=== PATIENT | male | born 1960 | race Caucasian/White ===

== ENCOUNTER 2020-08-10 20:47 | Inpatient (IN) | payer MEDICAID ==
[~2020-08-10] VITALS: Ht 165.1 cm; Wt 62.6 kg
[2020-08-10 20:00] VITALS: BP 140/88
--- NOTE | 2020-08-10 20:30 | NUR ---
Admitted patient from [facility], with history of Stroke, Anoxic brain encephalopathy, DM, seizure, Atrial Fibrillation, Atherosclerosis of the Aorta, COPD, history of major depression, diverticulosis of the colon, Tobacco use, myoclonus, left ventricular diastolic dysfunction, Lactic acidosis, respiratory failure, currently on tracheostomy on cool aerosol, Gastrostomy placement, on GT feeding of vital 1.2 @ 75ml/hr [id number] infusing well, no nausea or vomiting noted, noted with multiple discolorations of the left and right arms and pitting edema 3+ on both hands, elevated on pillows. Trach is intact and patent, suctioned with yellow thick secretions,no respiratory distress noted. Patient is is non- verbal and non-responsive, noted with a tattoo on his left chest, Noted with left plantar corn- no treatment indicated right now, will monitor. Initiated treatments to sacral area open skin, left forearm scab, and left antecubital open skin, and both heels dryness. Turned and repositioned patient, kept clean and comfortable.
[2020-08-10] MEDS ORDERED: levETIRAcetam 500 MG TABLET PO SCH (22:30)
[2020-08-10] MEDS: DOCUSATE SODIUM 100 MG/10 ML LIQUID UDC GT SCH (22:30)
[2020-08-10] MEDS ORDERED: POLYVINYL ALCOHOL OPHT DROPS 15 ML BOTTLE EACHEYE PRN (22:30)
[2020-08-10] MEDS: COD LIVER OIL/ZINC OXIDE OINT 113 GM TUBE TOP SCH (22:30)
[2020-08-10] MEDS ORDERED: ONDANSETRON 4 MG/2 ML VIAL IV PRN (22:30)
[2020-08-10] MEDS: VITAL AF 1.2 1,000 ML LIQUID GT PRN (23:00)
[2020-08-11] VITALS: BP 131/83
[2020-08-11] MEDS: BLOOD SUGAR DIAGNOSTIC 1 EACH STRIP VI SCH ×5 (00:54→23:29)
[2020-08-11] MEDS: INSULIN REGULAR, HUMAN 300 UNIT/3 ML VIAL SQ PRN ×4 (00:55→18:03)
[2020-08-11] MEDS: COD LIVER OIL/ZINC OXIDE OINT 113 GM TUBE TOP SCH ×5 (02:45→21:00)
[2020-08-11] MEDS: VITAMINS A AND D OINT TP SCH ×3 (02:45→21:00)
[2020-08-11] MEDS: NEOMY/BACITRAC/POLYMI OINT 28.35 GM TUBE TOP SCH ×4 (02:45→09:00)
[2020-08-11] MEDS: ACETAMINOPHEN 650 MG/20.3 ML LIQUID UDC GT PRN (05:00)
[2020-08-11 06:00] VITALS: BP 150/83
--- NOTE | 2020-08-11 07:11 | NUR ---
Left Message to patient's daughter to call back.
[2020-08-11 07:38] VITALS: BP 167/83
[2020-08-11] MEDS: THIAMINE HCL 100 MG TABLET GT SCH (09:00)
[2020-08-11] MEDS: FAMOTIDINE 20 MG TABLET GT SCH ×2 (09:00→21:00)
[2020-08-11] MEDS ORDERED: CHLORHEXIDINE GLUCONATE 15 ML MOUTHWASH MM SCH (09:00)
[2020-08-11] MEDS: CHLORHEXIDINE GLUCONATE 4% TOP SOL 118 ML TP SCH (09:00)
[2020-08-11] MEDS ORDERED: levETIRAcetam 500 MG TABLET GT SCH (09:00)
[2020-08-11] MEDS ORDERED: TUBERCULIN,PURIF.PROT.DERIV. 5 TU/0.1 ML TEST ID SCH (09:00)
[2020-08-11] MEDS ORDERED: MISCELLANEOUS MED XX SCH (09:00)
[2020-08-11] MEDS: LABETALOL HCL 100 MG TABLET GT SCH (09:00)
[2020-08-11] MEDS: DOCUSATE SODIUM 100 MG/10 ML LIQUID UDC GT SCH ×2 (09:00→21:00)
--- NOTE | 2020-08-11 10:59 | NUR ---
WOUND CARE CONSULT: PT PRESENTS WITH CALLUS TO LEFT PLANTAR FOOT AND SACRAL STAGE 2 ULCER WITH SURROUNDING INTACT DEEP TISSUE INJURY, PRESENT ON ADMISSION. RECOMMENDATIONS MADE FOR SKIN PROTECTION AND WOUND CARE. DISCUSSED WITH NURSING STAFF. STAGE 2 ULCER MEASURES 0.5CM X 0.5CM X 0.1CM WITH NO DRAINAGE, NO ODOR AND PERIWOUND INTACT DTI (DARK RED). RECOMMEND USE HYDROGEL AND FOAM DRESSING, OFFLOADING. PT IS ON FIRST STEP [facility] AIRLOSS MATTRESS. IN AGREEMENT WITH PLAN OF CARE.
[2020-08-11 12:00] VITALS: BP 139/79
--- NOTE | 2020-08-11 12:53 | NUR ---
Seen and examined by the wound home day care provider with new orders noted.Pt and Ot evaluation done,new orders noted and carried out.
[2020-08-11] MEDS ORDERED: HYDROGEN PEROXIDE 3% 118 ML BOTTLE TP PRN (13:45)
[2020-08-11 17:28] VITALS: BP 116/76
[2020-08-11 17:38] LABS: ABG BASE EXCESS 3.3 mmol/L; ABG HCO3 27.6 mmol/L; ABG PCO2 41.1 mmHg (35.0-45.0); ABG PH 7.445 (7.350-7.450); ABG PO2 70.7 mmHg (75.0-100.0); ABG SITE RIGHT RADIAL; ABG TOTAL HEMOGLOBIN 14.2 G/dL (13.5-18.0); COHb 1.4 % (0.5-1.5); MetHb 0.2 % (0.0-1.5); O2Hb 92.1 % (94.0-97.0)
[2020-08-11] MEDS ORDERED: IPRATROPIUM BROMIDE 0.5 MG/2.5 ML NEBU NEB PRN (18:30)
[2020-08-11] MEDS ORDERED: ALBUTEROL SULFATE 2.5 MG/3 ML NEBU NEB PRN (18:30)
--- NOTE | 2020-08-11 18:31 | NUR ---
Seen by Dr Peralta,notified about pt condition with new orders noted.evaluate the EKG,ABG and CXR done for tachycardia and sob,no further orders noted.
--- NOTE | 2020-08-11 18:33 | NUR ---
Dr Jimenez Release Coordinator notified regarding the consult for L plantar foot skin changes.He examined the pictures and will evaluate patient after he is out of isolation.
[2020-08-11 20:00] VITALS: BP 109/73
[2020-08-11] MEDS: CHLORHEXIDINE GLUCONATE 15 ML MOUTHWASH MM SCH (21:00)
[2020-08-11] MEDS: ATORVASTATIN 40 MG TABLET GT SCH (21:00)
[2020-08-11] MEDS ORDERED: ATORVASTATIN 40 MG TABLET PO SCH (21:00)
[2020-08-11] MEDS: COD LIVER OIL/ZINC OXIDE OINT 113 GM TUBE TP SCH (21:00)
[2020-08-11] MEDS: MINERAL OIL/PETROLAT OPHT OINT 3.5 GM TUBE EACHEYE SCH (21:00)
[2020-08-11] MEDS: levETIRAcetam 500 MG/5 ML LIQUID UDC GT SCH (21:00)
[2020-08-11] MEDS: HYDROGEN PEROXIDE 3% 118 ML BOTTLE TP SCH (21:50)
[2020-08-11] MEDS: VITAL AF 1.2 1,000 ML LIQUID GT PRN (23:00)
[2020-08-12] VITALS: BP 134/71
[2020-08-12] MEDS: ACETAMINOPHEN 650 MG/20.3 ML LIQUID UDC GT PRN ×2 (02:00→05:00)
[2020-08-12 04:45] VITALS: BP 143/77
[2020-08-12] MEDS: BLOOD SUGAR DIAGNOSTIC 1 EACH STRIP VI SCH ×3 (05:20→17:04)
[2020-08-12 05:22] LABS: BASOPHILS % (AUTO) 0.3 % (0.0-2.0); EOSINOPHILS # (AUTO) 0.1 K/uL (0.0-0.7); EOSINOPHILS % (AUTO) 1.4 % (0.0-7.0); HEMATOCRIT 31.5 % (36.7-47.1); HEMOGLOBIN 10.9 g/dL (12.5-16.3); LYMPHOCYTES # (AUTO) 1.5 K/uL (20.0-40.0); LYMPHOCYTES % (AUTO) 19.8 % (20.5-51.5); MEAN CORPUSCULAR HGB CONC 35 g/dL (32.5-36.3); MEAN CORPUSCULAR VOLUME 89.7 fL (73.0-96.2); MONOCYTES # (AUTO) 0.8 K/uL (2.0-10.0); NEUTROPHILS # (AUTO) 5.2 K/uL (1.8-8.9); NEUTROPHILS % (AUTO) 67.5 % (38.5-71.5); PLATELET COUNT (AUTO) 285 K/uL (152-348); RED BLOOD CELL COUNT(AUTO) 3.51 MIL/uL (4.06-5.63); WHITE BLOOD COUNT (AUTO) 7.7 K/uL (3.6-10.2)
[2020-08-12] MEDS ORDERED: VANCOMYCIN IV 1,000 MG in IV DEXTROSE 5% 250 ML IV ONE (06:00)
--- NOTE | 2020-08-12 06:00 | NUR ---
I called [facility] about the IV antibitic orders to check if meds are covered and If I can get it from the E- kit but the person who answered stated that IV pharmacist are not in yet.
--- NOTE | 2020-08-12 06:00 | NUR ---
Patient noted to be hot to touch, checked temperature and is 102 axillary, rechecked rectally and still 102*F, trach intact and patent, no respiratory distress, suctioned with thick secretions. Cold compress done, Tylenol given as ordered, called Dr. Bauer, awaiting for Doctor to call back. Addendum: 08/12/20 at 0604 by ISRRAEL ESTEVES RN Dr. Bauer called back with new orders to do blood cultures X 2, CXR, Vancomycin 1 gram IVPB X1, then Pharmacy to dose and Zosyn 3. 375 grams IVPB every 8 hours per protocol for fever, noted and carried out. Addendum: 08/12/20 at 0605 by ISRRAEL ESTEVES RN Paged Dr. Bauer RE: To clarify Zosyn order, Patient is allergic to Penicillin and ordered Zosyn.
--- NOTE | 2020-08-12 06:24 | NUR ---
Dr. Bauer called and he discontinued Zosyn and ordered Merrem 500mg IVPB X 1 dose.
[2020-08-12 07:39] VITALS: BP 151/81
[2020-08-12 07:53] LABS: ALANINE AMINOTRANSFERASE 74 U/L (16-63); ALKALINE PHOSPHATASE 157 U/L (50-136); ASPARTATE AMINOTRANSFERASE 45 U/L (15-37); BILIRUBIN,TOTAL 0.2 mg/dL (0.2-1.0); CARBON DIOXIDE 30 mmol/L (21-32); CHLORIDE 96 mmol/L (98-107); CREATININE 0.5 mg/dL (0.6-1.3); GLUCOSE 179 mg/dL (74-106); PHOSPHOROUS 2.8 mg/dL (2.5-4.9); POTASSIUM 3.9 mmol/L (3.5-5.1); TOTAL PROTEIN, SERUM 6.8 g/dL (6.4-8.2); UREA NITROGEN, BLOOD 23 mg/dL (7-18)
--- NOTE | 2020-08-12 08:16 | NUR ---
I spoke with patient's daughter Janis and notified her of patient having fever and new antibiotic order and she agreed with the plan of care,.
[2020-08-12] MEDS: THIAMINE HCL 100 MG TABLET GT SCH (09:00)
[2020-08-12] MEDS ORDERED: MEROPENEM 500 MG in IV NORMAL SALINE 50 ML IV ONE (09:00)
[2020-08-12] MEDS: LABETALOL HCL 100 MG TABLET GT SCH (09:00)
[2020-08-12] MEDS: HYDROGEN PEROXIDE 3% 118 ML BOTTLE TP SCH ×2 (09:14→21:15)
[2020-08-12] MEDS: DOCUSATE SODIUM 100 MG/10 ML LIQUID UDC GT SCH ×2 (09:17→21:00)
[2020-08-12] MEDS: levETIRAcetam 500 MG/5 ML LIQUID UDC GT SCH ×2 (09:17→21:00)
[2020-08-12] MEDS: COD LIVER OIL/ZINC OXIDE OINT 113 GM TUBE TOP SCH ×4 (09:17→21:00)
[2020-08-12] MEDS: CHLORHEXIDINE GLUCONATE 15 ML MOUTHWASH MM SCH ×2 (09:17→21:00)
[2020-08-12] MEDS: FAMOTIDINE 20 MG TABLET GT SCH ×2 (09:17→21:00)
[2020-08-12] MEDS: TERAZOSIN 1 MG CAPSULE GT SCH (09:17)
[2020-08-12] MEDS: PHENOBARBITAL 32.4 MG TABLET GT SCH (09:17)
[2020-08-12] MEDS: NEOMY/BACITRAC/POLYMI OINT 28.35 GM TUBE TOP SCH ×2 (09:21)
[2020-08-12] MEDS: COD LIVER OIL/ZINC OXIDE OINT 113 GM TUBE TP SCH ×2 (09:22→21:00)
[2020-08-12] MEDS: CHLORHEXIDINE GLUCONATE 4% TOP SOL 118 ML TP SCH (09:22)
[2020-08-12] MEDS: VITAMINS A AND D OINT TP SCH ×2 (09:23→21:00)
[2020-08-12] MEDS: ENOXAPARIN SODIUM 40 MG/0.4 ML DISP.SYRIN SQ SCH (10:51)
[2020-08-12] MEDS ORDERED: HYDROGEN PEROXIDE 3% 118 ML BOTTLE TP PRN (12:24)
[2020-08-12] MEDS: VITAL AF 1.2 1,000 ML LIQUID GT PRN (12:39)
[2020-08-12 13:08] VITALS: BP 136/75
--- NOTE | 2020-08-12 13:42 | NUR ---
Weighing Station Operator Assessment: 10:45am: This SW completed patient's initial assessment today. Patient is non-verbal, unresponsive, and therefore patient was not able to gather any information from the patient. SW called patients' daughter Janis, , and completed the assessment with Janis over the telephone. Patient is a 59 year old male, who was living in his home in [place], independent with all ADL's and IADL's, and working prior to his sudden medical decline. Janis reported that patient has a roommate, Carolyn, that lives in his house. Janis stated that patient was a very kind, fun-loving, and positive person. Patient's family includes 2 children (Janis and Daniel), 2 brothers (Jamal and Fernie) and his father and mother. Patient is and his ex- lives in [facility], although she is aware of his current medical condition. Family presents cooperative and supportive. SW discussed the admission paperwork with Janis, and Janis stated that she will go ahead and sign the forms. SW to coordinate getting the forms to Janis to sign. SW also discussed monthly IDT meetings, stating that the first one for the patient will be held on 08/17. Janis expressed desire to participate, and SW to coordinate. Healthcare Directive and Conservatorship discussed, and Janis stated that she thinks that the patient may have assigned Carolyn to be a POA, but she was not sure. This SW to follow up. However, Janis stated that they all makes decision together as a family. Patient's code status discussed, and Janis stated that the family's wishes are for patient to be a Full Code. ZOOM video calls discussed with Janis, and SW to email Janis the guidelines for ZOOM. SW to follow-up with Carolyn for additional information, and to follow up with Janis to coordinate the review and signatures for the admission paperwork.
--- NOTE | 2020-08-12 13:53 | NUR ---
11:46am: SW called patient's roommate Carolyn, . Carolyn was available and receptive to speaking with this SW. Carolyn stated that she, and her 19 year old son, have been living in the patient's home for 4 years. SW inquired about POA assignment, and Carolyn stated that she was recently informed by patient's corporate lawyer that patient had assigned her as POA, however she was not sure of the details. Carolyn also stated that she has known the patient for a very long time and feels like they are all family, and therefore she does not make decision on her own, but instead always involved Janis in all decisions. Carolyn stated that does not have any paperwork from the mica laminating machine feeder, and prefers for all coordination of care to go through Janis and patient's family. Carolyn was very cooperative and supportive. SW to coordinate with patient's family.
[2020-08-12 16:58] VITALS: BP 144/82
[2020-08-12] MEDS: INSULIN REGULAR, HUMAN 300 UNIT/3 ML VIAL SQ PRN (17:08)
[2020-08-12 20:00] VITALS: BP 133/72
[2020-08-12] MEDS: VANCOMYCIN IV 1,000 MG in IV DEXTROSE 5% 250 ML IV SCH (20:00)
[2020-08-12] MEDS: MINERAL OIL/PETROLAT OPHT OINT 3.5 GM TUBE EACHEYE SCH (21:00)
[2020-08-12] MEDS: ATORVASTATIN 40 MG TABLET GT SCH (21:00)
--- NOTE | 2020-08-12 22:00 | NUR ---
Patient is on Vancomycin for fever, no adverse reactions noted. Afebrile, still noted with yellow thick secretions, no signs of any respiratory distress noted, Fluids given as ordered, turned and repositioned, kept clean and comfortable.
[2020-08-13] VITALS: BP 143/76
[2020-08-13] MEDS: BLOOD SUGAR DIAGNOSTIC 1 EACH STRIP VI SCH ×4 (00:42→18:11)
[2020-08-13 04:16] VITALS: BP 150/79
[2020-08-13] MEDS: VITAL AF 1.2 1,000 ML LIQUID GT PRN (04:30)
[2020-08-13] MEDS: INSULIN REGULAR, HUMAN 300 UNIT/3 ML VIAL SQ PRN ×2 (05:41→11:36)
[2020-08-13] MEDS: HYDROGEN PEROXIDE 3% 118 ML BOTTLE TP SCH ×2 (07:33→21:40)
[2020-08-13 07:35] VITALS: BP 153/85
[2020-08-13 07:58] LABS: CARBON DIOXIDE 35 mmol/L (21-32); CHLORIDE 97 mmol/L (98-107); CREATININE 0.4 mg/dL (0.6-1.3); GLUCOSE 202 mg/dL (74-106); POTASSIUM 3.9 mmol/L (3.5-5.1); UREA NITROGEN, BLOOD 16 mg/dL (7-18)
[2020-08-13] MEDS: VANCOMYCIN IV 1,000 MG in IV DEXTROSE 5% 250 ML IV SCH ×2 (08:20→21:00)
[2020-08-13] MEDS: CHLORHEXIDINE GLUCONATE 4% TOP SOL 118 ML TP SCH (09:00)
[2020-08-13] MEDS: COD LIVER OIL/ZINC OXIDE OINT 113 GM TUBE TP SCH ×2 (09:00→21:39)
[2020-08-13] MEDS: VITAMINS A AND D OINT TP SCH ×2 (09:00→21:39)
[2020-08-13] MEDS: DOCUSATE SODIUM 100 MG/10 ML LIQUID UDC GT SCH ×2 (09:08→21:38)
[2020-08-13] MEDS: TERAZOSIN 1 MG CAPSULE GT SCH (09:09)
[2020-08-13] MEDS: FAMOTIDINE 20 MG TABLET GT SCH ×2 (09:10→21:38)
[2020-08-13] MEDS: levETIRAcetam 500 MG/5 ML LIQUID UDC GT SCH ×2 (09:10→21:38)
[2020-08-13] MEDS: THIAMINE HCL 100 MG TABLET GT SCH (09:15)
[2020-08-13] MEDS: LABETALOL HCL 100 MG TABLET GT SCH (09:15)
[2020-08-13] MEDS: CHLORHEXIDINE GLUCONATE 15 ML MOUTHWASH MM SCH ×2 (09:15→21:38)
[2020-08-13] MEDS: ENOXAPARIN SODIUM 40 MG/0.4 ML DISP.SYRIN SQ SCH (09:16)
[2020-08-13] MEDS: COD LIVER OIL/ZINC OXIDE OINT 113 GM TUBE TOP SCH ×4 (09:24→21:39)
[2020-08-13] MEDS: PHENOBARBITAL 32.4 MG TABLET GT SCH (09:26)
[2020-08-13] MEDS: NEOMY/BACITRAC/POLYMI OINT 28.35 GM TUBE TOP SCH ×2 (09:30)
--- NOTE | 2020-08-13 10:42 | NUR ---
DELANEY called patient's granddaughter Janis, . Janis was available and receptive to speaking with this SW. DELANEY inquired about Janis's availability for picking up with admission paperwork for review and signature. Janis stated that she will be available on Thursday 08/16 around 3:30pm to stop by the hospital lobby and machine operator hop picker the paperwork. DELANEY agreed, and stated that papers will be ready for Janis on Sunday afternoon. Addendum: 08/16/20 at 1633 by FEDERICO BALTAZAR Correction: Janis is patient's daughter, not the granddaughter
[2020-08-13 11:44] VITALS: BP 149/82
[2020-08-13] MEDS ORDERED: DEXTROSE 50% 50 ML DISP.SYRIN IV PRN (15:00)
[2020-08-13 17:00] VITALS: BP 150/76
--- NOTE | 2020-08-13 18:54 | NUR ---
Seen by Dr. Peralta, new orders carried out, cxr,cbc, bmp, procalcitonin, start Merrem 1G, Iv q8hrs x7 days.
[2020-08-13 20:00] VITALS: BP 131/73
[2020-08-13] MEDS: MEROPENEM 1 G in IV NORMAL SALINE 100 ML IV SCH (20:08)
[2020-08-13] MEDS: MINERAL OIL/PETROLAT OPHT OINT 3.5 GM TUBE EACHEYE SCH (21:38)
[2020-08-13] MEDS: ATORVASTATIN 40 MG TABLET GT SCH (21:38)
[2020-08-14] MEDS: BLOOD SUGAR DIAGNOSTIC 1 EACH STRIP VI SCH ×5 (00:23→23:48)
[2020-08-14] MEDS: INSULIN REGULAR, HUMAN 300 UNIT/3 ML VIAL SQ PRN ×4 (00:25→17:42)
--- NOTE | 2020-08-14 03:00 | NUR ---
started on merrem iv for fever, no adverse reaction noted,continue on vancomycin iv for fever, no adverse reaction noted, afebrile, no respiratory distress noted.
[2020-08-14] MEDS: MEROPENEM 1 G in IV NORMAL SALINE 100 ML IV SCH ×3 (04:05→21:30)
[2020-08-14 07:32] VITALS: BP 150/84
[2020-08-14] MEDS: VANCOMYCIN IV 1,000 MG in IV DEXTROSE 5% 250 ML IV SCH (08:00)
[2020-08-14] MEDS: CHLORHEXIDINE GLUCONATE 15 ML MOUTHWASH MM SCH ×2 (09:00→21:00)
[2020-08-14] MEDS: HYDROGEN PEROXIDE 3% 118 ML BOTTLE TP SCH ×2 (09:00→21:35)
[2020-08-14] MEDS: CHLORHEXIDINE GLUCONATE 4% TOP SOL 118 ML TP SCH (09:00)
[2020-08-14] MEDS: NEOMY/BACITRAC/POLYMI OINT 28.35 GM TUBE TOP SCH ×2 (09:00)
[2020-08-14] MEDS: COD LIVER OIL/ZINC OXIDE OINT 113 GM TUBE TP SCH ×2 (09:00→21:11)
[2020-08-14] MEDS: VITAMINS A AND D OINT TP SCH ×2 (09:00→21:11)
[2020-08-14] MEDS: DOCUSATE SODIUM 100 MG/10 ML LIQUID UDC GT SCH ×2 (09:05→21:06)
[2020-08-14] MEDS: levETIRAcetam 500 MG/5 ML LIQUID UDC GT SCH ×2 (09:06→21:06)
[2020-08-14] MEDS: TERAZOSIN 1 MG CAPSULE GT SCH (09:16)
[2020-08-14] MEDS: LABETALOL HCL 100 MG TABLET GT SCH (09:17)
[2020-08-14] MEDS: PHENOBARBITAL 32.4 MG TABLET GT SCH (09:17)
[2020-08-14] MEDS: FAMOTIDINE 20 MG TABLET GT SCH ×2 (09:17→21:10)
[2020-08-14] MEDS: THIAMINE HCL 100 MG TABLET GT SCH (09:18)
[2020-08-14] MEDS: ENOXAPARIN SODIUM 40 MG/0.4 ML DISP.SYRIN SQ SCH (09:20)
[2020-08-14] MEDS: COD LIVER OIL/ZINC OXIDE OINT 113 GM TUBE TOP SCH ×4 (09:21→21:11)
[2020-08-14 09:39] LABS: CARBON DIOXIDE 35 mmol/L (21-32); CHLORIDE 98 mmol/L (98-107); CREATININE 0.4 mg/dL (0.6-1.3); GLUCOSE 186 mg/dL (74-106); POTASSIUM 3.8 mmol/L (3.5-5.1); UREA NITROGEN, BLOOD 16 mg/dL (7-18)
[2020-08-14 13:00] VITALS: BP 140/76
--- NOTE | 2020-08-14 15:45 | NUR ---
video chat done with pt's daughter.
--- NOTE | 2020-08-14 16:00 | NUR ---
Spoke to Dr Rios to F/u the neurology consult ,he will came on sunday to evaluate the patient.
--- NOTE | 2020-08-14 18:00 | NUR ---
New orders for insert midline ,Midline inserted on the R upper arm by Wilfredo Champion,procedure tolerated well,midline patent,new orders for flushing and dressing change per protocol.
--- NOTE | 2020-08-14 19:00 | NUR ---
Continue on Ivatb ,merren and vancomycin for elevated temp,no adverse reaction noted.
[2020-08-14 20:00] VITALS: BP 134/68
[2020-08-14] MEDS: VANCOMYCIN IV 1,250 MG in IV DEXTROSE 5% 250 ML IV SCH (20:11)
[2020-08-14] MEDS: MINERAL OIL/PETROLAT OPHT OINT 3.5 GM TUBE EACHEYE SCH (21:06)
[2020-08-14] MEDS: ATORVASTATIN 40 MG TABLET GT SCH (21:10)
[2020-08-14] MEDS: VITAL AF 1.2 1,000 ML LIQUID GT PRN (23:49)
[2020-08-15] MEDS: MEROPENEM 1 G in IV NORMAL SALINE 100 ML IV SCH (04:09)
[2020-08-15] MEDS: BLOOD SUGAR DIAGNOSTIC 1 EACH STRIP VI SCH ×4 (05:29→23:37)
[2020-08-15 05:51] LABS: CARBON DIOXIDE 33 mmol/L (21-32); CHLORIDE 95 mmol/L (98-107); CREATININE 0.5 mg/dL (0.6-1.3); GLUCOSE 174 mg/dL (74-106); POTASSIUM 3.9 mmol/L (3.5-5.1); UREA NITROGEN, BLOOD 14 mg/dL (7-18)
--- NOTE | 2020-08-15 06:06 | NUR ---
right upper arm mid line patent, flushed per protocol, vancomycin 1250mg iv started, no adverse reaction noted.
[2020-08-15] MEDS: VANCOMYCIN IV 1,250 MG in IV DEXTROSE 5% 250 ML IV SCH (08:00)
[2020-08-15 08:14] VITALS: BP 119/88
[2020-08-15] MEDS: DOCUSATE SODIUM 100 MG/10 ML LIQUID UDC GT SCH ×2 (09:03→20:49)
[2020-08-15] MEDS: TERAZOSIN 1 MG CAPSULE GT SCH (09:06)
[2020-08-15] MEDS: THIAMINE HCL 100 MG TABLET GT SCH (09:06)
[2020-08-15] MEDS: PHENOBARBITAL 32.4 MG TABLET GT SCH (09:06)
[2020-08-15] MEDS: FAMOTIDINE 20 MG TABLET GT SCH ×2 (09:06→20:49)
[2020-08-15] MEDS: levETIRAcetam 500 MG/5 ML LIQUID UDC GT SCH ×2 (09:06→20:49)
[2020-08-15] MEDS: LABETALOL HCL 100 MG TABLET GT SCH (09:06)
[2020-08-15] MEDS: CHLORHEXIDINE GLUCONATE 15 ML MOUTHWASH MM SCH ×2 (09:06→20:49)
[2020-08-15] MEDS: NEOMY/BACITRAC/POLYMI OINT 28.35 GM TUBE TOP SCH ×2 (09:07)
[2020-08-15] MEDS: CHLORHEXIDINE GLUCONATE 4% TOP SOL 118 ML TP SCH (09:07)
[2020-08-15] MEDS: COD LIVER OIL/ZINC OXIDE OINT 113 GM TUBE TP SCH ×2 (09:07→20:50)
[2020-08-15] MEDS: VITAMINS A AND D OINT TP SCH ×2 (09:07→20:50)
[2020-08-15] MEDS: COD LIVER OIL/ZINC OXIDE OINT 113 GM TUBE TOP SCH ×4 (09:07→20:50)
[2020-08-15] MEDS: ENOXAPARIN SODIUM 40 MG/0.4 ML DISP.SYRIN SQ SCH (09:07)
[2020-08-15] MEDS: HYDROGEN PEROXIDE 3% 118 ML BOTTLE TP SCH ×2 (10:20→21:26)
[2020-08-15] MEDS: INSULIN REGULAR, HUMAN 300 UNIT/3 ML VIAL SQ PRN ×2 (11:52→17:37)
[2020-08-15] MEDS: VITAL AF 1.2 1,000 ML LIQUID GT PRN (12:35)
--- NOTE | 2020-08-15 17:53 | NUR ---
Vancomycin and Merren discontinue new orders for levaquin carried out for pneumonia.
--- NOTE | 2020-08-15 18:00 | NUR ---
Dr Rios neurologist didn't see the patient today,will f/u tomorrow.
[2020-08-15] MEDS: levoFLOXacin 500 MG TABLET GT SCH (20:00)
[2020-08-15 20:38] VITALS: BP 143/71
[2020-08-15] MEDS: MINERAL OIL/PETROLAT OPHT OINT 3.5 GM TUBE EACHEYE SCH (20:49)
[2020-08-15] MEDS: ATORVASTATIN 40 MG TABLET GT SCH (20:49)
[2020-08-16] MEDS: BLOOD SUGAR DIAGNOSTIC 1 EACH STRIP VI SCH ×3 (05:23→17:19)
[2020-08-16 06:44] LABS: BASOPHILS % (AUTO) 0.8 % (0.0-2.0); EOSINOPHILS # (AUTO) 0.1 K/uL (0.0-0.7); EOSINOPHILS % (AUTO) 3.1 % (0.0-7.0); HEMATOCRIT 32.4 % (36.7-47.1); HEMOGLOBIN 11.2 g/dL (12.5-16.3); LYMPHOCYTES # (AUTO) 1.3 K/uL (20.0-40.0); MEAN CORPUSCULAR HEMOGLOBIN 30.8 uug (23.8-33.4); MEAN CORPUSCULAR HGB CONC 35 g/dL (32.5-36.3); MEAN CORPUSCULAR VOLUME 88.9 fL (73.0-96.2); MONOCYTES # (AUTO) 0.5 K/uL (2.0-10.0); MONOCYTES % (AUTO) 11.6 % (0.0-11.0); NEUTROPHILS # (AUTO) 2.3 K/uL (1.8-8.9); NEUTROPHILS % (AUTO) 54.5 % (38.5-71.5); PLATELET COUNT (AUTO) 260 K/uL (152-348); RED BLOOD CELL COUNT(AUTO) 3.65 MIL/uL (4.06-5.63); WHITE BLOOD COUNT (AUTO) 4.2 K/uL (3.6-10.2)
[2020-08-16 07:07] LABS: CARBON DIOXIDE 34 mmol/L (21-32); CHLORIDE 95 mmol/L (98-107); CREATININE 0.5 mg/dL (0.6-1.3); GLUCOSE 209 mg/dL (74-106); UREA NITROGEN, BLOOD 18 mg/dL (7-18)
[2020-08-16 07:30] VITALS: BP 151/78
[2020-08-16] MEDS: DOCUSATE SODIUM 100 MG/10 ML LIQUID UDC GT SCH ×2 (08:30→21:47)
[2020-08-16] MEDS: levETIRAcetam 500 MG/5 ML LIQUID UDC GT SCH ×2 (08:32→21:47)
[2020-08-16] MEDS: LABETALOL HCL 100 MG TABLET GT SCH (08:32)
[2020-08-16] MEDS: THIAMINE HCL 100 MG TABLET GT SCH (08:32)
[2020-08-16] MEDS: TERAZOSIN 1 MG CAPSULE GT SCH (08:32)
[2020-08-16] MEDS: PHENOBARBITAL 32.4 MG TABLET GT SCH (08:32)
[2020-08-16] MEDS: FAMOTIDINE 20 MG TABLET GT SCH ×2 (08:32→21:47)
[2020-08-16] MEDS: CHLORHEXIDINE GLUCONATE 15 ML MOUTHWASH MM SCH ×2 (08:33→21:47)
[2020-08-16] MEDS: ENOXAPARIN SODIUM 40 MG/0.4 ML DISP.SYRIN SQ SCH (08:34)
[2020-08-16] MEDS: COD LIVER OIL/ZINC OXIDE OINT 113 GM TUBE TP SCH ×2 (08:34→21:48)
[2020-08-16] MEDS: VITAMINS A AND D OINT TP SCH ×2 (08:34→21:48)
[2020-08-16] MEDS: NEOMY/BACITRAC/POLYMI OINT 28.35 GM TUBE TOP SCH ×2 (08:34)
[2020-08-16] MEDS: CHLORHEXIDINE GLUCONATE 4% TOP SOL 118 ML TP SCH (08:34)
[2020-08-16] MEDS: COD LIVER OIL/ZINC OXIDE OINT 113 GM TUBE TOP SCH ×4 (08:34→21:48)
[2020-08-16] MEDS: HYDROGEN PEROXIDE 3% 118 ML BOTTLE TP SCH ×2 (09:00→21:46)
--- NOTE | 2020-08-16 11:00 | NUR ---
Ct scan of the head without contrast done, Dr. Rios notified regarding neurology consult and ct scan result, stated " I will be there later today"
[2020-08-16] MEDS: INSULIN REGULAR, HUMAN 300 UNIT/3 ML VIAL SQ PRN ×2 (11:47→17:20)
--- NOTE | 2020-08-16 12:42 | NUR ---
SEEN BY GLORIA BRAN WITH NO NEW ORDER.
[2020-08-16] MEDS: levoFLOXacin 500 MG TABLET GT SCH (14:54)
--- NOTE | 2020-08-16 15:27 | NUR ---
ZOOM PROVIDED TO FAMILY.
--- NOTE | 2020-08-16 16:29 | NUR ---
Seen by Dr. Rios, new orders carried out, check phenobarbital level now, start phenobarbital 276mg via gt daily, daughter Janis notified of patient's condition.
--- NOTE | 2020-08-16 16:30 | NUR ---
SW called patient's daughter Janis, , to follow-up with her about picking up the admission paperwork for review and signing. Janis was not available, and therefore this SW left Janis a voicemail message. Per previous discussion, Janis had stated that she would come by Thursday 08/16 afternoon to spanish moss picker the papers for review and signature, however Janis had not come by. DELANEY asked Janis to call this SW back to reschedule a day/time that Janis can come by to get the admission paperwork.
--- NOTE | 2020-08-16 16:40 | NUR ---
DELANEY received a call back from patient's daughter Janis, , and asked if she can stop by tomorrow around 2:30pm to garbage pick up man the paperwork. DELANEY expressed agreement. DELANEY will have admission paperwork ready for Janis to garbage pick up man for review and signature.
[2020-08-16] MEDS: VITAL AF 1.2 1,000 ML LIQUID GT PRN (17:20)
--- NOTE | 2020-08-16 19:00 | NUR ---
Clarification of order made: d/c phenobarbital 276mg, continue with previous dose of 97.2mg via gtube daily. Dr. Rios notified of phenobarbital level 28.6
[2020-08-16] MEDS: ATORVASTATIN 40 MG TABLET GT SCH (21:47)
[2020-08-16] MEDS: MINERAL OIL/PETROLAT OPHT OINT 3.5 GM TUBE EACHEYE SCH (21:47)
[2020-08-16 22:52] VITALS: BP 134/72
[2020-08-17] MEDS: BLOOD SUGAR DIAGNOSTIC 1 EACH STRIP VI SCH ×5 (00:08→23:25)
[2020-08-17] MEDS: VITAL AF 1.2 1,000 ML LIQUID GT PRN ×2 (05:13→21:34)
[2020-08-17] MEDS: INSULIN REGULAR, HUMAN 300 UNIT/3 ML VIAL SQ PRN ×3 (06:52→17:07)
[2020-08-17] MEDS: HYDROGEN PEROXIDE 3% 118 ML BOTTLE TP SCH ×2 (07:11→21:26)
[2020-08-17 07:44] VITALS: BP 140/82
[2020-08-17] MEDS: FAMOTIDINE 20 MG TABLET GT SCH ×2 (08:15→20:17)
[2020-08-17] MEDS: levETIRAcetam 500 MG/5 ML LIQUID UDC GT SCH ×2 (08:15→20:17)
[2020-08-17] MEDS: DOCUSATE SODIUM 100 MG/10 ML LIQUID UDC GT SCH ×2 (08:15→20:17)
[2020-08-17] MEDS: THIAMINE HCL 100 MG TABLET GT SCH (08:15)
[2020-08-17] MEDS: TERAZOSIN 1 MG CAPSULE GT SCH (08:15)
[2020-08-17] MEDS: LABETALOL HCL 100 MG TABLET GT SCH (08:15)
[2020-08-17] MEDS: CHLORHEXIDINE GLUCONATE 4% TOP SOL 118 ML TP SCH (09:00)
[2020-08-17] MEDS: PHENOBARBITAL 32.4 MG TABLET GT SCH (09:03)
[2020-08-17] MEDS: CHLORHEXIDINE GLUCONATE 15 ML MOUTHWASH MM SCH ×2 (09:14→20:17)
[2020-08-17] MEDS: VITAMINS A AND D OINT TP SCH ×2 (09:14→20:17)
[2020-08-17] MEDS: COD LIVER OIL/ZINC OXIDE OINT 113 GM TUBE TP SCH ×2 (09:14→20:17)
[2020-08-17] MEDS: COD LIVER OIL/ZINC OXIDE OINT 113 GM TUBE TOP SCH ×4 (09:14→20:17)
[2020-08-17] MEDS: ENOXAPARIN SODIUM 40 MG/0.4 ML DISP.SYRIN SQ SCH (09:17)
--- NOTE | 2020-08-17 14:34 | NUR ---
Patient's daughter Janis arrived at the hospital lobby, and this SW met with her and provided her with the admission paperwork. Janis stated she would review and sign them, and return them to this SW.
[2020-08-17] MEDS: levoFLOXacin 500 MG TABLET GT SCH (14:37)
--- NOTE | 2020-08-17 15:14 | NUR ---
Patient's daughter Janis returned the signed admission paperwork. This paperwork includes: Conditions of Admission, Patient Rights Acknowledgement, Documentation of Preferred Intensity of Care, Voluntary Prior Express Consent Form, Race and Ethnicity Patient Self-Identification, and the [facility] Agreement. Janis was also provided with a copy of the Patient's Bill of Rights.
--- NOTE | 2020-08-17 15:46 | NUR ---
INTERDISCIPLINARY PLAN OF CARE CONFERENCE was held this morning. Patient's daughter Janis participated in the meeting through speaker phone. Dr. Peralta and the Interdisciplinary team reviewed the current plan of care in detail. Patient was recently admitted to the subacute unit on 08/10/2020. RN reported on the patient's medical condition and recent treatments. See RN IDT conference notes. All disciplines reported on their current treatment plan. See all disciplines IDT notes and physician's progress notes for additional details. Janis's questions were addressed by the IDT team, and Janis expressed being in agreement with the current plan of care.
[2020-08-17 20:00] VITALS: BP 165/83
[2020-08-17] MEDS: hydrALAZINE HCL 25 MG TABLET GT PRN (20:16)
[2020-08-17] MEDS: MINERAL OIL/PETROLAT OPHT OINT 3.5 GM TUBE EACHEYE SCH (20:17)
[2020-08-17] MEDS: ATORVASTATIN 40 MG TABLET GT SCH (20:17)
[2020-08-17 21:00] VITALS: BP 148/87
[2020-08-17 21:03] VITALS: BP 165/83
[2020-08-18] MEDS: BLOOD SUGAR DIAGNOSTIC 1 EACH STRIP VI SCH ×4 (05:14→23:59)
[2020-08-18] MEDS: INSULIN REGULAR, HUMAN 300 UNIT/3 ML VIAL SQ PRN ×3 (06:27→17:21)
[2020-08-18 07:51] VITALS: BP 145/97
[2020-08-18 08:00] VITALS: BP 140/78
[2020-08-18] MEDS: DOCUSATE SODIUM 100 MG/10 ML LIQUID UDC GT SCH ×2 (08:59→21:57)
[2020-08-18] MEDS: TERAZOSIN 1 MG CAPSULE GT SCH (09:01)
[2020-08-18] MEDS: FAMOTIDINE 20 MG TABLET GT SCH ×2 (09:01→21:59)
[2020-08-18] MEDS: levETIRAcetam 500 MG/5 ML LIQUID UDC GT SCH ×2 (09:02→21:58)
[2020-08-18] MEDS: PHENOBARBITAL 32.4 MG TABLET GT SCH (09:02)
[2020-08-18] MEDS: THIAMINE HCL 100 MG TABLET GT SCH (09:03)
[2020-08-18] MEDS: CHLORHEXIDINE GLUCONATE 15 ML MOUTHWASH MM SCH ×2 (09:03→21:59)
[2020-08-18] MEDS: COD LIVER OIL/ZINC OXIDE OINT 113 GM TUBE TOP SCH ×4 (09:03→21:59)
[2020-08-18] MEDS: LABETALOL HCL 100 MG TABLET GT SCH (09:03)
[2020-08-18] MEDS: VITAMINS A AND D OINT TP SCH ×2 (09:04→21:59)
[2020-08-18] MEDS: COD LIVER OIL/ZINC OXIDE OINT 113 GM TUBE TP SCH ×2 (09:04→21:59)
[2020-08-18] MEDS: CHLORHEXIDINE GLUCONATE 4% TOP SOL 118 ML TP SCH (09:04)
[2020-08-18] MEDS: ENOXAPARIN SODIUM 40 MG/0.4 ML DISP.SYRIN SQ SCH (09:15)
[2020-08-18] MEDS: HYDROGEN PEROXIDE 3% 118 ML BOTTLE TP SCH ×2 (09:20→21:13)
[2020-08-18] MEDS: VITAL AF 1.2 1,000 ML LIQUID GT PRN (12:03)
[2020-08-18] MEDS: levoFLOXacin 500 MG TABLET GT SCH (14:16)
--- NOTE | 2020-08-18 15:50 | NUR ---
video chat done with pt's daughter.
[2020-08-18 20:05] VITALS: BP 127/75
[2020-08-18] MEDS: MINERAL OIL/PETROLAT OPHT OINT 3.5 GM TUBE EACHEYE SCH (21:56)
[2020-08-18] MEDS: ATORVASTATIN 40 MG TABLET GT SCH (21:58)
[2020-08-19] MEDS: BLOOD SUGAR DIAGNOSTIC 1 EACH STRIP VI SCH ×3 (06:00→17:11)
[2020-08-19] MEDS: INSULIN REGULAR, HUMAN 300 UNIT/3 ML VIAL SQ PRN ×4 (07:04→17:13)
[2020-08-19 08:01] VITALS: BP 135/75
[2020-08-19] MEDS: TERAZOSIN 1 MG CAPSULE GT SCH (09:07)
[2020-08-19] MEDS: levETIRAcetam 500 MG/5 ML LIQUID UDC GT SCH ×2 (09:07→21:00)
[2020-08-19] MEDS: FAMOTIDINE 20 MG TABLET GT SCH ×2 (09:07→21:00)
[2020-08-19] MEDS: DOCUSATE SODIUM 100 MG/10 ML LIQUID UDC GT SCH ×2 (09:07→21:00)
[2020-08-19] MEDS: PHENOBARBITAL 32.4 MG TABLET GT SCH (09:07)
[2020-08-19] MEDS: COD LIVER OIL/ZINC OXIDE OINT 113 GM TUBE TOP SCH ×4 (09:08→21:00)
[2020-08-19] MEDS: ENOXAPARIN SODIUM 40 MG/0.4 ML DISP.SYRIN SQ SCH (09:08)
[2020-08-19] MEDS: LABETALOL HCL 100 MG TABLET GT SCH (09:08)
[2020-08-19] MEDS: CHLORHEXIDINE GLUCONATE 15 ML MOUTHWASH MM SCH ×2 (09:08→21:00)
[2020-08-19] MEDS: COD LIVER OIL/ZINC OXIDE OINT 113 GM TUBE TP SCH ×2 (09:08→21:00)
[2020-08-19] MEDS: VITAMINS A AND D OINT TP SCH ×2 (09:08→21:00)
[2020-08-19] MEDS: CHLORHEXIDINE GLUCONATE 4% TOP SOL 118 ML TP SCH (09:08)
[2020-08-19] MEDS: THIAMINE HCL 100 MG TABLET GT SCH (09:08)
[2020-08-19] MEDS: HYDROGEN PEROXIDE 3% 118 ML BOTTLE TP SCH ×2 (09:29→21:14)
[2020-08-19] MEDS: levoFLOXacin 500 MG TABLET GT SCH (14:01)
[2020-08-19] MEDS: VITAL AF 1.2 1,000 ML LIQUID GT PRN (14:09)
[2020-08-19] MEDS: ATORVASTATIN 40 MG TABLET GT SCH (21:00)
[2020-08-19] MEDS: MINERAL OIL/PETROLAT OPHT OINT 3.5 GM TUBE EACHEYE SCH (21:00)
[2020-08-19 22:12] VITALS: BP 146/70
[2020-08-20] MEDS: BLOOD SUGAR DIAGNOSTIC 1 EACH STRIP VI SCH ×4 (00:16→17:34)
[2020-08-20] MEDS: INSULIN REGULAR, HUMAN 300 UNIT/3 ML VIAL SQ PRN ×4 (00:17→17:35)
[2020-08-20] MEDS: VITAL AF 1.2 1,000 ML LIQUID GT PRN ×2 (03:17→17:34)
[2020-08-20] MEDS: HYDROGEN PEROXIDE 3% 118 ML BOTTLE TP SCH ×2 (07:13→21:00)
[2020-08-20] MEDS: VITAMINS A AND D OINT TP SCH ×2 (08:13→21:51)
[2020-08-20] MEDS: COD LIVER OIL/ZINC OXIDE OINT 113 GM TUBE TP SCH ×2 (08:14→21:51)
[2020-08-20] MEDS: CHLORHEXIDINE GLUCONATE 4% TOP SOL 118 ML TP SCH (08:14)
[2020-08-20] MEDS: COD LIVER OIL/ZINC OXIDE OINT 113 GM TUBE TOP SCH ×4 (08:14→21:51)
[2020-08-20] MEDS: levETIRAcetam 500 MG/5 ML LIQUID UDC GT SCH ×2 (08:32→21:50)
[2020-08-20] MEDS: TERAZOSIN 1 MG CAPSULE GT SCH (08:32)
[2020-08-20] MEDS: PHENOBARBITAL 32.4 MG TABLET GT SCH (08:32)
[2020-08-20] MEDS: DOCUSATE SODIUM 100 MG/10 ML LIQUID UDC GT SCH ×2 (08:32→21:50)
[2020-08-20] MEDS: FAMOTIDINE 20 MG TABLET GT SCH ×2 (08:32→21:50)
[2020-08-20] MEDS: LABETALOL HCL 100 MG TABLET GT SCH (08:33)
[2020-08-20] MEDS: CHLORHEXIDINE GLUCONATE 15 ML MOUTHWASH MM SCH ×2 (08:33→21:51)
[2020-08-20] MEDS: ENOXAPARIN SODIUM 40 MG/0.4 ML DISP.SYRIN SQ SCH (08:33)
[2020-08-20] MEDS: THIAMINE HCL 100 MG TABLET GT SCH (08:33)
[2020-08-20 08:34] VITALS: BP 135/80
[2020-08-20] MEDS: levoFLOXacin 500 MG TABLET GT SCH (14:07)
--- NOTE | 2020-08-20 15:21 | NUR ---
DR. COHN WAS CALLED AND AWARE OF PT'S BLOOD SUGARS AND CURRENT SLIDING SCALE AND THEN WILL BE REASSESSING PT. NEXT VISIT WHEN HE ASSESS PT.
[2020-08-20] MEDS: ATORVASTATIN 40 MG TABLET GT SCH (21:50)
[2020-08-20] MEDS: MINERAL OIL/PETROLAT OPHT OINT 3.5 GM TUBE EACHEYE SCH (21:50)
[2020-08-20 22:10] VITALS: BP 141/75
[2020-08-21] MEDS: INSULIN REGULAR, HUMAN 300 UNIT/3 ML VIAL SQ PRN ×4 (01:15→17:18)
[2020-08-21] MEDS: BLOOD SUGAR DIAGNOSTIC 1 EACH STRIP VI SCH ×4 (05:02→17:18)
[2020-08-21 07:35] VITALS: BP 150/75
[2020-08-21] MEDS: PHENOBARBITAL 32.4 MG TABLET GT SCH (08:03)
[2020-08-21] MEDS: DOCUSATE SODIUM 100 MG/10 ML LIQUID UDC GT SCH ×2 (08:03→21:56)
[2020-08-21] MEDS: TERAZOSIN 1 MG CAPSULE GT SCH (08:03)
[2020-08-21] MEDS: FAMOTIDINE 20 MG TABLET GT SCH ×2 (08:03→21:56)
[2020-08-21] MEDS: levETIRAcetam 500 MG/5 ML LIQUID UDC GT SCH ×2 (08:03→21:56)
[2020-08-21] MEDS: COD LIVER OIL/ZINC OXIDE OINT 113 GM TUBE TOP SCH ×4 (08:04→21:56)
[2020-08-21] MEDS: COD LIVER OIL/ZINC OXIDE OINT 113 GM TUBE TP SCH ×2 (08:04→21:56)
[2020-08-21] MEDS: CHLORHEXIDINE GLUCONATE 15 ML MOUTHWASH MM SCH ×2 (08:04→21:56)
[2020-08-21] MEDS: ENOXAPARIN SODIUM 40 MG/0.4 ML DISP.SYRIN SQ SCH (08:04)
[2020-08-21] MEDS: LABETALOL HCL 100 MG TABLET GT SCH (08:04)
[2020-08-21] MEDS: THIAMINE HCL 100 MG TABLET GT SCH (08:04)
[2020-08-21] MEDS: CHLORHEXIDINE GLUCONATE 4% TOP SOL 118 ML TP SCH (08:05)
[2020-08-21] MEDS: VITAMINS A AND D OINT TP SCH ×2 (08:05→21:56)
[2020-08-21] MEDS: VITAL AF 1.2 1,000 ML LIQUID GT PRN ×2 (08:31→21:59)
[2020-08-21] MEDS: HYDROGEN PEROXIDE 3% 118 ML BOTTLE TP SCH ×2 (09:00→21:33)
--- NOTE | 2020-08-21 10:46 | NUR ---
PT. WAS SEEN AND EXAMINED BY DR. COHN AND WITH NEW ORDERS CARRIED OUT.
--- NOTE | 2020-08-21 13:46 | NUR ---
MESSAGE LEFT TO DR. WEBSTER RE:CONTINUATION OF LEVAQUIN (ALREADY 5 DAYS)
[2020-08-21] MEDS: levoFLOXacin 500 MG TABLET GT SCH (14:00)
--- NOTE | 2020-08-21 17:00 | NUR ---
DR. WEBSTER CALLED BACK AND WITH NEW ORDER TO CONT LEVAQUIN TILL SUNDAY AND HE WILL REASSESS ON THAT DAY ,ALSO HE WAS AWARE OF RESULTS OF SPUTUM C&S.
[2020-08-21] MEDS: ATORVASTATIN 40 MG TABLET GT SCH (21:56)
[2020-08-21] MEDS: MINERAL OIL/PETROLAT OPHT OINT 3.5 GM TUBE EACHEYE SCH (21:56)
[2020-08-21 22:38] VITALS: BP 152/68
[2020-08-22] MEDS: BLOOD SUGAR DIAGNOSTIC 1 EACH STRIP VI SCH ×4 (00:51→17:53)
[2020-08-22] MEDS: INSULIN REGULAR, HUMAN 300 UNIT/3 ML VIAL SQ PRN ×4 (00:54→17:55)
--- NOTE | 2020-08-22 02:00 | NUR ---
Patient remains on Levaquin via gt for Pneumonia, no adverse reactions noted. Noted with thick yellow secretions, suctioned as needed, 02 sat is 97%, kept clean and comfortable, will continue monitor.
[2020-08-22] MEDS: ACETAMINOPHEN 650 MG/20.3 ML LIQUID UDC GT PRN (02:35)
[2020-08-22 07:30] VITALS: BP 162/88
[2020-08-22] MEDS: HYDROGEN PEROXIDE 3% 118 ML BOTTLE TP SCH ×2 (07:59→21:09)
[2020-08-22] MEDS: DOCUSATE SODIUM 100 MG/10 ML LIQUID UDC GT SCH ×2 (09:31→21:20)
[2020-08-22] MEDS: TERAZOSIN 1 MG CAPSULE GT SCH (09:32)
[2020-08-22] MEDS: levETIRAcetam 500 MG/5 ML LIQUID UDC GT SCH ×2 (09:32→21:20)
[2020-08-22] MEDS: FAMOTIDINE 20 MG TABLET GT SCH ×2 (09:32→21:20)
[2020-08-22] MEDS: PHENOBARBITAL 32.4 MG TABLET GT SCH (09:33)
[2020-08-22] MEDS: THIAMINE HCL 100 MG TABLET GT SCH (09:33)
[2020-08-22] MEDS: LABETALOL HCL 100 MG TABLET GT SCH (09:33)
[2020-08-22] MEDS: CHLORHEXIDINE GLUCONATE 15 ML MOUTHWASH MM SCH ×2 (09:33→21:20)
[2020-08-22] MEDS: COD LIVER OIL/ZINC OXIDE OINT 113 GM TUBE TP SCH ×2 (09:34→21:22)
[2020-08-22] MEDS: CHLORHEXIDINE GLUCONATE 4% TOP SOL 118 ML TP SCH (09:34)
[2020-08-22] MEDS: ENOXAPARIN SODIUM 40 MG/0.4 ML DISP.SYRIN SQ SCH (09:34)
[2020-08-22] MEDS: COD LIVER OIL/ZINC OXIDE OINT 113 GM TUBE TOP SCH ×2 (09:34→21:20)
[2020-08-22] MEDS: VITAMINS A AND D OINT TP SCH ×2 (09:35→21:22)
[2020-08-22] MEDS: VITAL AF 1.2 1,000 ML LIQUID GT PRN (12:44)
[2020-08-22] MEDS: levoFLOXacin 500 MG TABLET GT SCH (14:00)
--- NOTE | 2020-08-22 15:31 | NUR ---
NEW ORDER CARRIED OUT FROM DR. WEBSTER FOR COVID 19 TEST PER [facility] REQUIREMENT ,PT'S RESP. DEMOCRAT SARBJIT AWARE AND IN AGREEMENT.
[2020-08-22] MEDS: ATORVASTATIN 40 MG TABLET GT SCH (21:20)
[2020-08-22] MEDS: MINERAL OIL/PETROLAT OPHT OINT 3.5 GM TUBE EACHEYE SCH (21:20)
[2020-08-22 22:45] VITALS: BP 136/70
[2020-08-23] MEDS: BLOOD SUGAR DIAGNOSTIC 1 EACH STRIP VI SCH ×4 (00:46→18:25)
[2020-08-23] MEDS: VITAL AF 1.2 1,000 ML LIQUID GT PRN ×2 (01:15→18:25)
[2020-08-23] MEDS: INSULIN REGULAR, HUMAN 300 UNIT/3 ML VIAL SQ PRN ×2 (01:23→06:39)
[2020-08-23 08:00] VITALS: BP 149/74
[2020-08-23] MEDS: COD LIVER OIL/ZINC OXIDE OINT 113 GM TUBE TP SCH ×2 (09:00→21:01)
[2020-08-23] MEDS: VITAMINS A AND D OINT TP SCH ×2 (09:00→21:01)
[2020-08-23] MEDS: THIAMINE HCL 100 MG TABLET GT SCH (09:00)
[2020-08-23] MEDS: COD LIVER OIL/ZINC OXIDE OINT 113 GM TUBE TOP SCH ×2 (09:00→21:00)
[2020-08-23] MEDS: FAMOTIDINE 20 MG TABLET GT SCH ×2 (09:00→21:00)
[2020-08-23] MEDS: levETIRAcetam 500 MG/5 ML LIQUID UDC GT SCH ×2 (09:00→21:00)
[2020-08-23] MEDS: CHLORHEXIDINE GLUCONATE 15 ML MOUTHWASH MM SCH ×2 (09:00→21:00)
[2020-08-23] MEDS: CHLORHEXIDINE GLUCONATE 4% TOP SOL 118 ML TP SCH (09:00)
[2020-08-23] MEDS: ENOXAPARIN SODIUM 40 MG/0.4 ML DISP.SYRIN SQ SCH (09:00)
[2020-08-23] MEDS: LABETALOL HCL 100 MG TABLET GT SCH (09:00)
[2020-08-23] MEDS: PHENOBARBITAL 32.4 MG TABLET GT SCH (09:00)
[2020-08-23] MEDS: HYDROGEN PEROXIDE 3% 118 ML BOTTLE TP SCH ×2 (09:44→21:52)
[2020-08-23] MEDS: TERAZOSIN 1 MG CAPSULE GT SCH (09:59)
[2020-08-23] MEDS: DOCUSATE SODIUM 100 MG/10 ML LIQUID UDC GT SCH ×2 (09:59→21:00)
[2020-08-23] MEDS: levoFLOXacin 500 MG TABLET GT SCH (13:29)
--- NOTE | 2020-08-23 13:42 | NUR ---
PT'S RESP. CONSTITUTION PARTY SARBJIT AWARE OF PT'S COVID19 RESULT NEGATIVE FROM YESTERDAY.
--- NOTE | 2020-08-23 18:46 | NUR ---
Video chat provided with the pt. and family (daughter). Verbalized no concerns at this time. Will continue to monitor.
[2020-08-23] MEDS: MINERAL OIL/PETROLAT OPHT OINT 3.5 GM TUBE EACHEYE SCH (21:00)
[2020-08-23] MEDS: ATORVASTATIN 40 MG TABLET GT SCH (21:00)
[2020-08-23 22:30] VITALS: BP 149/76
[2020-08-24] MEDS: BLOOD SUGAR DIAGNOSTIC 1 EACH STRIP VI SCH ×4 (00:25→17:54)
[2020-08-24] MEDS: INSULIN REGULAR, HUMAN 300 UNIT/3 ML VIAL SQ PRN ×4 (00:31→17:56)
[2020-08-24 07:39] VITALS: BP 139/77
[2020-08-24] MEDS: DOCUSATE SODIUM 100 MG/10 ML LIQUID UDC GT SCH ×2 (09:09→21:21)
[2020-08-24] MEDS: LABETALOL HCL 100 MG TABLET GT SCH (09:11)
[2020-08-24] MEDS: levETIRAcetam 500 MG/5 ML LIQUID UDC GT SCH ×2 (09:11→21:21)
[2020-08-24] MEDS: TERAZOSIN 1 MG CAPSULE GT SCH (09:11)
[2020-08-24] MEDS: PHENOBARBITAL 32.4 MG TABLET GT SCH (09:11)
[2020-08-24] MEDS: FAMOTIDINE 20 MG TABLET GT SCH ×2 (09:11→21:21)
[2020-08-24] MEDS: THIAMINE HCL 100 MG TABLET GT SCH (09:12)
[2020-08-24] MEDS: COD LIVER OIL/ZINC OXIDE OINT 113 GM TUBE TP SCH ×2 (09:17→21:23)
[2020-08-24] MEDS: CHLORHEXIDINE GLUCONATE 15 ML MOUTHWASH MM SCH ×2 (09:17→21:00)
[2020-08-24] MEDS: COD LIVER OIL/ZINC OXIDE OINT 113 GM TUBE TOP SCH ×2 (09:17→21:23)
[2020-08-24] MEDS: VITAMINS A AND D OINT TP SCH ×2 (09:18→21:23)
[2020-08-24] MEDS: CHLORHEXIDINE GLUCONATE 4% TOP SOL 118 ML TP SCH (09:18)
[2020-08-24] MEDS: ENOXAPARIN SODIUM 40 MG/0.4 ML DISP.SYRIN SQ SCH (09:19)
[2020-08-24] MEDS: HYDROGEN PEROXIDE 3% 118 ML BOTTLE TP SCH ×2 (09:50→21:30)
--- NOTE | 2020-08-24 12:12 | NUR ---
DELANEY spoke with Malorie at Dr. Murray's office, , to schedule an initial eye exam for this patient. Malorie stated that Dr. Murray was out of town this week, but he returns next week and that she will notify him of the need to see patient for his initial eye exam. DELANEY faxed patient's face sheet to Malorie at [phone].
[2020-08-24] MEDS: levoFLOXacin 500 MG TABLET GT SCH (14:54)
[2020-08-24] MEDS: VITAL AF 1.2 1,000 ML LIQUID GT PRN (17:55)
[2020-08-24 20:15] VITALS: BP 131/69
[2020-08-24] MEDS: MINERAL OIL/PETROLAT OPHT OINT 3.5 GM TUBE EACHEYE SCH (21:21)
[2020-08-24] MEDS: ATORVASTATIN 40 MG TABLET GT SCH (21:21)
[2020-08-25] MEDS: BLOOD SUGAR DIAGNOSTIC 1 EACH STRIP VI SCH ×5 (00:30→23:25)
--- NOTE | 2020-08-25 02:26 | NUR ---
Afebrile, trach is intact and patent, suctioned with yellow thick secretions, on aspiration precaution. Still on Levaquin via gt for fever/ Pneumonia, no adverse reactions noted, kept clean and comfortable, will continue monitor.
[2020-08-25] MEDS: INSULIN REGULAR, HUMAN 300 UNIT/3 ML VIAL SQ PRN ×5 (05:44→23:24)
[2020-08-25 07:30] VITALS: BP 160/98
[2020-08-25] MEDS: HYDROGEN PEROXIDE 3% 118 ML BOTTLE TP SCH ×2 (08:13→20:36)
[2020-08-25] MEDS: VITAL AF 1.2 1,000 ML LIQUID GT PRN ×2 (09:31→23:15)
[2020-08-25] MEDS: DOCUSATE SODIUM 100 MG/10 ML LIQUID UDC GT SCH ×2 (09:34→21:40)
[2020-08-25] MEDS: TERAZOSIN 1 MG CAPSULE GT SCH (09:36)
[2020-08-25] MEDS: LABETALOL HCL 100 MG TABLET GT SCH (09:38)
[2020-08-25] MEDS: FAMOTIDINE 20 MG TABLET GT SCH ×2 (09:38→21:42)
[2020-08-25] MEDS: levETIRAcetam 500 MG/5 ML LIQUID UDC GT SCH ×2 (09:38→21:42)
[2020-08-25] MEDS: THIAMINE HCL 100 MG TABLET GT SCH (09:39)
[2020-08-25] MEDS: CHLORHEXIDINE GLUCONATE 15 ML MOUTHWASH MM SCH (09:43)
[2020-08-25] MEDS: ENOXAPARIN SODIUM 40 MG/0.4 ML DISP.SYRIN SQ SCH (09:49)
[2020-08-25] MEDS: COD LIVER OIL/ZINC OXIDE OINT 113 GM TUBE TOP SCH ×2 (09:50→21:42)
[2020-08-25] MEDS: COD LIVER OIL/ZINC OXIDE OINT 113 GM TUBE TP SCH (09:50)
[2020-08-25] MEDS: CHLORHEXIDINE GLUCONATE 4% TOP SOL 118 ML TP SCH (09:51)
[2020-08-25] MEDS: VITAMINS A AND D OINT TP SCH ×2 (09:52→21:42)
[2020-08-25] MEDS: PHENOBARBITAL 32.4 MG TABLET GT SCH (09:59)
[2020-08-25] MEDS: levoFLOXacin 500 MG TABLET GT SCH (14:00)
--- NOTE | 2020-08-25 19:00 | NUR ---
Still on atb therapy levaquin for fever /pneumonia,no adverse reaction noted ,Midline on the R upper arm intact,no s/s of infection noted.Dr Peralta aware pt still has a large amount of thick yellow secretions,no new orders.
[2020-08-25 20:00] VITALS: BP 152/91
[2020-08-25] MEDS: MINERAL OIL/PETROLAT OPHT OINT 3.5 GM TUBE EACHEYE SCH (21:36)
[2020-08-25] MEDS: ATORVASTATIN 40 MG TABLET GT SCH (21:42)
--- NOTE | 2020-08-25 23:11 | NUR ---
Afebrile, trach is intact and patent, suctioned with yellow thick secretions, on aspiration and seizure precautions. Still on Levaquin via gt for fever/ Pneumonia, no adverse reactions noted, kept clean and comfortable, will continue monitor.
[2020-08-26] MEDS: BLOOD SUGAR DIAGNOSTIC 1 EACH STRIP VI SCH ×3 (05:29→17:13)
[2020-08-26] MEDS: INSULIN REGULAR, HUMAN 300 UNIT/3 ML VIAL SQ PRN ×3 (05:30→17:14)
--- NOTE | 2020-08-26 05:38 | NUR ---
Renewed treatment to sacral stage II ulcer X 14 more days.
[2020-08-26 07:35] VITALS: BP 148/82
[2020-08-26] MEDS: HYDROGEN PEROXIDE 3% 118 ML BOTTLE TP SCH ×2 (09:00→21:24)
[2020-08-26] MEDS: FAMOTIDINE 20 MG TABLET GT SCH ×2 (09:09→21:44)
[2020-08-26] MEDS: DOCUSATE SODIUM 100 MG/10 ML LIQUID UDC GT SCH ×2 (09:09→21:44)
[2020-08-26] MEDS: PHENOBARBITAL 32.4 MG TABLET GT SCH (09:09)
[2020-08-26] MEDS: levETIRAcetam 500 MG/5 ML LIQUID UDC GT SCH ×2 (09:09→21:44)
[2020-08-26] MEDS: TERAZOSIN 1 MG CAPSULE GT SCH (09:09)
[2020-08-26] MEDS: THIAMINE HCL 100 MG TABLET GT SCH (09:10)
[2020-08-26] MEDS: LABETALOL HCL 100 MG TABLET GT SCH (09:10)
[2020-08-26] MEDS: COD LIVER OIL/ZINC OXIDE OINT 113 GM TUBE TOP SCH ×4 (09:15→21:44)
[2020-08-26] MEDS: ENOXAPARIN SODIUM 40 MG/0.4 ML DISP.SYRIN SQ SCH (09:15)
[2020-08-26] MEDS: VITAMINS A AND D OINT TP SCH ×2 (09:16→21:45)
[2020-08-26] MEDS: VITAL AF 1.2 1,000 ML LIQUID GT PRN (16:17)
[2020-08-26] MEDS: levoFLOXacin 500 MG TABLET GT SCH (17:44)
--- NOTE | 2020-08-26 17:57 | NUR ---
SEEN AND EXAMINED BY DR. WEBSTER. NOTIFIED DR WEBSTER ABOUT STOP DATE FOR LEVAQUIN, LOW GRADE TEMP AND INCREASED SECRETION. NEW ORDER GIVEN, NOTED AND CARRIED OUT.
[2020-08-26 20:00] VITALS: BP 144/75
[2020-08-26] MEDS: ATORVASTATIN 40 MG TABLET GT SCH (21:44)
[2020-08-26] MEDS: MINERAL OIL/PETROLAT OPHT OINT 3.5 GM TUBE EACHEYE SCH (21:44)
[2020-08-27] MEDS: BLOOD SUGAR DIAGNOSTIC 1 EACH STRIP VI SCH ×5 (00:27→23:10)
[2020-08-27] MEDS: INSULIN REGULAR, HUMAN 300 UNIT/3 ML VIAL SQ PRN ×5 (00:29→23:11)
--- NOTE | 2020-08-27 04:31 | NUR ---
Patient is still on Levaquin 500mg via Gt daily for fever and Pneumonia, no adverse reactions noted, patient istill has low grade temperature and increase thick yellow secretions, suctioned as needed, On aspiration and seizure precautions, fluids given as ordered, kept clean and comfortable.
[2020-08-27] MEDS: VITAL AF 1.2 1,000 ML LIQUID GT PRN ×2 (05:05→18:23)
[2020-08-27 06:18] LABS: BASOPHILS % (AUTO) 0.4 % (0.0-2.0); EOSINOPHILS # (AUTO) 0.1 K/uL (0.0-0.7); EOSINOPHILS % (AUTO) 1.6 % (0.0-7.0); HEMOGLOBIN 12.6 g/dL (12.5-16.3); LYMPHOCYTES # (AUTO) 1.9 K/uL (20.0-40.0); LYMPHOCYTES % (AUTO) 36.1 % (20.5-51.5); MEAN CORPUSCULAR HEMOGLOBIN 30.8 uug (23.8-33.4); MEAN CORPUSCULAR HGB CONC 34 g/dL (32.5-36.3); MEAN CORPUSCULAR VOLUME 90.8 fL (73.0-96.2); MONOCYTES # (AUTO) 0.5 K/uL (2.0-10.0); MONOCYTES % (AUTO) 9.8 % (0.0-11.0); NEUTROPHILS # (AUTO) 2.7 K/uL (1.8-8.9); NEUTROPHILS % (AUTO) 52.1 % (38.5-71.5); PLATELET COUNT (AUTO) 241 K/uL (152-348); RED BLOOD CELL COUNT(AUTO) 4.07 MIL/uL (4.06-5.63); WHITE BLOOD COUNT (AUTO) 5.3 K/uL (3.6-10.2)
[2020-08-27 06:25] LABS: CARBON DIOXIDE 31 mmol/L (21-32); CHLORIDE 94 mmol/L (98-107); CREATININE 0.4 mg/dL (0.6-1.3); GLUCOSE 176 mg/dL (74-106); POTASSIUM 3.8 mmol/L (3.5-5.1); UREA NITROGEN, BLOOD 25 mg/dL (7-18)
[2020-08-27 07:43] VITALS: BP 161/89
[2020-08-27] MEDS: HYDROGEN PEROXIDE 3% 118 ML BOTTLE TP SCH ×2 (08:21→21:00)
[2020-08-27] MEDS: DOCUSATE SODIUM 100 MG/10 ML LIQUID UDC GT SCH ×2 (08:30→20:19)
[2020-08-27] MEDS: TERAZOSIN 1 MG CAPSULE GT SCH (08:30)
[2020-08-27] MEDS: PHENOBARBITAL 32.4 MG TABLET GT SCH (08:32)
[2020-08-27] MEDS: levETIRAcetam 500 MG/5 ML LIQUID UDC GT SCH ×2 (08:32→20:19)
[2020-08-27] MEDS: FAMOTIDINE 20 MG TABLET GT SCH ×2 (08:32→20:19)
[2020-08-27] MEDS: LABETALOL HCL 100 MG TABLET GT SCH (08:33)
[2020-08-27] MEDS: THIAMINE HCL 100 MG TABLET GT SCH ×2 (08:33→20:19)
[2020-08-27] MEDS: COD LIVER OIL/ZINC OXIDE OINT 113 GM TUBE TOP SCH ×4 (08:36→20:19)
[2020-08-27] MEDS: VITAMINS A AND D OINT TP SCH ×2 (08:36→20:19)
--- NOTE | 2020-08-27 11:00 | NUR ---
SEEN AND EXAMINED BY DR WEBSTER. NOTIFIED MD OF RESULTING LABS AND CXR WITH NEW ORDERS, NOTED AND CARRIED OUT.
[2020-08-27] MEDS: ENOXAPARIN SODIUM 40 MG/0.4 ML DISP.SYRIN SQ SCH (11:30)
--- NOTE | 2020-08-27 12:46 | NUR ---
DELANEY called patient's daughter Janis [phone] and informed her that the IDT meetings for August are scheduled for 08/31 at 11am and 09/07 at 11am. DELANEY asked Janis if she would like to participate in the meeting through speaker phone, and Janis expressed wanting to. DELANEY asked Janis to be available between 11am-12pm on both days, in order to received this SW's call, and Janis expressed understanding and agreement.
--- NOTE | 2020-08-27 16:37 | NUR ---
DELANEY mailed a copy of the signed admission paperwork to patient's daughter, Janis. The papers were mailed to the following address: [id number] [place] [address]
[2020-08-27] MEDS: MINERAL OIL/PETROLAT OPHT OINT 3.5 GM TUBE EACHEYE SCH (20:19)
[2020-08-27] MEDS: ATORVASTATIN 40 MG TABLET GT SCH (20:19)
[2020-08-27 20:40] VITALS: BP 143/79
[2020-08-28] MEDS: INSULIN REGULAR, HUMAN 300 UNIT/3 ML VIAL SQ PRN ×4 (05:25→23:14)
[2020-08-28] MEDS: BLOOD SUGAR DIAGNOSTIC 1 EACH STRIP VI SCH ×4 (05:25→23:13)
[2020-08-28 07:47] VITALS: BP 148/77
[2020-08-28] MEDS: DOCUSATE SODIUM 100 MG/10 ML LIQUID UDC GT SCH ×2 (08:30→20:12)
[2020-08-28] MEDS: ENOXAPARIN SODIUM 40 MG/0.4 ML DISP.SYRIN SQ SCH (08:30)
[2020-08-28] MEDS: levETIRAcetam 500 MG/5 ML LIQUID UDC GT SCH ×2 (08:31→20:12)
[2020-08-28] MEDS: TERAZOSIN 1 MG CAPSULE GT SCH (08:31)
[2020-08-28] MEDS: PHENOBARBITAL 32.4 MG TABLET GT SCH (08:31)
[2020-08-28] MEDS: LABETALOL HCL 100 MG TABLET GT SCH (08:31)
[2020-08-28] MEDS: FAMOTIDINE 20 MG TABLET GT SCH ×2 (08:31→20:12)
[2020-08-28] MEDS: VITAMINS A AND D OINT TP SCH ×2 (08:32→20:12)
[2020-08-28] MEDS: COD LIVER OIL/ZINC OXIDE OINT 113 GM TUBE TOP SCH ×4 (08:32→20:12)
[2020-08-28] MEDS: HYDROGEN PEROXIDE 3% 118 ML BOTTLE TP SCH ×2 (09:15→21:31)
[2020-08-28] MEDS: VITAL AF 1.2 1,000 ML LIQUID GT PRN (12:10)
[2020-08-28] MEDS: ATORVASTATIN 40 MG TABLET GT SCH (20:12)
[2020-08-28] MEDS: THIAMINE HCL 100 MG TABLET GT SCH (20:12)
[2020-08-28] MEDS: MINERAL OIL/PETROLAT OPHT OINT 3.5 GM TUBE EACHEYE SCH (20:12)
[2020-08-28 20:57] VITALS: BP 132/74
[2020-08-29] MEDS: VITAL AF 1.2 1,000 ML LIQUID GT PRN ×2 (02:26→17:32)
[2020-08-29] MEDS: BLOOD SUGAR DIAGNOSTIC 1 EACH STRIP VI SCH ×4 (05:59→23:06)
[2020-08-29] MEDS: INSULIN REGULAR, HUMAN 300 UNIT/3 ML VIAL SQ PRN ×4 (06:00→23:07)
[2020-08-29 08:01] VITALS: BP 153/91
[2020-08-29] MEDS: DOCUSATE SODIUM 100 MG/10 ML LIQUID UDC GT SCH ×2 (08:58→20:15)
[2020-08-29] MEDS: TERAZOSIN 1 MG CAPSULE GT SCH (08:59)
[2020-08-29] MEDS: levETIRAcetam 500 MG/5 ML LIQUID UDC GT SCH (09:00)
[2020-08-29] MEDS: FAMOTIDINE 20 MG TABLET GT SCH ×2 (09:01→20:15)
[2020-08-29] MEDS: PHENOBARBITAL 32.4 MG TABLET GT SCH (09:02)
[2020-08-29] MEDS: LABETALOL HCL 100 MG TABLET GT SCH (09:03)
[2020-08-29] MEDS: ENOXAPARIN SODIUM 40 MG/0.4 ML DISP.SYRIN SQ SCH (09:04)
[2020-08-29] MEDS: COD LIVER OIL/ZINC OXIDE OINT 113 GM TUBE TOP SCH ×4 (09:04→20:15)
[2020-08-29] MEDS: VITAMINS A AND D OINT TP SCH ×2 (09:04→20:15)
[2020-08-29] MEDS: HYDROGEN PEROXIDE 3% 118 ML BOTTLE TP SCH ×2 (10:00→21:00)
[2020-08-29 18:42] VITALS: BP 139/82
[2020-08-29 19:42] VITALS: BP 139/82
--- NOTE | 2020-08-29 19:55 | NUR ---
Covid 19 test done today.per [facility] requirement.Responsible constitution party notified.
[2020-08-29] MEDS: levETIRAcetam 500 MG TABLET GT SCH (20:15)
[2020-08-29] MEDS: THIAMINE HCL 100 MG TABLET GT SCH (20:15)
[2020-08-29] MEDS: ATORVASTATIN 40 MG TABLET GT SCH (20:15)
[2020-08-29] MEDS: MINERAL OIL/PETROLAT OPHT OINT 3.5 GM TUBE EACHEYE SCH (20:15)
[2020-08-30] MEDS: BLOOD SUGAR DIAGNOSTIC 1 EACH STRIP VI SCH ×3 (05:52→17:24)
[2020-08-30] MEDS: INSULIN REGULAR, HUMAN 300 UNIT/3 ML VIAL SQ PRN ×3 (05:54→17:25)
[2020-08-30] MEDS: HYDROGEN PEROXIDE 3% 118 ML BOTTLE TP SCH ×2 (07:10→21:09)
[2020-08-30 07:42] VITALS: BP 146/81
[2020-08-30] MEDS: DOCUSATE SODIUM 100 MG/10 ML LIQUID UDC GT SCH ×2 (08:44→20:38)
[2020-08-30] MEDS: FAMOTIDINE 20 MG TABLET GT SCH ×2 (08:45→20:40)
[2020-08-30] MEDS: PHENOBARBITAL 32.4 MG TABLET GT SCH (08:45)
[2020-08-30] MEDS: TERAZOSIN 1 MG CAPSULE GT SCH (08:45)
[2020-08-30] MEDS: levETIRAcetam 500 MG TABLET GT SCH ×2 (08:45→20:39)
[2020-08-30] MEDS: LABETALOL HCL 100 MG TABLET GT SCH (08:46)
[2020-08-30] MEDS: ENOXAPARIN SODIUM 40 MG/0.4 ML DISP.SYRIN SQ SCH (08:47)
[2020-08-30] MEDS: COD LIVER OIL/ZINC OXIDE OINT 113 GM TUBE TOP SCH ×4 (08:48→20:40)
[2020-08-30] MEDS: VITAMINS A AND D OINT TP SCH ×2 (08:48→20:40)
[2020-08-30] MEDS: VITAL AF 1.2 1,000 ML LIQUID GT PRN (11:17)
--- NOTE | 2020-08-30 12:00 | NUR ---
PT. WAS SEEN BY FABY Montoya AND WITH NAMO.
[2020-08-30 20:14] VITALS: BP 127/73
[2020-08-30] MEDS: MINERAL OIL/PETROLAT OPHT OINT 3.5 GM TUBE EACHEYE SCH (20:38)
[2020-08-30] MEDS: ATORVASTATIN 40 MG TABLET GT SCH (20:40)
[2020-08-30] MEDS: THIAMINE HCL 100 MG TABLET GT SCH (20:40)
[2020-08-31] MEDS: VITAL AF 1.2 1,000 ML LIQUID GT PRN (00:59)
[2020-08-31] MEDS: BLOOD SUGAR DIAGNOSTIC 1 EACH STRIP VI SCH ×4 (00:59→18:28)
[2020-08-31] MEDS: INSULIN REGULAR, HUMAN 300 UNIT/3 ML VIAL SQ PRN ×4 (01:00→18:40)
[2020-08-31 07:46] VITALS: BP 145/79
--- NOTE | 2020-08-31 08:45 | NUR ---
SHIFT REPORT Recv'd report from night nurse. Pt. stable with Trach intact and patent. Suctioned clear, frothy, odorless secretions from Trach. G-Tube intact and patent with feeding running at 75mL/hr. Bed low and alarm on, with call chun with in reach.
[2020-08-31] MEDS: ENOXAPARIN SODIUM 40 MG/0.4 ML DISP.SYRIN SQ SCH (09:00)
[2020-08-31] MEDS: DOCUSATE SODIUM 100 MG/10 ML LIQUID UDC GT SCH ×2 (09:00→21:10)
[2020-08-31] MEDS: TERAZOSIN 1 MG CAPSULE GT SCH (09:00)
[2020-08-31] MEDS: LABETALOL HCL 100 MG TABLET GT SCH (09:00)
[2020-08-31] MEDS: COD LIVER OIL/ZINC OXIDE OINT 113 GM TUBE TOP SCH ×4 (09:00→21:16)
[2020-08-31] MEDS: PHENOBARBITAL 32.4 MG TABLET GT SCH (09:00)
[2020-08-31] MEDS: FAMOTIDINE 20 MG TABLET GT SCH ×2 (09:00→21:14)
[2020-08-31] MEDS: VITAMINS A AND D OINT TP SCH ×2 (09:00→21:16)
[2020-08-31] MEDS: levETIRAcetam 500 MG TABLET GT SCH ×2 (09:00→21:11)
[2020-08-31] MEDS: HYDROGEN PEROXIDE 3% 118 ML BOTTLE TP SCH ×2 (09:05→21:00)
--- NOTE | 2020-08-31 16:55 | NUR ---
INTERDISCIPLINARY PLAN OF CARE CONFERENCE was held today. Patient's daughter participated in the meeting through speaker phone. Dr. Peralta and the Interdisciplinary Team reviewed the current plan of care in detail. RN reported on patient's medical condition. See RN IDT conference notes. RD discussed changes in patient's feeding formula. No major changes in medical condition were reported the IDT team. See all disciplines IDT notes and physician's progress notes for additional details. Janis's questions were addressed by the IDT team and by Dr. Peralta, and Janis expressed understanding of the current plan of care.
--- NOTE | 2020-08-31 19:15 | NUR ---
Midline discontinue as ordered,pressure dressing applied,no bleeding noted.
--- NOTE | 2020-08-31 19:25 | NUR ---
END OF SHIFT REPORT Report given to Shira. Endorsed pt. in stable condition. New feeding order for Glucerna 1.2 to run at same rate x22 hours. Accucheck at 1200 169 and admin. 3units HumulinR. Accucheck at 1800 141 and admin. 2units HumulinR. Charge nurse removed Right UA PICC not needed.
[2020-08-31 20:00] VITALS: BP 133/81
[2020-08-31] MEDS: MINERAL OIL/PETROLAT OPHT OINT 3.5 GM TUBE EACHEYE SCH (21:10)
[2020-08-31] MEDS: THIAMINE HCL 100 MG TABLET GT SCH (21:14)
[2020-08-31] MEDS: ATORVASTATIN 40 MG TABLET GT SCH (21:14)
[2020-09-01] MEDS: BLOOD SUGAR DIAGNOSTIC 1 EACH STRIP VI SCH ×4 (00:42→17:00)
[2020-09-01] MEDS: INSULIN REGULAR, HUMAN 300 UNIT/3 ML VIAL SQ PRN ×4 (00:44→17:04)
[2020-09-01 07:47] VITALS: BP 131/73
[2020-09-01] MEDS ORDERED: GLUCERNA 1.2 1000ML LIQUID GT PRN (09:15)
[2020-09-01] MEDS: PHENOBARBITAL 32.4 MG TABLET GT SCH (09:35)
[2020-09-01] MEDS: FAMOTIDINE 20 MG TABLET GT SCH ×2 (09:35→21:33)
[2020-09-01] MEDS: TERAZOSIN 1 MG CAPSULE GT SCH (09:35)
[2020-09-01] MEDS: levETIRAcetam 500 MG TABLET GT SCH ×2 (09:35→21:33)
[2020-09-01] MEDS: DOCUSATE SODIUM 100 MG/10 ML LIQUID UDC GT SCH ×2 (09:35→21:32)
[2020-09-01] MEDS: LABETALOL HCL 100 MG TABLET GT SCH (09:36)
[2020-09-01] MEDS: ENOXAPARIN SODIUM 40 MG/0.4 ML DISP.SYRIN SQ SCH (09:36)
[2020-09-01] MEDS: COD LIVER OIL/ZINC OXIDE OINT 113 GM TUBE TOP SCH ×4 (09:36→21:33)
[2020-09-01] MEDS: VITAMINS A AND D OINT TP SCH ×2 (09:36→21:34)
[2020-09-01] MEDS: HYDROGEN PEROXIDE 3% 118 ML BOTTLE TP SCH ×2 (10:10→21:00)
[2020-09-01] MEDS: MINERAL OIL/PETROLAT OPHT OINT 3.5 GM TUBE EACHEYE SCH (21:31)
[2020-09-01] MEDS: THIAMINE HCL 100 MG TABLET GT SCH (21:33)
[2020-09-01] MEDS: ATORVASTATIN 40 MG TABLET GT SCH (21:33)
[2020-09-01] MEDS: COD LIVER OIL/ZINC OXIDE OINT 113 GM TUBE TP SCH (21:34)
[2020-09-01 22:55] VITALS: BP 127/77
[2020-09-02] MEDS: BLOOD SUGAR DIAGNOSTIC 1 EACH STRIP VI SCH ×4 (00:41→17:16)
[2020-09-02] MEDS: INSULIN REGULAR, HUMAN 300 UNIT/3 ML VIAL SQ PRN ×4 (00:48→17:17)
[2020-09-02] MEDS: GLUCERNA 1.2 1000ML LIQUID GT PRN (00:49)
[2020-09-02 08:03] VITALS: BP 174/64
[2020-09-02] MEDS: HYDROGEN PEROXIDE 3% 118 ML BOTTLE TP SCH ×2 (09:10→21:00)
[2020-09-02] MEDS: DOCUSATE SODIUM 100 MG/10 ML LIQUID UDC GT SCH ×2 (09:33→21:00)
[2020-09-02] MEDS: levETIRAcetam 500 MG TABLET GT SCH ×2 (09:34→21:00)
[2020-09-02] MEDS: PHENOBARBITAL 32.4 MG TABLET GT SCH (09:34)
[2020-09-02] MEDS: LABETALOL HCL 100 MG TABLET GT SCH (09:34)
[2020-09-02] MEDS: ENOXAPARIN SODIUM 40 MG/0.4 ML DISP.SYRIN SQ SCH (09:34)
[2020-09-02] MEDS: TERAZOSIN 1 MG CAPSULE GT SCH (09:34)
[2020-09-02] MEDS: COD LIVER OIL/ZINC OXIDE OINT 113 GM TUBE TOP SCH ×4 (09:34→21:00)
[2020-09-02] MEDS: FAMOTIDINE 20 MG TABLET GT SCH ×2 (09:34→21:00)
[2020-09-02] MEDS: COD LIVER OIL/ZINC OXIDE OINT 113 GM TUBE TP SCH ×2 (09:35→21:00)
[2020-09-02] MEDS: VITAMINS A AND D OINT TP SCH ×2 (09:35→21:00)
--- NOTE | 2020-09-02 17:04 | NUR ---
DELANEY followed up with Malorie at Dr. Murray's office, regarding the optometry exam that was requested on 08/24 (see SS note). Malorie stated that Dr. Murray would be available during the first or second week of September, and that Malorie would call this DELANEY closer to the date to confirm.
--- NOTE | 2020-09-02 17:30 | NUR ---
Video chat provided to pt. and his father with no problem noted, had some problems with machine hand and connection at first, Pt remains comfortable, all needs attended.
[2020-09-02] MEDS: ATORVASTATIN 40 MG TABLET GT SCH (21:00)
[2020-09-02] MEDS: MINERAL OIL/PETROLAT OPHT OINT 3.5 GM TUBE EACHEYE SCH (21:00)
[2020-09-02] MEDS: THIAMINE HCL 100 MG TABLET GT SCH (21:00)
[2020-09-02 22:45] VITALS: BP 140/81
[2020-09-03] MEDS: INSULIN REGULAR, HUMAN 300 UNIT/3 ML VIAL SQ PRN ×5 (01:14→23:35)
[2020-09-03] MEDS: GLUCERNA 1.2 1000ML LIQUID GT PRN ×2 (05:00→17:49)
[2020-09-03] MEDS: BLOOD SUGAR DIAGNOSTIC 1 EACH STRIP VI SCH ×5 (05:41→23:31)
[2020-09-03 07:39] VITALS: BP 148/89
[2020-09-03] MEDS: COD LIVER OIL/ZINC OXIDE OINT 113 GM TUBE TP SCH ×2 (08:02→20:52)
[2020-09-03] MEDS: ENOXAPARIN SODIUM 40 MG/0.4 ML DISP.SYRIN SQ SCH (08:02)
[2020-09-03] MEDS: COD LIVER OIL/ZINC OXIDE OINT 113 GM TUBE TOP SCH ×4 (08:02→20:52)
[2020-09-03] MEDS: VITAMINS A AND D OINT TP SCH ×2 (08:02→20:52)
[2020-09-03] MEDS: FAMOTIDINE 20 MG TABLET GT SCH ×2 (08:03→20:51)
[2020-09-03] MEDS: DOCUSATE SODIUM 100 MG/10 ML LIQUID UDC GT SCH ×2 (08:03→20:51)
[2020-09-03] MEDS: LABETALOL HCL 100 MG TABLET GT SCH (08:03)
[2020-09-03] MEDS: levETIRAcetam 500 MG TABLET GT SCH ×2 (08:03→20:51)
[2020-09-03] MEDS: TERAZOSIN 1 MG CAPSULE GT SCH (08:03)
[2020-09-03] MEDS: PHENOBARBITAL 32.4 MG TABLET GT SCH (08:03)
[2020-09-03] MEDS: HYDROGEN PEROXIDE 3% 118 ML BOTTLE TP SCH ×2 (08:43→21:21)
[2020-09-03] MEDS: MINERAL OIL/PETROLAT OPHT OINT 3.5 GM TUBE EACHEYE SCH (20:51)
[2020-09-03] MEDS: ATORVASTATIN 40 MG TABLET GT SCH (20:51)
[2020-09-03] MEDS: THIAMINE HCL 100 MG TABLET GT SCH (20:51)
[2020-09-03 22:27] VITALS: BP 130/77
[2020-09-04] MEDS: BLOOD SUGAR DIAGNOSTIC 1 EACH STRIP VI SCH ×4 (06:12→23:27)
[2020-09-04] MEDS: INSULIN REGULAR, HUMAN 300 UNIT/3 ML VIAL SQ PRN ×3 (06:14→18:24)
[2020-09-04 07:43] VITALS: BP 143/80
[2020-09-04] MEDS: HYDROGEN PEROXIDE 3% 118 ML BOTTLE TP SCH ×2 (08:05→21:40)
[2020-09-04] MEDS: DOCUSATE SODIUM 100 MG/10 ML LIQUID UDC GT SCH ×2 (08:20→21:05)
[2020-09-04] MEDS: FAMOTIDINE 20 MG TABLET GT SCH ×2 (08:23→21:05)
[2020-09-04] MEDS: TERAZOSIN 1 MG CAPSULE GT SCH (08:23)
[2020-09-04] MEDS: levETIRAcetam 500 MG TABLET GT SCH ×2 (08:23→21:05)
[2020-09-04] MEDS: PHENOBARBITAL 32.4 MG TABLET GT SCH (08:23)
[2020-09-04] MEDS: LABETALOL HCL 100 MG TABLET GT SCH (08:23)
[2020-09-04] MEDS: COD LIVER OIL/ZINC OXIDE OINT 113 GM TUBE TOP SCH ×4 (08:24→21:06)
[2020-09-04] MEDS: COD LIVER OIL/ZINC OXIDE OINT 113 GM TUBE TP SCH ×2 (08:24→21:06)
[2020-09-04] MEDS: VITAMINS A AND D OINT TP SCH ×2 (08:25→21:06)
[2020-09-04] MEDS: ENOXAPARIN SODIUM 40 MG/0.4 ML DISP.SYRIN SQ SCH (08:26)
[2020-09-04] MEDS: MINERAL OIL/PETROLAT OPHT OINT 3.5 GM TUBE EACHEYE SCH (21:05)
[2020-09-04] MEDS: ATORVASTATIN 40 MG TABLET GT SCH (21:05)
[2020-09-04] MEDS: THIAMINE HCL 100 MG TABLET GT SCH (21:05)
[2020-09-04 23:07] VITALS: BP 138/68
[2020-09-05] MEDS: INSULIN REGULAR, HUMAN 300 UNIT/3 ML VIAL SQ PRN ×4 (00:35→18:05)
[2020-09-05] MEDS: BLOOD SUGAR DIAGNOSTIC 1 EACH STRIP VI SCH ×3 (06:22→18:02)
[2020-09-05 07:45] VITALS: BP 144/79
[2020-09-05] MEDS: HYDROGEN PEROXIDE 3% 118 ML BOTTLE TP SCH ×2 (09:00→21:13)
[2020-09-05] MEDS: DOCUSATE SODIUM 100 MG/10 ML LIQUID UDC GT SCH ×2 (09:29→20:50)
[2020-09-05] MEDS: TERAZOSIN 1 MG CAPSULE GT SCH (09:30)
[2020-09-05] MEDS: levETIRAcetam 500 MG TABLET GT SCH ×2 (09:30→20:50)
[2020-09-05] MEDS: FAMOTIDINE 20 MG TABLET GT SCH ×2 (09:31→20:50)
[2020-09-05] MEDS: PHENOBARBITAL 32.4 MG TABLET GT SCH (09:31)
[2020-09-05] MEDS: COD LIVER OIL/ZINC OXIDE OINT 113 GM TUBE TOP SCH ×4 (09:32→20:51)
[2020-09-05] MEDS: LABETALOL HCL 100 MG TABLET GT SCH (09:32)
[2020-09-05] MEDS: VITAMINS A AND D OINT TP SCH ×2 (09:34→20:51)
[2020-09-05] MEDS: COD LIVER OIL/ZINC OXIDE OINT 113 GM TUBE TP SCH ×2 (09:34→20:51)
[2020-09-05] MEDS: ENOXAPARIN SODIUM 40 MG/0.4 ML DISP.SYRIN SQ SCH (09:36)
[2020-09-05 19:58] VITALS: BP 145/84
[2020-09-05] MEDS: THIAMINE HCL 100 MG TABLET GT SCH (20:50)
[2020-09-05] MEDS: ATORVASTATIN 40 MG TABLET GT SCH (20:50)
[2020-09-05] MEDS: MINERAL OIL/PETROLAT OPHT OINT 3.5 GM TUBE EACHEYE SCH (20:50)
[2020-09-06] MEDS: BLOOD SUGAR DIAGNOSTIC 1 EACH STRIP VI SCH ×5 (00:41→23:23)
[2020-09-06] MEDS: INSULIN REGULAR, HUMAN 300 UNIT/3 ML VIAL SQ PRN ×4 (00:44→17:42)
[2020-09-06] MEDS: GLUCERNA 1.2 1000ML LIQUID GT PRN ×2 (03:20→20:59)
--- NOTE | 2020-09-06 07:15 | NUR ---
Will test patient for COVID-19 today.
[2020-09-06] MEDS: HYDROGEN PEROXIDE 3% 118 ML BOTTLE TP SCH ×2 (07:19→21:51)
[2020-09-06 07:34] VITALS: BP 162/81
[2020-09-06] MEDS: DOCUSATE SODIUM 100 MG/10 ML LIQUID UDC GT SCH ×2 (08:57→20:27)
[2020-09-06] MEDS: LABETALOL HCL 100 MG TABLET GT SCH (08:58)
[2020-09-06] MEDS: PHENOBARBITAL 32.4 MG TABLET GT SCH (08:58)
[2020-09-06] MEDS: TERAZOSIN 1 MG CAPSULE GT SCH (08:58)
[2020-09-06] MEDS: ENOXAPARIN SODIUM 40 MG/0.4 ML DISP.SYRIN SQ SCH (08:58)
[2020-09-06] MEDS: FAMOTIDINE 20 MG TABLET GT SCH ×2 (08:58→20:28)
[2020-09-06] MEDS: COD LIVER OIL/ZINC OXIDE OINT 113 GM TUBE TOP SCH ×4 (08:58→20:28)
[2020-09-06] MEDS: levETIRAcetam 500 MG TABLET GT SCH ×2 (08:58→20:27)
[2020-09-06] MEDS: COD LIVER OIL/ZINC OXIDE OINT 113 GM TUBE TP SCH ×2 (08:59→20:28)
[2020-09-06] MEDS: VITAMINS A AND D OINT TP SCH ×2 (08:59→20:28)
--- NOTE | 2020-09-06 12:35 | NUR ---
SEEN BY FABY Montoya AND WITH NNO.
--- NOTE | 2020-09-06 15:00 | NUR ---
Provided video chat to pt. and his family with no problem noted, pt remains comfortable, no signs of pain or discomfort noted.
--- NOTE | 2020-09-06 17:36 | NUR ---
NO COVID 19 TEST REQUIRED BY [facility] TODAY AND RESP. DEMOCRAT SARBJIT AWARE.
[2020-09-06 20:00] VITALS: BP 171/88
[2020-09-06] MEDS: hydrALAZINE HCL 25 MG TABLET GT PRN (20:00)
[2020-09-06] MEDS: ATORVASTATIN 40 MG TABLET GT SCH (20:27)
[2020-09-06] MEDS: MINERAL OIL/PETROLAT OPHT OINT 3.5 GM TUBE EACHEYE SCH (20:27)
[2020-09-06] MEDS: THIAMINE HCL 100 MG TABLET GT SCH (20:28)
[2020-09-06] MEDS: ACETAMINOPHEN 650 MG/20.3 ML LIQUID UDC GT PRN (20:29)
[2020-09-06 21:09] VITALS: BP 142/87
[2020-09-07] MEDS: INSULIN REGULAR, HUMAN 300 UNIT/3 ML VIAL SQ PRN ×4 (00:56→18:10)
[2020-09-07] MEDS: BLOOD SUGAR DIAGNOSTIC 1 EACH STRIP VI SCH ×4 (05:33→23:48)
[2020-09-07 05:48] VITALS: BP 166/79
[2020-09-07] MEDS: hydrALAZINE HCL 25 MG TABLET GT PRN (05:48)
[2020-09-07 06:30] VITALS: BP 148/82
[2020-09-07 07:30] VITALS: BP 143/75
[2020-09-07 08:00] VITALS: BP 143/75
--- NOTE | 2020-09-07 09:13 | NUR ---
This SW informed by nursing that patient's father Arden had requested to speak with patient's physician. DELANEY called patient's daughter Janis, next-of-kin, and asked her if she was fine with Arden participating in the IDT meeting today, along with Janis. Janis expressed agreement. DELANEY then called Arden, , and informed him of the IDT meeting for today. Arden expressed desire to participate in the meeting. DELANEY informed Arden to be available between 11am-12pm to receive this SW's call during the meeting, and Arden expressed agreement.
[2020-09-07] MEDS: HYDROGEN PEROXIDE 3% 118 ML BOTTLE TP SCH ×2 (09:25→21:05)
[2020-09-07] MEDS: levETIRAcetam 500 MG TABLET GT SCH ×2 (09:48→20:03)
[2020-09-07] MEDS: TERAZOSIN 1 MG CAPSULE GT SCH (09:48)
[2020-09-07] MEDS: PHENOBARBITAL 32.4 MG TABLET GT SCH (09:48)
[2020-09-07] MEDS: FAMOTIDINE 20 MG TABLET GT SCH ×2 (09:48→20:03)
[2020-09-07] MEDS: DOCUSATE SODIUM 100 MG/10 ML LIQUID UDC GT SCH ×2 (09:48→20:03)
[2020-09-07] MEDS: COD LIVER OIL/ZINC OXIDE OINT 113 GM TUBE TP SCH ×2 (09:49→20:04)
[2020-09-07] MEDS: ENOXAPARIN SODIUM 40 MG/0.4 ML DISP.SYRIN SQ SCH (09:49)
[2020-09-07] MEDS: LABETALOL HCL 100 MG TABLET GT SCH (09:49)
[2020-09-07] MEDS: VITAMINS A AND D OINT TP SCH ×2 (09:49→20:04)
[2020-09-07] MEDS: COD LIVER OIL/ZINC OXIDE OINT 113 GM TUBE TOP SCH ×4 (09:49→20:04)
[2020-09-07] MEDS: GLUCERNA 1.2 1000ML LIQUID GT PRN (11:53)
--- NOTE | 2020-09-07 14:10 | NUR ---
INTERDISCIPLINARY PLAN OF CARE CONFERENCE was held today. Patient's daughter Janis and patient's father Arden participated in the meeting through speaker phone. Dr. Peralta and the Interdisciplinary team reviewed the current plan of care in detail. RN reported on the patient's medical condition, and status of skin care treatment. No major changes in patient's condition were reported by RN or by the other disciplines. See RN IDT conference notes. See also all other disciplines IDT notes and physician's progress notes for additional details. Arden's and Janis's questions were addressed by Dr. Peralta and the IDT team, and both expressed understanding of the current plan of care.
[2020-09-07 20:02] VITALS: BP 131/77
[2020-09-07] MEDS: MINERAL OIL/PETROLAT OPHT OINT 3.5 GM TUBE EACHEYE SCH (20:03)
[2020-09-07] MEDS: ATORVASTATIN 40 MG TABLET GT SCH (20:03)
[2020-09-07] MEDS: THIAMINE HCL 100 MG TABLET GT SCH (20:03)
[2020-09-08] MEDS: INSULIN REGULAR, HUMAN 300 UNIT/3 ML VIAL SQ PRN ×5 (00:56→23:30)
[2020-09-08] MEDS: GLUCERNA 1.2 1000ML LIQUID GT PRN ×2 (01:14→15:44)
[2020-09-08] MEDS: BLOOD SUGAR DIAGNOSTIC 1 EACH STRIP VI SCH ×4 (05:35→23:28)
[2020-09-08 07:20] VITALS: BP 149/75
[2020-09-08] MEDS: COD LIVER OIL/ZINC OXIDE OINT 113 GM TUBE TOP SCH ×4 (08:50→20:29)
[2020-09-08] MEDS: ENOXAPARIN SODIUM 40 MG/0.4 ML DISP.SYRIN SQ SCH (08:50)
[2020-09-08] MEDS: DOCUSATE SODIUM 100 MG/10 ML LIQUID UDC GT SCH ×2 (08:53→20:25)
[2020-09-08] MEDS: TERAZOSIN 1 MG CAPSULE GT SCH (08:53)
[2020-09-08] MEDS: PHENOBARBITAL 32.4 MG TABLET GT SCH (08:53)
[2020-09-08] MEDS: levETIRAcetam 500 MG TABLET GT SCH ×2 (08:53→20:28)
[2020-09-08] MEDS: FAMOTIDINE 20 MG TABLET GT SCH ×2 (08:53→20:28)
[2020-09-08] MEDS: LABETALOL HCL 100 MG TABLET GT SCH (08:54)
[2020-09-08] MEDS: COD LIVER OIL/ZINC OXIDE OINT 113 GM TUBE TP SCH ×2 (08:54→20:29)
[2020-09-08] MEDS: VITAMINS A AND D OINT TP SCH ×2 (08:54→20:29)
[2020-09-08] MEDS: HYDROGEN PEROXIDE 3% 118 ML BOTTLE TP SCH ×2 (09:00→20:54)
--- NOTE | 2020-09-08 18:42 | NUR ---
Seen and examined By Dr Peralta ,notified pt spike temp 100.4 this morning ,last temp 98.2,new stand by orders carried out,Pt 's father aware.
[2020-09-08 20:02] VITALS: BP 142/73
[2020-09-08] MEDS: MINERAL OIL/PETROLAT OPHT OINT 3.5 GM TUBE EACHEYE SCH (20:24)
[2020-09-08] MEDS: ATORVASTATIN 40 MG TABLET GT SCH (20:28)
[2020-09-08] MEDS: THIAMINE HCL 100 MG TABLET GT SCH (20:29)
[2020-09-09] MEDS: GLUCERNA 1.2 1000ML LIQUID GT PRN ×2 (02:47→17:58)
--- NOTE | 2020-09-09 04:25 | NUR ---
Temperature is 98.0 Fahrenheit, no signs of any distress noted, noted with thick brownish secretions, suctioned frequently as needed, HOB elevated, no seizure episodes noted, kept clean and comfortable, will continue monitor.
[2020-09-09] MEDS: BLOOD SUGAR DIAGNOSTIC 1 EACH STRIP VI SCH ×3 (05:39→17:44)
[2020-09-09] MEDS: INSULIN REGULAR, HUMAN 300 UNIT/3 ML VIAL SQ PRN ×3 (05:42→17:45)
[2020-09-09 07:51] VITALS: BP 96/80
[2020-09-09] MEDS: DOCUSATE SODIUM 100 MG/10 ML LIQUID UDC GT SCH ×2 (08:19→21:20)
[2020-09-09] MEDS: TERAZOSIN 1 MG CAPSULE GT SCH (08:19)
[2020-09-09] MEDS: FAMOTIDINE 20 MG TABLET GT SCH ×2 (08:23→21:23)
[2020-09-09] MEDS: ENOXAPARIN SODIUM 40 MG/0.4 ML DISP.SYRIN SQ SCH (08:23)
[2020-09-09] MEDS: COD LIVER OIL/ZINC OXIDE OINT 113 GM TUBE TOP SCH ×2 (08:23→21:23)
[2020-09-09] MEDS: LABETALOL HCL 100 MG TABLET GT SCH (08:23)
[2020-09-09] MEDS: PHENOBARBITAL 32.4 MG TABLET GT SCH (08:23)
[2020-09-09] MEDS: levETIRAcetam 500 MG TABLET GT SCH ×2 (08:23→21:22)
[2020-09-09] MEDS: COD LIVER OIL/ZINC OXIDE OINT 113 GM TUBE TP SCH ×2 (08:24→21:23)
[2020-09-09] MEDS: VITAMINS A AND D OINT TP SCH ×2 (08:24→21:23)
[2020-09-09] MEDS: HYDROGEN PEROXIDE 3% 118 ML BOTTLE TP SCH ×2 (09:22→21:54)
[2020-09-09 20:00] VITALS: BP 134/77
[2020-09-09] MEDS: MINERAL OIL/PETROLAT OPHT OINT 3.5 GM TUBE EACHEYE SCH (21:20)
[2020-09-09] MEDS: ATORVASTATIN 40 MG TABLET GT SCH (21:22)
[2020-09-09] MEDS: THIAMINE HCL 100 MG TABLET GT SCH (21:23)
[2020-09-10] MEDS: BLOOD SUGAR DIAGNOSTIC 1 EACH STRIP VI SCH ×4 (00:35→17:22)
[2020-09-10] MEDS: INSULIN REGULAR, HUMAN 300 UNIT/3 ML VIAL SQ PRN ×4 (00:40→17:23)
[2020-09-10 07:53] VITALS: BP 150/80
[2020-09-10] MEDS: DOCUSATE SODIUM 100 MG/10 ML LIQUID UDC GT SCH ×2 (08:44→21:11)
[2020-09-10] MEDS: TERAZOSIN 1 MG CAPSULE GT SCH (08:45)
[2020-09-10] MEDS: levETIRAcetam 500 MG TABLET GT SCH ×2 (08:46→21:06)
[2020-09-10] MEDS: FAMOTIDINE 20 MG TABLET GT SCH ×2 (08:46→21:11)
[2020-09-10] MEDS: LABETALOL HCL 100 MG TABLET GT SCH (08:47)
[2020-09-10] MEDS: PHENOBARBITAL 32.4 MG TABLET GT SCH (08:47)
[2020-09-10] MEDS: COD LIVER OIL/ZINC OXIDE OINT 113 GM TUBE TOP SCH ×2 (08:48→21:12)
[2020-09-10] MEDS: COD LIVER OIL/ZINC OXIDE OINT 113 GM TUBE TP SCH ×2 (08:48→21:12)
[2020-09-10] MEDS: ENOXAPARIN SODIUM 40 MG/0.4 ML DISP.SYRIN SQ SCH (08:48)
[2020-09-10] MEDS: VITAMINS A AND D OINT TP SCH ×2 (09:00→21:12)
[2020-09-10] MEDS: GLUCERNA 1.2 1000ML LIQUID GT PRN ×2 (09:01→21:13)
[2020-09-10] MEDS: HYDROGEN PEROXIDE 3% 118 ML BOTTLE TP SCH ×2 (09:04→21:00)
--- NOTE | 2020-09-10 14:00 | NUR ---
Video chat provided with pt's daughter.
[2020-09-10 20:00] VITALS: BP 146/82
[2020-09-10] MEDS: MINERAL OIL/PETROLAT OPHT OINT 3.5 GM TUBE EACHEYE SCH (21:05)
[2020-09-10] MEDS: ATORVASTATIN 40 MG TABLET GT SCH (21:11)
[2020-09-10] MEDS: THIAMINE HCL 100 MG TABLET GT SCH (21:11)
[2020-09-11] MEDS: BLOOD SUGAR DIAGNOSTIC 1 EACH STRIP VI SCH ×5 (00:21→23:23)
[2020-09-11] MEDS: INSULIN REGULAR, HUMAN 300 UNIT/3 ML VIAL SQ PRN ×5 (00:25→23:26)
[2020-09-11 07:30] VITALS: BP 154/85
[2020-09-11] MEDS: DOCUSATE SODIUM 100 MG/10 ML LIQUID UDC GT SCH ×2 (08:44→21:13)
[2020-09-11] MEDS: TERAZOSIN 1 MG CAPSULE GT SCH (08:48)
[2020-09-11] MEDS: levETIRAcetam 500 MG TABLET GT SCH ×2 (08:49→21:14)
[2020-09-11] MEDS: FAMOTIDINE 20 MG TABLET GT SCH ×2 (08:50→21:14)
[2020-09-11] MEDS: PHENOBARBITAL 32.4 MG TABLET GT SCH (08:50)
[2020-09-11] MEDS: LABETALOL HCL 100 MG TABLET GT SCH (08:51)
[2020-09-11] MEDS: COD LIVER OIL/ZINC OXIDE OINT 113 GM TUBE TOP SCH ×2 (08:55→21:14)
[2020-09-11] MEDS: VITAMINS A AND D OINT TP SCH ×2 (08:55→21:15)
[2020-09-11] MEDS: COD LIVER OIL/ZINC OXIDE OINT 113 GM TUBE TP SCH ×2 (08:55→21:15)
[2020-09-11] MEDS: ENOXAPARIN SODIUM 40 MG/0.4 ML DISP.SYRIN SQ SCH (09:00)
[2020-09-11] MEDS: HYDROGEN PEROXIDE 3% 118 ML BOTTLE TP SCH ×2 (09:06→21:19)
[2020-09-11] MEDS: GLUCERNA 1.2 1000ML LIQUID GT PRN (12:48)
[2020-09-11 20:00] VITALS: BP 154/87
[2020-09-11] MEDS: MINERAL OIL/PETROLAT OPHT OINT 3.5 GM TUBE EACHEYE SCH (21:13)
[2020-09-11] MEDS: ATORVASTATIN 40 MG TABLET GT SCH (21:14)
[2020-09-11] MEDS: THIAMINE HCL 100 MG TABLET GT SCH (21:14)
--- NOTE | 2020-09-12 01:26 | NUR ---
Afebrile, trach intact and patent, suctioned with thick yellow secretions, no signs of any distress noted. Temperature is 98.1, fluids given as ordered, kept clean and comfortable, will continue monitor.
[2020-09-12] MEDS: GLUCERNA 1.2 1000ML LIQUID GT PRN ×2 (02:23→17:04)
[2020-09-12] MEDS: ACETAMINOPHEN 650 MG/20.3 ML LIQUID UDC GT PRN (02:25)
[2020-09-12] MEDS: BLOOD SUGAR DIAGNOSTIC 1 EACH STRIP VI SCH ×3 (05:19→17:04)
[2020-09-12] MEDS: INSULIN REGULAR, HUMAN 300 UNIT/3 ML VIAL SQ PRN ×3 (05:27→17:05)
[2020-09-12 07:51] VITALS: BP 159/89
[2020-09-12] MEDS: PHENOBARBITAL 97.2 MG GT SCH ×2 (09:00→09:35)
[2020-09-12] MEDS: TERAZOSIN 1 MG CAPSULE GT SCH (09:20)
[2020-09-12] MEDS: FAMOTIDINE 20 MG TABLET GT SCH ×2 (09:20→21:17)
[2020-09-12] MEDS: levETIRAcetam 500 MG TABLET GT SCH ×2 (09:20→21:17)
[2020-09-12] MEDS: DOCUSATE SODIUM 100 MG/10 ML LIQUID UDC GT SCH ×2 (09:20→21:17)
[2020-09-12] MEDS: COD LIVER OIL/ZINC OXIDE OINT 113 GM TUBE TP SCH ×2 (09:21→21:18)
[2020-09-12] MEDS: LABETALOL HCL 100 MG TABLET GT SCH (09:21)
[2020-09-12] MEDS: ENOXAPARIN SODIUM 40 MG/0.4 ML DISP.SYRIN SQ SCH (09:21)
[2020-09-12] MEDS: HYDROGEN PEROXIDE 3% 118 ML BOTTLE TP SCH ×2 (09:21→21:45)
[2020-09-12] MEDS: COD LIVER OIL/ZINC OXIDE OINT 113 GM TUBE TOP SCH ×2 (09:21→21:18)
[2020-09-12] MEDS: VITAMINS A AND D OINT TP SCH ×2 (09:22→21:18)
--- NOTE | 2020-09-12 17:27 | NUR ---
Dr Rios was aware Pt has a increase of facial twitching,noted more on the L side ,with new orders noted and carried out.
[2020-09-12 18:00] LABS: BASOPHILS % (AUTO) 0.6 % (0.0-2.0); EOSINOPHILS # (AUTO) 0.1 K/uL (0.0-0.7); EOSINOPHILS % (AUTO) 0.9 % (0.0-7.0); HEMATOCRIT 39.5 % (36.7-47.1); HEMOGLOBIN 13.4 g/dL (12.5-16.3); LYMPHOCYTES # (AUTO) 1.2 K/uL (20.0-40.0); LYMPHOCYTES % (AUTO) 21.5 % (20.5-51.5); MEAN CORPUSCULAR HEMOGLOBIN 29.9 uug (23.8-33.4); MEAN CORPUSCULAR HGB CONC 34 g/dL (32.5-36.3); MEAN CORPUSCULAR VOLUME 88.3 fL (73.0-96.2); MONOCYTES # (AUTO) 0.5 K/uL (2.0-10.0); MONOCYTES % (AUTO) 9.5 % (0.0-11.0); NEUTROPHILS # (AUTO) 3.8 K/uL (1.8-8.9); NEUTROPHILS % (AUTO) 67.5 % (38.5-71.5); PLATELET COUNT (AUTO) 310 K/uL (152-348); RED BLOOD CELL COUNT(AUTO) 4.47 MIL/uL (4.06-5.63); WHITE BLOOD COUNT (AUTO) 5.6 K/uL (3.6-10.2)
--- NOTE | 2020-09-12 18:05 | NUR ---
Spoke to Kylie pt's daughter and notified regarding the episodes of increase twitching on the face,and notified her about the new orders ,Pt's father call and notified him about the new orders.
[2020-09-12 18:10] LABS: ALANINE AMINOTRANSFERASE 55 U/L (16-63); ALKALINE PHOSPHATASE 122 U/L (50-136); ASPARTATE AMINOTRANSFERASE 27 U/L (15-37); BILIRUBIN,TOTAL 0.4 mg/dL (0.2-1.0); CARBON DIOXIDE 32 mmol/L (21-32); CHLORIDE 93 mmol/L (98-107); CREATININE 0.5 mg/dL (0.6-1.3); GLUCOSE 176 mg/dL (74-106); MAGNESIUM 2.2 mg/dL (1.8-2.4); PHOSPHOROUS 3.9 mg/dL (2.5-4.9); POTASSIUM 4.4 mmol/L (3.5-5.1); TOTAL PROTEIN, SERUM 6.9 g/dL (6.4-8.2); UREA NITROGEN, BLOOD 15 mg/dL (7-18)
[2020-09-12 20:36] VITALS: BP 137/79
[2020-09-12] MEDS: ATORVASTATIN 40 MG TABLET GT SCH (21:17)
[2020-09-12] MEDS: MINERAL OIL/PETROLAT OPHT OINT 3.5 GM TUBE EACHEYE SCH (21:17)
[2020-09-12] MEDS: THIAMINE HCL 100 MG TABLET GT SCH (21:17)
[2020-09-13] MEDS: BLOOD SUGAR DIAGNOSTIC 1 EACH STRIP VI SCH ×4 (00:41→17:49)
--- NOTE | 2020-09-13 05:50 | NUR ---
no facial twitching noted, afebrile,no respiratory distress noted.
[2020-09-13] MEDS: INSULIN REGULAR, HUMAN 300 UNIT/3 ML VIAL SQ PRN ×4 (06:58→17:50)
[2020-09-13] MEDS: GLUCERNA 1.2 1000ML LIQUID GT PRN ×2 (07:06→21:47)
[2020-09-13 08:00] VITALS: BP 147/80
[2020-09-13] MEDS: HYDROGEN PEROXIDE 3% 118 ML BOTTLE TP SCH ×2 (08:22→19:04)
[2020-09-13] MEDS: TERAZOSIN 1 MG CAPSULE GT SCH (08:23)
[2020-09-13] MEDS: DOCUSATE SODIUM 100 MG/10 ML LIQUID UDC GT SCH ×2 (08:23→20:58)
[2020-09-13] MEDS: COD LIVER OIL/ZINC OXIDE OINT 113 GM TUBE TOP SCH ×2 (08:24→20:58)
[2020-09-13] MEDS: levETIRAcetam 500 MG TABLET GT SCH ×2 (08:24→20:58)
[2020-09-13] MEDS: FAMOTIDINE 20 MG TABLET GT SCH ×2 (08:24→20:58)
[2020-09-13] MEDS: VITAMINS A AND D OINT TP SCH ×2 (08:24→20:59)
[2020-09-13] MEDS: COD LIVER OIL/ZINC OXIDE OINT 113 GM TUBE TP SCH ×2 (08:24→20:58)
[2020-09-13] MEDS: LABETALOL HCL 100 MG TABLET GT SCH (08:24)
[2020-09-13] MEDS: ENOXAPARIN SODIUM 40 MG/0.4 ML DISP.SYRIN SQ SCH (08:33)
[2020-09-13] MEDS: PHENOBARBITAL 97.2 MG GT SCH (08:33)
--- NOTE | 2020-09-13 14:00 | NUR ---
Seen by Dr. Bolivar, notified of patient's condition, phenobarbital level 31.5, no report of facial twitching noted since last night, per Md continue phenobarbital 97.2mg daily.
[2020-09-13 14:33] LABS: PHENOBARBITAL 31.5 ug/mL (15.0-39.0)
--- NOTE | 2020-09-13 18:55 | NUR ---
patient in bed , no s/s of any distress or any facial twitching noted today. will continue monitoring patient.
[2020-09-13] MEDS: ATORVASTATIN 40 MG TABLET GT SCH (20:58)
[2020-09-13] MEDS: THIAMINE HCL 100 MG TABLET GT SCH (20:58)
[2020-09-13] MEDS: MINERAL OIL/PETROLAT OPHT OINT 3.5 GM TUBE EACHEYE SCH (20:58)
[2020-09-14] MEDS: BLOOD SUGAR DIAGNOSTIC 1 EACH STRIP VI SCH ×5 (00:28→23:27)
[2020-09-14] MEDS: INSULIN REGULAR, HUMAN 300 UNIT/3 ML VIAL SQ PRN ×5 (00:45→23:26)
[2020-09-14 07:49] VITALS: BP 153/77
[2020-09-14] MEDS: LABETALOL HCL 100 MG TABLET GT SCH (08:00)
[2020-09-14] MEDS: TERAZOSIN 1 MG CAPSULE GT SCH (08:00)
[2020-09-14] MEDS: FAMOTIDINE 20 MG TABLET GT SCH ×2 (08:15→21:18)
[2020-09-14] MEDS: levETIRAcetam 500 MG TABLET GT SCH ×2 (08:15→21:17)
[2020-09-14] MEDS: COD LIVER OIL/ZINC OXIDE OINT 113 GM TUBE TP SCH ×2 (08:16→21:18)
[2020-09-14] MEDS: COD LIVER OIL/ZINC OXIDE OINT 113 GM TUBE TOP SCH ×2 (08:16→21:18)
[2020-09-14] MEDS: DOCUSATE SODIUM 100 MG/10 ML LIQUID UDC GT SCH ×2 (08:16→21:16)
[2020-09-14] MEDS: PHENOBARBITAL 97.2 MG GT SCH (08:16)
[2020-09-14] MEDS: ENOXAPARIN SODIUM 40 MG/0.4 ML DISP.SYRIN SQ SCH (08:33)
[2020-09-14] MEDS: HYDROGEN PEROXIDE 3% 118 ML BOTTLE TP SCH ×2 (09:42→21:00)
[2020-09-14] MEDS: VITAMINS A AND D OINT TP SCH ×2 (09:58→21:18)
[2020-09-14] MEDS: GLUCERNA 1.2 1000ML LIQUID GT PRN (11:00)
--- NOTE | 2020-09-14 11:00 | NUR ---
video chat done with patient's daughter and friend.
[2020-09-14 20:21] VITALS: BP 140/86
[2020-09-14] MEDS: MINERAL OIL/PETROLAT OPHT OINT 3.5 GM TUBE EACHEYE SCH (21:16)
[2020-09-14] MEDS: ATORVASTATIN 40 MG TABLET GT SCH (21:17)
[2020-09-14] MEDS: THIAMINE HCL 100 MG TABLET GT SCH (21:18)
[2020-09-15] MEDS: GLUCERNA 1.2 1000ML LIQUID GT PRN (00:39)
[2020-09-15] MEDS: BLOOD SUGAR DIAGNOSTIC 1 EACH STRIP VI SCH ×3 (05:31→17:14)
[2020-09-15] MEDS: INSULIN REGULAR, HUMAN 300 UNIT/3 ML VIAL SQ PRN ×3 (05:33→17:16)
[2020-09-15 07:49] VITALS: BP 154/83
[2020-09-15] MEDS: DOCUSATE SODIUM 100 MG/10 ML LIQUID UDC GT SCH ×2 (08:48→21:12)
[2020-09-15] MEDS: PHENOBARBITAL 97.2 MG GT SCH (08:53)
[2020-09-15] MEDS: levETIRAcetam 500 MG TABLET GT SCH ×2 (08:54→21:12)
[2020-09-15] MEDS: TERAZOSIN 1 MG CAPSULE GT SCH (08:54)
[2020-09-15] MEDS: LABETALOL HCL 100 MG TABLET GT SCH (08:55)
[2020-09-15] MEDS: FAMOTIDINE 20 MG TABLET GT SCH ×2 (08:55→21:12)
[2020-09-15] MEDS: COD LIVER OIL/ZINC OXIDE OINT 113 GM TUBE TOP SCH ×2 (08:56→21:12)
[2020-09-15] MEDS: ENOXAPARIN SODIUM 40 MG/0.4 ML DISP.SYRIN SQ SCH (08:57)
[2020-09-15] MEDS: COD LIVER OIL/ZINC OXIDE OINT 113 GM TUBE TP SCH ×2 (08:57→21:12)
[2020-09-15] MEDS: VITAMINS A AND D OINT TP SCH ×2 (09:00→21:13)
[2020-09-15] MEDS: HYDROGEN PEROXIDE 3% 118 ML BOTTLE TP SCH ×2 (09:37→21:22)
--- NOTE | 2020-09-15 19:10 | NUR ---
Seen and examined By Dr Peralta,no new orders noted
[2020-09-15 20:00] VITALS: BP 132/73
[2020-09-15] MEDS: ATORVASTATIN 40 MG TABLET GT SCH (21:12)
[2020-09-15] MEDS: THIAMINE HCL 100 MG TABLET GT SCH (21:12)
[2020-09-15] MEDS: MINERAL OIL/PETROLAT OPHT OINT 3.5 GM TUBE EACHEYE SCH (21:12)
--- NOTE | 2020-09-15 23:13 | NUR ---
Afebrile, trach is intact and patent, no signs of any distress noted. No seizure episodes noted at this time, kept clean and comfortable, will continue monitor.
[2020-09-16] MEDS: BLOOD SUGAR DIAGNOSTIC 1 EACH STRIP VI SCH ×4 (00:08→17:05)
[2020-09-16] MEDS: INSULIN REGULAR, HUMAN 300 UNIT/3 ML VIAL SQ PRN ×4 (00:11→17:08)
[2020-09-16] MEDS: GLUCERNA 1.2 1000ML LIQUID GT PRN (03:37)
[2020-09-16 07:46] VITALS: BP 167/91
[2020-09-16] MEDS: PHENOBARBITAL 97.2 MG GT SCH (08:04)
[2020-09-16] MEDS: DOCUSATE SODIUM 100 MG/10 ML LIQUID UDC GT SCH ×2 (08:04→21:10)
[2020-09-16] MEDS: levETIRAcetam 500 MG TABLET GT SCH ×2 (08:05→21:10)
[2020-09-16] MEDS: FAMOTIDINE 20 MG TABLET GT SCH ×2 (08:05→21:11)
[2020-09-16] MEDS: LABETALOL HCL 100 MG TABLET GT SCH (08:08)
[2020-09-16] MEDS: TERAZOSIN 1 MG CAPSULE GT SCH (08:08)
[2020-09-16] MEDS: VITAMINS A AND D OINT TP SCH ×2 (08:10→21:12)
[2020-09-16] MEDS: COD LIVER OIL/ZINC OXIDE OINT 113 GM TUBE TOP SCH ×2 (08:10→21:12)
[2020-09-16] MEDS: COD LIVER OIL/ZINC OXIDE OINT 113 GM TUBE TP SCH ×2 (08:10→21:12)
[2020-09-16] MEDS: ENOXAPARIN SODIUM 40 MG/0.4 ML DISP.SYRIN SQ SCH (08:15)
[2020-09-16] MEDS: HYDROGEN PEROXIDE 3% 118 ML BOTTLE TP SCH ×2 (09:46→21:30)
--- NOTE | 2020-09-16 14:00 | NUR ---
zoom provided to patient with son and daughter.
[2020-09-16 20:00] VITALS: BP 133/80
[2020-09-16] MEDS: MINERAL OIL/PETROLAT OPHT OINT 3.5 GM TUBE EACHEYE SCH (21:10)
[2020-09-16] MEDS: ATORVASTATIN 40 MG TABLET GT SCH (21:11)
[2020-09-16] MEDS: THIAMINE HCL 100 MG TABLET GT SCH (21:12)
[2020-09-17] MEDS: GLUCERNA 1.2 1000ML LIQUID GT PRN ×2 (00:20→14:08)
[2020-09-17] MEDS: BLOOD SUGAR DIAGNOSTIC 1 EACH STRIP VI SCH ×5 (00:39→23:09)
[2020-09-17] MEDS: INSULIN REGULAR, HUMAN 300 UNIT/3 ML VIAL SQ PRN ×5 (00:41→23:08)
[2020-09-17 07:57] VITALS: BP 147/82
[2020-09-17] MEDS: DOCUSATE SODIUM 100 MG/10 ML LIQUID UDC GT SCH ×2 (08:07→20:11)
[2020-09-17] MEDS: LABETALOL HCL 100 MG TABLET GT SCH (08:07)
[2020-09-17] MEDS: FAMOTIDINE 20 MG TABLET GT SCH ×2 (08:07→20:11)
[2020-09-17] MEDS: PHENOBARBITAL 97.2 MG GT SCH (08:07)
[2020-09-17] MEDS: TERAZOSIN 1 MG CAPSULE GT SCH (08:07)
[2020-09-17] MEDS: levETIRAcetam 500 MG TABLET GT SCH ×2 (08:07→20:11)
[2020-09-17] MEDS: VITAMINS A AND D OINT TP SCH ×2 (08:08→20:11)
[2020-09-17] MEDS: COD LIVER OIL/ZINC OXIDE OINT 113 GM TUBE TP SCH ×2 (08:08→20:11)
[2020-09-17] MEDS: COD LIVER OIL/ZINC OXIDE OINT 113 GM TUBE TOP SCH ×2 (08:08→20:11)
[2020-09-17] MEDS: ENOXAPARIN SODIUM 40 MG/0.4 ML DISP.SYRIN SQ SCH (08:11)
[2020-09-17 08:19] VITALS: BP 141/79
[2020-09-17] MEDS: HYDROGEN PEROXIDE 3% 118 ML BOTTLE TP SCH ×2 (09:00→21:50)
[2020-09-17 19:52] VITALS: BP 148/79
[2020-09-17] MEDS: MINERAL OIL/PETROLAT OPHT OINT 3.5 GM TUBE EACHEYE SCH (20:11)
[2020-09-17] MEDS: ATORVASTATIN 40 MG TABLET GT SCH (20:11)
[2020-09-17] MEDS: THIAMINE HCL 100 MG TABLET GT SCH (20:11)
[2020-09-18] MEDS: GLUCERNA 1.2 1000ML LIQUID GT PRN ×2 (01:27→17:19)
[2020-09-18] MEDS: BLOOD SUGAR DIAGNOSTIC 1 EACH STRIP VI SCH ×4 (05:09→23:22)
[2020-09-18] MEDS: INSULIN REGULAR, HUMAN 300 UNIT/3 ML VIAL SQ PRN ×4 (05:10→23:21)
[2020-09-18 07:51] VITALS: BP 150/88
[2020-09-18] MEDS: DOCUSATE SODIUM 100 MG/10 ML LIQUID UDC GT SCH ×2 (08:54→20:13)
[2020-09-18] MEDS: PHENOBARBITAL 97.2 MG GT SCH (08:55)
[2020-09-18] MEDS: levETIRAcetam 500 MG TABLET GT SCH ×2 (08:56→20:13)
[2020-09-18] MEDS: FAMOTIDINE 20 MG TABLET GT SCH ×2 (08:58→20:13)
[2020-09-18] MEDS: COD LIVER OIL/ZINC OXIDE OINT 113 GM TUBE TP SCH ×2 (08:59→20:13)
[2020-09-18] MEDS: LABETALOL HCL 100 MG TABLET GT SCH (08:59)
[2020-09-18] MEDS: VITAMINS A AND D OINT TP SCH ×2 (08:59→20:13)
[2020-09-18] MEDS: COD LIVER OIL/ZINC OXIDE OINT 113 GM TUBE TOP SCH ×2 (08:59→20:13)
[2020-09-18] MEDS: ENOXAPARIN SODIUM 40 MG/0.4 ML DISP.SYRIN SQ SCH (09:01)
[2020-09-18] MEDS: HYDROGEN PEROXIDE 3% 118 ML BOTTLE TP SCH ×2 (09:05→21:50)
[2020-09-18] MEDS: TERAZOSIN 1 MG CAPSULE GT SCH (09:09)
--- NOTE | 2020-09-18 14:45 | NUR ---
zoom provided for patient with father.
[2020-09-18 19:17] VITALS: BP 145/78
[2020-09-18] MEDS: THIAMINE HCL 100 MG TABLET GT SCH (20:13)
[2020-09-18] MEDS: MINERAL OIL/PETROLAT OPHT OINT 3.5 GM TUBE EACHEYE SCH (20:13)
[2020-09-18] MEDS: ATORVASTATIN 40 MG TABLET GT SCH (20:13)
[2020-09-19] MEDS: LORAZEPAM 1 MG TABLET GT PRN ×2 (04:52→23:10)
[2020-09-19 04:54] VITALS: BP 167/87
--- NOTE | 2020-09-19 04:54 | NUR ---
Patient noted with mouth twitching and continuous jerking of right leg X 2 minutes patient noted with increased salivation, HOB is elevated and head was turned to the side, seizure precaution was observed, Ativan given via gt as ordered. Vital signs as follows: B/P: 167/87 HR: 103 T: 98.4 Fahrenheit RR: 28 02 sat is 100%, suctioned as needed d/t increased salivation and secretions. Kept clean and comfortable, will continue monitor.
[2020-09-19 04:56] VITALS: BP 168/88
--- NOTE | 2020-09-19 04:56 | NUR ---
Hydralazine was given as ordered for SBP more than 160 and above: B/P: 168/88, will continue monitor.
[2020-09-19] MEDS: hydrALAZINE HCL 25 MG TABLET GT PRN (05:10)
[2020-09-19] MEDS: BLOOD SUGAR DIAGNOSTIC 1 EACH STRIP VI SCH ×4 (05:19→23:04)
[2020-09-19] MEDS: INSULIN REGULAR, HUMAN 300 UNIT/3 ML VIAL SQ PRN ×4 (05:20→23:05)
[2020-09-19 05:56] VITALS: BP 149/81
--- NOTE | 2020-09-19 05:56 | NUR ---
Rechecked on patient is sleeping, no twitching or leg jerking noted, no drooling, still on seizure precaution, BP: 149/81 HR: 98 02 Sat: 99% RR: 21, kept clean and comfortable, will continue monitor.
[2020-09-19 06:24] VITALS: BP 127/71
--- NOTE | 2020-09-19 06:25 | NUR ---
Patient's eyes are closed, trach intact and patent, suctioned with large thick yellow secretions, no signs of seizures noted at this time, afebrile, Temp is 97.7 B/P 127/71 HR: 90 RR: 20 02 sat: 99% , no signs of any discomfort, still on seizure precaution, kept clean and comfortable. Addendum: 09/19/20 at 708 by ISRRAEL ESTEVES RN Chucky BARROS environmental coordinator), awaiting to call back. Addendum: 09/19/20 at 726 by ISRRAEL ESTEVES RN Left Message to Janis (Daughter) to call back the facility, awaiting to call back.
--- NOTE | 2020-09-19 07:15 | NUR ---
Called patient's daughter (Janis) And left message to call back facility.
[2020-09-19] MEDS: PHENOBARBITAL 97.2 MG GT SCH (08:39)
[2020-09-19] MEDS: DOCUSATE SODIUM 100 MG/10 ML LIQUID UDC GT SCH ×2 (08:39→20:24)
[2020-09-19] MEDS: TERAZOSIN 1 MG CAPSULE GT SCH (08:40)
[2020-09-19] MEDS: levETIRAcetam 500 MG TABLET GT SCH ×2 (08:40→20:24)
[2020-09-19] MEDS: COD LIVER OIL/ZINC OXIDE OINT 113 GM TUBE TOP SCH ×2 (08:41→20:24)
[2020-09-19] MEDS: LABETALOL HCL 100 MG TABLET GT SCH (08:41)
[2020-09-19] MEDS: FAMOTIDINE 20 MG TABLET GT SCH ×2 (08:41→20:24)
[2020-09-19] MEDS: ENOXAPARIN SODIUM 40 MG/0.4 ML DISP.SYRIN SQ SCH (08:41)
[2020-09-19 08:42] VITALS: BP 158/73
[2020-09-19] MEDS: VITAMINS A AND D OINT TP SCH ×2 (08:42→20:24)
[2020-09-19] MEDS: COD LIVER OIL/ZINC OXIDE OINT 113 GM TUBE TP SCH ×2 (08:42→20:24)
[2020-09-19] MEDS: GLUCERNA 1.2 1000ML LIQUID GT PRN (09:31)
[2020-09-19] MEDS: HYDROGEN PEROXIDE 3% 118 ML BOTTLE TP SCH ×2 (09:55→21:05)
[2020-09-19 19:50] VITALS: BP 147/78
[2020-09-19] MEDS: ATORVASTATIN 40 MG TABLET GT SCH (20:24)
[2020-09-19] MEDS: THIAMINE HCL 100 MG TABLET GT SCH (20:24)
[2020-09-19] MEDS: MINERAL OIL/PETROLAT OPHT OINT 3.5 GM TUBE EACHEYE SCH (20:24)
--- NOTE | 2020-09-19 23:11 | NUR ---
RESIDENT NOTED WITH SLIGHT FACIAL TWITCHING AND CONTINUOUS JERKING OF RIGHT LEG X2 MINUTES. SEIZURE PRECAUTIONS IMPLEMENTED AND ATIVAN 1MG TABLET GIVEN VIA GT PRN ORDERED. WILL CONTINUE TO MONITOR.
--- NOTE | 2020-09-20 00:01 | NUR ---
RESIDENT NPO DUE TO PENDING LAB DRAW IN AM
[2020-09-20] MEDS: INSULIN REGULAR, HUMAN 300 UNIT/3 ML VIAL SQ PRN ×3 (05:09→17:10)
[2020-09-20] MEDS: BLOOD SUGAR DIAGNOSTIC 1 EACH STRIP VI SCH ×3 (05:09→17:10)
[2020-09-20 06:53] LABS: ALANINE AMINOTRANSFERASE 53 U/L (16-63); ALKALINE PHOSPHATASE 112 U/L (50-136); ASPARTATE AMINOTRANSFERASE 26 U/L (15-37); BILIRUBIN,TOTAL 0.4 mg/dL (0.2-1.0); CARBON DIOXIDE 31 mmol/L (21-32); CHLORIDE 93 mmol/L (98-107); CHOLESTEROL 174 mg/dL (<200); CREATININE 0.5 mg/dL (0.6-1.3); GLUCOSE 149 mg/dL (74-106); HDL CHOLESTEROL 44 mg/dL (40-60); POTASSIUM 3.8 mmol/L (3.5-5.1); TOTAL PROTEIN, SERUM 6.8 g/dL (6.4-8.2); TRIGLYCERIDES 141 MG/DL (30-150); UREA NITROGEN, BLOOD 12 mg/dL (7-18)
[2020-09-20 07:08] LABS: BASOPHILS % (AUTO) 0.5 % (0.0-2.0); EOSINOPHILS # (AUTO) 0.1 K/uL (0.0-0.7); EOSINOPHILS % (AUTO) 1.1 % (0.0-7.0); HEMATOCRIT 33.3 % (36.7-47.1); HEMOGLOBIN 11.7 g/dL (12.5-16.3); LYMPHOCYTES # (AUTO) 1.2 K/uL (20.0-40.0); LYMPHOCYTES % (AUTO) 19.5 % (20.5-51.5); MEAN CORPUSCULAR HEMOGLOBIN 30.7 uug (23.8-33.4); MEAN CORPUSCULAR HGB CONC 35 g/dL (32.5-36.3); MEAN CORPUSCULAR VOLUME 87.4 fL (73.0-96.2); MONOCYTES # (AUTO) 0.6 K/uL (2.0-10.0); MONOCYTES % (AUTO) 9.6 % (0.0-11.0); NEUTROPHILS # (AUTO) 4.4 K/uL (1.8-8.9); NEUTROPHILS % (AUTO) 69.3 % (38.5-71.5); PLATELET COUNT (AUTO) 288 K/uL (152-348); RED BLOOD CELL COUNT(AUTO) 3.81 MIL/uL (4.06-5.63); WHITE BLOOD COUNT (AUTO) 6.3 K/uL (3.6-10.2)
[2020-09-20 07:43] VITALS: BP 155/98
[2020-09-20] MEDS: PHENOBARBITAL 97.2 MG GT SCH (08:29)
[2020-09-20] MEDS: DOCUSATE SODIUM 100 MG/10 ML LIQUID UDC GT SCH ×2 (08:29→20:08)
[2020-09-20] MEDS: TERAZOSIN 1 MG CAPSULE GT SCH (08:30)
[2020-09-20] MEDS: FAMOTIDINE 20 MG TABLET GT SCH ×2 (08:31→20:08)
[2020-09-20] MEDS: levETIRAcetam 500 MG TABLET GT SCH ×2 (08:31→20:08)
[2020-09-20] MEDS: LABETALOL HCL 100 MG TABLET GT SCH (08:31)
[2020-09-20] MEDS: COD LIVER OIL/ZINC OXIDE OINT 113 GM TUBE TOP SCH ×2 (08:32→20:08)
[2020-09-20] MEDS: VITAMINS A AND D OINT TP SCH ×2 (08:32→20:09)
[2020-09-20] MEDS: ENOXAPARIN SODIUM 40 MG/0.4 ML DISP.SYRIN SQ SCH (08:32)
[2020-09-20] MEDS: COD LIVER OIL/ZINC OXIDE OINT 113 GM TUBE TP SCH ×2 (08:32→20:08)
[2020-09-20] MEDS: HYDROGEN PEROXIDE 3% 118 ML BOTTLE TP SCH ×2 (09:51→20:09)
[2020-09-20] MEDS: GLUCERNA 1.2 1000ML LIQUID GT PRN (12:19)
[2020-09-20 20:00] VITALS: BP 150/83
[2020-09-20] MEDS: THIAMINE HCL 100 MG TABLET GT SCH (20:08)
[2020-09-20] MEDS: MINERAL OIL/PETROLAT OPHT OINT 3.5 GM TUBE EACHEYE SCH (20:08)
[2020-09-20] MEDS: ATORVASTATIN 40 MG TABLET GT SCH (20:08)
[2020-09-21] MEDS: BLOOD SUGAR DIAGNOSTIC 1 EACH STRIP VI SCH ×4 (01:00→17:00)
[2020-09-21] MEDS: INSULIN REGULAR, HUMAN 300 UNIT/3 ML VIAL SQ PRN ×3 (02:06→17:07)
[2020-09-21] MEDS: HYDROGEN PEROXIDE 3% 118 ML BOTTLE TP SCH ×2 (07:26→21:17)
[2020-09-21 07:41] VITALS: BP 140/80
[2020-09-21] MEDS: DOCUSATE SODIUM 100 MG/10 ML LIQUID UDC GT SCH ×2 (08:43→21:22)
[2020-09-21] MEDS: PHENOBARBITAL 97.2 MG GT SCH (08:49)
[2020-09-21] MEDS: COD LIVER OIL/ZINC OXIDE OINT 113 GM TUBE TOP SCH ×2 (08:51→21:26)
[2020-09-21] MEDS: LABETALOL HCL 100 MG TABLET GT SCH (08:51)
[2020-09-21] MEDS: TERAZOSIN 1 MG CAPSULE GT SCH (08:51)
[2020-09-21] MEDS: levETIRAcetam 500 MG TABLET GT SCH ×2 (08:51→21:24)
[2020-09-21] MEDS: FAMOTIDINE 20 MG TABLET GT SCH ×2 (08:51→21:24)
[2020-09-21] MEDS: VITAMINS A AND D OINT TP SCH ×2 (08:52→21:26)
[2020-09-21] MEDS: COD LIVER OIL/ZINC OXIDE OINT 113 GM TUBE TP SCH ×2 (08:52→21:26)
[2020-09-21] MEDS: ENOXAPARIN SODIUM 40 MG/0.4 ML DISP.SYRIN SQ SCH (08:53)
--- NOTE | 2020-09-21 11:35 | NUR ---
DELANEY followed up with Malorie at Dr. Murray's office, regarding the optometry exam that was requested on 08/24 (see SS note). Malorie stated that Dr. Murray would be returning to the office on 09/23, and she would then coordinate a date with him and call this SW back to confirm date. DELANEY expressed agreement. SW to follow-up with Malorie, if needed.
[2020-09-21] MEDS: GLUCERNA 1.2 1000ML LIQUID GT PRN (16:54)
--- NOTE | 2020-09-21 19:10 | NUR ---
Patient in bed, noted that his legs,hands and facial twitching for 2 about minutes, ativan 1mg gtube given as order for seizures. will continue monitoring patient. Charge nurse was notified.
[2020-09-21] MEDS: LORAZEPAM 1 MG TABLET GT PRN (19:14)
--- NOTE | 2020-09-21 19:25 | NUR ---
Patient is in bed, on seizure precaution, HOB elevated and head is turned to the side. Eyes closed and patient appears to be sleeping, no twitching noted at this time, suctioned with yellow thick secretions, kept clean and comfortable. Lights turned down, provided with a quiet room, will continue monitor.
[2020-09-21 19:53] VITALS: BP 135/81
[2020-09-21] MEDS: ACETAMINOPHEN 650 MG/20.3 ML LIQUID UDC GT PRN (21:00)
[2020-09-21] MEDS: MINERAL OIL/PETROLAT OPHT OINT 3.5 GM TUBE EACHEYE SCH (21:21)
[2020-09-21] MEDS: ATORVASTATIN 40 MG TABLET GT SCH (21:24)
[2020-09-21 21:25] VITALS: BP 168/88
[2020-09-21] MEDS: THIAMINE HCL 100 MG TABLET GT SCH (21:25)
[2020-09-21] MEDS: hydrALAZINE HCL 25 MG TABLET GT PRN (21:26)
--- NOTE | 2020-09-21 21:26 | NUR ---
Rechecked on patient, no twitching or any jerking noted, B/P was 168/88, HR: 105, 02 sat: 100%. Tylenol and hydralazine was given as ordered, kept clean and and comfortable, will continue monitor.
[2020-09-21 22:00] VITALS: BP 145/78
--- NOTE | 2020-09-21 22:30 | NUR ---
Patient's eye are closed and patient appears to be sleeping, no seizure episodes noted, no twitching, jerking or eye rolling noted. On aspiration and seizure precaution, kept clean and comfortable, will continue monitor.
[2020-09-22] VITALS: BP 148/78
[2020-09-22] MEDS: BLOOD SUGAR DIAGNOSTIC 1 EACH STRIP VI SCH ×4 (00:17→17:02)
[2020-09-22] MEDS: INSULIN REGULAR, HUMAN 300 UNIT/3 ML VIAL SQ PRN ×4 (00:22→17:03)
--- NOTE | 2020-09-22 03:35 | NUR ---
Patient is afebrile, no signs of any seizure episodes noted, no signs of any distress noted, kept clean and comfortable, will continue monitor.
[2020-09-22 05:30] VITALS: BP 153/88
--- NOTE | 2020-09-22 05:30 | NUR ---
Patient noted with right leg jerking and some facial twitching for approximately 45 seconds, patient is afebrile, T: 98.7 02 sat: 99% RR:26 MO: 101 Bp: 153/88 Blood Sugar: 151, HOB elevated, on aspiration and seizure precautions, Ativan given via gt as ordered, kept patient clean and comfortable, will continue monitor.
[2020-09-22] MEDS: LORAZEPAM 1 MG TABLET GT PRN (05:35)
[2020-09-22] MEDS: GLUCERNA 1.2 1000ML LIQUID GT PRN ×2 (06:09→21:59)
--- NOTE | 2020-09-22 06:12 | NUR ---
Patient appears calm, no twitching or jerking noted, afebrile, no signs of any seizures at this time, no signs of any respiratory distress at this time, will continue monitor.
[2020-09-22 06:58] VITALS: BP 143/77
[2020-09-22 07:44] VITALS: BP 166/90
[2020-09-22 08:33] VITALS: BP 131/79
[2020-09-22] MEDS: PHENOBARBITAL 97.2 MG GT SCH (08:36)
[2020-09-22] MEDS: DOCUSATE SODIUM 100 MG/10 ML LIQUID UDC GT SCH ×2 (08:36→21:51)
[2020-09-22] MEDS: levETIRAcetam 500 MG TABLET GT SCH ×2 (08:36→21:52)
[2020-09-22] MEDS: LABETALOL HCL 100 MG TABLET GT SCH (08:36)
[2020-09-22] MEDS: FAMOTIDINE 20 MG TABLET GT SCH ×2 (08:36→21:52)
[2020-09-22] MEDS: TERAZOSIN 1 MG CAPSULE GT SCH (08:37)
[2020-09-22] MEDS: ENOXAPARIN SODIUM 40 MG/0.4 ML DISP.SYRIN SQ SCH (08:37)
[2020-09-22] MEDS: COD LIVER OIL/ZINC OXIDE OINT 113 GM TUBE TOP SCH ×2 (08:39→21:53)
[2020-09-22] MEDS: VITAMINS A AND D OINT TP SCH ×2 (08:40→21:54)
[2020-09-22] MEDS: COD LIVER OIL/ZINC OXIDE OINT 113 GM TUBE TP SCH ×2 (08:40→21:54)
[2020-09-22] MEDS: HYDROGEN PEROXIDE 3% 118 ML BOTTLE TP SCH ×2 (09:05→21:00)
--- NOTE | 2020-09-22 18:50 | NUR ---
Pt has alight R leg jerking,on close observation,clarification of orders for Ativan carried out,to be given prn for seizures and increase spasm,will monitor for episodes of seizures and increase spasm every shift.
--- NOTE | 2020-09-22 19:30 | NUR ---
Patient is sleeping, appears comfortable, no signs of jerking or twitching noted. Gt feeding tolerating well, no vomiting, turned and repositioned, kept clean and comfortable.
[2020-09-22 19:59] VITALS: BP 138/68
[2020-09-22] MEDS: MINERAL OIL/PETROLAT OPHT OINT 3.5 GM TUBE EACHEYE SCH (21:51)
[2020-09-22] MEDS: THIAMINE HCL 100 MG TABLET GT SCH (21:52)
[2020-09-22] MEDS: ATORVASTATIN 40 MG TABLET GT SCH (21:52)
[2020-09-23] MEDS: BLOOD SUGAR DIAGNOSTIC 1 EACH STRIP VI SCH ×4 (00:17→17:36)
[2020-09-23] MEDS: INSULIN REGULAR, HUMAN 300 UNIT/3 ML VIAL SQ PRN ×4 (00:17→17:36)
--- NOTE | 2020-09-23 02:59 | NUR ---
Afebrile, no jerking or twitching noted, no signs of any distress noted, kept clean and comfortable.
[2020-09-23 07:32] VITALS: BP 152/88
[2020-09-23] MEDS: DOCUSATE SODIUM 100 MG/10 ML LIQUID UDC GT SCH ×2 (08:57→21:00)
[2020-09-23] MEDS: PHENOBARBITAL 97.2 MG GT SCH (08:58)
[2020-09-23] MEDS: FAMOTIDINE 20 MG TABLET GT SCH ×2 (08:59→21:00)
[2020-09-23] MEDS: TERAZOSIN 1 MG CAPSULE GT SCH (08:59)
[2020-09-23] MEDS: LABETALOL HCL 100 MG TABLET GT SCH (08:59)
[2020-09-23] MEDS: levETIRAcetam 500 MG TABLET GT SCH ×2 (08:59→21:00)
[2020-09-23] MEDS: COD LIVER OIL/ZINC OXIDE OINT 113 GM TUBE TOP SCH ×2 (09:00→21:00)
[2020-09-23] MEDS: VITAMINS A AND D OINT TP SCH ×2 (09:00→21:00)
[2020-09-23] MEDS: COD LIVER OIL/ZINC OXIDE OINT 113 GM TUBE TP SCH ×2 (09:00→21:00)
[2020-09-23] MEDS: ENOXAPARIN SODIUM 40 MG/0.4 ML DISP.SYRIN SQ SCH (09:04)
[2020-09-23] MEDS: HYDROGEN PEROXIDE 3% 118 ML BOTTLE TP SCH ×2 (09:05→21:39)
--- NOTE | 2020-09-23 13:51 | NUR ---
DELANEY called patient's daughter Janis, , and informed her that the next IDT meeting for the patient is scheduled for Friday 09/28. DELANEY asked Janis if she wanted to participate on speaker phone, and Janis expressed agreement. DELANEY asked Janis to be available between 11am-12pm on 09/28 to received the IDT team's phone call. Janis also asked to include patient's father, and therefore DELANEY will also contact patient's father Arden. Janis informed this DELANEY that she needed help with making some changes to patient's medi-abena. DELANEY stated that DELANEY will have the patient cosmetic account coordinator Tiana contact Janis, and Janis expressed agreement.
--- NOTE | 2020-09-23 13:58 | NUR ---
DELANEY notified Tiana Lion, [facility] patient director of accounts receivable, , of family's needs, and asked Tiana to please contact patient's daughter Janis to provide assistance with Medi-abena questions.
--- NOTE | 2020-09-23 14:01 | NUR ---
DELANEY left a voicemail message for patient's father Arden, , letting him know that the next IDT meeting for the patient is scheduled for Sunday, 09/28 at 11am. DELANEY asked Arden to let this SW know if Arden would like to participate in the meeting through speaker phone.
[2020-09-23] MEDS: GLUCERNA 1.2 1000ML LIQUID GT PRN (14:05)
--- NOTE | 2020-09-23 14:55 | NUR ---
DELANEY received a call back from patient's father Arden [phone] in response to the voicemail message this SW had left him earlier. Arden stated that he would like to participate in the IDT meeting on 09/28. DELANEY asked Adren to be available between 11am-12pm on 09/28 to receive the team's phone call. Arden expressed agreement.
[2020-09-23 20:21] VITALS: BP 135/73
[2020-09-23] MEDS: MINERAL OIL/PETROLAT OPHT OINT 3.5 GM TUBE EACHEYE SCH (21:00)
[2020-09-23] MEDS: THIAMINE HCL 100 MG TABLET GT SCH (21:00)
[2020-09-23] MEDS: ATORVASTATIN 40 MG TABLET GT SCH (21:00)
[2020-09-24] MEDS: BLOOD SUGAR DIAGNOSTIC 1 EACH STRIP VI SCH ×5 (00:18→23:56)
[2020-09-24] MEDS: INSULIN REGULAR, HUMAN 300 UNIT/3 ML VIAL SQ PRN ×4 (00:19→17:24)
[2020-09-24] MEDS: GLUCERNA 1.2 1000ML LIQUID GT PRN ×2 (03:45→18:11)
--- NOTE | 2020-09-24 06:31 | NUR ---
Patient is afebrile, no signs of seizures noted, no twitching or jerking noted, patient's eyes are closed. On seizure and aspiration precaution, no signs of any distress noted. Kept patient and comfortable, will continue monitor.
[2020-09-24 07:29] VITALS: BP 177/90
[2020-09-24] MEDS: DOCUSATE SODIUM 100 MG/10 ML LIQUID UDC GT SCH ×2 (08:08→21:26)
[2020-09-24] MEDS: PHENOBARBITAL 97.2 MG GT SCH (08:09)
[2020-09-24] MEDS: TERAZOSIN 1 MG CAPSULE GT SCH (08:09)
[2020-09-24] MEDS: levETIRAcetam 500 MG TABLET GT SCH ×2 (08:10→21:27)
[2020-09-24] MEDS: FAMOTIDINE 20 MG TABLET GT SCH ×2 (08:10→21:29)
[2020-09-24] MEDS: LABETALOL HCL 100 MG TABLET GT SCH (08:10)
[2020-09-24] MEDS: ENOXAPARIN SODIUM 40 MG/0.4 ML DISP.SYRIN SQ SCH (08:11)
[2020-09-24] MEDS: COD LIVER OIL/ZINC OXIDE OINT 113 GM TUBE TP SCH ×2 (08:11→21:30)
[2020-09-24] MEDS: COD LIVER OIL/ZINC OXIDE OINT 113 GM TUBE TOP SCH ×2 (08:11→21:31)
[2020-09-24] MEDS: LORAZEPAM 1 MG TABLET GT PRN ×2 (08:14→21:31)
[2020-09-24] MEDS: HYDROGEN PEROXIDE 3% 118 ML BOTTLE TP SCH ×2 (09:41→21:46)
[2020-09-24] MEDS: VITAMINS A AND D OINT TP SCH ×2 (09:45→21:31)
--- NOTE | 2020-09-24 13:52 | NUR ---
SW received a message from Malorie at Dr. Murray's office stating that Dr. Murray will be in on 09/29 to see the patient for her initial eye exam.
[2020-09-24 19:40] VITALS: BP 147/87
[2020-09-24] MEDS: MINERAL OIL/PETROLAT OPHT OINT 3.5 GM TUBE EACHEYE SCH (21:24)
[2020-09-24] MEDS: ATORVASTATIN 40 MG TABLET GT SCH (21:28)
[2020-09-24] MEDS: THIAMINE HCL 100 MG TABLET GT SCH (21:30)
--- NOTE | 2020-09-24 21:30 | NUR ---
Noted patient with twitching on right leg, patient is afebrile, on aspiration and seizure, HOB elevated, head is turned to the side, Ativan was given by the nurse as ordered, no adverse reactions noted. Kept patient clean and comfortable.
--- NOTE | 2020-09-24 22:30 | NUR ---
No twitching or jerking noted, afebrile, no eye rolling noted, eyes are closed and appears to be sleeping, no signs of any distress noted. kept kept patient clean and comfortable, will continue monitor.
[2020-09-25] MEDS: INSULIN REGULAR, HUMAN 300 UNIT/3 ML VIAL SQ PRN ×5 (00:24→23:11)
--- NOTE | 2020-09-25 03:30 | NUR ---
Collected urine and sent to the Lab for urinalysis, urine osmolality and Sodium Random; urine as ordered by Dr. Gutierrez.
[2020-09-25 04:29] LABS: *BILIRUBIN,URIN NEGATIVE (NEGATIVE); *BLOOD, URINE NEGATIVE (NEGATIVE); *CLARITY,URINE CLEAR (CLEAR); *COLOR,URINE YELLOW (YELLOW); *KETONES,URINE NEGATIVE (NEGATIVE); *UROBILINOGEN,URINE 0.2 E.U./dl (NORMAL); LEUKOCYTE ESTERASE ,URINE NEGATIVE (NEGATIVE); NITRITE, URINE NEGATIVE (NEGATIVE); UGLUCOSE NEGATIVE (NEGATIVE)
[2020-09-25] MEDS: BLOOD SUGAR DIAGNOSTIC 1 EACH STRIP VI SCH ×4 (05:04→23:06)
[2020-09-25] MEDS: GLUCERNA 1.2 1000ML LIQUID GT PRN ×2 (06:45→17:27)
--- NOTE | 2020-09-25 06:48 | NUR ---
Patient's eyes are open, afebrile, no signs of any distress noted, no twitching or jerking, no signs of any seizure at this time, kept patient clean and comfortable, will continue monitor patient.
[2020-09-25 07:52] VITALS: BP 150/80
[2020-09-25] MEDS: DOCUSATE SODIUM 100 MG/10 ML LIQUID UDC GT SCH ×2 (09:37→21:32)
[2020-09-25] MEDS: PHENOBARBITAL 97.2 MG GT SCH (09:37)
[2020-09-25] MEDS: TERAZOSIN 1 MG CAPSULE GT SCH (09:38)
[2020-09-25] MEDS: levETIRAcetam 500 MG TABLET GT SCH ×2 (09:40→21:33)
[2020-09-25] MEDS: FAMOTIDINE 20 MG TABLET GT SCH ×2 (09:40→21:33)
[2020-09-25] MEDS: ENOXAPARIN SODIUM 40 MG/0.4 ML DISP.SYRIN SQ SCH (09:41)
[2020-09-25] MEDS: COD LIVER OIL/ZINC OXIDE OINT 113 GM TUBE TOP SCH ×2 (09:41→21:34)
[2020-09-25] MEDS: COD LIVER OIL/ZINC OXIDE OINT 113 GM TUBE TP SCH ×2 (09:41→21:34)
[2020-09-25] MEDS: LABETALOL HCL 100 MG TABLET GT SCH (09:41)
[2020-09-25] MEDS: VITAMINS A AND D OINT TP SCH ×2 (09:41→21:34)
[2020-09-25] MEDS: LORAZEPAM 1 MG TABLET GT PRN (09:42)
[2020-09-25] MEDS: HYDROGEN PEROXIDE 3% 118 ML BOTTLE TP SCH ×2 (10:10→21:00)
--- NOTE | 2020-09-25 15:54 | NUR ---
New orders noted from Dr Bauer carried out.
[2020-09-25 19:38] VITALS: BP 126/69
[2020-09-25] MEDS: MINERAL OIL/PETROLAT OPHT OINT 3.5 GM TUBE EACHEYE SCH (21:31)
[2020-09-25] MEDS: ATORVASTATIN 40 MG TABLET GT SCH (21:33)
[2020-09-25] MEDS: THIAMINE HCL 100 MG TABLET GT SCH (21:34)
[2020-09-26] MEDS: BLOOD SUGAR DIAGNOSTIC 1 EACH STRIP VI SCH ×4 (06:21→23:42)
[2020-09-26] MEDS: INSULIN REGULAR, HUMAN 300 UNIT/3 ML VIAL SQ PRN ×4 (06:21→23:44)
[2020-09-26] MEDS: HYDROGEN PEROXIDE 3% 118 ML BOTTLE TP SCH ×2 (07:43→21:32)
[2020-09-26 07:52] VITALS: BP 158/81
[2020-09-26] MEDS: DOCUSATE SODIUM 100 MG/10 ML LIQUID UDC GT SCH ×2 (08:37→21:04)
[2020-09-26] MEDS: PHENOBARBITAL 97.2 MG GT SCH (08:37)
[2020-09-26] MEDS: LABETALOL HCL 100 MG TABLET GT SCH (08:38)
[2020-09-26] MEDS: FAMOTIDINE 20 MG TABLET GT SCH ×2 (08:38→21:06)
[2020-09-26] MEDS: TERAZOSIN 1 MG CAPSULE GT SCH (08:38)
[2020-09-26] MEDS: levETIRAcetam 500 MG TABLET GT SCH ×2 (08:38→21:04)
[2020-09-26] MEDS: COD LIVER OIL/ZINC OXIDE OINT 113 GM TUBE TOP SCH ×2 (08:39→21:06)
[2020-09-26] MEDS: VITAMINS A AND D OINT TP SCH ×2 (08:39→21:06)
[2020-09-26] MEDS: COD LIVER OIL/ZINC OXIDE OINT 113 GM TUBE TP SCH ×2 (08:39→21:06)
[2020-09-26] MEDS: ENOXAPARIN SODIUM 40 MG/0.4 ML DISP.SYRIN SQ SCH (08:41)
[2020-09-26] MEDS: GLUCERNA 1.2 1000ML LIQUID GT PRN (12:56)
--- NOTE | 2020-09-26 16:00 | NUR ---
Seen and examined by Refugio Kat Np (for Dr Valles) with new orders noted.
[2020-09-26 19:30] VITALS: BP 143/79
[2020-09-26] MEDS ORDERED: METOPROLOL TARTRATE 25 MG TABLET GT SCH (21:00)
[2020-09-26] MEDS: MINERAL OIL/PETROLAT OPHT OINT 3.5 GM TUBE EACHEYE SCH (21:04)
[2020-09-26] MEDS: ATORVASTATIN 40 MG TABLET GT SCH (21:05)
[2020-09-26] MEDS: THIAMINE HCL 100 MG TABLET GT SCH (21:06)
[2020-09-27] MEDS: GLUCERNA 1.2 1000ML LIQUID GT PRN ×2 (00:42→14:52)
[2020-09-27] MEDS: BLOOD SUGAR DIAGNOSTIC 1 EACH STRIP VI SCH ×4 (05:25→23:22)
[2020-09-27] MEDS: INSULIN REGULAR, HUMAN 300 UNIT/3 ML VIAL SQ PRN ×4 (05:26→23:24)
[2020-09-27 07:26] LABS: CARBON DIOXIDE 33 mmol/L (21-32); CHLORIDE 94 mmol/L (98-107); CREATININE 0.5 mg/dL (0.6-1.3); GLUCOSE 181 mg/dL (74-106); MAGNESIUM 2.1 mg/dL (1.8-2.4); POTASSIUM 4.4 mmol/L (3.5-5.1); UREA NITROGEN, BLOOD 16 mg/dL (7-18); URIC ACID 2.5 mg/dL (3.5-7.2)
[2020-09-27 07:43] VITALS: BP 146/81
[2020-09-27] MEDS: PHENOBARBITAL 97.2 MG GT SCH (08:16)
[2020-09-27] MEDS: DOCUSATE SODIUM 100 MG/10 ML LIQUID UDC GT SCH ×2 (08:16→20:48)
[2020-09-27] MEDS: TERAZOSIN 1 MG CAPSULE GT SCH (08:17)
[2020-09-27] MEDS: levETIRAcetam 500 MG TABLET GT SCH ×2 (08:17→20:48)
[2020-09-27] MEDS: FAMOTIDINE 20 MG TABLET GT SCH ×2 (08:17→20:49)
[2020-09-27] MEDS: LABETALOL HCL 100 MG TABLET GT SCH (08:19)
[2020-09-27] MEDS: ENOXAPARIN SODIUM 40 MG/0.4 ML DISP.SYRIN SQ SCH (08:20)
[2020-09-27] MEDS: VITAMINS A AND D OINT TP SCH ×2 (08:20→20:49)
[2020-09-27] MEDS: COD LIVER OIL/ZINC OXIDE OINT 113 GM TUBE TP SCH ×2 (08:20→20:49)
[2020-09-27] MEDS: COD LIVER OIL/ZINC OXIDE OINT 113 GM TUBE TOP SCH ×2 (08:20→20:49)
[2020-09-27 08:42] LABS: THYROID STIMULATING HORMONE 1.652 mIU/mL (0.358-3.740)
[2020-09-27] MEDS ORDERED: METOPROLOL TARTRATE 25 MG TABLET GT SCH (09:00)
[2020-09-27] MEDS: HYDROGEN PEROXIDE 3% 118 ML BOTTLE TP SCH ×2 (09:25→19:47)
--- NOTE | 2020-09-27 11:25 | NUR ---
Patient on labetalol and metoprolol, per [place] [facility] recommended to d/c one of these medications and increase the dose on the other one, Dr. Bauer notified of pharmacy recommendation, new orders given to d/c labetalol and increase metoprolol 25mg via gtube q12hrs.
--- NOTE | 2020-09-27 16:37 | NUR ---
Left for daughter Janis regarding covid19 test to be done today.
[2020-09-27 20:21] VITALS: BP 133/76
[2020-09-27] MEDS: MINERAL OIL/PETROLAT OPHT OINT 3.5 GM TUBE EACHEYE SCH (20:48)
[2020-09-27] MEDS: ATORVASTATIN 40 MG TABLET GT SCH (20:48)
[2020-09-27] MEDS: METOPROLOL TARTRATE 25 MG TABLET GT SCH (20:49)
[2020-09-27] MEDS: THIAMINE HCL 100 MG TABLET GT SCH (20:49)
[2020-09-28 01:06] LABS: HEPATITIS A AB, TOTAL Positive (Negative)
[2020-09-28] MEDS: GLUCERNA 1.2 1000ML LIQUID GT PRN ×2 (03:25→15:40)
[2020-09-28] MEDS: BLOOD SUGAR DIAGNOSTIC 1 EACH STRIP VI SCH ×4 (05:40→23:51)
[2020-09-28] MEDS: INSULIN REGULAR, HUMAN 300 UNIT/3 ML VIAL SQ PRN ×3 (06:25→17:55)
[2020-09-28 07:35] VITALS: BP 140/81
[2020-09-28] MEDS: DOCUSATE SODIUM 100 MG/10 ML LIQUID UDC GT SCH ×2 (08:10→21:21)
[2020-09-28] MEDS: PHENOBARBITAL 97.2 MG GT SCH (08:10)
[2020-09-28] MEDS: TERAZOSIN 1 MG CAPSULE GT SCH (08:11)
[2020-09-28] MEDS: METOPROLOL TARTRATE 25 MG TABLET GT SCH ×2 (08:11→21:27)
[2020-09-28] MEDS: FAMOTIDINE 20 MG TABLET GT SCH ×2 (08:11→21:27)
[2020-09-28] MEDS: levETIRAcetam 500 MG TABLET GT SCH ×2 (08:11→21:21)
[2020-09-28] MEDS: VITAMINS A AND D OINT TP SCH ×2 (08:12→21:27)
[2020-09-28] MEDS: ENOXAPARIN SODIUM 40 MG/0.4 ML DISP.SYRIN SQ SCH (08:12)
[2020-09-28] MEDS: COD LIVER OIL/ZINC OXIDE OINT 113 GM TUBE TOP SCH ×2 (08:12→21:27)
[2020-09-28] MEDS: COD LIVER OIL/ZINC OXIDE OINT 113 GM TUBE TP SCH ×2 (08:12→21:27)
[2020-09-28] MEDS: HYDROGEN PEROXIDE 3% 118 ML BOTTLE TP SCH ×2 (08:51→21:58)
--- NOTE | 2020-09-28 15:40 | NUR ---
INTERDISCIPLINARY PLAN OF CARE CONFERENCE was held today. Patient's father Arden and patient's daughter Janis participated in the IDT meeting through speaker phone. Dr. Peralta and the Interdisciplinary Team reviewed the current plan of care in detail. Nursing reported on patient's medical condition, and changes in some medications. See nursing IDT conference notes. See also all other disciplines IDT notes and physician's progress notes for additional details. Patient's father's and patient's daughter's questions were addressed by Dr. Peralta and by the IDT team, and they both expressed understanding and agreement with the current plan of care.
--- NOTE | 2020-09-28 16:01 | NUR ---
Video call provided with the pt. and family. Family has no complaint or whatsoever at this time. Pt. stable at this. Will continue to monitor.
[2020-09-28 20:07] VITALS: BP 123/80
[2020-09-28] MEDS: ATORVASTATIN 40 MG TABLET GT SCH (21:21)
[2020-09-28] MEDS: MINERAL OIL/PETROLAT OPHT OINT 3.5 GM TUBE EACHEYE SCH (21:21)
[2020-09-28] MEDS: THIAMINE HCL 100 MG TABLET GT SCH (21:27)
[2020-09-29] MEDS: INSULIN REGULAR, HUMAN 300 UNIT/3 ML VIAL SQ PRN ×4 (00:08→18:29)
[2020-09-29] MEDS: BLOOD SUGAR DIAGNOSTIC 1 EACH STRIP VI SCH ×3 (05:22→18:24)
[2020-09-29] MEDS: HYDROGEN PEROXIDE 3% 118 ML BOTTLE TP SCH ×2 (07:43→21:39)
[2020-09-29 07:45] VITALS: BP 150/80
[2020-09-29] MEDS: DOCUSATE SODIUM 100 MG/10 ML LIQUID UDC GT SCH ×2 (09:41→20:44)
[2020-09-29] MEDS: ENOXAPARIN SODIUM 40 MG/0.4 ML DISP.SYRIN SQ SCH (09:44)
[2020-09-29] MEDS: METOPROLOL TARTRATE 25 MG TABLET GT SCH ×2 (09:45→20:44)
[2020-09-29] MEDS: FAMOTIDINE 20 MG TABLET GT SCH ×2 (09:45→20:45)
[2020-09-29] MEDS: COD LIVER OIL/ZINC OXIDE OINT 113 GM TUBE TP SCH ×2 (09:45→20:45)
[2020-09-29] MEDS: levETIRAcetam 500 MG TABLET GT SCH ×2 (09:45→20:44)
[2020-09-29] MEDS: TERAZOSIN 1 MG CAPSULE GT SCH (09:45)
[2020-09-29] MEDS: COD LIVER OIL/ZINC OXIDE OINT 113 GM TUBE TOP SCH ×2 (09:45→20:45)
[2020-09-29] MEDS: VITAMINS A AND D OINT TP SCH ×2 (09:45→20:45)
[2020-09-29] MEDS: PHENOBARBITAL 97.2 MG GT SCH (09:58)
--- NOTE | 2020-09-29 10:55 | NUR ---
Patient's optometry appointment with Dr. Murray has been rescheduled for 10/06/2020.
--- NOTE | 2020-09-29 15:54 | NUR ---
Dr Rios notified pt has a increase of spasm and twitching with new orders noted and carried out.
--- NOTE | 2020-09-29 18:53 | NUR ---
pT'S DAUGHTER NOTIFIED REGARDING THE COVID 19 RESULT WAS NEGATIVE AND AWARE OF THE NEW ORDERS.
--- NOTE | 2020-09-29 19:00 | NUR ---
Seen and examined by Dr Peralta ,no new orders noted.
[2020-09-29 20:09] VITALS: BP 150/81
[2020-09-29] MEDS: ATORVASTATIN 40 MG TABLET GT SCH (20:44)
[2020-09-29] MEDS: MINERAL OIL/PETROLAT OPHT OINT 3.5 GM TUBE EACHEYE SCH (20:44)
[2020-09-29] MEDS: THIAMINE HCL 100 MG TABLET GT SCH (20:45)
[2020-09-30] MEDS: BLOOD SUGAR DIAGNOSTIC 1 EACH STRIP VI SCH ×4 (00:06→18:27)
[2020-09-30] MEDS: GLUCERNA 1.2 1000ML LIQUID GT PRN (05:46)
[2020-09-30] MEDS: INSULIN REGULAR, HUMAN 300 UNIT/3 ML VIAL SQ PRN ×3 (06:00→18:29)
[2020-09-30 07:30] VITALS: BP 157/84
[2020-09-30] MEDS: PHENOBARBITAL 97.2 MG GT SCH (09:38)
[2020-09-30] MEDS: DOCUSATE SODIUM 100 MG/10 ML LIQUID UDC GT SCH ×2 (09:38→21:40)
[2020-09-30] MEDS: TERAZOSIN 1 MG CAPSULE GT SCH (09:39)
[2020-09-30] MEDS: levETIRAcetam 500 MG TABLET GT SCH ×2 (09:39→21:40)
[2020-09-30] MEDS: COD LIVER OIL/ZINC OXIDE OINT 113 GM TUBE TP SCH ×2 (09:41→21:41)
[2020-09-30] MEDS: FAMOTIDINE 20 MG TABLET GT SCH ×2 (09:41→21:41)
[2020-09-30] MEDS: COD LIVER OIL/ZINC OXIDE OINT 113 GM TUBE TOP SCH ×2 (09:41→21:41)
[2020-09-30] MEDS: METOPROLOL TARTRATE 25 MG TABLET GT SCH ×2 (09:41→21:41)
[2020-09-30] MEDS: VITAMINS A AND D OINT TP SCH ×2 (09:41→21:41)
[2020-09-30] MEDS: ENOXAPARIN SODIUM 40 MG/0.4 ML DISP.SYRIN SQ SCH (09:43)
[2020-09-30] MEDS: HYDROGEN PEROXIDE 3% 118 ML BOTTLE TP SCH ×2 (09:45→20:46)
--- NOTE | 2020-09-30 11:36 | NUR ---
FOR EEG R.Donovan Duran CONTACTED DIRECTOR OF RESOURCE DEVELOPMENT ALREADY TODAY AND AWAITING FOR THE SERVICE.
--- NOTE | 2020-09-30 17:34 | NUR ---
EEG DONE AT THIS TIME.
[2020-09-30 20:00] VITALS: BP 143/74
[2020-09-30] MEDS: MINERAL OIL/PETROLAT OPHT OINT 3.5 GM TUBE EACHEYE SCH (21:40)
[2020-09-30] MEDS: ATORVASTATIN 40 MG TABLET GT SCH (21:40)
[2020-09-30] MEDS: THIAMINE HCL 100 MG TABLET GT SCH (21:41)
[2020-10-01] MEDS: BLOOD SUGAR DIAGNOSTIC 1 EACH STRIP VI SCH ×4 (00:22→18:00)
[2020-10-01] MEDS: INSULIN REGULAR, HUMAN 300 UNIT/3 ML VIAL SQ PRN ×4 (00:24→19:07)
[2020-10-01] MEDS: GLUCERNA 1.2 1000ML LIQUID GT PRN ×2 (03:02→21:03)
[2020-10-01] MEDS: LORAZEPAM 1 MG TABLET GT PRN (03:19)
--- NOTE | 2020-10-01 03:25 | NUR ---
pt right leg jerking and facial twitching about 45 seconds, ativan 1mg via g tube given for increased spasms,will monitor closely, afebrile. Addendum: 10/01/20 at 0331 by EARLE SELBY RN pt's
[2020-10-01 08:00] VITALS: BP 155/83
[2020-10-01] MEDS: DOCUSATE SODIUM 100 MG/10 ML LIQUID UDC GT SCH ×2 (08:15→20:59)
[2020-10-01] MEDS: levETIRAcetam 500 MG TABLET GT SCH ×2 (08:16→20:59)
[2020-10-01] MEDS: PHENOBARBITAL 97.2 MG GT SCH (08:16)
[2020-10-01] MEDS: TERAZOSIN 1 MG CAPSULE GT SCH (08:16)
[2020-10-01] MEDS: FAMOTIDINE 20 MG TABLET GT SCH ×2 (08:17→20:59)
[2020-10-01] MEDS: METOPROLOL TARTRATE 25 MG TABLET GT SCH ×2 (08:17→20:59)
[2020-10-01] MEDS: ENOXAPARIN SODIUM 40 MG/0.4 ML DISP.SYRIN SQ SCH (08:18)
[2020-10-01] MEDS: VITAMINS A AND D OINT TP SCH ×2 (08:18→21:00)
[2020-10-01] MEDS: COD LIVER OIL/ZINC OXIDE OINT 113 GM TUBE TP SCH (08:18)
[2020-10-01] MEDS: COD LIVER OIL/ZINC OXIDE OINT 113 GM TUBE TOP SCH ×2 (08:18→21:00)
[2020-10-01] MEDS: HYDROGEN PEROXIDE 3% 118 ML BOTTLE TP SCH ×2 (09:00→21:59)
[2020-10-01 20:23] VITALS: BP 145/82
[2020-10-01] MEDS: ATORVASTATIN 40 MG TABLET GT SCH (20:59)
[2020-10-01] MEDS: MINERAL OIL/PETROLAT OPHT OINT 3.5 GM TUBE EACHEYE SCH (20:59)
[2020-10-01] MEDS: THIAMINE HCL 100 MG TABLET GT SCH (21:00)
[2020-10-02] MEDS: BLOOD SUGAR DIAGNOSTIC 1 EACH STRIP VI SCH ×4 (00:20→18:04)
[2020-10-02] MEDS: INSULIN REGULAR, HUMAN 300 UNIT/3 ML VIAL SQ PRN ×4 (00:25→18:05)
--- NOTE | 2020-10-02 02:15 | NUR ---
For COVID-19 testing as per [facility] requirement.
[2020-10-02 07:40] VITALS: BP 144/76
[2020-10-02] MEDS: HYDROGEN PEROXIDE 3% 118 ML BOTTLE TP SCH ×2 (09:00→21:00)
--- NOTE | 2020-10-02 09:00 | NUR ---
PT'S RESP. LIBERTARIAN SARBJIT AWARE OF COVID 19 TEST FOR TODAY.
[2020-10-02] MEDS: levETIRAcetam 500 MG TABLET GT SCH ×2 (09:17→21:19)
[2020-10-02] MEDS: DOCUSATE SODIUM 100 MG/10 ML LIQUID UDC GT SCH ×2 (09:17→21:17)
[2020-10-02] MEDS: FAMOTIDINE 20 MG TABLET GT SCH ×2 (09:18→21:20)
[2020-10-02] MEDS: METOPROLOL TARTRATE 25 MG TABLET GT SCH ×2 (09:18→21:20)
[2020-10-02] MEDS: ENOXAPARIN SODIUM 40 MG/0.4 ML DISP.SYRIN SQ SCH (09:19)
[2020-10-02] MEDS: COD LIVER OIL/ZINC OXIDE OINT 113 GM TUBE TOP SCH ×2 (09:19→21:20)
[2020-10-02] MEDS: VITAMINS A AND D OINT TP SCH ×2 (09:19→21:20)
[2020-10-02] MEDS: PHENOBARBITAL 97.2 MG GT SCH (09:22)
[2020-10-02] MEDS: TERAZOSIN 1 MG CAPSULE GT SCH (09:22)
[2020-10-02] MEDS: GLUCERNA 1.2 1000ML LIQUID GT PRN (12:10)
[2020-10-02] MEDS: LORAZEPAM 1 MG TABLET GT PRN (18:08)
[2020-10-02 20:31] VITALS: BP 139/81
[2020-10-02] MEDS: MINERAL OIL/PETROLAT OPHT OINT 3.5 GM TUBE EACHEYE SCH (21:17)
[2020-10-02] MEDS: ATORVASTATIN 40 MG TABLET GT SCH (21:19)
[2020-10-02] MEDS: THIAMINE HCL 100 MG TABLET GT SCH (21:20)
[2020-10-03] MEDS: BLOOD SUGAR DIAGNOSTIC 1 EACH STRIP VI SCH ×4 (00:11→17:59)
[2020-10-03] MEDS: INSULIN REGULAR, HUMAN 300 UNIT/3 ML VIAL SQ PRN ×4 (00:18→18:03)
[2020-10-03] MEDS: GLUCERNA 1.2 1000ML LIQUID GT PRN (01:31)
[2020-10-03 07:32] VITALS: BP 153/75
[2020-10-03] MEDS: HYDROGEN PEROXIDE 3% 118 ML BOTTLE TP SCH ×2 (08:17→21:42)
[2020-10-03] MEDS: PHENOBARBITAL 97.2 MG GT SCH (08:51)
[2020-10-03] MEDS: TERAZOSIN 1 MG CAPSULE GT SCH (08:51)
[2020-10-03] MEDS: DOCUSATE SODIUM 100 MG/10 ML LIQUID UDC GT SCH ×2 (08:51→21:07)
[2020-10-03] MEDS: METOPROLOL TARTRATE 25 MG TABLET GT SCH ×2 (08:52→21:08)
[2020-10-03] MEDS: levETIRAcetam 500 MG TABLET GT SCH ×2 (08:52→21:07)
[2020-10-03] MEDS: FAMOTIDINE 20 MG TABLET GT SCH ×2 (08:52→21:08)
[2020-10-03] MEDS: COD LIVER OIL/ZINC OXIDE OINT 113 GM TUBE TOP SCH ×2 (08:53→21:08)
[2020-10-03] MEDS: VITAMINS A AND D OINT TP SCH ×2 (08:53→21:08)
[2020-10-03] MEDS: ENOXAPARIN SODIUM 40 MG/0.4 ML DISP.SYRIN SQ SCH (08:56)
[2020-10-03 20:02] VITALS: BP 148/83
[2020-10-03] MEDS: MINERAL OIL/PETROLAT OPHT OINT 3.5 GM TUBE EACHEYE SCH (21:07)
[2020-10-03] MEDS: ATORVASTATIN 40 MG TABLET GT SCH (21:07)
[2020-10-03] MEDS: THIAMINE HCL 100 MG TABLET GT SCH (21:08)
[2020-10-04] MEDS: BLOOD SUGAR DIAGNOSTIC 1 EACH STRIP VI SCH ×4 (00:39→18:05)
[2020-10-04] MEDS: INSULIN REGULAR, HUMAN 300 UNIT/3 ML VIAL SQ PRN ×3 (00:49→18:06)
[2020-10-04] MEDS: GLUCERNA 1.2 1000ML LIQUID GT PRN ×2 (05:39→18:11)
[2020-10-04 07:48] VITALS: BP 184/88
[2020-10-04] MEDS: HYDROGEN PEROXIDE 3% 118 ML BOTTLE TP SCH ×2 (08:37→21:55)
[2020-10-04] MEDS: DOCUSATE SODIUM 100 MG/10 ML LIQUID UDC GT SCH ×2 (09:06→21:30)
[2020-10-04] MEDS: PHENOBARBITAL 97.2 MG GT SCH (09:06)
[2020-10-04] MEDS: TERAZOSIN 1 MG CAPSULE GT SCH (09:07)
[2020-10-04] MEDS: levETIRAcetam 500 MG TABLET GT SCH ×2 (09:07→21:30)
[2020-10-04] MEDS: VITAMINS A AND D OINT TP SCH ×2 (09:08→21:31)
[2020-10-04] MEDS: COD LIVER OIL/ZINC OXIDE OINT 113 GM TUBE TOP SCH ×2 (09:08→21:31)
[2020-10-04] MEDS: METOPROLOL TARTRATE 25 MG TABLET GT SCH ×2 (09:08→21:31)
[2020-10-04] MEDS: ENOXAPARIN SODIUM 40 MG/0.4 ML DISP.SYRIN SQ SCH (09:08)
[2020-10-04] MEDS: FAMOTIDINE 20 MG TABLET GT SCH ×2 (09:08→21:31)
--- NOTE | 2020-10-04 12:05 | NUR ---
PT. WAS SEEN AND EXAMINED BY FABY Montoya AND AWARE OF PT'S STRONG ODOR INCREASED TRACHEAL SECRETIONS AND WITH NEW ORDERS CARRIED OUT.
--- NOTE | 2020-10-04 15:20 | NUR ---
[phone]. Melo wanted to do an annual check-in on patient's conservatorship, and schedule a ZOOM video session with the patient. DELANEY scheduled the ZOOM session for 10/05/20 at 10:30am. Addendum: 10/04/20 at 1521 by FEDERICO BALTAZAR INCORRECT ENTRY: disregard this note
[2020-10-04 20:06] VITALS: BP 157/84
[2020-10-04] MEDS: ATORVASTATIN 40 MG TABLET GT SCH (21:30)
[2020-10-04] MEDS: MINERAL OIL/PETROLAT OPHT OINT 3.5 GM TUBE EACHEYE SCH (21:30)
[2020-10-04] MEDS: THIAMINE HCL 100 MG TABLET GT SCH (21:31)
[2020-10-05] MEDS: BLOOD SUGAR DIAGNOSTIC 1 EACH STRIP VI SCH ×5 (00:25→23:42)
[2020-10-05] MEDS: INSULIN REGULAR, HUMAN 300 UNIT/3 ML VIAL SQ PRN ×3 (06:42→17:26)
[2020-10-05] MEDS: GLUCERNA 1.2 1000ML LIQUID GT PRN ×2 (06:49→18:48)
[2020-10-05 07:30] VITALS: BP 164/90
[2020-10-05] MEDS: PHENOBARBITAL 97.2 MG GT SCH (08:41)
[2020-10-05] MEDS: DOCUSATE SODIUM 100 MG/10 ML LIQUID UDC GT SCH ×2 (08:41→21:16)
[2020-10-05] MEDS: METOPROLOL TARTRATE 25 MG TABLET GT SCH ×2 (08:42→21:18)
[2020-10-05] MEDS: ENOXAPARIN SODIUM 40 MG/0.4 ML DISP.SYRIN SQ SCH (08:42)
[2020-10-05] MEDS: COD LIVER OIL/ZINC OXIDE OINT 113 GM TUBE TOP SCH ×2 (08:42→21:19)
[2020-10-05] MEDS: levETIRAcetam 500 MG TABLET GT SCH ×2 (08:42→21:17)
[2020-10-05] MEDS: TERAZOSIN 1 MG CAPSULE GT SCH (08:42)
[2020-10-05] MEDS: FAMOTIDINE 20 MG TABLET GT SCH ×2 (08:42→21:19)
[2020-10-05] MEDS: VITAMINS A AND D OINT TP SCH ×2 (08:43→21:19)
[2020-10-05] MEDS: HYDROGEN PEROXIDE 3% 118 ML BOTTLE TP SCH ×2 (09:00→21:07)
[2020-10-05 13:21] LABS: BASOPHILS % (AUTO) 0.7 % (0.0-2.0); EOSINOPHILS % (AUTO) 0.7 % (0.0-7.0); HEMATOCRIT 34.7 % (36.7-47.1); HEMOGLOBIN 11.9 g/dL (12.5-16.3); LYMPHOCYTES # (AUTO) 1.3 K/uL (20.0-40.0); LYMPHOCYTES % (AUTO) 27.4 % (20.5-51.5); MEAN CORPUSCULAR HEMOGLOBIN 30.2 uug (23.8-33.4); MEAN CORPUSCULAR HGB CONC 34 g/dL (32.5-36.3); MEAN CORPUSCULAR VOLUME 88.2 fL (73.0-96.2); MONOCYTES # (AUTO) 0.5 K/uL (2.0-10.0); MONOCYTES % (AUTO) 9.3 % (0.0-11.0); NEUTROPHILS % (AUTO) 61.9 % (38.5-71.5); PLATELET COUNT (AUTO) 242 K/uL (152-348); RED BLOOD CELL COUNT(AUTO) 3.93 MIL/uL (4.06-5.63); WHITE BLOOD COUNT (AUTO) 4.9 K/uL (3.6-10.2)
[2020-10-05 13:31] LABS: ALANINE AMINOTRANSFERASE 30 U/L (16-63); ALKALINE PHOSPHATASE 97 U/L (50-136); ASPARTATE AMINOTRANSFERASE 16 U/L (15-37); BILIRUBIN,TOTAL 0.3 mg/dL (0.2-1.0); CARBON DIOXIDE 29 mmol/L (21-32); CHLORIDE 97 mmol/L (98-107); CREATININE 0.4 mg/dL (0.6-1.3); GLUCOSE 179 mg/dL (74-106); POTASSIUM 4.2 mmol/L (3.5-5.1); TOTAL PROTEIN, SERUM 6.7 g/dL (6.4-8.2); UREA NITROGEN, BLOOD 14 mg/dL (7-18)
--- NOTE | 2020-10-05 14:32 | NUR ---
Seen and examined by Cari Price,no new orders.
[2020-10-05 19:56] VITALS: BP 142/81
[2020-10-05] MEDS: MINERAL OIL/PETROLAT OPHT OINT 3.5 GM TUBE EACHEYE SCH (21:16)
[2020-10-05] MEDS: ATORVASTATIN 40 MG TABLET GT SCH (21:17)
[2020-10-05] MEDS: THIAMINE HCL 100 MG TABLET GT SCH (21:19)
[2020-10-06] MEDS: BLOOD SUGAR DIAGNOSTIC 1 EACH STRIP VI SCH ×3 (05:47→17:03)
[2020-10-06] MEDS: INSULIN REGULAR, HUMAN 300 UNIT/3 ML VIAL SQ PRN ×3 (05:48→17:08)
[2020-10-06 07:33] VITALS: BP 167/86
[2020-10-06] MEDS: DOCUSATE SODIUM 100 MG/10 ML LIQUID UDC GT SCH ×2 (08:39→21:37)
[2020-10-06] MEDS: PHENOBARBITAL 97.2 MG GT SCH (08:39)
[2020-10-06] MEDS: levETIRAcetam 500 MG TABLET GT SCH ×2 (08:41→21:37)
[2020-10-06] MEDS: TERAZOSIN 1 MG CAPSULE GT SCH (08:41)
[2020-10-06] MEDS: METOPROLOL TARTRATE 25 MG TABLET GT SCH ×2 (08:42→21:39)
[2020-10-06] MEDS: FAMOTIDINE 20 MG TABLET GT SCH ×2 (08:42→21:39)
[2020-10-06] MEDS: COD LIVER OIL/ZINC OXIDE OINT 113 GM TUBE TOP SCH ×2 (08:43→21:40)
[2020-10-06] MEDS: ENOXAPARIN SODIUM 40 MG/0.4 ML DISP.SYRIN SQ SCH (08:51)
[2020-10-06] MEDS: VITAMINS A AND D OINT TP SCH ×2 (09:00→21:40)
[2020-10-06] MEDS: HYDROGEN PEROXIDE 3% 118 ML BOTTLE TP SCH ×2 (09:50→21:55)
[2020-10-06] MEDS: GLUCERNA 1.2 1000ML LIQUID GT PRN (11:58)
[2020-10-06] MEDS: MINERAL OIL/PETROLAT OPHT OINT 3.5 GM TUBE EACHEYE SCH (21:37)
[2020-10-06] MEDS: ATORVASTATIN 40 MG TABLET GT SCH (21:38)
[2020-10-06] MEDS: THIAMINE HCL 100 MG TABLET GT SCH (21:39)
[2020-10-06 22:49] VITALS: BP 135/75
[2020-10-07] MEDS: BLOOD SUGAR DIAGNOSTIC 1 EACH STRIP VI SCH ×4 (00:12→17:26)
[2020-10-07] MEDS: INSULIN REGULAR, HUMAN 300 UNIT/3 ML VIAL SQ PRN ×4 (00:13→17:28)
[2020-10-07] MEDS: GLUCERNA 1.2 1000ML LIQUID GT PRN ×2 (02:49→17:26)
[2020-10-07 07:24] VITALS: BP 155/86
[2020-10-07] MEDS: HYDROGEN PEROXIDE 3% 118 ML BOTTLE TP SCH ×2 (07:59→21:00)
[2020-10-07] MEDS: DOCUSATE SODIUM 100 MG/10 ML LIQUID UDC GT SCH ×2 (08:46→21:21)
[2020-10-07] MEDS: PHENOBARBITAL 97.2 MG GT SCH (08:47)
[2020-10-07] MEDS: TERAZOSIN 1 MG CAPSULE GT SCH (08:47)
[2020-10-07] MEDS: METOPROLOL TARTRATE 25 MG TABLET GT SCH ×2 (08:48→21:24)
[2020-10-07] MEDS: levETIRAcetam 500 MG TABLET GT SCH ×2 (08:48→21:21)
[2020-10-07] MEDS: VITAMINS A AND D OINT TP SCH ×2 (08:49→21:25)
[2020-10-07] MEDS: FAMOTIDINE 20 MG TABLET GT SCH ×2 (08:49→21:24)
[2020-10-07] MEDS: COD LIVER OIL/ZINC OXIDE OINT 113 GM TUBE TOP SCH ×2 (08:49→21:25)
[2020-10-07] MEDS: ENOXAPARIN SODIUM 40 MG/0.4 ML DISP.SYRIN SQ SCH (08:52)
--- NOTE | 2020-10-07 15:37 | NUR ---
Video chat done with pt's father, Arden.
[2020-10-07 19:41] VITALS: BP 143/74
[2020-10-07] MEDS: MINERAL OIL/PETROLAT OPHT OINT 3.5 GM TUBE EACHEYE SCH (21:20)
[2020-10-07] MEDS: ATORVASTATIN 40 MG TABLET GT SCH (21:24)
[2020-10-07] MEDS: THIAMINE HCL 100 MG TABLET GT SCH (21:25)
[2020-10-08] MEDS: BLOOD SUGAR DIAGNOSTIC 1 EACH STRIP VI SCH ×4 (00:41→17:49)
[2020-10-08] MEDS: INSULIN REGULAR, HUMAN 300 UNIT/3 ML VIAL SQ PRN ×4 (00:43→17:54)
[2020-10-08] MEDS: HYDROGEN PEROXIDE 3% 118 ML BOTTLE TP SCH ×2 (07:21→21:32)
[2020-10-08 07:30] VITALS: BP 150/95
[2020-10-08] MEDS: PHENOBARBITAL 97.2 MG GT SCH (08:10)
[2020-10-08] MEDS: TERAZOSIN 1 MG CAPSULE GT SCH (08:10)
[2020-10-08] MEDS: DOCUSATE SODIUM 100 MG/10 ML LIQUID UDC GT SCH ×2 (08:10→20:03)
[2020-10-08] MEDS: levETIRAcetam 500 MG TABLET GT SCH ×2 (08:10→20:03)
[2020-10-08] MEDS: COD LIVER OIL/ZINC OXIDE OINT 113 GM TUBE TOP SCH ×2 (08:11→20:03)
[2020-10-08] MEDS: VITAMINS A AND D OINT TP SCH ×2 (08:11→20:05)
[2020-10-08] MEDS: METOPROLOL TARTRATE 25 MG TABLET GT SCH ×2 (08:11→20:03)
[2020-10-08] MEDS: FAMOTIDINE 20 MG TABLET GT SCH ×2 (08:11→20:03)
[2020-10-08] MEDS: ENOXAPARIN SODIUM 40 MG/0.4 ML DISP.SYRIN SQ SCH (08:50)
[2020-10-08] MEDS: GLUCERNA 1.2 1000ML LIQUID GT PRN (08:51)
[2020-10-08] MEDS: ATORVASTATIN 40 MG TABLET GT SCH (20:03)
[2020-10-08] MEDS: THIAMINE HCL 100 MG TABLET GT SCH (20:03)
[2020-10-08] MEDS: MINERAL OIL/PETROLAT OPHT OINT 3.5 GM TUBE EACHEYE SCH (20:03)
[2020-10-08 22:18] VITALS: BP 140/76
[2020-10-09] MEDS: BLOOD SUGAR DIAGNOSTIC 1 EACH STRIP VI SCH ×5 (00:54→23:48)
[2020-10-09] MEDS: INSULIN REGULAR, HUMAN 300 UNIT/3 ML VIAL SQ PRN ×5 (00:55→23:55)
[2020-10-09] MEDS: GLUCERNA 1.2 1000ML LIQUID GT PRN ×2 (05:21→17:05)
[2020-10-09 07:40] VITALS: BP 140/68
[2020-10-09] MEDS: HYDROGEN PEROXIDE 3% 118 ML BOTTLE TP SCH ×2 (07:53→21:00)
[2020-10-09] MEDS: DOCUSATE SODIUM 100 MG/10 ML LIQUID UDC GT SCH ×2 (09:17→20:35)
[2020-10-09] MEDS: PHENOBARBITAL 97.2 MG GT SCH (09:18)
[2020-10-09] MEDS: TERAZOSIN 1 MG CAPSULE GT SCH (09:18)
[2020-10-09] MEDS: levETIRAcetam 500 MG TABLET GT SCH ×2 (09:18→20:35)
[2020-10-09] MEDS: COD LIVER OIL/ZINC OXIDE OINT 113 GM TUBE TOP SCH ×2 (09:20→20:36)
[2020-10-09] MEDS: FAMOTIDINE 20 MG TABLET GT SCH ×2 (09:20→20:36)
[2020-10-09] MEDS: VITAMINS A AND D OINT TP SCH ×2 (09:20→20:36)
[2020-10-09] MEDS: METOPROLOL TARTRATE 25 MG TABLET GT SCH ×2 (09:20→20:36)
[2020-10-09] MEDS: ENOXAPARIN SODIUM 40 MG/0.4 ML DISP.SYRIN SQ SCH (09:23)
[2020-10-09] MEDS: MINERAL OIL/PETROLAT OPHT OINT 3.5 GM TUBE EACHEYE SCH (20:35)
[2020-10-09] MEDS: ATORVASTATIN 40 MG TABLET GT SCH (20:35)
[2020-10-09] MEDS: THIAMINE HCL 100 MG TABLET GT SCH (20:36)
[2020-10-09 22:12] VITALS: BP 138/77
[2020-10-10] MEDS: BLOOD SUGAR DIAGNOSTIC 1 EACH STRIP VI SCH ×3 (05:06→17:25)
[2020-10-10 07:27] VITALS: BP_SYST 148
[2020-10-10] MEDS: HYDROGEN PEROXIDE 3% 118 ML BOTTLE TP SCH ×2 (07:33→19:45)
[2020-10-10] MEDS: PHENOBARBITAL 97.2 MG GT SCH (08:46)
[2020-10-10] MEDS: DOCUSATE SODIUM 100 MG/10 ML LIQUID UDC GT SCH ×2 (08:46→20:17)
[2020-10-10] MEDS: levETIRAcetam 500 MG TABLET GT SCH ×2 (08:47→20:17)
[2020-10-10] MEDS: FAMOTIDINE 20 MG TABLET GT SCH ×2 (08:47→20:18)
[2020-10-10] MEDS: METOPROLOL TARTRATE 25 MG TABLET GT SCH ×2 (08:47→21:00)
[2020-10-10] MEDS: TERAZOSIN 1 MG CAPSULE GT SCH (08:47)
[2020-10-10] MEDS: ENOXAPARIN SODIUM 40 MG/0.4 ML DISP.SYRIN SQ SCH (08:48)
[2020-10-10] MEDS: GLUCERNA 1.2 1000ML LIQUID GT PRN (08:48)
[2020-10-10] MEDS: VITAMINS A AND D OINT TP SCH ×2 (08:48→20:20)
[2020-10-10] MEDS: COD LIVER OIL/ZINC OXIDE OINT 113 GM TUBE TOP SCH ×2 (08:48→20:20)
[2020-10-10] MEDS: INSULIN REGULAR, HUMAN 300 UNIT/3 ML VIAL SQ PRN ×2 (11:17→17:25)
--- NOTE | 2020-10-10 18:25 | NUR ---
Pt has increase secretions new orders noted from Dr Cotton to collect for sputum culture.
--- NOTE | 2020-10-10 20:00 | NUR ---
Patient is afebrile, trach intact and patent, no respiratory distress noted, still with thick yellow secretions, collected sputum for C &S, sent to the lab, kept patient clean and comfortable, will continue monitor.
[2020-10-10] MEDS: ATORVASTATIN 40 MG TABLET GT SCH (20:17)
[2020-10-10] MEDS: MINERAL OIL/PETROLAT OPHT OINT 3.5 GM TUBE EACHEYE SCH (20:17)
[2020-10-10] MEDS: THIAMINE HCL 100 MG TABLET GT SCH (20:18)
[2020-10-10 23:35] VITALS: BP 140/73
[2020-10-11] MEDS: GLUCERNA 1.2 1000ML LIQUID GT PRN (01:44)
[2020-10-11] MEDS: INSULIN REGULAR, HUMAN 300 UNIT/3 ML VIAL SQ PRN ×4 (01:46→17:24)
[2020-10-11] MEDS: BLOOD SUGAR DIAGNOSTIC 1 EACH STRIP VI SCH ×4 (05:26→17:23)
[2020-10-11 07:42] VITALS: BP_SYST 159; BP_SYST 170; BP_DIAS 79
[2020-10-11] MEDS: HYDROGEN PEROXIDE 3% 118 ML BOTTLE TP SCH ×2 (09:16→21:22)
[2020-10-11] MEDS: PHENOBARBITAL 97.2 MG GT SCH (09:25)
[2020-10-11] MEDS: DOCUSATE SODIUM 100 MG/10 ML LIQUID UDC GT SCH ×2 (09:25→20:34)
[2020-10-11] MEDS: ENOXAPARIN SODIUM 40 MG/0.4 ML DISP.SYRIN SQ SCH (09:26)
[2020-10-11] MEDS: COD LIVER OIL/ZINC OXIDE OINT 113 GM TUBE TOP SCH ×2 (09:26→20:35)
[2020-10-11] MEDS: levETIRAcetam 500 MG TABLET GT SCH ×2 (09:26→20:35)
[2020-10-11] MEDS: METOPROLOL TARTRATE 25 MG TABLET GT SCH ×2 (09:26→20:35)
[2020-10-11] MEDS: FAMOTIDINE 20 MG TABLET GT SCH ×2 (09:26→20:35)
[2020-10-11] MEDS: VITAMINS A AND D OINT TP SCH ×2 (09:26→20:36)
[2020-10-11] MEDS: TERAZOSIN 1 MG CAPSULE GT SCH (09:26)
--- NOTE | 2020-10-11 10:33 | NUR ---
Daughter Janis notified latest result of covid19 is negative.
[2020-10-11 19:56] VITALS: BP 145/80
[2020-10-11] MEDS: MINERAL OIL/PETROLAT OPHT OINT 3.5 GM TUBE EACHEYE SCH (20:34)
[2020-10-11] MEDS: ATORVASTATIN 40 MG TABLET GT SCH (20:35)
[2020-10-11] MEDS: THIAMINE HCL 100 MG TABLET GT SCH (20:35)
[2020-10-12] MEDS: INSULIN REGULAR, HUMAN 300 UNIT/3 ML VIAL SQ PRN ×5 (01:28→23:16)
[2020-10-12] MEDS: GLUCERNA 1.2 1000ML LIQUID GT PRN ×2 (05:43→23:00)
[2020-10-12] MEDS: BLOOD SUGAR DIAGNOSTIC 1 EACH STRIP VI SCH ×5 (05:43→23:15)
[2020-10-12 07:49] LABS: ALANINE AMINOTRANSFERASE 34 U/L (16-63); ALKALINE PHOSPHATASE 103 U/L (50-136); ASPARTATE AMINOTRANSFERASE 20 U/L (15-37); BILIRUBIN,TOTAL 0.3 mg/dL (0.2-1.0); CARBON DIOXIDE 31 mmol/L (21-32); CHLORIDE 97 mmol/L (98-107); CREATININE 0.5 mg/dL (0.6-1.3); GLUCOSE 160 mg/dL (74-106); POTASSIUM 4.3 mmol/L (3.5-5.1); TOTAL PROTEIN, SERUM 7.3 g/dL (6.4-8.2); UREA NITROGEN, BLOOD 15 mg/dL (7-18)
[2020-10-12 07:52] VITALS: BP 152/86
[2020-10-12] MEDS: HYDROGEN PEROXIDE 3% 118 ML BOTTLE TP SCH ×2 (07:58→21:00)
[2020-10-12 08:10] LABS: BASOPHILS % (AUTO) 0.3 % (0.0-2.0); EOSINOPHILS % (AUTO) 0.9 % (0.0-7.0); HEMATOCRIT 38.6 % (36.7-47.1); HEMOGLOBIN 13.3 g/dL (12.5-16.3); LYMPHOCYTES # (AUTO) 1.1 K/uL (20.0-40.0); LYMPHOCYTES % (AUTO) 23.6 % (20.5-51.5); MEAN CORPUSCULAR HEMOGLOBIN 30.7 uug (23.8-33.4); MEAN CORPUSCULAR HGB CONC 35 g/dL (32.5-36.3); MONOCYTES # (AUTO) 0.5 K/uL (2.0-10.0); MONOCYTES % (AUTO) 9.7 % (0.0-11.0); NEUTROPHILS # (AUTO) 3.1 K/uL (1.8-8.9); NEUTROPHILS % (AUTO) 65.5 % (38.5-71.5); PLATELET COUNT (AUTO) 215 K/uL (152-348); RED BLOOD CELL COUNT(AUTO) 4.34 MIL/uL (4.06-5.63); WHITE BLOOD COUNT (AUTO) 4.7 K/uL (3.6-10.2)
[2020-10-12] MEDS: PHENOBARBITAL 97.2 MG GT SCH (09:26)
[2020-10-12] MEDS: FAMOTIDINE 20 MG TABLET GT SCH ×2 (09:26→21:19)
[2020-10-12] MEDS: COD LIVER OIL/ZINC OXIDE OINT 113 GM TUBE TOP SCH ×2 (09:26→21:20)
[2020-10-12] MEDS: TERAZOSIN 1 MG CAPSULE GT SCH (09:26)
[2020-10-12] MEDS: ENOXAPARIN SODIUM 40 MG/0.4 ML DISP.SYRIN SQ SCH (09:26)
[2020-10-12] MEDS: DOCUSATE SODIUM 100 MG/10 ML LIQUID UDC GT SCH ×2 (09:26→21:12)
[2020-10-12] MEDS: METOPROLOL TARTRATE 25 MG TABLET GT SCH ×2 (09:26→21:18)
[2020-10-12] MEDS: levETIRAcetam 500 MG TABLET GT SCH ×2 (09:26→21:13)
[2020-10-12] MEDS: VITAMINS A AND D OINT TP SCH ×2 (09:27→21:20)
--- NOTE | 2020-10-12 13:00 | NUR ---
Seen and examined by Cari Price,no new orders noted.
--- NOTE | 2020-10-12 13:12 | NUR ---
Seen and examined by Dr Peralta with new orders noted and carried out.
--- NOTE | 2020-10-12 16:40 | NUR ---
INTERDISCIPLINARY PLAN OF CARE CONFERENCE was held today. Patient's family was not available to participate in the IDT meeting today. Dr. Peralta and the Interdisciplinary Team reviewed the current plan of care in detail. Nursing reported on patient's medical condition, and findings of recent labs. See nursing IDT conference notes. Dietary discussed adjustments in feeding. See all disciplines IDT notes and physician's progress notes for additional details.
[2020-10-12 20:01] VITALS: BP 167/81
[2020-10-12] MEDS: MINERAL OIL/PETROLAT OPHT OINT 3.5 GM TUBE EACHEYE SCH (21:11)
[2020-10-12] MEDS: ATORVASTATIN 40 MG TABLET GT SCH (21:14)
[2020-10-12] MEDS: THIAMINE HCL 100 MG TABLET GT SCH (21:19)
[2020-10-12 21:20] VITALS: BP 145/82
[2020-10-13] MEDS: BLOOD SUGAR DIAGNOSTIC 1 EACH STRIP VI SCH ×4 (05:48→23:53)
[2020-10-13] MEDS: INSULIN REGULAR, HUMAN 300 UNIT/3 ML VIAL SQ PRN ×4 (05:49→23:54)
[2020-10-13 07:40] VITALS: BP 137/88
[2020-10-13] MEDS: PHENOBARBITAL 97.2 MG GT SCH (09:00)
[2020-10-13] MEDS: METOPROLOL TARTRATE 25 MG TABLET GT SCH ×2 (09:00→21:07)
[2020-10-13] MEDS: FAMOTIDINE 20 MG TABLET GT SCH ×2 (09:00→21:07)
[2020-10-13] MEDS: TERAZOSIN 1 MG CAPSULE GT SCH (09:00)
[2020-10-13] MEDS: COD LIVER OIL/ZINC OXIDE OINT 113 GM TUBE TOP SCH ×2 (09:00→21:08)
[2020-10-13] MEDS: ENOXAPARIN SODIUM 40 MG/0.4 ML DISP.SYRIN SQ SCH (09:00)
[2020-10-13] MEDS: levETIRAcetam 500 MG TABLET GT SCH ×2 (09:00→21:05)
[2020-10-13] MEDS: DOCUSATE SODIUM 100 MG/10 ML LIQUID UDC GT SCH ×2 (09:00→21:01)
[2020-10-13] MEDS: VITAMINS A AND D OINT TP SCH ×2 (10:00→21:08)
[2020-10-13] MEDS: HYDROGEN PEROXIDE 3% 118 ML BOTTLE TP SCH ×2 (10:10→21:40)
[2020-10-13 20:00] VITALS: BP 136/82
[2020-10-13] MEDS: MINERAL OIL/PETROLAT OPHT OINT 3.5 GM TUBE EACHEYE SCH (21:01)
[2020-10-13] MEDS: ATORVASTATIN 40 MG TABLET GT SCH (21:06)
[2020-10-13] MEDS: THIAMINE HCL 100 MG TABLET GT SCH (21:07)
[2020-10-14] MEDS: GLUCERNA 1.2 1000ML LIQUID GT PRN ×2 (02:00→15:18)
[2020-10-14] MEDS: BLOOD SUGAR DIAGNOSTIC 1 EACH STRIP VI SCH ×3 (05:46→17:51)
[2020-10-14] MEDS: INSULIN REGULAR, HUMAN 300 UNIT/3 ML VIAL SQ PRN ×3 (05:47→17:53)
[2020-10-14 07:54] VITALS: BP 150/80
[2020-10-14] MEDS: DOCUSATE SODIUM 100 MG/10 ML LIQUID UDC GT SCH ×2 (09:11→21:00)
[2020-10-14] MEDS: PHENOBARBITAL 97.2 MG GT SCH (09:11)
[2020-10-14] MEDS: TERAZOSIN 1 MG CAPSULE GT SCH (09:12)
[2020-10-14] MEDS: levETIRAcetam 500 MG TABLET GT SCH ×2 (09:14→21:00)
[2020-10-14] MEDS: FAMOTIDINE 20 MG TABLET GT SCH ×2 (09:15→21:00)
[2020-10-14] MEDS: METOPROLOL TARTRATE 25 MG TABLET GT SCH ×2 (09:15→21:00)
[2020-10-14] MEDS: ENOXAPARIN SODIUM 40 MG/0.4 ML DISP.SYRIN SQ SCH (09:16)
[2020-10-14] MEDS: COD LIVER OIL/ZINC OXIDE OINT 113 GM TUBE TOP SCH ×2 (09:16→21:00)
[2020-10-14] MEDS: VITAMINS A AND D OINT TP SCH ×2 (09:16→21:00)
[2020-10-14] MEDS: HYDROGEN PEROXIDE 3% 118 ML BOTTLE TP SCH ×2 (10:20→21:08)
--- NOTE | 2020-10-14 13:20 | NUR ---
Spoke with Pt's daughter Janis Molina. Verbal consent given by Janis Molina for patient to receive COVID 19 Vaccine.
[2020-10-14] MEDS: CEFTRIAXONE 1 G in IV DEXTROSE 5% 50 ML IV SCH (20:00)
[2020-10-14 20:17] VITALS: BP 143/83
[2020-10-14] MEDS: THIAMINE HCL 100 MG TABLET GT SCH (21:00)
[2020-10-14] MEDS: MINERAL OIL/PETROLAT OPHT OINT 3.5 GM TUBE EACHEYE SCH (21:00)
[2020-10-14] MEDS: ATORVASTATIN 40 MG TABLET GT SCH (21:00)
[2020-10-14] MEDS ORDERED: CEFTRIAXONE /D5W 50ML IVPB **ER PYXIS IV ONE (21:15)
[2020-10-15] MEDS: BLOOD SUGAR DIAGNOSTIC 1 EACH STRIP VI SCH ×5 (00:46→18:12)
[2020-10-15] MEDS: INSULIN REGULAR, HUMAN 300 UNIT/3 ML VIAL SQ PRN ×4 (00:49→18:13)
--- NOTE | 2020-10-15 03:09 | NUR ---
started on ceftriaxone 1 gm iv daily for pneumonia, no adverse reaction noted, a febrile.
[2020-10-15] MEDS: GLUCERNA 1.2 1000ML LIQUID GT PRN (06:00)
[2020-10-15 08:30] VITALS: BP 150/80
[2020-10-15] MEDS: VITAMINS A AND D OINT TP SCH ×2 (09:00→21:03)
[2020-10-15] MEDS: COD LIVER OIL/ZINC OXIDE OINT 113 GM TUBE TP SCH ×2 (09:00→21:03)
[2020-10-15] MEDS: HYDROGEN PEROXIDE 3% 118 ML BOTTLE TP SCH ×2 (09:03→21:00)
[2020-10-15] MEDS: PHENOBARBITAL 97.2 MG GT SCH (09:56)
[2020-10-15] MEDS: TERAZOSIN 1 MG CAPSULE GT SCH (09:56)
[2020-10-15] MEDS: DOCUSATE SODIUM 100 MG/10 ML LIQUID UDC GT SCH ×2 (09:56→21:02)
[2020-10-15] MEDS: levETIRAcetam 500 MG TABLET GT SCH ×2 (09:57→21:02)
[2020-10-15] MEDS: METOPROLOL TARTRATE 25 MG TABLET GT SCH ×2 (09:58→21:03)
[2020-10-15] MEDS: FAMOTIDINE 20 MG TABLET GT SCH ×2 (09:58→21:03)
[2020-10-15] MEDS: ENOXAPARIN SODIUM 40 MG/0.4 ML DISP.SYRIN SQ SCH (09:59)
[2020-10-15] MEDS: COD LIVER OIL/ZINC OXIDE OINT 113 GM TUBE TOP SCH ×2 (10:00→21:03)
[2020-10-15] MEDS: LORAZEPAM 1 MG TABLET GT PRN ×2 (12:57→18:35)
[2020-10-15 19:46] VITALS: BP 128/78
[2020-10-15] MEDS: CEFTRIAXONE 1 G in IV DEXTROSE 5% 50 ML IV SCH (20:00)
[2020-10-15] MEDS: MINERAL OIL/PETROLAT OPHT OINT 3.5 GM TUBE EACHEYE SCH (21:02)
[2020-10-15] MEDS: ATORVASTATIN 40 MG TABLET GT SCH (21:02)
[2020-10-15] MEDS: THIAMINE HCL 100 MG TABLET GT SCH (21:03)
[2020-10-15] MEDS ORDERED: CEFTRIAXONE /D5W 50ML IVPB **ER PYXIS IV ONE (21:56)
[2020-10-16] MEDS: BLOOD SUGAR DIAGNOSTIC 1 EACH STRIP VI SCH ×5 (00:30→23:29)
[2020-10-16] MEDS: GLUCERNA 1.2 1000ML LIQUID GT PRN ×2 (00:31→17:12)
[2020-10-16] MEDS: INSULIN REGULAR, HUMAN 300 UNIT/3 ML VIAL SQ PRN ×4 (00:38→23:29)
[2020-10-16] MEDS: HYDROGEN PEROXIDE 3% 118 ML BOTTLE TP SCH ×2 (07:45→21:15)
[2020-10-16 07:54] VITALS: BP 152/88
[2020-10-16 09:00] VITALS: BP 123/84
[2020-10-16] MEDS: DOCUSATE SODIUM 100 MG/10 ML LIQUID UDC GT SCH ×2 (09:14→20:25)
[2020-10-16] MEDS: PHENOBARBITAL 97.2 MG GT SCH (09:14)
[2020-10-16] MEDS: FAMOTIDINE 20 MG TABLET GT SCH ×2 (09:15→20:25)
[2020-10-16] MEDS: COD LIVER OIL/ZINC OXIDE OINT 113 GM TUBE TOP SCH ×2 (09:15→20:25)
[2020-10-16] MEDS: METOPROLOL TARTRATE 25 MG TABLET GT SCH ×2 (09:15→20:25)
[2020-10-16] MEDS: COD LIVER OIL/ZINC OXIDE OINT 113 GM TUBE TP SCH ×2 (09:15→20:25)
[2020-10-16] MEDS: levETIRAcetam 500 MG TABLET GT SCH ×2 (09:15→20:25)
[2020-10-16] MEDS: TERAZOSIN 1 MG CAPSULE GT SCH (09:15)
[2020-10-16] MEDS: VITAMINS A AND D OINT TP SCH ×2 (09:15→20:25)
[2020-10-16] MEDS: ENOXAPARIN SODIUM 40 MG/0.4 ML DISP.SYRIN SQ SCH (09:18)
--- NOTE | 2020-10-16 18:04 | NUR ---
Patient continues on Ceftriaone 1gm IV daily for PNA. No ASE noted. Remains afebrile. No SOB noted. No pain/discomfort noted. All need anticipated and met. Will continue to monitor.
[2020-10-16 20:00] VITALS: BP 142/79
[2020-10-16] MEDS: CEFTRIAXONE 1 G in IV DEXTROSE 5% 50 ML IV SCH (20:00)
[2020-10-16] MEDS: MINERAL OIL/PETROLAT OPHT OINT 3.5 GM TUBE EACHEYE SCH (20:25)
[2020-10-16] MEDS: ATORVASTATIN 40 MG TABLET GT SCH (20:25)
[2020-10-16] MEDS: THIAMINE HCL 100 MG TABLET GT SCH (20:25)
--- NOTE | 2020-10-17 02:40 | NUR ---
Afebrile, still on Rocephin IV for Pneumonia, no adverse reactions noted. trach is intact and patent, suctioned with thick yellow secretions, no respiratory distress noted, turned and repositioned, kept clean and comfortable.
[2020-10-17] MEDS: BLOOD SUGAR DIAGNOSTIC 1 EACH STRIP VI SCH ×4 (05:50→23:17)
[2020-10-17] MEDS: INSULIN REGULAR, HUMAN 300 UNIT/3 ML VIAL SQ PRN ×4 (05:50→23:17)
[2020-10-17 07:57] VITALS: BP 137/86
[2020-10-17] MEDS: PHENOBARBITAL 97.2 MG GT SCH (08:23)
[2020-10-17] MEDS: DOCUSATE SODIUM 100 MG/10 ML LIQUID UDC GT SCH ×2 (08:23→20:30)
[2020-10-17] MEDS: TERAZOSIN 1 MG CAPSULE GT SCH (08:23)
[2020-10-17] MEDS: levETIRAcetam 500 MG TABLET GT SCH ×2 (08:23→20:30)
[2020-10-17] MEDS: FAMOTIDINE 20 MG TABLET GT SCH ×2 (08:24→20:30)
[2020-10-17] MEDS: COD LIVER OIL/ZINC OXIDE OINT 113 GM TUBE TOP SCH ×2 (08:24→20:30)
[2020-10-17] MEDS: METOPROLOL TARTRATE 25 MG TABLET GT SCH ×2 (08:24→20:30)
[2020-10-17] MEDS: VITAMINS A AND D OINT TP SCH ×2 (08:24→20:30)
[2020-10-17] MEDS: COD LIVER OIL/ZINC OXIDE OINT 113 GM TUBE TP SCH ×2 (08:24→20:30)
[2020-10-17] MEDS: ENOXAPARIN SODIUM 40 MG/0.4 ML DISP.SYRIN SQ SCH (08:25)
[2020-10-17] MEDS: HYDROGEN PEROXIDE 3% 118 ML BOTTLE TP SCH ×2 (09:25→20:50)
[2020-10-17] MEDS: GLUCERNA 1.2 1000ML LIQUID GT PRN (11:02)
--- NOTE | 2020-10-17 12:28 | NUR ---
SARBJIT WAS CALLED RE:NEGATIVE TEST FOR COVID19 TEST.
--- NOTE | 2020-10-17 12:30 | NUR ---
MESSAGE LEFT FOR SARBJIT RE; NEGATIVE COVID 19 TEST.
--- NOTE | 2020-10-17 18:08 | NUR ---
Patient continues on Ceftriaxone 1gm IV daily for PNA. No ASE noted. Remains afebrile. No SOB noted. No pain/discomfort noted. All need anticipated and met. Kept dry and clean throughout the shift. Will continue to monitor.
[2020-10-17] MEDS: CEFTRIAXONE 1 G in IV DEXTROSE 5% 50 ML IV SCH (20:23)
[2020-10-17] MEDS: MINERAL OIL/PETROLAT OPHT OINT 3.5 GM TUBE EACHEYE SCH (20:30)
[2020-10-17] MEDS: THIAMINE HCL 100 MG TABLET GT SCH (20:30)
[2020-10-17] MEDS: ATORVASTATIN 40 MG TABLET GT SCH (20:30)
[2020-10-17 20:49] VITALS: BP 130/70
[2020-10-18] MEDS: GLUCERNA 1.2 1000ML LIQUID GT PRN ×2 (02:08→23:19)
[2020-10-18] MEDS: BLOOD SUGAR DIAGNOSTIC 1 EACH STRIP VI SCH ×4 (05:37→23:19)
[2020-10-18] MEDS: INSULIN REGULAR, HUMAN 300 UNIT/3 ML VIAL SQ PRN ×4 (05:38→23:43)
[2020-10-18 07:53] VITALS: BP 156/86
[2020-10-18] MEDS: PHENOBARBITAL 97.2 MG GT SCH (08:50)
[2020-10-18] MEDS: TERAZOSIN 1 MG CAPSULE GT SCH (08:50)
[2020-10-18] MEDS: DOCUSATE SODIUM 100 MG/10 ML LIQUID UDC GT SCH ×2 (08:50→21:09)
[2020-10-18] MEDS: levETIRAcetam 500 MG TABLET GT SCH ×2 (08:51→21:14)
[2020-10-18] MEDS: FAMOTIDINE 20 MG TABLET GT SCH ×2 (08:53→21:10)
[2020-10-18] MEDS: METOPROLOL TARTRATE 25 MG TABLET GT SCH ×2 (08:53→21:10)
[2020-10-18] MEDS: COD LIVER OIL/ZINC OXIDE OINT 113 GM TUBE TP SCH ×2 (08:53→21:10)
[2020-10-18] MEDS: COD LIVER OIL/ZINC OXIDE OINT 113 GM TUBE TOP SCH ×2 (08:54→21:10)
[2020-10-18] MEDS: ENOXAPARIN SODIUM 40 MG/0.4 ML DISP.SYRIN SQ SCH (08:55)
[2020-10-18] MEDS: HYDROGEN PEROXIDE 3% 118 ML BOTTLE TP SCH ×2 (09:00→21:54)
[2020-10-18] MEDS: VITAMINS A AND D OINT TP SCH ×2 (09:00→21:10)
[2020-10-18 12:43] LABS: BASOPHILS % (AUTO) 0.6 % (0.0-2.0); EOSINOPHILS % (AUTO) 0.5 % (0.0-7.0); HEMOGLOBIN 13.8 g/dL (12.5-16.3); LYMPHOCYTES # (AUTO) 0.9 K/uL (20.0-40.0); LYMPHOCYTES % (AUTO) 18.8 % (20.5-51.5); MEAN CORPUSCULAR HEMOGLOBIN 30.2 uug (23.8-33.4); MEAN CORPUSCULAR HGB CONC 35 g/dL (32.5-36.3); MEAN CORPUSCULAR VOLUME 87.3 fL (73.0-96.2); MONOCYTES # (AUTO) 0.4 K/uL (2.0-10.0); MONOCYTES % (AUTO) 8.2 % (0.0-11.0); NEUTROPHILS # (AUTO) 3.4 K/uL (1.8-8.9); NEUTROPHILS % (AUTO) 71.9 % (38.5-71.5); PLATELET COUNT (AUTO) 259 K/uL (152-348); RED BLOOD CELL COUNT(AUTO) 4.58 MIL/uL (4.06-5.63); WHITE BLOOD COUNT (AUTO) 4.7 K/uL (3.6-10.2)
--- NOTE | 2020-10-18 12:59 | NUR ---
SEEN BY FABY Montoya AND WITH NNO.
[2020-10-18 13:05] LABS: ALANINE AMINOTRANSFERASE 26 U/L (16-63); ALKALINE PHOSPHATASE 105 U/L (50-136); ASPARTATE AMINOTRANSFERASE 17 U/L (15-37); BILIRUBIN,TOTAL 0.4 mg/dL (0.2-1.0); CARBON DIOXIDE 30 mmol/L (21-32); CHLORIDE 97 mmol/L (98-107); CREATININE 0.5 mg/dL (0.6-1.3); GLUCOSE 193 mg/dL (74-106); POTASSIUM 3.9 mmol/L (3.5-5.1); TOTAL PROTEIN, SERUM 7.8 g/dL (6.4-8.2); UREA NITROGEN, BLOOD 13 mg/dL (7-18)
--- NOTE | 2020-10-18 14:00 | NUR ---
DR DAV Beltran WAS CALLED AND MESSAGE LEFT RE: PT'S FATHER WANTS A NEUROLOGY CONSULTATION TO EVAL FOR PROGNOSIS.
--- NOTE | 2020-10-18 16:45 | NUR ---
Video chat was done with pt's daughter.
[2020-10-18] MEDS: CEFTRIAXONE 1 G in IV DEXTROSE 5% 50 ML IV SCH (20:11)
[2020-10-18 20:56] VITALS: BP 158/89
[2020-10-18] MEDS: ATORVASTATIN 40 MG TABLET GT SCH (21:09)
[2020-10-18] MEDS: MINERAL OIL/PETROLAT OPHT OINT 3.5 GM TUBE EACHEYE SCH (21:09)
[2020-10-18] MEDS: THIAMINE HCL 100 MG TABLET GT SCH (21:10)
[2020-10-19] MEDS: GLUCERNA 1.2 1000ML LIQUID GT PRN (05:27)
[2020-10-19] MEDS: BLOOD SUGAR DIAGNOSTIC 1 EACH STRIP VI SCH ×3 (05:27→18:14)
[2020-10-19] MEDS: INSULIN REGULAR, HUMAN 300 UNIT/3 ML VIAL SQ PRN ×3 (06:04→18:15)
[2020-10-19] MEDS: HYDROGEN PEROXIDE 3% 118 ML BOTTLE TP SCH ×2 (07:34→21:55)
[2020-10-19 07:58] VITALS: BP 148/77
[2020-10-19] MEDS: PHENOBARBITAL 97.2 MG GT SCH (08:46)
[2020-10-19] MEDS: DOCUSATE SODIUM 100 MG/10 ML LIQUID UDC GT SCH ×2 (08:46→21:00)
[2020-10-19] MEDS: COD LIVER OIL/ZINC OXIDE OINT 113 GM TUBE TP SCH ×2 (08:47→21:04)
[2020-10-19] MEDS: COD LIVER OIL/ZINC OXIDE OINT 113 GM TUBE TOP SCH ×2 (08:47→21:04)
[2020-10-19] MEDS: levETIRAcetam 500 MG TABLET GT SCH ×2 (08:47→21:00)
[2020-10-19] MEDS: FAMOTIDINE 20 MG TABLET GT SCH ×2 (08:47→21:03)
[2020-10-19] MEDS: TERAZOSIN 1 MG CAPSULE GT SCH (08:47)
[2020-10-19] MEDS: VITAMINS A AND D OINT TP SCH ×2 (08:47→21:04)
[2020-10-19] MEDS: METOPROLOL TARTRATE 25 MG TABLET GT SCH ×2 (08:47→21:02)
[2020-10-19] MEDS: ENOXAPARIN SODIUM 40 MG/0.4 ML DISP.SYRIN SQ SCH (09:42)
--- NOTE | 2020-10-19 18:00 | NUR ---
Continue on ivatb,no adverse reaction noted,iv site on the L hand intact.
[2020-10-19 19:50] VITALS: BP 144/81
[2020-10-19] MEDS: CEFTRIAXONE 1 G in IV DEXTROSE 5% 50 ML IV SCH (20:00)
[2020-10-19] MEDS: MINERAL OIL/PETROLAT OPHT OINT 3.5 GM TUBE EACHEYE SCH (21:00)
[2020-10-19] MEDS: ATORVASTATIN 40 MG TABLET GT SCH (21:01)
[2020-10-19] MEDS: THIAMINE HCL 100 MG TABLET GT SCH (21:03)
--- NOTE | 2020-10-19 22:07 | NUR ---
Patient's father was asking why was he not informed about patient getting IV therapy. I explained to him that staff must have called patient's daughter ( Janis). Patient's father stated that he wants a follow- up for his son with Neurologist (Dr. Rios) and he stated that he left a message to Dr. Rios a message to call him back. Addendum: 10/19/20 at 2221 by ISRRAEL ESTEVES RN Patient is on Rocephin IV for Pneumonia, no adverse reactions noted, afebrile, still with thick yellow secretions, suctioned as needed, no respiratory distress noted. No signs of any pain or discomfort, kept clean and comfortable.
[2020-10-20] MEDS: BLOOD SUGAR DIAGNOSTIC 1 EACH STRIP VI SCH ×4 (00:37→17:58)
[2020-10-20] MEDS: INSULIN REGULAR, HUMAN 300 UNIT/3 ML VIAL SQ PRN ×4 (00:41→18:01)
[2020-10-20] MEDS: GLUCERNA 1.2 1000ML LIQUID GT PRN ×2 (04:33→23:00)
[2020-10-20 07:56] VITALS: BP 147/86
[2020-10-20] MEDS: ENOXAPARIN SODIUM 40 MG/0.4 ML DISP.SYRIN SQ SCH (09:40)
[2020-10-20] MEDS: FAMOTIDINE 20 MG TABLET GT SCH ×2 (09:41→21:46)
[2020-10-20] MEDS: METOPROLOL TARTRATE 25 MG TABLET GT SCH ×2 (09:41→21:45)
[2020-10-20] MEDS: DOCUSATE SODIUM 100 MG/10 ML LIQUID UDC GT SCH ×2 (09:42→21:43)
[2020-10-20] MEDS: COD LIVER OIL/ZINC OXIDE OINT 113 GM TUBE TP SCH ×2 (09:42→21:46)
[2020-10-20] MEDS: COD LIVER OIL/ZINC OXIDE OINT 113 GM TUBE TOP SCH ×2 (09:42→21:46)
[2020-10-20] MEDS: VITAMINS A AND D OINT TP SCH ×2 (09:42→21:47)
[2020-10-20] MEDS: levETIRAcetam 500 MG TABLET GT SCH ×2 (09:42→21:44)
[2020-10-20] MEDS: PHENOBARBITAL 97.2 MG GT SCH (09:42)
[2020-10-20] MEDS: TERAZOSIN 1 MG CAPSULE GT SCH (09:42)
[2020-10-20] MEDS: HYDROGEN PEROXIDE 3% 118 ML BOTTLE TP SCH ×2 (10:10→21:55)
--- NOTE | 2020-10-20 18:00 | NUR ---
Covid vaccine not given,pt continue on ivatb.
[2020-10-20 20:15] VITALS: BP 138/78
[2020-10-20] MEDS: CEFTRIAXONE 1 G in IV DEXTROSE 5% 50 ML IV SCH (21:00)
[2020-10-20] MEDS: MINERAL OIL/PETROLAT OPHT OINT 3.5 GM TUBE EACHEYE SCH (21:43)
[2020-10-20] MEDS: ATORVASTATIN 40 MG TABLET GT SCH (21:44)
[2020-10-20] MEDS: THIAMINE HCL 100 MG TABLET GT SCH (21:46)
[2020-10-21] MEDS: INSULIN REGULAR, HUMAN 300 UNIT/3 ML VIAL SQ PRN ×5 (04:37→17:39)
[2020-10-21] MEDS: BLOOD SUGAR DIAGNOSTIC 1 EACH STRIP VI SCH ×4 (06:11→17:25)
[2020-10-21 07:55] VITALS: BP 138/81
[2020-10-21] MEDS: PHENOBARBITAL 97.2 MG GT SCH (08:17)
[2020-10-21] MEDS: DOCUSATE SODIUM 100 MG/10 ML LIQUID UDC GT SCH ×2 (08:17→21:42)
[2020-10-21] MEDS: FAMOTIDINE 20 MG TABLET GT SCH ×2 (08:18→21:43)
[2020-10-21] MEDS: METOPROLOL TARTRATE 25 MG TABLET GT SCH ×2 (08:18→21:43)
[2020-10-21] MEDS: TERAZOSIN 1 MG CAPSULE GT SCH (08:18)
[2020-10-21] MEDS: levETIRAcetam 500 MG TABLET GT SCH ×2 (08:18→21:42)
[2020-10-21] MEDS: VITAMINS A AND D OINT TP SCH ×2 (08:19→21:44)
[2020-10-21] MEDS: COD LIVER OIL/ZINC OXIDE OINT 113 GM TUBE TP SCH ×2 (08:19→21:44)
[2020-10-21] MEDS: COD LIVER OIL/ZINC OXIDE OINT 113 GM TUBE TOP SCH ×2 (08:19→21:43)
[2020-10-21] MEDS: ENOXAPARIN SODIUM 40 MG/0.4 ML DISP.SYRIN SQ SCH (08:19)
[2020-10-21] MEDS: HYDROGEN PEROXIDE 3% 118 ML BOTTLE TP SCH ×2 (09:00→18:45)
[2020-10-21] MEDS: GLUCERNA 1.2 1000ML LIQUID GT PRN (16:40)
[2020-10-21 19:56] VITALS: BP 139/83
[2020-10-21] MEDS: MINERAL OIL/PETROLAT OPHT OINT 3.5 GM TUBE EACHEYE SCH (21:26)
[2020-10-21] MEDS: ATORVASTATIN 40 MG TABLET GT SCH (21:42)
[2020-10-21] MEDS: THIAMINE HCL 100 MG TABLET GT SCH (21:43)
[2020-10-22] MEDS: BLOOD SUGAR DIAGNOSTIC 1 EACH STRIP VI SCH ×4 (00:57→18:23)
[2020-10-22] MEDS: INSULIN REGULAR, HUMAN 300 UNIT/3 ML VIAL SQ PRN ×3 (01:01→18:25)
[2020-10-22] MEDS: HYDROGEN PEROXIDE 3% 118 ML BOTTLE TP SCH ×2 (07:46→21:52)
[2020-10-22 07:52] VITALS: BP 166/92
[2020-10-22] MEDS: PHENOBARBITAL 97.2 MG GT SCH (08:52)
[2020-10-22] MEDS: DOCUSATE SODIUM 100 MG/10 ML LIQUID UDC GT SCH ×2 (08:52→21:30)
[2020-10-22] MEDS: METOPROLOL TARTRATE 25 MG TABLET GT SCH ×2 (08:53→21:31)
[2020-10-22] MEDS: TERAZOSIN 1 MG CAPSULE GT SCH (08:53)
[2020-10-22] MEDS: levETIRAcetam 500 MG TABLET GT SCH ×2 (08:53→21:30)
[2020-10-22] MEDS: FAMOTIDINE 20 MG TABLET GT SCH ×2 (08:54→21:31)
[2020-10-22] MEDS: ENOXAPARIN SODIUM 40 MG/0.4 ML DISP.SYRIN SQ SCH (08:57)
[2020-10-22] MEDS: COD LIVER OIL/ZINC OXIDE OINT 113 GM TUBE TOP SCH ×2 (09:03→21:32)
[2020-10-22] MEDS: COD LIVER OIL/ZINC OXIDE OINT 113 GM TUBE TP SCH ×2 (09:03→21:32)
[2020-10-22] MEDS: VITAMINS A AND D OINT TP SCH ×2 (09:03→21:32)
--- NOTE | 2020-10-22 19:00 | NUR ---
Seen by Dr. Peralta with no new orders.
[2020-10-22] MEDS: LORAZEPAM 1 MG TABLET GT PRN (19:29)
[2020-10-22 20:33] VITALS: BP 136/85
[2020-10-22] MEDS: MINERAL OIL/PETROLAT OPHT OINT 3.5 GM TUBE EACHEYE SCH (21:30)
[2020-10-22] MEDS: ATORVASTATIN 40 MG TABLET GT SCH (21:30)
[2020-10-22] MEDS: THIAMINE HCL 100 MG TABLET GT SCH (21:32)
[2020-10-23] MEDS: BLOOD SUGAR DIAGNOSTIC 1 EACH STRIP VI SCH ×4 (00:44→17:27)
[2020-10-23] MEDS: INSULIN REGULAR, HUMAN 300 UNIT/3 ML VIAL SQ PRN ×4 (00:49→17:28)
[2020-10-23] MEDS: GLUCERNA 1.2 1000ML LIQUID GT PRN ×2 (01:10→17:40)
[2020-10-23 07:48] VITALS: BP 140/70
[2020-10-23] MEDS: levETIRAcetam 500 MG/5 ML LIQUID UDC GT SCH ×2 (08:43→21:00)
[2020-10-23] MEDS: PHENOBARBITAL 97.2 MG GT SCH (08:43)
[2020-10-23] MEDS: DOCUSATE SODIUM 100 MG/10 ML LIQUID UDC GT SCH ×2 (08:43→21:00)
[2020-10-23] MEDS: TERAZOSIN 1 MG CAPSULE GT SCH (08:43)
[2020-10-23] MEDS: METOPROLOL TARTRATE 25 MG TABLET GT SCH ×2 (08:44→21:00)
[2020-10-23] MEDS: FAMOTIDINE 20 MG TABLET GT SCH ×2 (08:48→21:00)
[2020-10-23] MEDS: ENOXAPARIN SODIUM 40 MG/0.4 ML DISP.SYRIN SQ SCH (08:48)
[2020-10-23] MEDS: COD LIVER OIL/ZINC OXIDE OINT 113 GM TUBE TOP SCH ×2 (08:51→21:00)
[2020-10-23] MEDS: COD LIVER OIL/ZINC OXIDE OINT 113 GM TUBE TP SCH ×2 (08:51→21:00)
[2020-10-23] MEDS: VITAMINS A AND D OINT TP SCH ×2 (08:51→21:00)
[2020-10-23] MEDS: HYDROGEN PEROXIDE 3% 118 ML BOTTLE TP SCH ×2 (09:00→21:00)
--- NOTE | 2020-10-23 18:42 | NUR ---
no rashes or adverse reaction from moderna covid vaccine observed. Addendum: 10/23/20 at 1843 by ARELY YAÑEZ LVN wrong entry disregard
[2020-10-23 20:06] VITALS: BP 142/95
[2020-10-23] MEDS: MINERAL OIL/PETROLAT OPHT OINT 3.5 GM TUBE EACHEYE SCH (21:00)
[2020-10-23] MEDS: ATORVASTATIN 40 MG TABLET GT SCH (21:00)
[2020-10-23] MEDS: THIAMINE HCL 100 MG TABLET GT SCH (21:00)
[2020-10-23] MEDS: LORAZEPAM 1 MG TABLET GT PRN (22:27)
[2020-10-24] MEDS: BLOOD SUGAR DIAGNOSTIC 1 EACH STRIP VI SCH ×4 (00:35→17:17)
[2020-10-24] MEDS: INSULIN REGULAR, HUMAN 300 UNIT/3 ML VIAL SQ PRN ×4 (00:37→17:18)
[2020-10-24 08:22] VITALS: BP 169/96
[2020-10-24] MEDS: PHENOBARBITAL 97.2 MG GT SCH (09:38)
[2020-10-24] MEDS: DOCUSATE SODIUM 100 MG/10 ML LIQUID UDC GT SCH ×2 (09:38→21:50)
[2020-10-24] MEDS: METOPROLOL TARTRATE 25 MG TABLET GT SCH ×2 (09:39→21:52)
[2020-10-24] MEDS: levETIRAcetam 500 MG/5 ML LIQUID UDC GT SCH ×2 (09:39→21:51)
[2020-10-24] MEDS: TERAZOSIN 1 MG CAPSULE GT SCH (09:39)
[2020-10-24] MEDS: FAMOTIDINE 20 MG TABLET GT SCH ×2 (09:39→21:52)
[2020-10-24] MEDS: ENOXAPARIN SODIUM 40 MG/0.4 ML DISP.SYRIN SQ SCH (09:40)
[2020-10-24] MEDS: VITAMINS A AND D OINT TP SCH ×2 (09:41→21:52)
[2020-10-24] MEDS: COD LIVER OIL/ZINC OXIDE OINT 113 GM TUBE TOP SCH ×2 (09:41→21:52)
[2020-10-24] MEDS: COD LIVER OIL/ZINC OXIDE OINT 113 GM TUBE TP SCH ×2 (09:41→21:52)
[2020-10-24] MEDS: GLUCERNA 1.2 1000ML LIQUID GT PRN (09:50)
[2020-10-24] MEDS: HYDROGEN PEROXIDE 3% 118 ML BOTTLE TP SCH ×2 (10:10→21:50)
[2020-10-24] MEDS: MINERAL OIL/PETROLAT OPHT OINT 3.5 GM TUBE EACHEYE SCH (21:50)
[2020-10-24] MEDS: ATORVASTATIN 40 MG TABLET GT SCH (21:51)
[2020-10-24] MEDS: THIAMINE HCL 100 MG TABLET GT SCH (21:52)
[2020-10-24 22:00] VITALS: BP 150/84
[2020-10-25] MEDS: INSULIN REGULAR, HUMAN 300 UNIT/3 ML VIAL SQ PRN
[2020-10-25] MEDS: BLOOD SUGAR DIAGNOSTIC 1 EACH STRIP VI SCH ×2 (00:09)
[2020-10-25] MEDS: GLUCERNA 1.2 1000ML LIQUID GT PRN (01:44)
[2020-10-25 07:00] VITALS: BP 147/97
== END 2020-10-21 23:59 | disposition still patient (30) | DRG 133 ==
LOC: SA 20:47
PROVIDERS: ADMIT Family Medicine; ATTEND Family Medicine
DX: J96.21 Acute and chronic respiratory failure with hypoxia (principal); G93.49 Other encephalopathy; G40.909 Epilepsy, unspecified, not intractable, without status epilepticus; D68.59 Other primary thrombophilia; E11.65 Type 2 diabetes mellitus with hyperglycemia; E43 Unspecified severe protein-calorie malnutrition; E78.5 Hyperlipidemia, unspecified; E87.1 Hypo-osmolality and hyponatremia; F17.210 Nicotine dependence, cigarettes, uncomplicated; G93.1 Anoxic brain damage, not elsewhere classified; G93.41 Metabolic encephalopathy; I69.298 Other sequelae of other nontraumatic intracranial hemorrhage; I11.0 Hypertensive heart disease with heart failure; I48.0 Paroxysmal atrial fibrillation; I48.92 Unspecified atrial flutter; I50.9 Heart failure, unspecified; I67.2 Cerebral atherosclerosis; I70.0 Atherosclerosis of aorta; J44.9 Chronic obstructive pulmonary disease, unspecified; R13.10 Dysphagia, unspecified; Z87.01 Personal history of pneumonia (recurrent); Z88.5 Allergy status to narcotic agent; Z93.0 Tracheostomy status
CPT/HCPCS: 36415; 36600; 70450; 71045; 80184; 83735; 84100; 84300; 84443; 84550; 85025; 86580; 86704; 86708; 87040; 87070; 87077; 87806; 93005; 94640; 95819; C1758; J0696; J1650; J1815; J2185; J3370; J3490; J7060; U0003

== ENCOUNTER 2020-10-22 | Inpatient (IN) | payer MEDICAID ==
[~2020-10-22] VITALS: Ht 165.1 cm; Wt 61.2 kg
[2020-10-24] MEDS ORDERED: GLUCERNA 1.2 1000ML LIQUID GT PRN (05:30)
[2020-10-25 08:00] VITALS: BP 147/97
[2020-10-25] MEDS ORDERED: ACETAMINOPHEN 650 MG/20.3 ML LIQUID UDC GT PRN (10:45)
[2020-10-25] MEDS ORDERED: TUBERCULIN,PURIF.PROT.DERIV. 5 TU/0.1 ML TEST ID SCH (10:45)
[2020-10-25] MEDS ORDERED: DEXTROSE 50% 50 ML DISP.SYRIN IV PRN (10:45)
[2020-10-25] MEDS ORDERED: ALBUTEROL SULFATE 2.5 MG/3 ML NEBU NEB PRN (10:45)
[2020-10-25] MEDS ORDERED: POLYVINYL ALCOHOL OPHT DROPS 15 ML BOTTLE EACHEYE PRN (10:45)
[2020-10-25] MEDS: BLOOD SUGAR DIAGNOSTIC 1 EACH STRIP VI SCH ×2 (12:00→17:45)
[2020-10-25 12:08] VITALS: BP 149/71
[2020-10-25] MEDS: INSULIN REGULAR, HUMAN 300 UNIT/3 ML VIAL SQ PRN ×2 (13:29→17:45)
--- NOTE | 2020-10-25 15:45 | NUR ---
ZOOM PROVIDED TO FAMILY.
[2020-10-25] MEDS: GLUCERNA 1.2 1000ML LIQUID GT PRN (17:45)
[2020-10-25 20:21] VITALS: BP 145/82
[2020-10-25] MEDS: HYDROGEN PEROXIDE 3% 118 ML BOTTLE TP SCH (21:00)
[2020-10-25] MEDS: MINERAL OIL/PETROLAT OPHT OINT 3.5 GM TUBE EACHEYE SCH (21:36)
[2020-10-25] MEDS: THIAMINE HCL 100 MG TABLET GT SCH (21:37)
[2020-10-25] MEDS: levETIRAcetam 500 MG/5 ML LIQUID UDC GT SCH (21:37)
[2020-10-25] MEDS: DOCUSATE SODIUM 100 MG/10 ML LIQUID UDC GT SCH (21:37)
[2020-10-25] MEDS: METOPROLOL TARTRATE 25 MG TABLET GT SCH (21:37)
[2020-10-25] MEDS: ATORVASTATIN 40 MG TABLET GT SCH (21:37)
[2020-10-25] MEDS: COD LIVER OIL/ZINC OXIDE OINT 113 GM TUBE TOP SCH (21:37)
[2020-10-25] MEDS: FAMOTIDINE 20 MG TABLET GT SCH (21:37)
[2020-10-25] MEDS: VITAMINS A AND D OINT TP SCH (21:38)
[2020-10-25] MEDS: COD LIVER OIL/ZINC OXIDE OINT 113 GM TUBE TP SCH (21:38)
[2020-10-26] MEDS: BLOOD SUGAR DIAGNOSTIC 1 EACH STRIP VI SCH ×5 (00:44→23:50)
[2020-10-26] MEDS: INSULIN REGULAR, HUMAN 300 UNIT/3 ML VIAL SQ PRN ×5 (06:06→23:51)
[2020-10-26 07:44] VITALS: BP 177/88
[2020-10-26] MEDS: DOCUSATE SODIUM 100 MG/10 ML LIQUID UDC GT SCH ×2 (08:14→21:47)
[2020-10-26] MEDS: TERAZOSIN 1 MG CAPSULE GT SCH (08:15)
[2020-10-26] MEDS: FAMOTIDINE 20 MG TABLET GT SCH ×2 (08:15→21:49)
[2020-10-26] MEDS: levETIRAcetam 500 MG/5 ML LIQUID UDC GT SCH ×2 (08:15→21:49)
[2020-10-26] MEDS: METOPROLOL TARTRATE 25 MG TABLET GT SCH ×2 (08:15→21:49)
[2020-10-26] MEDS: PHENOBARBITAL 97.2 MG GT SCH (08:15)
[2020-10-26] MEDS: COD LIVER OIL/ZINC OXIDE OINT 113 GM TUBE TOP SCH ×2 (08:16→21:50)
[2020-10-26] MEDS: ENOXAPARIN SODIUM 40 MG/0.4 ML DISP.SYRIN SQ SCH (08:16)
[2020-10-26] MEDS: VITAMINS A AND D OINT TP SCH ×2 (08:16→21:50)
[2020-10-26] MEDS: COD LIVER OIL/ZINC OXIDE OINT 113 GM TUBE TP SCH ×2 (08:16→21:50)
[2020-10-26] MEDS: HYDROGEN PEROXIDE 3% 118 ML BOTTLE TP SCH ×2 (09:00→21:43)
[2020-10-26] MEDS: GLUCERNA 1.2 1000ML LIQUID GT PRN (09:42)
[2020-10-26 09:46] VITALS: BP 115/62
--- NOTE | 2020-10-26 11:40 | NUR ---
WOUND CARE CONSULT: PT SEEN FOR DEEP TISSUE INJURY IN EVOLUTION TO SACRAL AREA, PRESENT ON ADMISSION. WOUND MEASURES 2CM X 1CM X UTD AND IS RED AND PURPLE IN COLOR, SCANT PINK DRAINAGE NOTED, NO ODOR. RECOMMEND OIL EMULSION DRESSING, COVER WITH FOAM DRESSING AND OFFLOAD AREA. DISCUSSED WITH NURSING STAFF. MD IN AGREEMENT WITH PLAN OF CARE.
[2020-10-26 12:00] VITALS: BP 135/78
[2020-10-26] MEDS: hydrALAZINE HCL 25 MG TABLET GT PRN (18:16)
[2020-10-26 20:40] VITALS: BP 147/80
[2020-10-26] MEDS: MINERAL OIL/PETROLAT OPHT OINT 3.5 GM TUBE EACHEYE SCH (21:47)
[2020-10-26] MEDS: ATORVASTATIN 40 MG TABLET GT SCH (21:49)
[2020-10-26] MEDS: THIAMINE HCL 100 MG TABLET GT SCH (21:49)
[2020-10-27] VITALS: BP 158/85
[2020-10-27] MEDS: GLUCERNA 1.2 1000ML LIQUID GT PRN (02:36)
[2020-10-27] MEDS: BLOOD SUGAR DIAGNOSTIC 1 EACH STRIP VI SCH ×3 (05:53→17:53)
[2020-10-27] MEDS: INSULIN REGULAR, HUMAN 300 UNIT/3 ML VIAL SQ PRN ×3 (05:54→17:56)
[2020-10-27 06:13] VITALS: BP 167/89
[2020-10-27] MEDS: hydrALAZINE HCL 25 MG TABLET GT PRN (06:13)
[2020-10-27 07:45] VITALS: BP 155/86
[2020-10-27] MEDS: DOCUSATE SODIUM 100 MG/10 ML LIQUID UDC GT SCH ×2 (08:39→20:34)
[2020-10-27] MEDS: PHENOBARBITAL 97.2 MG GT SCH (08:39)
[2020-10-27] MEDS: levETIRAcetam 500 MG/5 ML LIQUID UDC GT SCH ×2 (08:40→20:34)
[2020-10-27] MEDS: TERAZOSIN 1 MG CAPSULE GT SCH (08:40)
[2020-10-27] MEDS: FAMOTIDINE 20 MG TABLET GT SCH ×2 (08:41→20:36)
[2020-10-27] MEDS: COD LIVER OIL/ZINC OXIDE OINT 113 GM TUBE TOP SCH ×2 (08:41→20:37)
[2020-10-27] MEDS: METOPROLOL TARTRATE 25 MG TABLET GT SCH ×2 (08:41→20:36)
[2020-10-27] MEDS: COD LIVER OIL/ZINC OXIDE OINT 113 GM TUBE TP SCH ×2 (08:42→20:37)
[2020-10-27] MEDS: ENOXAPARIN SODIUM 40 MG/0.4 ML DISP.SYRIN SQ SCH (08:42)
[2020-10-27] MEDS: HYDROGEN PEROXIDE 3% 118 ML BOTTLE TP SCH ×2 (09:00→21:42)
[2020-10-27] MEDS: VITAMINS A AND D OINT TP SCH ×2 (09:00→20:37)
[2020-10-27 20:09] VITALS: BP 152/84
[2020-10-27] MEDS: MINERAL OIL/PETROLAT OPHT OINT 3.5 GM TUBE EACHEYE SCH (20:34)
[2020-10-27] MEDS: ATORVASTATIN 40 MG TABLET GT SCH (20:35)
[2020-10-27] MEDS: THIAMINE HCL 100 MG TABLET GT SCH (20:37)
[2020-10-28] MEDS: INSULIN REGULAR, HUMAN 300 UNIT/3 ML VIAL SQ PRN ×4 (00:01→17:17)
[2020-10-28] MEDS: BLOOD SUGAR DIAGNOSTIC 1 EACH STRIP VI SCH ×4 (05:56→17:16)
[2020-10-28 07:46] VITALS: BP 147/83
[2020-10-28] MEDS: HYDROGEN PEROXIDE 3% 118 ML BOTTLE TP SCH ×2 (09:00→21:40)
[2020-10-28] MEDS: DOCUSATE SODIUM 100 MG/10 ML LIQUID UDC GT SCH ×2 (09:09→21:45)
[2020-10-28] MEDS: TERAZOSIN 1 MG CAPSULE GT SCH (09:10)
[2020-10-28] MEDS: PHENOBARBITAL 97.2 MG GT SCH (09:10)
[2020-10-28] MEDS: levETIRAcetam 500 MG/5 ML LIQUID UDC GT SCH ×2 (09:12→21:45)
[2020-10-28] MEDS: METOPROLOL TARTRATE 25 MG TABLET GT SCH ×2 (09:12→21:45)
[2020-10-28] MEDS: FAMOTIDINE 20 MG TABLET GT SCH ×2 (09:12→21:45)
[2020-10-28] MEDS: COD LIVER OIL/ZINC OXIDE OINT 113 GM TUBE TP SCH ×2 (09:13→21:45)
[2020-10-28] MEDS: COD LIVER OIL/ZINC OXIDE OINT 113 GM TUBE TOP SCH ×2 (09:13→21:45)
[2020-10-28] MEDS: VITAMINS A AND D OINT TP SCH ×2 (09:13→21:45)
[2020-10-28] MEDS: ENOXAPARIN SODIUM 40 MG/0.4 ML DISP.SYRIN SQ SCH (09:13)
--- NOTE | 2020-10-28 11:56 | NUR ---
DELANEY called patient's daughter Janis [phone] and left her a voicemail message informing her that the next IDT meeting for the patient is scheduled for 11/02/2020 at 11am. DELANEY asked Janis to call this SW back and let her know if Janis would like to participate in the meeting by speaker phone. DELANEY also informed Janis in the same voicemail message that patient's annual admission paperwork needs to be signed, and asked Janis to let this DELANEY know how Janis would like to coordinate this process. DELANEY waiting to hear back from Janis, and will follow up with Janis if DELANEY does not receive a call back.
[2020-10-28 12:00] VITALS: BP 138/77
[2020-10-28 18:06] VITALS: BP 130/74
[2020-10-28 19:25] VITALS: BP 138/81
[2020-10-28] MEDS: ATORVASTATIN 40 MG TABLET GT SCH (21:45)
[2020-10-28] MEDS: THIAMINE HCL 100 MG TABLET GT SCH (21:45)
[2020-10-28] MEDS: MINERAL OIL/PETROLAT OPHT OINT 3.5 GM TUBE EACHEYE SCH (21:45)
[2020-10-28] MEDS: GLUCERNA 1.2 1000ML LIQUID GT PRN (22:33)
[2020-10-29] MEDS: BLOOD SUGAR DIAGNOSTIC 1 EACH STRIP VI SCH ×5 (00:50→23:23)
[2020-10-29] MEDS: INSULIN REGULAR, HUMAN 300 UNIT/3 ML VIAL SQ PRN ×5 (00:51→23:23)
[2020-10-29 07:35] VITALS: BP 140/81
[2020-10-29] MEDS: DOCUSATE SODIUM 100 MG/10 ML LIQUID UDC GT SCH ×2 (08:25→20:20)
[2020-10-29] MEDS: levETIRAcetam 500 MG/5 ML LIQUID UDC GT SCH ×2 (08:26→20:20)
[2020-10-29] MEDS: TERAZOSIN 1 MG CAPSULE GT SCH (08:26)
[2020-10-29] MEDS: PHENOBARBITAL 97.2 MG GT SCH (08:26)
[2020-10-29] MEDS: METOPROLOL TARTRATE 25 MG TABLET GT SCH ×2 (08:27→20:20)
[2020-10-29] MEDS: FAMOTIDINE 20 MG TABLET GT SCH ×2 (08:27→20:20)
[2020-10-29] MEDS: COD LIVER OIL/ZINC OXIDE OINT 113 GM TUBE TOP SCH ×2 (08:28→20:20)
[2020-10-29] MEDS: ENOXAPARIN SODIUM 40 MG/0.4 ML DISP.SYRIN SQ SCH (08:28)
[2020-10-29] MEDS: COD LIVER OIL/ZINC OXIDE OINT 113 GM TUBE TP SCH ×2 (08:28→20:20)
[2020-10-29] MEDS: VITAMINS A AND D OINT TP SCH ×2 (08:28→20:20)
[2020-10-29] MEDS: HYDROGEN PEROXIDE 3% 118 ML BOTTLE TP SCH ×2 (09:30→21:52)
[2020-10-29 19:57] VITALS: BP 147/84
[2020-10-29] MEDS: ATORVASTATIN 40 MG TABLET GT SCH (20:20)
[2020-10-29] MEDS: MINERAL OIL/PETROLAT OPHT OINT 3.5 GM TUBE EACHEYE SCH (20:20)
[2020-10-29] MEDS: THIAMINE HCL 100 MG TABLET GT SCH (20:20)
[2020-10-29] MEDS: GLUCERNA 1.2 1000ML LIQUID GT PRN (20:30)
--- NOTE | 2020-10-29 20:30 | NUR ---
Morris from Lab called re: Patient Covid-19 result was negative.
[2020-10-30] MEDS: BLOOD SUGAR DIAGNOSTIC 1 EACH STRIP VI SCH ×4 (05:46→23:30)
[2020-10-30] MEDS: INSULIN REGULAR, HUMAN 300 UNIT/3 ML VIAL SQ PRN ×4 (05:47→23:30)
[2020-10-30 07:58] VITALS: BP 152/80
--- NOTE | 2020-10-30 08:50 | NUR ---
SARBJIT WAS NOTIFIED WITH A MESSAGE THAT PT. WAS NEGATIVE FOR COVID 19 TEST FROM 10/27/20.
[2020-10-30] MEDS: PHENOBARBITAL 97.2 MG GT SCH (09:03)
[2020-10-30] MEDS: DOCUSATE SODIUM 100 MG/10 ML LIQUID UDC GT SCH ×2 (09:03→20:23)
[2020-10-30] MEDS: TERAZOSIN 1 MG CAPSULE GT SCH (09:04)
[2020-10-30] MEDS: levETIRAcetam 500 MG/5 ML LIQUID UDC GT SCH ×2 (09:05→20:23)
[2020-10-30] MEDS: COD LIVER OIL/ZINC OXIDE OINT 113 GM TUBE TP SCH ×2 (09:07→20:23)
[2020-10-30] MEDS: COD LIVER OIL/ZINC OXIDE OINT 113 GM TUBE TOP SCH ×2 (09:07→20:23)
[2020-10-30] MEDS: FAMOTIDINE 20 MG TABLET GT SCH ×2 (09:07→20:23)
[2020-10-30] MEDS: METOPROLOL TARTRATE 25 MG TABLET GT SCH ×2 (09:07→20:23)
[2020-10-30] MEDS: VITAMINS A AND D OINT TP SCH ×2 (09:08→20:23)
[2020-10-30] MEDS: ENOXAPARIN SODIUM 40 MG/0.4 ML DISP.SYRIN SQ SCH (09:10)
[2020-10-30] MEDS: HYDROGEN PEROXIDE 3% 118 ML BOTTLE TP SCH ×2 (09:20→21:41)
--- NOTE | 2020-10-30 09:30 | NUR ---
GASTRIC TUBE NOTED OUT WITH BALLOON INFLATED WITH ONLY 3ML OF FLUID(CAPACITY IS 5 TO 7 ML) AND PLACED BACK AND CHECKED BY [address] COLLINS AWARE AND WITH NEW ORDER CARRIED OUT FOR KUB WITH GASTROGRAFIN TO CHECK PLACEMENT AND IF IN PLACE TO CONTINUE TUBE FEEDING.
--- NOTE | 2020-10-30 11:55 | NUR ---
KUB SHOWING RIGHT PLACEMENT OF GT AND TUBE FEEDING STARTED ORDERED.
--- NOTE | 2020-10-30 15:17 | NUR ---
PT. WAS SEEN AND EXAMINED BY DR. PLATT AND WITH NNO.
[2020-10-30] MEDS: ATORVASTATIN 40 MG TABLET GT SCH (20:23)
[2020-10-30] MEDS: MINERAL OIL/PETROLAT OPHT OINT 3.5 GM TUBE EACHEYE SCH (20:23)
[2020-10-30] MEDS: THIAMINE HCL 100 MG TABLET GT SCH (20:23)
--- NOTE | 2020-10-30 22:11 | NUR ---
Patient is afebrile, gt is intact and patent, tolerating gt feeding well, no vomiting noted. On aspiration and seizure precaution. turned and repositioned, kept clean and comfortable, will continue monitor.
[2020-10-30 22:17] VITALS: BP 121/82
[2020-10-31] MEDS: BLOOD SUGAR DIAGNOSTIC 1 EACH STRIP VI SCH ×4 (05:27→23:12)
[2020-10-31] MEDS: INSULIN REGULAR, HUMAN 300 UNIT/3 ML VIAL SQ PRN ×4 (05:28→23:12)
[2020-10-31 07:42] VITALS: BP 138/87
[2020-10-31] MEDS ORDERED: DIATR MEGLU/DIATRIZOATE SODIUM 30 ML BOTTLE PO ONE (07:48)
[2020-10-31] MEDS: DOCUSATE SODIUM 100 MG/10 ML LIQUID UDC GT SCH ×2 (08:18→20:18)
[2020-10-31] MEDS: PHENOBARBITAL 97.2 MG GT SCH (08:18)
[2020-10-31] MEDS: TERAZOSIN 1 MG CAPSULE GT SCH (08:18)
[2020-10-31] MEDS: levETIRAcetam 500 MG/5 ML LIQUID UDC GT SCH ×2 (08:18→20:18)
[2020-10-31] MEDS: FAMOTIDINE 20 MG TABLET GT SCH ×2 (08:19→20:19)
[2020-10-31] MEDS: COD LIVER OIL/ZINC OXIDE OINT 113 GM TUBE TOP SCH ×2 (08:20→20:19)
[2020-10-31] MEDS: METOPROLOL TARTRATE 25 MG TABLET GT SCH ×2 (08:20→20:19)
[2020-10-31] MEDS: VITAMINS A AND D OINT TP SCH ×2 (08:20→20:19)
[2020-10-31] MEDS: COD LIVER OIL/ZINC OXIDE OINT 113 GM TUBE TP SCH ×2 (08:20→20:19)
[2020-10-31] MEDS: HYDROGEN PEROXIDE 3% 118 ML BOTTLE TP SCH ×2 (08:21→21:57)
[2020-10-31] MEDS: ENOXAPARIN SODIUM 40 MG/0.4 ML DISP.SYRIN SQ SCH (08:23)
[2020-10-31 19:57] VITALS: BP 136/74
[2020-10-31] MEDS: MINERAL OIL/PETROLAT OPHT OINT 3.5 GM TUBE EACHEYE SCH (20:18)
[2020-10-31] MEDS: ATORVASTATIN 40 MG TABLET GT SCH (20:18)
[2020-10-31] MEDS: THIAMINE HCL 100 MG TABLET GT SCH (20:19)
[2020-11-01] MEDS: GLUCERNA 1.2 1000ML LIQUID GT PRN ×2 (05:08→22:00)
[2020-11-01] MEDS: INSULIN REGULAR, HUMAN 300 UNIT/3 ML VIAL SQ PRN ×3 (05:24→17:44)
[2020-11-01] MEDS: BLOOD SUGAR DIAGNOSTIC 1 EACH STRIP VI SCH ×3 (05:24→17:41)
[2020-11-01 07:39] VITALS: BP 177/94
[2020-11-01] MEDS: DOCUSATE SODIUM 100 MG/10 ML LIQUID UDC GT SCH ×2 (08:52→21:54)
[2020-11-01] MEDS: PHENOBARBITAL 97.2 MG GT SCH (08:55)
[2020-11-01] MEDS: TERAZOSIN 1 MG CAPSULE GT SCH (08:55)
[2020-11-01] MEDS: METOPROLOL TARTRATE 25 MG TABLET GT SCH ×2 (08:56→21:56)
[2020-11-01] MEDS: FAMOTIDINE 20 MG TABLET GT SCH ×2 (08:56→21:56)
[2020-11-01] MEDS: levETIRAcetam 500 MG/5 ML LIQUID UDC GT SCH ×2 (08:56→21:54)
[2020-11-01] MEDS: COD LIVER OIL/ZINC OXIDE OINT 113 GM TUBE TP SCH ×2 (08:57→21:57)
[2020-11-01] MEDS: COD LIVER OIL/ZINC OXIDE OINT 113 GM TUBE TOP SCH ×2 (08:57→21:56)
[2020-11-01] MEDS: VITAMINS A AND D OINT TP SCH ×2 (08:57→21:57)
[2020-11-01] MEDS: ENOXAPARIN SODIUM 40 MG/0.4 ML DISP.SYRIN SQ SCH (08:57)
[2020-11-01] MEDS: HYDROGEN PEROXIDE 3% 118 ML BOTTLE TP SCH ×2 (09:22→21:56)
[2020-11-01 20:40] VITALS: BP 135/74
[2020-11-01] MEDS: ATORVASTATIN 40 MG TABLET GT SCH (21:00)
[2020-11-01] MEDS: MINERAL OIL/PETROLAT OPHT OINT 3.5 GM TUBE EACHEYE SCH (21:54)
[2020-11-01] MEDS: THIAMINE HCL 100 MG TABLET GT SCH (21:56)
[2020-11-01] MEDS: ACETAMINOPHEN 650 MG/20.3 ML LIQUID UDC GT PRN (22:00)
[2020-11-02] VITALS (7 sets, daily range): BP systolic 138–183; BP diastolic 76–90
[2020-11-02] MEDS: INSULIN REGULAR, HUMAN 300 UNIT/3 ML VIAL SQ PRN ×5 (00:23→23:05)
[2020-11-02] MEDS: BLOOD SUGAR DIAGNOSTIC 1 EACH STRIP VI SCH ×5 (05:48→23:04)
--- NOTE | 2020-11-02 07:33 | NUR ---
NEW ORDER CARRIED OUT FROM FABY Montoya FOR WOUND CARE CONSULT TO EVAL SACRAL WOUND WITH YELLOW SLOUGH.
[2020-11-02] MEDS: PHENOBARBITAL 97.2 MG GT SCH (08:33)
[2020-11-02] MEDS: TERAZOSIN 1 MG CAPSULE GT SCH (08:36)
[2020-11-02] MEDS: levETIRAcetam 500 MG/5 ML LIQUID UDC GT SCH ×2 (08:36→21:42)
[2020-11-02] MEDS: METOPROLOL TARTRATE 25 MG TABLET GT SCH ×2 (08:37→21:43)
[2020-11-02] MEDS: FAMOTIDINE 20 MG TABLET GT SCH ×2 (08:38→21:43)
[2020-11-02] MEDS: ENOXAPARIN SODIUM 40 MG/0.4 ML DISP.SYRIN SQ SCH (08:39)
[2020-11-02] MEDS: VITAMINS A AND D OINT TP SCH ×2 (08:40→21:43)
[2020-11-02] MEDS: COD LIVER OIL/ZINC OXIDE OINT 113 GM TUBE TOP SCH ×2 (08:40→21:43)
[2020-11-02] MEDS: DOCUSATE SODIUM 100 MG/10 ML LIQUID UDC GT SCH ×2 (09:00→21:41)
[2020-11-02] MEDS: HYDROGEN PEROXIDE 3% 118 ML BOTTLE TP SCH ×2 (09:00→21:00)
[2020-11-02] MEDS: COD LIVER OIL/ZINC OXIDE OINT 113 GM TUBE TP SCH (10:00)
--- NOTE | 2020-11-02 16:43 | NUR ---
INTERDISCIPLINARY PLAN OF CARE CONFERENCE was held today. Patient's family was not available to participate in the meeting today. Dr. Peralta and the Interdisciplinary Team reviewed the current plan of care in detail. RN reported on patient's medical condition, recent BS findings, and wound treatment plan. See RN IDT conference notes. No major changes in medical condition were reported by nursing or by the other disciplines. See all other disciplines IDT notes and physician's progress notes for additional details.
[2020-11-02] MEDS: GLUCERNA 1.2 1000ML LIQUID GT PRN (17:07)
[2020-11-02] MEDS: MINERAL OIL/PETROLAT OPHT OINT 3.5 GM TUBE EACHEYE SCH (21:41)
[2020-11-02] MEDS: ATORVASTATIN 40 MG TABLET GT SCH (21:42)
[2020-11-02] MEDS: THIAMINE HCL 100 MG TABLET GT SCH (21:43)
[2020-11-03] VITALS: BP 149/85
[2020-11-03] MEDS: BLOOD SUGAR DIAGNOSTIC 1 EACH STRIP VI SCH ×4 (05:49→23:29)
[2020-11-03] MEDS: INSULIN REGULAR, HUMAN 300 UNIT/3 ML VIAL SQ PRN ×4 (05:51→23:30)
[2020-11-03 05:55] VITALS: BP 150/86
[2020-11-03 07:37] VITALS: BP 154/80
[2020-11-03] MEDS: PHENOBARBITAL 97.2 MG GT SCH (08:31)
[2020-11-03] MEDS: METOPROLOL TARTRATE 25 MG TABLET GT SCH ×2 (08:31→21:00)
[2020-11-03] MEDS: DOCUSATE SODIUM 100 MG/10 ML LIQUID UDC GT SCH ×2 (08:37→21:00)
[2020-11-03] MEDS: levETIRAcetam 500 MG/5 ML LIQUID UDC GT SCH ×2 (08:38→21:00)
[2020-11-03] MEDS: TERAZOSIN 1 MG CAPSULE GT SCH (08:38)
[2020-11-03] MEDS: FAMOTIDINE 20 MG TABLET GT SCH ×2 (08:40→21:00)
[2020-11-03] MEDS: COD LIVER OIL/ZINC OXIDE OINT 113 GM TUBE TOP SCH ×2 (08:40→21:00)
[2020-11-03] MEDS: VITAMINS A AND D OINT TP SCH ×2 (08:40→21:00)
[2020-11-03] MEDS: ENOXAPARIN SODIUM 40 MG/0.4 ML DISP.SYRIN SQ SCH (08:44)
[2020-11-03] MEDS: HYDROGEN PEROXIDE 3% 118 ML BOTTLE TP SCH ×2 (09:09→21:50)
[2020-11-03] MEDS: GLUCERNA 1.2 1000ML LIQUID GT PRN (11:19)
--- NOTE | 2020-11-03 11:34 | NUR ---
WOUND CARE CONSULT: PT SEEN FOR RE-EVALUATION OF SACRAL DEEP TISSUE INJURY IN EVOLUTION, PRESENT ON ADMISSION. SACRAL WOUND MEASURES 2CM X 2CM X 0.1CM AND IS PINK AND DARK RED IN COLOR, SCANT SEROUS DRAINAGE AND NO ODOR. RECOMMEND CONTINUE PRESENT TREATMENT (OIL EMULSION DRESSING AND COVER WITH FOAM DRESSING) AND KEEP SKIN CLEAN AND DRY. DISCUSSED WITH NURSING STAFF. MD IN AGREEMENT WITH PLAN OF CARE.
[2020-11-03 12:00] VITALS: BP 138/85
[2020-11-03 18:00] VITALS: BP 148/85
--- NOTE | 2020-11-03 19:00 | NUR ---
Covid test done today,spoke to pt's daughter ,she request to call then only for results.
[2020-11-03 20:24] VITALS: BP 136/80
[2020-11-03] MEDS: ATORVASTATIN 40 MG TABLET GT SCH (21:00)
[2020-11-03] MEDS: THIAMINE HCL 100 MG TABLET GT SCH (21:00)
[2020-11-03] MEDS: MINERAL OIL/PETROLAT OPHT OINT 3.5 GM TUBE EACHEYE SCH (21:00)
[2020-11-04] VITALS: BP 145/82
[2020-11-04] MEDS: GLUCERNA 1.2 1000ML LIQUID GT PRN ×2 (02:30→18:04)
[2020-11-04] MEDS: BLOOD SUGAR DIAGNOSTIC 1 EACH STRIP VI SCH ×3 (05:24→17:20)
[2020-11-04] MEDS: INSULIN REGULAR, HUMAN 300 UNIT/3 ML VIAL SQ PRN ×2 (05:25→12:32)
[2020-11-04 05:37] VITALS: BP 142/86
[2020-11-04 07:33] VITALS: BP 160/89
[2020-11-04] MEDS: DOCUSATE SODIUM 100 MG/10 ML LIQUID UDC GT SCH ×2 (08:17→21:23)
[2020-11-04] MEDS: PHENOBARBITAL 97.2 MG GT SCH (08:17)
[2020-11-04] MEDS: TERAZOSIN 1 MG CAPSULE GT SCH (08:18)
[2020-11-04] MEDS: levETIRAcetam 500 MG/5 ML LIQUID UDC GT SCH ×2 (08:18→21:23)
[2020-11-04] MEDS: FAMOTIDINE 20 MG TABLET GT SCH ×2 (08:20→21:24)
[2020-11-04] MEDS: VITAMINS A AND D OINT TP SCH ×2 (08:20→21:25)
[2020-11-04] MEDS: COD LIVER OIL/ZINC OXIDE OINT 113 GM TUBE TOP SCH ×2 (08:20→21:25)
[2020-11-04] MEDS: METOPROLOL TARTRATE 25 MG TABLET GT SCH ×2 (08:20→21:24)
[2020-11-04] MEDS: ENOXAPARIN SODIUM 40 MG/0.4 ML DISP.SYRIN SQ SCH (08:21)
[2020-11-04] MEDS: HYDROGEN PEROXIDE 3% 118 ML BOTTLE TP SCH ×2 (09:00→21:45)
[2020-11-04 18:00] VITALS: BP 154/81
[2020-11-04 20:00] VITALS: BP 151/83
[2020-11-04] MEDS: MINERAL OIL/PETROLAT OPHT OINT 3.5 GM TUBE EACHEYE SCH (21:23)
[2020-11-04] MEDS: THIAMINE HCL 100 MG TABLET GT SCH (21:24)
[2020-11-04] MEDS: ATORVASTATIN 40 MG TABLET GT SCH (21:24)
[2020-11-05] VITALS: BP 149/82
[2020-11-05] MEDS: BLOOD SUGAR DIAGNOSTIC 1 EACH STRIP VI SCH ×4 (00:17→17:54)
[2020-11-05] MEDS: INSULIN REGULAR, HUMAN 300 UNIT/3 ML VIAL SQ PRN ×3 (00:22→17:55)
[2020-11-05 06:17] VITALS: BP 146/85
[2020-11-05 07:35] VITALS: BP 153/87
[2020-11-05] MEDS: PHENOBARBITAL 97.2 MG GT SCH (08:27)
[2020-11-05] MEDS: DOCUSATE SODIUM 100 MG/10 ML LIQUID UDC GT SCH ×2 (08:27→21:16)
[2020-11-05] MEDS: FAMOTIDINE 20 MG TABLET GT SCH ×2 (08:29→21:16)
[2020-11-05] MEDS: levETIRAcetam 500 MG/5 ML LIQUID UDC GT SCH ×2 (08:29→21:16)
[2020-11-05] MEDS: TERAZOSIN 1 MG CAPSULE GT SCH (08:29)
[2020-11-05] MEDS: METOPROLOL TARTRATE 25 MG TABLET GT SCH ×2 (08:29→21:16)
[2020-11-05] MEDS: ENOXAPARIN SODIUM 40 MG/0.4 ML DISP.SYRIN SQ SCH (08:30)
[2020-11-05] MEDS: COD LIVER OIL/ZINC OXIDE OINT 113 GM TUBE TOP SCH ×2 (08:30→21:16)
[2020-11-05] MEDS: VITAMINS A AND D OINT TP SCH ×2 (08:30→21:16)
[2020-11-05] MEDS: HYDROGEN PEROXIDE 3% 118 ML BOTTLE TP SCH ×2 (09:05→21:00)
[2020-11-05 20:00] VITALS: BP 148/76
[2020-11-05] MEDS: THIAMINE HCL 100 MG TABLET GT SCH (21:16)
[2020-11-05] MEDS: ATORVASTATIN 40 MG TABLET GT SCH (21:16)
[2020-11-05] MEDS: MINERAL OIL/PETROLAT OPHT OINT 3.5 GM TUBE EACHEYE SCH (21:16)
[2020-11-06] MEDS: BLOOD SUGAR DIAGNOSTIC 1 EACH STRIP VI SCH ×5 (00:57→23:26)
[2020-11-06] MEDS: INSULIN REGULAR, HUMAN 300 UNIT/3 ML VIAL SQ PRN ×5 (01:19→23:26)
[2020-11-06 07:48] VITALS: BP 166/75
[2020-11-06] MEDS: DOCUSATE SODIUM 100 MG/10 ML LIQUID UDC GT SCH ×2 (08:46→21:24)
[2020-11-06] MEDS: TERAZOSIN 1 MG CAPSULE GT SCH (08:46)
[2020-11-06] MEDS: levETIRAcetam 500 MG/5 ML LIQUID UDC GT SCH ×2 (08:46→21:24)
[2020-11-06] MEDS: PHENOBARBITAL 97.2 MG GT SCH (08:46)
[2020-11-06] MEDS: METOPROLOL TARTRATE 25 MG TABLET GT SCH ×2 (08:47→21:24)
[2020-11-06] MEDS: FAMOTIDINE 20 MG TABLET GT SCH ×2 (08:47→21:24)
[2020-11-06] MEDS: ENOXAPARIN SODIUM 40 MG/0.4 ML DISP.SYRIN SQ SCH (08:48)
[2020-11-06] MEDS: ACETAMINOPHEN 650 MG/20.3 ML LIQUID UDC GT PRN (08:48)
[2020-11-06] MEDS: COD LIVER OIL/ZINC OXIDE OINT 113 GM TUBE TOP SCH ×2 (08:48→21:24)
[2020-11-06] MEDS: VITAMINS A AND D OINT TP SCH ×2 (08:48→21:24)
[2020-11-06] MEDS: HYDROGEN PEROXIDE 3% 118 ML BOTTLE TP SCH ×2 (09:00→21:00)
[2020-11-06] MEDS: GLUCERNA 1.2 1000ML LIQUID GT PRN (10:00)
[2020-11-06] MEDS: MINERAL OIL/PETROLAT OPHT OINT 3.5 GM TUBE EACHEYE SCH (21:24)
[2020-11-06] MEDS: THIAMINE HCL 100 MG TABLET GT SCH (21:24)
[2020-11-06] MEDS: ATORVASTATIN 40 MG TABLET GT SCH (21:24)
[2020-11-06 22:14] VITALS: BP 142/82
[2020-11-07] MEDS: GLUCERNA 1.2 1000ML LIQUID GT PRN (01:18)
[2020-11-07] MEDS: INSULIN REGULAR, HUMAN 300 UNIT/3 ML VIAL SQ PRN ×3 (05:28→17:12)
[2020-11-07] MEDS: BLOOD SUGAR DIAGNOSTIC 1 EACH STRIP VI SCH ×3 (05:28→17:11)
[2020-11-07 07:50] VITALS: BP 142/86
[2020-11-07] MEDS: HYDROGEN PEROXIDE 3% 118 ML BOTTLE TP SCH ×2 (08:50→21:41)
[2020-11-07] MEDS: DOCUSATE SODIUM 100 MG/10 ML LIQUID UDC GT SCH ×2 (09:12→21:17)
[2020-11-07] MEDS: PHENOBARBITAL 97.2 MG GT SCH (09:12)
[2020-11-07] MEDS: levETIRAcetam 500 MG/5 ML LIQUID UDC GT SCH ×2 (09:13→21:17)
[2020-11-07] MEDS: TERAZOSIN 1 MG CAPSULE GT SCH (09:13)
[2020-11-07] MEDS: ENOXAPARIN SODIUM 40 MG/0.4 ML DISP.SYRIN SQ SCH (09:14)
[2020-11-07] MEDS: VITAMINS A AND D OINT TP SCH ×2 (09:14→21:18)
[2020-11-07] MEDS: FAMOTIDINE 20 MG TABLET GT SCH ×2 (09:14→21:18)
[2020-11-07] MEDS: COD LIVER OIL/ZINC OXIDE OINT 113 GM TUBE TOP SCH ×2 (09:14→21:18)
[2020-11-07] MEDS: METOPROLOL TARTRATE 25 MG TABLET GT SCH ×2 (09:14→21:16)
[2020-11-07] MEDS: MINERAL OIL/PETROLAT OPHT OINT 3.5 GM TUBE EACHEYE SCH (21:17)
[2020-11-07] MEDS: ATORVASTATIN 40 MG TABLET GT SCH (21:18)
[2020-11-07] MEDS: THIAMINE HCL 100 MG TABLET GT SCH (21:18)
[2020-11-07 22:26] VITALS: BP 146/80
[2020-11-08] MEDS: BLOOD SUGAR DIAGNOSTIC 1 EACH STRIP VI SCH ×4 (00:14→17:22)
[2020-11-08] MEDS: INSULIN REGULAR, HUMAN 300 UNIT/3 ML VIAL SQ PRN ×4 (00:56→17:23)
[2020-11-08] MEDS: HYDROGEN PEROXIDE 3% 118 ML BOTTLE TP SCH ×2 (09:08→21:00)
[2020-11-08] MEDS: DOCUSATE SODIUM 100 MG/10 ML LIQUID UDC GT SCH ×2 (09:09→20:01)
[2020-11-08] MEDS: PHENOBARBITAL 97.2 MG GT SCH (09:09)
[2020-11-08] MEDS: TERAZOSIN 1 MG CAPSULE GT SCH (09:10)
[2020-11-08] MEDS: FAMOTIDINE 20 MG TABLET GT SCH ×2 (09:10→20:02)
[2020-11-08] MEDS: levETIRAcetam 500 MG/5 ML LIQUID UDC GT SCH ×2 (09:10→20:02)
[2020-11-08] MEDS: METOPROLOL TARTRATE 25 MG TABLET GT SCH ×2 (09:10→20:02)
[2020-11-08] MEDS: COD LIVER OIL/ZINC OXIDE OINT 113 GM TUBE TOP SCH ×2 (09:11→20:02)
[2020-11-08] MEDS: VITAMINS A AND D OINT TP SCH ×2 (09:11→20:02)
[2020-11-08] MEDS: ENOXAPARIN SODIUM 40 MG/0.4 ML DISP.SYRIN SQ SCH (09:27)
[2020-11-08 12:00] VITALS: BP 148/71
[2020-11-08] MEDS: GLUCERNA 1.2 1000ML LIQUID GT PRN (12:42)
--- NOTE | 2020-11-08 13:21 | NUR ---
SEEN AND EXAMINED BY FABY Montoya AND WITH NAMO.
[2020-11-08 18:07] VITALS: BP 145/72
[2020-11-08] MEDS: MINERAL OIL/PETROLAT OPHT OINT 3.5 GM TUBE EACHEYE SCH (20:01)
[2020-11-08] MEDS: THIAMINE HCL 100 MG TABLET GT SCH (20:02)
[2020-11-08] MEDS: ATORVASTATIN 40 MG TABLET GT SCH (20:02)
[2020-11-08 20:03] VITALS: BP 141/82
[2020-11-09] MEDS: INSULIN REGULAR, HUMAN 300 UNIT/3 ML VIAL SQ PRN ×4 (00:40→17:25)
[2020-11-09] MEDS: BLOOD SUGAR DIAGNOSTIC 1 EACH STRIP VI SCH ×5 (00:44→23:25)
[2020-11-09] MEDS: GLUCERNA 1.2 1000ML LIQUID GT PRN (03:05)
[2020-11-09 07:17] VITALS: BP 146/77
[2020-11-09] MEDS: HYDROGEN PEROXIDE 3% 118 ML BOTTLE TP SCH ×2 (09:05→21:50)
[2020-11-09] MEDS: DOCUSATE SODIUM 100 MG/10 ML LIQUID UDC GT SCH ×2 (09:27→21:17)
[2020-11-09] MEDS: levETIRAcetam 500 MG/5 ML LIQUID UDC GT SCH ×2 (09:27→21:17)
[2020-11-09] MEDS: TERAZOSIN 1 MG CAPSULE GT SCH (09:27)
[2020-11-09] MEDS: METOPROLOL TARTRATE 25 MG TABLET GT SCH ×2 (09:27→21:18)
[2020-11-09] MEDS: PHENOBARBITAL 97.2 MG GT SCH (09:27)
[2020-11-09] MEDS: FAMOTIDINE 20 MG TABLET GT SCH ×2 (09:28→21:18)
[2020-11-09] MEDS: ENOXAPARIN SODIUM 40 MG/0.4 ML DISP.SYRIN SQ SCH (09:28)
[2020-11-09] MEDS: COD LIVER OIL/ZINC OXIDE OINT 113 GM TUBE TOP SCH ×2 (09:28→21:18)
[2020-11-09] MEDS: VITAMINS A AND D OINT TP SCH ×2 (09:28→21:18)
--- NOTE | 2020-11-09 13:50 | NUR ---
DELANEY called patient's daughter Janis [phone]. Janis was not available, and this SW left a voicemail message letting Janis know that the next IDT meeting is scheduled for 11/16/2020 at 11am. DELANEY included in the voicemail a request for Janis to call this SW back and let this SW know if Janis would like to participate in the meeting by speaker phone. DELANEY also informed Janis in this same voicemail that patient's annual admission paperwork needed to be reviewed and signed, and asked Janis to call this SW back to coordinate a way to get the paperwork to Janis. EDLANEY called patient's father Arden [phone] and informed him that the next IDT meeting for the patient is scheduled for 11/16/2020 at 11am. DELANEY asked Arden if he would like to participate in the meeting by speaker phone, and Arden expressed agreement. DELANEY asked Arden to be available on 11/16 between 11am-12pm in order to receive the IDT team's call, and Arden expressed agreement and understanding.
--- NOTE | 2020-11-09 14:19 | NUR ---
DELANEY received a call back from patient's daughter Janis [phone] in response to the voicemail message this SW had left Janis earlier today. Janis stated that she would like to be on speaker phone during the IDT meeting on 11/16, and DELANEY asked for Janis to be available between 11am-12pm to receive the team's calls. Janis expressed agreement. Janis also stated that she can stop by the hospital lobby tomorrow afternoon, 11/10, to review/complete and sign the annual admission paperwork for the patient. DELANEY expressed agreement. DELANEY to prepare paperwork for Janis for tomorrow.
[2020-11-09 20:00] VITALS: BP 139/80
[2020-11-09] MEDS: ATORVASTATIN 40 MG TABLET GT SCH (21:17)
[2020-11-09] MEDS: MINERAL OIL/PETROLAT OPHT OINT 3.5 GM TUBE EACHEYE SCH (21:17)
[2020-11-09] MEDS: THIAMINE HCL 100 MG TABLET GT SCH (21:18)
[2020-11-10 00:10] VITALS: BP 161/82
[2020-11-10] MEDS: hydrALAZINE HCL 25 MG TABLET GT PRN (00:10)
[2020-11-10] MEDS: INSULIN REGULAR, HUMAN 300 UNIT/3 ML VIAL SQ PRN ×5 (00:37→23:08)
[2020-11-10 01:10] VITALS: BP 141/78
[2020-11-10] MEDS: BLOOD SUGAR DIAGNOSTIC 1 EACH STRIP VI SCH ×4 (05:16→23:07)
[2020-11-10 07:08] LABS: HEMATOCRIT 37.6 % (36.7-47.1); MEAN CORPUSCULAR HEMOGLOBIN 29.9 uug (23.8-33.4); MEAN CORPUSCULAR VOLUME 88.3 fL (73.0-96.2); PLATELET COUNT (AUTO) 249 K/uL (152-348)
[2020-11-10 07:19] VITALS: BP 158/76
[2020-11-10 07:26] LABS: ALANINE AMINOTRANSFERASE 31 U/L (16-63); ALKALINE PHOSPHATASE 100 U/L (50-136); ASPARTATE AMINOTRANSFERASE 18 U/L (15-37); BILIRUBIN,TOTAL 0.3 mg/dL (0.2-1.0); CARBON DIOXIDE 30 mmol/L (21-32); CHLORIDE 96 mmol/L (98-107); CREATININE 0.5 mg/dL (0.6-1.3); GLUCOSE 164 mg/dL (74-106); POTASSIUM 4.4 mmol/L (3.5-5.1); TOTAL PROTEIN, SERUM 7.1 g/dL (6.4-8.2); UREA NITROGEN, BLOOD 17 mg/dL (7-18)
[2020-11-10] MEDS: DOCUSATE SODIUM 100 MG/10 ML LIQUID UDC GT SCH ×2 (08:12→21:02)
[2020-11-10] MEDS: PHENOBARBITAL 97.2 MG GT SCH (08:12)
[2020-11-10] MEDS: ENOXAPARIN SODIUM 40 MG/0.4 ML DISP.SYRIN SQ SCH (08:14)
[2020-11-10] MEDS: COD LIVER OIL/ZINC OXIDE OINT 113 GM TUBE TOP SCH ×2 (08:14→21:05)
[2020-11-10] MEDS: METOPROLOL TARTRATE 25 MG TABLET GT SCH ×2 (08:14→21:04)
[2020-11-10] MEDS: levETIRAcetam 500 MG/5 ML LIQUID UDC GT SCH ×2 (08:14→21:03)
[2020-11-10] MEDS: TERAZOSIN 1 MG CAPSULE GT SCH (08:14)
[2020-11-10] MEDS: FAMOTIDINE 20 MG TABLET GT SCH ×2 (08:14→21:04)
[2020-11-10] MEDS: VITAMINS A AND D OINT TP SCH ×2 (08:14→21:05)
--- NOTE | 2020-11-10 12:30 | NUR ---
Provided video chat for pt and his daughter with no problem, pt. remains comfortable, all needs attended and anticipated.
--- NOTE | 2020-11-10 16:17 | NUR ---
This SW met with patient's daughter Janis today, and reviewed the annual admission paperwork. Janis signed all the annual admission paperwork, which includes Conditions of Admission, Patient Rights Acknowledgement, Documentation of Preferred Intensity of Care, Voluntary Prior Express Consent Form, Race and Ethnicity Patient Self-Identification, and the [facility] Agreement. For previous assessment/quarterly information, see patient's previous chart #[id number].
--- NOTE | 2020-11-10 19:44 | NUR ---
Covid 19 test done today.Family request to call for results only.
[2020-11-10 19:53] VITALS: BP 134/82
[2020-11-10] MEDS: HYDROGEN PEROXIDE 3% 118 ML BOTTLE TP SCH (21:00)
[2020-11-10] MEDS: MINERAL OIL/PETROLAT OPHT OINT 3.5 GM TUBE EACHEYE SCH (21:02)
[2020-11-10] MEDS: ATORVASTATIN 40 MG TABLET GT SCH (21:04)
[2020-11-10] MEDS: THIAMINE HCL 100 MG TABLET GT SCH (21:07)
[2020-11-11] MEDS: INSULIN REGULAR, HUMAN 300 UNIT/3 ML VIAL SQ PRN ×4 (06:40→23:09)
[2020-11-11] MEDS: BLOOD SUGAR DIAGNOSTIC 1 EACH STRIP VI SCH ×4 (06:40→23:08)
[2020-11-11 07:53] VITALS: BP 168/82
[2020-11-11] MEDS: HYDROGEN PEROXIDE 3% 118 ML BOTTLE TP SCH ×2 (09:00→21:00)
[2020-11-11] MEDS: TERAZOSIN 1 MG CAPSULE GT SCH (09:47)
[2020-11-11] MEDS: levETIRAcetam 500 MG/5 ML LIQUID UDC GT SCH ×2 (09:47→21:37)
[2020-11-11] MEDS: PHENOBARBITAL 97.2 MG GT SCH (09:47)
[2020-11-11] MEDS: FAMOTIDINE 20 MG TABLET GT SCH ×2 (09:47→21:38)
[2020-11-11] MEDS: METOPROLOL TARTRATE 25 MG TABLET GT SCH ×2 (09:47→21:38)
[2020-11-11] MEDS: DOCUSATE SODIUM 100 MG/10 ML LIQUID UDC GT SCH ×2 (09:47→21:37)
[2020-11-11] MEDS: ENOXAPARIN SODIUM 40 MG/0.4 ML DISP.SYRIN SQ SCH (09:48)
[2020-11-11] MEDS: VITAMINS A AND D OINT TP SCH ×2 (09:48→21:38)
[2020-11-11] MEDS: COD LIVER OIL/ZINC OXIDE OINT 113 GM TUBE TOP SCH ×2 (09:48→21:38)
--- NOTE | 2020-11-11 12:00 | NUR ---
SEEN BY FABY Montoya AND WITH NNO.
[2020-11-11 19:56] VITALS: BP 137/79
[2020-11-11] MEDS: MINERAL OIL/PETROLAT OPHT OINT 3.5 GM TUBE EACHEYE SCH (21:37)
[2020-11-11] MEDS: ATORVASTATIN 40 MG TABLET GT SCH (21:37)
[2020-11-11] MEDS: THIAMINE HCL 100 MG TABLET GT SCH (21:38)
[2020-11-12] MEDS: BLOOD SUGAR DIAGNOSTIC 1 EACH STRIP VI SCH ×3 (05:20→18:09)
[2020-11-12] MEDS: INSULIN REGULAR, HUMAN 300 UNIT/3 ML VIAL SQ PRN ×3 (05:22→18:10)
[2020-11-12 07:43] VITALS: BP 151/89
[2020-11-12] MEDS: PHENOBARBITAL 97.2 MG GT SCH (08:43)
[2020-11-12] MEDS: DOCUSATE SODIUM 100 MG/10 ML LIQUID UDC GT SCH ×2 (08:43→20:45)
[2020-11-12] MEDS: levETIRAcetam 500 MG/5 ML LIQUID UDC GT SCH ×2 (08:44→20:45)
[2020-11-12] MEDS: TERAZOSIN 1 MG CAPSULE GT SCH (08:44)
[2020-11-12] MEDS: FAMOTIDINE 20 MG TABLET GT SCH ×2 (08:45→20:45)
[2020-11-12] MEDS: COD LIVER OIL/ZINC OXIDE OINT 113 GM TUBE TOP SCH ×2 (08:45→20:46)
[2020-11-12] MEDS: METOPROLOL TARTRATE 25 MG TABLET GT SCH ×2 (08:45→20:45)
[2020-11-12] MEDS: ENOXAPARIN SODIUM 40 MG/0.4 ML DISP.SYRIN SQ SCH (08:47)
[2020-11-12] MEDS: VITAMINS A AND D OINT TP SCH ×2 (09:00→20:46)
[2020-11-12] MEDS: HYDROGEN PEROXIDE 3% 118 ML BOTTLE TP SCH ×2 (09:20→21:59)
[2020-11-12] MEDS: GLUCERNA 1.2 1000ML LIQUID GT PRN (09:46)
[2020-11-12 19:43] VITALS: BP 137/78
[2020-11-12] MEDS: ATORVASTATIN 40 MG TABLET GT SCH (20:45)
[2020-11-12] MEDS: MINERAL OIL/PETROLAT OPHT OINT 3.5 GM TUBE EACHEYE SCH (20:45)
[2020-11-12] MEDS: THIAMINE HCL 100 MG TABLET GT SCH (20:45)
[2020-11-13] MEDS: BLOOD SUGAR DIAGNOSTIC 1 EACH STRIP VI SCH ×4 (00:45→17:04)
[2020-11-13] MEDS: INSULIN REGULAR, HUMAN 300 UNIT/3 ML VIAL SQ PRN ×4 (00:49→17:05)
[2020-11-13] MEDS: GLUCERNA 1.2 1000ML LIQUID GT PRN ×2 (01:14→17:05)
[2020-11-13 07:46] VITALS: BP 136/82
[2020-11-13] MEDS: DOCUSATE SODIUM 100 MG/10 ML LIQUID UDC GT SCH ×2 (08:35→20:10)
[2020-11-13] MEDS: PHENOBARBITAL 97.2 MG GT SCH (08:35)
[2020-11-13] MEDS: levETIRAcetam 500 MG/5 ML LIQUID UDC GT SCH ×2 (08:36→20:10)
[2020-11-13] MEDS: METOPROLOL TARTRATE 25 MG TABLET GT SCH ×2 (08:36→20:10)
[2020-11-13] MEDS: TERAZOSIN 1 MG CAPSULE GT SCH (08:36)
[2020-11-13] MEDS: FAMOTIDINE 20 MG TABLET GT SCH ×2 (08:37→20:10)
[2020-11-13] MEDS: ENOXAPARIN SODIUM 40 MG/0.4 ML DISP.SYRIN SQ SCH (08:38)
[2020-11-13] MEDS: COD LIVER OIL/ZINC OXIDE OINT 113 GM TUBE TOP SCH ×2 (08:38→20:10)
[2020-11-13] MEDS: VITAMINS A AND D OINT TP SCH ×2 (08:38→20:10)
[2020-11-13 19:56] VITALS: BP 148/79
[2020-11-13] MEDS: THIAMINE HCL 100 MG TABLET GT SCH (20:10)
[2020-11-13] MEDS: ATORVASTATIN 40 MG TABLET GT SCH (20:10)
[2020-11-13] MEDS: MINERAL OIL/PETROLAT OPHT OINT 3.5 GM TUBE EACHEYE SCH (20:10)
[2020-11-13] MEDS: HYDROGEN PEROXIDE 3% 118 ML BOTTLE TP SCH (21:00)
[2020-11-14] MEDS: BLOOD SUGAR DIAGNOSTIC 1 EACH STRIP VI SCH ×4 (00:24→18:09)
[2020-11-14] MEDS: INSULIN REGULAR, HUMAN 300 UNIT/3 ML VIAL SQ PRN ×4 (00:27→18:10)
[2020-11-14 07:41] VITALS: BP 156/86
[2020-11-14] MEDS: METOPROLOL TARTRATE 25 MG TABLET GT SCH ×2 (09:40→21:31)
[2020-11-14] MEDS: COD LIVER OIL/ZINC OXIDE OINT 113 GM TUBE TOP SCH ×2 (09:40→21:31)
[2020-11-14] MEDS: DOCUSATE SODIUM 100 MG/10 ML LIQUID UDC GT SCH ×2 (09:40→21:31)
[2020-11-14] MEDS: levETIRAcetam 500 MG/5 ML LIQUID UDC GT SCH ×2 (09:40→21:31)
[2020-11-14] MEDS: PHENOBARBITAL 97.2 MG GT SCH (09:40)
[2020-11-14] MEDS: TERAZOSIN 1 MG CAPSULE GT SCH (09:40)
[2020-11-14] MEDS: FAMOTIDINE 20 MG TABLET GT SCH ×2 (09:40→21:31)
[2020-11-14] MEDS: ENOXAPARIN SODIUM 40 MG/0.4 ML DISP.SYRIN SQ SCH (09:41)
[2020-11-14] MEDS: VITAMINS A AND D OINT TP SCH ×2 (09:41→21:32)
[2020-11-14] MEDS: HYDROGEN PEROXIDE 3% 118 ML BOTTLE TP SCH ×2 (09:41→21:00)
[2020-11-14] MEDS: GLUCERNA 1.2 1000ML LIQUID GT PRN (13:05)
--- NOTE | 2020-11-14 14:50 | NUR ---
NEW ORDER WAS CARRIED OUT FOR CONDOM CATHETER FROM DR. ASHTON FOR WOUND MANAGEMENT.
[2020-11-14 20:14] VITALS: BP 145/83
[2020-11-14] MEDS: THIAMINE HCL 100 MG TABLET GT SCH (21:31)
[2020-11-14] MEDS: ATORVASTATIN 40 MG TABLET GT SCH (21:31)
[2020-11-14] MEDS: MINERAL OIL/PETROLAT OPHT OINT 3.5 GM TUBE EACHEYE SCH (21:31)
[2020-11-15] MEDS: BLOOD SUGAR DIAGNOSTIC 1 EACH STRIP VI SCH ×4 (00:43→17:41)
[2020-11-15] MEDS: INSULIN REGULAR, HUMAN 300 UNIT/3 ML VIAL SQ PRN ×4 (01:06→17:42)
[2020-11-15] MEDS: GLUCERNA 1.2 1000ML LIQUID GT PRN (05:43)
[2020-11-15 07:28] VITALS: BP 172/79
[2020-11-15] MEDS: FAMOTIDINE 20 MG TABLET GT SCH ×2 (09:00→21:51)
[2020-11-15] MEDS: ENOXAPARIN SODIUM 40 MG/0.4 ML DISP.SYRIN SQ SCH (09:00)
[2020-11-15] MEDS: levETIRAcetam 500 MG/5 ML LIQUID UDC GT SCH ×2 (09:00→21:51)
[2020-11-15] MEDS: TERAZOSIN 1 MG CAPSULE GT SCH (09:00)
[2020-11-15] MEDS: COD LIVER OIL/ZINC OXIDE OINT 113 GM TUBE TOP SCH ×2 (09:00→21:51)
[2020-11-15] MEDS: DOCUSATE SODIUM 100 MG/10 ML LIQUID UDC GT SCH ×2 (09:00→21:51)
[2020-11-15] MEDS: PHENOBARBITAL 97.2 MG GT SCH (09:00)
[2020-11-15] MEDS: VITAMINS A AND D OINT TP SCH ×2 (09:00→21:52)
[2020-11-15] MEDS: METOPROLOL TARTRATE 25 MG TABLET GT SCH ×2 (09:00→21:51)
[2020-11-15] MEDS: HYDROGEN PEROXIDE 3% 118 ML BOTTLE TP SCH ×2 (09:19→21:51)
[2020-11-15 20:07] VITALS: BP 152/90
[2020-11-15] MEDS: THIAMINE HCL 100 MG TABLET GT SCH (21:51)
[2020-11-15] MEDS: MINERAL OIL/PETROLAT OPHT OINT 3.5 GM TUBE EACHEYE SCH (21:51)
[2020-11-15] MEDS: ATORVASTATIN 40 MG TABLET GT SCH (21:51)
[2020-11-16] VITALS: BP 140/82
[2020-11-16] MEDS: GLUCERNA 1.2 1000ML LIQUID GT PRN ×2 (01:37→17:42)
[2020-11-16] MEDS: BLOOD SUGAR DIAGNOSTIC 1 EACH STRIP VI SCH ×5 (05:24→23:24)
[2020-11-16] MEDS: INSULIN REGULAR, HUMAN 300 UNIT/3 ML VIAL SQ PRN ×5 (06:20→23:25)
[2020-11-16 07:22] VITALS: BP 156/90
--- NOTE | 2020-11-16 08:00 | NUR ---
GT NOTED OUT WITH RUPTURED BALLOON AND UNABLE TO PLACE BACK SAME SIZE FR #12 AND WITH NEW ORDER NOW FROM DR. RINCON FOR PLACEMENT OF GT FR. # 16 AND KUB PLACEMENT WITH GASTROGRAFIN AND ORDER CARRIED OUT AND GT #[address] CHECKED WITH 2 NURSES .OBSERVED TOO GASTRIC CONTENT DRAINING TOO FROM GT.
--- NOTE | 2020-11-16 08:36 | NUR ---
Found Gt out ,reinserted a new Gt #16.check for placement ,gastric residual obtained,Kub with gastrographin ordered.
[2020-11-16] MEDS ORDERED: DIATR MEGLU/DIATRIZOATE SODIUM 30 ML BOTTLE PO ONE (08:59)
[2020-11-16] MEDS: METOPROLOL TARTRATE 25 MG TABLET GT SCH ×2 (09:00→21:41)
[2020-11-16] MEDS: COD LIVER OIL/ZINC OXIDE OINT 113 GM TUBE TOP SCH ×2 (09:00→21:41)
[2020-11-16] MEDS: ENOXAPARIN SODIUM 40 MG/0.4 ML DISP.SYRIN SQ SCH (09:00)
[2020-11-16] MEDS: DOCUSATE SODIUM 100 MG/10 ML LIQUID UDC GT SCH ×2 (09:00→21:41)
[2020-11-16] MEDS: VITAMINS A AND D OINT TP SCH ×2 (09:00→21:41)
[2020-11-16] MEDS: PHENOBARBITAL 97.2 MG GT SCH (09:00)
[2020-11-16] MEDS: TERAZOSIN 1 MG CAPSULE GT SCH (09:00)
[2020-11-16] MEDS: FAMOTIDINE 20 MG TABLET GT SCH ×2 (09:00→21:41)
[2020-11-16] MEDS: levETIRAcetam 500 MG/5 ML LIQUID UDC GT SCH ×2 (09:00→21:41)
[2020-11-16] MEDS: HYDROGEN PEROXIDE 3% 118 ML BOTTLE TP SCH ×2 (09:45→21:00)
--- NOTE | 2020-11-16 12:18 | NUR ---
video call provided with pt. and family. No complaint at this time. Pt.tolerating the feeding at this time. Pt. comfortable and no sob at this time. Will continue to monitor.
--- NOTE | 2020-11-16 14:04 | NUR ---
INTERDISCIPLINARY PLAN OF CARE CONFERENCE was held today. Patient's daughter Janis and patient's father Arden participated in the meeting today by speaker phone. Dr. Peralta and the Interdisciplinary Team reviewed the current plan of care in detail. RN reported on patient's medical condition, and findings of recent labs and chest x-ray. See RN IDT conference notes. No major changes in medical condition were reported by nursing or by the other disciplines. See all other disciplines IDT notes and physician's progress notes for additional details. Patient's father and patient's daughter both stated not having any questions at this time, and being content with the current plan of care.
[2020-11-16 19:56] VITALS: BP 146/87
[2020-11-16] MEDS: MINERAL OIL/PETROLAT OPHT OINT 3.5 GM TUBE EACHEYE SCH (21:41)
[2020-11-16] MEDS: THIAMINE HCL 100 MG TABLET GT SCH (21:41)
[2020-11-16] MEDS: ATORVASTATIN 40 MG TABLET GT SCH (21:41)
--- NOTE | 2020-11-17 03:00 | NUR ---
For Covid -19 test today per [facility] requirement. Addendum: 11/17/20 at 0643 by ISRRAEL ESTEVES RN Patient is afebrile, gt is intact and patent, tolerating feeding well, no signs of any distress, kept clean and comfortable.
[2020-11-17] MEDS: BLOOD SUGAR DIAGNOSTIC 1 EACH STRIP VI SCH ×3 (05:43→17:15)
[2020-11-17] MEDS: INSULIN REGULAR, HUMAN 300 UNIT/3 ML VIAL SQ PRN ×3 (05:45→17:16)
[2020-11-17 07:30] VITALS: BP 147/87
[2020-11-17] MEDS: HYDROGEN PEROXIDE 3% 118 ML BOTTLE TP SCH ×2 (09:00→21:00)
[2020-11-17] MEDS: levETIRAcetam 500 MG/5 ML LIQUID UDC GT SCH ×2 (09:16→21:00)
[2020-11-17] MEDS: DOCUSATE SODIUM 100 MG/10 ML LIQUID UDC GT SCH ×2 (09:16→21:00)
[2020-11-17] MEDS: TERAZOSIN 1 MG CAPSULE GT SCH (09:16)
[2020-11-17] MEDS: PHENOBARBITAL 97.2 MG GT SCH (09:16)
[2020-11-17] MEDS: FAMOTIDINE 20 MG TABLET GT SCH ×2 (09:18→21:00)
[2020-11-17] MEDS: METOPROLOL TARTRATE 25 MG TABLET GT SCH ×2 (09:18→21:00)
[2020-11-17] MEDS: ENOXAPARIN SODIUM 40 MG/0.4 ML DISP.SYRIN SQ SCH (09:19)
[2020-11-17] MEDS: COD LIVER OIL/ZINC OXIDE OINT 113 GM TUBE TOP SCH ×2 (09:20→21:00)
[2020-11-17] MEDS: VITAMINS A AND D OINT TP SCH ×2 (09:20→21:00)
[2020-11-17] MEDS ORDERED: COVID-19 VACC,MRNA(MODERNA)/PF 100 MCG/0.5 ML VIAL IM SCH (10:00)
[2020-11-17 12:00] VITALS: BP 141/79
[2020-11-17] MEDS: GLUCERNA 1.2 1000ML LIQUID GT PRN (12:17)
[2020-11-17 18:00] VITALS: BP 146/84
--- NOTE | 2020-11-17 18:11 | NUR ---
1st DOSE OF COVID VACCINE WAS ADMINISTERED TODAY AND COVID TEST WAS ALSO DONE TODAY, NO ADVERSE REACTION NOTED AT THIS TIME, PATIENT'S FATHER CHERIE RESPONSIBLE DEMOCRAT AWARE.
[2020-11-17 20:07] VITALS: BP 145/83
[2020-11-17] MEDS: THIAMINE HCL 100 MG TABLET GT SCH (21:00)
[2020-11-17] MEDS: MINERAL OIL/PETROLAT OPHT OINT 3.5 GM TUBE EACHEYE SCH (21:00)
[2020-11-17] MEDS: ATORVASTATIN 40 MG TABLET GT SCH (21:00)
--- NOTE | 2020-11-17 23:27 | NUR ---
Patient is afebrile, no adverse reactions from COVID-19 vaccine ( MODERNA), no signs of any distress noted, kept clean and comfortable, will continue monitor.
[2020-11-18] MEDS: BLOOD SUGAR DIAGNOSTIC 1 EACH STRIP VI SCH ×4 (00:54→17:47)
[2020-11-18] MEDS: INSULIN REGULAR, HUMAN 300 UNIT/3 ML VIAL SQ PRN ×4 (00:55→17:49)
--- NOTE | 2020-11-18 02:55 | NUR ---
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
[2020-11-18 07:29] VITALS: BP 167/92
[2020-11-18] MEDS: DOCUSATE SODIUM 100 MG/10 ML LIQUID UDC GT SCH ×2 (08:47→21:48)
[2020-11-18] MEDS: PHENOBARBITAL 97.2 MG GT SCH (08:47)
[2020-11-18] MEDS: levETIRAcetam 500 MG/5 ML LIQUID UDC GT SCH ×2 (08:48→21:49)
[2020-11-18] MEDS: FAMOTIDINE 20 MG TABLET GT SCH ×2 (08:48→21:50)
[2020-11-18] MEDS: TERAZOSIN 1 MG CAPSULE GT SCH (08:48)
[2020-11-18] MEDS: COD LIVER OIL/ZINC OXIDE OINT 113 GM TUBE TOP SCH ×2 (08:48→21:50)
[2020-11-18] MEDS: METOPROLOL TARTRATE 25 MG TABLET GT SCH ×2 (08:48→21:50)
[2020-11-18] MEDS: VITAMINS A AND D OINT TP SCH ×2 (08:49→21:50)
[2020-11-18] MEDS: ENOXAPARIN SODIUM 40 MG/0.4 ML DISP.SYRIN SQ SCH (08:49)
[2020-11-18 09:00] VITALS: BP 144/88
[2020-11-18] MEDS: HYDROGEN PEROXIDE 3% 118 ML BOTTLE TP SCH ×2 (09:21→21:39)
[2020-11-18 12:00] VITALS: BP 151/85
[2020-11-18 18:00] VITALS: BP 152/81
--- NOTE | 2020-11-18 18:23 | NUR ---
S/P FIRST DOSE OF COVID-19 VACCINATION. NO ADVERSE REACTION NOTED WILL CONTINUE TO MONITOR.
[2020-11-18 19:53] VITALS: BP 136/86
[2020-11-18] MEDS: MINERAL OIL/PETROLAT OPHT OINT 3.5 GM TUBE EACHEYE SCH (21:48)
[2020-11-18] MEDS: ATORVASTATIN 40 MG TABLET GT SCH (21:49)
[2020-11-18] MEDS: THIAMINE HCL 100 MG TABLET GT SCH (21:50)
[2020-11-19] MEDS: BLOOD SUGAR DIAGNOSTIC 1 EACH STRIP VI SCH ×5 (00:53→23:27)
[2020-11-19] MEDS: INSULIN REGULAR, HUMAN 300 UNIT/3 ML VIAL SQ PRN ×5 (00:54→23:26)
[2020-11-19] MEDS: GLUCERNA 1.2 1000ML LIQUID GT PRN ×2 (03:45→22:41)
--- NOTE | 2020-11-19 07:07 | NUR ---
S/P FIRST DOSE OF COVID-19 VACCINATION. NO ADVERSE REACTION NOTED WILL CONTINUE TO MONITOR.
[2020-11-19] MEDS: HYDROGEN PEROXIDE 3% 118 ML BOTTLE TP SCH ×2 (07:31→21:49)
[2020-11-19 07:45] VITALS: BP 168/97
[2020-11-19] MEDS: DOCUSATE SODIUM 100 MG/10 ML LIQUID UDC GT SCH ×2 (08:48→20:10)
[2020-11-19] MEDS: levETIRAcetam 500 MG/5 ML LIQUID UDC GT SCH ×2 (08:48→20:10)
[2020-11-19] MEDS: PHENOBARBITAL 97.2 MG GT SCH (08:48)
[2020-11-19] MEDS: TERAZOSIN 1 MG CAPSULE GT SCH (08:48)
[2020-11-19] MEDS: COD LIVER OIL/ZINC OXIDE OINT 113 GM TUBE TOP SCH ×2 (08:49→20:11)
[2020-11-19] MEDS: VITAMINS A AND D OINT TP SCH ×2 (08:49→20:11)
[2020-11-19] MEDS: FAMOTIDINE 20 MG TABLET GT SCH ×2 (08:49→20:11)
[2020-11-19] MEDS: ENOXAPARIN SODIUM 40 MG/0.4 ML DISP.SYRIN SQ SCH (08:49)
[2020-11-19] MEDS: METOPROLOL TARTRATE 25 MG TABLET GT SCH ×2 (08:49→20:11)
[2020-11-19 12:00] VITALS: BP 152/86
[2020-11-19 18:00] VITALS: BP 149/87
[2020-11-19] MEDS: ATORVASTATIN 40 MG TABLET GT SCH (20:10)
[2020-11-19] MEDS: MINERAL OIL/PETROLAT OPHT OINT 3.5 GM TUBE EACHEYE SCH (20:10)
[2020-11-19] MEDS: THIAMINE HCL 100 MG TABLET GT SCH (20:11)
[2020-11-19] MEDS: ACETAMINOPHEN 650 MG/20.3 ML LIQUID UDC GT PRN (20:12)
[2020-11-19 20:15] VITALS: BP 151/80
[2020-11-20 00:01] VITALS: BP 156/61
--- NOTE | 2020-11-20 04:32 | NUR ---
1st Dose of COVID Vaccine ( MODERNA) given on 11/17/20, 98.1, no signs of any distress, will continue monitor.
[2020-11-20] MEDS: INSULIN REGULAR, HUMAN 300 UNIT/3 ML VIAL SQ PRN ×4 (05:42→23:16)
[2020-11-20] MEDS: BLOOD SUGAR DIAGNOSTIC 1 EACH STRIP VI SCH ×4 (05:42→23:17)
[2020-11-20 06:07] VITALS: BP 152/84
[2020-11-20 07:44] VITALS: BP 156/82
[2020-11-20] MEDS: ENOXAPARIN SODIUM 40 MG/0.4 ML DISP.SYRIN SQ SCH (08:50)
[2020-11-20] MEDS: TERAZOSIN 1 MG CAPSULE GT SCH (08:54)
[2020-11-20] MEDS: PHENOBARBITAL 97.2 MG GT SCH (08:54)
[2020-11-20] MEDS: DOCUSATE SODIUM 100 MG/10 ML LIQUID UDC GT SCH ×2 (08:54→20:15)
[2020-11-20] MEDS: METOPROLOL TARTRATE 25 MG TABLET GT SCH ×2 (09:00→20:16)
[2020-11-20] MEDS: VITAMINS A AND D OINT TP SCH ×2 (09:00→20:15)
[2020-11-20] MEDS: FAMOTIDINE 20 MG TABLET GT SCH ×2 (09:00→20:15)
[2020-11-20] MEDS: levETIRAcetam 500 MG/5 ML LIQUID UDC GT SCH ×2 (09:00→20:15)
[2020-11-20] MEDS: COD LIVER OIL/ZINC OXIDE OINT 113 GM TUBE TOP SCH ×2 (09:00→20:15)
[2020-11-20 12:00] VITALS: BP 149/80
--- NOTE | 2020-11-20 12:25 | NUR ---
SEEN BY DR. WEBSTER, NO NEW ORDERS.
[2020-11-20 18:02] VITALS: BP 155/84
[2020-11-20 20:03] VITALS: BP 150/88
[2020-11-20] MEDS: ACETAMINOPHEN 650 MG/20.3 ML LIQUID UDC GT PRN (20:15)
[2020-11-20] MEDS: THIAMINE HCL 100 MG TABLET GT SCH (20:15)
[2020-11-20] MEDS: MINERAL OIL/PETROLAT OPHT OINT 3.5 GM TUBE EACHEYE SCH (20:15)
[2020-11-20] MEDS: ATORVASTATIN 40 MG TABLET GT SCH (20:15)
[2020-11-20] MEDS: HYDROGEN PEROXIDE 3% 118 ML BOTTLE TP SCH (21:00)
[2020-11-21 00:37] VITALS: BP 142/86
[2020-11-21] MEDS: BLOOD SUGAR DIAGNOSTIC 1 EACH STRIP VI SCH ×4 (05:03→23:15)
[2020-11-21] MEDS: INSULIN REGULAR, HUMAN 300 UNIT/3 ML VIAL SQ PRN ×4 (05:03→23:15)
[2020-11-21 06:11] VITALS: BP 152/83
[2020-11-21 07:36] VITALS: BP 166/91
--- NOTE | 2020-11-21 08:45 | NUR ---
Dr Rios call with new orders for EEG today ,he will come in Am .
[2020-11-21] MEDS: PHENOBARBITAL 97.2 MG GT SCH (09:23)
[2020-11-21] MEDS: DOCUSATE SODIUM 100 MG/10 ML LIQUID UDC GT SCH ×2 (09:23→20:36)
[2020-11-21] MEDS: levETIRAcetam 500 MG/5 ML LIQUID UDC GT SCH ×2 (09:24→20:36)
[2020-11-21] MEDS: METOPROLOL TARTRATE 25 MG TABLET GT SCH ×2 (09:24→20:36)
[2020-11-21] MEDS: ENOXAPARIN SODIUM 40 MG/0.4 ML DISP.SYRIN SQ SCH (09:24)
[2020-11-21] MEDS: COD LIVER OIL/ZINC OXIDE OINT 113 GM TUBE TOP SCH ×2 (09:24→20:36)
[2020-11-21] MEDS: TERAZOSIN 1 MG CAPSULE GT SCH (09:24)
[2020-11-21] MEDS: FAMOTIDINE 20 MG TABLET GT SCH ×2 (09:24→20:36)
[2020-11-21] MEDS: VITAMINS A AND D OINT TP SCH ×2 (09:24→20:36)
[2020-11-21] MEDS: HYDROGEN PEROXIDE 3% 118 ML BOTTLE TP SCH ×2 (09:24→21:37)
[2020-11-21] MEDS: GLUCERNA 1.2 1000ML LIQUID GT PRN (12:08)
[2020-11-21] MEDS: hydrALAZINE HCL 25 MG TABLET GT PRN (18:27)
[2020-11-21 20:30] VITALS: BP 137/81
[2020-11-21] MEDS: ATORVASTATIN 40 MG TABLET GT SCH (20:36)
[2020-11-21] MEDS: MINERAL OIL/PETROLAT OPHT OINT 3.5 GM TUBE EACHEYE SCH (20:36)
[2020-11-21] MEDS: THIAMINE HCL 100 MG TABLET GT SCH (20:36)
[2020-11-22 00:36] VITALS: BP 148/80
[2020-11-22] MEDS: GLUCERNA 1.2 1000ML LIQUID GT PRN (02:53)
[2020-11-22] MEDS: BLOOD SUGAR DIAGNOSTIC 1 EACH STRIP VI SCH ×3 (05:24→17:25)
[2020-11-22] MEDS: INSULIN REGULAR, HUMAN 300 UNIT/3 ML VIAL SQ PRN ×3 (05:25→17:26)
[2020-11-22 07:35] VITALS: BP 162/91
[2020-11-22] MEDS: PHENOBARBITAL 97.2 MG GT SCH (08:28)
[2020-11-22] MEDS: ENOXAPARIN SODIUM 40 MG/0.4 ML DISP.SYRIN SQ SCH (08:28)
[2020-11-22] MEDS: levETIRAcetam 500 MG/5 ML LIQUID UDC GT SCH ×2 (08:28→20:38)
[2020-11-22] MEDS: FAMOTIDINE 20 MG TABLET GT SCH ×2 (08:28→20:40)
[2020-11-22] MEDS: COD LIVER OIL/ZINC OXIDE OINT 113 GM TUBE TOP SCH ×2 (08:28→20:40)
[2020-11-22] MEDS: VITAMINS A AND D OINT TP SCH ×2 (08:28→20:40)
[2020-11-22] MEDS: DOCUSATE SODIUM 100 MG/10 ML LIQUID UDC GT SCH ×2 (08:28→20:37)
[2020-11-22] MEDS: METOPROLOL TARTRATE 25 MG TABLET GT SCH ×2 (08:28→20:40)
[2020-11-22] MEDS: TERAZOSIN 1 MG CAPSULE GT SCH (08:28)
[2020-11-22] MEDS: HYDROGEN PEROXIDE 3% 118 ML BOTTLE TP SCH ×2 (09:33→20:40)
--- NOTE | 2020-11-22 15:09 | NUR ---
Seen by Dr. Rios, new order given to check phenobarbital level in am, was informed pt's father wants to talk to him, stated "I'll call him".
[2020-11-22 20:12] VITALS: BP 164/89
[2020-11-22] MEDS: MINERAL OIL/PETROLAT OPHT OINT 3.5 GM TUBE EACHEYE SCH (20:37)
[2020-11-22] MEDS: ATORVASTATIN 40 MG TABLET GT SCH (20:39)
[2020-11-22] MEDS: THIAMINE HCL 100 MG TABLET GT SCH (20:40)
[2020-11-22] MEDS: ACETAMINOPHEN 650 MG/20.3 ML LIQUID UDC GT PRN (20:41)
[2020-11-22 22:00] VITALS: BP 148/82
[2020-11-23] VITALS: BP 132/78
[2020-11-23] MEDS: BLOOD SUGAR DIAGNOSTIC 1 EACH STRIP VI SCH ×4 (00:52→17:09)
[2020-11-23] MEDS: LORAZEPAM 1 MG TABLET GT PRN (00:53)
[2020-11-23] MEDS: INSULIN REGULAR, HUMAN 300 UNIT/3 ML VIAL SQ PRN ×4 (00:53→17:10)
--- NOTE | 2020-11-23 00:53 | NUR ---
Ativan given via gt for muscle spasms, no adverse reactions noted, on aspiration and seizure precaution, kept clean and comfortable.
[2020-11-23] MEDS: GLUCERNA 1.2 1000ML LIQUID GT PRN ×2 (01:12→18:28)
[2020-11-23 05:00] VITALS: BP 148/86
[2020-11-23 08:30] VITALS: BP 156/85
--- NOTE | 2020-11-23 08:30 | NUR ---
Seen and examined By Dr Rios ,notified regarding phenob level,new orders noted and carried out.
[2020-11-23] MEDS: HYDROGEN PEROXIDE 3% 118 ML BOTTLE TP SCH ×2 (09:00→21:00)
[2020-11-23] MEDS: TERAZOSIN 1 MG CAPSULE GT SCH (09:04)
[2020-11-23] MEDS: DOCUSATE SODIUM 100 MG/10 ML LIQUID UDC GT SCH ×2 (09:04→21:37)
[2020-11-23] MEDS: levETIRAcetam 500 MG/5 ML LIQUID UDC GT SCH ×2 (09:04→21:38)
[2020-11-23] MEDS: PHENOBARBITAL 97.2 MG GT SCH ×2 (09:04→21:37)
[2020-11-23] MEDS: FAMOTIDINE 20 MG TABLET GT SCH ×2 (09:05→21:39)
[2020-11-23] MEDS: METOPROLOL TARTRATE 25 MG TABLET GT SCH ×2 (09:05→21:39)
[2020-11-23] MEDS: COD LIVER OIL/ZINC OXIDE OINT 113 GM TUBE TOP SCH ×2 (09:06→21:39)
[2020-11-23] MEDS: ENOXAPARIN SODIUM 40 MG/0.4 ML DISP.SYRIN SQ SCH (09:07)
[2020-11-23] MEDS: VITAMINS A AND D OINT TP SCH ×2 (09:11→21:39)
[2020-11-23] MEDS ORDERED: PHENOBARBITAL 97.2 MG GT ONE (09:45)
--- NOTE | 2020-11-23 13:07 | NUR ---
Seen By Cari Price,with no new orders noted.
[2020-11-23 19:56] VITALS: BP 156/88
[2020-11-23] MEDS: MINERAL OIL/PETROLAT OPHT OINT 3.5 GM TUBE EACHEYE SCH (21:37)
[2020-11-23] MEDS: ATORVASTATIN 40 MG TABLET GT SCH (21:38)
[2020-11-23] MEDS: THIAMINE HCL 100 MG TABLET GT SCH (21:39)
[2020-11-24] MEDS: BLOOD SUGAR DIAGNOSTIC 1 EACH STRIP VI SCH ×5 (00:47→23:23)
[2020-11-24] MEDS: INSULIN REGULAR, HUMAN 300 UNIT/3 ML VIAL SQ PRN ×3 (01:37→23:24)
[2020-11-24 07:37] VITALS: BP 140/87
[2020-11-24] MEDS: PHENOBARBITAL 97.2 MG GT SCH ×2 (09:00→21:57)
[2020-11-24] MEDS: DOCUSATE SODIUM 100 MG/10 ML LIQUID UDC GT SCH ×2 (09:00→21:46)
[2020-11-24] MEDS: TERAZOSIN 1 MG CAPSULE GT SCH (09:01)
[2020-11-24] MEDS: METOPROLOL TARTRATE 25 MG TABLET GT SCH ×2 (09:02→21:49)
[2020-11-24] MEDS: levETIRAcetam 500 MG/5 ML LIQUID UDC GT SCH ×2 (09:04→21:47)
[2020-11-24] MEDS: FAMOTIDINE 20 MG TABLET GT SCH ×2 (09:05→21:49)
[2020-11-24] MEDS: COD LIVER OIL/ZINC OXIDE OINT 113 GM TUBE TOP SCH ×2 (09:05→21:49)
[2020-11-24] MEDS: VITAMINS A AND D OINT TP SCH ×2 (09:05→21:49)
[2020-11-24] MEDS: HYDROGEN PEROXIDE 3% 118 ML BOTTLE TP SCH ×2 (09:05→21:28)
[2020-11-24] MEDS: ENOXAPARIN SODIUM 40 MG/0.4 ML DISP.SYRIN SQ SCH (09:13)
--- NOTE | 2020-11-24 19:30 | NUR ---
Covid 19 test today,Pt's daughter shana notified.
[2020-11-24 20:00] VITALS: BP 135/87
[2020-11-24] MEDS: MINERAL OIL/PETROLAT OPHT OINT 3.5 GM TUBE EACHEYE SCH (21:46)
[2020-11-24] MEDS: ATORVASTATIN 40 MG TABLET GT SCH (21:48)
[2020-11-24] MEDS: THIAMINE HCL 100 MG TABLET GT SCH (21:49)
[2020-11-25] MEDS: BLOOD SUGAR DIAGNOSTIC 1 EACH STRIP VI SCH ×3 (06:24→17:13)
[2020-11-25] MEDS: INSULIN REGULAR, HUMAN 300 UNIT/3 ML VIAL SQ PRN ×3 (06:25→17:14)
[2020-11-25 08:13] VITALS: BP 158/85
[2020-11-25] MEDS: TERAZOSIN 1 MG CAPSULE GT SCH (08:15)
[2020-11-25] MEDS: PHENOBARBITAL 97.2 MG GT SCH ×2 (08:15→21:00)
[2020-11-25] MEDS: DOCUSATE SODIUM 100 MG/10 ML LIQUID UDC GT SCH ×2 (08:15→21:00)
[2020-11-25] MEDS: METOPROLOL TARTRATE 25 MG TABLET GT SCH ×2 (08:15→21:00)
[2020-11-25] MEDS: levETIRAcetam 500 MG/5 ML LIQUID UDC GT SCH ×2 (08:15→21:00)
[2020-11-25] MEDS: FAMOTIDINE 20 MG TABLET GT SCH ×2 (08:16→21:00)
[2020-11-25] MEDS: ENOXAPARIN SODIUM 40 MG/0.4 ML DISP.SYRIN SQ SCH (08:17)
[2020-11-25] MEDS: VITAMINS A AND D OINT TP SCH ×2 (08:17→21:00)
[2020-11-25] MEDS: COD LIVER OIL/ZINC OXIDE OINT 113 GM TUBE TOP SCH ×2 (08:17→21:00)
[2020-11-25] MEDS: HYDROGEN PEROXIDE 3% 118 ML BOTTLE TP SCH ×2 (09:45→21:07)
[2020-11-25] MEDS: GLUCERNA 1.2 1000ML LIQUID GT PRN (10:30)
[2020-11-25 12:00] VITALS: BP 149/79
--- NOTE | 2020-11-25 16:03 | NUR ---
SEEN BY FABY Montoya AND WITH NNO.
[2020-11-25 18:00] VITALS: BP 151/87
[2020-11-25 19:13] VITALS: BP 151/87
[2020-11-25] MEDS: THIAMINE HCL 100 MG TABLET GT SCH (21:00)
[2020-11-25] MEDS: MINERAL OIL/PETROLAT OPHT OINT 3.5 GM TUBE EACHEYE SCH (21:00)
[2020-11-25] MEDS: ATORVASTATIN 40 MG TABLET GT SCH (21:00)
[2020-11-26] MEDS: BLOOD SUGAR DIAGNOSTIC 1 EACH STRIP VI SCH ×4 (00:40→17:42)
[2020-11-26] MEDS: INSULIN REGULAR, HUMAN 300 UNIT/3 ML VIAL SQ PRN ×4 (00:45→17:42)
[2020-11-26] MEDS: GLUCERNA 1.2 1000ML LIQUID GT PRN (06:08)
[2020-11-26 06:28] VITALS: BP 157/87
[2020-11-26 07:56] VITALS: BP 160/90
[2020-11-26 08:30] VITALS: BP 155/77
[2020-11-26] MEDS: DOCUSATE SODIUM 100 MG/10 ML LIQUID UDC GT SCH ×2 (08:39→20:41)
[2020-11-26] MEDS: PHENOBARBITAL 97.2 MG GT SCH ×2 (08:39→20:46)
[2020-11-26] MEDS: METOPROLOL TARTRATE 25 MG TABLET GT SCH ×2 (08:42→20:43)
[2020-11-26] MEDS: FAMOTIDINE 20 MG TABLET GT SCH ×2 (08:42→20:43)
[2020-11-26] MEDS: levETIRAcetam 500 MG/5 ML LIQUID UDC GT SCH ×2 (08:42→20:41)
[2020-11-26] MEDS: TERAZOSIN 1 MG CAPSULE GT SCH (08:42)
[2020-11-26] MEDS: COD LIVER OIL/ZINC OXIDE OINT 113 GM TUBE TOP SCH ×2 (08:43→20:43)
[2020-11-26] MEDS: VITAMINS A AND D OINT TP SCH ×2 (08:43→20:43)
[2020-11-26] MEDS: ENOXAPARIN SODIUM 40 MG/0.4 ML DISP.SYRIN SQ SCH (08:43)
[2020-11-26] MEDS: HYDROGEN PEROXIDE 3% 118 ML BOTTLE TP SCH ×2 (09:00→21:32)
[2020-11-26 12:00] VITALS: BP 151/82
--- NOTE | 2020-11-26 16:16 | NUR ---
PT'S RESP. [employer] WAS NOTIFIED RE: COVID 19 TEST NEGATIVE FROM 11/24/20.
[2020-11-26 18:00] VITALS: BP 157/83
[2020-11-26 19:12] VITALS: BP 144/84
[2020-11-26] MEDS: MINERAL OIL/PETROLAT OPHT OINT 3.5 GM TUBE EACHEYE SCH (20:41)
[2020-11-26] MEDS: ATORVASTATIN 40 MG TABLET GT SCH (20:42)
[2020-11-26] MEDS: THIAMINE HCL 100 MG TABLET GT SCH (20:43)
[2020-11-27] MEDS: GLUCERNA 1.2 1000ML LIQUID GT PRN (00:56)
[2020-11-27] MEDS: BLOOD SUGAR DIAGNOSTIC 1 EACH STRIP VI SCH ×4 (00:56→17:02)
[2020-11-27] MEDS: INSULIN REGULAR, HUMAN 300 UNIT/3 ML VIAL SQ PRN ×4 (00:57→17:03)
[2020-11-27 07:48] VITALS: BP 154/85
[2020-11-27] MEDS: HYDROGEN PEROXIDE 3% 118 ML BOTTLE TP SCH ×2 (07:56→21:17)
[2020-11-27] MEDS: DOCUSATE SODIUM 100 MG/10 ML LIQUID UDC GT SCH ×2 (08:20→20:26)
[2020-11-27] MEDS: PHENOBARBITAL 97.2 MG GT SCH ×2 (08:20→20:26)
[2020-11-27] MEDS: levETIRAcetam 500 MG/5 ML LIQUID UDC GT SCH ×2 (08:28→20:26)
[2020-11-27] MEDS: TERAZOSIN 1 MG CAPSULE GT SCH (08:28)
[2020-11-27] MEDS: FAMOTIDINE 20 MG TABLET GT SCH ×2 (08:29→20:27)
[2020-11-27] MEDS: METOPROLOL TARTRATE 25 MG TABLET GT SCH ×2 (08:29→20:27)
[2020-11-27] MEDS: COD LIVER OIL/ZINC OXIDE OINT 113 GM TUBE TOP SCH ×2 (08:30→20:27)
[2020-11-27] MEDS: ENOXAPARIN SODIUM 40 MG/0.4 ML DISP.SYRIN SQ SCH (08:30)
[2020-11-27] MEDS: VITAMINS A AND D OINT TP SCH ×2 (08:30→20:28)
[2020-11-27 20:08] VITALS: BP 153/81
[2020-11-27] MEDS: MINERAL OIL/PETROLAT OPHT OINT 3.5 GM TUBE EACHEYE SCH (20:26)
[2020-11-27] MEDS: ATORVASTATIN 40 MG TABLET GT SCH (20:27)
[2020-11-27] MEDS: THIAMINE HCL 100 MG TABLET GT SCH (20:27)
[2020-11-28] MEDS: GLUCERNA 1.2 1000ML LIQUID GT PRN (00:19)
[2020-11-28] MEDS: BLOOD SUGAR DIAGNOSTIC 1 EACH STRIP VI SCH ×4 (00:19→17:18)
[2020-11-28] MEDS: INSULIN REGULAR, HUMAN 300 UNIT/3 ML VIAL SQ PRN ×4 (00:20→17:19)
[2020-11-28 07:28] VITALS: BP 151/89
[2020-11-28] MEDS: DOCUSATE SODIUM 100 MG/10 ML LIQUID UDC GT SCH ×2 (08:47→21:27)
[2020-11-28] MEDS: METOPROLOL TARTRATE 25 MG TABLET GT SCH ×2 (08:48→21:28)
[2020-11-28] MEDS: TERAZOSIN 1 MG CAPSULE GT SCH (08:48)
[2020-11-28] MEDS: FAMOTIDINE 20 MG TABLET GT SCH ×2 (08:48→21:28)
[2020-11-28] MEDS: levETIRAcetam 500 MG/5 ML LIQUID UDC GT SCH ×2 (08:48→21:28)
[2020-11-28] MEDS: PHENOBARBITAL 97.2 MG GT SCH ×2 (08:48→21:27)
[2020-11-28] MEDS: VITAMINS A AND D OINT TP SCH ×2 (08:50→21:28)
[2020-11-28] MEDS: ENOXAPARIN SODIUM 40 MG/0.4 ML DISP.SYRIN SQ SCH (08:50)
[2020-11-28] MEDS: COD LIVER OIL/ZINC OXIDE OINT 113 GM TUBE TOP SCH ×2 (08:50→21:28)
[2020-11-28] MEDS: HYDROGEN PEROXIDE 3% 118 ML BOTTLE TP SCH ×2 (09:51→21:56)
--- NOTE | 2020-11-28 13:00 | NUR ---
zoom provided to parents.
[2020-11-28 18:38] VITALS: BP 135/81
[2020-11-28 19:56] VITALS: BP 145/76
[2020-11-28] MEDS: MINERAL OIL/PETROLAT OPHT OINT 3.5 GM TUBE EACHEYE SCH (21:27)
[2020-11-28] MEDS: THIAMINE HCL 100 MG TABLET GT SCH (21:28)
[2020-11-28] MEDS: ATORVASTATIN 40 MG TABLET GT SCH (21:28)
[2020-11-29] MEDS: BLOOD SUGAR DIAGNOSTIC 1 EACH STRIP VI SCH ×4 (00:16→17:18)
[2020-11-29] MEDS: GLUCERNA 1.2 1000ML LIQUID GT PRN ×2 (00:38→17:28)
[2020-11-29] MEDS: INSULIN REGULAR, HUMAN 300 UNIT/3 ML VIAL SQ PRN ×4 (01:13→17:19)
[2020-11-29 07:30] VITALS: BP 144/78
[2020-11-29] MEDS: HYDROGEN PEROXIDE 3% 118 ML BOTTLE TP SCH ×2 (07:52→21:23)
[2020-11-29] MEDS: DOCUSATE SODIUM 100 MG/10 ML LIQUID UDC GT SCH ×2 (08:47→21:57)
[2020-11-29] MEDS: PHENOBARBITAL 97.2 MG GT SCH ×2 (08:48→21:57)
[2020-11-29] MEDS: TERAZOSIN 1 MG CAPSULE GT SCH (08:49)
[2020-11-29] MEDS: levETIRAcetam 500 MG/5 ML LIQUID UDC GT SCH ×2 (08:49→21:57)
[2020-11-29] MEDS: FAMOTIDINE 20 MG TABLET GT SCH ×2 (08:49→21:57)
[2020-11-29] MEDS: METOPROLOL TARTRATE 25 MG TABLET GT SCH ×2 (08:49→21:57)
[2020-11-29] MEDS: COD LIVER OIL/ZINC OXIDE OINT 113 GM TUBE TOP SCH ×2 (08:50→21:58)
[2020-11-29] MEDS: VITAMINS A AND D OINT TP SCH ×2 (08:50→21:58)
[2020-11-29] MEDS: ENOXAPARIN SODIUM 40 MG/0.4 ML DISP.SYRIN SQ SCH (08:50)
[2020-11-29 12:00] VITALS: BP 146/73
--- NOTE | 2020-11-29 13:00 | NUR ---
SEEN BY FABY Montoya AND WITH NNO.
[2020-11-29 19:46] VITALS: BP 146/90
[2020-11-29] MEDS: ATORVASTATIN 40 MG TABLET GT SCH (21:57)
[2020-11-29] MEDS: MINERAL OIL/PETROLAT OPHT OINT 3.5 GM TUBE EACHEYE SCH (21:57)
[2020-11-29] MEDS: THIAMINE HCL 100 MG TABLET GT SCH (21:57)
[2020-11-30] MEDS: BLOOD SUGAR DIAGNOSTIC 1 EACH STRIP VI SCH ×5 (00:54→23:33)
[2020-11-30 07:17] VITALS: BP 150/87
[2020-11-30] MEDS: PHENOBARBITAL 97.2 MG GT SCH ×2 (09:04→21:00)
[2020-11-30] MEDS: levETIRAcetam 500 MG/5 ML LIQUID UDC GT SCH ×2 (09:05→21:00)
[2020-11-30] MEDS: TERAZOSIN 1 MG CAPSULE GT SCH (09:05)
[2020-11-30] MEDS: METOPROLOL TARTRATE 25 MG TABLET GT SCH ×2 (09:06→21:00)
[2020-11-30] MEDS: FAMOTIDINE 20 MG TABLET GT SCH ×2 (09:06→21:00)
[2020-11-30] MEDS: COD LIVER OIL/ZINC OXIDE OINT 113 GM TUBE TOP SCH ×2 (09:06→21:00)
[2020-11-30] MEDS: ENOXAPARIN SODIUM 40 MG/0.4 ML DISP.SYRIN SQ SCH (09:07)
[2020-11-30] MEDS: VITAMINS A AND D OINT TP SCH ×2 (09:07→21:00)
[2020-11-30] MEDS: DOCUSATE SODIUM 100 MG/10 ML LIQUID UDC GT SCH ×2 (09:08→21:00)
[2020-11-30] MEDS: HYDROGEN PEROXIDE 3% 118 ML BOTTLE TP SCH ×2 (09:32→20:18)
[2020-11-30] MEDS: GLUCERNA 1.2 1000ML LIQUID GT PRN (11:41)
[2020-11-30] MEDS: INSULIN REGULAR, HUMAN 300 UNIT/3 ML VIAL SQ PRN ×3 (11:42→23:34)
[2020-11-30 12:00] VITALS: BP 148/84
--- NOTE | 2020-11-30 15:37 | NUR ---
video chat provided to pt's daughter.
--- NOTE | 2020-11-30 17:41 | NUR ---
Covid 19 test today,Kylie linder's daughter notified.
[2020-11-30 18:04] VITALS: BP 142/88
[2020-11-30 20:47] VITALS: BP 156/83
[2020-11-30] MEDS: THIAMINE HCL 100 MG TABLET GT SCH (21:00)
[2020-11-30] MEDS: MINERAL OIL/PETROLAT OPHT OINT 3.5 GM TUBE EACHEYE SCH (21:00)
[2020-11-30] MEDS: ATORVASTATIN 40 MG TABLET GT SCH (21:00)
[2020-12-01] MEDS: BLOOD SUGAR DIAGNOSTIC 1 EACH STRIP VI SCH ×3 (05:14→17:13)
[2020-12-01] MEDS: GLUCERNA 1.2 1000ML LIQUID GT PRN (05:15)
[2020-12-01] MEDS: INSULIN REGULAR, HUMAN 300 UNIT/3 ML VIAL SQ PRN ×3 (05:18→17:14)
[2020-12-01 06:40] VITALS: BP 145/78
[2020-12-01 07:28] VITALS: BP 158/87
[2020-12-01] MEDS: levETIRAcetam 500 MG/5 ML LIQUID UDC GT SCH ×2 (08:48→21:43)
[2020-12-01] MEDS: TERAZOSIN 1 MG CAPSULE GT SCH (08:48)
[2020-12-01] MEDS: DOCUSATE SODIUM 100 MG/10 ML LIQUID UDC GT SCH ×2 (08:48→21:42)
[2020-12-01] MEDS: METOPROLOL TARTRATE 25 MG TABLET GT SCH ×2 (08:49→21:44)
[2020-12-01] MEDS: FAMOTIDINE 20 MG TABLET GT SCH ×2 (08:49→21:45)
[2020-12-01] MEDS: ENOXAPARIN SODIUM 40 MG/0.4 ML DISP.SYRIN SQ SCH (08:50)
[2020-12-01] MEDS: VITAMINS A AND D OINT TP SCH ×2 (08:50→21:46)
[2020-12-01] MEDS: COD LIVER OIL/ZINC OXIDE OINT 113 GM TUBE TOP SCH ×2 (08:50→21:46)
[2020-12-01] MEDS: PHENOBARBITAL 97.2 MG GT SCH ×2 (08:58→21:42)
[2020-12-01] MEDS: HYDROGEN PEROXIDE 3% 118 ML BOTTLE TP SCH ×2 (09:00→21:00)
[2020-12-01 12:00] VITALS: BP 136/77
--- NOTE | 2020-12-01 12:51 | NUR ---
new orders noted for wound care consult and surgical consult for sacral wound Dti in evolution ,carried out,[facility] HOT [employer]OT notified.
[2020-12-01] MEDS ORDERED: CHLORHEXIDINE GLUCONATE 4% TP ONE (13:45)
--- NOTE | 2020-12-01 14:51 | NUR ---
Consent obtained from Kylie pt's daughter for sacral Dti in evolution serial debridement,[facility] Clinical Cytogeneticist Scientist did the debridement of the sacral wound,DTI in evolution,procedure tolerated well,no bleeding noted.no new tx orders noted.
[2020-12-01 18:12] VITALS: BP 142/84
[2020-12-01 20:37] VITALS: BP 142/82
[2020-12-01] MEDS ORDERED: PHENOBARBITAL 32.4 MG TABLET PO ONE ×2 (21:00)
[2020-12-01] MEDS: MINERAL OIL/PETROLAT OPHT OINT 3.5 GM TUBE EACHEYE SCH (21:42)
[2020-12-01] MEDS: ATORVASTATIN 40 MG TABLET GT SCH (21:43)
[2020-12-01] MEDS: THIAMINE HCL 100 MG TABLET GT SCH (21:45)
[2020-12-02] MEDS: GLUCERNA 1.2 1000ML LIQUID GT PRN (00:45)
--- NOTE | 2020-12-02 03:46 | NUR ---
Andrew from Lab called RE: Patient's negative Covid-19 result that is negative.
[2020-12-02] MEDS: BLOOD SUGAR DIAGNOSTIC 1 EACH STRIP VI SCH ×5 (06:26→23:21)
[2020-12-02] MEDS: INSULIN REGULAR, HUMAN 300 UNIT/3 ML VIAL SQ PRN ×5 (06:27→23:29)
[2020-12-02 06:28] VITALS: BP 140/85
[2020-12-02] MEDS: HYDROGEN PEROXIDE 3% 118 ML BOTTLE TP SCH ×2 (07:21→20:47)
[2020-12-02 07:34] VITALS: BP 153/84
[2020-12-02] MEDS: DOCUSATE SODIUM 100 MG/10 ML LIQUID UDC GT SCH ×2 (08:23→21:55)
[2020-12-02] MEDS: PHENOBARBITAL 97.2 MG GT SCH ×2 (08:24→21:55)
[2020-12-02] MEDS: TERAZOSIN 1 MG CAPSULE GT SCH (08:25)
[2020-12-02] MEDS: levETIRAcetam 500 MG/5 ML LIQUID UDC GT SCH ×2 (08:25→21:55)
[2020-12-02] MEDS: FAMOTIDINE 20 MG TABLET GT SCH ×2 (08:26→21:56)
[2020-12-02] MEDS: METOPROLOL TARTRATE 25 MG TABLET GT SCH ×2 (08:26→21:56)
[2020-12-02] MEDS: VITAMINS A AND D OINT TP SCH ×2 (08:27→21:57)
[2020-12-02] MEDS: ENOXAPARIN SODIUM 40 MG/0.4 ML DISP.SYRIN SQ SCH (08:27)
[2020-12-02] MEDS: COD LIVER OIL/ZINC OXIDE OINT 113 GM TUBE TOP SCH ×2 (08:27→21:57)
[2020-12-02 12:00] VITALS: BP 148/85
[2020-12-02 18:00] VITALS: BP 141/83
[2020-12-02 20:24] VITALS: BP 139/80
[2020-12-02] MEDS: MINERAL OIL/PETROLAT OPHT OINT 3.5 GM TUBE EACHEYE SCH (21:54)
[2020-12-02] MEDS: ATORVASTATIN 40 MG TABLET GT SCH (21:56)
[2020-12-02] MEDS: THIAMINE HCL 100 MG TABLET GT SCH (21:56)
[2020-12-03] MEDS: INSULIN REGULAR, HUMAN 300 UNIT/3 ML VIAL SQ PRN ×3 (06:15→18:00)
[2020-12-03] MEDS: BLOOD SUGAR DIAGNOSTIC 1 EACH STRIP VI SCH ×4 (06:15→23:45)
[2020-12-03] MEDS: HYDROGEN PEROXIDE 3% 118 ML BOTTLE TP SCH ×2 (07:31→21:00)
[2020-12-03 07:34] VITALS: BP 120/90
[2020-12-03] MEDS: DOCUSATE SODIUM 100 MG/10 ML LIQUID UDC GT SCH ×2 (08:21→20:40)
[2020-12-03] MEDS: PHENOBARBITAL 97.2 MG GT SCH ×2 (08:21→20:40)
[2020-12-03] MEDS: TERAZOSIN 1 MG CAPSULE GT SCH (08:22)
[2020-12-03] MEDS: METOPROLOL TARTRATE 25 MG TABLET GT SCH ×2 (08:22→20:42)
[2020-12-03] MEDS: levETIRAcetam 500 MG/5 ML LIQUID UDC GT SCH ×2 (08:22→20:40)
[2020-12-03] MEDS: FAMOTIDINE 20 MG TABLET GT SCH ×2 (08:22→20:42)
[2020-12-03] MEDS: VITAMINS A AND D OINT TP SCH ×2 (08:23→20:42)
[2020-12-03] MEDS: COD LIVER OIL/ZINC OXIDE OINT 113 GM TUBE TOP SCH ×2 (08:23→20:42)
[2020-12-03] MEDS: ENOXAPARIN SODIUM 40 MG/0.4 ML DISP.SYRIN SQ SCH (08:23)
[2020-12-03 12:00] VITALS: BP 145/82
[2020-12-03 18:00] VITALS: BP 139/78
[2020-12-03 20:03] VITALS: BP 145/84
[2020-12-03] MEDS: MINERAL OIL/PETROLAT OPHT OINT 3.5 GM TUBE EACHEYE SCH (20:39)
[2020-12-03] MEDS: ATORVASTATIN 40 MG TABLET GT SCH (20:41)
[2020-12-03] MEDS: THIAMINE HCL 100 MG TABLET GT SCH (20:42)
[2020-12-04] MEDS: INSULIN REGULAR, HUMAN 300 UNIT/3 ML VIAL SQ PRN ×4 (00:30→18:10)
[2020-12-04] MEDS: BLOOD SUGAR DIAGNOSTIC 1 EACH STRIP VI SCH ×3 (05:38→18:08)
[2020-12-04] MEDS: GLUCERNA 1.2 1000ML LIQUID GT PRN (05:38)
[2020-12-04 08:04] VITALS: BP 157/55
[2020-12-04] MEDS: HYDROGEN PEROXIDE 3% 118 ML BOTTLE TP SCH ×2 (09:00→21:19)
[2020-12-04] MEDS: DOCUSATE SODIUM 100 MG/10 ML LIQUID UDC GT SCH ×2 (09:07→20:38)
[2020-12-04] MEDS: levETIRAcetam 500 MG/5 ML LIQUID UDC GT SCH ×2 (09:07→20:39)
[2020-12-04] MEDS: PHENOBARBITAL 97.2 MG GT SCH ×2 (09:07→20:39)
[2020-12-04] MEDS: TERAZOSIN 1 MG CAPSULE GT SCH (09:07)
[2020-12-04] MEDS: VITAMINS A AND D OINT TP SCH ×2 (09:08→20:46)
[2020-12-04] MEDS: FAMOTIDINE 20 MG TABLET GT SCH ×2 (09:08→20:46)
[2020-12-04] MEDS: METOPROLOL TARTRATE 25 MG TABLET GT SCH ×2 (09:08→20:46)
[2020-12-04] MEDS: COD LIVER OIL/ZINC OXIDE OINT 113 GM TUBE TOP SCH ×2 (09:08→20:46)
[2020-12-04] MEDS: ENOXAPARIN SODIUM 40 MG/0.4 ML DISP.SYRIN SQ SCH (09:10)
[2020-12-04 20:36] VITALS: BP 147/86
[2020-12-04] MEDS: MINERAL OIL/PETROLAT OPHT OINT 3.5 GM TUBE EACHEYE SCH (20:38)
[2020-12-04] MEDS: ATORVASTATIN 40 MG TABLET GT SCH (20:40)
[2020-12-04] MEDS: THIAMINE HCL 100 MG TABLET GT SCH (20:46)
[2020-12-05] MEDS: BLOOD SUGAR DIAGNOSTIC 1 EACH STRIP VI SCH ×4 (00:14→17:07)
[2020-12-05] MEDS: GLUCERNA 1.2 1000ML LIQUID GT PRN ×2 (00:14→16:01)
[2020-12-05] MEDS: INSULIN REGULAR, HUMAN 300 UNIT/3 ML VIAL SQ PRN ×4 (02:08→17:08)
[2020-12-05 07:53] VITALS: BP 169/95
[2020-12-05] MEDS: HYDROGEN PEROXIDE 3% 118 ML BOTTLE TP SCH ×2 (07:58→20:58)
[2020-12-05] MEDS: PHENOBARBITAL 97.2 MG GT SCH ×2 (08:20→21:37)
[2020-12-05] MEDS: DOCUSATE SODIUM 100 MG/10 ML LIQUID UDC GT SCH ×2 (08:20→21:29)
[2020-12-05] MEDS: TERAZOSIN 1 MG CAPSULE GT SCH (08:21)
[2020-12-05] MEDS: levETIRAcetam 500 MG/5 ML LIQUID UDC GT SCH ×2 (08:21→21:29)
[2020-12-05] MEDS: METOPROLOL TARTRATE 25 MG TABLET GT SCH ×2 (08:21→21:31)
[2020-12-05] MEDS: FAMOTIDINE 20 MG TABLET GT SCH ×2 (08:22→21:31)
[2020-12-05] MEDS: COD LIVER OIL/ZINC OXIDE OINT 113 GM TUBE TOP SCH ×2 (08:22→21:30)
[2020-12-05] MEDS: ENOXAPARIN SODIUM 40 MG/0.4 ML DISP.SYRIN SQ SCH (08:22)
[2020-12-05] MEDS: VITAMINS A AND D OINT TP SCH ×2 (08:22→21:30)
--- NOTE | 2020-12-05 14:00 | NUR ---
For Covid-19 test today per [facility] requirement,family notified.
[2020-12-05 18:10] VITALS: BP 148/67
[2020-12-05] MEDS: MINERAL OIL/PETROLAT OPHT OINT 3.5 GM TUBE EACHEYE SCH (21:29)
[2020-12-05] MEDS: ATORVASTATIN 40 MG TABLET GT SCH (21:30)
[2020-12-05] MEDS: THIAMINE HCL 100 MG TABLET GT SCH (21:37)
[2020-12-05 23:15] VITALS: BP 124/83
[2020-12-06] MEDS: BLOOD SUGAR DIAGNOSTIC 1 EACH STRIP VI SCH ×4 (00:14→17:53)
[2020-12-06] MEDS: INSULIN REGULAR, HUMAN 300 UNIT/3 ML VIAL SQ PRN ×3 (01:14→17:53)
[2020-12-06 07:19] VITALS: BP 159/90
[2020-12-06] MEDS: DOCUSATE SODIUM 100 MG/10 ML LIQUID UDC GT SCH ×2 (08:22→21:13)
[2020-12-06] MEDS: PHENOBARBITAL 97.2 MG GT SCH ×2 (08:22→21:13)
[2020-12-06] MEDS: TERAZOSIN 1 MG CAPSULE GT SCH (08:23)
[2020-12-06] MEDS: levETIRAcetam 500 MG/5 ML LIQUID UDC GT SCH ×2 (08:24→21:13)
[2020-12-06] MEDS: METOPROLOL TARTRATE 25 MG TABLET GT SCH ×2 (08:24→21:14)
[2020-12-06] MEDS: FAMOTIDINE 20 MG TABLET GT SCH ×2 (08:24→21:14)
[2020-12-06] MEDS: ENOXAPARIN SODIUM 40 MG/0.4 ML DISP.SYRIN SQ SCH (08:24)
[2020-12-06] MEDS: VITAMINS A AND D OINT TP SCH ×2 (08:25→21:17)
[2020-12-06] MEDS: COD LIVER OIL/ZINC OXIDE OINT 113 GM TUBE TOP SCH ×2 (08:25→21:17)
[2020-12-06] MEDS: HYDROGEN PEROXIDE 3% 118 ML BOTTLE TP SCH ×2 (09:20→21:10)
[2020-12-06 20:10] VITALS: BP 146/76
[2020-12-06] MEDS: MINERAL OIL/PETROLAT OPHT OINT 3.5 GM TUBE EACHEYE SCH (21:12)
[2020-12-06] MEDS: ATORVASTATIN 40 MG TABLET GT SCH (21:13)
[2020-12-06] MEDS: THIAMINE HCL 100 MG TABLET GT SCH (21:14)
[2020-12-06] MEDS: GLUCERNA 1.2 1000ML LIQUID GT PRN (23:17)
[2020-12-07] MEDS: INSULIN REGULAR, HUMAN 300 UNIT/3 ML VIAL SQ PRN ×5 (00:30→17:08)
[2020-12-07] MEDS: BLOOD SUGAR DIAGNOSTIC 1 EACH STRIP VI SCH ×4 (00:49→17:07)
[2020-12-07 07:28] VITALS: BP 161/92
--- NOTE | 2020-12-07 08:39 | NUR ---
Seen by Dr Rios with new orders noted and carried out.
[2020-12-07] MEDS: COD LIVER OIL/ZINC OXIDE OINT 113 GM TUBE TOP SCH ×2 (09:00→20:46)
[2020-12-07] MEDS: ENOXAPARIN SODIUM 40 MG/0.4 ML DISP.SYRIN SQ SCH (09:00)
[2020-12-07] MEDS: VITAMINS A AND D OINT TP SCH ×2 (09:00→20:46)
[2020-12-07] MEDS: HYDROGEN PEROXIDE 3% 118 ML BOTTLE TP SCH ×2 (09:14→21:03)
[2020-12-07] MEDS: TERAZOSIN 1 MG CAPSULE GT SCH (09:57)
[2020-12-07] MEDS: DOCUSATE SODIUM 100 MG/10 ML LIQUID UDC GT SCH ×2 (09:57→20:44)
[2020-12-07] MEDS: PHENOBARBITAL 97.2 MG GT SCH ×2 (09:57→20:44)
[2020-12-07] MEDS: levETIRAcetam 500 MG/5 ML LIQUID UDC GT SCH ×2 (09:58→20:44)
[2020-12-07] MEDS: FAMOTIDINE 20 MG TABLET GT SCH ×2 (09:58→20:45)
[2020-12-07] MEDS: METOPROLOL TARTRATE 25 MG TABLET GT SCH ×2 (09:58→20:45)
[2020-12-07 10:51] LABS: HEMATOCRIT 36.4 % (36.7-47.1); MEAN CORPUSCULAR HEMOGLOBIN 29.8 uug (23.8-33.4); MEAN CORPUSCULAR VOLUME 88.6 fL (73.0-96.2); PLATELET COUNT (AUTO) 229 K/uL (152-348)
[2020-12-07 10:57] LABS: ALANINE AMINOTRANSFERASE 34 U/L (16-63); ALKALINE PHOSPHATASE 114 U/L (50-136); ASPARTATE AMINOTRANSFERASE 18 U/L (15-37); BILIRUBIN,DIRECT 0.1 mg/dL (0.0-0.2); BILIRUBIN,TOTAL 0.2 mg/dL (0.2-1.0); CARBON DIOXIDE 32 mmol/L (21-32); CHLORIDE 98 mmol/L (98-107); CREATININE 0.5 mg/dL (0.6-1.3); GLUCOSE 167 mg/dL (74-106); MAGNESIUM 2.1 mg/dL (1.8-2.4); PHENOBARBITAL 21.3 ug/mL (15.0-39.0); PHOSPHOROUS 4.3 mg/dL (2.5-4.9); POTASSIUM 4.3 mmol/L (3.5-5.1); TOTAL PROTEIN, SERUM 7.1 g/dL (6.4-8.2); UREA NITROGEN, BLOOD 15 mg/dL (7-18)
[2020-12-07 12:00] VITALS: BP 148/81
[2020-12-07] MEDS: GLUCERNA 1.2 1000ML LIQUID GT PRN (13:04)
[2020-12-07 18:00] VITALS: BP 154/82
[2020-12-07 18:18] VITALS: BP 154/82
[2020-12-07] MEDS: MINERAL OIL/PETROLAT OPHT OINT 3.5 GM TUBE EACHEYE SCH (20:43)
[2020-12-07] MEDS: ATORVASTATIN 40 MG TABLET GT SCH (20:44)
[2020-12-07] MEDS: THIAMINE HCL 100 MG TABLET GT SCH (20:45)
[2020-12-07 20:56] VITALS: BP 158/86
[2020-12-08] MEDS: BLOOD SUGAR DIAGNOSTIC 1 EACH STRIP VI SCH ×5 (00:20→23:17)
[2020-12-08] MEDS: INSULIN REGULAR, HUMAN 300 UNIT/3 ML VIAL SQ PRN ×4 (05:59→23:18)
[2020-12-08] MEDS: GLUCERNA 1.2 1000ML LIQUID GT PRN (07:07)
[2020-12-08 07:25] VITALS: BP 161/79
[2020-12-08] MEDS: DOCUSATE SODIUM 100 MG/10 ML LIQUID UDC GT SCH ×2 (08:37→21:31)
[2020-12-08] MEDS: PHENOBARBITAL 97.2 MG GT SCH ×2 (08:38→21:40)
[2020-12-08] MEDS: TERAZOSIN 1 MG CAPSULE GT SCH (08:42)
[2020-12-08] MEDS: levETIRAcetam 500 MG/5 ML LIQUID UDC GT SCH ×2 (08:43→21:31)
[2020-12-08] MEDS: METOPROLOL TARTRATE 25 MG TABLET GT SCH ×2 (08:43→21:32)
[2020-12-08] MEDS: FAMOTIDINE 20 MG TABLET GT SCH ×2 (08:43→21:32)
[2020-12-08] MEDS: COD LIVER OIL/ZINC OXIDE OINT 113 GM TUBE TOP SCH ×2 (08:44→21:33)
[2020-12-08] MEDS: VITAMINS A AND D OINT TP SCH ×2 (09:00→21:33)
[2020-12-08] MEDS: HYDROGEN PEROXIDE 3% 118 ML BOTTLE TP SCH ×2 (09:00→21:04)
[2020-12-08] MEDS: ENOXAPARIN SODIUM 40 MG/0.4 ML DISP.SYRIN SQ SCH (09:07)
[2020-12-08 12:00] VITALS: BP 150/68
[2020-12-08] MEDS: ACETAMINOPHEN 650 MG/20.3 ML LIQUID UDC GT PRN ×2 (14:15→21:40)
[2020-12-08 18:27] VITALS: BP 148/85
--- NOTE | 2020-12-08 19:40 | NUR ---
Dr villalobos with new orders noted to start on baclofen 10 mg twice a day for increase spasticity.
[2020-12-08 20:00] VITALS: BP 142/93
--- NOTE | 2020-12-08 20:07 | NUR ---
Kylie linder's daughter notified regarding the new orders for baclofen 10 mg ,for muscle relaxer ,spasticity
[2020-12-08] MEDS ORDERED: BACLOFEN 10 MG TABLET GT SCH (21:00)
[2020-12-08] MEDS: MINERAL OIL/PETROLAT OPHT OINT 3.5 GM TUBE EACHEYE SCH (21:30)
[2020-12-08] MEDS: ATORVASTATIN 40 MG TABLET GT SCH (21:31)
[2020-12-08] MEDS: THIAMINE HCL 100 MG TABLET GT SCH (21:32)
[2020-12-09] MEDS: BLOOD SUGAR DIAGNOSTIC 1 EACH STRIP VI SCH ×3 (05:40→17:44)
[2020-12-09] MEDS: INSULIN REGULAR, HUMAN 300 UNIT/3 ML VIAL SQ PRN ×3 (05:41→17:45)
[2020-12-09 07:53] VITALS: BP 120/79
[2020-12-09] MEDS: DOCUSATE SODIUM 100 MG/10 ML LIQUID UDC GT SCH ×2 (08:29→21:00)
[2020-12-09] MEDS: BACLOFEN 10 MG TABLET GT SCH ×2 (08:35→21:00)
[2020-12-09] MEDS: TERAZOSIN 1 MG CAPSULE GT SCH (08:35)
[2020-12-09] MEDS: levETIRAcetam 500 MG/5 ML LIQUID UDC GT SCH ×2 (08:35→21:00)
[2020-12-09] MEDS: FAMOTIDINE 20 MG TABLET GT SCH ×2 (08:36→21:00)
[2020-12-09] MEDS: COD LIVER OIL/ZINC OXIDE OINT 113 GM TUBE TOP SCH ×2 (08:36→21:00)
[2020-12-09] MEDS: VITAMINS A AND D OINT TP SCH ×2 (08:36→21:00)
[2020-12-09] MEDS: METOPROLOL TARTRATE 25 MG TABLET GT SCH ×2 (08:36→21:00)
[2020-12-09] MEDS: ENOXAPARIN SODIUM 40 MG/0.4 ML DISP.SYRIN SQ SCH (08:38)
[2020-12-09] MEDS: PHENOBARBITAL 97.2 MG GT SCH ×2 (08:43→21:00)
[2020-12-09] MEDS: HYDROGEN PEROXIDE 3% 118 ML BOTTLE TP SCH ×2 (09:22→20:25)
--- NOTE | 2020-12-09 14:42 | NUR ---
SW notified patient's daughter Janis, via email, that the next IDT meeting for the patient has been scheduled for 12/14/2020 at 11am. DELANEY asked Janis to let this SW know if Janis would like to participate in the meeting by speaker phone.
[2020-12-09 20:16] VITALS: BP 128/78
[2020-12-09] MEDS: ATORVASTATIN 40 MG TABLET GT SCH (21:00)
[2020-12-09] MEDS: MINERAL OIL/PETROLAT OPHT OINT 3.5 GM TUBE EACHEYE SCH (21:00)
[2020-12-09] MEDS: THIAMINE HCL 100 MG TABLET GT SCH (21:00)
--- NOTE | 2020-12-09 21:56 | NUR ---
Patient's Father called and is requesting for the nurse to ask Dr. Rios (Neuro) to, " order a medication to stimulate my son's brain."
[2020-12-10] VITALS (9 sets, daily range): BP systolic 138–157; BP diastolic 61–87
[2020-12-10] MEDS: BLOOD SUGAR DIAGNOSTIC 1 EACH STRIP VI SCH ×5 (00:27→23:08)
[2020-12-10] MEDS: INSULIN REGULAR, HUMAN 300 UNIT/3 ML VIAL SQ PRN ×5 (00:30→23:11)
[2020-12-10] MEDS: levETIRAcetam 500 MG/5 ML LIQUID UDC GT SCH ×2 (08:34→21:40)
[2020-12-10] MEDS: BACLOFEN 10 MG TABLET GT SCH ×2 (08:34→21:44)
[2020-12-10] MEDS: FAMOTIDINE 20 MG TABLET GT SCH ×2 (08:34→21:45)
[2020-12-10] MEDS: METOPROLOL TARTRATE 25 MG TABLET GT SCH ×2 (08:34→21:45)
[2020-12-10] MEDS: DOCUSATE SODIUM 100 MG/10 ML LIQUID UDC GT SCH ×2 (08:34→21:40)
[2020-12-10] MEDS: PHENOBARBITAL 97.2 MG GT SCH ×2 (08:34→21:40)
[2020-12-10] MEDS: TERAZOSIN 1 MG CAPSULE GT SCH (08:34)
[2020-12-10] MEDS: VITAMINS A AND D OINT TP SCH ×2 (08:35→21:45)
[2020-12-10] MEDS: ENOXAPARIN SODIUM 40 MG/0.4 ML DISP.SYRIN SQ SCH (08:35)
[2020-12-10] MEDS: COD LIVER OIL/ZINC OXIDE OINT 113 GM TUBE TOP SCH ×2 (08:35→21:45)
[2020-12-10] MEDS: HYDROGEN PEROXIDE 3% 118 ML BOTTLE TP SCH ×2 (09:03→21:03)
[2020-12-10] MEDS: GLUCERNA 1.2 1000ML LIQUID GT PRN (09:38)
--- NOTE | 2020-12-10 10:20 | NUR ---
DR. LANCE WAS CALLED AND MESSAGE LEFT TO CALL BACK RE: PT'S FATHER REQUEST FOR A POSSIBILITY FOR DR. PRINGLE TO CONSIDER ORDERING A MEDICATION THAT STIMULATES PT'S BRAIN TO WAKE UP.
[2020-12-10] MEDS: ACETAMINOPHEN 650 MG/20.3 ML LIQUID UDC GT PRN (11:42)
--- NOTE | 2020-12-10 14:22 | NUR ---
FABY Montoya WAS NOTIFIED OF PT'S RR 28 TO 32X' WITH O2 SAT 97 AT 23% FIO2 AND NOTED AFEBRILE ,NOT CONSTIPATED NOT RETAINING URINE AND ALREADY PAIN MEDICATED WITH TYLENOL NOT MAKING ANY DEFERENCE AND WITH NEW ORDERS CARRIED OUT.
--- NOTE | 2020-12-10 14:40 | NUR ---
MESSAGE LEFT TO RESP. REPUBLICAN SARBJIT.
--- NOTE | 2020-12-10 15:56 | NUR ---
DELANEY received an email response back from Janis stating that she is available to participate in the IDT meeting on 12/14. DELANEY emailed Janis back, asking her to be available between 11am-12pm on 12/14 to receive the team's call during the meeting.
[2020-12-10 16:01] LABS: HEMATOCRIT 38.8 % (36.7-47.1); MEAN CORPUSCULAR HEMOGLOBIN 29.5 uug (23.8-33.4); MEAN CORPUSCULAR VOLUME 87.3 fL (73.0-96.2); PLATELET COUNT (AUTO) 248 K/uL (152-348)
[2020-12-10 16:10] LABS: ALANINE AMINOTRANSFERASE 31 U/L (16-63); ALKALINE PHOSPHATASE 119 U/L (50-136); ASPARTATE AMINOTRANSFERASE 17 U/L (15-37); BILIRUBIN,TOTAL 0.2 mg/dL (0.2-1.0); CARBON DIOXIDE 31 mmol/L (21-32); CHLORIDE 96 mmol/L (98-107); CREATININE 0.5 mg/dL (0.6-1.3); GLUCOSE 149 mg/dL (74-106); POTASSIUM 4.4 mmol/L (3.5-5.1); TOTAL PROTEIN, SERUM 7.3 g/dL (6.4-8.2); UREA NITROGEN, BLOOD 15 mg/dL (7-18)
--- NOTE | 2020-12-10 16:12 | NUR ---
FABY MontoyaWAS PAGED RE: CXR AND LAB RESULTS.HR. NOW 104X' AND RR 28X'.
--- NOTE | 2020-12-10 16:30 | NUR ---
FABY Montoya CALLED BACK AND AWARE OF RESULTS OF CXR AND LAB AND WITH NNO AND ASKED NURSE TO F/U WITH PRIMARY MD TO F/U TO ADJUST PAIN MEDICATION.PT. TURNED GENTLY ONLY SIDE TO SIDE CONDITION PERMITS AND MESSAGE LEFT TO REG. REGISTERED PUBLIC HEALTH NURSE TO ASSESS PT. FOR WOUND NUTRITIONAL NEEDS.
--- NOTE | 2020-12-10 16:54 | NUR ---
DR. CARINA RINCON WAS CALLED D/T DR. DEMARCO IS NOT THE PT'S DROzzie AND DR.SAM ELIZALDE SUPERVISOR COOK ROOM WAS PAGED.
[2020-12-10] MEDS: MINERAL OIL/PETROLAT OPHT OINT 3.5 GM TUBE EACHEYE SCH (21:40)
[2020-12-10] MEDS: ATORVASTATIN 40 MG TABLET GT SCH (21:44)
[2020-12-10] MEDS: THIAMINE HCL 100 MG TABLET GT SCH (21:45)
[2020-12-11] VITALS: BP 151/85
[2020-12-11] MEDS: GLUCERNA 1.2 1000ML LIQUID GT PRN (04:16)
[2020-12-11] MEDS: ACETAMINOPHEN 650 MG/20.3 ML LIQUID UDC GT PRN ×2 (04:37→21:30)
[2020-12-11] MEDS: BLOOD SUGAR DIAGNOSTIC 1 EACH STRIP VI SCH ×3 (05:25→17:30)
[2020-12-11] MEDS: INSULIN REGULAR, HUMAN 300 UNIT/3 ML VIAL SQ PRN ×3 (05:26→17:32)
[2020-12-11 05:34] VITALS: BP 158/82
[2020-12-11 07:49] VITALS: BP 160/87
[2020-12-11] MEDS: DOCUSATE SODIUM 100 MG/10 ML LIQUID UDC GT SCH ×2 (09:10→21:25)
[2020-12-11] MEDS: PHENOBARBITAL 97.2 MG GT SCH ×2 (09:10→21:25)
[2020-12-11] MEDS: FAMOTIDINE 20 MG TABLET GT SCH ×2 (09:12→21:25)
[2020-12-11] MEDS: BACLOFEN 10 MG TABLET GT SCH ×2 (09:12→21:25)
[2020-12-11] MEDS: TERAZOSIN 1 MG CAPSULE GT SCH (09:16)
[2020-12-11] MEDS: METOPROLOL TARTRATE 25 MG TABLET GT SCH ×2 (09:16→21:25)
[2020-12-11] MEDS: levETIRAcetam 500 MG/5 ML LIQUID UDC GT SCH ×2 (09:17→21:25)
[2020-12-11] MEDS: COD LIVER OIL/ZINC OXIDE OINT 113 GM TUBE TOP SCH ×2 (09:18→21:26)
[2020-12-11] MEDS: VITAMINS A AND D OINT TP SCH ×2 (09:18→21:30)
[2020-12-11] MEDS: ENOXAPARIN SODIUM 40 MG/0.4 ML DISP.SYRIN SQ SCH (09:18)
[2020-12-11] MEDS: HYDROGEN PEROXIDE 3% 118 ML BOTTLE TP SCH ×2 (09:35→21:00)
[2020-12-11 20:28] VITALS: BP 114/75
[2020-12-11 20:35] VITALS: BP 141/86
[2020-12-11] MEDS: MINERAL OIL/PETROLAT OPHT OINT 3.5 GM TUBE EACHEYE SCH (21:25)
[2020-12-11] MEDS: ATORVASTATIN 40 MG TABLET GT SCH (21:25)
[2020-12-11] MEDS: THIAMINE HCL 100 MG TABLET GT SCH (21:26)
[2020-12-12] VITALS: BP 155/77
[2020-12-12] MEDS: BLOOD SUGAR DIAGNOSTIC 1 EACH STRIP VI SCH ×4 (00:42→17:08)
[2020-12-12] MEDS: INSULIN REGULAR, HUMAN 300 UNIT/3 ML VIAL SQ PRN ×4 (00:47→17:14)
[2020-12-12] MEDS: GLUCERNA 1.2 1000ML LIQUID GT PRN (04:16)
[2020-12-12 05:34] VITALS: BP 140/83
[2020-12-12] MEDS: HYDROGEN PEROXIDE 3% 118 ML BOTTLE TP SCH ×2 (08:42→21:48)
[2020-12-12] MEDS: PHENOBARBITAL 97.2 MG GT SCH ×2 (09:08→21:44)
[2020-12-12] MEDS: DOCUSATE SODIUM 100 MG/10 ML LIQUID UDC GT SCH ×2 (09:08→21:38)
[2020-12-12] MEDS: VITAMINS A AND D OINT TP SCH ×2 (09:09→21:39)
[2020-12-12] MEDS: TERAZOSIN 1 MG CAPSULE GT SCH (09:09)
[2020-12-12] MEDS: BACLOFEN 10 MG TABLET GT SCH ×2 (09:09→21:38)
[2020-12-12] MEDS: levETIRAcetam 500 MG/5 ML LIQUID UDC GT SCH ×2 (09:09→21:38)
[2020-12-12] MEDS: COD LIVER OIL/ZINC OXIDE OINT 113 GM TUBE TOP SCH ×2 (09:09→21:39)
[2020-12-12] MEDS: METOPROLOL TARTRATE 25 MG TABLET GT SCH ×2 (09:09→21:38)
[2020-12-12] MEDS: FAMOTIDINE 20 MG TABLET GT SCH ×2 (09:09→21:38)
[2020-12-12] MEDS: ENOXAPARIN SODIUM 40 MG/0.4 ML DISP.SYRIN SQ SCH (09:15)
--- NOTE | 2020-12-12 12:19 | NUR ---
PT. WAS SEEN AND EXAMINED BY RIGOBERTO CANTU (SURGERY FOR DR. DAV IVY) AND WITH NEW ORDERS FOR WOUND HEALING .
[2020-12-12 20:57] VITALS: BP 140/90
[2020-12-12] MEDS: MINERAL OIL/PETROLAT OPHT OINT 3.5 GM TUBE EACHEYE SCH (21:38)
[2020-12-12] MEDS: ATORVASTATIN 40 MG TABLET GT SCH (21:38)
[2020-12-12] MEDS: THIAMINE HCL 100 MG TABLET GT SCH (21:38)
[2020-12-13] VITALS: BP 136/85
[2020-12-13] MEDS: INSULIN REGULAR, HUMAN 300 UNIT/3 ML VIAL SQ PRN ×4 (00:30→16:58)
[2020-12-13] MEDS: BLOOD SUGAR DIAGNOSTIC 1 EACH STRIP VI SCH ×4 (00:48→16:55)
[2020-12-13] MEDS: GLUCERNA 1.2 1000ML LIQUID GT PRN ×2 (01:06→15:13)
[2020-12-13 05:00] VITALS: BP 132/80
[2020-12-13 07:44] VITALS: BP 153/84
[2020-12-13] MEDS: DOCUSATE SODIUM 100 MG/10 ML LIQUID UDC GT SCH ×2 (08:33→21:23)
[2020-12-13] MEDS: TERAZOSIN 1 MG CAPSULE GT SCH (08:34)
[2020-12-13] MEDS: levETIRAcetam 500 MG/5 ML LIQUID UDC GT SCH ×2 (08:35→21:26)
[2020-12-13] MEDS: BACLOFEN 10 MG TABLET GT SCH ×2 (08:37→21:26)
[2020-12-13] MEDS: FAMOTIDINE 20 MG TABLET GT SCH ×2 (08:38→21:26)
[2020-12-13] MEDS: METOPROLOL TARTRATE 25 MG TABLET GT SCH ×2 (08:38→21:26)
[2020-12-13] MEDS: ZINC SULFATE 220 MG CAPSULE PO SCH (08:39)
[2020-12-13] MEDS: ASCORBIC ACID 500 MG TABLET GT SCH (08:39)
[2020-12-13] MEDS: ENOXAPARIN SODIUM 40 MG/0.4 ML DISP.SYRIN SQ SCH (08:40)
[2020-12-13] MEDS: VITAMINS A AND D OINT TP SCH ×2 (08:41→21:27)
[2020-12-13] MEDS: COD LIVER OIL/ZINC OXIDE OINT 113 GM TUBE TOP SCH ×2 (08:41→21:27)
[2020-12-13] MEDS: HYDROGEN PEROXIDE 3% 118 ML BOTTLE TP SCH ×2 (08:49→21:15)
[2020-12-13] MEDS: PHENOBARBITAL 97.2 MG GT SCH ×2 (09:02→21:23)
--- NOTE | 2020-12-13 13:00 | NUR ---
SEEN BY FABY MontoyaAND WITH NNO AND AWARE OF TACHYCARDIA AND RR ELEVATED ,AND WILL F/U WITH PRIMARY MD .
--- NOTE | 2020-12-13 13:30 | NUR ---
NEW ORDER FROM FABY MOREIRA P.Polo CARRIED OUT RECOMMENDED BY REG. DOCTOR NATUROPATHIC BHARATI FOR QUINTIN ONE PACKET BID X 14 DAYS FOR WOUND HEALING.
[2020-12-13] MEDS ORDERED: COVID-19 VACC,MRNA(MODERNA)/PF 100 MCG/0.5 ML VIAL IM ONE (14:00)
--- NOTE | 2020-12-13 14:26 | NUR ---
DR. CARMEL SIMON(PHOTOVOLTAIC TECHNICIAN FOR DR. LIM) WAS NOTIFIED RE:TACHYCARDIA (SEE RECORDS) AND AWARE OF MEDICATIONS AND STATED THAT HE WILL CHECK ON HIM TO REASSESS CONDITION.
--- NOTE | 2020-12-13 14:30 | NUR ---
DR. PRINGLE (NEUROLOGIST ) WAS CALLED RE: REQUEST FROM PT'S FATHER FOR MEDICATION TO STIMULATE BRAIN AND HE STATED THAT HE WILL CALL BACK WITH AN ANSWER D/T PT'S TACHYCARDIA AND RISK FOR SEIZURE IS IN THE WAY IN ORDER FOR HIM TO PROCEED TO START PT. ON BRAIN STIMULATION MEDICATION .DR. PRINGLE AWARE THAT PT. WILL BE ASSESSED BY DR. CARMEL SIMON RE:TACHYCARDIA.
--- NOTE | 2020-12-13 15:30 | NUR ---
PT. REMAINS AFEBRILE AND WITH NO A/R TO MODERNA VACCINE #2 ADMINISTERED BY HEALTH NURSE (SEE RECORD) ADMINISTERED ON RT ARM.
[2020-12-13] MEDS: ACETAMINOPHEN 650 MG/20.3 ML LIQUID UDC GT PRN (16:55)
[2020-12-13 20:20] VITALS: BP 139/83
[2020-12-13] MEDS: MINERAL OIL/PETROLAT OPHT OINT 3.5 GM TUBE EACHEYE SCH (21:23)
[2020-12-13] MEDS: ARGININE/GLUTAMINE/CALCIUM BMB 1 EACH POWD.PACK GT SCH (21:26)
[2020-12-13] MEDS: THIAMINE HCL 100 MG TABLET GT SCH (21:26)
[2020-12-13] MEDS: ATORVASTATIN 40 MG TABLET GT SCH (21:26)
[2020-12-14] VITALS: BP 142/72
[2020-12-14] MEDS: BLOOD SUGAR DIAGNOSTIC 1 EACH STRIP VI SCH ×5 (00:05→23:18)
[2020-12-14] MEDS: INSULIN REGULAR, HUMAN 300 UNIT/3 ML VIAL SQ PRN ×5 (00:07→23:19)
[2020-12-14 06:00] VITALS: BP 134/79
[2020-12-14 06:50] LABS: HEMATOCRIT 37.9 % (36.7-47.1); MEAN CORPUSCULAR HEMOGLOBIN 29.6 uug (23.8-33.4); MEAN CORPUSCULAR VOLUME 88.7 fL (73.0-96.2); PLATELET COUNT (AUTO) 251 K/uL (152-348)
[2020-12-14 07:08] LABS: ALANINE AMINOTRANSFERASE 25 U/L (16-63); ALKALINE PHOSPHATASE 116 U/L (50-136); ASPARTATE AMINOTRANSFERASE 13 U/L (15-37); BILIRUBIN,TOTAL 0.2 mg/dL (0.2-1.0); CARBON DIOXIDE 29 mmol/L (21-32); CHLORIDE 99 mmol/L (98-107); CREATININE 0.4 mg/dL (0.6-1.3); GLUCOSE 160 mg/dL (74-106); POTASSIUM 4.2 mmol/L (3.5-5.1); UREA NITROGEN, BLOOD 20 mg/dL (7-18)
[2020-12-14 07:45] VITALS: BP 159/93
[2020-12-14] MEDS: HYDROGEN PEROXIDE 3% 118 ML BOTTLE TP SCH ×2 (09:00→20:06)
[2020-12-14] MEDS: DOCUSATE SODIUM 100 MG/10 ML LIQUID UDC GT SCH ×2 (09:25→21:54)
[2020-12-14] MEDS: PHENOBARBITAL 97.2 MG GT SCH ×2 (09:25→21:54)
[2020-12-14] MEDS: TERAZOSIN 1 MG CAPSULE GT SCH (09:25)
[2020-12-14] MEDS: BACLOFEN 10 MG TABLET GT SCH ×2 (09:25→21:55)
[2020-12-14] MEDS: ARGININE/GLUTAMINE/CALCIUM BMB 1 EACH POWD.PACK GT SCH ×2 (09:25→21:54)
[2020-12-14] MEDS: levETIRAcetam 500 MG/5 ML LIQUID UDC GT SCH ×2 (09:25→21:54)
[2020-12-14] MEDS: ASCORBIC ACID 500 MG TABLET GT SCH (09:26)
[2020-12-14] MEDS: COD LIVER OIL/ZINC OXIDE OINT 113 GM TUBE TOP SCH ×2 (09:26→21:57)
[2020-12-14] MEDS: ZINC SULFATE 220 MG CAPSULE PO SCH (09:26)
[2020-12-14] MEDS: ENOXAPARIN SODIUM 40 MG/0.4 ML DISP.SYRIN SQ SCH (09:26)
[2020-12-14] MEDS: VITAMINS A AND D OINT TP SCH ×2 (09:26→21:57)
[2020-12-14] MEDS: FAMOTIDINE 20 MG TABLET GT SCH ×2 (09:26→21:56)
[2020-12-14] MEDS: METOPROLOL TARTRATE 25 MG TABLET GT SCH ×2 (09:26→21:56)
--- NOTE | 2020-12-14 15:09 | NUR ---
INTERDISCIPLINARY PLAN OF CARE CONFERENCE was held today. Patient's daughter Janis participated in the meeting today by speaker phone. Dr. Peralta and the Interdisciplinary Team reviewed the current plan of care in detail. RN reported on patient's medical condition, neurology treatment plan, and ongoing wound treatment. See RN IDT conference notes. No major changes in medical condition were reported by nursing or by any of the other disciplines. See all other disciplines IDT notes and physician's progress notes for additional details. Janis stated not having any questions at this time, and being content with the current plan of care.
--- NOTE | 2020-12-14 19:00 | NUR ---
Pt afebrile,no adverse reaction noted from the Moderna vaccine.on close observation.
[2020-12-14 20:09] VITALS: BP 144/81
[2020-12-14] MEDS: MINERAL OIL/PETROLAT OPHT OINT 3.5 GM TUBE EACHEYE SCH (21:53)
[2020-12-14] MEDS: ATORVASTATIN 40 MG TABLET GT SCH (21:55)
[2020-12-14] MEDS: THIAMINE HCL 100 MG TABLET GT SCH (21:56)
--- NOTE | 2020-12-14 22:52 | NUR ---
S/p Moderna Vaccine #2 given to patient,patient is afebrile, no adverse reactions noted, no redness or swelling from injection site.
--- NOTE | 2020-12-15 03:00 | NUR ---
Patient will have Covid-19 test today per [facility] requirement.
[2020-12-15] MEDS: GLUCERNA 1.2 1000ML LIQUID GT PRN (04:35)
[2020-12-15] MEDS: INSULIN REGULAR, HUMAN 300 UNIT/3 ML VIAL SQ PRN ×3 (05:39→23:07)
[2020-12-15] MEDS: BLOOD SUGAR DIAGNOSTIC 1 EACH STRIP VI SCH ×4 (05:39→23:07)
[2020-12-15 05:40] VITALS: BP 138/80
[2020-12-15 07:48] VITALS: BP 159/67
[2020-12-15] MEDS: PHENOBARBITAL 97.2 MG GT SCH ×2 (08:21→21:46)
[2020-12-15] MEDS: DOCUSATE SODIUM 100 MG/10 ML LIQUID UDC GT SCH ×2 (08:21→21:46)
[2020-12-15] MEDS: TERAZOSIN 1 MG CAPSULE GT SCH (08:22)
[2020-12-15] MEDS: ENOXAPARIN SODIUM 40 MG/0.4 ML DISP.SYRIN SQ SCH (08:26)
[2020-12-15] MEDS: HYDROGEN PEROXIDE 3% 118 ML BOTTLE TP SCH ×2 (08:26→21:07)
[2020-12-15] MEDS: COD LIVER OIL/ZINC OXIDE OINT 113 GM TUBE TOP SCH ×2 (08:28→21:47)
[2020-12-15] MEDS: BACLOFEN 10 MG TABLET GT SCH ×2 (08:32→21:46)
[2020-12-15] MEDS: ARGININE/GLUTAMINE/CALCIUM BMB 1 EACH POWD.PACK GT SCH ×2 (08:32→21:46)
[2020-12-15] MEDS: ZINC SULFATE 220 MG CAPSULE PO SCH (08:32)
[2020-12-15] MEDS: VITAMINS A AND D OINT TP SCH ×2 (08:32→21:47)
[2020-12-15] MEDS: ASCORBIC ACID 500 MG TABLET GT SCH (08:32)
[2020-12-15] MEDS: FAMOTIDINE 20 MG TABLET GT SCH ×2 (08:32→21:47)
[2020-12-15] MEDS: levETIRAcetam 500 MG/5 ML LIQUID UDC GT SCH ×2 (08:32→21:46)
[2020-12-15] MEDS: METOPROLOL TARTRATE 25 MG TABLET GT SCH ×2 (08:32→21:47)
[2020-12-15 12:00] VITALS: BP 145/78
--- NOTE | 2020-12-15 17:58 | NUR ---
Covid 19 test done today,Pt's daughter request to be only call for results.
[2020-12-15 18:00] VITALS: BP 144/77
--- NOTE | 2020-12-15 18:51 | NUR ---
No adverse reaction from the Moderna vaccine,on close observation.
[2020-12-15 20:16] VITALS: BP 141/86
[2020-12-15] MEDS: ATORVASTATIN 40 MG TABLET GT SCH (21:46)
[2020-12-15] MEDS: MINERAL OIL/PETROLAT OPHT OINT 3.5 GM TUBE EACHEYE SCH (21:46)
[2020-12-15] MEDS: THIAMINE HCL 100 MG TABLET GT SCH (21:47)
--- NOTE | 2020-12-15 22:32 | NUR ---
Patient is afebrile, RR: 22, trach is intact and patent, no respiratory distress noted. No adverse reactions for Moderna Vaccine # 2, no swelling or redness on the injection site, turned and repositioned, kept clean and comfortable, will continue monitor.
--- NOTE | 2020-12-15 22:46 | NUR ---
Afebrile, no adverse reactions from Moderna Vaccine #2, no redness or swelling on the injection site, will continue monitor.
[2020-12-16] MEDS: GLUCERNA 1.2 1000ML LIQUID GT PRN (01:00)
--- NOTE | 2020-12-16 04:38 | NUR ---
Renewed treatment to sacral in evolution X 30 days then re-eval.
[2020-12-16] MEDS: BLOOD SUGAR DIAGNOSTIC 1 EACH STRIP VI SCH ×3 (05:44→17:16)
[2020-12-16] MEDS: INSULIN REGULAR, HUMAN 300 UNIT/3 ML VIAL SQ PRN ×2 (05:46→12:15)
[2020-12-16 05:54] VITALS: BP 142/84
[2020-12-16 07:49] VITALS: BP 140/78
[2020-12-16] MEDS: DOCUSATE SODIUM 100 MG/10 ML LIQUID UDC GT SCH ×2 (08:31→21:37)
[2020-12-16] MEDS: PHENOBARBITAL 97.2 MG GT SCH ×2 (08:31→21:40)
[2020-12-16] MEDS: TERAZOSIN 1 MG CAPSULE GT SCH (08:33)
[2020-12-16] MEDS: ARGININE/GLUTAMINE/CALCIUM BMB 1 EACH POWD.PACK GT SCH ×2 (08:33→21:40)
[2020-12-16] MEDS: levETIRAcetam 500 MG/5 ML LIQUID UDC GT SCH ×2 (08:34→21:46)
[2020-12-16] MEDS: BACLOFEN 10 MG TABLET GT SCH ×2 (08:34→21:47)
[2020-12-16] MEDS: ZINC SULFATE 220 MG CAPSULE PO SCH (08:34)
[2020-12-16] MEDS: FAMOTIDINE 20 MG TABLET GT SCH ×2 (08:34→21:48)
[2020-12-16] MEDS: METOPROLOL TARTRATE 25 MG TABLET GT SCH ×2 (08:34→21:48)
[2020-12-16] MEDS: ASCORBIC ACID 500 MG TABLET GT SCH (08:34)
[2020-12-16] MEDS: ENOXAPARIN SODIUM 40 MG/0.4 ML DISP.SYRIN SQ SCH (08:35)
[2020-12-16] MEDS: VITAMINS A AND D OINT TP SCH ×2 (08:35→21:48)
[2020-12-16] MEDS: COD LIVER OIL/ZINC OXIDE OINT 113 GM TUBE TOP SCH ×2 (08:35→21:48)
[2020-12-16] MEDS: HYDROGEN PEROXIDE 3% 118 ML BOTTLE TP SCH ×2 (09:56→20:59)
[2020-12-16 12:00] VITALS: BP 138/76
[2020-12-16 18:00] VITALS: BP 147/81
--- NOTE | 2020-12-16 19:03 | NUR ---
S/P COVID-19 vaccination with Moderna Covid-19 vaccine. No adverse effects noted at this time. Will continue to monitor.
[2020-12-16 20:22] VITALS: BP 138/84
--- NOTE | 2020-12-16 21:15 | NUR ---
Patient is afebrile, no signs of adverse reactions for Moderna Covid 19 vaccine #2, No redness or swelling noted on the injection site, no signs of any distress noted, kept patient clean and comfortable.
[2020-12-16] MEDS: MINERAL OIL/PETROLAT OPHT OINT 3.5 GM TUBE EACHEYE SCH (21:37)
[2020-12-16] MEDS: ATORVASTATIN 40 MG TABLET GT SCH (21:47)
[2020-12-16] MEDS: THIAMINE HCL 100 MG TABLET GT SCH (21:48)
[2020-12-17] MEDS: BLOOD SUGAR DIAGNOSTIC 1 EACH STRIP VI SCH ×5 (00:24→23:13)
[2020-12-17] MEDS: INSULIN REGULAR, HUMAN 300 UNIT/3 ML VIAL SQ PRN ×4 (05:43→23:13)
[2020-12-17 06:12] VITALS: BP 142/86
[2020-12-17 07:45] VITALS: BP 150/90
[2020-12-17] MEDS: ENOXAPARIN SODIUM 40 MG/0.4 ML DISP.SYRIN SQ SCH (08:41)
[2020-12-17] MEDS: ZINC SULFATE 220 MG CAPSULE PO SCH (08:42)
[2020-12-17] MEDS: DOCUSATE SODIUM 100 MG/10 ML LIQUID UDC GT SCH ×2 (08:42→20:20)
[2020-12-17] MEDS: PHENOBARBITAL 97.2 MG GT SCH ×2 (08:42→20:21)
[2020-12-17] MEDS: BACLOFEN 10 MG TABLET GT SCH ×2 (08:43→20:21)
[2020-12-17] MEDS: levETIRAcetam 500 MG/5 ML LIQUID UDC GT SCH ×2 (08:43→20:21)
[2020-12-17] MEDS: TERAZOSIN 1 MG CAPSULE GT SCH (08:43)
[2020-12-17] MEDS: ASCORBIC ACID 500 MG TABLET GT SCH (08:43)
[2020-12-17] MEDS: FAMOTIDINE 20 MG TABLET GT SCH ×2 (08:43→20:21)
[2020-12-17] MEDS: METOPROLOL TARTRATE 25 MG TABLET GT SCH ×2 (08:43→20:21)
[2020-12-17] MEDS: ARGININE/GLUTAMINE/CALCIUM BMB 1 EACH POWD.PACK GT SCH ×2 (08:43→20:21)
[2020-12-17] MEDS: COD LIVER OIL/ZINC OXIDE OINT 113 GM TUBE TOP SCH ×2 (08:44→20:21)
[2020-12-17] MEDS: VITAMINS A AND D OINT TP SCH ×2 (08:45→20:21)
[2020-12-17] MEDS: HYDROGEN PEROXIDE 3% 118 ML BOTTLE TP SCH ×2 (09:50→19:38)
[2020-12-17] MEDS: MINERAL OIL/PETROLAT OPHT OINT 3.5 GM TUBE EACHEYE SCH (20:20)
[2020-12-17] MEDS: ATORVASTATIN 40 MG TABLET GT SCH (20:21)
[2020-12-17] MEDS: THIAMINE HCL 100 MG TABLET GT SCH (20:21)
[2020-12-17 22:08] VITALS: BP 131/85
[2020-12-18 00:13] VITALS: BP 129/81
[2020-12-18] MEDS: GLUCERNA 1.2 1000ML LIQUID GT PRN ×2 (01:13→17:34)
[2020-12-18] MEDS: BLOOD SUGAR DIAGNOSTIC 1 EACH STRIP VI SCH ×4 (05:20→23:09)
[2020-12-18] MEDS: INSULIN REGULAR, HUMAN 300 UNIT/3 ML VIAL SQ PRN ×3 (05:23→23:10)
[2020-12-18 06:01] VITALS: BP 138/85
[2020-12-18 07:50] VITALS: BP 172/97
[2020-12-18] MEDS: DOCUSATE SODIUM 100 MG/10 ML LIQUID UDC GT SCH ×2 (08:47→21:13)
[2020-12-18] MEDS: ZINC SULFATE 220 MG CAPSULE PO SCH (08:47)
[2020-12-18] MEDS: ARGININE/GLUTAMINE/CALCIUM BMB 1 EACH POWD.PACK GT SCH ×2 (08:47→21:13)
[2020-12-18] MEDS: FAMOTIDINE 20 MG TABLET GT SCH ×2 (08:47→21:13)
[2020-12-18] MEDS: ASCORBIC ACID 500 MG TABLET GT SCH (08:47)
[2020-12-18] MEDS: levETIRAcetam 500 MG/5 ML LIQUID UDC GT SCH ×2 (08:47→21:13)
[2020-12-18] MEDS: PHENOBARBITAL 97.2 MG GT SCH ×2 (08:47→21:13)
[2020-12-18] MEDS: BACLOFEN 10 MG TABLET GT SCH ×2 (08:47→21:13)
[2020-12-18] MEDS: METOPROLOL TARTRATE 25 MG TABLET GT SCH ×2 (08:48→21:13)
[2020-12-18] MEDS: TERAZOSIN 1 MG CAPSULE GT SCH (08:48)
[2020-12-18] MEDS: COD LIVER OIL/ZINC OXIDE OINT 113 GM TUBE TOP SCH ×2 (08:48→21:13)
[2020-12-18] MEDS: ENOXAPARIN SODIUM 40 MG/0.4 ML DISP.SYRIN SQ SCH (08:54)
[2020-12-18] MEDS: VITAMINS A AND D OINT TP SCH ×2 (08:55→21:13)
[2020-12-18] MEDS: HYDROGEN PEROXIDE 3% 118 ML BOTTLE TP SCH ×2 (09:00→20:15)
[2020-12-18] MEDS: ACETAMINOPHEN 650 MG/20.3 ML LIQUID UDC GT PRN (11:37)
[2020-12-18 17:17] VITALS: BP 140/76
[2020-12-18] MEDS: MINERAL OIL/PETROLAT OPHT OINT 3.5 GM TUBE EACHEYE SCH (21:13)
[2020-12-18] MEDS: THIAMINE HCL 100 MG TABLET GT SCH (21:13)
[2020-12-18] MEDS: ATORVASTATIN 40 MG TABLET GT SCH (21:13)
[2020-12-18 22:00] VITALS: BP 136/78
[2020-12-19 00:04] VITALS: BP 138/87
[2020-12-19] MEDS: BLOOD SUGAR DIAGNOSTIC 1 EACH STRIP VI SCH ×4 (05:05→23:14)
[2020-12-19] MEDS: INSULIN REGULAR, HUMAN 300 UNIT/3 ML VIAL SQ PRN ×4 (05:05→23:16)
[2020-12-19] MEDS: GLUCERNA 1.2 1000ML LIQUID GT PRN ×2 (05:41→22:45)
[2020-12-19 06:09] VITALS: BP 148/88
[2020-12-19 08:01] VITALS: BP 148/91
[2020-12-19] MEDS: DOCUSATE SODIUM 100 MG/10 ML LIQUID UDC GT SCH ×2 (08:55→20:18)
[2020-12-19] MEDS: ARGININE/GLUTAMINE/CALCIUM BMB 1 EACH POWD.PACK GT SCH ×2 (08:56→20:18)
[2020-12-19] MEDS: PHENOBARBITAL 97.2 MG GT SCH ×2 (08:56→20:18)
[2020-12-19] MEDS: levETIRAcetam 500 MG/5 ML LIQUID UDC GT SCH ×2 (08:56→20:18)
[2020-12-19] MEDS: TERAZOSIN 1 MG CAPSULE GT SCH (08:56)
[2020-12-19] MEDS: FAMOTIDINE 20 MG TABLET GT SCH ×2 (08:57→20:18)
[2020-12-19] MEDS: ZINC SULFATE 220 MG CAPSULE PO SCH (08:57)
[2020-12-19] MEDS: BACLOFEN 10 MG TABLET GT SCH ×2 (08:57→20:18)
[2020-12-19] MEDS: ASCORBIC ACID 500 MG TABLET GT SCH (08:57)
[2020-12-19] MEDS: METOPROLOL TARTRATE 25 MG TABLET GT SCH ×2 (08:57→20:18)
[2020-12-19] MEDS: ENOXAPARIN SODIUM 40 MG/0.4 ML DISP.SYRIN SQ SCH (08:58)
[2020-12-19] MEDS: VITAMINS A AND D OINT TP SCH ×2 (08:59→20:18)
[2020-12-19] MEDS: COD LIVER OIL/ZINC OXIDE OINT 113 GM TUBE TOP SCH ×2 (08:59→20:18)
[2020-12-19] MEDS: HYDROGEN PEROXIDE 3% 118 ML BOTTLE TP SCH ×2 (09:05→21:00)
[2020-12-19 18:01] VITALS: BP 152/73
[2020-12-19] MEDS: MINERAL OIL/PETROLAT OPHT OINT 3.5 GM TUBE EACHEYE SCH (20:18)
[2020-12-19] MEDS: THIAMINE HCL 100 MG TABLET GT SCH (20:18)
[2020-12-19] MEDS: ATORVASTATIN 40 MG TABLET GT SCH (20:18)
[2020-12-19 23:09] VITALS: BP 148/80
[2020-12-20 00:33] VITALS: BP 132/80
[2020-12-20] MEDS: BLOOD SUGAR DIAGNOSTIC 1 EACH STRIP VI SCH ×3 (05:34→17:12)
[2020-12-20] MEDS: INSULIN REGULAR, HUMAN 300 UNIT/3 ML VIAL SQ PRN ×3 (05:35→17:12)
[2020-12-20 07:31] VITALS: BP 154/89
[2020-12-20] MEDS: HYDROGEN PEROXIDE 3% 118 ML BOTTLE TP SCH ×2 (08:45→21:29)
[2020-12-20] MEDS: DOCUSATE SODIUM 100 MG/10 ML LIQUID UDC GT SCH ×2 (08:55→20:46)
[2020-12-20] MEDS: PHENOBARBITAL 97.2 MG GT SCH ×2 (08:56→20:46)
[2020-12-20] MEDS: METOPROLOL TARTRATE 25 MG TABLET GT SCH ×2 (08:57→20:47)
[2020-12-20] MEDS: BACLOFEN 10 MG TABLET GT SCH ×2 (08:57→20:47)
[2020-12-20] MEDS: levETIRAcetam 500 MG/5 ML LIQUID UDC GT SCH ×2 (08:57→20:47)
[2020-12-20] MEDS: ARGININE/GLUTAMINE/CALCIUM BMB 1 EACH POWD.PACK GT SCH ×2 (08:57→20:46)
[2020-12-20] MEDS: TERAZOSIN 1 MG CAPSULE GT SCH (08:57)
[2020-12-20] MEDS: FAMOTIDINE 20 MG TABLET GT SCH ×2 (08:57→20:47)
[2020-12-20] MEDS: ASCORBIC ACID 500 MG TABLET GT SCH (08:57)
[2020-12-20] MEDS: ZINC SULFATE 220 MG CAPSULE PO SCH (08:58)
[2020-12-20] MEDS: COD LIVER OIL/ZINC OXIDE OINT 113 GM TUBE TOP SCH ×2 (08:59→20:48)
[2020-12-20] MEDS: ENOXAPARIN SODIUM 40 MG/0.4 ML DISP.SYRIN SQ SCH (08:59)
[2020-12-20] MEDS: VITAMINS A AND D OINT TP SCH ×2 (08:59→20:48)
[2020-12-20] MEDS: GLUCERNA 1.2 1000ML LIQUID GT PRN (12:46)
--- NOTE | 2020-12-20 17:10 | NUR ---
SEEN BY FABY Montoya AND O.
[2020-12-20 18:01] VITALS: BP 148/71
[2020-12-20] MEDS: ACETAMINOPHEN 650 MG/20.3 ML LIQUID UDC GT PRN ×2 (20:00→23:00)
[2020-12-20] MEDS: MINERAL OIL/PETROLAT OPHT OINT 3.5 GM TUBE EACHEYE SCH (20:46)
[2020-12-20] MEDS: ATORVASTATIN 40 MG TABLET GT SCH (20:47)
[2020-12-20] MEDS: THIAMINE HCL 100 MG TABLET GT SCH (20:47)
[2020-12-20 23:07] VITALS: BP_SYST 120; BP_SYST 155; BP_DIAS 70; BP_DIAS 82
[2020-12-21] VITALS: BP 140/72
[2020-12-21] MEDS: BLOOD SUGAR DIAGNOSTIC 1 EACH STRIP VI SCH ×4 (00:18→17:28)
[2020-12-21] MEDS: INSULIN REGULAR, HUMAN 300 UNIT/3 ML VIAL SQ PRN ×4 (00:19→17:33)
[2020-12-21] MEDS: ACETAMINOPHEN 650 MG/20.3 ML LIQUID UDC GT PRN (00:24)
[2020-12-21] MEDS: GLUCERNA 1.2 1000ML LIQUID GT PRN (03:53)
[2020-12-21 06:09] VITALS: BP 149/79
[2020-12-21 07:27] VITALS: BP 163/88
[2020-12-21] MEDS: DOCUSATE SODIUM 100 MG/10 ML LIQUID UDC GT SCH ×2 (08:32→21:36)
[2020-12-21] MEDS: PHENOBARBITAL 97.2 MG GT SCH ×2 (08:33→21:36)
[2020-12-21] MEDS: FAMOTIDINE 20 MG TABLET GT SCH ×2 (08:35→21:47)
[2020-12-21] MEDS: levETIRAcetam 500 MG/5 ML LIQUID UDC GT SCH ×2 (08:35→21:44)
[2020-12-21] MEDS: METOPROLOL TARTRATE 25 MG TABLET GT SCH ×2 (08:35→21:47)
[2020-12-21] MEDS: BACLOFEN 10 MG TABLET GT SCH ×2 (08:35→21:46)
[2020-12-21] MEDS: TERAZOSIN 1 MG CAPSULE GT SCH (08:35)
[2020-12-21] MEDS: ASCORBIC ACID 500 MG TABLET GT SCH (08:35)
[2020-12-21] MEDS: ARGININE/GLUTAMINE/CALCIUM BMB 1 EACH POWD.PACK GT SCH ×2 (08:35→21:44)
[2020-12-21] MEDS: COD LIVER OIL/ZINC OXIDE OINT 113 GM TUBE TOP SCH ×2 (08:36→21:49)
[2020-12-21] MEDS: ZINC SULFATE 220 MG CAPSULE PO SCH (08:36)
[2020-12-21] MEDS: VITAMINS A AND D OINT TP SCH ×2 (08:36→21:49)
[2020-12-21] MEDS: ENOXAPARIN SODIUM 40 MG/0.4 ML DISP.SYRIN SQ SCH (08:40)
[2020-12-21] MEDS: HYDROGEN PEROXIDE 3% 118 ML BOTTLE TP SCH ×2 (09:14→21:19)
--- NOTE | 2020-12-21 12:40 | NUR ---
Covid 19 test done today.pt's family request to be call only for results.
--- NOTE | 2020-12-21 17:07 | NUR ---
Seen and examined by Dr Langley with new orders noted.
--- NOTE | 2020-12-21 17:12 | NUR ---
Seen and examined by Dr Rios ,with new orders noted.
--- NOTE | 2020-12-21 17:25 | NUR ---
Spoke to Arden,pt's father ,notified him regarding Dr Rios new orders for Amantadine.
[2020-12-21 20:53] VITALS: BP 167/83
[2020-12-21] MEDS ORDERED: AMANTADINE HCL 100 MG CAPSULE GT SCH (21:00)
[2020-12-21] MEDS: MINERAL OIL/PETROLAT OPHT OINT 3.5 GM TUBE EACHEYE SCH (21:36)
[2020-12-21] MEDS: ATORVASTATIN 40 MG TABLET GT SCH (21:46)
[2020-12-21] MEDS: AMANTADINE HCL 100 MG CAPSULE GT SCH (21:48)
[2020-12-21] MEDS: THIAMINE HCL 100 MG TABLET GT SCH (21:49)
[2020-12-22] MEDS: BLOOD SUGAR DIAGNOSTIC 1 EACH STRIP VI SCH ×5 (00:18→23:22)
[2020-12-22] MEDS: INSULIN REGULAR, HUMAN 300 UNIT/3 ML VIAL SQ PRN ×4 (00:19→23:23)
[2020-12-22] MEDS: GLUCERNA 1.2 1000ML LIQUID GT PRN (01:23)
[2020-12-22 07:25] VITALS: BP 145/95
[2020-12-22] MEDS: HYDROGEN PEROXIDE 3% 118 ML BOTTLE TP SCH ×2 (08:30→20:57)
[2020-12-22] MEDS: DOCUSATE SODIUM 100 MG/10 ML LIQUID UDC GT SCH ×2 (08:39→21:00)
[2020-12-22] MEDS: levETIRAcetam 500 MG/5 ML LIQUID UDC GT SCH ×2 (08:39→21:00)
[2020-12-22] MEDS: ARGININE/GLUTAMINE/CALCIUM BMB 1 EACH POWD.PACK GT SCH ×2 (08:39→21:00)
[2020-12-22] MEDS: PHENOBARBITAL 97.2 MG GT SCH ×2 (08:39→21:00)
[2020-12-22] MEDS: BACLOFEN 10 MG TABLET GT SCH ×2 (08:39→21:01)
[2020-12-22] MEDS: TERAZOSIN 1 MG CAPSULE GT SCH (08:40)
[2020-12-22] MEDS: ASCORBIC ACID 500 MG TABLET GT SCH (08:40)
[2020-12-22] MEDS: ZINC SULFATE 220 MG CAPSULE PO SCH (08:40)
[2020-12-22] MEDS: FAMOTIDINE 20 MG TABLET GT SCH ×2 (08:40→21:04)
[2020-12-22] MEDS: METOPROLOL TARTRATE 25 MG TABLET GT SCH ×2 (08:40→21:03)
[2020-12-22] MEDS: AMANTADINE HCL 100 MG CAPSULE GT SCH ×2 (08:40→21:05)
[2020-12-22] MEDS: ENOXAPARIN SODIUM 40 MG/0.4 ML DISP.SYRIN SQ SCH (08:41)
[2020-12-22] MEDS: COD LIVER OIL/ZINC OXIDE OINT 113 GM TUBE TOP SCH ×2 (08:41→21:05)
[2020-12-22] MEDS: VITAMINS A AND D OINT TP SCH ×2 (08:42→21:07)
--- NOTE | 2020-12-22 11:08 | NUR ---
Seen By Temitope AJ ,sacral wound evaluated,no improving ,new tx orders carried out.
[2020-12-22] MEDS ORDERED: SODIUM HYPOCHLORITE 0.25% (HALF STRENGTH) 480 ML BOTTLE TP PRN (12:45)
[2020-12-22] MEDS ORDERED: THERAHONEY GEL 1.5 OZ TUBE TOP PRN (12:45)
[2020-12-22 20:00] VITALS: BP 165/91
[2020-12-22] MEDS: MINERAL OIL/PETROLAT OPHT OINT 3.5 GM TUBE EACHEYE SCH (21:00)
[2020-12-22] MEDS: ATORVASTATIN 40 MG TABLET GT SCH (21:01)
[2020-12-22] MEDS: THIAMINE HCL 100 MG TABLET GT SCH (21:05)
[2020-12-22] MEDS: THERAHONEY GEL 1.5 OZ TUBE TOP SCH (21:05)
[2020-12-22] MEDS: SODIUM HYPOCHLORITE 0.25% (HALF STRENGTH) 480 ML BOTTLE TP SCH (21:06)
--- NOTE | 2020-12-22 21:45 | NUR ---
covid result-negative, called maria t, daughter and left a message.
[2020-12-23] MEDS: INSULIN REGULAR, HUMAN 300 UNIT/3 ML VIAL SQ PRN ×4 (05:19→23:53)
[2020-12-23] MEDS: BLOOD SUGAR DIAGNOSTIC 1 EACH STRIP VI SCH ×4 (05:20→23:52)
[2020-12-23 07:52] VITALS: BP 162/89
[2020-12-23] MEDS: AMANTADINE 50MG/5ML GT SCH ×2 (08:27→21:35)
[2020-12-23] MEDS: ENOXAPARIN SODIUM 40 MG/0.4 ML DISP.SYRIN SQ SCH (08:54)
[2020-12-23] MEDS: ZINC SULFATE 220 MG CAPSULE PO SCH (08:55)
[2020-12-23] MEDS: PHENOBARBITAL 97.2 MG GT SCH ×2 (08:55→21:31)
[2020-12-23] MEDS: DOCUSATE SODIUM 100 MG/10 ML LIQUID UDC GT SCH ×2 (08:55→21:31)
[2020-12-23] MEDS: TERAZOSIN 1 MG CAPSULE GT SCH (08:56)
[2020-12-23] MEDS: ARGININE/GLUTAMINE/CALCIUM BMB 1 EACH POWD.PACK GT SCH ×2 (08:56→21:31)
[2020-12-23] MEDS: levETIRAcetam 500 MG/5 ML LIQUID UDC GT SCH ×2 (08:57→21:31)
[2020-12-23] MEDS: BACLOFEN 10 MG TABLET GT SCH ×2 (08:57→21:32)
[2020-12-23] MEDS: METOPROLOL TARTRATE 25 MG TABLET GT SCH ×2 (08:57→21:35)
[2020-12-23] MEDS: FAMOTIDINE 20 MG TABLET GT SCH ×2 (08:57→21:35)
[2020-12-23] MEDS: AMANTADINE HCL 100 MG CAPSULE GT SCH (08:58)
[2020-12-23] MEDS: ASCORBIC ACID 500 MG TABLET GT SCH (08:58)
[2020-12-23] MEDS: VITAMINS A AND D OINT TP SCH ×2 (08:59→21:36)
[2020-12-23] MEDS: COD LIVER OIL/ZINC OXIDE OINT 113 GM TUBE TOP SCH ×2 (08:59→21:36)
[2020-12-23] MEDS: THERAHONEY GEL 1.5 OZ TUBE TOP SCH ×2 (08:59→21:36)
[2020-12-23] MEDS: SODIUM HYPOCHLORITE 0.25% (HALF STRENGTH) 480 ML BOTTLE TP SCH ×2 (08:59→21:36)
[2020-12-23 12:00] VITALS: BP 139/81
[2020-12-23] MEDS: HYDROGEN PEROXIDE 3% 118 ML BOTTLE TP SCH ×2 (12:25→20:57)
[2020-12-23 18:00] VITALS: BP 148/77
--- NOTE | 2020-12-23 19:08 | NUR ---
SEEN BY DR. WEBSTER AND WITH NNO. NOTES FROM DR. PRINGLE SEEN AND WITH NNO.
[2020-12-23 20:00] VITALS: BP 147/89
[2020-12-23] MEDS: MINERAL OIL/PETROLAT OPHT OINT 3.5 GM TUBE EACHEYE SCH (21:30)
[2020-12-23] MEDS: ATORVASTATIN 40 MG TABLET GT SCH (21:32)
[2020-12-23] MEDS: THIAMINE HCL 100 MG TABLET GT SCH (21:35)
[2020-12-24] VITALS: BP 148/90
[2020-12-24] MEDS: GLUCERNA 1.2 1000ML LIQUID GT PRN ×2 (04:33→23:24)
[2020-12-24] MEDS: INSULIN REGULAR, HUMAN 300 UNIT/3 ML VIAL SQ PRN ×3 (05:51→17:08)
[2020-12-24] MEDS: BLOOD SUGAR DIAGNOSTIC 1 EACH STRIP VI SCH ×3 (05:51→17:07)
[2020-12-24 07:45] VITALS: BP 163/92
[2020-12-24 08:08] VITALS: BP 163/92
[2020-12-24] MEDS: DOCUSATE SODIUM 100 MG/10 ML LIQUID UDC GT SCH ×2 (09:08→21:33)
[2020-12-24] MEDS: levETIRAcetam 500 MG/5 ML LIQUID UDC GT SCH ×2 (09:08→21:33)
[2020-12-24] MEDS: PHENOBARBITAL 97.2 MG GT SCH ×2 (09:08→21:33)
[2020-12-24] MEDS: ARGININE/GLUTAMINE/CALCIUM BMB 1 EACH POWD.PACK GT SCH ×2 (09:08→21:33)
[2020-12-24] MEDS: TERAZOSIN 1 MG CAPSULE GT SCH (09:08)
[2020-12-24] MEDS: FAMOTIDINE 20 MG TABLET GT SCH ×2 (09:10→21:34)
[2020-12-24] MEDS: AMANTADINE 50MG/5ML GT SCH (09:10)
[2020-12-24] MEDS: BACLOFEN 10 MG TABLET GT SCH ×2 (09:10→21:34)
[2020-12-24] MEDS: METOPROLOL TARTRATE 25 MG TABLET GT SCH ×2 (09:10→21:34)
[2020-12-24] MEDS: COD LIVER OIL/ZINC OXIDE OINT 113 GM TUBE TOP SCH ×2 (09:11→21:34)
[2020-12-24] MEDS: ENOXAPARIN SODIUM 40 MG/0.4 ML DISP.SYRIN SQ SCH (09:11)
[2020-12-24] MEDS: ZINC SULFATE 220 MG CAPSULE PO SCH (09:11)
[2020-12-24] MEDS: ASCORBIC ACID 500 MG TABLET GT SCH (09:11)
[2020-12-24] MEDS: SODIUM HYPOCHLORITE 0.25% (HALF STRENGTH) 480 ML BOTTLE TP SCH ×2 (09:12→21:36)
[2020-12-24] MEDS: VITAMINS A AND D OINT TP SCH ×2 (09:12→21:36)
[2020-12-24] MEDS: THERAHONEY GEL 1.5 OZ TUBE TOP SCH ×2 (09:12→21:35)
[2020-12-24] MEDS: ACETAMINOPHEN 650 MG/20.3 ML LIQUID UDC GT PRN (09:12)
[2020-12-24] MEDS: HYDROGEN PEROXIDE 3% 118 ML BOTTLE TP SCH ×2 (09:25→21:22)
[2020-12-24 13:00] VITALS: BP 153/87
[2020-12-24 18:03] VITALS: BP 158/85
[2020-12-24] MEDS: MINERAL OIL/PETROLAT OPHT OINT 3.5 GM TUBE EACHEYE SCH (21:33)
[2020-12-24] MEDS: AMANTADINE HCL 50 MG/5 ML GT SCH (21:34)
[2020-12-24] MEDS: THIAMINE HCL 100 MG TABLET GT SCH (21:34)
[2020-12-24] MEDS: ATORVASTATIN 40 MG TABLET GT SCH (21:34)
[2020-12-24 22:22] VITALS: BP 140/80
[2020-12-25] VITALS: BP 136/79
[2020-12-25] MEDS: BLOOD SUGAR DIAGNOSTIC 1 EACH STRIP VI SCH ×5 (00:30→18:23)
[2020-12-25] MEDS: INSULIN REGULAR, HUMAN 300 UNIT/3 ML VIAL SQ PRN ×2 (01:20→12:10)
[2020-12-25] MEDS: HYDROGEN PEROXIDE 3% 118 ML BOTTLE TP SCH ×2 (08:42→19:14)
[2020-12-25] MEDS: ARGININE/GLUTAMINE/CALCIUM BMB 1 EACH POWD.PACK GT SCH ×2 (08:42→20:41)
[2020-12-25] MEDS: BACLOFEN 10 MG TABLET GT SCH ×2 (08:42→20:41)
[2020-12-25] MEDS: levETIRAcetam 500 MG/5 ML LIQUID UDC GT SCH ×2 (08:42→20:41)
[2020-12-25] MEDS: TERAZOSIN 1 MG CAPSULE GT SCH (08:42)
[2020-12-25] MEDS: DOCUSATE SODIUM 100 MG/10 ML LIQUID UDC GT SCH ×2 (08:42→20:41)
[2020-12-25] MEDS: PHENOBARBITAL 97.2 MG GT SCH ×2 (08:42→20:40)
[2020-12-25] MEDS: ZINC SULFATE 220 MG CAPSULE PO SCH (08:43)
[2020-12-25] MEDS: METOPROLOL TARTRATE 25 MG TABLET GT SCH ×2 (08:43→20:41)
[2020-12-25] MEDS: AMANTADINE HCL 50 MG/5 ML GT SCH ×2 (08:43→20:41)
[2020-12-25] MEDS: ASCORBIC ACID 500 MG TABLET GT SCH (08:43)
[2020-12-25] MEDS: FAMOTIDINE 20 MG TABLET GT SCH ×2 (08:43→20:41)
[2020-12-25] MEDS: THERAHONEY GEL 1.5 OZ TUBE TOP SCH ×2 (08:45→20:42)
[2020-12-25] MEDS: ENOXAPARIN SODIUM 40 MG/0.4 ML DISP.SYRIN SQ SCH (08:45)
[2020-12-25] MEDS: SODIUM HYPOCHLORITE 0.25% (HALF STRENGTH) 480 ML BOTTLE TP SCH ×2 (08:45→20:42)
[2020-12-25] MEDS: VITAMINS A AND D OINT TP SCH ×2 (08:45→20:42)
[2020-12-25] MEDS: COD LIVER OIL/ZINC OXIDE OINT 113 GM TUBE TOP SCH ×2 (08:45→20:42)
[2020-12-25] MEDS: ACETAMINOPHEN 650 MG/20.3 ML LIQUID UDC GT PRN (08:47)
[2020-12-25] MEDS: GLUCERNA 1.2 1000ML LIQUID GT PRN (12:07)
[2020-12-25] MEDS: ATORVASTATIN 40 MG TABLET GT SCH (20:41)
[2020-12-25] MEDS: MINERAL OIL/PETROLAT OPHT OINT 3.5 GM TUBE EACHEYE SCH (20:41)
[2020-12-25] MEDS: THIAMINE HCL 100 MG TABLET GT SCH (20:42)
[2020-12-25 22:39] VITALS: BP 148/83
[2020-12-26] MEDS: BLOOD SUGAR DIAGNOSTIC 1 EACH STRIP VI SCH ×5 (00:38→23:41)
[2020-12-26] MEDS: INSULIN REGULAR, HUMAN 300 UNIT/3 ML VIAL SQ PRN ×3 (00:39→17:03)
[2020-12-26] MEDS: GLUCERNA 1.2 1000ML LIQUID GT PRN ×2 (05:37→17:40)
[2020-12-26 07:24] VITALS: BP 159/89
[2020-12-26] MEDS: PHENOBARBITAL 97.2 MG GT SCH ×2 (08:36→21:19)
[2020-12-26] MEDS: DOCUSATE SODIUM 100 MG/10 ML LIQUID UDC GT SCH ×2 (08:36→21:18)
[2020-12-26] MEDS: ARGININE/GLUTAMINE/CALCIUM BMB 1 EACH POWD.PACK GT SCH ×2 (08:37→21:20)
[2020-12-26] MEDS: BACLOFEN 10 MG TABLET GT SCH ×2 (08:37→21:21)
[2020-12-26] MEDS: levETIRAcetam 500 MG/5 ML LIQUID UDC GT SCH ×2 (08:37→21:20)
[2020-12-26] MEDS: TERAZOSIN 1 MG CAPSULE GT SCH (08:37)
[2020-12-26] MEDS: METOPROLOL TARTRATE 25 MG TABLET GT SCH ×2 (08:38→21:21)
[2020-12-26] MEDS: FAMOTIDINE 20 MG TABLET GT SCH ×2 (08:38→21:21)
[2020-12-26] MEDS: AMANTADINE HCL 50 MG/5 ML GT SCH ×2 (08:38→21:22)
[2020-12-26] MEDS: ASCORBIC ACID 500 MG TABLET GT SCH (08:39)
[2020-12-26] MEDS: ZINC SULFATE 220 MG CAPSULE PO SCH (08:39)
[2020-12-26] MEDS: VITAMINS A AND D OINT TP SCH ×2 (08:41→21:24)
[2020-12-26] MEDS: THERAHONEY GEL 1.5 OZ TUBE TOP SCH ×2 (08:41→21:23)
[2020-12-26] MEDS: COD LIVER OIL/ZINC OXIDE OINT 113 GM TUBE TOP SCH ×2 (08:41→21:23)
[2020-12-26] MEDS: SODIUM HYPOCHLORITE 0.25% (HALF STRENGTH) 480 ML BOTTLE TP SCH ×2 (08:41→21:24)
[2020-12-26] MEDS: ENOXAPARIN SODIUM 40 MG/0.4 ML DISP.SYRIN SQ SCH (08:42)
[2020-12-26] MEDS: HYDROGEN PEROXIDE 3% 118 ML BOTTLE TP SCH ×2 (09:16→21:04)
--- NOTE | 2020-12-26 12:02 | NUR ---
PT. WAS SEEN AND EXAMINED BY DR. COLLINS AND AWARE OF TACHYCARDIA AND TACHYPNEA (SEE RECODS) AND EDEMA ON HANDS AND HE SAID THAT HE WILL EVALUATE PT. ABOUT IT.
[2020-12-26] MEDS: MINERAL OIL/PETROLAT OPHT OINT 3.5 GM TUBE EACHEYE SCH (21:18)
[2020-12-26] MEDS: ATORVASTATIN 40 MG TABLET GT SCH (21:21)
[2020-12-26] MEDS: THIAMINE HCL 100 MG TABLET GT SCH (21:22)
[2020-12-26 22:53] VITALS: BP 151/82
[2020-12-27] MEDS: INSULIN REGULAR, HUMAN 300 UNIT/3 ML VIAL SQ PRN ×3 (00:58→11:56)
[2020-12-27] MEDS: BLOOD SUGAR DIAGNOSTIC 1 EACH STRIP VI SCH ×3 (05:33→18:01)
[2020-12-27] MEDS: hydrALAZINE HCL 25 MG TABLET GT PRN (05:35)
[2020-12-27 07:17] VITALS: BP 155/90
[2020-12-27] MEDS: HYDROGEN PEROXIDE 3% 118 ML BOTTLE TP SCH ×2 (08:40→21:13)
[2020-12-27] MEDS: PHENOBARBITAL 97.2 MG GT SCH ×2 (08:54→20:25)
[2020-12-27] MEDS: levETIRAcetam 500 MG/5 ML LIQUID UDC GT SCH ×2 (08:54→20:25)
[2020-12-27] MEDS: BACLOFEN 10 MG TABLET GT SCH ×2 (08:54→20:25)
[2020-12-27] MEDS: DOCUSATE SODIUM 100 MG/10 ML LIQUID UDC GT SCH ×2 (08:54→20:25)
[2020-12-27] MEDS: TERAZOSIN 1 MG CAPSULE GT SCH (08:54)
[2020-12-27] MEDS: ARGININE/GLUTAMINE/CALCIUM BMB 1 EACH POWD.PACK GT SCH (08:54)
[2020-12-27] MEDS: COD LIVER OIL/ZINC OXIDE OINT 113 GM TUBE TOP SCH ×2 (08:55→20:26)
[2020-12-27] MEDS: METOPROLOL TARTRATE 25 MG TABLET GT SCH ×2 (08:55→20:25)
[2020-12-27] MEDS: VITAMINS A AND D OINT TP SCH ×2 (08:55→20:26)
[2020-12-27] MEDS: FAMOTIDINE 20 MG TABLET GT SCH ×2 (08:55→20:25)
[2020-12-27] MEDS: SODIUM HYPOCHLORITE 0.25% (HALF STRENGTH) 480 ML BOTTLE TP SCH ×2 (08:55→20:26)
[2020-12-27] MEDS: AMANTADINE HCL 50 MG/5 ML GT SCH ×2 (08:55→20:26)
[2020-12-27] MEDS: THERAHONEY GEL 1.5 OZ TUBE TOP SCH ×2 (08:55→20:26)
[2020-12-27] MEDS: ENOXAPARIN SODIUM 40 MG/0.4 ML DISP.SYRIN SQ SCH (08:56)
[2020-12-27] MEDS: ASCORBIC ACID 500 MG TABLET GT SCH (09:51)
[2020-12-27] MEDS: GLUCERNA 1.2 1000ML LIQUID GT PRN ×2 (11:55→18:01)
[2020-12-27] MEDS: MINERAL OIL/PETROLAT OPHT OINT 3.5 GM TUBE EACHEYE SCH (20:25)
[2020-12-27] MEDS: ATORVASTATIN 40 MG TABLET GT SCH (20:25)
[2020-12-27] MEDS: THIAMINE HCL 100 MG TABLET GT SCH (20:26)
[2020-12-27 20:34] VITALS: BP 153/87
[2020-12-28] MEDS: BLOOD SUGAR DIAGNOSTIC 1 EACH STRIP VI SCH ×4 (00:38→18:54)
[2020-12-28] MEDS: INSULIN REGULAR, HUMAN 300 UNIT/3 ML VIAL SQ PRN ×4 (00:42→18:56)
[2020-12-28] MEDS: GLUCERNA 1.2 1000ML LIQUID GT PRN (01:35)
[2020-12-28 07:17] LABS: HEMATOCRIT 36.9 % (36.7-47.1); MEAN CORPUSCULAR HEMOGLOBIN 30.1 uug (23.8-33.4); MEAN CORPUSCULAR VOLUME 88.9 fL (73.0-96.2); PLATELET COUNT (AUTO) 236 K/uL (152-348)
[2020-12-28 07:23] VITALS: BP 162/87
[2020-12-28 07:29] LABS: ALANINE AMINOTRANSFERASE 33 U/L (16-63); ALKALINE PHOSPHATASE 139 U/L (50-136); ASPARTATE AMINOTRANSFERASE 17 U/L (15-37); BILIRUBIN,TOTAL 0.2 mg/dL (0.2-1.0); CARBON DIOXIDE 31 mmol/L (21-32); CHLORIDE 97 mmol/L (98-107); CREATININE 0.4 mg/dL (0.6-1.3); GLUCOSE 129 mg/dL (74-106); POTASSIUM 4.1 mmol/L (3.5-5.1); TOTAL PROTEIN, SERUM 7.5 g/dL (6.4-8.2); UREA NITROGEN, BLOOD 15 mg/dL (7-18)
[2020-12-28] MEDS: DOCUSATE SODIUM 100 MG/10 ML LIQUID UDC GT SCH ×2 (08:29→21:37)
[2020-12-28] MEDS: PHENOBARBITAL 97.2 MG GT SCH ×2 (08:29→21:37)
[2020-12-28] MEDS: BACLOFEN 10 MG TABLET GT SCH ×2 (08:30→21:42)
[2020-12-28] MEDS: FAMOTIDINE 20 MG TABLET GT SCH ×2 (08:30→21:45)
[2020-12-28] MEDS: METOPROLOL TARTRATE 25 MG TABLET GT SCH ×2 (08:30→21:45)
[2020-12-28] MEDS: levETIRAcetam 500 MG/5 ML LIQUID UDC GT SCH ×2 (08:30→21:41)
[2020-12-28] MEDS: COD LIVER OIL/ZINC OXIDE OINT 113 GM TUBE TOP SCH ×2 (08:30→21:47)
[2020-12-28] MEDS: AMANTADINE HCL 50 MG/5 ML GT SCH ×2 (08:30→21:46)
[2020-12-28] MEDS: ASCORBIC ACID 500 MG TABLET GT SCH (08:30)
[2020-12-28] MEDS: THERAHONEY GEL 1.5 OZ TUBE TOP SCH ×2 (08:30→21:47)
[2020-12-28] MEDS: TERAZOSIN 1 MG CAPSULE GT SCH (08:30)
[2020-12-28] MEDS: SODIUM HYPOCHLORITE 0.25% (HALF STRENGTH) 480 ML BOTTLE TP SCH ×2 (08:31→21:47)
[2020-12-28] MEDS: VITAMINS A AND D OINT TP SCH ×2 (08:31→21:47)
[2020-12-28] MEDS: ENOXAPARIN SODIUM 40 MG/0.4 ML DISP.SYRIN SQ SCH (08:33)
[2020-12-28] MEDS: HYDROGEN PEROXIDE 3% 118 ML BOTTLE TP SCH ×2 (09:51→20:15)
--- NOTE | 2020-12-28 12:00 | NUR ---
SEEN BY FABY Montoya AND WITH NNO.
[2020-12-28 20:00] VITALS: BP 148/95
[2020-12-28] MEDS: MINERAL OIL/PETROLAT OPHT OINT 3.5 GM TUBE EACHEYE SCH (21:37)
[2020-12-28] MEDS: ATORVASTATIN 40 MG TABLET GT SCH (21:42)
[2020-12-28] MEDS: THIAMINE HCL 100 MG TABLET GT SCH (21:46)
[2020-12-29] MEDS: BLOOD SUGAR DIAGNOSTIC 1 EACH STRIP VI SCH ×4 (00:13→17:12)
[2020-12-29] MEDS: INSULIN REGULAR, HUMAN 300 UNIT/3 ML VIAL SQ PRN ×4 (00:17→17:14)
--- NOTE | 2020-12-29 03:54 | NUR ---
Andrew from the Lab called RE: patient's covid 19 test resulted and was negative.
[2020-12-29 08:02] VITALS: BP 150/90
[2020-12-29] MEDS: COD LIVER OIL/ZINC OXIDE OINT 113 GM TUBE TOP SCH ×2 (09:00→21:46)
[2020-12-29] MEDS: VITAMINS A AND D OINT TP SCH ×2 (09:00→21:47)
[2020-12-29] MEDS: DOCUSATE SODIUM 100 MG/10 ML LIQUID UDC GT SCH ×2 (09:02→21:36)
[2020-12-29] MEDS: PHENOBARBITAL 97.2 MG GT SCH ×2 (09:03→21:36)
[2020-12-29] MEDS: BACLOFEN 10 MG TABLET GT SCH ×2 (09:03→21:43)
[2020-12-29] MEDS: TERAZOSIN 1 MG CAPSULE GT SCH (09:03)
[2020-12-29] MEDS: levETIRAcetam 500 MG/5 ML LIQUID UDC GT SCH ×2 (09:03→21:43)
[2020-12-29] MEDS: ASCORBIC ACID 500 MG TABLET GT SCH (09:04)
[2020-12-29] MEDS: FAMOTIDINE 20 MG TABLET GT SCH ×2 (09:04→21:43)
[2020-12-29] MEDS: AMANTADINE HCL 50 MG/5 ML GT SCH ×2 (09:04→21:46)
[2020-12-29] MEDS: METOPROLOL TARTRATE 25 MG TABLET GT SCH ×2 (09:04→21:48)
[2020-12-29] MEDS: ENOXAPARIN SODIUM 40 MG/0.4 ML DISP.SYRIN SQ SCH (09:13)
[2020-12-29] MEDS: HYDROGEN PEROXIDE 3% 118 ML BOTTLE TP SCH ×2 (09:16→20:51)
[2020-12-29] MEDS: ACETAMINOPHEN 650 MG/20.3 ML LIQUID UDC GT PRN (09:30)
[2020-12-29] MEDS: THERAHONEY GEL 1.5 OZ TUBE TOP SCH ×2 (10:00→21:47)
[2020-12-29] MEDS: SODIUM HYPOCHLORITE 0.25% (HALF STRENGTH) 480 ML BOTTLE TP SCH ×2 (10:00→21:47)
[2020-12-29 12:00] VITALS: BP 150/84
[2020-12-29] MEDS: GLUCERNA 1.2 1000ML LIQUID GT PRN (15:00)
[2020-12-29 18:00] VITALS: BP 154/82
--- NOTE | 2020-12-29 18:00 | NUR ---
Seen and examined by Dr Peralta,no new orders noted.
--- NOTE | 2020-12-29 19:08 | NUR ---
patient's covid 19 test negative,left message to Pt's daughter Kylie.
[2020-12-29 20:00] VITALS: BP 144/87
[2020-12-29] MEDS: MINERAL OIL/PETROLAT OPHT OINT 3.5 GM TUBE EACHEYE SCH (21:36)
[2020-12-29] MEDS: ATORVASTATIN 40 MG TABLET GT SCH (21:43)
[2020-12-29] MEDS: THIAMINE HCL 100 MG TABLET GT SCH (21:46)
[2020-12-30] MEDS: INSULIN REGULAR, HUMAN 300 UNIT/3 ML VIAL SQ PRN ×3 (01:17→11:05)
[2020-12-30] MEDS: BLOOD SUGAR DIAGNOSTIC 1 EACH STRIP VI SCH ×4 (05:28→17:15)
[2020-12-30 06:00] VITALS: BP 154/83
[2020-12-30 07:42] VITALS: BP 145/80
[2020-12-30] MEDS: DOCUSATE SODIUM 100 MG/10 ML LIQUID UDC GT SCH ×2 (08:35→21:54)
[2020-12-30] MEDS: METOPROLOL TARTRATE 25 MG TABLET GT SCH ×2 (08:35→21:57)
[2020-12-30] MEDS: TERAZOSIN 1 MG CAPSULE GT SCH (08:35)
[2020-12-30] MEDS: ASCORBIC ACID 500 MG TABLET GT SCH (08:35)
[2020-12-30] MEDS: FAMOTIDINE 20 MG TABLET GT SCH ×2 (08:35→21:57)
[2020-12-30] MEDS: BACLOFEN 10 MG TABLET GT SCH ×2 (08:35→21:57)
[2020-12-30] MEDS: levETIRAcetam 500 MG/5 ML LIQUID UDC GT SCH ×2 (08:35→21:57)
[2020-12-30] MEDS: PHENOBARBITAL 97.2 MG GT SCH ×2 (08:35→21:54)
[2020-12-30] MEDS: AMANTADINE HCL 50 MG/5 ML GT SCH ×2 (08:35→21:57)
[2020-12-30] MEDS: COD LIVER OIL/ZINC OXIDE OINT 113 GM TUBE TOP SCH ×2 (08:36→21:58)
[2020-12-30] MEDS: ENOXAPARIN SODIUM 40 MG/0.4 ML DISP.SYRIN SQ SCH (08:36)
[2020-12-30] MEDS: THERAHONEY GEL 1.5 OZ TUBE TOP SCH ×2 (08:36→21:58)
[2020-12-30] MEDS: VITAMINS A AND D OINT TP SCH ×2 (08:37→21:58)
[2020-12-30] MEDS: SODIUM HYPOCHLORITE 0.25% (HALF STRENGTH) 480 ML BOTTLE TP SCH ×2 (08:37→21:58)
[2020-12-30] MEDS: HYDROGEN PEROXIDE 3% 118 ML BOTTLE TP SCH ×2 (10:50→21:13)
[2020-12-30 12:00] VITALS: BP 143/81
[2020-12-30 18:00] VITALS: BP 148/85
[2020-12-30 20:57] VITALS: BP_SYST 138; BP_SYST 181; BP_DIAS 84; BP_DIAS 85
[2020-12-30] MEDS: MINERAL OIL/PETROLAT OPHT OINT 3.5 GM TUBE EACHEYE SCH (21:54)
[2020-12-30] MEDS: THIAMINE HCL 100 MG TABLET GT SCH (21:57)
[2020-12-30] MEDS: ATORVASTATIN 40 MG TABLET GT SCH (21:57)
[2020-12-30] MEDS: ACETAMINOPHEN 650 MG/20.3 ML LIQUID UDC GT PRN (22:17)
[2020-12-31] VITALS: BP 134/82
[2020-12-31] MEDS: BLOOD SUGAR DIAGNOSTIC 1 EACH STRIP VI SCH ×4 (00:33→17:14)
[2020-12-31] MEDS: INSULIN REGULAR, HUMAN 300 UNIT/3 ML VIAL SQ PRN ×3 (00:37→12:11)
[2020-12-31] MEDS: GLUCERNA 1.2 1000ML LIQUID GT PRN ×2 (00:53→14:45)
[2020-12-31 06:00] VITALS: BP 142/76
[2020-12-31 07:56] VITALS: BP 158/90
[2020-12-31] MEDS: THERAHONEY GEL 1.5 OZ TUBE TOP SCH ×2 (08:14→21:39)
[2020-12-31] MEDS: AMANTADINE HCL 50 MG/5 ML GT SCH ×2 (08:14→21:39)
[2020-12-31] MEDS: TERAZOSIN 1 MG CAPSULE GT SCH (08:14)
[2020-12-31] MEDS: COD LIVER OIL/ZINC OXIDE OINT 113 GM TUBE TOP SCH ×2 (08:14→21:39)
[2020-12-31] MEDS: levETIRAcetam 500 MG/5 ML LIQUID UDC GT SCH ×2 (08:14→21:39)
[2020-12-31] MEDS: METOPROLOL TARTRATE 25 MG TABLET GT SCH ×2 (08:14→21:39)
[2020-12-31] MEDS: BACLOFEN 10 MG TABLET GT SCH ×2 (08:14→21:39)
[2020-12-31] MEDS: ASCORBIC ACID 500 MG TABLET GT SCH (08:14)
[2020-12-31] MEDS: FAMOTIDINE 20 MG TABLET GT SCH ×2 (08:14→21:39)
[2020-12-31] MEDS: DOCUSATE SODIUM 100 MG/10 ML LIQUID UDC GT SCH ×2 (08:14→21:39)
[2020-12-31] MEDS: PHENOBARBITAL 97.2 MG GT SCH ×2 (08:14→21:39)
[2020-12-31] MEDS: VITAMINS A AND D OINT TP SCH ×2 (08:15→21:40)
[2020-12-31] MEDS: SODIUM HYPOCHLORITE 0.25% (HALF STRENGTH) 480 ML BOTTLE TP SCH ×2 (08:15→21:40)
[2020-12-31] MEDS: ENOXAPARIN SODIUM 40 MG/0.4 ML DISP.SYRIN SQ SCH (08:15)
[2020-12-31] MEDS: HYDROGEN PEROXIDE 3% 118 ML BOTTLE TP SCH ×2 (09:24→21:04)
[2020-12-31 12:00] VITALS: BP 138/88
[2020-12-31 20:06] VITALS: BP 139/80
[2020-12-31] MEDS: MINERAL OIL/PETROLAT OPHT OINT 3.5 GM TUBE EACHEYE SCH (21:39)
[2020-12-31] MEDS: ATORVASTATIN 40 MG TABLET GT SCH (21:39)
[2020-12-31] MEDS: THIAMINE HCL 100 MG TABLET GT SCH (21:39)
[2021-01-01] VITALS: BP 147/87
[2021-01-01] MEDS: BLOOD SUGAR DIAGNOSTIC 1 EACH STRIP VI SCH ×4 (00:19→17:47)
[2021-01-01] MEDS: INSULIN REGULAR, HUMAN 300 UNIT/3 ML VIAL SQ PRN ×4 (00:22→17:48)
[2021-01-01 07:47] VITALS: BP 154/88
[2021-01-01 07:52] VITALS: BP 154/88
[2021-01-01] MEDS: DOCUSATE SODIUM 100 MG/10 ML LIQUID UDC GT SCH ×2 (08:24→21:32)
[2021-01-01] MEDS: TERAZOSIN 1 MG CAPSULE GT SCH (08:26)
[2021-01-01] MEDS: BACLOFEN 10 MG TABLET GT SCH ×2 (08:26→21:33)
[2021-01-01] MEDS: PHENOBARBITAL 97.2 MG GT SCH ×2 (08:26→21:32)
[2021-01-01] MEDS: levETIRAcetam 500 MG/5 ML LIQUID UDC GT SCH ×2 (08:26→21:33)
[2021-01-01] MEDS: AMANTADINE HCL 50 MG/5 ML GT SCH ×2 (08:27→21:33)
[2021-01-01] MEDS: FAMOTIDINE 20 MG TABLET GT SCH ×2 (08:27→21:33)
[2021-01-01] MEDS: METOPROLOL TARTRATE 25 MG TABLET GT SCH ×2 (08:27→21:33)
[2021-01-01] MEDS: ASCORBIC ACID 500 MG TABLET GT SCH (08:28)
[2021-01-01] MEDS: VITAMINS A AND D OINT TP SCH ×2 (08:28→21:34)
[2021-01-01] MEDS: COD LIVER OIL/ZINC OXIDE OINT 113 GM TUBE TOP SCH ×2 (08:28→21:33)
[2021-01-01] MEDS: ENOXAPARIN SODIUM 40 MG/0.4 ML DISP.SYRIN SQ SCH (08:28)
[2021-01-01] MEDS: SODIUM HYPOCHLORITE 0.25% (HALF STRENGTH) 480 ML BOTTLE TP SCH ×2 (08:28→21:33)
[2021-01-01] MEDS: THERAHONEY GEL 1.5 OZ TUBE TOP SCH ×2 (08:28→21:33)
[2021-01-01] MEDS: ACETAMINOPHEN 650 MG/20.3 ML LIQUID UDC GT PRN (08:29)
[2021-01-01] MEDS: GLUCERNA 1.2 1000ML LIQUID GT PRN (08:29)
[2021-01-01] MEDS: HYDROGEN PEROXIDE 3% 118 ML BOTTLE TP SCH ×2 (08:37→20:08)
[2021-01-01 12:30] VITALS: BP 136/89
[2021-01-01 18:00] VITALS: BP 140/76
[2021-01-01 20:27] VITALS: BP 148/90
[2021-01-01] MEDS: ACETAMINOPHEN 650 MG/20.3 ML LIQUID UDC GT SCH (20:30)
[2021-01-01] MEDS: MINERAL OIL/PETROLAT OPHT OINT 3.5 GM TUBE EACHEYE SCH (21:32)
[2021-01-01] MEDS: ATORVASTATIN 40 MG TABLET GT SCH (21:33)
[2021-01-01] MEDS: THIAMINE HCL 100 MG TABLET GT SCH (21:33)
[2021-01-02 00:10] VITALS: BP 137/80
[2021-01-02] MEDS: BLOOD SUGAR DIAGNOSTIC 1 EACH STRIP VI SCH ×5 (00:15→23:35)
[2021-01-02] MEDS: INSULIN REGULAR, HUMAN 300 UNIT/3 ML VIAL SQ PRN ×4 (00:19→23:38)
[2021-01-02] MEDS: GLUCERNA 1.2 1000ML LIQUID GT PRN (00:21)
[2021-01-02 06:31] VITALS: BP 145/75
[2021-01-02 07:54] VITALS: BP 149/83
[2021-01-02] MEDS: HYDROGEN PEROXIDE 3% 118 ML BOTTLE TP SCH ×2 (09:00→20:38)
[2021-01-02] MEDS: DOCUSATE SODIUM 100 MG/10 ML LIQUID UDC GT SCH ×2 (09:13→21:40)
[2021-01-02] MEDS: ACETAMINOPHEN 650 MG/20.3 ML LIQUID UDC GT SCH ×2 (09:13→20:30)
[2021-01-02] MEDS: PHENOBARBITAL 97.2 MG GT SCH ×2 (09:14→21:50)
[2021-01-02] MEDS: TERAZOSIN 1 MG CAPSULE GT SCH (09:14)
[2021-01-02] MEDS: levETIRAcetam 500 MG/5 ML LIQUID UDC GT SCH ×2 (09:15→21:41)
[2021-01-02] MEDS: BACLOFEN 10 MG TABLET GT SCH ×2 (09:16→21:36)
[2021-01-02] MEDS: METOPROLOL TARTRATE 25 MG TABLET GT SCH ×2 (09:17→21:36)
[2021-01-02] MEDS: AMANTADINE HCL 50 MG/5 ML GT SCH ×2 (09:18→21:46)
[2021-01-02] MEDS: FAMOTIDINE 20 MG TABLET GT SCH ×2 (09:18→21:37)
[2021-01-02] MEDS: ASCORBIC ACID 500 MG TABLET GT SCH (09:18)
[2021-01-02] MEDS: ENOXAPARIN SODIUM 40 MG/0.4 ML DISP.SYRIN SQ SCH (09:19)
[2021-01-02] MEDS: COD LIVER OIL/ZINC OXIDE OINT 113 GM TUBE TOP SCH ×2 (09:19→21:37)
[2021-01-02] MEDS: SODIUM HYPOCHLORITE 0.25% (HALF STRENGTH) 480 ML BOTTLE TP SCH ×2 (09:20→21:37)
[2021-01-02] MEDS: THERAHONEY GEL 1.5 OZ TUBE TOP SCH ×2 (09:20→21:37)
[2021-01-02] MEDS: VITAMINS A AND D OINT TP SCH ×2 (09:20→21:37)
[2021-01-02 12:05] VITALS: BP 142/83
[2021-01-02 18:11] VITALS: BP 144/83
--- NOTE | 2021-01-02 19:52 | NUR ---
Per PT's daughter Kylie,is ok to give the pneumococcal vaccine.Kylie stated is ok for her grandfather to take decisions,and get information from the patient.
[2021-01-02 20:49] VITALS: BP 140/85
[2021-01-02] MEDS: ATORVASTATIN 40 MG TABLET GT SCH (21:36)
[2021-01-02] MEDS: THIAMINE HCL 100 MG TABLET GT SCH (21:38)
[2021-01-02] MEDS: MINERAL OIL/PETROLAT OPHT OINT 3.5 GM TUBE EACHEYE SCH (21:41)
[2021-01-03] MEDS: BLOOD SUGAR DIAGNOSTIC 1 EACH STRIP VI SCH ×3 (05:20→18:14)
[2021-01-03 05:33] VITALS: BP 136/78
[2021-01-03 07:54] VITALS: BP 158/89
[2021-01-03] MEDS: DOCUSATE SODIUM 100 MG/10 ML LIQUID UDC GT SCH ×2 (08:18→21:28)
[2021-01-03] MEDS: ACETAMINOPHEN 650 MG/20.3 ML LIQUID UDC GT SCH ×2 (08:18→21:27)
[2021-01-03] MEDS: PHENOBARBITAL 97.2 MG GT SCH ×2 (08:18→21:29)
[2021-01-03] MEDS: SODIUM HYPOCHLORITE 0.25% (HALF STRENGTH) 480 ML BOTTLE TP SCH ×2 (08:19→21:39)
[2021-01-03] MEDS: THERAHONEY GEL 1.5 OZ TUBE TOP SCH ×2 (08:19→21:39)
[2021-01-03] MEDS: ASCORBIC ACID 500 MG TABLET GT SCH (08:19)
[2021-01-03] MEDS: levETIRAcetam 500 MG/5 ML LIQUID UDC GT SCH ×2 (08:19→21:29)
[2021-01-03] MEDS: AMANTADINE HCL 50 MG/5 ML GT SCH ×2 (08:19→21:38)
[2021-01-03] MEDS: COD LIVER OIL/ZINC OXIDE OINT 113 GM TUBE TOP SCH ×2 (08:19→21:39)
[2021-01-03] MEDS: TERAZOSIN 1 MG CAPSULE GT SCH (08:19)
[2021-01-03] MEDS: BACLOFEN 10 MG TABLET GT SCH ×2 (08:19→21:30)
[2021-01-03] MEDS: VITAMINS A AND D OINT TP SCH ×2 (08:19→21:39)
[2021-01-03] MEDS: FAMOTIDINE 20 MG TABLET GT SCH ×2 (08:19→21:36)
[2021-01-03] MEDS: METOPROLOL TARTRATE 25 MG TABLET GT SCH ×2 (08:19→21:33)
[2021-01-03] MEDS: ENOXAPARIN SODIUM 40 MG/0.4 ML DISP.SYRIN SQ SCH (08:19)
[2021-01-03] MEDS: HYDROGEN PEROXIDE 3% 118 ML BOTTLE TP SCH ×2 (09:03→21:27)
[2021-01-03 12:00] VITALS: BP 138/72
[2021-01-03] MEDS: INSULIN REGULAR, HUMAN 300 UNIT/3 ML VIAL SQ PRN ×2 (13:12→18:15)
--- NOTE | 2021-01-03 13:14 | NUR ---
Seen by Cari CASTRO, reported occasional episodes of tachypnea and tachycardia, new orders given to change albuterol to Xopenex.
[2021-01-03] MEDS ORDERED: LEVALBUTEROL HCL 1.25 MG/0.5 ML NEB NEB PRN (14:00)
[2021-01-03 19:20] VITALS: BP 178/100
[2021-01-03] MEDS: hydrALAZINE HCL 25 MG TABLET GT PRN (19:26)
[2021-01-03] MEDS: IPRATROPIUM BROMIDE 0.5 MG/2.5 ML NEBU NEB SCH (19:33)
[2021-01-03] MEDS: LEVALBUTEROL HCL 1.25 MG/0.5 ML NEB NEB SCH (19:33)
[2021-01-03 21:00] VITALS: BP 157/87
[2021-01-03] MEDS: MINERAL OIL/PETROLAT OPHT OINT 3.5 GM TUBE EACHEYE SCH (21:28)
[2021-01-03] MEDS: ATORVASTATIN 40 MG TABLET GT SCH (21:32)
[2021-01-03] MEDS: THIAMINE HCL 100 MG TABLET GT SCH (21:38)
[2021-01-04] MEDS: BLOOD SUGAR DIAGNOSTIC 1 EACH STRIP VI SCH ×4 (00:34→17:07)
[2021-01-04] MEDS: INSULIN REGULAR, HUMAN 300 UNIT/3 ML VIAL SQ PRN ×3 (00:35→17:13)
[2021-01-04 00:48] VITALS: BP 139/80
[2021-01-04] MEDS: LEVALBUTEROL HCL 1.25 MG/0.5 ML NEB NEB SCH ×4 (01:00→19:03)
[2021-01-04] MEDS: IPRATROPIUM BROMIDE 0.5 MG/2.5 ML NEBU NEB SCH ×4 (01:00→19:03)
[2021-01-04 05:30] VITALS: BP 152/93
[2021-01-04] MEDS: GLUCERNA 1.2 1000ML LIQUID GT PRN ×2 (05:32→21:45)
[2021-01-04 07:20] VITALS: BP 142/91
[2021-01-04] MEDS: ACETAMINOPHEN 650 MG/20.3 ML LIQUID UDC GT SCH ×2 (08:33→20:30)
[2021-01-04] MEDS: DOCUSATE SODIUM 100 MG/10 ML LIQUID UDC GT SCH ×2 (08:36→21:33)
[2021-01-04] MEDS: PHENOBARBITAL 97.2 MG GT SCH ×2 (08:37→21:33)
[2021-01-04] MEDS: TERAZOSIN 1 MG CAPSULE GT SCH (08:40)
[2021-01-04] MEDS: BACLOFEN 10 MG TABLET GT SCH ×2 (08:41→21:34)
[2021-01-04] MEDS: levETIRAcetam 500 MG/5 ML LIQUID UDC GT SCH ×2 (08:41→21:33)
[2021-01-04] MEDS: FAMOTIDINE 20 MG TABLET GT SCH ×2 (08:42→21:36)
[2021-01-04] MEDS: METOPROLOL TARTRATE 25 MG TABLET GT SCH ×2 (08:42→21:36)
[2021-01-04] MEDS: COD LIVER OIL/ZINC OXIDE OINT 113 GM TUBE TOP SCH ×2 (08:43→21:38)
[2021-01-04] MEDS: THERAHONEY GEL 1.5 OZ TUBE TOP SCH (08:43)
[2021-01-04] MEDS: VITAMINS A AND D OINT TP SCH ×2 (08:43→21:39)
[2021-01-04] MEDS: ASCORBIC ACID 500 MG TABLET GT SCH (08:43)
[2021-01-04] MEDS: SODIUM HYPOCHLORITE 0.25% (HALF STRENGTH) 480 ML BOTTLE TP SCH ×2 (08:43→21:41)
[2021-01-04] MEDS: ENOXAPARIN SODIUM 40 MG/0.4 ML DISP.SYRIN SQ SCH (08:49)
[2021-01-04] MEDS: AMANTADINE HCL 50 MG/5 ML GT SCH ×2 (08:50→21:37)
[2021-01-04] MEDS: HYDROGEN PEROXIDE 3% 118 ML BOTTLE TP SCH ×2 (09:00→20:36)
[2021-01-04] MEDS: hydrALAZINE HCL 25 MG TABLET GT PRN (13:28)
--- NOTE | 2021-01-04 17:01 | NUR ---
Email sent to the responsible constitution party regarding Covid 19 texting done today
[2021-01-04 17:28] VITALS: BP 156/98
--- NOTE | 2021-01-04 18:30 | NUR ---
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
[2021-01-04 19:57] VITALS: BP 141/77
[2021-01-04] MEDS: MINERAL OIL/PETROLAT OPHT OINT 3.5 GM TUBE EACHEYE SCH (21:33)
[2021-01-04] MEDS: ATORVASTATIN 40 MG TABLET GT SCH (21:35)
[2021-01-04] MEDS: THIAMINE HCL 100 MG TABLET GT SCH (21:38)
[2021-01-05] MEDS: BLOOD SUGAR DIAGNOSTIC 1 EACH STRIP VI SCH ×4 (00:20→17:00)
[2021-01-05] MEDS: LEVALBUTEROL HCL 1.25 MG/0.5 ML NEB NEB SCH ×4 (01:00→20:00)
[2021-01-05] MEDS: IPRATROPIUM BROMIDE 0.5 MG/2.5 ML NEBU NEB SCH ×4 (01:00→20:00)
[2021-01-05 01:27] VITALS: BP 137/81
[2021-01-05 06:23] VITALS: BP 150/81
[2021-01-05 07:29] VITALS: BP 164/97
[2021-01-05] MEDS: VITAMINS A AND D OINT TP SCH ×2 (09:00→21:40)
[2021-01-05] MEDS: HYDROGEN PEROXIDE 3% 118 ML BOTTLE TP SCH ×2 (09:25→21:01)
[2021-01-05] MEDS: ACETAMINOPHEN 650 MG/20.3 ML LIQUID UDC GT SCH ×2 (09:30→20:30)
[2021-01-05] MEDS: DOCUSATE SODIUM 100 MG/10 ML LIQUID UDC GT SCH ×2 (09:31→21:38)
[2021-01-05] MEDS: PHENOBARBITAL 97.2 MG GT SCH ×2 (09:32→21:38)
[2021-01-05] MEDS: TERAZOSIN 1 MG CAPSULE GT SCH (09:32)
[2021-01-05] MEDS: METOPROLOL TARTRATE 25 MG TABLET GT SCH ×2 (09:33→21:38)
[2021-01-05] MEDS: levETIRAcetam 500 MG/5 ML LIQUID UDC GT SCH ×2 (09:33→21:38)
[2021-01-05] MEDS: BACLOFEN 10 MG TABLET GT SCH ×2 (09:33→21:38)
[2021-01-05] MEDS: ASCORBIC ACID 500 MG TABLET GT SCH (09:34)
[2021-01-05] MEDS: FAMOTIDINE 20 MG TABLET GT SCH ×2 (09:34→21:38)
[2021-01-05] MEDS: COD LIVER OIL/ZINC OXIDE OINT 113 GM TUBE TOP SCH ×2 (09:34→21:40)
[2021-01-05] MEDS: AMANTADINE HCL 50 MG/5 ML GT SCH ×2 (09:34→21:39)
[2021-01-05] MEDS: ENOXAPARIN SODIUM 40 MG/0.4 ML DISP.SYRIN SQ SCH (09:42)
[2021-01-05] MEDS: SODIUM HYPOCHLORITE 0.25% (HALF STRENGTH) 480 ML BOTTLE TP SCH ×2 (09:55→21:40)
[2021-01-05 12:00] VITALS: BP 154/75
[2021-01-05] MEDS: INSULIN REGULAR, HUMAN 300 UNIT/3 ML VIAL SQ PRN ×2 (12:09→17:01)
--- NOTE | 2021-01-05 16:00 | NUR ---
Pt seen by JEAN MARIE Linn for sacral debridement.
[2021-01-05 17:02] VITALS: BP 142/80
[2021-01-05 20:00] VITALS: BP 157/92
[2021-01-05] MEDS: ATORVASTATIN 40 MG TABLET GT SCH (21:38)
[2021-01-05] MEDS: MINERAL OIL/PETROLAT OPHT OINT 3.5 GM TUBE EACHEYE SCH (21:38)
[2021-01-05] MEDS: THIAMINE HCL 100 MG TABLET GT SCH (21:40)
[2021-01-06] VITALS (8 sets, daily range): BP systolic 145–169; BP diastolic 78–87
[2021-01-06] MEDS: hydrALAZINE HCL 25 MG TABLET GT PRN
[2021-01-06] MEDS: INSULIN REGULAR, HUMAN 300 UNIT/3 ML VIAL SQ PRN ×3 (00:38→17:33)
[2021-01-06] MEDS: BLOOD SUGAR DIAGNOSTIC 1 EACH STRIP VI SCH ×4 (00:38→17:31)
[2021-01-06] MEDS: LEVALBUTEROL HCL 1.25 MG/0.5 ML NEB NEB SCH ×4 (02:04→19:00)
[2021-01-06] MEDS: IPRATROPIUM BROMIDE 0.5 MG/2.5 ML NEBU NEB SCH ×4 (02:18→19:00)
--- NOTE | 2021-01-06 05:27 | NUR ---
sacral wound DTI in evolution, no bleeding noted.
[2021-01-06] MEDS: GLUCERNA 1.2 1000ML LIQUID GT PRN (06:01)
[2021-01-06] MEDS: HYDROGEN PEROXIDE 3% 118 ML BOTTLE TP SCH ×2 (08:06→20:59)
[2021-01-06] MEDS: ACETAMINOPHEN 650 MG/20.3 ML LIQUID UDC GT SCH (08:30)
[2021-01-06] MEDS: VITAMINS A AND D OINT TP SCH ×2 (09:00→21:38)
[2021-01-06] MEDS: SODIUM HYPOCHLORITE 0.25% (HALF STRENGTH) 480 ML BOTTLE TP SCH ×2 (09:00→21:38)
[2021-01-06] MEDS: DOCUSATE SODIUM 100 MG/10 ML LIQUID UDC GT SCH ×2 (09:35→21:35)
[2021-01-06] MEDS: PHENOBARBITAL 97.2 MG GT SCH ×2 (09:35→21:35)
[2021-01-06] MEDS: TERAZOSIN 1 MG CAPSULE GT SCH (09:36)
[2021-01-06] MEDS: levETIRAcetam 500 MG/5 ML LIQUID UDC GT SCH ×2 (09:36→21:35)
[2021-01-06] MEDS: BACLOFEN 10 MG TABLET GT SCH ×2 (09:37→21:36)
[2021-01-06] MEDS: FAMOTIDINE 20 MG TABLET GT SCH ×2 (09:37→21:36)
[2021-01-06] MEDS: METOPROLOL TARTRATE 25 MG TABLET GT SCH ×2 (09:37→21:36)
[2021-01-06] MEDS: AMANTADINE HCL 50 MG/5 ML GT SCH ×2 (09:38→21:38)
[2021-01-06] MEDS: ASCORBIC ACID 500 MG TABLET GT SCH (09:39)
[2021-01-06] MEDS: COD LIVER OIL/ZINC OXIDE OINT 113 GM TUBE TOP SCH ×2 (09:40→21:38)
[2021-01-06] MEDS: ENOXAPARIN SODIUM 40 MG/0.4 ML DISP.SYRIN SQ SCH (09:41)
--- NOTE | 2021-01-06 15:03 | NUR ---
SW informed patient's daughter Janis, via email, that the next IDT meeting for the patient has been scheduled for 01/11/2021 at 11am. DELANEY asked for Janis to let this SW know if Janis would like to participate in the meeting by speaker phone.
--- NOTE | 2021-01-06 17:59 | NUR ---
NEW ORDER FOR PNEUMOVACCINE FROM DR. WEBSTER WAS NOTIFIED TO PT'S RESP. GREEN PARTY SARBJIT AND SHE WAS IN AGREEMENT AND ORDER TO BE CARRIED OUT.
[2021-01-06] MEDS: ACETAMINOPHEN 650 MG/20 ML UDC- SA PATIENTS-PAIN ONLY GT SCH (20:30)
[2021-01-06] MEDS: MINERAL OIL/PETROLAT OPHT OINT 3.5 GM TUBE EACHEYE SCH (21:34)
[2021-01-06] MEDS: ATORVASTATIN 40 MG TABLET GT SCH (21:36)
[2021-01-06] MEDS: THIAMINE HCL 100 MG TABLET GT SCH (21:38)
[2021-01-07] VITALS: BP 143/82
[2021-01-07] MEDS: INSULIN REGULAR, HUMAN 300 UNIT/3 ML VIAL SQ PRN ×4 (00:41→23:04)
[2021-01-07] MEDS: IPRATROPIUM BROMIDE 0.5 MG/2.5 ML NEBU NEB SCH ×4 (01:04→19:02)
[2021-01-07] MEDS: LEVALBUTEROL HCL 1.25 MG/0.5 ML NEB NEB SCH ×4 (01:04→19:02)
[2021-01-07] MEDS: GLUCERNA 1.2 1000ML LIQUID GT PRN ×2 (03:41→21:33)
[2021-01-07] MEDS: LORAZEPAM 1 MG TABLET GT PRN (04:00)
[2021-01-07] MEDS: BLOOD SUGAR DIAGNOSTIC 1 EACH STRIP VI SCH ×5 (05:39→23:00)
[2021-01-07 08:10] VITALS: BP 167/80
[2021-01-07] MEDS: HYDROGEN PEROXIDE 3% 118 ML BOTTLE TP SCH ×2 (09:00→21:06)
[2021-01-07] MEDS: DOCUSATE SODIUM 100 MG/10 ML LIQUID UDC GT SCH ×2 (09:21→20:41)
[2021-01-07] MEDS: ACETAMINOPHEN 650 MG/20 ML UDC- SA PATIENTS-PAIN ONLY GT SCH ×2 (09:21→20:41)
[2021-01-07] MEDS: PHENOBARBITAL 97.2 MG GT SCH ×2 (09:21→20:41)
[2021-01-07] MEDS: levETIRAcetam 500 MG/5 ML LIQUID UDC GT SCH ×2 (09:22→20:41)
[2021-01-07] MEDS: FAMOTIDINE 20 MG TABLET GT SCH ×2 (09:22→20:42)
[2021-01-07] MEDS: BACLOFEN 10 MG TABLET GT SCH ×2 (09:22→20:41)
[2021-01-07] MEDS: METOPROLOL TARTRATE 25 MG TABLET GT SCH ×2 (09:22→20:42)
[2021-01-07] MEDS: AMANTADINE HCL 50 MG/5 ML GT SCH ×2 (09:22→20:42)
[2021-01-07] MEDS: TERAZOSIN 1 MG CAPSULE GT SCH (09:22)
[2021-01-07] MEDS: ENOXAPARIN SODIUM 40 MG/0.4 ML DISP.SYRIN SQ SCH (09:23)
[2021-01-07] MEDS: COD LIVER OIL/ZINC OXIDE OINT 113 GM TUBE TOP SCH ×2 (09:23→21:27)
[2021-01-07] MEDS: ASCORBIC ACID 500 MG TABLET GT SCH (09:23)
[2021-01-07] MEDS: SODIUM HYPOCHLORITE 0.25% (HALF STRENGTH) 480 ML BOTTLE TP SCH ×2 (09:24→21:28)
[2021-01-07] MEDS: VITAMINS A AND D OINT TP SCH ×2 (09:24→21:28)
--- NOTE | 2021-01-07 11:08 | NUR ---
SW received an email response back from patient's daughter Janis, stating that she and her grandfather (patient's father) would both like to participate in the IDT meeting on 01/11, via speaker phone. SW to call Janis and patient's father during the meeting.
[2021-01-07 12:39] VITALS: BP 112/63
--- NOTE | 2021-01-07 15:39 | NUR ---
DELANEY called patient's daughter Janis [phone], and informed her of the updated visitation guidelines for the subacute unit, based on [facility] and [facility] directives. DELANEY emailed patient's daughter Janis the guidelines and criteria for visitations. Janis stated that she will share the email with her brother (Daniel, patient's son) and her grandfather (Arden, patient's father)
--- NOTE | 2021-01-07 19:56 | NUR ---
COVID 19 TEST NEGATIVE FROM 01/04/21 NEGATIVE AND MESSAGE LEFT TO PT'S RESP. SHARMAINE SCHAFFER.
[2021-01-07] MEDS: ATORVASTATIN 40 MG TABLET GT SCH (20:41)
[2021-01-07] MEDS: MINERAL OIL/PETROLAT OPHT OINT 3.5 GM TUBE EACHEYE SCH (20:41)
[2021-01-07] MEDS: THIAMINE HCL 100 MG TABLET GT SCH (20:42)
[2021-01-07 22:48] VITALS: BP 150/82
[2021-01-08 00:01] VITALS: BP 132/76
[2021-01-08] MEDS: IPRATROPIUM BROMIDE 0.5 MG/2.5 ML NEBU NEB SCH ×4 (01:12→19:30)
[2021-01-08] MEDS: LEVALBUTEROL HCL 1.25 MG/0.5 ML NEB NEB SCH ×4 (01:12→19:30)
[2021-01-08] MEDS: BLOOD SUGAR DIAGNOSTIC 1 EACH STRIP VI SCH ×4 (05:33→23:16)
[2021-01-08] MEDS: INSULIN REGULAR, HUMAN 300 UNIT/3 ML VIAL SQ PRN ×3 (05:33→23:17)
[2021-01-08] MEDS: hydrALAZINE HCL 25 MG TABLET GT PRN ×2 (05:34→18:14)
[2021-01-08 06:11] VITALS: BP 162/87
[2021-01-08 07:48] VITALS: BP 166/100
[2021-01-08] MEDS: HYDROGEN PEROXIDE 3% 118 ML BOTTLE TP SCH ×2 (08:16→21:53)
[2021-01-08] MEDS: PHENOBARBITAL 97.2 MG GT SCH ×2 (08:41→21:28)
[2021-01-08] MEDS: DOCUSATE SODIUM 100 MG/10 ML LIQUID UDC GT SCH ×2 (08:41→21:28)
[2021-01-08] MEDS: ACETAMINOPHEN 650 MG/20 ML UDC- SA PATIENTS-PAIN ONLY GT SCH ×2 (08:41→20:01)
[2021-01-08] MEDS: TERAZOSIN 1 MG CAPSULE GT SCH (08:42)
[2021-01-08] MEDS: METOPROLOL TARTRATE 25 MG TABLET GT SCH ×2 (08:43→21:28)
[2021-01-08] MEDS: BACLOFEN 10 MG TABLET GT SCH ×2 (08:43→21:28)
[2021-01-08] MEDS: levETIRAcetam 500 MG/5 ML LIQUID UDC GT SCH ×2 (08:43→21:28)
[2021-01-08] MEDS: AMANTADINE HCL 50 MG/5 ML GT SCH ×2 (08:44→21:28)
[2021-01-08] MEDS: ASCORBIC ACID 500 MG TABLET GT SCH (08:44)
[2021-01-08] MEDS: FAMOTIDINE 20 MG TABLET GT SCH ×2 (08:44→21:28)
[2021-01-08] MEDS: ENOXAPARIN SODIUM 40 MG/0.4 ML DISP.SYRIN SQ SCH (08:45)
[2021-01-08] MEDS: SODIUM HYPOCHLORITE 0.25% (HALF STRENGTH) 480 ML BOTTLE TP SCH ×2 (08:46→21:28)
[2021-01-08] MEDS: COD LIVER OIL/ZINC OXIDE OINT 113 GM TUBE TOP SCH ×2 (08:46→21:28)
[2021-01-08] MEDS: VITAMINS A AND D OINT TP SCH ×2 (08:46→21:28)
[2021-01-08 12:10] VITALS: BP 110/74
[2021-01-08] MEDS: GLUCERNA 1.2 1000ML LIQUID GT PRN (12:16)
[2021-01-08] MEDS: MINERAL OIL/PETROLAT OPHT OINT 3.5 GM TUBE EACHEYE SCH (21:28)
[2021-01-08] MEDS: THIAMINE HCL 100 MG TABLET GT SCH (21:28)
[2021-01-08] MEDS: ATORVASTATIN 40 MG TABLET GT SCH (21:28)
[2021-01-08 23:02] VITALS: BP 165/89
[2021-01-09 00:01] VITALS: BP 122/70
[2021-01-09] MEDS: GLUCERNA 1.2 1000ML LIQUID GT PRN ×2 (01:42→21:43)
[2021-01-09] MEDS: IPRATROPIUM BROMIDE 0.5 MG/2.5 ML NEBU NEB SCH ×4 (02:08→19:04)
[2021-01-09] MEDS: LEVALBUTEROL HCL 1.25 MG/0.5 ML NEB NEB SCH ×4 (02:09→19:04)
[2021-01-09] MEDS: INSULIN REGULAR, HUMAN 300 UNIT/3 ML VIAL SQ PRN ×4 (05:27→23:11)
[2021-01-09] MEDS: BLOOD SUGAR DIAGNOSTIC 1 EACH STRIP VI SCH ×4 (05:27→23:11)
[2021-01-09 06:06] VITALS: BP 155/88
[2021-01-09 07:30] VITALS: BP 176/90
[2021-01-09] MEDS: HYDROGEN PEROXIDE 3% 118 ML BOTTLE TP SCH ×2 (08:25→21:43)
[2021-01-09] MEDS: DOCUSATE SODIUM 100 MG/10 ML LIQUID UDC GT SCH ×2 (08:29→20:41)
[2021-01-09] MEDS: PHENOBARBITAL 97.2 MG GT SCH ×2 (08:29→20:41)
[2021-01-09] MEDS: ACETAMINOPHEN 650 MG/20 ML UDC- SA PATIENTS-PAIN ONLY GT SCH ×2 (08:29→20:41)
[2021-01-09] MEDS: TERAZOSIN 1 MG CAPSULE GT SCH (08:31)
[2021-01-09] MEDS: BACLOFEN 10 MG TABLET GT SCH ×2 (08:31→20:41)
[2021-01-09] MEDS: levETIRAcetam 500 MG/5 ML LIQUID UDC GT SCH ×2 (08:31→20:41)
[2021-01-09] MEDS: COD LIVER OIL/ZINC OXIDE OINT 113 GM TUBE TOP SCH ×2 (08:32→21:27)
[2021-01-09] MEDS: SODIUM HYPOCHLORITE 0.25% (HALF STRENGTH) 480 ML BOTTLE TP SCH ×2 (08:32→21:27)
[2021-01-09] MEDS: ENOXAPARIN SODIUM 40 MG/0.4 ML DISP.SYRIN SQ SCH (08:32)
[2021-01-09] MEDS: AMANTADINE HCL 50 MG/5 ML GT SCH ×2 (08:32→20:41)
[2021-01-09] MEDS: FAMOTIDINE 20 MG TABLET GT SCH ×2 (08:32→20:41)
[2021-01-09] MEDS: METOPROLOL TARTRATE 25 MG TABLET GT SCH ×2 (08:32→20:41)
[2021-01-09] MEDS: ASCORBIC ACID 500 MG TABLET GT SCH (08:32)
[2021-01-09] MEDS: VITAMINS A AND D OINT TP SCH ×2 (08:33→21:27)
[2021-01-09 12:00] VITALS: BP 154/79
[2021-01-09 18:08] VITALS: BP 158/81
[2021-01-09] MEDS: ATORVASTATIN 40 MG TABLET GT SCH (20:41)
[2021-01-09] MEDS: MINERAL OIL/PETROLAT OPHT OINT 3.5 GM TUBE EACHEYE SCH (20:41)
[2021-01-09] MEDS: THIAMINE HCL 100 MG TABLET GT SCH (20:42)
[2021-01-09] MEDS: hydrALAZINE HCL 25 MG TABLET GT PRN (20:42)
[2021-01-09 23:25] VITALS: BP 170/100
[2021-01-10 00:35] VITALS: BP 136/77
[2021-01-10] MEDS: IPRATROPIUM BROMIDE 0.5 MG/2.5 ML NEBU NEB SCH ×4 (01:43→18:37)
[2021-01-10] MEDS: LEVALBUTEROL HCL 1.25 MG/0.5 ML NEB NEB SCH ×4 (01:43→18:37)
[2021-01-10] MEDS: BLOOD SUGAR DIAGNOSTIC 1 EACH STRIP VI SCH ×3 (05:32→17:32)
[2021-01-10] MEDS: INSULIN REGULAR, HUMAN 300 UNIT/3 ML VIAL SQ PRN ×3 (05:33→17:32)
[2021-01-10 06:09] VITALS: BP 152/97
[2021-01-10 07:23] VITALS: BP 155/91
[2021-01-10] MEDS: HYDROGEN PEROXIDE 3% 118 ML BOTTLE TP SCH ×2 (07:40→21:00)
[2021-01-10] MEDS: DOCUSATE SODIUM 100 MG/10 ML LIQUID UDC GT SCH (08:17)
[2021-01-10] MEDS: ACETAMINOPHEN 650 MG/20 ML UDC- SA PATIENTS-PAIN ONLY GT SCH ×2 (08:17→20:49)
[2021-01-10] MEDS: PHENOBARBITAL 97.2 MG GT SCH ×2 (08:17→20:49)
[2021-01-10] MEDS: levETIRAcetam 500 MG/5 ML LIQUID UDC GT SCH ×2 (08:18→20:50)
[2021-01-10] MEDS: TERAZOSIN 1 MG CAPSULE GT SCH (08:18)
[2021-01-10] MEDS: METOPROLOL TARTRATE 25 MG TABLET GT SCH ×2 (08:19→20:51)
[2021-01-10] MEDS: FAMOTIDINE 20 MG TABLET GT SCH ×2 (08:19→20:51)
[2021-01-10] MEDS: BACLOFEN 10 MG TABLET GT SCH ×2 (08:19→20:50)
[2021-01-10] MEDS: AMANTADINE HCL 50 MG/5 ML GT SCH ×2 (08:19→20:51)
[2021-01-10] MEDS: ENOXAPARIN SODIUM 40 MG/0.4 ML DISP.SYRIN SQ SCH (08:20)
[2021-01-10] MEDS: ASCORBIC ACID 500 MG TABLET GT SCH (08:20)
[2021-01-10] MEDS: SODIUM HYPOCHLORITE 0.25% (HALF STRENGTH) 480 ML BOTTLE TP SCH ×2 (08:21→20:52)
[2021-01-10] MEDS: VITAMINS A AND D OINT TP SCH ×2 (08:21→20:52)
[2021-01-10] MEDS: COD LIVER OIL/ZINC OXIDE OINT 113 GM TUBE TOP SCH ×2 (08:21→20:51)
--- NOTE | 2021-01-10 11:22 | NUR ---
NEW ORDER WAS CARRIED OUT FROM DR. WEBSTER FOR COVID 19 TEST AND PT'S RESP. LIBERTARIAN WAS NOTIFIED WITH A CALL AND E JENN AND IN AGREEMENT.
[2021-01-10] MEDS ORDERED: DOCUSATE SODIUM 100 MG/10 ML LIQUID UDC GT PRN (12:45)
[2021-01-10] MEDS ORDERED: PNEUMOCOCCAL 23-VAL P-SAC VAC 0.5 ML VIAL IM ONE (15:00)
[2021-01-10 16:00] VITALS: BP 130/90
--- NOTE | 2021-01-10 16:00 | NUR ---
V/S BEFORE PNEUMOCOCCAL VACCINE FOLLOW:97.5 f,hr 109x'RR 28X'.O2 SAT 100%,B/P 130/90.
--- NOTE | 2021-01-10 16:10 | NUR ---
Spoke with Margarito at [email or web address]. Patient's insurance approved auth for Xopenex. Will be delivered [employer].
--- NOTE | 2021-01-10 17:00 | NUR ---
NO A/R TO PNEUMOCOCCAL VACCINE(SEE RECORD).
[2021-01-10] MEDS: GLUCERNA 1.2 1000ML LIQUID GT PRN (17:32)
[2021-01-10] MEDS: MINERAL OIL/PETROLAT OPHT OINT 3.5 GM TUBE EACHEYE SCH (20:49)
[2021-01-10] MEDS: ATORVASTATIN 40 MG TABLET GT SCH (20:50)
[2021-01-10] MEDS: THIAMINE HCL 100 MG TABLET GT SCH (20:51)
[2021-01-10 20:59] VITALS: BP 146/86
[2021-01-11] MEDS: INSULIN REGULAR, HUMAN 300 UNIT/3 ML VIAL SQ PRN ×2 (01:09→11:45)
[2021-01-11] MEDS: LEVALBUTEROL HCL 1.25 MG/0.5 ML NEB NEB SCH ×4 (01:24→19:51)
[2021-01-11] MEDS: IPRATROPIUM BROMIDE 0.5 MG/2.5 ML NEBU NEB SCH ×4 (01:24→19:51)
[2021-01-11] MEDS: BLOOD SUGAR DIAGNOSTIC 1 EACH STRIP VI SCH ×4 (05:24→17:32)
--- NOTE | 2021-01-11 05:37 | NUR ---
pneumococcal vaccine given, afebrile, no adverse reaction noted.
[2021-01-11 07:26] VITALS: BP 130/101
[2021-01-11 08:45] VITALS: BP 154/88
[2021-01-11] MEDS: VITAMINS A AND D OINT TP SCH ×2 (09:00→21:38)
[2021-01-11] MEDS: HYDROGEN PEROXIDE 3% 118 ML BOTTLE TP SCH ×2 (09:07→20:21)
[2021-01-11] MEDS: ACETAMINOPHEN 650 MG/20 ML UDC- SA PATIENTS-PAIN ONLY GT SCH ×2 (09:13→20:30)
[2021-01-11] MEDS: PHENOBARBITAL 97.2 MG GT SCH ×2 (09:13→21:35)
[2021-01-11] MEDS: levETIRAcetam 500 MG/5 ML LIQUID UDC GT SCH ×2 (09:16→21:35)
[2021-01-11] MEDS: BACLOFEN 10 MG TABLET GT SCH ×2 (09:17→21:35)
[2021-01-11] MEDS: TERAZOSIN 1 MG CAPSULE GT SCH (09:17)
[2021-01-11] MEDS: METOPROLOL TARTRATE 25 MG TABLET GT SCH ×2 (09:17→21:37)
[2021-01-11] MEDS: AMANTADINE HCL 50 MG/5 ML GT SCH ×2 (09:18→21:38)
[2021-01-11] MEDS: FAMOTIDINE 20 MG TABLET GT SCH ×2 (09:18→21:37)
[2021-01-11] MEDS: ENOXAPARIN SODIUM 40 MG/0.4 ML DISP.SYRIN SQ SCH (09:19)
[2021-01-11] MEDS: COD LIVER OIL/ZINC OXIDE OINT 113 GM TUBE TOP SCH ×2 (09:19→21:38)
[2021-01-11] MEDS: ASCORBIC ACID 500 MG TABLET GT SCH (09:19)
[2021-01-11] MEDS: SODIUM HYPOCHLORITE 0.25% (HALF STRENGTH) 480 ML BOTTLE TP SCH ×2 (10:00→21:38)
[2021-01-11] MEDS: GLUCERNA 1.2 1000ML LIQUID GT PRN (11:42)
[2021-01-11 12:00] VITALS: BP 136/75
--- NOTE | 2021-01-11 12:00 | NUR ---
PT. WAS SEEN BY FABY Montoya AND WITH NAMO.
--- NOTE | 2021-01-11 14:04 | NUR ---
PT. WAS SEEN BY FABY Montoya AND WITH NAMO.
--- NOTE | 2021-01-11 15:16 | NUR ---
INTERDISCIPLINARY PLAN OF CARE CONFERENCE was held today. Patient's daughter Janis and patient's father Arden participated in the meeting today, on speaker phone. Dr. Peralta and the Interdisciplinary Team reviewed the current plan of care in detail. RN reported on patient's medical condition, ongoing wound treatment, vitals, and changes in some medications. See RN IDT conference notes. Pharmacy also discussed changes in medication. No major changes in medical condition were reported by nursing or by any of the other disciplines. See all other disciplines IDT notes and physician's progress notes for additional details. Family's questions were addressed by the IDT team, and family expressed understanding.
[2021-01-11 17:58] VITALS: BP 152/80
[2021-01-11 20:00] VITALS: BP 147/87
[2021-01-11] MEDS: MINERAL OIL/PETROLAT OPHT OINT 3.5 GM TUBE EACHEYE SCH (21:35)
[2021-01-11] MEDS: ATORVASTATIN 40 MG TABLET GT SCH (21:36)
--- NOTE | 2021-01-11 21:37 | NUR ---
Patient is afebrile, s/p Pneumococcal Vaccine 23 given, no adverse reactions noted, no redness or swelling noted on injection site. Will continue monitor.
[2021-01-11] MEDS: THIAMINE HCL 100 MG TABLET GT SCH (21:38)
[2021-01-12] MEDS: INSULIN REGULAR, HUMAN 300 UNIT/3 ML VIAL SQ PRN ×3 (00:25→12:16)
[2021-01-12] MEDS: BLOOD SUGAR DIAGNOSTIC 1 EACH STRIP VI SCH ×4 (00:25→17:26)
[2021-01-12] MEDS: IPRATROPIUM BROMIDE 0.5 MG/2.5 ML NEBU NEB SCH ×4 (00:56→20:10)
[2021-01-12] MEDS: LEVALBUTEROL HCL 1.25 MG/0.5 ML NEB NEB SCH ×4 (00:56→20:10)
[2021-01-12 07:51] VITALS: BP 148/91
[2021-01-12] MEDS: HYDROGEN PEROXIDE 3% 118 ML BOTTLE TP SCH ×2 (08:08→21:12)
[2021-01-12] MEDS: VITAMINS A AND D OINT TP SCH ×2 (09:00→21:48)
[2021-01-12] MEDS: ACETAMINOPHEN 650 MG/20 ML UDC- SA PATIENTS-PAIN ONLY GT SCH ×2 (09:04→20:30)
[2021-01-12] MEDS: levETIRAcetam 500 MG/5 ML LIQUID UDC GT SCH ×2 (09:07→21:42)
[2021-01-12] MEDS: PHENOBARBITAL 97.2 MG GT SCH ×2 (09:07→21:41)
[2021-01-12] MEDS: TERAZOSIN 1 MG CAPSULE GT SCH (09:07)
[2021-01-12] MEDS: BACLOFEN 10 MG TABLET GT SCH ×2 (09:08→21:43)
[2021-01-12] MEDS: ASCORBIC ACID 500 MG TABLET GT SCH (09:09)
[2021-01-12] MEDS: METOPROLOL TARTRATE 25 MG TABLET GT SCH ×2 (09:09→21:45)
[2021-01-12] MEDS: FAMOTIDINE 20 MG TABLET GT SCH ×2 (09:09→21:45)
[2021-01-12] MEDS: AMANTADINE HCL 50 MG/5 ML GT SCH ×2 (09:11→21:45)
[2021-01-12] MEDS: ENOXAPARIN SODIUM 40 MG/0.4 ML DISP.SYRIN SQ SCH (09:12)
[2021-01-12] MEDS: COD LIVER OIL/ZINC OXIDE OINT 113 GM TUBE TOP SCH ×2 (09:17→21:47)
[2021-01-12] MEDS: SODIUM HYPOCHLORITE 0.25% (HALF STRENGTH) 480 ML BOTTLE TP SCH ×2 (10:00→21:48)
[2021-01-12 12:17] VITALS: BP 133/76
--- NOTE | 2021-01-12 15:17 | NUR ---
COVID-19 TEST FROM 01/10/2021 RESULTED NEGATIVE. RESPONSIBLE GREEN PARTY, SARBJIT WATSON NOTIFIED
[2021-01-12 18:13] VITALS: BP 151/82
[2021-01-12 20:00] VITALS: BP 148/84
[2021-01-12] MEDS: MINERAL OIL/PETROLAT OPHT OINT 3.5 GM TUBE EACHEYE SCH (21:41)
[2021-01-12] MEDS: ATORVASTATIN 40 MG TABLET GT SCH (21:43)
[2021-01-12] MEDS: THIAMINE HCL 100 MG TABLET GT SCH (21:47)
--- NOTE | 2021-01-12 21:47 | NUR ---
On monitoring for adverse side effects of Pneumovax 23 which was given on the Right deltoid, no adverse reactions noted, Afebrile, no redness or swelling noted on injection site. Will continue monitor.
[2021-01-13] MEDS: BLOOD SUGAR DIAGNOSTIC 1 EACH STRIP VI SCH ×4 (00:35→17:30)
[2021-01-13] MEDS: INSULIN REGULAR, HUMAN 300 UNIT/3 ML VIAL SQ PRN ×4 (00:37→17:30)
[2021-01-13] MEDS: IPRATROPIUM BROMIDE 0.5 MG/2.5 ML NEBU NEB SCH ×4 (02:00→19:40)
[2021-01-13] MEDS: LEVALBUTEROL HCL 1.25 MG/0.5 ML NEB NEB SCH ×4 (02:00→19:40)
[2021-01-13] MEDS: GLUCERNA 1.2 1000ML LIQUID GT PRN (04:35)
[2021-01-13 07:52] VITALS: BP 170/93
[2021-01-13] MEDS: ACETAMINOPHEN 650 MG/20 ML UDC- SA PATIENTS-PAIN ONLY GT SCH ×2 (08:32→20:30)
[2021-01-13] MEDS: FAMOTIDINE 20 MG TABLET GT SCH ×2 (08:32→21:38)
[2021-01-13] MEDS: METOPROLOL TARTRATE 25 MG TABLET GT SCH ×2 (08:32→21:38)
[2021-01-13] MEDS: PHENOBARBITAL 97.2 MG GT SCH ×2 (08:32→21:38)
[2021-01-13] MEDS: ASCORBIC ACID 500 MG TABLET GT SCH (08:32)
[2021-01-13] MEDS: BACLOFEN 10 MG TABLET GT SCH ×2 (08:32→21:38)
[2021-01-13] MEDS: AMANTADINE HCL 50 MG/5 ML GT SCH ×2 (08:32→21:39)
[2021-01-13] MEDS: levETIRAcetam 500 MG/5 ML LIQUID UDC GT SCH ×2 (08:32→21:38)
[2021-01-13] MEDS: TERAZOSIN 1 MG CAPSULE GT SCH (08:32)
[2021-01-13] MEDS: SODIUM HYPOCHLORITE 0.25% (HALF STRENGTH) 480 ML BOTTLE TP SCH ×2 (08:33→21:39)
[2021-01-13] MEDS: ENOXAPARIN SODIUM 40 MG/0.4 ML DISP.SYRIN SQ SCH (08:33)
[2021-01-13] MEDS: COD LIVER OIL/ZINC OXIDE OINT 113 GM TUBE TOP SCH ×2 (08:33→21:39)
[2021-01-13] MEDS: VITAMINS A AND D OINT TP SCH ×2 (08:33→21:39)
[2021-01-13] MEDS: HYDROGEN PEROXIDE 3% 118 ML BOTTLE TP SCH ×2 (08:47→21:07)
[2021-01-13 20:00] VITALS: BP 150/84
[2021-01-13] MEDS: MINERAL OIL/PETROLAT OPHT OINT 3.5 GM TUBE EACHEYE SCH (21:38)
[2021-01-13] MEDS: ATORVASTATIN 40 MG TABLET GT SCH (21:38)
[2021-01-13] MEDS: THIAMINE HCL 100 MG TABLET GT SCH (21:39)
--- NOTE | 2021-01-13 22:00 | NUR ---
Clarification done on Colace order to give 100mg= 10ml via gt Q12 H PRN for constipation.
[2021-01-13] MEDS ORDERED: DOCUSATE SODIUM 100 MG/10 ML LIQUID UDC GT PRN (22:30)
[2021-01-14] VITALS: BP 140/84
[2021-01-14] MEDS: BLOOD SUGAR DIAGNOSTIC 1 EACH STRIP VI SCH ×4 (00:07→17:56)
[2021-01-14] MEDS: INSULIN REGULAR, HUMAN 300 UNIT/3 ML VIAL SQ PRN ×4 (00:08→17:56)
[2021-01-14] MEDS: GLUCERNA 1.2 1000ML LIQUID GT PRN ×2 (00:22→17:56)
[2021-01-14] MEDS: LEVALBUTEROL HCL 1.25 MG/0.5 ML NEB NEB SCH ×4 (01:12→19:05)
[2021-01-14] MEDS: IPRATROPIUM BROMIDE 0.5 MG/2.5 ML NEBU NEB SCH ×4 (01:12→19:05)
[2021-01-14 07:48] VITALS: BP 143/78
[2021-01-14] MEDS: ACETAMINOPHEN 650 MG/20 ML UDC- SA PATIENTS-PAIN ONLY GT SCH ×2 (09:26→21:26)
[2021-01-14] MEDS: PHENOBARBITAL 97.2 MG GT SCH ×2 (09:27→21:26)
[2021-01-14] MEDS: levETIRAcetam 500 MG/5 ML LIQUID UDC GT SCH ×2 (09:28→21:26)
[2021-01-14] MEDS: BACLOFEN 10 MG TABLET GT SCH ×2 (09:29→21:26)
[2021-01-14] MEDS: METOPROLOL TARTRATE 25 MG TABLET GT SCH ×2 (09:30→21:48)
[2021-01-14] MEDS: TERAZOSIN 1 MG CAPSULE GT SCH (09:30)
[2021-01-14] MEDS: ASCORBIC ACID 500 MG TABLET GT SCH (09:31)
[2021-01-14] MEDS: FAMOTIDINE 20 MG TABLET GT SCH ×2 (09:31→21:27)
[2021-01-14] MEDS: AMANTADINE HCL 50 MG/5 ML GT SCH ×2 (09:31→21:27)
[2021-01-14] MEDS: ENOXAPARIN SODIUM 40 MG/0.4 ML DISP.SYRIN SQ SCH (09:32)
[2021-01-14] MEDS: VITAMINS A AND D OINT TP SCH ×2 (09:32→21:28)
[2021-01-14] MEDS: COD LIVER OIL/ZINC OXIDE OINT 113 GM TUBE TOP SCH ×2 (09:32→21:27)
[2021-01-14] MEDS: SODIUM HYPOCHLORITE 0.25% (HALF STRENGTH) 480 ML BOTTLE TP SCH ×2 (09:32→21:28)
[2021-01-14] MEDS: HYDROGEN PEROXIDE 3% 118 ML BOTTLE TP SCH ×2 (09:39→21:07)
[2021-01-14 12:00] VITALS: BP 138/89
[2021-01-14 12:14] VITALS: BP 138/86
[2021-01-14] MEDS: ATORVASTATIN 40 MG TABLET GT SCH (21:26)
[2021-01-14] MEDS: MINERAL OIL/PETROLAT OPHT OINT 3.5 GM TUBE EACHEYE SCH (21:26)
[2021-01-14] MEDS: THIAMINE HCL 100 MG TABLET GT SCH (21:27)
[2021-01-14] MEDS: hydrALAZINE HCL 25 MG TABLET GT PRN (21:48)
[2021-01-14 23:02] VITALS: BP 171/93
[2021-01-14 23:30] VITALS: BP 145/77
[2021-01-15] MEDS: INSULIN REGULAR, HUMAN 300 UNIT/3 ML VIAL SQ PRN ×4 (00:30→23:42)
[2021-01-15] MEDS: BLOOD SUGAR DIAGNOSTIC 1 EACH STRIP VI SCH ×5 (00:38→23:38)
[2021-01-15] MEDS: IPRATROPIUM BROMIDE 0.5 MG/2.5 ML NEBU NEB SCH ×4 (01:22→19:11)
[2021-01-15] MEDS: LEVALBUTEROL HCL 1.25 MG/0.5 ML NEB NEB SCH ×4 (01:23→19:11)
[2021-01-15 06:00] VITALS: BP 140/78
[2021-01-15 08:00] VITALS: BP 151/91
[2021-01-15] MEDS: HYDROGEN PEROXIDE 3% 118 ML BOTTLE TP SCH ×2 (08:10→21:03)
[2021-01-15] MEDS: ACETAMINOPHEN 650 MG/20 ML UDC- SA PATIENTS-PAIN ONLY GT SCH ×2 (09:07→20:30)
[2021-01-15] MEDS: PHENOBARBITAL 97.2 MG GT SCH ×2 (09:07→21:00)
[2021-01-15] MEDS: levETIRAcetam 500 MG/5 ML LIQUID UDC GT SCH ×2 (09:13→21:00)
[2021-01-15] MEDS: BACLOFEN 10 MG TABLET GT SCH ×2 (09:13→21:00)
[2021-01-15] MEDS: FAMOTIDINE 20 MG TABLET GT SCH ×2 (09:13→21:00)
[2021-01-15] MEDS: ASCORBIC ACID 500 MG TABLET GT SCH (09:13)
[2021-01-15] MEDS: TERAZOSIN 1 MG CAPSULE GT SCH (09:13)
[2021-01-15] MEDS: AMANTADINE HCL 50 MG/5 ML GT SCH ×2 (09:13→21:00)
[2021-01-15] MEDS: METOPROLOL TARTRATE 25 MG TABLET GT SCH ×2 (09:13→21:00)
[2021-01-15] MEDS: ENOXAPARIN SODIUM 40 MG/0.4 ML DISP.SYRIN SQ SCH (09:14)
[2021-01-15] MEDS: VITAMINS A AND D OINT TP SCH ×2 (09:15→21:00)
[2021-01-15] MEDS: SODIUM HYPOCHLORITE 0.25% (HALF STRENGTH) 480 ML BOTTLE TP SCH ×2 (09:15→21:00)
[2021-01-15] MEDS: COD LIVER OIL/ZINC OXIDE OINT 113 GM TUBE TOP SCH ×2 (09:15→21:00)
[2021-01-15 12:00] VITALS: BP 147/83
[2021-01-15] MEDS: GLUCERNA 1.2 1000ML LIQUID GT PRN (13:02)
[2021-01-15 18:00] VITALS: BP 144/85
[2021-01-15] MEDS: ATORVASTATIN 40 MG TABLET GT SCH (21:00)
[2021-01-15] MEDS: THIAMINE HCL 100 MG TABLET GT SCH (21:00)
[2021-01-15] MEDS: MINERAL OIL/PETROLAT OPHT OINT 3.5 GM TUBE EACHEYE SCH (21:00)
[2021-01-15 22:22] VITALS: BP 163/88
[2021-01-16] MEDS: IPRATROPIUM BROMIDE 0.5 MG/2.5 ML NEBU NEB SCH ×4 (01:00→19:04)
[2021-01-16] MEDS: LEVALBUTEROL HCL 1.25 MG/0.5 ML NEB NEB SCH ×4 (01:00→19:04)
[2021-01-16] MEDS: BLOOD SUGAR DIAGNOSTIC 1 EACH STRIP VI SCH ×4 (05:35→23:37)
[2021-01-16] MEDS: INSULIN REGULAR, HUMAN 300 UNIT/3 ML VIAL SQ PRN ×4 (05:37→23:47)
[2021-01-16 07:43] VITALS: BP 111/81
[2021-01-16] MEDS: PHENOBARBITAL 97.2 MG GT SCH ×2 (08:54→21:12)
[2021-01-16] MEDS: TERAZOSIN 1 MG CAPSULE GT SCH (08:54)
[2021-01-16] MEDS: levETIRAcetam 500 MG/5 ML LIQUID UDC GT SCH ×2 (08:54→21:12)
[2021-01-16] MEDS: ACETAMINOPHEN 650 MG/20 ML UDC- SA PATIENTS-PAIN ONLY GT SCH ×2 (08:54→21:10)
[2021-01-16] MEDS: ASCORBIC ACID 500 MG TABLET GT SCH ×2 (08:55→21:14)
[2021-01-16] MEDS: AMANTADINE HCL 50 MG/5 ML GT SCH ×2 (08:55→21:13)
[2021-01-16] MEDS: SODIUM HYPOCHLORITE 0.25% (HALF STRENGTH) 480 ML BOTTLE TP SCH ×2 (08:55→21:14)
[2021-01-16] MEDS: FAMOTIDINE 20 MG TABLET GT SCH ×2 (08:55→21:13)
[2021-01-16] MEDS: COD LIVER OIL/ZINC OXIDE OINT 113 GM TUBE TOP SCH ×2 (08:55→21:14)
[2021-01-16] MEDS: METOPROLOL TARTRATE 25 MG TABLET GT SCH ×2 (08:55→21:13)
[2021-01-16] MEDS: BACLOFEN 10 MG TABLET GT SCH ×2 (08:55→21:12)
[2021-01-16] MEDS: VITAMINS A AND D OINT TP SCH ×2 (08:56→21:14)
[2021-01-16] MEDS: ENOXAPARIN SODIUM 40 MG/0.4 ML DISP.SYRIN SQ SCH (08:57)
[2021-01-16] MEDS: HYDROGEN PEROXIDE 3% 118 ML BOTTLE TP SCH ×2 (12:10→20:58)
[2021-01-16 18:42] VITALS: BP 138/78
[2021-01-16] MEDS: MINERAL OIL/PETROLAT OPHT OINT 3.5 GM TUBE EACHEYE SCH (21:11)
[2021-01-16] MEDS: hydrALAZINE HCL 25 MG TABLET GT SCH (21:11)
[2021-01-16] MEDS: ATORVASTATIN 40 MG TABLET GT SCH (21:12)
[2021-01-16] MEDS: THIAMINE HCL 100 MG TABLET GT SCH (21:13)
[2021-01-16 23:27] VITALS: BP 158/98
[2021-01-17] MEDS: LEVALBUTEROL HCL 1.25 MG/0.5 ML NEB NEB SCH ×4 (00:40→19:20)
[2021-01-17] MEDS: IPRATROPIUM BROMIDE 0.5 MG/2.5 ML NEBU NEB SCH ×4 (00:40→19:20)
[2021-01-17] MEDS: BLOOD SUGAR DIAGNOSTIC 1 EACH STRIP VI SCH ×3 (05:23→17:34)
[2021-01-17] MEDS: HYDROGEN PEROXIDE 3% 118 ML BOTTLE TP SCH ×2 (08:11→19:53)
[2021-01-17 08:24] VITALS: BP 151/77
[2021-01-17] MEDS: PHENOBARBITAL 97.2 MG GT SCH ×2 (09:08→20:24)
[2021-01-17] MEDS: ACETAMINOPHEN 650 MG/20 ML UDC- SA PATIENTS-PAIN ONLY GT SCH ×2 (09:08→20:23)
[2021-01-17] MEDS: BACLOFEN 10 MG TABLET GT SCH ×2 (09:09→20:24)
[2021-01-17] MEDS: levETIRAcetam 500 MG/5 ML LIQUID UDC GT SCH ×2 (09:09→20:24)
[2021-01-17] MEDS: AMANTADINE HCL 50 MG/5 ML GT SCH ×2 (09:10→20:24)
[2021-01-17] MEDS: FAMOTIDINE 20 MG TABLET GT SCH ×2 (09:10→20:24)
[2021-01-17] MEDS: ENOXAPARIN SODIUM 40 MG/0.4 ML DISP.SYRIN SQ SCH (09:11)
[2021-01-17] MEDS: COD LIVER OIL/ZINC OXIDE OINT 113 GM TUBE TOP SCH ×2 (09:11→20:25)
[2021-01-17] MEDS: VITAMINS A AND D OINT TP SCH ×2 (09:11→20:25)
[2021-01-17] MEDS: SODIUM HYPOCHLORITE 0.25% (HALF STRENGTH) 480 ML BOTTLE TP SCH ×2 (09:11→21:22)
[2021-01-17] MEDS: TERAZOSIN 1 MG CAPSULE GT SCH (09:16)
[2021-01-17] MEDS: METOPROLOL TARTRATE 25 MG TABLET GT SCH ×2 (09:16→20:24)
[2021-01-17 12:00] VITALS: BP 148/79
[2021-01-17] MEDS: INSULIN REGULAR, HUMAN 300 UNIT/3 ML VIAL SQ PRN ×2 (12:00→17:34)
[2021-01-17] MEDS: GLUCERNA 1.2 1000ML LIQUID GT PRN ×2 (17:34)
[2021-01-17 20:20] VITALS: BP 158/86
[2021-01-17] MEDS: THIAMINE HCL 100 MG TABLET GT SCH (20:24)
[2021-01-17] MEDS: MINERAL OIL/PETROLAT OPHT OINT 3.5 GM TUBE EACHEYE SCH (20:24)
[2021-01-17] MEDS: hydrALAZINE HCL 25 MG TABLET GT SCH (20:24)
[2021-01-17] MEDS: ATORVASTATIN 40 MG TABLET GT SCH (20:24)
[2021-01-17] MEDS: ASCORBIC ACID 500 MG TABLET GT SCH (20:25)
[2021-01-17 21:56] VITALS: BP 139/81
[2021-01-18] MEDS: IPRATROPIUM BROMIDE 0.5 MG/2.5 ML NEBU NEB SCH ×4 (00:40→18:57)
[2021-01-18] MEDS: LEVALBUTEROL HCL 1.25 MG/0.5 ML NEB NEB SCH ×4 (00:40→18:57)
[2021-01-18] MEDS: BLOOD SUGAR DIAGNOSTIC 1 EACH STRIP VI SCH ×5 (00:42→23:28)
[2021-01-18] MEDS: INSULIN REGULAR, HUMAN 300 UNIT/3 ML VIAL SQ PRN ×4 (00:46→17:10)
[2021-01-18 07:25] VITALS: BP 164/98
[2021-01-18] MEDS: ACETAMINOPHEN 650 MG/20 ML UDC- SA PATIENTS-PAIN ONLY GT SCH ×2 (08:54→20:23)
[2021-01-18] MEDS: PHENOBARBITAL 97.2 MG GT SCH ×2 (08:55→20:23)
[2021-01-18] MEDS: levETIRAcetam 500 MG/5 ML LIQUID UDC GT SCH ×2 (08:55→20:24)
[2021-01-18] MEDS: BACLOFEN 10 MG TABLET GT SCH ×2 (08:55→20:24)
[2021-01-18] MEDS: TERAZOSIN 1 MG CAPSULE GT SCH (08:55)
[2021-01-18] MEDS: METOPROLOL TARTRATE 25 MG TABLET GT SCH ×2 (08:56→20:24)
[2021-01-18] MEDS: AMANTADINE HCL 50 MG/5 ML GT SCH ×2 (08:56→20:24)
[2021-01-18] MEDS: SODIUM HYPOCHLORITE 0.25% (HALF STRENGTH) 480 ML BOTTLE TP SCH ×2 (08:56→20:25)
[2021-01-18] MEDS: FAMOTIDINE 20 MG TABLET GT SCH ×2 (08:56→20:24)
[2021-01-18] MEDS: COD LIVER OIL/ZINC OXIDE OINT 113 GM TUBE TOP SCH ×2 (08:56→20:24)
[2021-01-18] MEDS: VITAMINS A AND D OINT TP SCH ×2 (08:56→20:25)
[2021-01-18] MEDS: ENOXAPARIN SODIUM 40 MG/0.4 ML DISP.SYRIN SQ SCH (09:02)
[2021-01-18] MEDS: HYDROGEN PEROXIDE 3% 118 ML BOTTLE TP SCH ×2 (09:03→20:53)
--- NOTE | 2021-01-18 15:41 | NUR ---
Video call provided with pt. and family. No complaint at this time.
[2021-01-18 18:32] VITALS: BP 142/89
[2021-01-18 20:00] VITALS: BP 153/70
[2021-01-18] MEDS: hydrALAZINE HCL 25 MG TABLET GT SCH (20:23)
[2021-01-18] MEDS: MINERAL OIL/PETROLAT OPHT OINT 3.5 GM TUBE EACHEYE SCH (20:23)
[2021-01-18] MEDS: THIAMINE HCL 100 MG TABLET GT SCH (20:24)
[2021-01-18] MEDS: ATORVASTATIN 40 MG TABLET GT SCH (20:24)
[2021-01-18] MEDS: ASCORBIC ACID 500 MG TABLET GT SCH (20:24)
[2021-01-19] MEDS: INSULIN REGULAR, HUMAN 300 UNIT/3 ML VIAL SQ PRN ×4 (00:03→23:15)
[2021-01-19] MEDS: LEVALBUTEROL HCL 1.25 MG/0.5 ML NEB NEB SCH ×4 (00:54→19:55)
[2021-01-19] MEDS: IPRATROPIUM BROMIDE 0.5 MG/2.5 ML NEBU NEB SCH ×4 (00:54→19:55)
[2021-01-19] MEDS: BLOOD SUGAR DIAGNOSTIC 1 EACH STRIP VI SCH ×4 (05:10→23:14)
[2021-01-19 07:31] VITALS: BP 156/94
[2021-01-19] MEDS: PHENOBARBITAL 97.2 MG GT SCH ×2 (08:59→21:45)
[2021-01-19] MEDS: ACETAMINOPHEN 650 MG/20 ML UDC- SA PATIENTS-PAIN ONLY GT SCH ×2 (08:59→20:30)
[2021-01-19] MEDS: levETIRAcetam 500 MG/5 ML LIQUID UDC GT SCH ×2 (09:00→21:48)
[2021-01-19] MEDS: VITAMINS A AND D OINT TP SCH ×2 (09:00→21:50)
[2021-01-19] MEDS: TERAZOSIN 1 MG CAPSULE GT SCH (09:00)
[2021-01-19] MEDS: FAMOTIDINE 20 MG TABLET GT SCH ×2 (09:01→21:49)
[2021-01-19] MEDS: BACLOFEN 10 MG TABLET GT SCH ×2 (09:01→21:48)
[2021-01-19] MEDS: AMANTADINE HCL 50 MG/5 ML GT SCH ×2 (09:01→21:49)
[2021-01-19] MEDS: METOPROLOL TARTRATE 25 MG TABLET GT SCH ×2 (09:01→21:49)
[2021-01-19] MEDS: COD LIVER OIL/ZINC OXIDE OINT 113 GM TUBE TOP SCH ×2 (09:03→21:50)
[2021-01-19] MEDS: ENOXAPARIN SODIUM 40 MG/0.4 ML DISP.SYRIN SQ SCH (09:03)
[2021-01-19] MEDS: HYDROGEN PEROXIDE 3% 118 ML BOTTLE TP SCH ×2 (09:39→21:56)
[2021-01-19] MEDS: SODIUM HYPOCHLORITE 0.25% (HALF STRENGTH) 480 ML BOTTLE TP SCH ×2 (09:50→21:50)
[2021-01-19] MEDS: hydrALAZINE HCL 25 MG TABLET GT PRN ×2 (11:41→18:34)
[2021-01-19 12:00] VITALS: BP 160/87
[2021-01-19] MEDS: ACETAMINOPHEN 650 MG/20 ML UDC- SA PATIENTS-PAIN ONLY GT PRN (18:37)
[2021-01-19 18:56] VITALS: BP 158/95
[2021-01-19 20:00] VITALS: BP 155/89
[2021-01-19] MEDS: MINERAL OIL/PETROLAT OPHT OINT 3.5 GM TUBE EACHEYE SCH (21:45)
[2021-01-19] MEDS: hydrALAZINE HCL 25 MG TABLET GT SCH (21:45)
[2021-01-19] MEDS: ATORVASTATIN 40 MG TABLET GT SCH (21:48)
[2021-01-19] MEDS: ASCORBIC ACID 500 MG TABLET GT SCH (21:50)
[2021-01-19] MEDS: THIAMINE HCL 100 MG TABLET GT SCH (21:50)
[2021-01-19] MEDS: LORAZEPAM 1 MG TABLET GT PRN (23:15)
[2021-01-20] VITALS (7 sets, daily range): BP systolic 131–170; BP diastolic 71–96
[2021-01-20] MEDS: GLUCERNA 1.2 1000ML LIQUID GT PRN ×2 (01:00→17:37)
[2021-01-20] MEDS: LEVALBUTEROL HCL 1.25 MG/0.5 ML NEB NEB SCH ×4 (02:17→19:06)
[2021-01-20] MEDS: IPRATROPIUM BROMIDE 0.5 MG/2.5 ML NEBU NEB SCH ×4 (02:17→19:06)
[2021-01-20] MEDS: BLOOD SUGAR DIAGNOSTIC 1 EACH STRIP VI SCH ×3 (06:28→17:45)
[2021-01-20] MEDS: INSULIN REGULAR, HUMAN 300 UNIT/3 ML VIAL SQ PRN ×3 (06:28→17:50)
[2021-01-20] MEDS: HYDROGEN PEROXIDE 3% 118 ML BOTTLE TP SCH ×2 (08:20→21:49)
[2021-01-20] MEDS: TERAZOSIN 1 MG CAPSULE GT SCH (08:41)
[2021-01-20] MEDS: ACETAMINOPHEN 650 MG/20 ML UDC- SA PATIENTS-PAIN ONLY GT SCH ×2 (08:41→20:30)
[2021-01-20] MEDS: BACLOFEN 10 MG TABLET GT SCH ×2 (08:42→21:42)
[2021-01-20] MEDS: levETIRAcetam 500 MG/5 ML LIQUID UDC GT SCH ×2 (08:42→21:42)
[2021-01-20] MEDS: AMANTADINE HCL 50 MG/5 ML GT SCH ×2 (08:43→21:43)
[2021-01-20] MEDS: FAMOTIDINE 20 MG TABLET GT SCH ×2 (08:43→21:43)
[2021-01-20] MEDS: METOPROLOL TARTRATE 25 MG TABLET GT SCH ×2 (08:43→21:43)
[2021-01-20] MEDS: PHENOBARBITAL 97.2 MG GT SCH ×2 (09:02→21:42)
[2021-01-20] MEDS: SODIUM HYPOCHLORITE 0.25% (HALF STRENGTH) 480 ML BOTTLE TP SCH ×2 (09:04→21:43)
[2021-01-20] MEDS: ENOXAPARIN SODIUM 40 MG/0.4 ML DISP.SYRIN SQ SCH (09:04)
[2021-01-20] MEDS: COD LIVER OIL/ZINC OXIDE OINT 113 GM TUBE TOP SCH ×2 (09:04→21:43)
[2021-01-20] MEDS: VITAMINS A AND D OINT TP SCH ×2 (09:06→21:43)
--- NOTE | 2021-01-20 15:00 | NUR ---
PT. HAD HIS FATHER VISITING AT THIS TIME FOLLOWING UNIT PRECAUTIONS MEASURES FOR COVID 19 .
--- NOTE | 2021-01-20 16:00 | NUR ---
SEEN AND EXAMINED BY DR. WEBSTER AND WITH NEW ORDER CARRIED OUT FOR QUINTIN RECOMMENDED BY REG. GRADUATE STUDENT INSTRUCTOR FOR WOUND HEALING.
--- NOTE | 2021-01-20 16:35 | NUR ---
PER REG. BLOOD OR BLOOD BANK TECHNICIAN RECOMMENDATION PT. WITH NEW ORDER FOR QUINTIN FOR WOUND HEALING CARRIED OUT.
--- NOTE | 2021-01-20 17:14 | NUR ---
COVID-19 TEST FROM 01/17/2021 RESULTED NEGATIVE. RESPONSIBLE CONSTITUTION PARTY, SARBJIT WATSON NOTIFIED
[2021-01-20] MEDS: MINERAL OIL/PETROLAT OPHT OINT 3.5 GM TUBE EACHEYE SCH (21:41)
[2021-01-20] MEDS: ATORVASTATIN 40 MG TABLET GT SCH (21:42)
[2021-01-20] MEDS: hydrALAZINE HCL 25 MG TABLET GT SCH (21:42)
[2021-01-20] MEDS: THIAMINE HCL 100 MG TABLET GT SCH (21:43)
[2021-01-20] MEDS: ASCORBIC ACID 500 MG TABLET GT SCH (21:43)
[2021-01-21] MEDS: BLOOD SUGAR DIAGNOSTIC 1 EACH STRIP VI SCH ×5 (00:27→23:03)
[2021-01-21] MEDS: INSULIN REGULAR, HUMAN 300 UNIT/3 ML VIAL SQ PRN ×5 (00:32→23:04)
[2021-01-21 00:35] VITALS: BP 130/80
[2021-01-21] MEDS: LEVALBUTEROL HCL 1.25 MG/0.5 ML NEB NEB SCH ×4 (00:55→18:55)
[2021-01-21] MEDS: IPRATROPIUM BROMIDE 0.5 MG/2.5 ML NEBU NEB SCH ×4 (00:55→18:55)
[2021-01-21 06:49] VITALS: BP 150/84
[2021-01-21 07:54] VITALS: BP 148/94
[2021-01-21] MEDS: ACETAMINOPHEN 650 MG/20 ML UDC- SA PATIENTS-PAIN ONLY GT SCH ×2 (08:48→21:16)
[2021-01-21] MEDS: PHENOBARBITAL 97.2 MG GT SCH ×2 (08:48→21:17)
[2021-01-21] MEDS: levETIRAcetam 500 MG/5 ML LIQUID UDC GT SCH ×2 (08:49→21:17)
[2021-01-21] MEDS: ARGININE/GLUTAMINE/CALCIUM BMB 1 EACH POWD.PACK GT SCH ×2 (08:49→17:33)
[2021-01-21] MEDS: TERAZOSIN 1 MG CAPSULE GT SCH (08:49)
[2021-01-21] MEDS: BACLOFEN 10 MG TABLET GT SCH ×2 (08:50→21:17)
[2021-01-21] MEDS: METOPROLOL TARTRATE 25 MG TABLET GT SCH ×2 (08:50→21:17)
[2021-01-21] MEDS: FAMOTIDINE 20 MG TABLET GT SCH ×2 (08:51→21:17)
[2021-01-21] MEDS: AMANTADINE HCL 50 MG/5 ML GT SCH ×2 (08:51→21:18)
[2021-01-21] MEDS: ENOXAPARIN SODIUM 40 MG/0.4 ML DISP.SYRIN SQ SCH (08:52)
[2021-01-21] MEDS: COD LIVER OIL/ZINC OXIDE OINT 113 GM TUBE TOP SCH ×2 (08:52→21:18)
[2021-01-21] MEDS: VITAMINS A AND D OINT TP SCH ×2 (09:00→21:18)
[2021-01-21] MEDS: HYDROGEN PEROXIDE 3% 118 ML BOTTLE TP SCH ×2 (09:18→21:03)
[2021-01-21] MEDS: SODIUM HYPOCHLORITE 0.25% (HALF STRENGTH) 480 ML BOTTLE TP SCH ×2 (09:55→21:18)
[2021-01-21] MEDS: GLUCERNA 1.2 1000ML LIQUID GT PRN (12:08)
[2021-01-21 12:33] VITALS: BP 118/78
--- NOTE | 2021-01-21 16:28 | NUR ---
PT. WAS SEEN AND EXAMINED BY RIGOBERTO CANTU AND WITH NEW ORDERS CARRIED OUT FOR Sunday01/24/21 DEBRIDEMENT.
[2021-01-21] MEDS: MINERAL OIL/PETROLAT OPHT OINT 3.5 GM TUBE EACHEYE SCH (21:16)
[2021-01-21] MEDS: ATORVASTATIN 40 MG TABLET GT SCH (21:17)
[2021-01-21] MEDS: hydrALAZINE HCL 25 MG TABLET GT SCH (21:17)
[2021-01-21] MEDS: THIAMINE HCL 100 MG TABLET GT SCH (21:18)
[2021-01-21] MEDS: ASCORBIC ACID 500 MG TABLET GT SCH (21:18)
[2021-01-21 22:35] VITALS: BP 143/92
[2021-01-21 22:54] VITALS: BP 131/83
[2021-01-22] MEDS: IPRATROPIUM BROMIDE 0.5 MG/2.5 ML NEBU NEB SCH ×4 (01:12→19:49)
[2021-01-22] MEDS: LEVALBUTEROL HCL 1.25 MG/0.5 ML NEB NEB SCH ×4 (01:12→19:49)
[2021-01-22] MEDS: GLUCERNA 1.2 1000ML LIQUID GT PRN (03:32)
[2021-01-22] MEDS: BLOOD SUGAR DIAGNOSTIC 1 EACH STRIP VI SCH ×3 (05:03→17:42)
[2021-01-22] MEDS: INSULIN REGULAR, HUMAN 300 UNIT/3 ML VIAL SQ PRN ×3 (05:05→17:44)
[2021-01-22 05:33] VITALS: BP 140/77
[2021-01-22 07:47] VITALS: BP 157/83
[2021-01-22] MEDS: ACETAMINOPHEN 650 MG/20 ML UDC- SA PATIENTS-PAIN ONLY GT SCH ×2 (08:27→20:49)
[2021-01-22] MEDS: PHENOBARBITAL 97.2 MG GT SCH (08:28)
[2021-01-22] MEDS: TERAZOSIN 1 MG CAPSULE GT SCH (08:29)
[2021-01-22] MEDS: ARGININE/GLUTAMINE/CALCIUM BMB 1 EACH POWD.PACK GT SCH ×2 (08:29→17:31)
[2021-01-22] MEDS: levETIRAcetam 500 MG/5 ML LIQUID UDC GT SCH ×2 (08:30→20:51)
[2021-01-22] MEDS: FAMOTIDINE 20 MG TABLET GT SCH ×2 (08:30→20:51)
[2021-01-22] MEDS: METOPROLOL TARTRATE 25 MG TABLET GT SCH ×2 (08:30→20:51)
[2021-01-22] MEDS: BACLOFEN 10 MG TABLET GT SCH ×2 (08:30→20:51)
[2021-01-22] MEDS: AMANTADINE HCL 50 MG/5 ML GT SCH ×2 (08:31→20:52)
[2021-01-22] MEDS: COD LIVER OIL/ZINC OXIDE OINT 113 GM TUBE TOP SCH ×2 (08:31→20:53)
[2021-01-22] MEDS: VITAMINS A AND D OINT TP SCH ×2 (08:32→20:53)
[2021-01-22] MEDS: SODIUM HYPOCHLORITE 0.25% (HALF STRENGTH) 480 ML BOTTLE TP SCH ×2 (08:32→20:53)
[2021-01-22] MEDS: ENOXAPARIN SODIUM 40 MG/0.4 ML DISP.SYRIN SQ SCH (08:35)
[2021-01-22] MEDS: HYDROGEN PEROXIDE 3% 118 ML BOTTLE TP SCH ×2 (09:54→21:58)
[2021-01-22 12:00] VITALS: BP 142/86
[2021-01-22 18:00] VITALS: BP 151/79
[2021-01-22 20:00] VITALS: BP 146/88
[2021-01-22] MEDS: MINERAL OIL/PETROLAT OPHT OINT 3.5 GM TUBE EACHEYE SCH (20:49)
[2021-01-22] MEDS: ATORVASTATIN 40 MG TABLET GT SCH (20:51)
[2021-01-22] MEDS: hydrALAZINE HCL 25 MG TABLET GT SCH (20:51)
[2021-01-22] MEDS: PHENOBARBITAL 97.2 MG TABLET GT SCH (20:51)
[2021-01-22] MEDS: THIAMINE HCL 100 MG TABLET GT SCH (20:52)
[2021-01-22] MEDS: ASCORBIC ACID 500 MG TABLET GT SCH (20:52)
[2021-01-23] VITALS (7 sets, daily range): BP systolic 132–158; BP diastolic 75–94
[2021-01-23] MEDS: BLOOD SUGAR DIAGNOSTIC 1 EACH STRIP VI SCH ×4 (00:12→17:17)
[2021-01-23] MEDS: INSULIN REGULAR, HUMAN 300 UNIT/3 ML VIAL SQ PRN ×4 (00:17→17:18)
[2021-01-23] MEDS: IPRATROPIUM BROMIDE 0.5 MG/2.5 ML NEBU NEB SCH ×4 (01:45→19:46)
[2021-01-23] MEDS: LEVALBUTEROL HCL 1.25 MG/0.5 ML NEB NEB SCH ×4 (01:45→19:46)
[2021-01-23] MEDS: HYDROGEN PEROXIDE 3% 118 ML BOTTLE TP SCH ×2 (07:33→21:00)
[2021-01-23] MEDS: ACETAMINOPHEN 650 MG/20 ML UDC- SA PATIENTS-PAIN ONLY GT SCH ×2 (09:02→20:30)
[2021-01-23] MEDS: ARGININE/GLUTAMINE/CALCIUM BMB 1 EACH POWD.PACK GT SCH ×2 (09:03→17:14)
[2021-01-23] MEDS: TERAZOSIN 1 MG CAPSULE GT SCH (09:03)
[2021-01-23] MEDS: BACLOFEN 10 MG TABLET GT SCH ×2 (09:04→21:00)
[2021-01-23] MEDS: levETIRAcetam 500 MG/5 ML LIQUID UDC GT SCH ×2 (09:04→21:00)
[2021-01-23] MEDS: AMANTADINE HCL 50 MG/5 ML GT SCH ×2 (09:05→21:00)
[2021-01-23] MEDS: PHENOBARBITAL 97.2 MG TABLET GT SCH ×2 (09:05→21:00)
[2021-01-23] MEDS: ENOXAPARIN SODIUM 40 MG/0.4 ML DISP.SYRIN SQ SCH (09:05)
[2021-01-23] MEDS: METOPROLOL TARTRATE 25 MG TABLET GT SCH ×2 (09:05→21:00)
[2021-01-23] MEDS: FAMOTIDINE 20 MG TABLET GT SCH ×2 (09:05→21:00)
[2021-01-23] MEDS: COD LIVER OIL/ZINC OXIDE OINT 113 GM TUBE TOP SCH ×2 (09:06→21:00)
[2021-01-23] MEDS: SODIUM HYPOCHLORITE 0.25% (HALF STRENGTH) 480 ML BOTTLE TP SCH ×2 (09:06→21:00)
[2021-01-23] MEDS: VITAMINS A AND D OINT TP SCH ×2 (09:06→21:00)
--- NOTE | 2021-01-23 12:03 | NUR ---
CONSENT OBTAINED BY PHONE FROM PT'S RESP. LIBERTARIAN SARBJIT FOR SACRAL WOUND DEBRIDEMENT TOMORROW BY RIGOBERTO VAZQUEZ AND WITH ORDER CLARIFIED FROM HER AND CARRIED OUT,
--- NOTE | 2021-01-23 12:05 | NUR ---
CONSENT GIVEN TO 2 NURSES BY PHONE FROM SARBJIT FOR SACRAL DEBRIDEMENT TOMORROW TO BE DONE BY GEORGE FRANKLIN. MSN
[2021-01-23] MEDS: GLUCERNA 1.2 1000ML LIQUID GT PRN (13:41)
[2021-01-23] MEDS: hydrALAZINE HCL 25 MG TABLET GT PRN (13:41)
--- NOTE | 2021-01-23 16:16 | NUR ---
SARBJIT BANDA CONSTITUTION PARTY WAS CALLED RE :COVID 19 TEST BUT NOT PICKING UP PHONE AND NOT ACCEPTING VOICE MAILS.
--- NOTE | 2021-01-23 17:00 | NUR ---
PER PT'S RESP LIBERTARIAN SARBJIT ONLY CALL HER FOR COVID 19 TEST RESULTS.
[2021-01-23] MEDS: ATORVASTATIN 40 MG TABLET GT SCH (21:00)
[2021-01-23] MEDS: ASCORBIC ACID 500 MG TABLET GT SCH (21:00)
[2021-01-23] MEDS: THIAMINE HCL 100 MG TABLET GT SCH (21:00)
[2021-01-23] MEDS: MINERAL OIL/PETROLAT OPHT OINT 3.5 GM TUBE EACHEYE SCH (21:59)
[2021-01-23] MEDS: hydrALAZINE HCL 25 MG TABLET GT SCH (22:01)
[2021-01-24] VITALS: BP 135/72
[2021-01-24] MEDS: INSULIN REGULAR, HUMAN 300 UNIT/3 ML VIAL SQ PRN ×4 (00:30→17:37)
[2021-01-24] MEDS: BLOOD SUGAR DIAGNOSTIC 1 EACH STRIP VI SCH ×4 (00:46→17:42)
[2021-01-24] MEDS: LEVALBUTEROL HCL 1.25 MG/0.5 ML NEB NEB SCH ×4 (02:10→18:52)
[2021-01-24] MEDS: IPRATROPIUM BROMIDE 0.5 MG/2.5 ML NEBU NEB SCH ×4 (02:10→18:52)
[2021-01-24] MEDS: LORAZEPAM 1 MG TABLET GT PRN (05:00)
[2021-01-24 07:20] VITALS: BP 153/88
[2021-01-24] MEDS: ACETAMINOPHEN 650 MG/20 ML UDC- SA PATIENTS-PAIN ONLY GT SCH ×2 (08:51→20:30)
[2021-01-24] MEDS: TERAZOSIN 1 MG CAPSULE GT SCH (08:52)
[2021-01-24] MEDS: ARGININE/GLUTAMINE/CALCIUM BMB 1 EACH POWD.PACK GT SCH ×2 (08:52→17:42)
[2021-01-24] MEDS: BACLOFEN 10 MG TABLET GT SCH ×2 (08:53→21:41)
[2021-01-24] MEDS: levETIRAcetam 500 MG/5 ML LIQUID UDC GT SCH ×2 (08:53→21:41)
[2021-01-24] MEDS: FAMOTIDINE 20 MG TABLET GT SCH ×2 (08:54→21:42)
[2021-01-24] MEDS: METOPROLOL TARTRATE 25 MG TABLET GT SCH ×2 (08:54→21:42)
[2021-01-24] MEDS: SODIUM HYPOCHLORITE 0.25% (HALF STRENGTH) 480 ML BOTTLE TP SCH ×2 (08:57→21:45)
[2021-01-24] MEDS: COD LIVER OIL/ZINC OXIDE OINT 113 GM TUBE TOP SCH ×2 (08:57→21:45)
[2021-01-24] MEDS: AMANTADINE HCL 50 MG/5 ML GT SCH ×2 (08:57→21:45)
[2021-01-24] MEDS: VITAMINS A AND D OINT TP SCH ×2 (08:58→21:45)
[2021-01-24] MEDS ORDERED: SODIUM HYPOCHLORITE 0.125% (QUARTER STRENGTH) 473 ML BOTTLE TP PRN (09:00)
[2021-01-24] MEDS ORDERED: LIDOCAINE 1%-EPI 1:100,000 20 ML VIAL IJ PRN (09:00)
[2021-01-24] MEDS ORDERED: SILVER NITRATE APPLICATOR STICK EACH TP PRN (09:00)
[2021-01-24] MEDS: PHENOBARBITAL 97.2 MG TABLET GT SCH ×2 (09:05→21:42)
[2021-01-24] MEDS: ENOXAPARIN SODIUM 40 MG/0.4 ML DISP.SYRIN SQ SCH (09:08)
[2021-01-24] MEDS: HYDROGEN PEROXIDE 3% 118 ML BOTTLE TP SCH ×2 (09:50→21:00)
--- NOTE | 2021-01-24 14:27 | NUR ---
COVID 19 TEST DONE AND PT. WAS SEEN BY FABY Montoya AND WITH NNO.
[2021-01-24 20:16] VITALS: BP 157/85
[2021-01-24] MEDS: MINERAL OIL/PETROLAT OPHT OINT 3.5 GM TUBE EACHEYE SCH (21:40)
[2021-01-24] MEDS: ATORVASTATIN 40 MG TABLET GT SCH (21:41)
[2021-01-24] MEDS: hydrALAZINE HCL 25 MG TABLET GT SCH (21:41)
[2021-01-24] MEDS: ASCORBIC ACID 500 MG TABLET GT SCH (21:45)
[2021-01-24] MEDS: THIAMINE HCL 100 MG TABLET GT SCH (21:45)
[2021-01-25] VITALS: BP 143/85
[2021-01-25] MEDS: LEVALBUTEROL HCL 1.25 MG/0.5 ML NEB NEB SCH ×4 (00:53→19:25)
[2021-01-25] MEDS: IPRATROPIUM BROMIDE 0.5 MG/2.5 ML NEBU NEB SCH ×4 (00:53→19:25)
[2021-01-25] MEDS: BLOOD SUGAR DIAGNOSTIC 1 EACH STRIP VI SCH ×4 (00:57→17:16)
[2021-01-25] MEDS: GLUCERNA 1.2 1000ML LIQUID GT PRN ×2 (01:40→17:20)
[2021-01-25] MEDS: INSULIN REGULAR, HUMAN 300 UNIT/3 ML VIAL SQ PRN ×2 (01:44→11:40)
[2021-01-25 06:00] VITALS: BP 136/89
[2021-01-25 07:18] VITALS: BP 146/90
[2021-01-25] MEDS: ENOXAPARIN SODIUM 40 MG/0.4 ML DISP.SYRIN SQ SCH (08:04)
[2021-01-25] MEDS: ACETAMINOPHEN 650 MG/20 ML UDC- SA PATIENTS-PAIN ONLY GT SCH ×2 (08:05→20:30)
[2021-01-25] MEDS: TERAZOSIN 1 MG CAPSULE GT SCH (08:05)
[2021-01-25] MEDS: PHENOBARBITAL 97.2 MG TABLET GT SCH ×2 (08:05→21:40)
[2021-01-25] MEDS: VITAMINS A AND D OINT TP SCH ×2 (08:06→21:42)
[2021-01-25] MEDS: COD LIVER OIL/ZINC OXIDE OINT 113 GM TUBE TOP SCH ×2 (08:06→21:42)
[2021-01-25] MEDS: FAMOTIDINE 20 MG TABLET GT SCH ×2 (08:06→21:38)
[2021-01-25] MEDS: ARGININE/GLUTAMINE/CALCIUM BMB 1 EACH POWD.PACK GT SCH ×2 (08:06→17:14)
[2021-01-25] MEDS: levETIRAcetam 500 MG/5 ML LIQUID UDC GT SCH ×2 (08:06→21:35)
[2021-01-25] MEDS: METOPROLOL TARTRATE 25 MG TABLET GT SCH ×2 (08:06→21:38)
[2021-01-25] MEDS: AMANTADINE HCL 50 MG/5 ML GT SCH ×2 (08:06→21:40)
[2021-01-25] MEDS: BACLOFEN 10 MG TABLET GT SCH ×2 (08:06→21:35)
[2021-01-25] MEDS: SODIUM HYPOCHLORITE 0.25% (HALF STRENGTH) 480 ML BOTTLE TP SCH (08:45)
[2021-01-25] MEDS: HYDROGEN PEROXIDE 3% 118 ML BOTTLE TP SCH ×2 (09:40→20:14)
[2021-01-25 12:00] VITALS: BP 123/72
[2021-01-25 20:00] VITALS: BP 153/86
[2021-01-25] MEDS: MINERAL OIL/PETROLAT OPHT OINT 3.5 GM TUBE EACHEYE SCH (21:33)
[2021-01-25] MEDS: hydrALAZINE HCL 25 MG TABLET GT SCH (21:35)
[2021-01-25] MEDS: ATORVASTATIN 40 MG TABLET GT SCH (21:38)
[2021-01-25] MEDS: THIAMINE HCL 100 MG TABLET GT SCH (21:40)
[2021-01-25] MEDS: ASCORBIC ACID 500 MG TABLET GT SCH (21:42)
[2021-01-25 22:00] VITALS: BP 129/74
[2021-01-26 00:14] VITALS: BP 129/74
[2021-01-26] MEDS: INSULIN REGULAR, HUMAN 300 UNIT/3 ML VIAL SQ PRN ×3 (00:21→17:11)
[2021-01-26] MEDS: BLOOD SUGAR DIAGNOSTIC 1 EACH STRIP VI SCH ×4 (00:21→17:10)
[2021-01-26] MEDS: IPRATROPIUM BROMIDE 0.5 MG/2.5 ML NEBU NEB SCH ×4 (00:51→18:59)
[2021-01-26] MEDS: LEVALBUTEROL HCL 1.25 MG/0.5 ML NEB NEB SCH ×4 (00:51→18:59)
[2021-01-26 06:08] VITALS: BP 150/86
[2021-01-26] MEDS: HYDROGEN PEROXIDE 3% 118 ML BOTTLE TP SCH ×2 (07:32→21:08)
[2021-01-26 07:48] VITALS: BP 151/82
[2021-01-26] MEDS: TERAZOSIN 1 MG CAPSULE GT SCH (08:15)
[2021-01-26] MEDS: ARGININE/GLUTAMINE/CALCIUM BMB 1 EACH POWD.PACK GT SCH ×2 (08:16→17:04)
[2021-01-26] MEDS: levETIRAcetam 500 MG/5 ML LIQUID UDC GT SCH ×2 (08:17→21:52)
[2021-01-26] MEDS: BACLOFEN 10 MG TABLET GT SCH ×2 (08:17→21:53)
[2021-01-26] MEDS: METOPROLOL TARTRATE 25 MG TABLET GT SCH ×2 (08:18→21:53)
[2021-01-26] MEDS: PHENOBARBITAL 97.2 MG TABLET GT SCH ×2 (08:18→21:53)
[2021-01-26] MEDS: FAMOTIDINE 20 MG TABLET GT SCH ×2 (08:18→21:53)
[2021-01-26] MEDS: AMANTADINE HCL 50 MG/5 ML GT SCH ×2 (08:18→21:53)
[2021-01-26] MEDS: ENOXAPARIN SODIUM 40 MG/0.4 ML DISP.SYRIN SQ SCH (08:23)
[2021-01-26] MEDS: COD LIVER OIL/ZINC OXIDE OINT 113 GM TUBE TOP SCH ×2 (08:27→21:54)
[2021-01-26] MEDS: ACETAMINOPHEN 650 MG/20 ML UDC- SA PATIENTS-PAIN ONLY GT SCH ×2 (08:27→20:30)
[2021-01-26] MEDS: VITAMINS A AND D OINT TP SCH ×2 (09:00→21:55)
[2021-01-26] MEDS: GLUCERNA 1.2 1000ML LIQUID GT PRN (11:18)
[2021-01-26 11:34] VITALS: BP 149/90
--- NOTE | 2021-01-26 16:00 | NUR ---
Video chat done with pt's . Addendum: 01/26/21 at 1850 by TATYANA CHOWDARY LVN ERROR, WRONG DOCUMENTATION.
[2021-01-26 20:00] VITALS: BP 146/84
[2021-01-26] MEDS: MINERAL OIL/PETROLAT OPHT OINT 3.5 GM TUBE EACHEYE SCH (21:50)
[2021-01-26] MEDS: hydrALAZINE HCL 25 MG TABLET GT SCH (21:52)
[2021-01-26] MEDS: ATORVASTATIN 40 MG TABLET GT SCH (21:53)
[2021-01-26] MEDS: ASCORBIC ACID 500 MG TABLET GT SCH (21:54)
[2021-01-26] MEDS: THIAMINE HCL 100 MG TABLET GT SCH (21:54)
[2021-01-27] VITALS (7 sets, daily range): BP systolic 132–144; BP diastolic 76–89
[2021-01-27] MEDS: BLOOD SUGAR DIAGNOSTIC 1 EACH STRIP VI SCH ×4 (00:20→17:37)
[2021-01-27] MEDS: INSULIN REGULAR, HUMAN 300 UNIT/3 ML VIAL SQ PRN ×4 (00:21→17:38)
[2021-01-27] MEDS: IPRATROPIUM BROMIDE 0.5 MG/2.5 ML NEBU NEB SCH ×4 (01:00→19:16)
[2021-01-27] MEDS: LEVALBUTEROL HCL 1.25 MG/0.5 ML NEB NEB SCH ×4 (01:00→19:16)
[2021-01-27] MEDS: GLUCERNA 1.2 1000ML LIQUID GT PRN ×2 (04:48→23:15)
--- NOTE | 2021-01-27 05:46 | NUR ---
Renewed treatment to sacral wound X 30 days then re-eval.
[2021-01-27] MEDS: THERAHONEY GEL 1.5 OZ TUBE TOP SCH ×3 (05:49→21:00)
[2021-01-27] MEDS: COD LIVER OIL/ZINC OXIDE OINT 113 GM TUBE TOP SCH ×5 (05:49→21:00)
[2021-01-27] MEDS: SODIUM HYPOCHLORITE 0.125% (QUARTER STRENGTH) 473 ML BOTTLE TP SCH ×3 (05:50→21:00)
[2021-01-27] MEDS: HYDROGEN PEROXIDE 3% 118 ML BOTTLE TP SCH ×2 (07:32→21:25)
[2021-01-27] MEDS: TERAZOSIN 1 MG CAPSULE GT SCH (08:09)
[2021-01-27] MEDS: ACETAMINOPHEN 650 MG/20 ML UDC- SA PATIENTS-PAIN ONLY GT SCH ×2 (08:09→20:30)
[2021-01-27] MEDS: ARGININE/GLUTAMINE/CALCIUM BMB 1 EACH POWD.PACK GT SCH ×2 (08:10→17:34)
[2021-01-27] MEDS: levETIRAcetam 500 MG/5 ML LIQUID UDC GT SCH ×2 (08:11→21:48)
[2021-01-27] MEDS: BACLOFEN 10 MG TABLET GT SCH ×2 (08:11→21:48)
[2021-01-27] MEDS: FAMOTIDINE 20 MG TABLET GT SCH ×2 (08:12→21:00)
[2021-01-27] MEDS: AMANTADINE HCL 50 MG/5 ML GT SCH ×2 (08:12→21:00)
[2021-01-27] MEDS: PHENOBARBITAL 97.2 MG TABLET GT SCH ×2 (08:12→21:00)
[2021-01-27] MEDS: METOPROLOL TARTRATE 25 MG TABLET GT SCH ×2 (08:12→22:02)
[2021-01-27] MEDS: ENOXAPARIN SODIUM 40 MG/0.4 ML DISP.SYRIN SQ SCH (08:15)
[2021-01-27] MEDS: VITAMINS A AND D OINT TP SCH ×2 (09:00→21:00)
--- NOTE | 2021-01-27 20:20 | NUR ---
COVID-19 TEST FROM 01/24/2021 RESULTED NEGATIVE. RESPONSIBLE GREEN PARTY, SARBJIT WATSON NOTIFIED
[2021-01-27] MEDS: THIAMINE HCL 100 MG TABLET GT SCH (21:00)
[2021-01-27] MEDS: ASCORBIC ACID 500 MG TABLET GT SCH (21:00)
[2021-01-27] MEDS: MINERAL OIL/PETROLAT OPHT OINT 3.5 GM TUBE EACHEYE SCH (21:47)
[2021-01-27] MEDS: hydrALAZINE HCL 25 MG TABLET GT SCH (21:48)
[2021-01-27] MEDS: ATORVASTATIN 40 MG TABLET GT SCH (21:49)
[2021-01-28] MEDS: BLOOD SUGAR DIAGNOSTIC 1 EACH STRIP VI SCH ×5 (00:48→23:14)
[2021-01-28] MEDS: INSULIN REGULAR, HUMAN 300 UNIT/3 ML VIAL SQ PRN ×5 (00:53→23:15)
[2021-01-28 01:13] VITALS: BP 142/89
[2021-01-28] MEDS: IPRATROPIUM BROMIDE 0.5 MG/2.5 ML NEBU NEB SCH ×4 (01:14→19:21)
[2021-01-28] MEDS: LEVALBUTEROL HCL 1.25 MG/0.5 ML NEB NEB SCH ×4 (01:14→19:21)
[2021-01-28 06:11] VITALS: BP 146/80
[2021-01-28 07:44] VITALS: BP 143/84
[2021-01-28] MEDS: BACLOFEN 10 MG TABLET GT SCH ×2 (08:30→20:25)
[2021-01-28] MEDS: ARGININE/GLUTAMINE/CALCIUM BMB 1 EACH POWD.PACK GT SCH ×2 (08:30→17:01)
[2021-01-28] MEDS: TERAZOSIN 1 MG CAPSULE GT SCH (08:30)
[2021-01-28] MEDS: levETIRAcetam 500 MG/5 ML LIQUID UDC GT SCH ×2 (08:30→20:25)
[2021-01-28] MEDS: ACETAMINOPHEN 650 MG/20 ML UDC- SA PATIENTS-PAIN ONLY GT SCH ×2 (08:30→20:25)
[2021-01-28] MEDS: METOPROLOL TARTRATE 25 MG TABLET GT SCH ×2 (08:31→20:25)
[2021-01-28] MEDS: PHENOBARBITAL 97.2 MG TABLET GT SCH ×2 (08:31→20:25)
[2021-01-28] MEDS: AMANTADINE HCL 50 MG/5 ML GT SCH ×2 (08:31→20:25)
[2021-01-28] MEDS: FAMOTIDINE 20 MG TABLET GT SCH ×2 (08:31→20:25)
[2021-01-28] MEDS: THERAHONEY GEL 1.5 OZ TUBE TOP SCH ×2 (08:32→21:12)
[2021-01-28] MEDS: ENOXAPARIN SODIUM 40 MG/0.4 ML DISP.SYRIN SQ SCH (08:32)
[2021-01-28] MEDS: SODIUM HYPOCHLORITE 0.125% (QUARTER STRENGTH) 473 ML BOTTLE TP SCH ×2 (08:32→21:12)
[2021-01-28] MEDS: VITAMINS A AND D OINT TP SCH ×2 (08:32→21:12)
[2021-01-28] MEDS: COD LIVER OIL/ZINC OXIDE OINT 113 GM TUBE TOP SCH ×4 (08:32→21:12)
[2021-01-28] MEDS: HYDROGEN PEROXIDE 3% 118 ML BOTTLE TP SCH ×2 (09:00→21:55)
[2021-01-28 12:00] VITALS: BP 151/84
[2021-01-28] MEDS: GLUCERNA 1.2 1000ML LIQUID GT PRN (13:55)
--- NOTE | 2021-01-28 17:00 | NUR ---
visited by daughter.
[2021-01-28] MEDS: ATORVASTATIN 40 MG TABLET GT SCH (20:25)
[2021-01-28] MEDS: THIAMINE HCL 100 MG TABLET GT SCH (20:25)
[2021-01-28] MEDS: hydrALAZINE HCL 25 MG TABLET GT SCH (20:25)
[2021-01-28] MEDS: ASCORBIC ACID 500 MG TABLET GT SCH (20:25)
[2021-01-28] MEDS: MINERAL OIL/PETROLAT OPHT OINT 3.5 GM TUBE EACHEYE SCH (20:25)
[2021-01-28 20:42] VITALS: BP 139/78
[2021-01-29] VITALS (7 sets, daily range): BP systolic 118–161; BP diastolic 74–97
[2021-01-29] MEDS: LEVALBUTEROL HCL 1.25 MG/0.5 ML NEB NEB SCH ×4 (00:48→19:14)
[2021-01-29] MEDS: IPRATROPIUM BROMIDE 0.5 MG/2.5 ML NEBU NEB SCH ×4 (00:48→19:14)
[2021-01-29] MEDS: GLUCERNA 1.2 1000ML LIQUID GT PRN ×2 (02:23→18:55)
[2021-01-29] MEDS: BLOOD SUGAR DIAGNOSTIC 1 EACH STRIP VI SCH ×4 (05:30→23:02)
[2021-01-29] MEDS: INSULIN REGULAR, HUMAN 300 UNIT/3 ML VIAL SQ PRN ×4 (05:31→23:05)
[2021-01-29] MEDS: hydrALAZINE HCL 25 MG TABLET GT PRN (06:12)
[2021-01-29] MEDS: HYDROGEN PEROXIDE 3% 118 ML BOTTLE TP SCH ×2 (07:51→21:32)
[2021-01-29] MEDS: ACETAMINOPHEN 650 MG/20 ML UDC- SA PATIENTS-PAIN ONLY GT SCH ×2 (08:52→20:30)
[2021-01-29] MEDS: levETIRAcetam 500 MG/5 ML LIQUID UDC GT SCH ×2 (08:53→20:31)
[2021-01-29] MEDS: BACLOFEN 10 MG TABLET GT SCH ×2 (08:53→20:31)
[2021-01-29] MEDS: ARGININE/GLUTAMINE/CALCIUM BMB 1 EACH POWD.PACK GT SCH ×2 (08:53→17:09)
[2021-01-29] MEDS: TERAZOSIN 1 MG CAPSULE GT SCH (08:53)
[2021-01-29] MEDS: FAMOTIDINE 20 MG TABLET GT SCH ×2 (08:54→20:31)
[2021-01-29] MEDS: AMANTADINE HCL 50 MG/5 ML GT SCH ×2 (08:54→20:31)
[2021-01-29] MEDS: METOPROLOL TARTRATE 25 MG TABLET GT SCH ×2 (08:54→20:31)
[2021-01-29] MEDS: HEPARIN SODIUM,PORCINE 5,000 UNITS/ML VIAL SQ SCH ×2 (08:55→21:31)
[2021-01-29] MEDS: COD LIVER OIL/ZINC OXIDE OINT 113 GM TUBE TOP SCH ×4 (08:55→21:33)
[2021-01-29] MEDS: VITAMINS A AND D OINT TP SCH ×2 (08:56→21:33)
[2021-01-29] MEDS: PHENOBARBITAL 97.2 MG TABLET GT SCH ×2 (09:01→20:31)
[2021-01-29] MEDS: THERAHONEY GEL 1.5 OZ TUBE TOP SCH ×2 (09:30→21:33)
[2021-01-29] MEDS: SODIUM HYPOCHLORITE 0.125% (QUARTER STRENGTH) 473 ML BOTTLE TP SCH ×2 (09:31→21:33)
[2021-01-29] MEDS: ACETAMINOPHEN 650 MG/20 ML UDC- SA PATIENTS-PAIN ONLY GT PRN (17:10)
[2021-01-29] MEDS: MINERAL OIL/PETROLAT OPHT OINT 3.5 GM TUBE EACHEYE SCH (20:30)
[2021-01-29] MEDS: hydrALAZINE HCL 25 MG TABLET GT SCH (20:31)
[2021-01-29] MEDS: ATORVASTATIN 40 MG TABLET GT SCH (20:31)
[2021-01-29] MEDS: ASCORBIC ACID 500 MG TABLET GT SCH (20:31)
[2021-01-29] MEDS: THIAMINE HCL 100 MG TABLET GT SCH (20:31)
[2021-01-30 00:36] VITALS: BP 136/88
[2021-01-30] MEDS: IPRATROPIUM BROMIDE 0.5 MG/2.5 ML NEBU NEB SCH ×4 (00:59→19:20)
[2021-01-30] MEDS: LEVALBUTEROL HCL 1.25 MG/0.5 ML NEB NEB SCH ×4 (00:59→19:20)
[2021-01-30] MEDS: BLOOD SUGAR DIAGNOSTIC 1 EACH STRIP VI SCH ×4 (05:49→23:19)
[2021-01-30] MEDS: INSULIN REGULAR, HUMAN 300 UNIT/3 ML VIAL SQ PRN ×4 (05:50→23:23)
[2021-01-30 06:09] VITALS: BP 150/84
[2021-01-30 07:54] VITALS: BP 147/90
[2021-01-30] MEDS: ACETAMINOPHEN 650 MG/20 ML UDC- SA PATIENTS-PAIN ONLY GT SCH ×2 (08:58→20:27)
[2021-01-30] MEDS: ARGININE/GLUTAMINE/CALCIUM BMB 1 EACH POWD.PACK GT SCH ×2 (08:59→17:12)
[2021-01-30] MEDS: TERAZOSIN 1 MG CAPSULE GT SCH (08:59)
[2021-01-30] MEDS: HYDROGEN PEROXIDE 3% 118 ML BOTTLE TP SCH ×2 (09:00→20:49)
[2021-01-30] MEDS: levETIRAcetam 500 MG/5 ML LIQUID UDC GT SCH ×2 (09:00→20:27)
[2021-01-30] MEDS: BACLOFEN 10 MG TABLET GT SCH ×2 (09:01→20:28)
[2021-01-30] MEDS: FAMOTIDINE 20 MG TABLET GT SCH ×2 (09:02→20:28)
[2021-01-30] MEDS: METOPROLOL TARTRATE 25 MG TABLET GT SCH ×2 (09:04→20:28)
[2021-01-30] MEDS: AMANTADINE HCL 50 MG/5 ML GT SCH ×2 (09:04→20:28)
[2021-01-30] MEDS: COD LIVER OIL/ZINC OXIDE OINT 113 GM TUBE TOP SCH ×4 (09:04→21:31)
[2021-01-30] MEDS: PHENOBARBITAL 97.2 MG TABLET GT SCH ×2 (09:05→20:28)
[2021-01-30] MEDS: HEPARIN SODIUM,PORCINE 5,000 UNITS/ML VIAL SQ SCH ×2 (09:05→21:32)
[2021-01-30] MEDS: SODIUM HYPOCHLORITE 0.125% (QUARTER STRENGTH) 473 ML BOTTLE TP SCH ×2 (09:05→21:31)
[2021-01-30] MEDS: VITAMINS A AND D OINT TP SCH ×2 (09:05→21:31)
[2021-01-30] MEDS: THERAHONEY GEL 1.5 OZ TUBE TOP SCH ×2 (09:05→21:31)
[2021-01-30 12:15] VITALS: BP 127/82
[2021-01-30] MEDS: GLUCERNA 1.2 1000ML LIQUID GT PRN (12:59)
[2021-01-30 17:18] VITALS: BP 155/91
[2021-01-30 20:00] VITALS: BP 145/84
[2021-01-30] MEDS: hydrALAZINE HCL 25 MG TABLET GT SCH (20:27)
[2021-01-30] MEDS: MINERAL OIL/PETROLAT OPHT OINT 3.5 GM TUBE EACHEYE SCH (20:27)
[2021-01-30] MEDS: ATORVASTATIN 40 MG TABLET GT SCH (20:28)
[2021-01-30] MEDS: THIAMINE HCL 100 MG TABLET GT SCH (20:28)
[2021-01-30] MEDS: ASCORBIC ACID 500 MG TABLET GT SCH (20:28)
[2021-01-31 00:01] VITALS: BP 144/91
[2021-01-31] MEDS: LEVALBUTEROL HCL 1.25 MG/0.5 ML NEB NEB SCH ×4 (01:00→18:55)
[2021-01-31] MEDS: IPRATROPIUM BROMIDE 0.5 MG/2.5 ML NEBU NEB SCH ×4 (01:00→18:55)
[2021-01-31] MEDS: GLUCERNA 1.2 1000ML LIQUID GT PRN (05:02)
[2021-01-31] MEDS: BLOOD SUGAR DIAGNOSTIC 1 EACH STRIP VI SCH ×3 (05:02→17:23)
[2021-01-31] MEDS: INSULIN REGULAR, HUMAN 300 UNIT/3 ML VIAL SQ PRN ×2 (05:05→12:53)
[2021-01-31 07:18] VITALS: BP 143/76
[2021-01-31] MEDS: HYDROGEN PEROXIDE 3% 118 ML BOTTLE TP SCH ×2 (08:57→20:06)
[2021-01-31] MEDS: ACETAMINOPHEN 650 MG/20 ML UDC- SA PATIENTS-PAIN ONLY GT SCH ×2 (09:24→20:30)
[2021-01-31] MEDS: TERAZOSIN 1 MG CAPSULE GT SCH (09:25)
[2021-01-31] MEDS: ARGININE/GLUTAMINE/CALCIUM BMB 1 EACH POWD.PACK GT SCH ×2 (09:25→17:23)
[2021-01-31] MEDS: levETIRAcetam 500 MG/5 ML LIQUID UDC GT SCH ×2 (09:26→21:17)
[2021-01-31] MEDS: METOPROLOL TARTRATE 25 MG TABLET GT SCH ×2 (09:27→21:18)
[2021-01-31] MEDS: FAMOTIDINE 20 MG TABLET GT SCH ×2 (09:27→21:18)
[2021-01-31] MEDS: BACLOFEN 10 MG TABLET GT SCH ×2 (09:27→21:17)
[2021-01-31] MEDS: PHENOBARBITAL 97.2 MG TABLET GT SCH ×2 (09:28→21:18)
[2021-01-31] MEDS: AMANTADINE HCL 50 MG/5 ML GT SCH ×2 (09:28→21:18)
[2021-01-31] MEDS: COD LIVER OIL/ZINC OXIDE OINT 113 GM TUBE TOP SCH ×4 (09:31→21:19)
[2021-01-31] MEDS: HEPARIN SODIUM,PORCINE 5,000 UNITS/ML VIAL SQ SCH ×2 (09:31→21:58)
[2021-01-31] MEDS: THERAHONEY GEL 1.5 OZ TUBE TOP SCH ×2 (09:32→21:19)
[2021-01-31] MEDS: VITAMINS A AND D OINT TP SCH ×2 (09:32→21:19)
[2021-01-31] MEDS: SODIUM HYPOCHLORITE 0.125% (QUARTER STRENGTH) 473 ML BOTTLE TP SCH ×2 (09:32→21:19)
[2021-01-31 20:15] VITALS: BP 142/72
[2021-01-31] MEDS: MINERAL OIL/PETROLAT OPHT OINT 3.5 GM TUBE EACHEYE SCH (21:16)
[2021-01-31] MEDS: ATORVASTATIN 40 MG TABLET GT SCH (21:17)
[2021-01-31] MEDS: hydrALAZINE HCL 25 MG TABLET GT SCH (21:17)
[2021-01-31] MEDS: THIAMINE HCL 100 MG TABLET GT SCH (21:18)
[2021-01-31] MEDS: ASCORBIC ACID 500 MG TABLET GT SCH (21:19)
[2021-02-01] MEDS: BLOOD SUGAR DIAGNOSTIC 1 EACH STRIP VI SCH ×5 (00:51→23:23)
[2021-02-01] MEDS: INSULIN REGULAR, HUMAN 300 UNIT/3 ML VIAL SQ PRN ×3 (00:56→11:57)
[2021-02-01] MEDS: LEVALBUTEROL HCL 1.25 MG/0.5 ML NEB NEB SCH ×4 (01:07→19:49)
[2021-02-01] MEDS: IPRATROPIUM BROMIDE 0.5 MG/2.5 ML NEBU NEB SCH ×4 (01:07→19:48)
[2021-02-01] MEDS: GLUCERNA 1.2 1000ML LIQUID GT PRN (05:30)
[2021-02-01 07:16] VITALS: BP 170/85
[2021-02-01] MEDS: TERAZOSIN 1 MG CAPSULE GT SCH (09:03)
[2021-02-01] MEDS: ARGININE/GLUTAMINE/CALCIUM BMB 1 EACH POWD.PACK GT SCH ×2 (09:04→17:35)
[2021-02-01] MEDS: levETIRAcetam 500 MG/5 ML LIQUID UDC GT SCH ×2 (09:13→20:06)
[2021-02-01] MEDS: ACETAMINOPHEN 650 MG/20 ML UDC- SA PATIENTS-PAIN ONLY GT SCH ×2 (09:13→20:05)
[2021-02-01] MEDS: BACLOFEN 10 MG TABLET GT SCH ×2 (09:15→20:06)
[2021-02-01] MEDS: FAMOTIDINE 20 MG TABLET GT SCH ×2 (09:16→20:06)
[2021-02-01] MEDS: COD LIVER OIL/ZINC OXIDE OINT 113 GM TUBE TOP SCH ×4 (09:16→21:27)
[2021-02-01] MEDS: PHENOBARBITAL 97.2 MG TABLET GT SCH ×2 (09:16→20:06)
[2021-02-01] MEDS: AMANTADINE HCL 50 MG/5 ML GT SCH ×2 (09:16→20:06)
[2021-02-01] MEDS: THERAHONEY GEL 1.5 OZ TUBE TOP SCH ×2 (09:16→21:27)
[2021-02-01] MEDS: SODIUM HYPOCHLORITE 0.125% (QUARTER STRENGTH) 473 ML BOTTLE TP SCH ×2 (09:17→21:28)
[2021-02-01] MEDS: VITAMINS A AND D OINT TP SCH ×2 (09:17→20:07)
[2021-02-01 09:35] VITALS: BP 139/82
[2021-02-01] MEDS: METOPROLOL TARTRATE 25 MG TABLET GT SCH ×2 (09:36→20:06)
[2021-02-01] MEDS: HYDROGEN PEROXIDE 3% 118 ML BOTTLE TP SCH ×2 (09:38→21:07)
[2021-02-01] MEDS: HEPARIN SODIUM,PORCINE 5,000 UNITS/ML VIAL SQ SCH ×2 (09:54→20:10)
[2021-02-01] MEDS: MINERAL OIL/PETROLAT OPHT OINT 3.5 GM TUBE EACHEYE SCH (20:05)
[2021-02-01] MEDS: hydrALAZINE HCL 25 MG TABLET GT SCH (20:06)
[2021-02-01] MEDS: ATORVASTATIN 40 MG TABLET GT SCH (20:06)
[2021-02-01] MEDS: THIAMINE HCL 100 MG TABLET GT SCH (20:06)
[2021-02-01] MEDS: ASCORBIC ACID 500 MG TABLET GT SCH (20:06)
[2021-02-01 20:15] VITALS: BP 155/86
[2021-02-02] MEDS: IPRATROPIUM BROMIDE 0.5 MG/2.5 ML NEBU NEB SCH ×4 (00:53→19:09)
[2021-02-02] MEDS: LEVALBUTEROL HCL 1.25 MG/0.5 ML NEB NEB SCH ×4 (00:54→19:09)
[2021-02-02] MEDS: INSULIN REGULAR, HUMAN 300 UNIT/3 ML VIAL SQ PRN ×4 (01:00→23:00)
[2021-02-02] MEDS: GLUCERNA 1.2 1000ML LIQUID GT PRN (02:55)
[2021-02-02] MEDS: BLOOD SUGAR DIAGNOSTIC 1 EACH STRIP VI SCH ×4 (05:25→23:00)
[2021-02-02 07:59] VITALS: BP 142/80
[2021-02-02] MEDS: ACETAMINOPHEN 650 MG/20 ML UDC- SA PATIENTS-PAIN ONLY GT SCH ×2 (08:39→21:26)
[2021-02-02] MEDS: TERAZOSIN 1 MG CAPSULE GT SCH (08:41)
[2021-02-02] MEDS: levETIRAcetam 500 MG/5 ML LIQUID UDC GT SCH ×2 (08:41→21:38)
[2021-02-02] MEDS: ARGININE/GLUTAMINE/CALCIUM BMB 1 EACH POWD.PACK GT SCH ×2 (08:41→17:36)
[2021-02-02] MEDS: FAMOTIDINE 20 MG TABLET GT SCH ×2 (08:42→21:30)
[2021-02-02] MEDS: PHENOBARBITAL 97.2 MG TABLET GT SCH ×2 (08:42→21:37)
[2021-02-02] MEDS: METOPROLOL TARTRATE 25 MG TABLET GT SCH ×2 (08:42→21:30)
[2021-02-02] MEDS: BACLOFEN 10 MG TABLET GT SCH ×2 (08:42→21:28)
[2021-02-02] MEDS: AMANTADINE HCL 50 MG/5 ML GT SCH ×2 (08:43→21:38)
[2021-02-02] MEDS: COD LIVER OIL/ZINC OXIDE OINT 113 GM TUBE TOP SCH ×4 (08:44→21:31)
[2021-02-02] MEDS: HEPARIN SODIUM,PORCINE 5,000 UNITS/ML VIAL SQ SCH ×2 (08:49→21:34)
[2021-02-02] MEDS: VITAMINS A AND D OINT TP SCH ×2 (09:00→21:31)
[2021-02-02] MEDS: THERAHONEY GEL 1.5 OZ TUBE TOP SCH ×2 (09:00→21:31)
[2021-02-02] MEDS: HYDROGEN PEROXIDE 3% 118 ML BOTTLE TP SCH ×2 (09:00→20:06)
[2021-02-02] MEDS: SODIUM HYPOCHLORITE 0.125% (QUARTER STRENGTH) 473 ML BOTTLE TP SCH ×2 (09:55→21:31)
[2021-02-02 12:00] VITALS: BP 132/71
--- NOTE | 2021-02-02 16:55 | NUR ---
An email was send to primary family contact due to for potential exposure covid-19 and re-testing for covid-19 exam.
[2021-02-02 18:35] VITALS: BP 145/83
[2021-02-02 20:00] VITALS: BP 159/90
[2021-02-02] MEDS: MINERAL OIL/PETROLAT OPHT OINT 3.5 GM TUBE EACHEYE SCH (21:26)
[2021-02-02] MEDS: ATORVASTATIN 40 MG TABLET GT SCH (21:28)
[2021-02-02] MEDS: hydrALAZINE HCL 25 MG TABLET GT SCH (21:28)
[2021-02-02] MEDS: ASCORBIC ACID 500 MG TABLET GT SCH (21:30)
[2021-02-02] MEDS: THIAMINE HCL 100 MG TABLET GT SCH (21:33)
[2021-02-03] MEDS: IPRATROPIUM BROMIDE 0.5 MG/2.5 ML NEBU NEB SCH ×4 (00:59→19:24)
[2021-02-03] MEDS: LEVALBUTEROL HCL 1.25 MG/0.5 ML NEB NEB SCH ×4 (00:59→19:24)
[2021-02-03 05:02] VITALS: BP 153/90
[2021-02-03] MEDS: BLOOD SUGAR DIAGNOSTIC 1 EACH STRIP VI SCH ×3 (05:28→17:15)
[2021-02-03] MEDS: INSULIN REGULAR, HUMAN 300 UNIT/3 ML VIAL SQ PRN ×3 (05:29→17:16)
[2021-02-03] MEDS: ACETAMINOPHEN 650 MG/20 ML UDC- SA PATIENTS-PAIN ONLY GT SCH ×2 (08:30→20:59)
[2021-02-03 08:45] VITALS: BP 130/70
[2021-02-03] MEDS: THERAHONEY GEL 1.5 OZ TUBE TOP SCH (09:00)
[2021-02-03] MEDS: SODIUM HYPOCHLORITE 0.125% (QUARTER STRENGTH) 473 ML BOTTLE TP SCH ×2 (09:00→21:29)
[2021-02-03] MEDS: VITAMINS A AND D OINT TP SCH ×2 (09:00→21:29)
[2021-02-03] MEDS: TERAZOSIN 1 MG CAPSULE GT SCH (09:42)
[2021-02-03] MEDS: ARGININE/GLUTAMINE/CALCIUM BMB 1 EACH POWD.PACK GT SCH ×2 (09:42→17:15)
[2021-02-03] MEDS: BACLOFEN 10 MG TABLET GT SCH ×2 (09:43→21:00)
[2021-02-03] MEDS: levETIRAcetam 500 MG/5 ML LIQUID UDC GT SCH ×2 (09:43→21:00)
[2021-02-03] MEDS: METOPROLOL TARTRATE 25 MG TABLET GT SCH ×2 (09:45→21:00)
[2021-02-03] MEDS: PHENOBARBITAL 97.2 MG TABLET GT SCH ×2 (09:45→21:00)
[2021-02-03] MEDS: FAMOTIDINE 20 MG TABLET GT SCH ×2 (09:45→21:00)
[2021-02-03] MEDS: COD LIVER OIL/ZINC OXIDE OINT 113 GM TUBE TOP SCH ×3 (09:46→21:29)
[2021-02-03] MEDS: AMANTADINE HCL 50 MG/5 ML GT SCH ×2 (09:46→21:00)
[2021-02-03] MEDS: GLUCERNA 1.2 1000ML LIQUID GT PRN (09:46)
[2021-02-03] MEDS: HEPARIN SODIUM,PORCINE 5,000 UNITS/ML VIAL SQ SCH ×2 (09:46→21:29)
[2021-02-03] MEDS: HYDROGEN PEROXIDE 3% 118 ML BOTTLE TP SCH ×2 (10:10→20:48)
[2021-02-03 11:47] VITALS: BP 173/93
[2021-02-03] MEDS: hydrALAZINE HCL 25 MG TABLET GT PRN (11:47)
[2021-02-03 12:17] VITALS: BP 150/82
--- NOTE | 2021-02-03 12:35 | NUR ---
PT. WAS EXAMINED BY RIGOBERTO VAZQUEZ N.P FOR DR. DAV RIOS (SX) AND DID DEBRIDEMENT ON SACRAL AREA ,PT. WAS MEDICATED PREVIOUSLY FOR PAIN AND LOCALLY BY HER AND PROCEDURE WELL TOLERATED WITH MINIMAL LOCAL BLEEDING ,SEE NOTES ,PICTURE WAS TAKEN TOO(SEE RECORD).
[2021-02-03 20:00] VITALS: BP 147/84
[2021-02-03] MEDS: MINERAL OIL/PETROLAT OPHT OINT 3.5 GM TUBE EACHEYE SCH (20:59)
[2021-02-03] MEDS: NYSTATIN CREAM 30 GM TUBE TP SCH (21:00)
[2021-02-03] MEDS: ATORVASTATIN 40 MG TABLET GT SCH (21:00)
[2021-02-03] MEDS: THIAMINE HCL 100 MG TABLET GT SCH (21:00)
[2021-02-03] MEDS: TRIAMCINOLONE ACET 0.1% CREAM 15 GM TUBE TP SCH (21:00)
[2021-02-03] MEDS: hydrALAZINE HCL 25 MG TABLET GT SCH (21:00)
[2021-02-03] MEDS: ASCORBIC ACID 500 MG TABLET GT SCH (21:00)
[2021-02-04] MEDS: BLOOD SUGAR DIAGNOSTIC 1 EACH STRIP VI SCH ×4 (00:11→17:17)
[2021-02-04] MEDS: INSULIN REGULAR, HUMAN 300 UNIT/3 ML VIAL SQ PRN ×4 (00:16→17:17)
[2021-02-04 00:32] VITALS: BP 141/83
[2021-02-04] MEDS: LEVALBUTEROL HCL 1.25 MG/0.5 ML NEB NEB SCH ×4 (00:56→19:59)
[2021-02-04] MEDS: IPRATROPIUM BROMIDE 0.5 MG/2.5 ML NEBU NEB SCH ×4 (00:56→19:59)
[2021-02-04] MEDS: GLUCERNA 1.2 1000ML LIQUID GT PRN ×2 (03:53→21:46)
[2021-02-04 06:18] VITALS: BP 141/78
[2021-02-04 07:43] VITALS: BP 158/88
[2021-02-04] MEDS: ACETAMINOPHEN 650 MG/20 ML UDC- SA PATIENTS-PAIN ONLY GT SCH ×2 (08:54→20:34)
[2021-02-04] MEDS: TERAZOSIN 1 MG CAPSULE GT SCH (08:55)
[2021-02-04] MEDS: ARGININE/GLUTAMINE/CALCIUM BMB 1 EACH POWD.PACK GT SCH ×2 (08:55→17:17)
[2021-02-04] MEDS: levETIRAcetam 500 MG/5 ML LIQUID UDC GT SCH ×2 (08:55→20:34)
[2021-02-04] MEDS: BACLOFEN 10 MG TABLET GT SCH ×2 (08:56→20:34)
[2021-02-04] MEDS: FAMOTIDINE 20 MG TABLET GT SCH ×2 (08:57→20:35)
[2021-02-04] MEDS: PHENOBARBITAL 97.2 MG TABLET GT SCH ×2 (08:57→20:35)
[2021-02-04] MEDS: AMANTADINE HCL 50 MG/5 ML GT SCH ×2 (08:57→20:35)
[2021-02-04] MEDS: METOPROLOL TARTRATE 25 MG TABLET GT SCH ×2 (08:57→20:35)
[2021-02-04] MEDS: SODIUM HYPOCHLORITE 0.125% (QUARTER STRENGTH) 473 ML BOTTLE TP SCH ×2 (08:58→21:00)
[2021-02-04] MEDS: HEPARIN SODIUM,PORCINE 5,000 UNITS/ML VIAL SQ SCH ×2 (08:58→20:39)
[2021-02-04] MEDS: COD LIVER OIL/ZINC OXIDE OINT 113 GM TUBE TOP SCH ×2 (08:58→20:35)
[2021-02-04] MEDS: NYSTATIN CREAM 30 GM TUBE TP SCH ×2 (08:59→21:00)
[2021-02-04] MEDS: TRIAMCINOLONE ACET 0.1% CREAM 15 GM TUBE TP SCH ×2 (08:59→21:00)
[2021-02-04] MEDS: VITAMINS A AND D OINT TP SCH ×2 (08:59→21:00)
[2021-02-04] MEDS: HYDROGEN PEROXIDE 3% 118 ML BOTTLE TP SCH ×2 (09:26→21:43)
--- NOTE | 2021-02-04 10:17 | NUR ---
PT'S RESP. DEMOCRAT WAS CALLED AND MESSAGE LEFT RE:PT. WAS NEGATIVE FOR COVID 19 TEST FROM 02/02/21 .
[2021-02-04] MEDS ORDERED: TRIAMCINOLONE ACET 0.1% OINT 15 GM TUBE TP SCH (15:09)
[2021-02-04 18:29] VITALS: BP 148/81
--- NOTE | 2021-02-04 20:30 | NUR ---
Awake, temp was 100.2, removed blanket and applied cooling measures, Tylenol was given as ordered for pain d/t grimacing, fluids given as ordered, turned and repositioned, with ongoing treatment to sacral wound, kept clean and comfortable, will continue monitor.
[2021-02-04 20:33] VITALS: BP 142/85
[2021-02-04] MEDS: ATORVASTATIN 40 MG TABLET GT SCH (20:34)
[2021-02-04] MEDS: hydrALAZINE HCL 25 MG TABLET GT SCH (20:34)
[2021-02-04] MEDS: MINERAL OIL/PETROLAT OPHT OINT 3.5 GM TUBE EACHEYE SCH (20:34)
[2021-02-04] MEDS: ASCORBIC ACID 500 MG TABLET GT SCH (20:35)
[2021-02-04] MEDS: THIAMINE HCL 100 MG TABLET GT SCH (20:35)
--- NOTE | 2021-02-04 21:30 | NUR ---
Temperature is 99.2, HR: 95, no signs of any distress noted, will continue monitor.
--- NOTE | 2021-02-04 22:30 | NUR ---
Temperature is 98.8. patient is sleeping comfortably, no signs of any distress noted, kept clean and comfortable, will continue monitor.
[2021-02-05] VITALS (7 sets, daily range): BP systolic 136–174; BP diastolic 70–87
[2021-02-05] MEDS: BLOOD SUGAR DIAGNOSTIC 1 EACH STRIP VI SCH ×5 (00:12→23:16)
[2021-02-05] MEDS: INSULIN REGULAR, HUMAN 300 UNIT/3 ML VIAL SQ PRN ×5 (00:15→23:17)
[2021-02-05] MEDS: IPRATROPIUM BROMIDE 0.5 MG/2.5 ML NEBU NEB SCH ×4 (00:32→19:19)
[2021-02-05] MEDS: LEVALBUTEROL HCL 1.25 MG/0.5 ML NEB NEB SCH ×4 (00:32→19:19)
--- NOTE | 2021-02-05 08:50 | NUR ---
DR. RINCON WAS CALLED AND MESSAGE LEFT RE: RE ASSESS PAIN MEDICATION D/T S/P SACRAL WOUND DEBRIDEMENT.
[2021-02-05] MEDS: HYDROGEN PEROXIDE 3% 118 ML BOTTLE TP SCH ×2 (08:59→21:49)
[2021-02-05] MEDS: ACETAMINOPHEN 650 MG/20 ML UDC- SA PATIENTS-PAIN ONLY GT SCH ×2 (09:30→20:31)
[2021-02-05] MEDS: BACLOFEN 10 MG TABLET GT SCH ×2 (09:41→20:32)
[2021-02-05] MEDS: levETIRAcetam 500 MG/5 ML LIQUID UDC GT SCH ×2 (09:41→20:32)
[2021-02-05] MEDS: ARGININE/GLUTAMINE/CALCIUM BMB 1 EACH POWD.PACK GT SCH ×2 (09:41→17:52)
[2021-02-05] MEDS: AMANTADINE HCL 50 MG/5 ML GT SCH ×2 (09:42→20:32)
[2021-02-05] MEDS: TERAZOSIN 1 MG CAPSULE GT SCH (09:42)
[2021-02-05] MEDS: FAMOTIDINE 20 MG TABLET GT SCH ×2 (09:42→20:32)
[2021-02-05] MEDS: PHENOBARBITAL 97.2 MG TABLET GT SCH ×2 (09:42→20:32)
[2021-02-05] MEDS: METOPROLOL TARTRATE 25 MG TABLET GT SCH ×2 (09:42→20:32)
[2021-02-05] MEDS: HEPARIN SODIUM,PORCINE 5,000 UNITS/ML VIAL SQ SCH ×2 (09:43→20:34)
[2021-02-05] MEDS: COD LIVER OIL/ZINC OXIDE OINT 113 GM TUBE TOP SCH ×2 (09:46→20:32)
[2021-02-05] MEDS: VITAMINS A AND D OINT TP SCH ×2 (09:47→20:33)
[2021-02-05] MEDS: TRIAMCINOLONE ACET 0.1% CREAM 15 GM TUBE TP SCH ×2 (09:47→20:32)
[2021-02-05] MEDS: SODIUM HYPOCHLORITE 0.125% (QUARTER STRENGTH) 473 ML BOTTLE TP SCH ×2 (09:47→20:32)
[2021-02-05] MEDS: NYSTATIN CREAM 30 GM TUBE TP SCH ×2 (09:47→20:33)
--- NOTE | 2021-02-05 10:21 | NUR ---
NEW ORDER CARRIED OUT FROM DR. LOYA D/T SACRAL WOUND PAIN. Addendum: 02/05/21 at 1654 by RATNA FOUNTAIN RN DR. LOYA ASKED CH. NURSE TO CONTINUE CARRYING OUT NORCO ORDER FOR PAINAND [facility] AWARE ([facility] CONCERNED D/T MORPHINE ALLERGY RECORD) AND ALSO VERIFIED WITH PT'S FAMILY (PT'S SON SARBJIT AVELAR AND PT'S FATHER CHERIE) ALL OF THEM WERE IN AGREEMENT THAT HE HAD NO ALLERGY TO MORPHINE AND ALSO IN AGREEMENT TO CONTINUE WITH NORCO ORDER.
[2021-02-05] MEDS: ACETAMINOPHEN 650 MG/20 ML UDC- SA PATIENTS-PAIN ONLY GT PRN (16:37)
[2021-02-05] MEDS: hydrALAZINE HCL 25 MG TABLET GT PRN (16:59)
--- NOTE | 2021-02-05 18:00 | NUR ---
CH. NURSE CALLED SARBJIT AND SHE EXPLAINED THE FEARS OF MR. CHERIE WATSON AND HIS WISHES AND SHE STATED THAT SHE WILL TALK TO HIM AND WILL CALL NURSE BACK .NURSE EXPLAINED TO HER THAT PT.S PAIN IS MANIFESTED BY FACIAL GRIMACING AND INCREASING HEART RATE AND BLOOD PRESSURE AND RESPIRATION RATE ABOVE THE BASE LINE AND THAT THOSE SYMPTOMS USUALLY ARE IMPROVED WITH REPOSITIONING AND TYLENOL ADMINISTRATION BUT PT HAD A SACRAL WOUND DEBRIDEMENT A COUPLE DAYS AGO AND PT. WAS OBSERVED THAT HE IS STILL NOT COMFORTABLE.
--- NOTE | 2021-02-05 18:00 | NUR ---
PT'S FATHER CHERIE WATSON CALLED CH. NURSE AND HE TOLD HER THAT HE CHANGED HIS MIND ,HE SAID THAT HE DOES NOT WANT NORCO BECAUSE HE PREFERS HIM TO GET MOTRIN DUE TO HE STATED THAT HE JUST READ THE SIDE EFFECTS OF NORCO AND THAT HE IS AFRAID OF IT,CH. NURSE TOLD HIM THAT SHE IS GOING TO TALK TO DTR. PT'S RESP. CONSTITUTION PARTY SARBJIT ABOUT IT.
[2021-02-05] MEDS: GLUCERNA 1.2 1000ML LIQUID GT PRN (18:26)
--- NOTE | 2021-02-05 19:03 | NUR ---
AWAITING FOR PT'S RESP. ALLIANCE PARTY SARBJIT TO CALL BACK FOR OK FOR THE USE OF NORCO AND ENDORSED TO NOC SHIFT TO WAIT FOR HER CALLING BACK TO OK. NORCO ADMINISTRATION SHE SAID SHE IS OK WITH IT BUT SHE NEEDS TO TALK TO PT'S FATHER MR CHERIE WATSON.
--- NOTE | 2021-02-05 19:30 | NUR ---
Patient's Father (Arden Molina) called and was asking how was the patient. I informed him that when we made rounds the morning Nurse informed me that, " the patient looks more relax than earlier." Mr. Molina asked if We gave [place] and I told him that I am still waiting for Janis (RP) to call me back if it is ok to give the [place] to the patient. Mr. Molina got upset and stated, "Even if she says okay to give NORCO I still said no! I am his Father and If you give it to Wilfredo (patient) and something happens to him, I will get you!" I informed him that, " I do not appreciate you threatening me and you should understand that, all we are doing here is to help your son feel better, Please talk to Janis and whatever your decision please let us know."
--- NOTE | 2021-02-05 20:13 | NUR ---
Vital Signs: BP: 137/79 HR: 124 RR: 22 02 sat: 97% T: 96.8, patient noted with facial grimacing, turned and repositioned, no signs of any respiratory distress noted, patient has Tylenol order @ 2029, kept patient clean and comfortable, will continue monitor.
--- NOTE | 2021-02-05 20:30 | NUR ---
Janis (patient's daughter) called and still deciding about the [place]. I advised her to talk to her Grand Father (Arden Molina) about [place] and to let me know whatever decision they will come up together.
[2021-02-05] MEDS: MINERAL OIL/PETROLAT OPHT OINT 3.5 GM TUBE EACHEYE SCH (20:31)
[2021-02-05] MEDS: THIAMINE HCL 100 MG TABLET GT SCH (20:32)
[2021-02-05] MEDS: ASCORBIC ACID 500 MG TABLET GT SCH (20:32)
[2021-02-05] MEDS: ATORVASTATIN 40 MG TABLET GT SCH (20:32)
[2021-02-05] MEDS: hydrALAZINE HCL 25 MG TABLET GT SCH (20:32)
[2021-02-06] VITALS (7 sets, daily range): BP systolic 137–162; BP diastolic 77–91
[2021-02-06] MEDS: LEVALBUTEROL HCL 1.25 MG/0.5 ML NEB NEB SCH ×4 (01:24→20:00)
[2021-02-06] MEDS: IPRATROPIUM BROMIDE 0.5 MG/2.5 ML NEBU NEB SCH ×4 (01:24→20:00)
[2021-02-06] MEDS: BLOOD SUGAR DIAGNOSTIC 1 EACH STRIP VI SCH ×3 (05:29→17:58)
[2021-02-06] MEDS: INSULIN REGULAR, HUMAN 300 UNIT/3 ML VIAL SQ PRN ×3 (05:36→17:59)
--- NOTE | 2021-02-06 06:51 | NUR ---
Patient is sleeping comfortably, no signs of any distress, HR is 92, Temperature is 98.5, kept clean and comfortable.
[2021-02-06] MEDS: TERAZOSIN 1 MG CAPSULE GT SCH (08:55)
[2021-02-06] MEDS: ACETAMINOPHEN 650 MG/20 ML UDC- SA PATIENTS-PAIN ONLY GT SCH ×2 (08:55→20:30)
[2021-02-06] MEDS: METOPROLOL TARTRATE 25 MG TABLET GT SCH ×2 (08:56→21:37)
[2021-02-06] MEDS: BACLOFEN 10 MG TABLET GT SCH ×2 (08:56→21:36)
[2021-02-06] MEDS: ARGININE/GLUTAMINE/CALCIUM BMB 1 EACH POWD.PACK GT SCH ×2 (08:56→17:50)
[2021-02-06] MEDS: levETIRAcetam 500 MG/5 ML LIQUID UDC GT SCH ×2 (08:56→21:36)
[2021-02-06] MEDS: FAMOTIDINE 20 MG TABLET GT SCH ×2 (08:56→21:37)
[2021-02-06] MEDS: AMANTADINE HCL 50 MG/5 ML GT SCH ×2 (08:56→21:37)
[2021-02-06] MEDS: PHENOBARBITAL 97.2 MG TABLET GT SCH ×2 (08:56→21:37)
[2021-02-06] MEDS: TRIAMCINOLONE ACET 0.1% CREAM 15 GM TUBE TP SCH ×2 (08:57→21:00)
[2021-02-06] MEDS: COD LIVER OIL/ZINC OXIDE OINT 113 GM TUBE TOP SCH ×2 (08:57→21:37)
[2021-02-06] MEDS: NYSTATIN CREAM 30 GM TUBE TP SCH ×2 (08:57→21:00)
[2021-02-06] MEDS: VITAMINS A AND D OINT TP SCH ×2 (08:57→21:00)
[2021-02-06] MEDS: SODIUM HYPOCHLORITE 0.125% (QUARTER STRENGTH) 473 ML BOTTLE TP SCH ×2 (08:57→21:00)
[2021-02-06] MEDS: HYDROGEN PEROXIDE 3% 118 ML BOTTLE TP SCH ×2 (09:00→20:00)
[2021-02-06] MEDS: HEPARIN SODIUM,PORCINE 5,000 UNITS/ML VIAL SQ SCH ×2 (09:00→21:38)
[2021-02-06] MEDS: ACETAMINOPHEN 650 MG/20 ML UDC- SA PATIENTS-PAIN ONLY GT PRN (12:03)
[2021-02-06] MEDS: GLUCERNA 1.2 1000ML LIQUID GT PRN (12:50)
--- NOTE | 2021-02-06 13:03 | NUR ---
PT. WAS SEEN AND EXAMINED BY DR. LOYA AND AWARE OF PT'S TACHYCARDIA AND TACHYPNEA EPISODES 9SEE RECORDS) AND AWARE THAT FAMILY WANTS TO SPEAK TO MD IN ORDER TO OK AD. OF NORCO FOR SEVERE PAIN AND DR. MCMANUS STATED THAT WILL SPEAK TO RESP. LIBERTARIAN ONLY NOT ALL THE FAMILY AND AWARE THAT PT'S FATHER WANTS SPEAK TO HIM.
--- NOTE | 2021-02-06 16:00 | NUR ---
PT'S DTROzzie SCHAFFER WAS CALLED TO VERIFY IF DR. LOYA SPOKE TO HER ABOUT NORCO MEDICATION AND SHE STATED NOT YET AND ALSO SHE WAS AWARE OF COVID 19 TEST ORDER CARRIED OUT PER [facility] REQUIREMENT.
[2021-02-06] MEDS: hydrALAZINE HCL 25 MG TABLET GT PRN (17:51)
--- NOTE | 2021-02-06 18:31 | NUR ---
WOUND CARE DONE VERY GENTLY AND SLOWLY AND PT. WAS MEDICATED FOR PAIN WITH TYLENOL ORDERED AND PT'S FATHER AWARE.
[2021-02-06] MEDS: MINERAL OIL/PETROLAT OPHT OINT 3.5 GM TUBE EACHEYE SCH (21:35)
[2021-02-06] MEDS: hydrALAZINE HCL 25 MG TABLET GT SCH (21:36)
[2021-02-06] MEDS: ATORVASTATIN 40 MG TABLET GT SCH (21:36)
[2021-02-06] MEDS: THIAMINE HCL 100 MG TABLET GT SCH (21:37)
[2021-02-06] MEDS: ASCORBIC ACID 500 MG TABLET GT SCH (21:37)
[2021-02-07] VITALS: BP 122/72
[2021-02-07] MEDS: INSULIN REGULAR, HUMAN 300 UNIT/3 ML VIAL SQ PRN ×4 (00:30→18:01)
[2021-02-07] MEDS: BLOOD SUGAR DIAGNOSTIC 1 EACH STRIP VI SCH ×4 (00:41→17:59)
[2021-02-07] MEDS: IPRATROPIUM BROMIDE 0.5 MG/2.5 ML NEBU NEB SCH ×4 (02:20→19:14)
[2021-02-07] MEDS: LEVALBUTEROL HCL 1.25 MG/0.5 ML NEB NEB SCH ×4 (02:20→19:14)
[2021-02-07 06:51] VITALS: BP 139/82
[2021-02-07 07:25] VITALS: BP 156/90
[2021-02-07] MEDS: ACETAMINOPHEN 650 MG/20 ML UDC- SA PATIENTS-PAIN ONLY GT SCH ×2 (08:30→21:11)
[2021-02-07] MEDS: ARGININE/GLUTAMINE/CALCIUM BMB 1 EACH POWD.PACK GT SCH ×2 (09:40→17:58)
[2021-02-07] MEDS: BACLOFEN 10 MG TABLET GT SCH ×2 (09:40→21:11)
[2021-02-07] MEDS: levETIRAcetam 500 MG/5 ML LIQUID UDC GT SCH ×2 (09:40→21:11)
[2021-02-07] MEDS: TERAZOSIN 1 MG CAPSULE GT SCH (09:40)
[2021-02-07] MEDS: COD LIVER OIL/ZINC OXIDE OINT 113 GM TUBE TOP SCH ×2 (09:41→21:13)
[2021-02-07] MEDS: SODIUM HYPOCHLORITE 0.125% (QUARTER STRENGTH) 473 ML BOTTLE TP SCH ×2 (09:41→21:00)
[2021-02-07] MEDS: FAMOTIDINE 20 MG TABLET GT SCH ×2 (09:41→21:12)
[2021-02-07] MEDS: VITAMINS A AND D OINT TP SCH ×2 (09:41→21:34)
[2021-02-07] MEDS: PHENOBARBITAL 97.2 MG TABLET GT SCH ×2 (09:41→21:12)
[2021-02-07] MEDS: AMANTADINE HCL 50 MG/5 ML GT SCH ×2 (09:41→21:12)
[2021-02-07] MEDS: NYSTATIN CREAM 30 GM TUBE TP SCH ×2 (09:41→21:00)
[2021-02-07] MEDS: METOPROLOL TARTRATE 25 MG TABLET GT SCH ×2 (09:41→21:12)
[2021-02-07] MEDS: TRIAMCINOLONE ACET 0.1% CREAM 15 GM TUBE TP SCH ×2 (09:41→21:00)
[2021-02-07] MEDS: HEPARIN SODIUM,PORCINE 5,000 UNITS/ML VIAL SQ SCH ×2 (09:42→21:13)
[2021-02-07] MEDS: HYDROGEN PEROXIDE 3% 118 ML BOTTLE TP SCH ×2 (09:59→19:14)
[2021-02-07 11:26] VITALS: BP 119/77
[2021-02-07 18:10] VITALS: BP 139/89
[2021-02-07 20:14] VITALS: BP 150/84
[2021-02-07] MEDS: ATORVASTATIN 40 MG TABLET GT SCH (21:11)
[2021-02-07] MEDS: MINERAL OIL/PETROLAT OPHT OINT 3.5 GM TUBE EACHEYE SCH (21:11)
[2021-02-07] MEDS: hydrALAZINE HCL 25 MG TABLET GT SCH (21:11)
[2021-02-07] MEDS: THIAMINE HCL 100 MG TABLET GT SCH (21:12)
[2021-02-07] MEDS: ASCORBIC ACID 500 MG TABLET GT SCH (21:12)
[2021-02-08] VITALS: BP 142/79
[2021-02-08] MEDS: INSULIN REGULAR, HUMAN 300 UNIT/3 ML VIAL SQ PRN ×5 (00:30→23:13)
[2021-02-08] MEDS: BLOOD SUGAR DIAGNOSTIC 1 EACH STRIP VI SCH ×5 (00:34→23:12)
[2021-02-08] MEDS: LEVALBUTEROL HCL 1.25 MG/0.5 ML NEB NEB SCH ×4 (00:49→19:18)
[2021-02-08] MEDS: IPRATROPIUM BROMIDE 0.5 MG/2.5 ML NEBU NEB SCH ×4 (00:49→19:18)
[2021-02-08] MEDS: GLUCERNA 1.2 1000ML LIQUID GT PRN ×2 (05:27→23:12)
[2021-02-08 06:00] VITALS: BP 138/82
[2021-02-08 07:30] VITALS: BP 142/80
[2021-02-08] MEDS: HYDROGEN PEROXIDE 3% 118 ML BOTTLE TP SCH ×2 (09:00→20:36)
[2021-02-08] MEDS: HEPARIN SODIUM,PORCINE 5,000 UNITS/ML VIAL SQ SCH ×2 (09:11→20:25)
[2021-02-08] MEDS: BACLOFEN 10 MG TABLET GT SCH ×2 (09:12→20:24)
[2021-02-08] MEDS: ACETAMINOPHEN 650 MG/20 ML UDC- SA PATIENTS-PAIN ONLY GT SCH ×2 (09:12→20:23)
[2021-02-08] MEDS: levETIRAcetam 500 MG/5 ML LIQUID UDC GT SCH ×2 (09:12→20:24)
[2021-02-08] MEDS: ARGININE/GLUTAMINE/CALCIUM BMB 1 EACH POWD.PACK GT SCH ×2 (09:12→17:00)
[2021-02-08] MEDS: TERAZOSIN 1 MG CAPSULE GT SCH (09:12)
[2021-02-08] MEDS: SODIUM HYPOCHLORITE 0.125% (QUARTER STRENGTH) 473 ML BOTTLE TP SCH ×2 (09:13→20:26)
[2021-02-08] MEDS: METOPROLOL TARTRATE 25 MG TABLET GT SCH ×2 (09:13→20:24)
[2021-02-08] MEDS: COD LIVER OIL/ZINC OXIDE OINT 113 GM TUBE TOP SCH ×2 (09:13→20:25)
[2021-02-08] MEDS: FAMOTIDINE 20 MG TABLET GT SCH ×2 (09:13→20:24)
[2021-02-08] MEDS: TRIAMCINOLONE ACET 0.1% CREAM 15 GM TUBE TP SCH ×2 (09:13→20:26)
[2021-02-08] MEDS: NYSTATIN CREAM 30 GM TUBE TP SCH ×2 (09:13→20:26)
[2021-02-08] MEDS: AMANTADINE HCL 50 MG/5 ML GT SCH ×2 (09:13→20:25)
[2021-02-08] MEDS: PHENOBARBITAL 97.2 MG TABLET GT SCH ×2 (09:13→20:24)
[2021-02-08] MEDS: VITAMINS A AND D OINT TP SCH ×2 (09:13→20:26)
--- NOTE | 2021-02-08 14:34 | NUR ---
PT'S RESP. GREEN PARTY SARBJIT CALLED AT THIS TIME AND SHE OK TO NURSE TO ADM. CARRI SHE STATED THAT SHE TRUSTED THE WHO ORDERED , AND THAT AFTER ALL SHE IS THE RESP. GREEN PARTY NOT Ozzie CHERIE WATSON AND THAT JUST PLS GIVE IT NEEDED BECAUSE SHE DOES NOT WANT HER FATHER TO BE IN DISTRESS WITH PAIN.
[2021-02-08 17:43] VITALS: BP 139/89
[2021-02-08 17:51] VITALS: BP 148/91
[2021-02-08] MEDS ORDERED: TRIAMCINOLONE ACET 0.1% CREAM 15 GM TUBE TP PRN (18:45)
[2021-02-08] MEDS ORDERED: NYSTATIN CREAM 30 GM TUBE TP PRN (18:45)
[2021-02-08 19:55] VITALS: BP 159/91
[2021-02-08] MEDS: MINERAL OIL/PETROLAT OPHT OINT 3.5 GM TUBE EACHEYE SCH (20:23)
[2021-02-08] MEDS: ATORVASTATIN 40 MG TABLET GT SCH (20:24)
[2021-02-08] MEDS: hydrALAZINE HCL 25 MG TABLET GT SCH (20:24)
[2021-02-08] MEDS: ASCORBIC ACID 500 MG TABLET GT SCH (20:25)
[2021-02-08] MEDS: THIAMINE HCL 100 MG TABLET GT SCH (20:25)
[2021-02-09] VITALS: BP 133/78
[2021-02-09] MEDS: IPRATROPIUM BROMIDE 0.5 MG/2.5 ML NEBU NEB SCH ×4 (01:00→19:16)
[2021-02-09] MEDS: LEVALBUTEROL HCL 1.25 MG/0.5 ML NEB NEB SCH ×4 (01:00→19:16)
[2021-02-09] MEDS: BLOOD SUGAR DIAGNOSTIC 1 EACH STRIP VI SCH ×3 (05:27→17:49)
[2021-02-09] MEDS: INSULIN REGULAR, HUMAN 300 UNIT/3 ML VIAL SQ PRN ×3 (05:28→17:50)
[2021-02-09 05:37] VITALS: BP 138/84
[2021-02-09 07:36] VITALS: BP 158/87
[2021-02-09] MEDS: HEPARIN SODIUM,PORCINE 5,000 UNITS/ML VIAL SQ SCH ×2 (08:50→20:50)
[2021-02-09] MEDS: TRIAMCINOLONE ACET 0.1% CREAM 15 GM TUBE TP SCH ×2 (08:51→20:52)
[2021-02-09] MEDS: SODIUM HYPOCHLORITE 0.125% (QUARTER STRENGTH) 473 ML BOTTLE TP SCH ×2 (08:51→20:52)
[2021-02-09] MEDS: COD LIVER OIL/ZINC OXIDE OINT 113 GM TUBE TOP SCH ×2 (08:51→20:52)
[2021-02-09] MEDS: VITAMINS A AND D OINT TP SCH ×2 (08:51→20:52)
[2021-02-09] MEDS: NYSTATIN CREAM 30 GM TUBE TP SCH ×2 (08:51→20:52)
[2021-02-09] MEDS: PHENOBARBITAL 97.2 MG TABLET GT SCH ×2 (08:52→20:47)
[2021-02-09] MEDS: TERAZOSIN 1 MG CAPSULE GT SCH (08:53)
[2021-02-09] MEDS: ARGININE/GLUTAMINE/CALCIUM BMB 1 EACH POWD.PACK GT SCH ×2 (08:55→17:49)
[2021-02-09] MEDS: BACLOFEN 10 MG TABLET GT SCH ×2 (08:55→20:47)
[2021-02-09] MEDS: levETIRAcetam 500 MG/5 ML LIQUID UDC GT SCH ×2 (08:55→20:46)
[2021-02-09] MEDS: FAMOTIDINE 20 MG TABLET GT SCH ×2 (08:56→20:47)
[2021-02-09] MEDS: METOPROLOL TARTRATE 25 MG TABLET GT SCH ×2 (08:56→20:47)
[2021-02-09] MEDS: AMANTADINE HCL 50 MG/5 ML GT SCH ×2 (08:56→20:48)
[2021-02-09] MEDS: ACETAMINOPHEN 650 MG/20 ML UDC- SA PATIENTS-PAIN ONLY GT SCH ×2 (08:57→20:44)
[2021-02-09] MEDS: HYDROGEN PEROXIDE 3% 118 ML BOTTLE TP SCH ×2 (09:00→19:17)
[2021-02-09 12:00] VITALS: BP 141/87
--- NOTE | 2021-02-09 16:34 | NUR ---
SW notified patient's daughter Janis, via email, that the next IDT meeting for the patient is scheduled for 02/15/2021 at 11am. DELANEY invited her to participate in the meeting through speakerphone, and asked her to let this SW know if she would be available to participate.
[2021-02-09 18:00] VITALS: BP 143/81
[2021-02-09 20:05] VITALS: BP 144/76
[2021-02-09] MEDS: MINERAL OIL/PETROLAT OPHT OINT 3.5 GM TUBE EACHEYE SCH (20:44)
[2021-02-09] MEDS: hydrALAZINE HCL 25 MG TABLET GT SCH (20:45)
[2021-02-09] MEDS: ATORVASTATIN 40 MG TABLET GT SCH (20:47)
[2021-02-09] MEDS: ASCORBIC ACID 500 MG TABLET GT SCH (20:48)
[2021-02-09] MEDS: THIAMINE HCL 100 MG TABLET GT SCH (20:48)
[2021-02-10] VITALS (7 sets, daily range): BP systolic 136–152; BP diastolic 67–86
[2021-02-10] MEDS: IPRATROPIUM BROMIDE 0.5 MG/2.5 ML NEBU NEB SCH ×4 (00:44→18:55)
[2021-02-10] MEDS: LEVALBUTEROL HCL 1.25 MG/0.5 ML NEB NEB SCH ×4 (00:44→18:55)
[2021-02-10] MEDS: BLOOD SUGAR DIAGNOSTIC 1 EACH STRIP VI SCH ×5 (00:57→23:06)
[2021-02-10] MEDS: INSULIN REGULAR, HUMAN 300 UNIT/3 ML VIAL SQ PRN ×5 (00:58→23:09)
[2021-02-10] MEDS: LORAZEPAM 1 MG TABLET GT PRN (06:42)
[2021-02-10] MEDS: ACETAMINOPHEN 650 MG/20 ML UDC- SA PATIENTS-PAIN ONLY GT SCH ×2 (08:57→20:04)
[2021-02-10] MEDS: ARGININE/GLUTAMINE/CALCIUM BMB 1 EACH POWD.PACK GT SCH ×2 (09:02→17:37)
[2021-02-10] MEDS: levETIRAcetam 500 MG/5 ML LIQUID UDC GT SCH ×2 (09:02→20:04)
[2021-02-10] MEDS: METOPROLOL TARTRATE 25 MG TABLET GT SCH ×2 (09:02→20:04)
[2021-02-10] MEDS: BACLOFEN 10 MG TABLET GT SCH ×2 (09:02→20:04)
[2021-02-10] MEDS: TERAZOSIN 1 MG CAPSULE GT SCH (09:02)
[2021-02-10] MEDS: AMANTADINE HCL 50 MG/5 ML GT SCH ×2 (09:03→20:05)
[2021-02-10] MEDS: PHENOBARBITAL 97.2 MG TABLET GT SCH ×2 (09:03→20:05)
[2021-02-10] MEDS: FAMOTIDINE 20 MG TABLET GT SCH ×2 (09:03→20:05)
[2021-02-10] MEDS: HEPARIN SODIUM,PORCINE 5,000 UNITS/ML VIAL SQ SCH ×2 (09:03→20:05)
[2021-02-10] MEDS: NYSTATIN CREAM 30 GM TUBE TP SCH ×2 (09:09→20:06)
[2021-02-10] MEDS: TRIAMCINOLONE ACET 0.1% CREAM 15 GM TUBE TP SCH ×2 (09:09→20:06)
[2021-02-10] MEDS: COD LIVER OIL/ZINC OXIDE OINT 113 GM TUBE TOP SCH ×2 (09:09→20:05)
[2021-02-10] MEDS: VITAMINS A AND D OINT TP SCH ×2 (09:09→20:06)
[2021-02-10] MEDS: SODIUM HYPOCHLORITE 0.125% (QUARTER STRENGTH) 473 ML BOTTLE TP SCH ×2 (09:09→20:05)
[2021-02-10] MEDS: HYDROGEN PEROXIDE 3% 118 ML BOTTLE TP SCH ×2 (09:27→21:22)
--- NOTE | 2021-02-10 11:49 | NUR ---
DELANEY received an email from patient's daughter Janis stating that she and her grandfather Mr. Her, would like to participate in the IDT meeting on 02/15. DELANEY to call Janis and Arden during the meeting.
[2021-02-10] MEDS: hydrALAZINE HCL 25 MG TABLET GT SCH (20:04)
[2021-02-10] MEDS: MINERAL OIL/PETROLAT OPHT OINT 3.5 GM TUBE EACHEYE SCH (20:04)
[2021-02-10] MEDS: ATORVASTATIN 40 MG TABLET GT SCH (20:04)
[2021-02-10] MEDS: THIAMINE HCL 100 MG TABLET GT SCH (20:05)
[2021-02-10] MEDS: ASCORBIC ACID 500 MG TABLET GT SCH (20:05)
[2021-02-11] MEDS: IPRATROPIUM BROMIDE 0.5 MG/2.5 ML NEBU NEB SCH ×4 (00:51→20:14)
[2021-02-11] MEDS: LEVALBUTEROL HCL 1.25 MG/0.5 ML NEB NEB SCH ×4 (00:51→20:14)
[2021-02-11] MEDS: HYDROCODONE/APAP 5-325MG TABLET GT PRN (04:34)
[2021-02-11] MEDS: BLOOD SUGAR DIAGNOSTIC 1 EACH STRIP VI SCH ×3 (06:01→17:38)
[2021-02-11] MEDS: GLUCERNA 1.2 1000ML LIQUID GT PRN ×2 (06:02→18:23)
[2021-02-11] MEDS: INSULIN REGULAR, HUMAN 300 UNIT/3 ML VIAL SQ PRN ×3 (06:06→17:40)
[2021-02-11 06:18] VITALS: BP 146/90
[2021-02-11 07:48] VITALS: BP 159/51
[2021-02-11] MEDS: levETIRAcetam 500 MG/5 ML LIQUID UDC GT SCH ×2 (08:44→20:53)
[2021-02-11] MEDS: BACLOFEN 10 MG TABLET GT SCH ×2 (08:44→20:53)
[2021-02-11] MEDS: TERAZOSIN 1 MG CAPSULE GT SCH (08:44)
[2021-02-11] MEDS: ARGININE/GLUTAMINE/CALCIUM BMB 1 EACH POWD.PACK GT SCH ×2 (08:44→17:38)
[2021-02-11] MEDS: ACETAMINOPHEN 650 MG/20 ML UDC- SA PATIENTS-PAIN ONLY GT SCH ×2 (08:44→20:52)
[2021-02-11] MEDS: METOPROLOL TARTRATE 25 MG TABLET GT SCH ×2 (08:45→20:53)
[2021-02-11] MEDS: AMANTADINE HCL 50 MG/5 ML GT SCH ×2 (08:45→20:54)
[2021-02-11] MEDS: FAMOTIDINE 20 MG TABLET GT SCH ×2 (08:45→20:53)
[2021-02-11] MEDS: PHENOBARBITAL 97.2 MG TABLET GT SCH ×2 (08:45→20:54)
[2021-02-11] MEDS: HEPARIN SODIUM,PORCINE 5,000 UNITS/ML VIAL SQ SCH ×2 (08:46→21:00)
[2021-02-11] MEDS: COD LIVER OIL/ZINC OXIDE OINT 113 GM TUBE TOP SCH ×2 (08:46→20:54)
[2021-02-11] MEDS: TRIAMCINOLONE ACET 0.1% CREAM 15 GM TUBE TP SCH ×2 (08:47→21:00)
[2021-02-11] MEDS: SODIUM HYPOCHLORITE 0.125% (QUARTER STRENGTH) 473 ML BOTTLE TP SCH ×2 (08:47→21:00)
[2021-02-11] MEDS: NYSTATIN CREAM 30 GM TUBE TP SCH ×2 (08:47→21:00)
[2021-02-11] MEDS: VITAMINS A AND D OINT TP SCH ×2 (08:47→20:54)
[2021-02-11] MEDS: HYDROGEN PEROXIDE 3% 118 ML BOTTLE TP SCH ×2 (09:00→21:27)
[2021-02-11 12:00] VITALS: BP 151/88
[2021-02-11 18:00] VITALS: BP 149/85
[2021-02-11 20:29] VITALS: BP 144/82
[2021-02-11] MEDS: MINERAL OIL/PETROLAT OPHT OINT 3.5 GM TUBE EACHEYE SCH (20:52)
[2021-02-11] MEDS: ATORVASTATIN 40 MG TABLET GT SCH (20:53)
[2021-02-11] MEDS: hydrALAZINE HCL 25 MG TABLET GT SCH (20:53)
[2021-02-11] MEDS: ASCORBIC ACID 500 MG TABLET GT SCH (20:54)
[2021-02-11] MEDS: THIAMINE HCL 100 MG TABLET GT SCH (20:54)
[2021-02-12 00:30] VITALS: BP 144/84
[2021-02-12] MEDS: BLOOD SUGAR DIAGNOSTIC 1 EACH STRIP VI SCH ×5 (00:49→23:24)
[2021-02-12] MEDS: INSULIN REGULAR, HUMAN 300 UNIT/3 ML VIAL SQ PRN ×5 (01:14→23:25)
[2021-02-12] MEDS: IPRATROPIUM BROMIDE 0.5 MG/2.5 ML NEBU NEB SCH ×4 (01:23→19:05)
[2021-02-12] MEDS: LEVALBUTEROL HCL 1.25 MG/0.5 ML NEB NEB SCH ×4 (01:23→19:05)
[2021-02-12 06:00] VITALS: BP 139/82
[2021-02-12 07:41] VITALS: BP 112/76
[2021-02-12] MEDS: HYDROGEN PEROXIDE 3% 118 ML BOTTLE TP SCH ×2 (07:50→21:36)
[2021-02-12] MEDS: ACETAMINOPHEN 650 MG/20 ML UDC- SA PATIENTS-PAIN ONLY GT SCH ×2 (08:24→20:31)
[2021-02-12] MEDS: TERAZOSIN 1 MG CAPSULE GT SCH (08:26)
[2021-02-12] MEDS: ARGININE/GLUTAMINE/CALCIUM BMB 1 EACH POWD.PACK GT SCH ×3 (08:27→18:10)
[2021-02-12] MEDS: BACLOFEN 10 MG TABLET GT SCH ×2 (08:27→20:33)
[2021-02-12] MEDS: levETIRAcetam 500 MG/5 ML LIQUID UDC GT SCH ×2 (08:27→20:33)
[2021-02-12] MEDS: METOPROLOL TARTRATE 25 MG TABLET GT SCH ×2 (08:28→20:34)
[2021-02-12] MEDS: PHENOBARBITAL 97.2 MG TABLET GT SCH ×2 (08:28→20:34)
[2021-02-12] MEDS: FAMOTIDINE 20 MG TABLET GT SCH ×2 (08:28→20:34)
[2021-02-12] MEDS: AMANTADINE HCL 50 MG/5 ML GT SCH ×2 (08:29→20:35)
[2021-02-12] MEDS: COD LIVER OIL/ZINC OXIDE OINT 113 GM TUBE TOP SCH ×2 (08:32→20:38)
[2021-02-12] MEDS: HEPARIN SODIUM,PORCINE 5,000 UNITS/ML VIAL SQ SCH ×2 (08:32→20:38)
[2021-02-12] MEDS: SODIUM HYPOCHLORITE 0.125% (QUARTER STRENGTH) 473 ML BOTTLE TP SCH ×2 (08:32→20:38)
[2021-02-12] MEDS: NYSTATIN CREAM 30 GM TUBE TP SCH ×2 (08:33→20:39)
[2021-02-12] MEDS: VITAMINS A AND D OINT TP SCH ×2 (08:33→20:39)
[2021-02-12] MEDS: TRIAMCINOLONE ACET 0.1% CREAM 15 GM TUBE TP SCH ×2 (08:33→20:39)
[2021-02-12 12:00] VITALS: BP 128/78
[2021-02-12] MEDS: GLUCERNA 1.2 1000ML LIQUID GT PRN (12:03)
[2021-02-12] MEDS ORDERED: SODIUM HYPOCHLORITE 0.125% (QUARTER STRENGTH) 473 ML BOTTLE TP PRN (14:30)
[2021-02-12 18:22] VITALS: BP 134/70
[2021-02-12] MEDS: HYDROCODONE/APAP 5-325MG TABLET GT PRN (18:35)
[2021-02-12 20:03] VITALS: BP 120/67
[2021-02-12] MEDS: MINERAL OIL/PETROLAT OPHT OINT 3.5 GM TUBE EACHEYE SCH (20:32)
[2021-02-12] MEDS: hydrALAZINE HCL 25 MG TABLET GT SCH (20:32)
[2021-02-12] MEDS: ATORVASTATIN 40 MG TABLET GT SCH (20:33)
[2021-02-12] MEDS: THIAMINE HCL 100 MG TABLET GT SCH (20:35)
[2021-02-12] MEDS: ASCORBIC ACID 500 MG TABLET GT SCH (20:35)
[2021-02-12] MEDS: LORAZEPAM 1 MG TABLET GT PRN (21:30)
[2021-02-13] VITALS: BP 140/79
[2021-02-13] MEDS: LEVALBUTEROL HCL 1.25 MG/0.5 ML NEB NEB SCH ×4 (01:05→20:20)
[2021-02-13] MEDS: IPRATROPIUM BROMIDE 0.5 MG/2.5 ML NEBU NEB SCH ×4 (01:05→20:20)
[2021-02-13] MEDS: GLUCERNA 1.2 1000ML LIQUID GT PRN (04:03)
[2021-02-13] MEDS: BLOOD SUGAR DIAGNOSTIC 1 EACH STRIP VI SCH ×3 (05:23→17:10)
[2021-02-13] MEDS: ARGININE/GLUTAMINE/CALCIUM BMB 1 EACH POWD.PACK GT SCH ×2 (05:23→17:01)
[2021-02-13] MEDS: INSULIN REGULAR, HUMAN 300 UNIT/3 ML VIAL SQ PRN ×3 (05:24→17:11)
[2021-02-13 06:00] VITALS: BP 134/68
[2021-02-13 07:33] VITALS: BP 139/75
[2021-02-13] MEDS: ACETAMINOPHEN 650 MG/20 ML UDC- SA PATIENTS-PAIN ONLY GT SCH ×2 (08:16→21:24)
[2021-02-13] MEDS: METOPROLOL TARTRATE 25 MG TABLET GT SCH ×2 (08:19→21:26)
[2021-02-13] MEDS: FAMOTIDINE 20 MG TABLET GT SCH ×2 (08:19→21:28)
[2021-02-13] MEDS: BACLOFEN 10 MG TABLET GT SCH ×2 (08:19→21:25)
[2021-02-13] MEDS: PHENOBARBITAL 97.2 MG TABLET GT SCH ×2 (08:19→21:28)
[2021-02-13] MEDS: AMANTADINE HCL 50 MG/5 ML GT SCH ×2 (08:19→21:28)
[2021-02-13] MEDS: levETIRAcetam 500 MG/5 ML LIQUID UDC GT SCH ×2 (08:19→21:25)
[2021-02-13] MEDS: TERAZOSIN 1 MG CAPSULE GT SCH (08:19)
[2021-02-13] MEDS: NYSTATIN CREAM 30 GM TUBE TP SCH ×2 (08:22→21:29)
[2021-02-13] MEDS: COD LIVER OIL/ZINC OXIDE OINT 113 GM TUBE TOP SCH ×2 (08:22→21:28)
[2021-02-13] MEDS: VITAMINS A AND D OINT TP SCH ×2 (08:22→21:29)
[2021-02-13] MEDS: TRIAMCINOLONE ACET 0.1% CREAM 15 GM TUBE TP SCH ×2 (08:22→21:28)
[2021-02-13] MEDS: HEPARIN SODIUM,PORCINE 5,000 UNITS/ML VIAL SQ SCH ×2 (08:22→21:49)
[2021-02-13] MEDS: SODIUM HYPOCHLORITE 0.125% (QUARTER STRENGTH) 473 ML BOTTLE TP SCH ×2 (08:22→21:28)
[2021-02-13] MEDS: HYDROGEN PEROXIDE 3% 118 ML BOTTLE TP SCH ×2 (09:00→21:40)
[2021-02-13 11:34] VITALS: BP 127/79
[2021-02-13] MEDS: HYDROCODONE/APAP 5-325MG TABLET GT PRN ×2 (17:15→23:56)
[2021-02-13 17:25] VITALS: BP 156/92
--- NOTE | 2021-02-13 17:47 | NUR ---
Covid 19 test done.
[2021-02-13 20:39] VITALS: BP 130/75
[2021-02-13] MEDS: MINERAL OIL/PETROLAT OPHT OINT 3.5 GM TUBE EACHEYE SCH (21:24)
[2021-02-13] MEDS: ATORVASTATIN 40 MG TABLET GT SCH (21:25)
[2021-02-13] MEDS: hydrALAZINE HCL 25 MG TABLET GT SCH (21:27)
[2021-02-13] MEDS: THIAMINE HCL 100 MG TABLET GT SCH (21:28)
[2021-02-13] MEDS: ASCORBIC ACID 500 MG TABLET GT SCH (21:28)
[2021-02-14] MEDS: BLOOD SUGAR DIAGNOSTIC 1 EACH STRIP VI SCH ×5 (00:01→23:25)
[2021-02-14] MEDS: INSULIN REGULAR, HUMAN 300 UNIT/3 ML VIAL SQ PRN ×3 (00:15→18:06)
[2021-02-14] MEDS: GLUCERNA 1.2 1000ML LIQUID GT PRN ×2 (01:44→17:18)
[2021-02-14] MEDS: LEVALBUTEROL HCL 1.25 MG/0.5 ML NEB NEB SCH ×4 (01:50→19:01)
[2021-02-14] MEDS: IPRATROPIUM BROMIDE 0.5 MG/2.5 ML NEBU NEB SCH ×4 (01:50→19:01)
[2021-02-14] MEDS: ARGININE/GLUTAMINE/CALCIUM BMB 1 EACH POWD.PACK GT SCH ×2 (05:11→18:04)
[2021-02-14 07:29] VITALS: BP 140/76
[2021-02-14] MEDS: levETIRAcetam 500 MG/5 ML LIQUID UDC GT SCH ×2 (08:21→20:07)
[2021-02-14] MEDS: TERAZOSIN 1 MG CAPSULE GT SCH (08:21)
[2021-02-14] MEDS: BACLOFEN 10 MG TABLET GT SCH ×2 (08:21→20:07)
[2021-02-14] MEDS: ACETAMINOPHEN 650 MG/20 ML UDC- SA PATIENTS-PAIN ONLY GT SCH ×2 (08:21→20:07)
[2021-02-14] MEDS: HEPARIN SODIUM,PORCINE 5,000 UNITS/ML VIAL SQ SCH ×2 (08:21→21:24)
[2021-02-14] MEDS: FAMOTIDINE 20 MG TABLET GT SCH ×2 (08:22→20:07)
[2021-02-14] MEDS: HYDROGEN PEROXIDE 3% 118 ML BOTTLE TP SCH ×2 (08:22→21:45)
[2021-02-14] MEDS: SODIUM HYPOCHLORITE 0.125% (QUARTER STRENGTH) 473 ML BOTTLE TP SCH ×2 (08:22→21:26)
[2021-02-14] MEDS: METOPROLOL TARTRATE 25 MG TABLET GT SCH ×2 (08:22→20:13)
[2021-02-14] MEDS: PHENOBARBITAL 97.2 MG TABLET GT SCH ×2 (08:22→20:10)
[2021-02-14] MEDS: TRIAMCINOLONE ACET 0.1% CREAM 15 GM TUBE TP SCH ×2 (08:22→21:26)
[2021-02-14] MEDS: COD LIVER OIL/ZINC OXIDE OINT 113 GM TUBE TOP SCH ×2 (08:22→20:12)
[2021-02-14] MEDS: AMANTADINE HCL 50 MG/5 ML GT SCH ×2 (08:22→20:10)
[2021-02-14] MEDS: NYSTATIN CREAM 30 GM TUBE TP SCH ×2 (08:23→21:26)
[2021-02-14] MEDS: VITAMINS A AND D OINT TP SCH ×2 (08:23→21:26)
[2021-02-14] MEDS: HYDROCODONE/APAP 5-325MG TABLET GT PRN ×2 (11:41→23:26)
[2021-02-14] MEDS: MINERAL OIL/PETROLAT OPHT OINT 3.5 GM TUBE EACHEYE SCH (20:07)
[2021-02-14] MEDS: ATORVASTATIN 40 MG TABLET GT SCH (20:07)
[2021-02-14] MEDS: ASCORBIC ACID 500 MG TABLET GT SCH (20:10)
[2021-02-14] MEDS: THIAMINE HCL 100 MG TABLET GT SCH (20:10)
[2021-02-14] MEDS: hydrALAZINE HCL 25 MG TABLET GT SCH (20:12)
[2021-02-14 20:18] VITALS: BP 144/76
[2021-02-15] MEDS: INSULIN REGULAR, HUMAN 300 UNIT/3 ML VIAL SQ PRN ×5 (00:45→23:50)
[2021-02-15] MEDS: IPRATROPIUM BROMIDE 0.5 MG/2.5 ML NEBU NEB SCH ×4 (01:00→19:04)
[2021-02-15] MEDS: LEVALBUTEROL HCL 1.25 MG/0.5 ML NEB NEB SCH ×4 (01:00→19:05)
[2021-02-15] MEDS: BLOOD SUGAR DIAGNOSTIC 1 EACH STRIP VI SCH ×4 (05:29→23:24)
[2021-02-15] MEDS: ARGININE/GLUTAMINE/CALCIUM BMB 1 EACH POWD.PACK GT SCH ×2 (05:29→17:50)
[2021-02-15] MEDS: HYDROCODONE/APAP 5-325MG TABLET GT PRN ×2 (05:33→18:32)
[2021-02-15 07:20] VITALS: BP 127/66
[2021-02-15] MEDS: HYDROGEN PEROXIDE 3% 118 ML BOTTLE TP SCH ×2 (09:18→20:52)
[2021-02-15] MEDS: ACETAMINOPHEN 650 MG/20 ML UDC- SA PATIENTS-PAIN ONLY GT SCH ×2 (09:21→20:05)
[2021-02-15] MEDS: TERAZOSIN 1 MG CAPSULE GT SCH (09:22)
[2021-02-15] MEDS: levETIRAcetam 500 MG/5 ML LIQUID UDC GT SCH ×2 (09:23→20:10)
[2021-02-15] MEDS: BACLOFEN 10 MG TABLET GT SCH ×2 (09:23→20:10)
[2021-02-15] MEDS: METOPROLOL TARTRATE 25 MG TABLET GT SCH ×2 (09:24→20:10)
[2021-02-15] MEDS: FAMOTIDINE 20 MG TABLET GT SCH ×2 (09:24→20:10)
[2021-02-15] MEDS: AMANTADINE HCL 50 MG/5 ML GT SCH ×2 (09:26→20:11)
[2021-02-15] MEDS: PHENOBARBITAL 97.2 MG TABLET GT SCH ×2 (09:30→20:10)
[2021-02-15] MEDS: HEPARIN SODIUM,PORCINE 5,000 UNITS/ML VIAL SQ SCH ×2 (09:31→20:09)
[2021-02-15] MEDS: SODIUM HYPOCHLORITE 0.125% (QUARTER STRENGTH) 473 ML BOTTLE TP SCH ×2 (09:32→21:25)
[2021-02-15] MEDS: COD LIVER OIL/ZINC OXIDE OINT 113 GM TUBE TOP SCH ×2 (09:32→20:11)
[2021-02-15] MEDS: NYSTATIN CREAM 30 GM TUBE TP SCH ×2 (09:33→21:26)
[2021-02-15] MEDS: VITAMINS A AND D OINT TP SCH ×2 (09:33→20:11)
[2021-02-15] MEDS: TRIAMCINOLONE ACET 0.1% CREAM 15 GM TUBE TP SCH ×2 (09:33→21:26)
--- NOTE | 2021-02-15 12:00 | NUR ---
Pt daughter Janis notified,Covid 19 test result negative.
[2021-02-15] MEDS: GLUCERNA 1.2 1000ML LIQUID GT PRN (12:26)
--- NOTE | 2021-02-15 15:12 | NUR ---
INTERDISCIPLINARY PLAN OF CARE CONFERENCE was held today. Patient's daughter Janis participated in the meeting today. Patient's father was also called for the meeting, but he was not available to participate. Dr. Peralta and the Interdisciplinary Team reviewed the current plan of care in detail. RN reported on patient's medical condition, vitals, medications, and ongoing skin treatment. See RN IDT conference notes. No major changes in condition were reported by RT and RD. Pharmacy discussed changes in medications. See all disciplines IDT notes and physician's progress notes for additional details. Janis's questions were addressed by the IDT team, and Janis expressed not having any concerns at this time.
--- NOTE | 2021-02-15 15:30 | NUR ---
Voided, incontinent with diaper saturated. Bladder scan done with 118 residual urine
--- NOTE | 2021-02-15 16:29 | NUR ---
SW emailed patient's daughter Janis the updated guidelines and criteria for visitations, based on [facility] and [facility] directives.
[2021-02-15 18:29] VITALS: BP 139/83
[2021-02-15 20:00] VITALS: BP 138/81
[2021-02-15] MEDS: MINERAL OIL/PETROLAT OPHT OINT 3.5 GM TUBE EACHEYE SCH (20:08)
[2021-02-15] MEDS: ATORVASTATIN 40 MG TABLET GT SCH (20:10)
[2021-02-15] MEDS: hydrALAZINE HCL 25 MG TABLET GT SCH (20:10)
[2021-02-15] MEDS: THIAMINE HCL 100 MG TABLET GT SCH (20:11)
[2021-02-15] MEDS: ASCORBIC ACID 500 MG TABLET GT SCH (20:11)
[2021-02-16] MEDS: LEVALBUTEROL HCL 1.25 MG/0.5 ML NEB NEB SCH ×4 (00:47→19:33)
[2021-02-16] MEDS: IPRATROPIUM BROMIDE 0.5 MG/2.5 ML NEBU NEB SCH ×4 (00:47→19:33)
[2021-02-16] MEDS: HYDROCODONE/APAP 5-325MG TABLET GT PRN (03:10)
[2021-02-16 05:00] VITALS: BP 165/84
[2021-02-16] MEDS: BLOOD SUGAR DIAGNOSTIC 1 EACH STRIP VI SCH ×3 (05:09→17:40)
[2021-02-16] MEDS: ARGININE/GLUTAMINE/CALCIUM BMB 1 EACH POWD.PACK GT SCH ×2 (05:09→17:40)
[2021-02-16] MEDS: hydrALAZINE HCL 25 MG TABLET GT PRN (05:10)
[2021-02-16 06:00] VITALS: BP 150/82
[2021-02-16] MEDS: GLUCERNA 1.2 1000ML LIQUID GT PRN (06:11)
[2021-02-16 07:35] VITALS: BP 123/71
[2021-02-16] MEDS: HYDROGEN PEROXIDE 3% 118 ML BOTTLE TP SCH ×2 (09:00→21:19)
[2021-02-16] MEDS: VITAMINS A AND D OINT TP SCH ×2 (09:00→21:47)
[2021-02-16] MEDS: ACETAMINOPHEN 650 MG/20 ML UDC- SA PATIENTS-PAIN ONLY GT SCH ×2 (09:18→20:30)
[2021-02-16] MEDS: TERAZOSIN 1 MG CAPSULE GT SCH (09:19)
[2021-02-16] MEDS: BACLOFEN 10 MG TABLET GT SCH ×2 (09:20→21:43)
[2021-02-16] MEDS: levETIRAcetam 500 MG/5 ML LIQUID UDC GT SCH ×2 (09:20→21:43)
[2021-02-16] MEDS: PHENOBARBITAL 97.2 MG TABLET GT SCH ×2 (09:21→21:49)
[2021-02-16] MEDS: FAMOTIDINE 20 MG TABLET GT SCH ×2 (09:21→21:44)
[2021-02-16] MEDS: METOPROLOL TARTRATE 25 MG TABLET GT SCH ×2 (09:21→21:44)
[2021-02-16] MEDS: AMANTADINE HCL 50 MG/5 ML GT SCH ×2 (09:22→21:45)
[2021-02-16] MEDS: COD LIVER OIL/ZINC OXIDE OINT 113 GM TUBE TOP SCH ×2 (09:22→21:47)
[2021-02-16] MEDS: HEPARIN SODIUM,PORCINE 5,000 UNITS/ML VIAL SQ SCH ×2 (09:23→21:47)
[2021-02-16] MEDS: NYSTATIN CREAM 30 GM TUBE TP SCH ×2 (09:55→21:47)
[2021-02-16] MEDS: TRIAMCINOLONE ACET 0.1% CREAM 15 GM TUBE TP SCH ×2 (09:55→21:47)
[2021-02-16] MEDS: SODIUM HYPOCHLORITE 0.125% (QUARTER STRENGTH) 473 ML BOTTLE TP SCH ×2 (09:55→21:47)
[2021-02-16 12:00] VITALS: BP 146/84
[2021-02-16] MEDS: INSULIN REGULAR, HUMAN 300 UNIT/3 ML VIAL SQ PRN ×2 (12:00→17:41)
[2021-02-16 17:06] LABS: HEMATOCRIT 33.5 % (36.7-47.1); MEAN CORPUSCULAR HEMOGLOBIN 29.5 uug (23.8-33.4); PLATELET COUNT (AUTO) 335 K/uL (152-348)
[2021-02-16 17:12] LABS: *BILIRUBIN,URIN NEGATIVE (NEGATIVE); *BLOOD, URINE NEGATIVE (NEGATIVE); *CLARITY,URINE CLOUDY (CLEAR); *COLOR,URINE YELLOW (YELLOW); *KETONES,URINE NEGATIVE (NEGATIVE); *UROBILINOGEN,URINE 0.2 E.U./dl (NORMAL); LEUKOCYTE ESTERASE ,URINE NEGATIVE (NEGATIVE); NITRITE, URINE NEGATIVE (NEGATIVE); UGLUCOSE NEGATIVE (NEGATIVE)
[2021-02-16 17:17] LABS: ALANINE AMINOTRANSFERASE 47 U/L (16-63); ALKALINE PHOSPHATASE 121 U/L (50-136); ASPARTATE AMINOTRANSFERASE 22 U/L (15-37); BILIRUBIN,TOTAL 0.2 mg/dL (0.2-1.0); CARBON DIOXIDE 32 mmol/L (21-32); CHLORIDE 94 mmol/L (98-107); CREATININE 0.5 mg/dL (0.6-1.3); GLUCOSE 175 mg/dL (74-106); POTASSIUM 4.5 mmol/L (3.5-5.1); UREA NITROGEN, BLOOD 18 mg/dL (7-18)
[2021-02-16 17:42] VITALS: BP 147/76
[2021-02-16] MEDS: ACETAMINOPHEN 650 MG/20 ML UDC- SA PATIENTS-FEVER ONLY GT PRN (17:55)
--- NOTE | 2021-02-16 18:23 | NUR ---
Dr Lowery notified,pt spike temp 100.4,on cooling measures,and have a urinary retention of 700 cc,f/c inserted,procedure tolerated well.
--- NOTE | 2021-02-16 19:30 | NUR ---
New orders noted ,start on iv fluids Ns at 100 cc/hr,F/c draining well,Pt's daughter Janis notified abot the patient condition,Continue tx on sacral wound no improvement noted.Temp 99.4.
[2021-02-16 20:00] VITALS: BP 147/84
[2021-02-16] MEDS: MINERAL OIL/PETROLAT OPHT OINT 3.5 GM TUBE EACHEYE SCH (21:42)
[2021-02-16] MEDS: ATORVASTATIN 40 MG TABLET GT SCH (21:43)
[2021-02-16] MEDS: hydrALAZINE HCL 25 MG TABLET GT SCH (21:43)
[2021-02-16] MEDS: ASCORBIC ACID 500 MG TABLET GT SCH (21:45)
[2021-02-16] MEDS: THIAMINE HCL 100 MG TABLET GT SCH (21:45)
[2021-02-16 22:07] LABS: BACTERIA,URINE NONE SEEN /HPF (NONE SEEN); RBC,URINE 0-3 /HPF (0-3); SQUAMOUS EPITHELIAL CELL,UR NONE SEEN /HPF (NONE SEEN); WBC,URINE NONE SEEN /HPF (0-3)
[2021-02-16 22:08] LABS: URINE AMORPHOUS PHOSPHATES MANY /HPF
[2021-02-17] MEDS: BLOOD SUGAR DIAGNOSTIC 1 EACH STRIP VI SCH ×4 (00:16→17:20)
[2021-02-17] MEDS: INSULIN REGULAR, HUMAN 300 UNIT/3 ML VIAL SQ PRN ×4 (00:19→17:21)
[2021-02-17] MEDS: GLUCERNA 1.2 1000ML LIQUID GT PRN ×3 (01:12→17:20)
[2021-02-17] MEDS: IPRATROPIUM BROMIDE 0.5 MG/2.5 ML NEBU NEB SCH ×4 (01:40→19:50)
[2021-02-17] MEDS: LEVALBUTEROL HCL 1.25 MG/0.5 ML NEB NEB SCH ×4 (01:40→19:50)
[2021-02-17] MEDS: IV NS 1000 ML 1,000 ML IV PRN ×2 (05:29→16:27)
--- NOTE | 2021-02-17 05:31 | NUR ---
iv n.s. 100ml/hr infusing well, thomas cath patent and draining clear yellow urine, repositioned, made pt comfortable.
[2021-02-17] MEDS: ARGININE/GLUTAMINE/CALCIUM BMB 1 EACH POWD.PACK GT SCH ×2 (05:33→17:17)
[2021-02-17 07:59] VITALS: BP 186/94
[2021-02-17] MEDS: ACETAMINOPHEN 650 MG/20 ML UDC- SA PATIENTS-PAIN ONLY GT SCH ×2 (08:20→20:10)
[2021-02-17] MEDS: TERAZOSIN 1 MG CAPSULE GT SCH (08:21)
[2021-02-17] MEDS: BACLOFEN 10 MG TABLET GT SCH ×2 (08:23→20:11)
[2021-02-17] MEDS: levETIRAcetam 500 MG/5 ML LIQUID UDC GT SCH ×2 (08:23→20:11)
[2021-02-17] MEDS: METOPROLOL TARTRATE 25 MG TABLET GT SCH ×2 (08:24→20:11)
[2021-02-17] MEDS: FAMOTIDINE 20 MG TABLET GT SCH ×2 (08:24→20:11)
[2021-02-17] MEDS: PHENOBARBITAL 97.2 MG TABLET GT SCH ×2 (08:24→20:11)
[2021-02-17] MEDS: AMANTADINE HCL 50 MG/5 ML GT SCH ×2 (08:28→20:11)
[2021-02-17] MEDS: HEPARIN SODIUM,PORCINE 5,000 UNITS/ML VIAL SQ SCH ×2 (08:29→20:13)
[2021-02-17] MEDS: COD LIVER OIL/ZINC OXIDE OINT 113 GM TUBE TOP SCH ×2 (08:29→20:11)
[2021-02-17] MEDS: SODIUM HYPOCHLORITE 0.125% (QUARTER STRENGTH) 473 ML BOTTLE TP SCH ×2 (08:31→20:11)
[2021-02-17] MEDS: VITAMINS A AND D OINT TP SCH ×2 (08:31→20:12)
[2021-02-17] MEDS: TRIAMCINOLONE ACET 0.1% CREAM 15 GM TUBE TP SCH ×2 (08:31→20:11)
[2021-02-17] MEDS: NYSTATIN CREAM 30 GM TUBE TP SCH ×2 (08:31→20:12)
[2021-02-17] MEDS: HYDROGEN PEROXIDE 3% 118 ML BOTTLE TP SCH ×2 (09:00→21:36)
[2021-02-17 10:00] VITALS: BP 136/70
--- NOTE | 2021-02-17 10:00 | NUR ---
SEEN BY RIGOBERTO VAZQUEZ N.P. AND WITH NNO.
[2021-02-17 12:00] VITALS: BP 133/72
[2021-02-17 18:30] VITALS: BP 142/74
[2021-02-17 20:00] VITALS: BP 143/83
[2021-02-17] MEDS: MINERAL OIL/PETROLAT OPHT OINT 3.5 GM TUBE EACHEYE SCH (20:10)
[2021-02-17] MEDS: ASCORBIC ACID 500 MG TABLET GT SCH (20:11)
[2021-02-17] MEDS: hydrALAZINE HCL 25 MG TABLET GT SCH (20:11)
[2021-02-17] MEDS: ATORVASTATIN 40 MG TABLET GT SCH (20:11)
[2021-02-17] MEDS: THIAMINE HCL 100 MG TABLET GT SCH (20:11)
[2021-02-17 20:30] VITALS: BP 145/84
--- NOTE | 2021-02-17 20:30 | NUR ---
Patient's temperature is 101.0, HR: 117 RR: 28 02sat: 100% B/P: 145/84, noted with facial grimacing, cooling measures done, also on Nurse will give routine Tylenol order as ordered, Trach is intact, suctioned with yellow secretions, Gt feeding is tolerating well, fluids given as ordered, Patiño catheter is draining well with clear yellow urine, good diane care rendered, with ongoing treatment to sacral wound, kept clean and comfortable, will closely monitor. Addendum: 02/17/21 at 2139 by ISRRAEL ESTEVES RN Paged Dr. Cotton with new orders for ID consult with JEAN MARIE Mckeon and to do CXR, noted and carried out. Called Janis (PAUL) and was notified of patient's change in conditions and new orders from the Doctor and she agreed with the plan of care.
--- NOTE | 2021-02-17 21:54 | NUR ---
Arden Molina (Patient's Dad) called and was notified of patient fever and new orders from the Doctor.
[2021-02-17] MEDS: HYDROCODONE/APAP 5-325MG TABLET GT PRN (22:04)
--- NOTE | 2021-02-17 22:16 | NUR ---
Patient is still on IV hydration NS0.9% @ 100ml/hr, infusing well, Temperature at his time is 98.9, no signs of any distress at this time, kept clean and comfortable, will closely monitor.
[2021-02-18] MEDS: BLOOD SUGAR DIAGNOSTIC 1 EACH STRIP VI SCH ×5 (00:43→23:32)
[2021-02-18] MEDS: INSULIN REGULAR, HUMAN 300 UNIT/3 ML VIAL SQ PRN ×5 (00:45→23:35)
[2021-02-18] MEDS: LORAZEPAM 1 MG TABLET GT PRN (01:02)
[2021-02-18] MEDS: LEVALBUTEROL HCL 1.25 MG/0.5 ML NEB NEB SCH ×4 (01:22→19:25)
[2021-02-18] MEDS: IPRATROPIUM BROMIDE 0.5 MG/2.5 ML NEBU NEB SCH ×4 (01:22→19:25)
[2021-02-18 01:23] VITALS: BP 137/79
[2021-02-18] MEDS: IV NS 1000 ML 1,000 ML IV PRN (02:30)
[2021-02-18] MEDS: ARGININE/GLUTAMINE/CALCIUM BMB 1 EACH POWD.PACK GT SCH ×2 (05:02→18:04)
[2021-02-18] MEDS: hydrALAZINE HCL 25 MG TABLET GT PRN ×2 (05:34→18:15)
[2021-02-18 06:44] VITALS: BP 142/82
[2021-02-18 07:57] VITALS: BP 160/82
[2021-02-18] MEDS: GLUCERNA 1.2 1000ML LIQUID GT PRN (08:30)
[2021-02-18] MEDS: ACETAMINOPHEN 650 MG/20 ML UDC- SA PATIENTS-PAIN ONLY GT SCH ×2 (08:35→21:14)
[2021-02-18] MEDS: TERAZOSIN 1 MG CAPSULE GT SCH (08:36)
[2021-02-18] MEDS: BACLOFEN 10 MG TABLET GT SCH ×2 (08:36→21:14)
[2021-02-18] MEDS: levETIRAcetam 500 MG/5 ML LIQUID UDC GT SCH ×2 (08:36→21:14)
[2021-02-18] MEDS: FAMOTIDINE 20 MG TABLET GT SCH ×2 (08:37→21:14)
[2021-02-18] MEDS: AMANTADINE HCL 50 MG/5 ML GT SCH ×2 (08:37→21:14)
[2021-02-18] MEDS: PHENOBARBITAL 97.2 MG TABLET GT SCH ×2 (08:37→21:14)
[2021-02-18] MEDS: METOPROLOL TARTRATE 25 MG TABLET GT SCH ×2 (08:37→21:14)
[2021-02-18] MEDS: TRIAMCINOLONE ACET 0.1% CREAM 15 GM TUBE TP SCH ×2 (08:39→21:17)
[2021-02-18] MEDS: HEPARIN SODIUM,PORCINE 5,000 UNITS/ML VIAL SQ SCH ×2 (08:39→21:00)
[2021-02-18] MEDS: SODIUM HYPOCHLORITE 0.125% (QUARTER STRENGTH) 473 ML BOTTLE TP SCH ×2 (08:39→21:17)
[2021-02-18] MEDS: NYSTATIN CREAM 30 GM TUBE TP SCH ×2 (08:39→21:17)
[2021-02-18] MEDS: VITAMINS A AND D OINT TP SCH ×2 (08:39→21:17)
[2021-02-18] MEDS: COD LIVER OIL/ZINC OXIDE OINT 113 GM TUBE TOP SCH ×2 (08:39→21:17)
[2021-02-18] MEDS: HYDROGEN PEROXIDE 3% 118 ML BOTTLE TP SCH ×2 (09:32→19:26)
--- NOTE | 2021-02-18 09:54 | NUR ---
DR. GORE WAS CALLED AND AWARE OF LATEST LAB RESULTS AND CXR AND CULTURES AND WITH NEW ORDERS:CONTINUE WITH IV HYDRATION ORDERED, ESR, AND SACROCOCCYX X RAY AND ALSO HE WAS AWARE OF PERSISTENT TACHYCARDIA AND WITH NO CHANGES ON MEDICATION AT THIS TIME.
--- NOTE | 2021-02-18 10:40 | NUR ---
NEW ORDERS WAS CARRIED OUT FROM THIEN Mota
--- NOTE | 2021-02-18 11:26 | NUR ---
PT. WAS SEEN AND EXAMINED BY DR. WEBSTER AND AWARE OF LATEST ORDERS AND WITH NNO CARRIED OUT.
[2021-02-18 12:00] VITALS: BP 131/73
[2021-02-18] MEDS: HYDROCODONE/APAP 5-325MG TABLET GT PRN ×2 (12:00→18:10)
[2021-02-18 13:10] LABS: HEMATOCRIT 31.8 % (36.7-47.1); MEAN CORPUSCULAR HEMOGLOBIN 29.3 uug (23.8-33.4); MEAN CORPUSCULAR VOLUME 87.4 fL (73.0-96.2); PLATELET COUNT (AUTO) 294 K/uL (152-348)
--- NOTE | 2021-02-18 13:11 | NUR ---
SACRAL WOUND SPECIMEN FOR C&S COLLECTED AND SENT TO LAB.
[2021-02-18] MEDS ORDERED: [UNRECOGNIZED DRUG - REMARK] XX PRN (13:15)
[2021-02-18] MEDS: CEFEPIME HCL 2 G in IV DEXTROSE 5% 100 ML IV SCH (13:42)
[2021-02-18 13:43] LABS: ASPARTATE AMINOTRANSFERASE 20 U/L (15-37)
[2021-02-18 13:54] LABS: ALANINE AMINOTRANSFERASE 36 U/L (16-63); ALKALINE PHOSPHATASE 111 U/L (50-136); BILIRUBIN,TOTAL 0.1 mg/dL (0.2-1.0); CARBON DIOXIDE 26 mmol/L (21-32); CHLORIDE 97 mmol/L (98-107); CREATININE 0.5 mg/dL (0.6-1.3); GLUCOSE 216 mg/dL (74-106); POTASSIUM 4.2 mmol/L (3.5-5.1); TOTAL PROTEIN, SERUM 6.9 g/dL (6.4-8.2); UREA NITROGEN, BLOOD 15 mg/dL (7-18)
[2021-02-18] MEDS: VANCOMYCIN IV 1,000 MG in IV DEXTROSE 5% 250 ML IV SCH (14:50)
--- NOTE | 2021-02-18 14:50 | NUR ---
NO A/R TP CEFEPIME IV.LEFT HAND IV PERIPHERAL LINE REMAINS INTACT AND PATENT.
--- NOTE | 2021-02-18 15:14 | NUR ---
DR. COLLINS AWARE OF ABNORMAL LAB RESULTS ,XR AND LATEST ORDERS FROM ID AND IN AGREEMENT AND NNO.
--- NOTE | 2021-02-18 15:15 | NUR ---
PT'S DTRSARBJIT WAS NOTIFIED RE:LATEST CONDITION AND ORDERS AND IN AGREEMT .
--- NOTE | 2021-02-18 15:52 | NUR ---
NO A/R TO VANCOMYCIN IV.
[2021-02-18 18:42] VITALS: BP 163/96
--- NOTE | 2021-02-18 18:57 | NUR ---
DR. COLLINS WAS CALLED AND WITH NEW ORDERS CARRIED OUT TO DECREASE IVF WITH NSS DOWN TO 60ML/HR D/T PT.S HANDS WITH INCREASED EDEMA.
[2021-02-18] MEDS ORDERED: IV NS 1000 ML 1,000 ML IV PRN (19:30)
[2021-02-18 20:00] VITALS: BP 146/77
[2021-02-18] MEDS: hydrALAZINE HCL 25 MG TABLET GT SCH (21:14)
[2021-02-18] MEDS: THIAMINE HCL 100 MG TABLET GT SCH (21:14)
[2021-02-18] MEDS: MINERAL OIL/PETROLAT OPHT OINT 3.5 GM TUBE EACHEYE SCH (21:14)
[2021-02-18] MEDS: ASCORBIC ACID 500 MG TABLET GT SCH (21:14)
[2021-02-18] MEDS: ATORVASTATIN 40 MG TABLET GT SCH (21:14)
[2021-02-19 01:19] VITALS: BP 111/55
[2021-02-19] MEDS: LEVALBUTEROL HCL 1.25 MG/0.5 ML NEB NEB SCH ×4 (01:22→19:11)
[2021-02-19] MEDS: IPRATROPIUM BROMIDE 0.5 MG/2.5 ML NEBU NEB SCH ×4 (01:22→19:11)
[2021-02-19] MEDS: CEFEPIME HCL 2 G in IV DEXTROSE 5% 100 ML IV SCH ×2 (01:30→13:59)
[2021-02-19] MEDS: GLUCERNA 1.2 1000ML LIQUID GT PRN ×2 (01:58→18:19)
[2021-02-19] MEDS: VANCOMYCIN IV 1,000 MG in IV DEXTROSE 5% 250 ML IV SCH ×2 (02:00→14:33)
[2021-02-19] MEDS: HYDROCODONE/APAP 5-325MG TABLET GT PRN ×3 (05:40→17:30)
[2021-02-19] MEDS: BLOOD SUGAR DIAGNOSTIC 1 EACH STRIP VI SCH ×3 (05:42→18:11)
[2021-02-19] MEDS: ARGININE/GLUTAMINE/CALCIUM BMB 1 EACH POWD.PACK GT SCH ×2 (05:42→18:03)
[2021-02-19] MEDS: INSULIN REGULAR, HUMAN 300 UNIT/3 ML VIAL SQ PRN ×3 (05:44→18:21)
[2021-02-19 07:54] VITALS: BP 107/68
[2021-02-19] MEDS: HYDROGEN PEROXIDE 3% 118 ML BOTTLE TP SCH ×2 (09:24→21:18)
[2021-02-19] MEDS: ACETAMINOPHEN 650 MG/20 ML UDC- SA PATIENTS-PAIN ONLY GT SCH ×2 (09:30→21:19)
[2021-02-19] MEDS: TERAZOSIN 1 MG CAPSULE GT SCH (09:41)
[2021-02-19] MEDS: BACLOFEN 10 MG TABLET GT SCH ×2 (09:41→21:23)
[2021-02-19] MEDS: levETIRAcetam 500 MG/5 ML LIQUID UDC GT SCH ×2 (09:41→21:23)
[2021-02-19] MEDS: METOPROLOL TARTRATE 25 MG TABLET GT SCH ×2 (09:46→21:24)
[2021-02-19] MEDS: PHENOBARBITAL 97.2 MG TABLET GT SCH ×2 (09:47→21:24)
[2021-02-19] MEDS: FAMOTIDINE 20 MG TABLET GT SCH ×2 (09:47→21:24)
[2021-02-19] MEDS: HEPARIN SODIUM,PORCINE 5,000 UNITS/ML VIAL SQ SCH ×2 (09:58→21:00)
[2021-02-19] MEDS: COD LIVER OIL/ZINC OXIDE OINT 113 GM TUBE TOP SCH ×2 (09:58→21:24)
[2021-02-19] MEDS: TRIAMCINOLONE ACET 0.1% CREAM 15 GM TUBE TP SCH ×2 (09:58→21:25)
[2021-02-19] MEDS: SODIUM HYPOCHLORITE 0.125% (QUARTER STRENGTH) 473 ML BOTTLE TP SCH ×2 (09:58→21:25)
[2021-02-19] MEDS: AMANTADINE HCL 50 MG/5 ML GT SCH ×2 (09:58→21:24)
[2021-02-19] MEDS: NYSTATIN CREAM 30 GM TUBE TP SCH ×2 (09:58→21:25)
[2021-02-19] MEDS: VITAMINS A AND D OINT TP SCH ×2 (09:59→21:25)
[2021-02-19] MEDS: LORAZEPAM 1 MG TABLET GT PRN (10:03)
[2021-02-19 13:15] VITALS: BP 104/60
--- NOTE | 2021-02-19 13:21 | NUR ---
[facility] 1 am. if vancomycin trough 20 or higher do not administer vancomycin
[2021-02-19 20:12] VITALS: BP 108/58
[2021-02-19] MEDS: MINERAL OIL/PETROLAT OPHT OINT 3.5 GM TUBE EACHEYE SCH (21:19)
[2021-02-19] MEDS: hydrALAZINE HCL 25 MG TABLET GT SCH (21:23)
[2021-02-19] MEDS: ATORVASTATIN 40 MG TABLET GT SCH (21:24)
[2021-02-19] MEDS: THIAMINE HCL 100 MG TABLET GT SCH (21:24)
[2021-02-19] MEDS: ASCORBIC ACID 500 MG TABLET GT SCH (21:24)
[2021-02-20] MEDS: LEVALBUTEROL HCL 1.25 MG/0.5 ML NEB NEB SCH ×4 (00:32→19:18)
[2021-02-20] MEDS: IPRATROPIUM BROMIDE 0.5 MG/2.5 ML NEBU NEB SCH ×4 (00:32→19:18)
[2021-02-20] MEDS: BLOOD SUGAR DIAGNOSTIC 1 EACH STRIP VI SCH ×4 (00:39→17:48)
[2021-02-20 00:46] VITALS: BP 123/73
[2021-02-20] MEDS: INSULIN REGULAR, HUMAN 300 UNIT/3 ML VIAL SQ PRN ×3 (00:49→17:49)
[2021-02-20] MEDS: CEFEPIME HCL 2 G in IV DEXTROSE 5% 100 ML IV SCH ×2 (01:30→13:23)
[2021-02-20 01:41] LABS: CREATININE 0.5 mg/dL (0.6-1.3); UREA NITROGEN, BLOOD 19 mg/dL (7-18); VANCOMYCIN,TROUGH 11.4 ug/mL (12.0-20.0)
[2021-02-20] MEDS: VANCOMYCIN IV 1,000 MG in IV DEXTROSE 5% 250 ML IV SCH (02:33)
--- NOTE | 2021-02-20 02:33 | NUR ---
Vancomycin Trough result is 11.4, administered Vancomycin as ordered, no adverse reactions noted.
--- NOTE | 2021-02-20 02:34 | NUR ---
Patient is on Vancomycin and cefepime IV for Fever, no adverse reactions noted, afebrile, suctioned with yellow secretions, no adverse reactions noted, with ongoing treatment to sacral wound as ordered, Patiño catheter is draining well with yellow urine, good diane care rendered, turned and repositioned, kept clean and comfortable. Addendum: 02/20/21 at 0250 by ISRRAEL ESTEVES RN Still on NS 0.9% @ 60ml/hr infusing well on Left hand, no signs of infection at this time, will continue monitor.
[2021-02-20] MEDS: HYDROCODONE/APAP 5-325MG TABLET GT PRN ×2 (04:44→12:31)
[2021-02-20] MEDS: GLUCERNA 1.2 1000ML LIQUID GT PRN ×2 (05:05→12:31)
[2021-02-20] MEDS: ARGININE/GLUTAMINE/CALCIUM BMB 1 EACH POWD.PACK GT SCH ×2 (05:06→17:48)
[2021-02-20 06:19] VITALS: BP 110/77
[2021-02-20 07:22] VITALS: BP 147/83
[2021-02-20] MEDS: HYDROGEN PEROXIDE 3% 118 ML BOTTLE TP SCH ×2 (08:58→21:38)
[2021-02-20] MEDS: IV NS 1000 ML 1,000 ML IV SCH (09:02)
--- NOTE | 2021-02-20 09:21 | NUR ---
PERIPHERAL IV SITE CHANGED TO RT. HAND AT FIRST ATTEMPT AND WITH GOOD BLOOD RETURN.
[2021-02-20] MEDS: BACLOFEN 10 MG TABLET GT SCH ×2 (09:24→21:11)
[2021-02-20] MEDS: TERAZOSIN 1 MG CAPSULE GT SCH (09:24)
[2021-02-20] MEDS: ACETAMINOPHEN 650 MG/20 ML UDC- SA PATIENTS-PAIN ONLY GT SCH ×2 (09:24→21:01)
[2021-02-20] MEDS: levETIRAcetam 500 MG/5 ML LIQUID UDC GT SCH ×2 (09:24→21:11)
[2021-02-20] MEDS: METOPROLOL TARTRATE 25 MG TABLET GT SCH ×2 (09:25→21:12)
[2021-02-20] MEDS: SODIUM HYPOCHLORITE 0.125% (QUARTER STRENGTH) 473 ML BOTTLE TP SCH ×2 (09:25→21:00)
[2021-02-20] MEDS: NYSTATIN CREAM 30 GM TUBE TP SCH ×2 (09:25→21:00)
[2021-02-20] MEDS: PHENOBARBITAL 97.2 MG TABLET GT SCH ×2 (09:25→21:12)
[2021-02-20] MEDS: COD LIVER OIL/ZINC OXIDE OINT 113 GM TUBE TOP SCH ×2 (09:25→21:12)
[2021-02-20] MEDS: VITAMINS A AND D OINT TP SCH ×2 (09:25→21:12)
[2021-02-20] MEDS: TRIAMCINOLONE ACET 0.1% CREAM 15 GM TUBE TP SCH ×2 (09:25→21:00)
[2021-02-20] MEDS: AMANTADINE HCL 50 MG/5 ML GT SCH ×2 (09:25→21:12)
[2021-02-20] MEDS: HEPARIN SODIUM,PORCINE 5,000 UNITS/ML VIAL SQ SCH ×2 (09:25→21:27)
[2021-02-20] MEDS: FAMOTIDINE 20 MG TABLET GT SCH ×2 (09:25→21:12)
--- NOTE | 2021-02-20 17:00 | NUR ---
PT' S DTR. SARBJIT VISITING AT THIS TIME AND AWARE OF COVID 19 TEST DONE TODAY PER [facility] REQUIREMENT.
[2021-02-20 18:54] VITALS: BP 157/89
[2021-02-20 20:03] VITALS: BP 156/88
[2021-02-20] MEDS: MINERAL OIL/PETROLAT OPHT OINT 3.5 GM TUBE EACHEYE SCH (21:09)
[2021-02-20] MEDS: hydrALAZINE HCL 25 MG TABLET GT SCH (21:11)
[2021-02-20] MEDS: ATORVASTATIN 40 MG TABLET GT SCH (21:11)
[2021-02-20] MEDS: THIAMINE HCL 100 MG TABLET GT SCH (21:12)
[2021-02-20] MEDS: ASCORBIC ACID 500 MG TABLET GT SCH (21:12)
--- NOTE | 2021-02-20 22:20 | NUR ---
Still on NS 0.9% @ 60ml/hr is infusing well on Right Forearm, no infiltration noted. Patient is still on Vancomycin and cefepime IV for Fever, no adverse reactions noted, afebrile, suctioned with yellow secretions, with ongoing treatment to sacral wound as ordered, Patiño catheter is draining well with yellow urine, good diane care rendered, turned and repositioned, kept clean and comfortable.
[2021-02-21] VITALS: BP 138/79
[2021-02-21] MEDS: IPRATROPIUM BROMIDE 0.5 MG/2.5 ML NEBU NEB SCH ×4 (00:56→18:55)
[2021-02-21] MEDS: LEVALBUTEROL HCL 1.25 MG/0.5 ML NEB NEB SCH ×4 (00:56→18:55)
[2021-02-21] MEDS: CEFEPIME HCL 2 G in IV DEXTROSE 5% 100 ML IV SCH ×2 (01:40→13:58)
[2021-02-21] MEDS: IV NS 1000 ML 1,000 ML IV SCH ×2 (01:41→19:30)
[2021-02-21] MEDS: INSULIN REGULAR, HUMAN 300 UNIT/3 ML VIAL SQ PRN ×5 (01:43→18:34)
[2021-02-21] MEDS: VANCOMYCIN IV 1,000 MG in IV DEXTROSE 5% 250 ML IV SCH ×2 (02:04→14:06)
[2021-02-21] MEDS: BLOOD SUGAR DIAGNOSTIC 1 EACH STRIP VI SCH ×4 (05:56→18:33)
[2021-02-21] MEDS: ARGININE/GLUTAMINE/CALCIUM BMB 1 EACH POWD.PACK GT SCH ×2 (05:56→18:21)
[2021-02-21 06:00] VITALS: BP 150/87
[2021-02-21] MEDS: GLUCERNA 1.2 1000ML LIQUID GT PRN (06:30)
[2021-02-21 07:07] LABS: CARBON DIOXIDE 32 mmol/L (21-32); CHLORIDE 95 mmol/L (98-107); CREATININE 0.6 mg/dL (0.6-1.3); GLUCOSE 174 mg/dL (74-106); POTASSIUM 4.1 mmol/L (3.5-5.1); UREA NITROGEN, BLOOD 16 mg/dL (7-18)
[2021-02-21 07:26] VITALS: BP 133/79
[2021-02-21] MEDS: ACETAMINOPHEN 650 MG/20 ML UDC- SA PATIENTS-PAIN ONLY GT SCH ×2 (08:30→21:08)
[2021-02-21] MEDS: levETIRAcetam 500 MG/5 ML LIQUID UDC GT SCH ×2 (09:37→21:08)
[2021-02-21] MEDS: BACLOFEN 10 MG TABLET GT SCH ×2 (09:37→21:08)
[2021-02-21] MEDS: TERAZOSIN 1 MG CAPSULE GT SCH (09:37)
[2021-02-21] MEDS: VITAMINS A AND D OINT TP SCH ×2 (09:38→21:21)
[2021-02-21] MEDS: FAMOTIDINE 20 MG TABLET GT SCH ×2 (09:38→21:09)
[2021-02-21] MEDS: COD LIVER OIL/ZINC OXIDE OINT 113 GM TUBE TOP SCH ×2 (09:38→21:09)
[2021-02-21] MEDS: TRIAMCINOLONE ACET 0.1% CREAM 15 GM TUBE TP SCH ×2 (09:38→21:21)
[2021-02-21] MEDS: METOPROLOL TARTRATE 25 MG TABLET GT SCH ×2 (09:38→21:09)
[2021-02-21] MEDS: AMANTADINE HCL 50 MG/5 ML GT SCH ×2 (09:38→21:09)
[2021-02-21] MEDS: NYSTATIN CREAM 30 GM TUBE TP SCH ×2 (09:38→21:21)
[2021-02-21] MEDS: PHENOBARBITAL 97.2 MG TABLET GT SCH ×2 (09:38→21:09)
[2021-02-21] MEDS: SODIUM HYPOCHLORITE 0.125% (QUARTER STRENGTH) 473 ML BOTTLE TP SCH ×2 (09:39→21:00)
[2021-02-21] MEDS: HEPARIN SODIUM,PORCINE 5,000 UNITS/ML VIAL SQ SCH ×2 (09:39→20:38)
[2021-02-21] MEDS: HYDROGEN PEROXIDE 3% 118 ML BOTTLE TP SCH ×2 (09:42→21:04)
--- NOTE | 2021-02-21 10:27 | NUR ---
SEEN NOTES FROM THIEN IRAHETA (Robin) AND WITH NAMO.
[2021-02-21] MEDS: HYDROCODONE/APAP 5-325MG TABLET GT PRN (10:32)
[2021-02-21 12:00] VITALS: BP 142/68
--- NOTE | 2021-02-21 14:08 | NUR ---
SEEN BY FABY CASTRO AND WITH NNO.
--- NOTE | 2021-02-21 14:37 | NUR ---
SEEN BY DR. MORTENSEN AND WITH NNO.
[2021-02-21 18:00] VITALS: BP 136/71
--- NOTE | 2021-02-21 18:18 | NUR ---
PT. WITH RECTAL TEMP 102.2F.AND THIEN IRAHETA WAS NOTIFIED AND WITH NEW ORDERS CARRIED OUT.
--- NOTE | 2021-02-21 19:05 | NUR ---
DR. COLLINS WAS AWARE OF FEVER AND NNO ,IN AGREEMENT WITH ORDERS FROM THIEN (I.D).
--- NOTE | 2021-02-21 19:27 | NUR ---
NOC.SHIFT NURSE WAS ENDORSED TO COLLECT URINE FOR UA C&S.
--- NOTE | 2021-02-21 19:28 | NUR ---
BLOOD CX WAS DRAWN BY MEDIA PROMOTER.
[2021-02-21 20:07] VITALS: BP 140/82
--- NOTE | 2021-02-21 20:33 | NUR ---
PT.WAS NEGATIVE FOR COVID 19 TEST AND PT'S DTR. WAS NOTIFIED AND ALSO AWARE OF FEVER EPISODE TODAY AND LATEST ORDERS AND IN AGREEMENT.
[2021-02-21] MEDS: ATORVASTATIN 40 MG TABLET GT SCH (21:08)
[2021-02-21] MEDS: hydrALAZINE HCL 25 MG TABLET GT SCH (21:08)
[2021-02-21] MEDS: MINERAL OIL/PETROLAT OPHT OINT 3.5 GM TUBE EACHEYE SCH (21:08)
[2021-02-21] MEDS: ASCORBIC ACID 500 MG TABLET GT SCH (21:09)
[2021-02-21] MEDS: THIAMINE HCL 100 MG TABLET GT SCH (21:09)
[2021-02-21 23:10] LABS: *BILIRUBIN,URIN NEGATIVE (NEGATIVE); *CLARITY,URINE CLEAR (CLEAR); *COLOR,URINE YELLOW (YELLOW); *KETONES,URINE NEGATIVE (NEGATIVE); *UROBILINOGEN,URINE 0.2 E.U./dl (NORMAL); LEUKOCYTE ESTERASE ,URINE NEGATIVE (NEGATIVE); NITRITE, URINE NEGATIVE (NEGATIVE); UGLUCOSE NEGATIVE (NEGATIVE)
[2021-02-21 23:20] LABS: *BLOOD, URINE TRACE (NEGATIVE)
[2021-02-21 23:21] LABS: BACTERIA,URINE NONE SEEN /HPF (NONE SEEN); SQUAMOUS EPITHELIAL CELL,UR NONE SEEN /HPF (NONE SEEN); WBC,URINE 0-3 /HPF (0-3)
[2021-02-22] VITALS (7 sets, daily range): BP systolic 135–154; BP diastolic 75–95
[2021-02-22] MEDS: INSULIN REGULAR, HUMAN 300 UNIT/3 ML VIAL SQ PRN ×5 (00:30→23:48)
[2021-02-22] MEDS: LEVALBUTEROL HCL 1.25 MG/0.5 ML NEB NEB SCH ×4 (00:46→18:30)
[2021-02-22] MEDS: IPRATROPIUM BROMIDE 0.5 MG/2.5 ML NEBU NEB SCH ×4 (00:46→18:30)
[2021-02-22] MEDS: CEFEPIME HCL 2 G in IV DEXTROSE 5% 100 ML IV SCH ×2 (01:20→13:30)
[2021-02-22] MEDS: VANCOMYCIN IV 1,000 MG in IV DEXTROSE 5% 250 ML IV SCH ×2 (01:53→15:00)
--- NOTE | 2021-02-22 05:34 | NUR ---
iv n.s. @60ml/hr, vancomycin iv and cefepime iv for fever, no adverse reaction noted, afebrile, no respiratory distress noted.
[2021-02-22] MEDS: BLOOD SUGAR DIAGNOSTIC 1 EACH STRIP VI SCH ×5 (05:54→23:47)
[2021-02-22] MEDS: ARGININE/GLUTAMINE/CALCIUM BMB 1 EACH POWD.PACK GT SCH ×2 (05:54→18:33)
[2021-02-22] MEDS: GLUCERNA 1.2 1000ML LIQUID GT PRN ×2 (06:16→18:33)
[2021-02-22 07:36] LABS: CREATININE 0.4 mg/dL (0.6-1.3); UREA NITROGEN, BLOOD 18 mg/dL (7-18)
[2021-02-22 07:36] LABS: CARBON DIOXIDE 30 mmol/L (21-32); CHLORIDE 97 mmol/L (98-107); CREATININE 0.4 mg/dL (0.6-1.3); GLUCOSE 151 mg/dL (74-106); POTASSIUM 4.2 mmol/L (3.5-5.1); UREA NITROGEN, BLOOD 18 mg/dL (7-18)
[2021-02-22] MEDS: ACETAMINOPHEN 650 MG/20 ML UDC- SA PATIENTS-PAIN ONLY GT SCH ×2 (08:07→20:30)
[2021-02-22] MEDS: levETIRAcetam 500 MG/5 ML LIQUID UDC GT SCH ×2 (08:08→21:38)
[2021-02-22] MEDS: TERAZOSIN 1 MG CAPSULE GT SCH (08:08)
[2021-02-22] MEDS: BACLOFEN 10 MG TABLET GT SCH ×2 (08:08→21:38)
[2021-02-22] MEDS: COD LIVER OIL/ZINC OXIDE OINT 113 GM TUBE TOP SCH ×2 (08:09→21:42)
[2021-02-22] MEDS: PHENOBARBITAL 97.2 MG TABLET GT SCH ×2 (08:09→21:39)
[2021-02-22] MEDS: NYSTATIN CREAM 30 GM TUBE TP SCH ×2 (08:09→21:42)
[2021-02-22] MEDS: VITAMINS A AND D OINT TP SCH ×2 (08:09→21:42)
[2021-02-22] MEDS: SODIUM HYPOCHLORITE 0.125% (QUARTER STRENGTH) 473 ML BOTTLE TP SCH ×2 (08:09→21:42)
[2021-02-22] MEDS: TRIAMCINOLONE ACET 0.1% CREAM 15 GM TUBE TP SCH ×2 (08:09→21:42)
[2021-02-22] MEDS: FAMOTIDINE 20 MG TABLET GT SCH ×2 (08:09→21:39)
[2021-02-22] MEDS: METOPROLOL TARTRATE 25 MG TABLET GT SCH ×2 (08:09→21:39)
[2021-02-22] MEDS: AMANTADINE HCL 50 MG/5 ML GT SCH ×2 (08:09→21:40)
[2021-02-22] MEDS: HEPARIN SODIUM,PORCINE 5,000 UNITS/ML VIAL SQ SCH ×2 (08:56→21:42)
[2021-02-22] MEDS: HYDROGEN PEROXIDE 3% 118 ML BOTTLE TP SCH ×2 (09:16→21:04)
[2021-02-22] MEDS: IV NS 1000 ML 1,000 ML IV SCH (11:00)
--- NOTE | 2021-02-22 18:35 | NUR ---
Afebrile,no respiratory distress noted continue on Iv fluids Ns at 60 cc/hr,on ivatb vancomycin and Cefepine Ivpb ,no adverse reaction noted,iv HL intact,no s/s of infiltration noted.
[2021-02-22] MEDS: MINERAL OIL/PETROLAT OPHT OINT 3.5 GM TUBE EACHEYE SCH (21:35)
[2021-02-22] MEDS: hydrALAZINE HCL 25 MG TABLET GT SCH (21:36)
[2021-02-22] MEDS: ATORVASTATIN 40 MG TABLET GT SCH (21:38)
[2021-02-22] MEDS: THIAMINE HCL 100 MG TABLET GT SCH (21:40)
[2021-02-22] MEDS: ASCORBIC ACID 500 MG TABLET GT SCH (21:41)
--- NOTE | 2021-02-22 21:49 | NUR ---
Afebrile, still on NS @ 60ml/hr, infusing well on Right hand, no infiltration on IV site noted. Still on Vancomycin and Cefepime IV for Fever/Pseudomonas in the Sputum, and MRSA in the sacral wound. Fluids given as ordered, Patiño catheter draining well with yellow urine, good diane care rendered, with ongoing treatment to sacral wound as ordered, turned and repositioned patient, kept patient clean and comfortable.
[2021-02-23] MEDS: LEVALBUTEROL HCL 1.25 MG/0.5 ML NEB NEB SCH ×4 (01:24→20:06)
[2021-02-23] MEDS: IPRATROPIUM BROMIDE 0.5 MG/2.5 ML NEBU NEB SCH ×4 (01:24→20:06)
[2021-02-23] MEDS: VANCOMYCIN IV 1,000 MG in IV DEXTROSE 5% 250 ML IV SCH ×2 (02:14→14:06)
[2021-02-23] MEDS: CEFEPIME HCL 2 G in IV DEXTROSE 5% 100 ML IV SCH ×2 (02:14→14:06)
[2021-02-23] MEDS: IV NS 1000 ML 1,000 ML IV SCH ×2 (03:40→20:20)
[2021-02-23] MEDS: HYDROCODONE/APAP 5-325MG TABLET GT PRN (05:00)
[2021-02-23] MEDS: ARGININE/GLUTAMINE/CALCIUM BMB 1 EACH POWD.PACK GT SCH ×2 (05:56→17:27)
[2021-02-23] MEDS: BLOOD SUGAR DIAGNOSTIC 1 EACH STRIP VI SCH ×3 (05:56→17:28)
[2021-02-23] MEDS: INSULIN REGULAR, HUMAN 300 UNIT/3 ML VIAL SQ PRN ×3 (05:58→17:29)
[2021-02-23 06:03] VITALS: BP 129/80
[2021-02-23 06:58] LABS: CARBON DIOXIDE 28 mmol/L (21-32); CHLORIDE 96 mmol/L (98-107); CREATININE 0.4 mg/dL (0.6-1.3); GLUCOSE 182 mg/dL (74-106); POTASSIUM 4.1 mmol/L (3.5-5.1); UREA NITROGEN, BLOOD 17 mg/dL (7-18)
[2021-02-23 07:26] VITALS: BP 160/80
[2021-02-23] MEDS: ACETAMINOPHEN 650 MG/20 ML UDC- SA PATIENTS-PAIN ONLY GT SCH ×2 (08:56→19:57)
[2021-02-23] MEDS: levETIRAcetam 500 MG/5 ML LIQUID UDC GT SCH ×2 (08:57→21:00)
[2021-02-23] MEDS: TERAZOSIN 1 MG CAPSULE GT SCH (08:57)
[2021-02-23] MEDS: METOPROLOL TARTRATE 25 MG TABLET GT SCH ×2 (08:58→21:00)
[2021-02-23] MEDS: FAMOTIDINE 20 MG TABLET GT SCH ×2 (08:58→21:00)
[2021-02-23] MEDS: AMANTADINE HCL 50 MG/5 ML GT SCH ×2 (08:58→21:00)
[2021-02-23] MEDS: PHENOBARBITAL 97.2 MG TABLET GT SCH ×2 (08:58→21:00)
[2021-02-23] MEDS: BACLOFEN 10 MG TABLET GT SCH ×2 (08:58→21:00)
[2021-02-23] MEDS: COD LIVER OIL/ZINC OXIDE OINT 113 GM TUBE TOP SCH ×2 (08:59→21:00)
[2021-02-23] MEDS: SODIUM HYPOCHLORITE 0.125% (QUARTER STRENGTH) 473 ML BOTTLE TP SCH ×2 (09:00→21:00)
[2021-02-23] MEDS: HEPARIN SODIUM,PORCINE 5,000 UNITS/ML VIAL SQ SCH ×2 (09:01→21:00)
[2021-02-23] MEDS: HYDROGEN PEROXIDE 3% 118 ML BOTTLE TP SCH ×2 (09:07→20:06)
[2021-02-23] MEDS: TRIAMCINOLONE ACET 0.1% CREAM 15 GM TUBE TP SCH ×2 (09:50→21:00)
[2021-02-23] MEDS: VITAMINS A AND D OINT TP SCH ×2 (09:55→21:00)
[2021-02-23] MEDS: NYSTATIN CREAM 30 GM TUBE TP SCH ×2 (09:55→21:00)
[2021-02-23 12:00] VITALS: BP 138/76
[2021-02-23] MEDS: GLUCERNA 1.2 1000ML LIQUID GT PRN (12:31)
[2021-02-23 18:22] VITALS: BP 146/85
[2021-02-23 20:06] VITALS: BP 133/78
[2021-02-23] MEDS: hydrALAZINE HCL 25 MG TABLET GT SCH (21:00)
[2021-02-23] MEDS: ASCORBIC ACID 500 MG TABLET GT SCH (21:00)
[2021-02-23] MEDS: MINERAL OIL/PETROLAT OPHT OINT 3.5 GM TUBE EACHEYE SCH (21:00)
[2021-02-23] MEDS: ATORVASTATIN 40 MG TABLET GT SCH (21:00)
[2021-02-23] MEDS: THIAMINE HCL 100 MG TABLET GT SCH (21:00)
[2021-02-23] MEDS ORDERED: levoFLOXacin 750 MG TABLET PO SCH (23:00)
[2021-02-24] VITALS (7 sets, daily range): BP systolic 129–168; BP diastolic 74–99
[2021-02-24] MEDS: BLOOD SUGAR DIAGNOSTIC 1 EACH STRIP VI SCH ×5 (00:24→23:17)
[2021-02-24] MEDS: INSULIN REGULAR, HUMAN 300 UNIT/3 ML VIAL SQ PRN ×5 (00:25→23:22)
--- NOTE | 2021-02-24 01:15 | NUR ---
Received electronic orders to D/C Cefepime 1gm IV and new orders for [id number] GT Q24hrs for ( DX: cellulitis )by RENOVATION PLANT SUPERVISOR Joyce Newell. Duration of treatment is yet to be further verified in the morning. Per wound culture report: 3 organism identified:organism1: Pseudomonas aeruginosa, organism 2: enterococcus species moderate growth, not VRE, Organism 3: Staph aureus-MRSA slight growth. Sensitivity reveals Cefepime as intermediate while Levo as being sensitive, thus this reflects the order. Orders verified by pharmacy and initial dose administered. Reports by previous shift of pt with spiking temp. Currently at T 98.5 Contact isolation for MRSA wound still in place. Also on VAncomycin for MRSA of wound. Continue to monitor.
[2021-02-24] MEDS: IPRATROPIUM BROMIDE 0.5 MG/2.5 ML NEBU NEB SCH ×4 (01:25→19:30)
[2021-02-24] MEDS: LEVALBUTEROL HCL 1.25 MG/0.5 ML NEB NEB SCH ×4 (01:25→19:30)
[2021-02-24] MEDS: GLUCERNA 1.2 1000ML LIQUID GT PRN ×2 (02:02→17:28)
[2021-02-24] MEDS: VANCOMYCIN IV 1,000 MG in IV DEXTROSE 5% 250 ML IV SCH ×2 (02:02→14:54)
[2021-02-24] MEDS: ARGININE/GLUTAMINE/CALCIUM BMB 1 EACH POWD.PACK GT SCH ×2 (05:35→17:27)
[2021-02-24] MEDS: ACETAMINOPHEN 650 MG/20 ML UDC- SA PATIENTS-PAIN ONLY GT SCH ×2 (08:48→20:17)
[2021-02-24] MEDS: PHENOBARBITAL 97.2 MG TABLET GT SCH ×2 (08:49→20:19)
[2021-02-24] MEDS: AMANTADINE HCL 50 MG/5 ML GT SCH ×2 (08:49→20:19)
[2021-02-24] MEDS: BACLOFEN 10 MG TABLET GT SCH ×2 (08:49→20:18)
[2021-02-24] MEDS: FAMOTIDINE 20 MG TABLET GT SCH ×2 (08:49→20:19)
[2021-02-24] MEDS: COD LIVER OIL/ZINC OXIDE OINT 113 GM TUBE TOP SCH ×2 (08:50→20:20)
[2021-02-24] MEDS: HEPARIN SODIUM,PORCINE 5,000 UNITS/ML VIAL SQ SCH ×2 (08:53→20:20)
[2021-02-24] MEDS: levETIRAcetam 500 MG/5 ML LIQUID UDC GT SCH ×2 (08:57→20:18)
[2021-02-24] MEDS: TERAZOSIN 1 MG CAPSULE GT SCH (08:57)
[2021-02-24] MEDS: METOPROLOL TARTRATE 25 MG TABLET GT SCH ×2 (08:57→20:19)
[2021-02-24] MEDS: VITAMINS A AND D OINT TP SCH ×2 (09:00→20:20)
[2021-02-24] MEDS: HYDROGEN PEROXIDE 3% 118 ML BOTTLE TP SCH ×2 (09:00→20:45)
[2021-02-24] MEDS: NYSTATIN CREAM 30 GM TUBE TP SCH ×2 (09:55→20:20)
[2021-02-24] MEDS: SODIUM HYPOCHLORITE 0.125% (QUARTER STRENGTH) 473 ML BOTTLE TP SCH ×2 (09:55→20:20)
[2021-02-24] MEDS: TRIAMCINOLONE ACET 0.1% CREAM 15 GM TUBE TP SCH ×2 (09:55→20:20)
[2021-02-24] MEDS: IV NS 1000 ML 1,000 ML IV SCH (13:00)
[2021-02-24 14:50] LABS: CARBON DIOXIDE 28 mmol/L (21-32); CHLORIDE 93 mmol/L (98-107); CREATININE 0.5 mg/dL (0.6-1.3); GLUCOSE 197 mg/dL (74-106); POTASSIUM 4.2 mmol/L (3.5-5.1); UREA NITROGEN, BLOOD 14 mg/dL (7-18)
[2021-02-24] MEDS: MINERAL OIL/PETROLAT OPHT OINT 3.5 GM TUBE EACHEYE SCH (20:18)
[2021-02-24] MEDS: ATORVASTATIN 40 MG TABLET GT SCH (20:18)
[2021-02-24] MEDS: hydrALAZINE HCL 25 MG TABLET GT SCH (20:18)
[2021-02-24] MEDS: THIAMINE HCL 100 MG TABLET GT SCH (20:19)
[2021-02-24] MEDS: ASCORBIC ACID 500 MG TABLET GT SCH (20:20)
--- NOTE | 2021-02-24 21:55 | NUR ---
Afebrile, remains on IV hydration of NS @ 60ml/hr, infusing well on Right Hand, no infiltration noted, on Levaquin via gt for cellulitis, no adverse reactions noted, on Vancomycin for fever/ pseudomonas in the sputum and MRSA in the sacral wound, no adverse reactions noted, with ongoing treatment to sacral wound as ordered, on contact isolation precaution for MRSA of sacral wound, Patiño catheter is draining with clear yellow urine, turned and repositioned, kept clean and comfortable.
[2021-02-24] MEDS: levoFLOXacin 750 MG TABLET GT SCH (23:22)
[2021-02-25] VITALS: BP 127/65
[2021-02-25] MEDS: LEVALBUTEROL HCL 1.25 MG/0.5 ML NEB NEB SCH ×4 (01:35→18:51)
[2021-02-25] MEDS: IPRATROPIUM BROMIDE 0.5 MG/2.5 ML NEBU NEB SCH ×4 (01:35→18:51)
[2021-02-25] MEDS: VANCOMYCIN IV 1,000 MG in IV DEXTROSE 5% 250 ML IV SCH ×2 (02:31→14:57)
[2021-02-25] MEDS: IV NS 1000 ML 1,000 ML IV SCH ×2 (05:56→21:36)
[2021-02-25] MEDS: BLOOD SUGAR DIAGNOSTIC 1 EACH STRIP VI SCH ×4 (05:57→23:12)
[2021-02-25] MEDS: ARGININE/GLUTAMINE/CALCIUM BMB 1 EACH POWD.PACK GT SCH ×2 (05:57→17:15)
[2021-02-25] MEDS: INSULIN REGULAR, HUMAN 300 UNIT/3 ML VIAL SQ PRN ×4 (05:58→23:15)
[2021-02-25 06:09] VITALS: BP 133/80
[2021-02-25 08:02] LABS: CARBON DIOXIDE 28 mmol/L (21-32); CHLORIDE 93 mmol/L (98-107); CREATININE 0.5 mg/dL (0.6-1.3); GLUCOSE 184 mg/dL (74-106); UREA NITROGEN, BLOOD 18 mg/dL (7-18)
[2021-02-25 08:13] VITALS: BP 152/89
[2021-02-25] MEDS: ACETAMINOPHEN 650 MG/20 ML UDC- SA PATIENTS-PAIN ONLY GT SCH ×2 (08:59→20:00)
[2021-02-25] MEDS: VITAMINS A AND D OINT TP SCH ×2 (09:00→21:01)
[2021-02-25] MEDS: HYDROGEN PEROXIDE 3% 118 ML BOTTLE TP SCH ×2 (09:00→20:50)
[2021-02-25] MEDS: levETIRAcetam 500 MG/5 ML LIQUID UDC GT SCH ×2 (09:02→21:01)
[2021-02-25] MEDS: BACLOFEN 10 MG TABLET GT SCH ×2 (09:02→21:01)
[2021-02-25] MEDS: TERAZOSIN 1 MG CAPSULE GT SCH (09:02)
[2021-02-25] MEDS: AMANTADINE HCL 50 MG/5 ML GT SCH ×2 (09:03→21:01)
[2021-02-25] MEDS: COD LIVER OIL/ZINC OXIDE OINT 113 GM TUBE TOP SCH ×2 (09:03→21:01)
[2021-02-25] MEDS: FAMOTIDINE 20 MG TABLET GT SCH ×2 (09:03→21:01)
[2021-02-25] MEDS: METOPROLOL TARTRATE 25 MG TABLET GT SCH ×2 (09:03→21:31)
[2021-02-25] MEDS: PHENOBARBITAL 97.2 MG TABLET GT SCH ×2 (09:03→21:01)
[2021-02-25] MEDS: HEPARIN SODIUM,PORCINE 5,000 UNITS/ML VIAL SQ SCH ×2 (09:05→21:33)
[2021-02-25] MEDS: TRIAMCINOLONE ACET 0.1% CREAM 15 GM TUBE TP SCH ×2 (09:52→21:01)
[2021-02-25] MEDS: SODIUM HYPOCHLORITE 0.125% (QUARTER STRENGTH) 473 ML BOTTLE TP SCH ×2 (09:55→21:01)
[2021-02-25] MEDS: NYSTATIN CREAM 30 GM TUBE TP SCH ×2 (09:55→21:01)
[2021-02-25 12:00] VITALS: BP 138/80
[2021-02-25] MEDS: GLUCERNA 1.2 1000ML LIQUID GT PRN (14:27)
[2021-02-25 18:29] VITALS: BP 143/82
[2021-02-25 20:00] VITALS: BP 158/73
[2021-02-25] MEDS: THIAMINE HCL 100 MG TABLET GT SCH (21:01)
[2021-02-25] MEDS: ATORVASTATIN 40 MG TABLET GT SCH (21:01)
[2021-02-25] MEDS: ASCORBIC ACID 500 MG TABLET GT SCH (21:01)
[2021-02-25] MEDS: MINERAL OIL/PETROLAT OPHT OINT 3.5 GM TUBE EACHEYE SCH (21:01)
[2021-02-25] MEDS: hydrALAZINE HCL 25 MG TABLET GT SCH (21:31)
[2021-02-25] MEDS: levoFLOXacin 750 MG TABLET GT SCH (23:12)
[2021-02-26 00:01] VITALS: BP 138/62
[2021-02-26] MEDS: IPRATROPIUM BROMIDE 0.5 MG/2.5 ML NEBU NEB SCH ×4 (00:21→19:22)
[2021-02-26] MEDS: LEVALBUTEROL HCL 1.25 MG/0.5 ML NEB NEB SCH ×4 (00:21→19:22)
[2021-02-26] MEDS: VANCOMYCIN IV 1,000 MG in IV DEXTROSE 5% 250 ML IV SCH ×2 (01:55→14:27)
[2021-02-26 02:22] VITALS: BP 137/78
[2021-02-26] MEDS: BLOOD SUGAR DIAGNOSTIC 1 EACH STRIP VI SCH ×4 (05:53→23:07)
[2021-02-26] MEDS: ARGININE/GLUTAMINE/CALCIUM BMB 1 EACH POWD.PACK GT SCH ×2 (05:53→18:05)
[2021-02-26] MEDS: INSULIN REGULAR, HUMAN 300 UNIT/3 ML VIAL SQ PRN ×4 (05:54→23:08)
[2021-02-26 07:38] VITALS: BP 144/73
[2021-02-26] MEDS: HYDROCODONE/APAP 5-325MG TABLET GT PRN (08:00)
[2021-02-26] MEDS: ACETAMINOPHEN 650 MG/20 ML UDC- SA PATIENTS-PAIN ONLY GT SCH ×2 (08:26→20:23)
[2021-02-26] MEDS: TERAZOSIN 1 MG CAPSULE GT SCH (08:28)
[2021-02-26] MEDS: BACLOFEN 10 MG TABLET GT SCH ×2 (08:29→20:23)
[2021-02-26] MEDS: PHENOBARBITAL 97.2 MG TABLET GT SCH ×2 (08:29→20:23)
[2021-02-26] MEDS: METOPROLOL TARTRATE 25 MG TABLET GT SCH ×2 (08:29→20:23)
[2021-02-26] MEDS: AMANTADINE HCL 50 MG/5 ML GT SCH ×2 (08:29→20:23)
[2021-02-26] MEDS: levETIRAcetam 500 MG/5 ML LIQUID UDC GT SCH ×2 (08:29→20:23)
[2021-02-26] MEDS: FAMOTIDINE 20 MG TABLET GT SCH ×2 (08:29→20:23)
[2021-02-26] MEDS: SODIUM HYPOCHLORITE 0.125% (QUARTER STRENGTH) 473 ML BOTTLE TP SCH ×2 (08:32→21:21)
[2021-02-26] MEDS: COD LIVER OIL/ZINC OXIDE OINT 113 GM TUBE TOP SCH ×2 (08:32→21:21)
[2021-02-26] MEDS: HEPARIN SODIUM,PORCINE 5,000 UNITS/ML VIAL SQ SCH ×2 (08:32→21:36)
[2021-02-26] MEDS: NYSTATIN CREAM 30 GM TUBE TP SCH ×2 (08:33→21:21)
[2021-02-26] MEDS: VITAMINS A AND D OINT TP SCH ×2 (08:33→21:21)
[2021-02-26] MEDS: TRIAMCINOLONE ACET 0.1% CREAM 15 GM TUBE TP SCH ×2 (08:33→21:21)
[2021-02-26] MEDS: HYDROGEN PEROXIDE 3% 118 ML BOTTLE TP SCH ×2 (09:46→19:22)
[2021-02-26 12:00] VITALS: BP 139/77
[2021-02-26 13:24] LABS: CARBON DIOXIDE 31 mmol/L (21-32); CHLORIDE 95 mmol/L (98-107); CREATININE 0.6 mg/dL (0.6-1.3); GLUCOSE 223 mg/dL (74-106); POTASSIUM 4.2 mmol/L (3.5-5.1); UREA NITROGEN, BLOOD 14 mg/dL (7-18)
[2021-02-26] MEDS: IV NS 1000 ML 1,000 ML IV SCH (14:27)
[2021-02-26 18:00] VITALS: BP 141/82
--- NOTE | 2021-02-26 18:12 | NUR ---
Continue on Ivatb for wound Mrsa ,Vancomycin ivatb,no adverse reaction noted,Iv changed to the L antecubital,procedure tolerated well.
[2021-02-26 20:06] VITALS: BP 130/85
[2021-02-26] MEDS: ATORVASTATIN 40 MG TABLET GT SCH (20:23)
[2021-02-26] MEDS: MINERAL OIL/PETROLAT OPHT OINT 3.5 GM TUBE EACHEYE SCH (20:23)
[2021-02-26] MEDS: THIAMINE HCL 100 MG TABLET GT SCH (20:23)
[2021-02-26] MEDS: hydrALAZINE HCL 25 MG TABLET GT SCH (20:23)
[2021-02-26] MEDS: ASCORBIC ACID 500 MG TABLET GT SCH (20:23)
[2021-02-26] MEDS: levoFLOXacin 750 MG TABLET GT SCH (23:07)
[2021-02-27] VITALS (7 sets, daily range): BP systolic 113–156; BP diastolic 60–90
[2021-02-27] MEDS: LEVALBUTEROL HCL 1.25 MG/0.5 ML NEB NEB SCH ×4 (00:35→19:24)
[2021-02-27] MEDS: IPRATROPIUM BROMIDE 0.5 MG/2.5 ML NEBU NEB SCH ×4 (00:35→19:24)
[2021-02-27] MEDS: GLUCERNA 1.2 1000ML LIQUID GT PRN ×2 (01:31→17:46)
[2021-02-27] MEDS: VANCOMYCIN IV 1,000 MG in IV DEXTROSE 5% 250 ML IV SCH ×2 (01:54→14:00)
[2021-02-27] MEDS: HYDROCODONE/APAP 5-325MG TABLET GT PRN ×3 (04:29→18:41)
[2021-02-27] MEDS: INSULIN REGULAR, HUMAN 300 UNIT/3 ML VIAL SQ PRN ×4 (05:12→23:26)
[2021-02-27] MEDS: ARGININE/GLUTAMINE/CALCIUM BMB 1 EACH POWD.PACK GT SCH ×2 (05:17→17:46)
[2021-02-27] MEDS: BLOOD SUGAR DIAGNOSTIC 1 EACH STRIP VI SCH ×4 (05:17→23:25)
[2021-02-27] MEDS: HYDROGEN PEROXIDE 3% 118 ML BOTTLE TP SCH ×2 (09:00→19:24)
[2021-02-27] MEDS: ACETAMINOPHEN 650 MG/20 ML UDC- SA PATIENTS-PAIN ONLY GT SCH ×2 (09:32→20:26)
[2021-02-27] MEDS: levETIRAcetam 500 MG/5 ML LIQUID UDC GT SCH ×2 (09:33→20:27)
[2021-02-27] MEDS: TERAZOSIN 1 MG CAPSULE GT SCH (09:33)
[2021-02-27] MEDS: BACLOFEN 10 MG TABLET GT SCH ×2 (09:33→20:27)
[2021-02-27] MEDS: FAMOTIDINE 20 MG TABLET GT SCH ×2 (09:34→20:29)
[2021-02-27] MEDS: AMANTADINE HCL 50 MG/5 ML GT SCH ×2 (09:34→20:29)
[2021-02-27] MEDS: PHENOBARBITAL 97.2 MG TABLET GT SCH ×2 (09:34→20:29)
[2021-02-27] MEDS: METOPROLOL TARTRATE 25 MG TABLET GT SCH ×2 (09:34→20:29)
[2021-02-27] MEDS: COD LIVER OIL/ZINC OXIDE OINT 113 GM TUBE TOP SCH ×2 (09:35→21:32)
[2021-02-27] MEDS: HEPARIN SODIUM,PORCINE 5,000 UNITS/ML VIAL SQ SCH ×2 (09:35→21:32)
[2021-02-27] MEDS: VITAMINS A AND D OINT TP SCH ×2 (09:36→21:32)
[2021-02-27] MEDS: LORAZEPAM 1 MG TABLET GT PRN (09:36)
[2021-02-27] MEDS: SODIUM HYPOCHLORITE 0.125% (QUARTER STRENGTH) 473 ML BOTTLE TP SCH ×2 (09:36→21:32)
[2021-02-27] MEDS: TRIAMCINOLONE ACET 0.1% CREAM 15 GM TUBE TP SCH ×2 (09:36→21:32)
[2021-02-27] MEDS: NYSTATIN CREAM 30 GM TUBE TP SCH ×2 (09:36→21:32)
--- NOTE | 2021-02-27 13:16 | NUR ---
New orders to Dc iv fluids ,Continue on ivatb Vancomycin Ivatb,no adverse reaction noted,Iv site intact on the L antecubital.
[2021-02-27 17:19] LABS: CARBON DIOXIDE 30 mmol/L (21-32); CHLORIDE 95 mmol/L (98-107); CREATININE 0.4 mg/dL (0.6-1.3); GLUCOSE 195 mg/dL (74-106); POTASSIUM 4.2 mmol/L (3.5-5.1); UREA NITROGEN, BLOOD 14 mg/dL (7-18)
--- NOTE | 2021-02-27 19:29 | NUR ---
Covid 19 test done today,Pt's daughter notified.
[2021-02-27] MEDS: MINERAL OIL/PETROLAT OPHT OINT 3.5 GM TUBE EACHEYE SCH (20:26)
[2021-02-27] MEDS: ATORVASTATIN 40 MG TABLET GT SCH (20:27)
[2021-02-27] MEDS: hydrALAZINE HCL 25 MG TABLET GT SCH (20:27)
[2021-02-27] MEDS: ASCORBIC ACID 500 MG TABLET GT SCH (20:29)
[2021-02-27] MEDS: THIAMINE HCL 100 MG TABLET GT SCH (20:29)
--- NOTE | 2021-02-27 22:39 | NUR ---
Nurses reported that patient has vomited X 2 with yellowish feeding like consistency approximately 300ml, held feeding at this time, HOB elevated, on aspiration and seizure precaution. , Kept patient clean and comfortable, paged Shari Sanders NP cfo controller at this time.
--- NOTE | 2021-02-27 22:52 | NUR ---
Shari Sanders NP called back with new orders to Hold GT feeding TYE ibrahim in Am, and Zofran 4mg via gt every 8 hours as needed for nausea /vomiting, noted and carried out.
[2021-02-27] MEDS: levoFLOXacin 750 MG TABLET GT SCH (23:16)
[2021-02-27] MEDS: ONDANSETRON HCL 4 MG TABLET GT PRN (23:40)
[2021-02-27] MEDS ORDERED: ONDANSETRON HCL 4 MG TABLET ONE (23:41)
[2021-02-28 00:01] VITALS: BP 142/90
[2021-02-28] MEDS: LEVALBUTEROL HCL 1.25 MG/0.5 ML NEB NEB SCH ×4 (00:46→19:01)
[2021-02-28] MEDS: IPRATROPIUM BROMIDE 0.5 MG/2.5 ML NEBU NEB SCH ×4 (00:46→19:01)
[2021-02-28] MEDS: VANCOMYCIN IV 1,000 MG in IV DEXTROSE 5% 250 ML IV SCH ×2 (02:55→13:14)
[2021-02-28] MEDS: ARGININE/GLUTAMINE/CALCIUM BMB 1 EACH POWD.PACK GT SCH ×2 (05:58→18:06)
[2021-02-28] MEDS: BLOOD SUGAR DIAGNOSTIC 1 EACH STRIP VI SCH ×3 (05:58→18:06)
[2021-02-28] MEDS: INSULIN REGULAR, HUMAN 300 UNIT/3 ML VIAL SQ PRN ×3 (06:00→18:06)
[2021-02-28 06:08] VITALS: BP 138/85
--- NOTE | 2021-02-28 06:33 | NUR ---
Patient is sleeping , no vomiting noted at this time, afebrile, no signs of any distress at this time, turned and repositioned, kept clean and comfortable.
--- NOTE | 2021-02-28 06:51 | NUR ---
Called Janis ROBLERO) and left message to call back.
[2021-02-28 07:09] LABS: CARBON DIOXIDE 31 mmol/L (21-32); CHLORIDE 94 mmol/L (98-107); CREATININE 0.4 mg/dL (0.6-1.3); GLUCOSE 168 mg/dL (74-106); POTASSIUM 4.3 mmol/L (3.5-5.1); UREA NITROGEN, BLOOD 15 mg/dL (7-18)
[2021-02-28 07:23] VITALS: BP 164/82
[2021-02-28] MEDS: AMANTADINE HCL 50 MG/5 ML GT SCH ×2 (09:07→21:25)
[2021-02-28] MEDS: TERAZOSIN 1 MG CAPSULE GT SCH (09:07)
[2021-02-28] MEDS: ACETAMINOPHEN 650 MG/20 ML UDC- SA PATIENTS-PAIN ONLY GT SCH ×2 (09:07→21:09)
[2021-02-28] MEDS: HEPARIN SODIUM,PORCINE 5,000 UNITS/ML VIAL SQ SCH ×2 (09:07→21:46)
[2021-02-28] MEDS: PHENOBARBITAL 97.2 MG TABLET GT SCH ×2 (09:07→21:25)
[2021-02-28] MEDS: METOPROLOL TARTRATE 25 MG TABLET GT SCH ×2 (09:07→21:24)
[2021-02-28] MEDS: FAMOTIDINE 20 MG TABLET GT SCH ×2 (09:07→21:24)
[2021-02-28] MEDS: levETIRAcetam 500 MG/5 ML LIQUID UDC GT SCH ×2 (09:07→21:24)
[2021-02-28] MEDS: BACLOFEN 10 MG TABLET GT SCH ×2 (09:07→21:24)
[2021-02-28] MEDS: VITAMINS A AND D OINT TP SCH ×2 (09:08→21:26)
[2021-02-28] MEDS: TRIAMCINOLONE ACET 0.1% CREAM 15 GM TUBE TP SCH ×2 (09:08→21:26)
[2021-02-28] MEDS: SODIUM HYPOCHLORITE 0.125% (QUARTER STRENGTH) 473 ML BOTTLE TP SCH ×2 (09:08→21:26)
[2021-02-28] MEDS: NYSTATIN CREAM 30 GM TUBE TP SCH ×2 (09:08→21:26)
[2021-02-28] MEDS: COD LIVER OIL/ZINC OXIDE OINT 113 GM TUBE TOP SCH ×2 (09:08→21:26)
[2021-02-28] MEDS: HYDROGEN PEROXIDE 3% 118 ML BOTTLE TP SCH ×2 (09:11→21:20)
[2021-02-28] MEDS: HYDROCODONE/APAP 5-325MG TABLET GT PRN (09:14)
[2021-02-28 12:00] VITALS: BP 151/6
[2021-02-28 18:00] VITALS: BP 145/77
--- NOTE | 2021-02-28 20:15 | NUR ---
Rabia per patient's daughter Janis's permission Zoomed with patient.
[2021-02-28 20:57] VITALS: BP 140/90
[2021-02-28] MEDS: MINERAL OIL/PETROLAT OPHT OINT 3.5 GM TUBE EACHEYE SCH (21:09)
[2021-02-28] MEDS: hydrALAZINE HCL 25 MG TABLET GT SCH (21:24)
[2021-02-28] MEDS: ATORVASTATIN 40 MG TABLET GT SCH (21:24)
[2021-02-28] MEDS: THIAMINE HCL 100 MG TABLET GT SCH (21:25)
[2021-02-28] MEDS: ASCORBIC ACID 500 MG TABLET GT SCH (21:26)
--- NOTE | 2021-02-28 22:25 | NUR ---
Patient is afebrile, no vomiting noted at this time, 02 sat is 98%, Gt feeding tolerating well, no residual noted. On Levaquin via GT for Cellulitis,Still on Vancomycin IV for MRSA in the wound, on contact isolation for MRSA of sacral wound. On aspiration and seizure precaution, HOB elevated, abdomen is soft to the touch, Patiño catheter is draining well with yellow urine, good diane care rendered, turned and repositioned, wound care done as ordered, kept clean and comfortable.
[2021-02-28] MEDS: levoFLOXacin 750 MG TABLET GT SCH (23:09)
[2021-03-01] MEDS: BLOOD SUGAR DIAGNOSTIC 1 EACH STRIP VI SCH ×5 (00:19→23:50)
[2021-03-01] MEDS: INSULIN REGULAR, HUMAN 300 UNIT/3 ML VIAL SQ PRN ×5 (00:25→23:51)
[2021-03-01] MEDS: LEVALBUTEROL HCL 1.25 MG/0.5 ML NEB NEB SCH ×4 (00:31→19:02)
[2021-03-01] MEDS: IPRATROPIUM BROMIDE 0.5 MG/2.5 ML NEBU NEB SCH ×4 (00:31→19:02)
[2021-03-01] MEDS: VANCOMYCIN IV 1,000 MG in IV DEXTROSE 5% 250 ML IV SCH ×2 (02:47→15:00)
[2021-03-01] MEDS: GLUCERNA 1.2 1000ML LIQUID GT PRN (05:00)
[2021-03-01] MEDS: ARGININE/GLUTAMINE/CALCIUM BMB 1 EACH POWD.PACK GT SCH ×2 (05:05→17:49)
[2021-03-01 06:00] VITALS: BP 112/72
[2021-03-01 07:30] VITALS: BP 131/79
[2021-03-01 07:34] LABS: CARBON DIOXIDE 31 mmol/L (21-32); CHLORIDE 94 mmol/L (98-107); CREATININE 0.5 mg/dL (0.6-1.3); GLUCOSE 139 mg/dL (74-106); UREA NITROGEN, BLOOD 20 mg/dL (7-18)
[2021-03-01] MEDS: HYDROCODONE/APAP 5-325MG TABLET GT PRN ×2 (08:00→18:22)
[2021-03-01] MEDS: ACETAMINOPHEN 650 MG/20 ML UDC- SA PATIENTS-PAIN ONLY GT SCH ×2 (08:09→20:49)
[2021-03-01] MEDS: TERAZOSIN 1 MG CAPSULE GT SCH (08:13)
[2021-03-01] MEDS: BACLOFEN 10 MG TABLET GT SCH ×2 (08:19→20:50)
[2021-03-01] MEDS: METOPROLOL TARTRATE 25 MG TABLET GT SCH ×2 (08:19→20:51)
[2021-03-01] MEDS: COD LIVER OIL/ZINC OXIDE OINT 113 GM TUBE TOP SCH ×2 (08:19→20:53)
[2021-03-01] MEDS: HEPARIN SODIUM,PORCINE 5,000 UNITS/ML VIAL SQ SCH ×2 (08:19→20:53)
[2021-03-01] MEDS: AMANTADINE HCL 50 MG/5 ML GT SCH ×2 (08:19→20:52)
[2021-03-01] MEDS: levETIRAcetam 500 MG/5 ML LIQUID UDC GT SCH ×2 (08:19→20:50)
[2021-03-01] MEDS: PHENOBARBITAL 97.2 MG TABLET GT SCH ×2 (08:19→20:52)
[2021-03-01] MEDS: FAMOTIDINE 20 MG TABLET GT SCH ×2 (08:19→20:52)
[2021-03-01] MEDS: VITAMINS A AND D OINT TP SCH ×2 (08:20→20:54)
[2021-03-01] MEDS: TRIAMCINOLONE ACET 0.1% CREAM 15 GM TUBE TP SCH ×2 (08:20→20:53)
[2021-03-01] MEDS: NYSTATIN CREAM 30 GM TUBE TP SCH ×2 (08:20→20:54)
[2021-03-01] MEDS: SODIUM HYPOCHLORITE 0.125% (QUARTER STRENGTH) 473 ML BOTTLE TP SCH ×2 (08:20→20:54)
[2021-03-01] MEDS: HYDROGEN PEROXIDE 3% 118 ML BOTTLE TP SCH ×2 (09:14→19:02)
--- NOTE | 2021-03-01 15:37 | NUR ---
Continue on Vancomycin Ivatb , for wound Mrsa with no adverse reaction noted.Iv site intact,no s/s of infiltration noted.
[2021-03-01 18:00] VITALS: BP 125/82
--- NOTE | 2021-03-01 18:37 | NUR ---
Noted pt has respiratory distress using accesory muscles, with a RR of 40 and a Hr of 169,o2 sat 100 % on 28 % p mist,temp 98.2,b/p 130/76.spoke with Dr Fuentes with new orders noted.
--- NOTE | 2021-03-01 18:44 | NUR ---
Pt continue with labored breathing,temperature recheck 101.4 axillary,cooling measures started.
--- NOTE | 2021-03-01 19:48 | NUR ---
Mike 6TH GRADE TEACHER was notified with orders to notified the embedded systems software engineer.with the XR results.
[2021-03-01 20:00] VITALS: BP 125/62
--- NOTE | 2021-03-01 20:35 | NUR ---
dr nieves ordered give 1 liter n.s. bolus dx hydration, get blood culture,repeat urine culture.
[2021-03-01] MEDS ORDERED: IV NS 1000 ML 1,000 ML IV ONE (20:45)
[2021-03-01] MEDS: MINERAL OIL/PETROLAT OPHT OINT 3.5 GM TUBE EACHEYE SCH (20:50)
[2021-03-01] MEDS: ATORVASTATIN 40 MG TABLET GT SCH (20:50)
[2021-03-01] MEDS: hydrALAZINE HCL 25 MG TABLET GT SCH (20:51)
[2021-03-01] MEDS: THIAMINE HCL 100 MG TABLET GT SCH (20:52)
[2021-03-01] MEDS: ASCORBIC ACID 500 MG TABLET GT SCH (20:52)
[2021-03-01 22:15] VITALS: BP 135/79
[2021-03-01] MEDS: levoFLOXacin 750 MG TABLET GT SCH (23:00)
[2021-03-02] VITALS (7 sets, daily range): BP systolic 133–165; BP diastolic 69–94
--- NOTE | 2021-03-02 | NUR ---
2000-101.7,146,24,125/62,98%,2200-99.0,93,24,135/79,98%, 2400-99.0,92,22,133/78,98%, blood culture done, urine culture send, 1 liter n.s. bolus given, suctioned with moderate amount of sputum, thomas catheter patent, draining clear yellow urine, no nausea or vomiting noted, pt checked frequently.
[2021-03-02] MEDS: IPRATROPIUM BROMIDE 0.5 MG/2.5 ML NEBU NEB SCH ×4 (00:35→19:39)
[2021-03-02] MEDS: LEVALBUTEROL HCL 1.25 MG/0.5 ML NEB NEB SCH ×4 (00:35→19:39)
[2021-03-02] MEDS: GLUCERNA 1.2 1000ML LIQUID GT PRN ×2 (00:47→23:24)
[2021-03-02] MEDS: VANCOMYCIN IV 1,000 MG in IV DEXTROSE 5% 250 ML IV SCH ×2 (01:53→14:52)
--- NOTE | 2021-03-02 02:39 | NUR ---
continue on vancomycin 1000mg iv for mrsa in wound, contact isolation carried out, continue on levaquin 750mg via gt for wound infection, no adverse reaction noted.
[2021-03-02] MEDS: HYDROCODONE/APAP 5-325MG TABLET GT PRN ×3 (03:00→20:00)
[2021-03-02] MEDS: ARGININE/GLUTAMINE/CALCIUM BMB 1 EACH POWD.PACK GT SCH ×2 (06:02→17:36)
[2021-03-02 06:03] LABS: CARBON DIOXIDE 30 mmol/L (21-32); CHLORIDE 96 mmol/L (98-107); CREATININE 0.6 mg/dL (0.6-1.3); GLUCOSE 129 mg/dL (74-106); POTASSIUM 4.2 mmol/L (3.5-5.1); UREA NITROGEN, BLOOD 14 mg/dL (7-18)
[2021-03-02] MEDS: BLOOD SUGAR DIAGNOSTIC 1 EACH STRIP VI SCH ×3 (06:03→17:36)
[2021-03-02] MEDS: HEPARIN SODIUM,PORCINE 5,000 UNITS/ML VIAL SQ SCH ×2 (08:26→20:58)
[2021-03-02] MEDS: ACETAMINOPHEN 650 MG/20 ML UDC- SA PATIENTS-PAIN ONLY GT SCH ×2 (08:28→20:30)
[2021-03-02] MEDS: AMANTADINE HCL 50 MG/5 ML GT SCH ×2 (08:29→20:57)
[2021-03-02] MEDS: BACLOFEN 10 MG TABLET GT SCH ×2 (08:29→20:57)
[2021-03-02] MEDS: FAMOTIDINE 20 MG TABLET GT SCH ×2 (08:29→20:57)
[2021-03-02] MEDS: TRIAMCINOLONE ACET 0.1% CREAM 15 GM TUBE TP SCH ×2 (08:29→20:58)
[2021-03-02] MEDS: METOPROLOL TARTRATE 25 MG TABLET GT SCH ×2 (08:29→20:57)
[2021-03-02] MEDS: PHENOBARBITAL 97.2 MG TABLET GT SCH ×2 (08:29→20:57)
[2021-03-02] MEDS: SODIUM HYPOCHLORITE 0.125% (QUARTER STRENGTH) 473 ML BOTTLE TP SCH ×2 (08:29→20:58)
[2021-03-02] MEDS: COD LIVER OIL/ZINC OXIDE OINT 113 GM TUBE TOP SCH ×2 (08:29→20:58)
[2021-03-02] MEDS: levETIRAcetam 500 MG/5 ML LIQUID UDC GT SCH ×2 (08:29→20:57)
[2021-03-02] MEDS: TERAZOSIN 1 MG CAPSULE GT SCH (08:29)
[2021-03-02] MEDS: VITAMINS A AND D OINT TP SCH ×2 (08:30→20:59)
[2021-03-02] MEDS: NYSTATIN CREAM 30 GM TUBE TP SCH ×2 (08:30→20:59)
[2021-03-02] MEDS: HYDROGEN PEROXIDE 3% 118 ML BOTTLE TP SCH ×2 (09:18→21:22)
[2021-03-02] MEDS: INSULIN REGULAR, HUMAN 300 UNIT/3 ML VIAL SQ PRN ×3 (12:11→23:34)
--- NOTE | 2021-03-02 17:30 | NUR ---
Seen and examined by Dr Peralta,notified regarding pt condition and cxr result with no new orders noted.Pt daughter Kylie notified,Covid 19 test result negative.
--- NOTE | 2021-03-02 19:55 | NUR ---
1930 pm pt has a RR of 24,Hr 132,temp 101.7 axillary ,Mike was notified ,she will come later and evaluated the patient,blood culture ,urine culture was repeated yesterday,Cxr was done yesterday.
--- NOTE | 2021-03-02 20:01 | NUR ---
Pt continue on vancomycin 1 GM IVPB every 12 hours for wound Mrsa ,no adverse reaction noted ,HL on the R hand intact.on Levaquin 750 mg via Gt every 24 hs ,no adverse reaction noted.
[2021-03-02] MEDS: MINERAL OIL/PETROLAT OPHT OINT 3.5 GM TUBE EACHEYE SCH (20:56)
[2021-03-02] MEDS: hydrALAZINE HCL 25 MG TABLET GT SCH (20:57)
[2021-03-02] MEDS: ASCORBIC ACID 500 MG TABLET GT SCH (20:57)
[2021-03-02] MEDS: THIAMINE HCL 100 MG TABLET GT SCH (20:57)
[2021-03-02] MEDS: ATORVASTATIN 40 MG TABLET GT SCH (20:57)
[2021-03-02] MEDS: levoFLOXacin 750 MG TABLET GT SCH (23:00)
[2021-03-03] VITALS: BP 127/76
[2021-03-03] MEDS: LEVALBUTEROL HCL 1.25 MG/0.5 ML NEB NEB SCH ×4 (01:24→19:57)
[2021-03-03] MEDS: IPRATROPIUM BROMIDE 0.5 MG/2.5 ML NEBU NEB SCH ×4 (01:24→19:57)
[2021-03-03] MEDS: VANCOMYCIN IV 1,000 MG in IV DEXTROSE 5% 250 ML IV SCH (01:27)
--- NOTE | 2021-03-03 03:57 | NUR ---
Upon report per morning shift, patient with spiking temps. Vitals recorded at 20:00- T 100.3, MA 125, RR32, Sats 98%, BP 147/82. Nera HOST notified, orders for CBC with diff, CMP, Procalcitonin in am. Meds administered as ordered and kept on cooling measures. VS monitored subsequently. 22:00 T 99.0, RR 25, MA 103. 00:00 T 98.6, BP 127/76, MA 109, RR 23, sats 100%. 02:00 T 98.6, PR112, RR25. Infused IV Vancomycin 1g via heplock on RFA g 22, without adverse reaction noted. IV site patent without signs of infiltration. Contact isolation observed for MRSA wound. 03/01- urine culture-preliminary resulted, 03/01 - blood culture preliminary, resulted- NO Growth after 24 hours. Continue to monitor.
[2021-03-03 04:00] VITALS: BP 137/82
[2021-03-03] MEDS: HYDROCODONE/APAP 5-325MG TABLET GT PRN ×2 (04:00→20:00)
[2021-03-03 05:42] LABS: HEMATOCRIT 32.3 % (36.7-47.1); MEAN CORPUSCULAR HEMOGLOBIN 28.5 uug (23.8-33.4); MEAN CORPUSCULAR VOLUME 86.1 fL (73.0-96.2); PLATELET COUNT (AUTO) 335 K/uL (152-348)
[2021-03-03] MEDS: ARGININE/GLUTAMINE/CALCIUM BMB 1 EACH POWD.PACK GT SCH ×2 (05:51→17:21)
[2021-03-03] MEDS: BLOOD SUGAR DIAGNOSTIC 1 EACH STRIP VI SCH ×4 (05:52→17:22)
[2021-03-03 05:53] LABS: ALANINE AMINOTRANSFERASE 50 U/L (16-63); ALKALINE PHOSPHATASE 114 U/L (50-136); ASPARTATE AMINOTRANSFERASE 18 U/L (15-37); BILIRUBIN,TOTAL 0.2 mg/dL (0.2-1.0); CARBON DIOXIDE 29 mmol/L (21-32); CHLORIDE 94 mmol/L (98-107); CREATININE 0.5 mg/dL (0.6-1.3); GLUCOSE 160 mg/dL (74-106); POTASSIUM 4.3 mmol/L (3.5-5.1); TOTAL PROTEIN, SERUM 7.1 g/dL (6.4-8.2); UREA NITROGEN, BLOOD 18 mg/dL (7-18)
[2021-03-03] MEDS: INSULIN REGULAR, HUMAN 300 UNIT/3 ML VIAL SQ PRN ×3 (05:53→17:24)
[2021-03-03 08:06] VITALS: BP 128/81
[2021-03-03] MEDS: ACETAMINOPHEN 650 MG/20 ML UDC- SA PATIENTS-PAIN ONLY GT SCH ×2 (09:19→20:53)
[2021-03-03] MEDS: TERAZOSIN 1 MG CAPSULE GT SCH (09:20)
[2021-03-03] MEDS: levETIRAcetam 500 MG/5 ML LIQUID UDC GT SCH ×2 (09:20→20:55)
[2021-03-03] MEDS: BACLOFEN 10 MG TABLET GT SCH ×2 (09:20→20:55)
[2021-03-03] MEDS: PHENOBARBITAL 97.2 MG TABLET GT SCH ×2 (09:21→20:56)
[2021-03-03] MEDS: SODIUM HYPOCHLORITE 0.125% (QUARTER STRENGTH) 473 ML BOTTLE TP SCH ×2 (09:21→20:57)
[2021-03-03] MEDS: METOPROLOL TARTRATE 25 MG TABLET GT SCH ×2 (09:21→21:16)
[2021-03-03] MEDS: AMANTADINE HCL 50 MG/5 ML GT SCH ×2 (09:21→20:56)
[2021-03-03] MEDS: COD LIVER OIL/ZINC OXIDE OINT 113 GM TUBE TOP SCH ×2 (09:21→20:57)
[2021-03-03] MEDS: NYSTATIN CREAM 30 GM TUBE TP SCH ×2 (09:21→20:57)
[2021-03-03] MEDS: TRIAMCINOLONE ACET 0.1% CREAM 15 GM TUBE TP SCH ×2 (09:21→20:57)
[2021-03-03] MEDS: FAMOTIDINE 20 MG TABLET GT SCH ×2 (09:21→20:55)
[2021-03-03] MEDS: VITAMINS A AND D OINT TP SCH ×2 (09:21→20:57)
[2021-03-03] MEDS: HEPARIN SODIUM,PORCINE 5,000 UNITS/ML VIAL SQ SCH ×2 (09:23→21:16)
[2021-03-03] MEDS: HYDROGEN PEROXIDE 3% 118 ML BOTTLE TP SCH ×2 (09:23→21:19)
[2021-03-03] MEDS: VANCOMYCIN IV 1,250 MG in IV DEXTROSE 5% 250 ML IV SCH (14:14)
[2021-03-03 20:00] VITALS: BP 155/83
[2021-03-03] MEDS: MINERAL OIL/PETROLAT OPHT OINT 3.5 GM TUBE EACHEYE SCH (20:53)
[2021-03-03] MEDS: ATORVASTATIN 40 MG TABLET GT SCH (20:55)
[2021-03-03] MEDS: THIAMINE HCL 100 MG TABLET GT SCH (20:56)
[2021-03-03] MEDS: ASCORBIC ACID 500 MG TABLET GT SCH (20:56)
[2021-03-03] MEDS: hydrALAZINE HCL 25 MG TABLET GT SCH (21:15)
[2021-03-03 22:00] VITALS: BP 112/65
[2021-03-03] MEDS: levoFLOXacin 750 MG TABLET GT SCH (23:00)
[2021-03-04] VITALS (7 sets, daily range): BP systolic 115–164; BP diastolic 65–96
[2021-03-04] MEDS: BLOOD SUGAR DIAGNOSTIC 1 EACH STRIP VI SCH ×4 (00:22→17:13)
[2021-03-04] MEDS: INSULIN REGULAR, HUMAN 300 UNIT/3 ML VIAL SQ PRN ×4 (00:23→17:14)
[2021-03-04] MEDS: LEVALBUTEROL HCL 1.25 MG/0.5 ML NEB NEB SCH ×4 (01:24→18:50)
[2021-03-04] MEDS: IPRATROPIUM BROMIDE 0.5 MG/2.5 ML NEBU NEB SCH ×4 (01:24→18:50)
[2021-03-04] MEDS: VANCOMYCIN IV 1,250 MG in IV DEXTROSE 5% 250 ML IV SCH ×2 (01:46→14:12)
--- NOTE | 2021-03-04 01:50 | NUR ---
2000-100.1,hr 133,35,100%,155/83, 2200-99.0,hr106,28,97%,112/65, 2400- 99.6,hr 105,33,98%,115/65, repositioned, made pt comfortable,slept on and off, continue on vancomycin 1250mg iv q 12hrs for mrsa of wound, carried contact isolation, pt checked frequently.
[2021-03-04] MEDS: HYDROCODONE/APAP 5-325MG TABLET GT PRN ×2 (03:00→09:00)
[2021-03-04] MEDS: ARGININE/GLUTAMINE/CALCIUM BMB 1 EACH POWD.PACK GT SCH ×2 (06:08→17:13)
[2021-03-04 06:24] LABS: CARBON DIOXIDE 31 mmol/L (21-32); CHLORIDE 94 mmol/L (98-107); CREATININE 0.5 mg/dL (0.6-1.3); GLUCOSE 161 mg/dL (74-106); POTASSIUM 4.3 mmol/L (3.5-5.1); UREA NITROGEN, BLOOD 19 mg/dL (7-18)
[2021-03-04] MEDS: ACETAMINOPHEN 650 MG/20 ML UDC- SA PATIENTS-PAIN ONLY GT SCH ×2 (08:53→20:30)
[2021-03-04] MEDS: TERAZOSIN 1 MG CAPSULE GT SCH (08:54)
[2021-03-04] MEDS: levETIRAcetam 500 MG/5 ML LIQUID UDC GT SCH ×2 (08:54→21:38)
[2021-03-04] MEDS: BACLOFEN 10 MG TABLET GT SCH ×2 (08:55→21:38)
[2021-03-04] MEDS: FAMOTIDINE 20 MG TABLET GT SCH ×2 (08:55→21:38)
[2021-03-04] MEDS: PHENOBARBITAL 97.2 MG TABLET GT SCH ×2 (08:55→21:39)
[2021-03-04] MEDS: AMANTADINE HCL 50 MG/5 ML GT SCH ×2 (08:55→21:39)
[2021-03-04] MEDS: COD LIVER OIL/ZINC OXIDE OINT 113 GM TUBE TOP SCH ×2 (08:56→21:39)
[2021-03-04] MEDS: NYSTATIN CREAM 30 GM TUBE TP SCH ×2 (08:56→21:39)
[2021-03-04] MEDS: SODIUM HYPOCHLORITE 0.125% (QUARTER STRENGTH) 473 ML BOTTLE TP SCH ×2 (08:56→21:39)
[2021-03-04] MEDS: TRIAMCINOLONE ACET 0.1% CREAM 15 GM TUBE TP SCH ×2 (08:56→21:39)
[2021-03-04] MEDS: HEPARIN SODIUM,PORCINE 5,000 UNITS/ML VIAL SQ SCH ×2 (08:56→21:00)
[2021-03-04] MEDS: VITAMINS A AND D OINT TP SCH ×2 (08:57→21:39)
[2021-03-04] MEDS: METOPROLOL TARTRATE 25 MG TABLET GT SCH ×2 (09:00→21:38)
--- NOTE | 2021-03-04 10:06 | NUR ---
SEEN BY DR. WEBSTER AND WITH NNO.
[2021-03-04] MEDS: HYDROGEN PEROXIDE 3% 118 ML BOTTLE TP SCH ×2 (10:10→21:23)
[2021-03-04] MEDS: GLUCERNA 1.2 1000ML LIQUID GT PRN (14:43)
[2021-03-04] MEDS: MINERAL OIL/PETROLAT OPHT OINT 3.5 GM TUBE EACHEYE SCH (21:37)
[2021-03-04] MEDS: ATORVASTATIN 40 MG TABLET GT SCH (21:38)
[2021-03-04] MEDS: hydrALAZINE HCL 25 MG TABLET GT SCH (21:38)
[2021-03-04] MEDS: THIAMINE HCL 100 MG TABLET GT SCH (21:39)
[2021-03-04] MEDS: ASCORBIC ACID 500 MG TABLET GT SCH (21:39)
[2021-03-04] MEDS: levoFLOXacin 750 MG TABLET GT SCH (23:00)
[2021-03-05] VITALS: BP_SYST 140; BP_SYST 142; BP_DIAS 84; BP_DIAS 85
[2021-03-05] MEDS: BLOOD SUGAR DIAGNOSTIC 1 EACH STRIP VI SCH ×4 (00:17→18:17)
[2021-03-05] MEDS: INSULIN REGULAR, HUMAN 300 UNIT/3 ML VIAL SQ PRN ×4 (00:33→18:23)
[2021-03-05] MEDS: IPRATROPIUM BROMIDE 0.5 MG/2.5 ML NEBU NEB SCH ×4 (01:13→20:00)
[2021-03-05] MEDS: LEVALBUTEROL HCL 1.25 MG/0.5 ML NEB NEB SCH ×4 (01:13→20:00)
[2021-03-05] MEDS: VANCOMYCIN IV 1,250 MG in IV DEXTROSE 5% 250 ML IV SCH (01:44)
--- NOTE | 2021-03-05 02:00 | NUR ---
vancomycin trough-15.5, continue vancomycin 1250mg iv for mrsa @ wound, no adverse reaction noted, 2000-99.2,hr130, 2200-100.1,hr131,2400-99.4,hr 94,28,142/84,98%,thomas catheter patent, draining yellow urine.
[2021-03-05] MEDS: ARGININE/GLUTAMINE/CALCIUM BMB 1 EACH POWD.PACK GT SCH ×2 (05:41→18:17)
[2021-03-05 06:00] VITALS: BP_SYST 141; BP_SYST 146; BP_DIAS 80; BP_DIAS 82
[2021-03-05] MEDS: GLUCERNA 1.2 1000ML LIQUID GT PRN ×2 (07:05→18:21)
[2021-03-05 07:07] LABS: CARBON DIOXIDE 30 mmol/L (21-32); CHLORIDE 94 mmol/L (98-107); CREATININE 0.5 mg/dL (0.6-1.3); GLUCOSE 175 mg/dL (74-106); POTASSIUM 3.8 mmol/L (3.5-5.1); UREA NITROGEN, BLOOD 17 mg/dL (7-18)
[2021-03-05 07:48] VITALS: BP 131/81
[2021-03-05] MEDS: ACETAMINOPHEN 650 MG/20 ML UDC- SA PATIENTS-PAIN ONLY GT SCH ×2 (09:30→10:30)
[2021-03-05] MEDS: METOPROLOL TARTRATE 25 MG TABLET GT SCH ×2 (09:31→21:27)
[2021-03-05] MEDS: TERAZOSIN 1 MG CAPSULE GT SCH (09:31)
[2021-03-05] MEDS: BACLOFEN 10 MG TABLET GT SCH ×2 (09:31→21:27)
[2021-03-05] MEDS: FAMOTIDINE 20 MG TABLET GT SCH ×2 (09:32→21:27)
[2021-03-05] MEDS: PHENOBARBITAL 97.2 MG TABLET GT SCH ×2 (09:32→21:28)
[2021-03-05] MEDS: AMANTADINE HCL 50 MG/5 ML GT SCH ×2 (09:33→21:28)
[2021-03-05] MEDS: COD LIVER OIL/ZINC OXIDE OINT 113 GM TUBE TOP SCH ×2 (09:33→21:28)
[2021-03-05] MEDS: VITAMINS A AND D OINT TP SCH ×2 (09:36→21:28)
[2021-03-05] MEDS: TRIAMCINOLONE ACET 0.1% CREAM 15 GM TUBE TP SCH (09:36)
[2021-03-05] MEDS: SODIUM HYPOCHLORITE 0.125% (QUARTER STRENGTH) 473 ML BOTTLE TP SCH (09:36)
[2021-03-05] MEDS: NYSTATIN CREAM 30 GM TUBE TP SCH (09:36)
[2021-03-05] MEDS: HYDROGEN PEROXIDE 3% 118 ML BOTTLE TP SCH ×2 (09:36→21:25)
[2021-03-05] MEDS: levETIRAcetam 500 MG/5 ML LIQUID UDC GT SCH ×2 (09:42→21:27)
[2021-03-05] MEDS: HEPARIN SODIUM,PORCINE 5,000 UNITS/ML VIAL SQ SCH ×2 (09:46→21:00)
--- NOTE | 2021-03-05 11:54 | NUR ---
THIEN IRAHETA(I.D) CALLED BACK AND WITH NEW ORDER FOR VANCOMYCIN I.V FOR ATOTAL OF 14 DAYS AND ORDER CARRIED OUT.
--- NOTE | 2021-03-05 18:30 | NUR ---
THIEN IRAHETA (I.D) WAS CALLED AND MESSAGE LEFT RE: TEMP. 100.7F.AXILLAR ENDORSED TO NOC SHIFT TO MONITOR AND F/U.
--- NOTE | 2021-03-05 18:30 | NUR ---
Patient in bed warm to touch, Temp is 100.7 PRN tylenol given and cooling measures provided. Charge nurse made aware. Kept skin clean and dry. Turning and repositioning rendered.
[2021-03-05] MEDS: ACETAMINOPHEN 650 MG/20 ML UDC- SA PATIENTS-FEVER ONLY GT PRN (18:40)
--- NOTE | 2021-03-05 20:00 | NUR ---
T:is 99.9, cooling measures administered, fluids given as ordered, gt feeding tolerating well, no vomiting noted, HOB elevated, on aspiration and seizure precaution. Remains on Levaquin via gt for Cellulitis, no adverse reactions noted. with ongoing treatment to sacral wound as ordered, turned and repositioned, kept clean and comfortable.
[2021-03-05 20:22] VITALS: BP 140/75
[2021-03-05] MEDS: HYDROCODONE/APAP 5-325MG TABLET GT PRN (21:00)
[2021-03-05] MEDS: MINERAL OIL/PETROLAT OPHT OINT 3.5 GM TUBE EACHEYE SCH (21:27)
[2021-03-05] MEDS: hydrALAZINE HCL 25 MG TABLET GT SCH (21:27)
[2021-03-05] MEDS: ATORVASTATIN 40 MG TABLET GT SCH (21:27)
[2021-03-05] MEDS: THIAMINE HCL 100 MG TABLET GT SCH (21:28)
[2021-03-05] MEDS: ASCORBIC ACID 500 MG TABLET GT SCH (21:28)
[2021-03-05 22:00] VITALS: BP 124/75
--- NOTE | 2021-03-05 22:00 | NUR ---
T: 98.5 Afebrile, no signs of any distress noted, turned and repositioned, kept clean and comfortable.
[2021-03-05] MEDS: levoFLOXacin 750 MG TABLET GT SCH (22:30)
[2021-03-06] MEDS: BLOOD SUGAR DIAGNOSTIC 1 EACH STRIP VI SCH ×4 (00:12→18:03)
[2021-03-06] MEDS: INSULIN REGULAR, HUMAN 300 UNIT/3 ML VIAL SQ PRN ×4 (00:14→18:04)
[2021-03-06 00:48] VITALS: BP 115/63
[2021-03-06] MEDS: IPRATROPIUM BROMIDE 0.5 MG/2.5 ML NEBU NEB SCH ×4 (01:39→19:26)
[2021-03-06] MEDS: LEVALBUTEROL HCL 1.25 MG/0.5 ML NEB NEB SCH ×4 (01:39→19:26)
[2021-03-06 03:45] VITALS: BP 121/68
[2021-03-06] MEDS: ARGININE/GLUTAMINE/CALCIUM BMB 1 EACH POWD.PACK GT SCH ×2 (05:41→18:03)
[2021-03-06 07:28] VITALS: BP 140/79
[2021-03-06] MEDS: HYDROGEN PEROXIDE 3% 118 ML BOTTLE TP SCH ×2 (08:46→21:00)
[2021-03-06] MEDS: ACETAMINOPHEN 650 MG/20 ML UDC- SA PATIENTS-PAIN ONLY GT SCH ×2 (09:07→20:40)
[2021-03-06] MEDS: levETIRAcetam 500 MG/5 ML LIQUID UDC GT SCH ×2 (09:07→20:41)
[2021-03-06] MEDS: TERAZOSIN 1 MG CAPSULE GT SCH (09:07)
[2021-03-06] MEDS: BACLOFEN 10 MG TABLET GT SCH ×2 (09:07→20:42)
[2021-03-06] MEDS: METOPROLOL TARTRATE 25 MG TABLET GT SCH ×2 (09:08→20:42)
[2021-03-06] MEDS: PHENOBARBITAL 97.2 MG TABLET GT SCH ×2 (09:09→20:42)
[2021-03-06] MEDS: VITAMINS A AND D OINT TP SCH ×2 (09:09→20:43)
[2021-03-06] MEDS: FAMOTIDINE 20 MG TABLET GT SCH ×2 (09:09→20:42)
[2021-03-06] MEDS: COD LIVER OIL/ZINC OXIDE OINT 113 GM TUBE TOP SCH ×2 (09:09→20:43)
[2021-03-06] MEDS: AMANTADINE HCL 50 MG/5 ML GT SCH ×2 (09:09→20:44)
[2021-03-06] MEDS: HEPARIN SODIUM,PORCINE 5,000 UNITS/ML VIAL SQ SCH ×2 (09:13→20:54)
--- NOTE | 2021-03-06 12:00 | NUR ---
PT. HAD COVID 19 TEST TODAY AND PT'S DTR. ONLY WANTS TO BE NOTIED WITH RESULTS.
[2021-03-06 14:45] VITALS: BP 147/75
[2021-03-06] MEDS: GLUCERNA 1.2 1000ML LIQUID GT PRN (18:03)
[2021-03-06 18:38] VITALS: BP 144/79
[2021-03-06] MEDS: MINERAL OIL/PETROLAT OPHT OINT 3.5 GM TUBE EACHEYE SCH (20:40)
[2021-03-06] MEDS: hydrALAZINE HCL 25 MG TABLET GT SCH (20:41)
[2021-03-06] MEDS: ATORVASTATIN 40 MG TABLET GT SCH (20:42)
[2021-03-06] MEDS: THIAMINE HCL 100 MG TABLET GT SCH (20:43)
[2021-03-06] MEDS: ASCORBIC ACID 500 MG TABLET GT SCH (20:43)
[2021-03-06 20:56] VITALS: BP 129/80
[2021-03-06] MEDS: levoFLOXacin 750 MG TABLET GT SCH (23:33)
[2021-03-07] MEDS: BLOOD SUGAR DIAGNOSTIC 1 EACH STRIP VI SCH ×5 (00:28→23:34)
[2021-03-07] MEDS: INSULIN REGULAR, HUMAN 300 UNIT/3 ML VIAL SQ PRN ×3 (01:00→23:35)
--- NOTE | 2021-03-07 02:15 | NUR ---
Renewed treatment to sacral wound X 30 days.
[2021-03-07] MEDS: IPRATROPIUM BROMIDE 0.5 MG/2.5 ML NEBU NEB SCH ×4 (02:21→19:06)
[2021-03-07] MEDS: LEVALBUTEROL HCL 1.25 MG/0.5 ML NEB NEB SCH ×4 (02:21→19:06)
[2021-03-07] MEDS ORDERED: SODIUM HYPOCHLORITE 0.125% (QUARTER STRENGTH) 473 ML BOTTLE TP PRN (02:30)
[2021-03-07] MEDS ORDERED: NYSTATIN CREAM 30 GM TUBE TOP PRN (02:30)
[2021-03-07] MEDS ORDERED: TRIAMCINOLONE ACET 0.1% CREAM 15 GM TUBE TOP PRN (02:30)
[2021-03-07] MEDS: NYSTATIN CREAM 30 GM TUBE TOP SCH ×3 (02:49→21:39)
[2021-03-07] MEDS: TRIAMCINOLONE ACET 0.1% CREAM 15 GM TUBE TOP SCH ×3 (02:49→21:39)
[2021-03-07] MEDS: SODIUM HYPOCHLORITE 0.125% (QUARTER STRENGTH) 473 ML BOTTLE TP SCH ×3 (02:49→21:39)
[2021-03-07] MEDS: ARGININE/GLUTAMINE/CALCIUM BMB 1 EACH POWD.PACK GT SCH ×2 (06:28→17:07)
[2021-03-07 07:27] VITALS: BP 161/100
[2021-03-07] MEDS: ACETAMINOPHEN 650 MG/20 ML UDC- SA PATIENTS-PAIN ONLY GT SCH ×2 (09:23→20:42)
[2021-03-07] MEDS: BACLOFEN 10 MG TABLET GT SCH ×2 (09:24→20:42)
[2021-03-07] MEDS: levETIRAcetam 500 MG/5 ML LIQUID UDC GT SCH ×2 (09:24→20:42)
[2021-03-07] MEDS: FAMOTIDINE 20 MG TABLET GT SCH ×2 (09:24→20:42)
[2021-03-07] MEDS: TERAZOSIN 1 MG CAPSULE GT SCH (09:24)
[2021-03-07] MEDS: METOPROLOL TARTRATE 25 MG TABLET GT SCH ×2 (09:24→20:47)
[2021-03-07] MEDS: PHENOBARBITAL 97.2 MG TABLET GT SCH ×2 (09:24→20:42)
[2021-03-07] MEDS: AMANTADINE HCL 50 MG/5 ML GT SCH ×2 (09:24→20:42)
[2021-03-07] MEDS: VITAMINS A AND D OINT TP SCH ×2 (09:25→20:47)
[2021-03-07] MEDS: COD LIVER OIL/ZINC OXIDE OINT 113 GM TUBE TOP SCH ×2 (09:25→20:42)
[2021-03-07] MEDS: HEPARIN SODIUM,PORCINE 5,000 UNITS/ML VIAL SQ SCH ×2 (09:26→21:27)
[2021-03-07] MEDS: HYDROGEN PEROXIDE 3% 118 ML BOTTLE TP SCH ×2 (09:40→19:06)
[2021-03-07] MEDS: HYDROCODONE/APAP 5-325MG TABLET GT PRN ×2 (12:30→23:00)
[2021-03-07] MEDS: GLUCERNA 1.2 1000ML LIQUID GT PRN (17:08)
[2021-03-07 18:25] VITALS: BP 145/79
[2021-03-07] MEDS: THIAMINE HCL 100 MG TABLET GT SCH (20:42)
[2021-03-07] MEDS: ASCORBIC ACID 500 MG TABLET GT SCH (20:42)
[2021-03-07] MEDS: ATORVASTATIN 40 MG TABLET GT SCH (20:42)
[2021-03-07] MEDS: hydrALAZINE HCL 25 MG TABLET GT SCH (20:47)
[2021-03-07] MEDS: MINERAL OIL/PETROLAT OPHT OINT 3.5 GM TUBE EACHEYE SCH (20:48)
[2021-03-07 20:54] VITALS: BP 140/80
[2021-03-07] MEDS: levoFLOXacin 750 MG TABLET GT SCH (23:25)
[2021-03-08] MEDS: IPRATROPIUM BROMIDE 0.5 MG/2.5 ML NEBU NEB SCH ×4 (00:35→19:20)
[2021-03-08] MEDS: LEVALBUTEROL HCL 1.25 MG/0.5 ML NEB NEB SCH ×4 (00:35→19:20)
[2021-03-08 02:45] VITALS: BP 122/79
[2021-03-08] MEDS: GLUCERNA 1.2 1000ML LIQUID GT PRN (05:00)
[2021-03-08] MEDS: BLOOD SUGAR DIAGNOSTIC 1 EACH STRIP VI SCH ×3 (05:01→17:24)
[2021-03-08] MEDS: ARGININE/GLUTAMINE/CALCIUM BMB 1 EACH POWD.PACK GT SCH ×2 (05:57→17:24)
[2021-03-08] MEDS: INSULIN REGULAR, HUMAN 300 UNIT/3 ML VIAL SQ PRN ×3 (05:59→17:25)
[2021-03-08] MEDS: HYDROCODONE/APAP 5-325MG TABLET GT PRN (06:36)
[2021-03-08 07:32] VITALS: BP 129/69
[2021-03-08] MEDS: HYDROGEN PEROXIDE 3% 118 ML BOTTLE TP SCH ×2 (09:00→21:00)
[2021-03-08] MEDS: ACETAMINOPHEN 650 MG/20 ML UDC- SA PATIENTS-PAIN ONLY GT SCH ×2 (09:11→20:30)
[2021-03-08] MEDS: FAMOTIDINE 20 MG TABLET GT SCH ×2 (09:12→21:00)
[2021-03-08] MEDS: levETIRAcetam 500 MG/5 ML LIQUID UDC GT SCH ×2 (09:12→21:00)
[2021-03-08] MEDS: METOPROLOL TARTRATE 25 MG TABLET GT SCH ×2 (09:12→21:00)
[2021-03-08] MEDS: COD LIVER OIL/ZINC OXIDE OINT 113 GM TUBE TOP SCH ×2 (09:12→21:00)
[2021-03-08] MEDS: AMANTADINE HCL 50 MG/5 ML GT SCH ×2 (09:12→21:00)
[2021-03-08] MEDS: PHENOBARBITAL 97.2 MG TABLET GT SCH ×2 (09:12→21:00)
[2021-03-08] MEDS: BACLOFEN 10 MG TABLET GT SCH ×2 (09:12→21:00)
[2021-03-08] MEDS: TERAZOSIN 1 MG CAPSULE GT SCH (09:12)
[2021-03-08] MEDS: SODIUM HYPOCHLORITE 0.125% (QUARTER STRENGTH) 473 ML BOTTLE TP SCH ×2 (09:13→21:00)
[2021-03-08] MEDS: TRIAMCINOLONE ACET 0.1% CREAM 15 GM TUBE TOP SCH ×2 (09:13→21:00)
[2021-03-08] MEDS: NYSTATIN CREAM 30 GM TUBE TOP SCH ×2 (09:13→21:00)
[2021-03-08] MEDS: VITAMINS A AND D OINT TP SCH ×2 (09:14→21:00)
[2021-03-08] MEDS: HEPARIN SODIUM,PORCINE 5,000 UNITS/ML VIAL SQ SCH ×2 (09:15→21:00)
--- NOTE | 2021-03-08 12:02 | NUR ---
PT.WAS NEGATIVE FOR COVID 19 TEST AND PT'S DTR. SARBJIT WAS CALLED AND UNABLE TO LEAVE A MESSAGE D/T VOICEMAIL IS FULL.
[2021-03-08 13:56] VITALS: BP 136/70
[2021-03-08 18:07] VITALS: BP 128/64
[2021-03-08 20:55] VITALS: BP 127/72
[2021-03-08] MEDS: MINERAL OIL/PETROLAT OPHT OINT 3.5 GM TUBE EACHEYE SCH (21:00)
[2021-03-08] MEDS: ATORVASTATIN 40 MG TABLET GT SCH (21:00)
[2021-03-08] MEDS: hydrALAZINE HCL 25 MG TABLET GT SCH (21:00)
[2021-03-08] MEDS: THIAMINE HCL 100 MG TABLET GT SCH (21:00)
[2021-03-08] MEDS: ASCORBIC ACID 500 MG TABLET GT SCH (21:00)
--- NOTE | 2021-03-08 22:05 | NUR ---
Afebrile, today is the last dose of Levaquin via GT for cellulitis, no adverse reactions noted, with ongoing treatment to sacral wound. On contact isolation precaution for MRSA of the sacral wound, turned and repositioned patient, kept patient comfortable, will continue monitor.
[2021-03-08] MEDS: levoFLOXacin 750 MG TABLET GT SCH (22:35)
[2021-03-09] MEDS: BLOOD SUGAR DIAGNOSTIC 1 EACH STRIP VI SCH ×5 (00:41→17:39)
[2021-03-09] MEDS: INSULIN REGULAR, HUMAN 300 UNIT/3 ML VIAL SQ PRN ×4 (00:54→17:40)
[2021-03-09] MEDS: GLUCERNA 1.2 1000ML LIQUID GT PRN ×2 (01:31→01:34)
[2021-03-09] MEDS: LEVALBUTEROL HCL 1.25 MG/0.5 ML NEB NEB SCH ×4 (01:45→19:02)
[2021-03-09] MEDS: IPRATROPIUM BROMIDE 0.5 MG/2.5 ML NEBU NEB SCH ×4 (01:45→19:02)
[2021-03-09] MEDS: ARGININE/GLUTAMINE/CALCIUM BMB 1 EACH POWD.PACK GT SCH ×2 (05:42→17:39)
[2021-03-09 06:00] VITALS: BP 138/86
[2021-03-09 07:52] VITALS: BP 130/70
[2021-03-09] MEDS: ACETAMINOPHEN 650 MG/20 ML UDC- SA PATIENTS-PAIN ONLY GT SCH ×2 (08:39→20:30)
[2021-03-09] MEDS: levETIRAcetam 500 MG/5 ML LIQUID UDC GT SCH ×2 (08:39→21:54)
[2021-03-09] MEDS: TERAZOSIN 1 MG CAPSULE GT SCH (08:39)
[2021-03-09] MEDS: FAMOTIDINE 20 MG TABLET GT SCH ×2 (08:41→21:55)
[2021-03-09] MEDS: BACLOFEN 10 MG TABLET GT SCH ×2 (08:41→21:54)
[2021-03-09] MEDS: METOPROLOL TARTRATE 25 MG TABLET GT SCH ×2 (08:41→21:55)
[2021-03-09] MEDS: AMANTADINE HCL 50 MG/5 ML GT SCH ×2 (08:42→21:56)
[2021-03-09] MEDS: HEPARIN SODIUM,PORCINE 5,000 UNITS/ML VIAL SQ SCH ×2 (08:45→22:00)
[2021-03-09] MEDS: PHENOBARBITAL 97.2 MG TABLET GT SCH ×2 (08:45→21:00)
[2021-03-09] MEDS: HYDROGEN PEROXIDE 3% 118 ML BOTTLE TP SCH ×2 (09:00→19:02)
[2021-03-09] MEDS: SODIUM HYPOCHLORITE 0.125% (QUARTER STRENGTH) 473 ML BOTTLE TP SCH ×2 (10:00→21:57)
[2021-03-09] MEDS: TRIAMCINOLONE ACET 0.1% CREAM 15 GM TUBE TOP SCH (10:00)
[2021-03-09] MEDS: COD LIVER OIL/ZINC OXIDE OINT 113 GM TUBE TOP SCH ×2 (10:00→21:57)
[2021-03-09] MEDS: VITAMINS A AND D OINT TP SCH ×2 (10:00→21:58)
[2021-03-09] MEDS: NYSTATIN CREAM 30 GM TUBE TOP SCH (10:00)
[2021-03-09] MEDS: HYDROCODONE/APAP 5-325MG TABLET GT PRN ×2 (11:24→22:04)
[2021-03-09 12:00] VITALS: BP 126/70
--- NOTE | 2021-03-09 14:56 | NUR ---
Seen and examined By Temitope AJ sacral debribdement done,new tx ordered and carried out.
[2021-03-09] MEDS ORDERED: SODIUM HYPOCHLORITE 0.125% (QUARTER STRENGTH) 473 ML BOTTLE TP PRN (17:00)
[2021-03-09] MEDS ORDERED: NYSTATIN CREAM 30 GM TUBE TP PRN (17:00)
[2021-03-09 17:54] VITALS: BP 138/74
[2021-03-09 20:42] VITALS: BP 156/78
[2021-03-09] MEDS: hydrALAZINE HCL 25 MG TABLET GT SCH (21:53)
[2021-03-09] MEDS: MINERAL OIL/PETROLAT OPHT OINT 3.5 GM TUBE EACHEYE SCH (21:53)
[2021-03-09] MEDS: ATORVASTATIN 40 MG TABLET GT SCH (21:55)
[2021-03-09] MEDS: THIAMINE HCL 100 MG TABLET GT SCH (21:57)
[2021-03-09] MEDS: ASCORBIC ACID 500 MG TABLET GT SCH (21:57)
[2021-03-09] MEDS: NYSTATIN CREAM 30 GM TUBE TP SCH (21:58)
[2021-03-09] MEDS: LORAZEPAM 1 MG TABLET GT PRN (22:56)
[2021-03-10] VITALS: BP 146/86
[2021-03-10] MEDS: BLOOD SUGAR DIAGNOSTIC 1 EACH STRIP VI SCH ×4 (00:34→17:32)
[2021-03-10] MEDS: IPRATROPIUM BROMIDE 0.5 MG/2.5 ML NEBU NEB SCH ×4 (00:36→19:26)
[2021-03-10] MEDS: LEVALBUTEROL HCL 1.25 MG/0.5 ML NEB NEB SCH ×4 (00:36→19:26)
[2021-03-10] MEDS: INSULIN REGULAR, HUMAN 300 UNIT/3 ML VIAL SQ PRN ×4 (00:38→17:34)
[2021-03-10] MEDS: GLUCERNA 1.2 1000ML LIQUID GT PRN ×2 (00:58→19:00)
[2021-03-10] MEDS: ARGININE/GLUTAMINE/CALCIUM BMB 1 EACH POWD.PACK GT SCH ×2 (05:15→17:32)
[2021-03-10 07:24] VITALS: BP 142/77
[2021-03-10] MEDS: HYDROGEN PEROXIDE 3% 118 ML BOTTLE TP SCH ×2 (09:00→21:28)
[2021-03-10] MEDS: HEPARIN SODIUM,PORCINE 5,000 UNITS/ML VIAL SQ SCH ×2 (09:11→21:00)
[2021-03-10] MEDS: COD LIVER OIL/ZINC OXIDE OINT 113 GM TUBE TOP SCH ×2 (09:11→21:52)
[2021-03-10] MEDS: levETIRAcetam 500 MG/5 ML LIQUID UDC GT SCH ×2 (09:27→21:51)
[2021-03-10] MEDS: ACETAMINOPHEN 650 MG/20 ML UDC- SA PATIENTS-PAIN ONLY GT SCH ×2 (09:27→20:30)
[2021-03-10] MEDS: TERAZOSIN 1 MG CAPSULE GT SCH (09:27)
[2021-03-10] MEDS: BACLOFEN 10 MG TABLET GT SCH ×2 (09:27→21:51)
[2021-03-10] MEDS: METOPROLOL TARTRATE 25 MG TABLET GT SCH ×2 (09:28→21:52)
[2021-03-10] MEDS: PHENOBARBITAL 97.2 MG TABLET GT SCH ×2 (09:28→21:52)
[2021-03-10] MEDS: AMANTADINE HCL 50 MG/5 ML GT SCH ×2 (09:28→21:52)
[2021-03-10] MEDS: FAMOTIDINE 20 MG TABLET GT SCH ×2 (09:28→21:52)
[2021-03-10] MEDS: SODIUM HYPOCHLORITE 0.125% (QUARTER STRENGTH) 473 ML BOTTLE TP SCH ×2 (09:28→21:52)
[2021-03-10] MEDS: VITAMINS A AND D OINT TP SCH ×2 (09:29→21:52)
[2021-03-10] MEDS: NYSTATIN CREAM 30 GM TUBE TP SCH ×2 (09:29→21:52)
--- NOTE | 2021-03-10 11:01 | NUR ---
This TERRITORY BUSINESS MANAGER notified patient's daughter Janis, by email, that the next IDT meeting for the patient is scheduled for 03/15 at 11am. This TERRITORY BUSINESS MANAGER asked Janis to let this TERRITORY BUSINESS MANAGER know if she would be available to participate in the meeting by speaker phone.
[2021-03-10 12:12] VITALS: BP 135/76
[2021-03-10 20:30] VITALS: BP 125/58
[2021-03-10] MEDS: hydrALAZINE HCL 25 MG TABLET GT SCH (21:51)
[2021-03-10] MEDS: MINERAL OIL/PETROLAT OPHT OINT 3.5 GM TUBE EACHEYE SCH (21:51)
[2021-03-10] MEDS: ATORVASTATIN 40 MG TABLET GT SCH (21:51)
[2021-03-10] MEDS: ASCORBIC ACID 500 MG TABLET GT SCH (21:52)
[2021-03-10] MEDS: THIAMINE HCL 100 MG TABLET GT SCH (21:52)
[2021-03-11] VITALS: BP 144/83
[2021-03-11] MEDS: BLOOD SUGAR DIAGNOSTIC 1 EACH STRIP VI SCH ×4 (00:05→17:26)
[2021-03-11] MEDS: INSULIN REGULAR, HUMAN 300 UNIT/3 ML VIAL SQ PRN ×3 (00:08→12:58)
[2021-03-11] MEDS: IPRATROPIUM BROMIDE 0.5 MG/2.5 ML NEBU NEB SCH ×4 (01:10→19:30)
[2021-03-11] MEDS: LEVALBUTEROL HCL 1.25 MG/0.5 ML NEB NEB SCH ×4 (01:10→19:30)
[2021-03-11] MEDS: ARGININE/GLUTAMINE/CALCIUM BMB 1 EACH POWD.PACK GT SCH ×2 (05:26→17:12)
[2021-03-11 06:28] VITALS: BP 149/79
[2021-03-11 07:41] VITALS: BP 136/77
[2021-03-11] MEDS: HYDROGEN PEROXIDE 3% 118 ML BOTTLE TP SCH ×2 (08:04→21:25)
[2021-03-11] MEDS: ACETAMINOPHEN 650 MG/20 ML UDC- SA PATIENTS-PAIN ONLY GT SCH ×2 (09:09→21:23)
[2021-03-11] MEDS: levETIRAcetam 500 MG/5 ML LIQUID UDC GT SCH ×2 (09:10→21:24)
[2021-03-11] MEDS: TERAZOSIN 1 MG CAPSULE GT SCH (09:10)
[2021-03-11] MEDS: BACLOFEN 10 MG TABLET GT SCH ×2 (09:11→21:24)
[2021-03-11] MEDS: PHENOBARBITAL 97.2 MG TABLET GT SCH ×2 (09:12→21:24)
[2021-03-11] MEDS: FAMOTIDINE 20 MG TABLET GT SCH ×2 (09:12→21:24)
[2021-03-11] MEDS: METOPROLOL TARTRATE 25 MG TABLET GT SCH ×2 (09:12→21:24)
[2021-03-11] MEDS: AMANTADINE HCL 50 MG/5 ML GT SCH ×2 (09:12→21:25)
[2021-03-11] MEDS: HEPARIN SODIUM,PORCINE 5,000 UNITS/ML VIAL SQ SCH ×2 (09:14→21:55)
[2021-03-11] MEDS: VITAMINS A AND D OINT TP SCH ×2 (09:14→21:27)
[2021-03-11] MEDS: SODIUM HYPOCHLORITE 0.125% (QUARTER STRENGTH) 473 ML BOTTLE TP SCH ×2 (09:14→21:27)
[2021-03-11] MEDS: COD LIVER OIL/ZINC OXIDE OINT 113 GM TUBE TOP SCH ×2 (09:14→21:27)
[2021-03-11] MEDS: NYSTATIN CREAM 30 GM TUBE TP SCH ×2 (09:14→21:27)
[2021-03-11] MEDS: LORAZEPAM 1 MG TABLET GT PRN (09:17)
[2021-03-11 12:33] VITALS: BP 132/72
[2021-03-11] MEDS: HYDROCODONE/APAP 5-325MG TABLET GT PRN (12:59)
[2021-03-11] MEDS: GLUCERNA 1.2 1000ML LIQUID GT PRN (13:05)
[2021-03-11 20:29] VITALS: BP 148/84
[2021-03-11] MEDS: MINERAL OIL/PETROLAT OPHT OINT 3.5 GM TUBE EACHEYE SCH (21:23)
[2021-03-11] MEDS: hydrALAZINE HCL 25 MG TABLET GT SCH (21:23)
[2021-03-11] MEDS: ATORVASTATIN 40 MG TABLET GT SCH (21:24)
[2021-03-11] MEDS: ASCORBIC ACID 500 MG TABLET GT SCH (21:25)
[2021-03-11] MEDS: THIAMINE HCL 100 MG TABLET GT SCH (21:25)
[2021-03-12] VITALS (7 sets, daily range): BP systolic 113–144; BP diastolic 62–81
[2021-03-12] MEDS: BLOOD SUGAR DIAGNOSTIC 1 EACH STRIP VI SCH ×5 (00:40→23:11)
[2021-03-12] MEDS: INSULIN REGULAR, HUMAN 300 UNIT/3 ML VIAL SQ PRN ×4 (00:46→23:11)
[2021-03-12] MEDS: LEVALBUTEROL HCL 1.25 MG/0.5 ML NEB NEB SCH ×4 (01:38→20:55)
[2021-03-12] MEDS: IPRATROPIUM BROMIDE 0.5 MG/2.5 ML NEBU NEB SCH ×4 (01:38→20:55)
[2021-03-12] MEDS: ARGININE/GLUTAMINE/CALCIUM BMB 1 EACH POWD.PACK GT SCH ×2 (05:19→17:58)
[2021-03-12] MEDS: GLUCERNA 1.2 1000ML LIQUID GT PRN ×2 (05:20→23:02)
[2021-03-12] MEDS: HYDROCODONE/APAP 5-325MG TABLET GT PRN ×2 (07:00→16:24)
[2021-03-12] MEDS: ACETAMINOPHEN 650 MG/20 ML UDC- SA PATIENTS-PAIN ONLY GT SCH ×2 (08:00→20:57)
[2021-03-12] MEDS: HYDROGEN PEROXIDE 3% 118 ML BOTTLE TP SCH ×2 (09:00→21:00)
[2021-03-12] MEDS: levETIRAcetam 500 MG/5 ML LIQUID UDC GT SCH ×2 (09:08→20:58)
[2021-03-12] MEDS: TERAZOSIN 1 MG CAPSULE GT SCH (09:08)
[2021-03-12] MEDS: BACLOFEN 10 MG TABLET GT SCH ×2 (09:09→20:58)
[2021-03-12] MEDS: FAMOTIDINE 20 MG TABLET GT SCH ×2 (09:10→20:59)
[2021-03-12] MEDS: AMANTADINE HCL 50 MG/5 ML GT SCH ×2 (09:10→20:59)
[2021-03-12] MEDS: METOPROLOL TARTRATE 25 MG TABLET GT SCH ×2 (09:10→20:59)
[2021-03-12] MEDS: PHENOBARBITAL 97.2 MG TABLET GT SCH ×2 (09:10→20:59)
[2021-03-12] MEDS: COD LIVER OIL/ZINC OXIDE OINT 113 GM TUBE TOP SCH ×2 (09:12→20:59)
[2021-03-12] MEDS: SODIUM HYPOCHLORITE 0.125% (QUARTER STRENGTH) 473 ML BOTTLE TP SCH ×2 (09:12→20:59)
[2021-03-12] MEDS: HEPARIN SODIUM,PORCINE 5,000 UNITS/ML VIAL SQ SCH ×2 (09:12→20:53)
[2021-03-12] MEDS: NYSTATIN CREAM 30 GM TUBE TP SCH ×2 (09:13→20:59)
[2021-03-12] MEDS: VITAMINS A AND D OINT TP SCH ×2 (09:13→20:59)
[2021-03-12] MEDS: LORAZEPAM 1 MG TABLET GT PRN (12:51)
[2021-03-12] MEDS: MINERAL OIL/PETROLAT OPHT OINT 3.5 GM TUBE EACHEYE SCH (20:57)
[2021-03-12] MEDS: ATORVASTATIN 40 MG TABLET GT SCH (20:58)
[2021-03-12] MEDS: hydrALAZINE HCL 25 MG TABLET GT SCH (20:58)
[2021-03-12] MEDS: THIAMINE HCL 100 MG TABLET GT SCH (20:59)
[2021-03-12] MEDS: ASCORBIC ACID 500 MG TABLET GT SCH (20:59)
[2021-03-13] MEDS: IPRATROPIUM BROMIDE 0.5 MG/2.5 ML NEBU NEB SCH ×4 (01:03→19:15)
[2021-03-13] MEDS: LEVALBUTEROL HCL 1.25 MG/0.5 ML NEB NEB SCH ×4 (01:03→19:15)
[2021-03-13] MEDS: HYDROCODONE/APAP 5-325MG TABLET GT PRN ×3 (04:55→17:33)
[2021-03-13] MEDS: ARGININE/GLUTAMINE/CALCIUM BMB 1 EACH POWD.PACK GT SCH ×2 (06:01→17:17)
[2021-03-13] MEDS: BLOOD SUGAR DIAGNOSTIC 1 EACH STRIP VI SCH ×3 (06:01→17:17)
[2021-03-13] MEDS: INSULIN REGULAR, HUMAN 300 UNIT/3 ML VIAL SQ PRN ×2 (06:01→12:29)
[2021-03-13 07:46] VITALS: BP 132/75
[2021-03-13] MEDS: ACETAMINOPHEN 650 MG/20 ML UDC- SA PATIENTS-PAIN ONLY GT SCH ×2 (08:55→21:06)
[2021-03-13] MEDS: levETIRAcetam 500 MG/5 ML LIQUID UDC GT SCH ×2 (08:56→21:07)
[2021-03-13] MEDS: TERAZOSIN 1 MG CAPSULE GT SCH (08:56)
[2021-03-13] MEDS: BACLOFEN 10 MG TABLET GT SCH ×2 (08:56→21:07)
[2021-03-13] MEDS: AMANTADINE HCL 50 MG/5 ML GT SCH ×2 (08:57→21:07)
[2021-03-13] MEDS: FAMOTIDINE 20 MG TABLET GT SCH ×2 (08:57→21:07)
[2021-03-13] MEDS: PHENOBARBITAL 97.2 MG TABLET GT SCH ×2 (08:57→21:07)
[2021-03-13] MEDS: METOPROLOL TARTRATE 25 MG TABLET GT SCH ×2 (08:57→21:07)
[2021-03-13] MEDS: NYSTATIN CREAM 30 GM TUBE TP SCH ×2 (08:59→21:00)
[2021-03-13] MEDS: HEPARIN SODIUM,PORCINE 5,000 UNITS/ML VIAL SQ SCH ×2 (08:59→20:31)
[2021-03-13] MEDS: SODIUM HYPOCHLORITE 0.125% (QUARTER STRENGTH) 473 ML BOTTLE TP SCH ×2 (08:59→21:00)
[2021-03-13] MEDS: VITAMINS A AND D OINT TP SCH ×2 (08:59→21:07)
[2021-03-13] MEDS: COD LIVER OIL/ZINC OXIDE OINT 113 GM TUBE TOP SCH ×2 (08:59→21:07)
[2021-03-13] MEDS: HYDROGEN PEROXIDE 3% 118 ML BOTTLE TP SCH ×2 (09:08→21:05)
[2021-03-13] MEDS: LORAZEPAM 1 MG TABLET GT PRN (12:00)
[2021-03-13 12:30] VITALS: BP 131/75
[2021-03-13] MEDS: GLUCERNA 1.2 1000ML LIQUID GT PRN (17:17)
[2021-03-13 18:00] VITALS: BP 139/79
--- NOTE | 2021-03-13 19:53 | NUR ---
Covid 19 test done today,Pt's daughter Kylie notified.
[2021-03-13 20:00] VITALS: BP 137/69
[2021-03-13] MEDS: MINERAL OIL/PETROLAT OPHT OINT 3.5 GM TUBE EACHEYE SCH (21:06)
[2021-03-13] MEDS: hydrALAZINE HCL 25 MG TABLET GT SCH (21:06)
[2021-03-13] MEDS: ASCORBIC ACID 500 MG TABLET GT SCH (21:07)
[2021-03-13] MEDS: ATORVASTATIN 40 MG TABLET GT SCH (21:07)
[2021-03-13] MEDS: THIAMINE HCL 100 MG TABLET GT SCH (21:07)
[2021-03-14] VITALS: BP 132/83
[2021-03-14] MEDS: LEVALBUTEROL HCL 1.25 MG/0.5 ML NEB NEB SCH ×4 (00:27→18:56)
[2021-03-14] MEDS: IPRATROPIUM BROMIDE 0.5 MG/2.5 ML NEBU NEB SCH ×4 (00:27→18:56)
[2021-03-14] MEDS: INSULIN REGULAR, HUMAN 300 UNIT/3 ML VIAL SQ PRN ×4 (01:15→18:06)
[2021-03-14 02:00] VITALS: BP 132/83
[2021-03-14] MEDS: BLOOD SUGAR DIAGNOSTIC 1 EACH STRIP VI SCH ×4 (05:31→18:03)
[2021-03-14] MEDS: ARGININE/GLUTAMINE/CALCIUM BMB 1 EACH POWD.PACK GT SCH ×2 (05:31→18:03)
[2021-03-14 06:00] VITALS: BP 140/68
[2021-03-14 07:00] VITALS: BP 140/68
[2021-03-14 07:25] VITALS: BP 134/78
[2021-03-14] MEDS: HYDROGEN PEROXIDE 3% 118 ML BOTTLE TP SCH ×2 (08:00→18:56)
[2021-03-14] MEDS: TERAZOSIN 1 MG CAPSULE GT SCH (08:41)
[2021-03-14] MEDS: BACLOFEN 10 MG TABLET GT SCH ×2 (08:41→21:17)
[2021-03-14] MEDS: ACETAMINOPHEN 650 MG/20 ML UDC- SA PATIENTS-PAIN ONLY GT SCH ×2 (08:41→20:40)
[2021-03-14] MEDS: levETIRAcetam 500 MG/5 ML LIQUID UDC GT SCH ×2 (08:41→21:17)
[2021-03-14] MEDS: FAMOTIDINE 20 MG TABLET GT SCH ×2 (08:43→21:18)
[2021-03-14] MEDS: METOPROLOL TARTRATE 25 MG TABLET GT SCH ×2 (08:43→21:18)
[2021-03-14] MEDS: PHENOBARBITAL 97.2 MG TABLET GT SCH ×2 (08:44→21:18)
[2021-03-14] MEDS: AMANTADINE HCL 50 MG/5 ML GT SCH ×2 (08:45→21:18)
[2021-03-14] MEDS: SODIUM HYPOCHLORITE 0.125% (QUARTER STRENGTH) 473 ML BOTTLE TP SCH ×2 (08:47→21:00)
[2021-03-14] MEDS: COD LIVER OIL/ZINC OXIDE OINT 113 GM TUBE TOP SCH ×2 (08:47→21:18)
[2021-03-14] MEDS: NYSTATIN CREAM 30 GM TUBE TP SCH ×2 (08:47→21:00)
[2021-03-14] MEDS: VITAMINS A AND D OINT TP SCH ×2 (08:47→21:18)
[2021-03-14] MEDS: HEPARIN SODIUM,PORCINE 5,000 UNITS/ML VIAL SQ SCH ×2 (08:47→21:00)
[2021-03-14] MEDS: GLUCERNA 1.2 1000ML LIQUID GT PRN (11:27)
[2021-03-14] MEDS: LORAZEPAM 1 MG TABLET GT PRN (17:51)
--- NOTE | 2021-03-14 18:00 | NUR ---
noted with increased spasm during shift. Patient was given Ativan as ordered.
[2021-03-14 20:40] VITALS: BP 144/77
[2021-03-14] MEDS: MINERAL OIL/PETROLAT OPHT OINT 3.5 GM TUBE EACHEYE SCH (21:16)
[2021-03-14] MEDS: ATORVASTATIN 40 MG TABLET GT SCH (21:17)
[2021-03-14] MEDS: hydrALAZINE HCL 25 MG TABLET GT SCH (21:17)
[2021-03-14] MEDS: ASCORBIC ACID 500 MG TABLET GT SCH (21:18)
[2021-03-14] MEDS: THIAMINE HCL 100 MG TABLET GT SCH (21:18)
[2021-03-15] VITALS: BP 142/78
[2021-03-15] MEDS: HYDROCODONE/APAP 5-325MG TABLET GT PRN
[2021-03-15] MEDS: IPRATROPIUM BROMIDE 0.5 MG/2.5 ML NEBU NEB SCH ×4 (00:35→18:59)
[2021-03-15] MEDS: LEVALBUTEROL HCL 1.25 MG/0.5 ML NEB NEB SCH ×4 (00:35→18:59)
[2021-03-15] MEDS: BLOOD SUGAR DIAGNOSTIC 1 EACH STRIP VI SCH ×4 (00:45→17:10)
[2021-03-15] MEDS: INSULIN REGULAR, HUMAN 300 UNIT/3 ML VIAL SQ PRN ×4 (00:49→17:11)
[2021-03-15 02:26] VITALS: BP 142/78
[2021-03-15] MEDS: ARGININE/GLUTAMINE/CALCIUM BMB 1 EACH POWD.PACK GT SCH ×2 (05:45→17:13)
[2021-03-15 06:00] VITALS: BP 139/78
[2021-03-15] MEDS: GLUCERNA 1.2 1000ML LIQUID GT PRN (06:50)
[2021-03-15 07:28] VITALS: BP 138/96
[2021-03-15] MEDS: levETIRAcetam 500 MG/5 ML LIQUID UDC GT SCH ×2 (08:40→21:27)
[2021-03-15] MEDS: ACETAMINOPHEN 650 MG/20 ML UDC- SA PATIENTS-PAIN ONLY GT SCH ×2 (08:40→21:25)
[2021-03-15] MEDS: TERAZOSIN 1 MG CAPSULE GT SCH (08:40)
[2021-03-15] MEDS: PHENOBARBITAL 97.2 MG TABLET GT SCH ×2 (08:41→21:29)
[2021-03-15] MEDS: METOPROLOL TARTRATE 25 MG TABLET GT SCH ×2 (08:41→21:28)
[2021-03-15] MEDS: FAMOTIDINE 20 MG TABLET GT SCH ×2 (08:41→21:29)
[2021-03-15] MEDS: AMANTADINE HCL 50 MG/5 ML GT SCH ×2 (08:41→21:29)
[2021-03-15] MEDS: BACLOFEN 10 MG TABLET GT SCH ×2 (08:41→21:27)
[2021-03-15] MEDS: SODIUM HYPOCHLORITE 0.125% (QUARTER STRENGTH) 473 ML BOTTLE TP SCH ×2 (08:43→21:32)
[2021-03-15] MEDS: HEPARIN SODIUM,PORCINE 5,000 UNITS/ML VIAL SQ SCH ×2 (08:43→21:30)
[2021-03-15] MEDS: NYSTATIN CREAM 30 GM TUBE TP SCH ×2 (08:43→21:32)
[2021-03-15] MEDS: VITAMINS A AND D OINT TP SCH ×2 (08:43→21:32)
[2021-03-15] MEDS: COD LIVER OIL/ZINC OXIDE OINT 113 GM TUBE TOP SCH ×2 (08:43→21:31)
[2021-03-15] MEDS: HYDROGEN PEROXIDE 3% 118 ML BOTTLE TP SCH ×2 (09:45→20:00)
--- NOTE | 2021-03-15 14:12 | NUR ---
INTERDISCIPLINARY PLAN OF CARE CONFERENCE was held today. Patient's daughter Janis was not available to attend the meeting today. Dr. Peralta and the Interdisciplinary Team reviewed the current plan of care in detail. RN reported on patient's medical condition, ongoing fluctuations in HR and respiration, and ongoing wound treatment. See RN IDT conference notes. No major changes in condition were reported by any of the other disciplines. See all disciplines IDT notes and physician's progress notes for additional details.
[2021-03-15 20:00] VITALS: BP 135/75
[2021-03-15] MEDS: MINERAL OIL/PETROLAT OPHT OINT 3.5 GM TUBE EACHEYE SCH (21:26)
[2021-03-15] MEDS: hydrALAZINE HCL 25 MG TABLET GT SCH (21:26)
[2021-03-15] MEDS: ATORVASTATIN 40 MG TABLET GT SCH (21:28)
[2021-03-15] MEDS: THIAMINE HCL 100 MG TABLET GT SCH (21:29)
[2021-03-15] MEDS: ASCORBIC ACID 500 MG TABLET GT SCH (21:30)
[2021-03-16] VITALS: BP 125/63
[2021-03-16] MEDS: BLOOD SUGAR DIAGNOSTIC 1 EACH STRIP VI SCH ×4 (00:34→17:47)
[2021-03-16] MEDS: LEVALBUTEROL HCL 1.25 MG/0.5 ML NEB NEB SCH ×4 (00:35→19:30)
[2021-03-16] MEDS: INSULIN REGULAR, HUMAN 300 UNIT/3 ML VIAL SQ PRN ×4 (00:35→17:57)
[2021-03-16] MEDS: IPRATROPIUM BROMIDE 0.5 MG/2.5 ML NEBU NEB SCH ×4 (00:35→19:30)
[2021-03-16] MEDS: ARGININE/GLUTAMINE/CALCIUM BMB 1 EACH POWD.PACK GT SCH ×2 (06:10→17:47)
[2021-03-16 06:12] VITALS: BP 137/71
[2021-03-16 07:38] VITALS: BP 136/90
[2021-03-16] MEDS: levETIRAcetam 500 MG/5 ML LIQUID UDC GT SCH ×2 (08:15→21:00)
[2021-03-16] MEDS: ACETAMINOPHEN 650 MG/20 ML UDC- SA PATIENTS-PAIN ONLY GT SCH ×2 (08:15→20:30)
[2021-03-16] MEDS: TERAZOSIN 1 MG CAPSULE GT SCH (08:15)
[2021-03-16] MEDS: BACLOFEN 10 MG TABLET GT SCH ×2 (08:17→21:00)
[2021-03-16] MEDS: METOPROLOL TARTRATE 25 MG TABLET GT SCH ×2 (08:18→21:00)
[2021-03-16] MEDS: AMANTADINE HCL 50 MG/5 ML GT SCH ×2 (08:21→21:00)
[2021-03-16] MEDS: FAMOTIDINE 20 MG TABLET GT SCH ×2 (08:21→21:00)
[2021-03-16] MEDS: SODIUM HYPOCHLORITE 0.125% (QUARTER STRENGTH) 473 ML BOTTLE TP SCH ×2 (08:22→21:00)
[2021-03-16] MEDS: COD LIVER OIL/ZINC OXIDE OINT 113 GM TUBE TOP SCH ×2 (08:22→21:00)
[2021-03-16] MEDS: VITAMINS A AND D OINT TP SCH ×2 (08:22→21:00)
[2021-03-16] MEDS: NYSTATIN CREAM 30 GM TUBE TP SCH ×2 (08:24→21:00)
[2021-03-16] MEDS: HEPARIN SODIUM,PORCINE 5,000 UNITS/ML VIAL SQ SCH ×2 (08:26→21:00)
[2021-03-16] MEDS: PHENOBARBITAL 97.2 MG TABLET GT SCH ×2 (08:36→21:00)
[2021-03-16] MEDS: HYDROGEN PEROXIDE 3% 118 ML BOTTLE TP SCH ×2 (10:10→21:30)
--- NOTE | 2021-03-16 16:44 | NUR ---
SW emailed patient's daughter Janis the updated guidelines and criteria for visitations.
--- NOTE | 2021-03-16 19:09 | NUR ---
Pt daughter Kylie notified,Covid 19 test result negative.Seen by Dr Peralta,no new orders.
[2021-03-16 20:00] VITALS: BP 136/73
[2021-03-16] MEDS: MINERAL OIL/PETROLAT OPHT OINT 3.5 GM TUBE EACHEYE SCH (21:00)
[2021-03-16] MEDS: ASCORBIC ACID 500 MG TABLET GT SCH (21:00)
[2021-03-16] MEDS: ATORVASTATIN 40 MG TABLET GT SCH (21:00)
[2021-03-16] MEDS: hydrALAZINE HCL 25 MG TABLET GT SCH (21:00)
[2021-03-16] MEDS: THIAMINE HCL 100 MG TABLET GT SCH (21:00)
[2021-03-17] MEDS: LEVALBUTEROL HCL 1.25 MG/0.5 ML NEB NEB SCH ×4 (00:18→19:20)
[2021-03-17] MEDS: IPRATROPIUM BROMIDE 0.5 MG/2.5 ML NEBU NEB SCH ×4 (00:18→19:20)
[2021-03-17] MEDS: BLOOD SUGAR DIAGNOSTIC 1 EACH STRIP VI SCH ×4 (00:49→17:39)
[2021-03-17] MEDS: INSULIN REGULAR, HUMAN 300 UNIT/3 ML VIAL SQ PRN ×4 (00:53→17:44)
[2021-03-17 01:08] VITALS: BP 112/73
[2021-03-17] MEDS: ARGININE/GLUTAMINE/CALCIUM BMB 1 EACH POWD.PACK GT SCH ×2 (06:14→17:33)
[2021-03-17 06:15] VITALS: BP 136/72
[2021-03-17 07:57] VITALS: BP 150/81
[2021-03-17] MEDS: ACETAMINOPHEN 650 MG/20 ML UDC- SA PATIENTS-PAIN ONLY GT SCH ×2 (08:14→21:26)
[2021-03-17] MEDS: TERAZOSIN 1 MG CAPSULE GT SCH (08:16)
[2021-03-17] MEDS: levETIRAcetam 500 MG/5 ML LIQUID UDC GT SCH ×2 (08:21→21:27)
[2021-03-17] MEDS: BACLOFEN 10 MG TABLET GT SCH ×2 (08:23→21:28)
[2021-03-17] MEDS: PHENOBARBITAL 97.2 MG TABLET GT SCH ×2 (08:24→21:31)
[2021-03-17] MEDS: COD LIVER OIL/ZINC OXIDE OINT 113 GM TUBE TOP SCH ×2 (08:24→21:33)
[2021-03-17] MEDS: FAMOTIDINE 20 MG TABLET GT SCH ×2 (08:24→21:29)
[2021-03-17] MEDS: AMANTADINE HCL 50 MG/5 ML GT SCH ×2 (08:24→21:31)
[2021-03-17] MEDS: METOPROLOL TARTRATE 25 MG TABLET GT SCH ×2 (08:24→21:29)
[2021-03-17] MEDS: SODIUM HYPOCHLORITE 0.125% (QUARTER STRENGTH) 473 ML BOTTLE TP SCH ×2 (08:25→21:33)
[2021-03-17] MEDS: NYSTATIN CREAM 30 GM TUBE TP SCH ×2 (08:26→21:33)
[2021-03-17] MEDS: VITAMINS A AND D OINT TP SCH ×2 (08:26→21:33)
[2021-03-17] MEDS: HEPARIN SODIUM,PORCINE 5,000 UNITS/ML VIAL SQ SCH ×2 (08:27→21:33)
[2021-03-17] MEDS: HYDROGEN PEROXIDE 3% 118 ML BOTTLE TP SCH ×2 (09:00→21:00)
[2021-03-17] MEDS: HYDROCODONE/APAP 5-325MG TABLET GT PRN (17:35)
--- NOTE | 2021-03-17 19:06 | NUR ---
SEEN BY DR. WEBSTER AND WITH NNO.
[2021-03-17 20:00] VITALS: BP 134/79
[2021-03-17] MEDS: MINERAL OIL/PETROLAT OPHT OINT 3.5 GM TUBE EACHEYE SCH (21:27)
[2021-03-17] MEDS: hydrALAZINE HCL 25 MG TABLET GT SCH (21:27)
[2021-03-17] MEDS: ATORVASTATIN 40 MG TABLET GT SCH (21:28)
[2021-03-17] MEDS: ASCORBIC ACID 500 MG TABLET GT SCH (21:32)
[2021-03-17] MEDS: THIAMINE HCL 100 MG TABLET GT SCH (21:32)
[2021-03-18] MEDS: IPRATROPIUM BROMIDE 0.5 MG/2.5 ML NEBU NEB SCH ×4 (00:11→19:30)
[2021-03-18] MEDS: LEVALBUTEROL HCL 1.25 MG/0.5 ML NEB NEB SCH ×4 (00:12→19:30)
[2021-03-18] MEDS: BLOOD SUGAR DIAGNOSTIC 1 EACH STRIP VI SCH ×5 (00:24→23:16)
[2021-03-18] MEDS: INSULIN REGULAR, HUMAN 300 UNIT/3 ML VIAL SQ PRN ×5 (00:24→23:17)
[2021-03-18 00:25] VITALS: BP 124/62
[2021-03-18] MEDS: ARGININE/GLUTAMINE/CALCIUM BMB 1 EACH POWD.PACK GT SCH ×2 (06:07→17:03)
[2021-03-18] MEDS: GLUCERNA 1.2 1000ML LIQUID GT PRN ×2 (06:08→23:08)
[2021-03-18 06:19] VITALS: BP 135/65
[2021-03-18 08:24] VITALS: BP 147/86
[2021-03-18] MEDS: ACETAMINOPHEN 650 MG/20 ML UDC- SA PATIENTS-PAIN ONLY GT SCH ×2 (08:48→20:31)
[2021-03-18] MEDS: levETIRAcetam 500 MG/5 ML LIQUID UDC GT SCH ×2 (08:49→20:31)
[2021-03-18] MEDS: TERAZOSIN 1 MG CAPSULE GT SCH (08:49)
[2021-03-18] MEDS: BACLOFEN 10 MG TABLET GT SCH ×2 (08:50→20:31)
[2021-03-18] MEDS: FAMOTIDINE 20 MG TABLET GT SCH ×2 (08:50→20:31)
[2021-03-18] MEDS: AMANTADINE HCL 50 MG/5 ML GT SCH ×2 (08:50→20:31)
[2021-03-18] MEDS: PHENOBARBITAL 97.2 MG TABLET GT SCH ×2 (08:50→20:31)
[2021-03-18] MEDS: METOPROLOL TARTRATE 25 MG TABLET GT SCH ×2 (08:50→20:31)
[2021-03-18] MEDS: HEPARIN SODIUM,PORCINE 5,000 UNITS/ML VIAL SQ SCH ×2 (08:51→21:09)
[2021-03-18] MEDS: VITAMINS A AND D OINT TP SCH ×2 (08:53→21:08)
[2021-03-18] MEDS: SODIUM HYPOCHLORITE 0.125% (QUARTER STRENGTH) 473 ML BOTTLE TP SCH ×2 (08:53→21:08)
[2021-03-18] MEDS: NYSTATIN CREAM 30 GM TUBE TP SCH ×2 (08:53→21:08)
[2021-03-18] MEDS: COD LIVER OIL/ZINC OXIDE OINT 113 GM TUBE TOP SCH ×2 (08:53→21:08)
[2021-03-18] MEDS: HYDROGEN PEROXIDE 3% 118 ML BOTTLE TP SCH ×2 (09:30→20:30)
[2021-03-18 12:00] VITALS: BP 142/78
[2021-03-18 18:13] VITALS: BP 148/76
[2021-03-18] MEDS: ATORVASTATIN 40 MG TABLET GT SCH (20:31)
[2021-03-18] MEDS: MINERAL OIL/PETROLAT OPHT OINT 3.5 GM TUBE EACHEYE SCH (20:31)
[2021-03-18] MEDS: hydrALAZINE HCL 25 MG TABLET GT SCH (20:31)
[2021-03-18] MEDS: ASCORBIC ACID 500 MG TABLET GT SCH (20:32)
[2021-03-18] MEDS: THIAMINE HCL 100 MG TABLET GT SCH (20:32)
[2021-03-18 22:18] VITALS: BP 145/87
[2021-03-19 00:17] VITALS: BP 139/81
[2021-03-19] MEDS: LEVALBUTEROL HCL 1.25 MG/0.5 ML NEB NEB SCH ×4 (01:24→19:18)
[2021-03-19] MEDS: IPRATROPIUM BROMIDE 0.5 MG/2.5 ML NEBU NEB SCH ×4 (01:24→19:18)
[2021-03-19] MEDS: ARGININE/GLUTAMINE/CALCIUM BMB 1 EACH POWD.PACK GT SCH ×2 (05:35→18:13)
[2021-03-19] MEDS: BLOOD SUGAR DIAGNOSTIC 1 EACH STRIP VI SCH ×4 (05:35→23:30)
[2021-03-19] MEDS: INSULIN REGULAR, HUMAN 300 UNIT/3 ML VIAL SQ PRN ×4 (05:36→23:31)
[2021-03-19 06:11] VITALS: BP 145/86
[2021-03-19 07:46] VITALS: BP 140/80
[2021-03-19] MEDS: ACETAMINOPHEN 650 MG/20 ML UDC- SA PATIENTS-PAIN ONLY GT SCH ×2 (09:20→20:42)
[2021-03-19] MEDS: TERAZOSIN 1 MG CAPSULE GT SCH (09:22)
[2021-03-19] MEDS: METOPROLOL TARTRATE 25 MG TABLET GT SCH ×2 (09:23→20:42)
[2021-03-19] MEDS: BACLOFEN 10 MG TABLET GT SCH ×2 (09:23→20:42)
[2021-03-19] MEDS: FAMOTIDINE 20 MG TABLET GT SCH ×2 (09:24→20:42)
[2021-03-19] MEDS: PHENOBARBITAL 97.2 MG TABLET GT SCH ×2 (09:24→20:42)
[2021-03-19] MEDS: levETIRAcetam 500 MG/5 ML LIQUID UDC GT SCH ×2 (09:25→20:42)
[2021-03-19] MEDS: SODIUM HYPOCHLORITE 0.125% (QUARTER STRENGTH) 473 ML BOTTLE TP SCH ×2 (09:26→21:22)
[2021-03-19] MEDS: COD LIVER OIL/ZINC OXIDE OINT 113 GM TUBE TOP SCH ×2 (09:26→20:42)
[2021-03-19] MEDS: NYSTATIN CREAM 30 GM TUBE TP SCH ×2 (09:26→21:22)
[2021-03-19] MEDS: AMANTADINE HCL 50 MG/5 ML GT SCH ×2 (09:26→20:42)
[2021-03-19] MEDS: VITAMINS A AND D OINT TP SCH ×2 (09:27→21:22)
[2021-03-19] MEDS: HYDROGEN PEROXIDE 3% 118 ML BOTTLE TP SCH ×2 (09:27→19:18)
[2021-03-19] MEDS: HEPARIN SODIUM,PORCINE 5,000 UNITS/ML VIAL SQ SCH ×2 (09:30→21:21)
[2021-03-19 11:59] VITALS: BP 122/71
[2021-03-19] MEDS: GLUCERNA 1.2 1000ML LIQUID GT PRN (16:30)
[2021-03-19 18:30] VITALS: BP 134/77
[2021-03-19 20:22] VITALS: BP 122/81
[2021-03-19] MEDS: ATORVASTATIN 40 MG TABLET GT SCH (20:42)
[2021-03-19] MEDS: ASCORBIC ACID 500 MG TABLET GT SCH (20:42)
[2021-03-19] MEDS: THIAMINE HCL 100 MG TABLET GT SCH (20:42)
[2021-03-19] MEDS: hydrALAZINE HCL 25 MG TABLET GT SCH (20:42)
[2021-03-19] MEDS: MINERAL OIL/PETROLAT OPHT OINT 3.5 GM TUBE EACHEYE SCH (20:42)
[2021-03-20 00:14] VITALS: BP 130/72
[2021-03-20] MEDS: LEVALBUTEROL HCL 1.25 MG/0.5 ML NEB NEB SCH ×4 (02:02→19:32)
[2021-03-20] MEDS: IPRATROPIUM BROMIDE 0.5 MG/2.5 ML NEBU NEB SCH ×4 (02:02→19:32)
--- NOTE | 2021-03-20 03:47 | NUR ---
For Covid 19 test today per [facility] requirement.
[2021-03-20] MEDS: ARGININE/GLUTAMINE/CALCIUM BMB 1 EACH POWD.PACK GT SCH ×2 (05:54→17:29)
[2021-03-20] MEDS: INSULIN REGULAR, HUMAN 300 UNIT/3 ML VIAL SQ PRN ×4 (05:55→23:24)
[2021-03-20] MEDS: BLOOD SUGAR DIAGNOSTIC 1 EACH STRIP VI SCH ×4 (05:55→23:22)
[2021-03-20 08:00] VITALS: BP 151/76
[2021-03-20] MEDS: ACETAMINOPHEN 650 MG/20 ML UDC- SA PATIENTS-PAIN ONLY GT SCH ×2 (08:16→20:51)
[2021-03-20] MEDS: TERAZOSIN 1 MG CAPSULE GT SCH (08:17)
[2021-03-20] MEDS: levETIRAcetam 500 MG/5 ML LIQUID UDC GT SCH ×2 (08:17→20:52)
[2021-03-20] MEDS: METOPROLOL TARTRATE 25 MG TABLET GT SCH ×2 (08:18→20:52)
[2021-03-20] MEDS: BACLOFEN 10 MG TABLET GT SCH ×2 (08:18→20:52)
[2021-03-20] MEDS: PHENOBARBITAL 97.2 MG TABLET GT SCH ×2 (08:18→20:52)
[2021-03-20] MEDS: FAMOTIDINE 20 MG TABLET GT SCH ×2 (08:18→20:52)
[2021-03-20] MEDS: COD LIVER OIL/ZINC OXIDE OINT 113 GM TUBE TOP SCH ×2 (08:19→20:52)
[2021-03-20] MEDS: HEPARIN SODIUM,PORCINE 5,000 UNITS/ML VIAL SQ SCH ×2 (08:19→21:38)
[2021-03-20] MEDS: SODIUM HYPOCHLORITE 0.125% (QUARTER STRENGTH) 473 ML BOTTLE TP SCH ×2 (08:19→21:38)
[2021-03-20] MEDS: AMANTADINE HCL 50 MG/5 ML GT SCH ×2 (08:19→20:52)
[2021-03-20] MEDS: VITAMINS A AND D OINT TP SCH ×2 (08:20→21:38)
[2021-03-20] MEDS: NYSTATIN CREAM 30 GM TUBE TP SCH ×2 (08:20→21:38)
[2021-03-20] MEDS: HYDROGEN PEROXIDE 3% 118 ML BOTTLE TP SCH ×2 (08:48→21:44)
[2021-03-20 12:00] VITALS: BP 142/72
[2021-03-20] MEDS: GLUCERNA 1.2 1000ML LIQUID GT PRN (17:29)
--- NOTE | 2021-03-20 18:24 | NUR ---
PT.HAD COVID 19 TEST PER [facility] REQUIREMENT AND PT'S DTR. SARBJIT ONLY WANTS TO BE CALLED WITH RESULTS ONLY.
[2021-03-20 20:09] VITALS: BP 144/83
[2021-03-20] MEDS: ASCORBIC ACID 500 MG TABLET GT SCH (20:52)
[2021-03-20] MEDS: THIAMINE HCL 100 MG TABLET GT SCH (20:52)
[2021-03-20] MEDS: MINERAL OIL/PETROLAT OPHT OINT 3.5 GM TUBE EACHEYE SCH (20:52)
[2021-03-20] MEDS: ATORVASTATIN 40 MG TABLET GT SCH (20:52)
[2021-03-20] MEDS: hydrALAZINE HCL 25 MG TABLET GT SCH (20:52)
[2021-03-21 00:01] VITALS: BP 146/78
[2021-03-21] MEDS: LEVALBUTEROL HCL 1.25 MG/0.5 ML NEB NEB SCH ×4 (01:02→19:01)
[2021-03-21] MEDS: IPRATROPIUM BROMIDE 0.5 MG/2.5 ML NEBU NEB SCH ×4 (01:02→19:01)
[2021-03-21] MEDS: ARGININE/GLUTAMINE/CALCIUM BMB 1 EACH POWD.PACK GT SCH ×2 (05:11→17:53)
[2021-03-21] MEDS: BLOOD SUGAR DIAGNOSTIC 1 EACH STRIP VI SCH ×4 (05:11→23:37)
[2021-03-21] MEDS: INSULIN REGULAR, HUMAN 300 UNIT/3 ML VIAL SQ PRN ×4 (05:12→23:39)
[2021-03-21 06:15] VITALS: BP 149/83
[2021-03-21 08:00] VITALS: BP 144/88
[2021-03-21] MEDS: HYDROGEN PEROXIDE 3% 118 ML BOTTLE TP SCH ×2 (08:06→20:17)
[2021-03-21] MEDS: ACETAMINOPHEN 650 MG/20 ML UDC- SA PATIENTS-PAIN ONLY GT SCH ×2 (08:43→20:54)
[2021-03-21] MEDS: TERAZOSIN 1 MG CAPSULE GT SCH (08:45)
[2021-03-21] MEDS: levETIRAcetam 500 MG/5 ML LIQUID UDC GT SCH ×2 (08:45→20:55)
[2021-03-21] MEDS: BACLOFEN 10 MG TABLET GT SCH ×2 (08:45→20:55)
[2021-03-21] MEDS: FAMOTIDINE 20 MG TABLET GT SCH ×2 (08:46→20:56)
[2021-03-21] MEDS: AMANTADINE HCL 50 MG/5 ML GT SCH ×2 (08:46→20:56)
[2021-03-21] MEDS: METOPROLOL TARTRATE 25 MG TABLET GT SCH ×2 (08:46→20:56)
[2021-03-21] MEDS: PHENOBARBITAL 97.2 MG TABLET GT SCH ×2 (08:46→20:56)
[2021-03-21] MEDS: COD LIVER OIL/ZINC OXIDE OINT 113 GM TUBE TOP SCH ×2 (08:47→20:56)
[2021-03-21] MEDS: HEPARIN SODIUM,PORCINE 5,000 UNITS/ML VIAL SQ SCH ×2 (08:47→20:58)
[2021-03-21] MEDS: SODIUM HYPOCHLORITE 0.125% (QUARTER STRENGTH) 473 ML BOTTLE TP SCH ×2 (08:47→20:56)
[2021-03-21] MEDS: NYSTATIN CREAM 30 GM TUBE TP SCH ×2 (08:48→20:57)
[2021-03-21] MEDS: VITAMINS A AND D OINT TP SCH ×2 (08:48→20:57)
[2021-03-21 12:30] VITALS: BP 134/82
[2021-03-21] MEDS: HYDROCODONE/APAP 5-325MG TABLET GT PRN ×2 (12:35→20:57)
[2021-03-21] MEDS: GLUCERNA 1.2 1000ML LIQUID GT PRN (12:35)
[2021-03-21] MEDS: LORAZEPAM 1 MG TABLET GT PRN (17:58)
[2021-03-21 18:20] VITALS: BP 139/86
[2021-03-21 20:40] VITALS: BP 131/76
[2021-03-21] MEDS: ATORVASTATIN 40 MG TABLET GT SCH (20:55)
[2021-03-21] MEDS: hydrALAZINE HCL 25 MG TABLET GT SCH (20:55)
[2021-03-21] MEDS: MINERAL OIL/PETROLAT OPHT OINT 3.5 GM TUBE EACHEYE SCH (20:55)
[2021-03-21] MEDS: THIAMINE HCL 100 MG TABLET GT SCH (20:56)
[2021-03-21] MEDS: ASCORBIC ACID 500 MG TABLET GT SCH (20:56)
[2021-03-22] MEDS: IPRATROPIUM BROMIDE 0.5 MG/2.5 ML NEBU NEB SCH ×4 (00:57→20:11)
[2021-03-22] MEDS: LEVALBUTEROL HCL 1.25 MG/0.5 ML NEB NEB SCH ×4 (00:57→20:11)
[2021-03-22] MEDS: INSULIN REGULAR, HUMAN 300 UNIT/3 ML VIAL SQ PRN ×4 (05:29→23:53)
[2021-03-22] MEDS: BLOOD SUGAR DIAGNOSTIC 1 EACH STRIP VI SCH ×4 (05:30→23:25)
[2021-03-22] MEDS: ARGININE/GLUTAMINE/CALCIUM BMB 1 EACH POWD.PACK GT SCH ×2 (05:30→17:39)
[2021-03-22 05:37] LABS: HEMATOCRIT 33.5 % (36.7-47.1); MEAN CORPUSCULAR HEMOGLOBIN 27.9 uug (23.8-33.4); PLATELET COUNT (AUTO) 344 K/uL (152-348)
[2021-03-22 05:45] LABS: ALANINE AMINOTRANSFERASE 59 U/L (16-63); ALKALINE PHOSPHATASE 147 U/L (50-136); ASPARTATE AMINOTRANSFERASE 26 U/L (15-37); BILIRUBIN,TOTAL 0.2 mg/dL (0.2-1.0); CARBON DIOXIDE 30 mmol/L (21-32); CHLORIDE 95 mmol/L (98-107); CREATININE 0.4 mg/dL (0.6-1.3); GLUCOSE 154 mg/dL (74-106); POTASSIUM 4.5 mmol/L (3.5-5.1); TOTAL PROTEIN, SERUM 7.6 g/dL (6.4-8.2); UREA NITROGEN, BLOOD 15 mg/dL (7-18)
[2021-03-22 07:16] VITALS: BP 151/88
[2021-03-22] MEDS: TERAZOSIN 1 MG CAPSULE GT SCH (08:12)
[2021-03-22] MEDS: METOPROLOL TARTRATE 25 MG TABLET GT SCH ×2 (08:13→21:36)
[2021-03-22] MEDS: PHENOBARBITAL 97.2 MG TABLET GT SCH ×2 (08:13→21:48)
[2021-03-22] MEDS: ACETAMINOPHEN 650 MG/20 ML UDC- SA PATIENTS-PAIN ONLY GT SCH ×3 (08:13→21:30)
[2021-03-22] MEDS: levETIRAcetam 500 MG/5 ML LIQUID UDC GT SCH ×2 (08:14→21:36)
[2021-03-22] MEDS: FAMOTIDINE 20 MG TABLET GT SCH ×2 (08:15→21:37)
[2021-03-22] MEDS: BACLOFEN 10 MG TABLET GT SCH ×2 (08:15→21:36)
[2021-03-22] MEDS: AMANTADINE HCL 50 MG/5 ML GT SCH ×2 (08:16→21:48)
[2021-03-22] MEDS: HEPARIN SODIUM,PORCINE 5,000 UNITS/ML VIAL SQ SCH ×2 (08:18→21:48)
[2021-03-22] MEDS: VITAMINS A AND D OINT TP SCH ×2 (09:04→21:39)
[2021-03-22] MEDS: SODIUM HYPOCHLORITE 0.125% (QUARTER STRENGTH) 473 ML BOTTLE TP SCH ×2 (09:04→21:39)
[2021-03-22] MEDS: COD LIVER OIL/ZINC OXIDE OINT 113 GM TUBE TOP SCH ×2 (09:04→21:39)
[2021-03-22] MEDS: NYSTATIN CREAM 30 GM TUBE TP SCH ×2 (09:04→21:39)
[2021-03-22] MEDS: HYDROGEN PEROXIDE 3% 118 ML BOTTLE TP SCH ×2 (09:48→21:00)
[2021-03-22 12:00] VITALS: BP 128/80
--- NOTE | 2021-03-22 15:00 | NUR ---
SEEN BY FABY Montoya AND WITH NNO.
[2021-03-22 18:00] VITALS: BP 140/79
[2021-03-22 20:00] VITALS: BP 141/79
[2021-03-22] MEDS: hydrALAZINE HCL 25 MG TABLET GT SCH (21:36)
[2021-03-22] MEDS: MINERAL OIL/PETROLAT OPHT OINT 3.5 GM TUBE EACHEYE SCH (21:36)
[2021-03-22] MEDS: ATORVASTATIN 40 MG TABLET GT SCH (21:36)
[2021-03-22] MEDS: ASCORBIC ACID 500 MG TABLET GT SCH (21:39)
[2021-03-22] MEDS: THIAMINE HCL 100 MG TABLET GT SCH (21:39)
[2021-03-23] MEDS: GLUCERNA 1.2 1000ML LIQUID GT PRN ×2 (02:09→23:08)
[2021-03-23] MEDS: IPRATROPIUM BROMIDE 0.5 MG/2.5 ML NEBU NEB SCH ×4 (02:16→19:30)
[2021-03-23] MEDS: LEVALBUTEROL HCL 1.25 MG/0.5 ML NEB NEB SCH ×4 (02:16→19:30)
[2021-03-23] MEDS: BLOOD SUGAR DIAGNOSTIC 1 EACH STRIP VI SCH ×4 (05:40→23:05)
[2021-03-23] MEDS: ARGININE/GLUTAMINE/CALCIUM BMB 1 EACH POWD.PACK GT SCH ×2 (05:40→17:03)
[2021-03-23] MEDS: INSULIN REGULAR, HUMAN 300 UNIT/3 ML VIAL SQ PRN ×4 (05:42→23:08)
[2021-03-23 07:34] VITALS: BP 124/81
[2021-03-23] MEDS: HYDROGEN PEROXIDE 3% 118 ML BOTTLE TP SCH ×2 (08:25→21:04)
[2021-03-23] MEDS: PHENOBARBITAL 97.2 MG TABLET GT SCH ×2 (08:32→21:00)
[2021-03-23] MEDS: TERAZOSIN 1 MG CAPSULE GT SCH (08:41)
[2021-03-23] MEDS: BACLOFEN 10 MG TABLET GT SCH ×2 (08:42→21:00)
[2021-03-23] MEDS: levETIRAcetam 500 MG/5 ML LIQUID UDC GT SCH ×2 (08:42→21:00)
[2021-03-23] MEDS: FAMOTIDINE 20 MG TABLET GT SCH ×2 (08:42→21:00)
[2021-03-23] MEDS: METOPROLOL TARTRATE 25 MG TABLET GT SCH ×2 (08:42→21:00)
[2021-03-23] MEDS: AMANTADINE HCL 50 MG/5 ML GT SCH ×2 (08:43→21:00)
[2021-03-23] MEDS: HEPARIN SODIUM,PORCINE 5,000 UNITS/ML VIAL SQ SCH ×2 (08:45→21:00)
[2021-03-23] MEDS: ACETAMINOPHEN 650 MG/20 ML UDC- SA PATIENTS-PAIN ONLY GT PRN (08:47)
[2021-03-23] MEDS: COD LIVER OIL/ZINC OXIDE OINT 113 GM TUBE TOP SCH ×2 (10:00→21:00)
[2021-03-23] MEDS: SODIUM HYPOCHLORITE 0.125% (QUARTER STRENGTH) 473 ML BOTTLE TP SCH ×2 (10:00→21:00)
[2021-03-23] MEDS: NYSTATIN CREAM 30 GM TUBE TP SCH ×2 (10:00→21:00)
[2021-03-23] MEDS: VITAMINS A AND D OINT TP SCH ×2 (10:00→21:00)
[2021-03-23] MEDS: HYDROCODONE/APAP 5-325MG TABLET GT PRN (11:46)
[2021-03-23 12:30] VITALS: BP 137/84
[2021-03-23 18:02] VITALS: BP 145/80
--- NOTE | 2021-03-23 19:30 | NUR ---
Pt daughter Kylie notified,Covid 19 test result negative.Seen by Dr Peralta,no new orders.
[2021-03-23 20:00] VITALS: BP 137/88
[2021-03-23] MEDS: ACETAMINOPHEN 650 MG/20 ML UDC- SA PATIENTS-PAIN ONLY GT SCH (20:30)
[2021-03-23] MEDS: hydrALAZINE HCL 25 MG TABLET GT SCH (21:00)
[2021-03-23] MEDS: ASCORBIC ACID 500 MG TABLET GT SCH (21:00)
[2021-03-23] MEDS: MINERAL OIL/PETROLAT OPHT OINT 3.5 GM TUBE EACHEYE SCH (21:00)
[2021-03-23] MEDS: THIAMINE HCL 100 MG TABLET GT SCH (21:00)
[2021-03-23] MEDS: ATORVASTATIN 40 MG TABLET GT SCH (21:00)
[2021-03-24] MEDS: IPRATROPIUM BROMIDE 0.5 MG/2.5 ML NEBU NEB SCH ×4 (01:29→19:21)
[2021-03-24] MEDS: LEVALBUTEROL HCL 1.25 MG/0.5 ML NEB NEB SCH ×4 (01:29→19:21)
[2021-03-24] MEDS: BLOOD SUGAR DIAGNOSTIC 1 EACH STRIP VI SCH ×3 (06:05→17:35)
[2021-03-24] MEDS: ARGININE/GLUTAMINE/CALCIUM BMB 1 EACH POWD.PACK GT SCH ×2 (06:05→17:35)
[2021-03-24] MEDS: INSULIN REGULAR, HUMAN 300 UNIT/3 ML VIAL SQ PRN ×3 (06:07→17:36)
[2021-03-24 07:21] VITALS: BP 129/69
[2021-03-24] MEDS: ACETAMINOPHEN 650 MG/20 ML UDC- SA PATIENTS-PAIN ONLY GT SCH ×2 (08:18→20:30)
[2021-03-24] MEDS: TERAZOSIN 1 MG CAPSULE GT SCH (08:19)
[2021-03-24] MEDS: levETIRAcetam 500 MG/5 ML LIQUID UDC GT SCH ×2 (08:20→21:48)
[2021-03-24] MEDS: BACLOFEN 10 MG TABLET GT SCH ×2 (08:20→21:48)
[2021-03-24] MEDS: AMANTADINE HCL 50 MG/5 ML GT SCH ×2 (08:21→21:48)
[2021-03-24] MEDS: FAMOTIDINE 20 MG TABLET GT SCH ×2 (08:21→21:48)
[2021-03-24] MEDS: PHENOBARBITAL 97.2 MG TABLET GT SCH ×2 (08:21→21:48)
[2021-03-24] MEDS: METOPROLOL TARTRATE 25 MG TABLET GT SCH ×2 (08:21→21:48)
[2021-03-24] MEDS: COD LIVER OIL/ZINC OXIDE OINT 113 GM TUBE TOP SCH ×2 (08:22→21:49)
[2021-03-24] MEDS: HEPARIN SODIUM,PORCINE 5,000 UNITS/ML VIAL SQ SCH ×2 (08:23→21:00)
[2021-03-24] MEDS: NYSTATIN CREAM 30 GM TUBE TP SCH ×2 (09:00→21:52)
[2021-03-24] MEDS: VITAMINS A AND D OINT TP SCH ×2 (09:00→21:52)
[2021-03-24] MEDS: HYDROGEN PEROXIDE 3% 118 ML BOTTLE TP SCH ×2 (09:28→21:00)
[2021-03-24] MEDS: SODIUM HYPOCHLORITE 0.125% (QUARTER STRENGTH) 473 ML BOTTLE TP SCH ×2 (09:55→21:52)
[2021-03-24 12:38] VITALS: BP 131/76
[2021-03-24] MEDS: GLUCERNA 1.2 1000ML LIQUID GT PRN (17:35)
[2021-03-24 18:43] VITALS: BP 132/82
[2021-03-24 20:00] VITALS: BP 138/77
[2021-03-24] MEDS: hydrALAZINE HCL 25 MG TABLET GT SCH (21:47)
[2021-03-24] MEDS: MINERAL OIL/PETROLAT OPHT OINT 3.5 GM TUBE EACHEYE SCH (21:47)
[2021-03-24] MEDS: ATORVASTATIN 40 MG TABLET GT SCH (21:48)
[2021-03-24] MEDS: ASCORBIC ACID 500 MG TABLET GT SCH (21:49)
[2021-03-24] MEDS: THIAMINE HCL 100 MG TABLET GT SCH (21:49)
[2021-03-25] MEDS: BLOOD SUGAR DIAGNOSTIC 1 EACH STRIP VI SCH ×5 (00:15→23:59)
[2021-03-25] MEDS: INSULIN REGULAR, HUMAN 300 UNIT/3 ML VIAL SQ PRN ×4 (00:23→17:09)
[2021-03-25 00:29] VITALS: BP 128/66
[2021-03-25] MEDS: LEVALBUTEROL HCL 1.25 MG/0.5 ML NEB NEB SCH ×4 (01:36→19:23)
[2021-03-25] MEDS: IPRATROPIUM BROMIDE 0.5 MG/2.5 ML NEBU NEB SCH ×4 (01:36→19:23)
[2021-03-25] MEDS: ARGININE/GLUTAMINE/CALCIUM BMB 1 EACH POWD.PACK GT SCH ×2 (05:47→17:08)
[2021-03-25 07:46] VITALS: BP 139/86
[2021-03-25] MEDS: HYDROGEN PEROXIDE 3% 118 ML BOTTLE TP SCH ×2 (08:38→19:24)
[2021-03-25] MEDS: ACETAMINOPHEN 650 MG/20 ML UDC- SA PATIENTS-PAIN ONLY GT SCH ×2 (08:51→19:56)
[2021-03-25] MEDS: TERAZOSIN 1 MG CAPSULE GT SCH (08:53)
[2021-03-25] MEDS: levETIRAcetam 500 MG/5 ML LIQUID UDC GT SCH ×2 (08:54→20:35)
[2021-03-25] MEDS: BACLOFEN 10 MG TABLET GT SCH ×2 (08:54→20:35)
[2021-03-25] MEDS: METOPROLOL TARTRATE 25 MG TABLET GT SCH ×2 (08:55→20:35)
[2021-03-25] MEDS: FAMOTIDINE 20 MG TABLET GT SCH ×2 (08:55→20:35)
[2021-03-25] MEDS: AMANTADINE HCL 50 MG/5 ML GT SCH ×2 (08:55→20:35)
[2021-03-25] MEDS: PHENOBARBITAL 97.2 MG TABLET GT SCH ×2 (08:55→20:35)
[2021-03-25] MEDS: HEPARIN SODIUM,PORCINE 5,000 UNITS/ML VIAL SQ SCH ×2 (08:57→21:15)
[2021-03-25] MEDS: COD LIVER OIL/ZINC OXIDE OINT 113 GM TUBE TOP SCH ×2 (08:57→20:36)
[2021-03-25] MEDS: VITAMINS A AND D OINT TP SCH ×2 (09:00→20:36)
[2021-03-25] MEDS: NYSTATIN CREAM 30 GM TUBE TP SCH ×2 (09:55→20:36)
[2021-03-25] MEDS: SODIUM HYPOCHLORITE 0.125% (QUARTER STRENGTH) 473 ML BOTTLE TP SCH ×2 (09:55→20:36)
[2021-03-25 12:30] VITALS: BP 117/63
[2021-03-25] MEDS: GLUCERNA 1.2 1000ML LIQUID GT PRN (12:43)
[2021-03-25 18:25] VITALS: BP 140/65
[2021-03-25] MEDS: MINERAL OIL/PETROLAT OPHT OINT 3.5 GM TUBE EACHEYE SCH (20:34)
[2021-03-25] MEDS: ASCORBIC ACID 500 MG TABLET GT SCH (20:35)
[2021-03-25] MEDS: THIAMINE HCL 100 MG TABLET GT SCH (20:35)
[2021-03-25] MEDS: ATORVASTATIN 40 MG TABLET GT SCH (20:35)
[2021-03-25] MEDS: hydrALAZINE HCL 25 MG TABLET GT SCH (20:35)
[2021-03-25 22:19] VITALS: BP 130/76
[2021-03-25] MEDS: LORAZEPAM 1 MG TABLET GT PRN (23:00)
[2021-03-26] MEDS: INSULIN REGULAR, HUMAN 300 UNIT/3 ML VIAL SQ PRN ×5 (00:10→23:52)
[2021-03-26 00:16] VITALS: BP 130/87
[2021-03-26] MEDS: LEVALBUTEROL HCL 1.25 MG/0.5 ML NEB NEB SCH ×4 (01:57→19:20)
[2021-03-26] MEDS: IPRATROPIUM BROMIDE 0.5 MG/2.5 ML NEBU NEB SCH ×4 (01:57→19:20)
[2021-03-26] MEDS: HYDROCODONE/APAP 5-325MG TABLET GT PRN (04:12)
[2021-03-26] MEDS: BLOOD SUGAR DIAGNOSTIC 1 EACH STRIP VI SCH ×4 (05:33→23:43)
[2021-03-26] MEDS: ARGININE/GLUTAMINE/CALCIUM BMB 1 EACH POWD.PACK GT SCH ×2 (05:33→18:11)
[2021-03-26 06:06] VITALS: BP 132/68
[2021-03-26 07:54] VITALS: BP 155/88
[2021-03-26] MEDS: TERAZOSIN 1 MG CAPSULE GT SCH (08:35)
[2021-03-26] MEDS: levETIRAcetam 500 MG/5 ML LIQUID UDC GT SCH ×2 (08:35→21:01)
[2021-03-26] MEDS: ACETAMINOPHEN 650 MG/20 ML UDC- SA PATIENTS-PAIN ONLY GT SCH ×2 (08:35→21:00)
[2021-03-26] MEDS: PHENOBARBITAL 97.2 MG TABLET GT SCH ×2 (08:36→21:02)
[2021-03-26] MEDS: METOPROLOL TARTRATE 25 MG TABLET GT SCH ×2 (08:36→21:01)
[2021-03-26] MEDS: BACLOFEN 10 MG TABLET GT SCH ×2 (08:36→21:01)
[2021-03-26] MEDS: FAMOTIDINE 20 MG TABLET GT SCH ×2 (08:36→21:02)
[2021-03-26] MEDS: AMANTADINE HCL 50 MG/5 ML GT SCH ×2 (08:37→21:02)
[2021-03-26] MEDS: COD LIVER OIL/ZINC OXIDE OINT 113 GM TUBE TOP SCH ×2 (08:45→21:02)
[2021-03-26] MEDS: HEPARIN SODIUM,PORCINE 5,000 UNITS/ML VIAL SQ SCH ×2 (08:45→20:55)
[2021-03-26] MEDS: SODIUM HYPOCHLORITE 0.125% (QUARTER STRENGTH) 473 ML BOTTLE TP SCH ×2 (08:45→21:02)
[2021-03-26] MEDS: NYSTATIN CREAM 30 GM TUBE TP SCH ×2 (08:46→21:02)
[2021-03-26] MEDS: VITAMINS A AND D OINT TP SCH ×2 (08:46→21:02)
[2021-03-26] MEDS: HYDROGEN PEROXIDE 3% 118 ML BOTTLE TP SCH ×2 (09:00→20:08)
[2021-03-26] MEDS: GLUCERNA 1.2 1000ML LIQUID GT PRN (09:33)
[2021-03-26 12:18] VITALS: BP 146/72
[2021-03-26] MEDS: MINERAL OIL/PETROLAT OPHT OINT 3.5 GM TUBE EACHEYE SCH (21:00)
[2021-03-26] MEDS: ATORVASTATIN 40 MG TABLET GT SCH (21:01)
[2021-03-26] MEDS: hydrALAZINE HCL 25 MG TABLET GT SCH (21:01)
[2021-03-26] MEDS: ASCORBIC ACID 500 MG TABLET GT SCH (21:02)
[2021-03-26] MEDS: THIAMINE HCL 100 MG TABLET GT SCH (21:02)
[2021-03-26 22:21] VITALS: BP 130/70
[2021-03-26 23:53] VITALS: BP 126/77
[2021-03-27] MEDS: IPRATROPIUM BROMIDE 0.5 MG/2.5 ML NEBU NEB SCH ×4 (01:07→19:31)
[2021-03-27] MEDS: LEVALBUTEROL HCL 1.25 MG/0.5 ML NEB NEB SCH ×4 (01:07→19:31)
[2021-03-27] MEDS: GLUCERNA 1.2 1000ML LIQUID GT PRN (02:26)
[2021-03-27 04:17] VITALS: BP 126/77
[2021-03-27] MEDS: BLOOD SUGAR DIAGNOSTIC 1 EACH STRIP VI SCH ×3 (05:36→17:58)
[2021-03-27] MEDS: ARGININE/GLUTAMINE/CALCIUM BMB 1 EACH POWD.PACK GT SCH ×2 (05:36→17:58)
[2021-03-27] MEDS: INSULIN REGULAR, HUMAN 300 UNIT/3 ML VIAL SQ PRN ×3 (05:41→17:59)
[2021-03-27 07:49] VITALS: BP 128/82
[2021-03-27] MEDS: TERAZOSIN 1 MG CAPSULE GT SCH (08:33)
[2021-03-27] MEDS: levETIRAcetam 500 MG/5 ML LIQUID UDC GT SCH ×2 (08:33→21:16)
[2021-03-27] MEDS: BACLOFEN 10 MG TABLET GT SCH ×2 (08:34→21:16)
[2021-03-27] MEDS: PHENOBARBITAL 97.2 MG TABLET GT SCH ×2 (08:35→21:17)
[2021-03-27] MEDS: AMANTADINE HCL 50 MG/5 ML GT SCH ×2 (08:35→21:17)
[2021-03-27] MEDS: FAMOTIDINE 20 MG TABLET GT SCH ×2 (08:35→21:16)
[2021-03-27] MEDS: METOPROLOL TARTRATE 25 MG TABLET GT SCH ×2 (08:35→21:16)
[2021-03-27] MEDS: COD LIVER OIL/ZINC OXIDE OINT 113 GM TUBE TOP SCH ×2 (08:42→21:17)
[2021-03-27] MEDS: NYSTATIN CREAM 30 GM TUBE TP SCH ×2 (08:42→21:17)
[2021-03-27] MEDS: SODIUM HYPOCHLORITE 0.125% (QUARTER STRENGTH) 473 ML BOTTLE TP SCH ×2 (08:42→21:00)
[2021-03-27] MEDS: VITAMINS A AND D OINT TP SCH ×2 (08:42→21:17)
[2021-03-27] MEDS: HEPARIN SODIUM,PORCINE 5,000 UNITS/ML VIAL SQ SCH ×2 (08:44→21:00)
[2021-03-27] MEDS: ACETAMINOPHEN 650 MG/20 ML UDC- SA PATIENTS-PAIN ONLY GT SCH ×2 (08:46→21:15)
[2021-03-27] MEDS: HYDROGEN PEROXIDE 3% 118 ML BOTTLE TP SCH ×2 (09:41→21:19)
[2021-03-27 12:09] VITALS: BP 131/73
[2021-03-27] MEDS: MINERAL OIL/PETROLAT OPHT OINT 3.5 GM TUBE EACHEYE SCH (21:15)
[2021-03-27] MEDS: hydrALAZINE HCL 25 MG TABLET GT SCH (21:16)
[2021-03-27] MEDS: ATORVASTATIN 40 MG TABLET GT SCH (21:16)
[2021-03-27] MEDS: ASCORBIC ACID 500 MG TABLET GT SCH (21:17)
[2021-03-27] MEDS: THIAMINE HCL 100 MG TABLET GT SCH (21:17)
[2021-03-27 23:06] VITALS: BP 114/78
[2021-03-28] VITALS: BP 126/82
[2021-03-28] MEDS: INSULIN REGULAR, HUMAN 300 UNIT/3 ML VIAL SQ PRN ×4 (00:30→18:21)
[2021-03-28] MEDS: BLOOD SUGAR DIAGNOSTIC 1 EACH STRIP VI SCH ×4 (00:55→18:20)
[2021-03-28] MEDS: IPRATROPIUM BROMIDE 0.5 MG/2.5 ML NEBU NEB SCH ×4 (01:00→19:59)
[2021-03-28] MEDS: LEVALBUTEROL HCL 1.25 MG/0.5 ML NEB NEB SCH ×4 (01:00→19:59)
[2021-03-28] MEDS: GLUCERNA 1.2 1000ML LIQUID GT PRN (02:09)
[2021-03-28] MEDS: HYDROCODONE/APAP 5-325MG TABLET GT PRN (05:00)
[2021-03-28] MEDS: ARGININE/GLUTAMINE/CALCIUM BMB 1 EACH POWD.PACK GT SCH ×2 (05:19→17:16)
[2021-03-28 06:00] VITALS: BP 132/85
[2021-03-28 07:30] VITALS: BP 130/53
[2021-03-28] MEDS: HYDROGEN PEROXIDE 3% 118 ML BOTTLE TP SCH ×2 (08:24→20:45)
[2021-03-28] MEDS: TERAZOSIN 1 MG CAPSULE GT SCH (09:03)
[2021-03-28] MEDS: levETIRAcetam 500 MG/5 ML LIQUID UDC GT SCH ×2 (09:03→21:31)
[2021-03-28] MEDS: BACLOFEN 10 MG TABLET GT SCH ×2 (09:03→21:31)
[2021-03-28] MEDS: ACETAMINOPHEN 650 MG/20 ML UDC- SA PATIENTS-PAIN ONLY GT SCH ×2 (09:03→20:30)
[2021-03-28] MEDS: PHENOBARBITAL 97.2 MG TABLET GT SCH ×2 (09:04→21:32)
[2021-03-28] MEDS: AMANTADINE HCL 50 MG/5 ML GT SCH ×2 (09:04→21:32)
[2021-03-28] MEDS: METOPROLOL TARTRATE 25 MG TABLET GT SCH ×2 (09:04→21:32)
[2021-03-28] MEDS: FAMOTIDINE 20 MG TABLET GT SCH ×2 (09:04→21:32)
[2021-03-28] MEDS: NYSTATIN CREAM 30 GM TUBE TP SCH ×2 (09:04→21:00)
[2021-03-28] MEDS: VITAMINS A AND D OINT TP SCH ×2 (09:04→21:00)
[2021-03-28] MEDS: COD LIVER OIL/ZINC OXIDE OINT 113 GM TUBE TOP SCH ×2 (09:04→21:32)
[2021-03-28] MEDS: SODIUM HYPOCHLORITE 0.125% (QUARTER STRENGTH) 473 ML BOTTLE TP SCH ×2 (09:04→21:00)
[2021-03-28] MEDS: HEPARIN SODIUM,PORCINE 5,000 UNITS/ML VIAL SQ SCH ×2 (09:04→21:00)
[2021-03-28 20:27] VITALS: BP 146/78
[2021-03-28] MEDS: ATORVASTATIN 40 MG TABLET GT SCH (21:31)
[2021-03-28] MEDS: MINERAL OIL/PETROLAT OPHT OINT 3.5 GM TUBE EACHEYE SCH (21:31)
[2021-03-28] MEDS: hydrALAZINE HCL 25 MG TABLET GT SCH (21:31)
[2021-03-28] MEDS: ASCORBIC ACID 500 MG TABLET GT SCH (21:32)
[2021-03-28] MEDS: THIAMINE HCL 100 MG TABLET GT SCH (21:32)
[2021-03-29] VITALS: BP 135/74
[2021-03-29] MEDS: BLOOD SUGAR DIAGNOSTIC 1 EACH STRIP VI SCH ×5 (00:43→23:25)
[2021-03-29] MEDS: LEVALBUTEROL HCL 1.25 MG/0.5 ML NEB NEB SCH ×4 (01:57→18:53)
[2021-03-29] MEDS: IPRATROPIUM BROMIDE 0.5 MG/2.5 ML NEBU NEB SCH ×4 (01:57→18:53)
[2021-03-29] MEDS: INSULIN REGULAR, HUMAN 300 UNIT/3 ML VIAL SQ PRN ×4 (02:05→23:30)
[2021-03-29 06:00] VITALS: BP 138/76
[2021-03-29] MEDS: ARGININE/GLUTAMINE/CALCIUM BMB 1 EACH POWD.PACK GT SCH ×2 (06:30→17:07)
[2021-03-29 07:23] VITALS: BP 140/94
[2021-03-29] MEDS: HYDROCODONE/APAP 5-325MG TABLET GT PRN (08:00)
[2021-03-29] MEDS: ACETAMINOPHEN 650 MG/20 ML UDC- SA PATIENTS-PAIN ONLY GT SCH ×2 (08:17→20:55)
[2021-03-29] MEDS: BACLOFEN 10 MG TABLET GT SCH ×2 (08:18→20:56)
[2021-03-29] MEDS: METOPROLOL TARTRATE 25 MG TABLET GT SCH ×2 (08:18→20:57)
[2021-03-29] MEDS: AMANTADINE HCL 50 MG/5 ML GT SCH ×2 (08:18→20:57)
[2021-03-29] MEDS: PHENOBARBITAL 97.2 MG TABLET GT SCH ×2 (08:18→20:57)
[2021-03-29] MEDS: COD LIVER OIL/ZINC OXIDE OINT 113 GM TUBE TOP SCH ×2 (08:18→20:58)
[2021-03-29] MEDS: VITAMINS A AND D OINT TP SCH ×2 (08:18→20:58)
[2021-03-29] MEDS: levETIRAcetam 500 MG/5 ML LIQUID UDC GT SCH ×2 (08:18→20:56)
[2021-03-29] MEDS: TERAZOSIN 1 MG CAPSULE GT SCH (08:18)
[2021-03-29] MEDS: FAMOTIDINE 20 MG TABLET GT SCH ×2 (08:18→20:57)
[2021-03-29] MEDS: NYSTATIN CREAM 30 GM TUBE TP SCH ×2 (08:18→20:58)
[2021-03-29] MEDS: SODIUM HYPOCHLORITE 0.125% (QUARTER STRENGTH) 473 ML BOTTLE TP SCH ×2 (08:18→20:58)
[2021-03-29] MEDS: HEPARIN SODIUM,PORCINE 5,000 UNITS/ML VIAL SQ SCH ×2 (08:19→21:00)
[2021-03-29] MEDS: HYDROGEN PEROXIDE 3% 118 ML BOTTLE TP SCH ×2 (08:48→20:23)
[2021-03-29 14:41] LABS: HEMATOCRIT 33.1 % (36.7-47.1); MEAN CORPUSCULAR HEMOGLOBIN 28.1 uug (23.8-33.4); MEAN CORPUSCULAR VOLUME 86.5 fL (73.0-96.2); PLATELET COUNT (AUTO) 301 K/uL (152-348)
[2021-03-29 14:44] LABS: CARBON DIOXIDE 30 mmol/L (21-32); CHLORIDE 97 mmol/L (98-107); CREATININE 0.4 mg/dL (0.6-1.3); GLUCOSE 189 mg/dL (74-106); POTASSIUM 4.3 mmol/L (3.5-5.1); UREA NITROGEN, BLOOD 18 mg/dL (7-18)
[2021-03-29 20:26] VITALS: BP 133/83
[2021-03-29] MEDS: MINERAL OIL/PETROLAT OPHT OINT 3.5 GM TUBE EACHEYE SCH (20:55)
[2021-03-29] MEDS: hydrALAZINE HCL 25 MG TABLET GT SCH (20:56)
[2021-03-29] MEDS: ATORVASTATIN 40 MG TABLET GT SCH (20:56)
[2021-03-29] MEDS: THIAMINE HCL 100 MG TABLET GT SCH (20:57)
[2021-03-29] MEDS: ASCORBIC ACID 500 MG TABLET GT SCH (20:58)
[2021-03-30] MEDS: IPRATROPIUM BROMIDE 0.5 MG/2.5 ML NEBU NEB SCH ×4 (00:58→20:13)
[2021-03-30] MEDS: LEVALBUTEROL HCL 1.25 MG/0.5 ML NEB NEB SCH ×4 (00:58→20:13)
[2021-03-30] MEDS: BLOOD SUGAR DIAGNOSTIC 1 EACH STRIP VI SCH ×3 (05:38→17:57)
[2021-03-30] MEDS: ARGININE/GLUTAMINE/CALCIUM BMB 1 EACH POWD.PACK GT SCH ×2 (05:38→17:57)
[2021-03-30] MEDS: GLUCERNA 1.2 1000ML LIQUID GT PRN (06:22)
[2021-03-30] MEDS: INSULIN REGULAR, HUMAN 300 UNIT/3 ML VIAL SQ PRN ×2 (06:23→11:53)
[2021-03-30 07:55] VITALS: BP 156/88
[2021-03-30] MEDS: METOPROLOL TARTRATE 25 MG TABLET GT SCH ×2 (08:27→21:34)
[2021-03-30] MEDS: VITAMINS A AND D OINT TP SCH ×2 (08:33→21:36)
[2021-03-30] MEDS: AMANTADINE HCL 50 MG/5 ML GT SCH ×2 (08:33→21:34)
[2021-03-30] MEDS: ACETAMINOPHEN 650 MG/20 ML UDC- SA PATIENTS-PAIN ONLY GT SCH ×2 (08:33→20:42)
[2021-03-30] MEDS: SODIUM HYPOCHLORITE 0.125% (QUARTER STRENGTH) 473 ML BOTTLE TP SCH ×2 (08:33→21:36)
[2021-03-30] MEDS: levETIRAcetam 500 MG/5 ML LIQUID UDC GT SCH ×2 (08:33→21:33)
[2021-03-30] MEDS: BACLOFEN 10 MG TABLET GT SCH ×2 (08:33→21:33)
[2021-03-30] MEDS: PHENOBARBITAL 97.2 MG TABLET GT SCH ×2 (08:33→21:34)
[2021-03-30] MEDS: FAMOTIDINE 20 MG TABLET GT SCH ×2 (08:33→21:34)
[2021-03-30] MEDS: TERAZOSIN 1 MG CAPSULE GT SCH (08:33)
[2021-03-30] MEDS: COD LIVER OIL/ZINC OXIDE OINT 113 GM TUBE TOP SCH ×2 (08:33→21:36)
[2021-03-30] MEDS: NYSTATIN CREAM 30 GM TUBE TP SCH ×2 (08:33→21:36)
[2021-03-30] MEDS: HYDROGEN PEROXIDE 3% 118 ML BOTTLE TP SCH ×2 (08:47→21:07)
[2021-03-30] MEDS: HEPARIN SODIUM,PORCINE 5,000 UNITS/ML VIAL SQ SCH ×2 (09:01→21:00)
[2021-03-30 20:08] VITALS: BP 125/70
[2021-03-30] MEDS: MINERAL OIL/PETROLAT OPHT OINT 3.5 GM TUBE EACHEYE SCH (20:43)
[2021-03-30] MEDS: hydrALAZINE HCL 25 MG TABLET GT SCH (21:32)
[2021-03-30] MEDS: ATORVASTATIN 40 MG TABLET GT SCH (21:33)
[2021-03-30] MEDS: THIAMINE HCL 100 MG TABLET GT SCH (21:34)
[2021-03-30] MEDS: ASCORBIC ACID 500 MG TABLET GT SCH (21:34)
[2021-03-30] MEDS: HYDROCODONE/APAP 5-325MG TABLET GT PRN (22:00)
[2021-03-31] VITALS: BP 123/72
[2021-03-31] MEDS: LEVALBUTEROL HCL 1.25 MG/0.5 ML NEB NEB SCH ×4 (01:49→19:40)
[2021-03-31] MEDS: IPRATROPIUM BROMIDE 0.5 MG/2.5 ML NEBU NEB SCH ×4 (01:49→19:40)
[2021-03-31] MEDS: ARGININE/GLUTAMINE/CALCIUM BMB 1 EACH POWD.PACK GT SCH ×2 (05:45→17:03)
[2021-03-31] MEDS: BLOOD SUGAR DIAGNOSTIC 1 EACH STRIP VI SCH ×4 (05:45→17:04)
[2021-03-31] MEDS: INSULIN REGULAR, HUMAN 300 UNIT/3 ML VIAL SQ PRN ×4 (05:46→17:07)
[2021-03-31 06:07] VITALS: BP 148/82
[2021-03-31] MEDS: GLUCERNA 1.2 1000ML LIQUID GT PRN (06:08)
[2021-03-31 07:56] VITALS: BP 130/75
[2021-03-31] MEDS: HYDROGEN PEROXIDE 3% 118 ML BOTTLE TP SCH ×2 (08:07→21:07)
[2021-03-31] MEDS: ACETAMINOPHEN 650 MG/20 ML UDC- SA PATIENTS-PAIN ONLY GT SCH ×2 (08:46→20:30)
[2021-03-31] MEDS: BACLOFEN 10 MG TABLET GT SCH ×2 (08:47→21:00)
[2021-03-31] MEDS: PHENOBARBITAL 97.2 MG TABLET GT SCH ×2 (08:47→21:00)
[2021-03-31] MEDS: FAMOTIDINE 20 MG TABLET GT SCH ×2 (08:47→21:00)
[2021-03-31] MEDS: AMANTADINE HCL 50 MG/5 ML GT SCH ×2 (08:47→21:00)
[2021-03-31] MEDS: levETIRAcetam 500 MG/5 ML LIQUID UDC GT SCH ×2 (08:47→21:00)
[2021-03-31] MEDS: TERAZOSIN 1 MG CAPSULE GT SCH (08:47)
[2021-03-31] MEDS: METOPROLOL TARTRATE 25 MG TABLET GT SCH ×2 (08:47→21:00)
[2021-03-31] MEDS: HEPARIN SODIUM,PORCINE 5,000 UNITS/ML VIAL SQ SCH ×2 (08:48→21:00)
[2021-03-31] MEDS: VITAMINS A AND D OINT TP SCH ×2 (08:48→21:00)
[2021-03-31] MEDS: COD LIVER OIL/ZINC OXIDE OINT 113 GM TUBE TOP SCH ×2 (08:48→21:00)
[2021-03-31] MEDS: NYSTATIN CREAM 30 GM TUBE TP SCH ×2 (08:48→21:00)
[2021-03-31] MEDS: SODIUM HYPOCHLORITE 0.125% (QUARTER STRENGTH) 473 ML BOTTLE TP SCH ×2 (08:48→21:00)
[2021-03-31 18:30] VITALS: BP 142/76
[2021-03-31 20:07] VITALS: BP 136/75
[2021-03-31] MEDS: ASCORBIC ACID 500 MG TABLET GT SCH (21:00)
[2021-03-31] MEDS: ATORVASTATIN 40 MG TABLET GT SCH (21:00)
[2021-03-31] MEDS: THIAMINE HCL 100 MG TABLET GT SCH (21:00)
[2021-03-31] MEDS: hydrALAZINE HCL 25 MG TABLET GT SCH (21:00)
[2021-03-31] MEDS: HYDROGEN PEROXIDE 3% 118 ML BOTTLE TP PRN (21:04)
[2021-03-31] MEDS: MINERAL OIL/PETROLAT OPHT OINT 3.5 GM TUBE EACHEYE SCH (21:59)
[2021-04-01] MEDS: BLOOD SUGAR DIAGNOSTIC 1 EACH STRIP VI SCH ×5 (00:10→23:05)
[2021-04-01] MEDS: INSULIN REGULAR, HUMAN 300 UNIT/3 ML VIAL SQ PRN ×5 (00:39→23:05)
[2021-04-01] MEDS: IPRATROPIUM BROMIDE 0.5 MG/2.5 ML NEBU NEB SCH ×4 (01:57→19:13)
[2021-04-01] MEDS: LEVALBUTEROL HCL 1.25 MG/0.5 ML NEB NEB SCH ×4 (01:57→19:13)
[2021-04-01] MEDS: GLUCERNA 1.2 1000ML LIQUID GT PRN ×2 (02:00→23:06)
[2021-04-01] MEDS: ARGININE/GLUTAMINE/CALCIUM BMB 1 EACH POWD.PACK GT SCH ×2 (05:39→17:08)
[2021-04-01 06:19] VITALS: BP 142/85
[2021-04-01 07:50] VITALS: BP 134/86
[2021-04-01] MEDS: HYDROGEN PEROXIDE 3% 118 ML BOTTLE TP SCH ×2 (08:26→20:37)
[2021-04-01] MEDS: ACETAMINOPHEN 650 MG/20 ML UDC- SA PATIENTS-PAIN ONLY GT SCH ×2 (09:06→20:53)
[2021-04-01] MEDS: TERAZOSIN 1 MG CAPSULE GT SCH (09:07)
[2021-04-01] MEDS: levETIRAcetam 500 MG/5 ML LIQUID UDC GT SCH ×2 (09:07→20:54)
[2021-04-01] MEDS: BACLOFEN 10 MG TABLET GT SCH ×2 (09:07→20:54)
[2021-04-01] MEDS: METOPROLOL TARTRATE 25 MG TABLET GT SCH ×2 (09:08→20:54)
[2021-04-01] MEDS: AMANTADINE HCL 50 MG/5 ML GT SCH ×2 (09:08→20:54)
[2021-04-01] MEDS: PHENOBARBITAL 97.2 MG TABLET GT SCH ×2 (09:08→20:54)
[2021-04-01] MEDS: FAMOTIDINE 20 MG TABLET GT SCH ×2 (09:08→20:54)
[2021-04-01] MEDS: HEPARIN SODIUM,PORCINE 5,000 UNITS/ML VIAL SQ SCH ×2 (09:10→21:18)
[2021-04-01] MEDS: SODIUM HYPOCHLORITE 0.125% (QUARTER STRENGTH) 473 ML BOTTLE TP SCH ×2 (09:10→21:19)
[2021-04-01] MEDS: NYSTATIN CREAM 30 GM TUBE TP SCH ×2 (09:10→21:19)
[2021-04-01] MEDS: COD LIVER OIL/ZINC OXIDE OINT 113 GM TUBE TOP SCH ×2 (09:10→21:19)
[2021-04-01] MEDS: VITAMINS A AND D OINT TP SCH ×2 (09:10→21:19)
[2021-04-01 12:50] VITALS: BP 146/83
[2021-04-01] MEDS: HYDROCODONE/APAP 5-325MG TABLET GT PRN (12:54)
[2021-04-01 18:16] VITALS: BP 150/82
[2021-04-01 20:44] VITALS: BP 149/85
[2021-04-01] MEDS: MINERAL OIL/PETROLAT OPHT OINT 3.5 GM TUBE EACHEYE SCH (20:53)
[2021-04-01] MEDS: ATORVASTATIN 40 MG TABLET GT SCH (20:54)
[2021-04-01] MEDS: hydrALAZINE HCL 25 MG TABLET GT SCH (20:54)
[2021-04-01] MEDS: THIAMINE HCL 100 MG TABLET GT SCH (20:54)
[2021-04-01] MEDS: ASCORBIC ACID 500 MG TABLET GT SCH (20:54)
[2021-04-02 00:14] VITALS: BP 139/72
[2021-04-02] MEDS: LEVALBUTEROL HCL 1.25 MG/0.5 ML NEB NEB SCH ×4 (01:08→18:50)
[2021-04-02] MEDS: IPRATROPIUM BROMIDE 0.5 MG/2.5 ML NEBU NEB SCH ×4 (01:08→18:50)
--- NOTE | 2021-04-02 03:20 | NUR ---
Clarification of [place] 5-325mg order to give 1 tablet every 6 hours as needed for Moderate to severe pain ([phone]).
[2021-04-02] MEDS: HYDROCODONE/APAP 5-325MG TABLET GT PRN ×3 (03:28→18:55)
[2021-04-02] MEDS: ARGININE/GLUTAMINE/CALCIUM BMB 1 EACH POWD.PACK GT SCH ×2 (05:44→18:07)
[2021-04-02] MEDS: BLOOD SUGAR DIAGNOSTIC 1 EACH STRIP VI SCH ×3 (05:44→18:15)
[2021-04-02] MEDS: INSULIN REGULAR, HUMAN 300 UNIT/3 ML VIAL SQ PRN ×2 (05:46→12:54)
[2021-04-02 06:04] VITALS: BP 140/81
[2021-04-02 07:48] VITALS: BP 142/77
[2021-04-02] MEDS: HYDROGEN PEROXIDE 3% 118 ML BOTTLE TP SCH ×2 (09:00→20:55)
[2021-04-02] MEDS: ACETAMINOPHEN 650 MG/20 ML UDC- SA PATIENTS-PAIN ONLY GT SCH ×2 (09:30→21:27)
[2021-04-02] MEDS: BACLOFEN 10 MG TABLET GT SCH ×2 (09:32→21:28)
[2021-04-02] MEDS: TERAZOSIN 1 MG CAPSULE GT SCH (09:32)
[2021-04-02] MEDS: levETIRAcetam 500 MG/5 ML LIQUID UDC GT SCH ×2 (09:32→21:28)
[2021-04-02] MEDS: PHENOBARBITAL 97.2 MG TABLET GT SCH ×2 (09:33→21:28)
[2021-04-02] MEDS: METOPROLOL TARTRATE 25 MG TABLET GT SCH ×2 (09:33→21:28)
[2021-04-02] MEDS: FAMOTIDINE 20 MG TABLET GT SCH ×2 (09:33→21:28)
[2021-04-02] MEDS: AMANTADINE HCL 50 MG/5 ML GT SCH ×2 (09:33→21:28)
[2021-04-02] MEDS: SODIUM HYPOCHLORITE 0.125% (QUARTER STRENGTH) 473 ML BOTTLE TP SCH ×2 (09:34→21:00)
[2021-04-02] MEDS: NYSTATIN CREAM 30 GM TUBE TP SCH ×2 (09:34→21:00)
[2021-04-02] MEDS: COD LIVER OIL/ZINC OXIDE OINT 113 GM TUBE TOP SCH ×2 (09:34→21:00)
[2021-04-02] MEDS: HEPARIN SODIUM,PORCINE 5,000 UNITS/ML VIAL SQ SCH ×2 (09:34→21:29)
[2021-04-02] MEDS: VITAMINS A AND D OINT TP SCH ×2 (09:35→21:00)
[2021-04-02 12:30] VITALS: BP 152/81
[2021-04-02 18:30] VITALS: BP 153/88
[2021-04-02 20:39] VITALS: BP 130/77
[2021-04-02] MEDS: MINERAL OIL/PETROLAT OPHT OINT 3.5 GM TUBE EACHEYE SCH (21:27)
[2021-04-02] MEDS: ASCORBIC ACID 500 MG TABLET GT SCH (21:28)
[2021-04-02] MEDS: THIAMINE HCL 100 MG TABLET GT SCH (21:28)
[2021-04-02] MEDS: hydrALAZINE HCL 25 MG TABLET GT SCH (21:28)
[2021-04-02] MEDS: ATORVASTATIN 40 MG TABLET GT SCH (21:28)
[2021-04-03] MEDS: BLOOD SUGAR DIAGNOSTIC 1 EACH STRIP VI SCH ×4 (00:42→17:45)
[2021-04-03] MEDS: INSULIN REGULAR, HUMAN 300 UNIT/3 ML VIAL SQ PRN ×4 (00:47→17:47)
[2021-04-03 00:50] VITALS: BP 147/83
[2021-04-03] MEDS: IPRATROPIUM BROMIDE 0.5 MG/2.5 ML NEBU NEB SCH ×4 (00:50→20:00)
[2021-04-03] MEDS: LEVALBUTEROL HCL 1.25 MG/0.5 ML NEB NEB SCH ×4 (00:50→20:00)
[2021-04-03] MEDS: HYDROCODONE/APAP 5-325MG TABLET GT PRN (05:59)
[2021-04-03] MEDS: hydrALAZINE HCL 25 MG TABLET GT PRN (06:00)
[2021-04-03] MEDS: ARGININE/GLUTAMINE/CALCIUM BMB 1 EACH POWD.PACK GT SCH ×2 (06:00→17:45)
[2021-04-03 06:11] VITALS: BP 160/96
--- NOTE | 2021-04-03 07:01 | NUR ---
For Covid 19 test today per [facility] requirement.
[2021-04-03 07:47] VITALS: BP 127/74
[2021-04-03] MEDS: HYDROGEN PEROXIDE 3% 118 ML BOTTLE TP SCH ×2 (08:47→21:59)
[2021-04-03] MEDS: ACETAMINOPHEN 650 MG/20 ML UDC- SA PATIENTS-PAIN ONLY GT SCH ×2 (08:55→21:23)
[2021-04-03] MEDS: TERAZOSIN 1 MG CAPSULE GT SCH (08:56)
[2021-04-03] MEDS: BACLOFEN 10 MG TABLET GT SCH ×2 (08:57→21:24)
[2021-04-03] MEDS: levETIRAcetam 500 MG/5 ML LIQUID UDC GT SCH ×2 (08:57→21:24)
[2021-04-03] MEDS: PHENOBARBITAL 97.2 MG TABLET GT SCH ×2 (08:58→21:24)
[2021-04-03] MEDS: AMANTADINE HCL 50 MG/5 ML GT SCH ×2 (08:58→21:24)
[2021-04-03] MEDS: FAMOTIDINE 20 MG TABLET GT SCH ×2 (08:58→21:24)
[2021-04-03] MEDS: METOPROLOL TARTRATE 25 MG TABLET GT SCH ×2 (08:58→21:24)
[2021-04-03] MEDS: HEPARIN SODIUM,PORCINE 5,000 UNITS/ML VIAL SQ SCH ×2 (09:00→21:00)
[2021-04-03] MEDS: COD LIVER OIL/ZINC OXIDE OINT 113 GM TUBE TOP SCH ×2 (09:00→21:24)
[2021-04-03] MEDS: SODIUM HYPOCHLORITE 0.125% (QUARTER STRENGTH) 473 ML BOTTLE TP SCH ×2 (09:00→21:00)
[2021-04-03] MEDS: NYSTATIN CREAM 30 GM TUBE TP SCH ×2 (09:01→21:00)
[2021-04-03] MEDS: VITAMINS A AND D OINT TP SCH ×2 (09:01→21:00)
[2021-04-03] MEDS: GLUCERNA 1.2 1000ML LIQUID GT PRN (14:32)
[2021-04-03 18:11] VITALS: BP 131/85
[2021-04-03 20:45] VITALS: BP 130/73
[2021-04-03] MEDS: MINERAL OIL/PETROLAT OPHT OINT 3.5 GM TUBE EACHEYE SCH (21:23)
[2021-04-03] MEDS: hydrALAZINE HCL 25 MG TABLET GT SCH (21:23)
[2021-04-03] MEDS: THIAMINE HCL 100 MG TABLET GT SCH (21:24)
[2021-04-03] MEDS: ASCORBIC ACID 500 MG TABLET GT SCH (21:24)
[2021-04-03] MEDS: ATORVASTATIN 40 MG TABLET GT SCH (21:24)
[2021-04-04] VITALS: BP 136/70
[2021-04-04] MEDS: BLOOD SUGAR DIAGNOSTIC 1 EACH STRIP VI SCH ×4 (00:58→17:59)
[2021-04-04] MEDS: INSULIN REGULAR, HUMAN 300 UNIT/3 ML VIAL SQ PRN ×3 (01:00→18:00)
[2021-04-04] MEDS: IPRATROPIUM BROMIDE 0.5 MG/2.5 ML NEBU NEB SCH ×4 (02:23→19:20)
[2021-04-04] MEDS: LEVALBUTEROL HCL 1.25 MG/0.5 ML NEB NEB SCH ×4 (02:23→19:20)
[2021-04-04] MEDS: ARGININE/GLUTAMINE/CALCIUM BMB 1 EACH POWD.PACK GT SCH ×2 (05:35→17:59)
[2021-04-04 06:00] VITALS: BP 147/80
[2021-04-04 07:20] VITALS: BP 150/86
[2021-04-04] MEDS: ACETAMINOPHEN 650 MG/20 ML UDC- SA PATIENTS-PAIN ONLY GT SCH ×2 (08:57→20:30)
[2021-04-04] MEDS: TERAZOSIN 1 MG CAPSULE GT SCH (08:58)
[2021-04-04] MEDS: levETIRAcetam 500 MG/5 ML LIQUID UDC GT SCH ×2 (08:58→21:00)
[2021-04-04] MEDS: FAMOTIDINE 20 MG TABLET GT SCH ×2 (08:59→21:00)
[2021-04-04] MEDS: PHENOBARBITAL 97.2 MG TABLET GT SCH ×2 (08:59→21:00)
[2021-04-04] MEDS: METOPROLOL TARTRATE 25 MG TABLET GT SCH ×2 (08:59→21:00)
[2021-04-04] MEDS: BACLOFEN 10 MG TABLET GT SCH ×2 (08:59→21:00)
[2021-04-04] MEDS: AMANTADINE HCL 50 MG/5 ML GT SCH ×2 (08:59→21:00)
[2021-04-04] MEDS: HEPARIN SODIUM,PORCINE 5,000 UNITS/ML VIAL SQ SCH ×2 (09:00→21:00)
[2021-04-04] MEDS: HYDROGEN PEROXIDE 3% 118 ML BOTTLE TP SCH ×2 (09:00→21:42)
[2021-04-04] MEDS: VITAMINS A AND D OINT TP SCH ×2 (09:02→21:00)
[2021-04-04] MEDS: COD LIVER OIL/ZINC OXIDE OINT 113 GM TUBE TOP SCH ×2 (09:02→21:00)
[2021-04-04] MEDS: SODIUM HYPOCHLORITE 0.125% (QUARTER STRENGTH) 473 ML BOTTLE TP SCH ×2 (09:02→21:00)
[2021-04-04] MEDS: NYSTATIN CREAM 30 GM TUBE TP SCH ×2 (09:02→21:00)
[2021-04-04] MEDS: HYDROCODONE/APAP 5-325MG TABLET GT PRN (11:01)
[2021-04-04 12:00] VITALS: BP 151/75
[2021-04-04] MEDS: GLUCERNA 1.2 1000ML LIQUID GT PRN (12:23)
[2021-04-04 18:08] VITALS: BP 149/84
[2021-04-04 20:56] VITALS: BP 139/85
[2021-04-04] MEDS: MINERAL OIL/PETROLAT OPHT OINT 3.5 GM TUBE EACHEYE SCH (21:00)
[2021-04-04] MEDS: THIAMINE HCL 100 MG TABLET GT SCH (21:00)
[2021-04-04] MEDS: ATORVASTATIN 40 MG TABLET GT SCH (21:00)
[2021-04-04] MEDS: ASCORBIC ACID 500 MG TABLET GT SCH (21:00)
[2021-04-04] MEDS: hydrALAZINE HCL 25 MG TABLET GT SCH (21:00)
[2021-04-05] VITALS: BP 142/78
[2021-04-05] MEDS: LEVALBUTEROL HCL 1.25 MG/0.5 ML NEB NEB SCH ×4 (01:30→19:53)
[2021-04-05] MEDS: IPRATROPIUM BROMIDE 0.5 MG/2.5 ML NEBU NEB SCH ×4 (01:30→19:53)
[2021-04-05] MEDS: INSULIN REGULAR, HUMAN 300 UNIT/3 ML VIAL SQ PRN ×4 (02:26→18:11)
[2021-04-05] MEDS: GLUCERNA 1.2 1000ML LIQUID GT PRN ×2 (02:28→23:00)
[2021-04-05 06:00] VITALS: BP 136/79
[2021-04-05] MEDS: BLOOD SUGAR DIAGNOSTIC 1 EACH STRIP VI SCH ×4 (06:00→18:10)
[2021-04-05] MEDS: ARGININE/GLUTAMINE/CALCIUM BMB 1 EACH POWD.PACK GT SCH ×2 (06:00→18:10)
[2021-04-05 07:24] VITALS: BP 131/81
[2021-04-05] MEDS: HEPARIN SODIUM,PORCINE 5,000 UNITS/ML VIAL SQ SCH ×2 (09:00→21:53)
[2021-04-05] MEDS: TERAZOSIN 1 MG CAPSULE GT SCH (09:01)
[2021-04-05] MEDS: ACETAMINOPHEN 650 MG/20 ML UDC- SA PATIENTS-PAIN ONLY GT SCH ×2 (09:01→20:30)
[2021-04-05] MEDS: levETIRAcetam 500 MG/5 ML LIQUID UDC GT SCH ×2 (09:01→21:51)
[2021-04-05] MEDS: BACLOFEN 10 MG TABLET GT SCH ×2 (09:01→21:51)
[2021-04-05] MEDS: VITAMINS A AND D OINT TP SCH ×2 (09:02→21:53)
[2021-04-05] MEDS: PHENOBARBITAL 97.2 MG TABLET GT SCH ×2 (09:02→21:52)
[2021-04-05] MEDS: METOPROLOL TARTRATE 25 MG TABLET GT SCH ×2 (09:02→21:52)
[2021-04-05] MEDS: FAMOTIDINE 20 MG TABLET GT SCH ×2 (09:02→21:52)
[2021-04-05] MEDS: NYSTATIN CREAM 30 GM TUBE TP SCH ×2 (09:02→21:53)
[2021-04-05] MEDS: AMANTADINE HCL 50 MG/5 ML GT SCH ×2 (09:02→21:52)
[2021-04-05] MEDS: COD LIVER OIL/ZINC OXIDE OINT 113 GM TUBE TOP SCH ×2 (09:02→21:53)
[2021-04-05] MEDS: SODIUM HYPOCHLORITE 0.125% (QUARTER STRENGTH) 473 ML BOTTLE TP SCH ×2 (09:02→21:53)
[2021-04-05] MEDS: HYDROGEN PEROXIDE 3% 118 ML BOTTLE TP SCH ×2 (09:29→21:23)
[2021-04-05 16:16] VITALS: BP 139/80
[2021-04-05 18:37] VITALS: BP 142/84
[2021-04-05 20:36] VITALS: BP 134/80
[2021-04-05] MEDS: hydrALAZINE HCL 25 MG TABLET GT SCH (21:51)
[2021-04-05] MEDS: MINERAL OIL/PETROLAT OPHT OINT 3.5 GM TUBE EACHEYE SCH (21:51)
[2021-04-05] MEDS: THIAMINE HCL 100 MG TABLET GT SCH (21:52)
[2021-04-05] MEDS: ATORVASTATIN 40 MG TABLET GT SCH (21:52)
[2021-04-05] MEDS: ASCORBIC ACID 500 MG TABLET GT SCH (21:52)
[2021-04-06] MEDS: BLOOD SUGAR DIAGNOSTIC 1 EACH STRIP VI SCH ×5 (00:36→23:16)
[2021-04-06] MEDS: INSULIN REGULAR, HUMAN 300 UNIT/3 ML VIAL SQ PRN ×5 (00:37→23:17)
[2021-04-06 00:40] VITALS: BP 136/72
[2021-04-06] MEDS: LEVALBUTEROL HCL 1.25 MG/0.5 ML NEB NEB SCH ×4 (01:00→19:51)
[2021-04-06] MEDS: IPRATROPIUM BROMIDE 0.5 MG/2.5 ML NEBU NEB SCH ×4 (01:00→19:51)
[2021-04-06] MEDS: ARGININE/GLUTAMINE/CALCIUM BMB 1 EACH POWD.PACK GT SCH ×2 (05:50→17:37)
[2021-04-06 06:22] VITALS: BP 137/74
[2021-04-06 07:52] VITALS: BP 141/86
[2021-04-06] MEDS: HEPARIN SODIUM,PORCINE 5,000 UNITS/ML VIAL SQ SCH ×2 (09:02→21:56)
[2021-04-06] MEDS: levETIRAcetam 500 MG/5 ML LIQUID UDC GT SCH ×2 (09:08→21:53)
[2021-04-06] MEDS: ACETAMINOPHEN 650 MG/20 ML UDC- SA PATIENTS-PAIN ONLY GT SCH ×2 (09:08→20:48)
[2021-04-06] MEDS: TERAZOSIN 1 MG CAPSULE GT SCH (09:08)
[2021-04-06] MEDS: AMANTADINE HCL 50 MG/5 ML GT SCH ×2 (09:09→21:56)
[2021-04-06] MEDS: METOPROLOL TARTRATE 25 MG TABLET GT SCH ×2 (09:09→21:54)
[2021-04-06] MEDS: PHENOBARBITAL 97.2 MG TABLET GT SCH ×2 (09:09→21:54)
[2021-04-06] MEDS: FAMOTIDINE 20 MG TABLET GT SCH ×2 (09:09→21:54)
[2021-04-06] MEDS: BACLOFEN 10 MG TABLET GT SCH ×2 (09:09→21:53)
[2021-04-06] MEDS: COD LIVER OIL/ZINC OXIDE OINT 113 GM TUBE TOP SCH ×2 (09:10→21:55)
[2021-04-06] MEDS: VITAMINS A AND D OINT TP SCH ×2 (09:10→21:56)
[2021-04-06] MEDS: NYSTATIN CREAM 30 GM TUBE TP SCH ×2 (09:10→21:56)
[2021-04-06] MEDS: SODIUM HYPOCHLORITE 0.125% (QUARTER STRENGTH) 473 ML BOTTLE TP SCH ×2 (09:10→21:56)
[2021-04-06] MEDS: HYDROGEN PEROXIDE 3% 118 ML BOTTLE TP SCH ×2 (09:30→21:12)
[2021-04-06 12:00] VITALS: BP 137/81
[2021-04-06 18:00] VITALS: BP 141/77
[2021-04-06 20:00] VITALS: BP 136/88
[2021-04-06] MEDS: MINERAL OIL/PETROLAT OPHT OINT 3.5 GM TUBE EACHEYE SCH (21:49)
[2021-04-06] MEDS: hydrALAZINE HCL 25 MG TABLET GT SCH (21:50)
[2021-04-06] MEDS: ATORVASTATIN 40 MG TABLET GT SCH (21:53)
[2021-04-06] MEDS: THIAMINE HCL 100 MG TABLET GT SCH (21:54)
[2021-04-06] MEDS: ASCORBIC ACID 500 MG TABLET GT SCH (21:55)
[2021-04-07] MEDS: IPRATROPIUM BROMIDE 0.5 MG/2.5 ML NEBU NEB SCH ×4 (01:13→18:25)
[2021-04-07] MEDS: LEVALBUTEROL HCL 1.25 MG/0.5 ML NEB NEB SCH ×4 (01:13→18:25)
[2021-04-07] MEDS: BLOOD SUGAR DIAGNOSTIC 1 EACH STRIP VI SCH ×4 (06:24→23:48)
[2021-04-07] MEDS: ARGININE/GLUTAMINE/CALCIUM BMB 1 EACH POWD.PACK GT SCH ×2 (06:24→17:51)
[2021-04-07] MEDS: INSULIN REGULAR, HUMAN 300 UNIT/3 ML VIAL SQ PRN ×3 (06:25→17:53)
[2021-04-07] MEDS: HYDROGEN PEROXIDE 3% 118 ML BOTTLE TP SCH ×2 (07:52→21:12)
[2021-04-07 07:55] VITALS: BP 129/81
[2021-04-07] MEDS: ACETAMINOPHEN 650 MG/20 ML UDC- SA PATIENTS-PAIN ONLY GT SCH ×2 (08:25→20:30)
[2021-04-07] MEDS: levETIRAcetam 500 MG/5 ML LIQUID UDC GT SCH ×2 (08:26→20:31)
[2021-04-07] MEDS: TERAZOSIN 1 MG CAPSULE GT SCH (08:26)
[2021-04-07] MEDS: BACLOFEN 10 MG TABLET GT SCH ×2 (08:27→20:31)
[2021-04-07] MEDS: METOPROLOL TARTRATE 25 MG TABLET GT SCH ×2 (08:28→20:32)
[2021-04-07] MEDS: PHENOBARBITAL 97.2 MG TABLET GT SCH ×2 (08:29→20:32)
[2021-04-07] MEDS: FAMOTIDINE 20 MG TABLET GT SCH ×2 (08:29→20:32)
[2021-04-07] MEDS: AMANTADINE HCL 50 MG/5 ML GT SCH ×2 (08:33→20:32)
[2021-04-07] MEDS: SODIUM HYPOCHLORITE 0.125% (QUARTER STRENGTH) 473 ML BOTTLE TP SCH ×2 (08:34→20:32)
[2021-04-07] MEDS: VITAMINS A AND D OINT TP SCH ×2 (08:34→20:33)
[2021-04-07] MEDS: NYSTATIN CREAM 30 GM TUBE TP SCH ×2 (08:34→20:33)
[2021-04-07] MEDS: COD LIVER OIL/ZINC OXIDE OINT 113 GM TUBE TOP SCH ×2 (08:34→20:32)
[2021-04-07] MEDS: HEPARIN SODIUM,PORCINE 5,000 UNITS/ML VIAL SQ SCH ×2 (08:37→20:32)
[2021-04-07 12:00] VITALS: BP 142/83
--- NOTE | 2021-04-07 13:59 | NUR ---
This POULTRY KILLER notified patient's daughter Janis, via email, that the next IDT meeting for the patient is scheduled for 04/12/2021 at 11am. This POULTRY KILLER asked Janis to let this POULTRY KILLER know if she was available to participate in the meeting by speaker phone.
[2021-04-07 18:00] VITALS: BP 135/77
[2021-04-07] MEDS: GLUCERNA 1.2 1000ML LIQUID GT PRN (19:01)
[2021-04-07 20:00] VITALS: BP 125/73
[2021-04-07] MEDS: MINERAL OIL/PETROLAT OPHT OINT 3.5 GM TUBE EACHEYE SCH (20:30)
[2021-04-07] MEDS: ATORVASTATIN 40 MG TABLET GT SCH (20:31)
[2021-04-07] MEDS: hydrALAZINE HCL 25 MG TABLET GT SCH (20:31)
[2021-04-07] MEDS: THIAMINE HCL 100 MG TABLET GT SCH (20:32)
[2021-04-07] MEDS: ASCORBIC ACID 500 MG TABLET GT SCH (20:32)
[2021-04-08 00:02] VITALS: BP 155/81
[2021-04-08] MEDS: IPRATROPIUM BROMIDE 0.5 MG/2.5 ML NEBU NEB SCH ×4 (01:20→19:20)
[2021-04-08] MEDS: LEVALBUTEROL HCL 1.25 MG/0.5 ML NEB NEB SCH ×4 (01:20→19:20)
[2021-04-08] MEDS: BLOOD SUGAR DIAGNOSTIC 1 EACH STRIP VI SCH ×3 (05:56→17:20)
[2021-04-08] MEDS: ARGININE/GLUTAMINE/CALCIUM BMB 1 EACH POWD.PACK GT SCH ×2 (05:56→17:20)
[2021-04-08] MEDS: INSULIN REGULAR, HUMAN 300 UNIT/3 ML VIAL SQ PRN ×4 (05:58→17:22)
[2021-04-08] MEDS: HYDROCODONE/APAP 5-325MG TABLET GT PRN ×2 (06:25→13:30)
[2021-04-08] MEDS: HYDROGEN PEROXIDE 3% 118 ML BOTTLE TP SCH ×2 (07:32→21:24)
[2021-04-08 07:58] VITALS: BP 120/75
[2021-04-08] MEDS: ACETAMINOPHEN 650 MG/20 ML UDC- SA PATIENTS-PAIN ONLY GT SCH ×2 (08:48→20:30)
[2021-04-08] MEDS: TERAZOSIN 1 MG CAPSULE GT SCH (08:49)
[2021-04-08] MEDS: FAMOTIDINE 20 MG TABLET GT SCH ×2 (08:49→21:39)
[2021-04-08] MEDS: METOPROLOL TARTRATE 25 MG TABLET GT SCH ×2 (08:49→21:39)
[2021-04-08] MEDS: levETIRAcetam 500 MG/5 ML LIQUID UDC GT SCH ×2 (08:49→21:38)
[2021-04-08] MEDS: BACLOFEN 10 MG TABLET GT SCH ×2 (08:49→21:38)
[2021-04-08] MEDS: PHENOBARBITAL 97.2 MG TABLET GT SCH ×2 (08:49→21:39)
[2021-04-08] MEDS: AMANTADINE HCL 50 MG/5 ML GT SCH ×2 (08:49→21:39)
[2021-04-08] MEDS: VITAMINS A AND D OINT TP SCH ×2 (08:51→21:40)
[2021-04-08] MEDS: NYSTATIN CREAM 30 GM TUBE TP SCH (08:51)
[2021-04-08] MEDS: COD LIVER OIL/ZINC OXIDE OINT 113 GM TUBE TOP SCH ×2 (08:51→21:39)
[2021-04-08] MEDS: HEPARIN SODIUM,PORCINE 5,000 UNITS/ML VIAL SQ SCH ×2 (08:51→21:50)
[2021-04-08] MEDS: SODIUM HYPOCHLORITE 0.125% (QUARTER STRENGTH) 473 ML BOTTLE TP SCH (08:51)
[2021-04-08] MEDS: GLUCERNA 1.2 1000ML LIQUID GT PRN (14:28)
--- NOTE | 2021-04-08 16:33 | NUR ---
This REFUSE COLLECTOR received an email from patient's daughter Janis, stating that she and her grandfather would be available to participate in the IDT meeting on 04/12. This REFUSE COLLECTOR to contact them by phone during the meeting.
[2021-04-08] MEDS: MINERAL OIL/PETROLAT OPHT OINT 3.5 GM TUBE EACHEYE SCH (21:34)
[2021-04-08] MEDS: ATORVASTATIN 40 MG TABLET GT SCH (21:38)
[2021-04-08] MEDS: hydrALAZINE HCL 25 MG TABLET GT SCH (21:38)
[2021-04-08] MEDS: THIAMINE HCL 100 MG TABLET GT SCH (21:39)
[2021-04-08] MEDS: ASCORBIC ACID 500 MG TABLET GT SCH (21:39)
[2021-04-08 21:47] VITALS: BP 108/78
[2021-04-08 21:54] VITALS: BP 146/83
[2021-04-09] VITALS: BP 134/78
[2021-04-09] MEDS: BLOOD SUGAR DIAGNOSTIC 1 EACH STRIP VI SCH ×4 (00:55→17:25)
[2021-04-09] MEDS: INSULIN REGULAR, HUMAN 300 UNIT/3 ML VIAL SQ PRN ×4 (01:05→17:28)
[2021-04-09] MEDS: LEVALBUTEROL HCL 1.25 MG/0.5 ML NEB NEB SCH ×4 (01:58→19:32)
[2021-04-09] MEDS: IPRATROPIUM BROMIDE 0.5 MG/2.5 ML NEBU NEB SCH ×4 (01:58→19:32)
[2021-04-09] MEDS: ARGININE/GLUTAMINE/CALCIUM BMB 1 EACH POWD.PACK GT SCH ×2 (05:35→17:25)
[2021-04-09] MEDS: GLUCERNA 1.2 1000ML LIQUID GT PRN (05:36)
[2021-04-09 05:54] VITALS: BP 132/79
[2021-04-09 07:37] VITALS: BP 141/79
[2021-04-09] MEDS: HYDROGEN PEROXIDE 3% 118 ML BOTTLE TP SCH ×2 (08:05→21:00)
[2021-04-09] MEDS: ACETAMINOPHEN 650 MG/20 ML UDC- SA PATIENTS-PAIN ONLY GT SCH ×2 (08:40→20:30)
[2021-04-09] MEDS: levETIRAcetam 500 MG/5 ML LIQUID UDC GT SCH ×2 (08:40→21:47)
[2021-04-09] MEDS: TERAZOSIN 1 MG CAPSULE GT SCH (08:40)
[2021-04-09] MEDS: AMANTADINE HCL 50 MG/5 ML GT SCH ×2 (08:41→21:48)
[2021-04-09] MEDS: BACLOFEN 10 MG TABLET GT SCH ×2 (08:41→21:47)
[2021-04-09] MEDS: PHENOBARBITAL 97.2 MG TABLET GT SCH ×2 (08:41→21:48)
[2021-04-09] MEDS: METOPROLOL TARTRATE 25 MG TABLET GT SCH ×2 (08:41→21:48)
[2021-04-09] MEDS: FAMOTIDINE 20 MG TABLET GT SCH ×2 (08:41→21:48)
[2021-04-09] MEDS: VITAMINS A AND D OINT TP SCH ×2 (08:42→21:48)
[2021-04-09] MEDS: HEPARIN SODIUM,PORCINE 5,000 UNITS/ML VIAL SQ SCH ×2 (08:42→21:00)
[2021-04-09] MEDS: COD LIVER OIL/ZINC OXIDE OINT 113 GM TUBE TOP SCH ×2 (08:42→21:48)
[2021-04-09] MEDS: HYDROCODONE/APAP 5-325MG TABLET GT PRN ×2 (12:30→19:05)
[2021-04-09] MEDS: ATORVASTATIN 40 MG TABLET GT SCH (21:47)
[2021-04-09] MEDS: MINERAL OIL/PETROLAT OPHT OINT 3.5 GM TUBE EACHEYE SCH (21:47)
[2021-04-09] MEDS: hydrALAZINE HCL 25 MG TABLET GT SCH (21:47)
[2021-04-09] MEDS: ASCORBIC ACID 500 MG TABLET GT SCH (21:48)
[2021-04-09] MEDS: THIAMINE HCL 100 MG TABLET GT SCH (21:48)
[2021-04-09 23:06] VITALS: BP 155/86
[2021-04-10] MEDS: BLOOD SUGAR DIAGNOSTIC 1 EACH STRIP VI SCH ×4 (00:23→17:55)
[2021-04-10] MEDS: INSULIN REGULAR, HUMAN 300 UNIT/3 ML VIAL SQ PRN ×4 (00:32→17:56)
[2021-04-10] MEDS: GLUCERNA 1.2 1000ML LIQUID GT PRN ×2 (00:37→17:56)
[2021-04-10 00:38] VITALS: BP 140/82
[2021-04-10] MEDS: LEVALBUTEROL HCL 1.25 MG/0.5 ML NEB NEB SCH ×4 (01:20→20:23)
[2021-04-10] MEDS: IPRATROPIUM BROMIDE 0.5 MG/2.5 ML NEBU NEB SCH ×4 (01:20→20:23)
[2021-04-10] MEDS: ARGININE/GLUTAMINE/CALCIUM BMB 1 EACH POWD.PACK GT SCH ×2 (05:30→17:44)
[2021-04-10 07:49] VITALS: BP 135/82
[2021-04-10] MEDS: HYDROGEN PEROXIDE 3% 118 ML BOTTLE TP SCH ×2 (09:00→20:23)
[2021-04-10] MEDS: BACLOFEN 10 MG TABLET GT SCH ×2 (09:28→21:01)
[2021-04-10] MEDS: levETIRAcetam 500 MG/5 ML LIQUID UDC GT SCH ×2 (09:28→21:01)
[2021-04-10] MEDS: TERAZOSIN 1 MG CAPSULE GT SCH (09:28)
[2021-04-10] MEDS: ACETAMINOPHEN 650 MG/20 ML UDC- SA PATIENTS-PAIN ONLY GT SCH ×2 (09:28→21:00)
[2021-04-10] MEDS: AMANTADINE HCL 50 MG/5 ML GT SCH ×2 (09:29→21:05)
[2021-04-10] MEDS: FAMOTIDINE 20 MG TABLET GT SCH ×2 (09:29→21:02)
[2021-04-10] MEDS: METOPROLOL TARTRATE 25 MG TABLET GT SCH ×2 (09:29→21:02)
[2021-04-10] MEDS: PHENOBARBITAL 97.2 MG TABLET GT SCH ×2 (09:29→21:02)
[2021-04-10] MEDS: HEPARIN SODIUM,PORCINE 5,000 UNITS/ML VIAL SQ SCH ×2 (09:29→21:00)
[2021-04-10] MEDS: COD LIVER OIL/ZINC OXIDE OINT 113 GM TUBE TOP SCH ×2 (09:30→21:06)
[2021-04-10] MEDS: VITAMINS A AND D OINT TP SCH ×2 (09:30→21:06)
[2021-04-10] MEDS: MINERAL OIL/PETROLAT OPHT OINT 3.5 GM TUBE EACHEYE SCH (21:00)
[2021-04-10] MEDS: ATORVASTATIN 40 MG TABLET GT SCH (21:01)
[2021-04-10] MEDS: hydrALAZINE HCL 25 MG TABLET GT SCH (21:01)
[2021-04-10] MEDS: THIAMINE HCL 100 MG TABLET GT SCH (21:05)
[2021-04-10] MEDS: ASCORBIC ACID 500 MG TABLET GT SCH (21:05)
[2021-04-10 22:37] VITALS: BP 150/76
[2021-04-11] VITALS: BP 131/93
[2021-04-11] MEDS: BLOOD SUGAR DIAGNOSTIC 1 EACH STRIP VI SCH ×4 (00:40→17:34)
[2021-04-11] MEDS: IPRATROPIUM BROMIDE 0.5 MG/2.5 ML NEBU NEB SCH ×4 (00:54→19:29)
[2021-04-11] MEDS: LEVALBUTEROL HCL 1.25 MG/0.5 ML NEB NEB SCH ×4 (00:54→19:29)
[2021-04-11] MEDS: INSULIN REGULAR, HUMAN 300 UNIT/3 ML VIAL SQ PRN ×3 (01:57→12:26)
[2021-04-11] MEDS: ARGININE/GLUTAMINE/CALCIUM BMB 1 EACH POWD.PACK GT SCH ×2 (05:11→17:34)
[2021-04-11 06:00] VITALS: BP 144/84
[2021-04-11 07:25] VITALS: BP 123/81
[2021-04-11] MEDS: HYDROGEN PEROXIDE 3% 118 ML BOTTLE TP SCH ×2 (08:12→21:58)
[2021-04-11] MEDS: BACLOFEN 10 MG TABLET GT SCH ×2 (08:39→21:00)
[2021-04-11] MEDS: PHENOBARBITAL 97.2 MG TABLET GT SCH ×2 (08:39→21:00)
[2021-04-11] MEDS: TERAZOSIN 1 MG CAPSULE GT SCH (08:39)
[2021-04-11] MEDS: ACETAMINOPHEN 650 MG/20 ML UDC- SA PATIENTS-PAIN ONLY GT SCH ×2 (08:39→20:30)
[2021-04-11] MEDS: METOPROLOL TARTRATE 25 MG TABLET GT SCH ×2 (08:39→21:00)
[2021-04-11] MEDS: AMANTADINE HCL 50 MG/5 ML GT SCH ×2 (08:39→21:00)
[2021-04-11] MEDS: levETIRAcetam 500 MG/5 ML LIQUID UDC GT SCH ×2 (08:39→21:00)
[2021-04-11] MEDS: FAMOTIDINE 20 MG TABLET GT SCH ×2 (08:39→21:00)
[2021-04-11] MEDS: COD LIVER OIL/ZINC OXIDE OINT 113 GM TUBE TOP SCH ×2 (08:40→21:00)
[2021-04-11] MEDS: VITAMINS A AND D OINT TP SCH ×2 (08:41→21:00)
[2021-04-11] MEDS: HEPARIN SODIUM,PORCINE 5,000 UNITS/ML VIAL SQ SCH ×2 (08:44→21:00)
[2021-04-11 20:30] VITALS: BP 130/82
[2021-04-11] MEDS: ATORVASTATIN 40 MG TABLET GT SCH (21:00)
[2021-04-11] MEDS: THIAMINE HCL 100 MG TABLET GT SCH (21:00)
[2021-04-11] MEDS: ASCORBIC ACID 500 MG TABLET GT SCH (21:00)
[2021-04-11] MEDS: MINERAL OIL/PETROLAT OPHT OINT 3.5 GM TUBE EACHEYE SCH (21:00)
[2021-04-11] MEDS: hydrALAZINE HCL 25 MG TABLET GT SCH (21:00)
[2021-04-12] VITALS: BP 142/82
[2021-04-12] MEDS: LEVALBUTEROL HCL 1.25 MG/0.5 ML NEB NEB SCH ×4 (01:00→18:55)
[2021-04-12] MEDS: IPRATROPIUM BROMIDE 0.5 MG/2.5 ML NEBU NEB SCH ×4 (01:00→18:54)
[2021-04-12] MEDS: INSULIN REGULAR, HUMAN 300 UNIT/3 ML VIAL SQ PRN ×5 (01:05→23:26)
[2021-04-12] MEDS: ARGININE/GLUTAMINE/CALCIUM BMB 1 EACH POWD.PACK GT SCH ×2 (05:36→17:06)
[2021-04-12 06:00] VITALS: BP 126/95
[2021-04-12] MEDS: BLOOD SUGAR DIAGNOSTIC 1 EACH STRIP VI SCH ×5 (06:55→23:25)
[2021-04-12] MEDS: GLUCERNA 1.2 1000ML LIQUID GT PRN (06:58)
[2021-04-12 08:00] VITALS: BP 146/86
[2021-04-12] MEDS: HYDROGEN PEROXIDE 3% 118 ML BOTTLE TP SCH ×2 (09:00→21:38)
[2021-04-12] MEDS: ACETAMINOPHEN 650 MG/20 ML UDC- SA PATIENTS-PAIN ONLY GT SCH ×2 (09:12→20:30)
[2021-04-12] MEDS: HEPARIN SODIUM,PORCINE 5,000 UNITS/ML VIAL SQ SCH ×2 (09:13→21:28)
[2021-04-12] MEDS: BACLOFEN 10 MG TABLET GT SCH ×2 (09:13→21:25)
[2021-04-12] MEDS: levETIRAcetam 500 MG/5 ML LIQUID UDC GT SCH ×2 (09:13→21:25)
[2021-04-12] MEDS: METOPROLOL TARTRATE 25 MG TABLET GT SCH ×2 (09:13→21:26)
[2021-04-12] MEDS: COD LIVER OIL/ZINC OXIDE OINT 113 GM TUBE TOP SCH ×2 (09:13→21:28)
[2021-04-12] MEDS: FAMOTIDINE 20 MG TABLET GT SCH ×2 (09:13→21:26)
[2021-04-12] MEDS: TERAZOSIN 1 MG CAPSULE GT SCH (09:13)
[2021-04-12] MEDS: AMANTADINE HCL 50 MG/5 ML GT SCH ×2 (09:13→21:26)
[2021-04-12] MEDS: PHENOBARBITAL 97.2 MG TABLET GT SCH ×2 (09:13→21:26)
[2021-04-12] MEDS: VITAMINS A AND D OINT TP SCH ×2 (09:14→21:28)
--- NOTE | 2021-04-12 14:02 | NUR ---
INTERDISCIPLINARY PLAN OF CARE CONFERENCE was held today. Patient's daughter Janis participated in the meeting today, by speaker phone. This BIOMASS PLANT MANAGER attempted to contact patient's father too during the meeting, however his phone went directly to voicemail during both attempts to contact, and therefore he was not available to participate today. Dr. Peralta and the Interdisciplinary Team reviewed the current plan of care in detail. RN reported on patient's medical condition and ongoing would care. See RN IDT conference notes. Pharmacy reviewed patient's medications. No major changes in condition were reported by nursing or by any of the other disciplines. See all disciplines IDT notes and physician's progress notes for additional details. Janis stated not having any questions or concerns at this time.
[2021-04-12] MEDS: HYDROCODONE/APAP 5-325MG TABLET GT PRN (17:34)
[2021-04-12 20:51] VITALS: BP 142/78
[2021-04-12] MEDS: MINERAL OIL/PETROLAT OPHT OINT 3.5 GM TUBE EACHEYE SCH (21:23)
[2021-04-12] MEDS: hydrALAZINE HCL 25 MG TABLET GT SCH (21:24)
[2021-04-12] MEDS: ATORVASTATIN 40 MG TABLET GT SCH (21:25)
[2021-04-12] MEDS: THIAMINE HCL 100 MG TABLET GT SCH (21:26)
[2021-04-12] MEDS: ASCORBIC ACID 500 MG TABLET GT SCH (21:26)
[2021-04-13] MEDS: GLUCERNA 1.2 1000ML LIQUID GT PRN ×2 (00:30→21:26)
[2021-04-13] MEDS: LEVALBUTEROL HCL 1.25 MG/0.5 ML NEB NEB SCH ×4 (01:06→19:17)
[2021-04-13] MEDS: IPRATROPIUM BROMIDE 0.5 MG/2.5 ML NEBU NEB SCH ×4 (01:06→19:17)
[2021-04-13 04:00] VITALS: BP 139/76
[2021-04-13] MEDS: HYDROCODONE/APAP 5-325MG TABLET GT PRN (04:00)
[2021-04-13] MEDS: BLOOD SUGAR DIAGNOSTIC 1 EACH STRIP VI SCH ×4 (06:06→23:30)
[2021-04-13] MEDS: ARGININE/GLUTAMINE/CALCIUM BMB 1 EACH POWD.PACK GT SCH ×2 (06:06→18:12)
[2021-04-13] MEDS: INSULIN REGULAR, HUMAN 300 UNIT/3 ML VIAL SQ PRN ×4 (06:08→23:33)
[2021-04-13] MEDS: HYDROGEN PEROXIDE 3% 118 ML BOTTLE TP SCH ×2 (08:15→20:24)
[2021-04-13] MEDS: ACETAMINOPHEN 650 MG/20 ML UDC- SA PATIENTS-PAIN ONLY GT SCH ×2 (09:19→20:30)
[2021-04-13] MEDS: levETIRAcetam 500 MG/5 ML LIQUID UDC GT SCH ×2 (09:20→21:21)
[2021-04-13] MEDS: TERAZOSIN 1 MG CAPSULE GT SCH (09:20)
[2021-04-13] MEDS: BACLOFEN 10 MG TABLET GT SCH ×2 (09:20→21:21)
[2021-04-13] MEDS: AMANTADINE HCL 50 MG/5 ML GT SCH ×2 (09:21→21:22)
[2021-04-13] MEDS: COD LIVER OIL/ZINC OXIDE OINT 113 GM TUBE TOP SCH ×2 (09:21→21:23)
[2021-04-13] MEDS: FAMOTIDINE 20 MG TABLET GT SCH ×2 (09:21→21:22)
[2021-04-13] MEDS: METOPROLOL TARTRATE 25 MG TABLET GT SCH ×2 (09:21→21:22)
[2021-04-13] MEDS: VITAMINS A AND D OINT TP SCH ×2 (09:21→21:24)
[2021-04-13] MEDS: PHENOBARBITAL 97.2 MG TABLET GT SCH ×2 (09:21→21:22)
[2021-04-13] MEDS: HEPARIN SODIUM,PORCINE 5,000 UNITS/ML VIAL SQ SCH ×2 (09:24→21:23)
[2021-04-13 11:30] VITALS: BP 135/79
--- NOTE | 2021-04-13 14:00 | NUR ---
Covid 19 test negative,pt's daughter Kylie notified.
[2021-04-13 20:06] VITALS: BP 136/79
[2021-04-13] MEDS: hydrALAZINE HCL 25 MG TABLET GT SCH (21:20)
[2021-04-13] MEDS: MINERAL OIL/PETROLAT OPHT OINT 3.5 GM TUBE EACHEYE SCH (21:20)
[2021-04-13] MEDS: ATORVASTATIN 40 MG TABLET GT SCH (21:21)
[2021-04-13] MEDS: ASCORBIC ACID 500 MG TABLET GT SCH (21:23)
[2021-04-13] MEDS: THIAMINE HCL 100 MG TABLET GT SCH (21:23)
[2021-04-14] MEDS: LEVALBUTEROL HCL 1.25 MG/0.5 ML NEB NEB SCH ×4 (00:50→19:22)
[2021-04-14] MEDS: IPRATROPIUM BROMIDE 0.5 MG/2.5 ML NEBU NEB SCH ×4 (00:50→19:22)
[2021-04-14] MEDS: ARGININE/GLUTAMINE/CALCIUM BMB 1 EACH POWD.PACK GT SCH ×2 (05:56→17:42)
[2021-04-14] MEDS: BLOOD SUGAR DIAGNOSTIC 1 EACH STRIP VI SCH ×3 (05:56→17:45)
[2021-04-14] MEDS: INSULIN REGULAR, HUMAN 300 UNIT/3 ML VIAL SQ PRN ×3 (05:58→17:48)
[2021-04-14] MEDS: HYDROCODONE/APAP 5-325MG TABLET GT PRN (07:30)
[2021-04-14 07:36] VITALS: BP 151/82
[2021-04-14] MEDS: HYDROGEN PEROXIDE 3% 118 ML BOTTLE TP SCH ×2 (08:22→20:08)
[2021-04-14] MEDS: ACETAMINOPHEN 650 MG/20 ML UDC- SA PATIENTS-PAIN ONLY GT SCH ×2 (08:55→20:30)
[2021-04-14] MEDS: TERAZOSIN 1 MG CAPSULE GT SCH (08:56)
[2021-04-14] MEDS: levETIRAcetam 500 MG/5 ML LIQUID UDC GT SCH ×2 (08:56→21:25)
[2021-04-14] MEDS: AMANTADINE HCL 50 MG/5 ML GT SCH ×2 (08:57→21:26)
[2021-04-14] MEDS: FAMOTIDINE 20 MG TABLET GT SCH ×2 (08:57→21:26)
[2021-04-14] MEDS: PHENOBARBITAL 97.2 MG TABLET GT SCH ×2 (08:57→21:26)
[2021-04-14] MEDS: BACLOFEN 10 MG TABLET GT SCH ×2 (08:57→21:25)
[2021-04-14] MEDS: METOPROLOL TARTRATE 25 MG TABLET GT SCH ×2 (08:57→21:26)
[2021-04-14] MEDS: HEPARIN SODIUM,PORCINE 5,000 UNITS/ML VIAL SQ SCH ×2 (09:00→21:26)
[2021-04-14] MEDS: COD LIVER OIL/ZINC OXIDE OINT 113 GM TUBE TOP SCH ×2 (09:04→21:26)
[2021-04-14] MEDS: VITAMINS A AND D OINT TP SCH ×2 (09:04→21:27)
[2021-04-14 12:00] VITALS: BP 138/79
[2021-04-14 18:00] VITALS: BP 143/82
[2021-04-14 20:00] VITALS: BP 115/79
[2021-04-14] MEDS: hydrALAZINE HCL 25 MG TABLET GT SCH (21:25)
[2021-04-14] MEDS: ATORVASTATIN 40 MG TABLET GT SCH (21:25)
[2021-04-14] MEDS: MINERAL OIL/PETROLAT OPHT OINT 3.5 GM TUBE EACHEYE SCH (21:25)
[2021-04-14] MEDS: ASCORBIC ACID 500 MG TABLET GT SCH (21:26)
[2021-04-14] MEDS: THIAMINE HCL 100 MG TABLET GT SCH (21:26)
[2021-04-15] MEDS: BLOOD SUGAR DIAGNOSTIC 1 EACH STRIP VI SCH ×5 (00:12→23:14)
[2021-04-15] MEDS: INSULIN REGULAR, HUMAN 300 UNIT/3 ML VIAL SQ PRN ×5 (00:13→23:15)
[2021-04-15] MEDS: LEVALBUTEROL HCL 1.25 MG/0.5 ML NEB NEB SCH ×4 (00:44→19:35)
[2021-04-15] MEDS: IPRATROPIUM BROMIDE 0.5 MG/2.5 ML NEBU NEB SCH ×4 (00:44→19:35)
[2021-04-15] MEDS: ARGININE/GLUTAMINE/CALCIUM BMB 1 EACH POWD.PACK GT SCH ×2 (06:19→17:43)
[2021-04-15 08:05] VITALS: BP 135/69
[2021-04-15] MEDS: TERAZOSIN 1 MG CAPSULE GT SCH (08:56)
[2021-04-15] MEDS: ACETAMINOPHEN 650 MG/20 ML UDC- SA PATIENTS-PAIN ONLY GT SCH ×2 (08:56→20:30)
[2021-04-15] MEDS: levETIRAcetam 500 MG/5 ML LIQUID UDC GT SCH ×2 (08:57→20:53)
[2021-04-15] MEDS: FAMOTIDINE 20 MG TABLET GT SCH ×2 (08:58→20:53)
[2021-04-15] MEDS: BACLOFEN 10 MG TABLET GT SCH ×2 (08:58→20:53)
[2021-04-15] MEDS: METOPROLOL TARTRATE 25 MG TABLET GT SCH ×2 (08:58→20:53)
[2021-04-15] MEDS: AMANTADINE HCL 50 MG/5 ML GT SCH ×2 (08:59→20:53)
[2021-04-15] MEDS: PHENOBARBITAL 97.2 MG TABLET GT SCH ×2 (08:59→20:53)
[2021-04-15] MEDS: VITAMINS A AND D OINT TP SCH ×2 (09:00→21:28)
[2021-04-15] MEDS: COD LIVER OIL/ZINC OXIDE OINT 113 GM TUBE TOP SCH ×2 (09:00→21:27)
[2021-04-15] MEDS: HEPARIN SODIUM,PORCINE 5,000 UNITS/ML VIAL SQ SCH ×2 (09:00→20:54)
[2021-04-15] MEDS: HYDROGEN PEROXIDE 3% 118 ML BOTTLE TP SCH ×2 (09:41→19:35)
[2021-04-15] MEDS: GLUCERNA 1.2 1000ML LIQUID GT PRN (11:39)
[2021-04-15 18:00] VITALS: BP 144/76
[2021-04-15 20:00] VITALS: BP 121/71
[2021-04-15] MEDS ORDERED: NYSTATIN CREAM 30 GM TUBE TP PRN (20:15)
[2021-04-15] MEDS ORDERED: TRIAMCINOLONE ACET 0.1% CREAM 15 GM TUBE TP PRN (20:15)
[2021-04-15] MEDS ORDERED: SODIUM HYPOCHLORITE 0.125% (QUARTER STRENGTH) 473 ML BOTTLE TP PRN (20:15)
[2021-04-15] MEDS: MINERAL OIL/PETROLAT OPHT OINT 3.5 GM TUBE EACHEYE SCH (20:52)
[2021-04-15] MEDS: ASCORBIC ACID 500 MG TABLET GT SCH (20:53)
[2021-04-15] MEDS: THIAMINE HCL 100 MG TABLET GT SCH (20:53)
[2021-04-15] MEDS: hydrALAZINE HCL 25 MG TABLET GT SCH (20:53)
[2021-04-15] MEDS: ATORVASTATIN 40 MG TABLET GT SCH (20:53)
[2021-04-15] MEDS: TRIAMCINOLONE ACET 0.1% CREAM 15 GM TUBE TP SCH (21:27)
[2021-04-15] MEDS: SODIUM HYPOCHLORITE 0.125% (QUARTER STRENGTH) 473 ML BOTTLE TP SCH (21:27)
[2021-04-15] MEDS: NYSTATIN CREAM 30 GM TUBE TP SCH (21:28)
[2021-04-16 00:01] VITALS: BP 141/85
[2021-04-16] MEDS: LEVALBUTEROL HCL 1.25 MG/0.5 ML NEB NEB SCH ×4 (01:21→19:00)
[2021-04-16] MEDS: IPRATROPIUM BROMIDE 0.5 MG/2.5 ML NEBU NEB SCH ×4 (01:21→19:00)
[2021-04-16] MEDS: GLUCERNA 1.2 1000ML LIQUID GT PRN ×2 (02:33→23:03)
--- NOTE | 2021-04-16 05:15 | NUR ---
Noted patient's Patiño catheter drainage bag was cloudy with sediments, flushed Patiño catheter as ordered, changed Patiño catheter bag as ordered, kept patient clean and comfortable, will continue monitor.
[2021-04-16] MEDS: BLOOD SUGAR DIAGNOSTIC 1 EACH STRIP VI SCH ×4 (05:40→23:17)
[2021-04-16] MEDS: INSULIN REGULAR, HUMAN 300 UNIT/3 ML VIAL SQ PRN ×4 (05:40→23:17)
[2021-04-16] MEDS: ARGININE/GLUTAMINE/CALCIUM BMB 1 EACH POWD.PACK GT SCH ×2 (05:40→17:35)
[2021-04-16] MEDS: HYDROCODONE/APAP 5-325MG TABLET GT PRN (05:45)
[2021-04-16 06:06] VITALS: BP 148/90
[2021-04-16 07:57] VITALS: BP 137/78
[2021-04-16] MEDS: ACETAMINOPHEN 650 MG/20 ML UDC- SA PATIENTS-PAIN ONLY GT SCH ×2 (08:21→20:28)
[2021-04-16] MEDS: TERAZOSIN 1 MG CAPSULE GT SCH (08:22)
[2021-04-16] MEDS: levETIRAcetam 500 MG/5 ML LIQUID UDC GT SCH ×2 (08:22→20:28)
[2021-04-16] MEDS: METOPROLOL TARTRATE 25 MG TABLET GT SCH ×2 (08:23→20:28)
[2021-04-16] MEDS: FAMOTIDINE 20 MG TABLET GT SCH ×2 (08:23→20:28)
[2021-04-16] MEDS: BACLOFEN 10 MG TABLET GT SCH ×2 (08:23→20:28)
[2021-04-16] MEDS: PHENOBARBITAL 97.2 MG TABLET GT SCH ×2 (08:24→20:28)
[2021-04-16] MEDS: AMANTADINE HCL 50 MG/5 ML GT SCH ×2 (08:25→20:28)
[2021-04-16] MEDS: HEPARIN SODIUM,PORCINE 5,000 UNITS/ML VIAL SQ SCH ×2 (08:26→21:19)
[2021-04-16] MEDS: COD LIVER OIL/ZINC OXIDE OINT 113 GM TUBE TOP SCH ×2 (08:31→21:18)
[2021-04-16] MEDS: VITAMINS A AND D OINT TP SCH ×2 (08:32→21:18)
[2021-04-16] MEDS: HYDROGEN PEROXIDE 3% 118 ML BOTTLE TP SCH ×2 (08:52→21:17)
[2021-04-16] MEDS: TRIAMCINOLONE ACET 0.1% CREAM 15 GM TUBE TP SCH ×2 (09:00→21:18)
[2021-04-16] MEDS: NYSTATIN CREAM 30 GM TUBE TP SCH ×2 (09:00→21:18)
[2021-04-16] MEDS: SODIUM HYPOCHLORITE 0.125% (QUARTER STRENGTH) 473 ML BOTTLE TP SCH ×2 (09:00→21:18)
[2021-04-16 12:03] VITALS: BP 128/80
[2021-04-16 18:13] VITALS: BP 135/76
[2021-04-16 19:58] VITALS: BP 141/60
[2021-04-16] MEDS: ATORVASTATIN 40 MG TABLET GT SCH (20:28)
[2021-04-16] MEDS: hydrALAZINE HCL 25 MG TABLET GT SCH (20:28)
[2021-04-16] MEDS: ASCORBIC ACID 500 MG TABLET GT SCH (20:28)
[2021-04-16] MEDS: MINERAL OIL/PETROLAT OPHT OINT 3.5 GM TUBE EACHEYE SCH (20:28)
[2021-04-16] MEDS: THIAMINE HCL 100 MG TABLET GT SCH (20:28)
[2021-04-17 00:12] VITALS: BP 152/81
[2021-04-17] MEDS: LEVALBUTEROL HCL 1.25 MG/0.5 ML NEB NEB SCH ×4 (00:43→19:50)
[2021-04-17] MEDS: IPRATROPIUM BROMIDE 0.5 MG/2.5 ML NEBU NEB SCH ×4 (00:43→19:50)
[2021-04-17] MEDS: INSULIN REGULAR, HUMAN 300 UNIT/3 ML VIAL SQ PRN ×4 (05:56→23:25)
[2021-04-17] MEDS: BLOOD SUGAR DIAGNOSTIC 1 EACH STRIP VI SCH ×4 (05:56→23:24)
[2021-04-17] MEDS: ARGININE/GLUTAMINE/CALCIUM BMB 1 EACH POWD.PACK GT SCH ×2 (05:56→18:17)
[2021-04-17 06:22] VITALS: BP 155/90
[2021-04-17 07:43] VITALS: BP 138/94
[2021-04-17] MEDS: HYDROGEN PEROXIDE 3% 118 ML BOTTLE TP SCH ×2 (08:10→21:37)
[2021-04-17] MEDS: ACETAMINOPHEN 650 MG/20 ML UDC- SA PATIENTS-PAIN ONLY GT SCH ×2 (08:30→20:17)
[2021-04-17] MEDS: SODIUM HYPOCHLORITE 0.125% (QUARTER STRENGTH) 473 ML BOTTLE TP SCH ×2 (09:33→21:24)
[2021-04-17] MEDS: TRIAMCINOLONE ACET 0.1% CREAM 15 GM TUBE TP SCH ×2 (09:33→21:24)
[2021-04-17] MEDS: COD LIVER OIL/ZINC OXIDE OINT 113 GM TUBE TOP SCH ×2 (09:33→21:23)
[2021-04-17] MEDS: AMANTADINE HCL 50 MG/5 ML GT SCH ×2 (09:33→20:18)
[2021-04-17] MEDS: FAMOTIDINE 20 MG TABLET GT SCH ×2 (09:33→20:17)
[2021-04-17] MEDS: TERAZOSIN 1 MG CAPSULE GT SCH (09:33)
[2021-04-17] MEDS: METOPROLOL TARTRATE 25 MG TABLET GT SCH ×2 (09:33→20:17)
[2021-04-17] MEDS: BACLOFEN 10 MG TABLET GT SCH ×2 (09:33→20:17)
[2021-04-17] MEDS: NYSTATIN CREAM 30 GM TUBE TP SCH ×2 (09:33→21:24)
[2021-04-17] MEDS: levETIRAcetam 500 MG/5 ML LIQUID UDC GT SCH ×2 (09:33→20:17)
[2021-04-17] MEDS: VITAMINS A AND D OINT TP SCH ×2 (09:34→21:24)
[2021-04-17] MEDS: HEPARIN SODIUM,PORCINE 5,000 UNITS/ML VIAL SQ SCH ×2 (09:36→20:47)
[2021-04-17] MEDS: PHENOBARBITAL 97.2 MG TABLET GT SCH ×2 (09:37→20:17)
[2021-04-17] MEDS: hydrALAZINE HCL 25 MG TABLET GT SCH (20:17)
[2021-04-17] MEDS: MINERAL OIL/PETROLAT OPHT OINT 3.5 GM TUBE EACHEYE SCH (20:17)
[2021-04-17] MEDS: ATORVASTATIN 40 MG TABLET GT SCH (20:17)
[2021-04-17] MEDS: ASCORBIC ACID 500 MG TABLET GT SCH (20:18)
[2021-04-17] MEDS: THIAMINE HCL 100 MG TABLET GT SCH (20:18)
[2021-04-17 20:57] VITALS: BP 140/90
[2021-04-17] MEDS: HYDROCODONE/APAP 5-325MG TABLET GT PRN (23:28)
[2021-04-18 00:01] VITALS: BP 138/72
[2021-04-18] MEDS: IPRATROPIUM BROMIDE 0.5 MG/2.5 ML NEBU NEB SCH ×4 (02:21→18:59)
[2021-04-18] MEDS: LEVALBUTEROL HCL 1.25 MG/0.5 ML NEB NEB SCH ×4 (02:21→18:59)
[2021-04-18] MEDS: BLOOD SUGAR DIAGNOSTIC 1 EACH STRIP VI SCH ×3 (05:42→17:15)
[2021-04-18] MEDS: ARGININE/GLUTAMINE/CALCIUM BMB 1 EACH POWD.PACK GT SCH ×2 (05:42→17:16)
[2021-04-18] MEDS: INSULIN REGULAR, HUMAN 300 UNIT/3 ML VIAL SQ PRN ×3 (05:42→17:16)
[2021-04-18 06:26] VITALS: BP 148/85
[2021-04-18 07:45] VITALS: BP 147/87
[2021-04-18 08:00] VITALS: BP 147/87
[2021-04-18] MEDS: METOPROLOL TARTRATE 25 MG TABLET GT SCH ×2 (08:21→21:32)
[2021-04-18] MEDS: PHENOBARBITAL 97.2 MG TABLET GT SCH ×2 (08:34→21:32)
[2021-04-18] MEDS: TERAZOSIN 1 MG CAPSULE GT SCH (08:34)
[2021-04-18] MEDS: BACLOFEN 10 MG TABLET GT SCH ×2 (08:34→21:30)
[2021-04-18] MEDS: FAMOTIDINE 20 MG TABLET GT SCH ×2 (08:34→21:32)
[2021-04-18] MEDS: ACETAMINOPHEN 650 MG/20 ML UDC- SA PATIENTS-PAIN ONLY GT SCH ×2 (08:34→21:28)
[2021-04-18] MEDS: AMANTADINE HCL 50 MG/5 ML GT SCH ×2 (08:34→21:33)
[2021-04-18] MEDS: levETIRAcetam 500 MG/5 ML LIQUID UDC GT SCH ×2 (08:34→21:30)
[2021-04-18] MEDS: NYSTATIN CREAM 30 GM TUBE TP SCH ×2 (08:35→21:35)
[2021-04-18] MEDS: COD LIVER OIL/ZINC OXIDE OINT 113 GM TUBE TOP SCH ×2 (08:35→21:35)
[2021-04-18] MEDS: VITAMINS A AND D OINT TP SCH ×2 (08:35→21:35)
[2021-04-18] MEDS: SODIUM HYPOCHLORITE 0.125% (QUARTER STRENGTH) 473 ML BOTTLE TP SCH ×2 (08:35→21:35)
[2021-04-18] MEDS: TRIAMCINOLONE ACET 0.1% CREAM 15 GM TUBE TP SCH ×2 (08:35→21:35)
[2021-04-18] MEDS: HEPARIN SODIUM,PORCINE 5,000 UNITS/ML VIAL SQ SCH ×2 (08:35→21:35)
[2021-04-18] MEDS: HYDROGEN PEROXIDE 3% 118 ML BOTTLE TP SCH ×2 (09:14→21:00)
[2021-04-18 12:01] VITALS: BP 125/72
[2021-04-18] MEDS: HYDROCODONE/APAP 5-325MG TABLET GT PRN (17:16)
[2021-04-18 20:39] VITALS: BP 140/62
[2021-04-18] MEDS: hydrALAZINE HCL 25 MG TABLET GT SCH (21:29)
[2021-04-18] MEDS: MINERAL OIL/PETROLAT OPHT OINT 3.5 GM TUBE EACHEYE SCH (21:29)
[2021-04-18] MEDS: ATORVASTATIN 40 MG TABLET GT SCH (21:31)
[2021-04-18] MEDS: ASCORBIC ACID 500 MG TABLET GT SCH (21:34)
[2021-04-18] MEDS: THIAMINE HCL 100 MG TABLET GT SCH (21:34)
[2021-04-19] VITALS: BP 141/75
[2021-04-19] MEDS: BLOOD SUGAR DIAGNOSTIC 1 EACH STRIP VI SCH ×5 (00:25→23:29)
[2021-04-19] MEDS: INSULIN REGULAR, HUMAN 300 UNIT/3 ML VIAL SQ PRN ×4 (00:26→23:29)
[2021-04-19] MEDS: IPRATROPIUM BROMIDE 0.5 MG/2.5 ML NEBU NEB SCH ×4 (01:15→19:35)
[2021-04-19] MEDS: LEVALBUTEROL HCL 1.25 MG/0.5 ML NEB NEB SCH ×4 (01:15→19:35)
[2021-04-19] MEDS: HYDROCODONE/APAP 5-325MG TABLET GT PRN ×3 (04:07→18:04)
[2021-04-19] MEDS: ARGININE/GLUTAMINE/CALCIUM BMB 1 EACH POWD.PACK GT SCH ×2 (06:20→17:30)
[2021-04-19 06:22] VITALS: BP 139/76
[2021-04-19 07:29] VITALS: BP 147/90
[2021-04-19] MEDS: TERAZOSIN 1 MG CAPSULE GT SCH (08:49)
[2021-04-19] MEDS: ACETAMINOPHEN 650 MG/20 ML UDC- SA PATIENTS-PAIN ONLY GT SCH ×2 (08:49→21:02)
[2021-04-19] MEDS: levETIRAcetam 500 MG/5 ML LIQUID UDC GT SCH ×2 (08:49→21:04)
[2021-04-19] MEDS: PHENOBARBITAL 97.2 MG TABLET GT SCH ×2 (08:50→21:05)
[2021-04-19] MEDS: FAMOTIDINE 20 MG TABLET GT SCH ×2 (08:50→21:05)
[2021-04-19] MEDS: BACLOFEN 10 MG TABLET GT SCH ×2 (08:50→21:04)
[2021-04-19] MEDS: HEPARIN SODIUM,PORCINE 5,000 UNITS/ML VIAL SQ SCH ×2 (08:50→21:06)
[2021-04-19] MEDS: METOPROLOL TARTRATE 25 MG TABLET GT SCH ×2 (08:50→21:04)
[2021-04-19] MEDS: AMANTADINE HCL 50 MG/5 ML GT SCH ×2 (08:50→21:05)
[2021-04-19] MEDS: COD LIVER OIL/ZINC OXIDE OINT 113 GM TUBE TOP SCH ×2 (08:50→21:06)
[2021-04-19] MEDS: NYSTATIN CREAM 30 GM TUBE TP SCH ×2 (08:51→21:07)
[2021-04-19] MEDS: VITAMINS A AND D OINT TP SCH ×2 (08:51→21:07)
[2021-04-19] MEDS: SODIUM HYPOCHLORITE 0.125% (QUARTER STRENGTH) 473 ML BOTTLE TP SCH ×2 (08:51→21:06)
[2021-04-19] MEDS: TRIAMCINOLONE ACET 0.1% CREAM 15 GM TUBE TP SCH ×2 (08:51→21:07)
[2021-04-19] MEDS: HYDROGEN PEROXIDE 3% 118 ML BOTTLE TP SCH ×2 (10:00→21:00)
[2021-04-19] MEDS: GLUCERNA 1.2 1000ML LIQUID GT PRN (12:06)
[2021-04-19 20:21] VITALS: BP 135/80
[2021-04-19] MEDS: HYDROGEN PEROXIDE 3% 118 ML BOTTLE TP PRN (20:53)
[2021-04-19] MEDS: MINERAL OIL/PETROLAT OPHT OINT 3.5 GM TUBE EACHEYE SCH (21:02)
[2021-04-19] MEDS: hydrALAZINE HCL 25 MG TABLET GT SCH (21:03)
[2021-04-19] MEDS: ATORVASTATIN 40 MG TABLET GT SCH (21:04)
[2021-04-19] MEDS: THIAMINE HCL 100 MG TABLET GT SCH (21:05)
[2021-04-19] MEDS: ASCORBIC ACID 500 MG TABLET GT SCH (21:05)
[2021-04-20] VITALS: BP 138/75
[2021-04-20] MEDS: IPRATROPIUM BROMIDE 0.5 MG/2.5 ML NEBU NEB SCH ×4 (01:02→18:54)
[2021-04-20] MEDS: LEVALBUTEROL HCL 1.25 MG/0.5 ML NEB NEB SCH ×4 (01:02→18:54)
[2021-04-20] MEDS: ARGININE/GLUTAMINE/CALCIUM BMB 1 EACH POWD.PACK GT SCH ×2 (05:53→18:26)
[2021-04-20] MEDS: BLOOD SUGAR DIAGNOSTIC 1 EACH STRIP VI SCH ×4 (05:54→23:25)
[2021-04-20] MEDS: INSULIN REGULAR, HUMAN 300 UNIT/3 ML VIAL SQ PRN ×4 (05:54→23:27)
[2021-04-20 06:15] VITALS: BP 140/78
[2021-04-20] MEDS: ACETAMINOPHEN 650 MG/20 ML UDC- SA PATIENTS-PAIN ONLY GT SCH ×2 (08:30→20:30)
[2021-04-20 08:37] VITALS: BP 159/89
[2021-04-20] MEDS: HYDROGEN PEROXIDE 3% 118 ML BOTTLE TP SCH ×2 (08:59→21:30)
[2021-04-20] MEDS: VITAMINS A AND D OINT TP SCH ×2 (09:00→21:49)
[2021-04-20] MEDS: HEPARIN SODIUM,PORCINE 5,000 UNITS/ML VIAL SQ SCH ×2 (09:00→21:43)
[2021-04-20] MEDS: AMANTADINE HCL 50 MG/5 ML GT SCH ×2 (09:00→21:40)
[2021-04-20] MEDS: FAMOTIDINE 20 MG TABLET GT SCH ×2 (09:00→21:40)
[2021-04-20] MEDS: levETIRAcetam 500 MG/5 ML LIQUID UDC GT SCH ×2 (09:00→21:38)
[2021-04-20] MEDS: BACLOFEN 10 MG TABLET GT SCH ×2 (09:00→21:39)
[2021-04-20] MEDS: PHENOBARBITAL 97.2 MG TABLET GT SCH ×2 (09:00→21:40)
[2021-04-20] MEDS: COD LIVER OIL/ZINC OXIDE OINT 113 GM TUBE TOP SCH ×2 (09:00→21:48)
[2021-04-20] MEDS: TERAZOSIN 1 MG CAPSULE GT SCH (09:00)
[2021-04-20] MEDS: SODIUM HYPOCHLORITE 0.125% (QUARTER STRENGTH) 473 ML BOTTLE TP SCH ×2 (09:00→21:49)
[2021-04-20] MEDS: NYSTATIN CREAM 30 GM TUBE TP SCH ×2 (09:00→21:49)
[2021-04-20] MEDS: TRIAMCINOLONE ACET 0.1% CREAM 15 GM TUBE TP SCH ×2 (09:00→21:49)
[2021-04-20] MEDS: METOPROLOL TARTRATE 25 MG TABLET GT SCH ×2 (09:00→21:40)
--- NOTE | 2021-04-20 17:00 | NUR ---
Covid 19 test negative,pt's daughter Kylie notified.
[2021-04-20 20:05] VITALS: BP 143/78
[2021-04-20] MEDS: MINERAL OIL/PETROLAT OPHT OINT 3.5 GM TUBE EACHEYE SCH (21:38)
[2021-04-20] MEDS: hydrALAZINE HCL 25 MG TABLET GT SCH (21:38)
[2021-04-20] MEDS: ATORVASTATIN 40 MG TABLET GT SCH (21:39)
[2021-04-20] MEDS: ASCORBIC ACID 500 MG TABLET GT SCH (21:42)
[2021-04-20] MEDS: THIAMINE HCL 100 MG TABLET GT SCH (21:42)
[2021-04-20 23:31] VITALS: BP 125/67
[2021-04-21] MEDS: IPRATROPIUM BROMIDE 0.5 MG/2.5 ML NEBU NEB SCH ×4 (01:11→19:38)
[2021-04-21] MEDS: LEVALBUTEROL HCL 1.25 MG/0.5 ML NEB NEB SCH ×4 (01:11→19:38)
[2021-04-21] MEDS: ARGININE/GLUTAMINE/CALCIUM BMB 1 EACH POWD.PACK GT SCH ×2 (05:53→17:38)
[2021-04-21] MEDS: BLOOD SUGAR DIAGNOSTIC 1 EACH STRIP VI SCH ×3 (05:53→17:38)
[2021-04-21] MEDS: INSULIN REGULAR, HUMAN 300 UNIT/3 ML VIAL SQ PRN ×3 (05:57→17:40)
[2021-04-21 06:23] VITALS: BP 138/75
[2021-04-21 07:49] VITALS: BP 159/87
[2021-04-21] MEDS: HYDROGEN PEROXIDE 3% 118 ML BOTTLE TP SCH ×2 (07:53→19:38)
[2021-04-21] MEDS: TERAZOSIN 1 MG CAPSULE GT SCH (08:25)
[2021-04-21] MEDS: levETIRAcetam 500 MG/5 ML LIQUID UDC GT SCH ×2 (08:25→21:44)
[2021-04-21] MEDS: BACLOFEN 10 MG TABLET GT SCH ×2 (08:25→21:44)
[2021-04-21] MEDS: METOPROLOL TARTRATE 25 MG TABLET GT SCH ×2 (08:26→21:45)
[2021-04-21] MEDS: PHENOBARBITAL 97.2 MG TABLET GT SCH ×2 (08:26→21:45)
[2021-04-21] MEDS: FAMOTIDINE 20 MG TABLET GT SCH ×2 (08:26→21:45)
[2021-04-21] MEDS: COD LIVER OIL/ZINC OXIDE OINT 113 GM TUBE TOP SCH ×2 (08:27→21:48)
[2021-04-21] MEDS: AMANTADINE HCL 50 MG/5 ML GT SCH ×2 (08:27→21:45)
[2021-04-21] MEDS: HEPARIN SODIUM,PORCINE 5,000 UNITS/ML VIAL SQ SCH ×2 (08:27→21:46)
[2021-04-21] MEDS: ACETAMINOPHEN 650 MG/20 ML UDC- SA PATIENTS-PAIN ONLY GT SCH ×2 (08:36→20:30)
[2021-04-21] MEDS: VITAMINS A AND D OINT TP SCH ×2 (09:00→21:49)
[2021-04-21] MEDS: TRIAMCINOLONE ACET 0.1% CREAM 15 GM TUBE TP SCH ×2 (09:44→21:49)
[2021-04-21] MEDS: SODIUM HYPOCHLORITE 0.125% (QUARTER STRENGTH) 473 ML BOTTLE TP SCH ×2 (09:45→21:48)
[2021-04-21] MEDS: NYSTATIN CREAM 30 GM TUBE TP SCH ×2 (09:45→21:49)
[2021-04-21 12:16] VITALS: BP 143/80
[2021-04-21 18:25] VITALS: BP 140/80
[2021-04-21 20:00] VITALS: BP 130/71
[2021-04-21] MEDS: MINERAL OIL/PETROLAT OPHT OINT 3.5 GM TUBE EACHEYE SCH (21:42)
[2021-04-21] MEDS: hydrALAZINE HCL 25 MG TABLET GT SCH (21:43)
[2021-04-21] MEDS: ATORVASTATIN 40 MG TABLET GT SCH (21:45)
[2021-04-21] MEDS: THIAMINE HCL 100 MG TABLET GT SCH (21:46)
[2021-04-21] MEDS: ASCORBIC ACID 500 MG TABLET GT SCH (21:46)
[2021-04-22] MEDS: BLOOD SUGAR DIAGNOSTIC 1 EACH STRIP VI SCH ×5 (00:14→23:43)
[2021-04-22 00:15] VITALS: BP 140/81
[2021-04-22] MEDS: INSULIN REGULAR, HUMAN 300 UNIT/3 ML VIAL SQ PRN ×5 (00:15→23:46)
[2021-04-22] MEDS: GLUCERNA 1.2 1000ML LIQUID GT PRN ×2 (00:30→18:08)
[2021-04-22] MEDS: IPRATROPIUM BROMIDE 0.5 MG/2.5 ML NEBU NEB SCH ×4 (01:48→19:28)
[2021-04-22] MEDS: LEVALBUTEROL HCL 1.25 MG/0.5 ML NEB NEB SCH ×4 (01:48→19:28)
[2021-04-22] MEDS: ARGININE/GLUTAMINE/CALCIUM BMB 1 EACH POWD.PACK GT SCH ×2 (06:00→18:07)
[2021-04-22 06:15] VITALS: BP 131/79
[2021-04-22 07:39] VITALS: BP 126/82
[2021-04-22] MEDS: TERAZOSIN 1 MG CAPSULE GT SCH (08:46)
[2021-04-22] MEDS: ACETAMINOPHEN 650 MG/20 ML UDC- SA PATIENTS-PAIN ONLY GT SCH ×2 (08:46→20:30)
[2021-04-22] MEDS: levETIRAcetam 500 MG/5 ML LIQUID UDC GT SCH ×2 (08:47→21:00)
[2021-04-22] MEDS: BACLOFEN 10 MG TABLET GT SCH ×2 (08:47→21:00)
[2021-04-22] MEDS: FAMOTIDINE 20 MG TABLET GT SCH ×2 (08:48→21:00)
[2021-04-22] MEDS: METOPROLOL TARTRATE 25 MG TABLET GT SCH ×2 (08:48→21:00)
[2021-04-22] MEDS: AMANTADINE HCL 50 MG/5 ML GT SCH ×2 (08:48→21:00)
[2021-04-22] MEDS: PHENOBARBITAL 97.2 MG TABLET GT SCH ×2 (08:48→21:00)
[2021-04-22] MEDS: COD LIVER OIL/ZINC OXIDE OINT 113 GM TUBE TOP SCH ×2 (08:49→21:00)
[2021-04-22] MEDS: HEPARIN SODIUM,PORCINE 5,000 UNITS/ML VIAL SQ SCH ×2 (08:49→21:00)
[2021-04-22] MEDS: HYDROGEN PEROXIDE 3% 118 ML BOTTLE TP SCH ×2 (09:00→19:28)
[2021-04-22] MEDS: NYSTATIN CREAM 30 GM TUBE TP SCH ×2 (09:00→21:00)
[2021-04-22] MEDS: VITAMINS A AND D OINT TP SCH ×2 (09:00→21:00)
[2021-04-22] MEDS: TRIAMCINOLONE ACET 0.1% CREAM 15 GM TUBE TP SCH ×2 (09:55→21:00)
[2021-04-22] MEDS: SODIUM HYPOCHLORITE 0.125% (QUARTER STRENGTH) 473 ML BOTTLE TP SCH ×2 (09:55→21:00)
[2021-04-22 12:01] VITALS: BP 125/85
[2021-04-22 18:00] VITALS: BP 142/85
[2021-04-22 20:00] VITALS: BP 136/75
[2021-04-22] MEDS: THIAMINE HCL 100 MG TABLET GT SCH (21:00)
[2021-04-22] MEDS: ASCORBIC ACID 500 MG TABLET GT SCH (21:00)
[2021-04-22] MEDS: hydrALAZINE HCL 25 MG TABLET GT SCH (21:00)
[2021-04-22] MEDS: ATORVASTATIN 40 MG TABLET GT SCH (21:00)
[2021-04-22] MEDS: MINERAL OIL/PETROLAT OPHT OINT 3.5 GM TUBE EACHEYE SCH (21:00)
[2021-04-23] MEDS: IPRATROPIUM BROMIDE 0.5 MG/2.5 ML NEBU NEB SCH ×4 (02:40→20:46)
[2021-04-23] MEDS: LEVALBUTEROL HCL 1.25 MG/0.5 ML NEB NEB SCH ×4 (02:41→20:47)
[2021-04-23] MEDS: ARGININE/GLUTAMINE/CALCIUM BMB 1 EACH POWD.PACK GT SCH ×2 (05:12→17:34)
[2021-04-23] MEDS: BLOOD SUGAR DIAGNOSTIC 1 EACH STRIP VI SCH ×3 (05:12→17:34)
[2021-04-23] MEDS: INSULIN REGULAR, HUMAN 300 UNIT/3 ML VIAL SQ PRN ×3 (05:26→17:35)
[2021-04-23 06:06] VITALS: BP 143/71
[2021-04-23 07:52] VITALS: BP 148/86
[2021-04-23] MEDS: ACETAMINOPHEN 650 MG/20 ML UDC- SA PATIENTS-PAIN ONLY GT SCH ×2 (08:50→20:30)
[2021-04-23] MEDS: levETIRAcetam 500 MG/5 ML LIQUID UDC GT SCH ×2 (08:51→21:41)
[2021-04-23] MEDS: BACLOFEN 10 MG TABLET GT SCH ×2 (08:51→21:41)
[2021-04-23] MEDS: TERAZOSIN 1 MG CAPSULE GT SCH (08:51)
[2021-04-23] MEDS: PHENOBARBITAL 97.2 MG TABLET GT SCH ×2 (08:52→21:42)
[2021-04-23] MEDS: METOPROLOL TARTRATE 25 MG TABLET GT SCH ×2 (08:52→21:42)
[2021-04-23] MEDS: AMANTADINE HCL 50 MG/5 ML GT SCH ×2 (08:52→21:45)
[2021-04-23] MEDS: FAMOTIDINE 20 MG TABLET GT SCH ×2 (08:52→21:42)
[2021-04-23] MEDS: HEPARIN SODIUM,PORCINE 5,000 UNITS/ML VIAL SQ SCH ×2 (08:53→21:00)
[2021-04-23] MEDS: COD LIVER OIL/ZINC OXIDE OINT 113 GM TUBE TOP SCH ×2 (08:53→21:45)
[2021-04-23] MEDS: VITAMINS A AND D OINT TP SCH ×2 (09:00→21:47)
[2021-04-23] MEDS: HYDROGEN PEROXIDE 3% 118 ML BOTTLE TP SCH ×2 (09:15→21:49)
[2021-04-23] MEDS: TRIAMCINOLONE ACET 0.1% CREAM 15 GM TUBE TP SCH ×2 (09:55→21:47)
[2021-04-23] MEDS: NYSTATIN CREAM 30 GM TUBE TP SCH ×2 (09:55→21:47)
[2021-04-23] MEDS: SODIUM HYPOCHLORITE 0.125% (QUARTER STRENGTH) 473 ML BOTTLE TP SCH ×2 (09:55→21:47)
[2021-04-23 12:30] VITALS: BP 128/68
[2021-04-23 18:30] VITALS: BP 135/82
[2021-04-23 20:15] VITALS: BP 130/73
[2021-04-23] MEDS: MINERAL OIL/PETROLAT OPHT OINT 3.5 GM TUBE EACHEYE SCH (21:39)
[2021-04-23] MEDS: hydrALAZINE HCL 25 MG TABLET GT SCH (21:40)
[2021-04-23] MEDS: ATORVASTATIN 40 MG TABLET GT SCH (21:42)
[2021-04-23] MEDS: ASCORBIC ACID 500 MG TABLET GT SCH (21:45)
[2021-04-23] MEDS: THIAMINE HCL 100 MG TABLET GT SCH (21:45)
[2021-04-24] MEDS: BLOOD SUGAR DIAGNOSTIC 1 EACH STRIP VI SCH ×4 (00:40→17:20)
[2021-04-24] MEDS: INSULIN REGULAR, HUMAN 300 UNIT/3 ML VIAL SQ PRN ×4 (00:45→17:21)
[2021-04-24 00:48] VITALS: BP 118/69
[2021-04-24] MEDS: IPRATROPIUM BROMIDE 0.5 MG/2.5 ML NEBU NEB SCH ×4 (01:18→21:17)
[2021-04-24] MEDS: LEVALBUTEROL HCL 1.25 MG/0.5 ML NEB NEB SCH ×4 (01:19→21:18)
[2021-04-24] MEDS: ARGININE/GLUTAMINE/CALCIUM BMB 1 EACH POWD.PACK GT SCH ×2 (05:15→17:19)
[2021-04-24 06:40] VITALS: BP 126/77
[2021-04-24] MEDS: GLUCERNA 1.2 1000ML LIQUID GT PRN (07:01)
[2021-04-24 08:00] VITALS: BP 166/92
[2021-04-24] MEDS: FAMOTIDINE 20 MG TABLET GT SCH ×2 (08:44→21:26)
[2021-04-24] MEDS: TERAZOSIN 1 MG CAPSULE GT SCH (08:44)
[2021-04-24] MEDS: BACLOFEN 10 MG TABLET GT SCH ×2 (08:44→21:26)
[2021-04-24] MEDS: ACETAMINOPHEN 650 MG/20 ML UDC- SA PATIENTS-PAIN ONLY GT SCH ×2 (08:44→21:25)
[2021-04-24] MEDS: METOPROLOL TARTRATE 25 MG TABLET GT SCH ×2 (08:44→21:26)
[2021-04-24] MEDS: levETIRAcetam 500 MG/5 ML LIQUID UDC GT SCH ×2 (08:44→21:26)
[2021-04-24] MEDS: AMANTADINE HCL 50 MG/5 ML GT SCH ×2 (08:44→21:27)
[2021-04-24] MEDS: PHENOBARBITAL 97.2 MG TABLET GT SCH ×2 (08:44→21:26)
[2021-04-24] MEDS: COD LIVER OIL/ZINC OXIDE OINT 113 GM TUBE TOP SCH ×2 (08:45→21:28)
[2021-04-24] MEDS: HEPARIN SODIUM,PORCINE 5,000 UNITS/ML VIAL SQ SCH ×2 (08:45→21:00)
[2021-04-24] MEDS: TRIAMCINOLONE ACET 0.1% CREAM 15 GM TUBE TP SCH ×2 (08:46→21:29)
[2021-04-24] MEDS: NYSTATIN CREAM 30 GM TUBE TP SCH ×2 (08:46→21:29)
[2021-04-24] MEDS: SODIUM HYPOCHLORITE 0.125% (QUARTER STRENGTH) 473 ML BOTTLE TP SCH ×2 (08:46→21:29)
[2021-04-24] MEDS: VITAMINS A AND D OINT TP SCH ×2 (08:46→21:30)
[2021-04-24] MEDS: HYDROGEN PEROXIDE 3% 118 ML BOTTLE TP SCH ×2 (09:12→21:14)
[2021-04-24 12:06] VITALS: BP 124/70
[2021-04-24 17:56] VITALS: BP 150/87
--- NOTE | 2021-04-24 18:27 | NUR ---
PT. HAD COVID 19 TEST DONE TODAY PER [facility] REQUIREMENT.PT'S DAUGHTER CRISTIANO NOTIFIED.
[2021-04-24 20:11] VITALS: BP 152/81
[2021-04-24] MEDS: MINERAL OIL/PETROLAT OPHT OINT 3.5 GM TUBE EACHEYE SCH (21:25)
[2021-04-24] MEDS: hydrALAZINE HCL 25 MG TABLET GT SCH (21:26)
[2021-04-24] MEDS: ATORVASTATIN 40 MG TABLET GT SCH (21:26)
[2021-04-24] MEDS: ASCORBIC ACID 500 MG TABLET GT SCH (21:27)
[2021-04-24] MEDS: THIAMINE HCL 100 MG TABLET GT SCH (21:27)
[2021-04-25] MEDS: BLOOD SUGAR DIAGNOSTIC 1 EACH STRIP VI SCH ×4 (00:49→17:28)
[2021-04-25] MEDS: INSULIN REGULAR, HUMAN 300 UNIT/3 ML VIAL SQ PRN ×4 (00:51→17:30)
[2021-04-25] MEDS: IPRATROPIUM BROMIDE 0.5 MG/2.5 ML NEBU NEB SCH ×4 (01:49→18:58)
[2021-04-25] MEDS: LEVALBUTEROL HCL 1.25 MG/0.5 ML NEB NEB SCH ×4 (01:51→18:58)
[2021-04-25] MEDS: GLUCERNA 1.2 1000ML LIQUID GT PRN ×2 (02:02→23:12)
[2021-04-25] MEDS: ARGININE/GLUTAMINE/CALCIUM BMB 1 EACH POWD.PACK GT SCH ×2 (05:20→17:28)
[2021-04-25 07:31] VITALS: BP 148/85
[2021-04-25] MEDS: HYDROGEN PEROXIDE 3% 118 ML BOTTLE TP SCH ×2 (09:21→21:51)
[2021-04-25] MEDS: PHENOBARBITAL 97.2 MG TABLET GT SCH ×2 (09:30→21:22)
[2021-04-25] MEDS: ACETAMINOPHEN 650 MG/20 ML UDC- SA PATIENTS-PAIN ONLY GT SCH ×2 (09:30→21:20)
[2021-04-25] MEDS: BACLOFEN 10 MG TABLET GT SCH ×2 (09:31→21:21)
[2021-04-25] MEDS: levETIRAcetam 500 MG/5 ML LIQUID UDC GT SCH ×2 (09:31→21:21)
[2021-04-25] MEDS: FAMOTIDINE 20 MG TABLET GT SCH ×2 (09:32→21:22)
[2021-04-25] MEDS: AMANTADINE HCL 50 MG/5 ML GT SCH ×2 (09:35→21:22)
[2021-04-25] MEDS: HEPARIN SODIUM,PORCINE 5,000 UNITS/ML VIAL SQ SCH ×2 (09:36→21:00)
[2021-04-25] MEDS: VITAMINS A AND D OINT TP SCH ×2 (09:37→21:23)
[2021-04-25] MEDS: COD LIVER OIL/ZINC OXIDE OINT 113 GM TUBE TOP SCH ×2 (09:37→21:22)
[2021-04-25] MEDS: METOPROLOL TARTRATE 25 MG TABLET GT SCH ×2 (09:39→21:22)
[2021-04-25] MEDS: TERAZOSIN 1 MG CAPSULE GT SCH (09:40)
[2021-04-25] MEDS: TRIAMCINOLONE ACET 0.1% CREAM 15 GM TUBE TP SCH ×2 (10:00→21:23)
[2021-04-25] MEDS: SODIUM HYPOCHLORITE 0.125% (QUARTER STRENGTH) 473 ML BOTTLE TP SCH ×2 (10:00→21:22)
[2021-04-25] MEDS: NYSTATIN CREAM 30 GM TUBE TP SCH ×2 (10:00→21:23)
[2021-04-25 12:21] VITALS: BP 143/73
--- NOTE | 2021-04-25 13:30 | NUR ---
SEEN BY GLORIA MOREIRA WITH NO NEW ORDER.
[2021-04-25 18:00] VITALS: BP 138/80
--- NOTE | 2021-04-25 18:26 | NUR ---
SEEN BY DR DAILEY,ENDOSCOPIC TECHNICIAN. WITH NO NEW ORDER.
[2021-04-25 20:17] VITALS: BP 143/78
[2021-04-25] MEDS: MINERAL OIL/PETROLAT OPHT OINT 3.5 GM TUBE EACHEYE SCH (21:20)
[2021-04-25] MEDS: hydrALAZINE HCL 25 MG TABLET GT SCH (21:21)
[2021-04-25] MEDS: ATORVASTATIN 40 MG TABLET GT SCH (21:21)
[2021-04-25] MEDS: ASCORBIC ACID 500 MG TABLET GT SCH (21:22)
[2021-04-25] MEDS: THIAMINE HCL 100 MG TABLET GT SCH (21:22)
[2021-04-26] VITALS: BP 140/85
[2021-04-26] MEDS: BLOOD SUGAR DIAGNOSTIC 1 EACH STRIP VI SCH ×4 (00:36→17:17)
[2021-04-26] MEDS: LEVALBUTEROL HCL 1.25 MG/0.5 ML NEB NEB SCH ×4 (00:40→18:42)
[2021-04-26] MEDS: IPRATROPIUM BROMIDE 0.5 MG/2.5 ML NEBU NEB SCH ×4 (00:40→18:42)
[2021-04-26] MEDS: INSULIN REGULAR, HUMAN 300 UNIT/3 ML VIAL SQ PRN ×3 (01:01→11:17)
[2021-04-26] MEDS: ARGININE/GLUTAMINE/CALCIUM BMB 1 EACH POWD.PACK GT SCH ×2 (05:14→17:16)
[2021-04-26] MEDS: HYDROCODONE/APAP 5-325MG TABLET GT PRN (05:15)
[2021-04-26 06:00] VITALS: BP 145/97
[2021-04-26 07:27] VITALS: BP 154/92
[2021-04-26] MEDS: PHENOBARBITAL 97.2 MG TABLET GT SCH ×2 (08:09→21:02)
[2021-04-26] MEDS: ACETAMINOPHEN 650 MG/20 ML UDC- SA PATIENTS-PAIN ONLY GT SCH ×2 (08:10→20:30)
[2021-04-26] MEDS: TERAZOSIN 1 MG CAPSULE GT SCH (08:10)
[2021-04-26] MEDS: METOPROLOL TARTRATE 25 MG TABLET GT SCH ×2 (08:11→21:01)
[2021-04-26] MEDS: levETIRAcetam 500 MG/5 ML LIQUID UDC GT SCH ×2 (08:11→21:01)
[2021-04-26] MEDS: FAMOTIDINE 20 MG TABLET GT SCH ×2 (08:11→21:02)
[2021-04-26] MEDS: AMANTADINE HCL 50 MG/5 ML GT SCH ×2 (08:12→21:02)
[2021-04-26] MEDS: BACLOFEN 10 MG TABLET GT SCH ×2 (08:12→21:01)
[2021-04-26] MEDS: HEPARIN SODIUM,PORCINE 5,000 UNITS/ML VIAL SQ SCH ×2 (08:13→21:03)
[2021-04-26] MEDS: HYDROGEN PEROXIDE 3% 118 ML BOTTLE TP SCH ×2 (09:00→18:42)
[2021-04-26] MEDS: COD LIVER OIL/ZINC OXIDE OINT 113 GM TUBE TOP SCH ×2 (09:01→21:04)
[2021-04-26] MEDS: VITAMINS A AND D OINT TP SCH ×2 (09:02→21:04)
[2021-04-26] MEDS: NYSTATIN CREAM 30 GM TUBE TP SCH ×2 (09:02→21:04)
[2021-04-26] MEDS: TRIAMCINOLONE ACET 0.1% CREAM 15 GM TUBE TP SCH ×2 (09:02→21:04)
[2021-04-26] MEDS: SODIUM HYPOCHLORITE 0.125% (QUARTER STRENGTH) 473 ML BOTTLE TP SCH ×2 (09:02→21:04)
[2021-04-26 12:07] VITALS: BP 122/72
[2021-04-26] MEDS: GLUCERNA 1.2 1000ML LIQUID GT PRN (16:44)
[2021-04-26 18:06] VITALS: BP 148/82
[2021-04-26 20:05] VITALS: BP 131/77
[2021-04-26] MEDS: MINERAL OIL/PETROLAT OPHT OINT 3.5 GM TUBE EACHEYE SCH (21:00)
[2021-04-26] MEDS: ATORVASTATIN 40 MG TABLET GT SCH (21:01)
[2021-04-26] MEDS: hydrALAZINE HCL 25 MG TABLET GT SCH (21:01)
[2021-04-26] MEDS: THIAMINE HCL 100 MG TABLET GT SCH (21:02)
[2021-04-26] MEDS: ASCORBIC ACID 500 MG TABLET GT SCH (21:03)
[2021-04-27] MEDS: BLOOD SUGAR DIAGNOSTIC 1 EACH STRIP VI SCH ×4 (00:26→17:19)
[2021-04-27] MEDS: INSULIN REGULAR, HUMAN 300 UNIT/3 ML VIAL SQ PRN ×4 (00:27→17:20)
[2021-04-27] MEDS: IPRATROPIUM BROMIDE 0.5 MG/2.5 ML NEBU NEB SCH ×4 (00:30→19:37)
[2021-04-27] MEDS: LEVALBUTEROL HCL 1.25 MG/0.5 ML NEB NEB SCH ×4 (00:30→19:37)
[2021-04-27] MEDS: ARGININE/GLUTAMINE/CALCIUM BMB 1 EACH POWD.PACK GT SCH ×2 (05:35→17:18)
[2021-04-27 07:28] VITALS: BP 134/83
[2021-04-27] MEDS: PHENOBARBITAL 97.2 MG TABLET GT SCH ×2 (08:00→21:25)
[2021-04-27] MEDS: TERAZOSIN 1 MG CAPSULE GT SCH (08:00)
[2021-04-27] MEDS: METOPROLOL TARTRATE 25 MG TABLET GT SCH ×2 (08:00→21:25)
[2021-04-27] MEDS: levETIRAcetam 500 MG/5 ML LIQUID UDC GT SCH ×2 (08:13→21:23)
[2021-04-27] MEDS: BACLOFEN 10 MG TABLET GT SCH ×2 (08:14→21:25)
[2021-04-27] MEDS: FAMOTIDINE 20 MG TABLET GT SCH ×2 (08:14→21:25)
[2021-04-27] MEDS: AMANTADINE HCL 50 MG/5 ML GT SCH ×2 (08:14→21:25)
[2021-04-27] MEDS: HEPARIN SODIUM,PORCINE 5,000 UNITS/ML VIAL SQ SCH ×2 (08:15→21:27)
[2021-04-27] MEDS: HYDROGEN PEROXIDE 3% 118 ML BOTTLE TP SCH ×2 (08:26→21:39)
[2021-04-27] MEDS: COD LIVER OIL/ZINC OXIDE OINT 113 GM TUBE TOP SCH ×2 (09:00→21:27)
[2021-04-27] MEDS: VITAMINS A AND D OINT TP SCH ×2 (09:00→21:28)
[2021-04-27] MEDS: ACETAMINOPHEN 650 MG/20 ML UDC- SA PATIENTS-PAIN ONLY GT SCH ×2 (09:07→20:30)
[2021-04-27] MEDS: NYSTATIN CREAM 30 GM TUBE TP SCH ×2 (09:45→21:28)
[2021-04-27] MEDS: SODIUM HYPOCHLORITE 0.125% (QUARTER STRENGTH) 473 ML BOTTLE TP SCH ×2 (09:45→21:27)
[2021-04-27] MEDS: TRIAMCINOLONE ACET 0.1% CREAM 15 GM TUBE TP SCH ×2 (09:45→21:28)
--- NOTE | 2021-04-27 10:00 | NUR ---
Covid 19 test negative,Pt's father notified.
[2021-04-27] MEDS: GLUCERNA 1.2 1000ML LIQUID GT PRN (11:04)
[2021-04-27 12:00] VITALS: BP 121/76
[2021-04-27 18:00] VITALS: BP 115/82
--- NOTE | 2021-04-27 18:23 | NUR ---
Seen and examined by Dr Peralta,no new orders noted.
[2021-04-27 20:12] VITALS: BP 142/80
[2021-04-27] MEDS: MINERAL OIL/PETROLAT OPHT OINT 3.5 GM TUBE EACHEYE SCH (21:23)
[2021-04-27] MEDS: hydrALAZINE HCL 25 MG TABLET GT SCH (21:23)
[2021-04-27] MEDS: ATORVASTATIN 40 MG TABLET GT SCH (21:25)
[2021-04-27] MEDS: ASCORBIC ACID 500 MG TABLET GT SCH (21:26)
[2021-04-27] MEDS: THIAMINE HCL 100 MG TABLET GT SCH (21:26)
[2021-04-28] MEDS: BLOOD SUGAR DIAGNOSTIC 1 EACH STRIP VI SCH ×4 (00:15→17:29)
[2021-04-28] MEDS: INSULIN REGULAR, HUMAN 300 UNIT/3 ML VIAL SQ PRN ×4 (00:17→17:31)
[2021-04-28] MEDS: LEVALBUTEROL HCL 1.25 MG/0.5 ML NEB NEB SCH ×4 (01:35→20:25)
[2021-04-28] MEDS: IPRATROPIUM BROMIDE 0.5 MG/2.5 ML NEBU NEB SCH ×4 (01:35→20:25)
[2021-04-28] MEDS: GLUCERNA 1.2 1000ML LIQUID GT PRN (03:48)
[2021-04-28] MEDS: ARGININE/GLUTAMINE/CALCIUM BMB 1 EACH POWD.PACK GT SCH ×2 (05:35→17:29)
[2021-04-28 07:45] VITALS: BP 153/78
[2021-04-28] MEDS: HYDROGEN PEROXIDE 3% 118 ML BOTTLE TP SCH ×2 (08:15→21:31)
[2021-04-28] MEDS: ACETAMINOPHEN 650 MG/20 ML UDC- SA PATIENTS-PAIN ONLY GT SCH ×2 (09:28→20:52)
[2021-04-28] MEDS: METOPROLOL TARTRATE 25 MG TABLET GT SCH ×2 (09:28→21:00)
[2021-04-28] MEDS: levETIRAcetam 500 MG/5 ML LIQUID UDC GT SCH ×2 (09:28→20:59)
[2021-04-28] MEDS: BACLOFEN 10 MG TABLET GT SCH ×2 (09:28→20:59)
[2021-04-28] MEDS: TERAZOSIN 1 MG CAPSULE GT SCH (09:28)
[2021-04-28] MEDS: COD LIVER OIL/ZINC OXIDE OINT 113 GM TUBE TOP SCH ×2 (09:29→21:03)
[2021-04-28] MEDS: FAMOTIDINE 20 MG TABLET GT SCH ×2 (09:29→21:00)
[2021-04-28] MEDS: VITAMINS A AND D OINT TP SCH ×2 (09:29→21:03)
[2021-04-28] MEDS: HEPARIN SODIUM,PORCINE 5,000 UNITS/ML VIAL SQ SCH ×2 (09:29→21:02)
[2021-04-28] MEDS: PHENOBARBITAL 97.2 MG TABLET GT SCH ×2 (09:29→21:00)
[2021-04-28] MEDS: AMANTADINE HCL 50 MG/5 ML GT SCH ×2 (09:29→21:00)
[2021-04-28] MEDS: NYSTATIN CREAM 30 GM TUBE TP SCH ×2 (09:29→21:03)
[2021-04-28] MEDS: SODIUM HYPOCHLORITE 0.125% (QUARTER STRENGTH) 473 ML BOTTLE TP SCH ×2 (09:29→21:03)
[2021-04-28] MEDS: TRIAMCINOLONE ACET 0.1% CREAM 15 GM TUBE TP SCH ×2 (09:29→21:03)
--- NOTE | 2021-04-28 16:52 | NUR ---
SW emailed patient's daughter Janis the updated guidelines and criteria for visitations.
[2021-04-28 19:58] VITALS: BP 146/82
[2021-04-28] MEDS: MINERAL OIL/PETROLAT OPHT OINT 3.5 GM TUBE EACHEYE SCH (20:58)
[2021-04-28] MEDS: hydrALAZINE HCL 25 MG TABLET GT SCH (20:59)
[2021-04-28] MEDS: ATORVASTATIN 40 MG TABLET GT SCH (21:00)
[2021-04-28] MEDS: THIAMINE HCL 100 MG TABLET GT SCH (21:01)
[2021-04-28] MEDS: ASCORBIC ACID 500 MG TABLET GT SCH (21:02)
[2021-04-29] MEDS: BLOOD SUGAR DIAGNOSTIC 1 EACH STRIP VI SCH ×5 (00:11→23:18)
[2021-04-29] MEDS: INSULIN REGULAR, HUMAN 300 UNIT/3 ML VIAL SQ PRN ×5 (00:12→23:19)
[2021-04-29] MEDS: GLUCERNA 1.2 1000ML LIQUID GT PRN ×2 (00:26→22:35)
[2021-04-29] MEDS: IPRATROPIUM BROMIDE 0.5 MG/2.5 ML NEBU NEB SCH ×8 (01:16→19:32)
[2021-04-29] MEDS: LEVALBUTEROL HCL 1.25 MG/0.5 ML NEB NEB SCH ×6 (01:16→19:32)
[2021-04-29] MEDS: ARGININE/GLUTAMINE/CALCIUM BMB 1 EACH POWD.PACK GT SCH ×2 (05:39→17:49)
[2021-04-29] MEDS: HYDROCODONE/APAP 5-325MG TABLET GT PRN (07:51)
[2021-04-29 08:00] VITALS: BP 116/76
[2021-04-29] MEDS: ACETAMINOPHEN 650 MG/20 ML UDC- SA PATIENTS-PAIN ONLY GT SCH ×2 (08:10→20:28)
[2021-04-29] MEDS: METOPROLOL TARTRATE 25 MG TABLET GT SCH ×2 (08:11→20:28)
[2021-04-29] MEDS: FAMOTIDINE 20 MG TABLET GT SCH ×2 (08:11→20:28)
[2021-04-29] MEDS: PHENOBARBITAL 97.2 MG TABLET GT SCH ×2 (08:11→20:28)
[2021-04-29] MEDS: BACLOFEN 10 MG TABLET GT SCH ×2 (08:11→20:28)
[2021-04-29] MEDS: levETIRAcetam 500 MG/5 ML LIQUID UDC GT SCH ×2 (08:11→20:28)
[2021-04-29] MEDS: AMANTADINE HCL 50 MG/5 ML GT SCH ×2 (08:11→20:28)
[2021-04-29] MEDS: TERAZOSIN 1 MG CAPSULE GT SCH (08:11)
[2021-04-29] MEDS: SODIUM HYPOCHLORITE 0.125% (QUARTER STRENGTH) 473 ML BOTTLE TP SCH ×2 (08:14→21:19)
[2021-04-29] MEDS: HEPARIN SODIUM,PORCINE 5,000 UNITS/ML VIAL SQ SCH ×2 (08:14→20:47)
[2021-04-29] MEDS: COD LIVER OIL/ZINC OXIDE OINT 113 GM TUBE TOP SCH ×2 (08:14→21:19)
[2021-04-29] MEDS: VITAMINS A AND D OINT TP SCH ×2 (08:15→21:19)
[2021-04-29] MEDS: NYSTATIN CREAM 30 GM TUBE TP SCH ×2 (08:15→21:19)
[2021-04-29] MEDS: TRIAMCINOLONE ACET 0.1% CREAM 15 GM TUBE TP SCH ×2 (08:15→21:19)
[2021-04-29] MEDS: HYDROGEN PEROXIDE 3% 118 ML BOTTLE TP SCH ×2 (09:00→19:32)
--- NOTE | 2021-04-29 10:08 | NUR ---
DR. RINCON WAS CALLED AND DR. JEANNE DUTTON CALLED BELLHOP CAPTAIN AND HE WILL CALL BACK TO F/U TACHYCARDIA [id number]'.
--- NOTE | 2021-04-29 10:15 | NUR ---
JEANNE DUTTON CALLED [facility] AND WITH NEW ORDERS CARRIED OUT.
[2021-04-29 10:45] VITALS: BP 105/64
--- NOTE | 2021-04-29 10:47 | NUR ---
NOTED WITH TEMP OF 101.2. TYLENOL WAS GIVEN AT 0810 FOR WOUND CARE. COOLING MEASURE APPLIED. WILL KEEP COMFORTABLE. BATH GIVEN TO PT.
[2021-04-29] MEDS ORDERED: METOPROLOL TARTRATE 25 MG TABLET GT ONE (11:00)
--- NOTE | 2021-04-29 11:02 | NUR ---
JEANNE DUTTON NOTIFIED TEMP 102.2F RECTAL TEMP.AND WITH NEW ORDERS CARRIED OUT.RESP. REPUBLICAN WAS NOTIFIED AND IN AGREEMENT WITH ORDERS.
[2021-04-29 11:25] LABS: *BILIRUBIN,URIN NEGATIVE (NEGATIVE); *BLOOD, URINE 2+ (NEGATIVE); *CLARITY,URINE CLOUDY (CLEAR); *COLOR,URINE YELLOW (YELLOW); *KETONES,URINE TRACE (NEGATIVE); *UROBILINOGEN,URINE 0.2 E.U./dl (NORMAL); LEUKOCYTE ESTERASE ,URINE 1+ (NEGATIVE); NITRITE, URINE NEGATIVE (NEGATIVE); UGLUCOSE NEGATIVE (NEGATIVE)
[2021-04-29 11:53] LABS: HEMATOCRIT 33.4 % (36.7-47.1); MEAN CORPUSCULAR HEMOGLOBIN 27.6 uug (23.8-33.4); MEAN CORPUSCULAR VOLUME 85.2 fL (73.0-96.2); PLATELET COUNT (AUTO) 377 K/uL (152-348)
[2021-04-29 12:01] LABS: ALANINE AMINOTRANSFERASE 37 U/L (16-63); ALKALINE PHOSPHATASE 166 U/L (50-136); ASPARTATE AMINOTRANSFERASE 17 U/L (15-37); BILIRUBIN,TOTAL 0.2 mg/dL (0.2-1.0); CARBON DIOXIDE 29 mmol/L (21-32); CHLORIDE 98 mmol/L (98-107); CREATININE 0.4 mg/dL (0.6-1.3); GLUCOSE 207 mg/dL (74-106); POTASSIUM 4.3 mmol/L (3.5-5.1); TOTAL PROTEIN, SERUM 7.3 g/dL (6.4-8.2); UREA NITROGEN, BLOOD 30 mg/dL (7-18)
--- NOTE | 2021-04-29 12:38 | NUR ---
TX NO GIVEN. PT'S HEART RATE IS IN THE 170'S.
[2021-04-29 13:11] LABS: BACTERIA,URINE MANY /HPF (NONE SEEN); RBC,URINE TNTC /HPF (0-3); SQUAMOUS EPITHELIAL CELL,UR NONE SEEN /HPF (NONE SEEN); WBC,URINE TNTC /HPF (0-3)
[2021-04-29 13:12] LABS: MUCUS,URINE FEW /LPF (0-FEW); URINE AMORPHOUS URATE MODERATE /HPF
--- NOTE | 2021-04-29 17:00 | NUR ---
NEW ORDERS CARRIED OUT FROM JEANNE DUTTON FOR IV ATB FOR FEVER AND UTI
--- NOTE | 2021-04-29 19:14 | NUR ---
PT'S DTR. SARBJIT WAS NOTIFIED ABOUT NEW ORDERS AND TX AND IN AGREEMENT.
[2021-04-29 19:54] VITALS: BP 107/70
[2021-04-29] MEDS: hydrALAZINE HCL 25 MG TABLET GT SCH (20:28)
[2021-04-29] MEDS: ASCORBIC ACID 500 MG TABLET GT SCH (20:28)
[2021-04-29] MEDS: ATORVASTATIN 40 MG TABLET GT SCH (20:28)
[2021-04-29] MEDS: MINERAL OIL/PETROLAT OPHT OINT 3.5 GM TUBE EACHEYE SCH (20:28)
[2021-04-29] MEDS: THIAMINE HCL 100 MG TABLET GT SCH (20:28)
--- NOTE | 2021-04-29 22:00 | NUR ---
MERIPENEM 1 GM IVPB Q8 HRS WAS STARTED AT 2200 NO A/R NOTED.IV SITE ON (L) HAND.CONTINUE MONITOR FOR FEVER.
[2021-04-29] MEDS: MEROPENEM 1 G in IV NORMAL SALINE 100 ML IV SCH (22:05)
[2021-04-30] MEDS: LEVALBUTEROL HCL 1.25 MG/0.5 ML NEB NEB SCH ×4 (00:30→18:43)
[2021-04-30] MEDS: IPRATROPIUM BROMIDE 0.5 MG/2.5 ML NEBU NEB SCH ×4 (00:30→18:43)
[2021-04-30 00:52] VITALS: BP 148/86
[2021-04-30] MEDS: ARGININE/GLUTAMINE/CALCIUM BMB 1 EACH POWD.PACK GT SCH ×2 (05:46→18:16)
[2021-04-30] MEDS: BLOOD SUGAR DIAGNOSTIC 1 EACH STRIP VI SCH ×4 (05:47→23:22)
[2021-04-30] MEDS: INSULIN REGULAR, HUMAN 300 UNIT/3 ML VIAL SQ PRN ×4 (05:48→23:23)
[2021-04-30] MEDS: MEROPENEM 1 G in IV NORMAL SALINE 100 ML IV SCH ×3 (05:52→21:38)
[2021-04-30 06:16] VITALS: BP 155/90
[2021-04-30 07:54] VITALS: BP 112/62
[2021-04-30] MEDS: HYDROGEN PEROXIDE 3% 118 ML BOTTLE TP SCH ×2 (09:00→18:43)
[2021-04-30] MEDS: levETIRAcetam 500 MG/5 ML LIQUID UDC GT SCH ×2 (09:21→20:24)
[2021-04-30] MEDS: METOPROLOL TARTRATE 25 MG TABLET GT SCH ×2 (09:21→20:24)
[2021-04-30] MEDS: TERAZOSIN 1 MG CAPSULE GT SCH (09:21)
[2021-04-30] MEDS: BACLOFEN 10 MG TABLET GT SCH ×2 (09:21→20:24)
[2021-04-30] MEDS: ACETAMINOPHEN 650 MG/20 ML UDC- SA PATIENTS-PAIN ONLY GT SCH ×2 (09:21→20:24)
[2021-04-30] MEDS: PHENOBARBITAL 97.2 MG TABLET GT SCH ×2 (09:22→20:24)
[2021-04-30] MEDS: AMANTADINE HCL 50 MG/5 ML GT SCH ×2 (09:22→20:24)
[2021-04-30] MEDS: FAMOTIDINE 20 MG TABLET GT SCH ×2 (09:22→20:24)
[2021-04-30] MEDS: SODIUM HYPOCHLORITE 0.125% (QUARTER STRENGTH) 473 ML BOTTLE TP SCH ×2 (09:23→21:03)
[2021-04-30] MEDS: COD LIVER OIL/ZINC OXIDE OINT 113 GM TUBE TOP SCH ×2 (09:23→21:03)
[2021-04-30] MEDS: NYSTATIN CREAM 30 GM TUBE TP SCH ×2 (09:23→21:03)
[2021-04-30] MEDS: VITAMINS A AND D OINT TP SCH ×2 (09:23→21:03)
[2021-04-30] MEDS: TRIAMCINOLONE ACET 0.1% CREAM 15 GM TUBE TP SCH ×2 (09:23→21:03)
[2021-04-30] MEDS: HEPARIN SODIUM,PORCINE 5,000 UNITS/ML VIAL SQ SCH ×2 (09:23→21:03)
[2021-04-30 12:15] VITALS: BP 109/71
[2021-04-30] MEDS: GLUCERNA 1.2 1000ML LIQUID GT PRN (16:10)
[2021-04-30 19:54] VITALS: BP 132/81
[2021-04-30] MEDS: THIAMINE HCL 100 MG TABLET GT SCH (20:24)
[2021-04-30] MEDS: MINERAL OIL/PETROLAT OPHT OINT 3.5 GM TUBE EACHEYE SCH (20:24)
[2021-04-30] MEDS: ATORVASTATIN 40 MG TABLET GT SCH (20:24)
[2021-04-30] MEDS: ASCORBIC ACID 500 MG TABLET GT SCH (20:24)
[2021-04-30] MEDS: hydrALAZINE HCL 25 MG TABLET GT SCH (20:24)
[2021-05-01 00:35] VITALS: BP 154/86
[2021-05-01] MEDS: LEVALBUTEROL HCL 1.25 MG/0.5 ML NEB NEB SCH ×4 (00:35→19:58)
[2021-05-01] MEDS: IPRATROPIUM BROMIDE 0.5 MG/2.5 ML NEBU NEB SCH ×4 (00:35→19:58)
[2021-05-01] MEDS: GLUCERNA 1.2 1000ML LIQUID GT PRN ×2 (02:31→18:40)
[2021-05-01] MEDS: HYDROCODONE/APAP 5-325MG TABLET GT PRN ×2 (02:39→11:27)
[2021-05-01] MEDS: BLOOD SUGAR DIAGNOSTIC 1 EACH STRIP VI SCH ×3 (05:20→18:39)
[2021-05-01] MEDS: ARGININE/GLUTAMINE/CALCIUM BMB 1 EACH POWD.PACK GT SCH ×2 (05:20→18:39)
[2021-05-01] MEDS: INSULIN REGULAR, HUMAN 300 UNIT/3 ML VIAL SQ PRN ×3 (05:21→18:41)
[2021-05-01 06:06] VITALS: BP 142/80
[2021-05-01] MEDS: MEROPENEM 1 G in IV NORMAL SALINE 100 ML IV SCH ×3 (06:38→22:13)
[2021-05-01 07:36] VITALS: BP 157/91
[2021-05-01] MEDS: ACETAMINOPHEN 650 MG/20 ML UDC- SA PATIENTS-PAIN ONLY GT SCH ×2 (08:30→20:23)
[2021-05-01] MEDS: HYDROGEN PEROXIDE 3% 118 ML BOTTLE TP SCH ×2 (08:51→21:14)
[2021-05-01] MEDS: FAMOTIDINE 20 MG TABLET GT SCH ×2 (09:44→20:24)
[2021-05-01] MEDS: PHENOBARBITAL 97.2 MG TABLET GT SCH ×2 (09:44→20:24)
[2021-05-01] MEDS: METOPROLOL TARTRATE 25 MG TABLET GT SCH ×2 (09:44→20:24)
[2021-05-01] MEDS: BACLOFEN 10 MG TABLET GT SCH ×2 (09:44→20:24)
[2021-05-01] MEDS: TERAZOSIN 1 MG CAPSULE GT SCH (09:44)
[2021-05-01] MEDS: levETIRAcetam 500 MG/5 ML LIQUID UDC GT SCH ×2 (09:44→20:23)
[2021-05-01] MEDS: HEPARIN SODIUM,PORCINE 5,000 UNITS/ML VIAL SQ SCH ×2 (09:45→21:00)
[2021-05-01] MEDS: SODIUM HYPOCHLORITE 0.125% (QUARTER STRENGTH) 473 ML BOTTLE TP SCH ×2 (09:45→21:04)
[2021-05-01] MEDS: AMANTADINE HCL 50 MG/5 ML GT SCH ×2 (09:45→20:24)
[2021-05-01] MEDS: COD LIVER OIL/ZINC OXIDE OINT 113 GM TUBE TOP SCH ×2 (09:45→21:04)
[2021-05-01] MEDS: NYSTATIN CREAM 30 GM TUBE TP SCH ×2 (09:46→21:04)
[2021-05-01] MEDS: VITAMINS A AND D OINT TP SCH ×2 (09:46→21:04)
[2021-05-01] MEDS: TRIAMCINOLONE ACET 0.1% CREAM 15 GM TUBE TP SCH ×2 (09:46→21:04)
[2021-05-01 18:56] VITALS: BP 155/88
[2021-05-01 20:19] VITALS: BP 131/79
[2021-05-01] MEDS: MINERAL OIL/PETROLAT OPHT OINT 3.5 GM TUBE EACHEYE SCH (20:23)
[2021-05-01] MEDS: hydrALAZINE HCL 25 MG TABLET GT SCH (20:23)
[2021-05-01] MEDS: ATORVASTATIN 40 MG TABLET GT SCH (20:24)
[2021-05-01] MEDS: ASCORBIC ACID 500 MG TABLET GT SCH (20:24)
[2021-05-01] MEDS: THIAMINE HCL 100 MG TABLET GT SCH (20:24)
--- NOTE | 2021-05-01 22:54 | NUR ---
Patient is on Merrem IV for fever, no adverse reactions noted, afebrile, Fluids given as ordered, Gt feeding tolerating well, no vomiting noted, Patiño catheter is draining well with yellow urine, with ongoing treatment to sacral pressure sore, on contact isolation for MRSA of sacral wound, no signs of pain or discomfort, will continue monitor.
[2021-05-02] MEDS: BLOOD SUGAR DIAGNOSTIC 1 EACH STRIP VI SCH ×5 (00:04→23:08)
[2021-05-02] MEDS: INSULIN REGULAR, HUMAN 300 UNIT/3 ML VIAL SQ PRN ×5 (00:05→23:08)
[2021-05-02 00:19] VITALS: BP 138/72
[2021-05-02] MEDS: IPRATROPIUM BROMIDE 0.5 MG/2.5 ML NEBU NEB SCH ×4 (02:21→19:13)
[2021-05-02] MEDS: LEVALBUTEROL HCL 1.25 MG/0.5 ML NEB NEB SCH ×4 (02:21→19:13)
[2021-05-02] MEDS: HYDROCODONE/APAP 5-325MG TABLET GT PRN (03:20)
[2021-05-02] MEDS: ARGININE/GLUTAMINE/CALCIUM BMB 1 EACH POWD.PACK GT SCH ×2 (05:51→18:02)
[2021-05-02] MEDS: MEROPENEM 1 G in IV NORMAL SALINE 100 ML IV SCH ×3 (06:16→21:59)
[2021-05-02 06:28] VITALS: BP 149/80
[2021-05-02 07:35] VITALS: BP 139/76
[2021-05-02] MEDS: HYDROGEN PEROXIDE 3% 118 ML BOTTLE TP SCH ×2 (08:30→21:15)
[2021-05-02] MEDS: TERAZOSIN 1 MG CAPSULE GT SCH (09:26)
[2021-05-02] MEDS: ACETAMINOPHEN 650 MG/20 ML UDC- SA PATIENTS-PAIN ONLY GT SCH ×2 (09:26→20:27)
[2021-05-02] MEDS: levETIRAcetam 500 MG/5 ML LIQUID UDC GT SCH ×2 (09:26→20:27)
[2021-05-02] MEDS: PHENOBARBITAL 97.2 MG TABLET GT SCH ×2 (09:27→20:28)
[2021-05-02] MEDS: METOPROLOL TARTRATE 25 MG TABLET GT SCH ×2 (09:27→20:28)
[2021-05-02] MEDS: HEPARIN SODIUM,PORCINE 5,000 UNITS/ML VIAL SQ SCH ×2 (09:27→21:06)
[2021-05-02] MEDS: AMANTADINE HCL 50 MG/5 ML GT SCH ×2 (09:27→20:28)
[2021-05-02] MEDS: FAMOTIDINE 20 MG TABLET GT SCH ×2 (09:27→20:28)
[2021-05-02] MEDS: BACLOFEN 10 MG TABLET GT SCH ×2 (09:27→20:27)
[2021-05-02] MEDS: TRIAMCINOLONE ACET 0.1% CREAM 15 GM TUBE TP SCH ×2 (09:28→21:04)
[2021-05-02] MEDS: VITAMINS A AND D OINT TP SCH ×2 (09:28→21:05)
[2021-05-02] MEDS: COD LIVER OIL/ZINC OXIDE OINT 113 GM TUBE TOP SCH ×2 (09:28→21:04)
[2021-05-02] MEDS: SODIUM HYPOCHLORITE 0.125% (QUARTER STRENGTH) 473 ML BOTTLE TP SCH ×2 (09:28→21:04)
[2021-05-02] MEDS: NYSTATIN CREAM 30 GM TUBE TP SCH ×2 (09:28→21:04)
[2021-05-02 12:00] VITALS: BP 140/80
[2021-05-02] MEDS: GLUCERNA 1.2 1000ML LIQUID GT PRN (18:02)
[2021-05-02 18:17] VITALS: BP 148/78
[2021-05-02 20:02] VITALS: BP 153/90
[2021-05-02] MEDS: MINERAL OIL/PETROLAT OPHT OINT 3.5 GM TUBE EACHEYE SCH (20:27)
[2021-05-02] MEDS: hydrALAZINE HCL 25 MG TABLET GT SCH (20:27)
[2021-05-02] MEDS: ATORVASTATIN 40 MG TABLET GT SCH (20:27)
[2021-05-02] MEDS: THIAMINE HCL 100 MG TABLET GT SCH (20:28)
[2021-05-02] MEDS: ASCORBIC ACID 500 MG TABLET GT SCH (20:28)
--- NOTE | 2021-05-02 23:00 | NUR ---
Afebrile, still on Merrem IV for fever/UTI, no adverse reactions noted. Patiño catheter is draining well with yellow urine, with ongoing treatment to sacral pressure sore, on contact isolation for MRSA of sacral wound, no signs of pain or discomfort, will continue monitor.
[2021-05-03 00:08] VITALS: BP 134/76
[2021-05-03] MEDS: LEVALBUTEROL HCL 1.25 MG/0.5 ML NEB NEB SCH ×4 (01:05→21:39)
[2021-05-03] MEDS: IPRATROPIUM BROMIDE 0.5 MG/2.5 ML NEBU NEB SCH ×4 (01:05→21:38)
[2021-05-03] MEDS: HYDROCODONE/APAP 5-325MG TABLET GT PRN ×2 (04:00→12:21)
[2021-05-03] MEDS: ARGININE/GLUTAMINE/CALCIUM BMB 1 EACH POWD.PACK GT SCH ×2 (05:33→18:43)
[2021-05-03] MEDS: BLOOD SUGAR DIAGNOSTIC 1 EACH STRIP VI SCH ×3 (05:33→18:43)
[2021-05-03] MEDS: INSULIN REGULAR, HUMAN 300 UNIT/3 ML VIAL SQ PRN ×3 (05:34→18:44)
[2021-05-03] MEDS: MEROPENEM 1 G in IV NORMAL SALINE 100 ML IV SCH ×3 (05:56→22:09)
[2021-05-03 06:23] VITALS: BP 155/90
[2021-05-03 07:35] VITALS: BP 147/85
[2021-05-03] MEDS: ACETAMINOPHEN 650 MG/20 ML UDC- SA PATIENTS-PAIN ONLY GT SCH ×2 (08:30→20:30)
[2021-05-03] MEDS: AMANTADINE HCL 50 MG/5 ML GT SCH ×2 (09:00→21:19)
[2021-05-03] MEDS: COD LIVER OIL/ZINC OXIDE OINT 113 GM TUBE TOP SCH ×2 (09:00→21:21)
[2021-05-03] MEDS: VITAMINS A AND D OINT TP SCH ×2 (09:00→21:22)
[2021-05-03] MEDS: BACLOFEN 10 MG TABLET GT SCH ×2 (09:00→21:19)
[2021-05-03] MEDS: TERAZOSIN 1 MG CAPSULE GT SCH (09:00)
[2021-05-03] MEDS: METOPROLOL TARTRATE 25 MG TABLET GT SCH ×2 (09:00→21:19)
[2021-05-03] MEDS: TRIAMCINOLONE ACET 0.1% CREAM 15 GM TUBE TP SCH ×2 (09:00→21:21)
[2021-05-03] MEDS: NYSTATIN CREAM 30 GM TUBE TP SCH ×2 (09:00→21:21)
[2021-05-03] MEDS: HEPARIN SODIUM,PORCINE 5,000 UNITS/ML VIAL SQ SCH ×2 (09:00→21:39)
[2021-05-03] MEDS: levETIRAcetam 500 MG/5 ML LIQUID UDC GT SCH ×2 (09:00→21:16)
[2021-05-03] MEDS: PHENOBARBITAL 97.2 MG TABLET GT SCH ×2 (09:00→21:19)
[2021-05-03] MEDS: SODIUM HYPOCHLORITE 0.125% (QUARTER STRENGTH) 473 ML BOTTLE TP SCH ×2 (09:00→21:21)
[2021-05-03] MEDS: FAMOTIDINE 20 MG TABLET GT SCH ×2 (09:00→21:19)
[2021-05-03] MEDS: HYDROGEN PEROXIDE 3% 118 ML BOTTLE TP SCH ×2 (09:03→21:37)
[2021-05-03] MEDS: GLUCERNA 1.2 1000ML LIQUID GT PRN (11:45)
[2021-05-03 12:11] VITALS: BP 142/82
[2021-05-03 18:51] VITALS: BP 148/78
--- NOTE | 2021-05-03 18:54 | NUR ---
Afebrile,continue on ivatb for uti.no adverse reaction noted,HL intact.
[2021-05-03 20:13] VITALS: BP 134/61
[2021-05-03] MEDS: MINERAL OIL/PETROLAT OPHT OINT 3.5 GM TUBE EACHEYE SCH (21:15)
[2021-05-03] MEDS: hydrALAZINE HCL 25 MG TABLET GT SCH (21:16)
[2021-05-03] MEDS: ATORVASTATIN 40 MG TABLET GT SCH (21:19)
[2021-05-03] MEDS: THIAMINE HCL 100 MG TABLET GT SCH (21:20)
[2021-05-03] MEDS: ASCORBIC ACID 500 MG TABLET GT SCH (21:20)
--- NOTE | 2021-05-03 23:01 | NUR ---
Still on Merrem IV for fever/UTI, no adverse reactions noted, afebrile, no respiratory distress noted, Fluids given as ordered, Patiño catheter is draining well with yellow urine, good diane care rendered, on contact isolation precaution for MRSA of the sacral wound, turned and repositioned, kept patient clean and comfortable.
[2021-05-04] MEDS: BLOOD SUGAR DIAGNOSTIC 1 EACH STRIP VI SCH ×4 (00:17→17:38)
[2021-05-04] MEDS: INSULIN REGULAR, HUMAN 300 UNIT/3 ML VIAL SQ PRN ×4 (00:22→17:39)
[2021-05-04] MEDS: IPRATROPIUM BROMIDE 0.5 MG/2.5 ML NEBU NEB SCH ×4 (01:49→19:19)
[2021-05-04] MEDS: LEVALBUTEROL HCL 1.25 MG/0.5 ML NEB NEB SCH ×4 (01:50→19:19)
[2021-05-04] MEDS: ARGININE/GLUTAMINE/CALCIUM BMB 1 EACH POWD.PACK GT SCH ×2 (05:47→17:38)
[2021-05-04] MEDS: MEROPENEM 1 G in IV NORMAL SALINE 100 ML IV SCH ×3 (06:00→22:35)
[2021-05-04 07:50] VITALS: BP 137/72
[2021-05-04] MEDS: BACLOFEN 10 MG TABLET GT SCH ×2 (08:59→21:04)
[2021-05-04] MEDS: levETIRAcetam 500 MG/5 ML LIQUID UDC GT SCH ×2 (08:59→21:04)
[2021-05-04] MEDS: ACETAMINOPHEN 650 MG/20 ML UDC- SA PATIENTS-PAIN ONLY GT SCH ×2 (08:59→20:30)
[2021-05-04] MEDS: TERAZOSIN 1 MG CAPSULE GT SCH (08:59)
[2021-05-04] MEDS: FAMOTIDINE 20 MG TABLET GT SCH ×2 (09:00→21:04)
[2021-05-04] MEDS: PHENOBARBITAL 97.2 MG TABLET GT SCH ×2 (09:00→21:04)
[2021-05-04] MEDS: HYDROGEN PEROXIDE 3% 118 ML BOTTLE TP SCH ×2 (09:00→21:17)
[2021-05-04] MEDS: AMANTADINE HCL 50 MG/5 ML GT SCH ×2 (09:00→21:04)
[2021-05-04] MEDS: METOPROLOL TARTRATE 25 MG TABLET GT SCH ×2 (09:00→21:04)
[2021-05-04] MEDS: COD LIVER OIL/ZINC OXIDE OINT 113 GM TUBE TOP SCH ×2 (09:02→21:06)
[2021-05-04] MEDS: HEPARIN SODIUM,PORCINE 5,000 UNITS/ML VIAL SQ SCH ×2 (09:02→21:06)
[2021-05-04] MEDS: VITAMINS A AND D OINT TP SCH ×2 (09:03→21:06)
[2021-05-04] MEDS: TRIAMCINOLONE ACET 0.1% CREAM 15 GM TUBE TP SCH ×2 (09:03→21:06)
[2021-05-04] MEDS: NYSTATIN CREAM 30 GM TUBE TP SCH ×2 (09:03→21:06)
[2021-05-04] MEDS: SODIUM HYPOCHLORITE 0.125% (QUARTER STRENGTH) 473 ML BOTTLE TP SCH ×2 (09:03→21:06)
[2021-05-04 12:00] VITALS: BP 133/79
[2021-05-04 18:10] VITALS: BP 149/87
[2021-05-04 19:55] VITALS: BP 146/81
[2021-05-04] MEDS: MINERAL OIL/PETROLAT OPHT OINT 3.5 GM TUBE EACHEYE SCH (21:02)
[2021-05-04] MEDS: hydrALAZINE HCL 25 MG TABLET GT SCH (21:03)
[2021-05-04] MEDS: THIAMINE HCL 100 MG TABLET GT SCH (21:04)
[2021-05-04] MEDS: ATORVASTATIN 40 MG TABLET GT SCH (21:04)
[2021-05-04] MEDS: ASCORBIC ACID 500 MG TABLET GT SCH (21:05)
[2021-05-04] MEDS: HYDROCODONE/APAP 5-325MG TABLET GT PRN (23:00)
--- NOTE | 2021-05-04 23:00 | NUR ---
Last dose or Merrem IV given for fever/UTI, no adverse reactions noted, afebrile, no respiratory distress noted, Patiño catheter is draining well with yellow urine, good diane care rendered, kept patient clean and comfortable.
[2021-05-05] MEDS: BLOOD SUGAR DIAGNOSTIC 1 EACH STRIP VI SCH ×4 (00:29→17:27)
[2021-05-05] MEDS: INSULIN REGULAR, HUMAN 300 UNIT/3 ML VIAL SQ PRN ×4 (00:30→17:28)
[2021-05-05] MEDS: LEVALBUTEROL HCL 1.25 MG/0.5 ML NEB NEB SCH ×4 (01:17→19:04)
[2021-05-05] MEDS: IPRATROPIUM BROMIDE 0.5 MG/2.5 ML NEBU NEB SCH ×4 (01:17→19:04)
[2021-05-05] MEDS: GLUCERNA 1.2 1000ML LIQUID GT PRN ×2 (01:20→23:17)
[2021-05-05] MEDS: ARGININE/GLUTAMINE/CALCIUM BMB 1 EACH POWD.PACK GT SCH ×2 (05:36→17:27)
[2021-05-05 06:06] VITALS: BP 140/78
[2021-05-05] MEDS: HYDROGEN PEROXIDE 3% 118 ML BOTTLE TP SCH ×2 (07:31→21:05)
[2021-05-05 07:37] VITALS: BP 141/80
[2021-05-05] MEDS: ACETAMINOPHEN 650 MG/20 ML UDC- SA PATIENTS-PAIN ONLY GT SCH ×2 (08:57→20:30)
[2021-05-05] MEDS: TERAZOSIN 1 MG CAPSULE GT SCH (08:58)
[2021-05-05] MEDS: levETIRAcetam 500 MG/5 ML LIQUID UDC GT SCH ×2 (08:58→20:49)
[2021-05-05] MEDS: BACLOFEN 10 MG TABLET GT SCH ×2 (08:58→20:50)
[2021-05-05] MEDS: FAMOTIDINE 20 MG TABLET GT SCH ×2 (08:59→20:50)
[2021-05-05] MEDS: AMANTADINE HCL 50 MG/5 ML GT SCH ×2 (08:59→20:50)
[2021-05-05] MEDS: METOPROLOL TARTRATE 25 MG TABLET GT SCH ×2 (08:59→20:50)
[2021-05-05] MEDS: PHENOBARBITAL 97.2 MG TABLET GT SCH ×2 (08:59→20:50)
[2021-05-05] MEDS: HEPARIN SODIUM,PORCINE 5,000 UNITS/ML VIAL SQ SCH ×2 (09:00→20:53)
[2021-05-05] MEDS: COD LIVER OIL/ZINC OXIDE OINT 113 GM TUBE TOP SCH ×2 (09:03→20:53)
[2021-05-05] MEDS: TRIAMCINOLONE ACET 0.1% CREAM 15 GM TUBE TP SCH ×2 (09:04→20:53)
[2021-05-05] MEDS: NYSTATIN CREAM 30 GM TUBE TP SCH ×2 (09:04→20:54)
[2021-05-05] MEDS: SODIUM HYPOCHLORITE 0.125% (QUARTER STRENGTH) 473 ML BOTTLE TP SCH ×2 (09:04→20:53)
[2021-05-05] MEDS: VITAMINS A AND D OINT TP SCH ×2 (09:04→20:54)
[2021-05-05 12:00] VITALS: BP 135/85
--- NOTE | 2021-05-05 16:25 | NUR ---
SW emailed patient's daughter Janis the updated guidelines and criteria for visitations.
--- NOTE | 2021-05-05 16:41 | NUR ---
This SPLICER MACHINE OPERATOR notified patient's daughter Janis via email that the next IDT meeting for the patient is scheduled for 05/10 at 11am. This SPLICER MACHINE OPERATOR invited Janis to participate by speaker phone, and asked her to notify this SPLICER MACHINE OPERATOR if she would be available to participate.
[2021-05-05 18:06] VITALS: BP 137/78
[2021-05-05 20:12] VITALS: BP 128/69
[2021-05-05] MEDS: MINERAL OIL/PETROLAT OPHT OINT 3.5 GM TUBE EACHEYE SCH (20:47)
[2021-05-05] MEDS: hydrALAZINE HCL 25 MG TABLET GT SCH (20:48)
[2021-05-05] MEDS: ATORVASTATIN 40 MG TABLET GT SCH (20:50)
[2021-05-05] MEDS: ASCORBIC ACID 500 MG TABLET GT SCH (20:52)
[2021-05-05] MEDS: THIAMINE HCL 100 MG TABLET GT SCH (20:52)
[2021-05-06] MEDS: BLOOD SUGAR DIAGNOSTIC 1 EACH STRIP VI SCH ×4 (00:45→17:31)
[2021-05-06] MEDS: INSULIN REGULAR, HUMAN 300 UNIT/3 ML VIAL SQ PRN ×4 (00:46→17:33)
[2021-05-06 00:53] VITALS: BP 139/69
[2021-05-06] MEDS: IPRATROPIUM BROMIDE 0.5 MG/2.5 ML NEBU NEB SCH ×4 (00:59→21:27)
[2021-05-06] MEDS: LEVALBUTEROL HCL 1.25 MG/0.5 ML NEB NEB SCH ×4 (00:59→21:27)
[2021-05-06] MEDS: ARGININE/GLUTAMINE/CALCIUM BMB 1 EACH POWD.PACK GT SCH ×2 (05:21→17:31)
[2021-05-06 06:32] VITALS: BP 135/72
[2021-05-06 07:51] VITALS: BP 146/73
[2021-05-06] MEDS: BACLOFEN 10 MG TABLET GT SCH ×2 (08:38→20:56)
[2021-05-06] MEDS: TERAZOSIN 1 MG CAPSULE GT SCH (08:38)
[2021-05-06] MEDS: levETIRAcetam 500 MG/5 ML LIQUID UDC GT SCH ×2 (08:38→20:55)
[2021-05-06] MEDS: ACETAMINOPHEN 650 MG/20 ML UDC- SA PATIENTS-PAIN ONLY GT SCH ×2 (08:38→20:30)
[2021-05-06] MEDS: METOPROLOL TARTRATE 25 MG TABLET GT SCH ×2 (08:39→20:56)
[2021-05-06] MEDS: AMANTADINE HCL 50 MG/5 ML GT SCH ×2 (08:39→20:56)
[2021-05-06] MEDS: FAMOTIDINE 20 MG TABLET GT SCH ×2 (08:39→20:56)
[2021-05-06] MEDS: PHENOBARBITAL 97.2 MG TABLET GT SCH ×2 (08:39→20:56)
[2021-05-06] MEDS: NYSTATIN CREAM 30 GM TUBE TP SCH ×2 (08:40→20:57)
[2021-05-06] MEDS: SODIUM HYPOCHLORITE 0.125% (QUARTER STRENGTH) 473 ML BOTTLE TP SCH ×2 (08:40→20:57)
[2021-05-06] MEDS: COD LIVER OIL/ZINC OXIDE OINT 113 GM TUBE TOP SCH ×2 (08:40→20:57)
[2021-05-06] MEDS: TRIAMCINOLONE ACET 0.1% CREAM 15 GM TUBE TP SCH ×2 (08:40→20:57)
[2021-05-06] MEDS: HEPARIN SODIUM,PORCINE 5,000 UNITS/ML VIAL SQ SCH ×2 (08:40→21:02)
[2021-05-06] MEDS: VITAMINS A AND D OINT TP SCH ×2 (08:47→20:58)
[2021-05-06] MEDS: HYDROGEN PEROXIDE 3% 118 ML BOTTLE TP SCH ×2 (09:39→21:26)
[2021-05-06 12:00] VITALS: BP 126/71
[2021-05-06 18:00] VITALS: BP 133/87
[2021-05-06] MEDS: GLUCERNA 1.2 1000ML LIQUID GT PRN (18:54)
[2021-05-06 19:44] VITALS: BP 132/82
[2021-05-06] MEDS: hydrALAZINE HCL 25 MG TABLET GT SCH (20:54)
[2021-05-06] MEDS: MINERAL OIL/PETROLAT OPHT OINT 3.5 GM TUBE EACHEYE SCH (20:54)
[2021-05-06] MEDS: ATORVASTATIN 40 MG TABLET GT SCH (20:56)
[2021-05-06] MEDS: THIAMINE HCL 100 MG TABLET GT SCH (20:57)
[2021-05-06] MEDS: ASCORBIC ACID 500 MG TABLET GT SCH (20:57)
[2021-05-07] VITALS: BP 142/82
[2021-05-07] MEDS: BLOOD SUGAR DIAGNOSTIC 1 EACH STRIP VI SCH ×4 (00:44→17:41)
[2021-05-07] MEDS: INSULIN REGULAR, HUMAN 300 UNIT/3 ML VIAL SQ PRN ×4 (00:45→17:47)
[2021-05-07] MEDS: IPRATROPIUM BROMIDE 0.5 MG/2.5 ML NEBU NEB SCH ×4 (01:49→21:52)
[2021-05-07] MEDS: LEVALBUTEROL HCL 1.25 MG/0.5 ML NEB NEB SCH ×4 (01:50→21:52)
[2021-05-07] MEDS: ARGININE/GLUTAMINE/CALCIUM BMB 1 EACH POWD.PACK GT SCH ×2 (05:59→17:39)
[2021-05-07 06:00] VITALS: BP 139/81
[2021-05-07 07:30] VITALS: BP 149/78
[2021-05-07] MEDS: HYDROGEN PEROXIDE 3% 118 ML BOTTLE TP SCH ×2 (08:20→21:53)
[2021-05-07] MEDS: ACETAMINOPHEN 650 MG/20 ML UDC- SA PATIENTS-PAIN ONLY GT SCH ×2 (08:53→19:52)
[2021-05-07] MEDS: BACLOFEN 10 MG TABLET GT SCH ×2 (08:57→21:25)
[2021-05-07] MEDS: levETIRAcetam 500 MG/5 ML LIQUID UDC GT SCH ×2 (08:57→21:25)
[2021-05-07] MEDS: TERAZOSIN 1 MG CAPSULE GT SCH (08:57)
[2021-05-07] MEDS: FAMOTIDINE 20 MG TABLET GT SCH ×2 (08:57→21:25)
[2021-05-07] MEDS: METOPROLOL TARTRATE 25 MG TABLET GT SCH ×2 (08:57→21:27)
[2021-05-07] MEDS: TRIAMCINOLONE ACET 0.1% CREAM 15 GM TUBE TP SCH ×2 (08:58→21:26)
[2021-05-07] MEDS: PHENOBARBITAL 97.2 MG TABLET GT SCH ×2 (08:58→21:25)
[2021-05-07] MEDS: NYSTATIN CREAM 30 GM TUBE TP SCH ×2 (08:58→21:26)
[2021-05-07] MEDS: HEPARIN SODIUM,PORCINE 5,000 UNITS/ML VIAL SQ SCH ×2 (08:58→21:32)
[2021-05-07] MEDS: AMANTADINE HCL 50 MG/5 ML GT SCH ×2 (08:58→21:25)
[2021-05-07] MEDS: COD LIVER OIL/ZINC OXIDE OINT 113 GM TUBE TOP SCH ×2 (08:58→21:25)
[2021-05-07] MEDS: SODIUM HYPOCHLORITE 0.125% (QUARTER STRENGTH) 473 ML BOTTLE TP SCH ×2 (08:58→21:26)
[2021-05-07] MEDS: VITAMINS A AND D OINT TP SCH ×2 (08:59→21:26)
[2021-05-07] MEDS: HYDROCODONE/APAP 5-325MG TABLET GT PRN (10:00)
[2021-05-07 12:07] VITALS: BP 129/77
[2021-05-07 17:51] VITALS: BP 141/87
[2021-05-07 20:21] VITALS: BP 139/84
[2021-05-07] MEDS: MINERAL OIL/PETROLAT OPHT OINT 3.5 GM TUBE EACHEYE SCH (21:24)
[2021-05-07] MEDS: ASCORBIC ACID 500 MG TABLET GT SCH (21:25)
[2021-05-07] MEDS: THIAMINE HCL 100 MG TABLET GT SCH (21:25)
[2021-05-07] MEDS: ATORVASTATIN 40 MG TABLET GT SCH (21:25)
[2021-05-07] MEDS: hydrALAZINE HCL 25 MG TABLET GT SCH (21:25)
[2021-05-08] VITALS (7 sets, daily range): BP systolic 133–155; BP diastolic 68–91
[2021-05-08] MEDS: BLOOD SUGAR DIAGNOSTIC 1 EACH STRIP VI SCH ×5 (00:05→23:36)
[2021-05-08] MEDS: INSULIN REGULAR, HUMAN 300 UNIT/3 ML VIAL SQ PRN ×5 (00:05→23:37)
[2021-05-08] MEDS: IPRATROPIUM BROMIDE 0.5 MG/2.5 ML NEBU NEB SCH ×4 (01:45→21:08)
[2021-05-08] MEDS: LEVALBUTEROL HCL 1.25 MG/0.5 ML NEB NEB SCH ×4 (01:46→21:08)
[2021-05-08] MEDS: ARGININE/GLUTAMINE/CALCIUM BMB 1 EACH POWD.PACK GT SCH ×2 (05:58→17:19)
[2021-05-08] MEDS: HYDROCODONE/APAP 5-325MG TABLET GT PRN (06:32)
[2021-05-08] MEDS: ACETAMINOPHEN 650 MG/20 ML UDC- SA PATIENTS-PAIN ONLY GT SCH ×2 (08:12→21:26)
[2021-05-08] MEDS: levETIRAcetam 500 MG/5 ML LIQUID UDC GT SCH ×2 (08:13→21:28)
[2021-05-08] MEDS: TERAZOSIN 1 MG CAPSULE GT SCH (08:13)
[2021-05-08] MEDS: BACLOFEN 10 MG TABLET GT SCH ×2 (08:14→21:28)
[2021-05-08] MEDS: PHENOBARBITAL 97.2 MG TABLET GT SCH ×2 (08:15→21:29)
[2021-05-08] MEDS: FAMOTIDINE 20 MG TABLET GT SCH ×2 (08:15→21:29)
[2021-05-08] MEDS: AMANTADINE HCL 50 MG/5 ML GT SCH ×2 (08:15→21:30)
[2021-05-08] MEDS: METOPROLOL TARTRATE 25 MG TABLET GT SCH ×2 (08:15→21:29)
[2021-05-08] MEDS: COD LIVER OIL/ZINC OXIDE OINT 113 GM TUBE TOP SCH ×2 (08:16→21:32)
[2021-05-08] MEDS: HEPARIN SODIUM,PORCINE 5,000 UNITS/ML VIAL SQ SCH ×2 (08:16→21:32)
[2021-05-08] MEDS: TRIAMCINOLONE ACET 0.1% CREAM 15 GM TUBE TP SCH ×2 (08:17→21:32)
[2021-05-08] MEDS: VITAMINS A AND D OINT TP SCH ×2 (08:17→21:33)
[2021-05-08] MEDS: NYSTATIN CREAM 30 GM TUBE TP SCH ×2 (08:17→21:32)
[2021-05-08] MEDS: SODIUM HYPOCHLORITE 0.125% (QUARTER STRENGTH) 473 ML BOTTLE TP SCH ×2 (08:17→21:32)
[2021-05-08] MEDS: HYDROGEN PEROXIDE 3% 118 ML BOTTLE TP SCH ×2 (10:30→21:09)
[2021-05-08] MEDS: GLUCERNA 1.2 1000ML LIQUID GT PRN (11:14)
[2021-05-08] MEDS: LORAZEPAM 1 MG TABLET GT PRN (20:00)
[2021-05-08] MEDS: MINERAL OIL/PETROLAT OPHT OINT 3.5 GM TUBE EACHEYE SCH (21:27)
[2021-05-08] MEDS: hydrALAZINE HCL 25 MG TABLET GT SCH (21:27)
[2021-05-08] MEDS: ATORVASTATIN 40 MG TABLET GT SCH (21:28)
[2021-05-08] MEDS: THIAMINE HCL 100 MG TABLET GT SCH (21:30)
[2021-05-08] MEDS: ASCORBIC ACID 500 MG TABLET GT SCH (21:30)
[2021-05-09] MEDS: LEVALBUTEROL HCL 1.25 MG/0.5 ML NEB NEB SCH ×4 (01:53→20:00)
[2021-05-09] MEDS: IPRATROPIUM BROMIDE 0.5 MG/2.5 ML NEBU NEB SCH ×4 (01:53→20:00)
[2021-05-09] MEDS: GLUCERNA 1.2 1000ML LIQUID GT PRN ×2 (04:00→23:00)
[2021-05-09] MEDS: ARGININE/GLUTAMINE/CALCIUM BMB 1 EACH POWD.PACK GT SCH ×2 (05:31→17:05)
[2021-05-09] MEDS: BLOOD SUGAR DIAGNOSTIC 1 EACH STRIP VI SCH ×4 (05:32→23:11)
[2021-05-09] MEDS: INSULIN REGULAR, HUMAN 300 UNIT/3 ML VIAL SQ PRN ×4 (05:33→23:12)
[2021-05-09 06:03] VITALS: BP 145/83
[2021-05-09 07:32] VITALS: BP 144/86
[2021-05-09] MEDS: ACETAMINOPHEN 650 MG/20 ML UDC- SA PATIENTS-PAIN ONLY GT SCH ×2 (08:30→20:30)
[2021-05-09] MEDS: HYDROGEN PEROXIDE 3% 118 ML BOTTLE TP SCH ×2 (09:00→20:26)
[2021-05-09] MEDS: METOPROLOL TARTRATE 25 MG TABLET GT SCH ×2 (09:57→21:33)
[2021-05-09] MEDS: TERAZOSIN 1 MG CAPSULE GT SCH (09:57)
[2021-05-09] MEDS: HEPARIN SODIUM,PORCINE 5,000 UNITS/ML VIAL SQ SCH ×2 (09:57→21:36)
[2021-05-09] MEDS: BACLOFEN 10 MG TABLET GT SCH ×2 (09:57→21:33)
[2021-05-09] MEDS: levETIRAcetam 500 MG/5 ML LIQUID UDC GT SCH ×2 (09:57→21:33)
[2021-05-09] MEDS: AMANTADINE HCL 50 MG/5 ML GT SCH ×2 (09:57→21:33)
[2021-05-09] MEDS: PHENOBARBITAL 97.2 MG TABLET GT SCH ×2 (09:57→21:33)
[2021-05-09] MEDS: FAMOTIDINE 20 MG TABLET GT SCH ×2 (09:57→21:33)
[2021-05-09] MEDS: NYSTATIN CREAM 30 GM TUBE TP SCH ×2 (09:58→21:36)
[2021-05-09] MEDS: TRIAMCINOLONE ACET 0.1% CREAM 15 GM TUBE TP SCH ×2 (09:58→21:36)
[2021-05-09] MEDS: COD LIVER OIL/ZINC OXIDE OINT 113 GM TUBE TOP SCH ×2 (09:58→21:36)
[2021-05-09] MEDS: VITAMINS A AND D OINT TP SCH ×2 (09:58→21:36)
[2021-05-09] MEDS: SODIUM HYPOCHLORITE 0.125% (QUARTER STRENGTH) 473 ML BOTTLE TP SCH ×2 (09:58→21:36)
--- NOTE | 2021-05-09 10:21 | NUR ---
This CAN SEALER received an email from patient's daughter Janis in response to the email this CAN SEALER sent Janis on 05/05/21 regarding the IDT meeting for 05/10/21. Janis stated she would be available to participate by speaker phone. This CAN SEALER to call Janis during the meeting.
[2021-05-09 20:24] VITALS: BP 145/85
[2021-05-09] MEDS: MINERAL OIL/PETROLAT OPHT OINT 3.5 GM TUBE EACHEYE SCH (21:31)
[2021-05-09] MEDS: hydrALAZINE HCL 25 MG TABLET GT SCH (21:31)
[2021-05-09] MEDS: ATORVASTATIN 40 MG TABLET GT SCH (21:33)
[2021-05-09] MEDS: THIAMINE HCL 100 MG TABLET GT SCH (21:34)
[2021-05-09] MEDS: ASCORBIC ACID 500 MG TABLET GT SCH (21:34)
[2021-05-09] MEDS: HYDROCODONE/APAP 5-325MG TABLET GT PRN (22:00)
[2021-05-10] VITALS: BP 152/86
[2021-05-10] MEDS: LEVALBUTEROL HCL 1.25 MG/0.5 ML NEB NEB SCH ×4 (01:27→19:04)
[2021-05-10] MEDS: IPRATROPIUM BROMIDE 0.5 MG/2.5 ML NEBU NEB SCH ×4 (01:27→19:04)
[2021-05-10] MEDS: BLOOD SUGAR DIAGNOSTIC 1 EACH STRIP VI SCH ×4 (05:10→23:16)
[2021-05-10] MEDS: ARGININE/GLUTAMINE/CALCIUM BMB 1 EACH POWD.PACK GT SCH ×2 (05:10→17:10)
[2021-05-10] MEDS: INSULIN REGULAR, HUMAN 300 UNIT/3 ML VIAL SQ PRN ×4 (05:13→23:17)
[2021-05-10 06:00] VITALS: BP 152/91
[2021-05-10 07:33] VITALS: BP 143/68
[2021-05-10] MEDS: ACETAMINOPHEN 650 MG/20 ML UDC- SA PATIENTS-PAIN ONLY GT SCH ×2 (08:30→20:30)
[2021-05-10] MEDS: HYDROGEN PEROXIDE 3% 118 ML BOTTLE TP SCH ×2 (09:00→21:40)
[2021-05-10] MEDS: METOPROLOL TARTRATE 25 MG TABLET GT SCH ×2 (09:47→21:56)
[2021-05-10] MEDS: AMANTADINE HCL 50 MG/5 ML GT SCH ×2 (09:47→21:56)
[2021-05-10] MEDS: FAMOTIDINE 20 MG TABLET GT SCH ×2 (09:47→21:56)
[2021-05-10] MEDS: levETIRAcetam 500 MG/5 ML LIQUID UDC GT SCH ×2 (09:47→21:55)
[2021-05-10] MEDS: BACLOFEN 10 MG TABLET GT SCH ×2 (09:47→21:55)
[2021-05-10] MEDS: TERAZOSIN 1 MG CAPSULE GT SCH (09:47)
[2021-05-10] MEDS: HEPARIN SODIUM,PORCINE 5,000 UNITS/ML VIAL SQ SCH ×2 (09:47→21:58)
[2021-05-10] MEDS: PHENOBARBITAL 97.2 MG TABLET GT SCH ×2 (09:47→21:56)
[2021-05-10] MEDS: SODIUM HYPOCHLORITE 0.125% (QUARTER STRENGTH) 473 ML BOTTLE TP SCH ×2 (09:48→21:58)
[2021-05-10] MEDS: VITAMINS A AND D OINT TP SCH ×2 (09:48→21:58)
[2021-05-10] MEDS: NYSTATIN CREAM 30 GM TUBE TP SCH ×2 (09:48→21:58)
[2021-05-10] MEDS: TRIAMCINOLONE ACET 0.1% CREAM 15 GM TUBE TP SCH ×2 (09:48→21:58)
[2021-05-10] MEDS: COD LIVER OIL/ZINC OXIDE OINT 113 GM TUBE TOP SCH ×2 (09:48→21:58)
--- NOTE | 2021-05-10 16:55 | NUR ---
INTERDISCIPLINARY PLAN OF CARE CONFERENCE was held today. Patient's daughter Janis participated in the meeting today by speaker phone. Dr. Peralta and the Interdisciplinary Team reviewed the current plan of care in detail. RN reported on patient's medical condition and recently completed antibiotic treatment. See RN IDT conference notes. Pharmacy reviewed patient's current medications. No major changes in condition were reported by nursing or by any of the other disciplines. See all disciplines IDT notes and physician's progress notes for additional details. Janis stated not having any questions/concerns at this time, and reported being content with the current plan of care.
[2021-05-10 20:24] VITALS: BP 133/78
[2021-05-10] MEDS: MINERAL OIL/PETROLAT OPHT OINT 3.5 GM TUBE EACHEYE SCH (21:53)
[2021-05-10] MEDS: ATORVASTATIN 40 MG TABLET GT SCH (21:55)
[2021-05-10] MEDS: hydrALAZINE HCL 25 MG TABLET GT SCH (21:55)
[2021-05-10] MEDS: ASCORBIC ACID 500 MG TABLET GT SCH (21:56)
[2021-05-10] MEDS: THIAMINE HCL 100 MG TABLET GT SCH (21:56)
[2021-05-10 23:58] VITALS: BP 146/85
[2021-05-11] MEDS: IPRATROPIUM BROMIDE 0.5 MG/2.5 ML NEBU NEB SCH ×4 (00:30→21:23)
[2021-05-11] MEDS: LEVALBUTEROL HCL 1.25 MG/0.5 ML NEB NEB SCH ×4 (00:30→21:23)
[2021-05-11] MEDS: ARGININE/GLUTAMINE/CALCIUM BMB 1 EACH POWD.PACK GT SCH ×2 (05:28→17:32)
[2021-05-11] MEDS: BLOOD SUGAR DIAGNOSTIC 1 EACH STRIP VI SCH ×3 (05:28→17:32)
[2021-05-11] MEDS: INSULIN REGULAR, HUMAN 300 UNIT/3 ML VIAL SQ PRN ×3 (05:29→17:34)
[2021-05-11 06:00] VITALS: BP 144/82
[2021-05-11 07:32] VITALS: BP 149/82
[2021-05-11] MEDS: levETIRAcetam 500 MG/5 ML LIQUID UDC GT SCH ×2 (08:12→20:40)
[2021-05-11] MEDS: TERAZOSIN 1 MG CAPSULE GT SCH (08:12)
[2021-05-11] MEDS: BACLOFEN 10 MG TABLET GT SCH ×2 (08:12→20:41)
[2021-05-11] MEDS: COD LIVER OIL/ZINC OXIDE OINT 113 GM TUBE TOP SCH ×2 (08:13→20:46)
[2021-05-11] MEDS: NYSTATIN CREAM 30 GM TUBE TP SCH ×2 (08:13→20:47)
[2021-05-11] MEDS: TRIAMCINOLONE ACET 0.1% CREAM 15 GM TUBE TP SCH ×2 (08:13→20:47)
[2021-05-11] MEDS: FAMOTIDINE 20 MG TABLET GT SCH ×2 (08:13→20:43)
[2021-05-11] MEDS: METOPROLOL TARTRATE 25 MG TABLET GT SCH ×2 (08:13→20:43)
[2021-05-11] MEDS: AMANTADINE HCL 50 MG/5 ML GT SCH ×2 (08:13→20:43)
[2021-05-11] MEDS: PHENOBARBITAL 97.2 MG TABLET GT SCH ×2 (08:13→20:43)
[2021-05-11] MEDS: ACETAMINOPHEN 650 MG/20 ML UDC- SA PATIENTS-PAIN ONLY GT SCH ×2 (08:14→20:36)
[2021-05-11] MEDS: SODIUM HYPOCHLORITE 0.125% (QUARTER STRENGTH) 473 ML BOTTLE TP SCH ×2 (08:14→20:46)
[2021-05-11] MEDS: VITAMINS A AND D OINT TP SCH ×2 (08:14→20:47)
[2021-05-11] MEDS: HEPARIN SODIUM,PORCINE 5,000 UNITS/ML VIAL SQ SCH ×2 (08:17→20:45)
[2021-05-11] MEDS: HYDROGEN PEROXIDE 3% 118 ML BOTTLE TP SCH ×2 (08:39→21:22)
[2021-05-11 12:00] VITALS: BP 139/76
[2021-05-11] MEDS: GLUCERNA 1.2 1000ML LIQUID GT PRN (13:43)
[2021-05-11 18:00] VITALS: BP 135/82
[2021-05-11 20:07] VITALS: BP 138/80
[2021-05-11] MEDS: MINERAL OIL/PETROLAT OPHT OINT 3.5 GM TUBE EACHEYE SCH (20:39)
[2021-05-11] MEDS: hydrALAZINE HCL 25 MG TABLET GT SCH (20:40)
[2021-05-11] MEDS: ATORVASTATIN 40 MG TABLET GT SCH (20:42)
[2021-05-11] MEDS: ASCORBIC ACID 500 MG TABLET GT SCH (20:44)
[2021-05-11] MEDS: THIAMINE HCL 100 MG TABLET GT SCH (20:44)
[2021-05-12] MEDS: INSULIN REGULAR, HUMAN 300 UNIT/3 ML VIAL SQ PRN ×4 (00:15→17:20)
[2021-05-12] MEDS: IPRATROPIUM BROMIDE 0.5 MG/2.5 ML NEBU NEB SCH ×4 (01:39→19:14)
[2021-05-12] MEDS: LEVALBUTEROL HCL 1.25 MG/0.5 ML NEB NEB SCH ×4 (01:39→19:14)
[2021-05-12 01:42] VITALS: BP 142/86
[2021-05-12] MEDS: ARGININE/GLUTAMINE/CALCIUM BMB 1 EACH POWD.PACK GT SCH ×2 (05:27→17:15)
[2021-05-12] MEDS: BLOOD SUGAR DIAGNOSTIC 1 EACH STRIP VI SCH ×4 (05:31→17:18)
[2021-05-12 06:09] VITALS: BP 129/77
[2021-05-12 07:57] VITALS: BP 133/78
[2021-05-12] MEDS: ACETAMINOPHEN 650 MG/20 ML UDC- SA PATIENTS-PAIN ONLY GT SCH ×2 (08:30→20:30)
[2021-05-12] MEDS: FAMOTIDINE 20 MG TABLET GT SCH ×2 (08:31→20:31)
[2021-05-12] MEDS: BACLOFEN 10 MG TABLET GT SCH ×2 (08:31→20:31)
[2021-05-12] MEDS: TERAZOSIN 1 MG CAPSULE GT SCH (08:31)
[2021-05-12] MEDS: levETIRAcetam 500 MG/5 ML LIQUID UDC GT SCH ×2 (08:31→20:31)
[2021-05-12] MEDS: AMANTADINE HCL 50 MG/5 ML GT SCH ×2 (08:31→20:31)
[2021-05-12] MEDS: METOPROLOL TARTRATE 25 MG TABLET GT SCH ×2 (08:31→20:31)
[2021-05-12] MEDS: PHENOBARBITAL 97.2 MG TABLET GT SCH ×2 (08:31→20:31)
[2021-05-12] MEDS: HEPARIN SODIUM,PORCINE 5,000 UNITS/ML VIAL SQ SCH ×2 (08:32→20:32)
[2021-05-12] MEDS: COD LIVER OIL/ZINC OXIDE OINT 113 GM TUBE TOP SCH ×2 (08:36→20:34)
[2021-05-12] MEDS: TRIAMCINOLONE ACET 0.1% CREAM 15 GM TUBE TP SCH ×2 (08:36→20:34)
[2021-05-12] MEDS: VITAMINS A AND D OINT TP SCH ×2 (08:36→20:34)
[2021-05-12] MEDS: SODIUM HYPOCHLORITE 0.125% (QUARTER STRENGTH) 473 ML BOTTLE TP SCH ×2 (08:36→20:34)
[2021-05-12] MEDS: NYSTATIN CREAM 30 GM TUBE TP SCH ×2 (08:36→20:34)
[2021-05-12] MEDS: HYDROGEN PEROXIDE 3% 118 ML BOTTLE TP SCH ×2 (09:35→20:23)
[2021-05-12 12:00] VITALS: BP 132/74
[2021-05-12] MEDS: GLUCERNA 1.2 1000ML LIQUID GT PRN (12:10)
[2021-05-12 18:31] VITALS: BP 138/77
[2021-05-12 20:04] VITALS: BP 141/83
[2021-05-12] MEDS: MINERAL OIL/PETROLAT OPHT OINT 3.5 GM TUBE EACHEYE SCH (20:30)
[2021-05-12] MEDS: hydrALAZINE HCL 25 MG TABLET GT SCH (20:30)
[2021-05-12] MEDS: ATORVASTATIN 40 MG TABLET GT SCH (20:31)
[2021-05-12] MEDS: ASCORBIC ACID 500 MG TABLET GT SCH (20:32)
[2021-05-12] MEDS: THIAMINE HCL 100 MG TABLET GT SCH (20:32)
[2021-05-13] MEDS: BLOOD SUGAR DIAGNOSTIC 1 EACH STRIP VI SCH ×4 (00:28→17:32)
[2021-05-13] MEDS: INSULIN REGULAR, HUMAN 300 UNIT/3 ML VIAL SQ PRN ×4 (00:29→17:33)
[2021-05-13 00:30] VITALS: BP 134/77
[2021-05-13] MEDS: IPRATROPIUM BROMIDE 0.5 MG/2.5 ML NEBU NEB SCH ×4 (01:04→18:54)
[2021-05-13] MEDS: LEVALBUTEROL HCL 1.25 MG/0.5 ML NEB NEB SCH ×4 (01:04→18:54)
[2021-05-13] MEDS: ARGININE/GLUTAMINE/CALCIUM BMB 1 EACH POWD.PACK GT SCH ×2 (05:44→17:32)
[2021-05-13] MEDS: GLUCERNA 1.2 1000ML LIQUID GT PRN (05:45)
[2021-05-13 06:14] VITALS: BP 139/82
[2021-05-13 07:46] VITALS: BP 146/80
[2021-05-13] MEDS: ACETAMINOPHEN 650 MG/20 ML UDC- SA PATIENTS-PAIN ONLY GT SCH ×2 (08:56→21:11)
[2021-05-13] MEDS: METOPROLOL TARTRATE 25 MG TABLET GT SCH ×2 (08:57→21:12)
[2021-05-13] MEDS: TERAZOSIN 1 MG CAPSULE GT SCH (08:57)
[2021-05-13] MEDS: PHENOBARBITAL 97.2 MG TABLET GT SCH ×2 (08:57→21:12)
[2021-05-13] MEDS: BACLOFEN 10 MG TABLET GT SCH ×2 (08:57→21:12)
[2021-05-13] MEDS: AMANTADINE HCL 50 MG/5 ML GT SCH ×2 (08:57→21:12)
[2021-05-13] MEDS: FAMOTIDINE 20 MG TABLET GT SCH ×2 (08:57→21:12)
[2021-05-13] MEDS: levETIRAcetam 500 MG/5 ML LIQUID UDC GT SCH ×2 (08:57→21:12)
[2021-05-13] MEDS: HEPARIN SODIUM,PORCINE 5,000 UNITS/ML VIAL SQ SCH ×2 (08:58→21:00)
[2021-05-13] MEDS: COD LIVER OIL/ZINC OXIDE OINT 113 GM TUBE TOP SCH ×2 (09:03→21:12)
[2021-05-13] MEDS: SODIUM HYPOCHLORITE 0.125% (QUARTER STRENGTH) 473 ML BOTTLE TP SCH ×2 (09:03→21:00)
[2021-05-13] MEDS: NYSTATIN CREAM 30 GM TUBE TP SCH ×2 (09:04→21:13)
[2021-05-13] MEDS: VITAMINS A AND D OINT TP SCH ×2 (09:04→21:13)
[2021-05-13] MEDS: TRIAMCINOLONE ACET 0.1% CREAM 15 GM TUBE TP SCH ×2 (09:04→21:13)
[2021-05-13] MEDS: HYDROGEN PEROXIDE 3% 118 ML BOTTLE TP SCH ×2 (09:32→21:51)
[2021-05-13 12:00] VITALS: BP 136/78
[2021-05-13 18:00] VITALS: BP 141/83
[2021-05-13 20:28] VITALS: BP 127/88
[2021-05-13] MEDS: hydrALAZINE HCL 25 MG TABLET GT SCH (21:11)
[2021-05-13] MEDS: MINERAL OIL/PETROLAT OPHT OINT 3.5 GM TUBE EACHEYE SCH (21:11)
[2021-05-13] MEDS: ASCORBIC ACID 500 MG TABLET GT SCH (21:12)
[2021-05-13] MEDS: THIAMINE HCL 100 MG TABLET GT SCH (21:12)
[2021-05-13] MEDS: ATORVASTATIN 40 MG TABLET GT SCH (21:12)
[2021-05-14] MEDS: INSULIN REGULAR, HUMAN 300 UNIT/3 ML VIAL SQ PRN ×3 (00:35→17:11)
[2021-05-14] MEDS: LEVALBUTEROL HCL 1.25 MG/0.5 ML NEB NEB SCH ×4 (01:30→18:58)
[2021-05-14] MEDS: IPRATROPIUM BROMIDE 0.5 MG/2.5 ML NEBU NEB SCH ×4 (01:30→18:58)
[2021-05-14] MEDS: GLUCERNA 1.2 1000ML LIQUID GT PRN (01:50)
[2021-05-14] MEDS: ARGININE/GLUTAMINE/CALCIUM BMB 1 EACH POWD.PACK GT SCH ×2 (05:09→17:10)
[2021-05-14] MEDS: BLOOD SUGAR DIAGNOSTIC 1 EACH STRIP VI SCH ×4 (05:10→17:08)
[2021-05-14] MEDS: HYDROCODONE/APAP 5-325MG TABLET GT PRN (05:26)
[2021-05-14 08:05] VITALS: BP 143/83
[2021-05-14] MEDS: ACETAMINOPHEN 650 MG/20 ML UDC- SA PATIENTS-PAIN ONLY GT SCH ×2 (08:30→20:08)
[2021-05-14] MEDS: VITAMINS A AND D OINT TP SCH ×2 (09:00→21:04)
[2021-05-14] MEDS: HYDROGEN PEROXIDE 3% 118 ML BOTTLE TP SCH ×2 (09:00→21:17)
[2021-05-14] MEDS: NYSTATIN CREAM 30 GM TUBE TP SCH ×2 (09:00→21:04)
[2021-05-14] MEDS: TERAZOSIN 1 MG CAPSULE GT SCH (09:36)
[2021-05-14] MEDS: levETIRAcetam 500 MG/5 ML LIQUID UDC GT SCH ×2 (09:37→20:10)
[2021-05-14] MEDS: BACLOFEN 10 MG TABLET GT SCH ×2 (09:38→20:11)
[2021-05-14] MEDS: FAMOTIDINE 20 MG TABLET GT SCH ×2 (09:41→20:12)
[2021-05-14] MEDS: PHENOBARBITAL 97.2 MG TABLET GT SCH ×2 (09:41→20:18)
[2021-05-14] MEDS: METOPROLOL TARTRATE 25 MG TABLET GT SCH ×2 (09:41→20:12)
[2021-05-14] MEDS: COD LIVER OIL/ZINC OXIDE OINT 113 GM TUBE TOP SCH ×2 (09:41→21:02)
[2021-05-14] MEDS: AMANTADINE HCL 50 MG/5 ML GT SCH ×2 (09:41→20:13)
[2021-05-14] MEDS: HEPARIN SODIUM,PORCINE 5,000 UNITS/ML VIAL SQ SCH ×2 (09:42→20:17)
[2021-05-14] MEDS: TRIAMCINOLONE ACET 0.1% CREAM 15 GM TUBE TP SCH ×2 (09:45→21:04)
[2021-05-14] MEDS: SODIUM HYPOCHLORITE 0.125% (QUARTER STRENGTH) 473 ML BOTTLE TP SCH ×2 (09:45→21:04)
[2021-05-14 12:00] VITALS: BP 151/72
[2021-05-14 18:35] VITALS: BP 141/80
[2021-05-14 19:45] VITALS: BP 140/81
[2021-05-14] MEDS: MINERAL OIL/PETROLAT OPHT OINT 3.5 GM TUBE EACHEYE SCH (20:08)
[2021-05-14] MEDS: hydrALAZINE HCL 25 MG TABLET GT SCH (20:09)
[2021-05-14] MEDS: ATORVASTATIN 40 MG TABLET GT SCH (20:11)
[2021-05-14] MEDS: ASCORBIC ACID 500 MG TABLET GT SCH (20:14)
[2021-05-14] MEDS: THIAMINE HCL 100 MG TABLET GT SCH (20:14)
[2021-05-15] MEDS: LEVALBUTEROL HCL 1.25 MG/0.5 ML NEB NEB SCH ×4 (00:48→20:15)
[2021-05-15] MEDS: IPRATROPIUM BROMIDE 0.5 MG/2.5 ML NEBU NEB SCH ×4 (00:48→20:15)
[2021-05-15] MEDS: INSULIN REGULAR, HUMAN 300 UNIT/3 ML VIAL SQ PRN ×4 (01:39→17:47)
[2021-05-15] MEDS: ARGININE/GLUTAMINE/CALCIUM BMB 1 EACH POWD.PACK GT SCH ×2 (05:40→17:45)
[2021-05-15] MEDS: BLOOD SUGAR DIAGNOSTIC 1 EACH STRIP VI SCH ×4 (05:41→17:46)
[2021-05-15 07:24] VITALS: BP 148/85
[2021-05-15] MEDS: HYDROGEN PEROXIDE 3% 118 ML BOTTLE TP SCH ×2 (08:27→20:47)
[2021-05-15] MEDS: BACLOFEN 10 MG TABLET GT SCH ×2 (08:48→21:14)
[2021-05-15] MEDS: ACETAMINOPHEN 650 MG/20 ML UDC- SA PATIENTS-PAIN ONLY GT SCH ×2 (08:48→21:13)
[2021-05-15] MEDS: TERAZOSIN 1 MG CAPSULE GT SCH (08:48)
[2021-05-15] MEDS: levETIRAcetam 500 MG/5 ML LIQUID UDC GT SCH ×2 (08:48→21:14)
[2021-05-15] MEDS: AMANTADINE HCL 50 MG/5 ML GT SCH ×2 (08:49→21:14)
[2021-05-15] MEDS: SODIUM HYPOCHLORITE 0.125% (QUARTER STRENGTH) 473 ML BOTTLE TP SCH (08:49)
[2021-05-15] MEDS: NYSTATIN CREAM 30 GM TUBE TP SCH (08:49)
[2021-05-15] MEDS: METOPROLOL TARTRATE 25 MG TABLET GT SCH ×2 (08:49→21:14)
[2021-05-15] MEDS: COD LIVER OIL/ZINC OXIDE OINT 113 GM TUBE TOP SCH ×2 (08:49→21:15)
[2021-05-15] MEDS: PHENOBARBITAL 97.2 MG TABLET GT SCH ×2 (08:49→21:14)
[2021-05-15] MEDS: VITAMINS A AND D OINT TP SCH ×2 (08:49→21:15)
[2021-05-15] MEDS: TRIAMCINOLONE ACET 0.1% CREAM 15 GM TUBE TP SCH (08:49)
[2021-05-15] MEDS: FAMOTIDINE 20 MG TABLET GT SCH ×2 (08:49→21:14)
[2021-05-15] MEDS: HEPARIN SODIUM,PORCINE 5,000 UNITS/ML VIAL SQ SCH ×2 (08:50→21:00)
[2021-05-15 12:00] VITALS: BP 149/89
[2021-05-15] MEDS: GLUCERNA 1.2 1000ML LIQUID GT PRN ×2 (14:20→17:46)
--- NOTE | 2021-05-15 17:48 | NUR ---
SEEN BY DR. WEBSTER AND WITH NNO.
[2021-05-15 17:51] VITALS: BP 155/85
[2021-05-15 20:00] VITALS: BP 141/85
[2021-05-15] MEDS: MINERAL OIL/PETROLAT OPHT OINT 3.5 GM TUBE EACHEYE SCH (21:13)
[2021-05-15] MEDS: ATORVASTATIN 40 MG TABLET GT SCH (21:14)
[2021-05-15] MEDS: THIAMINE HCL 100 MG TABLET GT SCH (21:14)
[2021-05-15] MEDS: ASCORBIC ACID 500 MG TABLET GT SCH (21:14)
[2021-05-15] MEDS: hydrALAZINE HCL 25 MG TABLET GT SCH (21:14)
[2021-05-16] VITALS (7 sets, daily range): BP systolic 122–155; BP diastolic 65–85
[2021-05-16] MEDS: INSULIN REGULAR, HUMAN 300 UNIT/3 ML VIAL SQ PRN ×4 (00:30→23:05)
[2021-05-16] MEDS: LEVALBUTEROL HCL 1.25 MG/0.5 ML NEB NEB SCH ×4 (02:01→18:54)
[2021-05-16] MEDS: IPRATROPIUM BROMIDE 0.5 MG/2.5 ML NEBU NEB SCH ×4 (02:01→18:54)
[2021-05-16] MEDS: ARGININE/GLUTAMINE/CALCIUM BMB 1 EACH POWD.PACK GT SCH ×2 (05:07→17:49)
[2021-05-16] MEDS: BLOOD SUGAR DIAGNOSTIC 1 EACH STRIP VI SCH ×5 (05:07→23:04)
[2021-05-16] MEDS: HYDROCODONE/APAP 5-325MG TABLET GT PRN (05:08)
[2021-05-16] MEDS: GLUCERNA 1.2 1000ML LIQUID GT PRN ×2 (05:08→22:52)
[2021-05-16] MEDS: ACETAMINOPHEN 650 MG/20 ML UDC- SA PATIENTS-PAIN ONLY GT SCH ×2 (08:30→21:26)
[2021-05-16] MEDS: levETIRAcetam 500 MG/5 ML LIQUID UDC GT SCH ×2 (09:00→21:27)
[2021-05-16] MEDS: FAMOTIDINE 20 MG TABLET GT SCH ×2 (09:00→21:27)
[2021-05-16] MEDS: TERAZOSIN 1 MG CAPSULE GT SCH (09:00)
[2021-05-16] MEDS: VITAMINS A AND D OINT TP SCH ×2 (09:00→21:28)
[2021-05-16] MEDS: COD LIVER OIL/ZINC OXIDE OINT 113 GM TUBE TOP SCH ×2 (09:00→21:28)
[2021-05-16] MEDS: BACLOFEN 10 MG TABLET GT SCH ×2 (09:00→21:27)
[2021-05-16] MEDS: HEPARIN SODIUM,PORCINE 5,000 UNITS/ML VIAL SQ SCH ×2 (09:00→21:00)
[2021-05-16] MEDS: AMANTADINE HCL 50 MG/5 ML GT SCH ×2 (09:00→21:27)
[2021-05-16] MEDS: METOPROLOL TARTRATE 25 MG TABLET GT SCH ×2 (09:00→21:27)
[2021-05-16] MEDS: PHENOBARBITAL 97.2 MG TABLET GT SCH ×2 (09:00→21:27)
[2021-05-16] MEDS: HYDROGEN PEROXIDE 3% 118 ML BOTTLE TP SCH ×2 (09:41→21:45)
[2021-05-16] MEDS: MINERAL OIL/PETROLAT OPHT OINT 3.5 GM TUBE EACHEYE SCH (21:26)
[2021-05-16] MEDS: hydrALAZINE HCL 25 MG TABLET GT SCH (21:26)
[2021-05-16] MEDS: ATORVASTATIN 40 MG TABLET GT SCH (21:27)
[2021-05-16] MEDS: THIAMINE HCL 100 MG TABLET GT SCH (21:28)
[2021-05-16] MEDS: ASCORBIC ACID 500 MG TABLET GT SCH (21:28)
[2021-05-17] MEDS: LEVALBUTEROL HCL 1.25 MG/0.5 ML NEB NEB SCH ×4 (00:50→19:18)
[2021-05-17] MEDS: IPRATROPIUM BROMIDE 0.5 MG/2.5 ML NEBU NEB SCH ×4 (00:50→19:18)
[2021-05-17 04:32] VITALS: BP 145/82
[2021-05-17] MEDS: ARGININE/GLUTAMINE/CALCIUM BMB 1 EACH POWD.PACK GT SCH ×2 (05:31→17:32)
[2021-05-17] MEDS: BLOOD SUGAR DIAGNOSTIC 1 EACH STRIP VI SCH ×4 (06:00→23:40)
[2021-05-17] MEDS: INSULIN REGULAR, HUMAN 300 UNIT/3 ML VIAL SQ PRN ×4 (06:05→23:46)
[2021-05-17] MEDS ORDERED: NYSTATIN CREAM 30 GM TUBE TP PRN (07:00)
[2021-05-17] MEDS ORDERED: SODIUM HYPOCHLORITE 0.125% (QUARTER STRENGTH) 473 ML BOTTLE TP PRN (07:00)
[2021-05-17] MEDS ORDERED: TRIAMCINOLONE ACET 0.1% CREAM 15 GM TUBE TP PRN (07:00)
[2021-05-17 07:48] VITALS: BP 153/75
[2021-05-17] MEDS: ACETAMINOPHEN 650 MG/20 ML UDC- SA PATIENTS-PAIN ONLY GT SCH ×2 (08:30→19:57)
[2021-05-17] MEDS: COD LIVER OIL/ZINC OXIDE OINT 113 GM TUBE TOP SCH ×2 (09:00→20:10)
[2021-05-17] MEDS: HEPARIN SODIUM,PORCINE 5,000 UNITS/ML VIAL SQ SCH ×2 (09:00→21:13)
[2021-05-17] MEDS: METOPROLOL TARTRATE 25 MG TABLET GT SCH ×2 (09:00→20:03)
[2021-05-17] MEDS: PHENOBARBITAL 97.2 MG TABLET GT SCH ×2 (09:00→20:03)
[2021-05-17] MEDS: VITAMINS A AND D OINT TP SCH ×2 (09:00→20:11)
[2021-05-17] MEDS: NYSTATIN CREAM 30 GM TUBE TP SCH ×2 (09:00→20:11)
[2021-05-17] MEDS: TERAZOSIN 1 MG CAPSULE GT SCH (09:00)
[2021-05-17] MEDS: FAMOTIDINE 20 MG TABLET GT SCH ×2 (09:00→20:03)
[2021-05-17] MEDS: HYDROGEN PEROXIDE 3% 118 ML BOTTLE TP SCH ×2 (09:00→21:13)
[2021-05-17] MEDS: AMANTADINE HCL 50 MG/5 ML GT SCH ×2 (09:00→20:03)
[2021-05-17] MEDS: TRIAMCINOLONE ACET 0.1% CREAM 15 GM TUBE TP SCH ×2 (09:00→20:11)
[2021-05-17] MEDS: SODIUM HYPOCHLORITE 0.125% (QUARTER STRENGTH) 473 ML BOTTLE TP SCH ×2 (09:00→20:11)
[2021-05-17] MEDS: BACLOFEN 10 MG TABLET GT SCH ×2 (09:00→20:03)
[2021-05-17] MEDS: levETIRAcetam 500 MG/5 ML LIQUID UDC GT SCH ×2 (09:00→20:03)
[2021-05-17 12:00] VITALS: BP 155/85
[2021-05-17] MEDS: HYDROCODONE/APAP 5-325MG TABLET GT PRN (17:31)
[2021-05-17 18:00] VITALS: BP 157/77
[2021-05-17] MEDS: MINERAL OIL/PETROLAT OPHT OINT 3.5 GM TUBE EACHEYE SCH (20:02)
[2021-05-17] MEDS: THIAMINE HCL 100 MG TABLET GT SCH (20:03)
[2021-05-17] MEDS: ASCORBIC ACID 500 MG TABLET GT SCH (20:03)
[2021-05-17] MEDS: hydrALAZINE HCL 25 MG TABLET GT SCH (20:03)
[2021-05-17] MEDS: ATORVASTATIN 40 MG TABLET GT SCH (20:03)
[2021-05-17 20:14] VITALS: BP 143/77
[2021-05-17] MEDS: GLUCERNA 1.2 1000ML LIQUID GT PRN (22:35)
[2021-05-18 00:34] VITALS: BP 151/82
[2021-05-18] MEDS: IPRATROPIUM BROMIDE 0.5 MG/2.5 ML NEBU NEB SCH ×4 (01:20→18:56)
[2021-05-18] MEDS: LEVALBUTEROL HCL 1.25 MG/0.5 ML NEB NEB SCH ×4 (01:20→18:56)
[2021-05-18] MEDS: LORAZEPAM 1 MG TABLET GT PRN (04:27)
[2021-05-18] MEDS: ARGININE/GLUTAMINE/CALCIUM BMB 1 EACH POWD.PACK GT SCH ×2 (05:07→18:23)
[2021-05-18] MEDS: BLOOD SUGAR DIAGNOSTIC 1 EACH STRIP VI SCH ×3 (05:07→18:28)
[2021-05-18 06:11] VITALS: BP 122/69
[2021-05-18] MEDS: INSULIN REGULAR, HUMAN 300 UNIT/3 ML VIAL SQ PRN ×3 (06:13→18:30)
[2021-05-18] MEDS: HYDROGEN PEROXIDE 3% 118 ML BOTTLE TP SCH ×2 (07:45→20:48)
[2021-05-18] MEDS: ACETAMINOPHEN 650 MG/20 ML UDC- SA PATIENTS-PAIN ONLY GT SCH ×2 (08:26→20:36)
[2021-05-18] MEDS: TERAZOSIN 1 MG CAPSULE GT SCH (08:26)
[2021-05-18] MEDS: BACLOFEN 10 MG TABLET GT SCH ×2 (08:26→20:48)
[2021-05-18] MEDS: levETIRAcetam 500 MG/5 ML LIQUID UDC GT SCH ×2 (08:26→20:48)
[2021-05-18] MEDS: PHENOBARBITAL 97.2 MG TABLET GT SCH ×2 (08:27→20:49)
[2021-05-18] MEDS: METOPROLOL TARTRATE 25 MG TABLET GT SCH ×2 (08:27→20:49)
[2021-05-18] MEDS: AMANTADINE HCL 50 MG/5 ML GT SCH ×2 (08:27→20:49)
[2021-05-18] MEDS: FAMOTIDINE 20 MG TABLET GT SCH ×2 (08:27→20:49)
[2021-05-18] MEDS: HEPARIN SODIUM,PORCINE 5,000 UNITS/ML VIAL SQ SCH ×2 (08:28→20:52)
[2021-05-18] MEDS: COD LIVER OIL/ZINC OXIDE OINT 113 GM TUBE TOP SCH ×2 (08:29→20:51)
[2021-05-18] MEDS: SODIUM HYPOCHLORITE 0.125% (QUARTER STRENGTH) 473 ML BOTTLE TP SCH ×2 (08:30→20:51)
[2021-05-18] MEDS: VITAMINS A AND D OINT TP SCH ×2 (08:31→20:51)
[2021-05-18] MEDS: TRIAMCINOLONE ACET 0.1% CREAM 15 GM TUBE TP SCH ×2 (08:31→20:51)
[2021-05-18] MEDS: NYSTATIN CREAM 30 GM TUBE TP SCH ×2 (08:31→20:51)
[2021-05-18 14:45] VITALS: BP 133/76
[2021-05-18] MEDS: GLUCERNA 1.2 1000ML LIQUID GT PRN (18:23)
[2021-05-18 20:19] VITALS: BP 145/76
[2021-05-18] MEDS: MINERAL OIL/PETROLAT OPHT OINT 3.5 GM TUBE EACHEYE SCH (20:47)
[2021-05-18] MEDS: hydrALAZINE HCL 25 MG TABLET GT SCH (20:47)
[2021-05-18] MEDS: ATORVASTATIN 40 MG TABLET GT SCH (20:48)
[2021-05-18] MEDS: ASCORBIC ACID 500 MG TABLET GT SCH (20:50)
[2021-05-18] MEDS: THIAMINE HCL 100 MG TABLET GT SCH (20:50)
[2021-05-19] MEDS: BLOOD SUGAR DIAGNOSTIC 1 EACH STRIP VI SCH ×5 (00:48→23:08)
[2021-05-19] MEDS: INSULIN REGULAR, HUMAN 300 UNIT/3 ML VIAL SQ PRN ×5 (00:49→23:09)
[2021-05-19] MEDS: LEVALBUTEROL HCL 1.25 MG/0.5 ML NEB NEB SCH ×4 (01:30→19:16)
[2021-05-19] MEDS: IPRATROPIUM BROMIDE 0.5 MG/2.5 ML NEBU NEB SCH ×4 (01:30→19:16)
[2021-05-19] MEDS: ARGININE/GLUTAMINE/CALCIUM BMB 1 EACH POWD.PACK GT SCH ×2 (06:28→17:11)
[2021-05-19 07:48] VITALS: BP 150/90
[2021-05-19] MEDS: METOPROLOL TARTRATE 25 MG TABLET GT SCH ×2 (09:08→21:00)
[2021-05-19] MEDS: BACLOFEN 10 MG TABLET GT SCH ×2 (09:08→21:00)
[2021-05-19] MEDS: ACETAMINOPHEN 650 MG/20 ML UDC- SA PATIENTS-PAIN ONLY GT SCH ×2 (09:08→20:52)
[2021-05-19] MEDS: AMANTADINE HCL 50 MG/5 ML GT SCH ×2 (09:08→21:02)
[2021-05-19] MEDS: levETIRAcetam 500 MG/5 ML LIQUID UDC GT SCH ×2 (09:08→20:59)
[2021-05-19] MEDS: COD LIVER OIL/ZINC OXIDE OINT 113 GM TUBE TOP SCH ×2 (09:08→21:03)
[2021-05-19] MEDS: HEPARIN SODIUM,PORCINE 5,000 UNITS/ML VIAL SQ SCH ×2 (09:08→21:04)
[2021-05-19] MEDS: FAMOTIDINE 20 MG TABLET GT SCH ×2 (09:08→21:00)
[2021-05-19] MEDS: PHENOBARBITAL 97.2 MG TABLET GT SCH ×2 (09:08→21:00)
[2021-05-19] MEDS: TERAZOSIN 1 MG CAPSULE GT SCH (09:08)
[2021-05-19] MEDS: NYSTATIN CREAM 30 GM TUBE TP SCH ×2 (09:09→21:04)
[2021-05-19] MEDS: SODIUM HYPOCHLORITE 0.125% (QUARTER STRENGTH) 473 ML BOTTLE TP SCH ×2 (09:09→21:03)
[2021-05-19] MEDS: VITAMINS A AND D OINT TP SCH ×2 (09:09→21:04)
[2021-05-19] MEDS: TRIAMCINOLONE ACET 0.1% CREAM 15 GM TUBE TP SCH ×2 (09:09→21:04)
[2021-05-19] MEDS: HYDROGEN PEROXIDE 3% 118 ML BOTTLE TP SCH ×2 (09:40→21:53)
[2021-05-19 20:09] VITALS: BP 134/81
[2021-05-19] MEDS: MINERAL OIL/PETROLAT OPHT OINT 3.5 GM TUBE EACHEYE SCH (20:52)
[2021-05-19] MEDS: hydrALAZINE HCL 25 MG TABLET GT SCH (20:54)
[2021-05-19] MEDS: ATORVASTATIN 40 MG TABLET GT SCH (21:00)
[2021-05-19] MEDS: ASCORBIC ACID 500 MG TABLET GT SCH (21:02)
[2021-05-19] MEDS: THIAMINE HCL 100 MG TABLET GT SCH (21:02)
[2021-05-20] MEDS: LEVALBUTEROL HCL 1.25 MG/0.5 ML NEB NEB SCH ×4 (00:41→19:29)
[2021-05-20] MEDS: IPRATROPIUM BROMIDE 0.5 MG/2.5 ML NEBU NEB SCH ×4 (00:41→19:29)
[2021-05-20] MEDS: HYDROCODONE/APAP 5-325MG TABLET GT PRN (04:15)
[2021-05-20] MEDS: ARGININE/GLUTAMINE/CALCIUM BMB 1 EACH POWD.PACK GT SCH ×2 (05:59→17:10)
[2021-05-20] MEDS: BLOOD SUGAR DIAGNOSTIC 1 EACH STRIP VI SCH ×3 (05:59→17:10)
[2021-05-20] MEDS: INSULIN REGULAR, HUMAN 300 UNIT/3 ML VIAL SQ PRN ×3 (06:00→17:11)
[2021-05-20 07:40] VITALS: BP 157/84
[2021-05-20] MEDS: TERAZOSIN 1 MG CAPSULE GT SCH (08:56)
[2021-05-20] MEDS: levETIRAcetam 500 MG/5 ML LIQUID UDC GT SCH ×2 (08:56→21:26)
[2021-05-20] MEDS: BACLOFEN 10 MG TABLET GT SCH ×2 (08:56→21:26)
[2021-05-20] MEDS: ACETAMINOPHEN 650 MG/20 ML UDC- SA PATIENTS-PAIN ONLY GT SCH ×2 (08:56→21:25)
[2021-05-20] MEDS: METOPROLOL TARTRATE 25 MG TABLET GT SCH ×2 (08:57→21:27)
[2021-05-20] MEDS: PHENOBARBITAL 97.2 MG TABLET GT SCH ×2 (08:57→21:27)
[2021-05-20] MEDS: FAMOTIDINE 20 MG TABLET GT SCH ×2 (08:57→21:27)
[2021-05-20] MEDS: AMANTADINE HCL 50 MG/5 ML GT SCH ×2 (08:57→21:27)
[2021-05-20] MEDS: NYSTATIN CREAM 30 GM TUBE TP SCH ×2 (09:00→21:33)
[2021-05-20] MEDS: TRIAMCINOLONE ACET 0.1% CREAM 15 GM TUBE TP SCH ×2 (09:00→21:33)
[2021-05-20] MEDS: COD LIVER OIL/ZINC OXIDE OINT 113 GM TUBE TOP SCH ×2 (09:00→21:27)
[2021-05-20] MEDS: SODIUM HYPOCHLORITE 0.125% (QUARTER STRENGTH) 473 ML BOTTLE TP SCH ×2 (09:00→21:00)
[2021-05-20] MEDS: HEPARIN SODIUM,PORCINE 5,000 UNITS/ML VIAL SQ SCH ×2 (09:00→21:00)
[2021-05-20] MEDS: VITAMINS A AND D OINT TP SCH ×2 (09:00→21:33)
[2021-05-20] MEDS: HYDROGEN PEROXIDE 3% 118 ML BOTTLE TP SCH ×2 (09:43→19:11)
[2021-05-20] MEDS: GLUCERNA 1.2 1000ML LIQUID GT PRN ×2 (09:43→23:00)
[2021-05-20 12:00] VITALS: BP 151/82
[2021-05-20 18:00] VITALS: BP 154/81
[2021-05-20 20:19] VITALS: BP 144/73
--- NOTE | 2021-05-20 21:00 | NUR ---
PER TAR CHASER REPORTED FOUND PT HAS BLISTER ON (L)UPPER ARM NO S/S OF PAIN KEEP CLEAN AND DRY CONTINUE MONITOR FOR CLOSE BLISTER.
[2021-05-20] MEDS: MINERAL OIL/PETROLAT OPHT OINT 3.5 GM TUBE EACHEYE SCH (21:25)
[2021-05-20] MEDS: hydrALAZINE HCL 25 MG TABLET GT SCH (21:26)
[2021-05-20] MEDS: ATORVASTATIN 40 MG TABLET GT SCH (21:26)
[2021-05-20] MEDS: THIAMINE HCL 100 MG TABLET GT SCH (21:27)
[2021-05-20] MEDS: ASCORBIC ACID 500 MG TABLET GT SCH (21:27)
[2021-05-21] MEDS: BLOOD SUGAR DIAGNOSTIC 1 EACH STRIP VI SCH ×5 (00:46→23:41)
[2021-05-21] MEDS: INSULIN REGULAR, HUMAN 300 UNIT/3 ML VIAL SQ PRN ×3 (01:02→23:44)
[2021-05-21] MEDS: LEVALBUTEROL HCL 1.25 MG/0.5 ML NEB NEB SCH ×4 (01:27→19:19)
[2021-05-21] MEDS: IPRATROPIUM BROMIDE 0.5 MG/2.5 ML NEBU NEB SCH ×4 (01:27→19:19)
[2021-05-21] MEDS: HYDROCODONE/APAP 5-325MG TABLET GT PRN ×2 (05:02→13:00)
[2021-05-21] MEDS: ARGININE/GLUTAMINE/CALCIUM BMB 1 EACH POWD.PACK GT SCH ×2 (05:04→18:27)
[2021-05-21 08:07] VITALS: BP 154/95
[2021-05-21] MEDS: FAMOTIDINE 20 MG TABLET GT SCH ×2 (09:02→20:58)
[2021-05-21] MEDS: METOPROLOL TARTRATE 25 MG TABLET GT SCH ×2 (09:02→20:58)
[2021-05-21] MEDS: levETIRAcetam 500 MG/5 ML LIQUID UDC GT SCH ×2 (09:02→20:58)
[2021-05-21] MEDS: AMANTADINE HCL 50 MG/5 ML GT SCH ×2 (09:02→20:59)
[2021-05-21] MEDS: BACLOFEN 10 MG TABLET GT SCH ×2 (09:02→20:58)
[2021-05-21] MEDS: PHENOBARBITAL 97.2 MG TABLET GT SCH ×2 (09:02→20:59)
[2021-05-21] MEDS: ACETAMINOPHEN 650 MG/20 ML UDC- SA PATIENTS-PAIN ONLY GT SCH ×2 (09:02→20:57)
[2021-05-21] MEDS: TERAZOSIN 1 MG CAPSULE GT SCH (09:02)
[2021-05-21] MEDS: SODIUM HYPOCHLORITE 0.125% (QUARTER STRENGTH) 473 ML BOTTLE TP SCH ×2 (09:03→21:01)
[2021-05-21] MEDS: NYSTATIN CREAM 30 GM TUBE TP SCH ×2 (09:03→21:02)
[2021-05-21] MEDS: COD LIVER OIL/ZINC OXIDE OINT 113 GM TUBE TOP SCH ×2 (09:03→21:01)
[2021-05-21] MEDS: HEPARIN SODIUM,PORCINE 5,000 UNITS/ML VIAL SQ SCH ×2 (09:03→21:03)
[2021-05-21] MEDS: TRIAMCINOLONE ACET 0.1% CREAM 15 GM TUBE TP SCH ×2 (09:03→21:01)
[2021-05-21] MEDS: VITAMINS A AND D OINT TP SCH ×2 (09:03→21:02)
[2021-05-21] MEDS: HYDROGEN PEROXIDE 3% 118 ML BOTTLE TP SCH ×2 (09:28→21:38)
[2021-05-21 13:00] VITALS: BP 139/98
[2021-05-21 18:32] VITALS: BP 155/95
[2021-05-21 20:08] VITALS: BP 131/79
[2021-05-21] MEDS: MINERAL OIL/PETROLAT OPHT OINT 3.5 GM TUBE EACHEYE SCH (20:57)
[2021-05-21] MEDS: hydrALAZINE HCL 25 MG TABLET GT SCH (20:58)
[2021-05-21] MEDS: ATORVASTATIN 40 MG TABLET GT SCH (20:58)
[2021-05-21] MEDS: ASCORBIC ACID 500 MG TABLET GT SCH (20:59)
[2021-05-21] MEDS: THIAMINE HCL 100 MG TABLET GT SCH (20:59)
[2021-05-22] MEDS: IPRATROPIUM BROMIDE 0.5 MG/2.5 ML NEBU NEB SCH ×4 (01:41→19:24)
[2021-05-22] MEDS: LEVALBUTEROL HCL 1.25 MG/0.5 ML NEB NEB SCH ×4 (01:41→19:24)
[2021-05-22] MEDS: ARGININE/GLUTAMINE/CALCIUM BMB 1 EACH POWD.PACK GT SCH ×2 (05:18→17:43)
[2021-05-22] MEDS: BLOOD SUGAR DIAGNOSTIC 1 EACH STRIP VI SCH ×3 (05:19→17:43)
[2021-05-22 07:48] VITALS: BP 143/76
[2021-05-22] MEDS: ACETAMINOPHEN 650 MG/20 ML UDC- SA PATIENTS-PAIN ONLY GT SCH ×2 (08:30→20:41)
[2021-05-22] MEDS: HYDROGEN PEROXIDE 3% 118 ML BOTTLE TP SCH ×2 (09:31→21:00)
[2021-05-22] MEDS: TERAZOSIN 1 MG CAPSULE GT SCH (09:55)
[2021-05-22] MEDS: levETIRAcetam 500 MG/5 ML LIQUID UDC GT SCH ×2 (09:56→20:42)
[2021-05-22] MEDS: TRIAMCINOLONE ACET 0.1% CREAM 15 GM TUBE TP SCH ×2 (09:56→20:46)
[2021-05-22] MEDS: NYSTATIN CREAM 30 GM TUBE TP SCH ×2 (09:56→20:46)
[2021-05-22] MEDS: COD LIVER OIL/ZINC OXIDE OINT 113 GM TUBE TOP SCH ×2 (09:56→20:45)
[2021-05-22] MEDS: SODIUM HYPOCHLORITE 0.125% (QUARTER STRENGTH) 473 ML BOTTLE TP SCH ×2 (09:56→20:45)
[2021-05-22] MEDS: PHENOBARBITAL 97.2 MG TABLET GT SCH ×2 (09:56→20:43)
[2021-05-22] MEDS: BACLOFEN 10 MG TABLET GT SCH ×2 (09:56→20:43)
[2021-05-22] MEDS: AMANTADINE HCL 50 MG/5 ML GT SCH ×2 (09:56→20:45)
[2021-05-22] MEDS: VITAMINS A AND D OINT TP SCH ×2 (09:56→20:46)
[2021-05-22] MEDS: FAMOTIDINE 20 MG TABLET GT SCH ×2 (09:56→20:43)
[2021-05-22] MEDS: HEPARIN SODIUM,PORCINE 5,000 UNITS/ML VIAL SQ SCH ×2 (09:57→21:30)
[2021-05-22] MEDS: METOPROLOL TARTRATE 25 MG TABLET GT SCH ×2 (09:58→20:44)
[2021-05-22] MEDS: INSULIN REGULAR, HUMAN 300 UNIT/3 ML VIAL SQ PRN ×2 (12:54→17:44)
[2021-05-22 15:14] VITALS: BP 145/75
[2021-05-22 18:15] VITALS: BP 149/79
[2021-05-22] MEDS: MINERAL OIL/PETROLAT OPHT OINT 3.5 GM TUBE EACHEYE SCH (20:41)
[2021-05-22] MEDS: hydrALAZINE HCL 25 MG TABLET GT SCH (20:42)
[2021-05-22] MEDS: ATORVASTATIN 40 MG TABLET GT SCH (20:43)
[2021-05-22] MEDS: THIAMINE HCL 100 MG TABLET GT SCH (20:45)
[2021-05-22] MEDS: ASCORBIC ACID 500 MG TABLET GT SCH (20:45)
--- NOTE | 2021-05-22 21:18 | NUR ---
For Covid 19 test today per [facility] requirement.Pt's daughter Kylie notified.
[2021-05-22 23:14] VITALS: BP 136/76
[2021-05-23] MEDS: INSULIN REGULAR, HUMAN 300 UNIT/3 ML VIAL SQ PRN ×5 (00:50→23:58)
[2021-05-23] MEDS: LEVALBUTEROL HCL 1.25 MG/0.5 ML NEB NEB SCH ×4 (01:31→18:58)
[2021-05-23] MEDS: IPRATROPIUM BROMIDE 0.5 MG/2.5 ML NEBU NEB SCH ×4 (01:31→18:58)
[2021-05-23] MEDS: ARGININE/GLUTAMINE/CALCIUM BMB 1 EACH POWD.PACK GT SCH ×2 (05:13→17:37)
[2021-05-23] MEDS: BLOOD SUGAR DIAGNOSTIC 1 EACH STRIP VI SCH ×5 (05:13→23:57)
[2021-05-23 07:25] VITALS: BP 142/85
[2021-05-23] MEDS: HYDROGEN PEROXIDE 3% 118 ML BOTTLE TP SCH ×2 (08:04→21:15)
[2021-05-23] MEDS: BACLOFEN 10 MG TABLET GT SCH ×2 (08:31→21:09)
[2021-05-23] MEDS: levETIRAcetam 500 MG/5 ML LIQUID UDC GT SCH ×2 (08:31→21:09)
[2021-05-23] MEDS: TERAZOSIN 1 MG CAPSULE GT SCH (08:31)
[2021-05-23] MEDS: ACETAMINOPHEN 650 MG/20 ML UDC- SA PATIENTS-PAIN ONLY GT SCH ×2 (08:31→21:07)
[2021-05-23] MEDS: AMANTADINE HCL 50 MG/5 ML GT SCH ×2 (08:32→21:10)
[2021-05-23] MEDS: SODIUM HYPOCHLORITE 0.125% (QUARTER STRENGTH) 473 ML BOTTLE TP SCH ×2 (08:32→21:13)
[2021-05-23] MEDS: METOPROLOL TARTRATE 25 MG TABLET GT SCH ×2 (08:32→21:10)
[2021-05-23] MEDS: PHENOBARBITAL 97.2 MG TABLET GT SCH ×2 (08:32→21:10)
[2021-05-23] MEDS: COD LIVER OIL/ZINC OXIDE OINT 113 GM TUBE TOP SCH ×2 (08:32→21:13)
[2021-05-23] MEDS: HEPARIN SODIUM,PORCINE 5,000 UNITS/ML VIAL SQ SCH ×2 (08:32→21:12)
[2021-05-23] MEDS: FAMOTIDINE 20 MG TABLET GT SCH ×2 (08:32→21:10)
[2021-05-23] MEDS: VITAMINS A AND D OINT TP SCH ×2 (08:33→21:14)
[2021-05-23] MEDS: TRIAMCINOLONE ACET 0.1% CREAM 15 GM TUBE TP SCH ×2 (08:33→21:13)
[2021-05-23] MEDS: HYDROCODONE/APAP 5-325MG TABLET GT PRN (08:33)
[2021-05-23] MEDS: NYSTATIN CREAM 30 GM TUBE TP SCH ×2 (08:33→21:14)
[2021-05-23] MEDS: LORAZEPAM 1 MG TABLET GT PRN (09:57)
[2021-05-23 12:00] VITALS: BP 145/75
[2021-05-23] MEDS: GLUCERNA 1.2 1000ML LIQUID GT PRN (14:23)
[2021-05-23 18:16] VITALS: BP 146/76
[2021-05-23 20:12] VITALS: BP 128/85
[2021-05-23] MEDS: hydrALAZINE HCL 25 MG TABLET GT SCH (21:08)
[2021-05-23] MEDS: MINERAL OIL/PETROLAT OPHT OINT 3.5 GM TUBE EACHEYE SCH (21:08)
[2021-05-23] MEDS: ATORVASTATIN 40 MG TABLET GT SCH (21:09)
[2021-05-23] MEDS: ASCORBIC ACID 500 MG TABLET GT SCH (21:11)
[2021-05-23] MEDS: THIAMINE HCL 100 MG TABLET GT SCH (21:11)
[2021-05-24] VITALS: BP 135/78
[2021-05-24] MEDS: LEVALBUTEROL HCL 1.25 MG/0.5 ML NEB NEB SCH ×4 (00:42→19:03)
[2021-05-24] MEDS: IPRATROPIUM BROMIDE 0.5 MG/2.5 ML NEBU NEB SCH ×4 (00:42→19:03)
[2021-05-24] MEDS: HYDROCODONE/APAP 5-325MG TABLET GT PRN (05:00)
[2021-05-24] MEDS: ARGININE/GLUTAMINE/CALCIUM BMB 1 EACH POWD.PACK GT SCH ×2 (05:38→17:22)
[2021-05-24] MEDS: BLOOD SUGAR DIAGNOSTIC 1 EACH STRIP VI SCH ×3 (05:38→17:22)
[2021-05-24 06:26] VITALS: BP 142/62
[2021-05-24] MEDS: GLUCERNA 1.2 1000ML LIQUID GT PRN (06:30)
[2021-05-24 07:56] LABS: ALANINE AMINOTRANSFERASE 28 U/L (16-63); ALKALINE PHOSPHATASE 180 U/L (50-136); ASPARTATE AMINOTRANSFERASE 28 U/L (15-37); BILIRUBIN,TOTAL 0.2 mg/dL (0.2-1.0); CARBON DIOXIDE 27 mmol/L (21-32); CHLORIDE 98 mmol/L (98-107); CREATININE 0.3 mg/dL (0.6-1.3); GLUCOSE 122 mg/dL (74-106); POTASSIUM 4.8 mmol/L (3.5-5.1); TOTAL PROTEIN, SERUM 7.6 g/dL (6.4-8.2); UREA NITROGEN, BLOOD 19 mg/dL (7-18)
[2021-05-24] MEDS: TERAZOSIN 1 MG CAPSULE GT SCH (08:16)
[2021-05-24] MEDS: ACETAMINOPHEN 650 MG/20 ML UDC- SA PATIENTS-PAIN ONLY GT SCH ×2 (08:16→20:00)
[2021-05-24] MEDS: levETIRAcetam 500 MG/5 ML LIQUID UDC GT SCH ×2 (08:16→20:02)
[2021-05-24] MEDS: BACLOFEN 10 MG TABLET GT SCH ×2 (08:16→20:04)
[2021-05-24] MEDS: COD LIVER OIL/ZINC OXIDE OINT 113 GM TUBE TOP SCH ×2 (08:17→20:14)
[2021-05-24] MEDS: PHENOBARBITAL 97.2 MG TABLET GT SCH ×2 (08:17→20:05)
[2021-05-24] MEDS: SODIUM HYPOCHLORITE 0.125% (QUARTER STRENGTH) 473 ML BOTTLE TP SCH ×2 (08:17→20:14)
[2021-05-24] MEDS: METOPROLOL TARTRATE 25 MG TABLET GT SCH ×2 (08:17→20:05)
[2021-05-24] MEDS: AMANTADINE HCL 50 MG/5 ML GT SCH ×2 (08:17→20:05)
[2021-05-24] MEDS: HEPARIN SODIUM,PORCINE 5,000 UNITS/ML VIAL SQ SCH ×2 (08:17→21:58)
[2021-05-24] MEDS: FAMOTIDINE 20 MG TABLET GT SCH ×2 (08:17→20:05)
[2021-05-24] MEDS: TRIAMCINOLONE ACET 0.1% CREAM 15 GM TUBE TP SCH ×2 (08:18→20:14)
[2021-05-24] MEDS: VITAMINS A AND D OINT TP SCH ×2 (08:18→20:14)
[2021-05-24] MEDS: NYSTATIN CREAM 30 GM TUBE TP SCH ×2 (08:18→20:14)
[2021-05-24] MEDS: HYDROGEN PEROXIDE 3% 118 ML BOTTLE TP SCH ×2 (09:00→21:29)
[2021-05-24 10:08] LABS: HEMATOCRIT 32.9 % (36.7-47.1); MEAN CORPUSCULAR HEMOGLOBIN 28.2 uug (23.8-33.4); MEAN CORPUSCULAR VOLUME 86.2 fL (73.0-96.2); PLATELET COUNT (AUTO) 232 K/uL (152-348)
[2021-05-24] MEDS: INSULIN REGULAR, HUMAN 300 UNIT/3 ML VIAL SQ PRN ×2 (12:24→17:23)
[2021-05-24] MEDS: hydrALAZINE HCL 25 MG TABLET GT SCH (20:02)
[2021-05-24] MEDS: MINERAL OIL/PETROLAT OPHT OINT 3.5 GM TUBE EACHEYE SCH (20:02)
[2021-05-24] MEDS: ATORVASTATIN 40 MG TABLET GT SCH (20:04)
[2021-05-24] MEDS: THIAMINE HCL 100 MG TABLET GT SCH (20:06)
[2021-05-24] MEDS: ASCORBIC ACID 500 MG TABLET GT SCH (20:12)
[2021-05-24 20:19] VITALS: BP 140/85
[2021-05-25] VITALS: BP 139/65
[2021-05-25] MEDS: GLUCERNA 1.2 1000ML LIQUID GT PRN ×2 (00:02→21:45)
[2021-05-25] MEDS: BLOOD SUGAR DIAGNOSTIC 1 EACH STRIP VI SCH ×5 (00:08→23:03)
[2021-05-25] MEDS: INSULIN REGULAR, HUMAN 300 UNIT/3 ML VIAL SQ PRN ×5 (00:15→23:04)
[2021-05-25] MEDS: IPRATROPIUM BROMIDE 0.5 MG/2.5 ML NEBU NEB SCH ×4 (01:00→19:00)
[2021-05-25] MEDS: LEVALBUTEROL HCL 1.25 MG/0.5 ML NEB NEB SCH ×4 (01:00→19:00)
[2021-05-25] MEDS: ARGININE/GLUTAMINE/CALCIUM BMB 1 EACH POWD.PACK GT SCH ×2 (05:42→17:40)
[2021-05-25 05:57] VITALS: BP 121/79
[2021-05-25 07:39] VITALS: BP 150/83
[2021-05-25] MEDS: ACETAMINOPHEN 650 MG/20 ML UDC- SA PATIENTS-PAIN ONLY GT SCH ×2 (09:15→20:30)
[2021-05-25] MEDS: levETIRAcetam 500 MG/5 ML LIQUID UDC GT SCH ×2 (09:15→21:35)
[2021-05-25] MEDS: TERAZOSIN 1 MG CAPSULE GT SCH (09:16)
[2021-05-25] MEDS: BACLOFEN 10 MG TABLET GT SCH ×2 (09:16→21:36)
[2021-05-25] MEDS: PHENOBARBITAL 97.2 MG TABLET GT SCH ×2 (09:17→21:38)
[2021-05-25] MEDS: FAMOTIDINE 20 MG TABLET GT SCH ×2 (09:17→21:38)
[2021-05-25] MEDS: AMANTADINE HCL 50 MG/5 ML GT SCH ×2 (09:17→21:38)
[2021-05-25] MEDS: SODIUM HYPOCHLORITE 0.125% (QUARTER STRENGTH) 473 ML BOTTLE TP SCH ×2 (09:18→21:42)
[2021-05-25] MEDS: COD LIVER OIL/ZINC OXIDE OINT 113 GM TUBE TOP SCH ×2 (09:18→21:42)
[2021-05-25] MEDS: TRIAMCINOLONE ACET 0.1% CREAM 15 GM TUBE TP SCH ×2 (09:18→21:42)
[2021-05-25] MEDS: VITAMINS A AND D OINT TP SCH ×2 (09:19→21:42)
[2021-05-25] MEDS: NYSTATIN CREAM 30 GM TUBE TP SCH ×2 (09:19→21:42)
[2021-05-25] MEDS: METOPROLOL TARTRATE 25 MG TABLET GT SCH ×2 (09:22→21:38)
[2021-05-25] MEDS: HEPARIN SODIUM,PORCINE 5,000 UNITS/ML VIAL SQ SCH ×2 (09:22→21:42)
[2021-05-25] MEDS: HYDROGEN PEROXIDE 3% 118 ML BOTTLE TP SCH ×2 (09:32→21:11)
--- NOTE | 2021-05-25 18:00 | NUR ---
Seen and examined By Dr Peralta,no new orders noted.Visited by Pt's father Clarence.
[2021-05-25 20:00] VITALS: BP 135/80
[2021-05-25] MEDS: MINERAL OIL/PETROLAT OPHT OINT 3.5 GM TUBE EACHEYE SCH (21:35)
[2021-05-25] MEDS: hydrALAZINE HCL 25 MG TABLET GT SCH (21:35)
[2021-05-25] MEDS: ATORVASTATIN 40 MG TABLET GT SCH (21:38)
[2021-05-25] MEDS: THIAMINE HCL 100 MG TABLET GT SCH (21:39)
[2021-05-25] MEDS: ASCORBIC ACID 500 MG TABLET GT SCH (21:39)
[2021-05-26] VITALS: BP 128/76
[2021-05-26] MEDS: LEVALBUTEROL HCL 1.25 MG/0.5 ML NEB NEB SCH ×4 (01:00→19:10)
[2021-05-26] MEDS: IPRATROPIUM BROMIDE 0.5 MG/2.5 ML NEBU NEB SCH ×4 (01:00→19:10)
[2021-05-26] MEDS: ARGININE/GLUTAMINE/CALCIUM BMB 1 EACH POWD.PACK GT SCH ×2 (05:43→18:10)
[2021-05-26] MEDS: BLOOD SUGAR DIAGNOSTIC 1 EACH STRIP VI SCH ×3 (05:44→18:10)
[2021-05-26] MEDS: INSULIN REGULAR, HUMAN 300 UNIT/3 ML VIAL SQ PRN ×3 (05:45→18:13)
[2021-05-26 06:23] VITALS: BP 132/82
[2021-05-26 07:44] VITALS: BP 139/77
[2021-05-26] MEDS: HYDROGEN PEROXIDE 3% 118 ML BOTTLE TP SCH ×2 (08:38→21:29)
[2021-05-26] MEDS: ACETAMINOPHEN 650 MG/20 ML UDC- SA PATIENTS-PAIN ONLY GT SCH ×2 (09:02→21:00)
[2021-05-26] MEDS: BACLOFEN 10 MG TABLET GT SCH ×2 (09:02→21:02)
[2021-05-26] MEDS: TERAZOSIN 1 MG CAPSULE GT SCH (09:02)
[2021-05-26] MEDS: levETIRAcetam 500 MG/5 ML LIQUID UDC GT SCH ×2 (09:02→21:01)
[2021-05-26] MEDS: METOPROLOL TARTRATE 25 MG TABLET GT SCH ×2 (09:03→21:03)
[2021-05-26] MEDS: AMANTADINE HCL 50 MG/5 ML GT SCH ×2 (09:03→21:04)
[2021-05-26] MEDS: PHENOBARBITAL 97.2 MG TABLET GT SCH ×2 (09:03→21:04)
[2021-05-26] MEDS: FAMOTIDINE 20 MG TABLET GT SCH ×2 (09:03→21:04)
[2021-05-26] MEDS: HEPARIN SODIUM,PORCINE 5,000 UNITS/ML VIAL SQ SCH ×2 (09:04→21:06)
[2021-05-26] MEDS: SODIUM HYPOCHLORITE 0.125% (QUARTER STRENGTH) 473 ML BOTTLE TP SCH ×2 (09:05→21:07)
[2021-05-26] MEDS: VITAMINS A AND D OINT TP SCH ×2 (09:05→21:08)
[2021-05-26] MEDS: TRIAMCINOLONE ACET 0.1% CREAM 15 GM TUBE TP SCH ×2 (09:05→21:08)
[2021-05-26] MEDS: COD LIVER OIL/ZINC OXIDE OINT 113 GM TUBE TOP SCH ×2 (09:05→21:07)
[2021-05-26] MEDS: NYSTATIN CREAM 30 GM TUBE TP SCH ×2 (09:05→21:08)
[2021-05-26 20:12] VITALS: BP 131/73
[2021-05-26] MEDS: MINERAL OIL/PETROLAT OPHT OINT 3.5 GM TUBE EACHEYE SCH (21:01)
[2021-05-26] MEDS: hydrALAZINE HCL 25 MG TABLET GT SCH (21:01)
[2021-05-26] MEDS: ATORVASTATIN 40 MG TABLET GT SCH (21:02)
[2021-05-26] MEDS: THIAMINE HCL 100 MG TABLET GT SCH (21:05)
[2021-05-26] MEDS: ASCORBIC ACID 500 MG TABLET GT SCH (21:06)
[2021-05-27] VITALS: BP 130/75
[2021-05-27] MEDS: BLOOD SUGAR DIAGNOSTIC 1 EACH STRIP VI SCH ×4 (00:26→17:00)
[2021-05-27] MEDS: INSULIN REGULAR, HUMAN 300 UNIT/3 ML VIAL SQ PRN ×4 (00:27→17:01)
[2021-05-27] MEDS: IPRATROPIUM BROMIDE 0.5 MG/2.5 ML NEBU NEB SCH ×4 (01:33→19:56)
[2021-05-27] MEDS: LEVALBUTEROL HCL 1.25 MG/0.5 ML NEB NEB SCH ×4 (01:33→19:56)
[2021-05-27] MEDS: ARGININE/GLUTAMINE/CALCIUM BMB 1 EACH POWD.PACK GT SCH ×2 (05:48→17:00)
[2021-05-27 06:00] VITALS: BP 133/78
[2021-05-27 07:50] VITALS: BP 149/88
[2021-05-27] MEDS: HYDROGEN PEROXIDE 3% 118 ML BOTTLE TP SCH ×2 (08:48→21:50)
[2021-05-27] MEDS: TERAZOSIN 1 MG CAPSULE GT SCH (08:49)
[2021-05-27] MEDS: ACETAMINOPHEN 650 MG/20 ML UDC- SA PATIENTS-PAIN ONLY GT SCH ×2 (08:49→21:03)
[2021-05-27] MEDS: levETIRAcetam 500 MG/5 ML LIQUID UDC GT SCH ×2 (08:49→21:04)
[2021-05-27] MEDS: BACLOFEN 10 MG TABLET GT SCH ×2 (08:50→21:04)
[2021-05-27] MEDS: FAMOTIDINE 20 MG TABLET GT SCH ×2 (08:50→21:05)
[2021-05-27] MEDS: METOPROLOL TARTRATE 25 MG TABLET GT SCH ×2 (08:50→21:05)
[2021-05-27] MEDS: PHENOBARBITAL 97.2 MG TABLET GT SCH ×2 (08:51→21:05)
[2021-05-27] MEDS: AMANTADINE HCL 50 MG/5 ML GT SCH ×2 (08:51→21:05)
[2021-05-27] MEDS: HEPARIN SODIUM,PORCINE 5,000 UNITS/ML VIAL SQ SCH ×2 (08:53→21:00)
[2021-05-27] MEDS: NYSTATIN CREAM 30 GM TUBE TP SCH ×2 (09:02→21:00)
[2021-05-27] MEDS: COD LIVER OIL/ZINC OXIDE OINT 113 GM TUBE TOP SCH ×2 (09:02→21:05)
[2021-05-27] MEDS: SODIUM HYPOCHLORITE 0.125% (QUARTER STRENGTH) 473 ML BOTTLE TP SCH ×2 (09:02→21:00)
[2021-05-27] MEDS: TRIAMCINOLONE ACET 0.1% CREAM 15 GM TUBE TP SCH ×2 (09:02→21:00)
[2021-05-27] MEDS: VITAMINS A AND D OINT TP SCH ×2 (09:02→21:00)
[2021-05-27 12:35] VITALS: BP 136/81
[2021-05-27] MEDS: GLUCERNA 1.2 1000ML LIQUID GT PRN (17:02)
[2021-05-27] MEDS: MINERAL OIL/PETROLAT OPHT OINT 3.5 GM TUBE EACHEYE SCH (21:04)
[2021-05-27] MEDS: hydrALAZINE HCL 25 MG TABLET GT SCH (21:04)
[2021-05-27] MEDS: ATORVASTATIN 40 MG TABLET GT SCH (21:04)
[2021-05-27] MEDS: THIAMINE HCL 100 MG TABLET GT SCH (21:05)
[2021-05-27] MEDS: ASCORBIC ACID 500 MG TABLET GT SCH (21:05)
[2021-05-27 21:42] VITALS: BP 135/74
[2021-05-28] VITALS: BP 140/79
[2021-05-28] MEDS: IPRATROPIUM BROMIDE 0.5 MG/2.5 ML NEBU NEB SCH ×4 (02:12→19:17)
[2021-05-28] MEDS: LEVALBUTEROL HCL 1.25 MG/0.5 ML NEB NEB SCH ×4 (02:12→19:17)
[2021-05-28 06:00] VITALS: BP 132/80
[2021-05-28] MEDS: ARGININE/GLUTAMINE/CALCIUM BMB 1 EACH POWD.PACK GT SCH ×2 (06:23→18:00)
[2021-05-28] MEDS: BLOOD SUGAR DIAGNOSTIC 1 EACH STRIP VI SCH ×4 (06:24→18:00)
[2021-05-28] MEDS: PHENOBARBITAL 97.2 MG TABLET GT SCH ×2 (08:07→21:35)
[2021-05-28] MEDS: TERAZOSIN 1 MG CAPSULE GT SCH (08:07)
[2021-05-28] MEDS: ACETAMINOPHEN 650 MG/20 ML UDC- SA PATIENTS-PAIN ONLY GT SCH ×2 (08:07→20:30)
[2021-05-28] MEDS: SODIUM HYPOCHLORITE 0.125% (QUARTER STRENGTH) 473 ML BOTTLE TP SCH ×2 (08:07→21:36)
[2021-05-28] MEDS: FAMOTIDINE 20 MG TABLET GT SCH ×2 (08:07→21:35)
[2021-05-28] MEDS: BACLOFEN 10 MG TABLET GT SCH ×2 (08:07→21:34)
[2021-05-28] MEDS: COD LIVER OIL/ZINC OXIDE OINT 113 GM TUBE TOP SCH ×2 (08:07→21:35)
[2021-05-28] MEDS: levETIRAcetam 500 MG/5 ML LIQUID UDC GT SCH ×2 (08:07→21:34)
[2021-05-28] MEDS: AMANTADINE HCL 50 MG/5 ML GT SCH ×2 (08:07→21:35)
[2021-05-28] MEDS: METOPROLOL TARTRATE 25 MG TABLET GT SCH ×2 (08:07→21:35)
[2021-05-28] MEDS: TRIAMCINOLONE ACET 0.1% CREAM 15 GM TUBE TP SCH ×2 (08:08→21:36)
[2021-05-28] MEDS: VITAMINS A AND D OINT TP SCH ×2 (08:08→21:37)
[2021-05-28] MEDS: NYSTATIN CREAM 30 GM TUBE TP SCH ×2 (08:08→21:36)
[2021-05-28] MEDS: HEPARIN SODIUM,PORCINE 5,000 UNITS/ML VIAL SQ SCH ×2 (08:11→21:43)
[2021-05-28 08:14] VITALS: BP 145/80
[2021-05-28] MEDS: HYDROGEN PEROXIDE 3% 118 ML BOTTLE TP SCH ×2 (09:05→21:38)
[2021-05-28] MEDS: INSULIN REGULAR, HUMAN 300 UNIT/3 ML VIAL SQ PRN ×3 (12:41→18:01)
[2021-05-28] MEDS: ATORVASTATIN 40 MG TABLET GT SCH (21:34)
[2021-05-28] MEDS: hydrALAZINE HCL 25 MG TABLET GT SCH (21:34)
[2021-05-28] MEDS: MINERAL OIL/PETROLAT OPHT OINT 3.5 GM TUBE EACHEYE SCH (21:34)
[2021-05-28] MEDS: THIAMINE HCL 100 MG TABLET GT SCH (21:35)
[2021-05-28] MEDS: ASCORBIC ACID 500 MG TABLET GT SCH (21:35)
[2021-05-28 22:22] VITALS: BP 143/83
[2021-05-29] MEDS: BLOOD SUGAR DIAGNOSTIC 1 EACH STRIP VI SCH ×4 (00:18→17:08)
[2021-05-29] MEDS: INSULIN REGULAR, HUMAN 300 UNIT/3 ML VIAL SQ PRN ×3 (00:25→11:42)
[2021-05-29] MEDS: IPRATROPIUM BROMIDE 0.5 MG/2.5 ML NEBU NEB SCH ×4 (00:49→18:57)
[2021-05-29] MEDS: LEVALBUTEROL HCL 1.25 MG/0.5 ML NEB NEB SCH ×4 (00:49→18:57)
[2021-05-29] MEDS: ARGININE/GLUTAMINE/CALCIUM BMB 1 EACH POWD.PACK GT SCH ×2 (06:03→17:08)
[2021-05-29] MEDS: HYDROGEN PEROXIDE 3% 118 ML BOTTLE TP SCH ×2 (07:30→21:02)
[2021-05-29 07:40] VITALS: BP 161/96
[2021-05-29] MEDS: ACETAMINOPHEN 650 MG/20 ML UDC- SA PATIENTS-PAIN ONLY GT SCH ×2 (09:20→21:01)
[2021-05-29] MEDS: TERAZOSIN 1 MG CAPSULE GT SCH (09:23)
[2021-05-29] MEDS: levETIRAcetam 500 MG/5 ML LIQUID UDC GT SCH ×2 (09:24→21:01)
[2021-05-29] MEDS: BACLOFEN 10 MG TABLET GT SCH ×2 (09:25→21:02)
[2021-05-29] MEDS: PHENOBARBITAL 97.2 MG TABLET GT SCH ×2 (09:26→21:03)
[2021-05-29] MEDS: FAMOTIDINE 20 MG TABLET GT SCH ×2 (09:26→21:03)
[2021-05-29] MEDS: METOPROLOL TARTRATE 25 MG TABLET GT SCH ×2 (09:26→21:03)
[2021-05-29] MEDS: AMANTADINE HCL 50 MG/5 ML GT SCH ×2 (09:29→21:05)
[2021-05-29] MEDS: COD LIVER OIL/ZINC OXIDE OINT 113 GM TUBE TOP SCH ×2 (09:29→21:06)
[2021-05-29] MEDS: TRIAMCINOLONE ACET 0.1% CREAM 15 GM TUBE TP SCH ×2 (09:30→21:07)
[2021-05-29] MEDS: SODIUM HYPOCHLORITE 0.125% (QUARTER STRENGTH) 473 ML BOTTLE TP SCH ×2 (09:30→21:07)
[2021-05-29] MEDS: NYSTATIN CREAM 30 GM TUBE TP SCH ×2 (09:30→21:07)
[2021-05-29] MEDS: VITAMINS A AND D OINT TP SCH ×2 (09:30→21:07)
[2021-05-29] MEDS: HEPARIN SODIUM,PORCINE 5,000 UNITS/ML VIAL SQ SCH ×2 (09:32→20:50)
[2021-05-29] MEDS: GLUCERNA 1.2 1000ML LIQUID GT PRN (13:47)
[2021-05-29 21:00] VITALS: BP 142/83
[2021-05-29] MEDS: MINERAL OIL/PETROLAT OPHT OINT 3.5 GM TUBE EACHEYE SCH (21:01)
[2021-05-29] MEDS: hydrALAZINE HCL 25 MG TABLET GT SCH (21:01)
[2021-05-29] MEDS: ATORVASTATIN 40 MG TABLET GT SCH (21:02)
[2021-05-29] MEDS: THIAMINE HCL 100 MG TABLET GT SCH (21:05)
[2021-05-29] MEDS: ASCORBIC ACID 500 MG TABLET GT SCH (21:06)
[2021-05-30] MEDS: BLOOD SUGAR DIAGNOSTIC 1 EACH STRIP VI SCH ×4 (00:40→17:30)
[2021-05-30] MEDS: LEVALBUTEROL HCL 1.25 MG/0.5 ML NEB NEB SCH ×4 (01:08→19:20)
[2021-05-30] MEDS: IPRATROPIUM BROMIDE 0.5 MG/2.5 ML NEBU NEB SCH ×4 (01:08→19:20)
[2021-05-30] MEDS: INSULIN REGULAR, HUMAN 300 UNIT/3 ML VIAL SQ PRN ×2 (01:30→12:07)
[2021-05-30] MEDS: ARGININE/GLUTAMINE/CALCIUM BMB 1 EACH POWD.PACK GT SCH ×2 (05:13→17:30)
[2021-05-30 07:29] VITALS: BP 148/88
[2021-05-30] MEDS: ACETAMINOPHEN 650 MG/20 ML UDC- SA PATIENTS-PAIN ONLY GT SCH ×2 (08:57→21:30)
[2021-05-30] MEDS: TERAZOSIN 1 MG CAPSULE GT SCH (08:57)
[2021-05-30] MEDS: METOPROLOL TARTRATE 25 MG TABLET GT SCH ×2 (08:58→20:25)
[2021-05-30] MEDS: BACLOFEN 10 MG TABLET GT SCH ×2 (08:58→20:22)
[2021-05-30] MEDS: FAMOTIDINE 20 MG TABLET GT SCH ×2 (08:58→20:25)
[2021-05-30] MEDS: AMANTADINE HCL 50 MG/5 ML GT SCH ×2 (08:58→20:25)
[2021-05-30] MEDS: PHENOBARBITAL 97.2 MG TABLET GT SCH ×2 (08:58→20:25)
[2021-05-30] MEDS: levETIRAcetam 500 MG/5 ML LIQUID UDC GT SCH ×2 (08:58→20:22)
[2021-05-30] MEDS: HEPARIN SODIUM,PORCINE 5,000 UNITS/ML VIAL SQ SCH ×2 (08:59→20:09)
[2021-05-30] MEDS: COD LIVER OIL/ZINC OXIDE OINT 113 GM TUBE TOP SCH ×2 (08:59→20:25)
[2021-05-30] MEDS: TRIAMCINOLONE ACET 0.1% CREAM 15 GM TUBE TP SCH ×2 (09:00→20:26)
[2021-05-30] MEDS: SODIUM HYPOCHLORITE 0.125% (QUARTER STRENGTH) 473 ML BOTTLE TP SCH ×2 (09:00→20:26)
[2021-05-30] MEDS: NYSTATIN CREAM 30 GM TUBE TP SCH ×2 (09:01→20:26)
[2021-05-30] MEDS: VITAMINS A AND D OINT TP SCH ×2 (09:01→20:26)
[2021-05-30] MEDS: HYDROGEN PEROXIDE 3% 118 ML BOTTLE TP SCH ×2 (09:45→21:55)
[2021-05-30] MEDS: GLUCERNA 1.2 1000ML LIQUID GT PRN (09:59)
[2021-05-30] MEDS: LORAZEPAM 1 MG TABLET GT PRN (12:05)
[2021-05-30] MEDS: HYDROCODONE/APAP 5-325MG TABLET GT PRN (17:31)
[2021-05-30 20:00] VITALS: BP 138/73
[2021-05-30] MEDS: hydrALAZINE HCL 25 MG TABLET GT SCH (20:22)
[2021-05-30] MEDS: ATORVASTATIN 40 MG TABLET GT SCH (20:22)
[2021-05-30] MEDS: MINERAL OIL/PETROLAT OPHT OINT 3.5 GM TUBE EACHEYE SCH (20:22)
[2021-05-30] MEDS: THIAMINE HCL 100 MG TABLET GT SCH (20:25)
[2021-05-30] MEDS: ASCORBIC ACID 500 MG TABLET GT SCH (20:25)
[2021-05-31] MEDS: BLOOD SUGAR DIAGNOSTIC 1 EACH STRIP VI SCH ×4 (00:34→17:11)
[2021-05-31] MEDS: LEVALBUTEROL HCL 1.25 MG/0.5 ML NEB NEB SCH ×4 (00:40→19:38)
[2021-05-31] MEDS: IPRATROPIUM BROMIDE 0.5 MG/2.5 ML NEBU NEB SCH ×4 (00:40→19:38)
[2021-05-31] MEDS: INSULIN REGULAR, HUMAN 300 UNIT/3 ML VIAL SQ PRN ×4 (00:43→17:26)
[2021-05-31] MEDS: ARGININE/GLUTAMINE/CALCIUM BMB 1 EACH POWD.PACK GT SCH ×2 (05:44→17:11)
[2021-05-31] MEDS: GLUCERNA 1.2 1000ML LIQUID GT PRN (05:50)
[2021-05-31 07:23] VITALS: BP 130/63
[2021-05-31] MEDS: HYDROGEN PEROXIDE 3% 118 ML BOTTLE TP SCH ×2 (09:00→19:38)
[2021-05-31] MEDS: ACETAMINOPHEN 650 MG/20 ML UDC- SA PATIENTS-PAIN ONLY GT SCH ×2 (09:07→20:30)
[2021-05-31] MEDS: TERAZOSIN 1 MG CAPSULE GT SCH (09:08)
[2021-05-31] MEDS: levETIRAcetam 500 MG/5 ML LIQUID UDC GT SCH ×2 (09:08→20:27)
[2021-05-31] MEDS: BACLOFEN 10 MG TABLET GT SCH ×2 (09:09→20:27)
[2021-05-31] MEDS: METOPROLOL TARTRATE 25 MG TABLET GT SCH ×2 (09:09→20:28)
[2021-05-31] MEDS: PHENOBARBITAL 97.2 MG TABLET GT SCH ×2 (09:10→20:28)
[2021-05-31] MEDS: FAMOTIDINE 20 MG TABLET GT SCH ×2 (09:10→20:28)
[2021-05-31] MEDS: AMANTADINE HCL 50 MG/5 ML GT SCH ×2 (09:10→20:28)
[2021-05-31] MEDS: HEPARIN SODIUM,PORCINE 5,000 UNITS/ML VIAL SQ SCH ×2 (09:11→20:45)
[2021-05-31] MEDS: VITAMINS A AND D OINT TP SCH ×2 (09:12→20:29)
[2021-05-31] MEDS: SODIUM HYPOCHLORITE 0.125% (QUARTER STRENGTH) 473 ML BOTTLE TP SCH ×2 (09:55→20:29)
[2021-05-31] MEDS: TRIAMCINOLONE ACET 0.1% CREAM 15 GM TUBE TP SCH ×2 (09:55→20:29)
[2021-05-31] MEDS: COD LIVER OIL/ZINC OXIDE OINT 113 GM TUBE TOP SCH ×2 (09:55→20:29)
[2021-05-31] MEDS: NYSTATIN CREAM 30 GM TUBE TP SCH ×2 (09:55→20:29)
[2021-05-31 12:00] VITALS: BP 139/85
[2021-05-31] MEDS: HYDROCODONE/APAP 5-325MG TABLET GT PRN ×2 (14:25→23:50)
--- NOTE | 2021-05-31 14:43 | NUR ---
Seen and examined by Cari Gil with no new orders.
[2021-05-31 18:08] VITALS: BP 141/80
[2021-05-31 20:00] VITALS: BP 142/83
[2021-05-31] MEDS: MINERAL OIL/PETROLAT OPHT OINT 3.5 GM TUBE EACHEYE SCH (20:26)
[2021-05-31] MEDS: hydrALAZINE HCL 25 MG TABLET GT SCH (20:27)
[2021-05-31] MEDS: ATORVASTATIN 40 MG TABLET GT SCH (20:28)
[2021-05-31] MEDS: THIAMINE HCL 100 MG TABLET GT SCH (20:29)
[2021-05-31] MEDS: ASCORBIC ACID 500 MG TABLET GT SCH (20:29)
[2021-06-01] MEDS: LEVALBUTEROL HCL 1.25 MG/0.5 ML NEB NEB SCH ×4 (00:41→19:24)
[2021-06-01] MEDS: IPRATROPIUM BROMIDE 0.5 MG/2.5 ML NEBU NEB SCH ×4 (00:41→19:24)
[2021-06-01] MEDS: BLOOD SUGAR DIAGNOSTIC 1 EACH STRIP VI SCH ×5 (00:50→23:37)
[2021-06-01] MEDS: GLUCERNA 1.2 1000ML LIQUID GT PRN ×2 (01:10→18:05)
[2021-06-01] MEDS: INSULIN REGULAR, HUMAN 300 UNIT/3 ML VIAL SQ PRN ×5 (01:39→23:38)
[2021-06-01] MEDS: ARGININE/GLUTAMINE/CALCIUM BMB 1 EACH POWD.PACK GT SCH ×2 (06:09→17:18)
[2021-06-01] MEDS: HYDROGEN PEROXIDE 3% 118 ML BOTTLE TP SCH ×2 (07:25→19:24)
[2021-06-01 07:51] VITALS: BP 132/73
[2021-06-01] MEDS: PHENOBARBITAL 97.2 MG TABLET GT SCH ×2 (09:01→20:43)
[2021-06-01] MEDS: ACETAMINOPHEN 650 MG/20 ML UDC- SA PATIENTS-PAIN ONLY GT SCH ×2 (09:02→20:30)
[2021-06-01] MEDS: BACLOFEN 10 MG TABLET GT SCH ×2 (09:02→20:43)
[2021-06-01] MEDS: TERAZOSIN 1 MG CAPSULE GT SCH (09:03)
[2021-06-01] MEDS: levETIRAcetam 500 MG/5 ML LIQUID UDC GT SCH ×2 (09:03→20:43)
[2021-06-01] MEDS: METOPROLOL TARTRATE 25 MG TABLET GT SCH ×2 (09:04→20:43)
[2021-06-01] MEDS: AMANTADINE HCL 50 MG/5 ML GT SCH ×2 (09:04→20:43)
[2021-06-01] MEDS: FAMOTIDINE 20 MG TABLET GT SCH ×2 (09:04→20:43)
[2021-06-01] MEDS: HEPARIN SODIUM,PORCINE 5,000 UNITS/ML VIAL SQ SCH ×2 (09:05→20:45)
[2021-06-01] MEDS: SODIUM HYPOCHLORITE 0.125% (QUARTER STRENGTH) 473 ML BOTTLE TP SCH ×2 (09:55→20:46)
[2021-06-01] MEDS: NYSTATIN CREAM 30 GM TUBE TP SCH ×2 (09:55→20:46)
[2021-06-01] MEDS: TRIAMCINOLONE ACET 0.1% CREAM 15 GM TUBE TP SCH ×2 (09:55→20:46)
[2021-06-01] MEDS: COD LIVER OIL/ZINC OXIDE OINT 113 GM TUBE TOP SCH ×2 (09:55→20:45)
[2021-06-01] MEDS: VITAMINS A AND D OINT TP SCH ×2 (09:55→20:46)
[2021-06-01 12:00] VITALS: BP 138/85
[2021-06-01] MEDS: HYDROCODONE/APAP 5-325MG TABLET GT PRN (13:18)
[2021-06-01 18:00] VITALS: BP 130/74
[2021-06-01 20:00] VITALS: BP 131/90
[2021-06-01] MEDS: LORAZEPAM 1 MG TABLET GT PRN (20:30)
[2021-06-01] MEDS: MINERAL OIL/PETROLAT OPHT OINT 3.5 GM TUBE EACHEYE SCH (20:40)
[2021-06-01] MEDS: hydrALAZINE HCL 25 MG TABLET GT SCH (20:41)
[2021-06-01] MEDS: ATORVASTATIN 40 MG TABLET GT SCH (20:43)
[2021-06-01] MEDS: THIAMINE HCL 100 MG TABLET GT SCH (20:44)
[2021-06-01] MEDS: ASCORBIC ACID 500 MG TABLET GT SCH (20:44)
[2021-06-01 21:48] VITALS: BP 115/67
--- NOTE | 2021-06-01 22:00 | NUR ---
Thomas catheter was plugged, unable to flush. Thomas catheter was stuck this Nurse was able to replaced Thomas catheter but noted with some bleeding, flushed thomas catheter with NS, kept patient clean and comfortable, will continue monitor.
[2021-06-02] VITALS: BP 128/78
[2021-06-02] MEDS: LEVALBUTEROL HCL 1.25 MG/0.5 ML NEB NEB SCH ×4 (00:49→18:50)
[2021-06-02] MEDS: IPRATROPIUM BROMIDE 0.5 MG/2.5 ML NEBU NEB SCH ×4 (00:49→18:50)
[2021-06-02] MEDS: BLOOD SUGAR DIAGNOSTIC 1 EACH STRIP VI SCH ×4 (05:16→23:52)
[2021-06-02] MEDS: ARGININE/GLUTAMINE/CALCIUM BMB 1 EACH POWD.PACK GT SCH ×2 (05:16→17:33)
[2021-06-02] MEDS: INSULIN REGULAR, HUMAN 300 UNIT/3 ML VIAL SQ PRN ×2 (05:17→12:05)
--- NOTE | 2021-06-02 05:58 | NUR ---
Patient is afebrile, thomas catheter is now with clear yellow urine, good diane care rendered, will continue monitor.
[2021-06-02 06:02] VITALS: BP 147/74
[2021-06-02] MEDS: ACETAMINOPHEN 650 MG/20 ML UDC- SA PATIENTS-PAIN ONLY GT SCH ×2 (08:43→20:42)
[2021-06-02] MEDS: levETIRAcetam 500 MG/5 ML LIQUID UDC GT SCH ×2 (08:45→20:43)
[2021-06-02] MEDS: TERAZOSIN 1 MG CAPSULE GT SCH (08:45)
[2021-06-02] MEDS: BACLOFEN 10 MG TABLET GT SCH ×2 (08:46→20:43)
[2021-06-02] MEDS: FAMOTIDINE 20 MG TABLET GT SCH ×2 (08:47→20:43)
[2021-06-02] MEDS: METOPROLOL TARTRATE 25 MG TABLET GT SCH ×2 (08:47→20:43)
[2021-06-02] MEDS: AMANTADINE HCL 50 MG/5 ML GT SCH ×2 (08:47→20:43)
[2021-06-02] MEDS: PHENOBARBITAL 97.2 MG TABLET GT SCH ×2 (08:47→20:43)
[2021-06-02] MEDS: COD LIVER OIL/ZINC OXIDE OINT 113 GM TUBE TOP SCH ×2 (08:49→20:43)
[2021-06-02] MEDS: HEPARIN SODIUM,PORCINE 5,000 UNITS/ML VIAL SQ SCH ×2 (08:49→21:53)
[2021-06-02] MEDS: TRIAMCINOLONE ACET 0.1% CREAM 15 GM TUBE TP SCH ×2 (09:00→20:44)
[2021-06-02] MEDS: VITAMINS A AND D OINT TP SCH ×2 (09:00→20:44)
[2021-06-02] MEDS: NYSTATIN CREAM 30 GM TUBE TP SCH ×2 (09:00→20:44)
[2021-06-02] MEDS: HYDROGEN PEROXIDE 3% 118 ML BOTTLE TP SCH ×2 (09:03→21:24)
[2021-06-02] MEDS: SODIUM HYPOCHLORITE 0.125% (QUARTER STRENGTH) 473 ML BOTTLE TP SCH ×2 (09:45→20:43)
[2021-06-02 12:00] VITALS: BP_SYST 138; BP_SYST 140; BP_DIAS 56; BP_DIAS 88
[2021-06-02 17:49] VITALS: BP 144/88
[2021-06-02 20:00] VITALS: BP 148/87
[2021-06-02] MEDS: MINERAL OIL/PETROLAT OPHT OINT 3.5 GM TUBE EACHEYE SCH (20:42)
[2021-06-02] MEDS: hydrALAZINE HCL 25 MG TABLET GT SCH (20:43)
[2021-06-02] MEDS: ATORVASTATIN 40 MG TABLET GT SCH (20:43)
[2021-06-02] MEDS: ASCORBIC ACID 500 MG TABLET GT SCH (20:43)
[2021-06-02] MEDS: THIAMINE HCL 100 MG TABLET GT SCH (20:43)
[2021-06-02 23:56] VITALS: BP 137/80
[2021-06-03] MEDS: IPRATROPIUM BROMIDE 0.5 MG/2.5 ML NEBU NEB SCH ×4 (01:09→19:13)
[2021-06-03] MEDS: LEVALBUTEROL HCL 1.25 MG/0.5 ML NEB NEB SCH ×4 (01:09→19:13)
[2021-06-03] MEDS: INSULIN REGULAR, HUMAN 300 UNIT/3 ML VIAL SQ PRN ×3 (01:32→23:20)
[2021-06-03 04:55] VITALS: BP 130/77
[2021-06-03] MEDS: BLOOD SUGAR DIAGNOSTIC 1 EACH STRIP VI SCH ×4 (05:24→23:14)
[2021-06-03] MEDS: ARGININE/GLUTAMINE/CALCIUM BMB 1 EACH POWD.PACK GT SCH ×2 (05:24→17:05)
[2021-06-03 07:59] VITALS: BP 157/78
[2021-06-03] MEDS: ACETAMINOPHEN 650 MG/20 ML UDC- SA PATIENTS-PAIN ONLY GT SCH ×2 (08:40→20:47)
[2021-06-03] MEDS: TERAZOSIN 1 MG CAPSULE GT SCH (08:41)
[2021-06-03] MEDS: levETIRAcetam 500 MG/5 ML LIQUID UDC GT SCH ×2 (08:42→20:47)
[2021-06-03] MEDS: BACLOFEN 10 MG TABLET GT SCH ×2 (08:42→20:47)
[2021-06-03] MEDS: AMANTADINE HCL 50 MG/5 ML GT SCH ×2 (08:43→20:48)
[2021-06-03] MEDS: FAMOTIDINE 20 MG TABLET GT SCH ×2 (08:43→20:48)
[2021-06-03] MEDS: PHENOBARBITAL 97.2 MG TABLET GT SCH ×2 (08:43→20:48)
[2021-06-03] MEDS: COD LIVER OIL/ZINC OXIDE OINT 113 GM TUBE TOP SCH ×2 (08:43→21:04)
[2021-06-03] MEDS: METOPROLOL TARTRATE 25 MG TABLET GT SCH ×2 (08:43→20:48)
[2021-06-03] MEDS: HEPARIN SODIUM,PORCINE 5,000 UNITS/ML VIAL SQ SCH ×2 (08:44→21:04)
[2021-06-03] MEDS: VITAMINS A AND D OINT TP SCH ×2 (09:00→21:05)
[2021-06-03] MEDS: HYDROGEN PEROXIDE 3% 118 ML BOTTLE TP SCH ×2 (09:25→21:59)
[2021-06-03] MEDS: SODIUM HYPOCHLORITE 0.125% (QUARTER STRENGTH) 473 ML BOTTLE TP SCH ×2 (09:40→21:04)
[2021-06-03] MEDS: TRIAMCINOLONE ACET 0.1% CREAM 15 GM TUBE TP SCH ×2 (09:45→21:04)
[2021-06-03] MEDS: NYSTATIN CREAM 30 GM TUBE TP SCH ×2 (09:45→21:05)
[2021-06-03 12:00] VITALS: BP 148/65
[2021-06-03] MEDS: GLUCERNA 1.2 1000ML LIQUID GT PRN (12:19)
[2021-06-03 18:49] VITALS: BP 144/75
[2021-06-03 20:21] VITALS: BP 153/84
[2021-06-03] MEDS: hydrALAZINE HCL 25 MG TABLET GT SCH (20:47)
[2021-06-03] MEDS: ATORVASTATIN 40 MG TABLET GT SCH (20:47)
[2021-06-03] MEDS: MINERAL OIL/PETROLAT OPHT OINT 3.5 GM TUBE EACHEYE SCH (20:47)
[2021-06-03] MEDS: THIAMINE HCL 100 MG TABLET GT SCH (20:48)
[2021-06-03] MEDS: ASCORBIC ACID 500 MG TABLET GT SCH (20:49)
[2021-06-04] VITALS: BP 126/76
[2021-06-04] MEDS: IPRATROPIUM BROMIDE 0.5 MG/2.5 ML NEBU NEB SCH ×4 (00:48→19:15)
[2021-06-04] MEDS: LEVALBUTEROL HCL 1.25 MG/0.5 ML NEB NEB SCH ×4 (00:48→19:15)
[2021-06-04] MEDS: BLOOD SUGAR DIAGNOSTIC 1 EACH STRIP VI SCH ×3 (05:00→17:04)
[2021-06-04] MEDS: ARGININE/GLUTAMINE/CALCIUM BMB 1 EACH POWD.PACK GT SCH ×2 (05:00→17:04)
[2021-06-04] MEDS: INSULIN REGULAR, HUMAN 300 UNIT/3 ML VIAL SQ PRN ×2 (05:01→11:46)
[2021-06-04 05:08] VITALS: BP 136/77
[2021-06-04] MEDS: GLUCERNA 1.2 1000ML LIQUID GT PRN (05:49)
[2021-06-04 07:36] VITALS: BP 152/93
[2021-06-04] MEDS: VITAMINS A AND D OINT TP SCH ×2 (09:00→21:35)
[2021-06-04] MEDS: HYDROGEN PEROXIDE 3% 118 ML BOTTLE TP SCH ×2 (09:00→21:34)
[2021-06-04] MEDS: TRIAMCINOLONE ACET 0.1% CREAM 15 GM TUBE TP SCH ×2 (09:00→21:35)
[2021-06-04] MEDS: ACETAMINOPHEN 650 MG/20 ML UDC- SA PATIENTS-PAIN ONLY GT SCH ×2 (09:02→20:30)
[2021-06-04] MEDS: TERAZOSIN 1 MG CAPSULE GT SCH (09:02)
[2021-06-04] MEDS: BACLOFEN 10 MG TABLET GT SCH ×2 (09:03→21:34)
[2021-06-04] MEDS: levETIRAcetam 500 MG/5 ML LIQUID UDC GT SCH ×2 (09:03→21:34)
[2021-06-04] MEDS: METOPROLOL TARTRATE 25 MG TABLET GT SCH ×2 (09:04→21:34)
[2021-06-04] MEDS: FAMOTIDINE 20 MG TABLET GT SCH ×2 (09:04→21:34)
[2021-06-04] MEDS: COD LIVER OIL/ZINC OXIDE OINT 113 GM TUBE TOP SCH ×2 (09:05→21:35)
[2021-06-04] MEDS: AMANTADINE HCL 50 MG/5 ML GT SCH ×2 (09:05→21:34)
[2021-06-04] MEDS: PHENOBARBITAL 97.2 MG TABLET GT SCH ×2 (09:05→21:34)
[2021-06-04] MEDS: HEPARIN SODIUM,PORCINE 5,000 UNITS/ML VIAL SQ SCH ×2 (09:07→21:53)
[2021-06-04] MEDS: NYSTATIN CREAM 30 GM TUBE TP SCH ×2 (10:02→21:35)
[2021-06-04] MEDS: SODIUM HYPOCHLORITE 0.125% (QUARTER STRENGTH) 473 ML BOTTLE TP SCH ×2 (10:02→21:35)
[2021-06-04 12:00] VITALS: BP 144/84
[2021-06-04 18:18] VITALS: BP 146/74
--- NOTE | 2021-06-04 19:26 | NUR ---
pt has episodes of bronchospasm and a episode of small vomiting when coughing. Addendum: 06/08/21 at 1927 by MERON BARRETO RN no further vomiting noted.
[2021-06-04] MEDS: MINERAL OIL/PETROLAT OPHT OINT 3.5 GM TUBE EACHEYE SCH (21:33)
[2021-06-04] MEDS: ATORVASTATIN 40 MG TABLET GT SCH (21:34)
[2021-06-04] MEDS: ASCORBIC ACID 500 MG TABLET GT SCH (21:34)
[2021-06-04] MEDS: THIAMINE HCL 100 MG TABLET GT SCH (21:34)
[2021-06-04] MEDS: hydrALAZINE HCL 25 MG TABLET GT SCH (21:34)
[2021-06-04 23:11] VITALS: BP 145/83
[2021-06-05] MEDS: LEVALBUTEROL HCL 1.25 MG/0.5 ML NEB NEB SCH ×4 (00:52→19:12)
[2021-06-05] MEDS: IPRATROPIUM BROMIDE 0.5 MG/2.5 ML NEBU NEB SCH ×4 (00:52→19:12)
[2021-06-05] MEDS: INSULIN REGULAR, HUMAN 300 UNIT/3 ML VIAL SQ PRN ×3 (01:17→11:56)
[2021-06-05] MEDS: GLUCERNA 1.2 1000ML LIQUID GT PRN (01:18)
[2021-06-05 01:28] VITALS: BP 115/75
[2021-06-05] MEDS: ARGININE/GLUTAMINE/CALCIUM BMB 1 EACH POWD.PACK GT SCH ×2 (05:09→17:43)
[2021-06-05] MEDS: BLOOD SUGAR DIAGNOSTIC 1 EACH STRIP VI SCH ×4 (05:09→17:45)
[2021-06-05] MEDS: ACETAMINOPHEN 650 MG/20 ML UDC- SA PATIENTS-PAIN ONLY GT SCH ×2 (08:23→21:07)
[2021-06-05] MEDS: levETIRAcetam 500 MG/5 ML LIQUID UDC GT SCH ×2 (08:24→21:08)
[2021-06-05] MEDS: TERAZOSIN 1 MG CAPSULE GT SCH (08:24)
[2021-06-05] MEDS: BACLOFEN 10 MG TABLET GT SCH ×2 (08:24→21:08)
[2021-06-05] MEDS: PHENOBARBITAL 97.2 MG TABLET GT SCH ×2 (08:25→21:09)
[2021-06-05] MEDS: FAMOTIDINE 20 MG TABLET GT SCH ×2 (08:25→21:09)
[2021-06-05] MEDS: METOPROLOL TARTRATE 25 MG TABLET GT SCH ×2 (08:25→21:09)
[2021-06-05] MEDS: AMANTADINE HCL 50 MG/5 ML GT SCH ×2 (08:26→21:09)
[2021-06-05] MEDS: HEPARIN SODIUM,PORCINE 5,000 UNITS/ML VIAL SQ SCH ×2 (08:28→21:00)
[2021-06-05] MEDS: NYSTATIN CREAM 30 GM TUBE TP SCH ×2 (08:34→21:00)
[2021-06-05] MEDS: TRIAMCINOLONE ACET 0.1% CREAM 15 GM TUBE TP SCH ×2 (08:34→21:00)
[2021-06-05] MEDS: VITAMINS A AND D OINT TP SCH ×2 (08:34→21:09)
[2021-06-05] MEDS: COD LIVER OIL/ZINC OXIDE OINT 113 GM TUBE TOP SCH ×2 (08:34→21:09)
[2021-06-05] MEDS: SODIUM HYPOCHLORITE 0.125% (QUARTER STRENGTH) 473 ML BOTTLE TP SCH ×2 (08:34→21:00)
[2021-06-05 09:08] VITALS: BP 124/76
[2021-06-05] MEDS: HYDROGEN PEROXIDE 3% 118 ML BOTTLE TP SCH ×2 (09:35→21:38)
[2021-06-05 12:18] VITALS: BP 131/70
[2021-06-05 18:11] VITALS: BP 134/68
[2021-06-05] MEDS: HYDROCODONE/APAP 5-325MG TABLET GT PRN (18:52)
[2021-06-05] MEDS: LORAZEPAM 1 MG TABLET GT PRN (19:30)
[2021-06-05 20:42] VITALS: BP 123/72
[2021-06-05] MEDS: hydrALAZINE HCL 25 MG TABLET GT SCH (21:08)
[2021-06-05] MEDS: MINERAL OIL/PETROLAT OPHT OINT 3.5 GM TUBE EACHEYE SCH (21:08)
[2021-06-05] MEDS: ATORVASTATIN 40 MG TABLET GT SCH (21:08)
[2021-06-05] MEDS: ASCORBIC ACID 500 MG TABLET GT SCH (21:09)
[2021-06-05] MEDS: THIAMINE HCL 100 MG TABLET GT SCH (21:09)
[2021-06-06] VITALS: BP 140/80
[2021-06-06] MEDS: BLOOD SUGAR DIAGNOSTIC 1 EACH STRIP VI SCH ×4 (00:17→17:54)
[2021-06-06] MEDS: LEVALBUTEROL HCL 1.25 MG/0.5 ML NEB NEB SCH ×4 (00:39→19:12)
[2021-06-06] MEDS: IPRATROPIUM BROMIDE 0.5 MG/2.5 ML NEBU NEB SCH ×4 (00:39→19:12)
[2021-06-06] MEDS: INSULIN REGULAR, HUMAN 300 UNIT/3 ML VIAL SQ PRN ×4 (00:56→17:55)
[2021-06-06] MEDS: LORAZEPAM 1 MG TABLET GT PRN ×2 (03:02→18:33)
[2021-06-06] MEDS: GLUCERNA 1.2 1000ML LIQUID GT PRN (03:03)
[2021-06-06] MEDS: ARGININE/GLUTAMINE/CALCIUM BMB 1 EACH POWD.PACK GT SCH ×2 (05:21→17:51)
[2021-06-06 06:00] VITALS: BP 147/81
[2021-06-06 07:31] VITALS: BP 152/78
[2021-06-06] MEDS: ACETAMINOPHEN 650 MG/20 ML UDC- SA PATIENTS-PAIN ONLY GT SCH ×2 (08:07→20:35)
[2021-06-06] MEDS: TERAZOSIN 1 MG CAPSULE GT SCH (08:07)
[2021-06-06] MEDS: PHENOBARBITAL 97.2 MG TABLET GT SCH ×2 (08:07→20:36)
[2021-06-06] MEDS: BACLOFEN 10 MG TABLET GT SCH ×2 (08:07→20:35)
[2021-06-06] MEDS: METOPROLOL TARTRATE 25 MG TABLET GT SCH ×2 (08:07→20:36)
[2021-06-06] MEDS: FAMOTIDINE 20 MG TABLET GT SCH ×2 (08:07→20:36)
[2021-06-06] MEDS: AMANTADINE HCL 50 MG/5 ML GT SCH ×2 (08:07→20:36)
[2021-06-06] MEDS: levETIRAcetam 500 MG/5 ML LIQUID UDC GT SCH ×2 (08:07→20:35)
[2021-06-06] MEDS: COD LIVER OIL/ZINC OXIDE OINT 113 GM TUBE TOP SCH ×2 (08:08→20:36)
[2021-06-06] MEDS: HEPARIN SODIUM,PORCINE 5,000 UNITS/ML VIAL SQ SCH ×2 (08:08→21:00)
[2021-06-06] MEDS: SODIUM HYPOCHLORITE 0.125% (QUARTER STRENGTH) 473 ML BOTTLE TP SCH ×2 (08:08→21:00)
[2021-06-06] MEDS: NYSTATIN CREAM 30 GM TUBE TP SCH ×2 (08:08→21:00)
[2021-06-06] MEDS: VITAMINS A AND D OINT TP SCH ×2 (08:08→20:36)
[2021-06-06] MEDS: TRIAMCINOLONE ACET 0.1% CREAM 15 GM TUBE TP SCH ×2 (08:08→21:00)
[2021-06-06] MEDS: HYDROGEN PEROXIDE 3% 118 ML BOTTLE TP SCH ×2 (08:58→21:48)
[2021-06-06 12:10] VITALS: BP 138/79
[2021-06-06 13:52] LABS: HEMATOCRIT 35.3 % (36.7-47.1); MEAN CORPUSCULAR HEMOGLOBIN 28.2 uug (23.8-33.4); MEAN CORPUSCULAR VOLUME 87.4 fL (73.0-96.2); PLATELET COUNT (AUTO) 341 K/uL (152-348)
[2021-06-06 14:04] LABS: CARBON DIOXIDE 31 mmol/L (21-32); CHLORIDE 100 mmol/L (98-107); CREATININE 0.5 mg/dL (0.6-1.3); GLUCOSE 191 mg/dL (74-106); POTASSIUM 4.4 mmol/L (3.5-5.1); UREA NITROGEN, BLOOD 28 mg/dL (7-18)
[2021-06-06 18:20] VITALS: BP 138/89
[2021-06-06] MEDS: HYDROCODONE/APAP 5-325MG TABLET GT PRN (18:34)
[2021-06-06] MEDS: ATORVASTATIN 40 MG TABLET GT SCH (20:35)
[2021-06-06] MEDS: MINERAL OIL/PETROLAT OPHT OINT 3.5 GM TUBE EACHEYE SCH (20:35)
[2021-06-06] MEDS: hydrALAZINE HCL 25 MG TABLET GT SCH (20:35)
[2021-06-06] MEDS: THIAMINE HCL 100 MG TABLET GT SCH (20:36)
[2021-06-06] MEDS: ASCORBIC ACID 500 MG TABLET GT SCH (20:36)
[2021-06-06 20:44] VITALS: BP 140/81
[2021-06-07] MEDS: BLOOD SUGAR DIAGNOSTIC 1 EACH STRIP VI SCH ×4 (00:45→17:09)
[2021-06-07] MEDS: INSULIN REGULAR, HUMAN 300 UNIT/3 ML VIAL SQ PRN ×4 (00:47→17:13)
[2021-06-07] MEDS: LEVALBUTEROL HCL 1.25 MG/0.5 ML NEB NEB SCH ×4 (01:02→18:51)
[2021-06-07] MEDS: IPRATROPIUM BROMIDE 0.5 MG/2.5 ML NEBU NEB SCH ×4 (01:02→18:51)
[2021-06-07] MEDS: LORAZEPAM 1 MG TABLET GT PRN ×3 (05:30→17:30)
[2021-06-07] MEDS: ARGININE/GLUTAMINE/CALCIUM BMB 1 EACH POWD.PACK GT SCH ×2 (06:20→17:09)
[2021-06-07] MEDS: GLUCERNA 1.2 1000ML LIQUID GT PRN (06:25)
[2021-06-07 08:00] VITALS: BP 143/78
[2021-06-07] MEDS: ACETAMINOPHEN 650 MG/20 ML UDC- SA PATIENTS-PAIN ONLY GT SCH ×2 (08:04→20:54)
[2021-06-07] MEDS: METOPROLOL TARTRATE 25 MG TABLET GT SCH ×2 (08:05→20:55)
[2021-06-07] MEDS: BACLOFEN 10 MG TABLET GT SCH ×2 (08:05→20:55)
[2021-06-07] MEDS: levETIRAcetam 500 MG/5 ML LIQUID UDC GT SCH ×2 (08:05→20:55)
[2021-06-07] MEDS: TERAZOSIN 1 MG CAPSULE GT SCH (08:05)
[2021-06-07] MEDS: HEPARIN SODIUM,PORCINE 5,000 UNITS/ML VIAL SQ SCH ×2 (08:06→20:56)
[2021-06-07] MEDS: PHENOBARBITAL 97.2 MG TABLET GT SCH ×2 (08:06→20:55)
[2021-06-07] MEDS: FAMOTIDINE 20 MG TABLET GT SCH ×2 (08:06→20:55)
[2021-06-07] MEDS: AMANTADINE HCL 50 MG/5 ML GT SCH ×2 (08:06→20:55)
[2021-06-07] MEDS: TRIAMCINOLONE ACET 0.1% CREAM 15 GM TUBE TP SCH ×2 (08:07→20:56)
[2021-06-07] MEDS: VITAMINS A AND D OINT TP SCH ×2 (08:07→20:56)
[2021-06-07] MEDS: COD LIVER OIL/ZINC OXIDE OINT 113 GM TUBE TOP SCH ×2 (08:07→20:56)
[2021-06-07] MEDS: SODIUM HYPOCHLORITE 0.125% (QUARTER STRENGTH) 473 ML BOTTLE TP SCH ×2 (08:07→20:56)
[2021-06-07] MEDS: NYSTATIN CREAM 30 GM TUBE TP SCH ×2 (08:07→20:56)
[2021-06-07] MEDS: HYDROGEN PEROXIDE 3% 118 ML BOTTLE TP SCH ×2 (09:14→21:11)
--- NOTE | 2021-06-07 10:00 | NUR ---
Seen and examined by Cari Gil with no new orders.
[2021-06-07] MEDS: HYDROCODONE/APAP 5-325MG TABLET GT PRN ×2 (11:00→17:30)
[2021-06-07 11:15] VITALS: BP 136/88
--- NOTE | 2021-06-07 17:01 | NUR ---
This ASP DEVELOPER notified patient's daughter Janis by email that the next IDT meeting for the patient is scheduled for 06/14/2021 at 11am. This ASP DEVELOPER asked Janis to let this ASP DEVELOPER know if Janis would be available to participate in the meeting.
[2021-06-07 17:27] VITALS: BP 137/82
[2021-06-07 20:38] VITALS: BP 147/82
[2021-06-07] MEDS: hydrALAZINE HCL 25 MG TABLET GT SCH (20:54)
[2021-06-07] MEDS: MINERAL OIL/PETROLAT OPHT OINT 3.5 GM TUBE EACHEYE SCH (20:54)
[2021-06-07] MEDS: THIAMINE HCL 100 MG TABLET GT SCH (20:55)
[2021-06-07] MEDS: ASCORBIC ACID 500 MG TABLET GT SCH (20:55)
[2021-06-07] MEDS: ATORVASTATIN 40 MG TABLET GT SCH (20:55)
[2021-06-08] MEDS: BLOOD SUGAR DIAGNOSTIC 1 EACH STRIP VI SCH ×4 (00:19→18:11)
[2021-06-08] MEDS: INSULIN REGULAR, HUMAN 300 UNIT/3 ML VIAL SQ PRN ×4 (00:20→18:13)
[2021-06-08] MEDS: LEVALBUTEROL HCL 1.25 MG/0.5 ML NEB NEB SCH ×4 (00:32→19:40)
[2021-06-08] MEDS: IPRATROPIUM BROMIDE 0.5 MG/2.5 ML NEBU NEB SCH ×4 (00:32→19:40)
[2021-06-08] MEDS: GLUCERNA 1.2 1000ML LIQUID GT PRN (00:45)
[2021-06-08] MEDS: LORAZEPAM 1 MG TABLET GT PRN ×3 (05:00→20:00)
[2021-06-08] MEDS: ARGININE/GLUTAMINE/CALCIUM BMB 1 EACH POWD.PACK GT SCH ×2 (05:23→18:09)
[2021-06-08] MEDS: HYDROCODONE/APAP 5-325MG TABLET GT PRN ×4 (06:00→22:30)
[2021-06-08 07:24] VITALS: BP 152/90
[2021-06-08] MEDS: TERAZOSIN 1 MG CAPSULE GT SCH (08:21)
[2021-06-08] MEDS: ACETAMINOPHEN 650 MG/20 ML UDC- SA PATIENTS-PAIN ONLY GT SCH ×2 (08:21→20:30)
[2021-06-08] MEDS: levETIRAcetam 500 MG/5 ML LIQUID UDC GT SCH ×2 (08:21→20:38)
[2021-06-08] MEDS: BACLOFEN 10 MG TABLET GT SCH ×2 (08:23→20:38)
[2021-06-08] MEDS: METOPROLOL TARTRATE 25 MG TABLET GT SCH ×2 (08:23→20:39)
[2021-06-08] MEDS: FAMOTIDINE 20 MG TABLET GT SCH ×2 (08:23→20:39)
[2021-06-08] MEDS: AMANTADINE HCL 50 MG/5 ML GT SCH ×2 (08:24→20:39)
[2021-06-08] MEDS: SODIUM HYPOCHLORITE 0.125% (QUARTER STRENGTH) 473 ML BOTTLE TP SCH ×2 (08:24→20:42)
[2021-06-08] MEDS: PHENOBARBITAL 97.2 MG TABLET GT SCH ×2 (08:24→20:39)
[2021-06-08] MEDS: TRIAMCINOLONE ACET 0.1% CREAM 15 GM TUBE TP SCH ×2 (08:24→20:42)
[2021-06-08] MEDS: COD LIVER OIL/ZINC OXIDE OINT 113 GM TUBE TOP SCH ×2 (08:24→20:42)
[2021-06-08] MEDS: VITAMINS A AND D OINT TP SCH ×2 (08:25→20:42)
[2021-06-08] MEDS: NYSTATIN CREAM 30 GM TUBE TP SCH ×2 (08:25→20:42)
[2021-06-08] MEDS: HEPARIN SODIUM,PORCINE 5,000 UNITS/ML VIAL SQ SCH ×2 (08:26→20:42)
[2021-06-08] MEDS: HYDROGEN PEROXIDE 3% 118 ML BOTTLE TP SCH ×2 (08:55→21:00)
--- NOTE | 2021-06-08 18:30 | NUR ---
Covid 19 test result negative,Pt's responsible democrat notified
--- NOTE | 2021-06-08 19:13 | NUR ---
Seen and examined By Dr Peralta ,notified Pt has episodes of bronchospasm ,episodes of small amount of vomiting,new orders noted.
[2021-06-08 20:00] VITALS: BP 111/75
[2021-06-08] MEDS: MINERAL OIL/PETROLAT OPHT OINT 3.5 GM TUBE EACHEYE SCH (20:36)
[2021-06-08] MEDS: hydrALAZINE HCL 25 MG TABLET GT SCH (20:38)
[2021-06-08] MEDS: ATORVASTATIN 40 MG TABLET GT SCH (20:38)
[2021-06-08] MEDS: THIAMINE HCL 100 MG TABLET GT SCH (20:39)
[2021-06-08] MEDS: ASCORBIC ACID 500 MG TABLET GT SCH (20:39)
[2021-06-09] MEDS: BLOOD SUGAR DIAGNOSTIC 1 EACH STRIP VI SCH ×4 (00:11→18:36)
[2021-06-09] MEDS: INSULIN REGULAR, HUMAN 300 UNIT/3 ML VIAL SQ PRN ×3 (00:13→18:39)
[2021-06-09] MEDS: GLUCERNA 1.2 1000ML LIQUID GT PRN (00:22)
[2021-06-09] MEDS: LEVALBUTEROL HCL 1.25 MG/0.5 ML NEB NEB SCH ×4 (00:40→18:58)
[2021-06-09] MEDS: IPRATROPIUM BROMIDE 0.5 MG/2.5 ML NEBU NEB SCH ×4 (00:40→18:58)
[2021-06-09] MEDS: HYDROCODONE/APAP 5-325MG TABLET GT PRN ×2 (05:00→19:03)
[2021-06-09] MEDS: LORAZEPAM 1 MG TABLET GT PRN ×2 (05:00→17:30)
[2021-06-09] MEDS: ARGININE/GLUTAMINE/CALCIUM BMB 1 EACH POWD.PACK GT SCH ×2 (05:46→17:29)
[2021-06-09 06:14] LABS: ABG BASE EXCESS 7.3 mmol/L; ABG PCO2 45.5 mmHg (35.0-45.0); ABG PH 7.465 (7.350-7.450); ABG PO2 77.9 mmHg (75.0-100.0); ABG SITE RIGHT RADIAL; ABG TOTAL HEMOGLOBIN 11.9 G/dL (13.5-18.0); COHb 1.6 % (0.5-1.5); MetHb 0.2 % (0.0-1.5); O2Hb 93.8 % (94.0-97.0)
[2021-06-09 06:32] LABS: HEMATOCRIT 30.2 % (36.7-47.1); MEAN CORPUSCULAR HEMOGLOBIN 28.3 uug (23.8-33.4); MEAN CORPUSCULAR VOLUME 85.9 fL (73.0-96.2); PLATELET COUNT (AUTO) 283 K/uL (152-348)
--- NOTE | 2021-06-09 06:53 | NUR ---
Patient noted with bronchospasm- breathing treatment provided. Also with some period of aspiration. Feeding held during bronchospasm. Afebrile. Sats 97%. Pending labs in am for CBC and procalcitonin and CXR and ABG. Continue to monitor.
[2021-06-09] MEDS: HYDROGEN PEROXIDE 3% 118 ML BOTTLE TP SCH ×2 (07:45→20:04)
[2021-06-09 08:02] VITALS: BP 141/74
[2021-06-09] MEDS: TERAZOSIN 1 MG CAPSULE GT SCH (08:39)
[2021-06-09] MEDS: ACETAMINOPHEN 650 MG/20 ML UDC- SA PATIENTS-PAIN ONLY GT SCH ×2 (08:39→20:30)
[2021-06-09] MEDS: BACLOFEN 10 MG TABLET GT SCH ×2 (08:39→21:04)
[2021-06-09] MEDS: METOPROLOL TARTRATE 25 MG TABLET GT SCH ×2 (08:39→21:00)
[2021-06-09] MEDS: levETIRAcetam 500 MG/5 ML LIQUID UDC GT SCH ×2 (08:39→21:04)
[2021-06-09] MEDS: FAMOTIDINE 20 MG TABLET GT SCH ×2 (08:39→21:04)
[2021-06-09] MEDS: PHENOBARBITAL 97.2 MG TABLET GT SCH ×2 (08:40→21:04)
[2021-06-09] MEDS: COD LIVER OIL/ZINC OXIDE OINT 113 GM TUBE TOP SCH ×2 (08:40→21:05)
[2021-06-09] MEDS: SODIUM HYPOCHLORITE 0.125% (QUARTER STRENGTH) 473 ML BOTTLE TP SCH ×2 (08:40→21:05)
[2021-06-09] MEDS: TRIAMCINOLONE ACET 0.1% CREAM 15 GM TUBE TP SCH ×2 (08:40→21:05)
[2021-06-09] MEDS: VITAMINS A AND D OINT TP SCH ×2 (08:40→21:05)
[2021-06-09] MEDS: AMANTADINE HCL 50 MG/5 ML GT SCH ×2 (08:40→21:04)
[2021-06-09] MEDS: NYSTATIN CREAM 30 GM TUBE TP SCH ×2 (08:40→21:05)
[2021-06-09] MEDS: HEPARIN SODIUM,PORCINE 5,000 UNITS/ML VIAL SQ SCH ×2 (08:45→21:05)
--- NOTE | 2021-06-09 10:10 | NUR ---
WAS PAGED TO F/U ABNORMAL LAB RESULTS AND CXR AND ABG.
[2021-06-09 10:21] VITALS: BP 105/66
--- NOTE | 2021-06-09 14:05 | NUR ---
DR. BARR WAS PAGED AGAIN TO F/U ABNORMAL BAB RESULTS,CXR AND ABG.
--- NOTE | 2021-06-09 14:09 | NUR ---
FABY Montoya FOR DR. BARR CALLED BACK AND STATED THAT SHE WILL DISCUSS ABNORMAL LAB RESULTS WITH DR. WEBSTER AND SHE WILL CALL BACK.
--- NOTE | 2021-06-09 15:30 | NUR ---
FABY Montoya CALLED BACK AFTER DISCUSSING PT'S CONDITION WITH DR. WEBSTER AND WITH NEW ORDERS CARRIED OUT PERIPHERAL LINE # 22 STARTED ON LEFT HAND AT FIRST ATTEMPT WITH GOOD BLOOD RETURN .PT'S DTROzzie SCHAFFER WAS CALLED AND AWARE OF TX AND IN AGREEMENT.
--- NOTE | 2021-06-09 17:25 | NUR ---
SPUTUM SAMPLE FOR C&S COLLECTED.
--- NOTE | 2021-06-09 17:27 | NUR ---
RT AWARE TO ASSESS FOR NEED OF BREATHING TX D/T ON AND OFF EPISODE OF BRONCHOSPASM.CLOSED MONITORING.
[2021-06-09] MEDS: MEROPENEM 1 G in IV NORMAL SALINE 100 ML IV SCH (18:09)
--- NOTE | 2021-06-09 19:06 | NUR ---
NO A/R TO IV MEROPENEM.
[2021-06-09 20:00] VITALS: BP 115/62
[2021-06-09] MEDS: hydrALAZINE HCL 25 MG TABLET GT SCH (21:00)
[2021-06-09] MEDS: ATORVASTATIN 40 MG TABLET GT SCH (21:04)
[2021-06-09] MEDS: THIAMINE HCL 100 MG TABLET GT SCH (21:04)
[2021-06-09] MEDS: MINERAL OIL/PETROLAT OPHT OINT 3.5 GM TUBE EACHEYE SCH (21:04)
[2021-06-09] MEDS: ASCORBIC ACID 500 MG TABLET GT SCH (21:04)
--- NOTE | 2021-06-09 23:11 | NUR ---
Patient is on Merrem IV for Pneumonia, no adverse reactions noted. Fluids given as ordered, HOB elevated, on aspiration precaution. suctioned with moderate yellow secretions, suctioned as needed, kept clean and comfortable. Addendum: 06/09/21 at 2317 by ISRRAEL ESTEVES RN Noted with episodes of bronchospasms, breathing treatment given as ordered, medication given as ordered, will continue monitoring.
[2021-06-10] MEDS: BLOOD SUGAR DIAGNOSTIC 1 EACH STRIP VI SCH ×5 (00:10→23:45)
[2021-06-10] MEDS: INSULIN REGULAR, HUMAN 300 UNIT/3 ML VIAL SQ PRN ×5 (00:12→23:47)
[2021-06-10] MEDS: IPRATROPIUM BROMIDE 0.5 MG/2.5 ML NEBU NEB SCH ×4 (00:31→18:55)
[2021-06-10] MEDS: LEVALBUTEROL HCL 1.25 MG/0.5 ML NEB NEB SCH ×4 (00:31→18:55)
[2021-06-10] MEDS: GLUCERNA 1.2 1000ML LIQUID GT PRN ×2 (01:38→18:16)
[2021-06-10] MEDS: MEROPENEM 1 G in IV NORMAL SALINE 100 ML IV SCH ×3 (02:00→18:37)
[2021-06-10] MEDS: HYDROCODONE/APAP 5-325MG TABLET GT PRN (03:00)
[2021-06-10] MEDS: ARGININE/GLUTAMINE/CALCIUM BMB 1 EACH POWD.PACK GT SCH ×2 (05:26→18:07)
[2021-06-10 07:50] VITALS: BP 132/78
[2021-06-10] MEDS: BACLOFEN 10 MG TABLET GT SCH ×2 (09:17→20:28)
[2021-06-10] MEDS: ACETAMINOPHEN 650 MG/20 ML UDC- SA PATIENTS-PAIN ONLY GT SCH ×2 (09:17→20:41)
[2021-06-10] MEDS: AMANTADINE HCL 50 MG/5 ML GT SCH ×2 (09:17→20:29)
[2021-06-10] MEDS: levETIRAcetam 500 MG/5 ML LIQUID UDC GT SCH ×2 (09:17→20:27)
[2021-06-10] MEDS: METOPROLOL TARTRATE 25 MG TABLET GT SCH ×2 (09:17→20:28)
[2021-06-10] MEDS: TERAZOSIN 1 MG CAPSULE GT SCH (09:17)
[2021-06-10] MEDS: FAMOTIDINE 20 MG TABLET GT SCH ×2 (09:17→20:28)
[2021-06-10] MEDS: PHENOBARBITAL 97.2 MG TABLET GT SCH ×2 (09:17→20:28)
[2021-06-10] MEDS: HEPARIN SODIUM,PORCINE 5,000 UNITS/ML VIAL SQ SCH ×2 (09:18→20:33)
[2021-06-10] MEDS: SODIUM HYPOCHLORITE 0.125% (QUARTER STRENGTH) 473 ML BOTTLE TP SCH ×2 (09:18→20:33)
[2021-06-10] MEDS: COD LIVER OIL/ZINC OXIDE OINT 113 GM TUBE TOP SCH ×2 (09:18→20:33)
[2021-06-10] MEDS: VITAMINS A AND D OINT TP SCH ×2 (09:18→20:34)
[2021-06-10] MEDS: TRIAMCINOLONE ACET 0.1% CREAM 15 GM TUBE TP SCH ×2 (09:18→20:33)
[2021-06-10] MEDS: NYSTATIN CREAM 30 GM TUBE TP SCH ×2 (09:18→20:34)
[2021-06-10] MEDS: HYDROGEN PEROXIDE 3% 118 ML BOTTLE TP SCH ×2 (09:57→20:58)
[2021-06-10 20:14] VITALS: BP 134/75
[2021-06-10] MEDS: MINERAL OIL/PETROLAT OPHT OINT 3.5 GM TUBE EACHEYE SCH (20:26)
[2021-06-10] MEDS: hydrALAZINE HCL 25 MG TABLET GT SCH (20:27)
[2021-06-10] MEDS: ATORVASTATIN 40 MG TABLET GT SCH (20:28)
[2021-06-10] MEDS: THIAMINE HCL 100 MG TABLET GT SCH (20:29)
[2021-06-10] MEDS: ASCORBIC ACID 500 MG TABLET GT SCH (20:29)
[2021-06-11] MEDS: IPRATROPIUM BROMIDE 0.5 MG/2.5 ML NEBU NEB SCH ×4 (01:02→18:56)
[2021-06-11] MEDS: LEVALBUTEROL HCL 1.25 MG/0.5 ML NEB NEB SCH ×4 (01:02→18:56)
[2021-06-11] MEDS: MEROPENEM 1 G in IV NORMAL SALINE 100 ML IV SCH ×3 (02:00→09:33)
[2021-06-11] MEDS: LORAZEPAM 1 MG TABLET GT PRN (04:10)
[2021-06-11] MEDS: ARGININE/GLUTAMINE/CALCIUM BMB 1 EACH POWD.PACK GT SCH ×2 (05:00→17:10)
[2021-06-11] MEDS: HYDROCODONE/APAP 5-325MG TABLET GT PRN ×2 (05:01→11:41)
[2021-06-11] MEDS: BLOOD SUGAR DIAGNOSTIC 1 EACH STRIP VI SCH ×3 (05:01→17:10)
[2021-06-11] MEDS: INSULIN REGULAR, HUMAN 300 UNIT/3 ML VIAL SQ PRN ×2 (05:02→12:07)
[2021-06-11] MEDS: HYDROGEN PEROXIDE 3% 118 ML BOTTLE TP SCH ×2 (07:30→21:07)
[2021-06-11 08:28] VITALS: BP 127/73
[2021-06-11] MEDS: ACETAMINOPHEN 650 MG/20 ML UDC- SA PATIENTS-PAIN ONLY GT SCH ×2 (09:18→20:25)
[2021-06-11] MEDS: TERAZOSIN 1 MG CAPSULE GT SCH (09:19)
[2021-06-11] MEDS: levETIRAcetam 500 MG/5 ML LIQUID UDC GT SCH ×2 (09:19→20:26)
[2021-06-11] MEDS: BACLOFEN 10 MG TABLET GT SCH ×2 (09:19→20:27)
[2021-06-11] MEDS: METOPROLOL TARTRATE 25 MG TABLET GT SCH ×2 (09:20→20:28)
[2021-06-11] MEDS: COD LIVER OIL/ZINC OXIDE OINT 113 GM TUBE TOP SCH ×2 (09:20→20:29)
[2021-06-11] MEDS: NYSTATIN CREAM 30 GM TUBE TP SCH ×2 (09:20→20:33)
[2021-06-11] MEDS: PHENOBARBITAL 97.2 MG TABLET GT SCH ×2 (09:20→20:28)
[2021-06-11] MEDS: TRIAMCINOLONE ACET 0.1% CREAM 15 GM TUBE TP SCH ×2 (09:20→20:33)
[2021-06-11] MEDS: FAMOTIDINE 20 MG TABLET GT SCH ×2 (09:20→20:28)
[2021-06-11] MEDS: VITAMINS A AND D OINT TP SCH ×2 (09:20→20:33)
[2021-06-11] MEDS: SODIUM HYPOCHLORITE 0.125% (QUARTER STRENGTH) 473 ML BOTTLE TP SCH ×2 (09:20→20:30)
[2021-06-11] MEDS: AMANTADINE HCL 50 MG/5 ML GT SCH ×2 (09:20→20:29)
[2021-06-11] MEDS: HEPARIN SODIUM,PORCINE 5,000 UNITS/ML VIAL SQ SCH ×2 (09:21→21:52)
[2021-06-11 12:11] VITALS: BP 129/70
[2021-06-11] MEDS: LEVALBUTEROL HCL 1.25 MG/0.5 ML NEB NEB PRN (17:58)
[2021-06-11] MEDS: IPRATROPIUM BROMIDE 0.5 MG/2.5 ML NEBU NEB PRN (17:58)
--- NOTE | 2021-06-11 18:00 | NUR ---
MERREM IVPB 1G WAS GIVEN AT THIS TIME OVER 3 HRS ORDERED AND WITHOUT A/R.
[2021-06-11 18:18] VITALS: BP 132/76
[2021-06-11 19:58] VITALS: BP 137/78
[2021-06-11] MEDS: MINERAL OIL/PETROLAT OPHT OINT 3.5 GM TUBE EACHEYE SCH (20:25)
[2021-06-11] MEDS: hydrALAZINE HCL 25 MG TABLET GT SCH (20:26)
[2021-06-11] MEDS: ATORVASTATIN 40 MG TABLET GT SCH (20:27)
[2021-06-11] MEDS: THIAMINE HCL 100 MG TABLET GT SCH (20:29)
[2021-06-11] MEDS: ASCORBIC ACID 500 MG TABLET GT SCH (20:29)
[2021-06-11] MEDS: GLUCERNA 1.2 1000ML LIQUID GT PRN (21:53)
--- NOTE | 2021-06-11 22:05 | NUR ---
Patient is still on Merrem IV for Pneumonia, no adverse reactions noted, Afebrile. Patient is sleeping at this time no bronchospasms noted at this time , HOB elevated, On aspiration precaution, suctioned with yellow secretions, no distress noted, kept patient clean and comfortable, will continue monitor.
[2021-06-12] MEDS: BLOOD SUGAR DIAGNOSTIC 1 EACH STRIP VI SCH ×4 (00:41→17:52)
[2021-06-12] MEDS: LEVALBUTEROL HCL 1.25 MG/0.5 ML NEB NEB SCH ×4 (01:01→19:17)
[2021-06-12] MEDS: IPRATROPIUM BROMIDE 0.5 MG/2.5 ML NEBU NEB SCH ×4 (01:01→19:17)
[2021-06-12] MEDS: MEROPENEM 1 G in IV NORMAL SALINE 100 ML IV SCH ×3 (02:00→17:14)
[2021-06-12] MEDS: HYDROCODONE/APAP 5-325MG TABLET GT PRN (04:56)
[2021-06-12] MEDS: ARGININE/GLUTAMINE/CALCIUM BMB 1 EACH POWD.PACK GT SCH ×2 (05:12→17:52)
[2021-06-12] MEDS: INSULIN REGULAR, HUMAN 300 UNIT/3 ML VIAL SQ PRN ×3 (05:14→17:53)
[2021-06-12] MEDS: LORAZEPAM 1 MG TABLET GT PRN ×3 (05:47→20:45)
[2021-06-12 07:29] VITALS: BP 157/87
[2021-06-12] MEDS: ACETAMINOPHEN 650 MG/20 ML UDC- SA PATIENTS-PAIN ONLY GT SCH ×2 (08:09→20:43)
[2021-06-12] MEDS: BACLOFEN 10 MG TABLET GT SCH ×2 (08:10→20:43)
[2021-06-12] MEDS: TERAZOSIN 1 MG CAPSULE GT SCH (08:10)
[2021-06-12] MEDS: levETIRAcetam 500 MG/5 ML LIQUID UDC GT SCH ×2 (08:10→20:43)
[2021-06-12] MEDS: FAMOTIDINE 20 MG TABLET GT SCH ×2 (08:11→20:43)
[2021-06-12] MEDS: AMANTADINE HCL 50 MG/5 ML GT SCH ×2 (08:11→20:43)
[2021-06-12] MEDS: PHENOBARBITAL 97.2 MG TABLET GT SCH ×2 (08:11→20:43)
[2021-06-12] MEDS: METOPROLOL TARTRATE 25 MG TABLET GT SCH ×2 (08:11→21:00)
[2021-06-12] MEDS: HEPARIN SODIUM,PORCINE 5,000 UNITS/ML VIAL SQ SCH ×2 (08:18→21:30)
[2021-06-12] MEDS: VITAMINS A AND D OINT TP SCH ×2 (08:20→20:44)
[2021-06-12] MEDS: COD LIVER OIL/ZINC OXIDE OINT 113 GM TUBE TOP SCH ×2 (08:20→20:43)
[2021-06-12] MEDS: NYSTATIN CREAM 30 GM TUBE TP SCH ×2 (08:20→20:44)
[2021-06-12] MEDS: TRIAMCINOLONE ACET 0.1% CREAM 15 GM TUBE TP SCH ×2 (08:20→20:43)
[2021-06-12] MEDS: SODIUM HYPOCHLORITE 0.125% (QUARTER STRENGTH) 473 ML BOTTLE TP SCH ×2 (08:20→20:43)
[2021-06-12] MEDS: HYDROGEN PEROXIDE 3% 118 ML BOTTLE TP SCH ×2 (09:32→21:28)
[2021-06-12] MEDS: IPRATROPIUM BROMIDE 0.5 MG/2.5 ML NEBU NEB PRN (11:30)
[2021-06-12] MEDS: LEVALBUTEROL HCL 1.25 MG/0.5 ML NEB NEB PRN (11:30)
[2021-06-12 12:10] VITALS: BP 145/78
[2021-06-12] MEDS: GLUCERNA 1.2 1000ML LIQUID GT PRN (15:19)
--- NOTE | 2021-06-12 16:05 | NUR ---
SPUTUM C&S FINAL RESULT SHOWING PSEUDOMONAS AND SENSITIVE TO MEROPENEM AND PT. CURRENTLY ON IT.
--- NOTE | 2021-06-12 16:06 | NUR ---
PT. HAD PERIPHERAL LINE CHANGED TO LEFT F/A # 22 AT 2ND ATTEMPT D/T POOR VENOUS ACCESS AND WITH GOOD BLOOD RETURN.
[2021-06-12 18:22] VITALS: BP 147/89
[2021-06-12 20:00] VITALS: BP 125/74
[2021-06-12] MEDS: ASCORBIC ACID 500 MG TABLET GT SCH (20:43)
[2021-06-12] MEDS: MINERAL OIL/PETROLAT OPHT OINT 3.5 GM TUBE EACHEYE SCH (20:43)
[2021-06-12] MEDS: ATORVASTATIN 40 MG TABLET GT SCH (20:43)
[2021-06-12] MEDS: THIAMINE HCL 100 MG TABLET GT SCH (20:43)
[2021-06-12] MEDS: hydrALAZINE HCL 25 MG TABLET GT SCH (21:00)
[2021-06-13] MEDS: IPRATROPIUM BROMIDE 0.5 MG/2.5 ML NEBU NEB SCH ×4 (01:41→19:53)
[2021-06-13] MEDS: LEVALBUTEROL HCL 1.25 MG/0.5 ML NEB NEB SCH ×4 (01:41→19:53)
[2021-06-13] MEDS: MEROPENEM 1 G in IV NORMAL SALINE 100 ML IV SCH ×2 (01:55→09:47)
[2021-06-13] MEDS: INSULIN REGULAR, HUMAN 300 UNIT/3 ML VIAL SQ PRN ×2 (02:06→12:15)
--- NOTE | 2021-06-13 02:30 | NUR ---
Patient is still on Merrem IV for Pneumonia, IV site on left forearm patent, no infiltration noted, no adverse reaction noted, remain afebrile, patient is sleeping,at this time, kept head of bed elevated on aspiration precaution,no distress noted, kept patient clean and comfortable. Will continue monitoring.
[2021-06-13] MEDS: HYDROCODONE/APAP 5-325MG TABLET GT PRN ×2 (04:24→12:16)
[2021-06-13] MEDS: ARGININE/GLUTAMINE/CALCIUM BMB 1 EACH POWD.PACK GT SCH ×2 (05:11→17:07)
[2021-06-13] MEDS: BLOOD SUGAR DIAGNOSTIC 1 EACH STRIP VI SCH ×4 (05:12→17:08)
[2021-06-13] MEDS: LORAZEPAM 1 MG TABLET GT PRN (06:19)
[2021-06-13 07:26] VITALS: BP 130/76
[2021-06-13] MEDS: HYDROGEN PEROXIDE 3% 118 ML BOTTLE TP SCH ×2 (08:56→21:00)
[2021-06-13] MEDS: ACETAMINOPHEN 650 MG/20 ML UDC- SA PATIENTS-PAIN ONLY GT SCH ×2 (09:30→20:20)
[2021-06-13] MEDS: levETIRAcetam 500 MG/5 ML LIQUID UDC GT SCH ×2 (09:40→20:23)
[2021-06-13] MEDS: BACLOFEN 10 MG TABLET GT SCH ×2 (09:40→20:23)
[2021-06-13] MEDS: TERAZOSIN 1 MG CAPSULE GT SCH (09:40)
[2021-06-13] MEDS: FAMOTIDINE 20 MG TABLET GT SCH ×2 (09:41→20:24)
[2021-06-13] MEDS: NYSTATIN CREAM 30 GM TUBE TP SCH ×2 (09:41→20:25)
[2021-06-13] MEDS: METOPROLOL TARTRATE 25 MG TABLET GT SCH ×2 (09:41→20:24)
[2021-06-13] MEDS: HEPARIN SODIUM,PORCINE 5,000 UNITS/ML VIAL SQ SCH ×2 (09:41→20:28)
[2021-06-13] MEDS: PHENOBARBITAL 97.2 MG TABLET GT SCH ×2 (09:41→20:24)
[2021-06-13] MEDS: TRIAMCINOLONE ACET 0.1% CREAM 15 GM TUBE TP SCH ×2 (09:41→20:25)
[2021-06-13] MEDS: SODIUM HYPOCHLORITE 0.125% (QUARTER STRENGTH) 473 ML BOTTLE TP SCH ×2 (09:41→20:25)
[2021-06-13] MEDS: AMANTADINE HCL 50 MG/5 ML GT SCH ×2 (09:41→20:24)
[2021-06-13] MEDS: COD LIVER OIL/ZINC OXIDE OINT 113 GM TUBE TOP SCH ×2 (09:41→20:25)
[2021-06-13] MEDS: VITAMINS A AND D OINT TP SCH ×2 (09:42→20:25)
[2021-06-13 12:30] VITALS: BP 138/79
--- NOTE | 2021-06-13 15:41 | NUR ---
NEW ORDER CARRIED OUT FROM FABY MOREIRA [facility] REQUESTED SINCE SPUTUM C&S SHOWS PSEUDOMONAS THAT ARE PANSENSITIVE MEROPENEM NEEDS TO DE -ESCALATE TO PREVENT RESISTANCE.PHARMACY WILL DOSE AND FABY MOREIRA AWARE THAT BUN IS 28 AND CREATININE 0.5.
[2021-06-13] MEDS: GLUCERNA 1.2 1000ML LIQUID GT PRN (17:08)
[2021-06-13 19:45] VITALS: BP 139/84
[2021-06-13] MEDS: MINERAL OIL/PETROLAT OPHT OINT 3.5 GM TUBE EACHEYE SCH (20:22)
[2021-06-13] MEDS: ATORVASTATIN 40 MG TABLET GT SCH (20:23)
[2021-06-13] MEDS: hydrALAZINE HCL 25 MG TABLET GT SCH (20:23)
[2021-06-13] MEDS: ASCORBIC ACID 500 MG TABLET GT SCH (20:24)
[2021-06-13] MEDS: THIAMINE HCL 100 MG TABLET GT SCH (20:24)
[2021-06-13] MEDS ORDERED: TOBRAMYCIN SULFATE 80 MG/2 ML VIAL ONE (20:46)
--- NOTE | 2021-06-13 22:00 | NUR ---
BUN, CR in am as ordered noted. Patient is stared on tobramycin 160 mg IV q8hrs for pseudomonas in sputum X7 days. IV site on LFA patent no infiltration noted no adverse reaction noted, remain afebrile. Kept head of bed elevated for aspiration precaution, no distress noted. kept patient clean and comfortable. Will continue monitoring.
[2021-06-13] MEDS: TOBRAMYCIN SULFATE 160 MG in IV DEXTROSE 5% 100 ML IV SCH (22:27)
[2021-06-14] MEDS: BLOOD SUGAR DIAGNOSTIC 1 EACH STRIP VI SCH ×5 (00:03→23:27)
[2021-06-14] MEDS: INSULIN REGULAR, HUMAN 300 UNIT/3 ML VIAL SQ PRN ×3 (00:12→23:28)
[2021-06-14] MEDS: LEVALBUTEROL HCL 1.25 MG/0.5 ML NEB NEB SCH ×4 (00:58→18:43)
[2021-06-14] MEDS: IPRATROPIUM BROMIDE 0.5 MG/2.5 ML NEBU NEB SCH ×4 (00:58→18:43)
[2021-06-14] MEDS: HYDROCODONE/APAP 5-325MG TABLET GT PRN ×2 (04:11→18:10)
[2021-06-14] MEDS: ARGININE/GLUTAMINE/CALCIUM BMB 1 EACH POWD.PACK GT SCH ×2 (05:16→17:01)
[2021-06-14] MEDS: LORAZEPAM 1 MG TABLET GT PRN ×2 (05:39→17:55)
[2021-06-14] MEDS: TOBRAMYCIN SULFATE 160 MG in IV DEXTROSE 5% 100 ML IV SCH ×2 (05:58→14:08)
[2021-06-14 07:01] LABS: CREATININE 0.4 mg/dL (0.6-1.3); PHENOBARBITAL 23.8 ug/mL (15.0-39.0); UREA NITROGEN, BLOOD 29 mg/dL (7-18)
[2021-06-14 07:22] VITALS: BP 144/90
[2021-06-14] MEDS: HYDROGEN PEROXIDE 3% 118 ML BOTTLE TP SCH ×2 (08:59→20:25)
[2021-06-14] MEDS: ACETAMINOPHEN 650 MG/20 ML UDC- SA PATIENTS-PAIN ONLY GT SCH ×2 (09:00→20:50)
[2021-06-14] MEDS: PHENOBARBITAL 97.2 MG TABLET GT SCH ×2 (09:02→20:53)
[2021-06-14] MEDS: TERAZOSIN 1 MG CAPSULE GT SCH (09:03)
[2021-06-14] MEDS: levETIRAcetam 500 MG/5 ML LIQUID UDC GT SCH ×2 (09:03→20:51)
[2021-06-14] MEDS: AMANTADINE HCL 50 MG/5 ML GT SCH ×2 (09:04→20:53)
[2021-06-14] MEDS: BACLOFEN 10 MG TABLET GT SCH ×2 (09:04→20:52)
[2021-06-14] MEDS: METOPROLOL TARTRATE 25 MG TABLET GT SCH ×2 (09:04→20:52)
[2021-06-14] MEDS: FAMOTIDINE 20 MG TABLET GT SCH ×2 (09:04→20:53)
[2021-06-14] MEDS: HEPARIN SODIUM,PORCINE 5,000 UNITS/ML VIAL SQ SCH ×2 (09:06→20:54)
[2021-06-14] MEDS: VITAMINS A AND D OINT TP SCH ×2 (09:06→20:55)
[2021-06-14] MEDS: COD LIVER OIL/ZINC OXIDE OINT 113 GM TUBE TOP SCH ×2 (09:06→20:54)
[2021-06-14] MEDS: TRIAMCINOLONE ACET 0.1% CREAM 15 GM TUBE TP SCH ×2 (09:55→20:55)
[2021-06-14] MEDS: NYSTATIN CREAM 30 GM TUBE TP SCH ×2 (09:55→20:55)
[2021-06-14] MEDS: SODIUM HYPOCHLORITE 0.125% (QUARTER STRENGTH) 473 ML BOTTLE TP SCH ×2 (09:55→20:55)
[2021-06-14 12:00] VITALS: BP 120/72
[2021-06-14] MEDS: GLUCERNA 1.2 1000ML LIQUID GT PRN (14:10)
--- NOTE | 2021-06-14 15:30 | NUR ---
New orders to decrease Tobramycin to 120 mg Iv every 8 hours at 2200,daily BMP ,and tobramycin peak and trough tonight.
--- NOTE | 2021-06-14 15:47 | NUR ---
INTERDISCIPLINARY PLAN OF CARE CONFERENCE was held today. Patient's daughter Janis was not available to participate in the meeting today. Dr. Peralta and the Interdisciplinary Team reviewed the current plan of care in detail. RN reported on patient's medical condition and current antibiotic treatment. See RN IDT conference notes. Pharmacy discussed current antibiotic treatment. RT and RD reported no major changes for the patient. See all other disciplines IDT notes and physician's progress notes for additional details.
[2021-06-14 18:00] VITALS: BP 131/62
--- NOTE | 2021-06-14 18:10 | NUR ---
Patient with an episode of spasms, Ativan 1 mg given as ordered, [place] 1 tab given for pain. patient reposition and made comfortable.
[2021-06-14 20:07] VITALS: BP 127/81
[2021-06-14] MEDS: MINERAL OIL/PETROLAT OPHT OINT 3.5 GM TUBE EACHEYE SCH (20:51)
[2021-06-14] MEDS: hydrALAZINE HCL 25 MG TABLET GT SCH (20:51)
[2021-06-14] MEDS: ATORVASTATIN 40 MG TABLET GT SCH (20:52)
[2021-06-14] MEDS: THIAMINE HCL 100 MG TABLET GT SCH (20:53)
[2021-06-14] MEDS: ASCORBIC ACID 500 MG TABLET GT SCH (20:54)
[2021-06-14] MEDS: TOBRAMYCIN SULFATE IV SCH (22:00)
[2021-06-14] MEDS: DEXTROSE 5% IV SCH (22:00)
--- NOTE | 2021-06-14 22:00 | NUR ---
Held Tobramycin dose due to elevated trough result: 2.6, Patient is afebrile, no respiratory distress noted. Currently on Tobramycin for Pneumonia, no adverse reactions noted, kept patient clean and comfortable
[2021-06-14 23:28] VITALS: BP 125/71
[2021-06-15] MEDS: IPRATROPIUM BROMIDE 0.5 MG/2.5 ML NEBU NEB SCH ×4 (00:54→18:55)
[2021-06-15] MEDS: LEVALBUTEROL HCL 1.25 MG/0.5 ML NEB NEB SCH ×4 (00:54→18:55)
[2021-06-15] MEDS: HYDROCODONE/APAP 5-325MG TABLET GT PRN ×2 (05:30→18:00)
[2021-06-15] MEDS: BLOOD SUGAR DIAGNOSTIC 1 EACH STRIP VI SCH ×3 (05:47→18:10)
[2021-06-15] MEDS: ARGININE/GLUTAMINE/CALCIUM BMB 1 EACH POWD.PACK GT SCH ×2 (05:47→18:09)
[2021-06-15] MEDS: TOBRAMYCIN SULFATE IV SCH (06:00)
[2021-06-15] MEDS: DEXTROSE 5% IV SCH (06:00)
[2021-06-15] MEDS: LORAZEPAM 1 MG TABLET GT PRN (06:00)
[2021-06-15 06:06] VITALS: BP 134/89
--- NOTE | 2021-06-15 06:50 | NUR ---
This Nurse Spoke with Sharmaine (Pharmacist) and notified her of Tobramycin Trough: 2.6 which is higher than Normal and was advised not to give 0600 dose at this time and wait for new dosing.
[2021-06-15 07:19] LABS: CARBON DIOXIDE 32 mmol/L (21-32); CHLORIDE 101 mmol/L (98-107); CREATININE 0.4 mg/dL (0.6-1.3); GLUCOSE 128 mg/dL (74-106); POTASSIUM 4.9 mmol/L (3.5-5.1); UREA NITROGEN, BLOOD 36 mg/dL (7-18)
[2021-06-15 07:30] VITALS: BP 141/85
[2021-06-15] MEDS: TERAZOSIN 1 MG CAPSULE GT SCH (08:02)
[2021-06-15] MEDS: levETIRAcetam 500 MG/5 ML LIQUID UDC GT SCH ×2 (08:03→21:10)
[2021-06-15] MEDS: BACLOFEN 10 MG TABLET GT SCH ×2 (08:03→21:11)
[2021-06-15] MEDS: METOPROLOL TARTRATE 25 MG TABLET GT SCH ×2 (08:03→21:11)
[2021-06-15] MEDS: FAMOTIDINE 20 MG TABLET GT SCH ×2 (08:04→21:11)
[2021-06-15] MEDS: AMANTADINE HCL 50 MG/5 ML GT SCH ×2 (08:04→21:11)
[2021-06-15] MEDS: PHENOBARBITAL 97.2 MG TABLET GT SCH ×2 (08:04→21:11)
[2021-06-15] MEDS: HEPARIN SODIUM,PORCINE 5,000 UNITS/ML VIAL SQ SCH ×2 (08:05→21:14)
[2021-06-15] MEDS: COD LIVER OIL/ZINC OXIDE OINT 113 GM TUBE TOP SCH ×2 (08:06→21:19)
[2021-06-15] MEDS: ACETAMINOPHEN 650 MG/20 ML UDC- SA PATIENTS-PAIN ONLY GT SCH ×2 (09:00→21:10)
[2021-06-15] MEDS ORDERED: DEXTROSE 5% IV SCH ×2 (09:00→11:00)
[2021-06-15] MEDS ORDERED: TOBRAMYCIN SULFATE IV SCH ×2 (09:00→11:00)
[2021-06-15] MEDS: HYDROGEN PEROXIDE 3% 118 ML BOTTLE TP SCH ×2 (09:04→21:04)
[2021-06-15] MEDS: NYSTATIN CREAM 30 GM TUBE TP SCH ×2 (09:55→21:19)
[2021-06-15] MEDS: SODIUM HYPOCHLORITE 0.125% (QUARTER STRENGTH) 473 ML BOTTLE TP SCH ×2 (09:55→21:19)
[2021-06-15] MEDS: VITAMINS A AND D OINT TP SCH ×2 (09:55→21:19)
[2021-06-15] MEDS: TRIAMCINOLONE ACET 0.1% CREAM 15 GM TUBE TP SCH ×2 (09:55→21:19)
[2021-06-15] MEDS: GLUCERNA 1.2 1000ML LIQUID GT PRN (11:52)
[2021-06-15] MEDS: INSULIN REGULAR, HUMAN 300 UNIT/3 ML VIAL SQ PRN (11:53)
[2021-06-15 12:00] VITALS: BP 139/78
[2021-06-15 18:00] VITALS: BP 142/83
[2021-06-15] MEDS: TOBRAMYCIN SULFATE 80 MG/2 ML VIAL NEB SCH (19:15)
[2021-06-15 20:06] VITALS: BP 135/79
[2021-06-15] MEDS: hydrALAZINE HCL 25 MG TABLET GT SCH (21:10)
[2021-06-15] MEDS: MINERAL OIL/PETROLAT OPHT OINT 3.5 GM TUBE EACHEYE SCH (21:10)
[2021-06-15] MEDS: ATORVASTATIN 40 MG TABLET GT SCH (21:11)
[2021-06-15] MEDS: THIAMINE HCL 100 MG TABLET GT SCH (21:12)
[2021-06-15] MEDS: ASCORBIC ACID 500 MG TABLET GT SCH (21:13)
--- NOTE | 2021-06-15 22:00 | NUR ---
On Tobramycin via HHN for Pseudomonas Pneumonia, no adverse reactions noted, afebrile, No signs of any distress noted, kept clean and comfortable.
[2021-06-16] VITALS: BP 126/75
[2021-06-16] MEDS: LEVALBUTEROL HCL 1.25 MG/0.5 ML NEB NEB SCH ×4 (00:50→19:21)
[2021-06-16] MEDS: IPRATROPIUM BROMIDE 0.5 MG/2.5 ML NEBU NEB SCH ×4 (00:50→19:21)
[2021-06-16] MEDS: HYDROCODONE/APAP 5-325MG TABLET GT PRN (04:00)
[2021-06-16 05:47] VITALS: BP 131/78
[2021-06-16] MEDS: GLUCERNA 1.2 1000ML LIQUID GT PRN (05:48)
[2021-06-16] MEDS: BLOOD SUGAR DIAGNOSTIC 1 EACH STRIP VI SCH ×5 (05:48→23:16)
[2021-06-16] MEDS: ARGININE/GLUTAMINE/CALCIUM BMB 1 EACH POWD.PACK GT SCH ×2 (05:48→17:29)
[2021-06-16 07:43] VITALS: BP 130/101
[2021-06-16] MEDS: TOBRAMYCIN SULFATE 80 MG/2 ML VIAL NEB SCH ×2 (07:50→19:30)
[2021-06-16] MEDS: ACETAMINOPHEN 650 MG/20 ML UDC- SA PATIENTS-PAIN ONLY GT SCH ×2 (08:00→21:00)
[2021-06-16] MEDS: PHENOBARBITAL 97.2 MG TABLET GT SCH ×2 (08:01→21:03)
[2021-06-16] MEDS: BACLOFEN 10 MG TABLET GT SCH ×2 (08:02→21:01)
[2021-06-16] MEDS: FAMOTIDINE 20 MG TABLET GT SCH ×2 (08:03→21:03)
[2021-06-16] MEDS: AMANTADINE HCL 50 MG/5 ML GT SCH ×2 (08:04→21:03)
[2021-06-16] MEDS: levETIRAcetam 500 MG/5 ML LIQUID UDC GT SCH ×2 (08:05→21:00)
[2021-06-16] MEDS: LORAZEPAM 1 MG TABLET GT PRN (08:16)
[2021-06-16] MEDS: HEPARIN SODIUM,PORCINE 5,000 UNITS/ML VIAL SQ SCH ×2 (08:18→21:05)
[2021-06-16] MEDS: HYDROGEN PEROXIDE 3% 118 ML BOTTLE TP SCH ×2 (09:17→21:18)
[2021-06-16] MEDS: VITAMINS A AND D OINT TP SCH ×2 (09:50→21:06)
[2021-06-16] MEDS: METOPROLOL TARTRATE 25 MG TABLET GT SCH ×2 (09:50→21:02)
[2021-06-16] MEDS: TERAZOSIN 1 MG CAPSULE GT SCH (09:50)
[2021-06-16] MEDS: COD LIVER OIL/ZINC OXIDE OINT 113 GM TUBE TOP SCH ×2 (09:50→21:06)
[2021-06-16] MEDS: INSULIN REGULAR, HUMAN 300 UNIT/3 ML VIAL SQ PRN ×4 (12:08→23:19)
[2021-06-16 20:10] VITALS: BP 135/74
[2021-06-16] MEDS: MINERAL OIL/PETROLAT OPHT OINT 3.5 GM TUBE EACHEYE SCH (21:00)
[2021-06-16] MEDS: hydrALAZINE HCL 25 MG TABLET GT SCH (21:00)
[2021-06-16] MEDS: ATORVASTATIN 40 MG TABLET GT SCH (21:02)
[2021-06-16] MEDS: THIAMINE HCL 100 MG TABLET GT SCH (21:03)
[2021-06-16] MEDS: ASCORBIC ACID 500 MG TABLET GT SCH (21:04)
[2021-06-17] VITALS: BP 128/76
[2021-06-17] MEDS: GLUCERNA 1.2 1000ML LIQUID GT PRN ×2 (01:00→17:19)
[2021-06-17] MEDS: IPRATROPIUM BROMIDE 0.5 MG/2.5 ML NEBU NEB SCH ×4 (01:27→19:43)
[2021-06-17] MEDS: LEVALBUTEROL HCL 1.25 MG/0.5 ML NEB NEB SCH ×4 (01:27→19:43)
[2021-06-17] MEDS: HYDROCODONE/APAP 5-325MG TABLET GT PRN (04:30)
[2021-06-17] MEDS: BLOOD SUGAR DIAGNOSTIC 1 EACH STRIP VI SCH ×3 (05:22→17:19)
[2021-06-17] MEDS: ARGININE/GLUTAMINE/CALCIUM BMB 1 EACH POWD.PACK GT SCH ×2 (05:22→17:19)
[2021-06-17] MEDS: INSULIN REGULAR, HUMAN 300 UNIT/3 ML VIAL SQ PRN ×3 (05:23→17:20)
[2021-06-17 05:36] VITALS: BP 136/89
[2021-06-17] MEDS: TOBRAMYCIN SULFATE 80 MG/2 ML VIAL NEB SCH ×2 (07:30→19:43)
[2021-06-17 07:35] VITALS: BP 141/85
[2021-06-17] MEDS: METOPROLOL TARTRATE 25 MG TABLET GT SCH ×2 (08:25→21:03)
[2021-06-17] MEDS: ACETAMINOPHEN 650 MG/20 ML UDC- SA PATIENTS-PAIN ONLY GT SCH ×2 (08:25→21:00)
[2021-06-17] MEDS: levETIRAcetam 500 MG/5 ML LIQUID UDC GT SCH ×2 (08:25→21:02)
[2021-06-17] MEDS: TERAZOSIN 1 MG CAPSULE GT SCH (08:25)
[2021-06-17] MEDS: BACLOFEN 10 MG TABLET GT SCH ×2 (08:26→21:02)
[2021-06-17] MEDS: PHENOBARBITAL 97.2 MG TABLET GT SCH ×2 (08:26→21:03)
[2021-06-17] MEDS: AMANTADINE HCL 50 MG/5 ML GT SCH ×2 (08:26→21:03)
[2021-06-17] MEDS: FAMOTIDINE 20 MG TABLET GT SCH ×2 (08:26→21:03)
[2021-06-17] MEDS: VITAMINS A AND D OINT TP SCH ×2 (08:29→21:03)
[2021-06-17] MEDS: HEPARIN SODIUM,PORCINE 5,000 UNITS/ML VIAL SQ SCH ×2 (08:29→21:00)
[2021-06-17] MEDS: COD LIVER OIL/ZINC OXIDE OINT 113 GM TUBE TOP SCH ×2 (08:29→21:03)
[2021-06-17] MEDS: HYDROGEN PEROXIDE 3% 118 ML BOTTLE TP SCH ×2 (09:06→21:31)
[2021-06-17 12:00] VITALS: BP 138/81
[2021-06-17 18:09] VITALS: BP 146/75
[2021-06-17 20:25] VITALS: BP 134/74
[2021-06-17] MEDS: MINERAL OIL/PETROLAT OPHT OINT 3.5 GM TUBE EACHEYE SCH (21:01)
[2021-06-17] MEDS: hydrALAZINE HCL 25 MG TABLET GT SCH (21:02)
[2021-06-17] MEDS: ATORVASTATIN 40 MG TABLET GT SCH (21:02)
[2021-06-17] MEDS: ASCORBIC ACID 500 MG TABLET GT SCH (21:03)
[2021-06-17] MEDS: THIAMINE HCL 100 MG TABLET GT SCH (21:03)
[2021-06-18] VITALS: BP 135/80
[2021-06-18] MEDS: INSULIN REGULAR, HUMAN 300 UNIT/3 ML VIAL SQ PRN ×3 (00:30→17:11)
[2021-06-18] MEDS: BLOOD SUGAR DIAGNOSTIC 1 EACH STRIP VI SCH ×4 (00:43→17:10)
[2021-06-18] MEDS: LEVALBUTEROL HCL 1.25 MG/0.5 ML NEB NEB SCH ×4 (01:05→19:54)
[2021-06-18] MEDS: IPRATROPIUM BROMIDE 0.5 MG/2.5 ML NEBU NEB SCH ×4 (01:05→19:54)
[2021-06-18] MEDS: ARGININE/GLUTAMINE/CALCIUM BMB 1 EACH POWD.PACK GT SCH ×2 (05:57→17:10)
[2021-06-18 06:00] VITALS: BP 128/49
[2021-06-18] MEDS: LORAZEPAM 1 MG TABLET GT PRN (07:36)
[2021-06-18] MEDS: HYDROCODONE/APAP 5-325MG TABLET GT PRN (07:36)
[2021-06-18] MEDS: TOBRAMYCIN SULFATE 80 MG/2 ML VIAL NEB SCH ×2 (07:42→19:54)
[2021-06-18] MEDS: ACETAMINOPHEN 650 MG/20 ML UDC- SA PATIENTS-PAIN ONLY GT SCH ×2 (08:10→20:30)
[2021-06-18] MEDS: levETIRAcetam 500 MG/5 ML LIQUID UDC GT SCH ×2 (08:11→21:13)
[2021-06-18] MEDS: BACLOFEN 10 MG TABLET GT SCH ×2 (08:11→21:14)
[2021-06-18] MEDS: TERAZOSIN 1 MG CAPSULE GT SCH (08:11)
[2021-06-18 08:12] VITALS: BP 112/61
[2021-06-18] MEDS: PHENOBARBITAL 97.2 MG TABLET GT SCH ×2 (08:12→21:14)
[2021-06-18] MEDS: AMANTADINE HCL 50 MG/5 ML GT SCH ×2 (08:12→21:15)
[2021-06-18] MEDS: FAMOTIDINE 20 MG TABLET GT SCH ×2 (08:12→21:14)
[2021-06-18] MEDS: METOPROLOL TARTRATE 25 MG TABLET GT SCH ×2 (08:12→21:14)
[2021-06-18] MEDS: HEPARIN SODIUM,PORCINE 5,000 UNITS/ML VIAL SQ SCH ×2 (08:17→21:23)
[2021-06-18] MEDS: COD LIVER OIL/ZINC OXIDE OINT 113 GM TUBE TOP SCH ×2 (08:17→21:17)
[2021-06-18] MEDS: VITAMINS A AND D OINT TP SCH ×2 (08:17→21:17)
[2021-06-18] MEDS: HYDROGEN PEROXIDE 3% 118 ML BOTTLE TP SCH ×2 (09:30→21:14)
[2021-06-18 11:56] VITALS: BP 139/91
[2021-06-18 17:15] VITALS: BP 136/82
[2021-06-18 19:58] VITALS: BP 135/72
[2021-06-18] MEDS: MINERAL OIL/PETROLAT OPHT OINT 3.5 GM TUBE EACHEYE SCH (21:12)
[2021-06-18] MEDS: hydrALAZINE HCL 25 MG TABLET GT SCH (21:13)
[2021-06-18] MEDS: ATORVASTATIN 40 MG TABLET GT SCH (21:14)
[2021-06-18] MEDS: THIAMINE HCL 100 MG TABLET GT SCH (21:16)
[2021-06-18] MEDS: ASCORBIC ACID 500 MG TABLET GT SCH (21:16)
[2021-06-18] MEDS: GLUCERNA 1.2 1000ML LIQUID GT PRN (21:24)
[2021-06-19] VITALS (7 sets, daily range): BP systolic 133–151; BP diastolic 76–119
[2021-06-19] MEDS: BLOOD SUGAR DIAGNOSTIC 1 EACH STRIP VI SCH ×4 (00:11→17:43)
[2021-06-19] MEDS: INSULIN REGULAR, HUMAN 300 UNIT/3 ML VIAL SQ PRN ×4 (00:17→17:44)
[2021-06-19] MEDS: LEVALBUTEROL HCL 1.25 MG/0.5 ML NEB NEB SCH ×4 (02:01→19:00)
[2021-06-19] MEDS: IPRATROPIUM BROMIDE 0.5 MG/2.5 ML NEBU NEB SCH ×4 (02:01→19:00)
[2021-06-19] MEDS: ARGININE/GLUTAMINE/CALCIUM BMB 1 EACH POWD.PACK GT SCH ×2 (06:14→17:41)
[2021-06-19] MEDS: TOBRAMYCIN SULFATE 80 MG/2 ML VIAL NEB SCH ×3 (07:30→19:00)
[2021-06-19] MEDS ORDERED: TRIAMCINOLONE ACET 0.1% CREAM 15 GM TUBE TP PRN (07:45)
[2021-06-19] MEDS ORDERED: NYSTATIN CREAM 30 GM TUBE TP PRN (07:45)
[2021-06-19] MEDS ORDERED: SODIUM HYPOCHLORITE 0.125% (QUARTER STRENGTH) 473 ML BOTTLE TP PRN (07:45)
[2021-06-19] MEDS: LORAZEPAM 1 MG TABLET GT PRN (08:10)
[2021-06-19] MEDS: TERAZOSIN 1 MG CAPSULE GT SCH (08:24)
[2021-06-19] MEDS: BACLOFEN 10 MG TABLET GT SCH ×2 (08:24→20:42)
[2021-06-19] MEDS: ACETAMINOPHEN 650 MG/20 ML UDC- SA PATIENTS-PAIN ONLY GT SCH ×2 (08:24→20:33)
[2021-06-19] MEDS: levETIRAcetam 500 MG/5 ML LIQUID UDC GT SCH ×2 (08:24→20:42)
[2021-06-19] MEDS: FAMOTIDINE 20 MG TABLET GT SCH ×2 (08:26→20:42)
[2021-06-19] MEDS: PHENOBARBITAL 97.2 MG TABLET GT SCH ×2 (08:26→20:42)
[2021-06-19] MEDS: METOPROLOL TARTRATE 25 MG TABLET GT SCH ×2 (08:26→20:42)
[2021-06-19] MEDS: AMANTADINE HCL 50 MG/5 ML GT SCH ×2 (08:27→20:42)
[2021-06-19] MEDS: COD LIVER OIL/ZINC OXIDE OINT 113 GM TUBE TOP SCH ×2 (08:28→20:44)
[2021-06-19] MEDS: SODIUM HYPOCHLORITE 0.125% (QUARTER STRENGTH) 473 ML BOTTLE TP SCH ×2 (08:28→20:45)
[2021-06-19] MEDS: NYSTATIN CREAM 30 GM TUBE TP SCH ×2 (08:29→20:45)
[2021-06-19] MEDS: TRIAMCINOLONE ACET 0.1% CREAM 15 GM TUBE TP SCH ×2 (08:29→20:45)
[2021-06-19] MEDS: HYDROGEN PEROXIDE 3% 118 ML BOTTLE TP SCH ×2 (08:29→20:58)
[2021-06-19] MEDS: VITAMINS A AND D OINT TP SCH ×2 (08:30→20:45)
[2021-06-19] MEDS: HEPARIN SODIUM,PORCINE 5,000 UNITS/ML VIAL SQ SCH ×2 (08:32→20:58)
[2021-06-19] MEDS: MINERAL OIL/PETROLAT OPHT OINT 3.5 GM TUBE EACHEYE SCH (20:39)
[2021-06-19] MEDS: hydrALAZINE HCL 25 MG TABLET GT SCH (20:41)
[2021-06-19] MEDS: ATORVASTATIN 40 MG TABLET GT SCH (20:42)
[2021-06-19] MEDS: THIAMINE HCL 100 MG TABLET GT SCH (20:44)
[2021-06-19] MEDS: ASCORBIC ACID 500 MG TABLET GT SCH (20:44)
[2021-06-19] MEDS: HYDROCODONE/APAP 5-325MG TABLET GT PRN (23:16)
[2021-06-20] MEDS: BLOOD SUGAR DIAGNOSTIC 1 EACH STRIP VI SCH ×4 (00:14→17:04)
[2021-06-20] MEDS: INSULIN REGULAR, HUMAN 300 UNIT/3 ML VIAL SQ PRN ×3 (00:19→12:48)
[2021-06-20] MEDS: IPRATROPIUM BROMIDE 0.5 MG/2.5 ML NEBU NEB SCH ×4 (00:50→18:42)
[2021-06-20] MEDS: LEVALBUTEROL HCL 1.25 MG/0.5 ML NEB NEB SCH ×4 (00:50→18:42)
[2021-06-20] MEDS: ARGININE/GLUTAMINE/CALCIUM BMB 1 EACH POWD.PACK GT SCH ×2 (05:07→17:04)
[2021-06-20] MEDS: HYDROCODONE/APAP 5-325MG TABLET GT PRN (05:30)
[2021-06-20] MEDS: TOBRAMYCIN SULFATE 80 MG/2 ML VIAL NEB SCH ×2 (07:30→18:46)
[2021-06-20 07:32] VITALS: BP 112/94
[2021-06-20] MEDS: HYDROGEN PEROXIDE 3% 118 ML BOTTLE TP SCH ×2 (08:06→18:42)
[2021-06-20] MEDS: ACETAMINOPHEN 650 MG/20 ML UDC- SA PATIENTS-PAIN ONLY GT SCH ×2 (08:30→20:30)
[2021-06-20] MEDS: TERAZOSIN 1 MG CAPSULE GT SCH (09:41)
[2021-06-20] MEDS: METOPROLOL TARTRATE 25 MG TABLET GT SCH ×2 (09:41→20:32)
[2021-06-20] MEDS: levETIRAcetam 500 MG/5 ML LIQUID UDC GT SCH ×2 (09:41→20:32)
[2021-06-20] MEDS: BACLOFEN 10 MG TABLET GT SCH ×2 (09:41→20:32)
[2021-06-20] MEDS: NYSTATIN CREAM 30 GM TUBE TP SCH ×2 (09:42→20:34)
[2021-06-20] MEDS: AMANTADINE HCL 50 MG/5 ML GT SCH ×2 (09:42→20:32)
[2021-06-20] MEDS: TRIAMCINOLONE ACET 0.1% CREAM 15 GM TUBE TP SCH ×2 (09:42→20:34)
[2021-06-20] MEDS: VITAMINS A AND D OINT TP SCH ×2 (09:42→20:34)
[2021-06-20] MEDS: COD LIVER OIL/ZINC OXIDE OINT 113 GM TUBE TOP SCH ×2 (09:42→20:33)
[2021-06-20] MEDS: PHENOBARBITAL 97.2 MG TABLET GT SCH ×2 (09:42→20:32)
[2021-06-20] MEDS: SODIUM HYPOCHLORITE 0.125% (QUARTER STRENGTH) 473 ML BOTTLE TP SCH ×2 (09:42→20:33)
[2021-06-20] MEDS: HEPARIN SODIUM,PORCINE 5,000 UNITS/ML VIAL SQ SCH ×2 (09:42→20:56)
[2021-06-20] MEDS: FAMOTIDINE 20 MG TABLET GT SCH ×2 (09:42→20:32)
--- NOTE | 2021-06-20 12:00 | NUR ---
SEEN AND EXAMINED BY FABY Montoya AND WITH NAMO.
[2021-06-20] MEDS: MINERAL OIL/PETROLAT OPHT OINT 3.5 GM TUBE EACHEYE SCH (20:30)
[2021-06-20] MEDS: ATORVASTATIN 40 MG TABLET GT SCH (20:32)
[2021-06-20] MEDS: hydrALAZINE HCL 25 MG TABLET GT SCH (20:32)
[2021-06-20] MEDS: THIAMINE HCL 100 MG TABLET GT SCH (20:32)
[2021-06-20] MEDS: ASCORBIC ACID 500 MG TABLET GT SCH (20:33)
[2021-06-20 20:45] VITALS: BP 113/53
[2021-06-21] MEDS: HYDROCODONE/APAP 5-325MG TABLET GT PRN
[2021-06-21] MEDS: BLOOD SUGAR DIAGNOSTIC 1 EACH STRIP VI SCH ×5 (00:12→23:50)
[2021-06-21] MEDS: IPRATROPIUM BROMIDE 0.5 MG/2.5 ML NEBU NEB SCH ×4 (00:30→19:11)
[2021-06-21] MEDS: LEVALBUTEROL HCL 1.25 MG/0.5 ML NEB NEB SCH ×4 (00:30→19:11)
[2021-06-21] MEDS: GLUCERNA 1.2 1000ML LIQUID GT PRN (04:40)
[2021-06-21] MEDS: ARGININE/GLUTAMINE/CALCIUM BMB 1 EACH POWD.PACK GT SCH ×2 (05:06→17:08)
[2021-06-21] MEDS: INSULIN REGULAR, HUMAN 300 UNIT/3 ML VIAL SQ PRN ×3 (05:14→17:09)
[2021-06-21 07:22] VITALS: BP 138/74
[2021-06-21] MEDS: HEPARIN SODIUM,PORCINE 5,000 UNITS/ML VIAL SQ SCH ×2 (08:54→20:29)
[2021-06-21] MEDS: FAMOTIDINE 20 MG TABLET GT SCH ×2 (08:55→20:26)
[2021-06-21] MEDS: AMANTADINE HCL 50 MG/5 ML GT SCH ×2 (08:55→20:26)
[2021-06-21] MEDS: SODIUM HYPOCHLORITE 0.125% (QUARTER STRENGTH) 473 ML BOTTLE TP SCH ×2 (08:55→21:41)
[2021-06-21] MEDS: TERAZOSIN 1 MG CAPSULE GT SCH (08:55)
[2021-06-21] MEDS: BACLOFEN 10 MG TABLET GT SCH ×2 (08:55→20:26)
[2021-06-21] MEDS: PHENOBARBITAL 97.2 MG TABLET GT SCH ×2 (08:55→20:26)
[2021-06-21] MEDS: levETIRAcetam 500 MG/5 ML LIQUID UDC GT SCH ×2 (08:55→20:26)
[2021-06-21] MEDS: COD LIVER OIL/ZINC OXIDE OINT 113 GM TUBE TOP SCH ×2 (08:55→20:27)
[2021-06-21] MEDS: ACETAMINOPHEN 650 MG/20 ML UDC- SA PATIENTS-PAIN ONLY GT SCH ×2 (08:55→20:26)
[2021-06-21] MEDS: METOPROLOL TARTRATE 25 MG TABLET GT SCH ×2 (08:55→20:32)
[2021-06-21] MEDS: NYSTATIN CREAM 30 GM TUBE TP SCH ×2 (08:56→21:41)
[2021-06-21] MEDS: TRIAMCINOLONE ACET 0.1% CREAM 15 GM TUBE TP SCH ×2 (08:56→21:41)
[2021-06-21] MEDS: VITAMINS A AND D OINT TP SCH ×2 (08:56→20:27)
[2021-06-21] MEDS: HYDROGEN PEROXIDE 3% 118 ML BOTTLE TP SCH ×2 (09:55→19:11)
[2021-06-21] MEDS: ONDANSETRON HCL 4 MG TABLET GT PRN (11:40)
[2021-06-21] MEDS: LORAZEPAM 1 MG TABLET GT PRN ×2 (13:24→20:00)
[2021-06-21] MEDS: THIAMINE HCL 100 MG TABLET GT SCH (20:26)
[2021-06-21] MEDS: MINERAL OIL/PETROLAT OPHT OINT 3.5 GM TUBE EACHEYE SCH (20:26)
[2021-06-21] MEDS: ATORVASTATIN 40 MG TABLET GT SCH (20:26)
[2021-06-21] MEDS: ASCORBIC ACID 500 MG TABLET GT SCH (20:26)
[2021-06-21] MEDS: hydrALAZINE HCL 25 MG TABLET GT SCH (20:33)
[2021-06-21 20:44] VITALS: BP 129/75
[2021-06-22] MEDS: IPRATROPIUM BROMIDE 0.5 MG/2.5 ML NEBU NEB SCH ×4 (00:30→19:40)
[2021-06-22] MEDS: LEVALBUTEROL HCL 1.25 MG/0.5 ML NEB NEB SCH ×4 (00:30→19:40)
[2021-06-22] MEDS: INSULIN REGULAR, HUMAN 300 UNIT/3 ML VIAL SQ PRN ×4 (00:38→23:49)
[2021-06-22] MEDS: GLUCERNA 1.2 1000ML LIQUID GT PRN (03:17)
[2021-06-22] MEDS: BLOOD SUGAR DIAGNOSTIC 1 EACH STRIP VI SCH ×4 (05:07→23:48)
[2021-06-22] MEDS: ARGININE/GLUTAMINE/CALCIUM BMB 1 EACH POWD.PACK GT SCH ×2 (05:07→18:15)
[2021-06-22 07:38] VITALS: BP 115/82
[2021-06-22] MEDS: ACETAMINOPHEN 650 MG/20 ML UDC- SA PATIENTS-PAIN ONLY GT SCH ×2 (08:30→20:43)
[2021-06-22] MEDS: NYSTATIN CREAM 30 GM TUBE TP SCH ×2 (09:00→21:48)
[2021-06-22] MEDS: HEPARIN SODIUM,PORCINE 5,000 UNITS/ML VIAL SQ SCH ×2 (09:00→21:04)
[2021-06-22] MEDS: VITAMINS A AND D OINT TP SCH ×2 (09:00→21:48)
[2021-06-22] MEDS: TRIAMCINOLONE ACET 0.1% CREAM 15 GM TUBE TP SCH ×2 (09:00→21:48)
[2021-06-22] MEDS: HYDROGEN PEROXIDE 3% 118 ML BOTTLE TP SCH ×2 (09:24→21:37)
[2021-06-22] MEDS: levETIRAcetam 500 MG/5 ML LIQUID UDC GT SCH ×2 (09:55→20:44)
[2021-06-22] MEDS: TERAZOSIN 1 MG CAPSULE GT SCH (09:55)
[2021-06-22] MEDS: BACLOFEN 10 MG TABLET GT SCH ×2 (09:56→20:44)
[2021-06-22] MEDS: FAMOTIDINE 20 MG TABLET GT SCH ×2 (09:57→20:45)
[2021-06-22] MEDS: METOPROLOL TARTRATE 25 MG TABLET GT SCH ×2 (09:57→20:44)
[2021-06-22] MEDS: PHENOBARBITAL 97.2 MG TABLET GT SCH ×2 (09:57→20:45)
[2021-06-22] MEDS: COD LIVER OIL/ZINC OXIDE OINT 113 GM TUBE TOP SCH ×2 (09:59→21:47)
[2021-06-22] MEDS: AMANTADINE HCL 50 MG/5 ML GT SCH ×2 (09:59→20:45)
[2021-06-22] MEDS: SODIUM HYPOCHLORITE 0.125% (QUARTER STRENGTH) 473 ML BOTTLE TP SCH ×2 (10:00→21:48)
[2021-06-22 20:00] VITALS: BP 129/79
[2021-06-22] MEDS: MINERAL OIL/PETROLAT OPHT OINT 3.5 GM TUBE EACHEYE SCH (20:43)
[2021-06-22] MEDS: ATORVASTATIN 40 MG TABLET GT SCH (20:44)
[2021-06-22] MEDS: hydrALAZINE HCL 25 MG TABLET GT SCH (20:44)
[2021-06-22] MEDS: ASCORBIC ACID 500 MG TABLET GT SCH (20:45)
[2021-06-22] MEDS: THIAMINE HCL 100 MG TABLET GT SCH (20:45)
[2021-06-22] MEDS: LORAZEPAM 1 MG TABLET GT PRN (22:20)
[2021-06-22] MEDS: HYDROCODONE/APAP 5-325MG TABLET GT PRN (23:31)
[2021-06-23] MEDS: IPRATROPIUM BROMIDE 0.5 MG/2.5 ML NEBU NEB SCH ×4 (01:00→19:30)
[2021-06-23] MEDS: LEVALBUTEROL HCL 1.25 MG/0.5 ML NEB NEB SCH ×4 (01:00→19:30)
[2021-06-23] MEDS: ARGININE/GLUTAMINE/CALCIUM BMB 1 EACH POWD.PACK GT SCH ×2 (05:10→17:57)
[2021-06-23] MEDS: BLOOD SUGAR DIAGNOSTIC 1 EACH STRIP VI SCH ×4 (05:47→23:03)
[2021-06-23] MEDS: GLUCERNA 1.2 1000ML LIQUID GT PRN (06:10)
[2021-06-23] MEDS: ACETAMINOPHEN 650 MG/20 ML UDC- SA PATIENTS-PAIN ONLY GT SCH ×2 (08:55→20:14)
[2021-06-23] MEDS: levETIRAcetam 500 MG/5 ML LIQUID UDC GT SCH ×2 (09:02→20:39)
[2021-06-23] MEDS: SODIUM HYPOCHLORITE 0.125% (QUARTER STRENGTH) 473 ML BOTTLE TP SCH ×2 (09:02→20:40)
[2021-06-23] MEDS: FAMOTIDINE 20 MG TABLET GT SCH ×2 (09:02→20:40)
[2021-06-23] MEDS: METOPROLOL TARTRATE 25 MG TABLET GT SCH ×2 (09:02→20:40)
[2021-06-23] MEDS: TERAZOSIN 1 MG CAPSULE GT SCH (09:02)
[2021-06-23] MEDS: AMANTADINE HCL 50 MG/5 ML GT SCH ×2 (09:02→20:40)
[2021-06-23] MEDS: COD LIVER OIL/ZINC OXIDE OINT 113 GM TUBE TOP SCH ×2 (09:02→20:40)
[2021-06-23] MEDS: BACLOFEN 10 MG TABLET GT SCH ×2 (09:02→20:39)
[2021-06-23] MEDS: PHENOBARBITAL 97.2 MG TABLET GT SCH ×2 (09:02→20:40)
[2021-06-23] MEDS: NYSTATIN CREAM 30 GM TUBE TP SCH ×2 (09:03→20:40)
[2021-06-23] MEDS: VITAMINS A AND D OINT TP SCH ×2 (09:03→20:40)
[2021-06-23] MEDS: TRIAMCINOLONE ACET 0.1% CREAM 15 GM TUBE TP SCH ×2 (09:03→20:40)
[2021-06-23] MEDS: HYDROGEN PEROXIDE 3% 118 ML BOTTLE TP SCH ×2 (09:06→21:11)
[2021-06-23] MEDS: HEPARIN SODIUM,PORCINE 5,000 UNITS/ML VIAL SQ SCH ×2 (09:09→20:20)
[2021-06-23] MEDS: INSULIN REGULAR, HUMAN 300 UNIT/3 ML VIAL SQ PRN ×3 (12:36→23:11)
[2021-06-23] MEDS: LORAZEPAM 1 MG TABLET GT PRN (20:14)
[2021-06-23 20:39] VITALS: BP 131/79
[2021-06-23] MEDS: hydrALAZINE HCL 25 MG TABLET GT SCH (20:39)
[2021-06-23] MEDS: MINERAL OIL/PETROLAT OPHT OINT 3.5 GM TUBE EACHEYE SCH (20:39)
[2021-06-23] MEDS: ATORVASTATIN 40 MG TABLET GT SCH (20:39)
[2021-06-23] MEDS: ASCORBIC ACID 500 MG TABLET GT SCH (20:40)
[2021-06-23] MEDS: THIAMINE HCL 100 MG TABLET GT SCH (20:40)
[2021-06-23 23:16] VITALS: BP 138/84
[2021-06-24] MEDS: LEVALBUTEROL HCL 1.25 MG/0.5 ML NEB NEB SCH ×4 (01:06→19:01)
[2021-06-24] MEDS: IPRATROPIUM BROMIDE 0.5 MG/2.5 ML NEBU NEB SCH ×4 (01:06→19:01)
[2021-06-24] MEDS: GLUCERNA 1.2 1000ML LIQUID GT PRN ×2 (01:45→18:13)
[2021-06-24] MEDS: LORAZEPAM 1 MG TABLET GT PRN ×3 (04:00→18:45)
[2021-06-24] MEDS: HYDROCODONE/APAP 5-325MG TABLET GT PRN ×2 (04:55→18:13)
[2021-06-24] MEDS: ARGININE/GLUTAMINE/CALCIUM BMB 1 EACH POWD.PACK GT SCH ×2 (05:49→18:12)
[2021-06-24] MEDS: BLOOD SUGAR DIAGNOSTIC 1 EACH STRIP VI SCH ×4 (05:49→23:16)
[2021-06-24] MEDS: INSULIN REGULAR, HUMAN 300 UNIT/3 ML VIAL SQ PRN ×3 (05:50→23:23)
[2021-06-24 06:53] VITALS: BP 140/89
[2021-06-24] MEDS: HYDROGEN PEROXIDE 3% 118 ML BOTTLE TP SCH ×2 (07:30→21:04)
[2021-06-24 07:38] VITALS: BP 145/70
[2021-06-24] MEDS: TERAZOSIN 1 MG CAPSULE GT SCH (08:57)
[2021-06-24] MEDS: ACETAMINOPHEN 650 MG/20 ML UDC- SA PATIENTS-PAIN ONLY GT SCH ×2 (08:57→20:41)
[2021-06-24] MEDS: levETIRAcetam 500 MG/5 ML LIQUID UDC GT SCH ×2 (08:59→20:43)
[2021-06-24] MEDS: FAMOTIDINE 20 MG TABLET GT SCH ×2 (08:59→20:43)
[2021-06-24] MEDS: BACLOFEN 10 MG TABLET GT SCH ×2 (08:59→20:43)
[2021-06-24] MEDS: METOPROLOL TARTRATE 25 MG TABLET GT SCH ×2 (08:59→20:43)
[2021-06-24] MEDS: PHENOBARBITAL 97.2 MG TABLET GT SCH ×2 (08:59→20:43)
[2021-06-24] MEDS: AMANTADINE HCL 50 MG/5 ML GT SCH ×2 (09:00→20:43)
[2021-06-24] MEDS: COD LIVER OIL/ZINC OXIDE OINT 113 GM TUBE TOP SCH ×2 (09:01→20:43)
[2021-06-24] MEDS: HEPARIN SODIUM,PORCINE 5,000 UNITS/ML VIAL SQ SCH ×2 (09:01→21:08)
[2021-06-24] MEDS: TRIAMCINOLONE ACET 0.1% CREAM 15 GM TUBE TP SCH ×2 (09:02→20:43)
[2021-06-24] MEDS: NYSTATIN CREAM 30 GM TUBE TP SCH ×2 (09:02→20:44)
[2021-06-24] MEDS: VITAMINS A AND D OINT TP SCH ×2 (09:02→20:44)
[2021-06-24] MEDS: SODIUM HYPOCHLORITE 0.125% (QUARTER STRENGTH) 473 ML BOTTLE TP SCH ×2 (09:02→20:43)
[2021-06-24 10:00] VITALS: BP 117/69
--- NOTE | 2021-06-24 18:03 | NUR ---
SEEN BY DR. WEBSTER AND WITH NNO.
[2021-06-24 18:24] VITALS: BP 135/89
[2021-06-24 20:38] VITALS: BP 149/87
[2021-06-24] MEDS: MINERAL OIL/PETROLAT OPHT OINT 3.5 GM TUBE EACHEYE SCH (20:41)
[2021-06-24] MEDS: ATORVASTATIN 40 MG TABLET GT SCH (20:43)
[2021-06-24] MEDS: THIAMINE HCL 100 MG TABLET GT SCH (20:43)
[2021-06-24] MEDS: hydrALAZINE HCL 25 MG TABLET GT SCH (20:43)
[2021-06-24] MEDS: ASCORBIC ACID 500 MG TABLET GT SCH (20:43)
[2021-06-24 23:24] VITALS: BP 137/80
[2021-06-25] MEDS: IPRATROPIUM BROMIDE 0.5 MG/2.5 ML NEBU NEB SCH ×4 (00:50→18:44)
[2021-06-25] MEDS: LEVALBUTEROL HCL 1.25 MG/0.5 ML NEB NEB SCH ×4 (00:50→18:44)
[2021-06-25] MEDS: LORAZEPAM 1 MG TABLET GT PRN ×4 (03:04→22:38)
[2021-06-25] MEDS: HYDROCODONE/APAP 5-325MG TABLET GT PRN ×2 (04:45→16:58)
[2021-06-25] MEDS: BLOOD SUGAR DIAGNOSTIC 1 EACH STRIP VI SCH ×3 (05:14→17:06)
[2021-06-25] MEDS: ARGININE/GLUTAMINE/CALCIUM BMB 1 EACH POWD.PACK GT SCH ×2 (05:14→17:05)
[2021-06-25] MEDS: INSULIN REGULAR, HUMAN 300 UNIT/3 ML VIAL SQ PRN ×3 (05:18→17:06)
[2021-06-25] MEDS: LEVALBUTEROL HCL 1.25 MG/0.5 ML NEB NEB PRN (05:40)
[2021-06-25] MEDS: IPRATROPIUM BROMIDE 0.5 MG/2.5 ML NEBU NEB PRN (05:40)
[2021-06-25 06:06] VITALS: BP 129/78
[2021-06-25 07:44] VITALS: BP 145/89
[2021-06-25] MEDS: ACETAMINOPHEN 650 MG/20 ML UDC- SA PATIENTS-PAIN ONLY GT SCH ×2 (08:58→21:13)
[2021-06-25] MEDS: BACLOFEN 10 MG TABLET GT SCH ×2 (08:59→21:14)
[2021-06-25] MEDS: levETIRAcetam 500 MG/5 ML LIQUID UDC GT SCH ×2 (08:59→21:14)
[2021-06-25] MEDS: TERAZOSIN 1 MG CAPSULE GT SCH (08:59)
[2021-06-25] MEDS: METOPROLOL TARTRATE 25 MG TABLET GT SCH ×2 (08:59→21:14)
[2021-06-25] MEDS: FAMOTIDINE 20 MG TABLET GT SCH ×2 (08:59→21:14)
[2021-06-25] MEDS: PHENOBARBITAL 97.2 MG TABLET GT SCH ×2 (09:00→21:14)
[2021-06-25] MEDS: HEPARIN SODIUM,PORCINE 5,000 UNITS/ML VIAL SQ SCH ×2 (09:00→21:48)
[2021-06-25] MEDS: AMANTADINE HCL 50 MG/5 ML GT SCH ×2 (09:00→21:14)
[2021-06-25] MEDS: COD LIVER OIL/ZINC OXIDE OINT 113 GM TUBE TOP SCH ×2 (09:01→21:15)
[2021-06-25] MEDS: NYSTATIN CREAM 30 GM TUBE TP SCH ×2 (09:01→21:15)
[2021-06-25] MEDS: SODIUM HYPOCHLORITE 0.125% (QUARTER STRENGTH) 473 ML BOTTLE TP SCH ×2 (09:01→21:15)
[2021-06-25] MEDS: TRIAMCINOLONE ACET 0.1% CREAM 15 GM TUBE TP SCH ×2 (09:01→21:15)
[2021-06-25] MEDS: VITAMINS A AND D OINT TP SCH ×2 (09:01→21:15)
--- NOTE | 2021-06-25 13:29 | NUR ---
NEW ORDER CARRIED OUT FROM DR. CERDA FOR COUGH MEDICINE D/T EXCESS COUGH LEADS TO BRONCHOSPASM AND ALSO ORDER FOR UA AND C&S D/T DARK BLOOD CLOT SEEN IN URINE.DR. CERDA ASK NURSE TO DO F/C IRRIGATION ALREADY ORDERED.
[2021-06-25 13:30] VITALS: BP 124/78
[2021-06-25] MEDS: HYDROGEN PEROXIDE 3% 118 ML BOTTLE TP SCH ×2 (13:50→18:45)
[2021-06-25] MEDS: GUAIFENESIN SUGAR FREE 100 MG/5 ML UDC GT PRN ×2 (14:24→18:40)
--- NOTE | 2021-06-25 14:30 | NUR ---
DR. WEBSTER CALLED D/T PT. NOTED WITH RESPIRATORY DISTRESS M/B TACHYPNEA 40X'(PT. ON FIO2 40% AND O2 SAT 96% AND NO CYANOSIS),SKIN MOIST AND SWEATY AND USING HIS ANCILLARY THORAX AND ABDOMINAL MUSCLES TO BREATH .RT KUSHAL AND VERÓNICA WERE CALLED AND THEY DID DEEP TRACHEAL SUCTION AND BREATHING TX GIVEN AND ADJUSTED TRACH PULLING IT A LITTLE BIT OUT USING DOUBLE TRACH DRESSING AND AFTER ABOUT 15 MIN PT. RESPIRATORY DISTRESS IMPROVED .DR. WEBSTER AWARE AND WITH NNO AT THIS TIME .
[2021-06-25] MEDS: GLUCERNA 1.2 1000ML LIQUID GT PRN (17:06)
--- NOTE | 2021-06-25 17:53 | NUR ---
URINE COLLECTED FOR UA AND C&S.
[2021-06-25 18:21] LABS: *BILIRUBIN,URIN NEGATIVE (NEGATIVE); *BLOOD, URINE 1+ (NEGATIVE); *CLARITY,URINE SLIGHTLY CLOUDY (CLEAR); *COLOR,URINE YELLOW (YELLOW); *KETONES,URINE NEGATIVE (NEGATIVE); *UROBILINOGEN,URINE 0.2 E.U./dl (NORMAL); LEUKOCYTE ESTERASE ,URINE 1+ (NEGATIVE); NITRITE, URINE POSITIVE (NEGATIVE); PH,URINE 5.5 (5.0-8.0); UGLUCOSE NEGATIVE (NEGATIVE)
[2021-06-25 18:25] LABS: BACTERIA,URINE FEW /HPF (NONE SEEN); SQUAMOUS EPITHELIAL CELL,UR FEW /HPF (NONE SEEN); URINE AMORPHOUS URATE FEW /HPF; WBC,URINE TNTC /HPF (0-3)
[2021-06-25 18:55] VITALS: BP 140/89
[2021-06-25 20:00] VITALS: BP 142/85
[2021-06-25] MEDS: MINERAL OIL/PETROLAT OPHT OINT 3.5 GM TUBE EACHEYE SCH (21:13)
[2021-06-25] MEDS: ATORVASTATIN 40 MG TABLET GT SCH (21:14)
[2021-06-25] MEDS: THIAMINE HCL 100 MG TABLET GT SCH (21:14)
[2021-06-25] MEDS: ASCORBIC ACID 500 MG TABLET GT SCH (21:14)
[2021-06-25] MEDS: hydrALAZINE HCL 25 MG TABLET GT SCH (21:14)
[2021-06-26 00:45] VITALS: BP 134/76
[2021-06-26] MEDS: BLOOD SUGAR DIAGNOSTIC 1 EACH STRIP VI SCH ×4 (00:51→17:27)
[2021-06-26] MEDS: LEVALBUTEROL HCL 1.25 MG/0.5 ML NEB NEB SCH ×4 (00:58→19:16)
[2021-06-26] MEDS: INSULIN REGULAR, HUMAN 300 UNIT/3 ML VIAL SQ PRN ×4 (00:58→17:28)
[2021-06-26] MEDS: IPRATROPIUM BROMIDE 0.5 MG/2.5 ML NEBU NEB SCH ×4 (00:58→19:16)
[2021-06-26] MEDS: GUAIFENESIN SUGAR FREE 100 MG/5 ML UDC GT PRN (01:38)
[2021-06-26] MEDS: LORAZEPAM 1 MG TABLET GT PRN (04:34)
[2021-06-26] MEDS: HYDROCODONE/APAP 5-325MG TABLET GT PRN (05:04)
[2021-06-26 05:10] VITALS: BP 133/71
[2021-06-26] MEDS: ARGININE/GLUTAMINE/CALCIUM BMB 1 EACH POWD.PACK GT SCH ×2 (05:12→17:27)
[2021-06-26] MEDS: LEVALBUTEROL HCL 1.25 MG/0.5 ML NEB NEB PRN (06:34)
[2021-06-26] MEDS: IPRATROPIUM BROMIDE 0.5 MG/2.5 ML NEBU NEB PRN (06:34)
[2021-06-26 07:52] VITALS: BP 139/80
[2021-06-26] MEDS: HYDROGEN PEROXIDE 3% 118 ML BOTTLE TP SCH ×2 (08:10→19:16)
[2021-06-26] MEDS: ACETAMINOPHEN 650 MG/20 ML UDC- SA PATIENTS-PAIN ONLY GT SCH ×2 (09:17→20:30)
[2021-06-26] MEDS: METOPROLOL TARTRATE 25 MG TABLET GT SCH ×2 (09:18→21:44)
[2021-06-26] MEDS: levETIRAcetam 500 MG/5 ML LIQUID UDC GT SCH ×2 (09:18→21:44)
[2021-06-26] MEDS: TERAZOSIN 1 MG CAPSULE GT SCH (09:18)
[2021-06-26] MEDS: FAMOTIDINE 20 MG TABLET GT SCH ×2 (09:18→21:44)
[2021-06-26] MEDS: AMANTADINE HCL 50 MG/5 ML GT SCH ×2 (09:18→21:44)
[2021-06-26] MEDS: PHENOBARBITAL 97.2 MG TABLET GT SCH ×2 (09:18→21:44)
[2021-06-26] MEDS: BACLOFEN 10 MG TABLET GT SCH ×2 (09:18→21:44)
[2021-06-26] MEDS: TRIAMCINOLONE ACET 0.1% CREAM 15 GM TUBE TP SCH ×2 (09:19→21:45)
[2021-06-26] MEDS: SODIUM HYPOCHLORITE 0.125% (QUARTER STRENGTH) 473 ML BOTTLE TP SCH ×2 (09:19→21:45)
[2021-06-26] MEDS: NYSTATIN CREAM 30 GM TUBE TP SCH ×2 (09:19→21:49)
[2021-06-26] MEDS: VITAMINS A AND D OINT TP SCH ×2 (09:19→21:49)
[2021-06-26] MEDS: COD LIVER OIL/ZINC OXIDE OINT 113 GM TUBE TOP SCH ×2 (09:19→21:45)
[2021-06-26] MEDS: HEPARIN SODIUM,PORCINE 5,000 UNITS/ML VIAL SQ SCH ×2 (09:19→21:00)
--- NOTE | 2021-06-26 09:49 | NUR ---
NEW ORDER WAS CARRIED OUT FROM DR. CERDA .
--- NOTE | 2021-06-26 11:04 | NUR ---
BENJIE VILLAREAL FROM [facility] IV NOT COVERED ,[facility] PHARMACIST AWARE TO SEND.
[2021-06-26] MEDS: CEFTRIAXONE 1 G in IV DEXTROSE 5% 50 ML IV SCH (12:43)
[2021-06-26 20:00] VITALS: BP 130/72
[2021-06-26] MEDS: MINERAL OIL/PETROLAT OPHT OINT 3.5 GM TUBE EACHEYE SCH (21:43)
[2021-06-26] MEDS: THIAMINE HCL 100 MG TABLET GT SCH (21:44)
[2021-06-26] MEDS: ATORVASTATIN 40 MG TABLET GT SCH (21:44)
[2021-06-26] MEDS: hydrALAZINE HCL 25 MG TABLET GT SCH (21:44)
[2021-06-26] MEDS: ASCORBIC ACID 500 MG TABLET GT SCH (21:45)
[2021-06-27] VITALS: BP_SYST 111; BP_SYST 125; BP_SYST 138; BP_DIAS 70; BP_DIAS 77; BP_DIAS 79
[2021-06-27] MEDS: HYDROGEN PEROXIDE 3% 118 ML BOTTLE TP PRN (00:36)
[2021-06-27] MEDS: LEVALBUTEROL HCL 1.25 MG/0.5 ML NEB NEB SCH ×4 (00:40→20:00)
[2021-06-27] MEDS: IPRATROPIUM BROMIDE 0.5 MG/2.5 ML NEBU NEB SCH ×4 (00:40→20:00)
[2021-06-27] MEDS: INSULIN REGULAR, HUMAN 300 UNIT/3 ML VIAL SQ PRN ×3 (02:50→17:06)
[2021-06-27 05:00] VITALS: BP 132/74
[2021-06-27] MEDS: ARGININE/GLUTAMINE/CALCIUM BMB 1 EACH POWD.PACK GT SCH ×2 (05:39→17:05)
[2021-06-27] MEDS: BLOOD SUGAR DIAGNOSTIC 1 EACH STRIP VI SCH ×4 (05:40→17:05)
[2021-06-27 07:34] VITALS: BP 145/77
[2021-06-27] MEDS: ACETAMINOPHEN 650 MG/20 ML UDC- SA PATIENTS-PAIN ONLY GT SCH ×2 (08:30→21:18)
[2021-06-27] MEDS: AMANTADINE HCL 50 MG/5 ML GT SCH ×2 (09:31→21:19)
[2021-06-27] MEDS: FAMOTIDINE 20 MG TABLET GT SCH ×2 (09:31→21:19)
[2021-06-27] MEDS: levETIRAcetam 500 MG/5 ML LIQUID UDC GT SCH ×2 (09:31→21:18)
[2021-06-27] MEDS: PHENOBARBITAL 97.2 MG TABLET GT SCH ×2 (09:31→21:19)
[2021-06-27] MEDS: METOPROLOL TARTRATE 25 MG TABLET GT SCH ×2 (09:31→21:19)
[2021-06-27] MEDS: BACLOFEN 10 MG TABLET GT SCH ×2 (09:31→21:18)
[2021-06-27] MEDS: TERAZOSIN 1 MG CAPSULE GT SCH (09:31)
[2021-06-27] MEDS: COD LIVER OIL/ZINC OXIDE OINT 113 GM TUBE TOP SCH ×2 (09:32→21:19)
[2021-06-27] MEDS: VITAMINS A AND D OINT TP SCH ×2 (09:32→21:20)
[2021-06-27] MEDS: NYSTATIN CREAM 30 GM TUBE TP SCH ×2 (09:32→21:20)
[2021-06-27] MEDS: SODIUM HYPOCHLORITE 0.125% (QUARTER STRENGTH) 473 ML BOTTLE TP SCH ×2 (09:32→21:19)
[2021-06-27] MEDS: TRIAMCINOLONE ACET 0.1% CREAM 15 GM TUBE TP SCH ×2 (09:32→21:19)
[2021-06-27] MEDS: HEPARIN SODIUM,PORCINE 5,000 UNITS/ML VIAL SQ SCH ×2 (09:32→21:00)
--- NOTE | 2021-06-27 09:40 | NUR ---
PT'S DTR. SARBJIT NOTIFIED ABOUT IV ATB AND IN AGREEMENT.
[2021-06-27] MEDS: HYDROGEN PEROXIDE 3% 118 ML BOTTLE TP SCH ×2 (09:42→21:13)
[2021-06-27] MEDS: CEFTRIAXONE 1 G in IV DEXTROSE 5% 50 ML IV SCH (11:52)
[2021-06-27 20:11] VITALS: BP 140/80
[2021-06-27] MEDS: ATORVASTATIN 40 MG TABLET GT SCH (21:18)
[2021-06-27] MEDS: hydrALAZINE HCL 25 MG TABLET GT SCH (21:18)
[2021-06-27] MEDS: MINERAL OIL/PETROLAT OPHT OINT 3.5 GM TUBE EACHEYE SCH (21:18)
[2021-06-27] MEDS: THIAMINE HCL 100 MG TABLET GT SCH (21:19)
[2021-06-27] MEDS: ASCORBIC ACID 500 MG TABLET GT SCH (21:19)
[2021-06-28] VITALS: BP 125/74
[2021-06-28] MEDS: BLOOD SUGAR DIAGNOSTIC 1 EACH STRIP VI SCH ×4 (00:50→18:52)
[2021-06-28] MEDS: IPRATROPIUM BROMIDE 0.5 MG/2.5 ML NEBU NEB SCH ×3 (01:43→19:21)
[2021-06-28] MEDS: LEVALBUTEROL HCL 1.25 MG/0.5 ML NEB NEB SCH ×3 (01:43→19:21)
[2021-06-28 05:00] VITALS: BP 135/68
[2021-06-28] MEDS: HYDROCODONE/APAP 5-325MG TABLET GT PRN ×2 (05:24→10:42)
[2021-06-28] MEDS: LORAZEPAM 1 MG TABLET GT PRN ×2 (05:24→09:25)
[2021-06-28] MEDS: ARGININE/GLUTAMINE/CALCIUM BMB 1 EACH POWD.PACK GT SCH (06:15)
--- NOTE | 2021-06-28 07:00 | NUR ---
Rcvd resident asleep, no labored breathing, no coughing noted.
[2021-06-28 07:25] VITALS: BP 139/82
--- NOTE | 2021-06-28 07:45 | NUR ---
Resident noted coughing with secretions and with labored breathing. Suctioned resident.
--- NOTE | 2021-06-28 07:55 | NUR ---
Resident still noted with labored breathing, continuous coughing with secretion. O2 sat 97%. Suctioned resident. Charge nurse made aware. RT made aware. Robitussin given as ordered. Will cont to monitor.
--- NOTE | 2021-06-28 08:00 | NUR ---
Reported by primary nurse,pt has labored breathing ,continous coughing ,Robitussin was given as ordered,respiratory therapist called at bedside,breathing tx given as ordered.pt is afebrile ,on close observation.
[2021-06-28] MEDS: TERAZOSIN 1 MG CAPSULE GT SCH (08:54)
[2021-06-28] MEDS: levETIRAcetam 500 MG/5 ML LIQUID UDC GT SCH ×2 (08:56→21:12)
[2021-06-28] MEDS: GUAIFENESIN SUGAR FREE 100 MG/5 ML UDC GT PRN (08:56)
[2021-06-28] MEDS: BACLOFEN 10 MG TABLET GT SCH ×2 (08:57→21:13)
[2021-06-28] MEDS: FAMOTIDINE 20 MG TABLET GT SCH ×2 (08:57→21:13)
[2021-06-28] MEDS: METOPROLOL TARTRATE 25 MG TABLET GT SCH ×2 (08:57→21:13)
[2021-06-28] MEDS: PHENOBARBITAL 97.2 MG TABLET GT SCH ×2 (08:58→21:13)
[2021-06-28] MEDS: AMANTADINE HCL 50 MG/5 ML GT SCH ×2 (08:59→21:13)
--- NOTE | 2021-06-28 09:00 | NUR ---
All due meds given as ordered. Resident still noted coughing and with labored breathing. O2 sat 97%. Suctioned as needed. Cont to monitor.
[2021-06-28] MEDS: HEPARIN SODIUM,PORCINE 5,000 UNITS/ML VIAL SQ SCH ×2 (09:01→21:15)
[2021-06-28] MEDS: COD LIVER OIL/ZINC OXIDE OINT 113 GM TUBE TOP SCH ×2 (09:11→21:16)
[2021-06-28] MEDS: VITAMINS A AND D OINT TP SCH ×2 (09:12→21:17)
[2021-06-28] MEDS: SODIUM HYPOCHLORITE 0.125% (QUARTER STRENGTH) 473 ML BOTTLE TP SCH ×2 (09:12→21:16)
[2021-06-28] MEDS: TRIAMCINOLONE ACET 0.1% CREAM 15 GM TUBE TP SCH ×2 (09:12→21:16)
[2021-06-28] MEDS: NYSTATIN CREAM 30 GM TUBE TP SCH ×2 (09:12→21:17)
[2021-06-28] MEDS: ACETAMINOPHEN 650 MG/20 ML UDC- SA PATIENTS-PAIN ONLY GT SCH ×2 (09:13→20:30)
[2021-06-28] MEDS: HYDROGEN PEROXIDE 3% 118 ML BOTTLE TP SCH ×2 (09:17→19:21)
[2021-06-28] MEDS: ONDANSETRON HCL 4 MG TABLET GT PRN (11:15)
--- NOTE | 2021-06-28 11:15 | NUR ---
Resident with episode x1 vomiting with moderate amnt of emesis. PRN Zofran given as ordered. VS: B/P 195/163, HR 122, RESP 40, O2 SAT 96%, TEMP 97.5F. PRN HYDRALAZINE GIVEN. Cont to monitor.
[2021-06-28] MEDS: hydrALAZINE HCL 25 MG TABLET GT PRN (11:30)
--- NOTE | 2021-06-28 11:30 | NUR ---
Seen and examined By Cari Strickland with new orders noted,Pt continue has labored breathing ,Per Rt and Cari strickland,this is secondary to pain pt received Ativan ,Tylenol before wound tx and [place],and no changes noted.Dr Bauer notified with orders to transfer to patient to Er for evaluation,orders carried out.
--- NOTE | 2021-06-28 12:00 | NUR ---
Pt was transfer to Er report given to Jaylyn Champion.
--- NOTE | 2021-06-28 12:02 | NUR ---
RR 40,HR 122,Bp 195/163,temp 97.5,O2 sat 96 to 97%,Pt's daughter Kylie notified,she will notified Arden her grandfather.
[2021-06-28] MEDS ORDERED: DEXT15DR6 EACHEYE (13:04)
[2021-06-28] MEDS ORDERED: LEVE1000 GT (13:04)
[2021-06-28] MEDS ORDERED: ACET-73 GT (13:04)
[2021-06-28] MEDS ORDERED: ALBU2.5V13 NEB (13:04)
[2021-06-28] MEDS ORDERED: TERA2CAP4 GT (13:04)
[2021-06-28] MEDS ORDERED: THIA100T74 GT (13:04)
[2021-06-28] MEDS ORDERED: NUT.237L30 GT (13:04)
[2021-06-28] MEDS ORDERED: HYDR237S13 TP (13:04)
[2021-06-28] MEDS ORDERED: DOCU100C36 GT (13:04)
[2021-06-28] MEDS ORDERED: FAMO-132 GT (13:04)
[2021-06-28] MEDS ORDERED: DEXT50DI8 IV (13:04)
[2021-06-28] MEDS ORDERED: METO25TA6 GT (13:04)
[2021-06-28] MEDS ORDERED: ATOR80TA GT (13:04)
[2021-06-28] MEDS ORDERED: VITA113O5 TP (13:04)
[2021-06-28] MEDS ORDERED: INSU100V28 SQ (13:04)
[2021-06-28] MEDS ORDERED: ZINC57OI3 TP (13:04)
[2021-06-28] MEDS ORDERED: HYDR-894 GT ×2 (13:04→13:19)
[2021-06-28] MEDS ORDERED: IPRA0.2S48 NEB ×2 (13:04→13:19)
[2021-06-28] MEDS ORDERED: ENOX40DI SQ (13:04)
[2021-06-28] MEDS ORDERED: LORA-259 GT (13:04)
[2021-06-28] MEDS ORDERED: CEFT1VIA15 IV (13:19)
[2021-06-28] MEDS ORDERED: HYDR-3972 GT (13:19)
[2021-06-28] MEDS ORDERED: ASCO500T10 GT (13:19)
[2021-06-28] MEDS ORDERED: AMAN100T GT (13:19)
[2021-06-28] MEDS ORDERED: GUAI200T5 GT (13:19)
[2021-06-28] MEDS ORDERED: ARGI1PAC GT (13:19)
[2021-06-28] MEDS ORDERED: HEPA500034 SQ (13:19)
[2021-06-28] MEDS ORDERED: BACL10TA GT (13:19)
[2021-06-28] MEDS ORDERED: LEVA1.257 IH (13:49)
[2021-06-28] MEDS ORDERED: PHEN-563 GT (13:49)
[2021-06-28] MEDS ORDERED: ONDA4TAB11 GT (13:49)
[2021-06-28] MEDS ORDERED: TRIA15CR2 TP (13:49)
[2021-06-28] MEDS ORDERED: PHEN97.22 GT (13:49)
[2021-06-28] MEDS ORDERED: ACET-2154 GT (13:49)
[2021-06-28] MEDS ORDERED: SODI473S8 TP (13:49)
[2021-06-28] MEDS ORDERED: NYST15CR2 TP (13:52)
--- NOTE | 2021-06-28 17:30 | NUR ---
Pt back from Er ,in stable condition,B/P 117/73,HR 98,RR24,T 97.3,F102 100%,with admiting diagnosis UTI,report received from Nahed Champion.Left message to Dr Chowdhury to verified the orders.
--- NOTE | 2021-06-28 18:49 | NUR ---
Dr Chowdhury call back with new orders noted.
--- NOTE | 2021-06-28 20:00 | NUR ---
new orders from Mike Manriquez Np carried out.
[2021-06-28 20:13] VITALS: BP 143/75
[2021-06-28] MEDS ORDERED: MEROPENEM 0.5 G in IV NORMAL SALINE 50 ML IV ONE ×2 (21:00→22:00)
[2021-06-28] MEDS: MINERAL OIL/PETROLAT OPHT OINT 3.5 GM TUBE EACHEYE SCH (21:12)
[2021-06-28] MEDS: hydrALAZINE HCL 25 MG TABLET GT SCH (21:12)
[2021-06-28] MEDS: THIAMINE HCL 100 MG TABLET GT SCH (21:13)
[2021-06-28] MEDS: ATORVASTATIN 40 MG TABLET GT SCH (21:13)
[2021-06-28] MEDS: ASCORBIC ACID 500 MG TABLET GT SCH (21:14)
[2021-06-28] MEDS: VANCOMYCIN IV 750 MG in IV DEXTROSE 5% 250 ML IV SCH (21:54)
[2021-06-28] MEDS ORDERED: VANCOMYCIN IV 1,000 MG in IV DEXTROSE 5% 250 ML IV SCH (22:00)
[2021-06-29] MEDS: BLOOD SUGAR DIAGNOSTIC 1 EACH STRIP VI SCH ×2 (00:15→05:31)
[2021-06-29] MEDS: INSULIN REGULAR, HUMAN 300 UNIT/3 ML VIAL SQ PRN (00:16)
[2021-06-29] MEDS: LEVALBUTEROL HCL 1.25 MG/0.5 ML NEB NEB SCH ×2 (00:40→07:26)
[2021-06-29] MEDS: IPRATROPIUM BROMIDE 0.5 MG/2.5 ML NEBU NEB SCH ×2 (00:40→07:26)
[2021-06-29] MEDS: GLUCERNA 1.2 1000ML LIQUID GT PRN (03:44)
[2021-06-29 04:00] VITALS: BP 152/72
[2021-06-29] MEDS ORDERED: MEROPENEM 0.5 G in IV NORMAL SALINE 50 ML IV SCH ×2 (05:00→06:00)
[2021-06-29] MEDS: LORAZEPAM 1 MG TABLET GT PRN (05:00)
[2021-06-29] MEDS: HYDROCODONE/APAP 5-325MG TABLET GT PRN (05:00)
[2021-06-29] MEDS: VANCOMYCIN IV 750 MG in IV DEXTROSE 5% 250 ML IV SCH (05:18)
[2021-06-29] MEDS: ARGININE/GLUTAMINE/CALCIUM BMB 1 EACH POWD.PACK GT SCH (05:30)
--- NOTE | 2021-06-29 06:44 | NUR ---
pt in bed awake responsive episode of cough and congestion suction prn.on atb ivpb for uti and mrsa urine continue on contract isolation precaution for mrsa urine with good hand washing.pt on folly catheter and has episode of hematuria.pain medication was given for tx time keep clean and good diane area .
--- NOTE | 2021-06-29 07:30 | NUR ---
Received pt in bed ,with respiratory distress,RR36,HR 136,T 100.6 ,o2 sat 92,unable to check the blood pressure, has coffee ground vomiting.suction done.with moderated amount secretions ,coffee ground vomiting coming out to the trach too,call respiratory therapist.
--- NOTE | 2021-06-29 07:43 | NUR ---
pt with episodes of coughing,noted gasping for air,o2 sat 85 to 87 %,rapid respond team was callled.
[2021-06-29 08:13] LABS: HEMATOCRIT 35.4 % (36.7-47.1); MEAN CORPUSCULAR HEMOGLOBIN 28.9 uug (23.8-33.4); MEAN CORPUSCULAR VOLUME 88.7 fL (73.0-96.2); PLATELET COUNT (AUTO) 270 K/uL (152-348)
--- NOTE | 2021-06-29 08:15 | NUR ---
Dr bowman with new orders to transfer Pt to Er for evaluation,report given to Nahed Champion and Joseph Champion,Kylie Pt's daughter aware of the transfer,she will notify his grandfather
[2021-06-29 08:23] LABS: CARBON DIOXIDE 28 mmol/L (21-32); CHLORIDE 103 mmol/L (98-107); CREATININE 0.4 mg/dL (0.6-1.3); GLUCOSE 134 mg/dL (74-106); POTASSIUM 4.7 mmol/L (3.5-5.1); UREA NITROGEN, BLOOD 26 mg/dL (7-18)
[2021-06-29 08:29] LABS: ALANINE AMINOTRANSFERASE 18 U/L (16-63); ALKALINE PHOSPHATASE 177 U/L (50-136); ASPARTATE AMINOTRANSFERASE 20 U/L (15-37); BILIRUBIN,TOTAL 0.3 mg/dL (0.2-1.0); TOTAL PROTEIN, SERUM 7.3 g/dL (6.4-8.2)
[2021-06-29] MEDS: ACETAMINOPHEN 650 MG/20 ML UDC- SA PATIENTS-PAIN ONLY GT SCH (08:30)
[2021-06-29] MEDS: TRIAMCINOLONE ACET 0.1% CREAM 15 GM TUBE TP SCH (09:00)
[2021-06-29] MEDS: TERAZOSIN 1 MG CAPSULE GT SCH (09:00)
[2021-06-29] MEDS: AMANTADINE HCL 50 MG/5 ML GT SCH (09:00)
[2021-06-29] MEDS: COD LIVER OIL/ZINC OXIDE OINT 113 GM TUBE TOP SCH (09:00)
[2021-06-29] MEDS: SODIUM HYPOCHLORITE 0.125% (QUARTER STRENGTH) 473 ML BOTTLE TP SCH (09:00)
[2021-06-29] MEDS: HEPARIN SODIUM,PORCINE 5,000 UNITS/ML VIAL SQ SCH (09:00)
[2021-06-29] MEDS: METOPROLOL TARTRATE 25 MG TABLET GT SCH (09:00)
[2021-06-29] MEDS: PHENOBARBITAL 97.2 MG TABLET GT SCH (09:00)
[2021-06-29] MEDS: NYSTATIN CREAM 30 GM TUBE TP SCH (09:00)
[2021-06-29] MEDS: VITAMINS A AND D OINT TP SCH (09:00)
[2021-06-29] MEDS: levETIRAcetam 500 MG/5 ML LIQUID UDC GT SCH (09:00)
[2021-06-29] MEDS: BACLOFEN 10 MG TABLET GT SCH (09:00)
[2021-06-29] MEDS: FAMOTIDINE 20 MG TABLET GT SCH (09:00)
[2021-06-29] MEDS ORDERED: LEVA1.2528 IH (09:43)
[2021-06-29] MEDS ORDERED: MERREM IV (09:51)
[2021-06-29] MEDS ORDERED: DEXT15DR6 EACHEYE (09:55)
[2021-06-29] MEDS ORDERED: REFRESH EACHEYE (09:55)
[2021-06-29] MEDS ORDERED: VANC750F2 IV (09:55)
[2021-06-29] MEDS ORDERED: NYST15CR TP (09:55)
[2021-06-29] MEDS ORDERED: NYSTATIN CREAM 30 GM TUBE TP PRN (14:45)
[2021-06-29] MEDS ORDERED: TRIAMCINOLONE ACET 0.1% CREAM 15 GM TUBE TP PRN (14:45)
[2021-06-29] MEDS ORDERED: SODIUM HYPOCHLORITE 0.125% (QUARTER STRENGTH) 473 ML BOTTLE TP PRN (14:45)
[2021-06-29] MEDS ORDERED: VANCOMYCIN IV 750 MG in IV DEXTROSE 5% 250 ML IV SCH (16:00)
--- NOTE | 2021-06-29 16:39 | NUR ---
This PLUMBING AND HEATING CONTRACTOR emailed patient's daughter Janis the updated guidelines and criteria for visitations.
[2021-06-29] MEDS ORDERED: SODIUM HYPOCHLORITE 0.125% (QUARTER STRENGTH) 473 ML BOTTLE TP SCH (21:00)
[2021-06-29] MEDS ORDERED: TRIAMCINOLONE ACET 0.1% CREAM 15 GM TUBE TP SCH (21:00)
[2021-06-29] MEDS ORDERED: NYSTATIN CREAM 30 GM TUBE TP SCH (21:00)
[2021-07-06] MEDS ORDERED: CEFE1FRO IV (16:05)
[2021-08-11] MEDS ORDERED: TUBERCULIN,PURIF.PROT.DERIV. 5 TU/0.1 ML TEST ID SCH (09:00)
== END 2021-06-29 08:30 | disposition short-term general hospital (02) | DRG 951 ==
LOC: SA → UNDOLOA 06-29 08:30 → UNDODISIN 07-06 → UNDOLOA 07-06
PROVIDERS: ADMIT Internal Medicine; ATTEND Internal Medicine
DX: J96.21 Acute and chronic respiratory failure with hypoxia (principal); E43 Unspecified severe protein-calorie malnutrition; G93.1 Anoxic brain damage, not elsewhere classified; J15.1 Pneumonia due to Pseudomonas; L89.154 Pressure ulcer of sacral region, stage 4; Z93.0 Tracheostomy status; D68.59 Other primary thrombophilia; I48.0 Paroxysmal atrial fibrillation; I48.92 Unspecified atrial flutter; E87.1 Hypo-osmolality and hyponatremia; G40.909 Epilepsy, unspecified, not intractable, without status epilepticus; D64.9 Anemia, unspecified; E78.5 Hyperlipidemia, unspecified; E11.9 Type 2 diabetes mellitus without complications; I10 Essential (primary) hypertension; I70.0 Atherosclerosis of aorta; Z20.822 Contact with and (suspected) exposure to COVID-19; N39.0 Urinary tract infection, site not specified; J98.01 Acute bronchospasm; R13.10 Dysphagia, unspecified; Z93.1 Gastrostomy status; I69.198 Other sequelae of nontraumatic intracerebral hemorrhage; J44.0 Chronic obstructive pulmonary disease with (acute) lower respiratory infection; Z88.0 Allergy status to penicillin; Z87.891 Personal history of nicotine dependence
CPT/HCPCS: 36415; 36600; 71045; 72220; 74018; 80184; 80200; 83605; 83735; 84100; 84520; 85025; 85651; 86140; 86580; 87040; 87070; 87077; 87086; 90732; 93005; 94640; 94664; 95819; A4663; A6209; C1758; J0692; J0696; J1644; J1650; J1815; J2185; J3260; J3370; J3490; J3590; J7030; J7060; Q0162; Q9963; U0003

== ENCOUNTER 2021-06-28 11:59 | Emergency (ER) | payer MEDICAID ==
[~2021-06-28] VITALS: Ht 165.1 cm; Wt 61.2 kg
--- NOTE | 2021-06-28 12:00 | NUR ---
Pt brought down to emergency room for respiratory distress. Pt trach changed per Dr Galvez verbal order. Pt placed on Canales vent with settings of SIMV 14, VT 500, FIO2 50% PEEP+5. Pt tolerating vent settings well. Will continue to monitor.
[2021-06-28] MEDS ORDERED: ACETAMINOPHEN ES 500 MG TABLET GT ONE (12:30)
[2021-06-28] MEDS ORDERED: IV NORMAL SALINE 1000 ML BAG IV ONE (12:30)
--- NOTE | 2021-06-28 12:33 | NUR ---
Patient brought from sub acute unit for bradycardia and hypetension, vitals on arrival noted at 119 heart rate and 139/86, patient respirations noted at 44 a minute, appears cold and clammy, rectal temp noted at 101.3, Ice packs applied and tylenol given
[2021-06-28] MEDS ORDERED: VANCOMYCIN IV 1,000 MG in IV DEXTROSE 5% 250 ML IV ONE (12:45)
[2021-06-28] MEDS ORDERED: DOXYCYCLINE HYCLATE IV 200 MG in IV DEXTROSE 5% 250 ML IV ONE (12:45)
[2021-06-28] MEDS ORDERED: CEFEPIME HCL 2 G in IV DEXTROSE 5% 100 ML IV ONE (12:45)
[2021-06-28] MEDS ORDERED: VANCOMYCIN IV 200 ML ONE (12:57)
[2021-06-28] MEDS ORDERED: ACETAMINOPHEN ES 500 MG TABLET ONE (12:57)
[2021-06-28] MEDS ORDERED: CEFEPIME HCL 1 G VIAL ONE (12:57)
[2021-06-28 13:00] LABS: ABG BASE EXCESS 2.3 mmol/L; ABG HCO3 26.2 mmol/L; ABG PCO2 38.2 mmHg (35.0-45.0); ABG PH 7.454 (7.350-7.450); ABG PO2 218.6 mmHg (75.0-100.0); ABG SITE RIGHT RADIAL; ABG TOTAL HEMOGLOBIN 11.4 G/dL (13.5-18.0); MetHb 0.4 % (0.0-1.5); O2Hb 98.3 % (94.0-97.0); VENT MODE VENT - SIMV; VT, ABG 500 mL
[2021-06-28 13:02] LABS: *BILIRUBIN,URIN NEGATIVE (NEGATIVE); *BLOOD, URINE 3+ (NEGATIVE); *CLARITY,URINE CLOUDY (CLEAR); *COLOR,URINE YELLOW (YELLOW); *KETONES,URINE TRACE (NEGATIVE); *UROBILINOGEN,URINE 0.2 E.U./dl (NORMAL); LEUKOCYTE ESTERASE ,URINE 1+ (NEGATIVE); NITRITE, URINE NEGATIVE (NEGATIVE); UGLUCOSE NEGATIVE (NEGATIVE)
[2021-06-28] MEDS ORDERED: ZINC57OI3 TP (13:04)
[2021-06-28] MEDS ORDERED: THIA100T74 GT (13:04)
[2021-06-28] MEDS ORDERED: HYDR237S13 TP (13:04)
[2021-06-28] MEDS ORDERED: TERA2CAP4 GT (13:04)
[2021-06-28] MEDS ORDERED: LEVE1000 GT (13:04)
[2021-06-28] MEDS ORDERED: FAMO-132 GT (13:04)
[2021-06-28] MEDS ORDERED: INSU100V28 SQ (13:04)
[2021-06-28] MEDS ORDERED: ALBU2.5V13 NEB (13:04)
[2021-06-28] MEDS ORDERED: DEXT50DI8 IV (13:04)
[2021-06-28] MEDS ORDERED: ENOX40DI SQ (13:04)
[2021-06-28] MEDS ORDERED: ACET-73 GT (13:04)
[2021-06-28] MEDS ORDERED: ATOR80TA GT (13:04)
[2021-06-28] MEDS ORDERED: LORA-259 GT (13:04)
[2021-06-28] MEDS ORDERED: HYDR-894 GT ×2 (13:04→13:19)
[2021-06-28] MEDS ORDERED: DEXT15DR6 EACHEYE (13:04)
[2021-06-28] MEDS ORDERED: IPRA0.2S48 NEB ×2 (13:04→13:19)
[2021-06-28] MEDS ORDERED: NUT.237L30 GT (13:04)
[2021-06-28] MEDS ORDERED: DOCU100C36 GT (13:04)
[2021-06-28] MEDS ORDERED: VITA113O5 TP (13:04)
[2021-06-28] MEDS ORDERED: METO25TA6 GT (13:04)
[2021-06-28 13:07] LABS: HEMATOCRIT 35.3 % (36.7-47.1); MEAN CORPUSCULAR HEMOGLOBIN 28.9 uug (23.8-33.4); MEAN CORPUSCULAR VOLUME 88.7 fL (73.0-96.2); PLATELET COUNT (AUTO) 270 K/uL (152-348)
[2021-06-28] MEDS ORDERED: CEFT1VIA15 IV (13:19)
[2021-06-28] MEDS ORDERED: GUAI200T5 GT (13:19)
[2021-06-28] MEDS ORDERED: ARGI1PAC GT (13:19)
[2021-06-28] MEDS ORDERED: BACL10TA GT (13:19)
[2021-06-28] MEDS ORDERED: HYDR-3972 GT (13:19)
[2021-06-28] MEDS ORDERED: AMAN100T GT (13:19)
[2021-06-28] MEDS ORDERED: ASCO500T10 GT (13:19)
[2021-06-28] MEDS ORDERED: HEPA500034 SQ (13:19)
[2021-06-28 13:20] LABS: CARBON DIOXIDE 32 mmol/L (21-32); CHLORIDE 102 mmol/L (98-107); CREATININE 0.6 mg/dL (0.6-1.3); GLUCOSE 161 mg/dL (74-106); POTASSIUM 4.8 mmol/L (3.5-5.1); UREA NITROGEN, BLOOD 36 mg/dL (7-18)
[2021-06-28 13:37] LABS: ALANINE AMINOTRANSFERASE 25 U/L (16-63); ALKALINE PHOSPHATASE 180 U/L (50-136); ASPARTATE AMINOTRANSFERASE 17 U/L (15-37); BILIRUBIN,DIRECT 0.1 mg/dL (0.0-0.2); BILIRUBIN,TOTAL 0.3 mg/dL (0.2-1.0); TOTAL PROTEIN, SERUM 7.7 g/dL (6.4-8.2)
[2021-06-28] MEDS ORDERED: ONDA4TAB11 GT (13:49)
[2021-06-28] MEDS ORDERED: LEVA1.257 IH (13:49)
[2021-06-28] MEDS ORDERED: PHEN97.22 GT (13:49)
[2021-06-28] MEDS ORDERED: TRIA15CR2 TP (13:49)
[2021-06-28] MEDS ORDERED: SODI473S8 TP (13:49)
[2021-06-28] MEDS ORDERED: ACET-2154 GT (13:49)
[2021-06-28] MEDS ORDERED: PHEN-563 GT (13:49)
[2021-06-28] MEDS ORDERED: NYST15CR2 TP (13:52)
[2021-06-28] MEDS ORDERED: IBUPROFEN 100 MG/5 ML LIQUID UDC- SA PATIENTS-PAIN ONLY GT STA (14:15)
--- NOTE | 2021-06-28 14:20 | NUR ---
[facility] called for panel call, awaiting returned call
[2021-06-28] MEDS ORDERED: IV NS 1000 ML 1,000 ML IV ONE (14:30)
[2021-06-28] MEDS ORDERED: IBUPROFEN 100 MG/5 ML LIQUID UDC ONE (14:30)
--- NOTE | 2021-06-28 14:45 | NUR ---
Pt placed on T-tube per Dr Galvez. Pt placed on 28% Cool Aerosol via T-piece. Will continue to monitor.
[2021-06-28 14:50] LABS: BACTERIA,URINE MODERATE /HPF (NONE SEEN); RBC,URINE TNTC /HPF (0-3); SQUAMOUS EPITHELIAL CELL,UR FEW /HPF (NONE SEEN); URINE AMORPHOUS URATE MODERATE /HPF; WBC,URINE 80-100 /HPF (0-3)
--- NOTE | 2021-06-28 15:00 | NUR ---
Patient transferred from vent to T-piece and tolerating well, no signs of acute distress, patient suctioned at this time
[2021-06-28 15:26] LABS: THYROID STIMULATING HORMONE 1.886 mIU/mL (0.358-3.740)
--- NOTE | 2021-06-28 15:35 | NUR ---
Pt SpO2-93% , Turned up FIO2 on Cool Aerosol to 40% ...Dr Galvez aware.
[2021-06-28 16:12] LABS: MAGNESIUM 2.3 mg/dL (1.8-2.4); PHOSPHOROUS 4.8 mg/dL (2.5-4.9)
--- NOTE | 2021-06-28 17:00 | NUR ---
Report given to Alysia TAPIA of subacute, MD Chowdhury made aware
[2021-06-28] MEDS ORDERED: LORAZEPAM 2 MG/1 ML VIAL IV ONE (17:15)
--- NOTE | 2021-06-28 17:20 | NUR ---
Rectal temperature rechecked and noted at 97.1
[2021-06-28 17:23] VITALS: BP 158/78
--- NOTE | 2021-06-28 17:25 | NUR ---
Pt returned to sub acute and placed on 40% C/A via T-piece.
[2021-06-29] MEDS ORDERED: LEVA1.2528 IH (09:43)
[2021-06-29] MEDS ORDERED: MERREM IV (09:51)
[2021-06-29] MEDS ORDERED: NYST15CR TP (09:55)
[2021-06-29] MEDS ORDERED: REFRESH EACHEYE (09:55)
[2021-06-29] MEDS ORDERED: VANC750F2 IV (09:55)
[2021-06-29] MEDS ORDERED: DEXT15DR6 EACHEYE (09:55)
[2021-07-06] MEDS ORDERED: CEFE1FRO IV (16:05)
== END 2021-06-28 17:20 ==
LOC: ER 11:59
DX: A41.9 Sepsis, unspecified organism (principal); J18.9 Pneumonia, unspecified organism; R65.21 Severe sepsis with septic shock; J96.20 Acute and chronic respiratory failure, unspecified whether with hypoxia or hypercapnia; G93.1 Anoxic brain damage, not elsewhere classified; G40.909 Epilepsy, unspecified, not intractable, without status epilepticus; E11.9 Type 2 diabetes mellitus without complications; Z79.4 Long term (current) use of insulin; Z20.822 Contact with and (suspected) exposure to COVID-19; E78.5 Hyperlipidemia, unspecified; Z93.0 Tracheostomy status; Z88.5 Allergy status to narcotic agent; Z93.1 Gastrostomy status; R00.0 Tachycardia, unspecified; I45.10 Unspecified right bundle-branch block; L89.154 Pressure ulcer of sacral region, stage 4; L08.9 Local infection of the skin and subcutaneous tissue, unspecified
CPT/HCPCS: 36415; 36600; 71045; 80048; 80076; 81001; 82550; 83605; 83690; 83735; 83880; 84100; 84145; 84443; 84484; 85025; 85730; 87040 ×2; 87070 ×2; 87086; 87400; 87426; 93005; 96361; 96365; 96366; 96375; 99291; 99292; J0692; J3370; J3490; J7060 ×2; 70030-TC; 87077; A4217; A9150; J7030

== ENCOUNTER 2021-06-29 08:19 | Inpatient (IN) | payer MEDICAID ==
[~2021-06-29] VITALS: Ht 172.7 cm; Wt 49.4 kg
[2021-06-29] VITALS (14 sets, daily range): BP systolic 107–178; BP diastolic 68–99
[~2021-06-29 08:19] MED LIST: ACET-2154 GT; ACET-73 GT; ALBU2.5V13 NEB; AMAN100T GT; ARGI1PAC GT; ASCO500T10 GT; ATOR80TA GT; BACL10TA GT; CEFT1VIA15 IV; DEXT15DR6 EACHEYE; DEXT50DI8 IV; DOCU100C36 GT; ENOX40DI SQ; FAMO-132 GT; GUAI200T5 GT; HEPA500034 SQ; HYDR-3972 GT; HYDR-894 GT; HYDR237S13 TP; INSU100V28 SQ; IPRA0.2S48 NEB; LEVA1.257 IH; LEVE1000 GT; LORA-259 GT; METO25TA6 GT; NUT.237L30 GT; NYST15CR2 TP; ONDA4TAB11 GT; PHEN-563 GT; PHEN97.22 GT; SODI473S8 TP; TERA2CAP4 GT; THIA100T74 GT; TRIA15CR2 TP; VITA113O5 TP; ZINC57OI3 TP
--- NOTE | 2021-06-29 08:35 | NUR ---
"Rapid response" called for pt while in on sub-acute floor -- vomited coffee grounds emisis and desaturated to 85-87%. Pt stablized and brought to ER per protocol. Monitor, O2 to trach.
[2021-06-29] MEDS ORDERED: PANTOPRAZOLE SODIUM IV 40 MG in IV DEXTROSE 5% 100 ML IV ONE (08:45)
--- NOTE | 2021-06-29 08:56 | NUR ---
I CALLED [facility] TO HAVE THEM READ CHEST X-RAY. E.R. CALLED CONCERNED THAT IT'S BEEN AN HOUR AND STUDY HAS NOT BEEN READ . I ALSO LEFT A MESSAGE ON NOTES ON [employer] FOR [facility] TO CALL E.R. DOCTOR RIGHT AWAY WITH RESULTS. I WILL FOLLOW UP
--- NOTE | 2021-06-29 09:12 | NUR ---
Repory given to Sebastián of CCU, Patient room number to be CCU bed 1
[2021-06-29] MEDS ORDERED: PANTOPRAZOLE SODIUM 40 MG VIAL ONE (09:15)
--- NOTE | 2021-06-29 09:20 | NUR ---
Trach suctioned twice.
--- NOTE | 2021-06-29 09:27 | NUR ---
Report received from CATH LAB TECHNOLOGISTWILLIE Dockery.
[2021-06-29] MEDS ORDERED: LEVA1.2528 IH (09:43)
[2021-06-29] MEDS ORDERED: MERREM IV (09:51)
[2021-06-29] MEDS ORDERED: VANC750F2 IV (09:55)
[2021-06-29] MEDS ORDERED: DEXT15DR6 EACHEYE (09:55)
[2021-06-29] MEDS ORDERED: NYST15CR TP (09:55)
[2021-06-29] MEDS ORDERED: REFRESH EACHEYE (09:55)
--- NOTE | 2021-06-29 10:15 | NUR ---
PT RECEIVED WITH SHILEY 6 XLT DISTAL TRACH. PT HAS A T-PIECE AND IS ON 2LPM BUBBLE HUMIDIFIER. WILL CONTINUE TO MONITOR
--- NOTE | 2021-06-29 10:44 | NUR ---
Received patient from ER via hospital bed accompanied by AIRCRAFT ELECTRONICS TECHNICAL OFFICER and RT. Sinus tach on monitor 110-120s. Trach to oxygen 2L O2 via t-piece, trach Shiley 6 XL. Afebrile - T 98.7F. Gtube patent and clamped. Patiño catheter patent and draining via gravity. Sacral wound noted, photo taken and in chart. Noted upper right arm redness, photo taken and in chart. IV on left wrist, flushing and patent. Safety precautions in place. Aspiration precaution observed.
[2021-06-29] MEDS ORDERED: IPRATROPIUM BROMIDE 0.5 MG/2.5 ML NEBU NEB PRN (14:00)
[2021-06-29] MEDS ORDERED: DOCUSATE SODIUM 100 MG CAPSULE PO SCH (14:00)
[2021-06-29] MEDS ORDERED: ONDANSETRON ODT 4 MG TAB.RAPDIS GT PRN (14:00)
[2021-06-29] MEDS ORDERED: INSULIN REGULAR, HUMAN 300 UNIT/3 ML VIAL SQ SCH (14:00)
[2021-06-29] MEDS ORDERED: GUAIFENESIN 200 MG GT SCH (14:00)
[2021-06-29] MEDS ORDERED: ACETAMINOPHEN ES 500 MG TABLET GT PRN (14:00)
[2021-06-29] MEDS ORDERED: DEXTROSE 50% 50 ML DISP.SYRIN IV PRN (14:30)
[2021-06-29] MEDS: BACLOFEN 10 MG TABLET GT SCH ×2 (14:32→20:54)
[2021-06-29] MEDS: METOPROLOL TARTRATE 25 MG TABLET GT SCH ×2 (14:32→20:58)
[2021-06-29] MEDS ORDERED: NYSTATIN CREAM 30 GM TUBE TP PRN ×2 (14:45)
[2021-06-29] MEDS ORDERED: TRIAMCINOLONE ACET 0.1% CREAM 15 GM TUBE TP PRN (14:45)
[2021-06-29] MEDS: GUAIFENESIN SUGAR FREE 100 MG/5 ML UDC GT PRN (14:49)
[2021-06-29] MEDS: MEROPENEM 0.5 G in IV NORMAL SALINE 50 ML IV SCH ×2 (14:54→21:54)
[2021-06-29] MEDS: VANCOMYCIN IV 750 MG in IV DEXTROSE 5% 250 ML IV SCH (15:51)
--- NOTE | 2021-06-29 16:49 | NUR ---
Received okay from to restart tube feeding. HOB elevated at all time. Aspiration precautions in place.
[2021-06-29] MEDS: GLUCERNA 1.2 1000ML LIQUID GT PRN (16:50)
[2021-06-29] MEDS: BLOOD SUGAR DIAGNOSTIC 1 EACH STRIP VI SCH ×2 (17:20→23:38)
[2021-06-29] MEDS: ARGININE/GLUTAMINE/CALCIUM BMB 1 EACH POWD.PACK GT SCH (17:20)
[2021-06-29] MEDS: INSULIN REGULAR, HUMAN 300 UNIT/3 ML VIAL SQ PRN ×2 (17:33→23:39)
[2021-06-29] MEDS ORDERED: GLUTAMINE GT SCH (18:00)
[2021-06-29] MEDS ORDERED: ARGININE GT SCH (18:00)
[2021-06-29] MEDS: LEVALBUTEROL HCL 1.25 MG/0.5 ML NEB IH SCH (19:30)
--- NOTE | 2021-06-29 19:30 | NUR ---
Report received. Patient from our subacute admitted to CCU today DX: sepsis and respiratory failure. With trache Shiley #6XLT, O2 2 L by T piece. O2 saturations above 96%. Coughing. Suctioned for moderate to large amounts of whitish thick secretions. Eyes open all the times and looking up. Extremities with very slight withdrawal to pain. Assessment done. Turned and repositioned. With moderate soft brown BM. Cleaned; skin care provided. traffic monitor specialist: ST, low 100's. Addendum: 06/30/21 at 0532 by BO HILARIO RN Amended: Links added.
[2021-06-29] MEDS: IPRATROPIUM BROMIDE 0.5 MG/2.5 ML NEBU NEB SCH (19:36)
[2021-06-29] MEDS ORDERED: ACETAMINOPHEN 325 MG TABLET GT SCH (20:30)
--- NOTE | 2021-06-29 20:45 | NUR ---
Patient's father Arden called; updated of patient's condition.
[2021-06-29] MEDS: ACETAMINOPHEN 650 MG/20.3 ML LIQUID UDC GT SCH (20:53)
[2021-06-29] MEDS: FAMOTIDINE 20 MG TABLET GT SCH (20:54)
[2021-06-29] MEDS: hydrALAZINE HCL 25 MG TABLET GT SCH (20:54)
[2021-06-29] MEDS: ASCORBIC ACID 500 MG TABLET GT SCH (20:54)
[2021-06-29] MEDS: DOCUSATE SODIUM 100 MG/10 ML LIQUID UDC GT SCH (20:54)
[2021-06-29] MEDS: THIAMINE HCL 100 MG TABLET GT SCH (20:59)
[2021-06-29] MEDS: PHENOBARBITAL 32.4 MG TABLET GT SCH (20:59)
[2021-06-29] MEDS ORDERED: NYSTATIN CREAM 30 GM TUBE TP SCH ×2 (21:00)
[2021-06-29] MEDS ORDERED: SWABABLE VALVE TRANSFER SET EA MC SCH (21:00)
[2021-06-29] MEDS ORDERED: SODIUM HYPOCHLORITE 0.125% (QUARTER STRENGTH) 473 ML BOTTLE TP SCH (21:00)
[2021-06-29] MEDS: AMANTADINE HCL 50 MG/5 ML GT SCH (21:00)
[2021-06-29] MEDS ORDERED: PHENOBARBITAL GT SCH (21:00)
[2021-06-29] MEDS: levETIRAcetam 500 MG/5 ML LIQUID UDC GT SCH (21:03)
[2021-06-29] MEDS: SODIUM HYPOCHLORITE 0.125% (QUARTER STRENGTH) 473 ML BOTTLE TP SCH (21:05)
[2021-06-29] MEDS: TRIAMCINOLONE ACET 0.1% CREAM 15 GM TUBE TP SCH (21:56)
[2021-06-29] MEDS: NYSTATIN CREAM 30 GM TUBE TP SCH (21:56)
[2021-06-29] MEDS: HYDROGEN PEROXIDE 3% 118 ML BOTTLE TP SCH (21:57)
[2021-06-29] MEDS ORDERED: MEROPENEM 0.5 G in IV NORMAL SALINE 50 ML IV SCH (22:00)
--- NOTE | 2021-06-29 22:30 | NUR ---
factory maintenance technician had difficulty drawing blood for blood cultures. Order for midline received from Jaden Drew NP. Nursing supervisor plate forming notified. PICC line RN JORDEN moreau.
[2021-06-30] VITALS (27 sets, daily range): BP systolic 99–160; BP diastolic 59–94
[2021-06-30] MEDS: VANCOMYCIN IV 750 MG in IV DEXTROSE 5% 250 ML IV SCH ×4 (00:22→23:27)
[2021-06-30] MEDS ORDERED: NOREPINEPHRINE BITARTRATE 4 MG/4 ML VIAL IV ONE (00:58)
[2021-06-30] MEDS: IPRATROPIUM BROMIDE 0.5 MG/2.5 ML NEBU NEB SCH ×4 (01:04→19:49)
[2021-06-30] MEDS: LEVALBUTEROL HCL 1.25 MG/0.5 ML NEB IH SCH ×4 (01:30→19:50)
--- NOTE | 2021-06-30 01:30 | NUR ---
Midline gauge #18 inserted to ELIZABETH by Wilfredo. Blood cultures x 2 obtained.
[2021-06-30 05:08] LABS: HEMATOCRIT 32.8 % (36.7-47.1); MEAN CORPUSCULAR HEMOGLOBIN 28.9 uug (23.8-33.4); PLATELET COUNT (AUTO) 245 K/uL (152-348)
[2021-06-30 05:25] LABS: IRON, SERUM 34 ug/dL (50-175)
[2021-06-30 05:33] LABS: THYROID STIMULATING HORMONE 0.917 mIU/mL (0.358-3.740)
[2021-06-30 05:36] LABS: ALANINE AMINOTRANSFERASE 18 U/L (16-63); ALKALINE PHOSPHATASE 176 U/L (50-136); ASPARTATE AMINOTRANSFERASE 19 U/L (15-37); BILIRUBIN,TOTAL 0.3 mg/dL (0.2-1.0); CARBON DIOXIDE 31 mmol/L (21-32); CHLORIDE 102 mmol/L (98-107); CHOLESTEROL 147 mg/dL (<200); CREATININE 0.4 mg/dL (0.6-1.3); GLUCOSE 124 mg/dL (74-106); HDL CHOLESTEROL 46 mg/dL (40-60); MAGNESIUM 2.1 mg/dL (1.8-2.4); PHOSPHOROUS 3.5 mg/dL (2.5-4.9); POTASSIUM 3.8 mmol/L (3.5-5.1); TOTAL PROTEIN, SERUM 7.2 g/dL (6.4-8.2); TRIGLYCERIDES 284 MG/DL (30-150); UREA NITROGEN, BLOOD 19 mg/dL (7-18)
[2021-06-30] MEDS: BLOOD SUGAR DIAGNOSTIC 1 EACH STRIP VI SCH ×4 (06:12→23:25)
[2021-06-30] MEDS: MEROPENEM 0.5 G in IV NORMAL SALINE 50 ML IV SCH ×3 (06:12→22:02)
[2021-06-30] MEDS: ARGININE/GLUTAMINE/CALCIUM BMB 1 EACH POWD.PACK GT SCH ×2 (06:13→17:56)
--- NOTE | 2021-06-30 06:28 | NUR ---
Condition unchanged. Requires frequent trache suctioning. With moderate whitish secretions. Good cough reflex. teletypesetter monitor: SR rate 90's. Tolerating GT feeds at 40 ml/H; goal 65 ml/H. Urine output= 1100 ml x 12H. Still with marked edema of both arms; elevated on pillows. Midline gauge #18 inserted to ELIZABETH during the shift.
[2021-06-30] MEDS: hydrALAZINE HCL 25 MG TABLET GT PRN (06:37)
[2021-06-30] MEDS: DOCUSATE SODIUM 100 MG/10 ML LIQUID UDC GT SCH ×2 (08:02→20:53)
[2021-06-30] MEDS: ACETAMINOPHEN 650 MG/20.3 ML LIQUID UDC GT SCH ×2 (08:02→20:53)
[2021-06-30] MEDS: levETIRAcetam 500 MG/5 ML LIQUID UDC GT SCH ×2 (08:02→21:00)
[2021-06-30] MEDS: TERAZOSIN 1 MG CAPSULE GT SCH (08:02)
[2021-06-30] MEDS: METOPROLOL TARTRATE 25 MG TABLET GT SCH ×2 (08:03→22:02)
[2021-06-30] MEDS: FAMOTIDINE 20 MG TABLET GT SCH ×2 (08:03→20:53)
[2021-06-30] MEDS: BACLOFEN 10 MG TABLET GT SCH ×2 (08:03→20:53)
[2021-06-30] MEDS: PHENOBARBITAL 32.4 MG TABLET GT SCH ×2 (08:03→20:57)
[2021-06-30] MEDS: AMANTADINE HCL 50 MG/5 ML GT SCH ×2 (08:04→20:57)
[2021-06-30] MEDS: TRIAMCINOLONE ACET 0.1% CREAM 15 GM TUBE TP SCH ×2 (08:06→21:03)
[2021-06-30] MEDS: NYSTATIN CREAM 30 GM TUBE TP SCH ×2 (08:06→21:03)
[2021-06-30] MEDS: SODIUM HYPOCHLORITE 0.125% (QUARTER STRENGTH) 473 ML BOTTLE TP SCH ×2 (08:06→21:01)
[2021-06-30] MEDS: HYDROGEN PEROXIDE 3% 118 ML BOTTLE TP SCH ×2 (08:06→21:02)
[2021-06-30] MEDS ORDERED: Medication Not On Formulary EA (Phenobarbital 97.2 MG) GT SCH (09:00)
--- NOTE | 2021-06-30 09:17 | NUR ---
Patient's father, Arden, called to check on patient condition. Given updates and any overnight changes.
--- NOTE | 2021-06-30 11:07 | NUR ---
Seen by Dr. Peralta, pulmonology. New orders received and implemented.
[2021-06-30] MEDS: INSULIN REGULAR, HUMAN 300 UNIT/3 ML VIAL SQ PRN ×3 (11:21→23:30)
--- NOTE | 2021-06-30 18:43 | NUR ---
Patient remains hemodynamically stable. Requires frequent trach suctioning with thick, yellow secretions from trach. NSR-ST up to 110s throughout shift. Patiño patent and draining via gravity. Total urine output for entire shift - 750 ml. Gtube feeding running at 60 ml/hr - goal rate: 65 ml/hr x 22 hr. Minimal residual aspirated. HOB elevated at all times. Patient turned and repositioned q2h. Sacral wound dressing changed. Aspiration precaution observed. Safety precautions in place. Will endorse to oncoming shift.
--- NOTE | 2021-06-30 19:05 | NUR ---
Received patient in bed in semi-núñez's position. Patient is obtunded, no meaningful responses, spontaneous eye opening. Patient is on trach to oxygen, Shiley 6XL to T-Piece on 2L supplemental o2, SAT 99-100%. patient has copious secretions which he is able to cough up well. No SOB or digns of distress. ELIZABETH midline present and patent. Patient is ST/SR on the monitor, BP stable. Patiño present draining clear yellow urine. Sacral wound present covered with dressing.
--- NOTE | 2021-06-30 20:37 | NUR ---
RECEIVED PATIENT TRACHED WITH SHILEY 6 XLT DISTAL TRACH. PATIENT IS ON A T-PIECE AND IS ON 2LPM BUBBLE HUMIDIFIER. NO SOB NOTED AT THIS TIME. WILL CONTINUE TO MONITOR.
[2021-06-30] MEDS: ASCORBIC ACID 500 MG TABLET GT SCH (20:53)
[2021-06-30] MEDS: THIAMINE HCL 100 MG TABLET GT SCH (20:53)
[2021-06-30] MEDS: HEPARIN SODIUM,PORCINE 5,000 UNITS/ML VIAL SQ SCH (20:55)
[2021-06-30] MEDS: hydrALAZINE HCL 25 MG TABLET GT SCH (21:00)
[2021-06-30] MEDS: COD LIVER OIL/ZINC OXIDE OINT 113 GM TUBE TOP SCH (21:02)
[2021-07-01] VITALS (24 sets, daily range): BP systolic 108–145; BP diastolic 59–92
[2021-07-01] MEDS: IPRATROPIUM BROMIDE 0.5 MG/2.5 ML NEBU NEB SCH ×4 (00:58→20:24)
[2021-07-01] MEDS: LEVALBUTEROL HCL 1.25 MG/0.5 ML NEB IH SCH ×4 (00:58→19:30)
[2021-07-01] MEDS: GLUCERNA 1.2 1000ML LIQUID GT PRN (02:02)
[2021-07-01 05:08] LABS: MEAN CORPUSCULAR HEMOGLOBIN 28.7 uug (23.8-33.4); MEAN CORPUSCULAR VOLUME 87.6 fL (73.0-96.2); PLATELET COUNT (AUTO) 242 K/uL (152-348)
[2021-07-01 05:33] LABS: CARBON DIOXIDE 31 mmol/L (21-32); CHLORIDE 100 mmol/L (98-107); CREATININE 0.4 mg/dL (0.6-1.3); GLUCOSE 116 mg/dL (74-106); MAGNESIUM 2.2 mg/dL (1.8-2.4); PHOSPHOROUS 3.3 mg/dL (2.5-4.9); POTASSIUM 4.2 mmol/L (3.5-5.1); UREA NITROGEN, BLOOD 19 mg/dL (7-18)
[2021-07-01] MEDS: MEROPENEM 0.5 G in IV NORMAL SALINE 50 ML IV SCH ×3 (05:41→21:31)
[2021-07-01] MEDS: ARGININE/GLUTAMINE/CALCIUM BMB 1 EACH POWD.PACK GT SCH ×2 (05:41→17:51)
[2021-07-01] MEDS: BLOOD SUGAR DIAGNOSTIC 1 EACH STRIP VI SCH ×4 (05:49→23:41)
[2021-07-01] MEDS: ACETAMINOPHEN 650 MG/20.3 ML LIQUID UDC GT SCH ×2 (07:52→20:25)
[2021-07-01] MEDS: METOPROLOL TARTRATE 25 MG TABLET GT SCH ×2 (07:53→20:25)
[2021-07-01] MEDS: PHENOBARBITAL 32.4 MG TABLET GT SCH ×2 (07:53→20:26)
[2021-07-01] MEDS: BACLOFEN 10 MG TABLET GT SCH ×2 (07:53→20:25)
[2021-07-01] MEDS: DOCUSATE SODIUM 100 MG/10 ML LIQUID UDC GT SCH ×2 (07:53→20:26)
[2021-07-01] MEDS: FAMOTIDINE 20 MG TABLET GT SCH ×2 (07:53→20:25)
[2021-07-01] MEDS: levETIRAcetam 500 MG/5 ML LIQUID UDC GT SCH ×2 (07:54→20:27)
[2021-07-01] MEDS: AMANTADINE HCL 50 MG/5 ML GT SCH ×2 (07:54→20:27)
[2021-07-01] MEDS: VANCOMYCIN IV 750 MG in IV DEXTROSE 5% 250 ML IV SCH ×3 (07:56→23:48)
[2021-07-01] MEDS: NYSTATIN CREAM 30 GM TUBE TP SCH ×2 (07:56→20:29)
[2021-07-01] MEDS: TRIAMCINOLONE ACET 0.1% CREAM 15 GM TUBE TP SCH ×2 (07:56→20:30)
[2021-07-01] MEDS: TERAZOSIN 1 MG CAPSULE GT SCH (07:58)
[2021-07-01] MEDS: SODIUM HYPOCHLORITE 0.125% (QUARTER STRENGTH) 473 ML BOTTLE TP SCH ×3 (07:58→20:32)
[2021-07-01] MEDS: HEPARIN SODIUM,PORCINE 5,000 UNITS/ML VIAL SQ SCH ×2 (08:01→20:44)
[2021-07-01] MEDS: HYDROGEN PEROXIDE 3% 118 ML BOTTLE TP SCH ×2 (08:29→20:52)
[2021-07-01] MEDS: COD LIVER OIL/ZINC OXIDE OINT 113 GM TUBE TOP SCH ×2 (08:29→20:53)
[2021-07-01 09:11] LABS: ABG BASE EXCESS 8.3 mmol/L; ABG HCO3 32.6 mmol/L; ABG PCO2 44.2 mmHg (35.0-45.0); ABG PH 7.486 (7.350-7.450); ABG PO2 104.4 mmHg (75.0-100.0); ABG SITE RIGHT RADIAL; COHb 0.4 % (0.5-1.5); MetHb 0.2 % (0.0-1.5); O2Hb 97.7 % (94.0-97.0)
[2021-07-01] MEDS: INSULIN REGULAR, HUMAN 300 UNIT/3 ML VIAL SQ PRN ×3 (12:36→23:41)
[2021-07-01 12:51] LABS: *OCCULT BLOOD STOOL NEGATIVE (NEGATIVE)
[2021-07-01] MEDS: GUAIFENESIN SUGAR FREE 100 MG/5 ML UDC GT PRN (13:12)
--- NOTE | 2021-07-01 14:00 | NUR ---
WOUND CARE CONSULT: PT PRESENTS WITH STAGE 4 SACRAL ULCER, PRESENT ON ADMISSION. RECOMMENDATIONS MADE FOR WOUND CARE AND SKIN PROTECTION. DISCUSSED WITH NURSING STAFF AND LIZA MAYORGA N.P. CURRENTLY ON CASE. PT IS ON FIRST STEP BONNIE HOANG MD IN AGREEMENT WITH PLAN OF CARE. Addendum: 07/01/21 at 1401 by CANDY PATRICIO RN Amended: Links added.
--- NOTE | 2021-07-01 18:41 | NUR ---
No acute changes. Remains in same neurological state. Sinus Tachy/Sinus rhythm - metoprolol seems to work as intended, maybe an increased dose could be beneficial. BPs stable w/o pressor support. afebrile. On T-piece - 2L ---Large amounts of thick secretions - orally, ett tube, and around stoma. GI/: Bm x 1 - 1150 clear yellow urine output. tolerating feedings adequately. NO COFFEE GROUND EMESIS.
--- NOTE | 2021-07-01 19:20 | NUR ---
Report received. Patient awake, agitated, coughing, tachycardic and tachypneic. Suctioned via trache for moderate pale yellowish whitish secretions. Turned and repositioned. Skin care provided. HOB elevated above 30 degrees at all times. Medicated with Ativan via patent GT. Assessment completed. Addendum: 07/01/21 at 2200 by BO HILARIO RN Amended: Links added. Addendum: 07/01/21 at 2201 by OB HILARIO RN Amended: Links added.
[2021-07-01] MEDS: LORAZEPAM 1 MG TABLET GT PRN (19:22)
[2021-07-01] MEDS: THIAMINE HCL 100 MG TABLET GT SCH (20:25)
[2021-07-01] MEDS: hydrALAZINE HCL 25 MG TABLET GT SCH (20:25)
[2021-07-01] MEDS: ASCORBIC ACID 500 MG TABLET GT SCH (20:26)
[2021-07-02] VITALS (24 sets, daily range): BP systolic 109–173; BP diastolic 55–96
[2021-07-02] MEDS: IPRATROPIUM BROMIDE 0.5 MG/2.5 ML NEBU NEB SCH ×4 (01:14→20:19)
[2021-07-02] MEDS: LEVALBUTEROL HCL 1.25 MG/0.5 ML NEB IH SCH ×4 (01:15→19:30)
[2021-07-02] MEDS: GLUCERNA 1.2 1000ML LIQUID GT PRN (04:13)
[2021-07-02 04:57] LABS: HEMATOCRIT 34.9 % (36.7-47.1); MEAN CORPUSCULAR HEMOGLOBIN 28.6 uug (23.8-33.4); MEAN CORPUSCULAR VOLUME 88.5 fL (73.0-96.2); PLATELET COUNT (AUTO) 197 K/uL (152-348)
[2021-07-02] MEDS: GUAIFENESIN SUGAR FREE 100 MG/5 ML UDC GT PRN (05:05)
[2021-07-02] MEDS: LORAZEPAM 1 MG TABLET GT PRN (05:05)
[2021-07-02] MEDS: MEROPENEM 0.5 G in IV NORMAL SALINE 50 ML IV SCH ×3 (05:10→21:21)
[2021-07-02] MEDS: ARGININE/GLUTAMINE/CALCIUM BMB 1 EACH POWD.PACK GT SCH ×2 (05:10→17:08)
[2021-07-02] MEDS: BLOOD SUGAR DIAGNOSTIC 1 EACH STRIP VI SCH ×4 (05:10→23:55)
[2021-07-02 05:11] LABS: CARBON DIOXIDE 29 mmol/L (21-32); CHLORIDE 101 mmol/L (98-107); CREATININE 0.4 mg/dL (0.6-1.3); GLUCOSE 110 mg/dL (74-106); MAGNESIUM 2.5 mg/dL (1.8-2.4); PHOSPHOROUS 3.7 mg/dL (2.5-4.9); POTASSIUM 4.4 mmol/L (3.5-5.1); UREA NITROGEN, BLOOD 19 mg/dL (7-18)
--- NOTE | 2021-07-02 06:30 | NUR ---
Agitated. Tachypneic, tachycardic. Has been medicated with Ativan and Robitussin via GT. Suctioned and monitored closely.
[2021-07-02] MEDS: HYDROCODONE/APAP 5-325MG TABLET GT PRN (07:02)
--- NOTE | 2021-07-02 07:02 | NUR ---
Remains agitated. Medicated with [place]. Report given to Gladis TAPIA.
[2021-07-02] MEDS: VANCOMYCIN IV 750 MG in IV DEXTROSE 5% 250 ML IV SCH ×3 (08:02→23:54)
[2021-07-02] MEDS: DOCUSATE SODIUM 100 MG/10 ML LIQUID UDC GT SCH ×2 (08:03→20:44)
[2021-07-02] MEDS: TERAZOSIN 1 MG CAPSULE GT SCH (08:03)
[2021-07-02] MEDS: ACETAMINOPHEN 650 MG/20.3 ML LIQUID UDC GT SCH ×2 (08:03→20:44)
[2021-07-02] MEDS: METOPROLOL TARTRATE 25 MG TABLET GT SCH ×2 (08:04→21:05)
[2021-07-02] MEDS: BACLOFEN 10 MG TABLET GT SCH ×2 (08:04→20:46)
[2021-07-02] MEDS: FAMOTIDINE 20 MG TABLET GT SCH ×2 (08:05→20:46)
[2021-07-02] MEDS: PHENOBARBITAL 32.4 MG TABLET GT SCH ×2 (08:05→21:18)
[2021-07-02] MEDS: HYDROGEN PEROXIDE 3% 118 ML BOTTLE TP SCH ×2 (08:06→21:00)
[2021-07-02] MEDS: AMANTADINE HCL 50 MG/5 ML GT SCH ×2 (08:06→20:56)
[2021-07-02] MEDS: TRIAMCINOLONE ACET 0.1% CREAM 15 GM TUBE TP SCH ×2 (08:07→20:45)
[2021-07-02] MEDS: COD LIVER OIL/ZINC OXIDE OINT 113 GM TUBE TOP SCH ×2 (08:07→20:58)
[2021-07-02] MEDS: NYSTATIN CREAM 30 GM TUBE TP SCH ×2 (08:08→20:45)
[2021-07-02] MEDS: SODIUM HYPOCHLORITE 0.125% (QUARTER STRENGTH) 473 ML BOTTLE TP SCH ×3 (08:08→21:01)
[2021-07-02] MEDS: HEPARIN SODIUM,PORCINE 5,000 UNITS/ML VIAL SQ SCH ×2 (08:16→20:48)
[2021-07-02] MEDS: levETIRAcetam 500 MG/5 ML LIQUID UDC GT SCH ×2 (08:18→21:09)
[2021-07-02] MEDS: INSULIN REGULAR, HUMAN 300 UNIT/3 ML VIAL SQ PRN ×2 (12:55→18:55)
[2021-07-02] MEDS: IV NORMAL SALINE 250 ML IV PRN (19:00)
[2021-07-02] MEDS: ASCORBIC ACID 500 MG TABLET GT SCH (20:46)
[2021-07-02] MEDS: hydrALAZINE HCL 25 MG TABLET GT SCH (20:46)
[2021-07-02] MEDS: THIAMINE HCL 100 MG TABLET GT SCH (21:05)
[2021-07-03] VITALS (24 sets, daily range): BP systolic 122–169; BP diastolic 60–94
[2021-07-03] MEDS: IPRATROPIUM BROMIDE 0.5 MG/2.5 ML NEBU NEB SCH ×4 (00:26→20:20)
[2021-07-03] MEDS: LEVALBUTEROL HCL 1.25 MG/0.5 ML NEB IH SCH ×4 (00:28→19:30)
[2021-07-03] MEDS: hydrALAZINE HCL 25 MG TABLET GT PRN (05:27)
[2021-07-03] MEDS: HYDROCODONE/APAP 5-325MG TABLET GT PRN (05:29)
[2021-07-03] MEDS: ARGININE/GLUTAMINE/CALCIUM BMB 1 EACH POWD.PACK GT SCH ×2 (05:30→17:26)
[2021-07-03] MEDS: GLUCERNA 1.2 1000ML LIQUID GT PRN (06:00)
[2021-07-03] MEDS: IV NORMAL SALINE 250 ML IV PRN (06:17)
[2021-07-03] MEDS: INSULIN REGULAR, HUMAN 300 UNIT/3 ML VIAL SQ PRN ×2 (06:28→12:09)
[2021-07-03] MEDS: BLOOD SUGAR DIAGNOSTIC 1 EACH STRIP VI SCH ×3 (06:28→17:26)
[2021-07-03 06:36] LABS: CARBON DIOXIDE 32 mmol/L (21-32); CHLORIDE 101 mmol/L (98-107); CREATININE 0.5 mg/dL (0.6-1.3); GLUCOSE 148 mg/dL (74-106); POTASSIUM 4.3 mmol/L (3.5-5.1); UREA NITROGEN, BLOOD 17 mg/dL (7-18)
[2021-07-03] MEDS: CEFEPIME HCL 1 G in IV DEXTROSE 5% 50 ML IV SCH ×3 (06:57→21:28)
[2021-07-03] MEDS: VANCOMYCIN IV 750 MG in IV DEXTROSE 5% 250 ML IV SCH (07:45)
--- NOTE | 2021-07-03 07:45 | NUR ---
Vancomycin trough 23.7. Called to inform pharmacy. Per Pharmacist, hold 0800 dose of vancomycin.
[2021-07-03] MEDS: ACETAMINOPHEN 650 MG/20.3 ML LIQUID UDC GT SCH ×2 (07:56→20:49)
[2021-07-03] MEDS: BACLOFEN 10 MG TABLET GT SCH ×2 (08:08→20:50)
[2021-07-03] MEDS: METOPROLOL TARTRATE 25 MG TABLET GT SCH ×2 (08:08→21:02)
[2021-07-03] MEDS: FAMOTIDINE 20 MG TABLET GT SCH ×2 (08:08→20:50)
[2021-07-03] MEDS: DOCUSATE SODIUM 100 MG/10 ML LIQUID UDC GT SCH ×2 (08:08→20:47)
[2021-07-03] MEDS: levETIRAcetam 500 MG/5 ML LIQUID UDC GT SCH ×2 (08:09→21:00)
[2021-07-03] MEDS: TERAZOSIN 1 MG CAPSULE GT SCH (08:09)
[2021-07-03] MEDS: PHENOBARBITAL 32.4 MG TABLET GT SCH ×2 (08:09→21:01)
[2021-07-03] MEDS: AMANTADINE HCL 50 MG/5 ML GT SCH ×2 (08:10→21:08)
[2021-07-03] MEDS: COD LIVER OIL/ZINC OXIDE OINT 113 GM TUBE TOP SCH ×2 (08:10→21:29)
[2021-07-03] MEDS: SODIUM HYPOCHLORITE 0.125% (QUARTER STRENGTH) 473 ML BOTTLE TP SCH ×3 (08:11→21:30)
[2021-07-03] MEDS: TRIAMCINOLONE ACET 0.1% CREAM 15 GM TUBE TP SCH ×2 (08:11→21:00)
[2021-07-03] MEDS: NYSTATIN CREAM 30 GM TUBE TP SCH ×2 (08:11→21:30)
[2021-07-03] MEDS: HEPARIN SODIUM,PORCINE 5,000 UNITS/ML VIAL SQ SCH ×2 (08:16→21:10)
--- NOTE | 2021-07-03 08:46 | NUR ---
0800 temp 99.7 - given scheduled tylenol and removed covers. Will continue to closely monitor temperature.
[2021-07-03] MEDS: HYDROGEN PEROXIDE 3% 118 ML BOTTLE TP SCH ×2 (09:28→21:00)
--- NOTE | 2021-07-03 09:37 | NUR ---
Seen by Dr Peralta, pulmonology. No new orders received at this time.
[2021-07-03] MEDS: VANCOMYCIN IV 1,000 MG in IV DEXTROSE 5% 250 ML IV SCH (11:36)
--- NOTE | 2021-07-03 12:09 | NUR ---
Large BM x 1. Sacral area cleaned and dressing changed as ordered.
[2021-07-03] MEDS: GUAIFENESIN SUGAR FREE 100 MG/5 ML UDC GT PRN ×2 (13:07→20:51)
[2021-07-03] MEDS: hydrALAZINE HCL 25 MG TABLET GT SCH (20:50)
[2021-07-03] MEDS: ASCORBIC ACID 500 MG TABLET GT SCH (20:50)
[2021-07-03] MEDS: THIAMINE HCL 100 MG TABLET GT SCH (21:01)
[2021-07-03] MEDS ORDERED: levETIRAcetam 500 MG/5 ML LIQUID UDC ONE (22:11)
[2021-07-04] VITALS (24 sets, daily range): BP systolic 111–169; BP diastolic 60–99
[2021-07-04] MEDS: BLOOD SUGAR DIAGNOSTIC 1 EACH STRIP VI SCH ×4 (00:09→17:05)
[2021-07-04] MEDS: INSULIN REGULAR, HUMAN 300 UNIT/3 ML VIAL SQ PRN ×3 (00:12→17:07)
[2021-07-04] MEDS: VANCOMYCIN IV 1,000 MG in IV DEXTROSE 5% 250 ML IV SCH ×3 (00:12→23:59)
[2021-07-04] MEDS: IPRATROPIUM BROMIDE 0.5 MG/2.5 ML NEBU NEB SCH ×4 (00:25→19:38)
[2021-07-04] MEDS: LEVALBUTEROL HCL 1.25 MG/0.5 ML NEB IH SCH ×4 (00:26→19:38)
[2021-07-04] MEDS: hydrALAZINE HCL 25 MG TABLET GT PRN ×2 (03:35→12:10)
[2021-07-04] MEDS: ARGININE/GLUTAMINE/CALCIUM BMB 1 EACH POWD.PACK GT SCH ×2 (05:11→17:08)
[2021-07-04] MEDS: CEFEPIME HCL 1 G in IV DEXTROSE 5% 50 ML IV SCH ×3 (05:14→21:20)
[2021-07-04] MEDS: ACETAMINOPHEN 650 MG/20.3 ML LIQUID UDC GT SCH ×2 (07:42→20:11)
--- NOTE | 2021-07-04 07:52 | NUR ---
Received patient tachycardic HR 130-140, warm to the touch. Rectal temp 101.1 - cooling measures initiated. Scheduled 0830 tylenol given as ordered.
[2021-07-04] MEDS: DOCUSATE SODIUM 100 MG/10 ML LIQUID UDC GT SCH ×2 (08:08→20:12)
[2021-07-04] MEDS: METOPROLOL TARTRATE 25 MG TABLET GT SCH ×2 (08:08→20:12)
[2021-07-04] MEDS: FAMOTIDINE 20 MG TABLET GT SCH ×2 (08:08→20:12)
[2021-07-04] MEDS: BACLOFEN 10 MG TABLET GT SCH ×2 (08:08→20:12)
[2021-07-04] MEDS: PHENOBARBITAL 32.4 MG TABLET GT SCH ×2 (08:08→20:13)
[2021-07-04] MEDS: AMANTADINE HCL 50 MG/5 ML GT SCH ×2 (08:09→20:16)
[2021-07-04] MEDS: SODIUM HYPOCHLORITE 0.125% (QUARTER STRENGTH) 473 ML BOTTLE TP SCH ×3 (08:10→20:17)
[2021-07-04] MEDS: COD LIVER OIL/ZINC OXIDE OINT 113 GM TUBE TOP SCH ×2 (08:10→21:35)
--- NOTE | 2021-07-04 08:10 | NUR ---
Received new orders from . Blood culture and sputum culture sent to lab.
[2021-07-04] MEDS: NYSTATIN CREAM 30 GM TUBE TP SCH ×2 (08:11→21:37)
[2021-07-04] MEDS: TRIAMCINOLONE ACET 0.1% CREAM 15 GM TUBE TP SCH ×2 (08:11→21:38)
[2021-07-04] MEDS: HEPARIN SODIUM,PORCINE 5,000 UNITS/ML VIAL SQ SCH ×2 (08:12→20:14)
[2021-07-04 08:15] LABS: MEAN CORPUSCULAR HEMOGLOBIN 29.1 uug (23.8-33.4); MEAN CORPUSCULAR VOLUME 87.4 fL (73.0-96.2); PLATELET COUNT (AUTO) 259 K/uL (152-348)
[2021-07-04 08:16] LABS: CARBON DIOXIDE 30 mmol/L (21-32); CHLORIDE 97 mmol/L (98-107); CREATININE 0.4 mg/dL (0.6-1.3); GLUCOSE 172 mg/dL (74-106); POTASSIUM 4.2 mmol/L (3.5-5.1); UREA NITROGEN, BLOOD 25 mg/dL (7-18)
[2021-07-04] MEDS: TERAZOSIN 1 MG CAPSULE GT SCH (08:33)
[2021-07-04] MEDS: LORAZEPAM 1 MG TABLET GT PRN (08:33)
[2021-07-04] MEDS: HYDROCODONE/APAP 5-325MG TABLET GT PRN (08:33)
[2021-07-04] MEDS: levETIRAcetam 500 MG/5 ML LIQUID UDC GT SCH ×2 (09:10→20:15)
[2021-07-04] MEDS: IV NORMAL SALINE 250 ML IV PRN (09:33)
[2021-07-04] MEDS: HYDROGEN PEROXIDE 3% 118 ML BOTTLE TP SCH ×2 (09:38→20:17)
[2021-07-04] MEDS: GUAIFENESIN SUGAR FREE 100 MG/5 ML UDC GT PRN (18:37)
--- NOTE | 2021-07-04 19:10 | NUR ---
RECEIVED PATIENT OBTUNDED , WITH ALL EXTREMITIES CONTRACTED AND RIGID , GT OF GLUCERNA 1.2 AT 65 ML , NO RESIDUAL NOTED , NO FEVER NOTED , NO SEIZURE NOTED , T PIECE AT 2. 5 L , HERRON AND IV INTACT , HR 111 , SBP 128/61 RR 32 , SATURATING AT 100 %
[2021-07-04] MEDS: hydrALAZINE HCL 25 MG TABLET GT SCH (20:11)
[2021-07-04] MEDS: THIAMINE HCL 100 MG TABLET GT SCH (20:13)
[2021-07-04] MEDS: ASCORBIC ACID 500 MG TABLET GT SCH (20:13)
--- NOTE | 2021-07-04 20:42 | NUR ---
oxana id is here to see patient
--- NOTE | 2021-07-04 23:56 | NUR ---
outside pharmacy was called and spoke to hodan regarding dose of vanco tonight for mn , was told to give the dose , informed of vanco through level date and time
[2021-07-05] VITALS (20 sets, daily range): BP systolic 120–158; BP diastolic 62–92
[2021-07-05] MEDS: INSULIN REGULAR, HUMAN 300 UNIT/3 ML VIAL SQ PRN ×4 (00:03→17:19)
[2021-07-05] MEDS: LEVALBUTEROL HCL 1.25 MG/0.5 ML NEB IH SCH ×4 (01:09→19:36)
[2021-07-05] MEDS: IPRATROPIUM BROMIDE 0.5 MG/2.5 ML NEBU NEB SCH ×4 (01:09→19:36)
[2021-07-05 05:17] LABS: HEMATOCRIT 33.4 % (36.7-47.1); MEAN CORPUSCULAR VOLUME 87.6 fL (73.0-96.2); PLATELET COUNT (AUTO) 245 K/uL (152-348)
[2021-07-05 05:20] LABS: CARBON DIOXIDE 32 mmol/L (21-32); CHLORIDE 97 mmol/L (98-107); CREATININE 0.4 mg/dL (0.6-1.3); GLUCOSE 135 mg/dL (74-106); MAGNESIUM 2.1 mg/dL (1.8-2.4); PHOSPHOROUS 3.6 mg/dL (2.5-4.9); POTASSIUM 4.1 mmol/L (3.5-5.1); UREA NITROGEN, BLOOD 20 mg/dL (7-18)
[2021-07-05] MEDS: CEFEPIME HCL 1 G in IV DEXTROSE 5% 50 ML IV SCH ×3 (06:27→21:47)
[2021-07-05] MEDS: BLOOD SUGAR DIAGNOSTIC 1 EACH STRIP VI SCH ×4 (06:28→17:18)
[2021-07-05] MEDS: ARGININE/GLUTAMINE/CALCIUM BMB 1 EACH POWD.PACK GT SCH ×2 (06:30→17:13)
--- NOTE | 2021-07-05 06:30 | NUR ---
with spontaneous eye opening , unable to follow command , gt was held per order of 65 ml x 22 hours , no residual noted , thomas and iv intact , no fever seizure noted , suctioned thick secretions on the trach , t piece on 2l , saturating 100 % , hr 111 sbp 153/ 88 rr 28 , bs 124 no coverage
--- NOTE | 2021-07-05 07:30 | NUR ---
PATIENT ALERT WITH O2 AT 2L VIA TRACH SATURATING 100%. NO SS OF DISTRESS OR PAIN. CONTINUE IV ANTIBIOTIC ORDER, GLUCERNA FEEDING VIA GT TOLERATING WELL
[2021-07-05] MEDS: TERAZOSIN 1 MG CAPSULE GT SCH (08:27)
[2021-07-05] MEDS: DOCUSATE SODIUM 100 MG/10 ML LIQUID UDC GT SCH ×2 (08:28→20:45)
[2021-07-05] MEDS: BACLOFEN 10 MG TABLET GT SCH ×2 (08:28→20:46)
[2021-07-05] MEDS: ACETAMINOPHEN 650 MG/20.3 ML LIQUID UDC GT SCH ×2 (08:28→20:44)
[2021-07-05] MEDS: FAMOTIDINE 20 MG TABLET GT SCH ×2 (08:28→20:46)
[2021-07-05] MEDS: PHENOBARBITAL 32.4 MG TABLET GT SCH ×2 (08:28→20:47)
[2021-07-05] MEDS: levETIRAcetam 500 MG/5 ML LIQUID UDC GT SCH ×2 (08:29→20:46)
[2021-07-05] MEDS: METOPROLOL TARTRATE 25 MG TABLET GT SCH ×2 (08:29→20:46)
[2021-07-05] MEDS: HEPARIN SODIUM,PORCINE 5,000 UNITS/ML VIAL SQ SCH ×2 (08:30→20:48)
[2021-07-05] MEDS: COD LIVER OIL/ZINC OXIDE OINT 113 GM TUBE TOP SCH (08:31)
[2021-07-05] MEDS: AMANTADINE HCL 50 MG/5 ML GT SCH ×2 (08:32→22:02)
[2021-07-05] MEDS: SODIUM HYPOCHLORITE 0.125% (QUARTER STRENGTH) 473 ML BOTTLE TP SCH ×2 (08:32→08:33)
[2021-07-05] MEDS: HYDROGEN PEROXIDE 3% 118 ML BOTTLE TP SCH ×2 (08:33→21:00)
[2021-07-05] MEDS: TRIAMCINOLONE ACET 0.1% CREAM 15 GM TUBE TP SCH (08:34)
[2021-07-05] MEDS: NYSTATIN CREAM 30 GM TUBE TP SCH (08:34)
[2021-07-05] MEDS: VANCOMYCIN IV 1,000 MG in IV DEXTROSE 5% 250 ML IV SCH (11:27)
[2021-07-05] MEDS: GLUCERNA 1.2 1000ML LIQUID GT PRN (11:38)
--- NOTE | 2021-07-05 12:00 | NUR ---
SEEN NBY DR WEBSTER FOR PULMO FOLLOW-UP SEE NOTES
--- NOTE | 2021-07-05 17:29 | NUR ---
PER HOSPITALIST PATIENT NEEDS TO STAY CCU FOR NOW DUE TO LOW GRADE FEVER FROM FOLLOW UP SPECIALIST. PATIENT STILL NEEDS A LOT OF SUCTIONING VIA TRACH WITH MODERATE TO LARGE AMOUNT OF THICK SECRETIONS. CONTINUE CCU MONITORING
--- NOTE | 2021-07-05 19:15 | NUR ---
received patient awake with spontaneous eye opening , no seizure , no fever noted , gt feeding running at 65 ml , no residual noted , dressing on the sacral intact , secretions suctioned via trach and oral , ic intact and thomas draining
[2021-07-05] MEDS: hydrALAZINE HCL 25 MG TABLET GT SCH (20:45)
[2021-07-05] MEDS: THIAMINE HCL 100 MG TABLET GT SCH (20:47)
[2021-07-05] MEDS: ASCORBIC ACID 500 MG TABLET GT SCH (20:47)
[2021-07-05] MEDS: SODIUM HYPOCHLORITE 0.125% (QUARTER STRENGTH) 473 ML BOTTLE TP PRN (22:06)
[2021-07-06] VITALS (17 sets, daily range): BP systolic 105–152; BP diastolic 62–87
[2021-07-06] MEDS: NYSTATIN CREAM 30 GM TUBE TP SCH ×2 (00:01→08:56)
[2021-07-06] MEDS: TRIAMCINOLONE ACET 0.1% CREAM 15 GM TUBE TP SCH ×2 (00:01→08:56)
[2021-07-06] MEDS: SODIUM HYPOCHLORITE 0.125% (QUARTER STRENGTH) 473 ML BOTTLE TP SCH ×3 (00:02→08:48)
[2021-07-06] MEDS: COD LIVER OIL/ZINC OXIDE OINT 113 GM TUBE TOP SCH ×2 (00:02→08:46)
[2021-07-06] MEDS: VANCOMYCIN IV 1,000 MG in IV DEXTROSE 5% 250 ML IV SCH ×2 (00:08→12:13)
[2021-07-06] MEDS: BLOOD SUGAR DIAGNOSTIC 1 EACH STRIP VI SCH ×4 (00:12→17:16)
[2021-07-06] MEDS: INSULIN REGULAR, HUMAN 300 UNIT/3 ML VIAL SQ PRN ×4 (00:18→17:18)
[2021-07-06] MEDS: LEVALBUTEROL HCL 1.25 MG/0.5 ML NEB IH SCH ×3 (00:40→13:37)
[2021-07-06] MEDS: IPRATROPIUM BROMIDE 0.5 MG/2.5 ML NEBU NEB SCH ×3 (00:40→13:36)
[2021-07-06] MEDS: LORAZEPAM 1 MG TABLET GT PRN (02:38)
[2021-07-06 05:40] LABS: HEMATOCRIT 32.8 % (36.7-47.1); MEAN CORPUSCULAR HEMOGLOBIN 29.4 uug (23.8-33.4); MEAN CORPUSCULAR VOLUME 88.6 fL (73.0-96.2); PLATELET COUNT (AUTO) 220 K/uL (152-348)
[2021-07-06 06:09] LABS: CARBON DIOXIDE 31 mmol/L (21-32); CHLORIDE 98 mmol/L (98-107); CREATININE 0.4 mg/dL (0.6-1.3); GLUCOSE 133 mg/dL (74-106); POTASSIUM 4.2 mmol/L (3.5-5.1); UREA NITROGEN, BLOOD 13 mg/dL (7-18)
[2021-07-06 06:24] LABS: MAGNESIUM 2.4 mg/dL (1.8-2.4)
[2021-07-06] MEDS: HYDROCODONE/APAP 5-325MG TABLET GT PRN (06:28)
[2021-07-06] MEDS: CEFEPIME HCL 1 G in IV DEXTROSE 5% 50 ML IV SCH ×2 (06:29→14:16)
[2021-07-06] MEDS: ARGININE/GLUTAMINE/CALCIUM BMB 1 EACH POWD.PACK GT SCH ×2 (06:30→17:19)
[2021-07-06] MEDS: levETIRAcetam 500 MG/5 ML LIQUID UDC GT SCH (08:39)
[2021-07-06] MEDS: ACETAMINOPHEN 650 MG/20.3 ML LIQUID UDC GT SCH (08:40)
[2021-07-06] MEDS: DOCUSATE SODIUM 100 MG/10 ML LIQUID UDC GT SCH (08:40)
[2021-07-06] MEDS: FAMOTIDINE 20 MG TABLET GT SCH (08:41)
[2021-07-06] MEDS: METOPROLOL TARTRATE 25 MG TABLET GT SCH (08:42)
[2021-07-06] MEDS: PHENOBARBITAL 32.4 MG TABLET GT SCH (08:42)
[2021-07-06] MEDS: BACLOFEN 10 MG TABLET GT SCH (08:42)
[2021-07-06] MEDS: TERAZOSIN 1 MG CAPSULE GT SCH (08:43)
[2021-07-06] MEDS: AMANTADINE HCL 50 MG/5 ML GT SCH (08:44)
[2021-07-06] MEDS: SODIUM HYPOCHLORITE 0.125% (QUARTER STRENGTH) 473 ML BOTTLE TP PRN (08:44)
[2021-07-06] MEDS: HYDROGEN PEROXIDE 3% 118 ML BOTTLE TP SCH (08:49)
[2021-07-06] MEDS: HEPARIN SODIUM,PORCINE 5,000 UNITS/ML VIAL SQ SCH (09:00)
--- NOTE | 2021-07-06 10:00 | NUR ---
plan for discharge back to subacute today.
--- NOTE | 2021-07-06 14:00 | NUR ---
spoke to Dr. Emery to clarify if this patient will be discharge today. Is aware and will do the discharge.
--- NOTE | 2021-07-06 15:36 | NUR ---
After awaiting for dcd to sub-acute orders since this morning a call to Dr. Lagunas's Cell phone and inquire to have an order "as stated by . I told the nurse this morning I'm gonna get to dcd when I'm gonna dcd the patient, wait for me to put the orders". insulation power unit tender Reji informed.
[2021-07-06] MEDS ORDERED: CEFE1FRO IV (16:05)
--- NOTE | 2021-07-06 16:30 | NUR ---
report given to Alysia TAPIA. wound care done and 1800 blood sugar will be done prior to transfer with coverage
== END 2021-07-06 17:30 | DRG 720 ==
LOC: ER 08:19 → CCU 09:25
PROVIDERS: ADMIT Internal Medicine; ATTEND Internal Medicine
PROC: B546ZZA Ultrasonography of Right Subclavian Vein, Guidance (ICD-10-PCS; principal; 2021-06-30)
PROC: 05H533Z Insertion of Infusion Device into Right Subclavian Vein, Percutaneous Approach (ICD-10-PCS; principal; 2021-06-30)
DX: A41.9 Sepsis, unspecified organism (principal); J96.21 Acute and chronic respiratory failure with hypoxia; J69.0 Pneumonitis due to inhalation of food and vomit; R40.3 Persistent vegetative state; E43 Unspecified severe protein-calorie malnutrition; G93.1 Anoxic brain damage, not elsewhere classified; R53.2 Functional quadriplegia; L89.154 Pressure ulcer of sacral region, stage 4; K92.2 Gastrointestinal hemorrhage, unspecified; Z93.0 Tracheostomy status; Z99.11 Dependence on respirator [ventilator] status; D68.59 Other primary thrombophilia; Z86.74 Personal history of sudden cardiac arrest; N39.0 Urinary tract infection, site not specified; G40.909 Epilepsy, unspecified, not intractable, without status epilepticus; D64.9 Anemia, unspecified; E11.9 Type 2 diabetes mellitus without complications; E78.5 Hyperlipidemia, unspecified; I48.0 Paroxysmal atrial fibrillation; I70.0 Atherosclerosis of aorta; J44.9 Chronic obstructive pulmonary disease, unspecified; R13.10 Dysphagia, unspecified; Z20.822 Contact with and (suspected) exposure to COVID-19; Z79.4 Long term (current) use of insulin; Z88.0 Allergy status to penicillin; Z88.5 Allergy status to narcotic agent; Z87.891 Personal history of nicotine dependence; Z93.1 Gastrostomy status; Z86.73 Personal history of transient ischemic attack (TIA), and cerebral infarction without residual deficits; I10 Essential (primary) hypertension; T17.990A Other foreign object in respiratory tract, part unspecified in causing asphyxiation, initial encounter; X58.XXXA Exposure to other specified factors, initial encounter; Y93.9 Activity, unspecified; Y92.129 Unspecified place in nursing home as the place of occurrence of the external cause; Z68.1 Body mass index [BMI] 19.9 or less, adult; Z86.14 Personal history of Methicillin resistant Staphylococcus aureus infection
CPT/HCPCS: 36415; 36600; 70030-TC; 71045; 80200; 83550; 83605; 83735; 84100; 84443; 85025; 86140; 87040; 87070; 87077; 87086; 94640; A4663; A6209; A9150; C9113; G0378; J0692; J1644; J1815; J2185; J3370; J3490; J3590; J7050; J7060; Q0162

== ENCOUNTER 2021-07-06 18:26 | Inpatient (IN) | payer MEDICAID ==
[~2021-07-06] VITALS: Ht 165.1 cm; Wt 62.6 kg
--- NOTE | 2021-07-06 17:53 | NUR ---
PT ADMITTED FROM [facility] CCU,WITH ADMITTING DIAGNOSIS,RESPIRATORY FAILURE,SEPSIS,UTI,HX OF FEVER,NO RESPIRATORY DISTRESS NOTED HAS TRACH SHILEY #6 XLT,SUCTIONED NEEDED,WITH MODERATED AMOUNT OF PALE YELLOWISH SECRETIONS,ON O2 AT 2 L/M,ABDOMEN SOFT NO DISTENDED,HAS GT IN PLACE AND PATENCY ,HAS F/C 18X5 CC,L UPPER ARM MIDLINE.
[2021-07-06 18:00] VITALS: BP 148/87
[~2021-07-06 18:26] MED LIST changes: -ALBU2.5V13 NEB; +CEFE1FRO IV; -CEFT1VIA15 IV; -DEXT50DI8 IV; -ENOX40DI SQ; +LEVA1.2528 IH; +MERREM IV; +NYST15CR TP; -NYST15CR2 TP; +REFRESH EACHEYE; +VANC750F2 IV
[2021-07-06] MEDS ORDERED: ZOLPIDEM 5 MG TABLET PO PRN (19:45)
[2021-07-06] MEDS ORDERED: GUAIFENESIN 200 MG GT SCH (19:45)
[2021-07-06] MEDS ORDERED: ONDANSETRON 4 MG/2 ML VIAL IV PRN (19:45)
[2021-07-06] MEDS ORDERED: HYDROCODONE/APAP 5-325MG TABLET GT SCH (19:45)
[2021-07-06] MEDS ORDERED: MAGNESIUM HYDROXIDE 30 ML LIQUID UDC PO PRN (19:45)
[2021-07-06] MEDS ORDERED: ACETAMINOPHEN ES 500 MG TABLET- SA PATIENTS-PAIN ONLY GT PRN ×2 (19:45→20:45)
[2021-07-06] MEDS ORDERED: INSULIN REGULAR, HUMAN 300 UNIT/3 ML VIAL SQ PRN (19:45)
[2021-07-06] MEDS ORDERED: IPRATROPIUM BROMIDE 0.5 MG/2.5 ML NEBU NEB PRN (19:45)
[2021-07-06] MEDS ORDERED: ONDANSETRON ODT 4 MG TAB.RAPDIS GT SCH (19:45)
[2021-07-06] MEDS ORDERED: ACETAMINOPHEN 325 MG TABLET PO PRN (19:45)
[2021-07-06] MEDS ORDERED: hydrALAZINE HCL 25 MG TABLET GT PRN (19:45)
[2021-07-06] MEDS ORDERED: DEXTROSE 50% 50 ML DISP.SYRIN IV PRN ×2 (19:45→21:15)
[2021-07-06] MEDS ORDERED: INSULIN REGULAR, HUMAN 300 UNITS/3 ML VIAL SQ PRN (19:45)
[2021-07-06] MEDS ORDERED: LORAZEPAM 1 MG TABLET GT PRN (19:45)
[2021-07-06 20:29] VITALS: BP 134/82
[2021-07-06] MEDS ORDERED: ACETAMINOPHEN 325 MG TABLET-SA PATIENTS-PAIN ONLY GT SCH (20:30)
[2021-07-06] MEDS: BACLOFEN 10 MG TABLET GT SCH (21:00)
[2021-07-06] MEDS ORDERED: Medication Not On Formulary EA (Atorvastatin Calcium (Lipitor) 1 TAB) GT SCH (21:00)
[2021-07-06] MEDS: AMANTADINE HCL 50 MG/5 ML GT SCH (21:00)
[2021-07-06] MEDS ORDERED: FAMOTIDINE 20 MG TABLET GT SCH (21:00)
[2021-07-06] MEDS ORDERED: NYSTATIN CREAM 30 GM TUBE TP SCH (21:00)
[2021-07-06] MEDS: ATORVASTATIN 40 MG TABLET PO SCH (21:00)
[2021-07-06] MEDS: levETIRAcetam 500 MG/5 ML LIQUID UDC GT SCH (21:00)
[2021-07-06] MEDS: hydrALAZINE HCL 25 MG TABLET GT SCH (21:00)
[2021-07-06] MEDS ORDERED: BLOOD SUGAR DIAGNOSTIC 1 EACH STRIP VI SCH (21:00)
[2021-07-06] MEDS ORDERED: METOPROLOL TARTRATE 25 MG TABLET GT SCH (21:00)
[2021-07-06] MEDS: FAMOTIDINE 20 MG TABLET GT SCH (21:00)
[2021-07-06] MEDS ORDERED: ASCORBIC ACID 500 MG TABLET GT SCH (21:00)
[2021-07-06] MEDS ORDERED: PHENOBARBITAL GT SCH (21:00)
[2021-07-06] MEDS ORDERED: SWABABLE VALVE TRANSFER SET EA MC SCH (21:00)
[2021-07-06] MEDS ORDERED: THIAMINE HCL 100 MG TABLET GT SCH (21:00)
[2021-07-06] MEDS: ASCORBIC ACID 500 MG TABLET GT SCH (21:00)
[2021-07-06] MEDS ORDERED: BACLOFEN 10 MG TABLET GT SCH (21:00)
[2021-07-06] MEDS ORDERED: POLYVINYL ALCOHOL OPHT DROPS 15 ML BOTTLE EACHEYE PRN (21:00)
[2021-07-06] MEDS ORDERED: hydrALAZINE HCL 25 MG TABLET GT SCH (21:00)
[2021-07-06] MEDS ORDERED: DOCUSATE SODIUM 100 MG/10 ML LIQUID UDC GT PRN (21:00)
[2021-07-06] MEDS: HEPARIN SODIUM,PORCINE 5,000 UNITS/ML VIAL SQ SCH (21:00)
[2021-07-06] MEDS ORDERED: SODIUM HYPOCHLORITE 0.125% (QUARTER STRENGTH) 473 ML BOTTLE TP SCH (21:00)
[2021-07-06] MEDS ORDERED: ONDANSETRON HCL 4 MG TABLET GT PRN (21:30)
[2021-07-06] MEDS ORDERED: PHENOBARBITAL 32.4 MG TABLET GT SCH (22:00)
[2021-07-06] MEDS: CEFEPIME HCL 1 G in IV DEXTROSE 5% 50 ML IV SCH (22:26)
[2021-07-06] MEDS: THIAMINE HCL 100 MG TABLET GT SCH (22:26)
[2021-07-06] MEDS: METOPROLOL TARTRATE 25 MG TABLET GT SCH (22:29)
[2021-07-07] VITALS (8 sets, daily range): BP systolic 132–154; BP diastolic 75–89
[2021-07-07] MEDS: IPRATROPIUM BROMIDE 0.5 MG/2.5 ML NEBU NEB SCH ×4 (01:03→19:23)
[2021-07-07] MEDS: LEVALBUTEROL HCL 1.25 MG/0.5 ML NEB NEB SCH ×4 (01:04→19:23)
[2021-07-07] MEDS: INSULIN REGULAR, HUMAN 300 UNIT/3 ML VIAL SQ PRN ×4 (01:04→17:26)
[2021-07-07] MEDS ORDERED: LEVALBUTEROL HCL 1.25 MG/0.5 ML NEB IH SCH (01:30)
[2021-07-07] MEDS ORDERED: IPRATROPIUM BROMIDE 0.5 MG/2.5 ML NEBU NEB SCH (01:30)
[2021-07-07] MEDS: CEFEPIME HCL 1 G in IV DEXTROSE 5% 50 ML IV SCH ×3 (05:09→22:00)
[2021-07-07] MEDS: HYDROCODONE/APAP 5-325MG TABLET GT PRN (05:10)
[2021-07-07] MEDS: ARGININE/GLUTAMINE/CALCIUM BMB 1 EACH POWD.PACK GT SCH (05:12)
[2021-07-07] MEDS: BLOOD SUGAR DIAGNOSTIC 1 EACH STRIP VI SCH ×4 (05:13→17:25)
--- NOTE | 2021-07-07 05:36 | NUR ---
PT IN BED AWAKE RESPONSIVE NO SOB DISTRESS.V/S STABLE ON ATB IVPB FOR UTI NO A/R NOTED.ON F/C URINE FLOW YELLOW KEEP CLEAN AND GOOD RICK CARE.PT HAS EPISODE OF PAIN AFTER TX AND [place] WAS GIVEN VIA GT ORDERED.NO S/S HYPO OR HYPERGLYCEMIA.ON MID LINE SITE ON (L) UPPER ARM KEEP CLEAS AND DRY.ALL MEDS GIVE ALL NURSING ATTENDED.
[2021-07-07] MEDS ORDERED: GLUTAMINE GT SCH (06:00)
[2021-07-07] MEDS ORDERED: ARGININE GT SCH (06:00)
[2021-07-07 06:46] LABS: MEAN CORPUSCULAR HEMOGLOBIN 29.1 uug (23.8-33.4); MEAN CORPUSCULAR VOLUME 87.9 fL (73.0-96.2); PLATELET COUNT (AUTO) 286 K/uL (152-348)
[2021-07-07 07:07] LABS: CARBON DIOXIDE 33 mmol/L (21-32); CHLORIDE 100 mmol/L (98-107); CREATININE 0.5 mg/dL (0.6-1.3); GLUCOSE 175 mg/dL (74-106); MAGNESIUM 2.2 mg/dL (1.8-2.4); PHOSPHOROUS 3.5 mg/dL (2.5-4.9); POTASSIUM 4.6 mmol/L (3.5-5.1); UREA NITROGEN, BLOOD 20 mg/dL (7-18)
[2021-07-07] MEDS: levETIRAcetam 500 MG/5 ML LIQUID UDC GT SCH ×2 (08:28→21:28)
[2021-07-07] MEDS: TERAZOSIN 1 MG CAPSULE GT SCH (08:28)
[2021-07-07] MEDS: [UNRECOGNIZED DRUG - OTHER] GT SCH ×2 (08:29→21:25)
[2021-07-07] MEDS: BACLOFEN 10 MG TABLET GT SCH ×2 (08:29→21:28)
[2021-07-07] MEDS: FAMOTIDINE 20 MG TABLET GT SCH ×2 (08:29→21:30)
[2021-07-07] MEDS: METOPROLOL TARTRATE 25 MG TABLET GT SCH ×2 (08:29→21:29)
[2021-07-07] MEDS: AMANTADINE HCL 50 MG/5 ML GT SCH ×2 (08:29→21:30)
[2021-07-07] MEDS: ACETAMINOPHEN GT SCH ×2 (08:29→21:25)
[2021-07-07] MEDS: HEPARIN SODIUM,PORCINE 5,000 UNITS/ML VIAL SQ SCH ×2 (08:30→21:33)
[2021-07-07] MEDS: PHENOBARBITAL 97.2 MG GT SCH (08:35)
[2021-07-07] MEDS ORDERED: Medication Not On Formulary EA (Phenobarbital 97.2 MG) GT SCH (09:00)
[2021-07-07] MEDS ORDERED: DOCUSATE SODIUM 100 MG CAPSULE PO SCH (09:00)
[2021-07-07] MEDS ORDERED: PHENOBARBITAL 32.4 MG TABLET GT SCH (09:00)
[2021-07-07] MEDS ORDERED: NYSTATIN CREAM 30 GM TUBE TP PRN (11:00)
[2021-07-07] MEDS ORDERED: SODIUM HYPOCHLORITE 0.125% (QUARTER STRENGTH) 473 ML BOTTLE TP PRN (11:00)
[2021-07-07] MEDS ORDERED: TRIAMCINOLONE ACET 0.1% CREAM 15 GM TUBE TP PRN (11:15)
--- NOTE | 2021-07-07 11:52 | NUR ---
COVID 19 TEST PCR SPECIMEN COLLECTED AND MRSA NARES SPECIMEN COLLECTED AND SENT TO LAB.
[2021-07-07] MEDS: NORMAL SALINE FLUSH 10 ML DISP.SYRIN IV SCH ×2 (12:00→21:49)
[2021-07-07] MEDS: SODIUM HYPOCHLORITE 0.125% (QUARTER STRENGTH) 473 ML BOTTLE TP SCH ×2 (12:22→21:34)
[2021-07-07] MEDS: COD LIVER OIL/ZINC OXIDE OINT 113 GM TUBE TP SCH ×6 (12:22→21:34)
[2021-07-07] MEDS: TRIAMCINOLONE ACET 0.1% CREAM 15 GM TUBE TP SCH ×10 (12:24→21:34)
[2021-07-07] MEDS: NYSTATIN CREAM 30 GM TUBE TP SCH ×8 (12:26→21:35)
[2021-07-07] MEDS: NEOMY/BACITRA/POLYMYXIN B OINT UD PACKET TP SCH ×2 (12:27→21:35)
[2021-07-07] MEDS: VITAMINS A AND D OINT TP SCH ×2 (12:27→21:35)
[2021-07-07] MEDS ORDERED: HYDROGEN PEROXIDE 3% 118 ML BOTTLE TP PRN (12:30)
--- NOTE | 2021-07-07 13:00 | NUR ---
SEEN BY DR. WEBSTER AND WITH NNO.
[2021-07-07] MEDS: HYDROGEN PEROXIDE 3% 118 ML BOTTLE TP SCH ×2 (13:34→21:51)
--- NOTE | 2021-07-07 15:38 | NUR ---
NEW ORDER CARRIED OUT FROM DR. HENDERSON RECOMMENDED BY PT.
--- NOTE | 2021-07-07 18:00 | NUR ---
SEEN BY KENDALL ShepardI.Janna)AND WITH NAMO.
[2021-07-07] MEDS ORDERED: PHENOBARBITAL GT SCH (21:00)
[2021-07-07] MEDS: MINERAL OIL/PETROLAT OPHT OINT 3.5 GM TUBE EACHEYE SCH (21:25)
[2021-07-07] MEDS: hydrALAZINE HCL 25 MG TABLET GT SCH (21:27)
[2021-07-07] MEDS: ASCORBIC ACID 500 MG TABLET GT SCH (21:31)
[2021-07-07] MEDS: THIAMINE HCL 100 MG TABLET GT SCH (21:31)
[2021-07-07] MEDS: ATORVASTATIN 40 MG TABLET PO SCH (21:32)
[2021-07-08] VITALS: BP 130/72
[2021-07-08 00:10] VITALS: BP 130/72
[2021-07-08] MEDS: BLOOD SUGAR DIAGNOSTIC 1 EACH STRIP VI SCH ×4 (00:30→17:32)
[2021-07-08] MEDS: INSULIN REGULAR, HUMAN 300 UNIT/3 ML VIAL SQ PRN ×4 (00:31→17:34)
[2021-07-08] MEDS: IPRATROPIUM BROMIDE 0.5 MG/2.5 ML NEBU NEB SCH ×4 (01:05→18:55)
[2021-07-08] MEDS: LEVALBUTEROL HCL 1.25 MG/0.5 ML NEB NEB SCH ×4 (01:05→18:55)
[2021-07-08 04:00] VITALS: BP 139/78
[2021-07-08] MEDS: ARGININE/GLUTAMINE/CALCIUM BMB 1 EACH POWD.PACK GT SCH (05:32)
[2021-07-08] MEDS: GLUCERNA 1.2 1000ML LIQUID GT PRN (05:34)
[2021-07-08] MEDS: CEFEPIME HCL 1 G in IV DEXTROSE 5% 50 ML IV SCH (06:00)
[2021-07-08] MEDS: ACETAMINOPHEN GT SCH ×2 (08:27→21:22)
[2021-07-08] MEDS: [UNRECOGNIZED DRUG - OTHER] GT SCH ×2 (08:27→21:22)
[2021-07-08] MEDS: TERAZOSIN 1 MG CAPSULE GT SCH (08:28)
[2021-07-08] MEDS: BACLOFEN 10 MG TABLET GT SCH ×2 (08:29→21:23)
[2021-07-08] MEDS: levETIRAcetam 500 MG/5 ML LIQUID UDC GT SCH ×2 (08:29→21:23)
[2021-07-08] MEDS: AMANTADINE HCL 50 MG/5 ML GT SCH ×2 (08:30→21:24)
[2021-07-08] MEDS: METOPROLOL TARTRATE 25 MG TABLET GT SCH ×2 (08:30→21:23)
[2021-07-08] MEDS: FAMOTIDINE 20 MG TABLET GT SCH ×2 (08:30→21:23)
[2021-07-08] MEDS: PHENOBARBITAL 97.2 MG GT SCH (08:32)
[2021-07-08] MEDS: HEPARIN SODIUM,PORCINE 5,000 UNITS/ML VIAL SQ SCH ×2 (08:32→21:00)
[2021-07-08] MEDS: COD LIVER OIL/ZINC OXIDE OINT 113 GM TUBE TP SCH ×6 (09:00→21:24)
[2021-07-08] MEDS: NYSTATIN CREAM 30 GM TUBE TP SCH ×8 (09:00→21:00)
[2021-07-08] MEDS: TRIAMCINOLONE ACET 0.1% CREAM 15 GM TUBE TP SCH ×10 (09:00→21:00)
[2021-07-08] MEDS: NORMAL SALINE FLUSH 10 ML DISP.SYRIN IV SCH ×2 (09:00→21:00)
[2021-07-08] MEDS: NEOMY/BACITRA/POLYMYXIN B OINT UD PACKET TP SCH ×2 (09:00→21:00)
[2021-07-08] MEDS: SODIUM HYPOCHLORITE 0.125% (QUARTER STRENGTH) 473 ML BOTTLE TP SCH ×2 (09:00→21:00)
[2021-07-08] MEDS: VITAMINS A AND D OINT TP SCH ×2 (09:00→21:00)
[2021-07-08] MEDS: HYDROGEN PEROXIDE 3% 118 ML BOTTLE TP SCH ×2 (09:00→21:29)
--- NOTE | 2021-07-08 10:00 | NUR ---
SEEN BY DR. HENDERSON AND WITH NNO.
--- NOTE | 2021-07-08 11:00 | NUR ---
SEEN BY THIEN Trevino ) AND WITH NAMO.
[2021-07-08 12:00] VITALS: BP 148/65
--- NOTE | 2021-07-08 12:17 | NUR ---
IV CEFEPIME D/C BY DR. HENDERSON.
[2021-07-08 18:49] VITALS: BP 138/62
[2021-07-08 20:00] VITALS: BP 132/82
[2021-07-08] MEDS: MINERAL OIL/PETROLAT OPHT OINT 3.5 GM TUBE EACHEYE SCH (21:22)
[2021-07-08] MEDS: hydrALAZINE HCL 25 MG TABLET GT SCH (21:23)
[2021-07-08] MEDS: PHENOBARBITAL 97.2 MG TABLET GT SCH (21:23)
[2021-07-08] MEDS: THIAMINE HCL 100 MG TABLET GT SCH (21:24)
[2021-07-08] MEDS: ASCORBIC ACID 500 MG TABLET GT SCH (21:24)
[2021-07-08] MEDS: ATORVASTATIN 40 MG TABLET PO SCH (21:24)
[2021-07-09] VITALS: BP 134/69
[2021-07-09] MEDS: IPRATROPIUM BROMIDE 0.5 MG/2.5 ML NEBU NEB SCH ×4 (01:39→19:19)
[2021-07-09] MEDS: LEVALBUTEROL HCL 1.25 MG/0.5 ML NEB NEB SCH ×4 (01:39→19:19)
[2021-07-09] MEDS: GLUCERNA 1.2 1000ML LIQUID GT PRN ×2 (02:43→17:48)
[2021-07-09] MEDS: ARGININE/GLUTAMINE/CALCIUM BMB 1 EACH POWD.PACK GT SCH (05:38)
[2021-07-09] MEDS: BLOOD SUGAR DIAGNOSTIC 1 EACH STRIP VI SCH ×5 (05:39→23:02)
[2021-07-09 06:00] VITALS: BP 125/89
[2021-07-09] MEDS: INSULIN REGULAR, HUMAN 300 UNIT/3 ML VIAL SQ PRN ×4 (06:56→23:03)
[2021-07-09 08:03] VITALS: BP 143/88
[2021-07-09] MEDS: HYDROGEN PEROXIDE 3% 118 ML BOTTLE TP SCH ×2 (08:40→19:19)
[2021-07-09] MEDS: BACLOFEN 10 MG TABLET GT SCH ×2 (08:41→21:55)
[2021-07-09] MEDS: [UNRECOGNIZED DRUG - OTHER] GT SCH ×2 (08:41→20:30)
[2021-07-09] MEDS: ACETAMINOPHEN GT SCH ×2 (08:41→20:30)
[2021-07-09] MEDS: levETIRAcetam 500 MG/5 ML LIQUID UDC GT SCH ×2 (08:41→21:55)
[2021-07-09] MEDS: TERAZOSIN 1 MG CAPSULE GT SCH (08:41)
[2021-07-09] MEDS: TRIAMCINOLONE ACET 0.1% CREAM 15 GM TUBE TP SCH ×10 (08:42→21:00)
[2021-07-09] MEDS: SODIUM HYPOCHLORITE 0.125% (QUARTER STRENGTH) 473 ML BOTTLE TP SCH ×2 (08:42→21:59)
[2021-07-09] MEDS: PHENOBARBITAL 97.2 MG TABLET GT SCH ×2 (08:42→21:55)
[2021-07-09] MEDS: METOPROLOL TARTRATE 25 MG TABLET GT SCH ×2 (08:42→21:55)
[2021-07-09] MEDS: AMANTADINE HCL 50 MG/5 ML GT SCH ×2 (08:42→21:55)
[2021-07-09] MEDS: COD LIVER OIL/ZINC OXIDE OINT 113 GM TUBE TP SCH ×6 (08:42→22:00)
[2021-07-09] MEDS: HEPARIN SODIUM,PORCINE 5,000 UNITS/ML VIAL SQ SCH ×2 (08:42→21:00)
[2021-07-09] MEDS: FAMOTIDINE 20 MG TABLET GT SCH ×2 (08:42→21:55)
[2021-07-09] MEDS: NYSTATIN CREAM 30 GM TUBE TP SCH ×8 (08:43→21:00)
[2021-07-09] MEDS: VITAMINS A AND D OINT TP SCH ×2 (08:43→21:00)
[2021-07-09] MEDS: NEOMY/BACITRA/POLYMYXIN B OINT UD PACKET TP SCH ×2 (08:43→21:00)
[2021-07-09] MEDS: NORMAL SALINE FLUSH 10 ML DISP.SYRIN IV SCH ×2 (09:00→21:56)
[2021-07-09] MEDS: LORAZEPAM 1 MG TABLET GT PRN (11:20)
[2021-07-09 12:11] VITALS: BP 125/72
[2021-07-09] MEDS: LEVALBUTEROL HCL 1.25 MG/0.5 ML NEB NEB PRN (15:38)
[2021-07-09] MEDS: IPRATROPIUM BROMIDE 0.5 MG/2.5 ML NEBU NEB PRN (15:38)
[2021-07-09 21:02] VITALS: BP 138/75
[2021-07-09] MEDS: MINERAL OIL/PETROLAT OPHT OINT 3.5 GM TUBE EACHEYE SCH (21:52)
[2021-07-09] MEDS: hydrALAZINE HCL 25 MG TABLET GT SCH (21:53)
[2021-07-09] MEDS: ASCORBIC ACID 500 MG TABLET GT SCH (21:56)
[2021-07-09] MEDS: ATORVASTATIN 40 MG TABLET PO SCH (21:56)
[2021-07-09] MEDS: THIAMINE HCL 100 MG TABLET GT SCH (21:56)
[2021-07-10] MEDS: IPRATROPIUM BROMIDE 0.5 MG/2.5 ML NEBU NEB SCH ×4 (00:48→19:06)
[2021-07-10] MEDS: LEVALBUTEROL HCL 1.25 MG/0.5 ML NEB NEB SCH ×4 (00:48→19:06)
[2021-07-10 02:00] VITALS: BP 144/80
[2021-07-10] MEDS: ARGININE/GLUTAMINE/CALCIUM BMB 1 EACH POWD.PACK GT SCH (05:36)
[2021-07-10] MEDS: INSULIN REGULAR, HUMAN 300 UNIT/3 ML VIAL SQ PRN ×3 (05:37→17:35)
[2021-07-10] MEDS: BLOOD SUGAR DIAGNOSTIC 1 EACH STRIP VI SCH ×4 (05:37→23:56)
[2021-07-10 07:58] VITALS: BP 152/85
[2021-07-10] MEDS: HYDROGEN PEROXIDE 3% 118 ML BOTTLE TP SCH ×2 (08:35→21:15)
[2021-07-10] MEDS: NORMAL SALINE FLUSH 10 ML DISP.SYRIN IV SCH ×2 (09:00→21:00)
[2021-07-10] MEDS: [UNRECOGNIZED DRUG - OTHER] GT SCH ×2 (09:28→20:30)
[2021-07-10] MEDS: TERAZOSIN 1 MG CAPSULE GT SCH (09:28)
[2021-07-10] MEDS: ACETAMINOPHEN GT SCH ×2 (09:28→20:30)
[2021-07-10] MEDS: levETIRAcetam 500 MG/5 ML LIQUID UDC GT SCH ×2 (09:28→21:42)
[2021-07-10] MEDS: FAMOTIDINE 20 MG TABLET GT SCH ×2 (09:29→21:42)
[2021-07-10] MEDS: METOPROLOL TARTRATE 25 MG TABLET GT SCH ×2 (09:29→21:42)
[2021-07-10] MEDS: BACLOFEN 10 MG TABLET GT SCH ×2 (09:29→21:42)
[2021-07-10] MEDS: PHENOBARBITAL 97.2 MG TABLET GT SCH ×2 (09:29→21:42)
[2021-07-10] MEDS: AMANTADINE HCL 50 MG/5 ML GT SCH ×2 (09:29→21:42)
[2021-07-10] MEDS: SODIUM HYPOCHLORITE 0.125% (QUARTER STRENGTH) 473 ML BOTTLE TP SCH ×2 (09:30→21:00)
[2021-07-10] MEDS: HEPARIN SODIUM,PORCINE 5,000 UNITS/ML VIAL SQ SCH ×2 (09:30→21:00)
[2021-07-10] MEDS: NYSTATIN CREAM 30 GM TUBE TP SCH ×8 (09:32→21:44)
[2021-07-10] MEDS: VITAMINS A AND D OINT TP SCH ×2 (09:32→21:44)
[2021-07-10] MEDS: NEOMY/BACITRA/POLYMYXIN B OINT UD PACKET TP SCH ×2 (09:32→21:44)
[2021-07-10] MEDS: TRIAMCINOLONE ACET 0.1% CREAM 15 GM TUBE TP SCH ×10 (09:32→21:43)
[2021-07-10] MEDS: COD LIVER OIL/ZINC OXIDE OINT 113 GM TUBE TP SCH ×6 (09:32→21:43)
[2021-07-10] MEDS: GLUCERNA 1.2 1000ML LIQUID GT PRN (12:26)
[2021-07-10] MEDS ORDERED: ACETAMINOPHEN GT PRN (14:15)
[2021-07-10] MEDS ORDERED: [UNRECOGNIZED DRUG - OTHER] GT PRN (14:15)
--- NOTE | 2021-07-10 19:45 | NUR ---
PT'S DTR. SARBJIT AWARE THAT PT. IS NEGATIVE FOR COVID 19 TEST.
[2021-07-10 20:21] VITALS: BP 141/76
[2021-07-10] MEDS: MINERAL OIL/PETROLAT OPHT OINT 3.5 GM TUBE EACHEYE SCH (21:41)
[2021-07-10] MEDS: THIAMINE HCL 100 MG TABLET GT SCH (21:42)
[2021-07-10] MEDS: hydrALAZINE HCL 25 MG TABLET GT SCH (21:42)
[2021-07-10] MEDS: ATORVASTATIN 40 MG TABLET PO SCH (21:42)
[2021-07-10] MEDS: ASCORBIC ACID 500 MG TABLET GT SCH (21:42)
[2021-07-11] VITALS: BP 123/75
[2021-07-11] MEDS: INSULIN REGULAR, HUMAN 300 UNIT/3 ML VIAL SQ PRN ×3 (00:30→17:12)
[2021-07-11] MEDS: LEVALBUTEROL HCL 1.25 MG/0.5 ML NEB NEB SCH ×4 (01:29→19:07)
[2021-07-11] MEDS: IPRATROPIUM BROMIDE 0.5 MG/2.5 ML NEBU NEB SCH ×4 (01:29→19:07)
[2021-07-11] MEDS: GUAIFENESIN SUGAR FREE 100 MG/5 ML UDC GT PRN (01:53)
[2021-07-11] MEDS: BLOOD SUGAR DIAGNOSTIC 1 EACH STRIP VI SCH ×3 (05:46→17:11)
[2021-07-11] MEDS: ARGININE/GLUTAMINE/CALCIUM BMB 1 EACH POWD.PACK GT SCH (05:46)
[2021-07-11 06:50] VITALS: BP 132/72
[2021-07-11 07:31] VITALS: BP 143/86
[2021-07-11] MEDS: ACETAMINOPHEN GT SCH ×2 (08:46→20:30)
[2021-07-11] MEDS: [UNRECOGNIZED DRUG - OTHER] GT SCH ×2 (08:46→20:30)
[2021-07-11] MEDS: levETIRAcetam 500 MG/5 ML LIQUID UDC GT SCH ×2 (08:47→21:59)
[2021-07-11] MEDS: TERAZOSIN 1 MG CAPSULE GT SCH (08:47)
[2021-07-11] MEDS: PHENOBARBITAL 97.2 MG TABLET GT SCH ×2 (08:48→21:59)
[2021-07-11] MEDS: AMANTADINE HCL 50 MG/5 ML GT SCH ×2 (08:48→21:59)
[2021-07-11] MEDS: FAMOTIDINE 20 MG TABLET GT SCH ×2 (08:48→21:59)
[2021-07-11] MEDS: METOPROLOL TARTRATE 25 MG TABLET GT SCH ×2 (08:48→21:59)
[2021-07-11] MEDS: BACLOFEN 10 MG TABLET GT SCH ×2 (08:48→21:59)
[2021-07-11] MEDS: TRIAMCINOLONE ACET 0.1% CREAM 15 GM TUBE TP SCH ×10 (08:49→21:00)
[2021-07-11] MEDS: COD LIVER OIL/ZINC OXIDE OINT 113 GM TUBE TP SCH ×6 (08:49→21:00)
[2021-07-11] MEDS: SODIUM HYPOCHLORITE 0.125% (QUARTER STRENGTH) 473 ML BOTTLE TP SCH ×2 (08:49→21:00)
[2021-07-11] MEDS: HEPARIN SODIUM,PORCINE 5,000 UNITS/ML VIAL SQ SCH ×2 (08:49→21:00)
[2021-07-11] MEDS: NYSTATIN CREAM 30 GM TUBE TP SCH ×8 (08:50→21:00)
[2021-07-11] MEDS: NEOMY/BACITRA/POLYMYXIN B OINT UD PACKET TP SCH ×2 (08:50→21:00)
[2021-07-11] MEDS: VITAMINS A AND D OINT TP SCH ×2 (08:50→21:00)
[2021-07-11] MEDS: HYDROGEN PEROXIDE 3% 118 ML BOTTLE TP SCH ×2 (08:51→21:36)
[2021-07-11] MEDS: NORMAL SALINE FLUSH 10 ML DISP.SYRIN IV SCH (09:21)
[2021-07-11] MEDS: HYDROCODONE/APAP 5-325MG TABLET GT PRN (10:52)
--- NOTE | 2021-07-11 17:51 | NUR ---
SEEN BY FABY Montoya AND WITH NNO .
--- NOTE | 2021-07-11 17:52 | NUR ---
SEEN BY THIEN IRAHETA N.P. (I.D) AND WITH OOzzieK TO ORDER TO D/C PICC LINE AND ORDER CARRIED OUT.
[2021-07-11 20:31] VITALS: BP 143/79
[2021-07-11] MEDS: MINERAL OIL/PETROLAT OPHT OINT 3.5 GM TUBE EACHEYE SCH (21:57)
[2021-07-11] MEDS: hydrALAZINE HCL 25 MG TABLET GT SCH (21:58)
[2021-07-11] MEDS: ATORVASTATIN 40 MG TABLET PO SCH (21:59)
[2021-07-11] MEDS: THIAMINE HCL 100 MG TABLET GT SCH (21:59)
[2021-07-11] MEDS: ASCORBIC ACID 500 MG TABLET GT SCH (21:59)
[2021-07-12] VITALS: BP 128/78
[2021-07-12] MEDS: INSULIN REGULAR, HUMAN 300 UNIT/3 ML VIAL SQ PRN ×3 (00:30→18:30)
[2021-07-12] MEDS: LEVALBUTEROL HCL 1.25 MG/0.5 ML NEB NEB SCH ×4 (01:21→18:53)
[2021-07-12] MEDS: IPRATROPIUM BROMIDE 0.5 MG/2.5 ML NEBU NEB SCH ×4 (01:21→18:53)
[2021-07-12] MEDS: GLUCERNA 1.2 1000ML LIQUID GT PRN ×2 (02:42→18:52)
[2021-07-12] MEDS: BLOOD SUGAR DIAGNOSTIC 1 EACH STRIP VI SCH ×4 (05:58→18:24)
[2021-07-12] MEDS: ARGININE/GLUTAMINE/CALCIUM BMB 1 EACH POWD.PACK GT SCH (05:58)
[2021-07-12] MEDS: GUAIFENESIN SUGAR FREE 100 MG/5 ML UDC GT PRN (05:59)
[2021-07-12 06:00] VITALS: BP 137/84
[2021-07-12 07:38] VITALS: BP 142/84
[2021-07-12] MEDS: ACETAMINOPHEN GT SCH ×2 (08:17→20:43)
[2021-07-12] MEDS: [UNRECOGNIZED DRUG - OTHER] GT SCH ×2 (08:17→20:43)
[2021-07-12] MEDS: TERAZOSIN 1 MG CAPSULE GT SCH (08:23)
[2021-07-12] MEDS: levETIRAcetam 500 MG/5 ML LIQUID UDC GT SCH ×2 (08:24→20:44)
[2021-07-12] MEDS: METOPROLOL TARTRATE 25 MG TABLET GT SCH ×2 (08:25→20:44)
[2021-07-12] MEDS: BACLOFEN 10 MG TABLET GT SCH ×2 (08:25→20:44)
[2021-07-12] MEDS: FAMOTIDINE 20 MG TABLET GT SCH ×2 (08:26→20:44)
[2021-07-12] MEDS: AMANTADINE HCL 50 MG/5 ML GT SCH ×2 (08:26→20:46)
[2021-07-12] MEDS: PHENOBARBITAL 97.2 MG TABLET GT SCH ×2 (08:38→20:44)
[2021-07-12] MEDS: HEPARIN SODIUM,PORCINE 5,000 UNITS/ML VIAL SQ SCH ×2 (08:39→21:01)
[2021-07-12] MEDS: COD LIVER OIL/ZINC OXIDE OINT 113 GM TUBE TP SCH ×6 (08:40→20:49)
[2021-07-12] MEDS: SODIUM HYPOCHLORITE 0.125% (QUARTER STRENGTH) 473 ML BOTTLE TP SCH ×2 (08:40→20:48)
[2021-07-12] MEDS: NYSTATIN CREAM 30 GM TUBE TP SCH ×8 (08:41→21:02)
[2021-07-12] MEDS: TRIAMCINOLONE ACET 0.1% CREAM 15 GM TUBE TP SCH ×10 (08:41→21:02)
[2021-07-12] MEDS: NEOMY/BACITRA/POLYMYXIN B OINT UD PACKET TP SCH ×2 (08:42→21:02)
[2021-07-12] MEDS: VITAMINS A AND D OINT TP SCH ×2 (08:42→21:02)
[2021-07-12] MEDS: HYDROGEN PEROXIDE 3% 118 ML BOTTLE TP SCH ×2 (09:25→20:55)
[2021-07-12 12:04] VITALS: BP 133/78
--- NOTE | 2021-07-12 14:58 | NUR ---
Seen and examined by Cari Price no new orders noted.
[2021-07-12] MEDS ORDERED: ACETAMINOPHEN 650 MG/20 ML UDC- SA PATIENTS-PAIN ONLY GT PRN (17:15)
[2021-07-12] MEDS ORDERED: ACETAMINOPHEN 650 MG/20 ML UDC- SA PATIENTS-FEVER ONLY GT PRN (17:15)
[2021-07-12] MEDS: hydrALAZINE HCL 25 MG TABLET GT PRN (18:50)
[2021-07-12 18:53] VITALS: BP 167/70
[2021-07-12 20:00] VITALS: BP 143/84
[2021-07-12] MEDS: MINERAL OIL/PETROLAT OPHT OINT 3.5 GM TUBE EACHEYE SCH (20:43)
[2021-07-12] MEDS: hydrALAZINE HCL 25 MG TABLET GT SCH (20:44)
[2021-07-12] MEDS: ASCORBIC ACID 500 MG TABLET GT SCH (20:47)
[2021-07-12] MEDS: THIAMINE HCL 100 MG TABLET GT SCH (20:47)
[2021-07-12] MEDS: ATORVASTATIN 40 MG TABLET PO SCH (20:47)
[2021-07-13] MEDS: BLOOD SUGAR DIAGNOSTIC 1 EACH STRIP VI SCH ×4 (00:22→18:21)
[2021-07-13] MEDS: INSULIN REGULAR, HUMAN 300 UNIT/3 ML VIAL SQ PRN ×4 (00:23→18:24)
[2021-07-13 00:26] VITALS: BP 138/81
[2021-07-13] MEDS: IPRATROPIUM BROMIDE 0.5 MG/2.5 ML NEBU NEB SCH ×4 (00:39→18:59)
[2021-07-13] MEDS: LEVALBUTEROL HCL 1.25 MG/0.5 ML NEB NEB SCH ×4 (00:39→18:59)
[2021-07-13] MEDS: ARGININE/GLUTAMINE/CALCIUM BMB 1 EACH POWD.PACK GT SCH (05:23)
[2021-07-13 05:33] VITALS: BP 131/85
[2021-07-13 07:45] VITALS: BP 132/90
[2021-07-13] MEDS: HYDROGEN PEROXIDE 3% 118 ML BOTTLE TP SCH ×2 (08:14→21:09)
[2021-07-13] MEDS: ACETAMINOPHEN GT SCH ×2 (08:30→10:40)
[2021-07-13] MEDS: [UNRECOGNIZED DRUG - OTHER] GT SCH ×2 (08:30→10:40)
[2021-07-13] MEDS: BACLOFEN 10 MG TABLET GT SCH ×2 (09:00→20:50)
[2021-07-13] MEDS: AMANTADINE HCL 50 MG/5 ML GT SCH ×2 (09:00→20:51)
[2021-07-13] MEDS: SODIUM HYPOCHLORITE 0.125% (QUARTER STRENGTH) 473 ML BOTTLE TP SCH ×2 (09:00→20:52)
[2021-07-13] MEDS: TRIAMCINOLONE ACET 0.1% CREAM 15 GM TUBE TP SCH ×10 (09:00→20:56)
[2021-07-13] MEDS: levETIRAcetam 500 MG/5 ML LIQUID UDC GT SCH ×2 (09:00→20:49)
[2021-07-13] MEDS: HEPARIN SODIUM,PORCINE 5,000 UNITS/ML VIAL SQ SCH ×2 (09:00→21:00)
[2021-07-13] MEDS: FAMOTIDINE 20 MG TABLET GT SCH ×2 (09:00→20:50)
[2021-07-13] MEDS: TERAZOSIN 1 MG CAPSULE GT SCH (09:00)
[2021-07-13] MEDS: NYSTATIN CREAM 30 GM TUBE TP SCH ×8 (09:00→20:57)
[2021-07-13] MEDS: COD LIVER OIL/ZINC OXIDE OINT 113 GM TUBE TP SCH ×6 (09:00→20:52)
[2021-07-13] MEDS: METOPROLOL TARTRATE 25 MG TABLET GT SCH ×2 (09:00→20:50)
[2021-07-13] MEDS: NEOMY/BACITRA/POLYMYXIN B OINT UD PACKET TP SCH ×2 (09:00→20:57)
[2021-07-13] MEDS: VITAMINS A AND D OINT TP SCH ×2 (09:00→20:57)
[2021-07-13] MEDS: PHENOBARBITAL 97.2 MG TABLET GT SCH ×2 (09:00→20:50)
--- NOTE | 2021-07-13 12:05 | NUR ---
Covid 19 test result negative,Pt's responsible green party notified.(pt's daughter Kylie)
[2021-07-13 15:25] VITALS: BP 119/72
[2021-07-13 18:44] VITALS: BP 119/72
[2021-07-13] MEDS: hydrALAZINE HCL 25 MG TABLET GT SCH (20:49)
[2021-07-13] MEDS: MINERAL OIL/PETROLAT OPHT OINT 3.5 GM TUBE EACHEYE SCH (20:49)
[2021-07-13] MEDS: THIAMINE HCL 100 MG TABLET GT SCH (20:51)
[2021-07-13] MEDS: ASCORBIC ACID 500 MG TABLET GT SCH (20:51)
[2021-07-13] MEDS: ATORVASTATIN 40 MG TABLET PO SCH (20:52)
[2021-07-13 23:57] VITALS: BP 150/97
[2021-07-14] MEDS: BLOOD SUGAR DIAGNOSTIC 1 EACH STRIP VI SCH ×5 (00:38→23:10)
[2021-07-14] MEDS: INSULIN REGULAR, HUMAN 300 UNIT/3 ML VIAL SQ PRN ×5 (00:39→23:29)
[2021-07-14] MEDS: IPRATROPIUM BROMIDE 0.5 MG/2.5 ML NEBU NEB SCH ×4 (02:16→19:48)
[2021-07-14] MEDS: LEVALBUTEROL HCL 1.25 MG/0.5 ML NEB NEB SCH ×4 (02:16→19:48)
[2021-07-14] MEDS: ARGININE/GLUTAMINE/CALCIUM BMB 1 EACH POWD.PACK GT SCH (05:00)
[2021-07-14] MEDS: HYDROCODONE/APAP 5-325MG TABLET GT PRN ×2 (05:00→23:31)
[2021-07-14] MEDS: GLUCERNA 1.2 1000ML LIQUID GT PRN ×2 (05:01→23:11)
[2021-07-14 07:42] VITALS: BP 167/103
[2021-07-14] MEDS: HYDROGEN PEROXIDE 3% 118 ML BOTTLE TP SCH ×2 (08:18→21:46)
[2021-07-14] MEDS: levETIRAcetam 500 MG/5 ML LIQUID UDC GT SCH ×2 (08:25→21:27)
[2021-07-14] MEDS: BACLOFEN 10 MG TABLET GT SCH ×2 (08:25→21:28)
[2021-07-14] MEDS: FAMOTIDINE 20 MG TABLET GT SCH ×2 (08:26→21:28)
[2021-07-14] MEDS: PHENOBARBITAL 97.2 MG TABLET GT SCH ×2 (08:26→21:28)
[2021-07-14] MEDS: METOPROLOL TARTRATE 25 MG TABLET GT SCH ×2 (08:26→21:28)
[2021-07-14] MEDS: TERAZOSIN 1 MG CAPSULE GT SCH (08:28)
[2021-07-14] MEDS: AMANTADINE HCL 50 MG/5 ML GT SCH ×2 (08:28→21:28)
[2021-07-14] MEDS: HEPARIN SODIUM,PORCINE 5,000 UNITS/ML VIAL SQ SCH ×2 (08:30→21:00)
[2021-07-14] MEDS: [UNRECOGNIZED DRUG - OTHER] GT SCH ×2 (08:31→21:27)
[2021-07-14] MEDS: ACETAMINOPHEN GT SCH ×2 (08:31→21:27)
[2021-07-14] MEDS: COD LIVER OIL/ZINC OXIDE OINT 113 GM TUBE TP SCH ×6 (09:00→21:28)
[2021-07-14] MEDS: VITAMINS A AND D OINT TP SCH ×2 (09:00→21:29)
[2021-07-14] MEDS: NYSTATIN CREAM 30 GM TUBE TP SCH ×8 (09:00→21:29)
[2021-07-14] MEDS: NEOMY/BACITRA/POLYMYXIN B OINT UD PACKET TP SCH ×2 (09:00→21:29)
[2021-07-14] MEDS: TRIAMCINOLONE ACET 0.1% CREAM 15 GM TUBE TP SCH ×10 (09:00→21:29)
[2021-07-14] MEDS: SODIUM HYPOCHLORITE 0.125% (QUARTER STRENGTH) 473 ML BOTTLE TP SCH ×2 (09:35→21:28)
[2021-07-14 12:00] VITALS: BP 152/88
--- NOTE | 2021-07-14 16:11 | NUR ---
This SW notified patient's daughter Janis by email that the next IDT meeting for the patient is scheduled for 07/21/2021 at 11am. This SW asked Janis to let this SW know if Janis would be available to participate in the meeting.
[2021-07-14] MEDS: LORAZEPAM 1 MG TABLET GT PRN (17:46)
[2021-07-14] MEDS: LEVALBUTEROL HCL 1.25 MG/0.5 ML NEB NEB PRN (18:02)
[2021-07-14] MEDS: IPRATROPIUM BROMIDE 0.5 MG/2.5 ML NEBU NEB PRN (18:02)
[2021-07-14 18:33] VITALS: BP 150/87
[2021-07-14 20:00] VITALS: BP 141/77
[2021-07-14] MEDS: MINERAL OIL/PETROLAT OPHT OINT 3.5 GM TUBE EACHEYE SCH (21:27)
[2021-07-14] MEDS: hydrALAZINE HCL 25 MG TABLET GT SCH (21:27)
[2021-07-14] MEDS: ASCORBIC ACID 500 MG TABLET GT SCH (21:28)
[2021-07-14] MEDS: THIAMINE HCL 100 MG TABLET GT SCH (21:28)
[2021-07-14] MEDS: ATORVASTATIN 40 MG TABLET PO SCH (21:28)
[2021-07-15] MEDS: LEVALBUTEROL HCL 1.25 MG/0.5 ML NEB NEB SCH ×4 (00:50→19:30)
[2021-07-15] MEDS: IPRATROPIUM BROMIDE 0.5 MG/2.5 ML NEBU NEB SCH ×4 (00:50→19:30)
[2021-07-15] MEDS: LORAZEPAM 1 MG TABLET GT PRN ×2 (00:54→17:18)
[2021-07-15] MEDS: ARGININE/GLUTAMINE/CALCIUM BMB 1 EACH POWD.PACK GT SCH (05:48)
[2021-07-15] MEDS: BLOOD SUGAR DIAGNOSTIC 1 EACH STRIP VI SCH ×3 (05:49→17:12)
[2021-07-15] MEDS: INSULIN REGULAR, HUMAN 300 UNIT/3 ML VIAL SQ PRN ×3 (05:52→17:18)
[2021-07-15] MEDS: [UNRECOGNIZED DRUG - OTHER] GT SCH ×2 (08:10→20:30)
[2021-07-15] MEDS: ACETAMINOPHEN GT SCH ×2 (08:10→20:30)
[2021-07-15] MEDS: TERAZOSIN 1 MG CAPSULE GT SCH (08:11)
[2021-07-15] MEDS: BACLOFEN 10 MG TABLET GT SCH ×2 (08:12→21:45)
[2021-07-15] MEDS: levETIRAcetam 500 MG/5 ML LIQUID UDC GT SCH ×2 (08:12→21:45)
[2021-07-15] MEDS: METOPROLOL TARTRATE 25 MG TABLET GT SCH ×2 (08:13→21:46)
[2021-07-15] MEDS: FAMOTIDINE 20 MG TABLET GT SCH ×2 (08:13→21:46)
[2021-07-15] MEDS: PHENOBARBITAL 97.2 MG TABLET GT SCH ×2 (08:13→21:46)
[2021-07-15] MEDS: AMANTADINE HCL 50 MG/5 ML GT SCH ×2 (08:14→21:47)
[2021-07-15] MEDS: HEPARIN SODIUM,PORCINE 5,000 UNITS/ML VIAL SQ SCH ×2 (08:15→21:00)
[2021-07-15] MEDS: HYDROGEN PEROXIDE 3% 118 ML BOTTLE TP SCH ×2 (08:20→21:00)
[2021-07-15] MEDS: VITAMINS A AND D OINT TP SCH ×2 (09:00→21:53)
[2021-07-15] MEDS: COD LIVER OIL/ZINC OXIDE OINT 113 GM TUBE TP SCH ×6 (09:00→21:50)
[2021-07-15] MEDS: TRIAMCINOLONE ACET 0.1% CREAM 15 GM TUBE TP SCH ×10 (09:15→21:52)
[2021-07-15] MEDS: SODIUM HYPOCHLORITE 0.125% (QUARTER STRENGTH) 473 ML BOTTLE TP SCH ×2 (09:15→21:50)
[2021-07-15] MEDS: NYSTATIN CREAM 30 GM TUBE TP SCH ×8 (09:15→21:53)
[2021-07-15] MEDS: NEOMY/BACITRA/POLYMYXIN B OINT UD PACKET TP SCH ×2 (09:15→21:53)
[2021-07-15] MEDS: HYDROCODONE/APAP 5-325MG TABLET GT PRN (10:15)
[2021-07-15 12:00] VITALS: BP 140/65
[2021-07-15 18:50] VITALS: BP 138/76
[2021-07-15 20:06] VITALS: BP 116/78
[2021-07-15] MEDS: MINERAL OIL/PETROLAT OPHT OINT 3.5 GM TUBE EACHEYE SCH (21:45)
[2021-07-15] MEDS: hydrALAZINE HCL 25 MG TABLET GT SCH (21:45)
[2021-07-15] MEDS: ASCORBIC ACID 500 MG TABLET GT SCH (21:47)
[2021-07-15] MEDS: THIAMINE HCL 100 MG TABLET GT SCH (21:47)
[2021-07-15] MEDS: ATORVASTATIN 40 MG TABLET PO SCH (21:47)
[2021-07-16] MEDS: INSULIN REGULAR, HUMAN 300 UNIT/3 ML VIAL SQ PRN ×3 (01:30→17:32)
[2021-07-16] MEDS: LEVALBUTEROL HCL 1.25 MG/0.5 ML NEB NEB SCH ×4 (01:37→19:21)
[2021-07-16] MEDS: IPRATROPIUM BROMIDE 0.5 MG/2.5 ML NEBU NEB SCH ×4 (01:37→19:21)
[2021-07-16] MEDS: LORAZEPAM 1 MG TABLET GT PRN (04:05)
[2021-07-16] MEDS: HYDROCODONE/APAP 5-325MG TABLET GT PRN ×2 (04:33→17:24)
[2021-07-16] MEDS: ARGININE/GLUTAMINE/CALCIUM BMB 1 EACH POWD.PACK GT SCH (05:32)
[2021-07-16] MEDS: BLOOD SUGAR DIAGNOSTIC 1 EACH STRIP VI SCH ×4 (05:33→17:28)
[2021-07-16 08:11] VITALS: BP 150/84
[2021-07-16] MEDS: [UNRECOGNIZED DRUG - OTHER] GT SCH ×2 (08:30→20:30)
[2021-07-16] MEDS: ACETAMINOPHEN GT SCH ×2 (08:30→20:30)
[2021-07-16] MEDS: TERAZOSIN 1 MG CAPSULE GT SCH (09:31)
[2021-07-16] MEDS: levETIRAcetam 500 MG/5 ML LIQUID UDC GT SCH ×2 (09:31→21:00)
[2021-07-16] MEDS: BACLOFEN 10 MG TABLET GT SCH ×2 (09:31→21:00)
[2021-07-16] MEDS: SODIUM HYPOCHLORITE 0.125% (QUARTER STRENGTH) 473 ML BOTTLE TP SCH ×2 (09:32→21:00)
[2021-07-16] MEDS: PHENOBARBITAL 97.2 MG TABLET GT SCH ×2 (09:32→21:00)
[2021-07-16] MEDS: AMANTADINE HCL 50 MG/5 ML GT SCH ×2 (09:32→21:00)
[2021-07-16] MEDS: FAMOTIDINE 20 MG TABLET GT SCH ×2 (09:32→21:00)
[2021-07-16] MEDS: COD LIVER OIL/ZINC OXIDE OINT 113 GM TUBE TP SCH ×6 (09:32→21:00)
[2021-07-16] MEDS: TRIAMCINOLONE ACET 0.1% CREAM 15 GM TUBE TP SCH ×10 (09:32→21:00)
[2021-07-16] MEDS: METOPROLOL TARTRATE 25 MG TABLET GT SCH ×2 (09:32→21:00)
[2021-07-16] MEDS: NYSTATIN CREAM 30 GM TUBE TP SCH ×8 (09:33→21:00)
[2021-07-16] MEDS: HEPARIN SODIUM,PORCINE 5,000 UNITS/ML VIAL SQ SCH ×2 (09:33→22:00)
[2021-07-16] MEDS: VITAMINS A AND D OINT TP SCH ×2 (09:34→21:00)
[2021-07-16] MEDS: NEOMY/BACITRA/POLYMYXIN B OINT UD PACKET TP SCH ×2 (09:34→21:00)
[2021-07-16] MEDS: HYDROGEN PEROXIDE 3% 118 ML BOTTLE TP SCH ×2 (09:34→21:18)
[2021-07-16] MEDS: GLUCERNA 1.2 1000ML LIQUID GT PRN (11:58)
[2021-07-16] MEDS: GUAIFENESIN SUGAR FREE 100 MG/5 ML UDC GT PRN (17:57)
[2021-07-16 20:56] VITALS: BP 144/89
[2021-07-16] MEDS: ATORVASTATIN 40 MG TABLET PO SCH (21:00)
[2021-07-16] MEDS: ASCORBIC ACID 500 MG TABLET GT SCH (21:00)
[2021-07-16] MEDS: MINERAL OIL/PETROLAT OPHT OINT 3.5 GM TUBE EACHEYE SCH (21:00)
[2021-07-16] MEDS: THIAMINE HCL 100 MG TABLET GT SCH (21:00)
[2021-07-16] MEDS: hydrALAZINE HCL 25 MG TABLET GT SCH (21:00)
[2021-07-17] MEDS: BLOOD SUGAR DIAGNOSTIC 1 EACH STRIP VI SCH ×4 (00:48→18:08)
[2021-07-17] MEDS: INSULIN REGULAR, HUMAN 300 UNIT/3 ML VIAL SQ PRN ×3 (00:55→18:11)
[2021-07-17] MEDS: LEVALBUTEROL HCL 1.25 MG/0.5 ML NEB NEB SCH ×4 (01:19→18:52)
[2021-07-17] MEDS: IPRATROPIUM BROMIDE 0.5 MG/2.5 ML NEBU NEB SCH ×4 (01:19→18:52)
[2021-07-17] MEDS: GLUCERNA 1.2 1000ML LIQUID GT PRN (04:12)
[2021-07-17] MEDS: ARGININE/GLUTAMINE/CALCIUM BMB 1 EACH POWD.PACK GT SCH (05:45)
[2021-07-17] MEDS: LORAZEPAM 1 MG TABLET GT PRN (05:46)
[2021-07-17 08:00] VITALS: BP 162/75
[2021-07-17] MEDS: ACETAMINOPHEN GT SCH ×2 (08:20→20:54)
[2021-07-17] MEDS: [UNRECOGNIZED DRUG - OTHER] GT SCH ×2 (08:20→20:54)
[2021-07-17] MEDS: AMANTADINE HCL 50 MG/5 ML GT SCH ×2 (08:21→20:55)
[2021-07-17] MEDS: PHENOBARBITAL 97.2 MG TABLET GT SCH ×2 (08:21→20:55)
[2021-07-17] MEDS: levETIRAcetam 500 MG/5 ML LIQUID UDC GT SCH ×2 (08:21→20:54)
[2021-07-17] MEDS: FAMOTIDINE 20 MG TABLET GT SCH ×2 (08:21→20:55)
[2021-07-17] MEDS: BACLOFEN 10 MG TABLET GT SCH ×2 (08:21→20:54)
[2021-07-17] MEDS: TERAZOSIN 1 MG CAPSULE GT SCH (08:21)
[2021-07-17] MEDS: METOPROLOL TARTRATE 25 MG TABLET GT SCH ×2 (08:21→20:55)
[2021-07-17] MEDS: SODIUM HYPOCHLORITE 0.125% (QUARTER STRENGTH) 473 ML BOTTLE TP SCH ×2 (08:22→21:00)
[2021-07-17] MEDS: TRIAMCINOLONE ACET 0.1% CREAM 15 GM TUBE TP SCH ×10 (08:22→21:00)
[2021-07-17] MEDS: HEPARIN SODIUM,PORCINE 5,000 UNITS/ML VIAL SQ SCH ×2 (08:22→21:00)
[2021-07-17] MEDS: COD LIVER OIL/ZINC OXIDE OINT 113 GM TUBE TP SCH ×6 (08:22→20:55)
[2021-07-17] MEDS: NYSTATIN CREAM 30 GM TUBE TP SCH ×8 (08:23→20:56)
[2021-07-17] MEDS: VITAMINS A AND D OINT TP SCH ×2 (08:23→20:56)
[2021-07-17] MEDS: NEOMY/BACITRA/POLYMYXIN B OINT UD PACKET TP SCH ×2 (08:23→20:56)
[2021-07-17] MEDS: HYDROGEN PEROXIDE 3% 118 ML BOTTLE TP SCH ×2 (09:11→20:50)
[2021-07-17 20:13] VITALS: BP 137/86
[2021-07-17] MEDS: hydrALAZINE HCL 25 MG TABLET GT SCH (20:54)
[2021-07-17] MEDS: MINERAL OIL/PETROLAT OPHT OINT 3.5 GM TUBE EACHEYE SCH (20:54)
[2021-07-17] MEDS: THIAMINE HCL 100 MG TABLET GT SCH (20:55)
[2021-07-17] MEDS: ATORVASTATIN 40 MG TABLET PO SCH (20:55)
[2021-07-17] MEDS: ASCORBIC ACID 500 MG TABLET GT SCH (20:55)
[2021-07-18] MEDS: BLOOD SUGAR DIAGNOSTIC 1 EACH STRIP VI SCH ×4 (00:02→18:20)
[2021-07-18] MEDS: INSULIN REGULAR, HUMAN 300 UNIT/3 ML VIAL SQ PRN ×3 (00:30→18:22)
[2021-07-18] MEDS: LEVALBUTEROL HCL 1.25 MG/0.5 ML NEB NEB SCH ×4 (00:36→19:10)
[2021-07-18] MEDS: IPRATROPIUM BROMIDE 0.5 MG/2.5 ML NEBU NEB SCH ×4 (00:36→19:10)
[2021-07-18] MEDS: ARGININE/GLUTAMINE/CALCIUM BMB 1 EACH POWD.PACK GT SCH (06:00)
[2021-07-18 06:33] LABS: HEMATOCRIT 36.1 % (36.7-47.1); MEAN CORPUSCULAR HEMOGLOBIN 29.2 uug (23.8-33.4); MEAN CORPUSCULAR VOLUME 88.8 fL (73.0-96.2); PLATELET COUNT (AUTO) 266 K/uL (152-348)
[2021-07-18 07:06] LABS: ALANINE AMINOTRANSFERASE 33 U/L (16-63); ALKALINE PHOSPHATASE 180 U/L (50-136); ASPARTATE AMINOTRANSFERASE 23 U/L (15-37); BILIRUBIN,TOTAL 0.2 mg/dL (0.2-1.0); CARBON DIOXIDE 30 mmol/L (21-32); CHLORIDE 98 mmol/L (98-107); CREATININE 0.4 mg/dL (0.6-1.3); GLUCOSE 127 mg/dL (74-106); MAGNESIUM 2.2 mg/dL (1.8-2.4); PHOSPHOROUS 4.2 mg/dL (2.5-4.9); POTASSIUM 4.5 mmol/L (3.5-5.1); TOTAL PROTEIN, SERUM 8.1 g/dL (6.4-8.2); UREA NITROGEN, BLOOD 24 mg/dL (7-18)
[2021-07-18] MEDS: ACETAMINOPHEN GT SCH ×2 (08:47→21:03)
[2021-07-18] MEDS: PHENOBARBITAL 97.2 MG TABLET GT SCH ×2 (08:47→21:04)
[2021-07-18] MEDS: AMANTADINE HCL 50 MG/5 ML GT SCH ×2 (08:47→21:04)
[2021-07-18] MEDS: [UNRECOGNIZED DRUG - OTHER] GT SCH ×2 (08:47→21:03)
[2021-07-18] MEDS: SODIUM HYPOCHLORITE 0.125% (QUARTER STRENGTH) 473 ML BOTTLE TP SCH ×2 (08:47→21:00)
[2021-07-18] MEDS: COD LIVER OIL/ZINC OXIDE OINT 113 GM TUBE TP SCH ×6 (08:47→21:04)
[2021-07-18] MEDS: BACLOFEN 10 MG TABLET GT SCH ×2 (08:47→21:03)
[2021-07-18] MEDS: levETIRAcetam 500 MG/5 ML LIQUID UDC GT SCH ×2 (08:47→21:03)
[2021-07-18] MEDS: FAMOTIDINE 20 MG TABLET GT SCH ×2 (08:47→21:04)
[2021-07-18] MEDS: NYSTATIN CREAM 30 GM TUBE TP SCH ×8 (08:48→21:00)
[2021-07-18] MEDS: TRIAMCINOLONE ACET 0.1% CREAM 15 GM TUBE TP SCH ×10 (08:48→21:05)
[2021-07-18] MEDS: VITAMINS A AND D OINT TP SCH ×2 (08:49→21:00)
[2021-07-18] MEDS: NEOMY/BACITRA/POLYMYXIN B OINT UD PACKET TP SCH ×2 (08:49→21:00)
[2021-07-18] MEDS: TERAZOSIN 1 MG CAPSULE GT SCH (08:56)
[2021-07-18] MEDS: HEPARIN SODIUM,PORCINE 5,000 UNITS/ML VIAL SQ SCH ×2 (08:57→21:00)
[2021-07-18] MEDS: METOPROLOL TARTRATE 25 MG TABLET GT SCH ×2 (09:00→21:04)
[2021-07-18] MEDS: HYDROGEN PEROXIDE 3% 118 ML BOTTLE TP SCH ×2 (09:00→21:00)
[2021-07-18 12:00] VITALS: BP 139/75
[2021-07-18 18:25] VITALS: BP 145/75
[2021-07-18 19:55] VITALS: BP 138/82
[2021-07-18] MEDS: MINERAL OIL/PETROLAT OPHT OINT 3.5 GM TUBE EACHEYE SCH (21:03)
[2021-07-18] MEDS: hydrALAZINE HCL 25 MG TABLET GT SCH (21:03)
[2021-07-18] MEDS: ATORVASTATIN 40 MG TABLET PO SCH (21:04)
[2021-07-18] MEDS: ASCORBIC ACID 500 MG TABLET GT SCH (21:04)
[2021-07-18] MEDS: THIAMINE HCL 100 MG TABLET GT SCH (21:04)
[2021-07-19] MEDS: BLOOD SUGAR DIAGNOSTIC 1 EACH STRIP VI SCH ×5 (00:51→23:30)
[2021-07-19] MEDS: LEVALBUTEROL HCL 1.25 MG/0.5 ML NEB NEB SCH ×4 (02:25→19:12)
[2021-07-19] MEDS: IPRATROPIUM BROMIDE 0.5 MG/2.5 ML NEBU NEB SCH ×4 (02:25→19:12)
[2021-07-19] MEDS: GUAIFENESIN SUGAR FREE 100 MG/5 ML UDC GT PRN (02:55)
[2021-07-19] MEDS: GLUCERNA 1.2 1000ML LIQUID GT PRN ×2 (02:55→22:19)
[2021-07-19] MEDS: LORAZEPAM 1 MG TABLET GT PRN (04:30)
[2021-07-19] MEDS: ARGININE/GLUTAMINE/CALCIUM BMB 1 EACH POWD.PACK GT SCH (05:16)
[2021-07-19] MEDS: [UNRECOGNIZED DRUG - OTHER] GT SCH ×2 (07:56→20:30)
[2021-07-19] MEDS: ACETAMINOPHEN GT SCH ×2 (07:56→20:30)
[2021-07-19 08:00] VITALS: BP 170/99
[2021-07-19] MEDS: levETIRAcetam 500 MG/5 ML LIQUID UDC GT SCH ×2 (08:07→20:48)
[2021-07-19] MEDS: BACLOFEN 10 MG TABLET GT SCH ×2 (08:07→20:48)
[2021-07-19] MEDS: TERAZOSIN 1 MG CAPSULE GT SCH (08:07)
[2021-07-19] MEDS: FAMOTIDINE 20 MG TABLET GT SCH ×2 (08:08→20:48)
[2021-07-19] MEDS: METOPROLOL TARTRATE 25 MG TABLET GT SCH ×2 (08:08→20:48)
[2021-07-19] MEDS: PHENOBARBITAL 97.2 MG TABLET GT SCH ×2 (08:08→20:48)
[2021-07-19] MEDS: AMANTADINE HCL 50 MG/5 ML GT SCH ×2 (08:08→20:48)
[2021-07-19] MEDS: HEPARIN SODIUM,PORCINE 5,000 UNITS/ML VIAL SQ SCH ×2 (08:09→20:49)
[2021-07-19] MEDS: SODIUM HYPOCHLORITE 0.125% (QUARTER STRENGTH) 473 ML BOTTLE TP SCH ×2 (08:10→20:50)
[2021-07-19] MEDS: TRIAMCINOLONE ACET 0.1% CREAM 15 GM TUBE TP SCH ×10 (08:11→20:51)
[2021-07-19] MEDS: NYSTATIN CREAM 30 GM TUBE TP SCH ×8 (08:11→20:51)
[2021-07-19] MEDS: COD LIVER OIL/ZINC OXIDE OINT 113 GM TUBE TP SCH ×6 (08:11→20:50)
[2021-07-19] MEDS: VITAMINS A AND D OINT TP SCH ×2 (08:12→20:52)
[2021-07-19] MEDS: NEOMY/BACITRA/POLYMYXIN B OINT UD PACKET TP SCH ×2 (08:12→20:52)
[2021-07-19] MEDS: HYDROGEN PEROXIDE 3% 118 ML BOTTLE TP SCH ×2 (08:50→21:14)
[2021-07-19] MEDS: INSULIN REGULAR, HUMAN 300 UNIT/3 ML VIAL SQ PRN ×3 (11:45→23:31)
--- NOTE | 2021-07-19 14:54 | NUR ---
Seen and examined by Cari Gil with no new orders.
--- NOTE | 2021-07-19 18:16 | NUR ---
Seen by Jacquelin Weller Np,no new orders.
[2021-07-19 18:28] VITALS: BP 143/89
[2021-07-19 19:56] VITALS: BP 156/82
[2021-07-19] MEDS: ASCORBIC ACID 500 MG TABLET GT SCH (20:48)
[2021-07-19] MEDS: THIAMINE HCL 100 MG TABLET GT SCH (20:48)
[2021-07-19] MEDS: hydrALAZINE HCL 25 MG TABLET GT SCH (20:48)
[2021-07-19] MEDS: MINERAL OIL/PETROLAT OPHT OINT 3.5 GM TUBE EACHEYE SCH (20:48)
[2021-07-19] MEDS: ATORVASTATIN 40 MG TABLET PO SCH (20:48)
[2021-07-20 00:33] VITALS: BP 129/73
[2021-07-20] MEDS: LEVALBUTEROL HCL 1.25 MG/0.5 ML NEB NEB SCH ×4 (01:28→19:02)
[2021-07-20] MEDS: IPRATROPIUM BROMIDE 0.5 MG/2.5 ML NEBU NEB SCH ×4 (01:28→19:02)
[2021-07-20] MEDS: HYDROCODONE/APAP 5-325MG TABLET GT PRN (04:00)
[2021-07-20] MEDS: LORAZEPAM 1 MG TABLET GT PRN (04:00)
[2021-07-20] MEDS: GUAIFENESIN SUGAR FREE 100 MG/5 ML UDC GT PRN (05:00)
[2021-07-20] MEDS: ARGININE/GLUTAMINE/CALCIUM BMB 1 EACH POWD.PACK GT SCH (05:42)
[2021-07-20] MEDS: BLOOD SUGAR DIAGNOSTIC 1 EACH STRIP VI SCH ×3 (05:42→17:53)
[2021-07-20] MEDS: INSULIN REGULAR, HUMAN 300 UNIT/3 ML VIAL SQ PRN ×3 (05:43→17:54)
[2021-07-20 06:28] VITALS: BP 137/83
[2021-07-20 07:41] VITALS: BP 160/94
[2021-07-20] MEDS: [UNRECOGNIZED DRUG - OTHER] GT SCH ×2 (08:13→20:30)
[2021-07-20] MEDS: ACETAMINOPHEN GT SCH ×2 (08:13→20:30)
[2021-07-20] MEDS: TERAZOSIN 1 MG CAPSULE GT SCH (08:14)
[2021-07-20] MEDS: levETIRAcetam 500 MG/5 ML LIQUID UDC GT SCH ×2 (08:14→20:40)
[2021-07-20] MEDS: AMANTADINE HCL 50 MG/5 ML GT SCH ×2 (08:15→20:42)
[2021-07-20] MEDS: BACLOFEN 10 MG TABLET GT SCH ×2 (08:15→20:42)
[2021-07-20] MEDS: PHENOBARBITAL 97.2 MG TABLET GT SCH ×2 (08:15→20:42)
[2021-07-20] MEDS: FAMOTIDINE 20 MG TABLET GT SCH ×2 (08:15→20:42)
[2021-07-20] MEDS: METOPROLOL TARTRATE 25 MG TABLET GT SCH ×2 (08:15→20:42)
[2021-07-20] MEDS: HYDROGEN PEROXIDE 3% 118 ML BOTTLE TP SCH ×2 (08:19→21:06)
[2021-07-20] MEDS: HEPARIN SODIUM,PORCINE 5,000 UNITS/ML VIAL SQ SCH ×2 (08:24→20:50)
[2021-07-20] MEDS: TRIAMCINOLONE ACET 0.1% CREAM 15 GM TUBE TP SCH ×10 (08:25→20:44)
[2021-07-20] MEDS: COD LIVER OIL/ZINC OXIDE OINT 113 GM TUBE TP SCH ×6 (08:25→20:44)
[2021-07-20] MEDS: SODIUM HYPOCHLORITE 0.125% (QUARTER STRENGTH) 473 ML BOTTLE TP SCH ×2 (08:25→20:44)
[2021-07-20] MEDS: NYSTATIN CREAM 30 GM TUBE TP SCH ×8 (08:26→20:45)
[2021-07-20] MEDS: NEOMY/BACITRA/POLYMYXIN B OINT UD PACKET TP SCH ×2 (08:27→20:46)
[2021-07-20] MEDS: VITAMINS A AND D OINT TP SCH ×2 (08:27→20:46)
[2021-07-20 12:21] VITALS: BP 136/82
[2021-07-20 18:18] VITALS: BP 149/97
[2021-07-20 19:39] VITALS: BP 146/86
[2021-07-20] MEDS: GLUCERNA 1.2 1000ML LIQUID GT PRN (20:34)
[2021-07-20] MEDS: MINERAL OIL/PETROLAT OPHT OINT 3.5 GM TUBE EACHEYE SCH (20:40)
[2021-07-20] MEDS: hydrALAZINE HCL 25 MG TABLET GT SCH (20:40)
[2021-07-20] MEDS: ASCORBIC ACID 500 MG TABLET GT SCH (20:43)
[2021-07-20] MEDS: ATORVASTATIN 40 MG TABLET PO SCH (20:43)
[2021-07-20] MEDS: THIAMINE HCL 100 MG TABLET GT SCH (20:43)
[2021-07-21] VITALS (7 sets, daily range): BP systolic 102–239; BP diastolic 62–130
[2021-07-21] MEDS: BLOOD SUGAR DIAGNOSTIC 1 EACH STRIP VI SCH ×5 (00:14→23:32)
[2021-07-21] MEDS: INSULIN REGULAR, HUMAN 300 UNIT/3 ML VIAL SQ PRN ×5 (00:15→23:34)
[2021-07-21] MEDS: IPRATROPIUM BROMIDE 0.5 MG/2.5 ML NEBU NEB SCH ×4 (00:37→21:25)
[2021-07-21] MEDS: LEVALBUTEROL HCL 1.25 MG/0.5 ML NEB NEB SCH ×4 (00:37→21:25)
[2021-07-21] MEDS: IPRATROPIUM BROMIDE 0.5 MG/2.5 ML NEBU NEB PRN (04:00)
[2021-07-21] MEDS: GUAIFENESIN SUGAR FREE 100 MG/5 ML UDC GT PRN (04:00)
[2021-07-21] MEDS: LORAZEPAM 1 MG TABLET GT PRN ×2 (04:00→07:56)
--- NOTE | 2021-07-21 04:00 | NUR ---
Patient with labored breathing with wheezing, breathing treatment administered with minimal effectiveness. RR 26, Sats 96%. Continue to monitor. HOB elevated, enteral feedings held. Continue to monitor. CT 129 , RR26, sats 95%. still with labored breathing, breathing treatment of levabuterol administered. Suctioned only as needed. Pain also addressed. Breathing improved, will follow up with MD for additional treatment for asthma. Needs attended.
[2021-07-21] MEDS: HYDROCODONE/APAP 5-325MG TABLET GT PRN (05:22)
[2021-07-21] MEDS: LEVALBUTEROL HCL 1.25 MG/0.5 ML NEB NEB PRN (05:30)
[2021-07-21] MEDS: ARGININE/GLUTAMINE/CALCIUM BMB 1 EACH POWD.PACK GT SCH (06:12)
[2021-07-21] MEDS: HYDROGEN PEROXIDE 3% 118 ML BOTTLE TP SCH ×2 (07:12→21:24)
[2021-07-21] MEDS: [UNRECOGNIZED DRUG - OTHER] GT SCH ×2 (07:53→20:30)
[2021-07-21] MEDS: ACETAMINOPHEN GT SCH ×2 (07:53→20:30)
--- NOTE | 2021-07-21 08:00 | NUR ---
DR. PLATT WAS CALLED D/T PT. WITH ESCALATING SOB NOT RELIEVED WITH CURRENT MEDICAL ORDERS AND DR. PLATT WAS NOTIFIED PER PT'S FAMILY PT. HAS HX OF ASTHMA (PER PT'S FATHER AND DTR. SARBJIT) AND WITH NEW ORDERS CARRIED OUT.
[2021-07-21] MEDS: levETIRAcetam 500 MG/5 ML LIQUID UDC GT SCH ×2 (08:39→20:48)
[2021-07-21] MEDS: BACLOFEN 10 MG TABLET GT SCH ×2 (08:39→20:48)
[2021-07-21] MEDS: TERAZOSIN 1 MG CAPSULE GT SCH (08:39)
[2021-07-21] MEDS: AMANTADINE HCL 50 MG/5 ML GT SCH ×2 (08:40→20:49)
[2021-07-21] MEDS: HEPARIN SODIUM,PORCINE 5,000 UNITS/ML VIAL SQ SCH ×2 (08:40→21:03)
[2021-07-21] MEDS: METOPROLOL TARTRATE 25 MG TABLET GT SCH ×2 (08:40→20:49)
[2021-07-21] MEDS: SODIUM HYPOCHLORITE 0.125% (QUARTER STRENGTH) 473 ML BOTTLE TP SCH ×2 (08:40→20:51)
[2021-07-21] MEDS: COD LIVER OIL/ZINC OXIDE OINT 113 GM TUBE TP SCH ×6 (08:40→20:51)
[2021-07-21] MEDS: PHENOBARBITAL 97.2 MG TABLET GT SCH ×2 (08:40→20:49)
[2021-07-21] MEDS: FAMOTIDINE 20 MG TABLET GT SCH ×2 (08:40→20:49)
[2021-07-21] MEDS: TRIAMCINOLONE ACET 0.1% CREAM 15 GM TUBE TP SCH ×8 (08:41→20:52)
[2021-07-21] MEDS: NYSTATIN CREAM 30 GM TUBE TP SCH ×8 (08:41→20:52)
[2021-07-21] MEDS: VITAMINS A AND D OINT TP SCH ×2 (08:41→20:52)
[2021-07-21] MEDS: NEOMY/BACITRA/POLYMYXIN B OINT UD PACKET TP SCH ×2 (08:41→20:52)
[2021-07-21 08:44] LABS: ABG BASE EXCESS 4.7 mmol/L; ABG HCO3 28.8 mmol/L; ABG PCO2 41.2 mmHg (35.0-45.0); ABG PH 7.463 (7.350-7.450); ABG PO2 120.8 mmHg (75.0-100.0); ABG SITE LEFT RADIAL; ABG TOTAL HEMOGLOBIN 12.1 G/dL (13.5-18.0); COHb 0.6 % (0.5-1.5); MetHb 0.3 % (0.0-1.5); O2Hb 97.9 % (94.0-97.0)
[2021-07-21] MEDS ORDERED: methylPREDNISolone SOD SUCC 40 MG/ML VIAL IV ONE (09:00)
--- NOTE | 2021-07-21 09:00 | NUR ---
PT. WITH NO SOB ANYMORE ,NO MORE SEVERE WHEEZING ,NO CYANOSIS,NO MORE DIAPHORESIS SEE V/S RECORD.STABLE B/P TOO ,ON CONT. MONITORING AND VISUAL CHECKS.
--- NOTE | 2021-07-21 14:05 | NUR ---
INTERDISCIPLINARY PLAN OF CARE CONFERENCE was held today. Patients daughter, Janis Molina, and father, Arden Molina, chose not to participate in the meeting today. Dr. Peralta and the Interdisciplinary Team reviewed the current plan of care in detail. RN reported on patient's medical condition and noted pt visited the emergency room twice in the past few weeks. In one instance, he returned in a couple days and the other time, he was on the acute side for 7 days. See RN IDT conference notes. No major changes in patient's current condition were reported by nursing or by any of the other disciplines. See all other disciplines IDT notes and physician's progress notes for additional details.
[2021-07-21] MEDS ORDERED: methylPREDNISolone SOD SUCC 40 MG/ML VIAL IV SCH (15:00)
[2021-07-21] MEDS: methylPREDNISolone SOD SUCC 40 MG/ML VIAL IV SCH ×2 (15:04→21:00)
[2021-07-21] MEDS: GLUCERNA 1.2 1000ML LIQUID GT PRN (18:39)
[2021-07-21] MEDS: MINERAL OIL/PETROLAT OPHT OINT 3.5 GM TUBE EACHEYE SCH (20:46)
[2021-07-21] MEDS: hydrALAZINE HCL 25 MG TABLET GT SCH (20:47)
[2021-07-21] MEDS: THIAMINE HCL 100 MG TABLET GT SCH (20:50)
[2021-07-21] MEDS: ATORVASTATIN 40 MG TABLET PO SCH (20:51)
[2021-07-21] MEDS: ASCORBIC ACID 500 MG TABLET GT SCH (20:51)
[2021-07-22 00:57] VITALS: BP 130/73
[2021-07-22] MEDS: IPRATROPIUM BROMIDE 0.5 MG/2.5 ML NEBU NEB SCH ×4 (01:24→19:15)
[2021-07-22] MEDS: LEVALBUTEROL HCL 1.25 MG/0.5 ML NEB NEB SCH ×4 (01:25→19:15)
[2021-07-22] MEDS: methylPREDNISolone SOD SUCC 40 MG/ML VIAL IV SCH ×3 (02:56→16:50)
[2021-07-22] MEDS: ARGININE/GLUTAMINE/CALCIUM BMB 1 EACH POWD.PACK GT SCH (05:27)
[2021-07-22] MEDS: BLOOD SUGAR DIAGNOSTIC 1 EACH STRIP VI SCH ×4 (05:27→23:12)
[2021-07-22] MEDS: INSULIN REGULAR, HUMAN 300 UNIT/3 ML VIAL SQ PRN ×4 (05:32→23:13)
[2021-07-22 07:45] VITALS: BP 137/74
[2021-07-22] MEDS: [UNRECOGNIZED DRUG - OTHER] GT SCH ×2 (08:20→20:15)
[2021-07-22] MEDS: TERAZOSIN 1 MG CAPSULE GT SCH (08:20)
[2021-07-22] MEDS: BACLOFEN 10 MG TABLET GT SCH ×2 (08:20→20:16)
[2021-07-22] MEDS: levETIRAcetam 500 MG/5 ML LIQUID UDC GT SCH ×2 (08:20→20:16)
[2021-07-22] MEDS: ACETAMINOPHEN GT SCH ×2 (08:20→20:15)
[2021-07-22] MEDS: METOPROLOL TARTRATE 25 MG TABLET GT SCH ×2 (08:21→20:16)
[2021-07-22] MEDS: FAMOTIDINE 20 MG TABLET GT SCH ×2 (08:21→20:16)
[2021-07-22] MEDS: PHENOBARBITAL 97.2 MG TABLET GT SCH ×2 (08:21→20:16)
[2021-07-22] MEDS: AMANTADINE HCL 50 MG/5 ML GT SCH ×2 (08:21→20:16)
[2021-07-22] MEDS: HEPARIN SODIUM,PORCINE 5,000 UNITS/ML VIAL SQ SCH ×2 (08:29→20:54)
[2021-07-22] MEDS: SODIUM HYPOCHLORITE 0.125% (QUARTER STRENGTH) 473 ML BOTTLE TP SCH ×2 (08:30→20:55)
[2021-07-22] MEDS: COD LIVER OIL/ZINC OXIDE OINT 113 GM TUBE TP SCH ×6 (08:30→20:55)
[2021-07-22] MEDS: NYSTATIN CREAM 30 GM TUBE TP SCH ×8 (08:31→20:56)
[2021-07-22] MEDS: NEOMY/BACITRA/POLYMYXIN B OINT UD PACKET TP SCH ×2 (08:31→20:56)
[2021-07-22] MEDS: TRIAMCINOLONE ACET 0.1% CREAM 15 GM TUBE TP SCH ×8 (08:31→20:56)
[2021-07-22] MEDS: VITAMINS A AND D OINT TP SCH ×2 (08:31→20:56)
[2021-07-22] MEDS: HYDROGEN PEROXIDE 3% 118 ML BOTTLE TP SCH ×2 (09:00→21:06)
--- NOTE | 2021-07-22 09:00 | NUR ---
PT. WAS SEEN AND EXAMINED BY DR. WEBSTER AND WITH NEW ORDERS CARRIED OUT.
[2021-07-22 12:41] VITALS: BP 135/84
[2021-07-22] MEDS: GLUCERNA 1.2 1000ML LIQUID GT PRN (16:05)
[2021-07-22 18:08] VITALS: BP 130/72
[2021-07-22 20:01] VITALS: BP 149/77
[2021-07-22] MEDS: ASCORBIC ACID 500 MG TABLET GT SCH (20:16)
[2021-07-22] MEDS: ATORVASTATIN 40 MG TABLET PO SCH (20:16)
[2021-07-22] MEDS: MINERAL OIL/PETROLAT OPHT OINT 3.5 GM TUBE EACHEYE SCH (20:16)
[2021-07-22] MEDS: hydrALAZINE HCL 25 MG TABLET GT SCH (20:16)
[2021-07-22] MEDS: THIAMINE HCL 100 MG TABLET GT SCH (20:16)
[2021-07-23] MEDS: IPRATROPIUM BROMIDE 0.5 MG/2.5 ML NEBU NEB SCH ×4 (00:38→19:08)
[2021-07-23] MEDS: LEVALBUTEROL HCL 1.25 MG/0.5 ML NEB NEB SCH ×4 (00:39→19:08)
[2021-07-23] MEDS: INSULIN REGULAR, HUMAN 300 UNIT/3 ML VIAL SQ PRN ×4 (05:31→23:38)
[2021-07-23] MEDS: BLOOD SUGAR DIAGNOSTIC 1 EACH STRIP VI SCH ×4 (05:31→23:37)
[2021-07-23] MEDS: ARGININE/GLUTAMINE/CALCIUM BMB 1 EACH POWD.PACK GT SCH (05:31)
[2021-07-23] MEDS: LORAZEPAM 1 MG TABLET GT PRN (05:32)
[2021-07-23] MEDS: HYDROCODONE/APAP 5-325MG TABLET GT PRN (05:33)
[2021-07-23 06:19] VITALS: BP 135/88
[2021-07-23 07:58] VITALS: BP 136/84
[2021-07-23] MEDS: methylPREDNISolone SOD SUCC 40 MG/ML VIAL IV SCH ×2 (08:10→17:00)
[2021-07-23] MEDS: HYDROGEN PEROXIDE 3% 118 ML BOTTLE TP SCH ×2 (08:30→21:00)
[2021-07-23] MEDS: ACETAMINOPHEN GT SCH ×2 (08:42→20:21)
[2021-07-23] MEDS: [UNRECOGNIZED DRUG - OTHER] GT SCH ×2 (08:42→20:21)
[2021-07-23] MEDS: TERAZOSIN 1 MG CAPSULE GT SCH (08:43)
[2021-07-23] MEDS: levETIRAcetam 500 MG/5 ML LIQUID UDC GT SCH ×2 (08:43→20:22)
[2021-07-23] MEDS: BACLOFEN 10 MG TABLET GT SCH ×2 (08:43→20:22)
[2021-07-23] MEDS: PHENOBARBITAL 97.2 MG TABLET GT SCH ×2 (08:44→20:22)
[2021-07-23] MEDS: FAMOTIDINE 20 MG TABLET GT SCH ×2 (08:44→20:22)
[2021-07-23] MEDS: AMANTADINE HCL 50 MG/5 ML GT SCH ×2 (08:44→20:22)
[2021-07-23] MEDS: METOPROLOL TARTRATE 25 MG TABLET GT SCH ×2 (08:44→20:22)
[2021-07-23] MEDS: SODIUM HYPOCHLORITE 0.125% (QUARTER STRENGTH) 473 ML BOTTLE TP SCH ×2 (08:45→20:51)
[2021-07-23] MEDS: COD LIVER OIL/ZINC OXIDE OINT 113 GM TUBE TP SCH ×6 (08:46→20:51)
[2021-07-23] MEDS: HEPARIN SODIUM,PORCINE 5,000 UNITS/ML VIAL SQ SCH ×2 (08:46→20:51)
[2021-07-23] MEDS: TRIAMCINOLONE ACET 0.1% CREAM 15 GM TUBE TP SCH ×8 (08:47→20:51)
[2021-07-23] MEDS: NYSTATIN CREAM 30 GM TUBE TP SCH ×8 (08:47→20:51)
[2021-07-23] MEDS: VITAMINS A AND D OINT TP SCH ×2 (08:48→20:52)
[2021-07-23] MEDS: NEOMY/BACITRA/POLYMYXIN B OINT UD PACKET TP SCH ×2 (08:48→20:52)
--- NOTE | 2021-07-23 17:05 | NUR ---
PER PT'S DTR. SARBJIT IT'S OK TO GIVE HIM FLU VACCINE.
[2021-07-23 20:13] VITALS: BP 142/71
[2021-07-23] MEDS: MINERAL OIL/PETROLAT OPHT OINT 3.5 GM TUBE EACHEYE SCH (20:21)
[2021-07-23] MEDS: hydrALAZINE HCL 25 MG TABLET GT SCH (20:22)
[2021-07-23] MEDS: THIAMINE HCL 100 MG TABLET GT SCH (20:22)
[2021-07-23] MEDS: ASCORBIC ACID 500 MG TABLET GT SCH (20:22)
[2021-07-23] MEDS: ATORVASTATIN 40 MG TABLET PO SCH (20:22)
[2021-07-24] MEDS: IPRATROPIUM BROMIDE 0.5 MG/2.5 ML NEBU NEB SCH ×4 (01:00→19:07)
[2021-07-24] MEDS: LEVALBUTEROL HCL 1.25 MG/0.5 ML NEB NEB SCH ×4 (01:00→19:07)
[2021-07-24] MEDS: BLOOD SUGAR DIAGNOSTIC 1 EACH STRIP VI SCH ×4 (05:41→23:36)
[2021-07-24] MEDS: ARGININE/GLUTAMINE/CALCIUM BMB 1 EACH POWD.PACK GT SCH (05:41)
[2021-07-24] MEDS: INSULIN REGULAR, HUMAN 300 UNIT/3 ML VIAL SQ PRN ×4 (05:42→23:39)
[2021-07-24 06:16] VITALS: BP 154/88
[2021-07-24] MEDS: HYDROCODONE/APAP 5-325MG TABLET GT PRN (06:48)
[2021-07-24] MEDS: LORAZEPAM 1 MG TABLET GT PRN (06:48)
[2021-07-24] MEDS: ACETAMINOPHEN GT SCH ×2 (08:30→20:17)
[2021-07-24] MEDS: [UNRECOGNIZED DRUG - OTHER] GT SCH ×2 (08:30→20:17)
[2021-07-24] MEDS: HYDROGEN PEROXIDE 3% 118 ML BOTTLE TP SCH ×2 (09:00→21:11)
[2021-07-24] MEDS: methylPREDNISolone SOD SUCC 40 MG/ML VIAL IV SCH ×2 (09:00→17:00)
[2021-07-24] MEDS: TERAZOSIN 1 MG CAPSULE GT SCH (09:36)
[2021-07-24] MEDS: levETIRAcetam 500 MG/5 ML LIQUID UDC GT SCH ×2 (09:36→20:17)
[2021-07-24] MEDS: BACLOFEN 10 MG TABLET GT SCH ×2 (09:37→20:17)
[2021-07-24] MEDS: METOPROLOL TARTRATE 25 MG TABLET GT SCH ×2 (09:38→20:17)
[2021-07-24] MEDS: AMANTADINE HCL 50 MG/5 ML GT SCH ×2 (09:38→20:17)
[2021-07-24] MEDS: FAMOTIDINE 20 MG TABLET GT SCH ×2 (09:38→20:17)
[2021-07-24] MEDS: PHENOBARBITAL 97.2 MG TABLET GT SCH ×2 (09:38→20:17)
[2021-07-24] MEDS: SODIUM HYPOCHLORITE 0.125% (QUARTER STRENGTH) 473 ML BOTTLE TP SCH ×2 (09:39→20:53)
[2021-07-24] MEDS: COD LIVER OIL/ZINC OXIDE OINT 113 GM TUBE TP SCH ×6 (09:39→20:53)
[2021-07-24] MEDS: TRIAMCINOLONE ACET 0.1% CREAM 15 GM TUBE TP SCH ×8 (09:39→20:53)
[2021-07-24] MEDS: VITAMINS A AND D OINT TP SCH ×2 (09:40→20:53)
[2021-07-24] MEDS: NYSTATIN CREAM 30 GM TUBE TP SCH ×8 (09:40→20:53)
[2021-07-24] MEDS: NEOMY/BACITRA/POLYMYXIN B OINT UD PACKET TP SCH ×2 (09:40→20:53)
[2021-07-24] MEDS: HEPARIN SODIUM,PORCINE 5,000 UNITS/ML VIAL SQ SCH ×2 (09:48→20:53)
[2021-07-24 11:32] VITALS: BP 160/97
[2021-07-24] MEDS: GLUCERNA 1.2 1000ML LIQUID GT PRN (15:56)
[2021-07-24 20:15] VITALS: BP 139/84
[2021-07-24] MEDS: THIAMINE HCL 100 MG TABLET GT SCH (20:17)
[2021-07-24] MEDS: ATORVASTATIN 40 MG TABLET PO SCH (20:17)
[2021-07-24] MEDS: ASCORBIC ACID 500 MG TABLET GT SCH (20:17)
[2021-07-24] MEDS: MINERAL OIL/PETROLAT OPHT OINT 3.5 GM TUBE EACHEYE SCH (20:17)
[2021-07-24] MEDS: hydrALAZINE HCL 25 MG TABLET GT SCH (20:17)
[2021-07-25] MEDS: LEVALBUTEROL HCL 1.25 MG/0.5 ML NEB NEB SCH ×4 (01:01→19:02)
[2021-07-25] MEDS: IPRATROPIUM BROMIDE 0.5 MG/2.5 ML NEBU NEB SCH ×4 (01:01→19:02)
[2021-07-25] MEDS: HYDROCODONE/APAP 5-325MG TABLET GT PRN (03:33)
[2021-07-25] MEDS: LORAZEPAM 1 MG TABLET GT PRN (04:47)
[2021-07-25] MEDS: ARGININE/GLUTAMINE/CALCIUM BMB 1 EACH POWD.PACK GT SCH ×3 (05:44→17:00)
[2021-07-25] MEDS: INSULIN REGULAR, HUMAN 300 UNIT/3 ML VIAL SQ PRN ×3 (05:44→23:19)
[2021-07-25] MEDS: BLOOD SUGAR DIAGNOSTIC 1 EACH STRIP VI SCH ×4 (05:44→23:18)
[2021-07-25] MEDS: LEVALBUTEROL HCL 1.25 MG/0.5 ML NEB NEB PRN (05:44)
[2021-07-25] MEDS: IPRATROPIUM BROMIDE 0.5 MG/2.5 ML NEBU NEB PRN (05:44)
--- NOTE | 2021-07-25 06:30 | NUR ---
AFTER AM CARE AND WOUND TREATMENT PT STARTED LABORED WITH WHEEZING BREATHING.HOB ELEVATED AND SUCTION PRN .ATIVAN WAS GIVEN VIA GT AT 04.45 AND PAIN MEDICATION WAS GIVEN ORDERED .PT STILL HAS LABORED BREATHING ACCORDING FROM MD ORDERED SOLU-MEDROL 40MG IV DAILY FOR ADDITIONAL TREATMENT FOR ASTHMA AND SOLU-MEDROL 40 MG IV WAS GIVEN BY NURSE MANAGER LINE WAS NOTIFIED AND AWARE .INFORM IN CHANGE NURSE MORNING SHIFT REGRADING SOLU- MEDROL WAS ADMINISTERED AT 06.30AM .PT STILL IN BED ASLEEP NO SOB DISTRESS V/S STABLE CONTINUE MONITOR FOR CHANGE OF CONDITION.
[2021-07-25] MEDS: hydrALAZINE HCL 25 MG TABLET GT PRN (06:33)
[2021-07-25 06:40] VITALS: BP 161/90
[2021-07-25 07:28] LABS: HEMATOCRIT 33.5 % (36.7-47.1); MEAN CORPUSCULAR HEMOGLOBIN 29.3 uug (23.8-33.4); MEAN CORPUSCULAR VOLUME 87.6 fL (73.0-96.2); PLATELET COUNT (AUTO) 376 K/uL (152-348)
[2021-07-25 07:42] LABS: CARBON DIOXIDE 29 mmol/L (21-32); CHLORIDE 96 mmol/L (98-107); CREATININE 0.4 mg/dL (0.6-1.3); GLUCOSE 112 mg/dL (74-106); POTASSIUM 4.3 mmol/L (3.5-5.1); UREA NITROGEN, BLOOD 27 mg/dL (7-18)
[2021-07-25] MEDS: methylPREDNISolone SOD SUCC 40 MG/ML VIAL IV SCH (07:51)
[2021-07-25] MEDS: TERAZOSIN 1 MG CAPSULE GT SCH (08:07)
[2021-07-25] MEDS: [UNRECOGNIZED DRUG - OTHER] GT SCH ×2 (08:07→20:28)
[2021-07-25] MEDS: ACETAMINOPHEN GT SCH ×2 (08:07→20:28)
[2021-07-25] MEDS: METOPROLOL TARTRATE 25 MG TABLET GT SCH ×2 (08:08→20:29)
[2021-07-25] MEDS: levETIRAcetam 500 MG/5 ML LIQUID UDC GT SCH ×2 (08:08→20:28)
[2021-07-25] MEDS: BACLOFEN 10 MG TABLET GT SCH ×2 (08:08→20:28)
[2021-07-25] MEDS: AMANTADINE HCL 50 MG/5 ML GT SCH ×2 (08:09→20:29)
[2021-07-25] MEDS: FAMOTIDINE 20 MG TABLET GT SCH ×2 (08:09→20:29)
[2021-07-25] MEDS: HEPARIN SODIUM,PORCINE 5,000 UNITS/ML VIAL SQ SCH ×2 (08:10→21:38)
[2021-07-25] MEDS: COD LIVER OIL/ZINC OXIDE OINT 113 GM TUBE TP SCH ×6 (08:11→21:35)
[2021-07-25] MEDS: SODIUM HYPOCHLORITE 0.125% (QUARTER STRENGTH) 473 ML BOTTLE TP SCH ×2 (08:11→21:35)
[2021-07-25] MEDS: PHENOBARBITAL 97.2 MG TABLET GT SCH ×2 (08:19→20:29)
[2021-07-25 08:57] VITALS: BP 140/70
[2021-07-25] MEDS: HYDROGEN PEROXIDE 3% 118 ML BOTTLE TP SCH ×2 (09:13→21:05)
[2021-07-25] MEDS: TRIAMCINOLONE ACET 0.1% CREAM 15 GM TUBE TP SCH ×8 (09:30→21:35)
[2021-07-25] MEDS: VITAMINS A AND D OINT TP SCH ×2 (09:31→21:36)
[2021-07-25] MEDS: NEOMY/BACITRA/POLYMYXIN B OINT UD PACKET TP SCH ×2 (09:31→21:35)
[2021-07-25] MEDS: NYSTATIN CREAM 30 GM TUBE TP SCH ×8 (09:31→21:35)
--- NOTE | 2021-07-25 11:00 | NUR ---
SEEN AND EXAMINED BY FABY Montoya AND WITH NAMO.
[2021-07-25 11:43] VITALS: BP 119/77
[2021-07-25 12:49] VITALS: BP 134/79
[2021-07-25] MEDS: GLUCERNA 1.2 1000ML LIQUID GT PRN (15:44)
--- NOTE | 2021-07-25 16:00 | NUR ---
NEW ORDER WAS CARRIED OUT FROM DR. HENDERSON RECOMMENDED BY REG. SLOT MACHINE KEY PERSON.
[2021-07-25] MEDS: NUTRISOURCE FIBER 4 GM PACKET GT SCH (17:00)
[2021-07-25 18:03] VITALS: BP 143/87
--- NOTE | 2021-07-25 19:00 | NUR ---
resting. no acute distress. no episode of wheezing breathing or labored breathing this shift. due meds given and tolerated. needs attended. safety measures in place.
[2021-07-25] MEDS: hydrALAZINE HCL 25 MG TABLET GT SCH (20:28)
[2021-07-25] MEDS: MINERAL OIL/PETROLAT OPHT OINT 3.5 GM TUBE EACHEYE SCH (20:28)
[2021-07-25] MEDS: THIAMINE HCL 100 MG TABLET GT SCH (20:29)
[2021-07-25] MEDS: ASCORBIC ACID 500 MG TABLET GT SCH (20:29)
[2021-07-25] MEDS: ATORVASTATIN 40 MG TABLET PO SCH (20:29)
[2021-07-25 20:31] VITALS: BP 140/90
[2021-07-26] MEDS: IPRATROPIUM BROMIDE 0.5 MG/2.5 ML NEBU NEB SCH ×4 (00:41→20:37)
[2021-07-26] MEDS: LEVALBUTEROL HCL 1.25 MG/0.5 ML NEB NEB SCH ×4 (00:41→20:37)
[2021-07-26] MEDS: HYDROCODONE/APAP 5-325MG TABLET GT PRN ×2 (04:02→17:43)
[2021-07-26] MEDS: LORAZEPAM 1 MG TABLET GT PRN ×2 (04:02→17:42)
[2021-07-26] MEDS: BLOOD SUGAR DIAGNOSTIC 1 EACH STRIP VI SCH ×3 (05:28→17:26)
[2021-07-26] MEDS: INSULIN REGULAR, HUMAN 300 UNIT/3 ML VIAL SQ PRN ×3 (05:29→17:32)
[2021-07-26 06:15] VITALS: BP 150/90
[2021-07-26] MEDS: [UNRECOGNIZED DRUG - OTHER] GT SCH ×2 (08:28→20:27)
[2021-07-26] MEDS: ACETAMINOPHEN GT SCH ×2 (08:28→20:27)
[2021-07-26] MEDS: PHENOBARBITAL 97.2 MG TABLET GT SCH ×2 (08:31→20:28)
[2021-07-26 09:07] VITALS: BP 152/81
[2021-07-26] MEDS: BACLOFEN 10 MG TABLET GT SCH ×2 (09:38→20:27)
[2021-07-26] MEDS: HYDROGEN PEROXIDE 3% 118 ML BOTTLE TP SCH ×2 (09:38→20:42)
[2021-07-26] MEDS: FAMOTIDINE 20 MG TABLET GT SCH ×2 (09:38→20:28)
[2021-07-26] MEDS: ARGININE/GLUTAMINE/CALCIUM BMB 1 EACH POWD.PACK GT SCH ×2 (09:39→17:24)
[2021-07-26] MEDS: TERAZOSIN 1 MG CAPSULE GT SCH (09:39)
[2021-07-26] MEDS: METOPROLOL TARTRATE 25 MG TABLET GT SCH ×2 (09:40→20:28)
[2021-07-26] MEDS: levETIRAcetam 500 MG/5 ML LIQUID UDC GT SCH ×2 (09:43→20:27)
[2021-07-26] MEDS: NUTRISOURCE FIBER 4 GM PACKET GT SCH ×2 (09:43→17:24)
[2021-07-26] MEDS: AMANTADINE HCL 50 MG/5 ML GT SCH ×2 (09:44→20:28)
[2021-07-26] MEDS: COD LIVER OIL/ZINC OXIDE OINT 113 GM TUBE TP SCH ×6 (09:45→20:29)
[2021-07-26] MEDS: TRIAMCINOLONE ACET 0.1% CREAM 15 GM TUBE TP SCH ×8 (09:45→20:30)
[2021-07-26] MEDS: SODIUM HYPOCHLORITE 0.125% (QUARTER STRENGTH) 473 ML BOTTLE TP SCH ×2 (09:45→20:29)
[2021-07-26] MEDS: VITAMINS A AND D OINT TP SCH ×2 (09:46→20:30)
[2021-07-26] MEDS: NYSTATIN CREAM 30 GM TUBE TP SCH ×8 (09:46→20:31)
[2021-07-26] MEDS: NEOMY/BACITRA/POLYMYXIN B OINT UD PACKET TP SCH ×2 (09:46→20:30)
[2021-07-26] MEDS: HEPARIN SODIUM,PORCINE 5,000 UNITS/ML VIAL SQ SCH ×2 (09:48→21:27)
[2021-07-26] MEDS: methylPREDNISolone SOD SUCC 40 MG/ML VIAL IV SCH (09:48)
[2021-07-26 11:42] VITALS: BP 133/61
[2021-07-26] MEDS: GLUCERNA 1.2 1000ML LIQUID GT PRN (13:56)
[2021-07-26 17:07] VITALS: BP 123/74
[2021-07-26] MEDS: GUAIFENESIN SUGAR FREE 100 MG/5 ML UDC GT PRN (17:34)
--- NOTE | 2021-07-26 17:54 | NUR ---
MEDICATED ORDERED WITH ZOFRAN FOR ONE EPISODE OF NAUSEA AND VOMITING (GASTRIC CONTENT PARTIALLY DIGESTED FORMULA).CH. NURSE NOTIFIED.PT. WAS SEEN BY Jan OLMEDO (SX) AND WITH NNO.EFFECTIVE AT THIS TIME.
--- NOTE | 2021-07-26 17:55 | NUR ---
ASPIRATION PRECAUTIONS KEPT AT ALL TIMES,FREQUENT VISUAL CHECKS FOR COMFORT AND SAFETY.
--- NOTE | 2021-07-26 17:57 | NUR ---
PT. MEDICATED ORDERED FOR PAIN 5/10 (BITING HIS LOWER LIP VERY HARD AND AT RISK OF BREAKING HIS OWN SKIN AND EMILY BLE TO CONTROL IT)
--- NOTE | 2021-07-26 18:00 | NUR ---
MEDICATED ORDER WITH ROBITUSSIN ORDERED FOR COUGH ACCESSES AND EFFECTIVE AT THIS TIME.
--- NOTE | 2021-07-26 18:01 | NUR ---
V/S CHECKED(SEE RECORD)
[2021-07-26 20:00] VITALS: BP 131/79
[2021-07-26] MEDS: hydrALAZINE HCL 25 MG TABLET GT SCH (20:27)
[2021-07-26] MEDS: MINERAL OIL/PETROLAT OPHT OINT 3.5 GM TUBE EACHEYE SCH (20:27)
[2021-07-26] MEDS: ATORVASTATIN 40 MG TABLET PO SCH (20:28)
[2021-07-26] MEDS: THIAMINE HCL 100 MG TABLET GT SCH (20:28)
[2021-07-26] MEDS: ASCORBIC ACID 500 MG TABLET GT SCH (20:28)
[2021-07-27] MEDS: BLOOD SUGAR DIAGNOSTIC 1 EACH STRIP VI SCH ×4 (00:12→17:09)
[2021-07-27] MEDS: INSULIN REGULAR, HUMAN 300 UNIT/3 ML VIAL SQ PRN ×3 (00:15→17:10)
[2021-07-27] MEDS: IPRATROPIUM BROMIDE 0.5 MG/2.5 ML NEBU NEB SCH ×4 (01:02→19:05)
[2021-07-27] MEDS: LEVALBUTEROL HCL 1.25 MG/0.5 ML NEB NEB SCH ×4 (01:02→19:05)
[2021-07-27] MEDS: HYDROGEN PEROXIDE 3% 118 ML BOTTLE TP SCH ×2 (07:20→19:06)
[2021-07-27 07:53] VITALS: BP 144/82
[2021-07-27] MEDS: [UNRECOGNIZED DRUG - OTHER] GT SCH ×2 (08:12→20:27)
[2021-07-27] MEDS: ACETAMINOPHEN GT SCH ×2 (08:12→20:27)
[2021-07-27] MEDS: TERAZOSIN 1 MG CAPSULE GT SCH (08:15)
[2021-07-27] MEDS: levETIRAcetam 500 MG/5 ML LIQUID UDC GT SCH ×2 (08:15→20:28)
[2021-07-27] MEDS: ARGININE/GLUTAMINE/CALCIUM BMB 1 EACH POWD.PACK GT SCH ×2 (08:15→17:09)
[2021-07-27] MEDS: BACLOFEN 10 MG TABLET GT SCH ×2 (08:15→20:28)
[2021-07-27] MEDS: METOPROLOL TARTRATE 25 MG TABLET GT SCH ×2 (08:16→20:28)
[2021-07-27] MEDS: PHENOBARBITAL 97.2 MG TABLET GT SCH ×2 (08:16→20:29)
[2021-07-27] MEDS: FAMOTIDINE 20 MG TABLET GT SCH ×2 (08:16→20:28)
[2021-07-27] MEDS: NUTRISOURCE FIBER 4 GM PACKET GT SCH ×2 (08:16→17:09)
[2021-07-27] MEDS: AMANTADINE HCL 50 MG/5 ML GT SCH ×2 (08:17→20:29)
[2021-07-27] MEDS: HEPARIN SODIUM,PORCINE 5,000 UNITS/ML VIAL SQ SCH ×2 (08:19→21:00)
[2021-07-27] MEDS: SODIUM HYPOCHLORITE 0.125% (QUARTER STRENGTH) 473 ML BOTTLE TP SCH ×2 (08:20→20:29)
[2021-07-27] MEDS: TRIAMCINOLONE ACET 0.1% CREAM 15 GM TUBE TP SCH ×8 (08:20→20:30)
[2021-07-27] MEDS: COD LIVER OIL/ZINC OXIDE OINT 113 GM TUBE TP SCH ×6 (08:20→20:30)
[2021-07-27] MEDS: VITAMINS A AND D OINT TP SCH ×2 (08:30→20:31)
[2021-07-27] MEDS: NEOMY/BACITRA/POLYMYXIN B OINT UD PACKET TP SCH ×2 (08:30→20:31)
[2021-07-27] MEDS: NYSTATIN CREAM 30 GM TUBE TP SCH ×8 (08:30→20:31)
[2021-07-27] MEDS: methylPREDNISolone SOD SUCC 40 MG/ML VIAL IV SCH (09:08)
[2021-07-27 12:00] VITALS: BP 142/81
[2021-07-27 18:00] VITALS: BP 139/76
[2021-07-27 20:13] VITALS: BP 144/77
[2021-07-27] MEDS: hydrALAZINE HCL 25 MG TABLET GT SCH (20:27)
[2021-07-27] MEDS: MINERAL OIL/PETROLAT OPHT OINT 3.5 GM TUBE EACHEYE SCH (20:27)
[2021-07-27] MEDS: THIAMINE HCL 100 MG TABLET GT SCH (20:29)
[2021-07-27] MEDS: ATORVASTATIN 40 MG TABLET PO SCH (20:29)
[2021-07-27] MEDS: ASCORBIC ACID 500 MG TABLET GT SCH (20:29)
[2021-07-28] MEDS: LEVALBUTEROL HCL 1.25 MG/0.5 ML NEB NEB SCH ×4 (00:40→19:30)
[2021-07-28] MEDS: IPRATROPIUM BROMIDE 0.5 MG/2.5 ML NEBU NEB SCH ×4 (00:40→19:30)
[2021-07-28] MEDS: INSULIN REGULAR, HUMAN 300 UNIT/3 ML VIAL SQ PRN ×3 (01:16→17:14)
[2021-07-28] MEDS: LORAZEPAM 1 MG TABLET GT PRN (04:00)
[2021-07-28] MEDS: HYDROCODONE/APAP 5-325MG TABLET GT PRN (05:00)
[2021-07-28] MEDS: BLOOD SUGAR DIAGNOSTIC 1 EACH STRIP VI SCH ×4 (05:52→17:13)
[2021-07-28 07:52] VITALS: BP 143/78
[2021-07-28] MEDS: ACETAMINOPHEN GT SCH ×2 (08:12→21:06)
[2021-07-28] MEDS: [UNRECOGNIZED DRUG - OTHER] GT SCH ×2 (08:12→21:06)
[2021-07-28] MEDS: ARGININE/GLUTAMINE/CALCIUM BMB 1 EACH POWD.PACK GT SCH ×2 (08:14→17:13)
[2021-07-28] MEDS: levETIRAcetam 500 MG/5 ML LIQUID UDC GT SCH ×2 (08:14→21:07)
[2021-07-28] MEDS: TERAZOSIN 1 MG CAPSULE GT SCH (08:14)
[2021-07-28] MEDS: PHENOBARBITAL 97.2 MG TABLET GT SCH ×2 (08:15→21:08)
[2021-07-28] MEDS: FAMOTIDINE 20 MG TABLET GT SCH ×2 (08:15→21:08)
[2021-07-28] MEDS: NUTRISOURCE FIBER 4 GM PACKET GT SCH ×2 (08:15→17:13)
[2021-07-28] MEDS: BACLOFEN 10 MG TABLET GT SCH ×2 (08:15→21:07)
[2021-07-28] MEDS: METOPROLOL TARTRATE 25 MG TABLET GT SCH ×2 (08:15→21:08)
[2021-07-28] MEDS: AMANTADINE HCL 50 MG/5 ML GT SCH ×2 (08:15→21:17)
[2021-07-28] MEDS: HEPARIN SODIUM,PORCINE 5,000 UNITS/ML VIAL SQ SCH ×2 (08:17→21:00)
[2021-07-28] MEDS: SODIUM HYPOCHLORITE 0.125% (QUARTER STRENGTH) 473 ML BOTTLE TP SCH ×2 (08:19→21:17)
[2021-07-28] MEDS: COD LIVER OIL/ZINC OXIDE OINT 113 GM TUBE TP SCH ×6 (08:20→21:17)
[2021-07-28] MEDS: NYSTATIN CREAM 30 GM TUBE TP SCH ×8 (08:22→21:24)
[2021-07-28] MEDS: NEOMY/BACITRA/POLYMYXIN B OINT UD PACKET TP SCH ×2 (08:22→21:00)
[2021-07-28] MEDS: TRIAMCINOLONE ACET 0.1% CREAM 15 GM TUBE TP SCH ×8 (08:22→21:24)
[2021-07-28] MEDS: VITAMINS A AND D OINT TP SCH ×2 (08:22→21:00)
[2021-07-28] MEDS: methylPREDNISolone SOD SUCC 40 MG/ML VIAL IV SCH (08:27)
[2021-07-28] MEDS: HYDROGEN PEROXIDE 3% 118 ML BOTTLE TP SCH ×2 (09:00→20:35)
[2021-07-28 12:00] VITALS: BP 145/70
[2021-07-28 18:00] VITALS: BP 147/81
[2021-07-28 20:00] VITALS: BP 148/75
[2021-07-28] MEDS: hydrALAZINE HCL 25 MG TABLET GT SCH (21:07)
[2021-07-28] MEDS: MINERAL OIL/PETROLAT OPHT OINT 3.5 GM TUBE EACHEYE SCH (21:07)
[2021-07-28] MEDS: ATORVASTATIN 40 MG TABLET PO SCH (21:08)
[2021-07-28] MEDS: ASCORBIC ACID 500 MG TABLET GT SCH (21:08)
[2021-07-28] MEDS: THIAMINE HCL 100 MG TABLET GT SCH (21:08)
[2021-07-29] MEDS: BLOOD SUGAR DIAGNOSTIC 1 EACH STRIP VI SCH ×4 (00:22→17:52)
[2021-07-29] MEDS: IPRATROPIUM BROMIDE 0.5 MG/2.5 ML NEBU NEB SCH ×4 (01:25→19:40)
[2021-07-29] MEDS: LEVALBUTEROL HCL 1.25 MG/0.5 ML NEB NEB SCH ×4 (01:25→19:40)
[2021-07-29] MEDS: HYDROCODONE/APAP 5-325MG TABLET GT PRN (04:00)
[2021-07-29] MEDS: GUAIFENESIN SUGAR FREE 100 MG/5 ML UDC GT PRN (05:10)
[2021-07-29] MEDS: LORAZEPAM 1 MG TABLET GT PRN ×3 (05:10→15:00)
--- NOTE | 2021-07-29 05:54 | NUR ---
patient current temp 98.1, given narco plus ativan for pain and anxiety, effective after one hour, cont to monitor.
[2021-07-29 08:07] VITALS: BP 151/87
[2021-07-29] MEDS: [UNRECOGNIZED DRUG - OTHER] GT SCH ×2 (08:30→21:16)
[2021-07-29] MEDS: ACETAMINOPHEN GT SCH ×2 (08:30→21:16)
[2021-07-29] MEDS: TERAZOSIN 1 MG CAPSULE GT SCH (08:31)
[2021-07-29] MEDS: BACLOFEN 10 MG TABLET GT SCH ×2 (08:32→21:17)
[2021-07-29] MEDS: ARGININE/GLUTAMINE/CALCIUM BMB 1 EACH POWD.PACK GT SCH ×2 (08:32→17:52)
[2021-07-29] MEDS: METOPROLOL TARTRATE 25 MG TABLET GT SCH ×2 (08:32→21:17)
[2021-07-29] MEDS: NUTRISOURCE FIBER 4 GM PACKET GT SCH ×2 (08:32→17:52)
[2021-07-29] MEDS: levETIRAcetam 500 MG/5 ML LIQUID UDC GT SCH ×2 (08:32→21:17)
[2021-07-29] MEDS: PHENOBARBITAL 97.2 MG TABLET GT SCH ×2 (08:34→21:17)
[2021-07-29] MEDS: FAMOTIDINE 20 MG TABLET GT SCH ×2 (08:34→21:17)
[2021-07-29] MEDS: AMANTADINE HCL 50 MG/5 ML GT SCH ×2 (08:34→21:17)
[2021-07-29] MEDS: HEPARIN SODIUM,PORCINE 5,000 UNITS/ML VIAL SQ SCH ×2 (08:44→21:00)
[2021-07-29] MEDS: COD LIVER OIL/ZINC OXIDE OINT 113 GM TUBE TP SCH ×6 (08:44→21:18)
[2021-07-29] MEDS: SODIUM HYPOCHLORITE 0.125% (QUARTER STRENGTH) 473 ML BOTTLE TP SCH ×2 (08:44→21:00)
[2021-07-29] MEDS: NYSTATIN CREAM 30 GM TUBE TP SCH ×8 (08:45→21:00)
[2021-07-29] MEDS: TRIAMCINOLONE ACET 0.1% CREAM 15 GM TUBE TP SCH ×8 (08:45→21:00)
[2021-07-29] MEDS: VITAMINS A AND D OINT TP SCH ×2 (08:46→21:00)
[2021-07-29] MEDS: NEOMY/BACITRA/POLYMYXIN B OINT UD PACKET TP SCH ×2 (08:46→21:00)
[2021-07-29] MEDS: methylPREDNISolone SOD SUCC 40 MG/ML VIAL IV SCH (08:54)
[2021-07-29] MEDS: HYDROGEN PEROXIDE 3% 118 ML BOTTLE TP SCH ×2 (09:00→21:00)
--- NOTE | 2021-07-29 11:00 | NUR ---
Ativan for spasms
[2021-07-29 12:00] VITALS: BP 136/77
--- NOTE | 2021-07-29 12:00 | NUR ---
Noted wheezing, respirations 34, breathing tx given by Rt, seen by Dr. Peralta, no order given at this time, respirations decreased to 24 after breathing tx, comfort measures given, continue monitoring.
[2021-07-29] MEDS: INSULIN REGULAR, HUMAN 300 UNIT/3 ML VIAL SQ PRN ×2 (12:41→17:54)
--- NOTE | 2021-07-29 15:00 | NUR ---
Ativan given spasms
[2021-07-29 18:00] VITALS: BP 142/79
[2021-07-29 20:15] VITALS: BP 116/60
[2021-07-29] MEDS: MINERAL OIL/PETROLAT OPHT OINT 3.5 GM TUBE EACHEYE SCH (21:16)
[2021-07-29] MEDS: ASCORBIC ACID 500 MG TABLET GT SCH (21:17)
[2021-07-29] MEDS: ATORVASTATIN 40 MG TABLET PO SCH (21:17)
[2021-07-29] MEDS: hydrALAZINE HCL 25 MG TABLET GT SCH (21:17)
[2021-07-29] MEDS: THIAMINE HCL 100 MG TABLET GT SCH (21:17)
[2021-07-30] MEDS: LEVALBUTEROL HCL 1.25 MG/0.5 ML NEB NEB SCH ×4 (01:00→19:14)
[2021-07-30] MEDS: IPRATROPIUM BROMIDE 0.5 MG/2.5 ML NEBU NEB SCH ×4 (01:00→19:14)
[2021-07-30] MEDS: INSULIN REGULAR, HUMAN 300 UNIT/3 ML VIAL SQ PRN ×2 (02:00→13:07)
[2021-07-30] MEDS: GLUCERNA 1.2 1000ML LIQUID GT PRN (04:00)
[2021-07-30] MEDS: LORAZEPAM 1 MG TABLET GT PRN (04:00)
[2021-07-30] MEDS: HYDROCODONE/APAP 5-325MG TABLET GT PRN ×2 (05:00→16:33)
[2021-07-30] MEDS: NUTRISOURCE FIBER 4 GM PACKET GT SCH ×2 (06:21→18:09)
[2021-07-30] MEDS: ARGININE/GLUTAMINE/CALCIUM BMB 1 EACH POWD.PACK GT SCH ×2 (06:21→18:09)
[2021-07-30] MEDS: BLOOD SUGAR DIAGNOSTIC 1 EACH STRIP VI SCH ×4 (06:22→18:16)
[2021-07-30 08:04] VITALS: BP 143/95
[2021-07-30] MEDS: ACETAMINOPHEN GT SCH ×2 (08:46→20:30)
[2021-07-30] MEDS: [UNRECOGNIZED DRUG - OTHER] GT SCH ×2 (08:46→20:30)
[2021-07-30] MEDS: levETIRAcetam 500 MG/5 ML LIQUID UDC GT SCH ×2 (08:48→21:13)
[2021-07-30] MEDS: BACLOFEN 10 MG TABLET GT SCH ×2 (08:48→21:13)
[2021-07-30] MEDS: TERAZOSIN 1 MG CAPSULE GT SCH (08:48)
[2021-07-30] MEDS: FAMOTIDINE 20 MG TABLET GT SCH ×2 (08:49→21:13)
[2021-07-30] MEDS: AMANTADINE HCL 50 MG/5 ML GT SCH ×2 (08:49→21:15)
[2021-07-30] MEDS: METOPROLOL TARTRATE 25 MG TABLET GT SCH ×2 (08:49→21:13)
[2021-07-30] MEDS: PHENOBARBITAL 97.2 MG TABLET GT SCH ×2 (08:50→21:13)
[2021-07-30] MEDS: HEPARIN SODIUM,PORCINE 5,000 UNITS/ML VIAL SQ SCH ×2 (08:51→21:17)
[2021-07-30] MEDS: VITAMINS A AND D OINT TP SCH ×2 (09:00→21:20)
[2021-07-30] MEDS: methylPREDNISolone SOD SUCC 40 MG/ML VIAL IV SCH (09:09)
[2021-07-30] MEDS: TRIAMCINOLONE ACET 0.1% CREAM 15 GM TUBE TP SCH ×8 (09:58→21:18)
[2021-07-30] MEDS: SODIUM HYPOCHLORITE 0.125% (QUARTER STRENGTH) 473 ML BOTTLE TP SCH ×2 (09:58→21:17)
[2021-07-30] MEDS: NEOMY/BACITRA/POLYMYXIN B OINT UD PACKET TP SCH ×2 (09:58→21:20)
[2021-07-30] MEDS: NYSTATIN CREAM 30 GM TUBE TP SCH ×8 (09:58→21:18)
[2021-07-30] MEDS: COD LIVER OIL/ZINC OXIDE OINT 113 GM TUBE TP SCH ×6 (09:58→21:17)
[2021-07-30] MEDS: HYDROGEN PEROXIDE 3% 118 ML BOTTLE TP SCH ×2 (10:10→21:01)
[2021-07-30 12:00] VITALS: BP 133/74
[2021-07-30 18:00] VITALS: BP 139/79
[2021-07-30 20:03] VITALS: BP 134/80
[2021-07-30] MEDS: MINERAL OIL/PETROLAT OPHT OINT 3.5 GM TUBE EACHEYE SCH (21:11)
[2021-07-30] MEDS: hydrALAZINE HCL 25 MG TABLET GT SCH (21:12)
[2021-07-30] MEDS: THIAMINE HCL 100 MG TABLET GT SCH (21:15)
[2021-07-30] MEDS: ATORVASTATIN 40 MG TABLET PO SCH (21:15)
[2021-07-30] MEDS: ASCORBIC ACID 500 MG TABLET GT SCH (21:15)
[2021-07-31] VITALS (7 sets, daily range): BP systolic 127–151; BP diastolic 64–80
[2021-07-31] MEDS: INSULIN REGULAR, HUMAN 300 UNIT/3 ML VIAL SQ PRN ×3 (00:37→17:10)
[2021-07-31] MEDS: LEVALBUTEROL HCL 1.25 MG/0.5 ML NEB NEB SCH ×4 (01:00→19:38)
[2021-07-31] MEDS: IPRATROPIUM BROMIDE 0.5 MG/2.5 ML NEBU NEB SCH ×4 (01:00→19:38)
[2021-07-31] MEDS: LORAZEPAM 1 MG TABLET GT PRN ×3 (05:00→17:47)
[2021-07-31] MEDS: GLUCERNA 1.2 1000ML LIQUID GT PRN (05:00)
[2021-07-31] MEDS: ARGININE/GLUTAMINE/CALCIUM BMB 1 EACH POWD.PACK GT SCH ×2 (05:16→17:09)
[2021-07-31] MEDS: NUTRISOURCE FIBER 4 GM PACKET GT SCH ×2 (05:16→17:09)
[2021-07-31] MEDS: BLOOD SUGAR DIAGNOSTIC 1 EACH STRIP VI SCH ×4 (05:17→17:09)
[2021-07-31] MEDS: HYDROGEN PEROXIDE 3% 118 ML BOTTLE TP SCH ×2 (08:30→20:08)
[2021-07-31] MEDS: methylPREDNISolone SOD SUCC 40 MG/ML VIAL IV SCH (08:37)
[2021-07-31] MEDS: ACETAMINOPHEN GT SCH ×2 (09:04→20:58)
[2021-07-31] MEDS: levETIRAcetam 500 MG/5 ML LIQUID UDC GT SCH ×2 (09:04→20:58)
[2021-07-31] MEDS: BACLOFEN 10 MG TABLET GT SCH ×2 (09:04→20:59)
[2021-07-31] MEDS: METOPROLOL TARTRATE 25 MG TABLET GT SCH ×2 (09:04→20:59)
[2021-07-31] MEDS: TERAZOSIN 1 MG CAPSULE GT SCH (09:04)
[2021-07-31] MEDS: [UNRECOGNIZED DRUG - OTHER] GT SCH ×2 (09:04→20:58)
[2021-07-31] MEDS: FAMOTIDINE 20 MG TABLET GT SCH ×2 (09:06→20:59)
[2021-07-31] MEDS: PHENOBARBITAL 97.2 MG TABLET GT SCH ×2 (09:06→20:59)
[2021-07-31] MEDS: AMANTADINE HCL 50 MG/5 ML GT SCH ×2 (09:06→20:59)
[2021-07-31] MEDS: NEOMY/BACITRA/POLYMYXIN B OINT UD PACKET TP SCH ×2 (09:08→21:01)
[2021-07-31] MEDS: TRIAMCINOLONE ACET 0.1% CREAM 15 GM TUBE TP SCH ×8 (09:08→21:00)
[2021-07-31] MEDS: VITAMINS A AND D OINT TP SCH ×2 (09:08→21:01)
[2021-07-31] MEDS: HEPARIN SODIUM,PORCINE 5,000 UNITS/ML VIAL SQ SCH ×2 (09:08→21:00)
[2021-07-31] MEDS: SODIUM HYPOCHLORITE 0.125% (QUARTER STRENGTH) 473 ML BOTTLE TP SCH ×2 (09:08→21:00)
[2021-07-31] MEDS: NYSTATIN CREAM 30 GM TUBE TP SCH ×8 (09:08→21:01)
[2021-07-31] MEDS: COD LIVER OIL/ZINC OXIDE OINT 113 GM TUBE TP SCH ×6 (09:08→21:00)
[2021-07-31] MEDS: HYDROCODONE/APAP 5-325MG TABLET GT PRN ×2 (11:00→22:00)
[2021-07-31] MEDS: MINERAL OIL/PETROLAT OPHT OINT 3.5 GM TUBE EACHEYE SCH (20:58)
[2021-07-31] MEDS: ATORVASTATIN 40 MG TABLET PO SCH (20:59)
[2021-07-31] MEDS: THIAMINE HCL 100 MG TABLET GT SCH (20:59)
[2021-07-31] MEDS: ASCORBIC ACID 500 MG TABLET GT SCH (20:59)
[2021-07-31] MEDS: hydrALAZINE HCL 25 MG TABLET GT SCH (20:59)
[2021-08-01] VITALS: BP 115/96
[2021-08-01] MEDS: IPRATROPIUM BROMIDE 0.5 MG/2.5 ML NEBU NEB SCH ×4 (01:00→19:06)
[2021-08-01] MEDS: LEVALBUTEROL HCL 1.25 MG/0.5 ML NEB NEB SCH ×4 (01:00→19:06)
[2021-08-01] MEDS: NUTRISOURCE FIBER 4 GM PACKET GT SCH ×2 (05:56→17:01)
[2021-08-01] MEDS: ARGININE/GLUTAMINE/CALCIUM BMB 1 EACH POWD.PACK GT SCH ×2 (05:56→17:01)
[2021-08-01] MEDS: BLOOD SUGAR DIAGNOSTIC 1 EACH STRIP VI SCH ×4 (05:56→17:12)
[2021-08-01] MEDS: LORAZEPAM 1 MG TABLET GT PRN ×2 (05:57→17:01)
[2021-08-01] MEDS: GLUCERNA 1.2 1000ML LIQUID GT PRN (05:57)
[2021-08-01] MEDS: GUAIFENESIN SUGAR FREE 100 MG/5 ML UDC GT PRN (05:58)
[2021-08-01 06:00] VITALS: BP 158/80
[2021-08-01] MEDS: INSULIN REGULAR, HUMAN 300 UNIT/3 ML VIAL SQ PRN ×3 (06:50→17:12)
[2021-08-01 07:40] VITALS: BP 140/91
[2021-08-01] MEDS: [UNRECOGNIZED DRUG - OTHER] GT SCH ×2 (07:46→20:49)
[2021-08-01] MEDS: ACETAMINOPHEN GT SCH ×2 (07:46→20:49)
[2021-08-01] MEDS: METOPROLOL TARTRATE 25 MG TABLET GT SCH ×2 (08:24→20:51)
[2021-08-01] MEDS: BACLOFEN 10 MG TABLET GT SCH ×2 (08:24→20:50)
[2021-08-01] MEDS: SODIUM HYPOCHLORITE 0.125% (QUARTER STRENGTH) 473 ML BOTTLE TP SCH ×2 (08:24→21:00)
[2021-08-01] MEDS: FAMOTIDINE 20 MG TABLET GT SCH ×2 (08:24→20:51)
[2021-08-01] MEDS: PHENOBARBITAL 97.2 MG TABLET GT SCH ×2 (08:24→20:51)
[2021-08-01] MEDS: COD LIVER OIL/ZINC OXIDE OINT 113 GM TUBE TP SCH ×6 (08:24→20:51)
[2021-08-01] MEDS: AMANTADINE HCL 50 MG/5 ML GT SCH ×2 (08:24→20:51)
[2021-08-01] MEDS: HEPARIN SODIUM,PORCINE 5,000 UNITS/ML VIAL SQ SCH ×2 (08:24→21:00)
[2021-08-01] MEDS: TERAZOSIN 1 MG CAPSULE GT SCH (08:24)
[2021-08-01] MEDS: levETIRAcetam 500 MG/5 ML LIQUID UDC GT SCH ×2 (08:24→20:50)
[2021-08-01] MEDS: NYSTATIN CREAM 30 GM TUBE TP SCH ×8 (08:25→20:52)
[2021-08-01] MEDS: VITAMINS A AND D OINT TP SCH ×2 (08:25→20:52)
[2021-08-01] MEDS: TRIAMCINOLONE ACET 0.1% CREAM 15 GM TUBE TP SCH ×8 (08:25→20:52)
[2021-08-01] MEDS: NEOMY/BACITRA/POLYMYXIN B OINT UD PACKET TP SCH ×2 (08:25→20:52)
[2021-08-01] MEDS: methylPREDNISolone SOD SUCC 40 MG/ML VIAL IV SCH (08:29)
[2021-08-01] MEDS: HYDROGEN PEROXIDE 3% 118 ML BOTTLE TP SCH ×2 (09:00→21:20)
[2021-08-01] MEDS: HYDROCODONE/APAP 5-325MG TABLET GT PRN (10:51)
--- NOTE | 2021-08-01 10:53 | NUR ---
Noted with facial grimacing 05/31. medicated with Plush prn.
[2021-08-01 12:00] VITALS: BP 148/73
--- NOTE | 2021-08-01 17:01 | NUR ---
ativan given prn for spasm. pt kept comfortable.
[2021-08-01 18:09] VITALS: BP 149/80
[2021-08-01 20:25] VITALS: BP 123/81
[2021-08-01] MEDS: MINERAL OIL/PETROLAT OPHT OINT 3.5 GM TUBE EACHEYE SCH (20:49)
[2021-08-01] MEDS: hydrALAZINE HCL 25 MG TABLET GT SCH (20:50)
[2021-08-01] MEDS: ASCORBIC ACID 500 MG TABLET GT SCH (20:51)
[2021-08-01] MEDS: ATORVASTATIN 40 MG TABLET PO SCH (20:51)
[2021-08-01] MEDS: THIAMINE HCL 100 MG TABLET GT SCH (20:51)
[2021-08-02] MEDS: BLOOD SUGAR DIAGNOSTIC 1 EACH STRIP VI SCH ×4 (00:59→17:25)
[2021-08-02] MEDS: IPRATROPIUM BROMIDE 0.5 MG/2.5 ML NEBU NEB SCH ×4 (01:14→19:40)
[2021-08-02] MEDS: LEVALBUTEROL HCL 1.25 MG/0.5 ML NEB NEB SCH ×4 (01:14→19:40)
[2021-08-02] MEDS: INSULIN REGULAR, HUMAN 300 UNIT/3 ML VIAL SQ PRN ×2 (01:16→11:20)
[2021-08-02] MEDS: HYDROCODONE/APAP 5-325MG TABLET GT PRN ×2 (04:00→17:00)
[2021-08-02 05:00] VITALS: BP 136/87
[2021-08-02] MEDS: LORAZEPAM 1 MG TABLET GT PRN ×2 (05:00→16:02)
[2021-08-02] MEDS: NUTRISOURCE FIBER 4 GM PACKET GT SCH ×2 (05:38→17:20)
[2021-08-02] MEDS: ARGININE/GLUTAMINE/CALCIUM BMB 1 EACH POWD.PACK GT SCH ×2 (05:38→17:20)
[2021-08-02] MEDS: GLUCERNA 1.2 1000ML LIQUID GT PRN (05:39)
[2021-08-02 07:27] VITALS: BP 142/77
[2021-08-02] MEDS: TERAZOSIN 1 MG CAPSULE GT SCH (08:51)
[2021-08-02] MEDS: [UNRECOGNIZED DRUG - OTHER] GT SCH ×2 (08:52→20:30)
[2021-08-02] MEDS: levETIRAcetam 500 MG/5 ML LIQUID UDC GT SCH ×2 (08:52→21:02)
[2021-08-02] MEDS: ACETAMINOPHEN GT SCH ×2 (08:52→20:30)
[2021-08-02] MEDS: METOPROLOL TARTRATE 25 MG TABLET GT SCH ×2 (08:53→21:03)
[2021-08-02] MEDS: BACLOFEN 10 MG TABLET GT SCH ×2 (08:53→21:03)
[2021-08-02] MEDS: FAMOTIDINE 20 MG TABLET GT SCH ×2 (08:54→21:03)
[2021-08-02] MEDS: AMANTADINE HCL 50 MG/5 ML GT SCH ×2 (08:54→21:03)
[2021-08-02] MEDS: HEPARIN SODIUM,PORCINE 5,000 UNITS/ML VIAL SQ SCH ×2 (09:00→21:06)
[2021-08-02] MEDS: PHENOBARBITAL 97.2 MG TABLET GT SCH ×2 (09:00→21:03)
[2021-08-02] MEDS: HYDROGEN PEROXIDE 3% 118 ML BOTTLE TP SCH ×2 (09:32→21:10)
[2021-08-02] MEDS: methylPREDNISolone SOD SUCC 40 MG/ML VIAL IV SCH (09:33)
[2021-08-02] MEDS: SODIUM HYPOCHLORITE 0.125% (QUARTER STRENGTH) 473 ML BOTTLE TP SCH ×2 (09:42→21:06)
[2021-08-02] MEDS: COD LIVER OIL/ZINC OXIDE OINT 113 GM TUBE TP SCH ×6 (09:42→21:06)
[2021-08-02] MEDS: NYSTATIN CREAM 30 GM TUBE TP SCH ×8 (09:43→21:08)
[2021-08-02] MEDS: TRIAMCINOLONE ACET 0.1% CREAM 15 GM TUBE TP SCH ×8 (09:43→21:07)
[2021-08-02] MEDS: VITAMINS A AND D OINT TP SCH ×2 (09:44→21:08)
[2021-08-02] MEDS: NEOMY/BACITRA/POLYMYXIN B OINT UD PACKET TP SCH ×2 (09:44→21:08)
[2021-08-02 12:00] VITALS: BP 139/82
[2021-08-02 18:27] VITALS: BP 138/80
[2021-08-02 20:23] VITALS: BP 141/81
[2021-08-02] MEDS: MINERAL OIL/PETROLAT OPHT OINT 3.5 GM TUBE EACHEYE SCH (21:01)
[2021-08-02] MEDS: hydrALAZINE HCL 25 MG TABLET GT SCH (21:02)
[2021-08-02] MEDS: ASCORBIC ACID 500 MG TABLET GT SCH (21:04)
[2021-08-02] MEDS: ATORVASTATIN 40 MG TABLET PO SCH (21:04)
[2021-08-02] MEDS: THIAMINE HCL 100 MG TABLET GT SCH (21:04)
[2021-08-03] MEDS: INSULIN REGULAR, HUMAN 300 UNIT/3 ML VIAL SQ PRN ×4 (00:18→17:25)
[2021-08-03] MEDS: BLOOD SUGAR DIAGNOSTIC 1 EACH STRIP VI SCH ×4 (00:20→17:18)
[2021-08-03] MEDS: LEVALBUTEROL HCL 1.25 MG/0.5 ML NEB NEB SCH ×4 (00:33→19:32)
[2021-08-03] MEDS: IPRATROPIUM BROMIDE 0.5 MG/2.5 ML NEBU NEB SCH ×4 (00:33→19:32)
[2021-08-03] MEDS: GLUCERNA 1.2 1000ML LIQUID GT PRN (00:46)
[2021-08-03 00:55] VITALS: BP 132/78
[2021-08-03] MEDS: HYDROCODONE/APAP 5-325MG TABLET GT PRN ×2 (04:00→17:55)
[2021-08-03] MEDS: LORAZEPAM 1 MG TABLET GT PRN ×2 (04:00→17:05)
[2021-08-03] MEDS: ARGININE/GLUTAMINE/CALCIUM BMB 1 EACH POWD.PACK GT SCH ×2 (05:45→17:14)
[2021-08-03] MEDS: NUTRISOURCE FIBER 4 GM PACKET GT SCH ×2 (05:45→17:18)
[2021-08-03 08:00] VITALS: BP 153/79
[2021-08-03] MEDS: HYDROGEN PEROXIDE 3% 118 ML BOTTLE TP SCH ×2 (08:22→21:01)
[2021-08-03] MEDS: methylPREDNISolone SOD SUCC 40 MG/ML VIAL IV SCH (08:32)
[2021-08-03] MEDS: PHENOBARBITAL 97.2 MG TABLET GT SCH ×2 (08:36→20:50)
[2021-08-03] MEDS: METOPROLOL TARTRATE 25 MG TABLET GT SCH ×2 (08:37→20:50)
[2021-08-03] MEDS: TERAZOSIN 1 MG CAPSULE GT SCH (08:39)
[2021-08-03] MEDS: FAMOTIDINE 20 MG TABLET GT SCH ×2 (08:40→20:50)
[2021-08-03] MEDS: levETIRAcetam 500 MG/5 ML LIQUID UDC GT SCH ×2 (08:40→20:48)
[2021-08-03] MEDS: BACLOFEN 10 MG TABLET GT SCH ×2 (08:40→20:50)
[2021-08-03] MEDS: AMANTADINE HCL 50 MG/5 ML GT SCH ×2 (08:40→20:51)
[2021-08-03] MEDS: HEPARIN SODIUM,PORCINE 5,000 UNITS/ML VIAL SQ SCH ×2 (08:42→20:53)
[2021-08-03] MEDS: [UNRECOGNIZED DRUG - OTHER] GT SCH ×2 (09:00→20:30)
[2021-08-03] MEDS: ACETAMINOPHEN GT SCH ×2 (09:00→20:30)
[2021-08-03] MEDS: VITAMINS A AND D OINT TP SCH ×2 (09:00→20:55)
[2021-08-03] MEDS: SODIUM HYPOCHLORITE 0.125% (QUARTER STRENGTH) 473 ML BOTTLE TP SCH ×2 (10:00→20:53)
[2021-08-03] MEDS: COD LIVER OIL/ZINC OXIDE OINT 113 GM TUBE TP SCH ×6 (10:00→20:54)
[2021-08-03] MEDS: NYSTATIN CREAM 30 GM TUBE TP SCH ×8 (10:00→20:55)
[2021-08-03] MEDS: TRIAMCINOLONE ACET 0.1% CREAM 15 GM TUBE TP SCH ×8 (10:00→20:54)
[2021-08-03] MEDS: NEOMY/BACITRA/POLYMYXIN B OINT UD PACKET TP SCH ×2 (10:00→20:55)
[2021-08-03 13:00] VITALS: BP 144/79
[2021-08-03 18:00] VITALS: BP 149/87
--- NOTE | 2021-08-03 18:00 | NUR ---
Seen and examined by Dr Peralta,new orders noted.
[2021-08-03] MEDS: MINERAL OIL/PETROLAT OPHT OINT 3.5 GM TUBE EACHEYE SCH (20:47)
[2021-08-03] MEDS: hydrALAZINE HCL 25 MG TABLET GT SCH (20:48)
[2021-08-03] MEDS: THIAMINE HCL 100 MG TABLET GT SCH (20:51)
[2021-08-03] MEDS: ATORVASTATIN 40 MG TABLET PO SCH (20:52)
[2021-08-03] MEDS: ASCORBIC ACID 500 MG TABLET GT SCH (20:52)
[2021-08-03 20:58] VITALS: BP 138/81
[2021-08-04] MEDS: GLUCERNA 1.2 1000ML LIQUID GT PRN (00:56)
[2021-08-04] MEDS: LEVALBUTEROL HCL 1.25 MG/0.5 ML NEB NEB SCH ×4 (00:58→19:33)
[2021-08-04] MEDS: IPRATROPIUM BROMIDE 0.5 MG/2.5 ML NEBU NEB SCH ×4 (00:58→19:33)
[2021-08-04] MEDS: NUTRISOURCE FIBER 4 GM PACKET GT SCH ×2 (05:45→17:33)
[2021-08-04] MEDS: ARGININE/GLUTAMINE/CALCIUM BMB 1 EACH POWD.PACK GT SCH ×2 (05:45→17:33)
[2021-08-04] MEDS: BLOOD SUGAR DIAGNOSTIC 1 EACH STRIP VI SCH ×4 (05:46→17:33)
[2021-08-04] MEDS: INSULIN REGULAR, HUMAN 300 UNIT/3 ML VIAL SQ PRN ×3 (05:47→17:35)
[2021-08-04 07:37] VITALS: BP 135/78
[2021-08-04] MEDS: [UNRECOGNIZED DRUG - OTHER] GT SCH ×2 (08:53→20:30)
[2021-08-04] MEDS: ACETAMINOPHEN GT SCH ×2 (08:53→20:30)
[2021-08-04] MEDS: TERAZOSIN 1 MG CAPSULE GT SCH (08:54)
[2021-08-04] MEDS: BACLOFEN 10 MG TABLET GT SCH ×2 (08:55→21:11)
[2021-08-04] MEDS: METOPROLOL TARTRATE 25 MG TABLET GT SCH ×2 (08:55→21:11)
[2021-08-04] MEDS: levETIRAcetam 500 MG/5 ML LIQUID UDC GT SCH ×2 (08:55→21:11)
[2021-08-04] MEDS: PHENOBARBITAL 97.2 MG TABLET GT SCH ×2 (08:56→21:11)
[2021-08-04] MEDS: FAMOTIDINE 20 MG TABLET GT SCH ×2 (08:56→21:11)
[2021-08-04] MEDS: AMANTADINE HCL 50 MG/5 ML GT SCH ×2 (08:57→21:11)
[2021-08-04] MEDS ORDERED: predniSONE 10 MG TABLET GT SCH (09:00)
[2021-08-04] MEDS: TRIAMCINOLONE ACET 0.1% CREAM 15 GM TUBE TP SCH ×8 (09:00→21:14)
[2021-08-04] MEDS: NYSTATIN CREAM 30 GM TUBE TP SCH ×8 (09:00→21:15)
[2021-08-04] MEDS: VITAMINS A AND D OINT TP SCH ×2 (09:00→21:15)
[2021-08-04] MEDS: HYDROGEN PEROXIDE 3% 118 ML BOTTLE TP SCH ×2 (09:00→21:09)
[2021-08-04] MEDS: HEPARIN SODIUM,PORCINE 5,000 UNITS/ML VIAL SQ SCH ×2 (09:00→21:12)
[2021-08-04] MEDS: COD LIVER OIL/ZINC OXIDE OINT 113 GM TUBE TP SCH ×6 (09:00→21:13)
[2021-08-04] MEDS: NEOMY/BACITRA/POLYMYXIN B OINT UD PACKET TP SCH ×2 (09:00→21:15)
[2021-08-04] MEDS: SODIUM HYPOCHLORITE 0.125% (QUARTER STRENGTH) 473 ML BOTTLE TP SCH ×2 (09:30→21:12)
[2021-08-04] MEDS: LORAZEPAM 1 MG TABLET GT PRN (10:59)
[2021-08-04 12:00] VITALS: BP 136/84
[2021-08-04 18:19] VITALS: BP 148/71
[2021-08-04 20:07] VITALS: BP 137/80
[2021-08-04] MEDS: hydrALAZINE HCL 25 MG TABLET GT SCH (21:11)
[2021-08-04] MEDS: MINERAL OIL/PETROLAT OPHT OINT 3.5 GM TUBE EACHEYE SCH (21:11)
[2021-08-04] MEDS: THIAMINE HCL 100 MG TABLET GT SCH (21:11)
[2021-08-04] MEDS: ATORVASTATIN 40 MG TABLET PO SCH (21:12)
[2021-08-04] MEDS: ASCORBIC ACID 500 MG TABLET GT SCH (21:12)
[2021-08-05] MEDS: BLOOD SUGAR DIAGNOSTIC 1 EACH STRIP VI SCH ×2 (00:17→05:42)
[2021-08-05] MEDS: INSULIN REGULAR, HUMAN 300 UNIT/3 ML VIAL SQ PRN ×2 (00:19→05:47)
[2021-08-05] MEDS: GLUCERNA 1.2 1000ML LIQUID GT PRN (00:53)
[2021-08-05] MEDS: IPRATROPIUM BROMIDE 0.5 MG/2.5 ML NEBU NEB SCH ×2 (00:56→07:35)
[2021-08-05] MEDS: LEVALBUTEROL HCL 1.25 MG/0.5 ML NEB NEB SCH ×2 (00:56→07:35)
[2021-08-05] MEDS: LORAZEPAM 1 MG TABLET GT PRN ×2 (03:00→07:00)
[2021-08-05] MEDS: HYDROCODONE/APAP 5-325MG TABLET GT PRN ×2 (03:00→08:00)
[2021-08-05] MEDS: ARGININE/GLUTAMINE/CALCIUM BMB 1 EACH POWD.PACK GT SCH (05:41)
[2021-08-05] MEDS: NUTRISOURCE FIBER 4 GM PACKET GT SCH (05:41)
[2021-08-05] MEDS: LEVALBUTEROL HCL 1.25 MG/0.5 ML NEB NEB PRN (05:47)
[2021-08-05] MEDS: IPRATROPIUM BROMIDE 0.5 MG/2.5 ML NEBU NEB PRN (05:47)
--- NOTE | 2021-08-05 07:45 | NUR ---
Pt found with respiratory distress,RR42,o2 sat 84% BP 145 /97,rapid response was called,Call Dr Gina Shea ,left message with the answering service.pt has hematuria and bloody secretions.
[2021-08-05 07:49] VITALS: BP 145/97
[2021-08-05 08:00] VITALS: BP 160/106
--- NOTE | 2021-08-05 08:00 | NUR ---
Dr nieves didn't call back,Per rapid response team ,pt needs to be transfer to Er ,call Dr Peralta with orders to transfer pt to ER for evaluation .Left message to Kylie Pt's daughter.
--- NOTE | 2021-08-05 08:15 | NUR ---
Pt transfer to Er ,accompanied by 2 Nurses and the Rt,report Given to Maribeth Champion.Left message to Kylie pt's daughter and Arden Pt's father,no answer.
[2021-08-05] MEDS: HYDROGEN PEROXIDE 3% 118 ML BOTTLE TP SCH (08:44)
--- NOTE | 2021-08-05 09:00 | NUR ---
Arden pt's father call back,and made aware of patient condition,and transfer to Er for evaluation.
[2021-08-05] MEDS ORDERED: [UNRECOGNIZED DRUG - OTHER] EACHEYE (09:30)
[2021-08-05] MEDS ORDERED: POLY15DR27 EACHEYE (09:30)
[2021-08-05] MEDS ORDERED: BLOO-668 VI (09:30)
[2021-08-05] MEDS ORDERED: NYST15CR TP (09:30)
[2021-08-05] MEDS ORDERED: WHEAT DEXTRIN GT (09:30)
[2021-08-05] MEDS ORDERED: NEOM1OIN19 TP (09:30)
[2021-08-05] MEDS ORDERED: SODI480S2 TP (09:30)
[2021-08-05] MEDS ORDERED: PRED20TA GT (09:30)
[2021-08-05] MEDS ORDERED: ACET-73 GT ×2 (09:30)
[2021-08-05] MEDS ORDERED: ZINC57OI3 TP (09:30)
[2021-08-05] MEDS ORDERED: DEXT50VI3 IV (09:30)
[2021-08-05] MEDS ORDERED: ACET-2154 GT (09:30)
[2021-08-05] MEDS ORDERED: LEVA1.2528 NEB ×2 (09:30)
[2021-08-10] MEDS ORDERED: CEFE1PIG3 IV (19:38)
[2021-08-10] MEDS ORDERED: ENOX40DI SQ (19:38)
[2021-08-10] MEDS ORDERED: ATOR20TA GT (19:38)
[2021-08-10 21:00] VITALS: BP 144/78
[2021-08-10] MEDS: FAMOTIDINE 20 MG TABLET GT SCH (21:00)
[2021-08-10] MEDS: PHENOBARBITAL 97.2 MG TABLET GT SCH (21:00)
[2021-08-10] MEDS: ACETAMINOPHEN GT SCH (21:30)
[2021-08-10] MEDS: [UNRECOGNIZED DRUG - OTHER] GT SCH (21:30)
--- NOTE | 2021-08-10 21:30 | NUR ---
Re- admitted patient from Med -Surg unit, patient is with Tracheostomy, on 28% fi02, noted with foamy secretions, suctioned as needed, 02 sat is 99%, Gt feeding started, tolerating well, on isolation precaution for covid -19 admission protocol X 14 days. With ELIZABETH PICC, intact and no signs of infection,flushing well, on Cefepime 1 gram IVPB every 8 hours for URI, no adverse reactions noted. 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 Patiño catheter is draining well with yellow urine, turned and repositioned, kept clean and comfortable.
[2021-08-10 22:00] VITALS: BP 144/70
[2021-08-10] MEDS: ATORVASTATIN 20 MG TABLET GT SCH (22:00)
[2021-08-10] MEDS: ASCORBIC ACID 500 MG TABLET GT SCH (22:00)
[2021-08-10] MEDS: METOPROLOL TARTRATE 25 MG TABLET GT SCH (22:00)
[2021-08-10] MEDS: AMANTADINE HCL 50 MG/5 ML GT SCH (22:00)
[2021-08-10] MEDS: GLUCERNA 1.2 1000ML LIQUID GT PRN (22:00)
[2021-08-10] MEDS: THIAMINE HCL 100 MG TABLET GT SCH (22:00)
[2021-08-10] MEDS: BACLOFEN 10 MG TABLET GT SCH (22:00)
[2021-08-10] MEDS: NYSTATIN CREAM 30 GM TUBE TP SCH ×4 (23:00)
[2021-08-10] MEDS: SODIUM HYPOCHLORITE 0.125% (QUARTER STRENGTH) 473 ML BOTTLE TP SCH (23:00)
[2021-08-10] MEDS: NEOMY/BACITRA/POLYMYXIN B OINT UD PACKET TP SCH (23:00)
[2021-08-10] MEDS: COD LIVER OIL/ZINC OXIDE OINT 113 GM TUBE TP SCH ×3 (23:00)
[2021-08-10] MEDS: TRIAMCINOLONE ACET 0.1% CREAM 15 GM TUBE TP SCH ×4 (23:00)
[2021-08-10] MEDS: VITAMINS A AND D OINT TP SCH (23:00)
[2021-08-11] VITALS (7 sets, daily range): BP systolic 132–144; BP diastolic 74–88
[2021-08-11] MEDS: MINERAL OIL/PETROLAT OPHT OINT 3.5 GM TUBE EACHEYE SCH ×2 (00:03→20:31)
[2021-08-11] MEDS: CEFEPIME HCL 1 G in IV DEXTROSE 5% 50 ML IV SCH ×5 (00:08→23:32)
[2021-08-11] MEDS: NORMAL SALINE FLUSH 10 ML DISP.SYRIN IV SCH ×3 (01:00→20:34)
[2021-08-11] MEDS: BLOOD SUGAR DIAGNOSTIC 1 EACH STRIP VI SCH ×5 (01:01→23:24)
[2021-08-11] MEDS: NUTRISOURCE FIBER 4 GM PACKET GT SCH ×2 (05:28→17:50)
[2021-08-11] MEDS: ARGININE/GLUTAMINE/CALCIUM BMB 1 EACH POWD.PACK GT SCH ×2 (05:28→17:50)
[2021-08-11] MEDS: INSULIN REGULAR, HUMAN 300 UNIT/3 ML VIAL SQ PRN ×5 (06:00→23:26)
--- NOTE | 2021-08-11 07:33 | NUR ---
Left Message to Janis ( daughter) to call back.
[2021-08-11] MEDS: COD LIVER OIL/ZINC OXIDE OINT 113 GM TUBE TP SCH ×4 (09:00→20:35)
[2021-08-11] MEDS: MUPIROCIN 2% OINT 22 GM TUBE NS SCH ×2 (09:00→20:34)
[2021-08-11] MEDS: ENOXAPARIN SODIUM 40 MG/0.4 ML DISP.SYRIN SQ SCH (09:00)
--- NOTE | 2021-08-11 11:06 | NUR ---
SEEN AND EXAMINED BY DR. WEBSTER WITH NEW ORDERS, NOTED AND CARRIED.
[2021-08-11] MEDS ORDERED: IPRATROPIUM BROMIDE 0.5 MG/2.5 ML NEBU NEB PRN (11:54)
--- NOTE | 2021-08-11 12:10 | NUR ---
CALLED TO NOTIFY RESPONSIBLE REPUBLICAN OF READMISSION OF PATIENT BACK TO SUBACUTE. ABLE TO COMMUNICATE WITH PATIENT FATHER, CHERIE WATSON, MESSAGE LEFT AGAIN FOR DAUGHTER SARBJIT TO CALL BACK.
[2021-08-11] MEDS ORDERED: POLYVINYL ALCOHOL OPHT DROPS 15 ML BOTTLE EACHEYE PRN (12:15)
[2021-08-11] MEDS ORDERED: HYDROCODONE/APAP 5-325MG TABLET GT PRN (12:15)
[2021-08-11] MEDS ORDERED: LORAZEPAM 1 MG TABLET GT PRN (12:15)
[2021-08-11] MEDS ORDERED: DEXTROSE 50% 50 ML DISP.SYRIN IV PRN (12:15)
[2021-08-11] MEDS ORDERED: HYDROGEN PEROXIDE 3% 118 ML BOTTLE TP PRN (12:15)
[2021-08-11] MEDS ORDERED: LEVALBUTEROL HCL 1.25 MG/0.5 ML NEB NEB PRN (12:15)
[2021-08-11] MEDS ORDERED: DOCUSATE SODIUM 100 MG/10 ML LIQUID UDC GT PRN (12:15)
[2021-08-11] MEDS ORDERED: hydrALAZINE HCL 25 MG TABLET GT PRN (12:15)
[2021-08-11] MEDS ORDERED: ACETAMINOPHEN 650 MG/20 ML UDC- SA PATIENTS-PAIN ONLY GT PRN (12:15)
[2021-08-11] MEDS ORDERED: ACETAMINOPHEN 650 MG/20 ML UDC- SA PATIENTS-FEVER ONLY GT PRN (12:30)
[2021-08-11] MEDS: AMANTADINE HCL 50 MG/5 ML GT SCH ×2 (13:13→20:34)
[2021-08-11] MEDS: BACLOFEN 10 MG TABLET GT SCH ×2 (13:14→20:31)
[2021-08-11] MEDS: TERAZOSIN 1 MG CAPSULE GT SCH (13:14)
[2021-08-11] MEDS: PHENOBARBITAL 97.2 MG TABLET GT SCH ×2 (13:14→20:33)
[2021-08-11] MEDS: FAMOTIDINE 20 MG TABLET GT SCH ×2 (13:14→20:33)
[2021-08-11] MEDS: METOPROLOL TARTRATE 25 MG TABLET GT SCH ×2 (13:14→20:33)
[2021-08-11] MEDS: VITAMINS A AND D OINT TP SCH ×2 (13:14→20:36)
[2021-08-11] MEDS: IPRATROPIUM BROMIDE 0.5 MG/2.5 ML NEBU NEB SCH ×2 (14:10→18:50)
[2021-08-11] MEDS: LEVALBUTEROL HCL 1.25 MG/0.5 ML NEB NEB SCH ×2 (14:11→18:51)
--- NOTE | 2021-08-11 18:38 | NUR ---
CONTINUE ON CEFEPIME IVPB FOR URI. NO ADVERSE REACTION NOTED. RIGHT UPPER ARM PICC LINE DRESSING INTACT AND FLUSHING WELL WITH NO S/S OF INFECTION.
[2021-08-11] MEDS: HYDROGEN PEROXIDE 3% 118 ML BOTTLE TP SCH (20:21)
--- NOTE | 2021-08-11 20:25 | NUR ---
Added specialty mattress for wound management.
[2021-08-11] MEDS: ATORVASTATIN 20 MG TABLET GT SCH (20:31)
[2021-08-11] MEDS: ACETAMINOPHEN GT SCH (20:31)
[2021-08-11] MEDS: [UNRECOGNIZED DRUG - OTHER] GT SCH (20:31)
[2021-08-11] MEDS: levETIRAcetam 500 MG/5 ML LIQUID UDC GT SCH (20:31)
[2021-08-11] MEDS: predniSONE 20 MG TABLET GT SCH (20:33)
[2021-08-11] MEDS: THIAMINE HCL 100 MG TABLET GT SCH (20:34)
[2021-08-11] MEDS: ASCORBIC ACID 500 MG TABLET GT SCH (20:34)
[2021-08-11] MEDS: SODIUM HYPOCHLORITE 0.125% (QUARTER STRENGTH) 473 ML BOTTLE TP SCH (20:35)
[2021-08-11] MEDS: TRIAMCINOLONE ACET 0.1% CREAM 15 GM TUBE TP SCH ×4 (20:35)
[2021-08-11] MEDS: NYSTATIN CREAM 30 GM TUBE TP SCH ×4 (20:36)
[2021-08-11] MEDS: NEOMY/BACITRA/POLYMYXIN B OINT UD PACKET TP SCH (20:36)
[2021-08-11] MEDS ORDERED: predniSONE 10 MG TABLET GT SCH (21:00)
[2021-08-12] MEDS: IPRATROPIUM BROMIDE 0.5 MG/2.5 ML NEBU NEB SCH ×4 (00:55→19:53)
[2021-08-12] MEDS: LEVALBUTEROL HCL 1.25 MG/0.5 ML NEB NEB SCH ×4 (00:55→19:53)
[2021-08-12 01:00] VITALS: BP 134/75
--- NOTE | 2021-08-12 04:49 | NUR ---
Still on Cefepime 1 gram IVPB every 8 hours for URI, no adverse reactions noted. 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 Afebrile, no respiratory distress noted. Gt feeding toleratingwell, no vomiting noted.Wound care to sacral wound done. Patiño catheter is draining well with yellow urine, turned and repositioned, kept clean and comfortable.
[2021-08-12 05:10] VITALS: BP 145/82
[2021-08-12] MEDS: BLOOD SUGAR DIAGNOSTIC 1 EACH STRIP VI SCH ×3 (05:29→17:40)
[2021-08-12] MEDS: NUTRISOURCE FIBER 4 GM PACKET GT SCH ×2 (05:29→17:40)
[2021-08-12] MEDS: ARGININE/GLUTAMINE/CALCIUM BMB 1 EACH POWD.PACK GT SCH ×2 (05:29→17:40)
[2021-08-12] MEDS: INSULIN REGULAR, HUMAN 300 UNIT/3 ML VIAL SQ PRN ×3 (05:31→17:41)
[2021-08-12] MEDS: CEFEPIME HCL 1 G in IV DEXTROSE 5% 50 ML IV SCH ×2 (07:43→16:24)
[2021-08-12 07:58] VITALS: BP 132/78
[2021-08-12] MEDS: ACETAMINOPHEN GT SCH ×2 (08:51→20:58)
[2021-08-12] MEDS: levETIRAcetam 500 MG/5 ML LIQUID UDC GT SCH ×2 (08:51→20:58)
[2021-08-12] MEDS: BACLOFEN 10 MG TABLET GT SCH ×2 (08:51→20:58)
[2021-08-12] MEDS: [UNRECOGNIZED DRUG - OTHER] GT SCH ×2 (08:51→20:58)
[2021-08-12] MEDS: TERAZOSIN 1 MG CAPSULE GT SCH (08:51)
[2021-08-12] MEDS: FAMOTIDINE 20 MG TABLET GT SCH ×2 (08:52→20:59)
[2021-08-12] MEDS: PHENOBARBITAL 97.2 MG TABLET GT SCH ×2 (08:52→20:59)
[2021-08-12] MEDS: predniSONE 20 MG TABLET GT SCH ×2 (08:52→20:59)
[2021-08-12] MEDS: METOPROLOL TARTRATE 25 MG TABLET GT SCH ×2 (08:52→20:59)
[2021-08-12] MEDS: AMANTADINE HCL 50 MG/5 ML GT SCH ×2 (08:52→20:59)
[2021-08-12] MEDS: ENOXAPARIN SODIUM 40 MG/0.4 ML DISP.SYRIN SQ SCH (08:53)
[2021-08-12] MEDS: MUPIROCIN 2% OINT 22 GM TUBE NS SCH ×2 (08:53→21:00)
[2021-08-12] MEDS: COD LIVER OIL/ZINC OXIDE OINT 113 GM TUBE TP SCH ×4 (08:54→21:00)
[2021-08-12] MEDS: TRIAMCINOLONE ACET 0.1% CREAM 15 GM TUBE TP SCH ×8 (08:54→21:00)
[2021-08-12] MEDS: NYSTATIN CREAM 30 GM TUBE TP SCH ×8 (08:54→21:00)
[2021-08-12] MEDS: SODIUM HYPOCHLORITE 0.125% (QUARTER STRENGTH) 473 ML BOTTLE TP SCH ×2 (08:54→21:00)
[2021-08-12] MEDS: NEOMY/BACITRA/POLYMYXIN B OINT UD PACKET TP SCH ×2 (08:55→21:00)
[2021-08-12] MEDS: VITAMINS A AND D OINT TP SCH ×2 (08:55→21:00)
[2021-08-12] MEDS: NORMAL SALINE FLUSH 10 ML DISP.SYRIN IV SCH ×2 (09:00→21:00)
[2021-08-12] MEDS: HYDROGEN PEROXIDE 3% 118 ML BOTTLE TP SCH ×2 (09:00→21:31)
[2021-08-12 12:00] VITALS: BP 135/71
--- NOTE | 2021-08-12 16:00 | NUR ---
Clinical Social Work Note DELANEY called and left a voicemail for patient's daughter Janis [phone] to discuss patient receiving COVID 19 booster shot when available. Janis was not available and DELANEY will follow up.
[2021-08-12] MEDS: GLUCERNA 1.2 1000ML LIQUID GT PRN (17:41)
[2021-08-12 18:07] VITALS: BP 138/69
[2021-08-12 20:22] VITALS: BP 143/77
[2021-08-12] MEDS: ATORVASTATIN 20 MG TABLET GT SCH (20:58)
[2021-08-12] MEDS: MINERAL OIL/PETROLAT OPHT OINT 3.5 GM TUBE EACHEYE SCH (20:58)
[2021-08-12] MEDS: ASCORBIC ACID 500 MG TABLET GT SCH (20:59)
[2021-08-12] MEDS: THIAMINE HCL 100 MG TABLET GT SCH (20:59)
[2021-08-13] MEDS: CEFEPIME HCL 1 G in IV DEXTROSE 5% 50 ML IV SCH (00:05)
[2021-08-13 00:09] VITALS: BP 145/77
[2021-08-13] MEDS: INSULIN REGULAR, HUMAN 300 UNIT/3 ML VIAL SQ PRN ×2 (00:30→06:17)
[2021-08-13] MEDS: BLOOD SUGAR DIAGNOSTIC 1 EACH STRIP VI SCH ×2 (00:47→05:21)
[2021-08-13] MEDS: IPRATROPIUM BROMIDE 0.5 MG/2.5 ML NEBU NEB SCH ×2 (01:18→07:15)
[2021-08-13] MEDS: LEVALBUTEROL HCL 1.25 MG/0.5 ML NEB NEB SCH ×2 (01:18→07:16)
[2021-08-13 04:32] VITALS: BP 160/83
[2021-08-13 05:00] VITALS: BP 146/78
[2021-08-13] MEDS: NUTRISOURCE FIBER 4 GM PACKET GT SCH (05:21)
[2021-08-13] MEDS: ARGININE/GLUTAMINE/CALCIUM BMB 1 EACH POWD.PACK GT SCH (05:21)
[2021-08-13] MEDS: GLUCERNA 1.2 1000ML LIQUID GT PRN (05:54)
[2021-08-13 07:30] VITALS: BP 125/106
--- NOTE | 2021-08-13 08:30 | NUR ---
Pt has coffee ground vomiting ,has respiratory distress, s/s of aspiration ,RR 36,suctioned and lavage done,Bp 125/106,Hr 123,T 97.5,o2 sat 97%,rapid response called ,rapid response team evaluated the patient,new orders from Dr Bauer to transfer the patient to Er for evaluation.
--- NOTE | 2021-08-13 08:45 | NUR ---
Transfer the Patient to Er accompanied by the Rt and 2 nurses,report given to Mingo Rn,left message to Kylie Pt's daughter and Arden pt's father ,didn't call back.
--- NOTE | 2021-08-13 09:32 | NUR ---
Arden Petersen's father call back and notified him about the patient condition and the transfer to ER for evaluation.
[2021-08-13] MEDS ORDERED: INSU100V28 SQ (13:57)
[2021-08-13] MEDS ORDERED: MUPI22OI2 NS (14:01)
[2021-08-13] MEDS ORDERED: MINE3.5O44 EACHEYE (14:01)
[2021-08-13] MEDS ORDERED: IPRA0.2S48 NEB (14:01)
[2021-08-13] MEDS ORDERED: LEVA1.2528 IH (14:01)
[2021-08-13] MEDS ORDERED: NUT.237L30 GT (14:10)
[2021-08-13] MEDS ORDERED: TRIA15CR2 TP (14:11)
[2021-08-13] MEDS ORDERED: HYDR-894 PO (14:12)
[2021-08-13] MEDS ORDERED: PRED20TA GT ×2 (14:15)
[2021-08-14] MEDS: SODIUM HYPOCHLORITE 0.125% (QUARTER STRENGTH) 473 ML BOTTLE TP SCH (09:00)
[2021-08-14] MEDS: NYSTATIN CREAM 30 GM TUBE TP SCH ×3 (09:00)
[2021-08-14] MEDS: TRIAMCINOLONE ACET 0.1% CREAM 15 GM TUBE TP SCH ×3 (09:00)
[2021-08-15 05:09] LABS: HEMATOCRIT 36.9 % (36.7-47.1); MEAN CORPUSCULAR VOLUME 88.2 fL (73.0-96.2); PLATELET COUNT (AUTO) 247 K/uL (152-348)
[2021-08-15 05:22] LABS: CARBON DIOXIDE 29 mmol/L (21-32); CHLORIDE 98 mmol/L (98-107); CREATININE 0.5 mg/dL (0.6-1.3); GLUCOSE 140 mg/dL (74-106); POTASSIUM 3.7 mmol/L (3.5-5.1); UREA NITROGEN, BLOOD 14 mg/dL (7-18)
[2021-08-15] MEDS ORDERED: predniSONE 20 MG TABLET GT SCH (09:00)
[2021-08-17] MEDS ORDERED: Glucerna 1.2 GT (15:22)
[2021-08-17] MEDS ORDERED: RXVAN XX (15:22)
[2021-08-17] MEDS ORDERED: CEFE1FRO IV (15:22)
[2021-08-17] MEDS ORDERED: PANT40TA2 GT (15:28)
--- NOTE | 2021-08-17 16:10 | NUR ---
Pt arrived from CCU at this time on cool aerosol with fio2 30%. no sob noted. trach tube inline and secure.
--- NOTE | 2021-08-17 16:31 | NUR ---
Pt readmitted to subacute under the care of Dr Peralta and Dr Bauer group,received awake,no respiratory distress noted,on o2 30 % via p mist accompanied by 2 RT'S and By an RN Hannah,report received by Shana Champion.BP 138/79 P 89 R34 O2 sat 100% temp 97.4.Complete body check done.
[2021-08-17 16:37] VITALS: BP 138/79
[2021-08-17] MEDS ORDERED: DOCUSATE SODIUM 100 MG/10 ML LIQUID UDC GT PRN (19:00)
[2021-08-17] MEDS ORDERED: ACETAMINOPHEN 650 MG/20 ML UDC- SA PATIENTS-PAIN ONLY GT PRN (19:30)
[2021-08-17] MEDS ORDERED: POLYVINYL ALCOHOL OPHT DROPS 15 ML BOTTLE EACHEYE PRN (19:30)
[2021-08-17] MEDS ORDERED: ACETAMINOPHEN 650 MG/20 ML UDC- SA PATIENTS-FEVER ONLY GT PRN (19:30)
[2021-08-17] MEDS ORDERED: DEXTROSE 50% 50 ML DISP.SYRIN IV PRN (19:30)
[2021-08-17] MEDS ORDERED: HYDROGEN PEROXIDE 3% 118 ML BOTTLE TP PRN (19:45)
[2021-08-17 20:06] VITALS: BP 151/81
[2021-08-17] MEDS: ACETAMINOPHEN GT SCH (20:30)
[2021-08-17] MEDS: [UNRECOGNIZED DRUG - OTHER] GT SCH (20:30)
--- NOTE | 2021-08-17 20:53 | NUR ---
Called Dr. Hailey Polk received order of [place] 5/325 via Gtube q 6hrs PRN moderate to severe3 pain (4-10), Baclofen 10 mg via g-tube bid scheduled dose dx Spasticity. Order noted and carried out. Pharmacy aware.
[2021-08-17] MEDS: NEOMY/BACITRA/POLYMYXIN B OINT UD PACKET TP SCH (21:00)
[2021-08-17] MEDS: FAMOTIDINE 20 MG TABLET GT SCH (21:00)
[2021-08-17] MEDS: THIAMINE HCL 100 MG TABLET GT SCH (21:00)
[2021-08-17] MEDS: ATORVASTATIN 20 MG TABLET GT SCH (21:00)
[2021-08-17] MEDS: levETIRAcetam 500 MG/5 ML LIQUID UDC GT SCH (21:00)
[2021-08-17] MEDS: TRIAMCINOLONE ACET 0.1% CREAM 15 GM TUBE TP SCH (21:00)
[2021-08-17] MEDS: ASCORBIC ACID 500 MG TABLET GT SCH (21:00)
[2021-08-17] MEDS: MUPIROCIN 2% OINT 22 GM TUBE NS SCH (21:00)
[2021-08-17] MEDS ORDERED: NYSTATIN CREAM 30 GM TUBE TP SCH (21:00)
[2021-08-17] MEDS: MINERAL OIL/PETROLAT OPHT OINT 3.5 GM TUBE EACHEYE SCH (21:00)
[2021-08-17] MEDS: NORMAL SALINE FLUSH 10 ML DISP.SYRIN IV SCH (21:00)
[2021-08-17] MEDS ORDERED: BACLOFEN 10 MG TABLET GT SCH (21:00)
[2021-08-17] MEDS: PHENOBARBITAL 97.2 MG TABLET GT SCH (21:00)
[2021-08-17] MEDS: NYSTATIN CREAM 30 GM TUBE TP SCH ×2 (21:00)
[2021-08-17] MEDS: METOPROLOL TARTRATE 25 MG TABLET GT SCH (21:00)
[2021-08-17] MEDS: COD LIVER OIL/ZINC OXIDE OINT 113 GM TUBE TP SCH (21:00)
[2021-08-17] MEDS: AMANTADINE HCL 50 MG/5 ML GT SCH (21:00)
[2021-08-17] MEDS: VITAMINS A AND D OINT TP SCH (21:00)
[2021-08-17] MEDS: IPRATROPIUM BROMIDE 0.5 MG/2.5 ML NEBU NEB SCH (21:11)
[2021-08-17] MEDS: LEVALBUTEROL HCL 1.25 MG/0.5 ML NEB NEB SCH (21:12)
[2021-08-17] MEDS: HYDROGEN PEROXIDE 3% 118 ML BOTTLE TP SCH (21:15)
[2021-08-17] MEDS: VANCOMYCIN IV 1,250 MG in IV DEXTROSE 5% 250 ML IV SCH (22:00)
[2021-08-17] MEDS: CEFEPIME HCL 1 G in IV DEXTROSE 5% 50 ML IV SCH (22:07)
[2021-08-17] MEDS: GLUCERNA 1.2 1000ML LIQUID GT PRN (23:27)
[2021-08-18] MEDS: BLOOD SUGAR DIAGNOSTIC 1 EACH STRIP VI SCH ×4 (00:05→17:26)
[2021-08-18] MEDS: INSULIN REGULAR, HUMAN 300 UNIT/3 ML VIAL SQ PRN ×3 (00:08→11:55)
[2021-08-18] MEDS: IPRATROPIUM BROMIDE 0.5 MG/2.5 ML NEBU NEB SCH ×4 (01:27→20:24)
[2021-08-18] MEDS: LEVALBUTEROL HCL 1.25 MG/0.5 ML NEB NEB SCH ×4 (01:28→20:25)
[2021-08-18] MEDS: NUTRISOURCE FIBER 4 GM PACKET GT SCH ×2 (05:50→17:26)
[2021-08-18] MEDS: CEFEPIME HCL 1 G in IV DEXTROSE 5% 50 ML IV SCH ×3 (05:51→21:00)
[2021-08-18 07:27] LABS: HEMATOCRIT 35.4 % (36.7-47.1); MEAN CORPUSCULAR HEMOGLOBIN 29.2 uug (23.8-33.4); MEAN CORPUSCULAR VOLUME 87.4 fL (73.0-96.2); PLATELET COUNT (AUTO) 229 K/uL (152-348)
[2021-08-18 07:51] LABS: CARBON DIOXIDE 30 mmol/L (21-32); CHLORIDE 98 mmol/L (98-107); CREATININE 0.5 mg/dL (0.6-1.3); GLUCOSE 192 mg/dL (74-106); POTASSIUM 4.1 mmol/L (3.5-5.1); UREA NITROGEN, BLOOD 12 mg/dL (7-18)
[2021-08-18] MEDS: [UNRECOGNIZED DRUG - OTHER] GT SCH ×2 (08:30→21:15)
[2021-08-18] MEDS: ACETAMINOPHEN GT SCH ×2 (08:30→21:15)
[2021-08-18] MEDS ORDERED: ENOXAPARIN SODIUM 40 MG/0.4 ML DISP.SYRIN SQ SCH (09:00)
[2021-08-18] MEDS: HYDROGEN PEROXIDE 3% 118 ML BOTTLE TP SCH ×2 (09:00→21:03)
[2021-08-18] MEDS: NORMAL SALINE FLUSH 10 ML DISP.SYRIN IV SCH ×2 (09:00→21:05)
[2021-08-18] MEDS ORDERED: PANTOPRAZOLE ORAL SUSPENSION 40 MG SUSPDR.PKT GT SCH (09:00)
[2021-08-18] MEDS: levETIRAcetam 500 MG/5 ML LIQUID UDC GT SCH ×2 (09:32→21:16)
[2021-08-18] MEDS: METOPROLOL TARTRATE 25 MG TABLET GT SCH ×2 (09:32→21:22)
[2021-08-18] MEDS: BACLOFEN 10 MG TABLET GT SCH ×2 (09:32→17:26)
[2021-08-18] MEDS: PHENOBARBITAL 97.2 MG TABLET GT SCH ×2 (09:32→21:18)
[2021-08-18] MEDS: FAMOTIDINE 20 MG TABLET GT SCH ×2 (09:32→21:18)
[2021-08-18] MEDS: TERAZOSIN 1 MG CAPSULE GT SCH (09:32)
[2021-08-18] MEDS: AMANTADINE HCL 50 MG/5 ML GT SCH ×2 (09:33→21:20)
[2021-08-18] MEDS: TRIAMCINOLONE ACET 0.1% CREAM 15 GM TUBE TP SCH ×5 (09:33→21:20)
[2021-08-18] MEDS: VITAMINS A AND D OINT TP SCH ×2 (09:33→21:21)
[2021-08-18] MEDS: NEOMY/BACITRA/POLYMYXIN B OINT UD PACKET TP SCH ×2 (09:33→21:21)
[2021-08-18] MEDS: MUPIROCIN 2% OINT 22 GM TUBE NS SCH ×2 (09:33→21:20)
[2021-08-18] MEDS: NYSTATIN CREAM 30 GM TUBE TP SCH ×7 (09:33→21:21)
[2021-08-18] MEDS: COD LIVER OIL/ZINC OXIDE OINT 113 GM TUBE TP SCH ×2 (09:33→21:20)
[2021-08-18] MEDS: VANCOMYCIN IV 1,250 MG in IV DEXTROSE 5% 250 ML IV SCH ×2 (09:46→22:00)
--- NOTE | 2021-08-18 10:26 | NUR ---
NARES SPECIMEN FOR MRSA COLLECTED AND SENT TO LAB.
--- NOTE | 2021-08-18 10:50 | NUR ---
PT. WAS SEEN AND EXAMINED BY THIEN AND WITH NAMO.
[2021-08-18 12:00] VITALS: BP 145/69
--- NOTE | 2021-08-18 13:11 | NUR ---
NEW ORDER CARRIED OUT FROM THIEN ISMARADHA (I.D) TO STOP VANCOMYCIN AND CEFEPIME IV ON September.
--- NOTE | 2021-08-18 17:00 | NUR ---
SEEN BY DR. WEBSTER AND WITH NNO.
[2021-08-18 17:17] VITALS: BP 138/80
[2021-08-18] MEDS: SODIUM HYPOCHLORITE 0.125% (QUARTER STRENGTH) 473 ML BOTTLE TP SCH (21:12)
[2021-08-18] MEDS: MINERAL OIL/PETROLAT OPHT OINT 3.5 GM TUBE EACHEYE SCH (21:15)
[2021-08-18] MEDS: ATORVASTATIN 20 MG TABLET GT SCH (21:17)
[2021-08-18] MEDS: ASCORBIC ACID 500 MG TABLET GT SCH (21:20)
[2021-08-18] MEDS: THIAMINE HCL 100 MG TABLET GT SCH (21:20)
--- NOTE | 2021-08-18 22:00 | NUR ---
Vancomycin trough done tonight at 2100. Vancomycin trough result received 23.1 ug/ml (High) called [facility] after hour pharmacy spoke with Steven pharmacist. Vancomycin Trough level over 20 ug/ml. Vancomycin 1250 Q 12hr Held this dose of 2200 not given per Vancomycin trough level.
[2021-08-19] MEDS: LEVALBUTEROL HCL 1.25 MG/0.5 ML NEB NEB SCH ×4 (00:13→19:23)
[2021-08-19] MEDS: IPRATROPIUM BROMIDE 0.5 MG/2.5 ML NEBU NEB SCH ×4 (00:13→19:23)
[2021-08-19] MEDS: CEFEPIME HCL 1 G in IV DEXTROSE 5% 50 ML IV SCH ×3 (05:00→21:44)
[2021-08-19] MEDS: BLOOD SUGAR DIAGNOSTIC 1 EACH STRIP VI SCH ×4 (05:20→17:08)
[2021-08-19] MEDS: NUTRISOURCE FIBER 4 GM PACKET GT SCH ×2 (05:21→17:12)
[2021-08-19] MEDS: OMEPRAZOLE 20 MG CAPSULE.DR GT SCH (05:21)
--- NOTE | 2021-08-19 06:00 | NUR ---
Patient continue on IV ATB Cefepime Osteomyelitis as ordered by MD no complication or adverse reaction noted.
[2021-08-19] MEDS: NYSTATIN CREAM 30 GM TUBE TP SCH ×7 (09:00→21:38)
[2021-08-19] MEDS: NORMAL SALINE FLUSH 10 ML DISP.SYRIN IV SCH ×2 (09:00→21:44)
[2021-08-19] MEDS: TRIAMCINOLONE ACET 0.1% CREAM 15 GM TUBE TP SCH ×5 (09:00→21:38)
[2021-08-19] MEDS: SODIUM HYPOCHLORITE 0.125% (QUARTER STRENGTH) 473 ML BOTTLE TP SCH (09:00)
[2021-08-19] MEDS: [UNRECOGNIZED DRUG - OTHER] GT SCH ×2 (09:01→20:30)
[2021-08-19] MEDS: ACETAMINOPHEN GT SCH ×2 (09:01→20:30)
[2021-08-19] MEDS: PHENOBARBITAL 97.2 MG TABLET GT SCH ×2 (09:02→21:36)
[2021-08-19] MEDS: AMANTADINE HCL 50 MG/5 ML GT SCH ×2 (09:02→21:37)
[2021-08-19] MEDS: levETIRAcetam 500 MG/5 ML LIQUID UDC GT SCH ×2 (09:02→21:35)
[2021-08-19] MEDS: MUPIROCIN 2% OINT 22 GM TUBE NS SCH ×2 (09:02→21:37)
[2021-08-19] MEDS: TERAZOSIN 1 MG CAPSULE GT SCH (09:02)
[2021-08-19] MEDS: FAMOTIDINE 20 MG TABLET GT SCH ×2 (09:02→21:36)
[2021-08-19] MEDS: BACLOFEN 10 MG TABLET GT SCH ×2 (09:02→17:12)
[2021-08-19] MEDS: METOPROLOL TARTRATE 25 MG TABLET GT SCH ×2 (09:02→21:36)
[2021-08-19] MEDS: COD LIVER OIL/ZINC OXIDE OINT 113 GM TUBE TP SCH ×2 (09:03→21:37)
[2021-08-19] MEDS: HEPARIN SODIUM,PORCINE 5,000 UNITS/ML VIAL SQ SCH ×2 (09:03→21:00)
[2021-08-19] MEDS: VANCOMYCIN IV 1,000 MG in IV DEXTROSE 5% 250 ML IV SCH ×2 (09:03→19:00)
[2021-08-19] MEDS: VITAMINS A AND D OINT TP SCH ×2 (09:06→21:38)
[2021-08-19] MEDS: NEOMY/BACITRA/POLYMYXIN B OINT UD PACKET TP SCH ×2 (09:06→21:38)
[2021-08-19] MEDS: HYDROGEN PEROXIDE 3% 118 ML BOTTLE TP SCH ×2 (09:30→20:54)
[2021-08-19 12:00] VITALS: BP 132/70
[2021-08-19] MEDS: INSULIN REGULAR, HUMAN 300 UNIT/3 ML VIAL SQ PRN ×2 (12:21→17:09)
[2021-08-19] MEDS: GLUCERNA 1.2 1000ML LIQUID GT PRN (16:17)
[2021-08-19 18:07] VITALS: BP 137/71
[2021-08-19 20:00] VITALS: BP 132/61
[2021-08-19] MEDS: ATORVASTATIN 20 MG TABLET GT SCH (21:35)
[2021-08-19] MEDS: MINERAL OIL/PETROLAT OPHT OINT 3.5 GM TUBE EACHEYE SCH (21:35)
[2021-08-19] MEDS: ASCORBIC ACID 500 MG TABLET GT SCH (21:37)
[2021-08-19] MEDS: THIAMINE HCL 100 MG TABLET GT SCH (21:37)
--- NOTE | 2021-08-19 23:37 | NUR ---
Afebrile, on Vancomycin and Cefepime IV for Sacral Osteomyelitis, no adverse reactions noted, with ongoing treatment as ordered, turned and repositioned, kept clean and comfortable, on Airborne isolation precaution for PUI covid 19 admission protocol, will continue monitor.
[2021-08-20] VITALS: BP 136/75
[2021-08-20] MEDS: BLOOD SUGAR DIAGNOSTIC 1 EACH STRIP VI SCH ×4 (00:47→17:38)
[2021-08-20] MEDS: IPRATROPIUM BROMIDE 0.5 MG/2.5 ML NEBU NEB SCH ×4 (01:06→19:06)
[2021-08-20] MEDS: LEVALBUTEROL HCL 1.25 MG/0.5 ML NEB NEB SCH ×4 (01:06→19:06)
[2021-08-20] MEDS: INSULIN REGULAR, HUMAN 300 UNIT/3 ML VIAL SQ PRN ×4 (01:09→17:39)
[2021-08-20] MEDS: OMEPRAZOLE 20 MG CAPSULE.DR GT SCH (05:08)
[2021-08-20] MEDS: NUTRISOURCE FIBER 4 GM PACKET GT SCH ×2 (05:08→17:38)
[2021-08-20 06:00] VITALS: BP 126/68
--- NOTE | 2021-08-20 06:14 | NUR ---
Andrew from the lab called and relayed patient's covid test result which was Negative.
[2021-08-20 07:43] LABS: CARBON DIOXIDE 30 mmol/L (21-32); CHLORIDE 96 mmol/L (98-107); CREATININE 0.5 mg/dL (0.6-1.3); GLUCOSE 121 mg/dL (74-106); POTASSIUM 3.9 mmol/L (3.5-5.1); UREA NITROGEN, BLOOD 12 mg/dL (7-18)
[2021-08-20] MEDS: HYDROGEN PEROXIDE 3% 118 ML BOTTLE TP SCH ×2 (07:57→21:29)
[2021-08-20 08:00] VITALS: BP 143/83
[2021-08-20] MEDS: [UNRECOGNIZED DRUG - OTHER] GT SCH ×2 (09:16→20:43)
[2021-08-20] MEDS: ACETAMINOPHEN GT SCH ×2 (09:16→20:43)
[2021-08-20] MEDS: TERAZOSIN 1 MG CAPSULE GT SCH (09:17)
[2021-08-20] MEDS: levETIRAcetam 500 MG/5 ML LIQUID UDC GT SCH ×2 (09:17→20:44)
[2021-08-20] MEDS: METOPROLOL TARTRATE 25 MG TABLET GT SCH ×2 (09:18→20:46)
[2021-08-20] MEDS: BACLOFEN 10 MG TABLET GT SCH ×2 (09:18→17:38)
[2021-08-20] MEDS: PHENOBARBITAL 97.2 MG TABLET GT SCH ×2 (09:18→20:46)
[2021-08-20] MEDS: AMANTADINE HCL 50 MG/5 ML GT SCH ×2 (09:18→20:46)
[2021-08-20] MEDS: FAMOTIDINE 20 MG TABLET GT SCH (09:18)
[2021-08-20] MEDS: NYSTATIN CREAM 30 GM TUBE TP SCH ×7 (09:19→20:48)
[2021-08-20] MEDS: COD LIVER OIL/ZINC OXIDE OINT 113 GM TUBE TP SCH ×2 (09:19→20:47)
[2021-08-20] MEDS: TRIAMCINOLONE ACET 0.1% CREAM 15 GM TUBE TP SCH ×5 (09:19→20:48)
[2021-08-20] MEDS: NORMAL SALINE FLUSH 10 ML DISP.SYRIN IV SCH ×2 (09:19→20:47)
[2021-08-20] MEDS: MUPIROCIN 2% OINT 22 GM TUBE NS SCH ×2 (09:19→20:47)
[2021-08-20] MEDS: VITAMINS A AND D OINT TP SCH ×2 (09:20→20:48)
[2021-08-20] MEDS: NEOMY/BACITRA/POLYMYXIN B OINT UD PACKET TP SCH ×2 (09:20→20:48)
[2021-08-20] MEDS: LORAZEPAM 1 MG TABLET GT PRN ×2 (09:43→16:03)
[2021-08-20] MEDS: HEPARIN SODIUM,PORCINE 5,000 UNITS/ML VIAL SQ SCH ×2 (09:51→21:43)
[2021-08-20] MEDS: HYDROCODONE/APAP 5-325MG TABLET GT PRN ×2 (09:56→16:03)
[2021-08-20 11:12] VITALS: BP 95/64
--- NOTE | 2021-08-20 11:14 | NUR ---
PT. HAD EPISODE OF TACHYPNEA,FACIAL GRIMACING,SKIN PERSPIRATION BUT NO O2 DESATURATION AT ANY TIME AND IMPROVED AFTER MORNING CARE AND ROUTINE MEDICATIONS AND PRN ADMINISTERED (SEE RECORD) ,RT AT BEDSIDE TOO DOING TRACHEAL SUCTIONING NEEDED.GENTLY REPOSITIONED.FREQUENT VISUAL CHECKS DONE FOR SAFETY AND COMFORT.IMPROVED V/S (SEE RECORD).
[2021-08-20] MEDS: CEFEPIME HCL 1 G in IV DEXTROSE 5% 50 ML IV SCH ×2 (13:00→20:47)
--- NOTE | 2021-08-20 15:12 | NUR ---
DR. HENDERSON NOTIFIED RE:SLIGHT TRACHEAL BLEEDING AND SLIGHT HEMATURIA AND HE ASKED NURSE TO F/U WITH PULMONOLOGY BUT HE ORDER TO D/C PEPCID SINCE HE IS ON OMEPRAZOLE.DR. WEBSTER WAS AWARE THAT PT. HAD SLIGHT HEMATURIA AND TRACHEAL BLEEDING AND THAT HE HAD LOVENOX SWITCHED TO HEPARIN YESTERDAY AND HE SAID THAT ITS OK TO CONTINUE ON HEPARIN UNLESS HEMATURIA OR TRACHEAL GETS WORST THEN HOLD IT.
[2021-08-20] MEDS: VANCOMYCIN IV 1,000 MG in IV DEXTROSE 5% 250 ML IV SCH (20:29)
[2021-08-20] MEDS: SODIUM HYPOCHLORITE 0.125% (QUARTER STRENGTH) 473 ML BOTTLE TP SCH (20:42)
[2021-08-20] MEDS: MINERAL OIL/PETROLAT OPHT OINT 3.5 GM TUBE EACHEYE SCH (20:43)
[2021-08-20] MEDS: ATORVASTATIN 20 MG TABLET GT SCH (20:46)
[2021-08-20] MEDS: THIAMINE HCL 100 MG TABLET GT SCH (20:46)
[2021-08-20] MEDS: ASCORBIC ACID 500 MG TABLET GT SCH (20:47)
--- NOTE | 2021-08-20 22:37 | NUR ---
Patient is comfortably sleeping at this time, no signs of respiratory distress noted. Still on Vancomycin and Cefepime IV for Osteomyelitis, no adverse reactions noted. with ongoing treatment to sacral wound as ordered, turned and repositioned. On airborne isolation precaution for PUI for Covid 19 per admission protocol. Will continue monitor. Addendum: 08/20/21 at 2246 by ISRRAEL ESTEVES RN No bleeding from trach and no hematuria was noted at this time, suctioned as needed and good diane care rendered.
[2021-08-21] MEDS: IPRATROPIUM BROMIDE 0.5 MG/2.5 ML NEBU NEB SCH ×4 (01:09→19:38)
[2021-08-21] MEDS: LEVALBUTEROL HCL 1.25 MG/0.5 ML NEB NEB SCH ×4 (01:09→19:38)
[2021-08-21] MEDS: INSULIN REGULAR, HUMAN 300 UNIT/3 ML VIAL SQ PRN ×3 (01:33→17:37)
[2021-08-21] MEDS: CEFEPIME HCL 1 G in IV DEXTROSE 5% 50 ML IV SCH ×3 (05:15→21:39)
[2021-08-21] MEDS: NUTRISOURCE FIBER 4 GM PACKET GT SCH ×2 (05:15→17:36)
[2021-08-21] MEDS: OMEPRAZOLE 20 MG CAPSULE.DR GT SCH (05:15)
[2021-08-21] MEDS: BLOOD SUGAR DIAGNOSTIC 1 EACH STRIP VI SCH ×4 (05:18→17:37)
[2021-08-21] MEDS: [UNRECOGNIZED DRUG - OTHER] GT SCH ×2 (08:10→21:01)
[2021-08-21] MEDS: ACETAMINOPHEN GT SCH ×2 (08:10→21:01)
[2021-08-21] MEDS: MUPIROCIN 2% OINT 22 GM TUBE NS SCH ×2 (08:11→21:02)
[2021-08-21] MEDS: METOPROLOL TARTRATE 25 MG TABLET GT SCH ×2 (08:11→21:01)
[2021-08-21] MEDS: BACLOFEN 10 MG TABLET GT SCH ×2 (08:11→17:36)
[2021-08-21] MEDS: COD LIVER OIL/ZINC OXIDE OINT 113 GM TUBE TP SCH ×2 (08:11→21:02)
[2021-08-21] MEDS: TERAZOSIN 1 MG CAPSULE GT SCH (08:11)
[2021-08-21] MEDS: PHENOBARBITAL 97.2 MG TABLET GT SCH ×2 (08:11→21:02)
[2021-08-21] MEDS: AMANTADINE HCL 50 MG/5 ML GT SCH ×2 (08:11→21:02)
[2021-08-21] MEDS: levETIRAcetam 500 MG/5 ML LIQUID UDC GT SCH ×2 (08:11→21:01)
[2021-08-21] MEDS: SODIUM HYPOCHLORITE 0.125% (QUARTER STRENGTH) 473 ML BOTTLE TP SCH ×2 (08:11→21:00)
[2021-08-21] MEDS: TRIAMCINOLONE ACET 0.1% CREAM 15 GM TUBE TP SCH ×8 (08:12→21:03)
[2021-08-21] MEDS: VITAMINS A AND D OINT TP SCH ×2 (08:13→21:03)
[2021-08-21] MEDS: NYSTATIN CREAM 30 GM TUBE TP SCH ×10 (08:13→21:03)
[2021-08-21] MEDS: NEOMY/BACITRA/POLYMYXIN B OINT UD PACKET TP SCH ×2 (08:13→21:03)
[2021-08-21] MEDS: HEPARIN SODIUM,PORCINE 5,000 UNITS/ML VIAL SQ SCH ×2 (08:22→21:00)
[2021-08-21] MEDS: VANCOMYCIN IV 1,000 MG in IV DEXTROSE 5% 250 ML IV SCH ×2 (08:57→20:31)
[2021-08-21] MEDS: NORMAL SALINE FLUSH 10 ML DISP.SYRIN IV SCH ×2 (09:00→21:39)
[2021-08-21] MEDS: HYDROGEN PEROXIDE 3% 118 ML BOTTLE TP SCH ×2 (09:00→20:53)
[2021-08-21 10:06] VITALS: BP 130/80
--- NOTE | 2021-08-21 10:07 | NUR ---
NO HEMATURIA ,NO TRACHEAL BLEEDING,PT. REMAINS CALMED STABLE V/S (SEE RECORD) AND P/A 0/10 ,GENTLY HANDLED ,FREQUENT VISUAL CHECKS DONE FOR SAFETY AND COMFORT.
--- NOTE | 2021-08-21 15:56 | NUR ---
NEW ORDER WAS CARRIED OUT FROM DR. HENDERSON FOR VANCOMYCIN RECOMMENDED BY PHARMACIST.
[2021-08-21] MEDS: MINERAL OIL/PETROLAT OPHT OINT 3.5 GM TUBE EACHEYE SCH (21:01)
[2021-08-21] MEDS: ATORVASTATIN 20 MG TABLET GT SCH (21:01)
[2021-08-21] MEDS: ASCORBIC ACID 500 MG TABLET GT SCH (21:02)
[2021-08-21] MEDS: THIAMINE HCL 100 MG TABLET GT SCH (21:02)
[2021-08-22] VITALS: BP 146/78
[2021-08-22] MEDS: INSULIN REGULAR, HUMAN 300 UNIT/3 ML VIAL SQ PRN ×2 (00:30→12:59)
[2021-08-22] MEDS: LEVALBUTEROL HCL 1.25 MG/0.5 ML NEB NEB SCH ×4 (01:02→19:10)
[2021-08-22] MEDS: IPRATROPIUM BROMIDE 0.5 MG/2.5 ML NEBU NEB SCH ×4 (01:02→19:10)
[2021-08-22 05:00] VITALS: BP 155/83
[2021-08-22] MEDS: CEFEPIME HCL 1 G in IV DEXTROSE 5% 50 ML IV SCH ×3 (05:10→20:56)
[2021-08-22] MEDS: OMEPRAZOLE 20 MG CAPSULE.DR GT SCH (05:28)
[2021-08-22] MEDS: BLOOD SUGAR DIAGNOSTIC 1 EACH STRIP VI SCH ×5 (05:28→23:31)
[2021-08-22] MEDS: NUTRISOURCE FIBER 4 GM PACKET GT SCH ×2 (05:28→17:03)
[2021-08-22 07:51] LABS: CARBON DIOXIDE 32 mmol/L (21-32); CHLORIDE 98 mmol/L (98-107); CREATININE 0.6 mg/dL (0.6-1.3); GLUCOSE 126 mg/dL (74-106); POTASSIUM 4.1 mmol/L (3.5-5.1); UREA NITROGEN, BLOOD 12 mg/dL (7-18)
[2021-08-22] MEDS: [UNRECOGNIZED DRUG - OTHER] GT SCH ×2 (08:29→21:00)
[2021-08-22] MEDS: ACETAMINOPHEN GT SCH ×2 (08:29→21:00)
[2021-08-22] MEDS: levETIRAcetam 500 MG/5 ML LIQUID UDC GT SCH ×2 (08:30→21:00)
[2021-08-22] MEDS: BACLOFEN 10 MG TABLET GT SCH ×2 (08:33→17:03)
[2021-08-22] MEDS: AMANTADINE HCL 50 MG/5 ML GT SCH ×2 (08:34→21:02)
[2021-08-22] MEDS: PHENOBARBITAL 97.2 MG TABLET GT SCH ×2 (08:34→21:02)
[2021-08-22] MEDS: MUPIROCIN 2% OINT 22 GM TUBE NS SCH ×2 (08:35→21:02)
[2021-08-22] MEDS: TRIAMCINOLONE ACET 0.1% CREAM 15 GM TUBE TP SCH ×8 (08:36→21:02)
[2021-08-22] MEDS: COD LIVER OIL/ZINC OXIDE OINT 113 GM TUBE TP SCH ×2 (08:36→21:02)
[2021-08-22] MEDS: SODIUM HYPOCHLORITE 0.125% (QUARTER STRENGTH) 473 ML BOTTLE TP SCH ×2 (08:36→21:00)
[2021-08-22] MEDS: HEPARIN SODIUM,PORCINE 5,000 UNITS/ML VIAL SQ SCH ×2 (08:36→21:00)
[2021-08-22] MEDS: NYSTATIN CREAM 30 GM TUBE TP SCH ×10 (08:37→21:03)
[2021-08-22] MEDS: NEOMY/BACITRA/POLYMYXIN B OINT UD PACKET TP SCH ×2 (08:37→21:03)
[2021-08-22] MEDS: VITAMINS A AND D OINT TP SCH ×2 (08:37→21:03)
[2021-08-22] MEDS: LORAZEPAM 1 MG TABLET GT PRN ×2 (08:39→13:07)
[2021-08-22] MEDS: TERAZOSIN 1 MG CAPSULE GT SCH (08:53)
[2021-08-22] MEDS: METOPROLOL TARTRATE 25 MG TABLET GT SCH ×2 (08:53→21:02)
[2021-08-22] MEDS: NORMAL SALINE FLUSH 10 ML DISP.SYRIN IV SCH ×2 (09:00→21:00)
[2021-08-22] MEDS: HYDROGEN PEROXIDE 3% 118 ML BOTTLE TP SCH ×2 (09:15→21:00)
[2021-08-22] MEDS: HYDROCODONE/APAP 5-325MG TABLET GT PRN ×2 (12:00→18:00)
--- NOTE | 2021-08-22 12:00 | NUR ---
SEEN BY FABY Montoya AND WITH NNO.
[2021-08-22] MEDS: GLUCERNA 1.2 1000ML LIQUID GT PRN (12:59)
--- NOTE | 2021-08-22 13:40 | NUR ---
This SW notified patient's daughter Janis by email that the next IDT meeting for the patient is scheduled for 08/30/2021 at 11am. This SW asked Janis to let this SW know if she would like to participate in the meeting by speaker phone.
[2021-08-22] MEDS ORDERED: VANCOMYCIN IV 1,000 MG in IV DEXTROSE 5% 250 ML IV SCH (18:00)
[2021-08-22] MEDS: VANCOMYCIN IV 1,000 MG in IV DEXTROSE 5% 250 ML IV SCH (18:03)
[2021-08-22 18:06] VITALS: BP 150/87
[2021-08-22] MEDS: ATORVASTATIN 20 MG TABLET GT SCH (21:00)
[2021-08-22] MEDS: MINERAL OIL/PETROLAT OPHT OINT 3.5 GM TUBE EACHEYE SCH (21:00)
[2021-08-22] MEDS: THIAMINE HCL 100 MG TABLET GT SCH (21:02)
[2021-08-22] MEDS: ASCORBIC ACID 500 MG TABLET GT SCH (21:02)
[2021-08-23 00:30] VITALS: BP 139/80
[2021-08-23] MEDS: IPRATROPIUM BROMIDE 0.5 MG/2.5 ML NEBU NEB SCH ×4 (01:30→20:52)
[2021-08-23] MEDS: LEVALBUTEROL HCL 1.25 MG/0.5 ML NEB NEB SCH ×4 (01:30→20:52)
[2021-08-23] MEDS: INSULIN REGULAR, HUMAN 300 UNIT/3 ML VIAL SQ PRN ×2 (01:35→12:56)
[2021-08-23] MEDS: NUTRISOURCE FIBER 4 GM PACKET GT SCH ×2 (05:10→17:34)
[2021-08-23] MEDS: OMEPRAZOLE 20 MG CAPSULE.DR GT SCH (05:10)
[2021-08-23] MEDS: BLOOD SUGAR DIAGNOSTIC 1 EACH STRIP VI SCH ×3 (05:10→17:42)
[2021-08-23] MEDS: LORAZEPAM 1 MG TABLET GT PRN ×2 (05:11→16:12)
[2021-08-23] MEDS: GLUCERNA 1.2 1000ML LIQUID GT PRN (05:11)
[2021-08-23] MEDS: CEFEPIME HCL 1 G in IV DEXTROSE 5% 50 ML IV SCH ×3 (05:21→21:29)
--- NOTE | 2021-08-23 06:50 | NUR ---
Patient remain afebrile, on Vancomycin and Cefepime IV for Sacral Osteomyelitis, no adverse reactions noted, with ongoing treatment as ordered, turned and repositioned, kept clean and comfortable, on Airborne isolation precaution for PUI covid 19 admission protocol, will continue monitor.
[2021-08-23] MEDS: ACETAMINOPHEN GT SCH ×2 (08:17→20:30)
[2021-08-23] MEDS: [UNRECOGNIZED DRUG - OTHER] GT SCH ×2 (08:17→20:30)
[2021-08-23] MEDS: HYDROCODONE/APAP 5-325MG TABLET GT PRN (08:18)
[2021-08-23] MEDS: PHENOBARBITAL 97.2 MG TABLET GT SCH ×2 (08:24→21:00)
--- NOTE | 2021-08-23 08:39 | NUR ---
NORCO GIVEN AT THIS TIME D/T 01/29 SACRAL WOUND PAIN.TYLENOL NOT GIVEN.
[2021-08-23] MEDS: NYSTATIN CREAM 30 GM TUBE TP SCH ×10 (09:00→21:00)
[2021-08-23] MEDS: COD LIVER OIL/ZINC OXIDE OINT 113 GM TUBE TP SCH ×2 (09:00→21:00)
[2021-08-23] MEDS: NEOMY/BACITRA/POLYMYXIN B OINT UD PACKET TP SCH ×2 (09:00→21:00)
[2021-08-23] MEDS: VITAMINS A AND D OINT TP SCH ×2 (09:00→21:00)
[2021-08-23] MEDS: NORMAL SALINE FLUSH 10 ML DISP.SYRIN IV SCH ×2 (09:00→21:29)
[2021-08-23] MEDS: SODIUM HYPOCHLORITE 0.125% (QUARTER STRENGTH) 473 ML BOTTLE TP SCH ×2 (09:00→21:00)
[2021-08-23] MEDS: TRIAMCINOLONE ACET 0.1% CREAM 15 GM TUBE TP SCH ×8 (09:00→21:00)
[2021-08-23] MEDS: HYDROGEN PEROXIDE 3% 118 ML BOTTLE TP SCH ×2 (09:13→22:19)
[2021-08-23] MEDS: TERAZOSIN 1 MG CAPSULE GT SCH (09:50)
[2021-08-23] MEDS: levETIRAcetam 500 MG/5 ML LIQUID UDC GT SCH ×2 (09:50→21:00)
[2021-08-23] MEDS: BACLOFEN 10 MG TABLET GT SCH ×2 (09:51→17:33)
[2021-08-23] MEDS: AMANTADINE HCL 50 MG/5 ML GT SCH ×2 (09:55→21:00)
[2021-08-23] MEDS: METOPROLOL TARTRATE 25 MG TABLET GT SCH ×2 (09:55→21:00)
[2021-08-23] MEDS: MUPIROCIN 2% OINT 22 GM TUBE NS SCH ×2 (09:56→21:00)
[2021-08-23] MEDS: HEPARIN SODIUM,PORCINE 5,000 UNITS/ML VIAL SQ SCH ×2 (09:58→21:00)
[2021-08-23] MEDS: VANCOMYCIN IV 1,000 MG in IV DEXTROSE 5% 250 ML IV SCH (10:35)
--- NOTE | 2021-08-23 11:00 | NUR ---
Seen and examined By Cari Price,with no new orders .
[2021-08-23 12:15] VITALS: BP 139/87
--- NOTE | 2021-08-23 16:02 | NUR ---
Continue on Ivatb for sacral osteomilitis,Cefepine and vancomycin Ivatb,no adverse reaction noted.midline on the R upper arm intact.
--- NOTE | 2021-08-23 16:18 | NUR ---
MEDICATED ORDERED WITH ATIVAN FOR ESCALATING MUSCLE SPASMS AND EFFECTIVE.
[2021-08-23 18:24] VITALS: BP 148/86
[2021-08-23] MEDS: MINERAL OIL/PETROLAT OPHT OINT 3.5 GM TUBE EACHEYE SCH (21:00)
[2021-08-23] MEDS: ATORVASTATIN 20 MG TABLET GT SCH (21:00)
[2021-08-23] MEDS: THIAMINE HCL 100 MG TABLET GT SCH (21:00)
[2021-08-23] MEDS: ASCORBIC ACID 500 MG TABLET GT SCH (21:00)
--- NOTE | 2021-08-23 23:50 | NUR ---
Still on Vancomycin and Cefepime IV for Osteomyelitis, no adverse reactions noted. Sleeping comfortably, no signs of any respiratory distress noted. With ongoing treatment to sacral wound as ordered, turned and repositioned. On airborne isolation precaution for PUI for Covid- 19 per admission protocol, Will continue monitor.
[2021-08-24] MEDS: BLOOD SUGAR DIAGNOSTIC 1 EACH STRIP VI SCH ×5 (00:59→23:15)
[2021-08-24] MEDS: INSULIN REGULAR, HUMAN 300 UNIT/3 ML VIAL SQ PRN ×5 (01:00→23:16)
[2021-08-24] MEDS: GLUCERNA 1.2 1000ML LIQUID GT PRN (01:02)
[2021-08-24] MEDS: IPRATROPIUM BROMIDE 0.5 MG/2.5 ML NEBU NEB SCH ×4 (01:09→19:55)
[2021-08-24] MEDS: LEVALBUTEROL HCL 1.25 MG/0.5 ML NEB NEB SCH ×4 (01:09→19:55)
[2021-08-24 01:22] VITALS: BP 143/84
[2021-08-24] MEDS: VANCOMYCIN IV 1,000 MG in IV DEXTROSE 5% 250 ML IV SCH ×2 (02:10→18:00)
[2021-08-24] MEDS: CEFEPIME HCL 1 G in IV DEXTROSE 5% 50 ML IV SCH ×3 (05:28→21:00)
[2021-08-24] MEDS: NUTRISOURCE FIBER 4 GM PACKET GT SCH ×2 (06:16→18:01)
[2021-08-24] MEDS: OMEPRAZOLE 20 MG CAPSULE.DR GT SCH (06:16)
[2021-08-24 06:40] VITALS: BP 146/85
[2021-08-24 07:59] VITALS: BP 130/90
[2021-08-24] MEDS: ACETAMINOPHEN GT SCH ×2 (08:18→20:56)
[2021-08-24] MEDS: [UNRECOGNIZED DRUG - OTHER] GT SCH ×2 (08:18→20:56)
[2021-08-24] MEDS: AMANTADINE HCL 50 MG/5 ML GT SCH ×2 (08:19→21:04)
[2021-08-24] MEDS: TERAZOSIN 1 MG CAPSULE GT SCH (08:19)
[2021-08-24] MEDS: BACLOFEN 10 MG TABLET GT SCH ×2 (08:19→17:00)
[2021-08-24] MEDS: levETIRAcetam 500 MG/5 ML LIQUID UDC GT SCH ×2 (08:19→21:00)
[2021-08-24] MEDS: MUPIROCIN 2% OINT 22 GM TUBE NS SCH (08:19)
[2021-08-24] MEDS: PHENOBARBITAL 97.2 MG TABLET GT SCH ×2 (08:19→21:05)
[2021-08-24] MEDS: METOPROLOL TARTRATE 25 MG TABLET GT SCH ×2 (08:19→21:02)
[2021-08-24] MEDS: HEPARIN SODIUM,PORCINE 5,000 UNITS/ML VIAL SQ SCH ×2 (08:20→21:05)
[2021-08-24] MEDS: SODIUM HYPOCHLORITE 0.125% (QUARTER STRENGTH) 473 ML BOTTLE TP SCH ×2 (08:21→21:05)
[2021-08-24] MEDS: COD LIVER OIL/ZINC OXIDE OINT 113 GM TUBE TP SCH ×2 (08:21→21:05)
[2021-08-24] MEDS: VITAMINS A AND D OINT TP SCH ×2 (08:22→21:06)
[2021-08-24] MEDS: TRIAMCINOLONE ACET 0.1% CREAM 15 GM TUBE TP SCH ×8 (08:22→21:06)
[2021-08-24] MEDS: NEOMY/BACITRA/POLYMYXIN B OINT UD PACKET TP SCH ×2 (08:22→21:06)
[2021-08-24] MEDS: NYSTATIN CREAM 30 GM TUBE TP SCH ×10 (08:22→21:06)
[2021-08-24] MEDS: HYDROGEN PEROXIDE 3% 118 ML BOTTLE TP SCH ×2 (08:47→21:13)
[2021-08-24] MEDS: NORMAL SALINE FLUSH 10 ML DISP.SYRIN IV SCH ×2 (09:49→21:04)
[2021-08-24 12:00] VITALS: BP 139/81
[2021-08-24 18:00] VITALS: BP 147/79
--- NOTE | 2021-08-24 18:15 | NUR ---
vancomycin trough result 14.2 ,continue with the same vancomycin orders.Midline R upper arm intact,flushes as ordered.
[2021-08-24] MEDS: MINERAL OIL/PETROLAT OPHT OINT 3.5 GM TUBE EACHEYE SCH (20:57)
[2021-08-24] MEDS: THIAMINE HCL 100 MG TABLET GT SCH (21:02)
[2021-08-24] MEDS: ATORVASTATIN 20 MG TABLET GT SCH (21:02)
[2021-08-24] MEDS: ASCORBIC ACID 500 MG TABLET GT SCH (21:03)
--- NOTE | 2021-08-24 23:29 | NUR ---
Still on Vancomycin and Cefepime IV for Osteomyelitis, no adverse reactions noted. No signs of any respiratory distress noted. With ongoing treatment to sacral wound as ordered, turned and repositioned. On airborne isolation precaution for PUI for Covid- 19 per admission protocol, Will continue monitor.
[2021-08-25] MEDS: LEVALBUTEROL HCL 1.25 MG/0.5 ML NEB NEB SCH ×4 (01:30→19:41)
[2021-08-25] MEDS: IPRATROPIUM BROMIDE 0.5 MG/2.5 ML NEBU NEB SCH ×4 (01:30→19:41)
[2021-08-25] MEDS: CEFEPIME HCL 1 G in IV DEXTROSE 5% 50 ML IV SCH ×3 (05:32→21:19)
[2021-08-25] MEDS: BLOOD SUGAR DIAGNOSTIC 1 EACH STRIP VI SCH ×3 (05:41→17:11)
[2021-08-25] MEDS: NUTRISOURCE FIBER 4 GM PACKET GT SCH ×2 (05:41→17:11)
[2021-08-25] MEDS: OMEPRAZOLE 20 MG CAPSULE.DR GT SCH (05:41)
[2021-08-25] MEDS: INSULIN REGULAR, HUMAN 300 UNIT/3 ML VIAL SQ PRN ×3 (05:42→17:12)
[2021-08-25 07:57] VITALS: BP 147/79
[2021-08-25 08:00] VITALS: BP 168/102
[2021-08-25] MEDS: HYDROGEN PEROXIDE 3% 118 ML BOTTLE TP SCH ×2 (08:03→21:02)
[2021-08-25] MEDS: hydrALAZINE HCL 25 MG TABLET GT PRN (08:07)
[2021-08-25] MEDS: [UNRECOGNIZED DRUG - OTHER] GT SCH ×2 (08:08→21:09)
[2021-08-25] MEDS: ACETAMINOPHEN GT SCH ×2 (08:08→21:09)
[2021-08-25] MEDS: levETIRAcetam 500 MG/5 ML LIQUID UDC GT SCH ×2 (08:08→21:09)
[2021-08-25] MEDS: TERAZOSIN 1 MG CAPSULE GT SCH (08:08)
[2021-08-25] MEDS: METOPROLOL TARTRATE 25 MG TABLET GT SCH ×2 (08:08→21:10)
[2021-08-25] MEDS: BACLOFEN 10 MG TABLET GT SCH ×2 (08:08→17:11)
[2021-08-25] MEDS: PHENOBARBITAL 97.2 MG TABLET GT SCH ×2 (08:09→21:11)
[2021-08-25] MEDS: AMANTADINE HCL 50 MG/5 ML GT SCH ×2 (08:09→21:11)
[2021-08-25] MEDS: HEPARIN SODIUM,PORCINE 5,000 UNITS/ML VIAL SQ SCH ×2 (08:15→21:00)
[2021-08-25 08:35] VITALS: BP 115/68
[2021-08-25] MEDS: NORMAL SALINE FLUSH 10 ML DISP.SYRIN IV SCH ×2 (09:00→21:19)
[2021-08-25] MEDS: NEOMY/BACITRA/POLYMYXIN B OINT UD PACKET TP SCH ×2 (09:00→21:14)
[2021-08-25] MEDS: VITAMINS A AND D OINT TP SCH ×2 (09:00→21:14)
[2021-08-25] MEDS: TRIAMCINOLONE ACET 0.1% CREAM 15 GM TUBE TP SCH ×8 (09:00→21:14)
[2021-08-25] MEDS: COD LIVER OIL/ZINC OXIDE OINT 113 GM TUBE TP SCH ×2 (09:00→21:13)
[2021-08-25] MEDS: SODIUM HYPOCHLORITE 0.125% (QUARTER STRENGTH) 473 ML BOTTLE TP SCH ×2 (09:00→21:13)
[2021-08-25] MEDS: NYSTATIN CREAM 30 GM TUBE TP SCH ×10 (09:00→21:14)
[2021-08-25] MEDS: VANCOMYCIN IV 1,000 MG in IV DEXTROSE 5% 250 ML IV SCH (10:14)
[2021-08-25 11:42] VITALS: BP 141/82
[2021-08-25] MEDS ORDERED: ARGININE/GLUTAMINE/CALCIUM BMB 1 EACH POWD.PACK GT SCH (17:00)
[2021-08-25] MEDS: ARGININE/GLUTAMINE/CALCIUM BMB 1 EACH POWD.PACK GT SCH (17:10)
[2021-08-25 18:15] VITALS: BP 136/69
--- NOTE | 2021-08-25 18:47 | NUR ---
CONTINUE ON VANCOMYCIN AND CEFEPIME IV FOR OSTEOMYELITIS, NO ADVERSE REACTION NOTED. RIGHT UPPER ARM MIDLINE INTACT WITH NO SIGNS OF INFECTION NOTED. NO RESPIRATORY DISTRESS NOTED. WILL CONTINUE TO MONITOR.
[2021-08-25] MEDS: MINERAL OIL/PETROLAT OPHT OINT 3.5 GM TUBE EACHEYE SCH (21:09)
[2021-08-25] MEDS: ATORVASTATIN 20 MG TABLET GT SCH (21:10)
[2021-08-25] MEDS: ASCORBIC ACID 500 MG TABLET GT SCH (21:12)
[2021-08-25] MEDS: THIAMINE HCL 100 MG TABLET GT SCH (21:12)
--- NOTE | 2021-08-25 22:47 | NUR ---
Afebrile, patient is currently on Vancomycin and Cefepime IV for sacral osteomyelitis, no adverse reactions noted. ELIZABETH Midline is intact and no signs of any complications, with ongoing treatment to sacral wound, no oozing or bleeding noted from wound. On airborne isolation precaution for PUI covid 19 per admission protocol, turned and repositioned, kept patient clean and comfortable.
[2021-08-26] MEDS: INSULIN REGULAR, HUMAN 300 UNIT/3 ML VIAL SQ PRN ×4 (01:02→17:30)
[2021-08-26 01:14] VITALS: BP 138/84
[2021-08-26] MEDS: LEVALBUTEROL HCL 1.25 MG/0.5 ML NEB NEB SCH ×4 (01:20→19:11)
[2021-08-26] MEDS: IPRATROPIUM BROMIDE 0.5 MG/2.5 ML NEBU NEB SCH ×4 (01:21→19:11)
[2021-08-26] MEDS: VANCOMYCIN IV 1,000 MG in IV DEXTROSE 5% 250 ML IV SCH ×2 (02:17→18:14)
[2021-08-26] MEDS: LORAZEPAM 1 MG TABLET GT PRN ×2 (04:00→21:25)
[2021-08-26] MEDS: HYDROCODONE/APAP 5-325MG TABLET GT PRN (04:33)
[2021-08-26] MEDS: BLOOD SUGAR DIAGNOSTIC 1 EACH STRIP VI SCH ×4 (05:11→17:29)
[2021-08-26] MEDS: OMEPRAZOLE 20 MG CAPSULE.DR GT SCH (05:15)
[2021-08-26] MEDS: NUTRISOURCE FIBER 4 GM PACKET GT SCH ×2 (05:15→17:29)
[2021-08-26 05:22] VITALS: BP 142/78
[2021-08-26] MEDS: CEFEPIME HCL 1 G in IV DEXTROSE 5% 50 ML IV SCH ×3 (05:48→21:12)
[2021-08-26] MEDS: SODIUM HYPOCHLORITE 0.125% (QUARTER STRENGTH) 473 ML BOTTLE TP SCH ×2 (09:00→21:35)
[2021-08-26] MEDS: VITAMINS A AND D OINT TP SCH ×2 (09:00→21:37)
[2021-08-26] MEDS: NEOMY/BACITRA/POLYMYXIN B OINT UD PACKET TP SCH ×2 (09:00→21:37)
[2021-08-26] MEDS: TRIAMCINOLONE ACET 0.1% CREAM 15 GM TUBE TP SCH ×8 (09:00→21:36)
[2021-08-26] MEDS: COD LIVER OIL/ZINC OXIDE OINT 113 GM TUBE TP SCH ×2 (09:00→21:36)
[2021-08-26] MEDS: NORMAL SALINE FLUSH 10 ML DISP.SYRIN IV SCH ×2 (09:00→21:00)
[2021-08-26] MEDS: NYSTATIN CREAM 30 GM TUBE TP SCH ×10 (09:00→21:37)
[2021-08-26] MEDS: [UNRECOGNIZED DRUG - OTHER] GT SCH ×2 (09:02→21:21)
[2021-08-26] MEDS: ACETAMINOPHEN GT SCH ×2 (09:02→21:21)
[2021-08-26] MEDS: levETIRAcetam 500 MG/5 ML LIQUID UDC GT SCH ×2 (09:05→21:21)
[2021-08-26] MEDS: ARGININE/GLUTAMINE/CALCIUM BMB 1 EACH POWD.PACK GT SCH ×2 (09:05→17:29)
[2021-08-26] MEDS: TERAZOSIN 1 MG CAPSULE GT SCH (09:05)
[2021-08-26] MEDS: BACLOFEN 10 MG TABLET GT SCH ×2 (09:06→17:28)
[2021-08-26] MEDS: METOPROLOL TARTRATE 25 MG TABLET GT SCH ×2 (09:07→21:24)
[2021-08-26] MEDS: AMANTADINE HCL 50 MG/5 ML GT SCH ×2 (09:07→21:25)
[2021-08-26] MEDS: PHENOBARBITAL 97.2 MG TABLET GT SCH ×2 (09:07→21:24)
[2021-08-26] MEDS: HEPARIN SODIUM,PORCINE 5,000 UNITS/ML VIAL SQ SCH ×2 (09:08→21:35)
[2021-08-26] MEDS: HYDROGEN PEROXIDE 3% 118 ML BOTTLE TP SCH ×2 (09:24→19:11)
[2021-08-26 12:00] VITALS: BP 139/87
[2021-08-26] MEDS: GLUCERNA 1.2 1000ML LIQUID GT PRN (17:31)
[2021-08-26 18:51] VITALS: BP 148/82
[2021-08-26] MEDS: MINERAL OIL/PETROLAT OPHT OINT 3.5 GM TUBE EACHEYE SCH (21:21)
[2021-08-26] MEDS: ATORVASTATIN 20 MG TABLET GT SCH (21:22)
[2021-08-26] MEDS: ASCORBIC ACID 500 MG TABLET GT SCH (21:25)
[2021-08-26] MEDS: THIAMINE HCL 100 MG TABLET GT SCH (21:25)
[2021-08-27] MEDS: IPRATROPIUM BROMIDE 0.5 MG/2.5 ML NEBU NEB SCH ×4 (00:40→19:05)
[2021-08-27] MEDS: LEVALBUTEROL HCL 1.25 MG/0.5 ML NEB NEB SCH ×4 (00:40→19:05)
[2021-08-27] MEDS: INSULIN REGULAR, HUMAN 300 UNIT/3 ML VIAL SQ PRN ×4 (01:23→17:43)
[2021-08-27 01:31] VITALS: BP 138/85
[2021-08-27] MEDS: CEFEPIME HCL 1 G in IV DEXTROSE 5% 50 ML IV SCH ×3 (04:59→21:04)
[2021-08-27] MEDS: OMEPRAZOLE 20 MG CAPSULE.DR GT SCH (05:04)
[2021-08-27] MEDS: NUTRISOURCE FIBER 4 GM PACKET GT SCH ×2 (05:04→17:42)
[2021-08-27] MEDS: BLOOD SUGAR DIAGNOSTIC 1 EACH STRIP VI SCH ×4 (05:05→17:42)
[2021-08-27 07:56] VITALS: BP 130/86
[2021-08-27] MEDS: ACETAMINOPHEN GT SCH ×2 (09:00→20:53)
[2021-08-27] MEDS: [UNRECOGNIZED DRUG - OTHER] GT SCH ×2 (09:00→20:53)
[2021-08-27] MEDS: NORMAL SALINE FLUSH 10 ML DISP.SYRIN IV SCH ×2 (09:00→21:04)
[2021-08-27] MEDS: TERAZOSIN 1 MG CAPSULE GT SCH (09:00)
[2021-08-27] MEDS: BACLOFEN 10 MG TABLET GT SCH ×2 (09:01→17:42)
[2021-08-27] MEDS: ARGININE/GLUTAMINE/CALCIUM BMB 1 EACH POWD.PACK GT SCH ×2 (09:01→17:42)
[2021-08-27] MEDS: levETIRAcetam 500 MG/5 ML LIQUID UDC GT SCH ×2 (09:01→20:53)
[2021-08-27] MEDS: METOPROLOL TARTRATE 25 MG TABLET GT SCH ×2 (09:02→20:54)
[2021-08-27] MEDS: PHENOBARBITAL 97.2 MG TABLET GT SCH ×2 (09:05→20:54)
[2021-08-27] MEDS: AMANTADINE HCL 50 MG/5 ML GT SCH ×2 (09:05→20:54)
[2021-08-27] MEDS: COD LIVER OIL/ZINC OXIDE OINT 113 GM TUBE TP SCH ×2 (09:06→20:54)
[2021-08-27] MEDS: SODIUM HYPOCHLORITE 0.125% (QUARTER STRENGTH) 473 ML BOTTLE TP SCH ×2 (09:06→20:54)
[2021-08-27] MEDS: TRIAMCINOLONE ACET 0.1% CREAM 15 GM TUBE TP SCH ×8 (09:06→20:54)
[2021-08-27] MEDS: HEPARIN SODIUM,PORCINE 5,000 UNITS/ML VIAL SQ SCH ×2 (09:06→21:11)
[2021-08-27] MEDS: VITAMINS A AND D OINT TP SCH ×2 (09:07→20:55)
[2021-08-27] MEDS: NYSTATIN CREAM 30 GM TUBE TP SCH ×10 (09:07→20:55)
[2021-08-27] MEDS: NEOMY/BACITRA/POLYMYXIN B OINT UD PACKET TP SCH ×2 (09:07→20:55)
[2021-08-27] MEDS: HYDROGEN PEROXIDE 3% 118 ML BOTTLE TP SCH ×2 (09:18→20:37)
[2021-08-27 09:22] LABS: CARBON DIOXIDE 29 mmol/L (21-32); CHLORIDE 96 mmol/L (98-107); CREATININE 0.6 mg/dL (0.6-1.3); GLUCOSE 156 mg/dL (74-106); POTASSIUM 4.3 mmol/L (3.5-5.1); UREA NITROGEN, BLOOD 17 mg/dL (7-18); VANCOMYCIN,TROUGH 13.4 ug/mL (12.0-20.0)
[2021-08-27] MEDS: VANCOMYCIN IV 1,000 MG in IV DEXTROSE 5% 250 ML IV SCH (11:37)
[2021-08-27 12:00] VITALS: BP 140/76
[2021-08-27] MEDS: GLUCERNA 1.2 1000ML LIQUID GT PRN (12:52)
[2021-08-27 18:32] VITALS: BP 141/79
--- NOTE | 2021-08-27 19:05 | NUR ---
Continue on Ivatb,Vancomycin and cefepine 1 gm,no adverse reaction noted,midline on the R upper arm intact.
[2021-08-27] MEDS: ATORVASTATIN 20 MG TABLET GT SCH (20:53)
[2021-08-27] MEDS: MINERAL OIL/PETROLAT OPHT OINT 3.5 GM TUBE EACHEYE SCH (20:53)
[2021-08-27] MEDS: ASCORBIC ACID 500 MG TABLET GT SCH (20:54)
[2021-08-27] MEDS: THIAMINE HCL 100 MG TABLET GT SCH (20:54)
[2021-08-28] MEDS: BLOOD SUGAR DIAGNOSTIC 1 EACH STRIP VI SCH ×5 (00:26→23:13)
[2021-08-28] MEDS: INSULIN REGULAR, HUMAN 300 UNIT/3 ML VIAL SQ PRN ×5 (00:28→23:24)
[2021-08-28 00:48] VITALS: BP 126/70
[2021-08-28] MEDS: IPRATROPIUM BROMIDE 0.5 MG/2.5 ML NEBU NEB SCH ×4 (00:57→19:30)
[2021-08-28] MEDS: LEVALBUTEROL HCL 1.25 MG/0.5 ML NEB NEB SCH ×4 (00:57→19:30)
[2021-08-28] MEDS: VANCOMYCIN IV 1,000 MG in IV DEXTROSE 5% 250 ML IV SCH ×2 (01:08→15:00)
[2021-08-28] MEDS: GLUCERNA 1.2 1000ML LIQUID GT PRN ×2 (03:20→23:09)
[2021-08-28] MEDS: CEFEPIME HCL 1 G in IV DEXTROSE 5% 50 ML IV SCH ×3 (05:14→21:03)
[2021-08-28] MEDS: NUTRISOURCE FIBER 4 GM PACKET GT SCH ×2 (05:23→17:18)
[2021-08-28] MEDS: OMEPRAZOLE 20 MG CAPSULE.DR GT SCH (05:23)
[2021-08-28] MEDS: ACETAMINOPHEN GT SCH ×2 (08:03→21:13)
[2021-08-28] MEDS: TERAZOSIN 1 MG CAPSULE GT SCH (08:03)
[2021-08-28] MEDS: [UNRECOGNIZED DRUG - OTHER] GT SCH ×2 (08:03→21:13)
[2021-08-28] MEDS: ARGININE/GLUTAMINE/CALCIUM BMB 1 EACH POWD.PACK GT SCH ×2 (08:04→17:18)
[2021-08-28] MEDS: levETIRAcetam 500 MG/5 ML LIQUID UDC GT SCH ×2 (08:07→21:14)
[2021-08-28] MEDS: BACLOFEN 10 MG TABLET GT SCH ×2 (08:07→17:18)
[2021-08-28] MEDS: PHENOBARBITAL 97.2 MG TABLET GT SCH ×2 (08:07→21:21)
[2021-08-28] MEDS: AMANTADINE HCL 50 MG/5 ML GT SCH ×2 (08:08→21:21)
[2021-08-28] MEDS: NEOMY/BACITRA/POLYMYXIN B OINT UD PACKET TP SCH ×2 (08:10→21:24)
[2021-08-28] MEDS: NYSTATIN CREAM 30 GM TUBE TP SCH ×10 (08:10→21:24)
[2021-08-28] MEDS: SODIUM HYPOCHLORITE 0.125% (QUARTER STRENGTH) 473 ML BOTTLE TP SCH ×2 (08:10→21:23)
[2021-08-28] MEDS: VITAMINS A AND D OINT TP SCH ×2 (08:10→21:24)
[2021-08-28] MEDS: COD LIVER OIL/ZINC OXIDE OINT 113 GM TUBE TP SCH ×2 (08:10→21:24)
[2021-08-28] MEDS: HEPARIN SODIUM,PORCINE 5,000 UNITS/ML VIAL SQ SCH ×2 (08:10→21:07)
[2021-08-28] MEDS: TRIAMCINOLONE ACET 0.1% CREAM 15 GM TUBE TP SCH ×8 (08:10→21:24)
[2021-08-28] MEDS: METOPROLOL TARTRATE 25 MG TABLET GT SCH ×2 (09:00→21:21)
[2021-08-28] MEDS: NORMAL SALINE FLUSH 10 ML DISP.SYRIN IV SCH ×2 (09:00→21:00)
[2021-08-28] MEDS: HYDROGEN PEROXIDE 3% 118 ML BOTTLE TP SCH ×2 (09:14→21:21)
[2021-08-28 18:00] VITALS: BP 134/68
--- NOTE | 2021-08-28 18:50 | NUR ---
Continue on Vancomycin 1 gm ivatb,and cefepine 1 gm Ivatb,no adverse reaction noted.Midline on the R upper arm intact.Flushed as ordered.
[2021-08-28] MEDS: MINERAL OIL/PETROLAT OPHT OINT 3.5 GM TUBE EACHEYE SCH (21:14)
[2021-08-28] MEDS: ATORVASTATIN 20 MG TABLET GT SCH (21:18)
[2021-08-28] MEDS: ASCORBIC ACID 500 MG TABLET GT SCH (21:21)
[2021-08-28] MEDS: THIAMINE HCL 100 MG TABLET GT SCH (21:21)
[2021-08-28] MEDS: HYDROCODONE/APAP 5-325MG TABLET GT PRN (22:34)
[2021-08-28 23:35] VITALS: BP 136/80
[2021-08-29] MEDS: IPRATROPIUM BROMIDE 0.5 MG/2.5 ML NEBU NEB SCH ×4 (01:00→19:29)
[2021-08-29] MEDS: LEVALBUTEROL HCL 1.25 MG/0.5 ML NEB NEB SCH ×4 (01:00→19:29)
[2021-08-29 04:21] LABS: MEAN CORPUSCULAR HEMOGLOBIN 28.8 uug (23.8-33.4); MEAN CORPUSCULAR VOLUME 86.5 fL (73.0-96.2); PLATELET COUNT (AUTO) 264 K/uL (152-348)
[2021-08-29] MEDS: CEFEPIME HCL 1 G in IV DEXTROSE 5% 50 ML IV SCH ×3 (04:30→21:02)
[2021-08-29 04:34] LABS: ALANINE AMINOTRANSFERASE 30 U/L (16-63); ALKALINE PHOSPHATASE 179 U/L (50-136); ASPARTATE AMINOTRANSFERASE 18 U/L (15-37); BILIRUBIN,TOTAL 0.3 mg/dL (0.2-1.0); CARBON DIOXIDE 30 mmol/L (21-32); CHLORIDE 96 mmol/L (98-107); CREATININE 0.6 mg/dL (0.6-1.3); GLUCOSE 136 mg/dL (74-106); MAGNESIUM 2.1 mg/dL (1.8-2.4); PHOSPHOROUS 3.9 mg/dL (2.5-4.9); POTASSIUM 4.3 mmol/L (3.5-5.1); TOTAL PROTEIN, SERUM 7.9 g/dL (6.4-8.2); UREA NITROGEN, BLOOD 24 mg/dL (7-18)
[2021-08-29] MEDS: BLOOD SUGAR DIAGNOSTIC 1 EACH STRIP VI SCH ×3 (05:12→17:12)
[2021-08-29] MEDS: OMEPRAZOLE 20 MG CAPSULE.DR GT SCH (05:12)
[2021-08-29] MEDS: NUTRISOURCE FIBER 4 GM PACKET GT SCH ×2 (05:12→17:12)
[2021-08-29] MEDS: INSULIN REGULAR, HUMAN 300 UNIT/3 ML VIAL SQ PRN ×3 (05:13→17:12)
[2021-08-29] MEDS: VANCOMYCIN IV 1,000 MG in IV DEXTROSE 5% 250 ML IV SCH ×2 (05:15→18:01)
--- NOTE | 2021-08-29 05:15 | NUR ---
Vancomycin trough done at 0400 am result received Trough level : (15.1), Patient on IV ATB Vancomycin and cefepime for DX osteomyelitis. ELIZABETH midline is intact and no sign and symptoms of complication noted on airborne isolation precaution for PUI COVID-19 per admission protocol. continue monitoring.
[2021-08-29 06:32] VITALS: BP 143/72
[2021-08-29] MEDS: [UNRECOGNIZED DRUG - OTHER] GT SCH ×2 (08:18→21:08)
[2021-08-29] MEDS: ACETAMINOPHEN GT SCH ×2 (08:18→21:08)
[2021-08-29] MEDS: TERAZOSIN 1 MG CAPSULE GT SCH (08:19)
[2021-08-29] MEDS: ARGININE/GLUTAMINE/CALCIUM BMB 1 EACH POWD.PACK GT SCH ×2 (08:19→17:12)
[2021-08-29] MEDS: METOPROLOL TARTRATE 25 MG TABLET GT SCH ×2 (08:19→21:11)
[2021-08-29] MEDS: BACLOFEN 10 MG TABLET GT SCH ×2 (08:20→21:11)
[2021-08-29] MEDS: AMANTADINE HCL 50 MG/5 ML GT SCH ×2 (08:20→21:12)
[2021-08-29] MEDS: PHENOBARBITAL 97.2 MG TABLET GT SCH ×2 (08:20→21:11)
[2021-08-29] MEDS: levETIRAcetam 500 MG/5 ML LIQUID UDC GT SCH ×2 (08:20→21:08)
[2021-08-29] MEDS: HEPARIN SODIUM,PORCINE 5,000 UNITS/ML VIAL SQ SCH ×2 (08:22→21:00)
[2021-08-29] MEDS: NYSTATIN CREAM 30 GM TUBE TP SCH ×10 (08:23→21:35)
[2021-08-29] MEDS: SODIUM HYPOCHLORITE 0.125% (QUARTER STRENGTH) 473 ML BOTTLE TP SCH ×2 (08:23→21:34)
[2021-08-29] MEDS: TRIAMCINOLONE ACET 0.1% CREAM 15 GM TUBE TP SCH ×8 (08:23→21:34)
[2021-08-29] MEDS: VITAMINS A AND D OINT TP SCH ×2 (08:23→21:35)
[2021-08-29] MEDS: NEOMY/BACITRA/POLYMYXIN B OINT UD PACKET TP SCH ×2 (08:23→21:35)
[2021-08-29] MEDS: COD LIVER OIL/ZINC OXIDE OINT 113 GM TUBE TP SCH ×2 (08:23→21:34)
[2021-08-29] MEDS: NORMAL SALINE FLUSH 10 ML DISP.SYRIN IV SCH ×2 (09:00→21:02)
[2021-08-29] MEDS: HYDROGEN PEROXIDE 3% 118 ML BOTTLE TP SCH ×2 (10:00→21:40)
[2021-08-29 12:18] VITALS: BP 142/85
[2021-08-29] MEDS: GLUCERNA 1.2 1000ML LIQUID GT PRN (16:42)
[2021-08-29 18:06] VITALS: BP 138/71
[2021-08-29] MEDS: MINERAL OIL/PETROLAT OPHT OINT 3.5 GM TUBE EACHEYE SCH (21:08)
[2021-08-29] MEDS: ATORVASTATIN 20 MG TABLET GT SCH (21:11)
[2021-08-29] MEDS: THIAMINE HCL 100 MG TABLET GT SCH (21:12)
[2021-08-29] MEDS: ASCORBIC ACID 500 MG TABLET GT SCH (21:33)
--- NOTE | 2021-08-29 22:14 | NUR ---
Currently on Vancomycin and Cefepime IV for sacral osteomyelitis, Afebrile, no adverse reactions noted. ELIZABETH Midline is intact and no signs of any complications, with ongoing treatment to sacral wound, no oozing or bleeding noted from the wound. On airborne isolation precaution for PUI covid 19 per admission protocol, turned and repositioned, kept patient clean and comfortable.
[2021-08-30] MEDS: BLOOD SUGAR DIAGNOSTIC 1 EACH STRIP VI SCH ×4 (00:18→17:03)
[2021-08-30] MEDS: INSULIN REGULAR, HUMAN 300 UNIT/3 ML VIAL SQ PRN ×4 (00:24→17:04)
[2021-08-30 00:48] VITALS: BP 149/80
[2021-08-30] MEDS: IPRATROPIUM BROMIDE 0.5 MG/2.5 ML NEBU NEB SCH ×4 (01:01→19:07)
[2021-08-30] MEDS: LEVALBUTEROL HCL 1.25 MG/0.5 ML NEB NEB SCH ×4 (01:01→19:07)
[2021-08-30] MEDS: CEFEPIME HCL 1 G in IV DEXTROSE 5% 50 ML IV SCH ×3 (05:01→21:18)
[2021-08-30] MEDS: ARGININE/GLUTAMINE/CALCIUM BMB 1 EACH POWD.PACK GT SCH ×2 (05:10→17:03)
[2021-08-30] MEDS: NUTRISOURCE FIBER 4 GM PACKET GT SCH ×2 (05:11→17:03)
[2021-08-30] MEDS: OMEPRAZOLE 20 MG CAPSULE.DR GT SCH (05:11)
[2021-08-30 06:04] VITALS: BP 130/72
[2021-08-30] MEDS: HYDROCODONE/APAP 5-325MG TABLET GT PRN (08:00)
[2021-08-30] MEDS: HYDROGEN PEROXIDE 3% 118 ML BOTTLE TP SCH ×2 (08:20→21:28)
[2021-08-30] MEDS: VANCOMYCIN IV 1,000 MG in IV DEXTROSE 5% 250 ML IV SCH ×2 (08:29→22:55)
[2021-08-30] MEDS: NORMAL SALINE FLUSH 10 ML DISP.SYRIN IV SCH ×2 (09:00→21:18)
[2021-08-30] MEDS: METOPROLOL TARTRATE 25 MG TABLET GT SCH ×2 (09:07→20:47)
[2021-08-30] MEDS: BACLOFEN 10 MG TABLET GT SCH ×2 (09:07→20:46)
[2021-08-30] MEDS: [UNRECOGNIZED DRUG - OTHER] GT SCH ×2 (09:07→20:30)
[2021-08-30] MEDS: TERAZOSIN 1 MG CAPSULE GT SCH (09:07)
[2021-08-30] MEDS: levETIRAcetam 500 MG/5 ML LIQUID UDC GT SCH ×2 (09:07→20:46)
[2021-08-30] MEDS: ACETAMINOPHEN GT SCH ×2 (09:07→20:30)
[2021-08-30] MEDS: PHENOBARBITAL 97.2 MG TABLET GT SCH ×2 (09:08→20:47)
[2021-08-30] MEDS: HEPARIN SODIUM,PORCINE 5,000 UNITS/ML VIAL SQ SCH ×2 (09:08→20:49)
[2021-08-30] MEDS: AMANTADINE HCL 50 MG/5 ML GT SCH ×2 (09:08→20:47)
[2021-08-30] MEDS: SODIUM HYPOCHLORITE 0.125% (QUARTER STRENGTH) 473 ML BOTTLE TP SCH ×2 (09:09→20:50)
[2021-08-30] MEDS: COD LIVER OIL/ZINC OXIDE OINT 113 GM TUBE TP SCH ×2 (09:09→20:50)
[2021-08-30] MEDS: VITAMINS A AND D OINT TP SCH ×2 (09:10→20:51)
[2021-08-30] MEDS: NYSTATIN CREAM 30 GM TUBE TP SCH ×10 (09:10→20:51)
[2021-08-30] MEDS: TRIAMCINOLONE ACET 0.1% CREAM 15 GM TUBE TP SCH ×8 (09:10→20:50)
[2021-08-30] MEDS: NEOMY/BACITRA/POLYMYXIN B OINT UD PACKET TP SCH ×2 (09:10→20:51)
--- NOTE | 2021-08-30 15:55 | NUR ---
This SW notified patient's daughter Janis by email that the next IDT meeting for the patient is scheduled for 09/06/2021 at 11am. This SW asked Janis to let this SW know if she would like to participate in the meeting by speaker phone.
[2021-08-30] MEDS: MINERAL OIL/PETROLAT OPHT OINT 3.5 GM TUBE EACHEYE SCH (20:46)
[2021-08-30] MEDS: ATORVASTATIN 20 MG TABLET GT SCH (20:46)
[2021-08-30] MEDS: THIAMINE HCL 100 MG TABLET GT SCH (20:48)
[2021-08-30] MEDS: ASCORBIC ACID 500 MG TABLET GT SCH (20:49)
[2021-08-31] MEDS: BLOOD SUGAR DIAGNOSTIC 1 EACH STRIP VI SCH ×4 (00:24→17:27)
[2021-08-31] MEDS: INSULIN REGULAR, HUMAN 300 UNIT/3 ML VIAL SQ PRN ×4 (00:29→17:28)
[2021-08-31] MEDS: IPRATROPIUM BROMIDE 0.5 MG/2.5 ML NEBU NEB SCH ×4 (01:30→19:10)
[2021-08-31] MEDS: LEVALBUTEROL HCL 1.25 MG/0.5 ML NEB NEB SCH ×4 (01:30→19:10)
[2021-08-31] MEDS: GLUCERNA 1.2 1000ML LIQUID GT PRN ×2 (02:24→20:57)
[2021-08-31] MEDS: CEFEPIME HCL 1 G in IV DEXTROSE 5% 50 ML IV SCH ×3 (05:08→21:13)
[2021-08-31] MEDS: OMEPRAZOLE 20 MG CAPSULE.DR GT SCH (05:10)
[2021-08-31] MEDS: ARGININE/GLUTAMINE/CALCIUM BMB 1 EACH POWD.PACK GT SCH ×2 (05:10→17:31)
[2021-08-31] MEDS: NUTRISOURCE FIBER 4 GM PACKET GT SCH ×2 (05:10→17:31)
[2021-08-31 06:28] VITALS: BP 146/80
[2021-08-31] MEDS: LORAZEPAM 1 MG TABLET GT PRN ×2 (07:45→18:43)
[2021-08-31] MEDS: [UNRECOGNIZED DRUG - OTHER] GT SCH ×2 (07:59→20:30)
[2021-08-31] MEDS: ACETAMINOPHEN GT SCH ×2 (07:59→20:30)
[2021-08-31] MEDS: TERAZOSIN 1 MG CAPSULE GT SCH (08:00)
[2021-08-31] MEDS: levETIRAcetam 500 MG/5 ML LIQUID UDC GT SCH ×2 (08:01→21:01)
[2021-08-31] MEDS: BACLOFEN 10 MG TABLET GT SCH ×2 (08:01→21:02)
[2021-08-31] MEDS: METOPROLOL TARTRATE 25 MG TABLET GT SCH ×2 (08:01→21:03)
[2021-08-31] MEDS: AMANTADINE HCL 50 MG/5 ML GT SCH ×2 (08:02→21:04)
[2021-08-31] MEDS: PHENOBARBITAL 97.2 MG TABLET GT SCH ×2 (08:02→21:03)
[2021-08-31] MEDS: SODIUM HYPOCHLORITE 0.125% (QUARTER STRENGTH) 473 ML BOTTLE TP SCH ×2 (08:11→21:08)
[2021-08-31] MEDS: COD LIVER OIL/ZINC OXIDE OINT 113 GM TUBE TP SCH ×2 (08:11→21:08)
[2021-08-31] MEDS: HEPARIN SODIUM,PORCINE 5,000 UNITS/ML VIAL SQ SCH ×2 (08:11→21:06)
[2021-08-31] MEDS: NYSTATIN CREAM 30 GM TUBE TP SCH ×10 (08:12→21:09)
[2021-08-31] MEDS: TRIAMCINOLONE ACET 0.1% CREAM 15 GM TUBE TP SCH ×8 (08:12→21:08)
[2021-08-31] MEDS: VITAMINS A AND D OINT TP SCH ×2 (08:13→21:09)
[2021-08-31] MEDS: NEOMY/BACITRA/POLYMYXIN B OINT UD PACKET TP SCH ×2 (08:13→21:09)
[2021-08-31] MEDS: HYDROGEN PEROXIDE 3% 118 ML BOTTLE TP SCH ×2 (08:17→21:54)
[2021-08-31] MEDS: NORMAL SALINE FLUSH 10 ML DISP.SYRIN IV SCH ×2 (09:00→21:13)
[2021-08-31 12:49] VITALS: BP 134/85
[2021-08-31] MEDS: VANCOMYCIN IV 1,000 MG in IV DEXTROSE 5% 250 ML IV SCH (13:21)
--- NOTE | 2021-08-31 16:14 | NUR ---
INTERDISCIPLINARY PLAN OF CARE CONFERENCE was on 08/30/2021. Pts father Arden, participated in the meeting today by speaker phone. Dr. Peralta and the Interdisciplinary Team reviewed the current plan of care in detail. RN reported on pt's medical condition and noted pts has not continued to vomit. Physical therapist reported that they continue range of motion exercises to decrease stiffness. See RN IDT conference notes. No major changes in patient's current condition were reported by nursing or by any of the other disciplines. See all other disciplines IDT notes and physician's progress notes for additional details.
[2021-08-31] MEDS: MINERAL OIL/PETROLAT OPHT OINT 3.5 GM TUBE EACHEYE SCH (21:01)
[2021-08-31] MEDS: ATORVASTATIN 20 MG TABLET GT SCH (21:02)
[2021-08-31] MEDS: ASCORBIC ACID 500 MG TABLET GT SCH (21:04)
[2021-08-31] MEDS: THIAMINE HCL 100 MG TABLET GT SCH (21:04)
--- NOTE | 2021-08-31 22:04 | NUR ---
Continue on IVatb,no adverse reaction noted,R upper arm midline intact.
[2021-09-01] MEDS: BLOOD SUGAR DIAGNOSTIC 1 EACH STRIP VI SCH ×4 (00:39→17:28)
[2021-09-01] MEDS: INSULIN REGULAR, HUMAN 300 UNIT/3 ML VIAL SQ PRN ×4 (00:41→18:06)
[2021-09-01] MEDS: IPRATROPIUM BROMIDE 0.5 MG/2.5 ML NEBU NEB SCH ×4 (00:58→19:38)
[2021-09-01] MEDS: LEVALBUTEROL HCL 1.25 MG/0.5 ML NEB NEB SCH ×4 (00:58→19:38)
[2021-09-01 01:07] VITALS: BP 132/75
[2021-09-01] MEDS: VANCOMYCIN IV 1,000 MG in IV DEXTROSE 5% 250 ML IV SCH ×2 (02:58→17:37)
[2021-09-01] MEDS: HYDROCODONE/APAP 5-325MG TABLET GT PRN (03:00)
[2021-09-01] MEDS: LORAZEPAM 1 MG TABLET GT PRN (03:00)
[2021-09-01] MEDS: LEVALBUTEROL HCL 1.25 MG/0.5 ML NEB NEB PRN (04:09)
[2021-09-01] MEDS: IPRATROPIUM BROMIDE 0.5 MG/2.5 ML NEBU NEB PRN (04:09)
[2021-09-01] MEDS: CEFEPIME HCL 1 G in IV DEXTROSE 5% 50 ML IV SCH ×3 (05:04→21:00)
[2021-09-01] MEDS: OMEPRAZOLE 20 MG CAPSULE.DR GT SCH (05:41)
[2021-09-01] MEDS: ARGININE/GLUTAMINE/CALCIUM BMB 1 EACH POWD.PACK GT SCH ×2 (05:41→17:27)
[2021-09-01] MEDS: NUTRISOURCE FIBER 4 GM PACKET GT SCH ×2 (05:41→17:27)
[2021-09-01] MEDS: HYDROGEN PEROXIDE 3% 118 ML BOTTLE TP SCH ×2 (07:36→20:41)
[2021-09-01] MEDS: [UNRECOGNIZED DRUG - OTHER] GT SCH ×2 (08:04→20:30)
[2021-09-01] MEDS: ACETAMINOPHEN GT SCH ×2 (08:04→20:30)
[2021-09-01] MEDS: METOPROLOL TARTRATE 25 MG TABLET GT SCH ×2 (08:05→20:51)
[2021-09-01] MEDS: levETIRAcetam 500 MG/5 ML LIQUID UDC GT SCH ×2 (08:05→20:45)
[2021-09-01] MEDS: AMANTADINE HCL 50 MG/5 ML GT SCH ×2 (08:05→20:52)
[2021-09-01] MEDS: TERAZOSIN 1 MG CAPSULE GT SCH (08:05)
[2021-09-01] MEDS: PHENOBARBITAL 97.2 MG TABLET GT SCH ×2 (08:05→20:52)
[2021-09-01] MEDS: BACLOFEN 10 MG TABLET GT SCH ×2 (08:05→20:47)
[2021-09-01] MEDS: SODIUM HYPOCHLORITE 0.125% (QUARTER STRENGTH) 473 ML BOTTLE TP SCH ×2 (08:06→20:53)
[2021-09-01] MEDS: COD LIVER OIL/ZINC OXIDE OINT 113 GM TUBE TP SCH ×2 (08:06→20:53)
[2021-09-01] MEDS: NORMAL SALINE FLUSH 10 ML DISP.SYRIN IV SCH ×2 (08:06→21:36)
[2021-09-01] MEDS: TRIAMCINOLONE ACET 0.1% CREAM 15 GM TUBE TP SCH ×8 (08:06→20:53)
[2021-09-01] MEDS: NYSTATIN CREAM 30 GM TUBE TP SCH ×10 (08:07→20:54)
[2021-09-01] MEDS: NEOMY/BACITRA/POLYMYXIN B OINT UD PACKET TP SCH ×2 (08:08→20:54)
[2021-09-01] MEDS: VITAMINS A AND D OINT TP SCH ×2 (08:08→20:54)
[2021-09-01] MEDS: HEPARIN SODIUM,PORCINE 5,000 UNITS/ML VIAL SQ SCH ×2 (08:15→20:52)
[2021-09-01 10:23] VITALS: BP 121/73
--- NOTE | 2021-09-01 10:30 | NUR ---
PT. REMAINS CALMED WITH NO SOB AT THIS TIME WITH IMPROVED V/S9SEE RECORD) AFTER BATHING ,MORNING CARE,WOUND CARE AND RESPIRATORY CARE AND TRACHEAL SUCTION,NO CYANOSIS,SKIN DRY AND WARM TO TOUCH CLOSELY MONITORED FOR SAFETY AND COMFORT WITH FREQUENT VISUAL CHECKS.
--- NOTE | 2021-09-01 13:50 | NUR ---
Clinical Social Work Note DELANEY spoke with patients daughter Janis to notify about patients upcoming dentist appointment on 09/02/2021. DELANEY gathered verbal consent from Janis for teeth cleaning evaluation.
--- NOTE | 2021-09-01 16:42 | NUR ---
SEEN ANDXAMINED BY KENDALL RIZVI) WITH NNO.
[2021-09-01] MEDS: MINERAL OIL/PETROLAT OPHT OINT 3.5 GM TUBE EACHEYE SCH (20:45)
[2021-09-01] MEDS: ATORVASTATIN 20 MG TABLET GT SCH (20:48)
[2021-09-01] MEDS: THIAMINE HCL 100 MG TABLET GT SCH (20:52)
[2021-09-01] MEDS: ASCORBIC ACID 500 MG TABLET GT SCH (20:52)
[2021-09-02] MEDS: BLOOD SUGAR DIAGNOSTIC 1 EACH STRIP VI SCH ×5 (00:22→23:48)
[2021-09-02] MEDS: INSULIN REGULAR, HUMAN 300 UNIT/3 ML VIAL SQ PRN ×3 (00:24→12:16)
[2021-09-02 00:46] VITALS: BP 141/80
[2021-09-02] MEDS: LEVALBUTEROL HCL 1.25 MG/0.5 ML NEB NEB SCH ×4 (01:03→19:26)
[2021-09-02] MEDS: IPRATROPIUM BROMIDE 0.5 MG/2.5 ML NEBU NEB SCH ×4 (01:03→19:26)
[2021-09-02] MEDS: LORAZEPAM 1 MG TABLET GT PRN ×4 (04:00→21:08)
[2021-09-02] MEDS: CEFEPIME HCL 1 G in IV DEXTROSE 5% 50 ML IV SCH ×3 (05:00→21:26)
[2021-09-02 05:30] VITALS: BP 136/82
[2021-09-02 06:05] LABS: HEMATOCRIT 29.5 % (36.7-47.1); PLATELET COUNT (AUTO) 253 K/uL (152-348)
[2021-09-02 06:06] LABS: CARBON DIOXIDE 31 mmol/L (21-32); CHLORIDE 96 mmol/L (98-107); CREATININE 0.5 mg/dL (0.6-1.3); GLUCOSE 131 mg/dL (74-106); POTASSIUM 4.4 mmol/L (3.5-5.1); UREA NITROGEN, BLOOD 29 mg/dL (7-18); VANCOMYCIN,TROUGH 18.2 ug/mL (12.0-20.0)
[2021-09-02] MEDS: OMEPRAZOLE 20 MG CAPSULE.DR GT SCH (06:12)
[2021-09-02] MEDS: ARGININE/GLUTAMINE/CALCIUM BMB 1 EACH POWD.PACK GT SCH ×2 (06:12→18:45)
[2021-09-02] MEDS: NUTRISOURCE FIBER 4 GM PACKET GT SCH ×2 (06:12→18:45)
[2021-09-02] MEDS: VANCOMYCIN IV 1,000 MG in IV DEXTROSE 5% 250 ML IV SCH ×2 (07:01→21:26)
[2021-09-02] MEDS: NORMAL SALINE FLUSH 10 ML DISP.SYRIN IV SCH ×2 (09:00→21:26)
[2021-09-02] MEDS: HYDROGEN PEROXIDE 3% 118 ML BOTTLE TP SCH ×2 (09:08→21:30)
[2021-09-02] MEDS: COD LIVER OIL/ZINC OXIDE OINT 113 GM TUBE TP SCH ×2 (09:11→21:00)
[2021-09-02] MEDS: SODIUM HYPOCHLORITE 0.125% (QUARTER STRENGTH) 473 ML BOTTLE TP SCH ×2 (09:11→21:00)
[2021-09-02] MEDS: TRIAMCINOLONE ACET 0.1% CREAM 15 GM TUBE TP SCH ×8 (09:11→21:05)
[2021-09-02] MEDS: HEPARIN SODIUM,PORCINE 5,000 UNITS/ML VIAL SQ SCH ×2 (09:11→21:07)
[2021-09-02] MEDS: NYSTATIN CREAM 30 GM TUBE TP SCH ×10 (09:12→21:00)
[2021-09-02] MEDS: ACETAMINOPHEN GT SCH ×2 (09:13→20:56)
[2021-09-02] MEDS: BACLOFEN 10 MG TABLET GT SCH ×2 (09:13→21:04)
[2021-09-02] MEDS: [UNRECOGNIZED DRUG - OTHER] GT SCH ×2 (09:13→20:56)
[2021-09-02] MEDS: levETIRAcetam 500 MG/5 ML LIQUID UDC GT SCH ×2 (09:13→21:04)
[2021-09-02] MEDS: TERAZOSIN 1 MG CAPSULE GT SCH (09:13)
[2021-09-02] MEDS: METOPROLOL TARTRATE 25 MG TABLET GT SCH ×2 (09:14→21:05)
[2021-09-02] MEDS: PHENOBARBITAL 97.2 MG TABLET GT SCH ×2 (09:14→21:05)
[2021-09-02] MEDS: AMANTADINE HCL 50 MG/5 ML GT SCH ×2 (09:14→21:05)
[2021-09-02] MEDS: VITAMINS A AND D OINT TP SCH ×2 (09:15→21:00)
[2021-09-02] MEDS: NEOMY/BACITRA/POLYMYXIN B OINT UD PACKET TP SCH ×2 (09:15→21:00)
--- NOTE | 2021-09-02 12:02 | NUR ---
EXAMINED BY DR. BLACKWOOD DENTIST AND WITH NNO.
[2021-09-02] MEDS: GLUCERNA 1.2 1000ML LIQUID GT PRN (12:03)
[2021-09-02] MEDS: HYDROCODONE/APAP 5-325MG TABLET GT PRN ×2 (12:05→17:50)
[2021-09-02 12:32] VITALS: BP 126/97
--- NOTE | 2021-09-02 14:48 | NUR ---
Clinical Social Work Note Patient was seen and examined by dentist, Dr. Snell [phone].
--- NOTE | 2021-09-02 17:48 | NUR ---
NEW ORDER CARRIED OUT TO CONTINUE SAME DOSE OF VANCOMYCIN IV D/T TODAY AT 0600 D/T LEVEL IS 18.2.
[2021-09-02 18:00] VITALS: BP 144/83
--- NOTE | 2021-09-02 18:30 | NUR ---
NO A/R TO ATB TX ,IV LINE INTACTA ND PATENT.
[2021-09-02] MEDS: ATORVASTATIN 20 MG TABLET GT SCH (21:04)
[2021-09-02] MEDS: MINERAL OIL/PETROLAT OPHT OINT 3.5 GM TUBE EACHEYE SCH (21:04)
[2021-09-02] MEDS: ASCORBIC ACID 500 MG TABLET GT SCH (21:05)
[2021-09-02] MEDS: THIAMINE HCL 100 MG TABLET GT SCH (21:05)
[2021-09-03] MEDS: INSULIN REGULAR, HUMAN 300 UNIT/3 ML VIAL SQ PRN ×5 (00:30→23:25)
[2021-09-03] MEDS: IPRATROPIUM BROMIDE 0.5 MG/2.5 ML NEBU NEB SCH ×4 (01:32→19:40)
[2021-09-03] MEDS: LEVALBUTEROL HCL 1.25 MG/0.5 ML NEB NEB SCH ×4 (01:32→19:40)
[2021-09-03] MEDS: HYDROCODONE/APAP 5-325MG TABLET GT PRN ×3 (04:00→19:00)
[2021-09-03] MEDS: CEFEPIME HCL 1 G in IV DEXTROSE 5% 50 ML IV SCH ×3 (05:00→20:33)
[2021-09-03] MEDS: LORAZEPAM 1 MG TABLET GT PRN ×3 (05:00→18:17)
[2021-09-03] MEDS: NUTRISOURCE FIBER 4 GM PACKET GT SCH ×2 (05:35→17:02)
[2021-09-03] MEDS: ARGININE/GLUTAMINE/CALCIUM BMB 1 EACH POWD.PACK GT SCH ×2 (05:35→17:02)
[2021-09-03] MEDS: OMEPRAZOLE 20 MG CAPSULE.DR GT SCH (05:35)
[2021-09-03] MEDS: BLOOD SUGAR DIAGNOSTIC 1 EACH STRIP VI SCH ×4 (05:35→23:22)
[2021-09-03] MEDS: GLUCERNA 1.2 1000ML LIQUID GT PRN ×2 (05:36→22:54)
[2021-09-03] MEDS: HYDROGEN PEROXIDE 3% 118 ML BOTTLE TP SCH ×2 (08:05→20:53)
[2021-09-03] MEDS: NYSTATIN CREAM 30 GM TUBE TP SCH ×10 (09:00→20:36)
[2021-09-03] MEDS: TRIAMCINOLONE ACET 0.1% CREAM 15 GM TUBE TP SCH ×8 (09:00→20:35)
[2021-09-03] MEDS: NEOMY/BACITRA/POLYMYXIN B OINT UD PACKET TP SCH ×2 (09:00→20:36)
[2021-09-03] MEDS: VITAMINS A AND D OINT TP SCH ×2 (09:00→20:36)
[2021-09-03] MEDS: [UNRECOGNIZED DRUG - OTHER] GT SCH ×2 (09:08→20:28)
[2021-09-03] MEDS: ACETAMINOPHEN GT SCH ×2 (09:08→20:28)
[2021-09-03] MEDS: COD LIVER OIL/ZINC OXIDE OINT 113 GM TUBE TP SCH ×2 (09:09→20:35)
[2021-09-03] MEDS: levETIRAcetam 500 MG/5 ML LIQUID UDC GT SCH ×2 (09:09→20:28)
[2021-09-03] MEDS: SODIUM HYPOCHLORITE 0.125% (QUARTER STRENGTH) 473 ML BOTTLE TP SCH ×2 (09:09→20:35)
[2021-09-03] MEDS: TERAZOSIN 1 MG CAPSULE GT SCH (09:09)
[2021-09-03] MEDS: PHENOBARBITAL 97.2 MG TABLET GT SCH ×2 (09:09→20:29)
[2021-09-03] MEDS: BACLOFEN 10 MG TABLET GT SCH ×2 (09:09→20:29)
[2021-09-03] MEDS: METOPROLOL TARTRATE 25 MG TABLET GT SCH ×2 (09:09→20:29)
[2021-09-03] MEDS: AMANTADINE HCL 50 MG/5 ML GT SCH ×2 (09:09→20:33)
[2021-09-03] MEDS: HEPARIN SODIUM,PORCINE 5,000 UNITS/ML VIAL SQ SCH ×2 (09:11→20:35)
[2021-09-03] MEDS: VANCOMYCIN IV 1,000 MG in IV DEXTROSE 5% 250 ML IV SCH (11:15)
[2021-09-03] MEDS: MINERAL OIL/PETROLAT OPHT OINT 3.5 GM TUBE EACHEYE SCH (20:28)
[2021-09-03] MEDS: ATORVASTATIN 20 MG TABLET GT SCH (20:29)
[2021-09-03] MEDS: THIAMINE HCL 100 MG TABLET GT SCH (20:33)
[2021-09-03] MEDS: ASCORBIC ACID 500 MG TABLET GT SCH (20:33)
[2021-09-03] MEDS: NORMAL SALINE FLUSH 10 ML DISP.SYRIN IV SCH (21:00)
--- NOTE | 2021-09-03 23:50 | NUR ---
Still on Vancomycin and Cefepime IV for sacral osteomyelitis, Afebrile, no adverse reactions noted. ELIZABETH Midline is intact and no signs of any complications on midline site, with ongoing treatment to sacral wound, no oozing or bleeding noted from the wound. On airborne isolation precaution for PUI covid 19 per admission protocol, turned and repositioned, kept patient clean and comfortable.
[2021-09-04] MEDS: VANCOMYCIN IV 1,000 MG in IV DEXTROSE 5% 250 ML IV SCH ×2 (01:13→15:00)
[2021-09-04] MEDS: IPRATROPIUM BROMIDE 0.5 MG/2.5 ML NEBU NEB SCH ×4 (01:22→19:35)
[2021-09-04] MEDS: LEVALBUTEROL HCL 1.25 MG/0.5 ML NEB NEB SCH ×4 (01:22→19:35)
[2021-09-04] MEDS: ARGININE/GLUTAMINE/CALCIUM BMB 1 EACH POWD.PACK GT SCH ×2 (05:33→18:13)
[2021-09-04] MEDS: NUTRISOURCE FIBER 4 GM PACKET GT SCH ×2 (05:33→18:13)
[2021-09-04] MEDS: BLOOD SUGAR DIAGNOSTIC 1 EACH STRIP VI SCH ×3 (05:33→18:13)
[2021-09-04] MEDS: CEFEPIME HCL 1 G in IV DEXTROSE 5% 50 ML IV SCH ×3 (05:33→21:22)
[2021-09-04] MEDS: OMEPRAZOLE 20 MG CAPSULE.DR GT SCH (05:33)
[2021-09-04] MEDS: ACETAMINOPHEN GT SCH ×2 (08:34→20:30)
[2021-09-04] MEDS: [UNRECOGNIZED DRUG - OTHER] GT SCH ×2 (08:34→20:30)
[2021-09-04] MEDS: BACLOFEN 10 MG TABLET GT SCH ×2 (08:35→21:51)
[2021-09-04] MEDS: METOPROLOL TARTRATE 25 MG TABLET GT SCH ×2 (08:35→21:52)
[2021-09-04] MEDS: TERAZOSIN 1 MG CAPSULE GT SCH (08:35)
[2021-09-04] MEDS: levETIRAcetam 500 MG/5 ML LIQUID UDC GT SCH ×2 (08:35→21:51)
[2021-09-04] MEDS: AMANTADINE HCL 50 MG/5 ML GT SCH ×2 (08:36→21:57)
[2021-09-04] MEDS: PHENOBARBITAL 97.2 MG TABLET GT SCH ×2 (08:36→21:52)
[2021-09-04] MEDS: TRIAMCINOLONE ACET 0.1% CREAM 15 GM TUBE TP SCH ×8 (08:43→21:58)
[2021-09-04] MEDS: HEPARIN SODIUM,PORCINE 5,000 UNITS/ML VIAL SQ SCH ×2 (08:43→21:00)
[2021-09-04] MEDS: SODIUM HYPOCHLORITE 0.125% (QUARTER STRENGTH) 473 ML BOTTLE TP SCH ×2 (08:43→21:58)
[2021-09-04] MEDS: NYSTATIN CREAM 30 GM TUBE TP SCH ×10 (08:43→21:59)
[2021-09-04] MEDS: COD LIVER OIL/ZINC OXIDE OINT 113 GM TUBE TP SCH ×2 (08:43→21:58)
[2021-09-04] MEDS: VITAMINS A AND D OINT TP SCH ×2 (08:44→21:59)
[2021-09-04] MEDS: NEOMY/BACITRA/POLYMYXIN B OINT UD PACKET TP SCH ×2 (08:44→21:59)
[2021-09-04] MEDS: NORMAL SALINE FLUSH 10 ML DISP.SYRIN IV SCH ×2 (09:00→21:00)
[2021-09-04] MEDS: HYDROGEN PEROXIDE 3% 118 ML BOTTLE TP SCH ×2 (10:20→21:19)
[2021-09-04] MEDS: HYDROCODONE/APAP 5-325MG TABLET GT PRN (10:58)
[2021-09-04 12:00] VITALS: BP 143/79
[2021-09-04] MEDS: INSULIN REGULAR, HUMAN 300 UNIT/3 ML VIAL SQ PRN ×2 (12:57→18:13)
[2021-09-04 18:00] VITALS: BP 143/81
[2021-09-04] MEDS: GLUCERNA 1.2 1000ML LIQUID GT PRN (18:13)
--- NOTE | 2021-09-04 19:05 | NUR ---
RT. ARM MIDLINE INTACT AND PATENT ,LOCAL DRESSING CHANGED AND NO S/S OF LOCAL INFECTION NOTED.
[2021-09-04] MEDS: MINERAL OIL/PETROLAT OPHT OINT 3.5 GM TUBE EACHEYE SCH (21:48)
[2021-09-04] MEDS: ATORVASTATIN 20 MG TABLET GT SCH (21:51)
[2021-09-04] MEDS: THIAMINE HCL 100 MG TABLET GT SCH (21:57)
[2021-09-04] MEDS: ASCORBIC ACID 500 MG TABLET GT SCH (21:57)
--- NOTE | 2021-09-04 23:46 | NUR ---
Continues on Vancomycin and Cefepime IV for sacral osteomyelitis, no adverse reactions noted. ELIZABETH Midline is intact and no signs of any complications on midline site, with ongoing treatment to sacral wound. Turned and repositioned for comfort.
[2021-09-05] MEDS: BLOOD SUGAR DIAGNOSTIC 1 EACH STRIP VI SCH ×4 (00:01→18:05)
[2021-09-05] MEDS: HYDROCODONE/APAP 5-325MG TABLET GT PRN ×2 (00:02→18:34)
[2021-09-05] MEDS: INSULIN REGULAR, HUMAN 300 UNIT/3 ML VIAL SQ PRN ×4 (00:07→18:06)
[2021-09-05] MEDS: LEVALBUTEROL HCL 1.25 MG/0.5 ML NEB NEB SCH ×4 (01:23→19:11)
[2021-09-05] MEDS: IPRATROPIUM BROMIDE 0.5 MG/2.5 ML NEBU NEB SCH ×4 (01:23→19:11)
[2021-09-05] MEDS: VANCOMYCIN IV 1,000 MG in IV DEXTROSE 5% 250 ML IV SCH ×2 (05:00→18:50)
[2021-09-05] MEDS: CEFEPIME HCL 1 G in IV DEXTROSE 5% 50 ML IV SCH ×3 (05:00→21:04)
[2021-09-05] MEDS: OMEPRAZOLE 20 MG CAPSULE.DR GT SCH (05:56)
[2021-09-05] MEDS: ARGININE/GLUTAMINE/CALCIUM BMB 1 EACH POWD.PACK GT SCH ×2 (05:56→17:04)
[2021-09-05] MEDS: NUTRISOURCE FIBER 4 GM PACKET GT SCH ×2 (05:56→17:04)
[2021-09-05] MEDS: ACETAMINOPHEN GT SCH ×2 (08:09→20:15)
[2021-09-05] MEDS: [UNRECOGNIZED DRUG - OTHER] GT SCH ×2 (08:09→20:15)
[2021-09-05] MEDS: TERAZOSIN 1 MG CAPSULE GT SCH (08:09)
[2021-09-05] MEDS: levETIRAcetam 500 MG/5 ML LIQUID UDC GT SCH ×2 (08:11→20:16)
[2021-09-05] MEDS: BACLOFEN 10 MG TABLET GT SCH ×2 (08:11→20:16)
[2021-09-05] MEDS: METOPROLOL TARTRATE 25 MG TABLET GT SCH ×2 (08:11→20:16)
[2021-09-05] MEDS: PHENOBARBITAL 97.2 MG TABLET GT SCH ×2 (08:12→21:00)
[2021-09-05] MEDS: AMANTADINE HCL 50 MG/5 ML GT SCH ×2 (08:14→20:16)
[2021-09-05] MEDS: TRIAMCINOLONE ACET 0.1% CREAM 15 GM TUBE TP SCH ×8 (08:21→20:17)
[2021-09-05] MEDS: SODIUM HYPOCHLORITE 0.125% (QUARTER STRENGTH) 473 ML BOTTLE TP SCH ×2 (08:21→20:17)
[2021-09-05] MEDS: NYSTATIN CREAM 30 GM TUBE TP SCH ×10 (08:21→20:18)
[2021-09-05] MEDS: COD LIVER OIL/ZINC OXIDE OINT 113 GM TUBE TP SCH ×2 (08:21→20:17)
[2021-09-05] MEDS: HEPARIN SODIUM,PORCINE 5,000 UNITS/ML VIAL SQ SCH ×2 (08:21→20:47)
[2021-09-05 08:22] LABS: CARBON DIOXIDE 32 mmol/L (21-32); CHLORIDE 95 mmol/L (98-107); CREATININE 0.5 mg/dL (0.6-1.3); GLUCOSE 147 mg/dL (74-106); POTASSIUM 4.5 mmol/L (3.5-5.1); UREA NITROGEN, BLOOD 21 mg/dL (7-18)
[2021-09-05] MEDS: VITAMINS A AND D OINT TP SCH ×2 (08:22→20:18)
[2021-09-05] MEDS: NEOMY/BACITRA/POLYMYXIN B OINT UD PACKET TP SCH ×2 (08:22→20:18)
[2021-09-05] MEDS: HYDROGEN PEROXIDE 3% 118 ML BOTTLE TP SCH ×2 (08:53→21:12)
[2021-09-05] MEDS: NORMAL SALINE FLUSH 10 ML DISP.SYRIN IV SCH ×2 (09:00→20:17)
[2021-09-05 12:44] VITALS: BP 138/77
[2021-09-05] MEDS: GLUCERNA 1.2 1000ML LIQUID GT PRN (14:04)
[2021-09-05 18:16] VITALS: BP 143/89
[2021-09-05] MEDS: LORAZEPAM 1 MG TABLET GT PRN (18:34)
[2021-09-05] MEDS: ONDANSETRON HCL 4 MG TABLET GT PRN (18:37)
--- NOTE | 2021-09-05 18:51 | NUR ---
PER KRISTEN PHARMACIST CONTINUE WITH SAME DOSE VANCOMYCIN 1 G NOW D/T VANCOMYCIN TROUGH LEVEL 17.1.
[2021-09-05] MEDS: ATORVASTATIN 20 MG TABLET GT SCH (20:16)
[2021-09-05] MEDS: THIAMINE HCL 100 MG TABLET GT SCH (20:16)
[2021-09-05] MEDS: MINERAL OIL/PETROLAT OPHT OINT 3.5 GM TUBE EACHEYE SCH (20:16)
[2021-09-05] MEDS: ASCORBIC ACID 500 MG TABLET GT SCH (20:17)
[2021-09-06] VITALS: BP 138/82
[2021-09-06] MEDS: BLOOD SUGAR DIAGNOSTIC 1 EACH STRIP VI SCH ×4 (00:19→17:32)
[2021-09-06] MEDS: INSULIN REGULAR, HUMAN 300 UNIT/3 ML VIAL SQ PRN ×4 (00:24→17:33)
[2021-09-06] MEDS: LEVALBUTEROL HCL 1.25 MG/0.5 ML NEB NEB SCH ×5 (01:01→19:00)
[2021-09-06] MEDS: IPRATROPIUM BROMIDE 0.5 MG/2.5 ML NEBU NEB SCH ×4 (01:01→19:00)
[2021-09-06] MEDS: HYDROCODONE/APAP 5-325MG TABLET GT PRN ×2 (05:00→17:01)
[2021-09-06] MEDS: CEFEPIME HCL 1 G in IV DEXTROSE 5% 50 ML IV SCH ×3 (05:11→21:06)
[2021-09-06] MEDS: OMEPRAZOLE 20 MG CAPSULE.DR GT SCH (05:12)
[2021-09-06] MEDS: NUTRISOURCE FIBER 4 GM PACKET GT SCH ×2 (05:12→17:00)
[2021-09-06] MEDS: ARGININE/GLUTAMINE/CALCIUM BMB 1 EACH POWD.PACK GT SCH ×2 (05:12→17:00)
[2021-09-06] MEDS: LORAZEPAM 1 MG TABLET GT PRN (05:14)
[2021-09-06] MEDS: GLUCERNA 1.2 1000ML LIQUID GT PRN ×2 (06:26→23:20)
[2021-09-06] MEDS: HYDROGEN PEROXIDE 3% 118 ML BOTTLE TP SCH ×2 (07:29→20:52)
[2021-09-06] MEDS: ACETAMINOPHEN GT SCH ×2 (08:25→21:06)
[2021-09-06] MEDS: levETIRAcetam 500 MG/5 ML LIQUID UDC GT SCH ×2 (08:25→21:06)
[2021-09-06] MEDS: [UNRECOGNIZED DRUG - OTHER] GT SCH ×2 (08:25→21:06)
[2021-09-06] MEDS: TERAZOSIN 1 MG CAPSULE GT SCH (08:25)
[2021-09-06] MEDS: METOPROLOL TARTRATE 25 MG TABLET GT SCH ×2 (08:26→21:09)
[2021-09-06] MEDS: BACLOFEN 10 MG TABLET GT SCH ×2 (08:26→21:08)
[2021-09-06] MEDS: PHENOBARBITAL 97.2 MG TABLET GT SCH ×2 (08:27→21:00)
[2021-09-06] MEDS: AMANTADINE HCL 50 MG/5 ML GT SCH ×2 (08:27→21:13)
[2021-09-06] MEDS: HEPARIN SODIUM,PORCINE 5,000 UNITS/ML VIAL SQ SCH ×2 (08:34→21:00)
[2021-09-06] MEDS: COD LIVER OIL/ZINC OXIDE OINT 113 GM TUBE TP SCH ×2 (08:35→21:13)
[2021-09-06] MEDS: TRIAMCINOLONE ACET 0.1% CREAM 15 GM TUBE TP SCH ×8 (08:35→21:14)
[2021-09-06] MEDS: NYSTATIN CREAM 30 GM TUBE TP SCH ×10 (08:35→21:14)
[2021-09-06] MEDS: SODIUM HYPOCHLORITE 0.125% (QUARTER STRENGTH) 473 ML BOTTLE TP SCH ×2 (08:35→21:13)
[2021-09-06] MEDS: NEOMY/BACITRA/POLYMYXIN B OINT UD PACKET TP SCH ×2 (08:36→21:14)
[2021-09-06] MEDS: VITAMINS A AND D OINT TP SCH ×2 (08:36→21:14)
[2021-09-06] MEDS: NORMAL SALINE FLUSH 10 ML DISP.SYRIN IV SCH ×2 (09:06→21:06)
[2021-09-06] MEDS: VANCOMYCIN IV 1,000 MG in IV DEXTROSE 5% 250 ML IV SCH ×2 (09:06→23:47)
[2021-09-06 12:11] VITALS: BP 131/76
--- NOTE | 2021-09-06 14:20 | NUR ---
INTERDISCIPLINARY PLAN OF CARE CONFERENCE was held today. Pt's daughter Janis and father Arden participated in the meeting by speaker phone. Dr. Peralta and the Interdisciplinary Team reviewed the current plan of care in detail. RN reported on patient's medical condition and informed of continuing antibiotics for bone infection until September 26, 2021. Dietitian reported no changes with eating and there has been no significant weight change. See all disciplines IDT notes and physician's progress notes for additional details. Janis's and Herbert questions were addressed by the IDT team.
--- NOTE | 2021-09-06 15:17 | NUR ---
Cont to be on IV ATB for sacral osteomyelitis, no adverse reaction noted. IV site intact, no redness noted on site. Will cont to monitor.
[2021-09-06 18:18] VITALS: BP 134/81
[2021-09-06] MEDS: MINERAL OIL/PETROLAT OPHT OINT 3.5 GM TUBE EACHEYE SCH (21:06)
[2021-09-06] MEDS: ATORVASTATIN 20 MG TABLET GT SCH (21:08)
[2021-09-06] MEDS: THIAMINE HCL 100 MG TABLET GT SCH (21:13)
[2021-09-06] MEDS: ASCORBIC ACID 500 MG TABLET GT SCH (21:13)
[2021-09-06 22:00] VITALS: BP 134/71
--- NOTE | 2021-09-06 23:45 | NUR ---
On Vancomycin and Cefepime IV for sacral osteomyelitis, no adverse reactions noted. ELIZABETH Midline is intact and no signs of any complications on midline site, treatment done to sacral wound as ordered. Turned and repositioned for comfort.
[2021-09-07] VITALS: BP 130/78
[2021-09-07] MEDS: BLOOD SUGAR DIAGNOSTIC 1 EACH STRIP VI SCH ×4 (00:11→17:52)
[2021-09-07] MEDS: INSULIN REGULAR, HUMAN 300 UNIT/3 ML VIAL SQ PRN ×3 (00:24→17:53)
[2021-09-07] MEDS: LEVALBUTEROL HCL 1.25 MG/0.5 ML NEB NEB SCH ×4 (01:05→19:41)
[2021-09-07] MEDS: IPRATROPIUM BROMIDE 0.5 MG/2.5 ML NEBU NEB SCH ×4 (01:05→19:41)
[2021-09-07] MEDS: HYDROCODONE/APAP 5-325MG TABLET GT PRN ×2 (04:00→17:34)
[2021-09-07] MEDS: LORAZEPAM 1 MG TABLET GT PRN (04:08)
[2021-09-07] MEDS: CEFEPIME HCL 1 G in IV DEXTROSE 5% 50 ML IV SCH ×3 (05:00→20:33)
[2021-09-07] MEDS: OMEPRAZOLE 20 MG CAPSULE.DR GT SCH (05:46)
[2021-09-07] MEDS: NUTRISOURCE FIBER 4 GM PACKET GT SCH ×2 (05:46→17:08)
[2021-09-07] MEDS: ARGININE/GLUTAMINE/CALCIUM BMB 1 EACH POWD.PACK GT SCH ×2 (05:46→17:08)
[2021-09-07 06:00] VITALS: BP 148/80
[2021-09-07] MEDS: HYDROGEN PEROXIDE 3% 118 ML BOTTLE TP SCH ×2 (08:10→21:12)
[2021-09-07] MEDS: [UNRECOGNIZED DRUG - OTHER] GT SCH ×2 (08:40→20:47)
[2021-09-07] MEDS: ACETAMINOPHEN GT SCH ×2 (08:40→20:47)
[2021-09-07] MEDS: levETIRAcetam 500 MG/5 ML LIQUID UDC GT SCH ×2 (08:41→20:50)
[2021-09-07] MEDS: TERAZOSIN 1 MG CAPSULE GT SCH (08:41)
[2021-09-07] MEDS: BACLOFEN 10 MG TABLET GT SCH ×2 (08:42→20:52)
[2021-09-07] MEDS: METOPROLOL TARTRATE 25 MG TABLET GT SCH ×2 (08:42→20:52)
[2021-09-07] MEDS: PHENOBARBITAL 97.2 MG TABLET GT SCH ×2 (08:42→20:54)
[2021-09-07] MEDS: AMANTADINE HCL 50 MG/5 ML GT SCH ×2 (08:42→20:53)
[2021-09-07] MEDS: HEPARIN SODIUM,PORCINE 5,000 UNITS/ML VIAL SQ SCH ×2 (08:51→20:56)
[2021-09-07] MEDS: TRIAMCINOLONE ACET 0.1% CREAM 15 GM TUBE TP SCH ×8 (08:54→20:55)
[2021-09-07] MEDS: SODIUM HYPOCHLORITE 0.125% (QUARTER STRENGTH) 473 ML BOTTLE TP SCH ×2 (08:54→20:55)
[2021-09-07] MEDS: NYSTATIN CREAM 30 GM TUBE TP SCH ×10 (08:54→20:55)
[2021-09-07] MEDS: COD LIVER OIL/ZINC OXIDE OINT 113 GM TUBE TP SCH ×2 (08:54→20:55)
[2021-09-07] MEDS: VITAMINS A AND D OINT TP SCH ×2 (08:55→20:56)
[2021-09-07] MEDS: NEOMY/BACITRA/POLYMYXIN B OINT UD PACKET TP SCH ×2 (08:55→20:56)
[2021-09-07] MEDS: NORMAL SALINE FLUSH 10 ML DISP.SYRIN IV SCH ×2 (09:00→20:33)
[2021-09-07 12:18] VITALS: BP 116/74
[2021-09-07] MEDS: VANCOMYCIN IV 1,000 MG in IV DEXTROSE 5% 250 ML IV SCH (13:51)
[2021-09-07] MEDS: GLUCERNA 1.2 1000ML LIQUID GT PRN (17:08)
[2021-09-07 18:17] VITALS: BP 142/82
[2021-09-07] MEDS: MINERAL OIL/PETROLAT OPHT OINT 3.5 GM TUBE EACHEYE SCH (20:50)
[2021-09-07] MEDS: ATORVASTATIN 20 MG TABLET GT SCH (20:52)
[2021-09-07] MEDS: THIAMINE HCL 100 MG TABLET GT SCH (20:54)
[2021-09-07] MEDS: ASCORBIC ACID 500 MG TABLET GT SCH (20:54)
[2021-09-08] MEDS: IPRATROPIUM BROMIDE 0.5 MG/2.5 ML NEBU NEB SCH ×4 (00:50→19:35)
[2021-09-08] MEDS: LEVALBUTEROL HCL 1.25 MG/0.5 ML NEB NEB SCH ×4 (00:50→19:35)
[2021-09-08] MEDS: BLOOD SUGAR DIAGNOSTIC 1 EACH STRIP VI SCH ×4 (00:59→18:02)
[2021-09-08] MEDS: INSULIN REGULAR, HUMAN 300 UNIT/3 ML VIAL SQ PRN ×4 (01:03→18:03)
[2021-09-08] MEDS: VANCOMYCIN IV 1,000 MG in IV DEXTROSE 5% 250 ML IV SCH ×2 (02:15→17:54)
[2021-09-08] MEDS: CEFEPIME HCL 1 G in IV DEXTROSE 5% 50 ML IV SCH ×3 (04:52→20:33)
[2021-09-08] MEDS: NUTRISOURCE FIBER 4 GM PACKET GT SCH ×2 (06:46→18:02)
[2021-09-08] MEDS: OMEPRAZOLE 20 MG CAPSULE.DR GT SCH (06:46)
[2021-09-08] MEDS: ARGININE/GLUTAMINE/CALCIUM BMB 1 EACH POWD.PACK GT SCH ×2 (06:46→18:02)
[2021-09-08] MEDS: ACETAMINOPHEN GT SCH ×2 (08:30→21:27)
[2021-09-08] MEDS: [UNRECOGNIZED DRUG - OTHER] GT SCH ×2 (08:30→21:27)
[2021-09-08] MEDS: HYDROGEN PEROXIDE 3% 118 ML BOTTLE TP SCH ×2 (09:00→20:47)
[2021-09-08] MEDS: METOPROLOL TARTRATE 25 MG TABLET GT SCH ×2 (09:54→21:31)
[2021-09-08] MEDS: HEPARIN SODIUM,PORCINE 5,000 UNITS/ML VIAL SQ SCH ×2 (09:54→21:47)
[2021-09-08] MEDS: levETIRAcetam 500 MG/5 ML LIQUID UDC GT SCH ×2 (09:54→21:27)
[2021-09-08] MEDS: TERAZOSIN 1 MG CAPSULE GT SCH (09:54)
[2021-09-08] MEDS: BACLOFEN 10 MG TABLET GT SCH ×2 (09:54→21:27)
[2021-09-08] MEDS: AMANTADINE HCL 50 MG/5 ML GT SCH ×2 (09:54→21:32)
[2021-09-08] MEDS: PHENOBARBITAL 97.2 MG TABLET GT SCH ×2 (09:54→21:31)
[2021-09-08] MEDS: NORMAL SALINE FLUSH 10 ML DISP.SYRIN IV SCH ×2 (09:54→20:33)
[2021-09-08] MEDS: NYSTATIN CREAM 30 GM TUBE TP SCH ×10 (09:55→21:49)
[2021-09-08] MEDS: COD LIVER OIL/ZINC OXIDE OINT 113 GM TUBE TP SCH ×2 (09:55→21:48)
[2021-09-08] MEDS: SODIUM HYPOCHLORITE 0.125% (QUARTER STRENGTH) 473 ML BOTTLE TP SCH ×2 (09:55→21:48)
[2021-09-08] MEDS: NEOMY/BACITRA/POLYMYXIN B OINT UD PACKET TP SCH ×2 (09:55→21:49)
[2021-09-08] MEDS: TRIAMCINOLONE ACET 0.1% CREAM 15 GM TUBE TP SCH ×8 (09:55→21:48)
[2021-09-08] MEDS: VITAMINS A AND D OINT TP SCH ×2 (09:56→21:49)
[2021-09-08] MEDS: GLUCERNA 1.2 1000ML LIQUID GT PRN (11:05)
[2021-09-08] MEDS: HYDROCODONE/APAP 5-325MG TABLET GT PRN (18:15)
[2021-09-08] MEDS: ATORVASTATIN 20 MG TABLET GT SCH (21:27)
[2021-09-08] MEDS: MINERAL OIL/PETROLAT OPHT OINT 3.5 GM TUBE EACHEYE SCH (21:27)
[2021-09-08] MEDS: THIAMINE HCL 100 MG TABLET GT SCH (21:32)
[2021-09-08] MEDS: ASCORBIC ACID 500 MG TABLET GT SCH (21:32)
[2021-09-09] MEDS: BLOOD SUGAR DIAGNOSTIC 1 EACH STRIP VI SCH ×4 (00:24→17:33)
[2021-09-09] MEDS: INSULIN REGULAR, HUMAN 300 UNIT/3 ML VIAL SQ PRN ×4 (00:27→17:34)
[2021-09-09 00:43] VITALS: BP 141/83
[2021-09-09] MEDS: GLUCERNA 1.2 1000ML LIQUID GT PRN ×2 (00:45→17:20)
[2021-09-09] MEDS: LEVALBUTEROL HCL 1.25 MG/0.5 ML NEB NEB SCH ×4 (01:24→19:01)
[2021-09-09] MEDS: IPRATROPIUM BROMIDE 0.5 MG/2.5 ML NEBU NEB SCH ×4 (01:24→19:01)
[2021-09-09] MEDS: NUTRISOURCE FIBER 4 GM PACKET GT SCH ×2 (05:07→17:33)
[2021-09-09] MEDS: ARGININE/GLUTAMINE/CALCIUM BMB 1 EACH POWD.PACK GT SCH ×2 (05:07→17:33)
[2021-09-09] MEDS: OMEPRAZOLE 20 MG CAPSULE.DR GT SCH (05:07)
[2021-09-09 05:09] VITALS: BP 149/80
[2021-09-09] MEDS: CEFEPIME HCL 1 G in IV DEXTROSE 5% 50 ML IV SCH ×3 (05:38→20:30)
[2021-09-09 05:44] LABS: CARBON DIOXIDE 32 mmol/L (21-32); CHLORIDE 94 mmol/L (98-107); CREATININE 0.6 mg/dL (0.6-1.3); GLUCOSE 140 mg/dL (74-106); POTASSIUM 4.4 mmol/L (3.5-5.1); UREA NITROGEN, BLOOD 24 mg/dL (7-18); VANCOMYCIN,TROUGH 17.8 ug/mL (12.0-20.0)
[2021-09-09] MEDS: VANCOMYCIN IV 1,000 MG in IV DEXTROSE 5% 250 ML IV SCH ×2 (06:56→21:09)
--- NOTE | 2021-09-09 07:00 | NUR ---
vancomycin 1gm ivpb was given at 07.00am .vancomycin trough =17.8 no A/R NOTED.
[2021-09-09] MEDS: NORMAL SALINE FLUSH 10 ML DISP.SYRIN IV SCH ×2 (08:03→21:00)
[2021-09-09] MEDS: HYDROGEN PEROXIDE 3% 118 ML BOTTLE TP SCH ×2 (09:00→21:40)
[2021-09-09] MEDS: levETIRAcetam 500 MG/5 ML LIQUID UDC GT SCH ×2 (09:08→21:51)
[2021-09-09] MEDS: [UNRECOGNIZED DRUG - OTHER] GT SCH ×2 (09:08→20:30)
[2021-09-09] MEDS: ACETAMINOPHEN GT SCH ×2 (09:08→20:30)
[2021-09-09] MEDS: TERAZOSIN 1 MG CAPSULE GT SCH (09:08)
[2021-09-09] MEDS: METOPROLOL TARTRATE 25 MG TABLET GT SCH ×2 (09:09→21:52)
[2021-09-09] MEDS: PHENOBARBITAL 97.2 MG TABLET GT SCH ×2 (09:09→21:52)
[2021-09-09] MEDS: BACLOFEN 10 MG TABLET GT SCH ×2 (09:09→21:51)
[2021-09-09] MEDS: AMANTADINE HCL 50 MG/5 ML GT SCH ×2 (09:10→21:52)
[2021-09-09] MEDS: SODIUM HYPOCHLORITE 0.125% (QUARTER STRENGTH) 473 ML BOTTLE TP SCH ×2 (09:11→21:53)
[2021-09-09] MEDS: HEPARIN SODIUM,PORCINE 5,000 UNITS/ML VIAL SQ SCH ×2 (09:11→22:00)
[2021-09-09] MEDS: COD LIVER OIL/ZINC OXIDE OINT 113 GM TUBE TP SCH ×2 (09:12→21:53)
[2021-09-09] MEDS: NYSTATIN CREAM 30 GM TUBE TP SCH ×10 (09:12→21:53)
[2021-09-09] MEDS: TRIAMCINOLONE ACET 0.1% CREAM 15 GM TUBE TP SCH ×8 (09:12→21:53)
[2021-09-09] MEDS: VITAMINS A AND D OINT TP SCH ×2 (09:13→21:53)
[2021-09-09] MEDS: NEOMY/BACITRA/POLYMYXIN B OINT UD PACKET TP SCH ×2 (09:13→21:53)
[2021-09-09] MEDS: LORAZEPAM 1 MG TABLET GT PRN ×2 (09:30→15:00)
[2021-09-09] MEDS: HYDROCODONE/APAP 5-325MG TABLET GT PRN ×2 (11:50→18:01)
[2021-09-09] MEDS: ONDANSETRON HCL 4 MG TABLET GT PRN (12:24)
[2021-09-09] MEDS: MINERAL OIL/PETROLAT OPHT OINT 3.5 GM TUBE EACHEYE SCH (21:51)
[2021-09-09] MEDS: ATORVASTATIN 20 MG TABLET GT SCH (21:52)
[2021-09-09] MEDS: ASCORBIC ACID 500 MG TABLET GT SCH (21:52)
[2021-09-09] MEDS: THIAMINE HCL 100 MG TABLET GT SCH (21:52)
[2021-09-10] VITALS: BP 119/89
[2021-09-10] MEDS: IPRATROPIUM BROMIDE 0.5 MG/2.5 ML NEBU NEB SCH ×4 (00:50→18:58)
[2021-09-10] MEDS: LEVALBUTEROL HCL 1.25 MG/0.5 ML NEB NEB SCH ×4 (00:50→18:59)
[2021-09-10] MEDS: INSULIN REGULAR, HUMAN 300 UNIT/3 ML VIAL SQ PRN ×2 (01:16→12:05)
[2021-09-10] MEDS: CEFEPIME HCL 1 G in IV DEXTROSE 5% 50 ML IV SCH ×3 (04:48→21:00)
--- NOTE | 2021-09-10 05:00 | NUR ---
On Vancomycin and Cefepime IV for sacral osteomyelitis, no adverse reactions noted. ELIZABETH Midline is intact .treatment done to sacral wound as ordered. Turned and repositioned for comfort.
[2021-09-10] MEDS: NUTRISOURCE FIBER 4 GM PACKET GT SCH ×2 (05:18→17:30)
[2021-09-10] MEDS: ARGININE/GLUTAMINE/CALCIUM BMB 1 EACH POWD.PACK GT SCH ×2 (05:18→17:30)
[2021-09-10] MEDS: OMEPRAZOLE 20 MG CAPSULE.DR GT SCH (05:18)
[2021-09-10] MEDS: BLOOD SUGAR DIAGNOSTIC 1 EACH STRIP VI SCH ×5 (06:07→17:58)
[2021-09-10 06:28] VITALS: BP 136/80
[2021-09-10] MEDS: TERAZOSIN 1 MG CAPSULE GT SCH (08:46)
[2021-09-10] MEDS: [UNRECOGNIZED DRUG - OTHER] GT SCH ×2 (08:46→21:00)
[2021-09-10] MEDS: levETIRAcetam 500 MG/5 ML LIQUID UDC GT SCH ×2 (08:46→21:00)
[2021-09-10] MEDS: ACETAMINOPHEN GT SCH ×2 (08:46→21:00)
[2021-09-10] MEDS: BACLOFEN 10 MG TABLET GT SCH ×2 (08:47→21:00)
[2021-09-10] MEDS: METOPROLOL TARTRATE 25 MG TABLET GT SCH ×2 (08:48→21:00)
[2021-09-10] MEDS: PHENOBARBITAL 97.2 MG TABLET GT SCH ×2 (08:49→21:00)
[2021-09-10] MEDS: AMANTADINE HCL 50 MG/5 ML GT SCH ×2 (08:49→21:00)
[2021-09-10] MEDS: SODIUM HYPOCHLORITE 0.125% (QUARTER STRENGTH) 473 ML BOTTLE TP SCH (08:51)
[2021-09-10] MEDS: COD LIVER OIL/ZINC OXIDE OINT 113 GM TUBE TP SCH ×2 (08:51→21:00)
[2021-09-10] MEDS: HEPARIN SODIUM,PORCINE 5,000 UNITS/ML VIAL SQ SCH ×2 (08:51→20:59)
[2021-09-10] MEDS: TRIAMCINOLONE ACET 0.1% CREAM 15 GM TUBE TP SCH ×8 (08:51→21:01)
[2021-09-10] MEDS: NYSTATIN CREAM 30 GM TUBE TP SCH ×10 (08:52→21:01)
[2021-09-10] MEDS: VITAMINS A AND D OINT TP SCH ×2 (08:52→21:01)
[2021-09-10] MEDS: NEOMY/BACITRA/POLYMYXIN B OINT UD PACKET TP SCH (08:52)
[2021-09-10] MEDS: NORMAL SALINE FLUSH 10 ML DISP.SYRIN IV SCH ×2 (09:00→21:01)
[2021-09-10] MEDS: HYDROGEN PEROXIDE 3% 118 ML BOTTLE TP SCH ×2 (09:27→20:14)
[2021-09-10] MEDS: VANCOMYCIN IV 1,000 MG in IV DEXTROSE 5% 250 ML IV SCH (11:12)
[2021-09-10 12:00] VITALS: BP 140/79
[2021-09-10 18:30] VITALS: BP 138/67
[2021-09-10] MEDS: LORAZEPAM 1 MG TABLET GT PRN (18:37)
[2021-09-10] MEDS: ATORVASTATIN 20 MG TABLET GT SCH (21:00)
[2021-09-10] MEDS: THIAMINE HCL 100 MG TABLET GT SCH (21:00)
[2021-09-10] MEDS: ASCORBIC ACID 500 MG TABLET GT SCH (21:00)
[2021-09-10] MEDS: MINERAL OIL/PETROLAT OPHT OINT 3.5 GM TUBE EACHEYE SCH (21:00)
[2021-09-10] MEDS: GLUCERNA 1.2 1000ML LIQUID GT PRN (21:03)
[2021-09-11] VITALS: BP 127/76
[2021-09-11] MEDS: BLOOD SUGAR DIAGNOSTIC 1 EACH STRIP VI SCH ×4 (00:36→18:16)
[2021-09-11] MEDS: INSULIN REGULAR, HUMAN 300 UNIT/3 ML VIAL SQ PRN ×4 (00:44→18:17)
[2021-09-11] MEDS: IPRATROPIUM BROMIDE 0.5 MG/2.5 ML NEBU NEB SCH ×4 (00:49→19:02)
[2021-09-11] MEDS: LEVALBUTEROL HCL 1.25 MG/0.5 ML NEB NEB SCH ×4 (00:49→19:02)
[2021-09-11] MEDS: VANCOMYCIN IV 1,000 MG in IV DEXTROSE 5% 250 ML IV SCH ×2 (01:03→15:04)
[2021-09-11] MEDS: LORAZEPAM 1 MG TABLET GT PRN (02:30)
[2021-09-11] MEDS: HYDROCODONE/APAP 5-325MG TABLET GT PRN (03:28)
[2021-09-11] MEDS: IPRATROPIUM BROMIDE 0.5 MG/2.5 ML NEBU NEB PRN (03:38)
[2021-09-11] MEDS: LEVALBUTEROL HCL 1.25 MG/0.5 ML NEB NEB PRN (03:39)
[2021-09-11] MEDS: CEFEPIME HCL 1 G in IV DEXTROSE 5% 50 ML IV SCH ×3 (05:00→21:00)
[2021-09-11] MEDS: OMEPRAZOLE 20 MG CAPSULE.DR GT SCH (05:01)
[2021-09-11] MEDS: ARGININE/GLUTAMINE/CALCIUM BMB 1 EACH POWD.PACK GT SCH ×2 (05:01→18:16)
[2021-09-11] MEDS: NUTRISOURCE FIBER 4 GM PACKET GT SCH ×2 (05:01→18:16)
[2021-09-11 06:07] VITALS: BP 135/89
[2021-09-11] MEDS: NORMAL SALINE FLUSH 10 ML DISP.SYRIN IV SCH ×2 (09:00→21:00)
[2021-09-11] MEDS: ACETAMINOPHEN GT SCH ×2 (09:04→20:54)
[2021-09-11] MEDS: [UNRECOGNIZED DRUG - OTHER] GT SCH ×2 (09:04→20:54)
[2021-09-11] MEDS: TERAZOSIN 1 MG CAPSULE GT SCH (09:06)
[2021-09-11] MEDS: BACLOFEN 10 MG TABLET GT SCH ×2 (09:06→20:55)
[2021-09-11] MEDS: levETIRAcetam 500 MG/5 ML LIQUID UDC GT SCH ×2 (09:06→20:55)
[2021-09-11] MEDS: COD LIVER OIL/ZINC OXIDE OINT 113 GM TUBE TP SCH ×2 (09:15→20:55)
[2021-09-11] MEDS: AMANTADINE HCL 50 MG/5 ML GT SCH ×2 (09:15→20:55)
[2021-09-11] MEDS: PHENOBARBITAL 97.2 MG TABLET GT SCH ×2 (09:15→20:55)
[2021-09-11] MEDS: METOPROLOL TARTRATE 25 MG TABLET GT SCH ×2 (09:15→20:55)
[2021-09-11] MEDS: TRIAMCINOLONE ACET 0.1% CREAM 15 GM TUBE TP SCH ×8 (09:16→21:00)
[2021-09-11] MEDS: NYSTATIN CREAM 30 GM TUBE TP SCH ×10 (09:16→21:00)
[2021-09-11] MEDS: VITAMINS A AND D OINT TP SCH ×2 (09:16→21:00)
[2021-09-11] MEDS: HEPARIN SODIUM,PORCINE 5,000 UNITS/ML VIAL SQ SCH ×2 (09:18→21:00)
[2021-09-11] MEDS: HYDROGEN PEROXIDE 3% 118 ML BOTTLE TP SCH ×2 (09:48→19:02)
[2021-09-11 12:00] VITALS: BP 137/67
[2021-09-11] MEDS: GLUCERNA 1.2 1000ML LIQUID GT PRN (18:16)
[2021-09-11 18:54] VITALS: BP 129/79
[2021-09-11] MEDS: MINERAL OIL/PETROLAT OPHT OINT 3.5 GM TUBE EACHEYE SCH (20:54)
[2021-09-11] MEDS: THIAMINE HCL 100 MG TABLET GT SCH (20:55)
[2021-09-11] MEDS: ASCORBIC ACID 500 MG TABLET GT SCH (20:55)
[2021-09-11] MEDS: ATORVASTATIN 20 MG TABLET GT SCH (20:55)
--- NOTE | 2021-09-11 23:19 | NUR ---
Still on Vancomycin and Cefepime IV for sacral osteomyelitis, no adverse reactions noted. Afebrile, ELIZABETH Midline is intact and no signs of any complications on midline site, treatment done to sacral wound as ordered. Turned and repositioned patient for comfort.
[2021-09-12] VITALS: BP 135/87
[2021-09-12] MEDS: LEVALBUTEROL HCL 1.25 MG/0.5 ML NEB NEB SCH ×4 (00:41→19:31)
[2021-09-12] MEDS: IPRATROPIUM BROMIDE 0.5 MG/2.5 ML NEBU NEB SCH ×4 (00:41→19:31)
[2021-09-12] MEDS: BLOOD SUGAR DIAGNOSTIC 1 EACH STRIP VI SCH ×4 (00:48→17:44)
[2021-09-12] MEDS: LORAZEPAM 1 MG TABLET GT PRN (04:30)
[2021-09-12 05:00] VITALS: BP 142/82
[2021-09-12] MEDS: CEFEPIME HCL 1 G in IV DEXTROSE 5% 50 ML IV SCH ×3 (05:00→21:00)
[2021-09-12] MEDS: VANCOMYCIN IV 1,000 MG in IV DEXTROSE 5% 250 ML IV SCH ×2 (05:00→18:06)
[2021-09-12] MEDS: HYDROCODONE/APAP 5-325MG TABLET GT PRN ×2 (05:30→17:46)
[2021-09-12] MEDS: ARGININE/GLUTAMINE/CALCIUM BMB 1 EACH POWD.PACK GT SCH ×2 (06:08→17:44)
[2021-09-12] MEDS: NUTRISOURCE FIBER 4 GM PACKET GT SCH ×2 (06:09→17:44)
[2021-09-12] MEDS: OMEPRAZOLE 20 MG CAPSULE.DR GT SCH (06:09)
[2021-09-12] MEDS: HYDROGEN PEROXIDE 3% 118 ML BOTTLE TP SCH ×2 (07:48→21:00)
[2021-09-12] MEDS: NORMAL SALINE FLUSH 10 ML DISP.SYRIN IV SCH ×2 (08:09→21:00)
[2021-09-12] MEDS: [UNRECOGNIZED DRUG - OTHER] GT SCH ×2 (08:30→20:56)
[2021-09-12] MEDS: ACETAMINOPHEN GT SCH ×2 (08:30→20:56)
[2021-09-12] MEDS: TRIAMCINOLONE ACET 0.1% CREAM 15 GM TUBE TP SCH ×8 (09:00→20:57)
[2021-09-12] MEDS: AMANTADINE HCL 50 MG/5 ML GT SCH ×2 (09:00→20:56)
[2021-09-12] MEDS: BACLOFEN 10 MG TABLET GT SCH ×2 (09:00→20:56)
[2021-09-12] MEDS: COD LIVER OIL/ZINC OXIDE OINT 113 GM TUBE TP SCH ×2 (09:00→20:57)
[2021-09-12] MEDS: PHENOBARBITAL 97.2 MG TABLET GT SCH ×2 (09:00→20:56)
[2021-09-12] MEDS: levETIRAcetam 500 MG/5 ML LIQUID UDC GT SCH ×2 (09:00→20:56)
[2021-09-12] MEDS: NYSTATIN CREAM 30 GM TUBE TP SCH ×10 (09:00→20:58)
[2021-09-12] MEDS: METOPROLOL TARTRATE 25 MG TABLET GT SCH ×2 (09:00→20:56)
[2021-09-12] MEDS: HEPARIN SODIUM,PORCINE 5,000 UNITS/ML VIAL SQ SCH ×2 (09:00→21:00)
[2021-09-12] MEDS: VITAMINS A AND D OINT TP SCH ×2 (09:00→20:58)
[2021-09-12] MEDS: TERAZOSIN 1 MG CAPSULE GT SCH (09:00)
[2021-09-12 12:00] VITALS: BP 140/70
[2021-09-12] MEDS: GLUCERNA 1.2 1000ML LIQUID GT PRN (14:24)
[2021-09-12] MEDS: INSULIN REGULAR, HUMAN 300 UNIT/3 ML VIAL SQ PRN ×2 (17:46)
[2021-09-12 18:59] VITALS: BP 145/75
[2021-09-12] MEDS: ATORVASTATIN 20 MG TABLET GT SCH (20:56)
[2021-09-12] MEDS: MINERAL OIL/PETROLAT OPHT OINT 3.5 GM TUBE EACHEYE SCH (20:56)
[2021-09-12] MEDS: ASCORBIC ACID 500 MG TABLET GT SCH (20:57)
[2021-09-12] MEDS: THIAMINE HCL 100 MG TABLET GT SCH (20:57)
[2021-09-13] VITALS: BP 135/65
[2021-09-13] MEDS: BLOOD SUGAR DIAGNOSTIC 1 EACH STRIP VI SCH ×5 (00:45→23:21)
[2021-09-13] MEDS: IPRATROPIUM BROMIDE 0.5 MG/2.5 ML NEBU NEB SCH ×4 (01:01→19:25)
[2021-09-13] MEDS: LEVALBUTEROL HCL 1.25 MG/0.5 ML NEB NEB SCH ×4 (01:01→19:25)
[2021-09-13] MEDS: CEFEPIME HCL 1 G in IV DEXTROSE 5% 50 ML IV SCH ×3 (05:08→21:08)
[2021-09-13] MEDS: ARGININE/GLUTAMINE/CALCIUM BMB 1 EACH POWD.PACK GT SCH ×2 (05:58→18:13)
[2021-09-13] MEDS: OMEPRAZOLE 20 MG CAPSULE.DR GT SCH (05:58)
[2021-09-13] MEDS: NUTRISOURCE FIBER 4 GM PACKET GT SCH ×2 (05:58→18:13)
[2021-09-13 06:00] VITALS: BP 142/70
[2021-09-13] MEDS: GLUCERNA 1.2 1000ML LIQUID GT PRN (06:59)
[2021-09-13 07:49] VITALS: BP 132/70
[2021-09-13] MEDS: HYDROGEN PEROXIDE 3% 118 ML BOTTLE TP SCH ×2 (08:05→21:14)
[2021-09-13] MEDS: METOPROLOL TARTRATE 25 MG TABLET GT SCH ×2 (09:00→20:05)
[2021-09-13] MEDS: VANCOMYCIN IV 1,000 MG in IV DEXTROSE 5% 250 ML IV SCH ×2 (09:00→23:10)
[2021-09-13] MEDS: HEPARIN SODIUM,PORCINE 5,000 UNITS/ML VIAL SQ SCH ×2 (09:00→20:31)
[2021-09-13] MEDS: NORMAL SALINE FLUSH 10 ML DISP.SYRIN IV SCH ×2 (09:00→21:08)
[2021-09-13] MEDS: ACETAMINOPHEN GT SCH ×2 (09:18→20:03)
[2021-09-13] MEDS: AMANTADINE HCL 50 MG/5 ML GT SCH ×2 (09:18→20:10)
[2021-09-13] MEDS: BACLOFEN 10 MG TABLET GT SCH ×2 (09:18→20:03)
[2021-09-13] MEDS: TERAZOSIN 1 MG CAPSULE GT SCH (09:18)
[2021-09-13] MEDS: [UNRECOGNIZED DRUG - OTHER] GT SCH ×2 (09:18→20:03)
[2021-09-13] MEDS: PHENOBARBITAL 97.2 MG TABLET GT SCH ×2 (09:18→20:07)
[2021-09-13] MEDS: levETIRAcetam 500 MG/5 ML LIQUID UDC GT SCH ×2 (09:18→20:03)
[2021-09-13] MEDS: COD LIVER OIL/ZINC OXIDE OINT 113 GM TUBE TP SCH ×2 (09:19→20:13)
[2021-09-13] MEDS: TRIAMCINOLONE ACET 0.1% CREAM 15 GM TUBE TP SCH ×8 (09:19→20:13)
[2021-09-13] MEDS: NYSTATIN CREAM 30 GM TUBE TP SCH ×10 (09:20→20:13)
[2021-09-13] MEDS: VITAMINS A AND D OINT TP SCH ×2 (09:20→20:14)
[2021-09-13 12:00] VITALS: BP 146/86
[2021-09-13] MEDS: INSULIN REGULAR, HUMAN 300 UNIT/3 ML VIAL SQ PRN ×3 (13:26→18:14)
[2021-09-13] MEDS: HYDROCODONE/APAP 5-325MG TABLET GT PRN (13:37)
--- NOTE | 2021-09-13 16:51 | NUR ---
Continue on Ivatb, for wound osteomilitis ,no adverse reaction noted,R upper arm midline intact,no s/s of infection noted.
[2021-09-13 18:30] VITALS: BP 150/75
[2021-09-13] MEDS: MINERAL OIL/PETROLAT OPHT OINT 3.5 GM TUBE EACHEYE SCH (20:03)
[2021-09-13] MEDS: ATORVASTATIN 20 MG TABLET GT SCH (20:04)
[2021-09-13] MEDS: THIAMINE HCL 100 MG TABLET GT SCH (20:11)
[2021-09-13] MEDS: ASCORBIC ACID 500 MG TABLET GT SCH (20:11)
[2021-09-13 23:26] VITALS: BP 148/76
[2021-09-14] MEDS: LEVALBUTEROL HCL 1.25 MG/0.5 ML NEB NEB SCH ×4 (01:21→18:59)
[2021-09-14] MEDS: IPRATROPIUM BROMIDE 0.5 MG/2.5 ML NEBU NEB SCH ×4 (01:21→18:59)
[2021-09-14] MEDS: GLUCERNA 1.2 1000ML LIQUID GT PRN ×2 (02:00→05:54)
[2021-09-14] MEDS: CEFEPIME HCL 1 G in IV DEXTROSE 5% 50 ML IV SCH ×3 (05:06→21:16)
[2021-09-14] MEDS: OMEPRAZOLE 20 MG CAPSULE.DR GT SCH (05:53)
[2021-09-14] MEDS: ARGININE/GLUTAMINE/CALCIUM BMB 1 EACH POWD.PACK GT SCH ×2 (05:53→18:23)
[2021-09-14] MEDS: BLOOD SUGAR DIAGNOSTIC 1 EACH STRIP VI SCH ×3 (05:53→18:24)
[2021-09-14] MEDS: NUTRISOURCE FIBER 4 GM PACKET GT SCH ×2 (05:53→18:23)
[2021-09-14 06:27] VITALS: BP 146/78
[2021-09-14] MEDS: HYDROGEN PEROXIDE 3% 118 ML BOTTLE TP SCH ×2 (07:35→20:12)
[2021-09-14 07:57] VITALS: BP 132/82
[2021-09-14] MEDS: TERAZOSIN 1 MG CAPSULE GT SCH (08:49)
[2021-09-14] MEDS: [UNRECOGNIZED DRUG - OTHER] GT SCH ×2 (08:49→21:18)
[2021-09-14] MEDS: levETIRAcetam 500 MG/5 ML LIQUID UDC GT SCH ×2 (08:49→21:19)
[2021-09-14] MEDS: ACETAMINOPHEN GT SCH ×2 (08:49→21:18)
[2021-09-14] MEDS: PHENOBARBITAL 97.2 MG TABLET GT SCH ×2 (08:50→21:21)
[2021-09-14] MEDS: AMANTADINE HCL 50 MG/5 ML GT SCH ×2 (08:50→21:21)
[2021-09-14] MEDS: BACLOFEN 10 MG TABLET GT SCH ×2 (08:50→21:19)
[2021-09-14] MEDS: METOPROLOL TARTRATE 25 MG TABLET GT SCH ×2 (08:50→21:20)
[2021-09-14] MEDS: TRIAMCINOLONE ACET 0.1% CREAM 15 GM TUBE TP SCH ×8 (08:51→21:25)
[2021-09-14] MEDS: NORMAL SALINE FLUSH 10 ML DISP.SYRIN IV SCH ×2 (08:51→21:15)
[2021-09-14] MEDS: COD LIVER OIL/ZINC OXIDE OINT 113 GM TUBE TP SCH ×2 (08:51→21:24)
[2021-09-14] MEDS: NYSTATIN CREAM 30 GM TUBE TP SCH ×10 (08:52→21:25)
[2021-09-14] MEDS: VITAMINS A AND D OINT TP SCH ×2 (08:53→21:25)
[2021-09-14] MEDS: HEPARIN SODIUM,PORCINE 5,000 UNITS/ML VIAL SQ SCH ×2 (08:54→21:23)
[2021-09-14] MEDS: INSULIN REGULAR, HUMAN 300 UNIT/3 ML VIAL SQ PRN ×2 (12:59→18:25)
[2021-09-14] MEDS: VANCOMYCIN IV 1,000 MG in IV DEXTROSE 5% 250 ML IV SCH (13:00)
--- NOTE | 2021-09-14 19:05 | NUR ---
Continue on vancomycin and cefepine IVATB,no adverse reaction noted,given for osteomilitis,midline intact,flushed as ordered.
[2021-09-14] MEDS: ATORVASTATIN 20 MG TABLET GT SCH (21:19)
[2021-09-14] MEDS: MINERAL OIL/PETROLAT OPHT OINT 3.5 GM TUBE EACHEYE SCH (21:19)
[2021-09-14] MEDS: ASCORBIC ACID 500 MG TABLET GT SCH (21:22)
[2021-09-14] MEDS: THIAMINE HCL 100 MG TABLET GT SCH (21:22)
--- NOTE | 2021-09-14 23:39 | NUR ---
Patient is afebrile, Still on Vancomycin and Cefepime IV for sacral osteomyelitis, no adverse reactions noted. ELIZABETH Midline is intact and no signs of any infiltration noted on midline site, treatment done to sacral wound as ordered. Patiño catheter is draining well to yellow urine, Turned and repositioned patient for comfort.
[2021-09-15] MEDS: BLOOD SUGAR DIAGNOSTIC 1 EACH STRIP VI SCH ×4 (00:57→18:00)
[2021-09-15] MEDS: INSULIN REGULAR, HUMAN 300 UNIT/3 ML VIAL SQ PRN ×4 (00:58→18:06)
[2021-09-15 00:59] VITALS: BP 132/74
[2021-09-15] MEDS: IPRATROPIUM BROMIDE 0.5 MG/2.5 ML NEBU NEB SCH ×4 (01:00→18:57)
[2021-09-15] MEDS: LEVALBUTEROL HCL 1.25 MG/0.5 ML NEB NEB SCH ×4 (01:01→18:57)
[2021-09-15] MEDS: VANCOMYCIN IV 1,000 MG in IV DEXTROSE 5% 250 ML IV SCH ×2 (03:14→17:36)
[2021-09-15] MEDS: CEFEPIME HCL 1 G in IV DEXTROSE 5% 50 ML IV SCH ×3 (05:41→21:16)
[2021-09-15] MEDS: ARGININE/GLUTAMINE/CALCIUM BMB 1 EACH POWD.PACK GT SCH ×2 (06:14→18:08)
[2021-09-15] MEDS: NUTRISOURCE FIBER 4 GM PACKET GT SCH ×2 (06:14→18:07)
[2021-09-15] MEDS: OMEPRAZOLE 20 MG CAPSULE.DR GT SCH (06:14)
[2021-09-15] MEDS: GLUCERNA 1.2 1000ML LIQUID GT PRN (06:17)
[2021-09-15 06:18] VITALS: BP 149/84
[2021-09-15] MEDS: HYDROGEN PEROXIDE 3% 118 ML BOTTLE TP SCH ×2 (07:49→20:29)
[2021-09-15] MEDS: NYSTATIN CREAM 30 GM TUBE TP SCH ×10 (09:00→21:20)
[2021-09-15] MEDS: VITAMINS A AND D OINT TP SCH ×2 (09:00→21:20)
[2021-09-15] MEDS: TRIAMCINOLONE ACET 0.1% CREAM 15 GM TUBE TP SCH ×8 (09:00→21:19)
[2021-09-15] MEDS: [UNRECOGNIZED DRUG - OTHER] GT SCH ×2 (09:06→21:12)
[2021-09-15] MEDS: ACETAMINOPHEN GT SCH ×2 (09:06→21:12)
[2021-09-15] MEDS: TERAZOSIN 1 MG CAPSULE GT SCH (09:07)
[2021-09-15] MEDS: levETIRAcetam 500 MG/5 ML LIQUID UDC GT SCH ×2 (09:08→21:13)
[2021-09-15] MEDS: BACLOFEN 10 MG TABLET GT SCH ×2 (09:09→21:13)
[2021-09-15] MEDS: METOPROLOL TARTRATE 25 MG TABLET GT SCH ×2 (09:10→21:14)
[2021-09-15] MEDS: PHENOBARBITAL 97.2 MG TABLET GT SCH ×2 (09:21→21:16)
[2021-09-15] MEDS: NORMAL SALINE FLUSH 10 ML DISP.SYRIN IV SCH ×2 (09:22→21:00)
[2021-09-15] MEDS: AMANTADINE HCL 50 MG/5 ML GT SCH ×2 (09:22→21:17)
[2021-09-15] MEDS: HEPARIN SODIUM,PORCINE 5,000 UNITS/ML VIAL SQ SCH ×2 (09:24→21:19)
[2021-09-15] MEDS: COD LIVER OIL/ZINC OXIDE OINT 113 GM TUBE TP SCH ×2 (09:24→21:19)
[2021-09-15] MEDS: LORAZEPAM 1 MG TABLET GT PRN (19:00)
[2021-09-15] MEDS: ONDANSETRON HCL 4 MG TABLET GT PRN (19:02)
[2021-09-15] MEDS: MINERAL OIL/PETROLAT OPHT OINT 3.5 GM TUBE EACHEYE SCH (21:12)
[2021-09-15] MEDS: ATORVASTATIN 20 MG TABLET GT SCH (21:13)
[2021-09-15] MEDS: THIAMINE HCL 100 MG TABLET GT SCH (21:17)
[2021-09-15] MEDS: ASCORBIC ACID 500 MG TABLET GT SCH (21:18)
[2021-09-16] VITALS: BP 143/89
[2021-09-16] MEDS: LEVALBUTEROL HCL 1.25 MG/0.5 ML NEB NEB SCH ×4 (01:12→19:18)
[2021-09-16] MEDS: IPRATROPIUM BROMIDE 0.5 MG/2.5 ML NEBU NEB SCH ×4 (01:12→19:18)
--- NOTE | 2021-09-16 02:12 | NUR ---
Still on Vancomycin and Cefepime IV for sacral wound osteomyelitis, no adverse reactions noted. afebrile, treatment done to sacral wound, turned and repositioned patient for comfort, will continue monitor.
[2021-09-16] MEDS: GLUCERNA 1.2 1000ML LIQUID GT PRN ×2 (02:15→21:07)
[2021-09-16] MEDS: CEFEPIME HCL 1 G in IV DEXTROSE 5% 50 ML IV SCH ×3 (05:05→21:17)
[2021-09-16] MEDS: ONDANSETRON HCL 4 MG TABLET GT PRN (05:30)
[2021-09-16] MEDS: BLOOD SUGAR DIAGNOSTIC 1 EACH STRIP VI SCH ×5 (06:21→23:16)
[2021-09-16] MEDS: OMEPRAZOLE 20 MG CAPSULE.DR GT SCH (06:21)
[2021-09-16] MEDS: ARGININE/GLUTAMINE/CALCIUM BMB 1 EACH POWD.PACK GT SCH ×2 (06:21→17:49)
[2021-09-16] MEDS: NUTRISOURCE FIBER 4 GM PACKET GT SCH ×2 (06:21→17:49)
[2021-09-16 06:23] VITALS: BP 148/74
[2021-09-16] MEDS: VANCOMYCIN IV 1,000 MG in IV DEXTROSE 5% 250 ML IV SCH ×2 (06:45→21:30)
[2021-09-16 08:01] VITALS: BP 133/73
[2021-09-16] MEDS: [UNRECOGNIZED DRUG - OTHER] GT SCH ×2 (09:01→20:20)
[2021-09-16] MEDS: ACETAMINOPHEN GT SCH ×2 (09:01→20:20)
[2021-09-16] MEDS: TERAZOSIN 1 MG CAPSULE GT SCH (09:01)
[2021-09-16] MEDS: levETIRAcetam 500 MG/5 ML LIQUID UDC GT SCH ×2 (09:02→20:21)
[2021-09-16] MEDS: COD LIVER OIL/ZINC OXIDE OINT 113 GM TUBE TP SCH ×2 (09:03→21:06)
[2021-09-16] MEDS: PHENOBARBITAL 97.2 MG TABLET GT SCH ×2 (09:03→20:21)
[2021-09-16] MEDS: METOPROLOL TARTRATE 25 MG TABLET GT SCH ×2 (09:03→20:21)
[2021-09-16] MEDS: AMANTADINE HCL 50 MG/5 ML GT SCH ×2 (09:03→20:21)
[2021-09-16] MEDS: BACLOFEN 10 MG TABLET GT SCH ×2 (09:03→20:21)
[2021-09-16] MEDS: NYSTATIN CREAM 30 GM TUBE TP SCH ×5 (09:04→09:05)
[2021-09-16] MEDS: TRIAMCINOLONE ACET 0.1% CREAM 15 GM TUBE TP SCH ×4 (09:04)
[2021-09-16] MEDS: HEPARIN SODIUM,PORCINE 5,000 UNITS/ML VIAL SQ SCH ×2 (09:04→21:08)
[2021-09-16] MEDS: VITAMINS A AND D OINT TP SCH ×2 (09:05→21:06)
[2021-09-16] MEDS: HYDROGEN PEROXIDE 3% 118 ML BOTTLE TP SCH ×2 (09:51→21:41)
[2021-09-16] MEDS: NORMAL SALINE FLUSH 10 ML DISP.SYRIN IV SCH ×2 (09:52→21:17)
[2021-09-16] MEDS: INSULIN REGULAR, HUMAN 300 UNIT/3 ML VIAL SQ PRN ×4 (11:55→23:19)
[2021-09-16 12:00] VITALS: BP 131/48
[2021-09-16 18:24] VITALS: BP 149/78
--- NOTE | 2021-09-16 19:30 | NUR ---
Renewed treatment to sacral wound X 30 more days.
[2021-09-16] MEDS: ASCORBIC ACID 500 MG TABLET GT SCH (20:21)
[2021-09-16] MEDS: MINERAL OIL/PETROLAT OPHT OINT 3.5 GM TUBE EACHEYE SCH (20:21)
[2021-09-16] MEDS: THIAMINE HCL 100 MG TABLET GT SCH (20:21)
[2021-09-16] MEDS: ATORVASTATIN 20 MG TABLET GT SCH (20:21)
[2021-09-16] MEDS ORDERED: NYSTATIN CREAM 30 GM TUBE TOP PRN (23:00)
[2021-09-16] MEDS ORDERED: NYSTATIN CREAM 30 GM TUBE TOP SCH (23:00)
[2021-09-16] MEDS ORDERED: SODIUM HYPOCHLORITE 0.125% (QUARTER STRENGTH) 473 ML BOTTLE TP PRN (23:00)
[2021-09-16] MEDS ORDERED: TRIAMCINOLONE ACET 0.1% CREAM 15 GM TUBE TOP PRN (23:00)
[2021-09-16] MEDS ORDERED: TRIAMCINOLONE ACET 0.1% CREAM 15 GM TUBE TOP SCH (23:00)
[2021-09-16] MEDS: SODIUM HYPOCHLORITE 0.125% (QUARTER STRENGTH) 473 ML BOTTLE TP SCH (23:10)
--- NOTE | 2021-09-16 23:20 | NUR ---
Afebrile, on Vancomycin and Cefepime IV for sacral wound osteomyelitis, no adverse reactions noted. Treatment done to sacral wound, turned and repositioned patient for comfort, will continue monitor.
[2021-09-17 00:18] VITALS: BP 144/80
[2021-09-17] MEDS: LEVALBUTEROL HCL 1.25 MG/0.5 ML NEB NEB SCH ×4 (01:14→19:09)
[2021-09-17] MEDS: IPRATROPIUM BROMIDE 0.5 MG/2.5 ML NEBU NEB SCH ×4 (01:14→19:09)
[2021-09-17] MEDS: HYDROCODONE/APAP 5-325MG TABLET GT PRN (04:12)
[2021-09-17] MEDS: CEFEPIME HCL 1 G in IV DEXTROSE 5% 50 ML IV SCH ×3 (04:52→21:01)
[2021-09-17] MEDS: OMEPRAZOLE 20 MG CAPSULE.DR GT SCH (05:37)
[2021-09-17] MEDS: NUTRISOURCE FIBER 4 GM PACKET GT SCH ×2 (05:37→17:41)
[2021-09-17] MEDS: BLOOD SUGAR DIAGNOSTIC 1 EACH STRIP VI SCH ×4 (05:37→23:08)
[2021-09-17] MEDS: ARGININE/GLUTAMINE/CALCIUM BMB 1 EACH POWD.PACK GT SCH ×2 (05:37→17:41)
[2021-09-17] MEDS: INSULIN REGULAR, HUMAN 300 UNIT/3 ML VIAL SQ PRN ×4 (05:38→23:13)
[2021-09-17 06:50] VITALS: BP 148/84
[2021-09-17 08:03] VITALS: BP 156/78
[2021-09-17] MEDS: HYDROGEN PEROXIDE 3% 118 ML BOTTLE TP SCH ×2 (08:05→20:07)
[2021-09-17] MEDS: [UNRECOGNIZED DRUG - OTHER] GT SCH ×2 (08:47→20:21)
[2021-09-17] MEDS: ACETAMINOPHEN GT SCH ×2 (08:47→20:21)
[2021-09-17] MEDS: TERAZOSIN 1 MG CAPSULE GT SCH (08:47)
[2021-09-17] MEDS: BACLOFEN 10 MG TABLET GT SCH ×2 (08:49→20:21)
[2021-09-17] MEDS: levETIRAcetam 500 MG/5 ML LIQUID UDC GT SCH ×2 (08:49→20:21)
[2021-09-17] MEDS: METOPROLOL TARTRATE 25 MG TABLET GT SCH ×2 (08:50→20:22)
[2021-09-17] MEDS: PHENOBARBITAL 97.2 MG TABLET GT SCH ×2 (08:51→20:22)
[2021-09-17] MEDS: AMANTADINE HCL 50 MG/5 ML GT SCH ×2 (08:51→20:22)
[2021-09-17] MEDS: HEPARIN SODIUM,PORCINE 5,000 UNITS/ML VIAL SQ SCH ×2 (08:52→20:57)
[2021-09-17] MEDS: COD LIVER OIL/ZINC OXIDE OINT 113 GM TUBE TP SCH ×2 (08:53→20:57)
[2021-09-17] MEDS: VITAMINS A AND D OINT TP SCH ×2 (08:53→20:57)
[2021-09-17] MEDS: SODIUM HYPOCHLORITE 0.125% (QUARTER STRENGTH) 473 ML BOTTLE TP SCH ×2 (08:53→20:57)
[2021-09-17] MEDS: NORMAL SALINE FLUSH 10 ML DISP.SYRIN IV SCH ×2 (09:00→21:01)
--- NOTE | 2021-09-17 10:15 | NUR ---
NEW ORDER FROM DR. HENDERSON FOR VANCOMYCIN TROUGH AND BMP ON SEP 18 WAS CARRIED OUT.
[2021-09-17] MEDS: VANCOMYCIN IV 1,000 MG in IV DEXTROSE 5% 250 ML IV SCH (11:29)
[2021-09-17 12:00] VITALS: BP 140/67
[2021-09-17 18:14] VITALS: BP 138/79
[2021-09-17] MEDS: ATORVASTATIN 20 MG TABLET GT SCH (20:21)
[2021-09-17] MEDS: MINERAL OIL/PETROLAT OPHT OINT 3.5 GM TUBE EACHEYE SCH (20:21)
[2021-09-17] MEDS: ASCORBIC ACID 500 MG TABLET GT SCH (20:22)
[2021-09-17] MEDS: THIAMINE HCL 100 MG TABLET GT SCH (20:22)
[2021-09-17 20:31] VITALS: BP 133/73
[2021-09-17] MEDS: TRIAMCINOLONE ACET 0.1% CREAM 15 GM TUBE TOP SCH (20:57)
[2021-09-17] MEDS: NYSTATIN CREAM 30 GM TUBE TOP SCH (20:57)
[2021-09-17] MEDS ORDERED: NYSTATIN CREAM 30 GM TUBE TOP PRN (21:00)
[2021-09-17] MEDS ORDERED: TRIAMCINOLONE ACET 0.1% CREAM 15 GM TUBE TOP PRN (21:00)
[2021-09-18 00:13] VITALS: BP 140/77
[2021-09-18] MEDS: IPRATROPIUM BROMIDE 0.5 MG/2.5 ML NEBU NEB SCH ×4 (01:00→19:56)
[2021-09-18] MEDS: LEVALBUTEROL HCL 1.25 MG/0.5 ML NEB NEB SCH ×4 (01:00→19:56)
[2021-09-18] MEDS: VANCOMYCIN IV 1,000 MG in IV DEXTROSE 5% 250 ML IV SCH ×2 (01:26→15:57)
[2021-09-18] MEDS: OMEPRAZOLE 20 MG CAPSULE.DR GT SCH (05:02)
[2021-09-18] MEDS: ARGININE/GLUTAMINE/CALCIUM BMB 1 EACH POWD.PACK GT SCH ×2 (05:02→17:18)
[2021-09-18] MEDS: NUTRISOURCE FIBER 4 GM PACKET GT SCH ×2 (05:02→17:18)
[2021-09-18] MEDS: BLOOD SUGAR DIAGNOSTIC 1 EACH STRIP VI SCH ×4 (05:02→23:08)
[2021-09-18] MEDS: INSULIN REGULAR, HUMAN 300 UNIT/3 ML VIAL SQ PRN ×4 (05:03→23:10)
[2021-09-18] MEDS: CEFEPIME HCL 1 G in IV DEXTROSE 5% 50 ML IV SCH ×3 (05:23→21:20)
[2021-09-18 06:07] VITALS: BP 148/84
[2021-09-18] MEDS: HYDROGEN PEROXIDE 3% 118 ML BOTTLE TP SCH ×2 (08:27→20:54)
[2021-09-18] MEDS: TERAZOSIN 1 MG CAPSULE GT SCH (08:32)
[2021-09-18] MEDS: ACETAMINOPHEN GT SCH ×2 (08:32→20:35)
[2021-09-18] MEDS: levETIRAcetam 500 MG/5 ML LIQUID UDC GT SCH ×2 (08:32→20:35)
[2021-09-18] MEDS: [UNRECOGNIZED DRUG - OTHER] GT SCH ×2 (08:32→20:35)
[2021-09-18] MEDS: BACLOFEN 10 MG TABLET GT SCH ×2 (08:33→20:35)
[2021-09-18] MEDS: METOPROLOL TARTRATE 25 MG TABLET GT SCH ×2 (08:33→20:35)
[2021-09-18] MEDS: AMANTADINE HCL 50 MG/5 ML GT SCH ×2 (08:33→20:35)
[2021-09-18] MEDS: PHENOBARBITAL 97.2 MG TABLET GT SCH ×2 (08:33→20:35)
[2021-09-18] MEDS: HEPARIN SODIUM,PORCINE 5,000 UNITS/ML VIAL SQ SCH ×2 (08:34→20:55)
[2021-09-18] MEDS: TRIAMCINOLONE ACET 0.1% CREAM 15 GM TUBE TOP SCH ×2 (08:35→20:55)
[2021-09-18] MEDS: NYSTATIN CREAM 30 GM TUBE TOP SCH ×2 (08:35→20:55)
[2021-09-18] MEDS: VITAMINS A AND D OINT TP SCH ×2 (08:36→20:55)
[2021-09-18] MEDS: SODIUM HYPOCHLORITE 0.125% (QUARTER STRENGTH) 473 ML BOTTLE TP SCH ×2 (08:36→20:55)
[2021-09-18] MEDS: COD LIVER OIL/ZINC OXIDE OINT 113 GM TUBE TP SCH ×2 (08:36→20:55)
[2021-09-18] MEDS: NORMAL SALINE FLUSH 10 ML DISP.SYRIN IV SCH ×2 (09:00→21:20)
[2021-09-18 12:00] VITALS: BP 142/75
[2021-09-18] MEDS: GLUCERNA 1.2 1000ML LIQUID GT PRN (12:25)
[2021-09-18 15:21] LABS: CARBON DIOXIDE 31 mmol/L (21-32); CHLORIDE 95 mmol/L (98-107); CREATININE 0.6 mg/dL (0.6-1.3); GLUCOSE 160 mg/dL (74-106); POTASSIUM 4.2 mmol/L (3.5-5.1); UREA NITROGEN, BLOOD 20 mg/dL (7-18); VANCOMYCIN,TROUGH 14.5 ug/mL (12.0-20.0)
--- NOTE | 2021-09-18 15:52 | NUR ---
PER JUAQUIN PETERSON PHARMACIST CONTINUE SAME DOSE VANCOMYCIN DUE TO VANCOMYCIN TROUGH IS 14.5(12-20)
--- NOTE | 2021-09-18 17:31 | NUR ---
RT. ARM LOCAL MIDLINE DRESSING WAS CHANGED ,AND NOTED INTACT AND PATENT WITH OUT S/S OF INFECTION OR DISLODGEMENT.
[2021-09-18 18:05] VITALS: BP 138/81
[2021-09-18] MEDS: ATORVASTATIN 20 MG TABLET GT SCH (20:35)
[2021-09-18] MEDS: ASCORBIC ACID 500 MG TABLET GT SCH (20:35)
[2021-09-18] MEDS: MINERAL OIL/PETROLAT OPHT OINT 3.5 GM TUBE EACHEYE SCH (20:35)
[2021-09-18] MEDS: THIAMINE HCL 100 MG TABLET GT SCH (20:35)
[2021-09-18] MEDS: HYDROCODONE/APAP 5-325MG TABLET GT PRN (23:09)
[2021-09-19 00:12] VITALS: BP 142/88
[2021-09-19] MEDS: LEVALBUTEROL HCL 1.25 MG/0.5 ML NEB NEB SCH ×4 (00:56→19:30)
[2021-09-19] MEDS: IPRATROPIUM BROMIDE 0.5 MG/2.5 ML NEBU NEB SCH ×4 (00:56→19:30)
[2021-09-19] MEDS: GLUCERNA 1.2 1000ML LIQUID GT PRN ×2 (02:23→23:28)
[2021-09-19] MEDS: BLOOD SUGAR DIAGNOSTIC 1 EACH STRIP VI SCH ×4 (05:11→23:27)
[2021-09-19] MEDS: OMEPRAZOLE 20 MG CAPSULE.DR GT SCH (05:11)
[2021-09-19] MEDS: NUTRISOURCE FIBER 4 GM PACKET GT SCH ×2 (05:11→17:10)
[2021-09-19] MEDS: ARGININE/GLUTAMINE/CALCIUM BMB 1 EACH POWD.PACK GT SCH ×2 (05:11→17:10)
[2021-09-19] MEDS: INSULIN REGULAR, HUMAN 300 UNIT/3 ML VIAL SQ PRN ×4 (05:12→23:28)
[2021-09-19] MEDS: LORAZEPAM 1 MG TABLET GT PRN (05:14)
[2021-09-19] MEDS: HYDROCODONE/APAP 5-325MG TABLET GT PRN (05:15)
[2021-09-19] MEDS: VANCOMYCIN IV 1,000 MG in IV DEXTROSE 5% 250 ML IV SCH ×2 (05:23→18:46)
[2021-09-19] MEDS: CEFEPIME HCL 1 G in IV DEXTROSE 5% 50 ML IV SCH ×3 (05:23→21:14)
[2021-09-19] MEDS: TERAZOSIN 1 MG CAPSULE GT SCH (08:26)
[2021-09-19] MEDS: ACETAMINOPHEN GT SCH ×2 (08:26→21:00)
[2021-09-19] MEDS: levETIRAcetam 500 MG/5 ML LIQUID UDC GT SCH ×2 (08:26→21:01)
[2021-09-19] MEDS: BACLOFEN 10 MG TABLET GT SCH ×2 (08:26→21:02)
[2021-09-19] MEDS: [UNRECOGNIZED DRUG - OTHER] GT SCH ×2 (08:26→21:00)
[2021-09-19] MEDS: PHENOBARBITAL 97.2 MG TABLET GT SCH ×2 (08:27→21:03)
[2021-09-19] MEDS: AMANTADINE HCL 50 MG/5 ML GT SCH ×2 (08:27→21:03)
[2021-09-19] MEDS: METOPROLOL TARTRATE 25 MG TABLET GT SCH ×2 (08:27→21:03)
[2021-09-19] MEDS: NYSTATIN CREAM 30 GM TUBE TOP SCH ×2 (08:28→21:06)
[2021-09-19] MEDS: COD LIVER OIL/ZINC OXIDE OINT 113 GM TUBE TP SCH ×2 (08:28→21:06)
[2021-09-19] MEDS: VITAMINS A AND D OINT TP SCH ×2 (08:28→21:06)
[2021-09-19] MEDS: SODIUM HYPOCHLORITE 0.125% (QUARTER STRENGTH) 473 ML BOTTLE TP SCH ×2 (08:28→21:06)
[2021-09-19] MEDS: TRIAMCINOLONE ACET 0.1% CREAM 15 GM TUBE TOP SCH ×2 (08:28→21:06)
[2021-09-19] MEDS: HEPARIN SODIUM,PORCINE 5,000 UNITS/ML VIAL SQ SCH ×2 (08:28→21:05)
[2021-09-19] MEDS: NORMAL SALINE FLUSH 10 ML DISP.SYRIN IV SCH ×2 (09:00→21:14)
[2021-09-19] MEDS: HYDROGEN PEROXIDE 3% 118 ML BOTTLE TP SCH ×2 (09:39→21:39)
[2021-09-19 12:00] VITALS: BP 149/74
[2021-09-19 18:05] VITALS: BP 147/82
[2021-09-19] MEDS: MINERAL OIL/PETROLAT OPHT OINT 3.5 GM TUBE EACHEYE SCH (21:01)
[2021-09-19] MEDS: ATORVASTATIN 20 MG TABLET GT SCH (21:02)
[2021-09-19] MEDS: THIAMINE HCL 100 MG TABLET GT SCH (21:04)
[2021-09-19] MEDS: ASCORBIC ACID 500 MG TABLET GT SCH (21:04)
[2021-09-20] MEDS: IPRATROPIUM BROMIDE 0.5 MG/2.5 ML NEBU NEB SCH ×4 (00:51→18:58)
[2021-09-20] MEDS: LEVALBUTEROL HCL 1.25 MG/0.5 ML NEB NEB SCH ×4 (00:51→18:58)
[2021-09-20 01:00] VITALS: BP 147/74
[2021-09-20] MEDS: BLOOD SUGAR DIAGNOSTIC 1 EACH STRIP VI SCH ×3 (05:04→17:07)
[2021-09-20] MEDS: OMEPRAZOLE 20 MG CAPSULE.DR GT SCH (05:04)
[2021-09-20] MEDS: NUTRISOURCE FIBER 4 GM PACKET GT SCH ×2 (05:04→17:10)
[2021-09-20] MEDS: ARGININE/GLUTAMINE/CALCIUM BMB 1 EACH POWD.PACK GT SCH ×2 (05:04→17:10)
[2021-09-20] MEDS: CEFEPIME HCL 1 G in IV DEXTROSE 5% 50 ML IV SCH ×3 (05:26→21:00)
[2021-09-20 06:03] VITALS: BP 139/78
--- NOTE | 2021-09-20 08:00 | NUR ---
DURING MORNING CARE CODING ASSISTANT NOTIFIED RE:GT OUT OF PLACE AND REPLACED ORDERED AND CH. NURSE NOTIFIED AND WILL BE CHECKED WITH KUB WITH GASTROGRAFIN PER PROTOCOL
[2021-09-20] MEDS ORDERED: DIATR MEGLU/DIATRIZOATE SODIUM 30 ML BOTTLE ONE (08:27)
[2021-09-20] MEDS: [UNRECOGNIZED DRUG - OTHER] GT SCH ×2 (08:30→20:30)
[2021-09-20] MEDS: ACETAMINOPHEN GT SCH ×2 (08:30→20:30)
[2021-09-20] MEDS: PHENOBARBITAL 97.2 MG TABLET GT SCH ×2 (09:00→21:07)
[2021-09-20] MEDS: TERAZOSIN 1 MG CAPSULE GT SCH (09:00)
[2021-09-20] MEDS: HEPARIN SODIUM,PORCINE 5,000 UNITS/ML VIAL SQ SCH ×2 (09:00→21:08)
[2021-09-20] MEDS: NYSTATIN CREAM 30 GM TUBE TOP SCH ×2 (09:00→21:09)
[2021-09-20] MEDS: TRIAMCINOLONE ACET 0.1% CREAM 15 GM TUBE TOP SCH ×2 (09:00→21:09)
[2021-09-20] MEDS: AMANTADINE HCL 50 MG/5 ML GT SCH ×2 (09:00→21:07)
[2021-09-20] MEDS: VANCOMYCIN IV 1,000 MG in IV DEXTROSE 5% 250 ML IV SCH ×2 (09:00→23:31)
[2021-09-20] MEDS: NORMAL SALINE FLUSH 10 ML DISP.SYRIN IV SCH ×2 (09:00→21:00)
[2021-09-20] MEDS: VITAMINS A AND D OINT TP SCH ×2 (09:00→21:09)
[2021-09-20] MEDS: SODIUM HYPOCHLORITE 0.125% (QUARTER STRENGTH) 473 ML BOTTLE TP SCH ×2 (09:00→21:09)
[2021-09-20] MEDS: levETIRAcetam 500 MG/5 ML LIQUID UDC GT SCH ×2 (09:00→21:05)
[2021-09-20] MEDS: METOPROLOL TARTRATE 25 MG TABLET GT SCH ×2 (09:00→21:06)
[2021-09-20] MEDS: BACLOFEN 10 MG TABLET GT SCH ×2 (09:00→21:05)
[2021-09-20] MEDS: COD LIVER OIL/ZINC OXIDE OINT 113 GM TUBE TP SCH ×2 (09:00→21:09)
[2021-09-20] MEDS: HYDROGEN PEROXIDE 3% 118 ML BOTTLE TP SCH ×2 (09:22→18:58)
--- NOTE | 2021-09-20 11:00 | NUR ---
This SW notified patient's daughter Janis by email that the next IDT meeting for the patient is scheduled for 09/27/2021 at 11am. This SW asked Janis to let this SW know if she would like to participate in the meeting by speaker phone.
--- NOTE | 2021-09-20 12:00 | NUR ---
GT IN PLACE PER RADIOLOGY AND TUBE FEEDING STARTED.
[2021-09-20] MEDS: INSULIN REGULAR, HUMAN 300 UNIT/3 ML VIAL SQ PRN ×2 (13:01→17:09)
[2021-09-20 13:40] VITALS: BP 123/68
--- NOTE | 2021-09-20 15:20 | NUR ---
Seen and examined by Cari Price,no new orders.
[2021-09-20] MEDS: MINERAL OIL/PETROLAT OPHT OINT 3.5 GM TUBE EACHEYE SCH (21:04)
[2021-09-20] MEDS: ATORVASTATIN 20 MG TABLET GT SCH (21:05)
[2021-09-20] MEDS: ASCORBIC ACID 500 MG TABLET GT SCH (21:08)
[2021-09-20] MEDS: THIAMINE HCL 100 MG TABLET GT SCH (21:08)
[2021-09-20] MEDS: GLUCERNA 1.2 1000ML LIQUID GT PRN (22:39)
[2021-09-20] MEDS: LORAZEPAM 1 MG TABLET GT PRN (23:00)
[2021-09-21] MEDS: IPRATROPIUM BROMIDE 0.5 MG/2.5 ML NEBU NEB SCH ×4 (00:40→19:38)
[2021-09-21] MEDS: LEVALBUTEROL HCL 1.25 MG/0.5 ML NEB NEB SCH ×4 (00:40→19:38)
[2021-09-21] MEDS: BLOOD SUGAR DIAGNOSTIC 1 EACH STRIP VI SCH ×4 (00:44→17:34)
[2021-09-21] MEDS: INSULIN REGULAR, HUMAN 300 UNIT/3 ML VIAL SQ PRN ×4 (00:46→17:37)
[2021-09-21] MEDS: HYDROCODONE/APAP 5-325MG TABLET GT PRN ×3 (04:56→17:59)
[2021-09-21] MEDS: CEFEPIME HCL 1 G in IV DEXTROSE 5% 50 ML IV SCH ×3 (04:56→21:00)
[2021-09-21] MEDS: LORAZEPAM 1 MG TABLET GT PRN ×3 (05:15→17:51)
[2021-09-21] MEDS: ARGININE/GLUTAMINE/CALCIUM BMB 1 EACH POWD.PACK GT SCH ×2 (05:27→17:31)
[2021-09-21] MEDS: NUTRISOURCE FIBER 4 GM PACKET GT SCH ×2 (05:27→17:31)
[2021-09-21] MEDS: OMEPRAZOLE 20 MG CAPSULE.DR GT SCH (05:27)
[2021-09-21] MEDS: NORMAL SALINE FLUSH 10 ML DISP.SYRIN IV SCH ×2 (08:06→21:00)
[2021-09-21] MEDS: TERAZOSIN 1 MG CAPSULE GT SCH (08:24)
[2021-09-21] MEDS: AMANTADINE HCL 50 MG/5 ML GT SCH ×2 (08:25→20:19)
[2021-09-21] MEDS: BACLOFEN 10 MG TABLET GT SCH ×2 (08:25→20:17)
[2021-09-21] MEDS: PHENOBARBITAL 97.2 MG TABLET GT SCH ×2 (08:25→20:19)
[2021-09-21] MEDS: levETIRAcetam 500 MG/5 ML LIQUID UDC GT SCH ×2 (08:25→20:16)
[2021-09-21] MEDS: METOPROLOL TARTRATE 25 MG TABLET GT SCH ×2 (08:25→20:18)
[2021-09-21] MEDS: NYSTATIN CREAM 30 GM TUBE TOP SCH ×2 (08:26→20:21)
[2021-09-21] MEDS: HEPARIN SODIUM,PORCINE 5,000 UNITS/ML VIAL SQ SCH ×2 (08:26→20:21)
[2021-09-21] MEDS: TRIAMCINOLONE ACET 0.1% CREAM 15 GM TUBE TOP SCH ×2 (08:26→20:21)
[2021-09-21] MEDS: SODIUM HYPOCHLORITE 0.125% (QUARTER STRENGTH) 473 ML BOTTLE TP SCH ×2 (08:26→20:21)
[2021-09-21] MEDS: COD LIVER OIL/ZINC OXIDE OINT 113 GM TUBE TP SCH ×2 (08:27→20:22)
[2021-09-21] MEDS: VITAMINS A AND D OINT TP SCH ×2 (08:27→20:22)
[2021-09-21] MEDS: ONDANSETRON HCL 4 MG TABLET GT PRN (08:34)
[2021-09-21] MEDS: ACETAMINOPHEN GT SCH ×2 (08:43→20:15)
[2021-09-21] MEDS: [UNRECOGNIZED DRUG - OTHER] GT SCH ×2 (08:43→20:15)
[2021-09-21] MEDS: HYDROGEN PEROXIDE 3% 118 ML BOTTLE TP SCH ×2 (09:07→21:00)
[2021-09-21] MEDS: PROCHLORPERAZINE MALEATE 25 MG SUPP.RECT RC PRN (11:41)
[2021-09-21 12:45] VITALS: BP 127/69
--- NOTE | 2021-09-21 12:50 | NUR ---
PT .WAS MEDICATED WITH COMPAZINE SUPPOSITORY AND EFFECTIVE WITH NAUSEA AND REGURGITATION OF FORMULA WHEN COUGHING AND RESTLESS.KUB DONE TOO .PREVIOUSLY MEDICATED ORDERED WITH ATIVAN AND NORCO AND REMAINS RELAXED SLEEPING AND SAFELY RECEIVING FEEDING FORMULA V/S FOLLOW:B/P 127/69,HR 100 X',RR 24X',O2 SAT. 97%,P/A 0/10 TEMP 98F.
[2021-09-21] MEDS: VANCOMYCIN IV 1,000 MG in IV DEXTROSE 5% 250 ML IV SCH (13:55)
[2021-09-21 17:35] VITALS: BP 120/76
[2021-09-21] MEDS: MINERAL OIL/PETROLAT OPHT OINT 3.5 GM TUBE EACHEYE SCH (20:16)
[2021-09-21] MEDS: ATORVASTATIN 20 MG TABLET GT SCH (20:17)
[2021-09-21] MEDS: ASCORBIC ACID 500 MG TABLET GT SCH (20:20)
[2021-09-21] MEDS: THIAMINE HCL 100 MG TABLET GT SCH (20:20)
[2021-09-22] VITALS: BP 135/60
[2021-09-22] MEDS: BLOOD SUGAR DIAGNOSTIC 1 EACH STRIP VI SCH ×4 (00:26→17:31)
[2021-09-22] MEDS: INSULIN REGULAR, HUMAN 300 UNIT/3 ML VIAL SQ PRN ×3 (00:32→17:33)
[2021-09-22] MEDS: LEVALBUTEROL HCL 1.25 MG/0.5 ML NEB NEB SCH ×4 (00:35→19:00)
[2021-09-22] MEDS: IPRATROPIUM BROMIDE 0.5 MG/2.5 ML NEBU NEB SCH ×4 (00:35→19:00)
[2021-09-22] MEDS: GLUCERNA 1.2 1000ML LIQUID GT PRN ×2 (00:42→17:40)
[2021-09-22] MEDS: VANCOMYCIN IV 1,000 MG in IV DEXTROSE 5% 250 ML IV SCH ×2 (03:00→17:00)
--- NOTE | 2021-09-22 03:57 | NUR ---
No vomiting noted at this time, Afebrile, still on Vancomycin and Cefepime IV for sacral wound osteomyelitis, no adverse reactions noted. Treatment done to sacral wound, turned and repositioned patient for comfort, will continue monitor.
[2021-09-22] MEDS: LORAZEPAM 1 MG TABLET GT PRN (04:30)
[2021-09-22] MEDS: CEFEPIME HCL 1 G in IV DEXTROSE 5% 50 ML IV SCH ×3 (05:19→21:04)
[2021-09-22] MEDS: ARGININE/GLUTAMINE/CALCIUM BMB 1 EACH POWD.PACK GT SCH ×2 (05:46→17:30)
[2021-09-22] MEDS: NUTRISOURCE FIBER 4 GM PACKET GT SCH ×2 (05:46→17:30)
[2021-09-22] MEDS: OMEPRAZOLE 20 MG CAPSULE.DR GT SCH (05:46)
[2021-09-22] MEDS: [UNRECOGNIZED DRUG - OTHER] GT SCH ×2 (08:54→20:28)
[2021-09-22] MEDS: TERAZOSIN 1 MG CAPSULE GT SCH (08:54)
[2021-09-22] MEDS: ACETAMINOPHEN GT SCH ×2 (08:54→20:28)
[2021-09-22] MEDS: levETIRAcetam 500 MG/5 ML LIQUID UDC GT SCH ×2 (08:55→20:32)
[2021-09-22] MEDS: BACLOFEN 10 MG TABLET GT SCH ×2 (08:55→20:33)
[2021-09-22] MEDS: AMANTADINE HCL 50 MG/5 ML GT SCH ×2 (08:56→20:35)
[2021-09-22] MEDS: METOPROLOL TARTRATE 25 MG TABLET GT SCH ×2 (08:56→20:34)
[2021-09-22] MEDS: PHENOBARBITAL 97.2 MG TABLET GT SCH ×2 (08:56→20:35)
[2021-09-22] MEDS: TRIAMCINOLONE ACET 0.1% CREAM 15 GM TUBE TOP SCH ×2 (08:57→20:37)
[2021-09-22] MEDS: COD LIVER OIL/ZINC OXIDE OINT 113 GM TUBE TP SCH ×2 (08:58→20:37)
[2021-09-22] MEDS: VITAMINS A AND D OINT TP SCH ×2 (08:58→20:38)
[2021-09-22] MEDS: HEPARIN SODIUM,PORCINE 5,000 UNITS/ML VIAL SQ SCH ×2 (08:58→20:37)
[2021-09-22] MEDS: NYSTATIN CREAM 30 GM TUBE TOP SCH ×2 (08:58→20:37)
[2021-09-22] MEDS: SODIUM HYPOCHLORITE 0.125% (QUARTER STRENGTH) 473 ML BOTTLE TP SCH ×2 (08:58→20:37)
[2021-09-22] MEDS: NORMAL SALINE FLUSH 10 ML DISP.SYRIN IV SCH ×2 (09:00→21:00)
[2021-09-22] MEDS: HYDROGEN PEROXIDE 3% 118 ML BOTTLE TP SCH ×2 (09:00→20:49)
[2021-09-22 12:00] VITALS: BP_SYST 138; BP_SYST 142; BP_DIAS 72; BP_DIAS 78
[2021-09-22 18:44] VITALS: BP 142/72
[2021-09-22] MEDS: MINERAL OIL/PETROLAT OPHT OINT 3.5 GM TUBE EACHEYE SCH (20:32)
[2021-09-22] MEDS: ATORVASTATIN 20 MG TABLET GT SCH (20:33)
[2021-09-22] MEDS: THIAMINE HCL 100 MG TABLET GT SCH (20:35)
[2021-09-22] MEDS: ASCORBIC ACID 500 MG TABLET GT SCH (20:36)
--- NOTE | 2021-09-22 22:30 | NUR ---
This Nurse called and spoke with Dr. Bauer and informed him about patient's 101.4 *F, B/P: 147/73 HR: 125 RR: 23 02 sat: 98%, MD ordered the following labs to be done in the morning: CBC, CMP, Lactic acid, CXR, Blood cultures X 2, noted and carried out.
[2021-09-23] MEDS: BLOOD SUGAR DIAGNOSTIC 1 EACH STRIP VI SCH ×4 (00:49→17:06)
[2021-09-23] MEDS: IPRATROPIUM BROMIDE 0.5 MG/2.5 ML NEBU NEB SCH ×4 (00:51→19:00)
[2021-09-23] MEDS: INSULIN REGULAR, HUMAN 300 UNIT/3 ML VIAL SQ PRN ×3 (00:51→17:06)
[2021-09-23] MEDS: LEVALBUTEROL HCL 1.25 MG/0.5 ML NEB NEB SCH ×4 (00:51→19:00)
--- NOTE | 2021-09-23 02:38 | NUR ---
Temperature is now 97.2, no signs of any distress, continues on Vancomycin and Cefepime IV for Sacral Osteomyelitis, with ongoing treatment to sacral wound as ordered, turned and repositioned for comfort.
[2021-09-23] MEDS: CEFEPIME HCL 1 G in IV DEXTROSE 5% 50 ML IV SCH ×3 (04:53→20:25)
[2021-09-23] MEDS: LORAZEPAM 1 MG TABLET GT PRN ×2 (05:00→11:54)
[2021-09-23] MEDS: OMEPRAZOLE 20 MG CAPSULE.DR GT SCH (05:58)
[2021-09-23] MEDS: NUTRISOURCE FIBER 4 GM PACKET GT SCH ×2 (05:58→17:06)
[2021-09-23] MEDS: ARGININE/GLUTAMINE/CALCIUM BMB 1 EACH POWD.PACK GT SCH ×2 (05:58→17:06)
[2021-09-23 07:07] LABS: HEMATOCRIT 28.4 % (36.7-47.1); MEAN CORPUSCULAR HEMOGLOBIN 28.4 uug (23.8-33.4); MEAN CORPUSCULAR VOLUME 85.8 fL (73.0-96.2); PLATELET COUNT (AUTO) 310 K/uL (152-348)
[2021-09-23 07:25] LABS: ALANINE AMINOTRANSFERASE 22 U/L (16-63); ALKALINE PHOSPHATASE 158 U/L (50-136); ASPARTATE AMINOTRANSFERASE 18 U/L (15-37); BILIRUBIN,TOTAL 0.2 mg/dL (0.2-1.0); CARBON DIOXIDE 31 mmol/L (21-32); CHLORIDE 95 mmol/L (98-107); CREATININE 0.5 mg/dL (0.6-1.3); GLUCOSE 144 mg/dL (74-106); POTASSIUM 4.4 mmol/L (3.5-5.1); TOTAL PROTEIN, SERUM 7.6 g/dL (6.4-8.2); UREA NITROGEN, BLOOD 24 mg/dL (7-18); VANCOMYCIN,TROUGH 18.4 ug/mL (12.0-20.0)
[2021-09-23] MEDS: VANCOMYCIN IV 1,000 MG in IV DEXTROSE 5% 250 ML IV SCH ×2 (07:46→21:37)
[2021-09-23] MEDS: HYDROGEN PEROXIDE 3% 118 ML BOTTLE TP SCH ×2 (08:30→21:12)
[2021-09-23] MEDS: ACETAMINOPHEN GT SCH ×2 (08:51→21:09)
[2021-09-23] MEDS: [UNRECOGNIZED DRUG - OTHER] GT SCH ×2 (08:51→21:09)
[2021-09-23] MEDS: BACLOFEN 10 MG TABLET GT SCH ×2 (08:52→21:09)
[2021-09-23] MEDS: levETIRAcetam 500 MG/5 ML LIQUID UDC GT SCH ×2 (08:52→21:09)
[2021-09-23] MEDS: TERAZOSIN 1 MG CAPSULE GT SCH (08:52)
[2021-09-23] MEDS: AMANTADINE HCL 50 MG/5 ML GT SCH ×2 (08:53→21:10)
[2021-09-23] MEDS: PHENOBARBITAL 97.2 MG TABLET GT SCH ×2 (08:53→21:10)
[2021-09-23] MEDS: METOPROLOL TARTRATE 25 MG TABLET GT SCH ×2 (08:53→21:10)
[2021-09-23] MEDS: NYSTATIN CREAM 30 GM TUBE TOP SCH ×2 (08:54→21:00)
[2021-09-23] MEDS: VITAMINS A AND D OINT TP SCH ×2 (08:54→21:00)
[2021-09-23] MEDS: COD LIVER OIL/ZINC OXIDE OINT 113 GM TUBE TP SCH ×2 (08:54→21:00)
[2021-09-23] MEDS: TRIAMCINOLONE ACET 0.1% CREAM 15 GM TUBE TOP SCH ×2 (08:54→21:10)
[2021-09-23] MEDS: SODIUM HYPOCHLORITE 0.125% (QUARTER STRENGTH) 473 ML BOTTLE TP SCH ×2 (08:54→21:00)
[2021-09-23] MEDS: HEPARIN SODIUM,PORCINE 5,000 UNITS/ML VIAL SQ SCH ×2 (08:56→21:00)
[2021-09-23] MEDS: NORMAL SALINE FLUSH 10 ML DISP.SYRIN IV SCH ×2 (09:00→20:38)
[2021-09-23 12:00] VITALS: BP 141/83
[2021-09-23 14:03] LABS: NEUTROPHILS % (MANUAL) 68 % (42-75)
[2021-09-23 14:04] LABS: EOSINOPHILS % (MANUAL) 1 % (0-8); LYMPHOCYTES % (MANUAL) 19 % (20-40); MONOCYTES % (MANUAL) 12 % (2-10)
[2021-09-23 18:36] VITALS: BP 130/73
--- NOTE | 2021-09-23 21:00 | NUR ---
Patient remain afebrile, Temperature at (2000) 98.2, no signs of any distress, continues on Vancomycin and Mexepime 1gram IV for Sacral Osteomyelitis, with ongoing treatment to sacral wound as ordered, turned and repositioned for comfort
[2021-09-23] MEDS: MINERAL OIL/PETROLAT OPHT OINT 3.5 GM TUBE EACHEYE SCH (21:09)
[2021-09-23] MEDS: ATORVASTATIN 20 MG TABLET GT SCH (21:09)
[2021-09-23] MEDS: ASCORBIC ACID 500 MG TABLET GT SCH (21:10)
[2021-09-23] MEDS: THIAMINE HCL 100 MG TABLET GT SCH (21:10)
[2021-09-23] MEDS: hydrALAZINE HCL 25 MG TABLET GT PRN (21:11)
[2021-09-24] VITALS: BP 116/68
[2021-09-24] MEDS: INSULIN REGULAR, HUMAN 300 UNIT/3 ML VIAL SQ PRN ×4 (00:30→17:26)
[2021-09-24] MEDS: IPRATROPIUM BROMIDE 0.5 MG/2.5 ML NEBU NEB SCH ×4 (00:53→19:03)
[2021-09-24] MEDS: LEVALBUTEROL HCL 1.25 MG/0.5 ML NEB NEB SCH ×4 (00:53→19:03)
[2021-09-24] MEDS: CEFEPIME HCL 1 G in IV DEXTROSE 5% 50 ML IV SCH ×3 (05:00→21:02)
[2021-09-24] MEDS: ARGININE/GLUTAMINE/CALCIUM BMB 1 EACH POWD.PACK GT SCH ×2 (05:47→17:25)
[2021-09-24] MEDS: NUTRISOURCE FIBER 4 GM PACKET GT SCH ×2 (05:47→17:25)
[2021-09-24] MEDS: OMEPRAZOLE 20 MG CAPSULE.DR GT SCH (05:47)
[2021-09-24] MEDS: BLOOD SUGAR DIAGNOSTIC 1 EACH STRIP VI SCH ×4 (05:47→17:25)
[2021-09-24 06:00] VITALS: BP 129/84
[2021-09-24] MEDS: PROCHLORPERAZINE MALEATE 25 MG SUPP.RECT RC PRN (07:37)
[2021-09-24 08:07] VITALS: BP 141/78
[2021-09-24] MEDS: [UNRECOGNIZED DRUG - OTHER] GT SCH ×2 (08:22→20:52)
[2021-09-24] MEDS: ACETAMINOPHEN GT SCH ×2 (08:22→20:52)
[2021-09-24] MEDS: levETIRAcetam 500 MG/5 ML LIQUID UDC GT SCH ×2 (08:22→20:54)
[2021-09-24] MEDS: BACLOFEN 10 MG TABLET GT SCH ×2 (08:22→20:55)
[2021-09-24] MEDS: METOPROLOL TARTRATE 25 MG TABLET GT SCH ×2 (08:22→20:56)
[2021-09-24] MEDS: TERAZOSIN 1 MG CAPSULE GT SCH (08:22)
[2021-09-24] MEDS: PHENOBARBITAL 97.2 MG TABLET GT SCH ×2 (08:22→20:56)
[2021-09-24] MEDS: SODIUM HYPOCHLORITE 0.125% (QUARTER STRENGTH) 473 ML BOTTLE TP SCH ×2 (08:23→20:58)
[2021-09-24] MEDS: VITAMINS A AND D OINT TP SCH ×2 (08:23→20:58)
[2021-09-24] MEDS: AMANTADINE HCL 50 MG/5 ML GT SCH ×2 (08:23→20:56)
[2021-09-24] MEDS: HEPARIN SODIUM,PORCINE 5,000 UNITS/ML VIAL SQ SCH ×2 (08:23→21:00)
[2021-09-24] MEDS: TRIAMCINOLONE ACET 0.1% CREAM 15 GM TUBE TOP SCH ×2 (08:23→20:57)
[2021-09-24] MEDS: NYSTATIN CREAM 30 GM TUBE TOP SCH ×2 (08:23→20:58)
[2021-09-24] MEDS: NORMAL SALINE FLUSH 10 ML DISP.SYRIN IV SCH ×2 (08:23→20:57)
[2021-09-24] MEDS: COD LIVER OIL/ZINC OXIDE OINT 113 GM TUBE TP SCH ×2 (08:23→20:58)
[2021-09-24] MEDS: HYDROGEN PEROXIDE 3% 118 ML BOTTLE TP SCH ×2 (09:00→21:44)
[2021-09-24] MEDS: VANCOMYCIN IV 1,000 MG in IV DEXTROSE 5% 250 ML IV SCH (11:00)
[2021-09-24 12:00] VITALS: BP 126/56
[2021-09-24] MEDS: GLUCERNA 1.2 1000ML LIQUID GT PRN (12:21)
[2021-09-24] MEDS: LORAZEPAM 1 MG TABLET GT PRN (12:21)
[2021-09-24 18:37] VITALS: BP 134/62
--- NOTE | 2021-09-24 18:50 | NUR ---
Pt continue on vancomycin and cefepime Ivatb for sacral wound osteomilitis,no adverse reaction noted,Pt is afebrile,Midline on the R upper arm intact.
[2021-09-24] MEDS: MINERAL OIL/PETROLAT OPHT OINT 3.5 GM TUBE EACHEYE SCH (20:54)
[2021-09-24] MEDS: ATORVASTATIN 20 MG TABLET GT SCH (20:55)
[2021-09-24] MEDS: ASCORBIC ACID 500 MG TABLET GT SCH (20:57)
[2021-09-24] MEDS: THIAMINE HCL 100 MG TABLET GT SCH (20:57)
[2021-09-25] MEDS: BLOOD SUGAR DIAGNOSTIC 1 EACH STRIP VI SCH ×5 (00:27→23:59)
[2021-09-25] MEDS: IPRATROPIUM BROMIDE 0.5 MG/2.5 ML NEBU NEB SCH ×4 (00:40→18:49)
[2021-09-25] MEDS: LEVALBUTEROL HCL 1.25 MG/0.5 ML NEB NEB SCH ×4 (00:40→18:49)
[2021-09-25] MEDS: VANCOMYCIN IV 1,000 MG in IV DEXTROSE 5% 250 ML IV SCH ×2 (00:55→15:10)
[2021-09-25] MEDS: INSULIN REGULAR, HUMAN 300 UNIT/3 ML VIAL SQ PRN ×4 (01:21→17:21)
[2021-09-25] MEDS: NUTRISOURCE FIBER 4 GM PACKET GT SCH ×2 (05:12→17:19)
[2021-09-25] MEDS: ARGININE/GLUTAMINE/CALCIUM BMB 1 EACH POWD.PACK GT SCH ×2 (05:12→17:19)
[2021-09-25] MEDS: OMEPRAZOLE 20 MG CAPSULE.DR GT SCH (05:14)
[2021-09-25] MEDS: GLUCERNA 1.2 1000ML LIQUID GT PRN (05:15)
[2021-09-25] MEDS: CEFEPIME HCL 1 G in IV DEXTROSE 5% 50 ML IV SCH ×3 (05:26→21:02)
[2021-09-25] MEDS: AMANTADINE HCL 50 MG/5 ML GT SCH ×2 (08:25→21:01)
[2021-09-25] MEDS: BACLOFEN 10 MG TABLET GT SCH ×2 (08:25→21:00)
[2021-09-25] MEDS: levETIRAcetam 500 MG/5 ML LIQUID UDC GT SCH ×2 (08:25→21:00)
[2021-09-25] MEDS: [UNRECOGNIZED DRUG - OTHER] GT SCH ×2 (08:25→21:00)
[2021-09-25] MEDS: METOPROLOL TARTRATE 25 MG TABLET GT SCH ×2 (08:25→21:00)
[2021-09-25] MEDS: ACETAMINOPHEN GT SCH ×2 (08:25→21:00)
[2021-09-25] MEDS: PHENOBARBITAL 97.2 MG TABLET GT SCH ×2 (08:25→21:01)
[2021-09-25] MEDS: TERAZOSIN 1 MG CAPSULE GT SCH (08:25)
[2021-09-25] MEDS: TRIAMCINOLONE ACET 0.1% CREAM 15 GM TUBE TOP SCH ×2 (08:26→21:01)
[2021-09-25] MEDS: HEPARIN SODIUM,PORCINE 5,000 UNITS/ML VIAL SQ SCH ×2 (08:26→21:01)
[2021-09-25] MEDS: VITAMINS A AND D OINT TP SCH ×2 (08:27→21:02)
[2021-09-25] MEDS: SODIUM HYPOCHLORITE 0.125% (QUARTER STRENGTH) 473 ML BOTTLE TP SCH ×2 (08:27→21:01)
[2021-09-25] MEDS: COD LIVER OIL/ZINC OXIDE OINT 113 GM TUBE TP SCH ×2 (08:27→21:02)
[2021-09-25] MEDS: NYSTATIN CREAM 30 GM TUBE TOP SCH ×2 (08:27→21:01)
[2021-09-25] MEDS: NORMAL SALINE FLUSH 10 ML DISP.SYRIN IV SCH ×2 (09:00→21:01)
[2021-09-25] MEDS: HYDROGEN PEROXIDE 3% 118 ML BOTTLE TP SCH ×2 (09:17→21:14)
[2021-09-25 12:00] VITALS: BP 145/65
--- NOTE | 2021-09-25 18:00 | NUR ---
Pt on vancomycin and cefepime Ivatb for sacral wound osteomilitis,no adverse reaction noted,Pt is afebrile,Midline on the R upper arm intact,no s/s of infection noted.
[2021-09-25 18:14] VITALS: BP 147/57
[2021-09-25] MEDS: ATORVASTATIN 20 MG TABLET GT SCH (21:00)
[2021-09-25] MEDS: MINERAL OIL/PETROLAT OPHT OINT 3.5 GM TUBE EACHEYE SCH (21:00)
[2021-09-25] MEDS: THIAMINE HCL 100 MG TABLET GT SCH (21:01)
[2021-09-25] MEDS: ASCORBIC ACID 500 MG TABLET GT SCH (21:01)
[2021-09-26] MEDS: INSULIN REGULAR, HUMAN 300 UNIT/3 ML VIAL SQ PRN ×5 (00:01→23:29)
[2021-09-26] MEDS ORDERED: NYSTATIN CREAM 30 GM TUBE TOP PRN (00:45)
[2021-09-26] MEDS ORDERED: SODIUM HYPOCHLORITE 0.125% (QUARTER STRENGTH) 473 ML BOTTLE TP PRN (00:45)
[2021-09-26] MEDS ORDERED: TRIAMCINOLONE ACET 0.1% CREAM 15 GM TUBE TOP PRN (00:45)
[2021-09-26] MEDS: IPRATROPIUM BROMIDE 0.5 MG/2.5 ML NEBU NEB SCH ×4 (01:01→18:56)
[2021-09-26] MEDS: LEVALBUTEROL HCL 1.25 MG/0.5 ML NEB NEB SCH ×4 (01:01→18:56)
--- NOTE | 2021-09-26 01:05 | NUR ---
Renewed treatment to sacral wound every shift and PRN for soiling X 30 days.
[2021-09-26] MEDS: TRIAMCINOLONE ACET 0.1% CREAM 15 GM TUBE TOP SCH ×5 (01:13→20:47)
[2021-09-26] MEDS: SODIUM HYPOCHLORITE 0.125% (QUARTER STRENGTH) 473 ML BOTTLE TP SCH ×5 (01:14→20:47)
[2021-09-26] MEDS: NYSTATIN CREAM 30 GM TUBE TOP SCH ×5 (01:14→20:47)
--- NOTE | 2021-09-26 03:03 | NUR ---
continues on Vancomycin and Cefepime IV for Sacral Osteomyelitis, ELIZABETH Midline is intact and patent, no signs of infection. with ongoing treatment to sacral wound as ordered, turned and repositioned for comfort.
[2021-09-26] MEDS: VANCOMYCIN IV 1,000 MG in IV DEXTROSE 5% 250 ML IV SCH ×2 (05:07→18:22)
[2021-09-26] MEDS: CEFEPIME HCL 1 G in IV DEXTROSE 5% 50 ML IV SCH ×2 (05:07→12:12)
[2021-09-26] MEDS: OMEPRAZOLE 20 MG CAPSULE.DR GT SCH (05:36)
[2021-09-26] MEDS: ARGININE/GLUTAMINE/CALCIUM BMB 1 EACH POWD.PACK GT SCH ×2 (05:36→17:30)
[2021-09-26] MEDS: GLUCERNA 1.2 1000ML LIQUID GT PRN ×3 (05:36→17:31)
[2021-09-26] MEDS: NUTRISOURCE FIBER 4 GM PACKET GT SCH ×2 (05:36→17:30)
[2021-09-26] MEDS: BLOOD SUGAR DIAGNOSTIC 1 EACH STRIP VI SCH ×5 (05:36→23:27)
[2021-09-26] MEDS: NORMAL SALINE FLUSH 10 ML DISP.SYRIN IV SCH ×2 (09:00→20:46)
[2021-09-26] MEDS ORDERED: NYSTATIN CREAM 30 GM TUBE TOP SCH (09:00)
[2021-09-26] MEDS: HYDROGEN PEROXIDE 3% 118 ML BOTTLE TP SCH ×2 (09:04→21:19)
[2021-09-26] MEDS: BACLOFEN 10 MG TABLET GT SCH ×2 (09:20→20:44)
[2021-09-26] MEDS: TERAZOSIN 1 MG CAPSULE GT SCH (09:20)
[2021-09-26] MEDS: [UNRECOGNIZED DRUG - OTHER] GT SCH ×2 (09:20→20:43)
[2021-09-26] MEDS: levETIRAcetam 500 MG/5 ML LIQUID UDC GT SCH ×2 (09:20→20:43)
[2021-09-26] MEDS: ACETAMINOPHEN GT SCH ×2 (09:20→20:43)
[2021-09-26] MEDS: METOPROLOL TARTRATE 25 MG TABLET GT SCH ×2 (09:21→20:44)
[2021-09-26] MEDS: AMANTADINE HCL 50 MG/5 ML GT SCH ×2 (09:21→20:44)
[2021-09-26] MEDS: PHENOBARBITAL 97.2 MG TABLET GT SCH ×2 (09:21→20:44)
[2021-09-26] MEDS: COD LIVER OIL/ZINC OXIDE OINT 113 GM TUBE TP SCH ×2 (09:22→20:47)
[2021-09-26] MEDS: VITAMINS A AND D OINT TP SCH ×2 (09:22→20:47)
[2021-09-26] MEDS: HEPARIN SODIUM,PORCINE 5,000 UNITS/ML VIAL SQ SCH ×2 (09:23→20:47)
[2021-09-26 12:00] VITALS: BP 141/61
[2021-09-26 17:54] VITALS: BP 148/58
[2021-09-26] MEDS: MINERAL OIL/PETROLAT OPHT OINT 3.5 GM TUBE EACHEYE SCH (20:43)
[2021-09-26] MEDS: ATORVASTATIN 20 MG TABLET GT SCH (20:44)
[2021-09-26] MEDS: ASCORBIC ACID 500 MG TABLET GT SCH (20:46)
[2021-09-26] MEDS: THIAMINE HCL 100 MG TABLET GT SCH (20:46)
--- NOTE | 2021-09-26 23:00 | NUR ---
Last dose of antibiotic for osteomyelitis was given today. no adverse reactions noted, afebrile, no respiratory distress noted at this time, will continue monitor.
[2021-09-27] MEDS: IPRATROPIUM BROMIDE 0.5 MG/2.5 ML NEBU NEB SCH ×4 (00:49→19:05)
[2021-09-27] MEDS: LEVALBUTEROL HCL 1.25 MG/0.5 ML NEB NEB SCH ×4 (00:49→19:05)
[2021-09-27] MEDS: ARGININE/GLUTAMINE/CALCIUM BMB 1 EACH POWD.PACK GT SCH ×2 (05:18→17:35)
[2021-09-27] MEDS: OMEPRAZOLE 20 MG CAPSULE.DR GT SCH (05:19)
[2021-09-27] MEDS: NUTRISOURCE FIBER 4 GM PACKET GT SCH ×2 (05:19→17:35)
[2021-09-27] MEDS: BLOOD SUGAR DIAGNOSTIC 1 EACH STRIP VI SCH ×4 (05:19→23:11)
[2021-09-27] MEDS: HYDROGEN PEROXIDE 3% 118 ML BOTTLE TP SCH ×2 (08:15→20:21)
[2021-09-27] MEDS: [UNRECOGNIZED DRUG - OTHER] GT SCH ×2 (08:30→21:14)
[2021-09-27] MEDS: ACETAMINOPHEN GT SCH ×2 (08:30→21:14)
[2021-09-27] MEDS: NORMAL SALINE FLUSH 10 ML DISP.SYRIN IV SCH ×2 (09:00→21:00)
[2021-09-27] MEDS: AMANTADINE HCL 50 MG/5 ML GT SCH ×2 (09:47→21:18)
[2021-09-27] MEDS: levETIRAcetam 500 MG/5 ML LIQUID UDC GT SCH ×2 (09:47→21:15)
[2021-09-27] MEDS: PHENOBARBITAL 97.2 MG TABLET GT SCH ×2 (09:47→21:18)
[2021-09-27] MEDS: METOPROLOL TARTRATE 25 MG TABLET GT SCH ×2 (09:47→21:17)
[2021-09-27] MEDS: BACLOFEN 10 MG TABLET GT SCH ×2 (09:47→21:16)
[2021-09-27] MEDS: TERAZOSIN 1 MG CAPSULE GT SCH (09:47)
[2021-09-27] MEDS: SODIUM HYPOCHLORITE 0.125% (QUARTER STRENGTH) 473 ML BOTTLE TP SCH ×4 (09:48→21:22)
[2021-09-27] MEDS: NYSTATIN CREAM 30 GM TUBE TOP SCH ×4 (09:48→21:21)
[2021-09-27] MEDS: HEPARIN SODIUM,PORCINE 5,000 UNITS/ML VIAL SQ SCH ×2 (09:48→21:21)
[2021-09-27] MEDS: TRIAMCINOLONE ACET 0.1% CREAM 15 GM TUBE TOP SCH ×4 (09:48→21:21)
[2021-09-27] MEDS: VITAMINS A AND D OINT TP SCH ×2 (09:49→21:22)
[2021-09-27] MEDS: COD LIVER OIL/ZINC OXIDE OINT 113 GM TUBE TP SCH ×2 (09:49→21:22)
--- NOTE | 2021-09-27 13:00 | NUR ---
Seen and examined by Cari Price,no new orders noted.
[2021-09-27] MEDS: INSULIN REGULAR, HUMAN 300 UNIT/3 ML VIAL SQ PRN ×3 (15:26→23:12)
[2021-09-27] MEDS: GLUCERNA 1.2 1000ML LIQUID GT PRN (15:26)
[2021-09-27] MEDS: HYDROCODONE/APAP 5-325MG TABLET GT PRN (15:27)
--- NOTE | 2021-09-27 16:00 | NUR ---
INTERDISCIPLINARY PLAN OF CARE CONFERENCE was held today. Pt's daughter Janis was not available to participate in the meeting today. Dr. Peralta and the Interdisciplinary Team reviewed the current plan of care in detail. RN reported on patient's medical condition and informed of patient having episodes of nausea and vomiting. See all disciplines IDT notes and physician's progress notes for additional details.
[2021-09-27 18:31] VITALS: BP_SYST 148; BP_SYST 150; BP_DIAS 60; BP_DIAS 75
[2021-09-27] MEDS: MINERAL OIL/PETROLAT OPHT OINT 3.5 GM TUBE EACHEYE SCH (21:15)
[2021-09-27] MEDS: ATORVASTATIN 20 MG TABLET GT SCH (21:17)
[2021-09-27] MEDS: ASCORBIC ACID 500 MG TABLET GT SCH (21:19)
[2021-09-27] MEDS: THIAMINE HCL 100 MG TABLET GT SCH (21:19)
[2021-09-27 23:17] VITALS: BP 134/70
[2021-09-28] MEDS: LEVALBUTEROL HCL 1.25 MG/0.5 ML NEB NEB SCH ×4 (00:40→18:54)
[2021-09-28] MEDS: IPRATROPIUM BROMIDE 0.5 MG/2.5 ML NEBU NEB SCH ×4 (00:40→18:54)
[2021-09-28] MEDS: NUTRISOURCE FIBER 4 GM PACKET GT SCH ×2 (05:15→17:16)
[2021-09-28] MEDS: ARGININE/GLUTAMINE/CALCIUM BMB 1 EACH POWD.PACK GT SCH ×2 (05:15→17:16)
[2021-09-28] MEDS: BLOOD SUGAR DIAGNOSTIC 1 EACH STRIP VI SCH ×3 (05:15→17:16)
[2021-09-28] MEDS: OMEPRAZOLE 20 MG CAPSULE.DR GT SCH (05:15)
[2021-09-28 06:21] VITALS: BP 145/72
[2021-09-28] MEDS: HYDROGEN PEROXIDE 3% 118 ML BOTTLE TP SCH ×2 (08:07→21:07)
[2021-09-28] MEDS: levETIRAcetam 500 MG/5 ML LIQUID UDC GT SCH ×2 (08:36→20:52)
[2021-09-28] MEDS: METOPROLOL TARTRATE 25 MG TABLET GT SCH ×2 (08:36→20:55)
[2021-09-28] MEDS: TERAZOSIN 1 MG CAPSULE GT SCH (08:36)
[2021-09-28] MEDS: BACLOFEN 10 MG TABLET GT SCH ×2 (08:36→20:53)
[2021-09-28] MEDS: [UNRECOGNIZED DRUG - OTHER] GT SCH ×2 (08:36→20:50)
[2021-09-28] MEDS: ACETAMINOPHEN GT SCH ×2 (08:36→20:50)
[2021-09-28] MEDS: PHENOBARBITAL 97.2 MG TABLET GT SCH ×2 (08:37→20:59)
[2021-09-28] MEDS: AMANTADINE HCL 50 MG/5 ML GT SCH ×2 (08:37→20:56)
[2021-09-28] MEDS: NORMAL SALINE FLUSH 10 ML DISP.SYRIN IV SCH (08:37)
[2021-09-28] MEDS: TRIAMCINOLONE ACET 0.1% CREAM 15 GM TUBE TOP SCH ×4 (08:42→20:58)
[2021-09-28] MEDS: HEPARIN SODIUM,PORCINE 5,000 UNITS/ML VIAL SQ SCH ×2 (08:42→20:57)
[2021-09-28] MEDS: NYSTATIN CREAM 30 GM TUBE TOP SCH ×4 (08:42→20:58)
[2021-09-28] MEDS: VITAMINS A AND D OINT TP SCH ×2 (08:43→20:59)
[2021-09-28] MEDS: SODIUM HYPOCHLORITE 0.125% (QUARTER STRENGTH) 473 ML BOTTLE TP SCH ×4 (08:43→20:58)
[2021-09-28] MEDS: COD LIVER OIL/ZINC OXIDE OINT 113 GM TUBE TP SCH ×2 (08:43→20:59)
[2021-09-28 12:00] VITALS: BP 138/81
[2021-09-28] MEDS: INSULIN REGULAR, HUMAN 300 UNIT/3 ML VIAL SQ PRN ×2 (12:14→17:18)
[2021-09-28] MEDS: GLUCERNA 1.2 1000ML LIQUID GT PRN (12:15)
--- NOTE | 2021-09-28 14:25 | NUR ---
This SW notified patient's daughter Janis by email that the next IDT meeting for the patient is scheduled for 10/04/2021 at 11am. This SW asked her to let this SW know if she would like to participate in the meeting by speaker phone.
[2021-09-28 18:00] VITALS: BP 141/78
--- NOTE | 2021-09-28 18:58 | NUR ---
Seen and examined by Dr Peralta,with new orders noted,Midline discontinue as ordered,no bleeding noted.
[2021-09-28] MEDS: MINERAL OIL/PETROLAT OPHT OINT 3.5 GM TUBE EACHEYE SCH (20:51)
[2021-09-28] MEDS: ATORVASTATIN 20 MG TABLET GT SCH (20:53)
[2021-09-28] MEDS: ASCORBIC ACID 500 MG TABLET GT SCH (20:57)
[2021-09-28] MEDS: THIAMINE HCL 100 MG TABLET GT SCH (20:57)
[2021-09-29] MEDS: BLOOD SUGAR DIAGNOSTIC 1 EACH STRIP VI SCH ×4 (00:31→17:39)
[2021-09-29] MEDS: INSULIN REGULAR, HUMAN 300 UNIT/3 ML VIAL SQ PRN ×4 (00:32→17:42)
[2021-09-29] MEDS: LEVALBUTEROL HCL 1.25 MG/0.5 ML NEB NEB SCH ×4 (00:37→19:01)
[2021-09-29] MEDS: IPRATROPIUM BROMIDE 0.5 MG/2.5 ML NEBU NEB SCH ×4 (00:37→19:01)
[2021-09-29] MEDS: PROCHLORPERAZINE MALEATE 25 MG SUPP.RECT RC PRN (01:30)
[2021-09-29] MEDS: HYDROCODONE/APAP 5-325MG TABLET GT PRN (04:00)
[2021-09-29] MEDS: OMEPRAZOLE 20 MG CAPSULE.DR GT SCH (06:33)
[2021-09-29] MEDS: ARGININE/GLUTAMINE/CALCIUM BMB 1 EACH POWD.PACK GT SCH ×2 (06:33→17:34)
[2021-09-29] MEDS: NUTRISOURCE FIBER 4 GM PACKET GT SCH ×2 (06:33→17:34)
[2021-09-29] MEDS: HYDROGEN PEROXIDE 3% 118 ML BOTTLE TP SCH ×2 (08:20→19:01)
[2021-09-29] MEDS: [UNRECOGNIZED DRUG - OTHER] GT SCH ×2 (08:47→21:09)
[2021-09-29] MEDS: ACETAMINOPHEN GT SCH ×2 (08:47→21:09)
[2021-09-29] MEDS: TERAZOSIN 1 MG CAPSULE GT SCH (08:51)
[2021-09-29] MEDS: PHENOBARBITAL 97.2 MG TABLET GT SCH ×2 (08:51→21:12)
[2021-09-29] MEDS: AMANTADINE HCL 50 MG/5 ML GT SCH ×2 (08:51→21:13)
[2021-09-29] MEDS: levETIRAcetam 500 MG/5 ML LIQUID UDC GT SCH ×2 (08:51→21:10)
[2021-09-29] MEDS: BACLOFEN 10 MG TABLET GT SCH ×2 (08:51→21:11)
[2021-09-29] MEDS: METOPROLOL TARTRATE 25 MG TABLET GT SCH ×2 (08:51→21:12)
[2021-09-29] MEDS: HEPARIN SODIUM,PORCINE 5,000 UNITS/ML VIAL SQ SCH ×2 (08:52→21:26)
[2021-09-29] MEDS: TRIAMCINOLONE ACET 0.1% CREAM 15 GM TUBE TOP SCH ×4 (08:53→21:15)
[2021-09-29] MEDS: VITAMINS A AND D OINT TP SCH ×2 (08:54→21:15)
[2021-09-29] MEDS: SODIUM HYPOCHLORITE 0.125% (QUARTER STRENGTH) 473 ML BOTTLE TP SCH ×4 (08:54→21:15)
[2021-09-29] MEDS: COD LIVER OIL/ZINC OXIDE OINT 113 GM TUBE TP SCH ×2 (08:54→21:15)
[2021-09-29] MEDS: NYSTATIN CREAM 30 GM TUBE TOP SCH ×4 (08:54→21:15)
[2021-09-29 12:35] VITALS: BP 147/77
[2021-09-29 18:00] VITALS: BP 137/83
[2021-09-29] MEDS: MINERAL OIL/PETROLAT OPHT OINT 3.5 GM TUBE EACHEYE SCH (21:10)
[2021-09-29] MEDS: ATORVASTATIN 20 MG TABLET GT SCH (21:11)
[2021-09-29] MEDS: ASCORBIC ACID 500 MG TABLET GT SCH (21:14)
[2021-09-29] MEDS: THIAMINE HCL 100 MG TABLET GT SCH (21:14)
[2021-09-30] MEDS: BLOOD SUGAR DIAGNOSTIC 1 EACH STRIP VI SCH ×5 (00:36→23:37)
[2021-09-30] MEDS: LEVALBUTEROL HCL 1.25 MG/0.5 ML NEB NEB SCH ×4 (00:40→19:09)
[2021-09-30] MEDS: IPRATROPIUM BROMIDE 0.5 MG/2.5 ML NEBU NEB SCH ×4 (00:40→19:09)
[2021-09-30] MEDS: INSULIN REGULAR, HUMAN 300 UNIT/3 ML VIAL SQ PRN ×5 (00:42→23:39)
[2021-09-30 01:09] VITALS: BP 140/89
[2021-09-30] MEDS: OMEPRAZOLE 20 MG CAPSULE.DR GT SCH (05:10)
[2021-09-30] MEDS: ARGININE/GLUTAMINE/CALCIUM BMB 1 EACH POWD.PACK GT SCH ×2 (05:10→17:38)
[2021-09-30] MEDS: NUTRISOURCE FIBER 4 GM PACKET GT SCH ×2 (05:10→17:38)
[2021-09-30 07:06] VITALS: BP 133/85
[2021-09-30] MEDS: [UNRECOGNIZED DRUG - OTHER] GT SCH ×2 (08:10→20:30)
[2021-09-30] MEDS: TERAZOSIN 1 MG CAPSULE GT SCH (08:10)
[2021-09-30] MEDS: ACETAMINOPHEN GT SCH ×2 (08:10→20:30)
[2021-09-30] MEDS: levETIRAcetam 500 MG/5 ML LIQUID UDC GT SCH ×2 (08:11→21:36)
[2021-09-30] MEDS: METOPROLOL TARTRATE 25 MG TABLET GT SCH ×2 (08:11→21:37)
[2021-09-30] MEDS: PHENOBARBITAL 97.2 MG TABLET GT SCH ×2 (08:11→21:37)
[2021-09-30] MEDS: BACLOFEN 10 MG TABLET GT SCH ×2 (08:11→21:36)
[2021-09-30] MEDS: AMANTADINE HCL 50 MG/5 ML GT SCH ×2 (08:21→21:37)
[2021-09-30] MEDS: HEPARIN SODIUM,PORCINE 5,000 UNITS/ML VIAL SQ SCH ×2 (08:24→21:52)
[2021-09-30] MEDS: TRIAMCINOLONE ACET 0.1% CREAM 15 GM TUBE TOP SCH ×4 (08:24→21:37)
[2021-09-30] MEDS: NYSTATIN CREAM 30 GM TUBE TOP SCH ×4 (08:24→21:37)
[2021-09-30] MEDS: COD LIVER OIL/ZINC OXIDE OINT 113 GM TUBE TP SCH ×2 (08:26→21:37)
[2021-09-30] MEDS: SODIUM HYPOCHLORITE 0.125% (QUARTER STRENGTH) 473 ML BOTTLE TP SCH ×4 (08:26→21:37)
[2021-09-30] MEDS: VITAMINS A AND D OINT TP SCH ×2 (08:26→21:37)
[2021-09-30] MEDS: HYDROGEN PEROXIDE 3% 118 ML BOTTLE TP SCH ×2 (08:33→20:54)
[2021-09-30 12:00] VITALS: BP 135/72
[2021-09-30 18:00] VITALS: BP 143/78
[2021-09-30] MEDS: MINERAL OIL/PETROLAT OPHT OINT 3.5 GM TUBE EACHEYE SCH (21:36)
[2021-09-30] MEDS: THIAMINE HCL 100 MG TABLET GT SCH (21:37)
[2021-09-30] MEDS: ASCORBIC ACID 500 MG TABLET GT SCH (21:37)
[2021-09-30] MEDS: ATORVASTATIN 20 MG TABLET GT SCH (21:51)
[2021-10-01 00:38] VITALS: BP 137/76
[2021-10-01] MEDS: LEVALBUTEROL HCL 1.25 MG/0.5 ML NEB NEB SCH ×4 (01:16→19:01)
[2021-10-01] MEDS: IPRATROPIUM BROMIDE 0.5 MG/2.5 ML NEBU NEB SCH ×4 (01:16→19:01)
[2021-10-01] MEDS: BLOOD SUGAR DIAGNOSTIC 1 EACH STRIP VI SCH ×3 (05:44→17:34)
[2021-10-01] MEDS: ARGININE/GLUTAMINE/CALCIUM BMB 1 EACH POWD.PACK GT SCH ×2 (05:44→17:33)
[2021-10-01] MEDS: NUTRISOURCE FIBER 4 GM PACKET GT SCH ×2 (05:44→17:34)
[2021-10-01] MEDS: OMEPRAZOLE 20 MG CAPSULE.DR GT SCH (05:44)
[2021-10-01] MEDS: INSULIN REGULAR, HUMAN 300 UNIT/3 ML VIAL SQ PRN ×3 (05:52→17:34)
[2021-10-01 06:18] VITALS: BP 152/86
[2021-10-01] MEDS: TERAZOSIN 1 MG CAPSULE GT SCH (09:14)
[2021-10-01] MEDS: BACLOFEN 10 MG TABLET GT SCH ×2 (09:14→21:20)
[2021-10-01] MEDS: [UNRECOGNIZED DRUG - OTHER] GT SCH ×2 (09:14→21:20)
[2021-10-01] MEDS: levETIRAcetam 500 MG/5 ML LIQUID UDC GT SCH ×2 (09:14→21:20)
[2021-10-01] MEDS: ACETAMINOPHEN GT SCH ×2 (09:14→21:20)
[2021-10-01] MEDS: AMANTADINE HCL 50 MG/5 ML GT SCH ×2 (09:15→21:21)
[2021-10-01] MEDS: PHENOBARBITAL 97.2 MG TABLET GT SCH ×2 (09:15→21:21)
[2021-10-01] MEDS: METOPROLOL TARTRATE 25 MG TABLET GT SCH ×2 (09:15→21:21)
[2021-10-01] MEDS: TRIAMCINOLONE ACET 0.1% CREAM 15 GM TUBE TOP SCH ×3 (09:16→21:21)
[2021-10-01] MEDS: COD LIVER OIL/ZINC OXIDE OINT 113 GM TUBE TP SCH ×2 (09:16→21:21)
[2021-10-01] MEDS: SODIUM HYPOCHLORITE 0.125% (QUARTER STRENGTH) 473 ML BOTTLE TP SCH ×3 (09:16→21:21)
[2021-10-01] MEDS: NYSTATIN CREAM 30 GM TUBE TOP SCH ×3 (09:16→21:21)
[2021-10-01] MEDS: VITAMINS A AND D OINT TP SCH ×2 (09:16→21:21)
[2021-10-01] MEDS: HEPARIN SODIUM,PORCINE 5,000 UNITS/ML VIAL SQ SCH ×2 (09:17→21:53)
[2021-10-01] MEDS: HYDROGEN PEROXIDE 3% 118 ML BOTTLE TP SCH ×2 (09:37→21:14)
[2021-10-01] MEDS ORDERED: SODIUM HYPOCHLORITE 0.125% (QUARTER STRENGTH) 473 ML BOTTLE TP PRN (16:47)
[2021-10-01] MEDS: ATORVASTATIN 20 MG TABLET GT SCH (21:20)
[2021-10-01] MEDS: MINERAL OIL/PETROLAT OPHT OINT 3.5 GM TUBE EACHEYE SCH (21:20)
[2021-10-01] MEDS: ASCORBIC ACID 500 MG TABLET GT SCH (21:21)
[2021-10-01] MEDS: LORAZEPAM 1 MG TABLET GT PRN (21:21)
[2021-10-01] MEDS: THIAMINE HCL 100 MG TABLET GT SCH (21:21)
[2021-10-02] MEDS: IPRATROPIUM BROMIDE 0.5 MG/2.5 ML NEBU NEB SCH ×4 (00:38→19:00)
[2021-10-02] MEDS: LEVALBUTEROL HCL 1.25 MG/0.5 ML NEB NEB SCH ×4 (00:38→19:00)
[2021-10-02] MEDS: BLOOD SUGAR DIAGNOSTIC 1 EACH STRIP VI SCH ×4 (00:40→17:02)
[2021-10-02] MEDS: INSULIN REGULAR, HUMAN 300 UNIT/3 ML VIAL SQ PRN ×3 (00:46→12:08)
[2021-10-02] MEDS: GLUCERNA 1.2 1000ML LIQUID GT PRN (00:48)
[2021-10-02 00:55] VITALS: BP 139/75
[2021-10-02] MEDS: NUTRISOURCE FIBER 4 GM PACKET GT SCH ×2 (05:27→17:02)
[2021-10-02] MEDS: ARGININE/GLUTAMINE/CALCIUM BMB 1 EACH POWD.PACK GT SCH ×2 (05:27→17:02)
[2021-10-02] MEDS: OMEPRAZOLE 20 MG CAPSULE.DR GT SCH (05:27)
[2021-10-02] MEDS: HYDROGEN PEROXIDE 3% 118 ML BOTTLE TP SCH ×2 (08:34→20:30)
[2021-10-02] MEDS: HYDROCODONE/APAP 5-325MG TABLET GT PRN (09:00)
[2021-10-02] MEDS: ACETAMINOPHEN GT SCH ×2 (09:11→21:25)
[2021-10-02] MEDS: [UNRECOGNIZED DRUG - OTHER] GT SCH ×2 (09:11→21:25)
[2021-10-02] MEDS: AMANTADINE HCL 50 MG/5 ML GT SCH ×2 (09:12→21:26)
[2021-10-02] MEDS: TERAZOSIN 1 MG CAPSULE GT SCH (09:12)
[2021-10-02] MEDS: METOPROLOL TARTRATE 25 MG TABLET GT SCH ×2 (09:12→21:26)
[2021-10-02] MEDS: HEPARIN SODIUM,PORCINE 5,000 UNITS/ML VIAL SQ SCH ×2 (09:12→21:00)
[2021-10-02] MEDS: levETIRAcetam 500 MG/5 ML LIQUID UDC GT SCH ×2 (09:12→21:25)
[2021-10-02] MEDS: PHENOBARBITAL 97.2 MG TABLET GT SCH ×2 (09:12→21:26)
[2021-10-02] MEDS: BACLOFEN 10 MG TABLET GT SCH ×2 (09:12→21:26)
[2021-10-02] MEDS: TRIAMCINOLONE ACET 0.1% CREAM 15 GM TUBE TOP SCH ×2 (09:12→21:29)
[2021-10-02] MEDS: NYSTATIN CREAM 30 GM TUBE TOP SCH ×2 (09:13→21:29)
[2021-10-02] MEDS: COD LIVER OIL/ZINC OXIDE OINT 113 GM TUBE TP SCH ×2 (09:13→21:29)
[2021-10-02] MEDS: SODIUM HYPOCHLORITE 0.125% (QUARTER STRENGTH) 473 ML BOTTLE TP SCH ×2 (09:13→21:29)
[2021-10-02] MEDS: VITAMINS A AND D OINT TP SCH ×2 (09:13→21:29)
[2021-10-02 12:00] VITALS: BP 128/77
--- NOTE | 2021-10-02 15:28 | NUR ---
LATE ENTRY:ON 09/21 PT. MEDICATED WITH ATIVAN ORDERED D/T ESCALATED MUSCLE SPASMS INTERFERING WITH COMFORT AND BREATHING X 2 AND D/T OTHER INTERVENTIONS NOT EFFECTIVE LIKE: PT. BATHED AND REPOSITIONED AND TRACHEAL SUCTIONED DURING 7A -7P SHIFT AND EFFECTIVE.
[2021-10-02 18:06] VITALS: BP 128/84
[2021-10-02] MEDS: MINERAL OIL/PETROLAT OPHT OINT 3.5 GM TUBE EACHEYE SCH (21:25)
[2021-10-02] MEDS: ASCORBIC ACID 500 MG TABLET GT SCH (21:26)
[2021-10-02] MEDS: ATORVASTATIN 20 MG TABLET GT SCH (21:26)
[2021-10-02] MEDS: THIAMINE HCL 100 MG TABLET GT SCH (21:26)
[2021-10-03] MEDS: GLUCERNA 1.2 1000ML LIQUID GT PRN (00:28)
[2021-10-03] MEDS: BLOOD SUGAR DIAGNOSTIC 1 EACH STRIP VI SCH ×4 (00:47→17:05)
[2021-10-03] MEDS: LEVALBUTEROL HCL 1.25 MG/0.5 ML NEB NEB SCH ×4 (00:51→18:57)
[2021-10-03] MEDS: IPRATROPIUM BROMIDE 0.5 MG/2.5 ML NEBU NEB SCH ×4 (00:51→18:57)
[2021-10-03] MEDS: INSULIN REGULAR, HUMAN 300 UNIT/3 ML VIAL SQ PRN ×2 (00:51→12:04)
[2021-10-03 00:54] VITALS: BP 121/67
[2021-10-03] MEDS: NUTRISOURCE FIBER 4 GM PACKET GT SCH ×2 (05:06→17:05)
[2021-10-03] MEDS: ARGININE/GLUTAMINE/CALCIUM BMB 1 EACH POWD.PACK GT SCH ×2 (05:06→17:05)
[2021-10-03] MEDS: OMEPRAZOLE 20 MG CAPSULE.DR GT SCH (05:06)
[2021-10-03 06:39] LABS: HEMATOCRIT 28.7 % (36.7-47.1); MEAN CORPUSCULAR HEMOGLOBIN 27.7 uug (23.8-33.4); PLATELET COUNT (AUTO) 322 K/uL (152-348)
[2021-10-03 06:55] LABS: CARBON DIOXIDE 33 mmol/L (21-32); CHLORIDE 94 mmol/L (98-107); CREATININE 0.5 mg/dL (0.6-1.3); GLUCOSE 115 mg/dL (74-106); PHOSPHOROUS 3.9 mg/dL (2.5-4.9); POTASSIUM 4.3 mmol/L (3.5-5.1); UREA NITROGEN, BLOOD 22 mg/dL (7-18)
[2021-10-03] MEDS: ACETAMINOPHEN GT SCH ×2 (08:27→20:28)
[2021-10-03] MEDS: BACLOFEN 10 MG TABLET GT SCH ×2 (08:27→20:28)
[2021-10-03] MEDS: levETIRAcetam 500 MG/5 ML LIQUID UDC GT SCH ×2 (08:27→20:28)
[2021-10-03] MEDS: [UNRECOGNIZED DRUG - OTHER] GT SCH ×2 (08:27→20:28)
[2021-10-03] MEDS: TERAZOSIN 1 MG CAPSULE GT SCH (08:27)
[2021-10-03] MEDS: METOPROLOL TARTRATE 25 MG TABLET GT SCH ×2 (08:27→20:28)
[2021-10-03] MEDS: PHENOBARBITAL 97.2 MG TABLET GT SCH ×2 (08:27→20:28)
[2021-10-03] MEDS: AMANTADINE HCL 50 MG/5 ML GT SCH ×2 (08:27→20:29)
[2021-10-03] MEDS: NYSTATIN CREAM 30 GM TUBE TOP SCH ×2 (08:28→20:29)
[2021-10-03] MEDS: SODIUM HYPOCHLORITE 0.125% (QUARTER STRENGTH) 473 ML BOTTLE TP SCH ×2 (08:28→20:29)
[2021-10-03] MEDS: COD LIVER OIL/ZINC OXIDE OINT 113 GM TUBE TP SCH ×2 (08:28→20:29)
[2021-10-03] MEDS: TRIAMCINOLONE ACET 0.1% CREAM 15 GM TUBE TOP SCH ×2 (08:28→20:29)
[2021-10-03] MEDS: VITAMINS A AND D OINT TP SCH ×2 (08:28→20:29)
[2021-10-03] MEDS: HEPARIN SODIUM,PORCINE 5,000 UNITS/ML VIAL SQ SCH ×2 (08:28→21:22)
[2021-10-03] MEDS: HYDROGEN PEROXIDE 3% 118 ML BOTTLE TP SCH ×2 (08:32→21:03)
[2021-10-03] MEDS: HYDROCODONE/APAP 5-325MG TABLET GT PRN (09:00)
[2021-10-03 10:56] LABS: NEUTROPHILS % (MANUAL) 0 % (42-75)
--- NOTE | 2021-10-03 14:58 | NUR ---
PT. WAS SEEN AND EXAMINED BY FABY Montoya AND WITH NAMO.
[2021-10-03] MEDS: ATORVASTATIN 20 MG TABLET GT SCH (20:28)
[2021-10-03] MEDS: MINERAL OIL/PETROLAT OPHT OINT 3.5 GM TUBE EACHEYE SCH (20:28)
[2021-10-03] MEDS: THIAMINE HCL 100 MG TABLET GT SCH (20:29)
[2021-10-03] MEDS: ASCORBIC ACID 500 MG TABLET GT SCH (20:29)
[2021-10-04] MEDS: IPRATROPIUM BROMIDE 0.5 MG/2.5 ML NEBU NEB SCH ×4 (00:44→19:29)
[2021-10-04] MEDS: LEVALBUTEROL HCL 1.25 MG/0.5 ML NEB NEB SCH ×4 (00:44→19:29)
[2021-10-04] MEDS: GLUCERNA 1.2 1000ML LIQUID GT PRN ×2 (01:08→23:03)
[2021-10-04] MEDS: INSULIN REGULAR, HUMAN 300 UNIT/3 ML VIAL SQ PRN ×4 (01:10→23:11)
[2021-10-04 01:25] VITALS: BP 124/84
[2021-10-04] MEDS: NUTRISOURCE FIBER 4 GM PACKET GT SCH ×2 (05:03→17:47)
[2021-10-04] MEDS: OMEPRAZOLE 20 MG CAPSULE.DR GT SCH (05:03)
[2021-10-04] MEDS: BLOOD SUGAR DIAGNOSTIC 1 EACH STRIP VI SCH ×5 (05:03→23:02)
[2021-10-04] MEDS: ARGININE/GLUTAMINE/CALCIUM BMB 1 EACH POWD.PACK GT SCH ×2 (05:03→17:47)
[2021-10-04] MEDS: [UNRECOGNIZED DRUG - OTHER] GT SCH ×2 (08:50→20:45)
[2021-10-04] MEDS: ACETAMINOPHEN GT SCH ×2 (08:50→20:45)
[2021-10-04] MEDS: levETIRAcetam 500 MG/5 ML LIQUID UDC GT SCH ×2 (08:50→20:45)
[2021-10-04] MEDS: BACLOFEN 10 MG TABLET GT SCH ×2 (08:50→20:45)
[2021-10-04] MEDS: TERAZOSIN 1 MG CAPSULE GT SCH (08:50)
[2021-10-04] MEDS: METOPROLOL TARTRATE 25 MG TABLET GT SCH (08:51)
[2021-10-04] MEDS: COD LIVER OIL/ZINC OXIDE OINT 113 GM TUBE TP SCH ×2 (08:51→20:49)
[2021-10-04] MEDS: AMANTADINE HCL 50 MG/5 ML GT SCH ×2 (08:51→20:46)
[2021-10-04] MEDS: TRIAMCINOLONE ACET 0.1% CREAM 15 GM TUBE TOP SCH ×2 (08:51→20:49)
[2021-10-04] MEDS: SODIUM HYPOCHLORITE 0.125% (QUARTER STRENGTH) 473 ML BOTTLE TP SCH ×2 (08:51→20:49)
[2021-10-04] MEDS: HEPARIN SODIUM,PORCINE 5,000 UNITS/ML VIAL SQ SCH ×2 (08:51→20:48)
[2021-10-04] MEDS: PHENOBARBITAL 97.2 MG TABLET GT SCH ×2 (08:51→20:46)
[2021-10-04] MEDS: NYSTATIN CREAM 30 GM TUBE TOP SCH ×2 (08:51→20:49)
[2021-10-04] MEDS: VITAMINS A AND D OINT TP SCH ×2 (08:52→20:49)
[2021-10-04] MEDS: HYDROGEN PEROXIDE 3% 118 ML BOTTLE TP SCH ×2 (09:36→21:11)
[2021-10-04 12:17] VITALS: BP 132/78
--- NOTE | 2021-10-04 13:51 | NUR ---
INTERDISCIPLINARY PLAN OF CARE CONFERENCE was held today. Pts daughter Janis, was not available to participate in the meeting today. Dr. Peralta and the Interdisciplinary Team reviewed the current plan of care in detail. RN reported on pt's medical condition and noted treatment on sacral area will continue. Per pharmacy, they will be monitoring patients blood pressure as it has been at 150 or above. See RN IDT conference notes. No major changes in patient's current condition were reported by nursing or by any of the other disciplines. See all other disciplines IDT notes and physician's progress notes for additional details.
[2021-10-04] MEDS: HYDROCODONE/APAP 5-325MG TABLET GT PRN (17:46)
[2021-10-04 18:10] VITALS: BP 138/83
[2021-10-04] MEDS: MINERAL OIL/PETROLAT OPHT OINT 3.5 GM TUBE EACHEYE SCH (20:45)
[2021-10-04] MEDS: METOPROLOL TARTRATE 50 MG TABLET GT SCH (20:46)
[2021-10-04] MEDS: ATORVASTATIN 20 MG TABLET GT SCH (20:46)
[2021-10-04] MEDS: THIAMINE HCL 100 MG TABLET GT SCH (20:47)
[2021-10-04] MEDS: ASCORBIC ACID 500 MG TABLET GT SCH (20:48)
[2021-10-05] VITALS: BP 136/79
[2021-10-05] MEDS: LEVALBUTEROL HCL 1.25 MG/0.5 ML NEB NEB SCH ×4 (01:08→19:27)
[2021-10-05] MEDS: IPRATROPIUM BROMIDE 0.5 MG/2.5 ML NEBU NEB SCH ×4 (01:08→19:27)
--- NOTE | 2021-10-05 03:37 | NUR ---
Will do Covid test weekly per [facility]'s requirement.
--- NOTE | 2021-10-05 05:00 | NUR ---
Noted patient biting his lower lip, noted with lower lip tear during mouth care, no bleeding noted. Cleanse lower lip and initiated in- house treatment, kept clean and comfortable, on seizure precaution, will continue monitor.
[2021-10-05] MEDS: ARGININE/GLUTAMINE/CALCIUM BMB 1 EACH POWD.PACK GT SCH ×2 (05:18→17:05)
[2021-10-05] MEDS: OMEPRAZOLE 20 MG CAPSULE.DR GT SCH (05:18)
[2021-10-05] MEDS: NUTRISOURCE FIBER 4 GM PACKET GT SCH ×2 (05:18→17:05)
[2021-10-05] MEDS: BLOOD SUGAR DIAGNOSTIC 1 EACH STRIP VI SCH ×3 (05:18→17:42)
[2021-10-05] MEDS: NEOMY/BACITRAC/POLYMI OINT 28.35 GM TUBE TOP SCH ×3 (05:28→20:40)
[2021-10-05 06:05] VITALS: BP 141/84
[2021-10-05] MEDS: HYDROGEN PEROXIDE 3% 118 ML BOTTLE TP SCH ×2 (08:09→21:26)
[2021-10-05] MEDS: ACETAMINOPHEN GT SCH ×2 (08:25→20:28)
[2021-10-05] MEDS: [UNRECOGNIZED DRUG - OTHER] GT SCH ×2 (08:25→20:28)
[2021-10-05] MEDS: TERAZOSIN 1 MG CAPSULE GT SCH (08:26)
[2021-10-05] MEDS: BACLOFEN 10 MG TABLET GT SCH ×2 (08:26→20:30)
[2021-10-05] MEDS: levETIRAcetam 500 MG/5 ML LIQUID UDC GT SCH ×2 (08:26→20:29)
[2021-10-05] MEDS: METOPROLOL TARTRATE 50 MG TABLET GT SCH ×2 (08:27→20:31)
[2021-10-05] MEDS: PHENOBARBITAL 97.2 MG TABLET GT SCH ×2 (08:27→20:36)
[2021-10-05] MEDS: AMANTADINE HCL 50 MG/5 ML GT SCH ×2 (08:27→20:36)
[2021-10-05] MEDS: TRIAMCINOLONE ACET 0.1% CREAM 15 GM TUBE TOP SCH ×2 (08:33→20:40)
[2021-10-05] MEDS: HEPARIN SODIUM,PORCINE 5,000 UNITS/ML VIAL SQ SCH ×2 (08:33→20:38)
[2021-10-05] MEDS: COD LIVER OIL/ZINC OXIDE OINT 113 GM TUBE TP SCH ×2 (08:34→20:40)
[2021-10-05] MEDS: SODIUM HYPOCHLORITE 0.125% (QUARTER STRENGTH) 473 ML BOTTLE TP SCH ×2 (08:34→20:40)
[2021-10-05] MEDS: VITAMINS A AND D OINT TP SCH ×2 (08:34→20:40)
[2021-10-05] MEDS: NYSTATIN CREAM 30 GM TUBE TOP SCH ×2 (08:34→20:40)
[2021-10-05] MEDS: INSULIN REGULAR, HUMAN 300 UNIT/3 ML VIAL SQ PRN ×2 (12:00→17:43)
[2021-10-05 12:12] VITALS: BP 138/77
[2021-10-05] MEDS: HYDROCODONE/APAP 5-325MG TABLET GT PRN (17:08)
--- NOTE | 2021-10-05 18:00 | NUR ---
Covid 19 test done as per [facility] requirement.responsible [employer] notified.Seen and examined by Dr Peralta,with new orders noted and carried out.
[2021-10-05 18:10] VITALS: BP 129/75
[2021-10-05] MEDS: MINERAL OIL/PETROLAT OPHT OINT 3.5 GM TUBE EACHEYE SCH (20:29)
[2021-10-05] MEDS: ATORVASTATIN 20 MG TABLET GT SCH (20:30)
[2021-10-05] MEDS: THIAMINE HCL 100 MG TABLET GT SCH (20:37)
[2021-10-05] MEDS: ASCORBIC ACID 500 MG TABLET GT SCH (20:37)
[2021-10-05] MEDS: GLUCERNA 1.2 1000ML LIQUID GT PRN (20:48)
[2021-10-06] VITALS: BP 134/86
[2021-10-06] MEDS: BLOOD SUGAR DIAGNOSTIC 1 EACH STRIP VI SCH ×4 (00:41→17:22)
[2021-10-06] MEDS: INSULIN REGULAR, HUMAN 300 UNIT/3 ML VIAL SQ PRN ×4 (00:42→17:23)
[2021-10-06] MEDS: LEVALBUTEROL HCL 1.25 MG/0.5 ML NEB NEB SCH ×4 (01:18→19:01)
[2021-10-06] MEDS: IPRATROPIUM BROMIDE 0.5 MG/2.5 ML NEBU NEB SCH ×4 (01:18→19:01)
[2021-10-06] MEDS: NUTRISOURCE FIBER 4 GM PACKET GT SCH ×2 (05:52→17:22)
[2021-10-06] MEDS: OMEPRAZOLE 20 MG CAPSULE.DR GT SCH (05:52)
[2021-10-06] MEDS: ARGININE/GLUTAMINE/CALCIUM BMB 1 EACH POWD.PACK GT SCH ×2 (05:52→17:21)
[2021-10-06 06:26] VITALS: BP 143/76
[2021-10-06] MEDS: HYDROGEN PEROXIDE 3% 118 ML BOTTLE TP SCH ×2 (07:50→19:01)
[2021-10-06] MEDS: [UNRECOGNIZED DRUG - OTHER] GT SCH ×2 (08:41→20:14)
[2021-10-06] MEDS: ACETAMINOPHEN GT SCH ×2 (08:41→20:14)
[2021-10-06] MEDS: TERAZOSIN 1 MG CAPSULE GT SCH (08:43)
[2021-10-06] MEDS: levETIRAcetam 500 MG/5 ML LIQUID UDC GT SCH ×2 (08:44→20:16)
[2021-10-06] MEDS: METOPROLOL TARTRATE 50 MG TABLET GT SCH ×2 (08:45→20:17)
[2021-10-06] MEDS: BACLOFEN 10 MG TABLET GT SCH ×2 (08:45→20:17)
[2021-10-06] MEDS: PHENOBARBITAL 97.2 MG TABLET GT SCH ×2 (08:47→20:17)
[2021-10-06] MEDS: AMANTADINE HCL 50 MG/5 ML GT SCH ×2 (08:47→20:17)
[2021-10-06] MEDS: TRIAMCINOLONE ACET 0.1% CREAM 15 GM TUBE TOP SCH ×2 (08:49→20:18)
[2021-10-06] MEDS: SODIUM HYPOCHLORITE 0.125% (QUARTER STRENGTH) 473 ML BOTTLE TP SCH ×2 (08:50→20:18)
[2021-10-06] MEDS: COD LIVER OIL/ZINC OXIDE OINT 113 GM TUBE TP SCH ×2 (08:50→20:19)
[2021-10-06] MEDS: NYSTATIN CREAM 30 GM TUBE TOP SCH ×2 (08:50→20:18)
[2021-10-06] MEDS: NEOMY/BACITRAC/POLYMI OINT 28.35 GM TUBE TOP SCH ×2 (08:50→20:18)
[2021-10-06] MEDS: HEPARIN SODIUM,PORCINE 5,000 UNITS/ML VIAL SQ SCH ×2 (08:51→20:15)
[2021-10-06] MEDS: VITAMINS A AND D OINT TP SCH ×2 (08:51→20:19)
[2021-10-06 12:00] VITALS: BP 145/59
[2021-10-06] MEDS: GLUCERNA 1.2 1000ML LIQUID GT PRN (17:44)
[2021-10-06 18:16] VITALS: BP 128/77
[2021-10-06] MEDS: MINERAL OIL/PETROLAT OPHT OINT 3.5 GM TUBE EACHEYE SCH (20:16)
[2021-10-06] MEDS: ATORVASTATIN 20 MG TABLET GT SCH (20:17)
[2021-10-06] MEDS: ASCORBIC ACID 500 MG TABLET GT SCH (20:18)
[2021-10-06] MEDS: THIAMINE HCL 100 MG TABLET GT SCH (20:18)
[2021-10-06] MEDS: ONDANSETRON HCL 4 MG TABLET GT PRN (23:00)
[2021-10-07 00:18] VITALS: BP 146/74
[2021-10-07] MEDS: BLOOD SUGAR DIAGNOSTIC 1 EACH STRIP VI SCH ×5 (00:19→23:10)
[2021-10-07] MEDS: INSULIN REGULAR, HUMAN 300 UNIT/3 ML VIAL SQ PRN ×5 (00:20→23:11)
[2021-10-07] MEDS: LEVALBUTEROL HCL 1.25 MG/0.5 ML NEB NEB SCH ×4 (00:45→19:23)
[2021-10-07] MEDS: IPRATROPIUM BROMIDE 0.5 MG/2.5 ML NEBU NEB SCH ×4 (00:45→19:22)
[2021-10-07] MEDS: LORAZEPAM 1 MG TABLET GT PRN (05:00)
[2021-10-07] MEDS: NUTRISOURCE FIBER 4 GM PACKET GT SCH ×2 (05:14→17:10)
[2021-10-07] MEDS: ARGININE/GLUTAMINE/CALCIUM BMB 1 EACH POWD.PACK GT SCH ×2 (05:14→17:09)
[2021-10-07] MEDS: OMEPRAZOLE 20 MG CAPSULE.DR GT SCH (05:14)
[2021-10-07] MEDS: HYDROCODONE/APAP 5-325MG TABLET GT PRN (06:00)
[2021-10-07] MEDS: HYDROGEN PEROXIDE 3% 118 ML BOTTLE TP SCH ×2 (08:21→21:09)
[2021-10-07] MEDS: TERAZOSIN 1 MG CAPSULE GT SCH (08:45)
[2021-10-07] MEDS: ACETAMINOPHEN GT SCH ×2 (08:45→20:51)
[2021-10-07] MEDS: [UNRECOGNIZED DRUG - OTHER] GT SCH ×2 (08:45→20:51)
[2021-10-07] MEDS: BACLOFEN 10 MG TABLET GT SCH ×2 (08:46→20:51)
[2021-10-07] MEDS: levETIRAcetam 500 MG/5 ML LIQUID UDC GT SCH ×2 (08:46→20:51)
[2021-10-07] MEDS: PHENOBARBITAL 97.2 MG TABLET GT SCH ×2 (08:47→20:52)
[2021-10-07] MEDS: NYSTATIN CREAM 30 GM TUBE TOP SCH ×2 (08:47→21:24)
[2021-10-07] MEDS: AMANTADINE HCL 50 MG/5 ML GT SCH ×2 (08:47→20:52)
[2021-10-07] MEDS: METOPROLOL TARTRATE 50 MG TABLET GT SCH ×2 (08:47→20:52)
[2021-10-07] MEDS: TRIAMCINOLONE ACET 0.1% CREAM 15 GM TUBE TOP SCH ×2 (08:47→21:24)
[2021-10-07] MEDS: SODIUM HYPOCHLORITE 0.125% (QUARTER STRENGTH) 473 ML BOTTLE TP SCH ×2 (08:48→21:24)
[2021-10-07] MEDS: NEOMY/BACITRAC/POLYMI OINT 28.35 GM TUBE TOP SCH ×2 (08:48→21:24)
[2021-10-07] MEDS: HEPARIN SODIUM,PORCINE 5,000 UNITS/ML VIAL SQ SCH ×2 (08:48→21:23)
[2021-10-07] MEDS: COD LIVER OIL/ZINC OXIDE OINT 113 GM TUBE TP SCH ×2 (08:48→21:24)
[2021-10-07] MEDS: VITAMINS A AND D OINT TP SCH ×2 (08:48→21:24)
[2021-10-07 12:00] VITALS: BP 128/78
[2021-10-07] MEDS: GLUCERNA 1.2 1000ML LIQUID GT PRN (12:53)
[2021-10-07 18:33] VITALS: BP 143/75
[2021-10-07] MEDS: MINERAL OIL/PETROLAT OPHT OINT 3.5 GM TUBE EACHEYE SCH (20:51)
[2021-10-07] MEDS: ATORVASTATIN 20 MG TABLET GT SCH (20:51)
[2021-10-07] MEDS: THIAMINE HCL 100 MG TABLET GT SCH (20:52)
[2021-10-07] MEDS: ASCORBIC ACID 500 MG TABLET GT SCH (20:52)
[2021-10-08 00:04] VITALS: BP 130/82
[2021-10-08] MEDS: IPRATROPIUM BROMIDE 0.5 MG/2.5 ML NEBU NEB SCH ×4 (01:13→19:23)
[2021-10-08] MEDS: LEVALBUTEROL HCL 1.25 MG/0.5 ML NEB NEB SCH ×4 (01:13→19:23)
[2021-10-08] MEDS: NUTRISOURCE FIBER 4 GM PACKET GT SCH ×2 (05:25→17:15)
[2021-10-08] MEDS: INSULIN REGULAR, HUMAN 300 UNIT/3 ML VIAL SQ PRN ×4 (05:25→23:22)
[2021-10-08] MEDS: ARGININE/GLUTAMINE/CALCIUM BMB 1 EACH POWD.PACK GT SCH ×2 (05:25→17:15)
[2021-10-08] MEDS: BLOOD SUGAR DIAGNOSTIC 1 EACH STRIP VI SCH ×4 (05:25→23:17)
[2021-10-08] MEDS: OMEPRAZOLE 20 MG CAPSULE.DR GT SCH (05:25)
[2021-10-08] MEDS: TERAZOSIN 1 MG CAPSULE GT SCH (08:36)
[2021-10-08] MEDS: AMANTADINE HCL 50 MG/5 ML GT SCH ×2 (08:38→20:59)
[2021-10-08] MEDS: BACLOFEN 10 MG TABLET GT SCH ×2 (08:38→20:57)
[2021-10-08] MEDS: levETIRAcetam 500 MG/5 ML LIQUID UDC GT SCH ×2 (08:38→20:56)
[2021-10-08] MEDS: PHENOBARBITAL 97.2 MG TABLET GT SCH ×2 (08:38→20:59)
[2021-10-08] MEDS: METOPROLOL TARTRATE 50 MG TABLET GT SCH ×2 (08:38→20:59)
[2021-10-08] MEDS: NYSTATIN CREAM 30 GM TUBE TOP SCH ×2 (08:39→21:42)
[2021-10-08] MEDS: COD LIVER OIL/ZINC OXIDE OINT 113 GM TUBE TP SCH ×2 (08:39→21:42)
[2021-10-08] MEDS: SODIUM HYPOCHLORITE 0.125% (QUARTER STRENGTH) 473 ML BOTTLE TP SCH ×2 (08:39→21:42)
[2021-10-08] MEDS: VITAMINS A AND D OINT TP SCH ×2 (08:39→21:42)
[2021-10-08] MEDS: TRIAMCINOLONE ACET 0.1% CREAM 15 GM TUBE TOP SCH ×2 (08:39→21:42)
[2021-10-08] MEDS: NEOMY/BACITRAC/POLYMI OINT 28.35 GM TUBE TOP SCH ×2 (08:39→21:42)
[2021-10-08] MEDS: HEPARIN SODIUM,PORCINE 5,000 UNITS/ML VIAL SQ SCH ×2 (08:40→21:40)
[2021-10-08] MEDS: [UNRECOGNIZED DRUG - OTHER] GT SCH ×2 (08:41→20:56)
[2021-10-08] MEDS: ACETAMINOPHEN GT SCH ×2 (08:41→20:56)
[2021-10-08] MEDS: HYDROGEN PEROXIDE 3% 118 ML BOTTLE TP SCH ×2 (09:40→21:17)
[2021-10-08] MEDS: GLUCERNA 1.2 1000ML LIQUID GT PRN (11:02)
[2021-10-08 12:00] VITALS: BP 128/79
[2021-10-08 18:00] VITALS: BP 134/72
[2021-10-08] MEDS: MINERAL OIL/PETROLAT OPHT OINT 3.5 GM TUBE EACHEYE SCH (20:56)
[2021-10-08] MEDS: ATORVASTATIN 20 MG TABLET GT SCH (20:57)
[2021-10-08] MEDS: THIAMINE HCL 100 MG TABLET GT SCH (20:59)
[2021-10-08] MEDS: ASCORBIC ACID 500 MG TABLET GT SCH (20:59)
[2021-10-09 00:01] VITALS: BP 121/74
[2021-10-09] MEDS: IPRATROPIUM BROMIDE 0.5 MG/2.5 ML NEBU NEB SCH (00:57)
[2021-10-09] MEDS: LEVALBUTEROL HCL 1.25 MG/0.5 ML NEB NEB SCH (00:57)
[2021-10-09] MEDS: LORAZEPAM 1 MG TABLET GT PRN (03:59)
[2021-10-09] MEDS: NUTRISOURCE FIBER 4 GM PACKET GT SCH (05:00)
[2021-10-09] MEDS: ARGININE/GLUTAMINE/CALCIUM BMB 1 EACH POWD.PACK GT SCH (05:00)
[2021-10-09] MEDS: OMEPRAZOLE 20 MG CAPSULE.DR GT SCH (05:00)
[2021-10-09] MEDS: BLOOD SUGAR DIAGNOSTIC 1 EACH STRIP VI SCH (05:25)
--- NOTE | 2021-10-09 05:30 | NUR ---
Patient received Ativan PRN Via GT at 0400 AM for muscle spasm. continue monitoring the patient for effectiveness, Nurse went to check on the patient and found patient lying in bed in his room noted skin color Pale, vital signs taken noted B/P 77/56, Heart rate fluctuating 46 to 50 with irregular rate rhythm, O2 saturation noted 90 to 92 Respiration 24. Rescue breathing given by Ambu bag by RN/RT. Accu check done blood sugar 233mg/dl Rapid response called. polymer specialist Dr. MINDY James made aware by phone received New order to Transfer patient to ER for further evaluation. Nursing pilot supervisor aware of the situation. Addendum: 10/09/21 at 0718 by SIM DOMINGUEZ RN Called daughter Jesse Bruce notified patient transfer to ER for further evaluation due to low blood pressure.
--- NOTE | 2021-10-09 06:00 | NUR ---
Order carried out transfer patient immediately with unstable Vital signs.
--- NOTE | 2021-10-09 07:18 | NUR ---
Called daughter Jesse Bruce notified regarding father status, Patient transfer to ER for further evaluation.
[2021-10-09] MEDS: INSULIN REGULAR, HUMAN 300 UNIT/3 ML VIAL SQ PRN (07:37)
[2021-10-09] MEDS ORDERED: [UNRECOGNIZED DRUG - CODE] SQ (08:05)
[2021-10-09] MEDS ORDERED: BACL10TA PO (08:05)
[2021-10-09] MEDS ORDERED: OMEP20TA20 PO (08:05)
[2021-10-09] MEDS ORDERED: HYDR-3972 GT (08:05)
[2021-10-09] MEDS ORDERED: DEXT50VI3 IV (08:05)
[2021-10-09] MEDS ORDERED: HYDR237S13 TP (08:05)
== END 2021-10-10 02:40 | disposition short-term general hospital (02) | DRG 951 ==
LOC: SA 18:26
PROVIDERS: ADMIT Internal Medicine; ATTEND Internal Medicine
PROC: 0KBP0ZZ Excision of Left Hip Muscle, Open Approach (ICD-10-PCS; principal; 2021-07-07)
PROC: 0KBN0ZZ Excision of Right Hip Muscle, Open Approach (ICD-10-PCS; principal; 2021-07-07)
PROC: 5A1935Z Respiratory Ventilation, Less than 24 Consecutive Hours (ICD-10-PCS; 2021-07-13)
PROC: 0KBN0ZZ Excision of Right Hip Muscle, Open Approach (ICD-10-PCS; 2021-08-04)
PROC: 0KBP0ZZ Excision of Left Hip Muscle, Open Approach (ICD-10-PCS; 2021-08-04)
PROC: 0KBP0ZZ Excision of Left Hip Muscle, Open Approach (ICD-10-PCS; 2021-09-01)
PROC: 0KBN0ZZ Excision of Right Hip Muscle, Open Approach (ICD-10-PCS; 2021-09-01)
PROC: 5A1935Z Respiratory Ventilation, Less than 24 Consecutive Hours (ICD-10-PCS; 2021-09-02)
PROC: 5A1935Z Respiratory Ventilation, Less than 24 Consecutive Hours (ICD-10-PCS; 2021-09-04)
PROC: 5A1935Z Respiratory Ventilation, Less than 24 Consecutive Hours (ICD-10-PCS; 2021-09-05)
PROC: 5A1935Z Respiratory Ventilation, Less than 24 Consecutive Hours (ICD-10-PCS; 2021-09-06)
PROC: 0KBP0ZZ Excision of Left Hip Muscle, Open Approach (ICD-10-PCS; 2021-09-29)
PROC: 0KBN0ZZ Excision of Right Hip Muscle, Open Approach (ICD-10-PCS; 2021-09-29)
DX: J96.21 Acute and chronic respiratory failure with hypoxia (principal); L89.154 Pressure ulcer of sacral region, stage 4; E43 Unspecified severe protein-calorie malnutrition; G93.1 Anoxic brain damage, not elsewhere classified; D68.59 Other primary thrombophilia; E11.69 Type 2 diabetes mellitus with other specified complication; M46.28 Osteomyelitis of vertebra, sacral and sacrococcygeal region; K92.2 Gastrointestinal hemorrhage, unspecified; D64.9 Anemia, unspecified; Z86.74 Personal history of sudden cardiac arrest; J96.22 Acute and chronic respiratory failure with hypercapnia; E78.5 Hyperlipidemia, unspecified; I48.0 Paroxysmal atrial fibrillation; Z87.440 Personal history of urinary (tract) infections; G40.909 Epilepsy, unspecified, not intractable, without status epilepticus; I10 Essential (primary) hypertension; G93.9 Disorder of brain, unspecified; I70.0 Atherosclerosis of aorta; J44.9 Chronic obstructive pulmonary disease, unspecified; K21.00 Gastro-esophageal reflux disease with esophagitis, without bleeding; K29.70 Gastritis, unspecified, without bleeding; Z20.822 Contact with and (suspected) exposure to COVID-19; R13.10 Dysphagia, unspecified; Z22.322 Carrier or suspected carrier of Methicillin resistant Staphylococcus aureus; Z86.73 Personal history of transient ischemic attack (TIA), and cerebral infarction without residual deficits; Z87.891 Personal history of nicotine dependence; Z88.5 Allergy status to narcotic agent; Z93.0 Tracheostomy status
CPT/HCPCS: 36415; 36600; 70030-TC; 71045; 74018; 83605; 83735; 84100; 85025; 87040; 94002; 94003; 94640; 94664; 97161; A4663; A6209; J0692; J1644; J1650; J1815; J2920; J3370; J3490; J3590; J7030; J7060; J7512; Q0162; Q9963; U0003

== ENCOUNTER 2021-08-05 08:11 | Inpatient (IN) | payer MEDICAID ==
[~2021-08-05] VITALS: Ht 160 cm; Wt 55.3 kg
[~2021-08-05 08:11] MED LIST changes: -MERREM IV; -VANC750F2 IV
--- NOTE | 2021-08-05 08:12 | NUR ---
Patient brought from sub acute floor for respiratory distress, Md at bedside for assessment
[2021-08-05] MEDS ORDERED: LORAZEPAM 2 MG/1 ML VIAL IV ONE ×2 (08:30→11:15)
[2021-08-05] MEDS ORDERED: IV NORMAL SALINE 1000 ML BAG IV ONE (08:30)
[2021-08-05] MEDS ORDERED: LORAZEPAM 2 MG/1 ML VIAL ONE ×2 (08:31→11:22)
[2021-08-05 08:42] LABS: HEMATOCRIT 36.7 % (36.7-47.1); MEAN CORPUSCULAR HEMOGLOBIN 29.3 uug (23.8-33.4); MEAN CORPUSCULAR VOLUME 88.5 fL (73.0-96.2); PLATELET COUNT (AUTO) 371 K/uL (152-348)
--- NOTE | 2021-08-05 08:42 | NUR ---
Patient appears more relaxed at this time after first IV dose of ativan
--- NOTE | 2021-08-05 08:42 | NUR ---
radiology noted at bedside for chest x-ray
[2021-08-05 09:03] LABS: CARBON DIOXIDE 27 mmol/L (21-32); CHLORIDE 95 mmol/L (98-107); CREATININE 0.6 mg/dL (0.6-1.3); GLUCOSE 189 mg/dL (74-106); POTASSIUM 4.5 mmol/L (3.5-5.1); UREA NITROGEN, BLOOD 37 mg/dL (7-18)
[2021-08-05 09:08] LABS: ALANINE AMINOTRANSFERASE 34 U/L (16-63); ALKALINE PHOSPHATASE 217 U/L (50-136); ASPARTATE AMINOTRANSFERASE 16 U/L (15-37); BILIRUBIN,DIRECT 0.1 mg/dL (0.0-0.2); BILIRUBIN,TOTAL 0.3 mg/dL (0.2-1.0); TOTAL PROTEIN, SERUM 8.5 g/dL (6.4-8.2)
[2021-08-05] MEDS ORDERED: IV NORMAL SALINE 250 ML IV ONE (09:11)
[2021-08-05] MEDS ORDERED: IOHEXOL 350 100 ML INFUS..BTL ONE (09:11)
[2021-08-05] MEDS ORDERED: SWABABLE VALVE TRANSFER SET EA MC ONE (09:11)
[2021-08-05] MEDS ORDERED: ACET-73 GT ×2 (09:30)
[2021-08-05] MEDS ORDERED: DEXT50VI3 IV (09:30)
[2021-08-05] MEDS ORDERED: ZINC57OI3 TP (09:30)
[2021-08-05] MEDS ORDERED: WHEAT DEXTRIN GT (09:30)
[2021-08-05] MEDS ORDERED: POLY15DR27 EACHEYE (09:30)
[2021-08-05] MEDS ORDERED: BLOO-668 VI (09:30)
[2021-08-05] MEDS ORDERED: SODI480S2 TP (09:30)
[2021-08-05] MEDS ORDERED: LEVA1.2528 NEB ×2 (09:30)
[2021-08-05] MEDS ORDERED: NYST15CR TP (09:30)
[2021-08-05] MEDS ORDERED: NEOM1OIN19 TP (09:30)
[2021-08-05] MEDS ORDERED: ACET-2154 GT (09:30)
[2021-08-05] MEDS ORDERED: PRED20TA GT (09:30)
[2021-08-05] MEDS ORDERED: [UNRECOGNIZED DRUG - OTHER] EACHEYE (09:30)
--- NOTE | 2021-08-05 10:48 | NUR ---
ETA FOR MIDLINE ONE HOUR PER WILD OYSTER HARVESTER
[2021-08-05 11:02] LABS: ABG BASE EXCESS 1.2 mmol/L; ABG HCO3 26.3 mmol/L; ABG PCO2 43.6 mmHg (35.0-45.0); ABG PH 7.399 (7.350-7.450); ABG PO2 63.5 mmHg (75.0-100.0); ABG SITE LEFT RADIAL; ABG TOTAL HEMOGLOBIN 12.8 G/dL (13.5-18.0); COHb 0.9 % (0.5-1.5); MetHb 0.1 % (0.0-1.5); O2Hb 90.2 % (94.0-97.0)
--- NOTE | 2021-08-05 11:17 | NUR ---
Patient being transferred to radiology for CTA of chest at this time
[2021-08-05] MEDS ORDERED: VANCOMYCIN IV 1,000 MG in IV DEXTROSE 5% 250 ML IV ONE (12:30)
[2021-08-05] MEDS ORDERED: IV NORMAL SALINE 100 ML BAG IV ONE (12:30)
[2021-08-05] MEDS ORDERED: PIPERACILLIN SODIUM/TAZOBACTAM 3.375 G in IV DEXTROSE 5% 50 ML IV ONE (12:30)
--- NOTE | 2021-08-05 12:46 | NUR ---
Gamal flores paged for panel call
[2021-08-05] MEDS ORDERED: PIPERACILLIN/TAZOBACTAM/D5W 50 ML IV ONE (12:47)
[2021-08-05] MEDS ORDERED: VANCOMYCIN IV 200 ML ONE (12:48)
[2021-08-05 13:08] LABS: ABG BASE EXCESS -0.6 mmol/L; ABG HCO3 25.5 mmol/L; ABG PCO2 47.8 mmHg (35.0-45.0); ABG PH 7.345 (7.350-7.450); ABG PO2 319.1 mmHg (75.0-100.0); ABG SITE LEFT RADIAL; ABG TOTAL HEMOGLOBIN 12.3 G/dL (13.5-18.0); COHb 0.5 % (0.5-1.5); MetHb 0.3 % (0.0-1.5); O2Hb 99.2 % (94.0-97.0); VENT MODE VENT - A/C; VT, ABG 450 mL
--- NOTE | 2021-08-05 13:20 | NUR ---
Per pt may be admitted to [facility], spoke with nursing supervisor dairy sanitation who said to call 3rd floor for [facility] bed assignment. Spoke with charge nurse on 3rd floor who stated she will call back.
--- NOTE | 2021-08-05 13:45 | NUR ---
Report given to jacobo TAPIA, patient to go to room 308
--- NOTE | 2021-08-05 15:00 | NUR ---
Patient transfer to [facility] room 308 for respiratory failure, TOUR SALES REPRESENTATIVE sandra is the accepting, patient transfered with respiratory
--- NOTE | 2021-08-05 15:10 | NUR ---
ADMITTED PATIENT FROM VIA ER WITH DX OF ACUTE HYPOXIC ON CHRONIC RESPIRATORY FAILURE CONNECTED TO VENTILATOR ON A VENT SETTINGS AT 20-450-40%. NO SS OF RESPIRATORY DISTRESS SATURATING 99%. INITIAL ADMISSION INITIATED AND NOTED TUNNELING SACRAL WOUND. TREATMENT DONE. SINUS WITH BBB ON MONITOR. WILL NOTIFY HOSPITALIST OF ADMISSION
[2021-08-05] MEDS ORDERED: MAGNESIUM HYDROXIDE 30 ML LIQUID UDC PO PRN (15:30)
[2021-08-05] MEDS ORDERED: ONDANSETRON 4 MG/2 ML VIAL IV PRN (15:30)
[2021-08-05] MEDS ORDERED: Z GUARD REMEDY PASTE 57 GM TUBE TOP PRN (15:30)
[2021-08-05] MEDS ORDERED: ACETAMINOPHEN 650 MG SUPP.RECT RC PRN (15:30)
[2021-08-05] MEDS ORDERED: LORAZEPAM 1 MG TABLET GT PRN (15:45)
[2021-08-05] MEDS ORDERED: POLYVINYL ALCOHOL OPHT DROPS 15 ML BOTTLE EACHEYE PRN (15:45)
[2021-08-05] MEDS ORDERED: GUAIFENESIN 200 MG GT SCH (15:45)
[2021-08-05] MEDS ORDERED: ACETAMINOPHEN ES 500 MG TABLET GT PRN (15:45)
[2021-08-05] MEDS ORDERED: DOCUSATE SODIUM 100 MG CAPSULE PO PRN (15:45)
[2021-08-05 16:00] VITALS: BP 148/96
[2021-08-05] MEDS ORDERED: MAGNESIUM HYDROXIDE 30 ML LIQUID UDC GT PRN (16:02)
[2021-08-05] MEDS: ENOXAPARIN SODIUM 40 MG/0.4 ML DISP.SYRIN SQ SCH (16:09)
[2021-08-05] MEDS ORDERED: GUAIFENESIN SUGAR FREE 100 MG/5 ML UDC GT PRN (16:15)
[2021-08-05] MEDS ORDERED: INSULIN REGULAR, HUMAN 300 UNIT/3 ML VIAL SQ PRN (16:30)
[2021-08-05] MEDS ORDERED: BLOOD SUGAR DIAGNOSTIC 1 EACH STRIP VI SCH (16:30)
[2021-08-05] MEDS ORDERED: DEXTROSE 50% 50 ML DISP.SYRIN IV PRN ×2 (16:30→18:00)
[2021-08-05] MEDS ORDERED: GLUCERNA 1.2 1000ML LIQUID GT PRN (16:45)
[2021-08-05] MEDS ORDERED: WHEAT DEXTRIN GT SCH (17:00)
[2021-08-05] MEDS: ACETAMINOPHEN 325 MG TABLET GT SCH (17:22)
[2021-08-05] MEDS: GLUCERNA 1.2 1000ML LIQUID GT PRN (17:22)
[2021-08-05] MEDS: NUTRISOURCE FIBER 4 GM PACKET GT SCH (17:22)
[2021-08-05] MEDS: ARGININE/GLUTAMINE/CALCIUM BMB 1 EACH POWD.PACK GT SCH (17:23)
[2021-08-05] MEDS ORDERED: methylPREDNISolone SOD SUCC 40 MG/ML VIAL IV SCH (17:30)
[2021-08-05] MEDS ORDERED: GLUTAMINE GT SCH (18:00)
[2021-08-05] MEDS ORDERED: ARGININE GT SCH (18:00)
[2021-08-05] MEDS: INSULIN REGULAR, HUMAN 300 UNIT/3 ML VIAL SQ PRN ×2 (18:04→23:59)
[2021-08-05] MEDS: CEFEPIME HCL 1 G in IV DEXTROSE 5% 50 ML IV SCH (18:09)
[2021-08-05] MEDS: BLOOD SUGAR DIAGNOSTIC 1 EACH STRIP VI SCH ×2 (18:10→23:54)
[2021-08-05] MEDS: methylPREDNISolone SOD SUCC 40 MG/ML VIAL IV SCH (18:31)
--- NOTE | 2021-08-05 19:00 | NUR ---
Patient eyes open, hob elevated, no s/s of sob, no s/s of chest pain, on gtf tolerate well no nausea no vomiting noted, on vent tolerate well no desaturation noted, turn and reposition, thomas cat patent, cont to monitor.
[2021-08-05] MEDS: LEVALBUTEROL HCL 1.25 MG/0.5 ML NEB IH SCH (19:29)
[2021-08-05] MEDS: IPRATROPIUM BROMIDE 0.5 MG/2.5 ML NEBU NEB SCH (19:29)
[2021-08-05] MEDS ORDERED: IPRATROPIUM BROMIDE 0.5 MG/2.5 ML NEBU NEB SCH (19:30)
[2021-08-05 20:00] VITALS: BP 144/96
[2021-08-05] MEDS: PHENOBARBITAL 32.4 MG TABLET GT SCH (20:23)
[2021-08-05] MEDS: ATORVASTATIN 40 MG TABLET GT SCH (20:23)
[2021-08-05] MEDS: levETIRAcetam 500 MG/5 ML LIQUID UDC GT SCH (20:23)
[2021-08-05] MEDS: THIAMINE HCL 100 MG TABLET GT SCH (20:24)
[2021-08-05] MEDS: ASCORBIC ACID 500 MG TABLET GT SCH (20:24)
[2021-08-05] MEDS: BACLOFEN 10 MG TABLET GT SCH (20:24)
[2021-08-05] MEDS: METOPROLOL TARTRATE 25 MG TABLET GT SCH (20:25)
[2021-08-05] MEDS: AMANTADINE HCL 100 MG CAPSULE GT SCH (20:26)
[2021-08-05] MEDS: hydrALAZINE HCL 25 MG TABLET GT SCH (20:30)
[2021-08-05] MEDS ORDERED: hydrALAZINE HCL 25 MG TABLET GT SCH (21:00)
[2021-08-05] MEDS ORDERED: Medication Not On Formulary EA (Atorvastatin Calcium (Lipitor) 1 TAB) GT SCH (21:00)
[2021-08-05] MEDS ORDERED: DOCUSATE SODIUM 100 MG/10 ML LIQUID UDC GT PRN (21:00)
[2021-08-05] MEDS ORDERED: PHENOBARBITAL GT SCH (21:00)
[2021-08-05] MEDS: FAMOTIDINE 20 MG TABLET GT SCH (21:01)
[2021-08-05] MEDS: SODIUM HYPOCHLORITE 0.25% (HALF STRENGTH) 480 ML BOTTLE TP SCH (21:01)
[2021-08-05] MEDS: NYSTATIN CREAM 30 GM TUBE TP SCH (21:01)
[2021-08-05] MEDS: HYDROCODONE/APAP 5-325MG TABLET GT PRN (23:48)
[2021-08-06] VITALS: BP 142/89
--- NOTE | 2021-08-06 00:51 | NUR ---
Patient given Narco via gt for pain, comfort, and changes in vital signs. Patient appear relaxed, arms and legs relaxed, cont to monitor.
[2021-08-06] MEDS: LEVALBUTEROL HCL 1.25 MG/0.5 ML NEB IH SCH ×4 (01:31→19:26)
[2021-08-06] MEDS: IPRATROPIUM BROMIDE 0.5 MG/2.5 ML NEBU NEB SCH ×4 (01:31→19:26)
[2021-08-06] MEDS: CEFEPIME HCL 1 G in IV DEXTROSE 5% 50 ML IV SCH ×3 (01:42→17:04)
[2021-08-06] MEDS: methylPREDNISolone SOD SUCC 40 MG/ML VIAL IV SCH ×3 (02:07→17:04)
--- NOTE | 2021-08-06 02:41 | NUR ---
PATIENT HAS COUGH AND SPASM, KEPT COMFORTABLE, GIVEN ATIVAN 1MG VIA GT WITH EFFECTIVE, SUCTION NEEDED, TURN AND REPOSITION, CONT TO MONITOR.
[2021-08-06 04:00] VITALS: BP 125/77
[2021-08-06] MEDS: BLOOD SUGAR DIAGNOSTIC 1 EACH STRIP VI SCH ×3 (06:26→17:05)
[2021-08-06] MEDS: INSULIN REGULAR, HUMAN 300 UNIT/3 ML VIAL SQ PRN ×3 (06:28→17:08)
--- NOTE | 2021-08-06 06:35 | NUR ---
Patient eyes open, no s/s of pain no s/s of sob, hob elevated tolerate gtf, vent setting, with episode of coughing, suction as ordered. tx done on sacral wound, SERA, thomas cath patent, no s/s of hypogylcemia, cont to monitor.
[2021-08-06 06:59] LABS: HEMATOCRIT 34.4 % (36.7-47.1); MEAN CORPUSCULAR HEMOGLOBIN 29.2 uug (23.8-33.4); MEAN CORPUSCULAR VOLUME 88.2 fL (73.0-96.2); PLATELET COUNT (AUTO) 291 K/uL (152-348)
[2021-08-06 07:16] LABS: THYROID STIMULATING HORMONE 0.752 mIU/mL (0.358-3.740)
[2021-08-06 07:28] LABS: CARBON DIOXIDE 25 mmol/L (21-32); CHLORIDE 97 mmol/L (98-107); CREATININE 0.5 mg/dL (0.6-1.3); MAGNESIUM 2.4 mg/dL (1.8-2.4); PHOSPHOROUS 2.8 mg/dL (2.5-4.9); POTASSIUM 4.4 mmol/L (3.5-5.1); UREA NITROGEN, BLOOD 27 mg/dL (7-18)
[2021-08-06 07:54] LABS: GLUCOSE 219 mg/dL (74-106)
[2021-08-06 07:55] LABS: CHOLESTEROL 172 mg/dL (<200); HDL CHOLESTEROL 63 mg/dL (40-60); TRIGLYCERIDES 124 MG/DL (30-150)
[2021-08-06] MEDS: levETIRAcetam 500 MG/5 ML LIQUID UDC GT SCH ×2 (08:02→20:09)
[2021-08-06] MEDS: FAMOTIDINE 20 MG TABLET GT SCH ×2 (08:03→20:08)
[2021-08-06] MEDS: PHENOBARBITAL 32.4 MG TABLET GT SCH ×2 (08:03→20:08)
[2021-08-06] MEDS: ACETAMINOPHEN 325 MG TABLET GT SCH ×2 (08:04→16:15)
[2021-08-06] MEDS: AMANTADINE HCL 100 MG CAPSULE GT SCH ×2 (08:06→20:09)
[2021-08-06] MEDS: TERAZOSIN 1 MG CAPSULE GT SCH (08:11)
[2021-08-06] MEDS: METOPROLOL TARTRATE 25 MG TABLET GT SCH ×2 (08:12→20:08)
[2021-08-06] MEDS: NYSTATIN CREAM 30 GM TUBE TP SCH ×2 (08:13→20:11)
[2021-08-06] MEDS: BACLOFEN 10 MG TABLET GT SCH ×2 (08:16→20:08)
[2021-08-06] MEDS: ARGININE/GLUTAMINE/CALCIUM BMB 1 EACH POWD.PACK GT SCH ×2 (08:16→17:04)
[2021-08-06] MEDS: NUTRISOURCE FIBER 4 GM PACKET GT SCH ×2 (08:17→16:16)
[2021-08-06] MEDS: SODIUM HYPOCHLORITE 0.25% (HALF STRENGTH) 480 ML BOTTLE TP SCH ×2 (08:17→20:10)
[2021-08-06 08:18] LABS: ABG BASE EXCESS 0.3 mmol/L; ABG HCO3 23.8 mmol/L; ABG PCO2 34.6 mmHg (35.0-45.0); ABG PH 7.455 (7.350-7.450); ABG PO2 138.5 mmHg (75.0-100.0); ABG SITE LEFT RADIAL; ABG TOTAL HEMOGLOBIN 11.5 G/dL (13.5-18.0); COHb 0.9 % (0.5-1.5); MetHb 0.1 % (0.0-1.5); VENT MODE VENT - A/C20; VT, ABG 450 mL
[2021-08-06] MEDS: ENOXAPARIN SODIUM 40 MG/0.4 ML DISP.SYRIN SQ SCH (08:25)
--- NOTE | 2021-08-06 08:31 | NUR ---
REC'D PATIENT ON CONT ABBOTT VENT WITH [id number] TRACH TUBE IN PLACE AND SECURED WITH FOAM TRACH TIES, TOLERATING CURRENT VENT SETTINGS, A/C 20, 450VT, PEEP+8 FiO2 30% , PT SUCTIONED MOD THICK YELLOW TINGED SECRETIONS, INLINE NEB TX'S GIVEN PER MD ORDER, CHANGED HME, ALL VENT ALARMS CHECKED AND RESET, NO VENT CHANGES MADE , VENT PLUGGED INTO RED WALL OUTLET. CONT WITH CURRENT RT ORDERS. CONT TO MONITOR AND REPORT ANY CHANGES.
[2021-08-06] MEDS ORDERED: predniSONE 10 MG TABLET GT SCH (09:00)
[2021-08-06] MEDS ORDERED: Medication Not On Formulary EA (Phenobarbital 97.2 MG) GT SCH (09:00)
--- NOTE | 2021-08-06 09:00 | NUR ---
dr lopez plastics heat welder is aware about todays ABGs result. FIO2 decreased from 40% to 30% as ordered.
[2021-08-06] MEDS: HYDROCODONE/APAP 5-325MG TABLET GT PRN (11:07)
[2021-08-06 11:16] VITALS: BP 135/80
[2021-08-06] MEDS: GLUCERNA 1.2 1000ML LIQUID GT PRN (12:00)
[2021-08-06 15:49] VITALS: BP 143/84
--- NOTE | 2021-08-06 17:35 | NUR ---
patient is on vent, turned, repositioned every 2 hours, sacral wound care provided as ordered, no drainage noted from wound, no malodor noted, kept comfortable and clean, thomas is intact, g-tube is intact, patient noted with lot of secretions, suctioned PRN, trach care provided, no acute distress noted.
[2021-08-06] MEDS: ACETAMINOPHEN ES 500 MG TABLET GT PRN (20:07)
[2021-08-06] MEDS: THIAMINE HCL 100 MG TABLET GT SCH (20:08)
[2021-08-06] MEDS: ASCORBIC ACID 500 MG TABLET GT SCH (20:08)
[2021-08-06] MEDS: ATORVASTATIN 40 MG TABLET GT SCH (20:09)
[2021-08-06 20:31] VITALS: BP 142/82
[2021-08-06] MEDS: hydrALAZINE HCL 25 MG TABLET GT SCH (21:07)
[2021-08-06 21:08] VITALS: BP 131/79
[2021-08-07] MEDS: BLOOD SUGAR DIAGNOSTIC 1 EACH STRIP VI SCH ×4 (00:05→17:49)
[2021-08-07] MEDS: INSULIN REGULAR, HUMAN 300 UNIT/3 ML VIAL SQ PRN ×4 (00:06→17:46)
[2021-08-07 00:26] VITALS: BP 138/78
[2021-08-07] MEDS: IPRATROPIUM BROMIDE 0.5 MG/2.5 ML NEBU NEB SCH ×4 (00:42→19:45)
[2021-08-07] MEDS: LEVALBUTEROL HCL 1.25 MG/0.5 ML NEB IH SCH ×4 (00:42→19:45)
[2021-08-07] MEDS: methylPREDNISolone SOD SUCC 40 MG/ML VIAL IV SCH ×3 (02:11→17:27)
[2021-08-07] MEDS: CEFEPIME HCL 1 G in IV DEXTROSE 5% 50 ML IV SCH ×3 (02:11→17:27)
[2021-08-07] MEDS: ACETAMINOPHEN ES 500 MG TABLET GT PRN (02:20)
[2021-08-07 04:32] VITALS: BP 148/76
[2021-08-07] MEDS: GLUCERNA 1.2 1000ML LIQUID GT PRN (05:23)
--- NOTE | 2021-08-07 05:38 | NUR ---
Pt in no distress. Vent settings are 20-450-30. Closed suctioning done PRN. Gauze around trach changed per soiling. SR/ST on monitor. Pt is satting 99%. IV site intact. Patiño draining clear yellow, maria t urine. GT running Glucerna at 65cc, no residual. Wound care done on sacrum. No other issues or concerns at this time, will endorse to day shift.
[2021-08-07] MEDS: ARGININE/GLUTAMINE/CALCIUM BMB 1 EACH POWD.PACK GT SCH ×2 (05:54→18:01)
[2021-08-07 07:23] LABS: HEMATOCRIT 30.4 % (36.7-47.1); MEAN CORPUSCULAR HEMOGLOBIN 29.3 uug (23.8-33.4); MEAN CORPUSCULAR VOLUME 87.6 fL (73.0-96.2); PLATELET COUNT (AUTO) 242 K/uL (152-348)
[2021-08-07 07:35] LABS: CARBON DIOXIDE 28 mmol/L (21-32); CHLORIDE 99 mmol/L (98-107); CREATININE 0.5 mg/dL (0.6-1.3); GLUCOSE 194 mg/dL (74-106); POTASSIUM 4.2 mmol/L (3.5-5.1); UREA NITROGEN, BLOOD 23 mg/dL (7-18)
--- NOTE | 2021-08-07 08:00 | NUR ---
Pt on mechanical ventilator support setting as ordered. Suctioned pt with ample frothy white mucus. PT had large small bowel. Dressing changed as ordered on sacrum. Sacrum wound beefy red no purulent drainage noted. Edema noted on JULIO UE's. G tube placement audible in stomach no residual noted. Pt on KCI bed. Heels floated. Call light is within reach.
[2021-08-07 08:39] VITALS: BP 138/82
[2021-08-07] MEDS: PHENOBARBITAL 32.4 MG TABLET GT SCH ×2 (08:53→20:16)
[2021-08-07] MEDS: levETIRAcetam 500 MG/5 ML LIQUID UDC GT SCH ×2 (08:53→20:15)
[2021-08-07] MEDS: FAMOTIDINE 20 MG TABLET GT SCH ×2 (08:53→20:15)
[2021-08-07] MEDS: METOPROLOL TARTRATE 25 MG TABLET GT SCH ×2 (08:54→20:17)
[2021-08-07] MEDS: ENOXAPARIN SODIUM 40 MG/0.4 ML DISP.SYRIN SQ SCH (08:55)
[2021-08-07] MEDS: AMANTADINE HCL 100 MG CAPSULE GT SCH ×2 (08:57→20:16)
[2021-08-07] MEDS: ACETAMINOPHEN 325 MG TABLET GT SCH ×2 (08:57→17:27)
[2021-08-07] MEDS: NYSTATIN CREAM 30 GM TUBE TP SCH ×2 (08:58→20:28)
[2021-08-07] MEDS: SODIUM HYPOCHLORITE 0.25% (HALF STRENGTH) 480 ML BOTTLE TP SCH ×2 (08:58→20:29)
[2021-08-07] MEDS: TERAZOSIN 1 MG CAPSULE GT SCH (09:15)
[2021-08-07] MEDS: BACLOFEN 10 MG TABLET GT SCH ×2 (09:16→20:14)
[2021-08-07] MEDS: NUTRISOURCE FIBER 4 GM PACKET GT SCH ×2 (09:56→18:07)
[2021-08-07 12:00] VITALS: BP 135/70
--- NOTE | 2021-08-07 12:30 | NUR ---
Dr Tsai here to see patient. PT is in no acute distress. Notified of ample mucus suctioned x 10 since start of shift.
[2021-08-07 15:58] VITALS: BP 134/79
--- NOTE | 2021-08-07 19:30 | NUR ---
RECEIVED PT IN NO ACUTE DISTRESS. IV INTACT. PT ON VENT 20, TIDAL VOLUME 450, F1O2 30. PT ON SINUS RHYTHM. SAFETY AND COMFORT PROVIDED. WILL CONTINUE TO MONITOR.
[2021-08-07 20:05] VITALS: BP 141/80
[2021-08-07] MEDS: hydrALAZINE HCL 25 MG TABLET GT SCH (20:14)
[2021-08-07] MEDS: ATORVASTATIN 40 MG TABLET GT SCH (20:15)
[2021-08-07] MEDS: THIAMINE HCL 100 MG TABLET GT SCH (20:15)
[2021-08-07] MEDS: ASCORBIC ACID 500 MG TABLET GT SCH (20:15)
[2021-08-07] MEDS ORDERED: MUPIROCIN 2% OINT 22 GM TUBE ONE (22:56)
[2021-08-07] MEDS: MUPIROCIN 2% OINT 22 GM TUBE NS SCH (22:57)
--- NOTE | 2021-08-07 23:00 | NUR ---
CHERIE( FATHER OF PT ) CALLED FOR AN UPDATE REGARDING HIS SON. DONNA HANLEY.
[2021-08-08 00:05] VITALS: BP 131/75
[2021-08-08] MEDS: BLOOD SUGAR DIAGNOSTIC 1 EACH STRIP VI SCH ×5 (00:23→23:39)
[2021-08-08] MEDS: INSULIN REGULAR, HUMAN 300 UNIT/3 ML VIAL SQ PRN ×4 (00:26→17:43)
[2021-08-08] MEDS: IPRATROPIUM BROMIDE 0.5 MG/2.5 ML NEBU NEB SCH ×4 (00:37→19:24)
[2021-08-08] MEDS: LEVALBUTEROL HCL 1.25 MG/0.5 ML NEB IH SCH ×4 (00:37→19:24)
[2021-08-08] MEDS: CEFEPIME HCL 1 G in IV DEXTROSE 5% 50 ML IV SCH ×3 (01:50→17:13)
[2021-08-08] MEDS: methylPREDNISolone SOD SUCC 40 MG/ML VIAL IV SCH ×3 (01:51→20:35)
[2021-08-08] MEDS: GLUCERNA 1.2 1000ML LIQUID GT PRN ×2 (01:55→09:20)
[2021-08-08 04:06] VITALS: BP 134/82
[2021-08-08] MEDS: ARGININE/GLUTAMINE/CALCIUM BMB 1 EACH POWD.PACK GT SCH ×2 (05:16→17:13)
--- NOTE | 2021-08-08 06:23 | NUR ---
PT SLEPT INTERMITTENTLY. PRESCRIBED MEDICATION GIVEN AND PT TOLERATED IT WELL. IV INTACT. PT ON VENT. OXYGEN SATURATION AT 100%. TYLENOL ES PRN GIVEN FOR PAIN. PT TOLERATED IT WELL. SAFETY AND COMFORT PROVIDED. PT ON SINUS RHYTHM. PT TURNED AND REPOSITIONED. PT DRESSING CHANGED. PT NEEDS CONSTANT SUCTIONING. BLOOD SUGAR WAS 205 AND RECENT ONE IS 197. ALL NEEDS ARE MET. WILL ENDORSE TO INCOMING NURSE FOR CONTINUITY OF CARE.
[2021-08-08 06:41] LABS: HEMATOCRIT 32.5 % (36.7-47.1); MEAN CORPUSCULAR HEMOGLOBIN 29.3 uug (23.8-33.4); MEAN CORPUSCULAR VOLUME 88.9 fL (73.0-96.2); PLATELET COUNT (AUTO) 246 K/uL (152-348)
[2021-08-08 06:56] LABS: CARBON DIOXIDE 27 mmol/L (21-32); CHLORIDE 99 mmol/L (98-107); CREATININE 0.6 mg/dL (0.6-1.3); GLUCOSE 222 mg/dL (74-106); MAGNESIUM 2.1 mg/dL (1.8-2.4); PHOSPHOROUS 2.9 mg/dL (2.5-4.9); POTASSIUM 4.4 mmol/L (3.5-5.1); UREA NITROGEN, BLOOD 25 mg/dL (7-18)
--- NOTE | 2021-08-08 07:51 | NUR ---
Pt received on cont alexander vent with given settings of AC RR 20, Vt 450, PEEP +8, Fio2 30%. Patient is trached with shiley XLT 6, cuffed. Trach tube is secured via trach tie. Alarms on and audible. [place] and back up trach at bed side. Will continue to monitor throughout shift.
[2021-08-08] MEDS: NUTRISOURCE FIBER 4 GM PACKET GT SCH ×2 (08:00→16:48)
--- NOTE | 2021-08-08 08:00 | NUR ---
PATIENT REMAINS ON VENT SETS AT 20, 450, 8, 30 SATURATING 99-100%, NO SS OF PAIN OR ANY ACUTE RESPIRATORY DISTRESS.PATIENT REQUIRES ON AND OFF CLOSED SUCTIONING FOR SMALL TO MODERATE SECRETION, ORAL GIVEN. SR ON MONITOR
[2021-08-08] MEDS: FAMOTIDINE 20 MG TABLET GT SCH ×2 (09:01→20:17)
[2021-08-08] MEDS: AMANTADINE HCL 100 MG CAPSULE GT SCH ×2 (09:01→20:19)
[2021-08-08] MEDS: PHENOBARBITAL 32.4 MG TABLET GT SCH ×2 (09:02→20:18)
[2021-08-08] MEDS: ACETAMINOPHEN 325 MG TABLET GT SCH ×2 (09:02→16:47)
[2021-08-08] MEDS: BACLOFEN 10 MG TABLET GT SCH ×2 (09:02→20:17)
[2021-08-08] MEDS: ENOXAPARIN SODIUM 40 MG/0.4 ML DISP.SYRIN SQ SCH (09:03)
[2021-08-08] MEDS: levETIRAcetam 500 MG/5 ML LIQUID UDC GT SCH ×2 (09:04→20:18)
[2021-08-08] MEDS: TERAZOSIN 1 MG CAPSULE GT SCH (09:06)
[2021-08-08] MEDS: METOPROLOL TARTRATE 25 MG TABLET GT SCH ×2 (09:06→20:19)
[2021-08-08] MEDS: MUPIROCIN 2% OINT 22 GM TUBE NS SCH ×2 (09:19→20:38)
[2021-08-08] MEDS: NYSTATIN CREAM 30 GM TUBE TP SCH ×2 (09:19→20:36)
[2021-08-08] MEDS: SODIUM HYPOCHLORITE 0.25% (HALF STRENGTH) 480 ML BOTTLE TP SCH (09:20)
--- NOTE | 2021-08-08 10:00 | NUR ---
DR WEBSTER IN ALSO FOR PULMONARY FOLLOW-UP INSTRUCTED TO TAPER VENT SETTINGS . RT IN SETS VENT AT 12, 450,5, 30. PATIENT TOLERATING WELL SATURATING 100%.
--- NOTE | 2021-08-08 11:00 | NUR ---
seen by dr herr for follow-up continue with tx plan see notes
--- NOTE | 2021-08-08 11:40 | NUR ---
WOUND CARE CONSULT: PT RESTING AT THIS TIME. REVIEWED CHART, NURSING DOCUMENTATION AND PHOTO WHICH INDICATES SACRAL STAGE 4 ULCER, PRESENT ON ADMISSION. DR CARMEL DEMARCO CONSULTED FOR SURGICAL WOUND CONSULT. RECOMMENDATIONS MADE FOR WOUND CARE AND SKIN PROTECTION. DISCUSSED WITH NURSING STAFF. PT IS ON FIRST STEP BONNIE HOANG MD IN AGREEMENT WITH PLAN OF CARE.
[2021-08-08 12:00] VITALS: BP 118/64
[2021-08-08] MEDS: SODIUM HYPOCHLORITE 0.125% (QUARTER STRENGTH) 473 ML BOTTLE TP SCH (12:13)
--- NOTE | 2021-08-08 14:59 | NUR ---
RESTING COMFORTABLY IN BED, SEEN BY WOUND NURSE WOUND CARE ORDER GIVEN SEE NOTES
[2021-08-08 16:29] VITALS: BP 106/54
--- NOTE | 2021-08-08 18:48 | NUR ---
Patient on ventilator, resting well . Feeding tube on and tolerated feeding and medication well. O2 saturating at 100% on 12L NRM. SR on school bus monitor. Midline and IV intact and patent. No signs of respiratory distress or discomfort. No signs of bleeding.
--- NOTE | 2021-08-08 19:30 | NUR ---
RECEIVED PT IN NO ACUTE DISTRESS. IV INTACT. PT ON VENT SETTING AT 20, TIDAL VOLUME AT 450, FIO2 AT 30 AND PEEP 5.PT TOLERATING GTUBE FEEDING. HERRON CATHETER INTACT AND DRAINING WELL. PT ON SINUS RHYTHM. SAFETY AND COMFORT PROVIDED. WILL CONTINUE TO MONITOR.
[2021-08-08 20:10] VITALS: BP 145/72
[2021-08-08] MEDS: ASCORBIC ACID 500 MG TABLET GT SCH (20:17)
[2021-08-08] MEDS: THIAMINE HCL 100 MG TABLET GT SCH (20:17)
[2021-08-08] MEDS: ATORVASTATIN 40 MG TABLET GT SCH (20:17)
[2021-08-08] MEDS: hydrALAZINE HCL 25 MG TABLET GT SCH (20:18)
[2021-08-09] MEDS: INSULIN REGULAR, HUMAN 300 UNIT/3 ML VIAL SQ PRN ×4 (00:02→16:58)
[2021-08-09 00:03] VITALS: BP 128/75
[2021-08-09] MEDS: IPRATROPIUM BROMIDE 0.5 MG/2.5 ML NEBU NEB SCH ×4 (01:02→21:14)
[2021-08-09] MEDS: LEVALBUTEROL HCL 1.25 MG/0.5 ML NEB IH SCH ×4 (01:02→21:14)
[2021-08-09] MEDS: CEFEPIME HCL 1 G in IV DEXTROSE 5% 50 ML IV SCH ×3 (01:13→16:50)
[2021-08-09] MEDS: GLUCERNA 1.2 1000ML LIQUID GT PRN ×2 (02:48→21:46)
[2021-08-09 04:10] VITALS: BP 144/70
[2021-08-09] MEDS: ARGININE/GLUTAMINE/CALCIUM BMB 1 EACH POWD.PACK GT SCH ×2 (05:24→16:51)
[2021-08-09] MEDS: BLOOD SUGAR DIAGNOSTIC 1 EACH STRIP VI SCH ×4 (05:31→23:59)
--- NOTE | 2021-08-09 05:37 | NUR ---
PT SLEPT INTERMITTENTLY. PT IN NO ACUTE RESPIRATORY DISTRESS. IV INTACT. HERRON CATHETER INTACT. PT ON SINUS RHYTHM. PT TURNED AND REPOSITIONED. PT BLOOD SUGAR WAS 178. DRESSING CHANGED. SAFETY AND COMFORT PROVIDED. ALL NEEDS ARE MET. WILL ENDORSE TO INCOMING NURSE FOR CONTINUITY OF CARE.
--- NOTE | 2021-08-09 05:39 | NUR ---
PT ON CPAP PEEP 5 , PRESSURE SUPPORT OF 10, FIO2-30%. PT TOLERATING WELL. OXYGEN SATURATION OF 99%. WILL ENDORSE TO INCOMING NURSE. CONSTANT SUCTIONING OF SECRETIONS NEEDED.
[2021-08-09 06:37] LABS: HEMATOCRIT 33.4 % (36.7-47.1); MEAN CORPUSCULAR HEMOGLOBIN 28.5 uug (23.8-33.4); MEAN CORPUSCULAR VOLUME 87.9 fL (73.0-96.2); PLATELET COUNT (AUTO) 246 K/uL (152-348)
[2021-08-09 06:50] LABS: CARBON DIOXIDE 29 mmol/L (21-32); CHLORIDE 97 mmol/L (98-107); CREATININE 0.4 mg/dL (0.6-1.3); GLUCOSE 185 mg/dL (74-106); PHOSPHOROUS 3.1 mg/dL (2.5-4.9); POTASSIUM 4.1 mmol/L (3.5-5.1); UREA NITROGEN, BLOOD 20 mg/dL (7-18)
[2021-08-09] MEDS: FAMOTIDINE 20 MG TABLET GT SCH ×2 (08:23→21:27)
[2021-08-09] MEDS: ACETAMINOPHEN 325 MG TABLET GT SCH ×2 (08:24→16:50)
[2021-08-09] MEDS: BACLOFEN 10 MG TABLET GT SCH ×2 (08:24→21:28)
[2021-08-09] MEDS: AMANTADINE HCL 100 MG CAPSULE GT SCH ×2 (08:24→21:30)
[2021-08-09] MEDS: PHENOBARBITAL 32.4 MG TABLET GT SCH ×2 (08:24→21:28)
[2021-08-09] MEDS: TERAZOSIN 1 MG CAPSULE GT SCH (08:26)
[2021-08-09] MEDS: METOPROLOL TARTRATE 25 MG TABLET GT SCH ×2 (08:29→21:28)
[2021-08-09] MEDS: ENOXAPARIN SODIUM 40 MG/0.4 ML DISP.SYRIN SQ SCH (08:30)
[2021-08-09] MEDS: MUPIROCIN 2% OINT 22 GM TUBE NS SCH ×2 (08:31→21:31)
[2021-08-09] MEDS: SODIUM HYPOCHLORITE 0.125% (QUARTER STRENGTH) 473 ML BOTTLE TP SCH (08:32)
[2021-08-09] MEDS: NYSTATIN CREAM 30 GM TUBE TP SCH ×2 (08:32→21:31)
[2021-08-09] MEDS: levETIRAcetam 500 MG/5 ML LIQUID UDC GT SCH ×2 (08:37→21:26)
[2021-08-09] MEDS: methylPREDNISolone SOD SUCC 40 MG/ML VIAL IV SCH ×2 (08:39→21:26)
[2021-08-09 08:47] LABS: ABG BASE EXCESS 4.3 mmol/L; ABG HCO3 27.2 mmol/L; ABG PCO2 34.8 mmHg (35.0-45.0); ABG PH 7.511 (7.350-7.450); ABG PO2 108.7 mmHg (75.0-100.0); ABG SITE RIGHT RADIAL; ABG TOTAL HEMOGLOBIN 11.3 G/dL (13.5-18.0); COHb 0.8 % (0.5-1.5); MetHb 0.1 % (0.0-1.5); O2Hb 97.6 % (94.0-97.0); VENT MODE VENT - CPAP
[2021-08-09] MEDS: NUTRISOURCE FIBER 4 GM PACKET GT SCH ×2 (09:57→16:52)
--- NOTE | 2021-08-09 10:00 | NUR ---
Pt is tolerating CPAP setting of PEEP 5, PRESSURE SUPPORT of 10, FIO2-30%. Tolerating well. o2 sat of 98%. Dr medina here to see patient. Pt still need constant suctioning of secretions as needed. Call light is within reach.
[2021-08-09 12:00] VITALS: BP 132/87
--- NOTE | 2021-08-09 12:00 | NUR ---
Sacral wound dressing changed as ordered. Wound clean red and beefy. Call light is within reach.
[2021-08-09 16:00] VITALS: BP 135/79
--- NOTE | 2021-08-09 18:05 | NUR ---
PT is in no acute distress. Call light is within reach.
[2021-08-09 20:15] VITALS: BP 145/91
[2021-08-09] MEDS: hydrALAZINE HCL 25 MG TABLET GT SCH (21:27)
[2021-08-09] MEDS: ASCORBIC ACID 500 MG TABLET GT SCH (21:28)
[2021-08-09] MEDS: THIAMINE HCL 100 MG TABLET GT SCH (21:29)
[2021-08-09] MEDS: ATORVASTATIN 40 MG TABLET GT SCH (21:29)
[2021-08-10] MEDS: INSULIN REGULAR, HUMAN 300 UNIT/3 ML VIAL SQ PRN ×4 (00:02→18:00)
[2021-08-10 00:05] VITALS: BP 132/79
[2021-08-10] MEDS: CEFEPIME HCL 1 G in IV DEXTROSE 5% 50 ML IV SCH ×3 (01:48→17:52)
[2021-08-10] MEDS: LEVALBUTEROL HCL 1.25 MG/0.5 ML NEB IH SCH ×4 (02:01→19:35)
[2021-08-10] MEDS: IPRATROPIUM BROMIDE 0.5 MG/2.5 ML NEBU NEB SCH ×4 (02:01→19:35)
--- NOTE | 2021-08-10 02:02 | NUR ---
PATIENT ON CONT ABBOTT VENT WITH SHILEY # [address] , WITH CURRENT VENT SETTINGS, CPAP PSV 10, PEEP 5, FIO2 2 30%, SUCTION THICK PALE YELL TINGE SECRETIONS, AND TRACH CARE DONE, SUCTION MOUTH WITH DAVID TOLL WELL,PULSE OXY CONT AT BEDSIDE, RR22 - 29, SAT 99% , NEB INLINE X 2 TOLL WELL, PATIENT WILL BE PLACED ON COOL AEROSOL VIA T/PIECE @ FIO2 30% @ 06:00 ORDERED . Janna MCGUIREP Addendum: 08/10/21 at 0208 by ARELY JIMENEZ RT Amended: Links added.
[2021-08-10 04:15] VITALS: BP 127/74
[2021-08-10] MEDS: BLOOD SUGAR DIAGNOSTIC 1 EACH STRIP VI SCH ×3 (06:42→17:56)
[2021-08-10] MEDS: ARGININE/GLUTAMINE/CALCIUM BMB 1 EACH POWD.PACK GT SCH ×2 (06:59→17:51)
[2021-08-10 08:25] LABS: ABG BASE EXCESS 3.9 mmol/L; ABG HCO3 27.3 mmol/L; ABG PCO2 36.6 mmHg (35.0-45.0); ABG PO2 92.9 mmHg (75.0-100.0); ABG SITE RIGHT RADIAL; ABG TOTAL HEMOGLOBIN 11.9 G/dL (13.5-18.0); COHb 0.9 % (0.5-1.5); MetHb 0.3 % (0.0-1.5); O2Hb 96.2 % (94.0-97.0); VENT MODE T-Piece - 30% C/A
[2021-08-10] MEDS: levETIRAcetam 500 MG/5 ML LIQUID UDC GT SCH ×2 (09:01→20:04)
[2021-08-10] MEDS: ACETAMINOPHEN 325 MG TABLET GT SCH ×2 (09:01→17:50)
[2021-08-10] MEDS: PHENOBARBITAL 32.4 MG TABLET GT SCH ×2 (09:02→20:11)
[2021-08-10] MEDS: BACLOFEN 10 MG TABLET GT SCH ×2 (09:02→20:10)
[2021-08-10] MEDS: FAMOTIDINE 20 MG TABLET GT SCH ×2 (09:03→20:11)
[2021-08-10] MEDS: METOPROLOL TARTRATE 25 MG TABLET GT SCH ×2 (09:04→20:18)
[2021-08-10] MEDS: methylPREDNISolone SOD SUCC 40 MG/ML VIAL IV SCH (09:05)
[2021-08-10] MEDS: TERAZOSIN 1 MG CAPSULE GT SCH (09:07)
[2021-08-10] MEDS: NUTRISOURCE FIBER 4 GM PACKET GT SCH ×2 (09:07→17:50)
[2021-08-10] MEDS: ENOXAPARIN SODIUM 40 MG/0.4 ML DISP.SYRIN SQ SCH (09:07)
[2021-08-10] MEDS: AMANTADINE HCL 100 MG CAPSULE GT SCH ×2 (09:08→20:11)
[2021-08-10] MEDS: NYSTATIN CREAM 30 GM TUBE TP SCH ×2 (09:16→20:19)
[2021-08-10] MEDS: SODIUM HYPOCHLORITE 0.125% (QUARTER STRENGTH) 473 ML BOTTLE TP SCH (09:16)
[2021-08-10] MEDS: MUPIROCIN 2% OINT 22 GM TUBE NS SCH ×2 (09:17→20:18)
--- NOTE | 2021-08-10 09:50 | NUR ---
received patient laying in bed in no apparent distress. patient awake, not able to make needs known, patient with right upper arm midline in place and patent. Patient with v/s bp:143/84 , P: 84, rr: 20, T: 98.5, spo2 100% on cool aerosol via tpiece at fio2 30%. no facial grimacing of pain or discomfort noted at this time. f/c in place and patent, draining clear yellow urine, no sedimentation noted on drainage bag. call light within reach, side rails up x2.
[2021-08-10 12:00] VITALS: BP 121/73
[2021-08-10 16:00] VITALS: BP 142/81
[2021-08-10] MEDS ORDERED: predniSONE 20 MG TABLET GT SCH (18:00)
--- NOTE | 2021-08-10 18:10 | NUR ---
Received a call from father asking if patient is to be discharged back to subacute, Dr. Carson notified, per MD he can d/c patient around 8pm if subacute able to admit. Subacute called, per subacute they can admit at 8p. Dr. Carson aware.
[2021-08-10] MEDS ORDERED: CEFE1PIG3 IV (19:38)
[2021-08-10] MEDS ORDERED: ATOR20TA GT (19:38)
[2021-08-10] MEDS ORDERED: ENOX40DI SQ (19:38)
[2021-08-10 20:00] VITALS: BP 153/82
[2021-08-10] MEDS: THIAMINE HCL 100 MG TABLET GT SCH (20:11)
[2021-08-10] MEDS: ATORVASTATIN 40 MG TABLET GT SCH (20:11)
[2021-08-10] MEDS: ASCORBIC ACID 500 MG TABLET GT SCH (20:11)
[2021-08-10] MEDS: hydrALAZINE HCL 25 MG TABLET GT SCH (20:17)
[2021-08-10 20:18] VITALS: BP 153/82
--- NOTE | 2021-08-10 20:59 | NUR ---
PT DISCHARGE. PT IN NO ACUTE DISTRESS. PT ON TPIECE. IV INTACT. DISCHARGE PAPERS GIVEN TO SUBACUTE NURSE. PT ON SINUS RHYTHM.SAFETY AND COMFORT PROVIDED. PT STABLE.
[2021-08-17] MEDS ORDERED: RXVAN XX (15:22)
[2021-08-17] MEDS ORDERED: Glucerna 1.2 GT (15:22)
[2021-08-17] MEDS ORDERED: CEFE1FRO IV (15:22)
[2021-08-17] MEDS ORDERED: PANT40TA2 GT (15:28)
== END 2021-08-10 21:25 | DRG 130 ==
LOC: ER 08:11 → TELE-TD3 13:59 → TELE3 08-07 16:23
PROVIDERS: ADMIT Hospitalist; ATTEND Internal Medicine
PROC: 5A1955Z Respiratory Ventilation, Greater than 96 Consecutive Hours (ICD-10-PCS; principal; 2021-08-05)
PROC: B546ZZA Ultrasonography of Right Subclavian Vein, Guidance (ICD-10-PCS; principal; 2021-08-05)
PROC: 05H533Z Insertion of Infusion Device into Right Subclavian Vein, Percutaneous Approach (ICD-10-PCS; principal; 2021-08-05)
DX: J96.21 Acute and chronic respiratory failure with hypoxia (principal); G93.49 Other encephalopathy; E43 Unspecified severe protein-calorie malnutrition; L89.154 Pressure ulcer of sacral region, stage 4; G93.1 Anoxic brain damage, not elsewhere classified; D68.59 Other primary thrombophilia; Z86.74 Personal history of sudden cardiac arrest; K92.2 Gastrointestinal hemorrhage, unspecified; Z99.11 Dependence on respirator [ventilator] status; J44.0 Chronic obstructive pulmonary disease with (acute) lower respiratory infection; D75.839 Thrombocytosis, unspecified; E11.9 Type 2 diabetes mellitus without complications; G40.909 Epilepsy, unspecified, not intractable, without status epilepticus; J96.22 Acute and chronic respiratory failure with hypercapnia; E78.5 Hyperlipidemia, unspecified; I10 Essential (primary) hypertension; I48.0 Paroxysmal atrial fibrillation; N39.0 Urinary tract infection, site not specified; Z86.73 Personal history of transient ischemic attack (TIA), and cerebral infarction without residual deficits; Z87.891 Personal history of nicotine dependence; Z88.0 Allergy status to penicillin; Z88.5 Allergy status to narcotic agent; Z93.0 Tracheostomy status; Z93.1 Gastrostomy status; Z86.14 Personal history of Methicillin resistant Staphylococcus aureus infection; R13.10 Dysphagia, unspecified; Z22.322 Carrier or suspected carrier of Methicillin resistant Staphylococcus aureus; Z74.01 Bed confinement status; Z79.4 Long term (current) use of insulin; Z20.822 Contact with and (suspected) exposure to COVID-19; E88.09 Other disorders of plasma-protein metabolism, not elsewhere classified; Z68.21 Body mass index [BMI] 21.0-21.9, adult; F32.A Depression, unspecified; F41.9 Anxiety disorder, unspecified; D64.9 Anemia, unspecified; I70.0 Atherosclerosis of aorta; K20.90 Esophagitis, unspecified without bleeding; Z87.01 Personal history of pneumonia (recurrent)
CPT/HCPCS: 36415; 36600; 70030-TC; 71045; 71275; 83605; 83735; 84100; 84443; 85025; 85730; 87040; 87070; 87077; 93005; 94002; 94003; 94640; 94760; A4217; A4663; A6209; A9150; G0378; J0692; J1650; J1815; J2060; J2543; J2920; J3370; J3590; J7030; J7040; J7050; J7060; J7512; Q9967

== ENCOUNTER 2021-08-13 08:46 | Inpatient (IN) | payer MEDICAID ==
[~2021-08-13] VITALS: Ht 157.5 cm; Wt 65.8 kg
[2021-08-13] VITALS (13 sets, daily range): BP systolic 116–162; BP diastolic 80–101
[~2021-08-13 08:46] MED LIST changes: +ATOR20TA GT; -ATOR80TA GT; -CEFE1FRO IV; +CEFE1PIG3 IV; -DEXT15DR6 EACHEYE; +ENOX40DI SQ; -GUAI200T5 GT; -HEPA500034 SQ; -INSU100V28 SQ; -LEVA1.2528 IH; +LEVA1.2528 NEB; +NEOM1OIN19 TP; -ONDA4TAB11 GT; +POLY15DR27 EACHEYE; +PRED20TA GT; -REFRESH EACHEYE; -SODI473S8 TP; +SODI480S2 TP; -TRIA15CR2 TP; +WHEAT DEXTRIN GT; +[UNRECOGNIZED DRUG - OTHER] EACHEYE
[2021-08-13] MEDS ORDERED: LORAZEPAM 2 MG/1 ML VIAL ONE (08:59)
[2021-08-13] MEDS ORDERED: LORAZEPAM 2 MG/1 ML VIAL IV ONE (09:00)
[2021-08-13] MEDS ORDERED: ALBUTEROL SULFATE 2.5 MG/3 ML NEBU NEB ONE (09:00)
[2021-08-13] MEDS ORDERED: PANTOPRAZOLE SODIUM IV 80 MG in IV DEXTROSE 5% 100 ML IV ONE (09:00)
--- NOTE | 2021-08-13 09:18 | NUR ---
PT WAS TRANSFERED FROM SUB ACUTE UNIT TO ER. PT IS IN ROOM #1A. DR BULLOCK EVALUATED THE PT.
[2021-08-13] MEDS ORDERED: CEFEPIME HCL 1 G in IV DEXTROSE 5% 50 ML IV ONE (09:30)
[2021-08-13] MEDS ORDERED: ALBUTEROL SULFATE 2.5 MG/3 ML NEBU ONE (09:33)
[2021-08-13 09:39] LABS: CARBON DIOXIDE 31 mmol/L (21-32); CHLORIDE 98 mmol/L (98-107); CREATININE 0.4 mg/dL (0.6-1.3); GLUCOSE 119 mg/dL (74-106); HEMATOCRIT 38.6 % (36.7-47.1); MEAN CORPUSCULAR HEMOGLOBIN 29.2 uug (23.8-33.4); MEAN CORPUSCULAR VOLUME 88.1 fL (73.0-96.2); PLATELET COUNT (AUTO) 395 K/uL (152-348); POTASSIUM 4.9 mmol/L (3.5-5.1); UREA NITROGEN, BLOOD 28 mg/dL (7-18)
[2021-08-13] MEDS ORDERED: PANTOPRAZOLE SODIUM 40 MG VIAL ONE (09:42)
[2021-08-13] MEDS ORDERED: CEFEPIME HCL 1 G VIAL ONE (09:43)
[2021-08-13 09:52] LABS: ALANINE AMINOTRANSFERASE 68 U/L (16-63); ALKALINE PHOSPHATASE 177 U/L (50-136); ASPARTATE AMINOTRANSFERASE 27 U/L (15-37); BILIRUBIN,DIRECT 0.1 mg/dL (0.0-0.2); BILIRUBIN,TOTAL 0.2 mg/dL (0.2-1.0)
--- NOTE | 2021-08-13 11:14 | NUR ---
REPORT WAS GIVEN TO CCU RN BLU. PT WAS TRANSFERED TO CCU ROOM #3.
--- NOTE | 2021-08-13 11:20 | NUR ---
Patient in from E.R. via [facility]. On ventilator SIMV of 16, Tv500, Peep +5, FIO2 35%. PSV 10. Patient in no respiratory distress. saturation of 100%. Hemodynamically pt. on sinus tachycardia rate of 113, sbp of 148/93. ML to RUE patent, thomas to gravity. body temp of 99.4 rectally. patient cleaned and situated in bed. Dressing to sacrum wound change. Will notify MD. of pt's arrival.
--- NOTE | 2021-08-13 12:01 | NUR ---
Attending notified of pt's arrival to the unit.
[2021-08-13] MEDS ORDERED: INSU100V28 SQ (13:57)
[2021-08-13] MEDS ORDERED: IPRA0.2S48 NEB (14:01)
[2021-08-13] MEDS ORDERED: MINE3.5O44 EACHEYE (14:01)
[2021-08-13] MEDS ORDERED: MUPI22OI2 NS (14:01)
[2021-08-13] MEDS ORDERED: LEVA1.2528 IH (14:01)
[2021-08-13] MEDS ORDERED: NUT.237L30 GT (14:10)
[2021-08-13] MEDS ORDERED: TRIA15CR2 TP (14:11)
[2021-08-13] MEDS ORDERED: HYDR-894 PO (14:12)
[2021-08-13] MEDS ORDERED: PRED20TA GT ×2 (14:15)
[2021-08-13] MEDS ORDERED: POLYVINYL ALCOHOL OPHT DROPS 15 ML BOTTLE EACHEYE PRN ×2 (16:30→16:45)
[2021-08-13] MEDS ORDERED: INSULIN REGULAR, HUMAN 300 UNIT/3 ML VIAL SQ SCH (16:30)
[2021-08-13] MEDS ORDERED: LORAZEPAM 2 MG/1 ML VIAL IV PRN (16:45)
[2021-08-13] MEDS ORDERED: DEXTROSE 50% 50 ML DISP.SYRIN IV PRN (16:45)
[2021-08-13] MEDS ORDERED: INSULIN REGULAR, HUMAN 300 UNIT/3 ML VIAL ONE (16:50)
--- NOTE | 2021-08-13 16:57 | NUR ---
Per seasonal warehouse associate Dr. Simpson called for possible EGD tomorrow, no time was arranged.
--- NOTE | 2021-08-13 17:03 | NUR ---
per dr. gong ID was also consulted. Father of patient called and wants to be called by any doctor that comes to see the patient. informed that GI and ID was already consulted but there is no set time that they will come to see patient. He asked if they can have a meeting over the phone. informed him that we can relay message to call him.
[2021-08-13] MEDS: IV D5 1/2 NS 1000 ML 1,000 ML IV PRN (17:11)
[2021-08-13] MEDS: BLOOD SUGAR DIAGNOSTIC 1 EACH STRIP VI SCH (17:18)
[2021-08-13] MEDS: INSULIN REGULAR, HUMAN 300 UNIT/3 ML VIAL SQ PRN (17:20)
--- NOTE | 2021-08-13 17:30 | NUR ---
per nursing building cleaning supervisor patient is scheduled for EGD tomorrow at 1600. consent to be obtained for EGD.
[2021-08-13] MEDS: levETIRAcetam IV 1,000 MG in IV DEXTROSE 5% 100 ML IV SCH (20:49)
[2021-08-13] MEDS: PANTOPRAZOLE SODIUM 40 MG VIAL IV SCH (20:54)
[2021-08-13] MEDS: MUPIROCIN 2% OINT 22 GM TUBE NS SCH (20:55)
[2021-08-13] MEDS: NYSTATIN CREAM 30 GM TUBE TP SCH ×2 (20:57→21:00)
[2021-08-13] MEDS: TRIAMCINOLONE ACET 0.1% CREAM 15 GM TUBE TP SCH ×2 (20:57→21:00)
[2021-08-13] MEDS: SODIUM HYPOCHLORITE 0.125% (QUARTER STRENGTH) 473 ML BOTTLE TP SCH (20:58)
[2021-08-13] MEDS ORDERED: NYSTATIN CREAM 30 GM TUBE TP SCH ×3 (21:00)
[2021-08-13] MEDS ORDERED: levETIRAcetam IV 1,500 MG in IV DEXTROSE 5% 100 ML IV SCH (21:00)
[2021-08-13] MEDS ORDERED: TRIAMCINOLONE ACET 0.1% CREAM 15 GM TUBE TP SCH ×2 (21:00)
--- NOTE | 2021-08-13 21:00 | NUR ---
Patient's father called / update. No EGD consent until MD calls.
[2021-08-13] MEDS: LEVALBUTEROL HCL 1.25 MG/0.5 ML NEB NEB SCH (21:31)
[2021-08-14] VITALS (24 sets, daily range): BP systolic 86–160; BP diastolic 30–99
[2021-08-14] MEDS: BLOOD SUGAR DIAGNOSTIC 1 EACH STRIP VI SCH ×4 (00:01→18:50)
[2021-08-14] MEDS: INSULIN REGULAR, HUMAN 300 UNIT/3 ML VIAL SQ PRN ×3 (00:04→18:51)
--- NOTE | 2021-08-14 00:08 | NUR ---
PT ON CONT ABBOTT VENT WITH SHILEY #[address] AND SECURED, SUCTIONED LIGHT PALE YELL TINGE SECRETIONS, CHECK CUFF, NEB INLINE X 2, NO VENT CHANGES MADE, ALL VENT ALARMS GOOD, . Janna JIMENEZ RF TECHNICIAN Addendum: 08/14/21 at 0010 by ARELY JIMENEZ RT Amended: Links added.
[2021-08-14] MEDS: LEVALBUTEROL HCL 1.25 MG/0.5 ML NEB NEB SCH ×4 (01:43→20:25)
--- NOTE | 2021-08-14 01:47 | NUR ---
PT ON ABBOTT VENT WITH VENT SETTINGS, SIMV 16, PSV 10, PEEP 5, VT 500ML, FIO2 @ 35%. D BARBARA BEDOLLA
[2021-08-14 05:38] LABS: HEMATOCRIT 35.2 % (36.7-47.1); MEAN CORPUSCULAR HEMOGLOBIN 28.9 uug (23.8-33.4); MEAN CORPUSCULAR VOLUME 87.3 fL (73.0-96.2); PLATELET COUNT (AUTO) 292 K/uL (152-348)
[2021-08-14 05:51] LABS: IRON, SERUM 45 ug/dL (50-175)
[2021-08-14 05:52] LABS: ALANINE AMINOTRANSFERASE 52 U/L (16-63); ALKALINE PHOSPHATASE 163 U/L (50-136); ASPARTATE AMINOTRANSFERASE 22 U/L (15-37); BILIRUBIN,TOTAL 0.3 mg/dL (0.2-1.0); CARBON DIOXIDE 28 mmol/L (21-32); CHLORIDE 98 mmol/L (98-107); CREATININE 0.5 mg/dL (0.6-1.3); GLUCOSE 166 mg/dL (74-106); PHOSPHOROUS 3.4 mg/dL (2.5-4.9); POTASSIUM 3.9 mmol/L (3.5-5.1); TOTAL PROTEIN, SERUM 7.4 g/dL (6.4-8.2); UREA NITROGEN, BLOOD 22 mg/dL (7-18)
[2021-08-14] MEDS: IV D5 1/2 NS 1000 ML 1,000 ML IV PRN (07:58)
[2021-08-14] MEDS: levETIRAcetam IV 1,000 MG in IV DEXTROSE 5% 100 ML IV SCH ×2 (08:03→20:51)
[2021-08-14] MEDS: PANTOPRAZOLE SODIUM 40 MG VIAL IV SCH ×2 (08:03→20:51)
[2021-08-14] MEDS: SODIUM HYPOCHLORITE 0.125% (QUARTER STRENGTH) 473 ML BOTTLE TP SCH ×2 (08:04→20:52)
[2021-08-14] MEDS: MUPIROCIN 2% OINT 22 GM TUBE NS SCH ×2 (08:04→20:53)
[2021-08-14] MEDS: TRIAMCINOLONE ACET 0.1% CREAM 15 GM TUBE TP SCH ×4 (08:05→20:54)
[2021-08-14] MEDS: NYSTATIN CREAM 30 GM TUBE TP SCH ×4 (08:05→20:54)
--- NOTE | 2021-08-14 09:48 | NUR ---
Contacted Dr. Simpson to inform him that patients family would like to speak to him before consenting to EGD. Relayed phone number to him to speak to the family.
[2021-08-14 11:13] LABS: *BILIRUBIN,URIN NEGATIVE (NEGATIVE); *CLARITY,URINE CLEAR (CLEAR); *COLOR,URINE YELLOW (YELLOW); *KETONES,URINE NEGATIVE (NEGATIVE); *UROBILINOGEN,URINE 0.2 E.U./dl (NORMAL); LEUKOCYTE ESTERASE ,URINE NEGATIVE (NEGATIVE); NITRITE, URINE NEGATIVE (NEGATIVE); PH,URINE 5.5 (5.0-8.0); UGLUCOSE NEGATIVE (NEGATIVE)
[2021-08-14 11:14] LABS: *BLOOD, URINE TRACE (NEGATIVE)
--- NOTE | 2021-08-14 11:25 | NUR ---
Notified Dr. santiago of having an episode of vtach. He will follow up tomorrow.
[2021-08-14 13:36] LABS: BACTERIA,URINE FEW /HPF (NONE SEEN); RBC,URINE 0-3 /HPF (0-3); SQUAMOUS EPITHELIAL CELL,UR FEW /HPF (NONE SEEN); WBC,URINE 0-3 /HPF (0-3)
[2021-08-14] MEDS ORDERED: EPINEPHRINE 1:10,000 1 MG/10 ML DISP.SYRIN ONE (15:22)
[2021-08-14] MEDS ORDERED: methylPREDNISolone SOD SUCC 125 MG/2 ML VIAL ONE (15:24)
--- NOTE | 2021-08-14 16:55 | NUR ---
Resumed care from recovery nurse. Patient in stable condition, no distress noted at this time.
--- NOTE | 2021-08-14 18:30 | NUR ---
Returned patient from CT scan of abdomen/pelvis and brain without incident.
--- NOTE | 2021-08-14 19:05 | NUR ---
Received patient in bed obtunded trach to mechanical ventilator, settings SIMV rate 16, pressure support 10, vT 500, Fio2 35%, PEEP 5. No signs of SOB or distress. SR on the monitor, no arrhythmias, no ectopy, BP stable. No signs of GI bleeding, No coffee grounds or fresh blood on aspiration of stomach contents, GT feeding to resume Glucerna 1.2 with a goal rate of 65mL/hr. Stool OB sample to be obtained. Patiño remains draining clear yellow urine. Awaiting CT head, abdomen, and pelvis results.
--- NOTE | 2021-08-14 19:22 | NUR ---
Report given to slot shift manager nurse Amrit RN. Patient in no apparent distress vitals WNL
[2021-08-14] MEDS ORDERED: GLUCERNA 1.2 1000ML LIQUID GT PRN (19:30)
--- NOTE | 2021-08-14 23:22 | NUR ---
PATIENT ON CONT ABBOTT VENT WITH SHILEY6 XLT TRACH IN PLACE AND SECURED, WITH CURRENT VENT SETTINGS, SIMV 16, 500ML, PEEP 5, PSV 10, FIO2 @35%, PT DOES ASSIST , AT TIMES, COUGHING AT TIMES, WITH HIGH PIP, SLIGHT PINKISH TINGE SECRETIONS, TRACH CARE DONE, CHECK CUFF, CHANGE HME, ALL VENT ALARMS GOOD, NO VENT CHANGES MADE, VENT PLUGGEDINTO RED WALL OUTLET, AMBU BAG AT BEDSIDE, NEB INLINE X 2 WITH XOPENEX , TOLL WELL. Janna MCGUIREP Addendum: 08/14/21 at 2325 by ARELY JIMENEZ RT Amended: Links added.
[2021-08-15] VITALS (25 sets, daily range): BP systolic 86–174; BP diastolic 56–102
[2021-08-15] MEDS: BLOOD SUGAR DIAGNOSTIC 1 EACH STRIP VI SCH ×4 (01:01→18:05)
[2021-08-15] MEDS: INSULIN REGULAR, HUMAN 300 UNIT/3 ML VIAL SQ PRN ×3 (01:03→18:07)
[2021-08-15] MEDS: LEVALBUTEROL HCL 1.25 MG/0.5 ML NEB NEB SCH ×4 (01:17→19:36)
[2021-08-15] MEDS: IV D5 1/2 NS 1000 ML 1,000 ML IV PRN ×2 (01:19→18:10)
[2021-08-15 05:30] LABS: MAGNESIUM 2.1 mg/dL (1.8-2.4); PHOSPHOROUS 3.2 mg/dL (2.5-4.9)
--- NOTE | 2021-08-15 06:05 | NUR ---
Patient remains obtunded on mechanical ventilator, settings remain SIMV rate 16, pressure support 10, vT 500, Fio2 35%, PEEP 5. No signs of SOB or distress. Remains SR on the monitor, no arrhythmias, no ectopy, BP stable. No signs of GI bleeding, No coffee grounds or fresh blood on aspiration of stomach contents, Resumed GT feeding currently running Glucerna 1.2 @40mL with a goal rate of 65mL/hr, tolerating well, no residuals. Stool OB sample obtained, Stool normal in color and consistency, no obvious evidence of GI bleed. Patiño remains draining clear yellow urine.
[2021-08-15 06:16] LABS: *OCCULT BLOOD STOOL NEGATIVE (NEGATIVE)
--- NOTE | 2021-08-15 07:10 | NUR ---
Received pt. obtunded, withdrawing and sheldon to touch. On mechanical ventilator shiley 6 xlt, on SIMV mode rate of 16, PSV10, TV500, 35% [id number] PEEP +5. no respiratory distress noted saturation of 100%. fever of 99.4. G-tube in place feeding to be resumed. Hemodynamically stable HR in the 80's and sbp of 135/82. Sacrum with wound no complications will continue to monitor.
[2021-08-15] MEDS: levETIRAcetam IV 1,000 MG in IV DEXTROSE 5% 100 ML IV SCH ×2 (08:39→20:36)
[2021-08-15] MEDS: PANTOPRAZOLE SODIUM 40 MG VIAL IV SCH ×2 (08:40→20:35)
[2021-08-15] MEDS: TRIAMCINOLONE ACET 0.1% CREAM 15 GM TUBE TP SCH ×4 (08:41→20:30)
[2021-08-15] MEDS: NYSTATIN CREAM 30 GM TUBE TP SCH ×4 (08:41→20:31)
[2021-08-15] MEDS: SODIUM HYPOCHLORITE 0.125% (QUARTER STRENGTH) 473 ML BOTTLE TP SCH ×2 (08:43→20:30)
--- NOTE | 2021-08-15 08:43 | NUR ---
RECEIVED PT ON CURRENT VENT SETTINGS. IN LINE MEDS GIVEN WITHOUT COMPLICATION. ORAL CARE GIVEN AND CHANGED TRACH VALENCIA AND GAUZE. ABG DONE.
[2021-08-15] MEDS: MUPIROCIN 2% OINT 22 GM TUBE NS SCH ×2 (08:44→20:30)
[2021-08-15 09:46] LABS: ALANINE AMINOTRANSFERASE 85 U/L (16-63); ALKALINE PHOSPHATASE 185 U/L (50-136); ASPARTATE AMINOTRANSFERASE 44 U/L (15-37); BILIRUBIN,TOTAL 0.3 mg/dL (0.2-1.0); CARBON DIOXIDE 27 mmol/L (21-32); CHLORIDE 100 mmol/L (98-107); CREATININE 0.5 mg/dL (0.6-1.3); GLUCOSE 138 mg/dL (74-106); POTASSIUM 3.9 mmol/L (3.5-5.1); TOTAL PROTEIN, SERUM 7.6 g/dL (6.4-8.2); UREA NITROGEN, BLOOD 13 mg/dL (7-18)
--- NOTE | 2021-08-15 10:00 | NUR ---
Patient examine by rehab services aide Dr. Jenkins, report given at this time informed of sinus bradycardia episodes, non-sustained, also reviewed ekg hx. reported yesterday. Orders to continue with care plan received.
--- NOTE | 2021-08-15 10:25 | NUR ---
Pulmo services, Dr. Peralta in the unit to follow up on pt. report given orders received see order hx.
[2021-08-15] MEDS: CEFEPIME HCL 1 G in IV DEXTROSE 5% 50 ML IV SCH ×2 (11:49→19:42)
[2021-08-15] MEDS: VANCOMYCIN IV 1,000 MG in IV DEXTROSE 5% 250 ML IV SCH (12:55)
[2021-08-15 14:44] LABS: HEMATOCRIT 36.3 % (36.7-47.1); MEAN CORPUSCULAR VOLUME 90.8 fL (73.0-96.2); PLATELET COUNT (AUTO) 181 K/uL (152-348)
[2021-08-15] MEDS: METOPROLOL TARTRATE 25 MG TABLET GT SCH ×2 (16:45→20:35)
[2021-08-15] MEDS ORDERED: ENALAPRILAT DIHYDRATE 1.25 MG/1 ML VIAL IV PRN (18:00)
--- NOTE | 2021-08-15 18:48 | NUR ---
Left pt. in bed obtunded, withdrawing and sheldon to touch. On mechanical ventilator shiley 6 xlt, on SIMV mode rate of 16, PSV10, TV500, 35% [id number] PEEP +5. no respiratory distress noted saturation of 100%. G-tube in place feeding at 50cc/hr tolerating well with no residuals. Hemodynamically stable HR in the 80's and sbp of 143/97 Sacrum with wound no complications will continue to monitor.
--- NOTE | 2021-08-15 19:36 | NUR ---
Patient received on [place]ales on settings of SIMV 16, PSV 10, VT 500, PEEP +5 and FIO2-35%. No resp. distress noted. Shiley 6 XLT distal is patent and secure; Adalgisa/Dylan Shiley 6 XLT distal and BVM are at bedside. Pt to be monitored throughout the shift, adm'd resp neb txs per MD orders and PRN SX. Canales alarm parameters have been checked and remain audible. Addendum: 08/15/21 at 2228 by ZAK DSOUZA RT Correction: Adalgisa/Dylan bergeron is a Shiley 6DCT due to no more available Shiley 6 XLT distal available/found in central supply
[2021-08-15] MEDS: PHENOBARBITAL 32.4 MG TABLET GT SCH (20:35)
[2021-08-16] VITALS (24 sets, daily range): BP systolic 50–162; BP diastolic 24–97
[2021-08-16] MEDS: BLOOD SUGAR DIAGNOSTIC 1 EACH STRIP VI SCH ×4 (00:27→17:54)
[2021-08-16] MEDS: INSULIN REGULAR, HUMAN 300 UNIT/3 ML VIAL SQ PRN ×2 (00:28→06:41)
[2021-08-16] MEDS: LEVALBUTEROL HCL 1.25 MG/0.5 ML NEB NEB SCH ×4 (00:43→19:35)
[2021-08-16] MEDS: VANCOMYCIN IV 1,000 MG in IV DEXTROSE 5% 250 ML IV SCH ×2 (02:19→13:12)
[2021-08-16 05:06] LABS: HEMATOCRIT 35.5 % (36.7-47.1); MEAN CORPUSCULAR HEMOGLOBIN 29.3 uug (23.8-33.4); MEAN CORPUSCULAR VOLUME 88.1 fL (73.0-96.2); PLATELET COUNT (AUTO) 240 K/uL (152-348)
[2021-08-16] MEDS: CEFEPIME HCL 1 G in IV DEXTROSE 5% 50 ML IV SCH ×3 (05:21→20:03)
[2021-08-16 05:23] LABS: ALANINE AMINOTRANSFERASE 88 U/L (16-63); ALKALINE PHOSPHATASE 177 U/L (50-136); ASPARTATE AMINOTRANSFERASE 36 U/L (15-37); BILIRUBIN,DIRECT 0.1 mg/dL (0.0-0.2); BILIRUBIN,TOTAL 0.3 mg/dL (0.2-1.0); CARBON DIOXIDE 29 mmol/L (21-32); CHLORIDE 97 mmol/L (98-107); CREATININE 0.5 mg/dL (0.6-1.3); GLUCOSE 187 mg/dL (74-106); MAGNESIUM 1.9 mg/dL (1.8-2.4); PHOSPHOROUS 3.1 mg/dL (2.5-4.9); POTASSIUM 3.9 mmol/L (3.5-5.1); TOTAL PROTEIN, SERUM 7.3 g/dL (6.4-8.2); UREA NITROGEN, BLOOD 10 mg/dL (7-18)
[2021-08-16 08:54] LABS: ABG BASE EXCESS 4.2 mmol/L; ABG HCO3 27.5 mmol/L; ABG PCO2 36.3 mmHg (35.0-45.0); ABG PH 7.497 (7.350-7.450); ABG PO2 153.3 mmHg (75.0-100.0); ABG SITE LEFT RADIAL; ABG TOTAL HEMOGLOBIN 12.1 G/dL (13.5-18.0); COHb 0.3 % (0.5-1.5); CPAP,BG 0 cmH20; MetHb 0.3 % (0.0-1.5); O2Hb 98.5 % (94.0-97.0); VENT MODE CPAP
[2021-08-16] MEDS: levETIRAcetam IV 1,000 MG in IV DEXTROSE 5% 100 ML IV SCH ×2 (09:04→20:05)
[2021-08-16] MEDS: PANTOPRAZOLE SODIUM 40 MG VIAL IV SCH ×2 (09:04→20:08)
[2021-08-16] MEDS: PHENOBARBITAL 32.4 MG TABLET GT SCH ×2 (09:04→20:08)
[2021-08-16] MEDS: METOPROLOL TARTRATE 25 MG TABLET GT SCH ×2 (09:07→20:07)
[2021-08-16] MEDS: MUPIROCIN 2% OINT 22 GM TUBE NS SCH ×2 (09:07→20:14)
[2021-08-16] MEDS: SODIUM HYPOCHLORITE 0.125% (QUARTER STRENGTH) 473 ML BOTTLE TP SCH ×2 (09:07→20:10)
[2021-08-16] MEDS: NYSTATIN CREAM 30 GM TUBE TP SCH ×4 (09:08→20:10)
[2021-08-16] MEDS: TRIAMCINOLONE ACET 0.1% CREAM 15 GM TUBE TP SCH ×4 (09:08→20:22)
--- NOTE | 2021-08-16 18:44 | NUR ---
Per Dr. Peralta plan for cool aerosol tomorrow if patient continues to tolerate cpap overnight. Dr. Arriaga came for consult reviewed CT scan and saw patient, no need for any treatments at this point. Dr. Haque held IV fluids patient tolerating tube feeds.
--- NOTE | 2021-08-16 21:00 | NUR ---
DUE MEDICATION GIVEN VIA PEG ,CRUSHED MEDICATION , HOB UP .
--- NOTE | 2021-08-16 23:30 | NUR ---
INCONTINENT OF STOOL SOFT BROWNISH IN COLOR BATH PATIENT CHANGED SOILED LINENS AND GOWN . HERRON CARE DONE AND TRACH CARE DONE .
[2021-08-17] VITALS (16 sets, daily range): BP systolic 97–149; BP diastolic 58–85
--- NOTE | 2021-08-17 00:30 | NUR ---
fingerstick done and follow insulin sliding scale . f/s =140
[2021-08-17] MEDS: BLOOD SUGAR DIAGNOSTIC 1 EACH STRIP VI SCH ×3 (00:54→12:31)
[2021-08-17] MEDS: INSULIN REGULAR, HUMAN 300 UNIT/3 ML VIAL SQ PRN ×3 (00:56→12:32)
[2021-08-17] MEDS: LEVALBUTEROL HCL 1.25 MG/0.5 ML NEB NEB SCH ×3 (01:01→14:28)
[2021-08-17] MEDS: VANCOMYCIN IV 1,000 MG in IV DEXTROSE 5% 250 ML IV SCH (01:38)
--- NOTE | 2021-08-17 01:46 | NUR ---
VANCOMYCIN LEVEL 14.0 - VANCOMYCIN IVP GIVEN SEE EMAR .
[2021-08-17] MEDS ORDERED: IV NORMAL SALINE 250 ML IV PRN (03:30)
[2021-08-17] MEDS: CEFEPIME HCL 1 G in IV DEXTROSE 5% 50 ML IV SCH ×2 (03:53→12:17)
--- NOTE | 2021-08-17 04:00 | NUR ---
am care done ,bath patient changed soiled linens and gown ,turned and reposition patient .
[2021-08-17 05:06] LABS: HEMATOCRIT 33.3 % (36.7-47.1); MEAN CORPUSCULAR VOLUME 87.5 fL (73.0-96.2); PLATELET COUNT (AUTO) 249 K/uL (152-348)
[2021-08-17 05:24] LABS: CARBON DIOXIDE 30 mmol/L (21-32); CHLORIDE 99 mmol/L (98-107); CREATININE 0.5 mg/dL (0.6-1.3); GLUCOSE 193 mg/dL (74-106); MAGNESIUM 1.9 mg/dL (1.8-2.4); PHOSPHOROUS 3.2 mg/dL (2.5-4.9); POTASSIUM 3.6 mmol/L (3.5-5.1); UREA NITROGEN, BLOOD 9 mg/dL (7-18)
[2021-08-17] MEDS: METOPROLOL TARTRATE 25 MG TABLET GT SCH (08:44)
[2021-08-17] MEDS: PANTOPRAZOLE SODIUM 40 MG VIAL IV SCH (08:45)
[2021-08-17] MEDS: levETIRAcetam IV 1,000 MG in IV DEXTROSE 5% 100 ML IV SCH (08:45)
[2021-08-17] MEDS: PHENOBARBITAL 32.4 MG TABLET GT SCH (08:45)
[2021-08-17] MEDS: TRIAMCINOLONE ACET 0.1% CREAM 15 GM TUBE TP SCH ×2 (08:46→08:47)
[2021-08-17] MEDS: NYSTATIN CREAM 30 GM TUBE TP SCH ×2 (08:46→08:48)
[2021-08-17] MEDS: SODIUM HYPOCHLORITE 0.125% (QUARTER STRENGTH) 473 ML BOTTLE TP SCH (08:47)
[2021-08-17] MEDS: MUPIROCIN 2% OINT 22 GM TUBE NS SCH (08:49)
[2021-08-17 09:01] LABS: ABG BASE EXCESS 6.2 mmol/L; ABG HCO3 29.8 mmol/L; ABG PCO2 39.3 mmHg (35.0-45.0); ABG PH 7.498 (7.350-7.450); ABG PO2 82.5 mmHg (75.0-100.0); ABG SITE RIGHT RADIAL; COHb 0.3 % (0.5-1.5); MetHb 0.2 % (0.0-1.5); VENT MODE Mask - C/A 30%
[2021-08-17] MEDS ORDERED: ACETAMINOPHEN 650 MG/20.3 ML LIQUID UDC GT PRN (09:15)
[2021-08-17] MEDS ORDERED: VANCOMYCIN IV 1,250 MG in IV DEXTROSE 5% 250 ML IV SCH (10:00)
[2021-08-17] MEDS ORDERED: RXVAN XX (15:22)
[2021-08-17] MEDS ORDERED: Glucerna 1.2 GT (15:22)
[2021-08-17] MEDS ORDERED: CEFE1FRO IV (15:22)
[2021-08-17] MEDS ORDERED: PANT40TA2 GT (15:28)
--- NOTE | 2021-08-17 15:36 | NUR ---
Called report to Alysia in Subacute. Patient is to be transferred to Room 424a.
--- NOTE | 2021-08-17 15:39 | NUR ---
Contacted Patients Father Arden to notify him that patient will be transferred back to subacute within the hour.
[2021-08-17] MEDS ORDERED: SIMETHICONE 40 MG/0.6 ML, 30ML BOTTLE MC ONE (15:49)
[2021-08-17] MEDS ORDERED: LIDOCAINE-MPF 2% 5 ML VIAL IJ ONE (15:49)
[2021-08-17] MEDS ORDERED: PROPOFOL 200 MG/20 ML BOTTLE IV ONE (15:49)
--- NOTE | 2021-08-17 15:50 | NUR ---
pt discharged to [facility], report given to nurse. pt vitals WNL, pt on aerosol tach setting at 30%, no signs of distress, no signs of pain. pt transferred to subacute floor, pt father notified of transfer. Exit care instructions given and sent with patient.
== END 2021-08-17 15:50 | DRG 241 ==
LOC: ER 08:46 → CCU 10:38
PROVIDERS: ADMIT Internal Medicine; ATTEND Internal Medicine
PROC: 5A1945Z Respiratory Ventilation, 24-96 Consecutive Hours (ICD-10-PCS; 2021-08-13)
PROC: 0DB68ZX Excision of Stomach, Via Natural or Artificial Opening Endoscopic, Diagnostic (ICD-10-PCS; principal; 2021-08-14)
DX: K29.71 Gastritis, unspecified, with bleeding (principal); J96.21 Acute and chronic respiratory failure with hypoxia; G93.49 Other encephalopathy; E43 Unspecified severe protein-calorie malnutrition; K20.91 Esophagitis, unspecified with bleeding; G93.1 Anoxic brain damage, not elsewhere classified; D68.59 Other primary thrombophilia; L89.159 Pressure ulcer of sacral region, unspecified stage; J44.9 Chronic obstructive pulmonary disease, unspecified; Z93.0 Tracheostomy status; Z99.11 Dependence on respirator [ventilator] status; Z86.74 Personal history of sudden cardiac arrest; I48.0 Paroxysmal atrial fibrillation; D64.9 Anemia, unspecified; D75.839 Thrombocytosis, unspecified; E78.5 Hyperlipidemia, unspecified; F32.9 Major depressive disorder, single episode, unspecified; F41.9 Anxiety disorder, unspecified; G40.909 Epilepsy, unspecified, not intractable, without status epilepticus; I10 Essential (primary) hypertension; I70.0 Atherosclerosis of aorta; Z20.822 Contact with and (suspected) exposure to COVID-19; Z87.891 Personal history of nicotine dependence; Z86.73 Personal history of transient ischemic attack (TIA), and cerebral infarction without residual deficits; Z79.4 Long term (current) use of insulin; R13.10 Dysphagia, unspecified; Z88.0 Allergy status to penicillin; Z93.1 Gastrostomy status; Z68.26 Body mass index [BMI] 26.0-26.9, adult; Z22.322 Carrier or suspected carrier of Methicillin resistant Staphylococcus aureus; Z87.01 Personal history of pneumonia (recurrent); I47.1 Supraventricular tachycardia; J96.22 Acute and chronic respiratory failure with hypercapnia; E11.69 Type 2 diabetes mellitus with other specified complication; Z79.899 Other long term (current) drug therapy; M46.28 Osteomyelitis of vertebra, sacral and sacrococcygeal region
CPT/HCPCS: 36415; 36600; 70030-TC; 70450; 71045; 83550; 83605; 83735; 84100; 85025; 85730; 86900; 86901; 87040; 87086; 88313-TC; 88342; 93005; 94002; 94003; 94640; A4217; A6209; C9113; G0378; J0171; J0692; J1815; J1953; J2060; J2930; J3370; J3490; J7050; J7060

== ENCOUNTER 2021-10-09 06:09 | Inpatient (IN) | payer MEDICAID ==
[~2021-10-09] VITALS: Ht 162.6 cm; Wt 59.4 kg
[2021-10-09] VITALS (50 sets, daily range): BP systolic 47–171; BP diastolic 16–119
--- NOTE | 2021-10-09 05:50 | NUR ---
Pt transferred to ER, ambu-bag used as pt is unstable with agonal breathing. Both RT's assisted with nurse and supervisor shop. ABG was done per md order, Dr Diaz dara the blood via femoral. Results reported to Dr. Diaz. Changed trach to Shiley 6 XLT distal cuffed trach, and subsequently placed the pt on vent per Dr Bethea with ordered settings of AC 18, VT 550, FiO2 70%. Suctioned pt with small amount of think yellowish secretions. Will continue to monitor pt and endorse to day shift incoming RT.
[~2021-10-09 06:09] MED LIST changes: -ARGI1PAC GT; -BACL10TA GT; +CEFE1FRO IV; +Glucerna 1.2 GT; -HYDR-3972 GT; -HYDR237S13 TP; +INSU100V28 SQ; +LEVA1.2528 IH; +MINE3.5O44 EACHEYE; +MUPI22OI2 NS; +PANT40TA2 GT; -PRED20TA GT; +RXVAN XX; +TRIA15CR2 TP; -[UNRECOGNIZED DRUG - OTHER] EACHEYE
--- NOTE | 2021-10-09 06:09 | NUR ---
1 amp of epinephrine IVP given per Dr Diaz order.
[2021-10-09] MEDS ORDERED: CALCIUM CHLORIDE 1 GM/10 ML DISP.SYRIN IVP ONE (06:15)
[2021-10-09] MEDS ORDERED: EPINEPHRINE AMP 1 MG in IV DEXTROSE 5% 250 ML IV ONE ×2 (06:15→06:30)
[2021-10-09] MEDS ORDERED: ATROPINE SULFATE 1 MG/10 ML DISP.SYRIN IV ONE ×2 (06:15)
[2021-10-09] MEDS ORDERED: IV NORMAL SALINE 1000 ML BAG IV ONE ×2 (06:15→07:00)
--- NOTE | 2021-10-09 06:16 | NUR ---
Paged dr Nazario(retail cashier associate), Dr Diaz talked to and orders given.
[2021-10-09 06:20] LABS: HEMATOCRIT 33.6 % (36.7-47.1); MEAN CORPUSCULAR VOLUME 90.3 fL (73.0-96.2); PLATELET COUNT (AUTO) 519 K/uL (152-348)
--- NOTE | 2021-10-09 06:22 | NUR ---
1 Amop of Epinephrine IVP given per Dr Diaz order.
[2021-10-09 06:24] LABS: CREATININE 1.2 mg/dL (0.6-1.3)
[2021-10-09 06:26] LABS: POTASSIUM 7.3 mmol/L (3.5-5.1)
[2021-10-09] MEDS ORDERED: INSULIN REGULAR, HUMAN 300 UNIT/3 ML VIAL IV ONE ×2 (06:30→18:00)
[2021-10-09] MEDS ORDERED: DOPamine IV DRIP 400 MG/250ML 250 ML IV PRN ×4 (06:30→10:15)
[2021-10-09] MEDS ORDERED: DEXTROSE 50% 50 ML DISP.SYRIN IV ONE ×2 (06:30→18:00)
[2021-10-09] MEDS ORDERED: DOPamine IV DRIP 400 MG/250ML 250 ML ONE ×2 (06:30→09:49)
[2021-10-09] MEDS ORDERED: SODIUM BICARBONATE 8.4% 50 MEQ/50 ML DISP.SYRIN IV ONE ×4 (06:30→23:04)
[2021-10-09 06:33] LABS: ABG BASE EXCESS -14.4 mmol/L; ABG HCO3 10.8 mmol/L; ABG PH 7.272 (7.350-7.450); ABG PO2 246.5 mmHg (75.0-100.0); ABG SITE RIGHT FEMORAL; ABG TOTAL HEMOGLOBIN 11.1 G/dL (13.5-18.0); COHb 0.3 % (0.5-1.5); MetHb 0.2 % (0.0-1.5)
[2021-10-09 06:37] LABS: BILIRUBIN,DIRECT 0.1 mg/dL (0.0-0.2); BILIRUBIN,TOTAL 0.5 mg/dL (0.2-1.0)
--- NOTE | 2021-10-09 06:40 | NUR ---
placed pacing pad on pt, pacing @ 70 b/m per Dr Diaz.
[2021-10-09] MEDS ORDERED: NOREPINEPHRINE BITARTRATE 4 MG/4 ML VIAL IV ONE (06:56)
[2021-10-09 07:28] LABS: THYROID STIMULATING HORMONE 6.633 mIU/mL (0.358-3.740)
--- NOTE | 2021-10-09 07:28 | NUR ---
Report given to Lillian samaniego.
--- NOTE | 2021-10-09 07:30 | NUR ---
English Professor assumes care: patient is on external pacemaker, set@70ppm & 120mA, trach to ventilator at AC, rate=18/min, FiO2= 70%, WK=417, PEEP=0. 2 drips of DOPAMINE@30mcg/kg/min and LEVOPHED@0.25mcg/kg/min thru right external jugular g18 angiocatheter, for ICU/CCU admission, pending callback from [facility]
[2021-10-09] MEDS ORDERED: NOREPINEPHRINE BITARTRATE 8 MG in IV NORMAL SALINE 242 ML IV PRN ×2 (07:45→10:15)
[2021-10-09] MEDS ORDERED: BACL10TA PO (08:05)
[2021-10-09] MEDS ORDERED: OMEP20TA20 PO (08:05)
[2021-10-09] MEDS ORDERED: HYDR-3972 GT (08:05)
[2021-10-09] MEDS ORDERED: [UNRECOGNIZED DRUG - CODE] SQ (08:05)
[2021-10-09] MEDS ORDERED: HYDR237S13 TP (08:05)
[2021-10-09] MEDS ORDERED: DEXT50VI3 IV (08:05)
--- NOTE | 2021-10-09 08:16 | NUR ---
0730am: EKG done & handed to Dr Bethea.
[2021-10-09] MEDS ORDERED: PIPERACILLIN SODIUM/TAZOBACTAM 4.5 G in IV DEXTROSE 5% 50 ML IV SCH (09:00)
[2021-10-09] MEDS ORDERED: PANTOPRAZOLE SODIUM 40 MG VIAL IV SCH ×2 (09:00→09:35)
[2021-10-09] MEDS ORDERED: ACETAMINOPHEN 650 MG SUPP.RECT RC PRN (09:00)
[2021-10-09] MEDS ORDERED: IV LACTATED RINGERS SOLUTION 1,000 ML IV PRN (09:00)
[2021-10-09] MEDS ORDERED: SODIUM POLYSTYRENE SULFONATE 15 G/60 ML LIQUID UDC GT ONE ×3 (09:00→23:30)
[2021-10-09] MEDS ORDERED: Z GUARD REMEDY PASTE 57 GM TUBE TOP PRN (09:00)
[2021-10-09] MEDS ORDERED: ONDANSETRON 4 MG/2 ML VIAL IV PRN (09:00)
--- NOTE | 2021-10-09 09:08 | NUR ---
Pending insurance authorization to admit this patient per ER registration [email or web address]. Respiratory therapist Len notified re: admission to CCU/ICU
[2021-10-09] MEDS ORDERED: IV NORMAL SALINE 250 ML IV ONE (09:15)
[2021-10-09] MEDS ORDERED: IOHEXOL 350 100 ML INFUS..BTL ONE (09:15)
[2021-10-09] MEDS ORDERED: SWABABLE VALVE TRANSFER SET EA MC ONE (09:15)
[2021-10-09] MEDS ORDERED: PANTOPRAZOLE SODIUM 40 MG VIAL ONE (09:25)
[2021-10-09] MEDS ORDERED: SODIUM POLYSTYRENE SULFONATE 15 G/60 ML LIQUID UDC ONE (09:25)
--- NOTE | 2021-10-09 09:32 | NUR ---
* pending IV Zosyn medicine from pharmacy@this time.
--- NOTE | 2021-10-09 09:34 | NUR ---
"OK to admit" per ER registration [place], pending roll-over papers from [place]@this time.
--- NOTE | 2021-10-09 09:46 | NUR ---
Patient left ER with 2 resp therapist & myself in critical condition.
--- NOTE | 2021-10-09 10:00 | NUR ---
patient brought up to the unit from ER on external pacemaker pacing at 70 100%. patient maxed on dopamine drip at 30mcg. and levophed at .24 mcg/kg. patient is trach to vent with settings ac 18 550 no peep and 70% fio2. GT is clamped. thomas in place. skin has pressure ulcer on sacrum. no pictures taken at this time due to patient being unstable. patient presents with mottled skinon extremities. patient does not have central line placed only right IJ 18 guage. doctor medina and POLE MAKER roa in the unit to see patient.
--- NOTE | 2021-10-09 11:30 | NUR ---
at bedside turned down pacer to 30 rate and wants to go up on pressors for rate above 40's.
[2021-10-09] MEDS: CEFEPIME HCL 1 G in IV DEXTROSE 5% 50 ML IV SCH ×2 (11:42→19:37)
--- NOTE | 2021-10-09 11:45 | NUR ---
patient in 2nd degree block rate sustaining in 30's informed Dr. Valdez. Ok to place pacer at 60's
[2021-10-09] MEDS ORDERED: VANCOMYCIN IV 1,000 MG in IV DEXTROSE 5% 250 ML IV SCH (12:00)
--- NOTE | 2021-10-09 13:45 | NUR ---
At bedside patient had projectile vomiting large amount soiled IV line dressing and was dislodged. placing new line patient went into [facility] and converted back on his own.
--- NOTE | 2021-10-09 14:00 | NUR ---
Bar in the unit to place PICC line. While in the room patient went into vtach and torsades. Patient given magnesium 1mg IVP at bedside. called by Bar bates to turn back up external pacers.
--- NOTE | 2021-10-09 15:00 | NUR ---
Azam Dinero spoke to Dr. Valdez if patient goes to [facility] again may give amiodarone.
[2021-10-09] MEDS: DOPamine IV DRIP 800 MG/250ML 250 ML IV PRN (16:38)
[2021-10-09 16:50] LABS: CREATININE 1.7 mg/dL (0.6-1.3); POTASSIUM 7.1 mmol/L (3.5-5.1)
[2021-10-09] MEDS: NOREPINEPHRINE BITARTRATE 32 MG in IV NORMAL SALINE 218 ML IV PRN (17:09)
[2021-10-09] MEDS ORDERED: CALCIUM GLUCONATE IV 1 GM in IV NORMAL SALINE 100 ML IV ONE (18:00)
[2021-10-09] MEDS ORDERED: AMIODARONE HCL IV 450 MG in IV DEXTROSE 5% 250 ML IV PRN ×2 (18:00→18:30)
--- NOTE | 2021-10-09 18:00 | NUR ---
patient went into [facility] again called Azam Dinero for dosage on amiodarone or if it will be per protocol. patient again converted back on his own. but ordered amiodarone per protocol if patient goes into [facility] again.
--- NOTE | 2021-10-09 18:05 | NUR ---
PT RECEIVED TRACH TO VENT ON CMV. AGONAL RESPIRATIONS NOTED THROUGHOUT SHIFT. RN IS AWARE. SUCTION PRN. WILL CONTINUE TO MONITOR.
[2021-10-09] MEDS ORDERED: AMIODARONE HCL IV 150 MG in IV DEXTROSE 5% 100 ML IV ONE (18:30)
[2021-10-09] MEDS ORDERED: SODIUM BICARBONATE 8.4% 150 MEQ in IV D5W 1000ML 1,000 ML IV PRN (20:45)
[2021-10-09] MEDS ORDERED: HEPARIN SODIUM,PORCINE 5,000 UNITS/ML VIAL SQ SCH (21:00)
[2021-10-09] MEDS ORDERED: SODIUM BICARBONATE 8.4% 50 MEQ/50 ML DISP.SYRIN IV STA (22:05)
--- NOTE | 2021-10-09 22:15 | NUR ---
Updated Bridger Dinero N.P. Jose Blackwood at bedside from MARISELA. Janna Chaidez. @ bedside. Telephone Mr. Molina / update; promised to call again @ 0100 hrs. Pupils dilated & fixed @ 7 mm. Unresponsive, no gag or cough. Skin slightly cyanotic & mottled. No urine output. Con't: external pacemaker MA 120, rate 68. Labs drawn.
[2021-10-09 22:39] LABS: CARBON DIOXIDE 17 mmol/L (21-32); CHLORIDE 99 mmol/L (98-107); CREATININE 2.2 mg/dL (0.6-1.3); GLUCOSE 221 mg/dL (74-106); UREA NITROGEN, BLOOD 53 mg/dL (7-18)
[2021-10-09 22:41] LABS: POTASSIUM 6.3 mmol/L (3.5-5.1)
[2021-10-09 22:54] LABS: ALKALINE PHOSPHATASE 207 U/L (50-136); TOTAL PROTEIN, SERUM 6.2 g/dL (6.4-8.2)
[2021-10-09 23:23] LABS: ALANINE AMINOTRANSFERASE 16 U/L (16-63); ASPARTATE AMINOTRANSFERASE < 5 U/L (15-37)
[2021-10-09] MEDS ORDERED: PHENYLEPHRINE IV 50 MG in IV NORMAL SALINE 245 ML IV STA (23:23)
[2021-10-09] MEDS ORDERED: IV NS 1000 ML 1,000 ML IV ONE ×2 (23:30)
[2021-10-09] MEDS ORDERED: PHENYLEPHRINE IV 50 MG in IV NORMAL SALINE 245 ML IV PRN (23:30)
[2021-10-09] MEDS ORDERED: PHENYLEPHRINE 10 MG/1 ML VIAL ONE (23:46)
[2021-10-10] MEDS ORDERED: VANCOMYCIN IV 500 MG in IV DEXTROSE 5% 100 ML IV SCH
[2021-10-10] MEDS ORDERED: EPINEPHRINE AMP 5 MG in IV NORMAL SALINE 245 ML IV PRN (00:15)
--- NOTE | 2021-10-10 00:22 | NUR ---
Family members (daughter and son) at bedside, report given c/o Matheus TAPIA.
[2021-10-10] MEDS: DOPamine IV DRIP 800 MG/250ML 250 ML IV PRN (00:40)
--- NOTE | 2021-10-10 00:43 | NUR ---
Family members (parents) at bedside, report given c/o WILLIE Jarvis.
--- NOTE | 2021-10-10 00:45 | NUR ---
PATIENT ON CONT ABBOTT VENT WITH TRACH IN PLACE AND SECURED, WITH SETTINGS, A. Addendum: 10/10/21 at 0048 by ARELY FAITH Amended: Links added.
--- NOTE | 2021-10-10 00:46 | NUR ---
PATIENT ON CONT ABBOTT VENT WITH TRACH IN PLACE AND SECURED, WITH VENT SETTINGS, A/C 18, 55OML, 100%, PT DOES ASSIST WITH ABG BREATHING, VERY WEAK COUGH REFLEX, SUCTIONED VERY LIGHT PALE YELL TINGE SECRETIONS, AND ORAL SUCTION, CHECK CUFF, WITH LOW PERFUSION, HARD TO GET PULSE OXY READINGS AT TIMES. Janna MCGUIREP Addendum: 10/10/21 at 0048 by ARELY JIMENEZ RT Amended: Links added.
--- NOTE | 2021-10-10 00:51 | NUR ---
Family member (brother) at bedside, report given c/o WILLIE Jarvis.
[2021-10-10 01:00] VITALS: BP 94/72
--- NOTE | 2021-10-10 01:00 | NUR ---
Father decided to terminate all healthcare with his son. Kenny Chen, BENEFITS CONSULTANT made aware. Called [facility] and spoke with Morris, reported patient on ventilator, Case#[id number], instructed to call back once patient is .
[2021-10-10] MEDS ORDERED: EPINEPHRINE 1 MG/1 ML AMP ONE (01:12)
[2021-10-10 01:15] VITALS: BP 94/56
[2021-10-10 01:30] VITALS: BP 97/73
[2021-10-10 01:45] VITALS: BP 93/60
[2021-10-10 02:00] VITALS: BP 96/56
[2021-10-10 02:08] VITALS: BP 96/56
[2021-10-10] MEDS: NOREPINEPHRINE BITARTRATE 32 MG in IV NORMAL SALINE 218 ML IV PRN (02:08)
[2021-10-10] MEDS ORDERED: NOREPINEPHRINE BITARTRATE 4 MG/4 ML VIAL IV ONE (02:08)
--- NOTE | 2021-10-10 02:35 | NUR ---
TERMINAL EXTUBATION OFF VENT @ 02:30 , BILL Dumont NOTIFIED . Janna JIMENEZ DESIZING MACHINE OFFBEARER Addendum: 10/10/21 at 0236 by ARELY JIMENEZ RT Amended: Links added.
--- NOTE | 2021-10-10 02:40 | NUR ---
Patient apneic for 5 minutes. Pupils fixed and dilated. No audible heart tones and breath sounds for 1 minute. No palpable pulses and corneal reflexes for 1 minute. Pronounced at 0240. Called mortuary to bead picker body.
--- NOTE | 2021-10-10 02:45 | NUR ---
Post mortem care was done, name tags attached, body placed on body bag. Awaiting for mortuary to pick and shovel man.
--- NOTE | 2021-10-10 03:30 | NUR ---
Called [facility] and spoke with Rogers Choudhary of patient's and mentioned, "The case is closed."
--- NOTE | 2021-10-10 03:58 | NUR ---
Body was picked up by mortuary c/o [employer]
--- NOTE | 2021-10-10 04:15 | NUR ---
Called to inform father: time of & picked up by mortuary.
== END 2021-10-10 03:58 | DRG 720 ==
LOC: ER 06:15 → CCU 09:16
PROVIDERS: ADMIT Nurse Practitioner Family; ATTEND Nurse Practitioner Family
PROC: B54BZZA Ultrasonography of Right Lower Extremity Veins, Guidance (ICD-10-PCS; principal; 2021-10-09)
PROC: 06HM33Z Insertion of Infusion Device into Right Femoral Vein, Percutaneous Approach (ICD-10-PCS; principal; 2021-10-09)
PROC: 5A1935Z Respiratory Ventilation, Less than 24 Consecutive Hours (ICD-10-PCS; principal; 2021-10-09)
DX: A41.9 Sepsis, unspecified organism (principal); J96.21 Acute and chronic respiratory failure with hypoxia; R65.21 Severe sepsis with septic shock; G93.41 Metabolic encephalopathy; I21.4 Non-ST elevation (NSTEMI) myocardial infarction; L89.159 Pressure ulcer of sacral region, unspecified stage; E11.69 Type 2 diabetes mellitus with other specified complication; I44.2 Atrioventricular block, complete; G40.909 Epilepsy, unspecified, not intractable, without status epilepticus; Z66 Do not resuscitate; E78.5 Hyperlipidemia, unspecified; G82.20 Paraplegia, unspecified; G93.1 Anoxic brain damage, not elsewhere classified; I10 Essential (primary) hypertension; E87.5 Hyperkalemia; J44.9 Chronic obstructive pulmonary disease, unspecified; I47.2 Ventricular tachycardia; J96.22 Acute and chronic respiratory failure with hypercapnia; Z93.0 Tracheostomy status; Z88.5 Allergy status to narcotic agent; Z86.73 Personal history of transient ischemic attack (TIA), and cerebral infarction without residual deficits; Z93.1 Gastrostomy status; Z86.74 Personal history of sudden cardiac arrest; Z22.322 Carrier or suspected carrier of Methicillin resistant Staphylococcus aureus; M46.28 Osteomyelitis of vertebra, sacral and sacrococcygeal region; Z88.0 Allergy status to penicillin; Z95.0 Presence of cardiac pacemaker; I48.91 Unspecified atrial fibrillation; Z20.822 Contact with and (suspected) exposure to COVID-19
CPT/HCPCS: 36415; 36600; 51702; 70030-TC; 71045; 83605; 83735; 84132; 84443; 85025; 85730; 87040; 93005; 94002; A4663; C9113; G0378; J0171; J0282; J0610; J0692; J1265; J1644; J1815; J2370; J3370; J3490; J7030; J7040; J7050; J7060; J7070; Q9967